=== PATIENT | female | born 1950 | race Caucasian/White ===

== ENCOUNTER 2023-01-21 09:19 | Inpatient (IN) | payer MEDICARE, MEDICAID, SELFPAY ==
[2023-01-21] VITALS (84 sets, daily range): BP systolic 131–198; BP diastolic 82–115; PULSE 90–140; RESP 11–25; TEMP 36.4–37; O2SAT 93–100; BMI 25.3
--- NOTE | 2023-01-21 | ECHO_ITS ---
Patient Info Name: Aggie Donald Age: 73 years : 1950 Gender: Female Ht: 65 in Wt: 152 lbs BSA: 1.79 m2 HR: 102 bpm BP: 196 / 101 mmHg Heart Rhythm: Sinus Rhythm, Tachycardia Technical Quality: Fair Exam Date: 01/21/2023 3:29 PM Exam Location: [facility]am Room: [facility] ED 6 Patient Status: Emergency Admit Date: 01/21/2023 Staff Ordering Physician: Trista Downey PA-C Vice President Consulting Services: Bibi Fu RDCS Attending Provider: Trista Downey PA-C Referring Physician: Shayan GALLARDO; Exam Type: CA echo doppler w bubble study Study Info Indications - RENAL INFARCT POS TROP APHASIA Complete two-dimensional, color flow and Doppler transthoracic echocardiogram is performed with agitated saline. Contrast/Agitated Saline Contrast/Ag. Saline: Agitated Saline Amount: 20.00 ml Existing IV Access: Yes IV Access Condition: patent with no signs of infiltration Summary 1. Left ventricular chamber dimension is normal. 2. Left ventricular systolic function is hyperdynamic, estimated at >70%. 3. There is mildly increased left ventricular wall thickness. 4. The left ventricular diastolic function is indeterminate. 5. No evidence for right to left shunt with color flow Doppler nor with injection of agitated saline with or without Valsalva. Left Ventricle Left ventricular chamber dimension is normal. Left ventricular systolic function is hyperdynamic, estimated at >70%. There is mildly increased left ventricular wall thickness. The left ventricular diastolic function is indeterminate. Right Ventricle Right ventricular chamber dimension is normal. Right ventricular systolic function is normal. Left Atria Left atrial chamber dimension is normal. Right Atria Right atrial chamber dimension is normal. Atrial Septum No evidence for right to left shunt with color flow Doppler nor with injection of agitated saline with or without Valsalva. Aortic Valve The aortic valve is trileaflet. There is mild aortic valve sclerosis. There is no aortic valve stenosis. There is no aortic valve regurgitation. Pulmonic Valve The pulmonic valve is not well visualized. There is trace pulmonic regurgitation. Mitral Valve The mitral valve has thickened leaflets. There is trace mitral valve regurgitation. The mitral valve annulus is moderately calcified. Tricuspid Valve The tricuspid valve leaflets are normal. There is mild tricuspid valve regurgitation. No pulmonary hypertension, estimated pulmonary arterial systolic pressure is 32 mmHg. Pericardium/Pleural The pericardium appears epicardial fat pad. There is small pericardial effusion. Left pleural effusion. Inferior Vena Cava Normal inferior vena cava with >50% collapse upon inspiration consistent with normal right atrial pressure, 5 mmHg. Aorta The aortic root size at the sinus of Valsalva is normal. Left Ventricular Outflow Tract Name Value Normal LVOT 2D LVOT Diameter 2.0 cm LVOT Doppler LVOT Peak Gradient 5 mmHg LVOT Mean Gradient 3 mmHg LVOT VTI 20 cm LVOT VTI/AV VTI Ratio
--- NOTE | ~2023-01-21 | CT_ITS ---
EXAMINATION: CT brain wo con DATE: 01/21/2023 10:20 INDICATION: Aphasia. Weakness. Altered mental status. TECHNIQUE: Computed tomography (CT) of the head was performed without intravenous contrast. The mA wa s adjusted according to patient size. Iterative reconstruction technique was employed. The dose-lengt h product was 605.33 mGy-cm. COMPARISON: None FINDINGS: There is an old infarct in right frontal lobe. There is an old infarct in posterior left fr ontal lobe. There are scattered areas of low attenuation in the cerebral white matter. There is no in tracranial hemorrhage, acute infarction, or abnormal intracranial mass lesion. The ventricles are nor mal in size. There is mucosal thickening in right sphenoid sinus. The mastoid air cells are normal. T he orbits are normal. IMPRESSION: 1. Old infarcts involving the frontal lobes. 2. Mild nonspecific cerebral white matter disease, which likely represents chronic small vessel ische danial disease. Reviewed, dictated and finalized at location A. IMPRESSION: 1. Old infarcts involving the frontal lobes. 2. 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
--- NOTE | ~2023-01-21 | CT_ITS ---
EXAMINATION: CTA brain carotid DATE: 01/21/2023 17:52 INDICATION: expressive aphasia TECHNIQUE: Computed tomographic angiography (CTA) of the head was performed with 100 mL Omnipaque-350 intravenous contrast. Automated exposure control and iterative reconstruction technique were employe d. The dose-length product was 1172.54 mGy-cm. Maximum intensity projection and volume rendered 3D-re constructions were created by the technologist on a separate workstation. COMPARISON: CT brain, 01/21/2023. FINDINGS: CTA HEAD: No large vessel occlusion, aneurysm, high flow vascular malformation, nidus or extravasation. Atheros clerotic calcification in the cavernous carotids, without significant stenosis. Patent cerebral veins CTA NECK: Aortic arch and proximal great vessels: Mild atherosclerotic calcifications at the visualized aortic arch and proximal great vessels. Right common carotid, carotid bifurcation, and internal carotid artery: No plaque.There is 0% stenosi s of the proximal right internal carotid artery relative to normal distal artery lumen diameter (NASC ET criteria). Left common carotid, carotid bifurcation, and internal carotid artery: No plaque.There is 0% stenosis of the proximal left internal carotid artery relative to normal distal artery lumen diameter (NASCET criteria). Vertebral arteries: No significant plaque or stenosis. Other findings: Upper and mid esophageal wall thickening. Paraseptal emphysematous change. Biapical p leural scar. Right sphenoid sinus mucosal thickening. Right inferior maxillary retention cyst or poly p. Multiple periapical lucencies. Standard changes in the cervical spine. IMPRESSION: No acute large vessel infarct. No severe carotid or vertebral artery stenosis. Esophageal wall thicke kanu, consider referral for endoscopy. Periodontal disease. Reviewed, dictated and finalized at location K. IMPRESSION: No acute large vessel infarct. No severe carotid or vertebral artery stenosis. Esophageal wall thickening, consider referral for endoscopy. Periodontal diseas e.
--- NOTE | ~2023-01-21 | MR_ITS ---
EXAMINATION: MR brain/brain stem wo/w con DATE: 01/22/2023 10:47 INDICATION: Expressive aphasia. Altered mental status. TECHNIQUE: Magnetic resonance imaging (MRI) of the brain and brainstem was performed without and with 13 mL MultiHance intravenous contrast. COMPARISON: Head CT 01/21/2023 FINDINGS: There is an old infarct involving right frontal lobe. There is an old infarct in left occip ital lobe. There is an old infarct involving posterior left frontal lobe. There are scattered areas o f nonspecific increased T2-weighted signal intensity in the cerebral white matter, which is within no rmal limits for the patient's age. There is no intracranial hemorrhage, acute infarction, or abnormal intracranial mass lesion. The ventricles are normal in size. There is mild mucosal thickening in sph enoid sinus. The orbits are normal. The mastoid air cells are normal. IMPRESSION: 1. Old infarcts involving the frontal lobes and left occipital lobe. Reviewed, dictated and finalized at location A.
--- NOTE | ~2023-01-21 | CT_ITS ---
EXAMINATION: CTA chest PE abdomen pel DATE: 01/21/2023 11:37 INDICATION: Low abdominal pain. Nausea and vomiting. Tachycardia. TECHNIQUE: Computed tomography angiography (CTA) of the chest was performed with 100 mL Omnipaque-350 intravenous contrast timed to evaluate the pulmonary arteries. Coronal maximum intensity projection 3D-reconstructions were created by the technologist. Computed tomography (CT) of the abdomen and pelv is was performed with intravenous contrast. Automated exposure control and iterative reconstruction t echnique were employed. The dose-length product was 691.14 mGy-cm. COMPARISON: None. FINDINGS: CTA chest: There is mild emphysema. Calcified right lung nodules and calcified right hilar lymph node s are consistent with old granulomatous disease. No pleural effusion. The heart size is normal. No pe ricardial effusion. There is no pulmonary embolus. There is mild thoracic spondylosis. CT abdomen and pelvis: The liver is normal. There is a gallstone in the gallbladder, which is normal in size. Calcifications in the spleen are consistent with old granulomatous disease. The pancreas, ad renal glands, are normal. The kidneys demonstrate striated nephrograms with associated mild volume lo ss. There is calcified atherosclerosis of the aorta and many of the other arteries. There is divertic ulosis of the colon without evidence of diverticulitis. There are no dilated loops of bowel. The appe ndix is normal. There are no pathologically enlarged lymph nodes. There is no free intraperitoneal fl uid. There is severe lower lumbar spondylosis. There is a chronic compression fracture of L1. IMPRESSION: 1. Bilateral striated nephrograms with associated mild volume loss, which may be seen with subacute p yelonephritis or subacute infarcts. 2. No pulmonary embolus. Reviewed, dictated and finalized at location A. IMPRESSION: 1. Bilateral striated nephrograms with associated mild volume loss, which may b e seen with subacute pyelonephritis or subacute infarcts. 2. No pulmonary embolus.
--- NOTE | ~2023-01-21 | XR_ITS ---
EXAMINATION: XR chest 2V DATE: 01/21/2023 10:26 INDICATION: Altered mental status. Vomiting. TECHNIQUE: Frontal and lateral views of the chest were obtained. COMPARISON: None. FINDINGS: There is mild scarring at the lung apices. No pleural effusion or pneumothorax. The heart s ize is normal. IMPRESSION: 1. Mild scarring at the lung apices. Reviewed, dictated and finalized at location A.
[2023-01-21 09:34] LABS: Glucose Point of Care > 500 mg/dl (65-105)
--- NOTE | 2023-01-21 09:41 | ECG_ITS ---
Measurements Intervals [place] Rate: 138 P: 77 MI: 146 QRS: 31 QRSD: 74 T: 80 QT: 330 QTc: 500 Interpretive Statements SINUS TACHYCARDIA NONSPECIFIC ST & T-WAVE ABNORMALITY- DIFFUSE LEADS BASELINE ARTIFACT- I, II, AVR, AVL, AVF, V1, V3, V6 ABNORMAL ECG NO PREVIOUS ECG AVAILABLE FOR COMPARISON Electronically Signed On 01-21-2023 10:19:31 CDT by Chalino Navarro D.O.
--- NOTE | 2023-01-21 09:43 | ED.WEAKNESS ---
HPI - Weakness General Chief complaint: Weakness <AMY Valerio Last Filed: 01/21/23 22:56> Stated complaint: weakness, decreased appetite <AMY Valerio Last Filed: 01/21/23 22:56> Time Seen by Provider: 01/21/23 09:25 <AMY Valerio Last Filed: 01/21/23 22:56> Source: patient and family <AMY Valerio Last Filed: 01/21/23 22:56> Mode of arrival: EMS <AMY Valerio Last Filed: 01/21/23 22:56> Limitations: altered mental status and clinical condition <AMY Valerio Last Filed: 01/21/23 22:56> History of Present Illness HPI Narrative: Patient is a 73 y/o female who presents to the ED via EMS with multiple complaints. History limited d/t patient's clinical condition, she is unable to provide much information. She complains of being cold. at bedside assisted in providing patient's information. He reports patient has been weak, somewhat lethargic, and complained of cold shaking chills for the last 3 days. He notes he has had to help her to walk and use the bathroom, which is not normal for her. He reports she has had intermittent slurred speech since yesterday afternoon. Patient does report having a few episodes of vomiting over the last 3 days, last episode this morning. reports she has not eaten in the last 2 days. She c/o nausea and pain throughout her lower abdomen currently. Denies CP, SOB, LAWS. <AMY Valerio Last Filed: 01/21/23 22:56> Related Data Allergies/Adverse reactions: Allergies Allergy/AdvReac Type Severity Reaction Status Date / Time amoxicillin [From Augmentin] Allergy Unknown Verified 01/21/23 10:04 clavulanic acid Allergy Unknown Verified 01/21/23 10:04 [From Augmentin] <AMY Valerio Last Filed: 01/21/23 22:56> Review of Systems Review of Systems: CONSTITUTIONAL: See HPI. CARDIOVASCULAR: Denies chest pain. RESPIRATORY: Denies cough or dyspnea. GASTROINTESTINAL: See HPI. GENITOURINARY: Denies dysuria or hematuria. NEUROLOGIC: See HPI. <Trista Downey PA-C - Last Filed: 01/21/23 22:56> ROS unobtainable: Yes unobtainable due to medical condition <Trista Downey PA-C - Last Filed: 01/21/23 22:56> PMFSH Past Medical History Medical History: Medical History Essential (primary) hypertension Fibromyalgia Generalized anxiety disorder <Trista Downey PA-C - Last Filed: 01/21/23 22:56> Surgical History Surgical History: Surgical History History of tubal ligation (~1989) <Trista Downey PA-C - Last Filed: 01/21/23 22:56> Family History Family History: Family History Grandparent Acute myocardial infarction Cerebrovascular accident Heart disease Mother Colon polyp Diabetes mellitus Pancreatic adenocarcinoma Other Depression Hypertension <Trista Downey PA-C - Last Filed: 01/21/23 22:56> Social History Social History: Social History Smoking status: Never smoker Second hand tobacco smoke exposure: No Smoking end date: 09/02/85 Alcohol intake: never Substance use: never Substance use type: marijuana Living arrangements: with family Occupation/Education: retired Gender identity (if verbalized by the patient): Female Spiritual care concerns: No Agree to blood products: Yes <Trista Downey PA-C - Last Filed: 01/21/23 22:56> Exam Narrative: GENERAL: Ill appearing, well-nourished, rigors. HEAD: Normocephalic, atraumatic. EYES: PERRLA/EOMI, conjunctiva clear. Mild chemosis noted to margarita conjunctiva. No nystagmus. NECK: Supple. No adenopathy, no masses. No meningeal signs. RESPIRATORY:
[2023-01-21] MEDS: SODIUM CHLORIDE 0.9% IV 1,000 ML 999 ML IV CONT ×3 (09:55→12:24)
[2023-01-21 10:02] LABS: Alveolar/Arterial O2 Gradient 31.8 mmHg; Base Excess ABG -2.1 mEq/l (+/-2.0); Carboxyhemoglobin 1.1 % THb (0-2.0); Fractional Inspired Oxygen 21 %; HCO3 ABG 16.5 mEq/l (22.0-26.0); Methemoglobin ABG 0.4 %THb (0-1.5); Oxygen Content ABG 22.7 %vol (16.0-22.0); Oxygen Saturation ABG 98.3 % (95.0-100.0); Oxyhemoglobin 96.4 % THb (90.0-100.0); PO2 ABG 96.1 mmHg (80.0-100.0); PO2 FiO2 Ratio Arterial Blood 4.58 %; Reduced Hemoglobin 2.1 %THb (0-5.0); Total Hemoglobin 16.7 g/dL (12.0-18.0)
[2023-01-21 10:04] LABS: pH ABG 7.575 (7.350-7.450)
[2023-01-21 10:05] LABS: Modified Allen's Test Pass; PCO2 ABG 18.2 mmHg (35.0-45.0); Site Drawn RIGHT RADIAL
[2023-01-21 10:23] LABS: Basophils Absolute Auto 0.1 K/mm3 (0.0-0.1); Basophils Percent Auto 0.2 % (0.2-1.2); Eosinophils Percent Auto 0.1 % (0-4.4); Hematocrit 48.1 % (37.0-47.0); Hemoglobin 17.1 g/dL (12.0-15.0); Immature Granulocyte Absolute 1.24 K/mm3 (0.00-0.031); Immature Granulocyte Percent A 3.6 % (0-0.5); Lymphocytes Absolute Auto 2.19 K/mm3 (0.9-3.2); Lymphocytes Percent Auto 6.3 % (18.3-44.2); Mean Corpuscular HGB Conc 35.6 g/dl (32-36); Mean Corpuscular Hemoglobin 29.6 pg (26-34); Mean Corpuscular Volume 83.2 fl (80-100); Mean Platelet Volume 9.7 fl (7.4-10.4); Monocytes Percent Auto 5.8 % (2.6-8.5); Neutrophils Absolute Auto 29.2 K/mm3 (1.3-6.7); Platelet Count Result 474 k/mm3 (150-375); Red Blood Count 5.78 M/mm3 (4.2-5.4); Red Cell Distribution Width 12.3 % (11.5-14.5); White Blood Count 34.7 K/mm3 (4.5-10.0)
[2023-01-21 10:33] LABS: Lipase 58 U/L (23-300); Magnesium 2.1 mg/dL (1.6-2.3); Phosphorus 2.1 mg/dL (2.5-4.5)
[2023-01-21 10:34] LABS: Alanine Aminotransferase 21 U/L (6-35); Albumin Level 4.8 g/dL (3.5-5.1); Alkaline Phosphatase 116 U/L (38-126); Anion Gap 21 mmol/L (8-16); Aspartate Amino Transferase 26 U/L (14-36); Beta-Hydroxybutyrate/Acetoacetate 3.41 mmol/L (0.02-0.27); Blood Urea Nitrogen 32 mg/dL (7-17); Calcium 9.8 mg/dL (8.4-10.2); Carbon Dioxide 16 mmol/L (22-30); Chloride 95 mmol/L (98-107); Creatine Kinase 191 U/L (30-135); Estimated CRCL calculation 32 ml/min; Estimated Glomerular Filt Rate 40; Glucose 489 mg/dL (65-110); Potassium 3.8 mmol/L (3.4-5.0); Sodium 132 mmol/L (137-145)
[2023-01-21 10:48] LABS: Troponin I 0.202 ng/mL (0.000-0.034)
[2023-01-21 11:03] LABS: Thyroid Stimulating Hormone 0.866 uIU/mL (0.465-4.680)
[2023-01-21 11:04] LABS: INR 1.1; Prothrombin Time 14.5 Seconds (11.1-14.7)
[2023-01-21 11:05] LABS: Partial Thromboplastin Time 27.3 SECONDS (22.3-36.8)
[2023-01-21 11:21] LABS: Appearance Urine Clear (Clear); Bacteria Urine None Seen /hpf; Bilirubin Urine Negative (Negative); Blood Urine 1+ (Negative); Color Urine Yellow (Yellow); Glucose Urine UA 3+ mg/dL (Negative); Granular Casts Urine Present /lpf; Hyaline Casts Urine Present /lpf; Ketones Urine 2+ mg/dL (Negative); Leukocyte Esterase Ur Negative LEU/UL (Negative); Nitrate Urine Negative (Negative); Protein Urine 1+ mg/dL (Negative); RBC Urine 0-2 /hpf (0-2); Specific Grav Ur 1.034 (1.001-1.035); Squamous Epithelial Cell Urine None seen /hpf (Few); Transitional Epi Cells Urine Present /hpf (None Seen); Urobilinogen Urine 0.2 mg/dL (<2.0); WBC Urine 0-5 /hpf; pH Urine 5.5 (5.0-9.0)
[2023-01-21 11:25] LABS: Add Urine Microscopic? YES
[2023-01-21 12:47] LABS: Hemoglobin A1C 10.7 % (<5.7)
[2023-01-21] MEDS: METOPROLOL TARTRATE INJ 5 MG/5 ML VIAL IV PUSH (12:48)
[2023-01-21 12:51] LABS: Glucose Point of Care 356 mg/dl (65-105)
[2023-01-21 13:17] LABS: Reflex Lactic Acid Yes or No Add Lactic
[2023-01-21 13:36] LABS: Lactic Acid Reflex 2.3 mmol/L (0.7-2.0)
[2023-01-21 13:40] LABS: Anion Gap 14 mmol/L (8-16); Blood Urea Nitrogen 29 mg/dL (7-17); Carbon Dioxide 18 mmol/L (22-30); Chloride 103 mmol/L (98-107); Estimated CRCL calculation 41 ml/min; Estimated Glomerular Filt Rate 55; Glucose 330 mg/dL (65-110); Potassium 3.9 mmol/L (3.4-5.0); Sodium 135 mmol/L (137-145)
[2023-01-21 13:47] LABS: Troponin I 0.203 ng/mL (0.000-0.034)
[2023-01-21] MEDS: METOPROLOL TARTRATE 50 MG TAB 100 MG PO (14:18)
[2023-01-21 17:03] LABS: Troponin I 0.349 ng/mL (0.000-0.034)
--- NOTE | 2023-01-21 17:26 | ECG_ITS ---
Measurements Intervals [place] Rate: 100 P: 56 AR: 176 QRS: 33 QRSD: 72 T: 57 QT: 339 QTc: 439 Interpretive Statements SINUS TACHYCARDIA BASELINE ARTIFACT- III BORDERLINE ECG COMPARED TO ECG 01/21/2023 09:29:35 NO SIGNIFICANT CHANGES Electronically Signed On 01-21-2023 21:34:38 CDT by Chalino Navarro D.O.
[2023-01-21 17:31] LABS: Glucose Point of Care 289 mg/dl (65-105)
[2023-01-21] MEDS: ASPIRIN 81 MG CHEWABLE TABLET 324 MG PO (18:06)
[2023-01-21] MEDS: hydrALAZINE HCL 20 MG/ML VIAL 10 MG IV PUSH (18:09)
--- NOTE | 2023-01-21 18:56 | PM.IMHP ---
H&P: HPI History of Present Illness Date/Time: 01/21/23 19:15 Chief Complaint: Weakness. Narrative: This is a 73-year-old female with history of arthritis, fibromyalgia, and hypertension who presented to the emergency department via EMS from home for evaluation of weakness. She has some expressive aphasia and thus some of the following history is supplemented via a review of her electronic medical records as well as history obtained from her . She does well when asked yes or no questions however. She has not been feeling well for several days with generalized malaise, progressive weakness, lethargy, and chills. Her appetite has been poor and she has not had much to eat the last 2 days. She complains of nausea and some generalized abdominal pain of which she is unable to further qualify. She has gotten progressively more weak and her has been assisting her with ambulation to the bathroom. Yesterday he noticed that her speech seemed to be a bit slurred and that she was not able to communicate as usual. She denies fever, headache, sinus congestion, sore throat, cough, chest pain, vomiting, diarrhea, and dysuria. She has chronic neck pain which is unchanged. She has no known sick contacts. She denies blurry vision, focal weakness, paresthesias, facial droop, and difficulty speaking and swallowing. She denies drug ingestion, fall, and syncope. In the emergency department: Blood pressure was as high as 196/101. She was given IV hydralazine and her p.o. metoprolol with minimal improvement her blood pressures. Labs were significant for white blood cell count of 34.7, hemoglobin 17.1, sodium 132, potassium 3.8, chloride 95, carbon dioxide 16, anion gap 21, BUN 32, creatinine 1.30, glucose 489, lactic acid 4.0, total CK 191, troponin 0.202, beta hydroxybutyrate 3.41. UA was positive for 1+ protein, 3+ glucose, 2+ ketones, and 1+ blood. Brain CT showed old infarcts involving the frontal lobes (unknown to the patient and her ) and mild nonspecific cerebral white matter disease. CTA of the chest, abdomen, and pelvis showed bilateral striated nephrograms with associated mild volume loss which may be seen with subacute pyelonephritis or subacute infarcts. No pulmonary embolism noted. CT of the head and neck showed no acute large vessel infarct or severe carotid or vertebral artery stenosis. Echocardiogram showed normal LV chamber size, hyperdynamic LV systolic function with an EF estimated greater than 70%, mildly increased LV wall thickness, and indeterminate LV diastolic function. There was no evidence of shunt. Review of Systems Review of Systems: Twelve systems were reviewed and are negative except for as per HPI. [facility] Past Medical History Medical History Essential (primary) hypertension Fibromyalgia Generalized anxiety disorder Surgical History Surgical History History of tubal ligation (~1989) Family History Family History Grandparent Acute myocardial infarction Cerebrovascular accident Heart disease Mother Colon polyp Diabetes mellitus Pancreatic adenocarcinoma Other Depression Hypertension Social History Social History (Updated 01/22/23 @ 21:07 by Lexie Reeder PA-C) Social History: Surrogate medical decision maker: Shravan Ramsay, spouse. Code status: Full code. Smoking status: Former smoker Second hand tobacco smoke exposure: No Smoking end date: 09/02/85 Alcohol intake: never Substance use: current Substance use type: marijuana Living arrangements: with family Occupation/Education: retired Spiritual care concerns: No Agree to blood products: Yes Meds Home Medications and Allergies Home Medications Medication Instructions Recorded Confirmed Type clonidine HCl 0.3 mg tablet 0.3 mg PO BID
--- NOTE | 2023-01-21 18:58 | ADMGEN ---
This patient, Aggie Donald, was admitted to IMU Room 205-02 on 01/21/23 at 1851. Patient/family oriented to hospital policies and general routines including ID bracelet, bed and alarms, visiting hours, pain management, procedures, bathroom and other care routines, personal items, smoking policy, room service/diet, and visiting hours. Information on how to activate the Rapid Response Team has been discussed. Patient/Family are encouraged to report perceived risks to care and to ask questions if they do not understand what they are told or what they should do.
[2023-01-21] MEDS: CEFEPIME 1 GM/NS 50 ML 1 GM/50 ML BAG IVPB (19:50)
[2023-01-21 20:12] LABS: Glucose Point of Care 304 mg/dl (65-105)
[2023-01-22] VITALS (18 sets, daily range): BP systolic 132–199; BP diastolic 54–93; PULSE 60–94; RESP 18–20; TEMP 36–36.6; O2SAT 97–100
[2023-01-22] MEDS: cloNIDine HCL 0.1 MG TABLET 0.3 MG PO ×3 (01:57→18:26)
[2023-01-22] MEDS: LACTATED RINGERS 1,000 ML 125 ML IV CONT (03:01)
[2023-01-22 03:10] LABS: Glucose Point of Care 262 mg/dl (65-105)
[2023-01-22 05:18] LABS: Basophils Absolute Auto 0.1 K/mm3 (0.0-0.1); Basophils Percent Auto 0.2 % (0.2-1.2); Hematocrit 43.7 % (37.0-47.0); Hemoglobin 15.2 g/dL (12.0-15.0); Immature Granulocyte Absolute 0.39 K/mm3 (0.00-0.031); Immature Granulocyte Percent A 1.2 % (0-0.5); Mean Corpuscular HGB Conc 34.8 g/dl (32-36); Mean Corpuscular Hemoglobin 29.6 pg (26-34); Mean Corpuscular Volume 85.2 fl (80-100); Mean Platelet Volume 9.6 fl (7.4-10.4); Monocytes Absolute Auto 1.8 K/mm3 (0.1-0.6); Monocytes Percent Auto 5.5 % (2.6-8.5); Neutrophils Absolute Auto 27.7 K/mm3 (1.3-6.7); Neutrophils Percent Auto 85.1 % (45.5-73.1); Platelet Count Result 362 k/mm3 (150-375); Red Blood Count 5.13 M/mm3 (4.2-5.4); Red Cell Distribution Width 12.4 % (11.5-14.5); White Blood Count 32.6 K/mm3 (4.5-10.0)
[2023-01-22 05:24] LABS: Estimated CRCL calculation 45 ml/min; Estimated Glomerular Filt Rate > 60
[2023-01-22 05:25] LABS: Ammonia < 9 umol/L (9-30)
[2023-01-22 05:28] LABS: Alanine Aminotransferase 17 U/L (6-35); Albumin Level 4.1 g/dL (3.5-5.1); Alkaline Phosphatase 92 U/L (38-126); Anion Gap 10 mmol/L (8-16); Aspartate Amino Transferase 34 U/L (14-36); Bilirubin,Total 0.6 mg/dL (0.2-1.3); Blood Urea Nitrogen 27 mg/dL (7-17); CRP 2.4 mg/dL (<1.0); Calcium 8.8 mg/dL (8.4-10.2); Carbon Dioxide 25 mmol/L (22-30); Chloride 102 mmol/L (98-107); Estimated CRCL calculation 45 ml/min; Estimated Glomerular Filt Rate > 60; Glucose 254 mg/dL (65-110); Potassium 3.8 mmol/L (3.4-5.0); Sodium 137 mmol/L (137-145)
[2023-01-22 06:08] LABS: Thyroid Stimulating Hormone Reflex 0.514 uIU/mL (0.465-4.68)
[2023-01-22 07:39] LABS: Platelet Estimate Adequate (Adequate); Schistocytes None Seen (NORMAL)
[2023-01-22 08:30] LABS: Glucose Point of Care 249 mg/dl (65-105)
[2023-01-22] MEDS: INSULIN GLARGINE (*BKC) 100 UNITS/ML 17 UNITS SUB-Q (09:46)
[2023-01-22] MEDS: METOPROLOL TARTRATE 50 MG TAB 100 MG PO ×2 (09:51→20:39)
--- NOTE | 2023-01-22 10:34 | WPDNEURCNPN ---
Assessment and Plan Assessment and plan (1) Hypertensive urgency: Code(s): I16.0 - Hypertensive urgency Status: Acute (2) Diabetic ketoacidosis: Code(s): E11.10 - Type 2 diabetes mellitus with ketoacidosis without coma Status: Acute (3) Expressive aphasia: Code(s): R47.01 - Aphasia Status: Acute (4) Severe sepsis: Code(s): A41.9 - Sepsis, unspecified organism; R65.20 - Severe sepsis without septic shock Status: Acute Plan Aggie Donald is a 73 year old female with a history of fibromyalgia, hypertension, anxiety presenting due to altered mental status and aphasia. MRI brain was negative for acute stroke, but did show chronic strokes in bifrontal regions. She does have multiple ongoing medical issues presently including hypertensive urgency, recent diagnosis of mild DKA, and concern for underlying infection that could be the etiology. - Given prior strokes, recommend daily aspirin 81mg - Check LDL, may need statin (goal <70) Consult date: 01/22/23 Reason for consult: Aphasia HPI: Aggie Donald is a 73 year old female with a history of fibromyalgia, hypertension, anxiety presenting due to progressive weakness and aphasia. Patient had not been feeling well for several days. She had progressive generalized weakness, lethargy, chills, poor appetite, nausea, abdominal pain. She had gotten progressively week to the point that has to assist her to go to the bathroom. On the day prior to presentation, he noted that his speech was a little slurred and that she was not able to communicate as well. She was taken to the emergency department where her blood pressure was elevated to 196/101 on presentation. She received PRN dose of hydralazine and metoprolol without significant improvement in her BP. She was noted to be in mild DKA, and was newly diagnosed with diabetes (A1c 10.7). EKG showed sinus tachycardia. She was noted to have expressive aphasia but no other focal deficits on her exam per ED provider. 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 CTA brain/carotid showed no significant stenosis or occlusion. CT chest, abdomen, pelvis showed findings suggestive of subacute pyelonephritis vs subacute infarcts. Due to concerns for embolic source of renal infarct, echocardiogram was done which showed normal LV systolic function with EF > 70% and no evidence of shunt/clot. Patient was started on cefepime and vancomycin due to concurrent concerns for sepsis and admitted. Due to concerns of aphasia, MRI brain is being done this morning which showed old infarcts in the frontal lobes and left occipital lobe. Review of Systems Constitutional: Constitutional: Reports lethargy and Reports weakness Eyes: Eyes: Reports no additional eye complaints ENT: Reports system reviewed and no additional complaints, except as documented Cardiovascular: Cardiovascular: Reports no additional cardiovascular complaints Respiratory: Respiratory: Reports no additional respiratory complaints Gastrointestinal: Gastrointestinal: Reports abdominal pain and Reports vomiting Genitourinary: Genitourinary: Reports urinary incontinence Musculoskeletal: Musculoskeletal: Reports no additional musculoskeletal complaints Integumentary/Breasts: Skin/Breast: Reports system reviewed and no additional complaints, except as docu Neurologic: Reports as per HPI Psychiatric: Psychiatric: Reports anxiety and Reports depression PMFSH Past Medical History Medical History Essential (primary) hypertension Fibromyalgia Generalized anxiety disorder Surgical History Surgical History History of tubal ligation (~1989) Family History Family History Grandparent Acute myocardial infarction Cerebrovascular accident Heart disease Mother Colon polyp Diabet
[2023-01-22] MEDS: CEFEPIME 1 GM/NS 50 ML 1 GM/50 ML BAG IVPB ×2 (10:59→20:00)
--- NOTE | 2023-01-22 11:05 | PM.IMPN ---
Progress Note: A&P Assessment and Plan (1) Diabetic ketoacidosis: Code(s): E11.10 - Type 2 diabetes mellitus with ketoacidosis without coma Status: Acute Assessment and Plan: Anion gap is improved. Blood sugars improved. (2) New onset type 2 diabetes mellitus: Code(s): E11.9 - Type 2 diabetes mellitus without complications Status: Acute Assessment and Plan: Patient has new onset diabetes with an A1c of 10.7%. She has been started on basal insulin. Initiate sliding scale insulin, Accu-Cheks, and hypoglycemic protocol. Dietitian and market specialist consulted. (3) Lactic acidosis: Code(s): E87.20 - Acidosis, unspecified Status: Acute Assessment and Plan: Improved. (4) Hypertensive urgency: Code(s): I16.0 - Hypertensive urgency Status: Acute Assessment and Plan: Continue to monitor blood pressure. Slowly reduce blood pressure with medications. (5) Encephalopathy: Code(s): G93.40 - Encephalopathy, unspecified Status: Acute Assessment and Plan: Exact etiology is not entirely clear. Differential diagnosis includes hypertensive encephalopathy, toxic metabolic encephalopathy, versus other. CVA is also a possibility given expressive aphasia. Consider LP if no improvement by morning but encephalitis/meningitis seems unlikely.. Neurology has been consulted. (6) Dehydration: Code(s): E86.0 - Dehydration Status: Acute Assessment and Plan: Will slow down IV fluids. (7) Leukocytosis: Code(s): D72.829 - Elevated white blood cell count, unspecified Status: Acute Assessment and Plan: Again, there is no clear evidence to suggest active infection. May be demargination. Continue antibiotics pending cultures. IV vanc and cefepime. (8) Non-ST elevated myocardial infarction (non-STEMI): Code(s): I21.4 - Non-ST elevation (NSTEMI) myocardial infarction Status: Acute Assessment and Plan: Troponins have been elevated but are flat. May very well be related to markedly elevated blood pressures. Continue to trend to peak. Echocardiogram ordered. (9) Abnormal computed tomography of abdomen and pelvis: Code(s): R93.5 - Abnormal findings on diagnostic imaging of other abdominal regions, including retroperitoneum Status: Acute Assessment and Plan: Bilateral striated nephrograms with associated mild volume loss on CT which may be subacute pyelonephritis or subacute infarcts. She has been started on empiric antibiotics as detailed above. Hold on anticoagulation for now as she is not having any pain and her blood pressures are significantly elevated. (10) Expressive aphasia: Code(s): R47.01 - Aphasia Status: Acute Assessment and Plan: Brain MRI ordered for a.m.. Neurology consulted for their opinion. Subjective Date/time seen: 01/22/23 11:05 Interval history: No new complaints. Labs reviewed. MRI still pending. Exam Narrative: General: Ill-appearing female in the semi-Brenner position in bed in no acute distress. Weight: 69 kg. BMI: 25.3. HEENT: Normocephalic, atraumatic. PERRL, EOMI. Sclera anicteric. Conjunctiva mildly injected. Mild chemosis. Dry mucous membranes. Neck: Supple. No lymphadenopathy, JVD, obvious thyromegaly, or nuchal rigidity. Respiratory: Respirations are nonlabored and lungs are clear to auscultation. Cardiovascular: Regular rate and rhythm with S1-S2. Gastrointestinal: Abdomen is soft, nontender, and nondistended with positive bowel sounds. No CVA tenderness. Skin: Warm and dry. No rash or lesions on limited exam. Extremities: No cyanosis, clubbing, or edema. Radial and pedal pulses intact. Neurological: Alert to name, date of , and age. She is aware that she is at the hospital but she has difficulties telling me why she was brought here today. She cannot provide me
[2023-01-22 12:00] LABS: Glucose Point of Care 255 mg/dl (65-105)
[2023-01-22 13:36] LABS: LDL Cholesterol Direct 116 mg/dL
[2023-01-22 14:28] LABS: Glucose Point of Care 238 mg/dl (65-105)
--- NOTE | 2023-01-22 14:50 | PM.CNCAR ---
Assessment and Plan Assessment and plan (1) Elevated troponin: Code(s): R77.8 - Other specified abnormalities of plasma proteins Status: Acute Assessment and Plan: Troponin levels elevated at 0.202, 0.203, 0.349. EKG with no ischemic ST or T wave abnormalities. She denies any chest pain. Elevated troponin may be secondary to hypertension. This does not represent ACS/plaque rupture. No indication for ischemic workup at this time. Echo showed hyperdynamic LVSF, EF >70%. Recommend blood pressure control. (2) Hypertensive urgency: Code(s): I16.0 - Hypertensive urgency Status: Acute Assessment and Plan: Blood pressure is uncontrolled. P.r.n. hydralazine has been added by the hospitalist as well as lisinopril. First dose of lisinopril will be given toward morning. If blood pressure remains elevated, would recommend increasing lisinopril then adding a calcium channel comfort while decreasing and eventually discontinuing metoprolol if possible (would prefer to use first line hypertensive agents especially in light of her diabetes, KENNEDY preferred over BB). Want to avoid significant rapid reduction in SBP. Cardiology will sign off. Please call with questions. History of Present Illness History of Present Illness Consult date/time: 01/22/23 14:50 Requesting physician: Trista Downey PA-C Consult reason: Other (elevated troponin) Reason For Visit: Severe Sepsis,New Onset DM,Elevated Troponin,Renal Narrative: Ms. Donald is a 73-year-old female with a history of fibromyalgia, osteoarthritis, and hypertension who presented to the emergency department yesterday for an evaluation for weakness. Patient states she was in her normal state of health prior to developing symptoms of weakness, chills, fever, and lethargy. She does not remember being brought to the hospital so some of the history was obtained from family members at the bedside. Family members also noted that she was having trouble finding words and her speech had become slurred. 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 Patient denies any known history of CVA. She was also noted to be significantly hypertensive upon arrival and has remained hypertensive with a systolic blood pressure in the 190s. Labs were significant for a white blood cell count of 34.7, anion gap 21, BUN 32, creatinine 1.3, glucose 489, lactic acid 4.0, total CK 191. Troponin levels were also drawn and have been elevated at 0.202, 0.203, and 0.349. Cardiology has been asked to see her because of the elevated troponin levels. Patient denies any known cardiac history including congestive heart failure, arrhythmias, coronary artery disease, valvular heart disease. She denies any history of chest pain and is not having any chest pain currently. Review of Systems Review of Systems: All systems reviewed & are unremarkable except as noted in HPI and below [facility] Past Medical History Medical History Essential (primary) hypertension Fibromyalgia Generalized anxiety disorder Surgical History Surgical History History of tubal ligation (~1989) Family History Family History Grandparent Acute myocardial infarction Cerebrovascular accident Heart disease Mother Colon polyp Diabetes mellitus Pancreatic adenocarcinoma Other Depression Hypertension Social History Social History Smoking status: Never smoker Second hand tobacco smoke exposure: No Smoking end date: 09/02/85 Alcohol intake: never Substance use: never Substance use type: marijuana Living arrangements: with family Occupation/Education: retired Gender identity (if verbalized by th
[2023-01-22 14:53] LABS: Alveolar/Arterial O2 Gradient 28.8 mmHg; Base Excess ABG -1.4 mEq/l (+/-2.0); Fractional Inspired Oxygen 21 %; HCO3 ABG 22.1 mEq/l (22.0-26.0); Oxygen Content ABG 20.2 %vol (16.0-22.0); Oxygen Saturation ABG 96.2 % (95.0-100.0); PCO2 ABG 34.2 mmHg (35.0-45.0); PO2 FiO2 Ratio Arterial Blood 3.81 %; Total Hemoglobin 15.1 g/dL (12.0-18.0); pH ABG 7.429 (7.350-7.450)
[2023-01-22 14:54] LABS: Device ROOM AIR; Modified Allen's Test Unable to perform; Site Drawn RIGHT RADIAL
[2023-01-22] MEDS: hydrALAZINE HCL 20 MG/ML VIAL 10 MG IV PUSH ×2 (15:12→20:38)
[2023-01-22 16:30] LABS: Glucose Point of Care 237 mg/dl (65-105)
[2023-01-22 16:45] LABS: Anion Gap 10 mmol/L (8-16); Blood Urea Nitrogen 29 mg/dL (7-17); Calcium 8.2 mg/dL (8.4-10.2); Carbon Dioxide 22 mmol/L (22-30); Chloride 103 mmol/L (98-107); Estimated CRCL calculation 51 ml/min; Estimated Glomerular Filt Rate > 60; Glucose 243 mg/dL (65-110); Potassium 3.7 mmol/L (3.4-5.0); Sodium 135 mmol/L (137-145)
[2023-01-22] MEDS: LACTATED RINGERS 1,000 ML 50 ML IV CONT (18:26)
[2023-01-22 19:56] LABS: Glucose Point of Care 216 mg/dl (65-105)
[2023-01-22] MEDS: INSULIN ASPART (*BKC) 100 UNITS/ML SUB-Q (20:38)
[2023-01-22] MEDS: VANCOMYCIN 1,250 MG/NS 250 ML 1,250 MG/250 ML BAG 166.67 MG IVPB (20:38)
[2023-01-23] VITALS (19 sets, daily range): BP systolic 101–180; BP diastolic 50–78; PULSE 56–85; RESP 18–22; TEMP 35.6–36.6; O2SAT 95–100; BMI 25.4
[2023-01-23 04:28] LABS: Amphetamine Screen Urine Negative (Negative); Barbiturate Screen Urine Negative (Negative); Benzodiazepines Screen Urine Negative (Negative); Cannabinoid Screen Urine Positive (Negative); Cocaine Screen Urine Negative (Negative); Methadone Screen Urine Negative (Negative); Opiate Screen Urine Negative (Negative); Phencyclidine Screen Urine Negative (Negative)
[2023-01-23] MEDS: hydrALAZINE HCL 20 MG/ML VIAL 10 MG IV PUSH ×2 (04:33→09:21)
[2023-01-23 05:08] LABS: Estimated CRCL calculation 51 ml/min; Estimated Glomerular Filt Rate > 60
[2023-01-23 07:53] LABS: Glucose Point of Care 190 mg/dl (65-105)
[2023-01-23] MEDS: CEFEPIME 1 GM/NS 50 ML 1 GM/50 ML BAG IVPB ×2 (09:19→20:27)
[2023-01-23] MEDS: METOPROLOL TARTRATE 50 MG TAB 100 MG PO (09:20)
[2023-01-23] MEDS: cloNIDine HCL 0.1 MG TABLET 0.3 MG PO ×2 (09:20→17:05)
[2023-01-23] MEDS: lisinopriL 5 MG TABLET PO (09:21)
[2023-01-23] MEDS: INSULIN GLARGINE (*BKC) 100 UNITS/ML 17 UNITS SUB-Q (09:21)
[2023-01-23 11:54] LABS: Glucose Point of Care 174 mg/dl (65-105)
[2023-01-23] MEDS: traMADol HCL (*CRX) 50 MG TABLET 100 MG PO ×2 (14:10→20:28)
[2023-01-23] MEDS: hydrALAZINE 10 MG TABLET PO ×3 (14:10→20:28)
--- NOTE | 2023-01-23 16:06 | PCCCNOTE ---
On 01/23/23, the student, [Caridad Lanza], provided care and completed [facility] documentation on this patient. I have reviewed the student's documentation and agree with the findings.
[2023-01-23 16:51] LABS: Glucose Point of Care 172 mg/dl (65-105)
[2023-01-23] MEDS: LACTATED RINGERS 1,000 ML 50 ML IV CONT (16:59)
--- NOTE | 2023-01-23 17:19 | WPDPN ---
Progress Note: A&P Assessment and Plan (1) Diabetic ketoacidosis: Code(s): E11.10 - Type 2 diabetes mellitus with ketoacidosis without coma Status: Acute Assessment and Plan: Patient had mild DKA on arrival to the ED with hyperglycemia, increased anion gap, elevated beta hydroxybutyrate, and ketonuria. He was aggressively hydrated with improvement in her numbers and closure of anion gap. 01/23/2023 interval history: Patient is found to have a new onset diabetes upon arrival patient blood sugar was significantly elevated and concerning for DKA, however patient was with vigorously hydrated, and her anion gap closed and sugars are trending down currently on long-acting and short-acting insulin will continue to monitor with sliding scale, upon arrival patient also had a significantly elevated blood pressure from emergency depart patient was started on metoprolol, lisinopril, and hydralazine, patient blood pressure is trending goal is to wean the patient off metoprolol and increase lisinopril for diabetic hypertension, patient with significantly elevated white count there is no obvious sign of infection patient is being treated with Cefepime, and vancomycin, will continue to monitor and further recommendation to follow. Currently patient is agitated and not cooperative. (2) New onset type 2 diabetes mellitus: Code(s): E11.9 - Type 2 diabetes mellitus without complications Status: Acute Assessment and Plan: Patient has new onset diabetes with an A1c of 10.7%. She has been started on basal insulin. Initiate sliding scale insulin, Accu-Cheks, and hypoglycemic protocol. Dietitian and clinical nurse educator consulted. (3) Lactic acidosis: Code(s): E87.20 - Acidosis, unspecified Status: Acute Assessment and Plan: Chest x-ray and urinalysis did not show evidence to suggest infection. CT of the abdomen and pelvis shows findings of possible subacute pyelonephritis or even renal infarct. Given her leukocytosis and these findings, she has been started on empiric cefepime and vancomycin until sepsis is ruled out. (4) Hypertensive urgency: Code(s): I16.0 - Hypertensive urgency Status: Acute Assessment and Plan: Blood pressures have been significantly elevated. She did not take her antihypertensives this morning and will receive both her metoprolol and clonidine at night. Continue to monitor closely and make adjustments as needed. (5) Encephalopathy: Code(s): G93.40 - Encephalopathy, unspecified Status: Acute Assessment and Plan: Exact etiology is not entirely clear. Differential diagnosis includes hypertensive encephalopathy, toxic metabolic encephalopathy, versus other. CVA is also a possibility given expressive aphasia. Consider LP if no improvement by morning but encephalitis/meningitis seems unlikely. Check urine drug screen. (6) Dehydration: Code(s): E86.0 - Dehydration Status: Acute Assessment and Plan: She looks profoundly dry on exam and by labs. Continue IV fluid rehydration. (7) Leukocytosis: Code(s): D72.829 - Elevated white blood cell count, unspecified Status: Acute Assessment and Plan: Again, there is no clear evidence to suggest active infection. May be demargination. Continue antibiotics pending cultures. (8) Non-ST elevated myocardial infarction (non-STEMI): Code(s): I21.4 - Non-ST elevation (NSTEMI) myocardial infarction Status: Acute Assessment and Plan: Troponins have been elevated but are flat. May very well be related to markedly elevated blood pressures. Continue to trend to peak. Echocardiogram ordered. (9) Abnormal computed tomography of abdomen and pelvis: Code(s): R93.5 - Abnormal findings on diagnostic imaging of other abdominal regions, including retroperitoneum Status: Acute Assessment and Plan: Bilateral striated nephrograms with associated mi
[2023-01-23 19:27] LABS: Glucose Point of Care 212 mg/dl (65-105)
[2023-01-23 19:38] LABS: Vancomycin Trough 10.5 ug/mL (10.0-20.0)
[2023-01-23] MEDS: METOPROLOL TARTRATE 50 MG TAB PO (20:28)
[2023-01-23] MEDS: INSULIN ASPART (*BKC) 100 UNITS/ML SUB-Q (20:30)
[2023-01-24] VITALS (15 sets, daily range): BP systolic 165–210; BP diastolic 76–90; PULSE 59–122; RESP 16–20; TEMP 36.2–36.7; O2SAT 94–99; BMI 25.4
[2023-01-24 04:48] LABS: Hematocrit 40.7 % (37.0-47.0); Hemoglobin 13.6 g/dL (12.0-15.0); Mean Corpuscular HGB Conc 33.4 g/dl (32-36); Mean Corpuscular Hemoglobin 28.6 pg (26-34); Mean Corpuscular Volume 85.7 fl (80-100); Platelet Count Result 343 k/mm3 (150-375); Red Blood Count 4.75 M/mm3 (4.2-5.4); Red Cell Distribution Width 12.4 % (11.5-14.5); White Blood Count 19.2 K/mm3 (4.5-10.0)
[2023-01-24 05:05] LABS: Anion Gap 6 mmol/L (8-16); Blood Urea Nitrogen 36 mg/dL (7-17); Calcium 8.1 mg/dL (8.4-10.2); Carbon Dioxide 24 mmol/L (22-30); Chloride 102 mmol/L (98-107); Estimated CRCL calculation 51 ml/min; Estimated Glomerular Filt Rate > 60; Glucose 158 mg/dL (65-110); Magnesium 2.3 mg/dL (1.6-2.3); Potassium 3.4 mmol/L (3.4-5.0); Sodium 132 mmol/L (137-145)
[2023-01-24 07:50] LABS: Glucose Point of Care 196 mg/dl (65-105)
[2023-01-24] MEDS: hydrALAZINE 10 MG TABLET PO ×4 (09:45→19:59)
[2023-01-24] MEDS: METOPROLOL TARTRATE 50 MG TAB PO ×2 (09:46→19:59)
[2023-01-24] MEDS: lisinopriL 20 MG TABLET PO (09:46)
[2023-01-24] MEDS: INSULIN GLARGINE (*BKC) 100 UNITS/ML 17 UNITS SUB-Q (09:47)
[2023-01-24] MEDS: traMADol HCL (*CRX) 50 MG TABLET 100 MG PO ×3 (09:48→19:59)
[2023-01-24] MEDS: CEFEPIME 1 GM/NS 50 ML 1 GM/50 ML BAG IVPB ×2 (09:49→19:59)
[2023-01-24] MEDS: cloNIDine HCL 0.1 MG TABLET 0.3 MG PO ×2 (09:49→17:17)
[2023-01-24 12:07] LABS: Glucose Point of Care 175 mg/dl (65-105)
--- NOTE | 2023-01-24 13:49 | PCPTNOTE ---
Attempted PT evaluation, Pt refused due to lack of sleep and having chronic pain. RN aware. Will follow.
--- NOTE | 2023-01-24 14:55 | PCOTNOTE ---
Attempted OT evaluation, Pt refused due to lack of sleep and having chronic pain. RN aware. Will follow.
[2023-01-24 16:23] LABS: Glucose Point of Care 195 mg/dl (65-105)
--- NOTE | 2023-01-24 16:57 | WPDPN ---
Progress Note: A&P Assessment and Plan (1) Diabetic ketoacidosis: Code(s): E11.10 - Type 2 diabetes mellitus with ketoacidosis without coma Status: Acute Assessment and Plan: Patient had mild DKA on arrival to the ED with hyperglycemia, increased anion gap, elevated beta hydroxybutyrate, and ketonuria. He was aggressively hydrated with improvement in her numbers and closure of anion gap. 01/24/2023 interval history: Patient is found to have a new onset diabetes upon arrival patient blood sugar was significantly elevated and concerning for DKA, however patient was with vigorously hydrated, and her anion gap closed and sugars are trending down currently on long-acting and short-acting insulin will continue to monitor with sliding scale, patient continued to complain pain will add gabapentin as patient may have diabetic neuropathy, upon arrival patient also had a significantly elevated blood pressure from emergency depart patient was started on metoprolol, lisinopril, and hydralazine, patient blood pressure is trending goal is to wean the patient off metoprolol and increase lisinopril for diabetic hypertension, patient with significantly elevated white count there is no obvious sign of infection patient is being treated with Cefepime, and vancomycin, patient white counts are trending down, urine culture is negative, culture is pending, will continue to monitor and further recommendation to follow. Currently patient is agitated and not cooperative. (2) New onset type 2 diabetes mellitus: Code(s): E11.9 - Type 2 diabetes mellitus without complications Status: Acute Assessment and Plan: Patient has new onset diabetes with an A1c of 10.7%. She has been started on basal insulin. Initiate sliding scale insulin, Accu-Cheks, and hypoglycemic protocol. Dietitian and blocker and polisher gold wheel consulted. (3) Lactic acidosis: Code(s): E87.20 - Acidosis, unspecified Status: Acute Assessment and Plan: Chest x-ray and urinalysis did not show evidence to suggest infection. CT of the abdomen and pelvis shows findings of possible subacute pyelonephritis or even renal infarct. Given her leukocytosis and these findings, she has been started on empiric cefepime and vancomycin until sepsis is ruled out. (4) Hypertensive urgency: Code(s): I16.0 - Hypertensive urgency Status: Acute Assessment and Plan: Blood pressures have been significantly elevated. She did not take her antihypertensives this morning and will receive both her metoprolol and clonidine at night. Continue to monitor closely and make adjustments as needed. (5) Encephalopathy: Code(s): G93.40 - Encephalopathy, unspecified Status: Acute Assessment and Plan: Exact etiology is not entirely clear. Differential diagnosis includes hypertensive encephalopathy, toxic metabolic encephalopathy, versus other. CVA is also a possibility given expressive aphasia. Consider LP if no improvement by morning but encephalitis/meningitis seems unlikely. Check urine drug screen. (6) Dehydration: Code(s): E86.0 - Dehydration Status: Acute Assessment and Plan: She looks profoundly dry on exam and by labs. Continue IV fluid rehydration. (7) Leukocytosis: Code(s): D72.829 - Elevated white blood cell count, unspecified Status: Acute Assessment and Plan: Again, there is no clear evidence to suggest active infection. May be demargination. Continue antibiotics pending cultures. (8) Non-ST elevated myocardial infarction (non-STEMI): Code(s): I21.4 - Non-ST elevation (NSTEMI) myocardial infarction Status: Acute Assessment and Plan: Troponins have been elevated but are flat. May very well be related to markedly elevated blood pressures. Continue to trend to peak. Echocardiogram ordered. (9) Abnormal computed tomography of abdomen and pelvis: Code(s): R93.5 - Abnorma
[2023-01-24] MEDS: LACTATED RINGERS 1,000 ML 50 ML IV CONT (17:17)
[2023-01-24 20:46] LABS: Glucose Point of Care 146 mg/dl (65-105)
--- NOTE | 2023-01-24 21:35 | PC.NURSE ---
This patient, Aggie Donald, was transferred to [[id number] ] on 01/24/23 at 2135. Personal belongings sent with patient. Report given to [Bailey santa ]. Appropriate documentation sent with patient.
[2023-01-25] VITALS (8 sets, daily range): BP systolic 144–208; BP diastolic 67–83; PULSE 55–90; RESP 14–18; TEMP 36.2–36.9; O2SAT 96–100
[2023-01-25] MEDS: hydrALAZINE HCL 20 MG/ML VIAL 10 MG IV PUSH ×3 (01:46→21:53)
[2023-01-25 06:33] LABS: Glucose Point of Care 118 mg/dl (65-105)
[2023-01-25 07:55] LABS: Hematocrit 42.5 % (37.0-47.0); Hemoglobin 14.7 g/dL (12.0-15.0); Mean Corpuscular HGB Conc 34.6 g/dl (32-36); Mean Corpuscular Hemoglobin 29.2 pg (26-34); Mean Corpuscular Volume 84.5 fl (80-100); Mean Platelet Volume 9.5 fl (7.4-10.4); Platelet Count Result 373 k/mm3 (150-375); Red Blood Count 5.03 M/mm3 (4.2-5.4); White Blood Count 20.3 K/mm3 (4.5-10.0)
[2023-01-25 08:11] LABS: Vancomycin Trough 17.1 ug/mL (10.0-20.0)
[2023-01-25 08:13] LABS: Anion Gap 4 mmol/L (8-16); Blood Urea Nitrogen 22 mg/dL (7-17); Carbon Dioxide 28 mmol/L (22-30); Chloride 101 mmol/L (98-107); Estimated CRCL calculation 57 ml/min; Estimated Glomerular Filt Rate > 60; Glucose 127 mg/dL (65-110); Magnesium 2.2 mg/dL (1.6-2.3); Potassium 3.3 mmol/L (3.4-5.0); Sodium 133 mmol/L (137-145)
[2023-01-25 08:33] LABS: Glucose Point of Care 147 mg/dl (65-105)
[2023-01-25] MEDS: cloNIDine HCL 0.1 MG TABLET 0.3 MG PO (09:33)
[2023-01-25] MEDS: METOPROLOL TARTRATE 50 MG TAB PO (09:34)
[2023-01-25] MEDS: hydrALAZINE 10 MG TABLET PO ×2 (09:36→12:38)
[2023-01-25] MEDS: CEFEPIME 1 GM/NS 50 ML 1 GM/50 ML BAG IVPB (09:36)
[2023-01-25] MEDS: lisinopriL 20 MG TABLET PO (09:36)
[2023-01-25] MEDS: INSULIN GLARGINE (*BKC) 100 UNITS/ML 17 UNITS SUB-Q (09:36)
[2023-01-25] MEDS: POTASSIUM CHLORIDE 20 MEQ TABLET 40 MEQ PO (10:58)
[2023-01-25 11:53] LABS: Glucose Point of Care 161 mg/dl (65-105)
--- NOTE | 2023-01-25 11:57 | WPDPN ---
Progress Note: A&P Assessment and Plan (1) Diabetic ketoacidosis: Code(s): E11.10 - Type 2 diabetes mellitus with ketoacidosis without coma Status: Acute Assessment and Plan: Patient had mild DKA on arrival to the ED with hyperglycemia, increased anion gap, elevated beta hydroxybutyrate, and ketonuria. He was aggressively hydrated with improvement in her numbers and closure of anion gap. 01/25/2023 interval history: Patient is found to have a new onset diabetes upon arrival patient blood sugar was significantly elevated and concerning for DKA, however patient was with vigorously hydrated, and her anion gap closed and sugars are trending down currently on long-acting and short-acting insulin will continue to monitor with sliding scale, patient continued to complain pain will add gabapentin as patient may have diabetic neuropathy, upon arrival patient also had a significantly elevated blood pressure from emergency depart patient was started on metoprolol, lisinopril, and hydralazine, patient blood pressure is trending down, goal is to wean the patient off metoprolol and increase lisinopril for diabetic hypertension, patient with significantly elevated white count there is no obvious sign of infection however CT scan of abdomen is concerning for pyelonephritis, urine culture no growth so far, blood culture is pending. patient is being treated with Cefepime, and vancomycin, patient white counts are trending down, patient with new onset diabetes uncontrolled complaints of generalized weakness and pain most likely patient is having diabetic neuropathy will start the patient on gabapentin, will continue to monitor and further recommendation to follow. Currently patient is agitated and not cooperative. (2) New onset type 2 diabetes mellitus: Code(s): E11.9 - Type 2 diabetes mellitus without complications Status: Acute Assessment and Plan: Patient has new onset diabetes with an A1c of 10.7%. She has been started on basal insulin. Initiate sliding scale insulin, Accu-Cheks, and hypoglycemic protocol. Dietitian and inclusion special educator consulted. (3) Lactic acidosis: Code(s): E87.20 - Acidosis, unspecified Status: Acute Assessment and Plan: Chest x-ray and urinalysis did not show evidence to suggest infection. CT of the abdomen and pelvis shows findings of possible subacute pyelonephritis or even renal infarct. Given her leukocytosis and these findings, she has been started on empiric cefepime and vancomycin until sepsis is ruled out. (4) Hypertensive urgency: Code(s): I16.0 - Hypertensive urgency Status: Acute Assessment and Plan: Blood pressures have been significantly elevated. She did not take her antihypertensives this morning and will receive both her metoprolol and clonidine at night. Continue to monitor closely and make adjustments as needed. (5) Encephalopathy: Code(s): G93.40 - Encephalopathy, unspecified Status: Acute Assessment and Plan: Exact etiology is not entirely clear. Differential diagnosis includes hypertensive encephalopathy, toxic metabolic encephalopathy, versus other. CVA is also a possibility given expressive aphasia. Consider LP if no improvement by morning but encephalitis/meningitis seems unlikely. Check urine drug screen. (6) Dehydration: Code(s): E86.0 - Dehydration Status: Acute Assessment and Plan: She looks profoundly dry on exam and by labs. Continue IV fluid rehydration. (7) Leukocytosis: Code(s): D72.829 - Elevated white blood cell count, unspecified Status: Acute Assessment and Plan: Again, there is no clear evidence to suggest active infection. May be demargination. Continue antibiotics pending cultures. (8) Non-ST elevated myocardial infarction (non-STEMI): Code(s): I21.4 - Non-ST elevation (NSTEMI) myocardial infarction Status: Acute Assessment and Pl
[2023-01-25] MEDS: GABAPENTIN 300 MG CAPSULE PO (12:50)
[2023-01-25 17:09] LABS: Glucose Point of Care 135 mg/dl (65-105)
--- NOTE | 2023-01-25 18:04 | PC.NURSE ---
Pt refused all medication at the 1700 med pass and would not let song writer hook her up to IV fluids. Board Certified Behavioral Analyst educated patient on plan of care and pt would only state no . Patient refused evening dinner tray.
[2023-01-25 21:51] LABS: Glucose Point of Care 117 mg/dl (65-105)
[2023-01-26] VITALS (8 sets, daily range): BP systolic 122–208; BP diastolic 80–106; PULSE 65–112; RESP 16–18; TEMP 36.2–36.6; O2SAT 95–99
[2023-01-26 06:28] LABS: Hematocrit 43.8 % (37.0-47.0); Hemoglobin 15.2 g/dL (12.0-15.0); Mean Corpuscular HGB Conc 34.7 g/dl (32-36); Mean Corpuscular Hemoglobin 29.5 pg (26-34); Mean Corpuscular Volume 84.9 fl (80-100); Mean Platelet Volume 10.2 fl (7.4-10.4); Platelet Count Result 412 k/mm3 (150-375); Red Blood Count 5.16 M/mm3 (4.2-5.4); Red Cell Distribution Width 12.3 % (11.5-14.5); White Blood Count 20.7 K/mm3 (4.5-10.0)
[2023-01-26 07:13] LABS: Anion Gap 11 mmol/L (8-16); Blood Urea Nitrogen 25 mg/dL (7-17); Calcium 8.4 mg/dL (8.4-10.2); Carbon Dioxide 23 mmol/L (22-30); Chloride 103 mmol/L (98-107); Estimated CRCL calculation 51 ml/min; Estimated Glomerular Filt Rate > 60; Glucose 139 mg/dL (65-110); Magnesium 2.3 mg/dL (1.6-2.3); Potassium 3.9 mmol/L (3.4-5.0); Sodium 137 mmol/L (137-145)
[2023-01-26 08:44] LABS: Glucose Point of Care 163 mg/dl (65-105)
[2023-01-26] MEDS: traMADol HCL (*CRX) 50 MG TABLET 100 MG PO ×3 (09:32→22:45)
[2023-01-26] MEDS: cloNIDine HCL 0.1 MG TABLET 0.3 MG PO ×2 (09:33→17:47)
[2023-01-26] MEDS: GABAPENTIN 300 MG CAPSULE PO ×3 (09:36→17:47)
[2023-01-26] MEDS: hydrALAZINE 10 MG TABLET PO ×4 (09:37→22:39)
[2023-01-26] MEDS: lisinopriL 20 MG TABLET PO (09:37)
[2023-01-26] MEDS: METOPROLOL TARTRATE 50 MG TAB PO ×2 (09:39→22:38)
[2023-01-26] MEDS: CEFEPIME 1 GM/NS 50 ML 1 GM/50 ML BAG IVPB ×2 (09:39→22:39)
[2023-01-26] MEDS: INSULIN GLARGINE (*BKC) 100 UNITS/ML 17 UNITS SUB-Q (09:57)
[2023-01-26 11:55] LABS: Glucose Point of Care 183 mg/dl (65-105)
--- NOTE | 2023-01-26 12:31 | PM.PNCARD ---
Progress Note: A&P Assessment and Plan (1) Hypertensive urgency: Code(s): I16.0 - Hypertensive urgency Status: Acute Assessment and Plan: Patient reported to be agitated. At this time she is on clonidine 0.3 mg b.i.d., metoprolol, lisinopril. Likely blood pressure is running high due to altered mental status and agitation. Use p.r.n. medications control blood pressure (2) Elevated troponin: Code(s): R77.8 - Other specified abnormalities of plasma proteins Status: Acute Assessment and Plan: Nonspecific rise in troponin most likely secondary to hypertension urgency. No ischemic changes on EKG. Echocardiogram done during this hospitalization shows normal ejection fraction and no wall motion abnormalities. Continue observation Subjective Date/time seen: Ms. Donald is a 73-year-old female with a history of fibromyalgia, osteoarthritis, and hypertension who presented to the emergency department yesterday for an evaluation for weakness.? Patient states she was in her normal state of health prior to developing symptoms of weakness, chills, fever, and lethargy.? She does not remember being brought to the hospital so some of the history was obtained from family members at the bedside.? Family members also noted that she was having trouble finding words and her speech had become slurred.? 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 Patient denies any known history of CVA.? She was also noted to be significantly hypertensive upon arrival and has remained hypertensive with a systolic blood pressure in the 190s.? Labs were significant for a white blood cell count of 34.7, anion gap 21, BUN 32, creatinine 1.3, glucose 489, lactic acid 4.0, total CK 191.? Troponin levels were also drawn and have been elevated at 0.202, 0.203, and 0.349.? Cardiology has been asked to see her because of the elevated troponin levels.? Patient denies any known cardiac history including congestive heart failure, arrhythmias, coronary artery disease, valvular heart disease.? She denies any history of chest pain and is not having any chest pain currently. Interval history: Date of service 01/26/2023-apparently has been agitated yelling she wants to be DNR wants drugs to make her sleep. Has not been cooperative and refusing IV antibiotics. Blood pressure fluctuating Exam Narrative: Resting comfortably. No acute distress Const: Other: No acute distress HENMT: Other: Normocephalic, atraumatic Eyes: Other: No discharge Neck: Other: Supple Resp: Other: Symmetric lung expansion Cardio: Other: rregular heart rhythm. Tachycardic GI: Other: No distension Neuro: Other: Sleepy at this time Extrem: Other: No edema Psych: Other: Reported to be agitated yelling wants to be DNR and wants drugs to sleep Objective Data Vital Signs Vital Signs: Vital Signs - 24 hr 01/25/23 12:52 01/25/23 20:42 01/25/23 21:35 Temperature 36.2 C L 36.9 C Pulse Rate 55 L 63 Respiratory Rate 16 14 Blood Pressure 144/67 H 208/83 H 208/83 H Pulse Oximetry 97 97 Oxygen Delivery 01/25/23 20:00 01/26/23 05:04 01/26/23 09:39 Temperature 36.6 C Pulse Rate 112 H 101 H Respiratory Rate 16 Blood Pressure 122/80 Pulse Oximetry 98 Oxygen Delivery Room Air 01/26/23 09:41 Temperature Pulse Rate Respiratory Rate Blood Pressure Pulse Oximetry 95 Oxygen Delivery Room Air Intake/Output Intake/Output: Intake & Output 01/23/23 01/24/23 01/25/23 01/26/23 23:59 23:59 23:59 23:59 Intake Total 2370 2250 270 Output Total 875 1950 1100 300 Balance 1495 300 -830 -300 Meds/Results Medications: Active Medications Generic Name Dose Route Start Last Admin Trade Name Freq PRN Reason Stop Dose Admin Acetaminophen 650 mg 01/22/23 02:24 Acetaminophe
--- NOTE | 2023-01-26 13:22 | WPDPN ---
Progress Note: A&P Assessment and Plan (1) Diabetic ketoacidosis: Code(s): E11.10 - Type 2 diabetes mellitus with ketoacidosis without coma Status: Acute Assessment and Plan: Patient had mild DKA on arrival to the ED with hyperglycemia, increased anion gap, elevated beta hydroxybutyrate, and ketonuria. He was aggressively hydrated with improvement in her numbers and closure of anion gap. 01/26/2023 interval history: Patient is found to have a new onset diabetes upon arrival patient blood sugar was significantly elevated and concerning for DKA, however patient was with vigorously hydrated, and her anion gap closed and sugars are trending down currently on long-acting and short-acting insulin will continue to monitor with sliding scale, patient continued to complain pain will add gabapentin as patient may have diabetic neuropathy, upon arrival patient also had a significantly elevated blood pressure from emergency depart patient was started on metoprolol, lisinopril, and hydralazine, patient blood pressure is trending down, goal is to wean the patient off metoprolol and increase lisinopril for diabetic hypertension, patient with significantly elevated white count there is no obvious sign of infection however CT scan of abdomen is concerning for pyelonephritis, urine and blood culture no growth so far. Patient white counts remain high 20,700 [place] [id number] [place] arrival, patient is being treated with Cefepime, and vancomycin,patient with new onset diabetes uncontrolled complaints of generalized weakness and pain most likely patient is having diabetic neuropathy will start the patient on gabapentin, again today patient agitated and wants to , resulting in elevated blood pressure seen by cardiology recommended to continue present blood pressure medication with p.r.n. as needed. (2) New onset type 2 diabetes mellitus: Code(s): E11.9 - Type 2 diabetes mellitus without complications Status: Acute Assessment and Plan: Patient has new onset diabetes with an A1c of 10.7%. She has been started on basal insulin. Initiate sliding scale insulin, Accu-Cheks, and hypoglycemic protocol. Dietitian and wood barrel reconditioner consulted. (3) Lactic acidosis: Code(s): E87.20 - Acidosis, unspecified Status: Acute Assessment and Plan: Chest x-ray and urinalysis did not show evidence to suggest infection. CT of the abdomen and pelvis shows findings of possible subacute pyelonephritis or even renal infarct. Given her leukocytosis and these findings, she has been started on empiric cefepime and vancomycin until sepsis is ruled out. (4) Hypertensive urgency: Code(s): I16.0 - Hypertensive urgency Status: Acute Assessment and Plan: Blood pressures have been significantly elevated. She did not take her antihypertensives this morning and will receive both her metoprolol and clonidine at night. Continue to monitor closely and make adjustments as needed. (5) Encephalopathy: Code(s): G93.40 - Encephalopathy, unspecified Status: Acute Assessment and Plan: Exact etiology is not entirely clear. Differential diagnosis includes hypertensive encephalopathy, toxic metabolic encephalopathy, versus other. CVA is also a possibility given expressive aphasia. Consider LP if no improvement by morning but encephalitis/meningitis seems unlikely. Check urine drug screen. (6) Dehydration: Code(s): E86.0 - Dehydration Status: Acute Assessment and Plan: She looks profoundly dry on exam and by labs. Continue IV fluid rehydration. (7) Leukocytosis: Code(s): D72.829 - Elevated white blood cell count, unspecified Status: Acute Assessment and Plan: Again, there is no clear evidence to suggest active infection. May be demargination. Continue antibiotics pending cultures. (8) Non-ST elevated myocardial infarction (non-STEMI): Code(s
[2023-01-26] MEDS: hydrALAZINE HCL 20 MG/ML VIAL 10 MG IV PUSH (13:56)
[2023-01-26 17:38] LABS: Glucose Point of Care 173 mg/dl (65-105)
[2023-01-26 20:53] LABS: Glucose Point of Care 142 mg/dl (65-105)
[2023-01-26] MEDS: hydroCHLOROthiazide 25 MG TABLET PO (22:38)
[2023-01-27] VITALS (10 sets, daily range): BP systolic 105–185; BP diastolic 55–82; PULSE 55–78; RESP 16–20; TEMP 36.1–36.6; O2SAT 99–100
[2023-01-27] MEDS: traMADol HCL (*CRX) 50 MG TABLET 100 MG PO ×2 (05:02→10:13)
[2023-01-27 06:47] LABS: Hematocrit 41.2 % (37.0-47.0); Hemoglobin 13.9 g/dL (12.0-15.0); Mean Corpuscular HGB Conc 33.7 g/dl (32-36); Mean Corpuscular Hemoglobin 29.6 pg (26-34); Mean Corpuscular Volume 87.7 fl (80-100); Mean Platelet Volume 10.2 fl (7.4-10.4); Platelet Count Result 373 k/mm3 (150-375); Red Cell Distribution Width 12.5 % (11.5-14.5); White Blood Count 18.9 K/mm3 (4.5-10.0)
[2023-01-27 07:06] LABS: Anion Gap 3 mmol/L (8-16); Blood Urea Nitrogen 25 mg/dL (7-17); Calcium 8.3 mg/dL (8.4-10.2); Carbon Dioxide 27 mmol/L (22-30); Chloride 102 mmol/L (98-107); Estimated CRCL calculation 51 ml/min; Estimated Glomerular Filt Rate > 60; Glucose 115 mg/dL (65-110); Magnesium 2.4 mg/dL (1.6-2.3); Potassium 3.6 mmol/L (3.4-5.0); Sodium 132 mmol/L (137-145)
[2023-01-27 08:36] LABS: Glucose Point of Care 120 mg/dl (65-105)
[2023-01-27] MEDS: cloNIDine HCL 0.1 MG TABLET 0.3 MG PO ×2 (10:08→17:25)
[2023-01-27] MEDS: GABAPENTIN 300 MG CAPSULE PO ×3 (10:08→17:25)
[2023-01-27] MEDS: METOPROLOL TARTRATE 50 MG TAB PO ×2 (10:09→20:23)
[2023-01-27] MEDS: lisinopriL 20 MG TABLET 40 MG PO (10:09)
[2023-01-27] MEDS: hydroCHLOROthiazide 25 MG TABLET PO (10:09)
[2023-01-27] MEDS: hydrALAZINE 10 MG TABLET 20 MG PO ×2 (10:09→12:44)
--- NOTE | 2023-01-27 10:11 | PM.IMPN ---
Progress Note: A&P Assessment and Plan (1) Diabetic ketoacidosis: Code(s): E11.10 - Type 2 diabetes mellitus with ketoacidosis without coma Status: Acute Assessment and Plan: Patient had mild DKA on arrival to the ED with hyperglycemia, increased anion gap, elevated beta hydroxybutyrate, and ketonuria. she was aggressively hydrated with improvement in her numbers and closure of anion gap. DKA has resolved (2) New onset type 2 diabetes mellitus: Code(s): E11.9 - Type 2 diabetes mellitus without complications Status: Acute Assessment and Plan: Patient has new onset diabetes with an A1c of 10.7%. She has been started on basal insulin. Initiate sliding scale insulin, Accu-Cheks, and hypoglycemic protocol. Dietitian and family educator consulted. (3) Lactic acidosis: Code(s): E87.20 - Acidosis, unspecified Status: Acute Assessment and Plan: Chest x-ray and urinalysis did not show evidence to suggest infection. CT of the abdomen and pelvis shows findings of possible subacute pyelonephritis or even renal infarct. Cultures are negative. Will discontinue antibiotics (4) Hypertensive urgency: Code(s): I16.0 - Hypertensive urgency Status: Acute Assessment and Plan: Blood pressures have been significantly elevated. patient was started on metoprolol, lisinopril, clonidine and hydralazine. Will increase lisinopril and hydralazine does (5) Encephalopathy: Code(s): G93.40 - Encephalopathy, unspecified Status: Acute Assessment and Plan: Exact etiology is not entirely clear. Differential diagnosis includes hypertensive encephalopathy, toxic metabolic encephalopathy, versus other. CVA is also a possibility given expressive aphasia. (6) Dehydration: Code(s): E86.0 - Dehydration Status: Acute Assessment and Plan: Resolved. Discontinue IV fluid (7) Leukocytosis: Code(s): D72.829 - Elevated white blood cell count, unspecified Status: Acute Assessment and Plan: Again, there is no clear evidence to suggest active infection. May be demargination. Cultures are negative. Discontinue antibiotics (8) Non-ST elevated myocardial infarction (non-STEMI): Code(s): I21.4 - Non-ST elevation (NSTEMI) myocardial infarction Status: Acute Assessment and Plan: Troponins have been elevated but are flat. May very well be related to markedly elevated blood pressures. Continue to trend to peak. Echocardiogram ordered. Subjective Date/time seen: 01/27/23 10:11 Interval history: Patient states she is feeling better today. Review of Systems Review of Systems: All systems reviewed & are unremarkable except as noted in HPI and below Exam Narrative: Patient is comfortable, NAD HEENT: eyes are clear and none icteric LUNGS: Normal respiratory ABD: Distended Lower extremities: no edema SKIN: nonjaundiced Neuro: grossly intact. Objective Data Vital Signs Vital Signs: Vital Signs - 24 hr 01/26/23 14:03 01/26/23 18:20 01/26/23 19:25 Temperature 97.2 F L 97.8 F Pulse Rate 79 65 Respiratory Rate 18 18 Blood Pressure 208/106 H 198/87 H 156/90 H Pulse Oximetry 99 97 Oxygen Delivery 01/26/23 22:38 01/26/23 20:00 01/27/23 04:47 Temperature 97.5 F L Pulse Rate 86 64 Respiratory Rate 16 Blood Pressure 185/79 H Pulse Oximetry 99 Oxygen Delivery Room Air Intake/Output Intake/Output: Intake & Output 01/24/23 01/25/23 01/26/23 01/27/23 23:59 23:59 23:59 23:59 Intake Total 2250 / 2250 270 / 270 1320 / 1320 512 / 512 Output Total 1950 / 1950 1100 / 1100 650 / 650 650 / 650 Balance 300 / 300 -830 / -830 670 / 670 -138 / -138 Meds/Results Medications: Active Medications Generic Name Dose Route Start Last Admin Trade Name Freq PRN Reason Stop Dose Admin Acetaminophen 650 mg 01/22/23 02:24 Acetaminophen 325 Mg Tablet PO
[2023-01-27] MEDS: INSULIN GLARGINE (*BKC) 100 UNITS/ML 17 UNITS SUB-Q (10:14)
[2023-01-27 12:21] LABS: Glucose Point of Care 166 mg/dl (65-105)
--- NOTE | 2023-01-27 14:02 | PM.PNCARD ---
Progress Note: A&P Assessment and Plan (1) Hypertensive urgency: Code(s): I16.0 - Hypertensive urgency Status: Acute Assessment and Plan: Pressure remains elevated. 0.3 mg b.i.d., lisinopril was increased today to 40 mg daily, metoprolol 50 mg b.i.d. patient was started HCTZ 25 mg daily. Hydralazine was increased today from 10 mg q.6 hours to 20 mg q.6 hours. Discontinue hydralazine. Start nifedipine 60 mg daily. Be evaluated blood pressure (2) Elevated troponin: Code(s): R77.8 - Other specified abnormalities of plasma proteins Status: Acute Assessment and Plan: Nonspecific rise in troponin most likely secondary to hypertension urgency. No ischemic changes on EKG. Echocardiogram done during this hospitalization shows normal ejection fraction and no wall motion abnormalities. Continue observation Subjective Date/time seen: 01/27/23 14:02 Interval history: Date of service 01/26/2023-apparently has been agitated yelling she wants to be DNR wants drugs to make her sleep. Has not been cooperative and refusing IV antibiotics. Blood pressure fluctuating Date of service 01/27/2023-resting comfortably in bed. Blood pressure remains elevated despite increasing blood pressure medicine. Review of Systems Review of Systems: All systems reviewed & are unremarkable except as noted in HPI and below Exam Narrative: Resting comfortably. No acute distress Const: General: comfortable, no acute distress, alert and awake Orientation/consciousness: patient oriented x3 Other: No acute distress HENMT: Head: normal to inspection Other: Normocephalic, atraumatic Eyes: General: appearance normal, both eyes and all related structures Pupils: Equal, round and reactive pupils present Other: No discharge Neck: Neck: normal visual inspection, supple and no JVD Carotids: normal carotid upstroke and no bruits Other: Supple Resp: Effort & Inspection: normal respiratory effort Auscultation: clear to auscultation bilaterally Other: Symmetric lung expansion Cardio: Rate: regular rate Rhythm: regular rhythm Heart sounds: S1 normal heart sound present, S2 normal heart sound present and no murmurs Other: rregular heart rhythm. Tachycardic GI: Auscultation: normal bowel sounds Other: No distension Skin: General skin exam: normal color Neuro: General: patient oriented x3 Cranial nerves: Yes Equal, round and reactive pupils present Other: Sleepy at this time Extrem: General: normal to inspection Other: No edema Psych: Appearance: grossly normal Mental Status: mental status grossly abnormal Other: Reported to be agitated yelling wants to be DNR and wants drugs to sleep Objective Data Vital Signs Vital Signs: Vital Signs - 24 hr 01/26/23 14:03 01/26/23 18:20 01/26/23 19:25 Temperature 36.2 C L 36.6 C Pulse Rate 79 65 Respiratory Rate 18 18 Blood Pressure 208/106 H 198/87 H 156/90 H Pulse Oximetry 99 97 Oxygen Delivery 01/26/23 22:38 01/26/23 20:00 01/27/23 04:47 Temperature 36.4 C L Pulse Rate 86 64 Respiratory Rate 16 Blood Pressure 185/79 H Pulse Oximetry 99 Oxygen Delivery Room Air 01/27/23 10:09 01/27/23 10:08 01/27/23 10:00 Temperature Pulse Rate 73 Respiratory Rate Blood Pressure 183/72 H Pulse Oximetry Oxygen Delivery Room Air 01/27/23 12:40 Temperature Pulse Rate Respiratory Rate Blood Pressure 184/82 H Pulse Oximetry Oxygen Delivery Intake/Output Intake/Output: Intake & Output 01/24/23 01/25/23 01/26/23 01/27/23 23:59 23:59 23:59 23:59 Intake Total 2250 270 1320 752 Output Total 1950 1100 650 650 Balance 300 -830 670 102 Meds/Results Medications: Active Medications Generic Name Dose Route Start Last Admin Trade Name Freq PRN Reason Stop Dose Admin Acetaminophen 650 mg 01/22/23 02:24 Acetaminophen 325 Mg Tablet PO
[2023-01-27 17:30] LABS: Glucose Point of Care 137 mg/dl (65-105)
[2023-01-27 20:46] LABS: Glucose Point of Care 227 mg/dl (65-105)
[2023-01-27] MEDS: INSULIN ASPART (*BKC) 100 UNITS/ML SUB-Q ×2 (20:50→20:51)
[2023-01-28] VITALS (8 sets, daily range): BP systolic 103–185; BP diastolic 52–79; PULSE 58–70; RESP 16–18; TEMP 36.4–36.8; O2SAT 99–100
[2023-01-28] MEDS: traMADol HCL (*CRX) 50 MG TABLET 100 MG PO (03:34)
[2023-01-28 05:50] LABS: Hematocrit 39.7 % (37.0-47.0); Hemoglobin 13.6 g/dL (12.0-15.0); Mean Corpuscular HGB Conc 34.3 g/dl (32-36); Mean Corpuscular Hemoglobin 29.7 pg (26-34); Mean Corpuscular Volume 86.7 fl (80-100); Mean Platelet Volume 9.9 fl (7.4-10.4); Platelet Count Result 353 k/mm3 (150-375); Red Blood Count 4.58 M/mm3 (4.2-5.4); Red Cell Distribution Width 12.6 % (11.5-14.5)
[2023-01-28 06:21] LABS: Anion Gap 6 mmol/L (8-16); Blood Urea Nitrogen 24 mg/dL (7-17); Calcium 8.3 mg/dL (8.4-10.2); Carbon Dioxide 27 mmol/L (22-30); Chloride 98 mmol/L (98-107); Estimated CRCL calculation 45 ml/min; Estimated Glomerular Filt Rate > 60; Glucose 132 mg/dL (65-110); Magnesium 2.4 mg/dL (1.6-2.3); Potassium 3.8 mmol/L (3.4-5.0); Sodium 131 mmol/L (137-145)
[2023-01-28 08:28] LABS: Glucose Point of Care 177 mg/dl (65-105)
[2023-01-28] MEDS: cloNIDine HCL 0.1 MG TABLET 0.3 MG PO ×2 (08:51→16:46)
[2023-01-28] MEDS: GABAPENTIN 300 MG CAPSULE PO ×3 (08:51→16:46)
[2023-01-28] MEDS: METOPROLOL TARTRATE 50 MG TAB PO ×2 (08:52→20:52)
[2023-01-28] MEDS: lisinopriL 20 MG TABLET 40 MG PO (08:52)
[2023-01-28] MEDS: NIFEdipine 30 MG TAB.ER.24 60 MG PO (08:52)
[2023-01-28] MEDS: INSULIN GLARGINE (*BKC) 100 UNITS/ML 17 UNITS SUB-Q (08:53)
[2023-01-28] MEDS: hydroCHLOROthiazide 25 MG TABLET 50 MG PO (09:01)
--- NOTE | 2023-01-28 11:58 | PM.IMPN ---
Progress Note: A&P Assessment and Plan (1) Diabetic ketoacidosis: Code(s): E11.10 - Type 2 diabetes mellitus with ketoacidosis without coma Status: Acute Assessment and Plan: DKA has resolved (2) New onset type 2 diabetes mellitus: Code(s): E11.9 - Type 2 diabetes mellitus without complications Status: Acute Assessment and Plan: Patient has new onset diabetes with an A1c of 10.7%. She has been started on basal insulin. Initiate sliding scale insulin, Accu-Cheks, and hypoglycemic protocol. Dietitian and grizzly worker consulted. (3) Lactic acidosis: Code(s): E87.20 - Acidosis, unspecified Status: Acute Assessment and Plan: Chest x-ray and urinalysis did not show evidence to suggest infection. CT of the abdomen and pelvis shows findings of possible subacute pyelonephritis or even renal infarct. Cultures are negative. Will discontinue antibiotics (4) Hypertensive urgency: Code(s): I16.0 - Hypertensive urgency Status: Acute Assessment and Plan: Blood pressures have been significantly elevated. patient was started on metoprolol, lisinopril, clonidine and hydralazine. Will increase lisinopril. Hydralazine discontinued per Cardiology recommendations. Increase hydrochlorothiazide dose. Nifedipine XL added per Cardiology (5) Encephalopathy: Code(s): G93.40 - Encephalopathy, unspecified Status: Acute Assessment and Plan: Exact etiology is not entirely clear. Differential diagnosis includes hypertensive encephalopathy, toxic metabolic encephalopathy, versus other. CVA is also a possibility given expressive aphasia. (6) Leukocytosis: Code(s): D72.829 - Elevated white blood cell count, unspecified Status: Acute Assessment and Plan: Again, there is no clear evidence to suggest active infection. May be demargination. Cultures are negative. Discontinue antibiotics Subjective Date/time seen: 01/28/23 11:58 Interval history: Stable. Denies any acute events. States she is feeling better Review of Systems Review of Systems: All systems reviewed & are unremarkable except as noted in HPI and below Exam Narrative: Patient is comfortable, NAD HEENT: eyes are clear and none icteric LUNGS: Normal respiratory ABD: Distended Lower extremities: no edema SKIN: nonjaundiced Neuro: grossly intact. Objective Data Vital Signs Vital Signs: Vital Signs - 24 hr 01/27/23 12:40 01/27/23 14:10 01/27/23 15:27 Temperature 97.0 F L Pulse Rate 63 Respiratory Rate 16 Blood Pressure 184/82 H 143/82 H 123/66 Pulse Oximetry 100 Oxygen Delivery 01/27/23 17:23 01/27/23 20:23 01/27/23 20:25 Temperature 98 F Pulse Rate 78 55 L Respiratory Rate 20 Blood Pressure 157/78 H 105/55 L Pulse Oximetry 99 Oxygen Delivery 01/27/23 20:00 01/28/23 05:02 01/28/23 08:52 Temperature 98.3 F Pulse Rate 55 L 62 70 Respiratory Rate 20 16 Blood Pressure 166/79 H Pulse Oximetry 99 99 Oxygen Delivery Room Air 01/28/23 08:45 01/28/23 09:39 01/28/23 08:51 Temperature Pulse Rate Respiratory Rate Blood Pressure 185/79 H Pulse Oximetry 99 Oxygen Delivery Room Air Room Air Intake/Output Intake/Output: Intake & Output 01/25/23 01/26/23 01/27/23 01/28/23 23:59 23:59 23:59 23:59 Intake Total 270 / 270 1320 / 1320 1772 / 1772 740 / 740 Output Total 1100 / 1100 650 / 650 1850 / 1850 950 / 950 Balance -830 / -830 670 / 670 -78 / -78 -210 / -210 Meds/Results Medications: Active Medications Generic Name Dose Route Start Last Admin Trade Name Uche PRN Reason Stop Dose Admin Acetaminophen 650 mg 01/22/23 02:24 Acetaminophen 325 Mg Tablet PO Q6H PRN Mild Pain (1-3) or Fever Clonidine HCl 0.3 mg 01/22/23 09:00 01/28/23 08:51 Clonidine Hcl 0.1 Mg Tablet PO 0.3 mg BID USAMA Administration Dextrose 12.5 gm 01/21/23 17
[2023-01-28 12:09] LABS: Glucose Point of Care 173 mg/dl (65-105)
[2023-01-28 17:17] LABS: Glucose Point of Care 159 mg/dl (65-105)
[2023-01-28 21:55] LABS: Glucose Point of Care 164 mg/dl (65-105)
[2023-01-29] MEDS: traMADol HCL (*CRX) 50 MG TABLET 100 MG PO (03:53)
[2023-01-29 04:12] VITALS: BP 141/67; PULSE 64; RESP 18; TEMP 36.7; O2SAT 98
[2023-01-29 05:54] LABS: Hematocrit 40.8 % (37.0-47.0); Hemoglobin 13.8 g/dL (12.0-15.0); Mean Corpuscular HGB Conc 33.8 g/dl (32-36); Mean Corpuscular Hemoglobin 29.6 pg (26-34); Mean Corpuscular Volume 87.6 fl (80-100); Platelet Count Result 342 k/mm3 (150-375); Red Blood Count 4.66 M/mm3 (4.2-5.4); Red Cell Distribution Width 12.3 % (11.5-14.5); White Blood Count 15.8 K/mm3 (4.5-10.0)
[2023-01-29 06:07] LABS: Anion Gap 8 mmol/L (8-16); Blood Urea Nitrogen 26 mg/dL (7-17); Carbon Dioxide 27 mmol/L (22-30); Chloride 97 mmol/L (98-107); Estimated CRCL calculation 41 ml/min; Estimated Glomerular Filt Rate 55; Glucose 225 mg/dL (65-110); Magnesium 2.3 mg/dL (1.6-2.3); Potassium 3.7 mmol/L (3.4-5.0); Sodium 132 mmol/L (137-145)
[2023-01-29 08:26] VITALS: BP 132/73; PULSE 62
[2023-01-29 08:27] VITALS: PULSE 62
[2023-01-29] MEDS: METOPROLOL TARTRATE 50 MG TAB PO (08:27)
[2023-01-29] MEDS: cloNIDine HCL 0.1 MG TABLET 0.3 MG PO (08:27)
[2023-01-29] MEDS: NIFEdipine 30 MG TAB.ER.24 60 MG PO (08:27)
[2023-01-29] MEDS: hydroCHLOROthiazide 25 MG TABLET 50 MG PO (08:27)
[2023-01-29] MEDS: lisinopriL 20 MG TABLET 40 MG PO (08:27)
[2023-01-29] MEDS: GABAPENTIN 300 MG CAPSULE PO ×2 (08:27→12:36)
[2023-01-29] MEDS: INSULIN GLARGINE (*BKC) 100 UNITS/ML 17 UNITS SUB-Q (08:34)
[2023-01-29 08:35] LABS: Glucose Point of Care 137 mg/dl (65-105)
--- NOTE | 2023-01-29 10:14 | PCNWS ---
Weekly nutritional screen. Patient is tolerating current diet with adequate intake. No weight loss reported. No nutritional needs at this time.
--- NOTE | 2023-01-29 11:32 | PM.DS ---
DS: Admitting Diagnosis Discharge Date 01/29/2023 Admitting Diagnosis Hypertensive urgency DKA DS: Discharge Diagnosis Discharge Diagnosis (1) Hypertensive urgency: Code(s): I16.0 - Hypertensive urgency Status: Acute (2) New onset type 2 diabetes mellitus: Code(s): E11.9 - Type 2 diabetes mellitus without complications Status: Acute (3) Encephalopathy: Code(s): G93.40 - Encephalopathy, unspecified Status: Acute DS: Summary Hospital Course Hospital Course: Aggie Donald is a 73 year old female with a history of fibromyalgia, hypertension, anxiety presenting due to progressive weakness and aphasia. Patient had not been feeling well for several days. She had progressive generalized weakness, lethargy, chills, poor appetite, nausea, abdominal pain. She had gotten progressively week to the point that has to assist her to go to the bathroom. On the day prior to presentation, he noted that his speech was a little slurred and that she was not able to communicate as well. She was taken to the emergency department where her blood pressure was elevated to 196/101 on presentation. She received PRN dose of hydralazine and metoprolol without significant improvement in her BP. She was noted to be in mild DKA, and was newly diagnosed with diabetes (A1c 10.7). EKG showed sinus tachycardia. She was noted to have expressive aphasia but no other focal deficits on her exam per ED provider. 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 CTA brain/carotid showed no significant stenosis or occlusion. CT chest, abdomen, pelvis showed findings suggestive of subacute pyelonephritis vs subacute infarcts. Due to concerns for embolic source of renal infarct, echocardiogram was done which showed normal LV systolic function with EF > 70% and no evidence of shunt/clot. Patient was started on cefepime and vancomycin due to concurrent concerns for sepsis and admitted. 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 Neurology was consulted. They recommended patient to be started on aspirin 81 mg daily. Once the patient's DKA was resolved she was started on Lantus along with sliding scale insulin. Her blood pressure continued to be elevated so the patient was started on lisinopril along with hydrochlorothiazide. Clonidine was continued. Cardiology was consulted. They started the patient on nifedipine XL. Blood pressure improved with this regimen. Since patient has mild hyponatremia hydrochlorothiazide was discontinued. We will discontinue nifedipine XL and continue her on home dose of metoprolol 100 mg p.o. b.i.d. instead of the 50 mg p.o. b.i.d. that she was receiving here. Continue clonidine at home dose. Continue lisinopril. Patient will be discharged home on insulin Lantus 15 units HS along with Humalog 5 units t.i.d. with meals Time Spent with Patient Time attestation: Total time spent providing and/or coordinating discharge services: Exam Narrative: Patient is comfortable, NAD HEENT: eyes are clear and none icteric LUNGS: Normal respiratory ABD: Distended Lower extremities: no edema SKIN: nonjaundiced Neuro: grossly intact. DS: Data Data Completed and Pending Labs on day of discharge: Labs from last 24 hours 01/29/23 01/29/23 01/28/23 08:33 05:33 21:33 WBC 15.8 H RBC 4.66 Hgb 13.8 Hct 40.8 MCV 87.6 MCH 29.6 MCHC 33.8 RDW 12.3 Plt Count 342 MPV 10.0 Sodium 132 L Potassium 3.7 Chloride 97 L Carbon Dioxide 27 Anion Gap 8 BUN 26 H Creatinine 1.00 Estim Creat Clear Calc 41 Estimated GFR 55 L Glucose 225 H POC Capillary Glucose 137 H 164 H Calcium 8.0 L Magnesium 2.3 01/28/23 01/28/23 17:11 12:04 WBC RBC Hgb Hct MCV MCH MCHC RDW Plt Count MPV Sodium Potassium Chloride Carbon Dioxide Anion Gap
[2023-01-29 12:31] LABS: Glucose Point of Care 169 mg/dl (65-105)
--- NOTE | 2023-01-29 13:39 | PC.NURSE ---
Snuff Maker reviewed patients discharge medications and called Dr. Prince to discuss the changes. Changes made are final and good for discharge verbally spoken by MD.
--- NOTE | 2023-01-29 18:31 | PC.NURSE ---
Patient called after discharging. Pharmacy is telling patient they need us to send over a prescription for insulin syringes. Manager Heavy Duty called Dr Prince and he said he would send over orders. Patient called again and pharmacy is stating they need us to switch insulins from humalog to relion novolog due to patient not having insurance and send over a prescription for insulin syringes as the patient is not on pens they are on vials of insulin. Manager Heavy Duty called Dr Prince again but Dr Prince is no longer at hospital. Dr Prince told junior technical writer to call Dr. Diamond. Called Dr. Diamond and no answer at this time. Will try again.
== END 2023-01-29 15:27 | disposition home or self-care (01) | DRG 638 ==
LOC: ANHED 17:33 → ANHIMU 18:13 → ANH3MED 01-24 21:34
PROVIDERS: Chiropractor; Family Medicine; Physician Assistant; Student in an Organized Health Care Education/Training Program; Admitting Provider Internal Medicine; Emergency Provider Physician Assistant; PCP Family Medicine Adolescent Medicine; Visit Provider Hospitalist
DX: E11.10 Type 2 diabetes mellitus with ketoacidosis without coma (principal); G93.40 Encephalopathy, unspecified; R47.01 Aphasia; E86.0 Dehydration; I16.0 Hypertensive urgency; I10 Essential (primary) hypertension; D72.829 Elevated white blood cell count, unspecified; E11.40 Type 2 diabetes mellitus with diabetic neuropathy, unspecified; R77.8 Other specified abnormalities of plasma proteins; M19.90 Unspecified osteoarthritis, unspecified site; M79.7 Fibromyalgia; F41.1 Generalized anxiety disorder; Z86.73 Personal history of transient ischemic attack (TIA), and cerebral infarction without residual deficits; Z87.891 Personal history of nicotine dependence
CPT/HCPCS: 36415; 36600; 70450; 70496; 70498; 70553; 71046; 71275; 74177; 80048; 80053; 80202; 80307; 81001; 82010; 82140; 82375; 82550; 82565; 82607; 82805; 82948; 83036; 83050; 83605; 83690; 83721; 83735; 84100; 84443; 84484; 85025; 85027; 85610; 85730; 86140; 87040; 87086; 93005; 93306; 96361; 96374; 96375; 97110; 97161; 97165; 97530; 97535; 99285; A9270; A9577; G0378; J0360; J0692; J1815; J3370; J7030; J7120; Q9967

== ENCOUNTER 2023-07-11 11:29 | Inpatient (IN) | payer MEDICARE, MEDICAID, SELFPAY ==
[2023-07-11] VITALS (56 sets, daily range): BP systolic 102–162; BP diastolic 66–88; PULSE 56–84; RESP 6–18; TEMP 36.3; O2SAT 96–100
--- NOTE | ~2023-07-11 | XR_ITS ---
EXAMINATION: XR chest 2V DATE: 07/11/2023 19:38 INDICATION: Septic. TECHNIQUE: Frontal and lateral views of the chest were obtained. COMPARISON: Chest 2 views 01/21/2023, CT abdomen and pelvis 07/11/2023 FINDINGS: There is mild scarring at the lung apices. There is no pneumonia, pleural effusion, or pneu mothorax. The heart size is normal. IMPRESSION: 1. Stable mild scarring at the lung apices. Reviewed, dictated and finalized at location E. EW RN
--- NOTE | ~2023-07-11 | CT_ITS ---
EXAMINATION: CT abdomen pelvis wo con DATE: 07/11/2023 13:29 INDICATION: Left lower quadrant pain TECHNIQUE: Computed tomography (CT) of the abdomen and pelvis was performed without intravenous contr ast. The dose-length product (DLP) was 610.15 mGy-cm. Automated exposure control and iterative recons truction technique were employed. COMPARISON: 01/21/2023 FINDINGS: Minimal dependent atelectasis and emphysema are present in the lung bases. The heart size i s normal. Calcified coronary artery atherosclerosis is noted. Punctate calcifications in an otherwise normal spleen likely represent healed granulomatous disease. The liver, pancreas, and adrenal glands are normal. Stones are present in the nondistended gallbladder. There is mild atrophy of the kidneys . There is calcified atherosclerosis of the aorta and many of the other arteries. No pathologically e nlarged abdominal or pelvic lymph nodes are identified. A moderate volume of colonic stool is present . No free intraperitoneal gas or evidence of bowel obstruction. The appendix is normal. Colonic diver ticulosis is present without evidence of diverticulitis. There is severe lumbar spondylosis. A chroni c compression fracture of L1 is again noted. IMPRESSION: 1. Constipation. Reviewed, dictated and finalized at location L. [facility] IMPRESSION: 1. Constipation.
--- NOTE | ~2023-07-11 | XR_ITS ---
EXAMINATION: XR chest 2V DATE: 07/13/2023 09:50 INDICATION: Cough. TECHNIQUE: Frontal and lateral views of the chest were obtained. COMPARISON: Chest 2 views 07/11/2023, CT abdomen and pelvis 07/11/2023 FINDINGS: There is mild scarring at the lung apices. No pleural effusion or pneumothorax. The heart s ize is normal. IMPRESSION: 1. Stable mild scarring at the lung apices. Reviewed, dictated and finalized at location A. [employer]
[2023-07-11 11:56] LABS: Hemoglobin 12.4 g/dL (12.0-15.0); Immature Platelet Fraction Pct 6.3 % (0.9-11.2); Mean Corpuscular HGB Conc 34.4 g/dl (32-36); Mean Corpuscular Hemoglobin 30.2 pg (26-34); Mean Corpuscular Volume 87.6 fl (80-100); Red Blood Count 4.11 M/mm3 (4.2-5.4); Red Cell Distribution Width 11.9 % (11.5-14.5); White Blood Count 19.4 K/mm3 (4.5-10.0)
[2023-07-11] MEDS: MORPHINE SULFATE (*CRX) 4 MG/ML INJ IV PUSH (12:09)
[2023-07-11 12:20] LABS: Band Neutrophils Percent 2 % (0-6); Eosinophils Absolute Manual 0.19 K/mm3 (0.02-0.5); Eosinophils Percent Manual 1 % (0-4); Lymphocytes Absolute Manual 5.23 K/mm3 (1.1-4.5); Lymphocytes Percent Manual 27 % (18-44); Monocytes Absolute Manual 1.35 K/mm3 (0.1-0.90); Monocytes Percent Manual 7 % (3-9); Neutrophils Absolute Manual 12.61 K/mm3 (1.7-7.2); Neutrophils Percent Manual 63 % (46-73); Total Cells Counted 100
[2023-07-11 12:23] LABS: Platelet Clumps Present; Schistocytes None Seen (NORMAL)
[2023-07-11 13:03] LABS: Alanine Aminotransferase 20 U/L (6-35); Albumin Level 4.9 g/dL (3.5-5.1); Alkaline Phosphatase 73 U/L (38-126); Anion Gap 15 mmol/L (8-16); Aspartate Amino Transferase 29 U/L (14-36); Bilirubin,Total 0.7 mg/dL (0.2-1.3); Calcium 9.8 mg/dL (8.4-10.2); Carbon Dioxide 30 mmol/L (22-30); Chloride 84 mmol/L (98-107); Estimated CRCL calculation 7 ml/min; Estimated Glomerular Filt Rate 8; Glucose 120 mg/dL (65-110); Lipase 142 U/L (23-300); Potassium 4.2 mmol/L (3.4-5.0); Sodium 129 mmol/L (137-145)
[2023-07-11 13:08] LABS: Appearance Urine Clear (Clear); Bilirubin Urine Negative (Negative); Blood Urine Negative (Negative); Color Urine Yellow (Yellow); Glucose Urine UA Negative (Negative); Ketones Urine Negative (Negative); Leukocyte Esterase Ur Negative LEU/UL (Negative); Nitrate Urine Negative (Negative); Protein Urine Negative (Negative); Specific Grav Ur 1.008 (1.001-1.035); Urobilinogen Urine 0.2 mg/dL (<2.0)
[2023-07-11 13:19] LABS: Add Urine Microscopic? NO
[2023-07-11 13:25] LABS: Blood Urea Nitrogen 133 mg/dL (7-17)
--- NOTE | 2023-07-11 13:40 | ED.ABDPAIN ---
HPI - Abdominal Pain General Chief Complaint: Abdominal Pain Stated Complaint: abd pain, N/V Time Seen by Provider: 07/11/23 11:53 History of Present Illness HPI narrative: Patient is a 73-year-old female who presents ER with weakness and abdominal pain. Abdominal pain is left-sided and sharp. Worse with any type of movement. She reports constipation but has been passing gas. She also reports decreased urination due to her weakness and inability to get up. She reports she has been eating and drinking. No fevers chills or sweats. She has nausea with vomiting. She is found no alleviating factors. She had recently been seen by her PCP who placed her on a PPI as well as Zofran and metoclopramide. Related Data Home Medications Medication Instructions Recorded Confirmed insulin glargine 100 unit/mL 10 unit subcut QPM 06/05/23 subcutaneous solution (Lantus U-100 Insulin) Allergies Allergy/AdvReac Type Severity Reaction Status Date / Time amoxicillin [From Augmentin] Allergy Unknown Verified 07/11/23 11:47 clavulanic acid Allergy Unknown Verified 07/11/23 11:47 [From Augmentin] Review of Systems Review of Systems: All systems reviewed & are unremarkable except as noted in HPI and below Constitutional: Constitutional: Denies chills, Reports fatigue and Denies fever(s) ENT: Denies nasal congestion and Denies sore throat Cardiovascular: Cardiovascular: Reports no additional cardiovascular complaints Respiratory: Respiratory: Reports no additional respiratory complaints Gastrointestinal: Gastrointestinal: Reports abdominal pain, Reports constipation, Denies diarrhea, Reports nausea and Reports vomiting Genitourinary: Genitourinary: Denies dysuria, Denies pelvic pain and Denies flank pain Comments: Decreased urination PMFSH Past Medical History Medical History Essential (primary) hypertension Fibromyalgia Generalized anxiety disorder Surgical History Surgical History History of tubal ligation (~1989) Family History Family History Grandparent Acute myocardial infarction Cerebrovascular accident Heart disease Mother Colon polyp Diabetes mellitus Pancreatic adenocarcinoma Other Depression Hypertension Social History Social History (Updated 02/01/23 @ 10:08 by Terrence Evans [facility]) Social History: Surrogate medical decision maker: Shravan Ramsay, spouse. Code status: Full code. Smoking status: Former smoker Second hand tobacco smoke exposure: No Smoking end date: 09/02/85 Alcohol intake: never Substance use: current Substance use type: marijuana Lack of Transportation: No Lack of Food: Never True Current Housing: I Have Housing Concerned About Future Housing: No Difficulty Paying Gas/Electric Bills: No Difficulty Paying for Meds: No Currently Unemployed: No Education: High School Diploma/GED Difficulty w/ Childcare or Family Care: No Living arrangements: with family Occupation/Education: retired Spiritual care concerns: No Agree to blood products: Yes Exam Narrative: GENERAL: Chronically ill and fatigued-appearing, well-nourished, and in no acute distress. HEAD: Normocephalic, atraumatic. EYES: PERRL and EOMI. ENT: Dry mucous membranes. CHEST: Clear to auscultation. No respiratory distress. HEART: Regular rate and rhythm. Normal peripheral pulses. ABDOMEN: Soft, tender palpation left lower quadrant with guarding, nondistended, normal active bowel sounds. EXTREMITIES: Normal range of motion. No edema. SKIN: Warm, dry, no rash. NEURO: Alert and oriented x3. PSYCH: Normal mood and affect. Course Course Emergency Course: Patient admitted to the hospitalist service. Patient had provided urine and then was straight cath and still had additio
[2023-07-11] MEDS: SODIUM CHLORIDE 0.9% IV 1,600 ML/1,000 ML BAG 999 ML IV CONT ×2 (13:58→14:56)
[2023-07-11 14:24] LABS: Lactic Acid Reflex 1.4 mmol/L (0.7-2.0)
[2023-07-11] MEDS: metroNIDAZOLE 500 MG/ISO 100ML 500 MG/100 ML BAG 100 MG IVPB ×2 (14:55→22:24)
--- NOTE | 2023-07-11 16:37 | PM.IMHP ---
H&P: HPI History of Present Illness Date/Time: 07/11/23 16:37 Chief Complaint: Weakness Narrative: 73 y/o F presents here with weakness, N/V, and lower abdominal pain with PMH of HTN, fibromyalgia, DM, and SHEYLA. Patient reports that she is unable to provide a detailed hx at this time due to illness and recent increase in confusion, estimates this has worsened in the last 6 months. HPI obtained through patient interview, 's additions, chart review, and ED provider report. Patient presented to her PCP on 07/03 complaining of nausea, vomiting, and retching approximately 30-60 minutes after eating. Noted to have a 10 lb weight loss over the last month. N/V accompanied by belching and epigastric pain. Treated for PUD/gastritis with 30 day trial of pantoprazole BID, zofran prn, and metoclopramide before meals. Patient recently placed on metformin prior to sick visit in office, med started due to A1C of 7 and DM1 r/o, was on insulin only - IA2 autoantibody, insulin autoantibody, and GAD65 ab negative. Here today with lower left abdominal pain, N/V, constipation and decreased urine output. Last BM believed to be before Sun, exact date unknown. Reports these symptoms have been gradually worsening over the last 2+ weeks. Endorsing chills. +rigors. No diarrhea, SOB, CP, or fever. Review of Systems Review of Systems: All systems reviewed & are unremarkable except as noted in HPI and below PMFSH Past Medical History Medical History (Updated 07/11/23 @ 23:56 by Lauren Patel APRN) Arthralgia of multiple joints Bilateral primary osteoarthritis of knee DM2 (diabetes mellitus, type 2) Essential (primary) hypertension Fibromyalgia Generalized anxiety disorder Non-ST elevated myocardial infarction (non-STEMI) Osteoarthritis Osteoarthritis of hands, bilateral Surgical History Surgical History History of tubal ligation (~1989) Family History Family History Grandparent Acute myocardial infarction Cerebrovascular accident Heart disease Mother Colon polyp Diabetes mellitus Pancreatic adenocarcinoma Other Depression Hypertension Social History Social History (Updated 07/11/23 @ 22:48 by Lauren E. Jorge, DIRECTOR COMPENSATION) Social History: Surrogate medical decision maker: Shravan Ramasy, spouse. Code status: Full code. Smoking status: Former smoker Second hand tobacco smoke exposure: No Smoking end date: 09/02/85 Alcohol intake: never Substance use: current Substance use type: marijuana Lack of Transportation: No Lack of Food: Never True Current Housing: I Have Housing Concerned About Future Housing: No Difficulty Paying Gas/Electric Bills: No Difficulty Paying for Meds: No Currently Unemployed: No Education: High School Diploma/GED Difficulty w/ Childcare or Family Care: No Living arrangements: with family Occupation/Education: retired Spiritual care concerns: No Agree to blood products: Yes Meds Home Medications and Allergies Home Medications Medication Instructions Recorded Confirmed Type lancet with blood glucose test #300 ea 01/29/23 05/20/23 Rx strips and pen needles combo pack furosemide 40 mg tablet 40 mg PO QAM #90 tabs 02/11/23 05/20/23 Rx insulin lispro 100 unit/mL 5 unit (0.05 mL) subcut TID #10 mL 03/27/23 05/20/23 Rx subcutaneous solution chlorthalidone 25 mg tablet 25 mg PO DAILY #90 tabs 04/17/23 05/20/23 Rx irbesartan 300 mg tablet 300 mg PO DAILY #90 tabs 04/29/23 05/20/23 Rx tramadol 50 mg tablet 100 mg PO QID PRN pain #240 tabs 04/29/23 05/20/23 Rx metoprolol tartrate 100 mg tablet 100 mg PO BID #180 tabs 05/07/23 05/20/23 Rx clonidine HCl 0.3 mg tablet 0.3 mg PO BID #60 tabs 05/09/23 05/20/23 Rx amlodipine 5 mg tablet 5 mg PO DAILY #90 tabs 05/20/23 05/20/23 Rx atorvastatin 20 mg tablet 20 mg PO DAILY #90 tabs 05/03
[2023-07-11] MEDS: SODIUM CHLORIDE 0.9% IV 1,000 ML 125 ML IV CONT (17:18)
--- NOTE | 2023-07-11 17:30 | PC.NURSE ---
This RN called dietary and ordered a dinner tray for pt at this time.
--- NOTE | 2023-07-11 19:20 | PC.NURSE ---
This RN assumed care of patient. THis RN took patient report from PAUL Miller.
[2023-07-11 21:11] LABS: Alanine Aminotransferase 20 U/L (6-35); Albumin Level 4.4 g/dL (3.5-5.1); Alkaline Phosphatase 70 U/L (38-126); Aspartate Amino Transferase 34 U/L (14-36); Bilirubin,Total 0.7 mg/dL (0.2-1.3); Creatine Kinase 68 U/L (30-135)
[2023-07-11 21:24] LABS: Erythrocyte Sedimentation Rate 49 mm/hr (0-20)
[2023-07-11] MEDS: polyethylene glycoL 3350 17 GM POWD.PACK PO (21:28)
[2023-07-11] MEDS: DOCUSATE SODIUM 100 MG CAPSULE PO (21:28)
[2023-07-11 21:45] LABS: Hepatitis B Surface Antigen Negative (Negative)
[2023-07-11 21:48] LABS: HIV 1/2 Ab P24 Ag Result Negative (Negative)
[2023-07-11 21:50] LABS: Hepatitis B Core IgM Result Negative (Negative)
[2023-07-11] MEDS: HYDROcodone/acetaminophen (*CRX) 5-325 MG TABLET 1 TAB PO (21:54)
[2023-07-11 22:03] LABS: Hepatitis B Surface Anti Res Negative; Hepatitis C Virus Antibody Negative (Negative)
--- NOTE | 2023-07-11 22:52 | PC.NURSE ---
This RN spoke hospitalistLauren due to pt having increased anxiety about pain, personal issues, and other issues. Pt states she usually smokes weed every night to calm her down . Pt began to cry. Hospitalist ordered morphine for patient.
[2023-07-11 23:33] LABS: Barbiturate Screen Urine Negative (Negative)
[2023-07-11 23:37] LABS: Benzodiazepines Screen Urine Negative (Negative)
[2023-07-11 23:51] LABS: Amphetamine Screen Urine Negative (Negative); Cannabinoid Screen Urine Positive (Negative); Cocaine Screen Urine Negative (Negative); Methadone Screen Urine Negative (Negative); Opiate Screen Urine Negative (Negative); Phencyclidine Screen Urine Negative (Negative)
[2023-07-12] VITALS (14 sets, daily range): BP systolic 114–156; BP diastolic 60–88; PULSE 71–111; RESP 12–20; TEMP 36.2–37; O2SAT 97–100; BMI 24.3
--- NOTE | 2023-07-12 00:29 | PC.NURSE ---
This RN did not administer hydralazine 0.20ml due to pt blood pressure being 114/63. This RN contacted hospitalist Dr. Sheridan who confirmed not to give the medication.
[2023-07-12] MEDS: SODIUM CHLORIDE 0.9% IV 1,000 ML 125 ML IV CONT ×3 (01:43→22:12)
--- NOTE | 2023-07-12 02:00 | ADMGEN ---
This patient, Aggie Donald, was admitted to IMU Room 231-01 on 07/12/2023 at 0135. Patient/family oriented to hospital policies and general routines including ID bracelet, bed and alarms, visiting hours, pain management, procedures, bathroom and other care routines, personal items, smoking policy, room service/diet, and visiting hours. Information on how to activate the Rapid Response Team has been discussed. Patient/Family are encouraged to report perceived risks to care and to ask questions if they do not understand what they are told or what they should do.
[2023-07-12 02:07] LABS: Creatinine Urine 44.2 mg/dL; Total Protein Urine Random 16 mg/dL; Ur Ttl Prot Creatinine Ratio 0.36 mg/mg (0-0.20); Urea Random Urine 524 MG/DL
[2023-07-12 02:18] LABS: Sodium Urine Random 72 meq/L
[2023-07-12 05:02] LABS: Basophils Absolute Auto 0.1 K/mm3 (0.0-0.1); Basophils Percent Auto 0.6 % (0.2-1.2); Eosinophils Absolute Auto 0.2 K/mm3 (0-0.3); Eosinophils Percent Auto 1.6 % (0-4.4); Hematocrit 31.6 % (37.0-47.0); Immature Granulocyte Absolute 0.04 K/mm3 (0.00-0.031); Immature Granulocyte Percent A 0.3 % (0-0.5); Lymphocytes Absolute Auto 3.27 K/mm3 (0.9-3.2); Lymphocytes Percent Auto 22.8 % (18.3-44.2); Mean Corpuscular HGB Conc 34.8 g/dl (32-36); Mean Corpuscular Hemoglobin 29.9 pg (26-34); Mean Corpuscular Volume 85.9 fl (80-100); Monocytes Absolute Auto 1.1 K/mm3 (0.1-0.6); Monocytes Percent Auto 7.7 % (2.6-8.5); Neutrophils Absolute Auto 9.6 K/mm3 (1.3-6.7); Platelet Count Result 304 k/mm3 (150-375); Red Blood Count 3.68 M/mm3 (4.2-5.4); Red Cell Distribution Width 11.7 % (11.5-14.5); White Blood Count 14.4 K/mm3 (4.5-10.0)
[2023-07-12 05:13] LABS: Alanine Aminotransferase 18 U/L (6-35); Alkaline Phosphatase 64 U/L (38-126); Anion Gap 10 mmol/L (8-16); Aspartate Amino Transferase 24 U/L (14-36); Bilirubin,Total 0.6 mg/dL (0.2-1.3); Blood Urea Nitrogen 100 mg/dL (7-17); Calcium 8.9 mg/dL (8.4-10.2); Carbon Dioxide 29 mmol/L (22-30); Chloride 95 mmol/L (98-107); Estimated CRCL calculation 13 ml/min; Estimated Glomerular Filt Rate 13; Glucose 142 mg/dL (65-110); Magnesium 2.3 mg/dL (1.6-2.3); Potassium 3.8 mmol/L (3.4-5.0); Sodium 134 mmol/L (137-145)
[2023-07-12] MEDS: metroNIDAZOLE 500 MG/ISO 100ML 500 MG/100 ML BAG 100 MG IVPB ×3 (06:11→21:51)
[2023-07-12] MEDS: ONDANSETRON INJ 4 MG/2 ML VIAL IV PUSH (06:25)
[2023-07-12 06:48] LABS: Glucose Point of Care 122 mg/dl (65-105)
[2023-07-12 07:32] LABS: Glucose Point of Care 131 mg/dl (65-105)
[2023-07-12] MEDS: DOCUSATE SODIUM 100 MG CAPSULE PO ×2 (09:37→21:48)
[2023-07-12] MEDS: HEPARIN SODIUM 5,000 UNITS/ML VIAL 5000 UNITS SUB-Q ×2 (09:37→21:47)
[2023-07-12] MEDS: polyethylene glycoL 3350 17 GM POWD.PACK PO (09:44)
--- NOTE | 2023-07-12 10:17 | P.PNIM_ITS ---
Progress Note: A&P Assessment and Plan (1) RENEA (acute kidney injury): Code(s): N17.9 - Acute kidney failure, unspecified Status: Acute (2) Constipation: Qualifiers: Constipation type: unspecified constipation type Qualified Code(s): K59.00 - Constipation, unspecified Code(s): K59.00 - Constipation, unspecified Status: Acute (3) Hyponatremia: Code(s): E87.1 - Hypo-osmolality and hyponatremia Status: Acute (4) Nausea & vomiting: Qualifiers: Vomiting type: bilious vomiting Qualified Code(s): R11.14 - Bilious vomiting Code(s): R11.2 - Nausea with vomiting, unspecified Status: Acute (5) Abdominal pain: Code(s): R10.9 - Unspecified abdominal pain Status: Acute Plan Problem List 1. RENEA * high suspicion for post-renal due to urinary retention/infection secondary to constipation. WBC elevated at 19.4. * does not meet SIRS criteria, given ill appearance and rigors - blood cultures sent, lactic WNL. * creatinine 5.5, previously 1.89 on 06/10/23 and 1.0 on 01/29/23 * BUN 133, ECC 7, GFR 8 * UA: unremarkable * UC pending * add hepatitis panel, CK, creatinine urine, CRP, ESR, hep B antibody/antigen, hep C reflex, HIV osmolality, sodium urine, total protein creatinine, urea random * consult - nephrology * starr placed * monitor I&Os * Fluid resuscitation: 1 L NS bolus, maintenance of 125 mL/hr following. * Creatinine trending down. 2. constipation * CT abd wo con: Constipation, mild atrophy of the kidneys. * docusate Q12 * miralax QAM * NS enema PRN 3. hyponatremia * Na 129 * hypoNa w/u urea osmosity protein to creatinine ratio urine creatinine trend creatinine * Monitor * Sodium up to 134 4. abdominal pain * CT abd - constipation, treating * pain management: tyl, norco, morphine * assoc w/nausea and vomiting - known marijuana use, add UDS otherwise remarkable * zofran prn * Start Fleet enema once 5. DM2 * Hypoglycemia protocol * POC blood glucose ACHS * home medication held - has not been verified, last glucose 122 * correct regimen ordered - low dose TIDWM and HS * A1C 7 on 06/10/23 Home Meds/Chronic Conditions - home meds all held, not verified. hydralazine 10 mg IVP PRN for BP over 180/100. Diet: clear liquid diet as tolerated GI Prophylaxis: not currently indicated DVT Prophylaxis: SCDs, heparin SQ BID Lines: pIV Code Status: Full Code Subjective Date/time seen: 07/12/23 10:17 Interval history: Patient feels better, creatinine and BUN is trending down, afebrile, blood pressure stable, leukocytosis improving, no obvious sign of infection Exam Narrative: GENERAL: Pleasant, in no acute distress. Well-nourished. - EYES: EOMI. Anicteric. - HENT: Moist mucous membranes. - LUNGS: Clear to auscultation bilateral ly, no wheezing, rhonchi, or rales. - CARDIOVASCULAR: Regular rate and rhyth m. No murmur. No JVD. - ABDOMEN: Soft, non-tender and non-dist ended. No palpable masses. - EXTREMITIES: No edema. Peripheral puls es 2+. Non-tender. - NEUROLOGIC: No focal neurological defi cits. CN II-XII grossly intact.
--- NOTE | 2023-07-12 10:17 | PM.IMPN ---
Progress Note: A&P Assessment and Plan (1) RENEA (acute kidney injury): Code(s): N17.9 - Acute kidney failure, unspecified Status: Acute (2) Constipation: Qualifiers: Constipation type: unspecified constipation type Qualified Code(s): K59.00 - Constipation, unspecified Code(s): K59.00 - Constipation, unspecified Status: Acute (3) Hyponatremia: Code(s): E87.1 - Hypo-osmolality and hyponatremia Status: Acute (4) Nausea & vomiting: Qualifiers: Vomiting type: bilious vomiting Qualified Code(s): R11.14 - Bilious vomiting Code(s): R11.2 - Nausea with vomiting, unspecified Status: Acute (5) Abdominal pain: Code(s): R10.9 - Unspecified abdominal pain Status: Acute Plan Problem List 1. RENEA high suspicion for post-renal due to urinary retention/infection secondary to constipation. WBC elevated at 19.4. does not meet SIRS criteria, given ill appearance and rigors - blood cultures sent, lactic WNL. creatinine 5.5, previously 1.89 on 06/10/23 and 1.0 on 01/29/23 BUN 133, ECC 7, GFR 8 UA: unremarkable UC pending add hepatitis panel, CK, creatinine urine, CRP, ESR, hep B antibody/antigen, hep C reflex, HIV osmolality, sodium urine, total protein creatinine, urea random consult - nephrology starr placed monitor I&Os Fluid resuscitation: 1 L NS bolus, maintenance of 125 mL/hr following. Creatinine trending down. 2. constipation CT abd wo con: Constipation, mild atrophy of the kidneys. docusate Q12 miralax QAM NS enema PRN 3. hyponatremia Na 129 hypoNa w/u urea osmosity protein to creatinine ratio urine creatinine trend creatinine Monitor Sodium up to [address] abd - constipation, treating pain management: tyl, norco, morphine assoc w/nausea and vomiting - known marijuana use, add UDS otherwise remarkable zofran prn Start Fleet enema once 5. DM2 Hypoglycemia protocol POC blood glucose ACHS home medication held - has not been verified, last glucose 122 correct regimen ordered - low dose TIDWM and HS A1C 7 on 06/10/23 Home Meds/Chronic Conditions - home meds all held, not verified. hydralazine 10 mg IVP PRN for BP over 180/100. Diet: clear liquid diet as tolerated GI Prophylaxis: not currently indicated DVT Prophylaxis: SCDs, heparin SQ BID Lines: pIV Code Status: Full Code Subjective Date/time seen: 07/12/23 10:17 Interval history: Patient feels better, creatinine and BUN is trending down, afebrile, blood pressure stable, leukocytosis improving, no obvious sign of infection Exam Narrative: GENERAL: Pleasant, in no acute distress. Well-nourished. - EYES: EOMI. Anicteric. - HENT: Moist mucous membranes. - LUNGS: Clear to auscultation bilaterally, no wheezing, rhonchi, or rales. - CARDIOVASCULAR: Regular rate and rhythm. No murmur. No JVD. - ABDOMEN: Soft, non-tender and non-distended. No palpable masses. - EXTREMITIES: No edema. Peripheral pulses 2+. Non-tender. - NEUROLOGIC: No focal neurological deficits. CN II-XII grossly intact. - PSYCHIATRIC: Awake, Alert and oriented x 3. Appropriate mood and affect. - SKIN: No rashes or lesions. Warm. - LYMPH: No cervical lymphadenopathy. Objective Data Vital Signs Vital Signs: Vital Signs - 24 hr 07/11/23 11:34 07/11/23 12:03 07/11/23 12:57 Temperature 97.4 F L Pulse Rate 57 L 56 L 60 Respiratory Rate 16 16 18 Blood Pressure 152/77 H 145/70 H 162/88 H Pulse Oximetry 98 99 100 Oxygen Delivery 07/11/23 13:59 07/11/23 15:37 07/11/23 16:37 Temperature Pulse Rate 69 74 84 Respiratory Rate 14 12 Blood Pressure 140/78 125/71 Pulse Oximetry 100 98 Oxygen Delivery 07/11/23 17:18 07/11/23 18:40 07/11/23 12:20 Temperature Pulse Rate 74 78 57 L Respiratory Rate 12 14 8 L Blood Pressure 102/69 121/70 Pulse Oximetry 100 97 98 Oxygen Delivery 07/11/23 12:30 07/11/23 12:45 1
[2023-07-12] MEDS: HYDROcodone/acetaminophen (*CRX) 5-325 MG TABLET 1 TAB PO ×2 (10:35→17:45)
--- NOTE | 2023-07-12 10:45 | PM.CNNEP ---
Assessment and Plan Assessment and plan (1) RENEA (acute kidney injury): Code(s): N17.9 - Acute kidney failure, unspecified Status: Acute Assessment and Plan: improvement noted since admission creatinine 1.89mg/dl in 06/10/23; 1.0mg/dl on 01/29/23 suspicion falls on urinary retention along with prerenal factors as etiology of RENEA/ARF straight cath in ER yielded 200cc of urine subsequent starr placement in ER with 600cc urine output exacerbated by constipation(?) evaluation to date noted: UA unremarkable urine electrolytes non-prerenal urine eosinophils pending CPK normal CT imaging with mild atrophy of the kidneys trial of IVFs follow repeat labs and UOP (2) Abdominal pain: Code(s): R10.9 - Unspecified abdominal pain Status: Acute Assessment and Plan: secondary to constipation (?) CT imaging on admission otherwise negative started on bowel regimen (3) Essential (primary) hypertension: Code(s): I10 - Essential (primary) hypertension Status: Chronic Assessment and Plan: reasonable control at this time follow trend of hemodynamics (4) DM2 (diabetes mellitus, type 2): Code(s): E11.9 - Type 2 diabetes mellitus without complications Status: Chronic Assessment and Plan: follow accu-cheks glycemic control per hospitalists I will continue follow the patient with you while she remains hospitalized make further recommendations as needed. Thank you for allowing me to participate in the care of this patient History of Present Illness Reason for Consult Consult date: 07/12/23 Reason for consult: acute renal failure Chief Complaint Chief complaint: renea,uremia,constipation History of Present Illness Narrative: The patient is a 73-year-old female with a past medical history as outlined below who presented to [facility] Emergency Room with complaints of generalized weakness.A great majority of the history is obtained from review of the electronic medical record as well as discussion with the physician/nurses involved in the patient's care as the patient seems to be somewhat confused at the time my visit. Apparently, the patient has been having issues with nausea, vomiting, lower abdominal pain in association with weakness that seems to have progressively worsened in the last several weeks. Associated symptoms included the above-mentioned confusion as well. She apparently has lost about 10 lb in the last month and the reports that he believes that she has been slowly worsening/ deteriorating in the last 6 months. She apparently has been having issues with nausea, vomiting, and retching just about every time she eats approximately 30-60 minutes later. Her primary care physician did try a trial of proton pump inhibitors and antiemetics as well as right gland but this does not seem to have improved her symptoms. As the symptoms in issues have been progressively getting worse, she presented to the emergency room for further assessment. Workup and evaluation emergency room demonstrated the patient be hemodynamically stable but in mild distress secondary to her nausea, vomiting, abdominal pain, and generalized weakness. Routine blood test demonstrated significant acute kidney injury/acute renal failure with a BUN of 133 and a creatinine of 5.5 mg/dL and, surprisingly, no critical electrolyte abnormalities. Her CBC was notable for an elevated white blood cell count as well. Given her symptoms, she had a CT scan of the abdomen pelvis which did not show any acute intra-abdominal pathology other than constipation and bilateral renal atrophy. Her urinalysis was essentially negative as well. Her CT scan did show retention of urine despite a previous straight cath so there was concern that obstructive uropathy may be playing a role with her renal dysfunction and a Starr catheter was placed in the emergency room with almost 600 cc o
[2023-07-12 12:17] LABS: Glucose Point of Care 209 mg/dl (65-105)
[2023-07-12] MEDS: INSULIN ASPART (*BKC) 100 UNITS/ML SUB-Q (12:40)
[2023-07-12] MEDS: LACTULOSE 20 GM/30 ML UDC PO (17:30)
--- NOTE | 2023-07-12 18:19 | PC.NURSE ---
This patient, Aggie Donald, was received from [facility] on 07/12/23 at 1820. Patient/family oriented to unit policies and routines
--- NOTE | 2023-07-12 18:21 | PC.NURSE ---
This patient, Aggie Donald, was transferred to [ [facility]-] on 07/12/23 at 1818. Personal belongings sent with patient. Report given to [Pavel MILLER ]. Appropriate documentation sent with patient.
[2023-07-12 18:26] LABS: Glucose Point of Care 127 mg/dl (65-105)
[2023-07-12 21:40] LABS: Glucose Point of Care 172 mg/dl (65-105)
[2023-07-12] MEDS: MORPHINE SULFATE (*CRX) 2 MG/ML INJ IV PUSH (21:48)
[2023-07-13] VITALS (12 sets, daily range): BP systolic 86–170; BP diastolic 52–84; PULSE 69–130; RESP 14–20; TEMP 36.3–36.9; O2SAT 96–98
[2023-07-13] MEDS: HYDROcodone/acetaminophen (*CRX) 5-325 MG TABLET 1 TAB PO ×2 (05:08→09:25)
[2023-07-13] MEDS: cloNIDine HCL 0.1 MG TABLET 0.3 MG PO ×2 (05:09→17:50)
[2023-07-13] MEDS: metroNIDAZOLE 500 MG/ISO 100ML 500 MG/100 ML BAG 100 MG IVPB ×3 (05:09→21:59)
[2023-07-13] MEDS: METOPROLOL TARTRATE 50 MG TAB 100 MG PO (05:09)
[2023-07-13] MEDS: MORPHINE SULFATE (*CRX) 2 MG/ML INJ IV PUSH (06:27)
--- NOTE | 2023-07-13 06:36 | ECG_ITS ---
Measurements Intervals [place] Rate: 128 P: 64 NH: 162 QRS: -12 QRSD: 85 T: 69 QT: 314 QTc: 458 Interpretive Statements SINUS TACHYCARDIA LOW QRS VOLTAGE IN PRECORDIAL LEADS INFERIOR INFARCT, AGE INDETERMINATE BORDERLINE ST ABNORMALITY- HIGH LATERAL LEADS ABNORMAL ECG COMPARED TO ECG 01/21/2023 17:23:01 HEART RATE HAS INCREASED MYOCARDIAL INFARCT FINDING NOW PRESENT ST-T WAVE ABNORMALITY NOW PRESENT Electronically Signed On 07-13-2023 7:05:58 [employer] by Chalino Navarro D.O.
[2023-07-13] MEDS: METOPROLOL TARTRATE INJ 5 MG/5 ML VIAL IV PUSH (07:15)
[2023-07-13 07:53] LABS: Glucose Point of Care 185 mg/dl (65-105)
[2023-07-13 08:14] LABS: Basophils Absolute Auto 0.2 K/mm3 (0.0-0.1); Basophils Percent Auto 0.9 % (0.2-1.2); Eosinophils Percent Auto 0.1 % (0-4.4); Hematocrit 34.2 % (37.0-47.0); Hemoglobin 11.6 g/dL (12.0-15.0); Immature Granulocyte Absolute 0.11 K/mm3 (0.00-0.031); Immature Granulocyte Percent A 0.5 % (0-0.5); Lymphocytes Absolute Auto 1.87 K/mm3 (0.9-3.2); Lymphocytes Percent Auto 9.2 % (18.3-44.2); Mean Corpuscular HGB Conc 33.9 g/dl (32-36); Mean Corpuscular Hemoglobin 30.1 pg (26-34); Mean Corpuscular Volume 88.8 fl (80-100); Mean Platelet Volume 10.8 fl (7.4-10.4); Monocytes Absolute Auto 1.9 K/mm3 (0.1-0.6); Monocytes Percent Auto 9.1 % (2.6-8.5); Neutrophils Absolute Auto 16.2 K/mm3 (1.3-6.7); Neutrophils Percent Auto 80.2 % (45.5-73.1); Platelet Count Result 370 k/mm3 (150-375); Red Blood Count 3.85 M/mm3 (4.2-5.4); White Blood Count 20.2 K/mm3 (4.5-10.0)
[2023-07-13 08:29] LABS: Phosphorus 3.8 mg/dL (2.5-4.5)
[2023-07-13 08:34] LABS: Alanine Aminotransferase 17 U/L (6-35); Albumin Level 4.2 g/dL (3.5-5.1); Alkaline Phosphatase 72 U/L (38-126); Anion Gap 17 mmol/L (8-16); Aspartate Amino Transferase 21 U/L (14-36); Bilirubin,Total 0.8 mg/dL (0.2-1.3); Blood Urea Nitrogen 49 mg/dL (7-17); Calcium 9.2 mg/dL (8.4-10.2); Carbon Dioxide 23 mmol/L (22-30); Chloride 103 mmol/L (98-107); Estimated CRCL calculation 21 ml/min; Estimated Glomerular Filt Rate 25; Glucose 193 mg/dL (65-110); Sodium 143 mmol/L (137-145)
--- NOTE | 2023-07-13 09:07 | P.PNIM_ITS ---
Progress Note: A&P Assessment and Plan (1) RENEA (acute kidney injury): Code(s): N17.9 - Acute kidney failure, unspecified Status: Acute (2) Constipation: Qualifiers: Constipation type: unspecified constipation type Qualified Code(s): K59.00 - Constipation, unspecified Code(s): K59.00 - Constipation, unspecified Status: Acute (3) Hyponatremia: Code(s): E87.1 - Hypo-osmolality and hyponatremia Status: Acute (4) Nausea & vomiting: Qualifiers: Vomiting type: bilious vomiting Qualified Code(s): R11.14 - Bilious vomiting Code(s): R11.2 - Nausea with vomiting, unspecified Status: Acute (5) Abdominal pain: Code(s): R10.9 - Unspecified abdominal pain Status: Acute Plan Problem List 1. RENEA * high suspicion for post-renal due to urinary retention/infection secondary to constipation. WBC elevated at 19.4. * does not meet SIRS criteria, given ill appearance and rigors - blood cultures sent, lactic WNL. * creatinine 5.5, previously 1.89 on 06/10/23 and 1.0 on 01/29/23 * BUN 133, ECC 7, GFR 8 * UA: unremarkable * UC pending * add hepatitis panel, CK, creatinine urine, CRP, ESR, hep B antibody/antigen, hep C reflex, HIV osmolality, sodium urine, total protein creatinine, urea random * consult - nephrology * starr placed * monitor I&Os * Fluid resuscitation: 1 L NS bolus, maintenance of 125 mL/hr following. * Creatinine trending down. 2.0 today from 3.4 yesterday 2. constipation * CT abd wo con: Constipation, mild atrophy of the kidneys. * docusate Q12 * miralax QAM * NS enema PRN 3. hyponatremia * Na 129 * hypoNa w/u urea osmosity protein to creatinine ratio urine creatinine trend creatinine * Monitor * Sodium up to 143 4. abdominal pain * CT abd - constipation, treating * pain management: tyl, norco, morphine * assoc w/nausea and vomiting - known marijuana use, add UDS otherwise remarkable * zofran prn * Start Fleet enema once Empirically treating with colitis with ceftriaxone Flagyl in the ED Leukocytosis Catapres, patient denies abdomen pain 5. DM2 * Hypoglycemia protocol * POC blood glucose ACHS * home medication held - has not been verified, last glucose 122 * correct regimen ordered - low dose TIDWM and HS * A1C 7 on 06/10/23 Home Meds/Chronic Conditions - home meds all held, not verified. hydralazine 10 mg IVP PRN for BP over 180/100. Diet: clear liquid diet as tolerated GI Prophylaxis: not currently indicated DVT Prophylaxis: SCDs, heparin SQ BID Lines: pIV Code Status: Full Code Subjective Date/time seen: 07/13/23 09:07 Interval history: Patient feels better, creatinine and BUN is trending down, afebrile, blood pressure stable, [id number] obvious sign of infection, chest x-ray shows no acute cardiopulmonary issues Exam Narrative: GENERAL: Pleasant, in no acute distress. Well-nourished. - EYES: EOMI. Anicteric. - HENT: Moist mucous membranes. - LUNGS: Clear to auscultation bilateral ly, no wheezing, rhonchi, or rales. - CARDIOVASCULAR: Regular rate and rhyth m. No murmur. No JVD. - ABDOMEN: Soft, non-tender and non-dist ended. No palpable masses. - EXTREMITIES: No edema
--- NOTE | 2023-07-13 09:07 | PM.IMPN ---
Progress Note: A&P Assessment and Plan (1) RENEA (acute kidney injury): Code(s): N17.9 - Acute kidney failure, unspecified Status: Acute (2) Constipation: Qualifiers: Constipation type: unspecified constipation type Qualified Code(s): K59.00 - Constipation, unspecified Code(s): K59.00 - Constipation, unspecified Status: Acute (3) Hyponatremia: Code(s): E87.1 - Hypo-osmolality and hyponatremia Status: Acute (4) Nausea & vomiting: Qualifiers: Vomiting type: bilious vomiting Qualified Code(s): R11.14 - Bilious vomiting Code(s): R11.2 - Nausea with vomiting, unspecified Status: Acute (5) Abdominal pain: Code(s): R10.9 - Unspecified abdominal pain Status: Acute Plan Problem List 1. RENEA high suspicion for post-renal due to urinary retention/infection secondary to constipation. WBC elevated at 19.4. does not meet SIRS criteria, given ill appearance and rigors - blood cultures sent, lactic WNL. creatinine 5.5, previously 1.89 on 06/10/23 and 1.0 on 01/29/23 BUN 133, ECC 7, GFR 8 UA: unremarkable UC pending add hepatitis panel, CK, creatinine urine, CRP, ESR, hep B antibody/antigen, hep C reflex, HIV osmolality, sodium urine, total protein creatinine, urea random consult - nephrology starr placed monitor I&Os Fluid resuscitation: 1 L NS bolus, maintenance of 125 mL/hr following. Creatinine trending down. 2.0 today from 3.[address] abd wo con: Constipation, mild atrophy of the kidneys. docusate Q12 miralax QAM NS enema PRN 3. hyponatremia Na 129 hypoNa w/u urea osmosity protein to creatinine ratio urine creatinine trend creatinine Monitor Sodium up to [address] abd - constipation, treating pain management: tyl, norco, morphine assoc w/nausea and vomiting - known marijuana use, add UDS otherwise remarkable zofran prn Start Fleet enema once Empirically treating with colitis with ceftriaxone Flagyl in the ED Leukocytosis Catapres, patient denies abdomen pain 5. DM2 Hypoglycemia protocol POC blood glucose ACHS home medication held - has not been verified, last glucose 122 correct regimen ordered - low dose TIDWM and HS A1C 7 on 06/10/23 Home Meds/Chronic Conditions - home meds all held, not verified. hydralazine 10 mg IVP PRN for BP over 180/100. Diet: clear liquid diet as tolerated GI Prophylaxis: not currently indicated DVT Prophylaxis: SCDs, heparin SQ BID Lines: pIV Code Status: Full Code Subjective Date/time seen: 07/13/23 09:07 Interval history: Patient feels better, creatinine and BUN is trending down, afebrile, blood pressure stable, [id number] obvious sign of infection, chest x-ray shows no acute cardiopulmonary issues Exam Narrative: GENERAL: Pleasant, in no acute distress. Well-nourished. - EYES: EOMI. Anicteric. - HENT: Moist mucous membranes. - LUNGS: Clear to auscultation bilaterally, no wheezing, rhonchi, or rales. - CARDIOVASCULAR: Regular rate and rhythm. No murmur. No JVD. - ABDOMEN: Soft, non-tender and non-distended. No palpable masses. - EXTREMITIES: No edema. Peripheral pulses 2+. Non-tender. - NEUROLOGIC: No focal neurological deficits. CN II-XII grossly intact. - PSYCHIATRIC: Awake, Alert and oriented x 3. Appropriate mood and affect. - SKIN: No rashes or lesions. Warm. - LYMPH: No cervical lymphadenopathy. Objective Data Vital Signs Vital Signs: Vital Signs - 24 hr 07/12/23 09:22 07/12/23 12:00 07/12/23 10:00 Temperature 97.5 F L Pulse Rate 94 97 Respiratory Rate 18 Blood Pressure 154/70 H Pulse Oximetry 99 100 Oxygen Delivery Room Air 07/12/23 12:00 07/12/23 16:00 07/12/23 16:00 Temperature 97.4 F L Pulse Rate 94 90 106 H Respiratory Rate 18 Blood Pressure 151/80 H Pulse Oximetry 97 Oxygen Delivery 07/12/23 20:52 07/12/23 20:00 07/13/23 00:00 Temper
[2023-07-13] MEDS: SODIUM CHLORIDE 0.9% IV 1,000 ML 125 ML IV CONT (09:17)
[2023-07-13] MEDS: ATORVASTATIN 20 MG TABLET PO (09:24)
[2023-07-13] MEDS: DOCUSATE SODIUM 100 MG CAPSULE PO (09:24)
[2023-07-13] MEDS: HEPARIN SODIUM 5,000 UNITS/ML VIAL 5000 UNITS SUB-Q (09:24)
[2023-07-13 12:04] LABS: Glucose Point of Care 332 mg/dl (65-105)
[2023-07-13] MEDS: INSULIN ASPART (*BKC) 100 UNITS/ML SUB-Q (12:06)
--- NOTE | 2023-07-13 13:51 | P.PNNP_ITS ---
Progress Note: A&P Assessment and Plan (1) RENEA (acute kidney injury): Code(s): N17.9 - Acute kidney failure, unspecified Status: Acute Assessment and Plan: * improvement noted since admission * creatinine 1.89mg/dl in 06/10/23; 1.0mg/dl on 01/29/23 * suspicion falls on urinary retention along with prerenal factors as etiology of RENEA/ARF * straight cath in ER yielded 200cc of urine * subsequent starr placement in ER with 600cc urine output * exacerbated by constipation(?) * evaluation to date noted: * UA unremarkable * urine electrolytes non-prerenal * urine eosinophils pending * CPK normal * CT imaging with mild atrophy of the kidneys * trial of IVFs * follow repeat labs and UOP (2) Abdominal pain: Code(s): R10.9 - Unspecified abdominal pain Status: Acute Assessment and Plan: * secondary to constipation (?) * CT imaging on admission otherwise negative * started on bowel regimen (3) Essential (primary) hypertension: Code(s): I10 - Essential (primary) hypertension Status: Chronic Assessment and Plan: * reasonable control at this time * follow trend of hemodynamics (4) DM2 (diabetes mellitus, type 2): Code(s): E11.9 - Type 2 diabetes mellitus without complications Status: Chronic Assessment and Plan: * follow accu-cheks * glycemic control per hospitalists I will continue follow the patient with you while she remains hospitalized make further recommendations as needed. Thank you for allowing me to participate in the care of this patient Subjective Date/time seen: 07/13/23 13:51 Interval history: Follow-up for acute kidney injury/acute renal failure (on chronic kidney disease?). Overall, the patient feels significantly better; continues to have good urine output (since starr catheter placed in ER) with improvement in renal function/creatinine as noted by trend of labs; no apparent distress noted at the time of my visit. Exam Narrative: General: elderly but WD/WN female in NAD Heart: normal S1 and S2; no rub Lungs: clear to auscultation Abdomen: soft, nontender, nondistended, positive bowel sounds Extremities: no cyanosis or clubbing; no edema Skin: warm and dry Objective Data Vital Signs Vital Signs: Vital Signs Temp Pulse Resp BP Pulse Ox O2 Del Method 07/13/23 13:51 98.5 F 77 14 121/58 L 98 Room Air 07/13/23 12:00 81 07/13/23 08:00 104 H 07/13/23 09:25 Room Air 07/13/23 07:15 130 H 07/13/23 04:53 97.9 F 123 H 14 170/84 H 96 07/13/23 05:09 124 H 07/13/23 04:00 120 H 07/13/23 00:00 114 H 07/12/23 20:00 107 H 07/12/23 20:52 97.5 F L 111 H 16 142/88 H 97 07/12/23 16:00 97.4 F L 106 H 18 151/80 H 97 07/12/23 16:00 90 Intake/Output Intake/Output: Intake & Output 07/10/23 07/11/23 07/12/23 07/13/23 23:59 23:59 23:59 23:59 Intake Total 1850 4170 1100 Output Total 2350 1200 1400 Balance -500 2970 -300 Meds/Results Medications: Active Medications Generic Name Dose Route Start Last Admin Trade Name Uche PRN Reaso
--- NOTE | 2023-07-13 13:51 | PM.PNNEP ---
Progress Note: A&P Assessment and Plan (1) RENEA (acute kidney injury): Code(s): N17.9 - Acute kidney failure, unspecified Status: Acute Assessment and Plan: improvement noted since admission creatinine 1.89mg/dl in 06/10/23; 1.0mg/dl on 01/29/23 suspicion falls on urinary retention along with prerenal factors as etiology of RENEA/ARF straight cath in ER yielded 200cc of urine subsequent starr placement in ER with 600cc urine output exacerbated by constipation(?) evaluation to date noted: UA unremarkable urine electrolytes non-prerenal urine eosinophils pending CPK normal CT imaging with mild atrophy of the kidneys trial of IVFs follow repeat labs and UOP (2) Abdominal pain: Code(s): R10.9 - Unspecified abdominal pain Status: Acute Assessment and Plan: secondary to constipation (?) CT imaging on admission otherwise negative started on bowel regimen (3) Essential (primary) hypertension: Code(s): I10 - Essential (primary) hypertension Status: Chronic Assessment and Plan: reasonable control at this time follow trend of hemodynamics (4) DM2 (diabetes mellitus, type 2): Code(s): E11.9 - Type 2 diabetes mellitus without complications Status: Chronic Assessment and Plan: follow accu-cheks glycemic control per hospitalists I will continue follow the patient with you while she remains hospitalized make further recommendations as needed. Thank you for allowing me to participate in the care of this patient Subjective Date/time seen: 07/13/23 13:51 Interval history: Follow-up for acute kidney injury/acute renal failure (on chronic kidney disease?). Overall, the patient feels significantly better; continues to have good urine output (since starr catheter placed in ER) with improvement in renal function/creatinine as noted by trend of labs; no apparent distress noted at the time of my visit. Exam Narrative: General: elderly but WD/WN female in NAD Heart: normal S1 and S2; no rub Lungs: clear to auscultation Abdomen: soft, nontender, nondistended, positive bowel sounds Extremities: no cyanosis or clubbing; no edema Skin: warm and dry Objective Data Vital Signs Vital Signs: Vital Signs Temp Pulse Resp BP Pulse Ox O2 Del Method 07/13/23 13:51 98.5 F 77 14 121/58 L 98 Room Air 11/11/23 12:00 81 07/13/23 08:00 104 H 07/13/23 09:25 Room Air 07/13/23 07:15 130 H 07/13/23 04:53 97.9 F 123 H 14 170/84 H 96 07/13/23 05:09 124 H 07/13/23 04:00 120 H 07/13/23 00:00 114 H 07/12/23 20:00 107 H 07/12/23 20:52 97.5 F L 111 H 16 142/88 H 97 07/12/23 16:00 97.4 F L 106 H 18 151/80 H 97 07/12/23 16:00 90 Intake/Output Intake/Output: Intake & Output 07/10/23 07/11/23 07/12/23 07/13/23 23:59 23:59 23:59 23:59 Intake Total 1850 4170 1100 Output Total 2350 1200 1400 Balance -500 2970 -300 Meds/Results Medications: Active Medications Generic Name Dose Route Start Last Admin Trade Name Gerardoq PRN Reason Stop Dose Admin Acetaminophen 650 mg 07/11/23 13:55 Acetaminophen 325 Mg Tablet PO Q4H PRN Mild Pain (1-3) or Fever Hydrocodone Bitart/Acetaminophen 1 tab 07/11/23 13:55 07/13/23 09:25 Hydrocodone/Acetaminophen (*Crx) 5-325 Mg Tablet PO 1 tab Q4H PRN Administration Pain Rated 4-6 Atorvastatin Calcium 20 mg 07/13/23 09:00 07/13/23 09:24 Atorvastatin 20 Mg Tablet PO 20 mg DAILY USAMA Administration Clonidine HCl 0.3 mg 07/13/23 04:55 07/13/23 05:09 Clonidine Hcl 0.1 Mg Tablet PO 0.3 mg BID USAMA Administration Dextrose 12.5 gm 07/11/23 23:59 Dextrose 50% 25 Gm/50 Ml Syringe IV PUSH PRN PRN Hypoglycemia Protocol Docusate Sodium 100 mg 07/11/23 21:00 07/13/23 09:24 Docusate Sodium 100 Mg Capsule PO 100 mg Q12HR USAMA
[2023-07-13 16:27] LABS: Glucose Point of Care 174 mg/dl (65-105)
[2023-07-13] MEDS: LACTULOSE 20 GM/30 ML UDC PO (17:50)
[2023-07-13 20:10] LABS: Eosinophil Urine None Seen % (None Seen)
[2023-07-13 20:11] LABS: Urine Eos QC 2nd Tech Confirmed
[2023-07-13 21:06] LABS: Glucose Point of Care 162 mg/dl (65-105)
[2023-07-14] VITALS (10 sets, daily range): BP systolic 115–138; BP diastolic 54–75; PULSE 63–115; RESP 14–20; TEMP 36.2–37.3; O2SAT 97–100
[2023-07-14] MEDS: metroNIDAZOLE 500 MG/ISO 100ML 500 MG/100 ML BAG 100 MG IVPB ×3 (06:31→21:16)
[2023-07-14 06:48] LABS: Basophils Absolute Auto 0.1 K/mm3 (0.0-0.1); Basophils Percent Auto 0.7 % (0.2-1.2); Eosinophils Absolute Auto 0.5 K/mm3 (0-0.3); Eosinophils Percent Auto 3.6 % (0-4.4); Hematocrit 29.8 % (37.0-47.0); Immature Granulocyte Absolute 0.05 K/mm3 (0.00-0.031); Immature Granulocyte Percent A 0.4 % (0-0.5); Lymphocytes Percent Auto 31.9 % (18.3-44.2); Mean Corpuscular HGB Conc 33.6 g/dl (32-36); Mean Corpuscular Hemoglobin 30.4 pg (26-34); Mean Corpuscular Volume 90.6 fl (80-100); Mean Platelet Volume 10.8 fl (7.4-10.4); Monocytes Absolute Auto 1.3 K/mm3 (0.1-0.6); Monocytes Percent Auto 9.2 % (2.6-8.5); Neutrophils Absolute Auto 7.5 K/mm3 (1.3-6.7); Neutrophils Percent Auto 54.2 % (45.5-73.1); Platelet Count Result 285 k/mm3 (150-375); Red Blood Count 3.29 M/mm3 (4.2-5.4); Red Cell Distribution Width 12.1 % (11.5-14.5); White Blood Count 13.8 K/mm3 (4.5-10.0)
[2023-07-14 06:59] LABS: Alanine Aminotransferase 13 U/L (6-35); Albumin Level 3.4 g/dL (3.5-5.1); Alkaline Phosphatase 57 U/L (38-126); Anion Gap 7 mmol/L (8-16); Aspartate Amino Transferase 19 U/L (14-36); Bilirubin,Total 0.5 mg/dL (0.2-1.3); Blood Urea Nitrogen 36 mg/dL (7-17); Calcium 8.9 mg/dL (8.4-10.2); Carbon Dioxide 27 mmol/L (22-30); Chloride 106 mmol/L (98-107); Estimated CRCL calculation 26 ml/min; Estimated Glomerular Filt Rate 32; Glucose 145 mg/dL (65-110); Magnesium 1.8 mg/dL (1.6-2.3); Phosphorus 2.2 mg/dL (2.5-4.5); Potassium 3.6 mmol/L (3.4-5.0); Sodium 140 mmol/L (137-145)
[2023-07-14 08:10] LABS: Glucose Point of Care 167 mg/dl (65-105)
--- NOTE | 2023-07-14 08:13 | P.PNIM_ITS ---
Progress Note: A&P Assessment and Plan (1) RENEA (acute kidney injury): Code(s): N17.9 - Acute kidney failure, unspecified Status: Acute (2) Constipation: Qualifiers: Constipation type: unspecified constipation type Qualified Code(s): K59.00 - Constipation, unspecified Code(s): K59.00 - Constipation, unspecified Status: Acute (3) Hyponatremia: Code(s): E87.1 - Hypo-osmolality and hyponatremia Status: Acute (4) Nausea & vomiting: Qualifiers: Vomiting type: bilious vomiting Qualified Code(s): R11.14 - Bilious vomiting Code(s): R11.2 - Nausea with vomiting, unspecified Status: Acute (5) Abdominal pain: Code(s): R10.9 - Unspecified abdominal pain Status: Acute Plan Problem List 1. RENEA * high suspicion for post-renal due to urinary retention/infection secondary to constipation. WBC elevated at 19.4. * does not meet SIRS criteria, given ill appearance and rigors - blood cultures sent, lactic WNL. * creatinine 5.5, previously 1.89 on 06/10/23 and 1.0 on 01/29/23 * BUN 133, ECC 7, GFR 8 * UA: unremarkable * UC pending * add hepatitis panel, CK, creatinine urine, CRP, ESR, hep B antibody/antigen, hep C reflex, HIV osmolality, sodium urine, total protein creatinine, urea random * consult - nephrology * starr placed * monitor I&Os * Fluid resuscitation: 1 L NS bolus, maintenance of 125 mL/hr following. * Creatinine trending down. 1.7 today 2. constipation * CT abd wo con: Constipation, mild atrophy of the kidneys. * docusate Q12 * miralax QAM * NS enema PRN 3. hyponatremia * Na 129 * hypoNa w/u urea osmosity protein to creatinine ratio urine creatinine trend creatinine * Monitor * Sodium up to 143 4. abdominal pain * CT abd - constipation, treating * pain management: tyl, norco, morphine * assoc w/nausea and vomiting - known marijuana use, add UDS otherwise remarkable * zofran prn * Start Fleet enema once Empirically treating with colitis with ceftriaxone Flagyl in the ED Leukocytosis persists, patient denies abdomen pain, patient has a cough, a scant phlegm, and doxycycline p.o. 5. DM2 * Hypoglycemia protocol * POC blood glucose ACHS * home medication held - has not been verified, last glucose 122 * correct regimen ordered - low dose TIDWM and HS * A1C 7 on 06/10/23 Home Meds/Chronic Conditions - home meds all held, not verified. hydralazine 10 mg IVP PRN for BP over 180/100. Diet: clear liquid diet as tolerated GI Prophylaxis: not currently indicated DVT Prophylaxis: SCDs, heparin SQ BID Lines: pIV Code Status: Full Code Subjective Date/time seen: 07/14/23 08:13 Interval history: Patient feels better today, mental status improving, creatinine is trending down. Patient denies nausea vomiting. Patient has some cough with phlegm. Patient denies nausea or a diarrhea Exam Narrative: GENERAL: Pleasant, in no acute distress. Well-nourished. - EYES: EOMI. Anicteric. - HENT: Moist mucous membranes. - LUNGS: Clear to auscultation bilateral ly, no wheezing, rhonchi, or rales. - CARDIOVASCULAR: Regular rate and rhyth m. No murmur. No JVD. - ABDOMEN: Soft, non-tender and non-dist ended. No palpable masses.
--- NOTE | 2023-07-14 08:13 | PM.IMPN ---
Progress Note: A&P Assessment and Plan (1) RENEA (acute kidney injury): Code(s): N17.9 - Acute kidney failure, unspecified Status: Acute (2) Constipation: Qualifiers: Constipation type: unspecified constipation type Qualified Code(s): K59.00 - Constipation, unspecified Code(s): K59.00 - Constipation, unspecified Status: Acute (3) Hyponatremia: Code(s): E87.1 - Hypo-osmolality and hyponatremia Status: Acute (4) Nausea & vomiting: Qualifiers: Vomiting type: bilious vomiting Qualified Code(s): R11.14 - Bilious vomiting Code(s): R11.2 - Nausea with vomiting, unspecified Status: Acute (5) Abdominal pain: Code(s): R10.9 - Unspecified abdominal pain Status: Acute Plan Problem List 1. RENEA high suspicion for post-renal due to urinary retention/infection secondary to constipation. WBC elevated at 19.4. does not meet SIRS criteria, given ill appearance and rigors - blood cultures sent, lactic WNL. creatinine 5.5, previously 1.89 on 06/10/23 and 1.0 on 01/29/23 BUN 133, ECC 7, GFR 8 UA: unremarkable UC pending add hepatitis panel, CK, creatinine urine, CRP, ESR, hep B antibody/antigen, hep C reflex, HIV osmolality, sodium urine, total protein creatinine, urea random consult - nephrology starr placed monitor I&Os Fluid resuscitation: 1 L NS bolus, maintenance of 125 mL/hr following. Creatinine trending down. 1.[address] abd wo con: Constipation, mild atrophy of the kidneys. docusate Q12 miralax QAM NS enema PRN 3. hyponatremia Na 129 hypoNa w/u urea osmosity protein to creatinine ratio urine creatinine trend creatinine Monitor Sodium up to [address] abd - constipation, treating pain management: tyl, norco, morphine assoc w/nausea and vomiting - known marijuana use, add UDS otherwise remarkable zofran prn Start Fleet enema once Empirically treating with colitis with ceftriaxone Flagyl in the ED Leukocytosis persists, patient denies abdomen pain, patient has a cough, a scant phlegm, and doxycycline p.o. 5. DM2 Hypoglycemia protocol POC blood glucose ACHS home medication held - has not been verified, last glucose 122 correct regimen ordered - low dose TIDWM and HS A1C 7 on 06/10/23 Home Meds/Chronic Conditions - home meds all held, not verified. hydralazine 10 mg IVP PRN for BP over 180/100. Diet: clear liquid diet as tolerated GI Prophylaxis: not currently indicated DVT Prophylaxis: SCDs, heparin SQ BID Lines: pIV Code Status: Full Code Subjective Date/time seen: 07/14/23 08:13 Interval history: Patient feels better today, mental status improving, creatinine is trending down. Patient denies nausea vomiting. Patient has some cough with phlegm. Patient denies nausea or a diarrhea Exam Narrative: GENERAL: Pleasant, in no acute distress. Well-nourished. - EYES: EOMI. Anicteric. - HENT: Moist mucous membranes. - LUNGS: Clear to auscultation bilaterally, no wheezing, rhonchi, or rales. - CARDIOVASCULAR: Regular rate and rhythm. No murmur. No JVD. - ABDOMEN: Soft, non-tender and non-distended. No palpable masses. - EXTREMITIES: No edema. Peripheral pulses 2+. Non-tender. - NEUROLOGIC: No focal neurological deficits. CN II-XII grossly intact. - PSYCHIATRIC: Awake, Alert and oriented x 3. Appropriate mood and affect. - SKIN: No rashes or lesions. Warm. - LYMPH: No cervical lymphadenopathy. Objective Data Vital Signs Vital Signs: Vital Signs - 24 hr 07/13/23 09:25 07/13/23 12:00 07/13/23 13:52 Temperature Pulse Rate 81 Respiratory Rate Blood Pressure Pulse Oximetry Oxygen Delivery Room Air Room Air 07/13/23 14:00 07/13/23 16:00 07/13/23 21:52 Temperature 98.5 F Pulse Rate 77 69 74 Respiratory Rate 14 Blood Pressure 121/58 L Pulse Oximetry 98 Oxygen Delivery 07/13/23 20:00 07/13/23 19:50 11
[2023-07-14] MEDS: METOPROLOL TARTRATE 50 MG TAB 100 MG PO ×2 (08:21→21:15)
[2023-07-14] MEDS: HYDROcodone/acetaminophen (*CRX) 5-325 MG TABLET 1 TAB PO ×2 (08:21→16:43)
[2023-07-14] MEDS: cloNIDine HCL 0.1 MG TABLET 0.3 MG PO ×2 (08:22→16:43)
[2023-07-14] MEDS: ATORVASTATIN 20 MG TABLET PO (08:22)
[2023-07-14] MEDS: SODIUM CHLORIDE 0.9% IV 1,000 ML 70 ML IV CONT (08:23)
[2023-07-14] MEDS: HEPARIN SODIUM 5,000 UNITS/ML VIAL 5000 UNITS SUB-Q ×2 (08:23→21:14)
[2023-07-14] MEDS: MORPHINE SULFATE (*CRX) 2 MG/ML INJ IV PUSH (10:44)
[2023-07-14 11:51] LABS: Glucose Point of Care 186 mg/dl (65-105)
--- NOTE | 2023-07-14 13:45 | PM.PNNEP ---
Progress Note: A&P Assessment and Plan (1) RENEA (acute kidney injury): Code(s): N17.9 - Acute kidney failure, unspecified Status: Acute Assessment and Plan: improvement noted since admission creatinine 1.89mg/dl in 06/10/23; 1.0mg/dl on 01/29/23 suspicion falls on urinary retention along with prerenal factors as etiology of RENEA/ARF straight cath in ER yielded 200cc of urine subsequent starr placement in ER with 600cc urine output exacerbated by constipation(?) evaluation to date noted: UA unremarkable urine electrolytes non-prerenal urine eosinophils pending CPK normal CT imaging with mild atrophy of the kidneys s/p trial of IVFs follow repeat labs and UOP (2) Abdominal pain: Code(s): R10.9 - Unspecified abdominal pain Status: Acute Assessment and Plan: secondary to constipation (?) CT imaging on admission otherwise negative started on bowel regimen (3) Essential (primary) hypertension: Code(s): I10 - Essential (primary) hypertension Status: Chronic Assessment and Plan: reasonable control at this time follow trend of hemodynamics (4) DM2 (diabetes mellitus, type 2): Code(s): E11.9 - Type 2 diabetes mellitus without complications Status: Chronic Assessment and Plan: follow accu-cheks glycemic control per hospitalists Will continue to follow. Subjective Date/time seen: 07/14/23 13:45 Interval history: Follow-up for acute kidney injury/acute renal failure (on chronic kidney disease?). Slow and steady improvement in renal function with current interventions/therapy to date; no issues/events overnight or earlier this morning; no apparent distress noted; at bedside and we discussed the situation. Exam Narrative: General: elderly but WD/WN female in NAD Heart: normal S1 and S2; no rub Lungs: clear to auscultation Abdomen: soft, nontender, nondistended, positive bowel sounds Extremities: no cyanosis or clubbing; no edema Skin: warm and intact Objective Data Vital Signs Vital Signs: Vital Signs Temp Pulse Resp BP Pulse Ox 07/14/23 12:00 72 07/14/23 08:00 115 H 07/14/23 06:30 98.5 F 96 14 115/75 97 07/14/23 04:00 81 07/14/23 00:00 87 07/14/23 00:40 97.6 F 83 16 138/70 97 07/13/23 19:50 97.4 F L 74 20 86/52 L 98 07/13/23 20:00 106 H 07/13/23 21:52 74 07/13/23 16:00 69 Intake/Output Intake/Output: Intake & Output 07/11/23 07/12/23 07/13/23 07/14/23 23:59 23:59 23:59 23:59 Intake Total 1850 4170 2572 490 Output Total 2350 1200 1850 650 Balance -500 2970 722 -160 Meds/Results Medications: Active Medications Generic Name Dose Route Start Last Admin Trade Name Freq PRN Reason Stop Dose Admin Acetaminophen 650 mg 07/11/23 13:55 Acetaminophen 325 Mg Tablet PO Q4H PRN Mild Pain (1-3) or Fever Hydrocodone Bitart/Acetaminophen 1 tab 07/11/23 13:55 07/14/23 08:21 Hydrocodone/Acetaminophen (*Crx) 5-325 Mg Tablet PO 1 tab Q4H PRN Administration Pain Rated 4-6 Atorvastatin Calcium 20 mg 07/13/23 09:00 07/14/23 08:22 Atorvastatin 20 Mg Tablet PO 20 mg DAILY USAMA Administration Clonidine HCl 0.3 mg 07/13/23 04:55 07/14/23 08:22 Clonidine Hcl 0.1 Mg Tablet PO 0.3 mg BID USAMA Administration Dextrose 12.5 gm 07/11/23 23:59 Dextrose 50% 25 Gm/50 Ml Syringe IV PUSH PRN PRN Hypoglycemia Protocol Docusate Sodium 100 mg 07/11/23 21:00 07/14/23 08:23 Docusate Sodium 100 Mg Capsule PO Not Given Q12HR USAMA Glucagon 1 mg 07/11/23 23:59 Glucagon For Inj 1 Mg Vial IM PRN PRN Hypoglycemia Protocol Glucose 15 gm 07/11/23 23:59 Glucose Oral Gel 15 Gm Of Glucse In 37.5 Gm Tube PO PRN PRN Hypoglycemia Protocol Heparin Sodium (Porcine) 5,000 units 07/12/23 09:00 07/14/23 08:23 Heparin Sod
--- NOTE | 2023-07-14 13:45 | P.PNNP_ITS ---
Progress Note: A&P Assessment and Plan (1) RENEA (acute kidney injury): Code(s): N17.9 - Acute kidney failure, unspecified Status: Acute Assessment and Plan: * improvement noted since admission * creatinine 1.89mg/dl in 06/10/23; 1.0mg/dl on 01/29/23 * suspicion falls on urinary retention along with prerenal factors as etiology of RENEA/ARF * straight cath in ER yielded 200cc of urine * subsequent starr placement in ER with 600cc urine output * exacerbated by constipation(?) * evaluation to date noted: * UA unremarkable * urine electrolytes non-prerenal * urine eosinophils pending * CPK normal * CT imaging with mild atrophy of the kidneys * s/p trial of IVFs * follow repeat labs and UOP (2) Abdominal pain: Code(s): R10.9 - Unspecified abdominal pain Status: Acute Assessment and Plan: * secondary to constipation (?) * CT imaging on admission otherwise negative * started on bowel regimen (3) Essential (primary) hypertension: Code(s): I10 - Essential (primary) hypertension Status: Chronic Assessment and Plan: * reasonable control at this time * follow trend of hemodynamics (4) DM2 (diabetes mellitus, type 2): Code(s): E11.9 - Type 2 diabetes mellitus without complications Status: Chronic Assessment and Plan: * follow accu-cheks * glycemic control per hospitalists Will continue to follow. Subjective Date/time seen: 07/14/23 13:45 Interval history: Follow-up for acute kidney injury/acute renal failure (on chronic kidney d isease?). Slow and steady improvement in renal function with current interventions/therapy to date; no issues/events overnight or earlier this morning; no apparent distress noted; at bedside and we discussed the situation. Exam Narrative: General: elderly but WD/WN female in NAD Heart: normal S1 and S2; no rub Lungs: clear to auscultation Abdomen: soft, nontender, nondistended, positive bowel sounds Extremities: no cyanosis or clubbing; no edema Skin: warm and intact Objective Data Vital Signs Vital Signs: Vital Signs Temp Pulse Resp BP Pulse Ox 07/14/23 12:00 72 07/14/23 08:00 115 H 07/14/23 06:30 98.5 F 96 14 115/75 97 07/14/23 04:00 81 11/12/23 00:00 87 07/14/23 00:40 97.6 F 83 16 138/70 97 07/13/23 19:50 97.4 F L 74 20 86/52 L 98 07/13/23 20:00 106 H 07/13/23 21:52 74 07/13/23 16:00 69 Intake/Output Intake/Output: Intake & Output 07/11/23 07/12/23 07/13/23 07/14/23 23:59 23:59 23:59 23:59 Intake Total 1850 4170 2572 490 Output Total 2350 1200 1850 650 Balance -500 2970 722 -160 Meds/Results Medications: Active Medications Generic Name Dose Route Start Last Admin Trade Name Freq PRN Reason Stop Dose Admin Acetaminophen 650 mg 07/11/23 13:55 Acetaminophen 325 Mg Tablet PO Q4H PRN Mild Pain (1-3) or Fever Hydrocodone Bitart/Acetaminophen 1 tab 07/11/23 13:55 07/14/23 08:21 Hydrocodone/Acetaminophen (*Crx) 5-325 Mg Tablet PO 1 tab Q4H PRN Administration
[2023-07-14 14:00] LABS: Appearance Urine Clear (Clear); Bacteria Urine None Seen /hpf; Bilirubin Urine Negative (Negative); Blood Urine Negative (Negative); Color Urine Yellow (Yellow); Glucose Urine UA 2+ mg/dL (Negative); Ketones Urine Negative (Negative); Leukocyte Esterase Ur Trace LEU/UL (Negative); Nitrate Urine Negative (Negative); Non Pathogenic Casts 0-2; Protein Urine Negative (Negative); RBC Urine 0-2 /hpf (0-2); Specific Grav Ur 1.016 (1.001-1.035); Squamous Epithelial Cell Urine None seen /hpf (Few); Urobilinogen Urine 0.2 mg/dL (<2.0); WBC Urine 0-5 /hpf
[2023-07-14 14:02] LABS: Add Urine Microscopic? YES
[2023-07-14 16:40] LABS: Glucose Point of Care 156 mg/dl (65-105)
[2023-07-14 16:44] LABS: Osmolality, Urine 358 mOsm/kg (50-1200)
[2023-07-14] MEDS: DOXYCYCLINE HYCLATE 100 MG TABLET PO (21:13)
[2023-07-14] MEDS: DOCUSATE SODIUM 100 MG CAPSULE PO (21:14)
[2023-07-14 21:17] LABS: Glucose Point of Care 142 mg/dl (65-105)
[2023-07-14] MEDS: ONDANSETRON INJ 4 MG/2 ML VIAL IV PUSH (22:14)
[2023-07-14] MEDS: MELATONIN 5 MG TABLET PO (22:41)
[2023-07-15] VITALS (8 sets, daily range): BP systolic 106–141; BP diastolic 64–77; PULSE 67–72; RESP 18; TEMP 36.1–36.3; O2SAT 99–100
[2023-07-15] MEDS: SODIUM CHLORIDE 0.9% IV 1,000 ML 70 ML IV CONT (02:00)
[2023-07-15 06:31] LABS: Basophils Absolute Auto 0.1 K/mm3 (0.0-0.1); Basophils Percent Auto 0.8 % (0.2-1.2); Eosinophils Absolute Auto 0.7 K/mm3 (0-0.3); Eosinophils Percent Auto 6.7 % (0-4.4); Hematocrit 29.5 % (37.0-47.0); Hemoglobin 9.6 g/dL (12.0-15.0); Immature Granulocyte Absolute 0.05 K/mm3 (0.00-0.031); Immature Granulocyte Percent A 0.5 % (0-0.5); Lymphocytes Absolute Auto 3.74 K/mm3 (0.9-3.2); Lymphocytes Percent Auto 35.3 % (18.3-44.2); Mean Corpuscular HGB Conc 32.5 g/dl (32-36); Mean Corpuscular Hemoglobin 30.2 pg (26-34); Mean Corpuscular Volume 92.8 fl (80-100); Mean Platelet Volume 10.8 fl (7.4-10.4); Monocytes Absolute Auto 0.7 K/mm3 (0.1-0.6); Monocytes Percent Auto 6.8 % (2.6-8.5); Neutrophils Absolute Auto 5.3 K/mm3 (1.3-6.7); Neutrophils Percent Auto 49.9 % (45.5-73.1); Platelet Count Result 258 k/mm3 (150-375); Red Blood Count 3.18 M/mm3 (4.2-5.4); Red Cell Distribution Width 11.9 % (11.5-14.5); White Blood Count 10.6 K/mm3 (4.5-10.0)
[2023-07-15] MEDS: metroNIDAZOLE 500 MG/ISO 100ML 500 MG/100 ML BAG 100 MG IVPB (06:37)
[2023-07-15] MEDS: DOXYCYCLINE HYCLATE 100 MG TABLET PO (06:37)
[2023-07-15 06:49] LABS: Alanine Aminotransferase 25 U/L (6-35); Albumin Level 3.2 g/dL (3.5-5.1); Alkaline Phosphatase 66 U/L (38-126); Anion Gap 7 mmol/L (8-16); Aspartate Amino Transferase 34 U/L (14-36); Bilirubin,Total 0.6 mg/dL (0.2-1.3); Blood Urea Nitrogen 28 mg/dL (7-17); Calcium 8.3 mg/dL (8.4-10.2); Carbon Dioxide 27 mmol/L (22-30); Chloride 106 mmol/L (98-107); Estimated CRCL calculation 30 ml/min; Estimated Glomerular Filt Rate 37; Glucose 129 mg/dL (65-110); Potassium 3.6 mmol/L (3.4-5.0); Sodium 140 mmol/L (137-145)
--- NOTE | 2023-07-15 07:19 | P.PNIM_ITS ---
Progress Note: A&P Assessment and Plan (1) RENEA (acute kidney injury): Code(s): N17.9 - Acute kidney failure, unspecified Status: Acute (2) Constipation: Qualifiers: Constipation type: unspecified constipation type Qualified Code(s): K59.00 - Constipation, unspecified Code(s): K59.00 - Constipation, unspecified Status: Acute (3) Hyponatremia: Code(s): E87.1 - Hypo-osmolality and hyponatremia Status: Acute (4) Nausea & vomiting: Qualifiers: Vomiting type: bilious vomiting Qualified Code(s): R11.14 - Bilious vomiting Code(s): R11.2 - Nausea with vomiting, unspecified Status: Acute (5) Abdominal pain: Code(s): R10.9 - Unspecified abdominal pain Status: Acute Plan Problem List 1. RENEA * high suspicion for post-renal due to urinary retention/infection secondary to constipation. WBC elevated at 19.4. * does not meet SIRS criteria, given ill appearance and rigors - blood cultures sent, lactic WNL. * creatinine 5.5, previously 1.89 on 06/10/23 and 1.0 on 01/29/23 * BUN 133, ECC 7, GFR 8 * UA: unremarkable * UC pending * add hepatitis panel, CK, creatinine urine, CRP, ESR, hep B antibody/antigen, hep C reflex, HIV osmolality, sodium urine, total protein creatinine, urea random * consult - nephrology * starr placed * monitor I&Os * Fluid resuscitation: 1 L NS bolus, maintenance of 125 mL/hr following. * Creatinine trending down. 1.4 today * Starr catheter is removed, it patient does not have urinary retention, patient will be discharged today 2. constipation * CT abd wo con: Constipation, mild atrophy of the kidneys. * docusate Q12 * miralax QAM * NS enema PRN 3. hyponatremia * Na 129 * hypoNa w/u urea osmosity protein to creatinine ratio urine creatinine trend creatinine * Monitor * Sodium up to 143 4. abdominal pain * CT abd - constipation, treating * pain management: tyl, norco, morphine * assoc w/nausea and vomiting - known marijuana use, add UDS otherwise remarkable * zofran prn * Start Fleet enema once Empirically treating with colitis with ceftriaxone Flagyl in the ED Leukocytosis persists, patient denies abdomen pain, patient has a cough, a scant phlegm, and doxycycline p.o for possible acute bacterial bronchitis 5. DM2 * Hypoglycemia protocol * POC blood glucose ACHS * home medication held - has not been verified, last glucose 122 * correct regimen ordered - low dose TIDWM and HS * A1C 7 on 06/10/23 Home Meds/Chronic Conditions hydralazine 10 mg IVP PRN for BP over 180/100. Diet: Change to diabetic diet as tolerated GI Prophylaxis: not currently indicated DVT Prophylaxis: SCDs, heparin SQ BID Lines: pIV Code Status: Full Code Subjective Date/time seen: 07/15/23 07:19 Interval history: Patient feels better today, creatinine is trending down, folic catheter is removed. Patient denies nausea vomiting. Patient denies nausea or a diarrhea Exam Narrative: GENERAL: Pleasant, in no acute distress. Well-nourished. - EYES: EOMI. Anicteric. - HENT: Moist mucous membranes. - LUNGS: Clear to auscultation bilateral ly, no wheezing, rhonchi, or rales. - CARDIOVASCULAR: Regular rate and rhyth m. No murmur. No JVD. - ABDOME
--- NOTE | 2023-07-15 07:19 | PM.IMPN ---
Progress Note: A&P Assessment and Plan (1) RENEA (acute kidney injury): Code(s): N17.9 - Acute kidney failure, unspecified Status: Acute (2) Constipation: Qualifiers: Constipation type: unspecified constipation type Qualified Code(s): K59.00 - Constipation, unspecified Code(s): K59.00 - Constipation, unspecified Status: Acute (3) Hyponatremia: Code(s): E87.1 - Hypo-osmolality and hyponatremia Status: Acute (4) Nausea & vomiting: Qualifiers: Vomiting type: bilious vomiting Qualified Code(s): R11.14 - Bilious vomiting Code(s): R11.2 - Nausea with vomiting, unspecified Status: Acute (5) Abdominal pain: Code(s): R10.9 - Unspecified abdominal pain Status: Acute Plan Problem List 1. RENEA high suspicion for post-renal due to urinary retention/infection secondary to constipation. WBC elevated at 19.4. does not meet SIRS criteria, given ill appearance and rigors - blood cultures sent, lactic WNL. creatinine 5.5, previously 1.89 on 06/10/23 and 1.0 on 01/29/23 BUN 133, ECC 7, GFR 8 UA: unremarkable UC pending add hepatitis panel, CK, creatinine urine, CRP, ESR, hep B antibody/antigen, hep C reflex, HIV osmolality, sodium urine, total protein creatinine, urea random consult - nephrology starr placed monitor I&Os Fluid resuscitation: 1 L NS bolus, maintenance of 125 mL/hr following. Creatinine trending down. 1.4 today Starr catheter is removed, it patient does not have urinary retention, patient will be discharged today 2. constipation CT abd wo con: Constipation, mild atrophy of the kidneys. docusate Q12 miralax QAM NS enema PRN 3. hyponatremia Na 129 hypoNa w/u urea osmosity protein to creatinine ratio urine creatinine trend creatinine Monitor Sodium up to [address] abd - constipation, treating pain management: tyl, norco, morphine assoc w/nausea and vomiting - known marijuana use, add UDS otherwise remarkable zofran prn Start Fleet enema once Empirically treating with colitis with ceftriaxone Flagyl in the ED Leukocytosis persists, patient denies abdomen pain, patient has a cough, a scant phlegm, and doxycycline p.o for possible acute bacterial bronchitis 5. DM2 Hypoglycemia protocol POC blood glucose ACHS home medication held - has not been verified, last glucose 122 correct regimen ordered - low dose TIDWM and HS A1C 7 on 06/10/23 Home Meds/Chronic Conditions hydralazine 10 mg IVP PRN for BP over 180/100. Diet: Change to diabetic diet as tolerated GI Prophylaxis: not currently indicated DVT Prophylaxis: SCDs, heparin SQ BID Lines: pIV Code Status: Full Code Subjective Date/time seen: 07/15/23 07:19 Interval history: Patient feels better today, creatinine is trending down, folic catheter is removed. Patient denies nausea vomiting. Patient denies nausea or a diarrhea Exam Narrative: GENERAL: Pleasant, in no acute distress. Well-nourished. - EYES: EOMI. Anicteric. - HENT: Moist mucous membranes. - LUNGS: Clear to auscultation bilaterally, no wheezing, rhonchi, or rales. - CARDIOVASCULAR: Regular rate and rhythm. No murmur. No JVD. - ABDOMEN: Soft, non-tender and non-distended. No palpable masses. - EXTREMITIES: No edema. Peripheral pulses 2+. Non-tender. - NEUROLOGIC: No focal neurological deficits. CN II-XII grossly intact. - PSYCHIATRIC: Awake, Alert and oriented x 3. Appropriate mood and affect. - SKIN: No rashes or lesions. Warm. - LYMPH: No cervical lymphadenopathy. Objective Data Vital Signs Vital Signs: Vital Signs - 24 hr 07/14/23 08:00 07/14/23 12:00 07/14/23 16:00 Temperature Pulse Rate 115 H 72 71 Respiratory Rate Blood Pressure Pulse Oximetry 07/14/23 14:00 07/14/23 21:15 07/14/23 20:55 Temperature 99.2 F 97.2 F L Pulse Rate 69 72 63 Respiratory Rate 14 20 Blood Pressure 119/54 L 122/67 Pulse
[2023-07-15 07:54] LABS: Glucose Point of Care 138 mg/dl (65-105)
[2023-07-15] MEDS: cloNIDine HCL 0.1 MG TABLET 0.3 MG PO (08:59)
[2023-07-15] MEDS: METOPROLOL TARTRATE 50 MG TAB 100 MG PO (08:59)
[2023-07-15] MEDS: DOCUSATE SODIUM 100 MG CAPSULE PO (09:00)
[2023-07-15] MEDS: HEPARIN SODIUM 5,000 UNITS/ML VIAL 5000 UNITS SUB-Q (09:00)
[2023-07-15] MEDS: ATORVASTATIN 20 MG TABLET PO (09:00)
[2023-07-15] MEDS: polyethylene glycoL 3350 17 GM POWD.PACK PO (09:00)
--- NOTE | 2023-07-15 11:26 | PM.PNNEP ---
Progress Note: A&P Assessment and Plan (1) RENEA (acute kidney injury): Code(s): N17.9 - Acute kidney failure, unspecified Status: Acute Assessment and Plan: improvement noted since admission creatinine 1.89mg/dl in 06/10/23; 1.0mg/dl on 01/29/23 suspicion falls on urinary retention along with prerenal factors as etiology of RENEA/ARF straight cath in ER yielded 200cc of urine subsequent starr placement in ER with 600cc urine output exacerbated by constipation(?) evaluation to date noted: UA unremarkable urine electrolytes non-prerenal urine eosinophils pending CPK normal CT imaging with mild atrophy of the kidneys s/p trial of IVFs follow repeat labs and UOP (2) Abdominal pain: Code(s): R10.9 - Unspecified abdominal pain Status: Acute Assessment and Plan: secondary to constipation (?) CT imaging on admission otherwise negative started on bowel regimen (3) Essential (primary) hypertension: Code(s): I10 - Essential (primary) hypertension Status: Chronic Assessment and Plan: reasonable control at this time follow trend of hemodynamics (4) DM2 (diabetes mellitus, type 2): Code(s): E11.9 - Type 2 diabetes mellitus without complications Status: Chronic Assessment and Plan: follow accu-cheks glycemic control per hospitalists Will continue to follow. Subjective Date/time seen: 07/15/23 11:26 Interval history: Follow-up for acute kidney injury/acute renal failure (on chronic kidney disease?). Kidney function/creatinine continue to improve with current intervention/therapy; overall, she states she feels better at the time of my visit; no further nausea/vomiting or abdominal pain; no events/issues overnight or earlier this morning. Exam Narrative: General: elderly but WD/WN female in NAD Heart: normal S1 and S2; no rub Lungs: clear to auscultation Abdomen: soft, nontender, nondistended, positive bowel sounds Extremities: no cyanosis or clubbing; no edema Skin: no rash or nodules Objective Data Vital Signs Vital Signs: Vital Signs Temp Pulse Resp BP Pulse Ox O2 Del Method 07/15/23 11:00 70 07/15/23 08:00 72 07/15/23 08:00 Room Air 07/15/23 08:46 99 Room Air 07/15/23 05:50 97 F L 69 18 141/77 H 99 07/15/23 04:00 72 07/15/23 00:00 68 07/14/23 20:55 97.2 F L 63 20 122/67 100 07/14/23 21:15 72 07/14/23 16:00 71 Intake/Output Intake/Output: Intake & Output 07/12/23 07/13/23 07/14/23 07/15/23 23:59 23:59 23:59 23:59 Intake Total 4170 2572 1200 1337 Output Total 1200 1850 1450 525 Balance 2970 722 -250 812 Meds/Results Medications: Active Medications Generic Name Dose Route Start Last Admin Trade Name Freq PRN Reason Stop Dose Admin Acetaminophen 650 mg 07/11/23 13:55 Acetaminophen 325 Mg Tablet PO Q4H PRN Mild Pain (1-3) or Fever Hydrocodone Bitart/Acetaminophen 1 tab 07/11/23 13:55 07/14/23 16:43 Hydrocodone/Acetaminophen (*Crx) 5-325 Mg Tablet PO 1 tab Q4H PRN Administration Pain Rated 4-6 Atorvastatin Calcium 20 mg 07/13/23 09:00 07/15/23 09:00 Atorvastatin 20 Mg Tablet PO 20 mg DAILY USAMA Administration Clonidine HCl 0.3 mg 07/13/23 04:55 07/15/23 08:59 Clonidine Hcl 0.1 Mg Tablet PO 0.3 mg BID USAMA Administration Dextrose 12.5 gm 07/11/23 23:59 Dextrose 50% 25 Gm/50 Ml Syringe IV PUSH PRN PRN Hypoglycemia Protocol Docusate Sodium 100 mg 07/11/23 21:00 07/15/23 09:00 Docusate Sodium 100 Mg Capsule PO 100 mg Q12HR USAMA Administration Doxycycline Hyclate 100 mg 07/14/23 18:00 07/15/23 06:37 Doxycycline Hyclate 100 Mg Tablet PO 100 mg Q12H USAMA Administration Glucagon 1 mg 07/11/23 23:59 Glucagon For Inj 1 Mg Vial IM PRN PRN Hypoglycemia Protocol Glucose 15 gm 07/11/23 23:5
--- NOTE | 2023-07-15 11:26 | P.PNNP_ITS ---
Progress Note: A&P Assessment and Plan (1) RENEA (acute kidney injury): Code(s): N17.9 - Acute kidney failure, unspecified Status: Acute Assessment and Plan: * improvement noted since admission * creatinine 1.89mg/dl in 06/10/23; 1.0mg/dl on 01/29/23 * suspicion falls on urinary retention along with prerenal factors as etiology of RENEA/ARF * straight cath in ER yielded 200cc of urine * subsequent starr placement in ER with 600cc urine output * exacerbated by constipation(?) * evaluation to date noted: * UA unremarkable * urine electrolytes non-prerenal * urine eosinophils pending * CPK normal * CT imaging with mild atrophy of the kidneys * s/p trial of IVFs * follow repeat labs and UOP (2) Abdominal pain: Code(s): R10.9 - Unspecified abdominal pain Status: Acute Assessment and Plan: * secondary to constipation (?) * CT imaging on admission otherwise negative * started on bowel regimen (3) Essential (primary) hypertension: Code(s): I10 - Essential (primary) hypertension Status: Chronic Assessment and Plan: * reasonable control at this time * follow trend of hemodynamics (4) DM2 (diabetes mellitus, type 2): Code(s): E11.9 - Type 2 diabetes mellitus without complications Status: Chronic Assessment and Plan: * follow accu-cheks * glycemic control per hospitalists Will continue to follow. Subjective Date/time seen: 07/15/23 11:26 Interval history: Follow-up for acute kidney injury/acute renal failure (on chronic kidney d isease?). Kidney function/creatinine continue to improve with current intervention/therapy; overall, she states she feels better at the time of my visit; no further nausea/vomiting or abdominal pain; no events/issues overnight or earlier this morning. Exam Narrative: General: elderly but WD/WN female in NAD Heart: normal S1 and S2; no rub Lungs: clear to auscultation Abdomen: soft, nontender, nondistended, positive bowel sounds Extremities: no cyanosis or clubbing; no edema Skin: no rash or nodules Objective Data Vital Signs Vital Signs: Vital Signs Temp Pulse Resp BP Pulse Ox O2 Del Method 07/15/23 11:00 70 07/15/23 08:00 72 07/15/23 08:00 Room Air 07/15/23 08:46 99 Room Air 07/15/23 05:50 97 F L 69 18 141/77 H 99 07/15/23 04:00 72 07/15/23 00:00 68 07/14/23 20:55 97.2 F L 63 20 122/67 100 07/14/23 21:15 72 07/14/23 16:00 71 Intake/Output Intake/Output: Intake & Output 07/12/23 07/13/23 07/14/23 07/15/23 23:59 23:59 23:59 23:59 Intake Total 4170 2572 1200 1337 Output Total 1200 1850 1450 525 Balance 2970 722 -250 812 Meds/Results Medications: Active Medications Generic Name Dose Route Start Last Admin Trade Name Freq PRN Reason Stop Dose Admin Acetaminophen 650 mg 07/11/23 13:55 Acetaminophen 325 Mg Tablet PO Q4H PRN Mild Pain (1-3) or Fever Hydrocodone Bitart/Acetaminophen 1 tab 07/11/23 13:55 07/14/23 16:43 Hydrocodone/Acetaminophen (*Crx) 5-325 Mg Tablet PO 1 tab
--- NOTE | 2023-07-15 16:00 | PM.DS ---
DS: Admitting Diagnosis Discharge Date 07/15/23 Admitting Diagnosis (1) RENEA (acute kidney injury): ?Code(s): N17.9 - Acute kidney failure, unspecified ?Status:?Acute (2) Constipation: ?Qualifiers: ?Constipation type:?unspecified constipation type? Qualified Code(s):?K59.00 - Constipation, unspecified ?Code(s): K59.00 - Constipation, unspecified ?Status:?Acute (3) Hyponatremia: ?Code(s): E87.1 - Hypo-osmolality and hyponatremia ?Status:?Acute (4) Nausea & vomiting: ?Qualifiers: ?Vomiting type:?bilious vomiting? Qualified Code(s):?R11.14 - Bilious vomiting ?Code(s): R11.2 - Nausea with vomiting, unspecified ?Status:?Acute (5) Abdominal pain: ?Code(s): R10.9 - Unspecified abdominal pain ?Status:?Acute DS: Discharge Diagnosis Discharge Diagnosis (1) RENEA (acute kidney injury): Code(s): N17.9 - Acute kidney failure, unspecified Status: Acute (2) Constipation: Qualifiers: Constipation type: unspecified constipation type Qualified Code(s): K59.00 - Constipation, unspecified Code(s): K59.00 - Constipation, unspecified Status: Acute (3) Hyponatremia: Code(s): E87.1 - Hypo-osmolality and hyponatremia Status: Acute (4) Nausea & vomiting: Qualifiers: Vomiting type: bilious vomiting Qualified Code(s): R11.14 - Bilious vomiting Code(s): R11.2 - Nausea with vomiting, unspecified Status: Acute (5) Abdominal pain: Code(s): R10.9 - Unspecified abdominal pain Status: Acute DS: Summary Hospital Course Hospital Course: Per patient patient be, 73 y/o F presents here with weakness, N/V, and lower abdominal pain with PMH of HTN, fibromyalgia, DM, and SHEYLA. Patient reports that she is unable to provide a detailed hx at this time due to illness and recent increase in confusion, estimates this has worsened in the last 6 months. HPI obtained through patient interview, 's additions, chart review, and ED provider report. Patient presented to her PCP on 07/03 complaining of nausea, vomiting, and retching approximately 30-60 minutes after eating.? Noted to have a 10 lb weight loss over the last month. N/V accompanied by belching and epigastric pain. Treated for PUD/gastritis with 30 day trial of pantoprazole BID, zofran prn, and metoclopramide before meals. Patient recently placed on metformin prior to sick visit in office, med started due to A1C of 7 and DM1 r/o, was on insulin only - IA2 autoantibody, insulin autoantibody, and GAD65 ab negative. Here today with lower left abdominal pain, N/V, constipation and decreased urine output. Last BM believed to be before Sun, exact date unknown. Reports these symptoms have been gradually worsening over the last 2+ weeks. Endorsing chills. +rigors. No diarrhea, SOB, CP, or fever. The following medical issues are addressed during hospitalization 1. RENEA high suspicion for post-renal due to urinary retention/infection secondary to constipation. WBC elevated at 19.4. does not meet SIRS criteria, given ill appearance and rigors - blood cultures sent, lactic WNL. creatinine 5.5, previously 1.89 on 06/10/23 and 1.0 on 01/29/23 BUN 133, ECC 7, GFR 8 UA: unremarkable UC pending add hepatitis panel, CK, creatinine urine, CRP, ESR, hep B antibody/antigen, hep C reflex, HIV osmolality, sodium urine, total protein creatinine, urea random consult - nephrology starr placed monitor I&Os Fluid resuscitation: 1 L NS bolus, maintenance of 125 mL/hr following. Creatinine trending down. 1.4 today Starr catheter is removed, it patient does not have urinary retention, patient will be discharged today 2. constipation CT abd wo con: Constipation, mild atrophy of the kidneys. docusate Q12 miralax QAM NS enema PRN Resolves 3. hyponatremia Na 129 hypoNa w/u urea osmosity protein to creatinine ratio urine creatinine
--- NOTE | 2023-07-15 20:49 | PM.PNNEP ---
Subjective Date/time seen: 07/15/23 10:49 Objective Data Vital Signs Vital Signs: Vital Signs - 24 hr 07/14/23 21:15 07/14/23 20:55 07/15/23 00:00 Temperature 97.2 F L Pulse Rate 72 63 68 Respiratory Rate 20 Blood Pressure 122/67 Pulse Oximetry 100 Oxygen Delivery 07/15/23 04:00 07/15/23 05:50 07/15/23 08:46 Temperature 97 F L Pulse Rate 72 69 Respiratory Rate 18 Blood Pressure 141/77 H Pulse Oximetry 99 99 Oxygen Delivery Room Air 07/15/23 08:00 07/15/23 08:00 07/15/23 12:00 Temperature Pulse Rate 72 70 Respiratory Rate Blood Pressure Pulse Oximetry Oxygen Delivery Room Air 07/15/23 14:00 07/15/23 16:00 Temperature 97.4 F L Pulse Rate 67 71 Respiratory Rate 18 Blood Pressure 106/64 Pulse Oximetry 100 Oxygen Delivery Intake/Output Intake/Output: Intake & Output 07/12/23 07/13/23 07/14/23 07/15/23 23:59 23:59 23:59 23:59 Intake Total 4170 2572 1200 1337 Output Total 1200 1850 1450 525 Balance 2970 722 -250 812 Meds/Results Radiology Results: ITS Impressions Abdomen/Pelvis CT 07/11/23 13:39 IMPRESSION: 1. Constipation. Chest X-Ray 07/13/23 09:52 IMPRESSION: 1. Stable mild scarring at the lung apices. Labs Labs: Laboratory Results - last 24 hr 07/14/23 07/15/23 07/15/23 20:58 05:50 07:41 WBC 10.6 H RBC 3.18 L Hgb 9.6 L Hct 29.5 L MCV 92.8 MCH 30.2 MCHC 32.5 RDW 11.9 Plt Count 258 MPV 10.8 H Immature Gran % (Auto) 0.5 Neut % (Auto) 49.9 Lymph % (Auto) 35.3 Brown % (Auto) 6.8 Eos % (Auto) 6.7 H Baso % (Auto) 0.8 Lymph # (Auto) 3.74 H Brown # (Auto) 0.7 H Eos # (Auto) 0.7 H Baso # (Auto) 0.1 Abs Immat Gran (auto) 0.05 H Absolute Neuts (auto) 5.3 Absolute Nucleated RBC 0.0 Nucleated RBC % 0.0 Sodium 140 Potassium 3.6 Chloride 106 Carbon Dioxide 27 Anion Gap 7 L BUN 28 H Creatinine 1.40 H Estim Creat Clear Calc 30 Estimated GFR 37 L Glucose 129 H POC Capillary Glucose 142 H 138 H Calcium 8.3 L Total Bilirubin 0.6 AST 34 ALT 25 Alkaline Phosphatase 66 Total Protein 6.0 L Albumin 3.2 L
[2023-07-16 06:55] LABS: Glucose Point of Care 130 mg/dl (65-105)
== END 2023-07-15 16:30 | disposition home or self-care (01) | DRG 392 ==
LOC: ANHED 12:40 → ANHIMU 14:50 → ANH3MEDSUR 07-12 17:55
PROVIDERS: Internal Medicine Nephrology; Student in an Organized Health Care Education/Training Program; Admitting Provider Internal Medicine; Emergency Provider Emergency Medicine; PCP Family Medicine Adolescent Medicine; Visit Provider Hospitalist
DX: K59.00 Constipation, unspecified (principal); N17.9 Acute kidney failure, unspecified; E87.1 Hypo-osmolality and hyponatremia; R11.14 Bilious vomiting; E10.9 Type 1 diabetes mellitus without complications; F12.90 Cannabis use, unspecified, uncomplicated; I25.2 Old myocardial infarction; I10 Essential (primary) hypertension; M79.7 Fibromyalgia; M17.0 Bilateral primary osteoarthritis of knee; Z79.4 Long term (current) use of insulin; Z79.84 Long term (current) use of oral hypoglycemic drugs
CPT/HCPCS: 36415; 71046; 74176; 80053; 80076; 80307; 81001; 81003; 82550; 82570; 82948; 83605; 83690; 83735; 83935; 84100; 84156; 84300; 84540; 85025; 85055; 85652; 85999; 86140; 86703; 86705; 86706; 86803; 87040; 87340; 93005; 96361; 96365; 96375; 97110; 97116; 97161; 97165; 97530; 97535; 99285; A9270; G0432; J0696; J1644; J1815; J1836; J2270; J2405; J7030

== ENCOUNTER 2023-07-21 08:37 | Emergency (ER) | payer OTHER, SELFPAY ==
[2023-07-21] VITALS (8 sets, daily range): BP systolic 164–195; BP diastolic 84–103; PULSE 77–100; RESP 13–20; TEMP 36.4; O2SAT 99–100
--- NOTE | ~2023-07-21 | XR_ITS ---
EXAMINATION: XR chest 2V DATE: 07/21/2023 09:29 INDICATION: Weakness. TECHNIQUE: Frontal and lateral views of the chest were obtained. COMPARISON: Chest 2 views 07/13/2023, CT abdomen and pelvis 07/11/2023 FINDINGS: There is mild scarring at the lung apices. There are chronic reticular opacities in the low er lung zones. No pleural effusion or pneumothorax. The heart size is normal. IMPRESSION: 1. Stable mild chronic interstitial lung disease. Reviewed, dictated and finalized at location A. 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
--- NOTE | 2023-07-21 08:44 | ECG_ITS ---
Measurements Intervals [place] Rate: 77 P: 24 UT: 166 QRS: -7 QRSD: 82 T: 41 QT: 360 QTc: 410 Interpretive Statements SINUS RHYTHM LOW QRS VOLTAGE IN PRECORDIAL LEADS CONSIDER INFERIOR INFARCT, AGE INDETERMINATE BASELINE ARTIFACT- AVF, V3-V6 ABNORMAL ECG COMPARED TO ECG 07/13/2023 06:47:37 SINUS RHYTHM NOW PRESENT Electronically Signed On 07-21-2023 14:26:39 MANAGER EPIC by Chalino Navarro D.O.
[2023-07-21 09:01] LABS: Basophils Absolute Auto 0.1 K/mm3 (0.0-0.1); Basophils Percent Auto 0.6 % (0.2-1.2); Eosinophils Absolute Auto 0.4 K/mm3 (0-0.3); Eosinophils Percent Auto 2.5 % (0-4.4); Hemoglobin 11.1 g/dL (12.0-15.0); Immature Granulocyte Absolute 0.07 K/mm3 (0.00-0.031); Immature Granulocyte Percent A 0.5 % (0-0.5); Lymphocytes Absolute Auto 3.01 K/mm3 (0.9-3.2); Lymphocytes Percent Auto 21.3 % (18.3-44.2); Mean Corpuscular HGB Conc 33.6 g/dl (32-36); Mean Corpuscular Hemoglobin 30.7 pg (26-34); Mean Corpuscular Volume 91.2 fl (80-100); Mean Platelet Volume 9.7 fl (7.4-10.4); Monocytes Percent Auto 6.9 % (2.6-8.5); Neutrophils Absolute Auto 9.6 K/mm3 (1.3-6.7); Neutrophils Percent Auto 68.2 % (45.5-73.1); Platelet Count Result 377 k/mm3 (150-375); Red Blood Count 3.62 M/mm3 (4.2-5.4); Red Cell Distribution Width 12.7 % (11.5-14.5); White Blood Count 14.2 K/mm3 (4.5-10.0)
[2023-07-21 09:12] LABS: Alanine Aminotransferase 34 U/L (6-35); Albumin Level 4.5 g/dL (3.5-5.1); Alkaline Phosphatase 64 U/L (38-126); Anion Gap 13 mmol/L (8-16); Aspartate Amino Transferase 28 U/L (14-36); Bilirubin,Total 0.6 mg/dL (0.2-1.3); Blood Urea Nitrogen 23 mg/dL (7-17); Carbon Dioxide 25 mmol/L (22-30); Chloride 101 mmol/L (98-107); Estimated CRCL calculation 32 ml/min; Estimated Glomerular Filt Rate 40; Glucose 148 mg/dL (65-110); Potassium 4.6 mmol/L (3.4-5.0); Sodium 139 mmol/L (137-145)
--- NOTE | 2023-07-21 09:32 | ED.GENADULT ---
HPI - General Adult General Chief complaint: Weakness Stated complaint: MULTIPLE C/O Time Seen by Provider: 07/21/23 09:31 History of Present Illness HPI narrative: Patient is [age]-year-old female who presents to the emergency department this morning complaining of generalized weakness. Patient states that she was admitted here approximately 1 week ago for the same symptoms and was noted to have an acute kidney injury. Patient then was discharged home with outpatient follow-up and she admits that she has not followed up with anyone since her discharge. Patient states her symptoms have persisted, she just feels generally weak. Patient denies any specific symptoms including chest pain, shortness of breath, nausea, vomiting, abdominal pain, dysuria, hematuria, constipation, diarrhea, melena, hematochezia, fevers or chills. Patient also denies any headaches, dizziness, lightheadedness, blurry visions, focal weakness, numbness and or tingling. There are no other modifying, alleviating, or precipitating factors at this time. Related Data Allergies Allergy/AdvReac Type Severity Reaction Status Date / Time amoxicillin [From Augmentin] Allergy Unknown Verified 07/21/23 09:00 clavulanic acid Allergy Unknown Verified 07/21/23 09:00 [From Augmentin] Review of Systems Review of Systems: All systems are reviewed and are negative unless stated otherwise in the HPI. [facility] Past Medical History Medical History Arthralgia of multiple joints Bilateral primary osteoarthritis of knee DM2 (diabetes mellitus, type 2) Essential (primary) hypertension Fibromyalgia Generalized anxiety disorder Non-ST elevated myocardial infarction (non-STEMI) Osteoarthritis Osteoarthritis of hands, bilateral Surgical History Surgical History History of tubal ligation (~1989) Family History Family History Grandparent Acute myocardial infarction Cerebrovascular accident Heart disease Mother Colon polyp Diabetes mellitus Pancreatic adenocarcinoma Other Depression Hypertension Social History Social History Social History: Surrogate medical decision maker: Shravan Ramsay, spouse. Code status: Full code. Smoking status: Former smoker Second hand tobacco smoke exposure: No Additional smoking assessment comments: current every day marijuana pipe smoker Alcohol intake: never Substance use: current Substance use type: marijuana Lack of Transportation: No Lack of Food: Never True Current Housing: I Have Housing Concerned About Future Housing: No Difficulty Paying Gas/Electric Bills: No Difficulty Paying for Meds: No Currently Unemployed: YES Education: High School Diploma/GED Difficulty w/ Childcare or Family Care: No Living arrangements: with family Occupation/Education: retired Spiritual care concerns: No Agree to blood products: Yes Exam Narrative: General: Alert, awake, afebrile, in no acute distress. HEENT: PERRL, no rhinorrhea, no post nasal drip, oropharynx clear. Neck: Trachea midline, no JVD, no lymphadenopathy. Cardiovascular: Regular rate and rhythm, no murmurs, rubs or gallops, no peripheral edema. Respiratory: Clear to auscultation bilaterally, no tachypnea, no wheezing, no rhonchi, no rubs, no respiratory distress. Abdomen: Soft, nontender, nondistended, no rebound, no guarding, no peritoneal signs. Musculoskeletal: No joint swelling or deformity, normal muscle tone. Skin: No rashes or petechia, no signs of infection. Psychiatric: Alert and oriented, normal behavior and judgment for situation. Neurological: Alert and oriented to person, place, and time. Follows all commands. No focal deficits, intact, equal and symmetrical motor strength in the bilateral upper
[2023-07-21] MEDS: SODIUM CHLORIDE 0.9% IV 1,000 ML 999 ML IV CONT (09:39)
[2023-07-21 10:17] LABS: Appearance Urine Clear (Clear); Bilirubin Urine Negative (Negative); Blood Urine Negative (Negative); Color Urine Yellow (Yellow); Glucose Urine UA Trace mg/dL (Negative); Ketones Urine Negative (Negative); Leukocyte Esterase Ur Negative LEU/UL (Negative); Nitrate Urine Negative (Negative); Protein Urine Negative (Negative); Specific Grav Ur 1.008 (1.001-1.035); Urobilinogen Urine 0.2 mg/dL (<2.0)
[2023-07-21 10:28] LABS: Add Urine Microscopic? NO
[2023-07-21 10:37] LABS: Influenza A QL RT-PCR Negative (Negative); Influenza B QL RT-PCR Negative (Negative); SARS-CoV-2 RNA PCR Negative (Negative)
[2023-07-21 11:41] LABS: Creatine Kinase 44 U/L (30-135)
== END 2023-07-21 12:55 | disposition home or self-care (01) ==
PROVIDERS: Emergency Provider Emergency Medicine; PCP Family Medicine Adolescent Medicine
DX: N17.9 Acute kidney failure, unspecified (principal); R53.1 Weakness; E86.0 Dehydration; Z20.822 Contact with and (suspected) exposure to COVID-19; E11.9 Type 2 diabetes mellitus without complications; I10 Essential (primary) hypertension; I25.2 Old myocardial infarction; M79.7 Fibromyalgia; M17.0 Bilateral primary osteoarthritis of knee; M19.042 Primary osteoarthritis, left hand; M19.041 Primary osteoarthritis, right hand; Z79.84 Long term (current) use of oral hypoglycemic drugs; R94.31 Abnormal electrocardiogram [ECG] [EKG]
CPT/HCPCS: 36415; 71046; 80053; 81003; 82550; 84436; 84443; 85025; 87636; 93005; 96360; 96361; 99284; J7030

== ENCOUNTER 2023-08-13 08:24 | Outpatient (CLI) | payer OTHER, SELFPAY ==
--- NOTE | ~2023-08-13 | US_ITS ---
Limited Abdominal Sonogram: Real-time sonographic imaging of the right upper quadrant was performed. Clinical History: Abdominal pain Findings: The liver appears normal with no evidence of mass lesion or bile duct dilatation. Main por eva vein demonstrates normal direction of flow. There is a wall echo shadow complex, consistent with gallbladder which is filled with stones. No definite gallbladder wall thickening. The common bile trent t measures 7 mm. The visualized pancreas, aorta, and IVC are unremarkable. Impression: Cholelithiasis, as detailed above. Reviewed, dictated and finalized at location M. [facility]TER Impression: Cholelithiasis, as detailed above.
[2023-08-13 09:50] LABS: Anion Gap 7 mmol/L (8-16); Blood Urea Nitrogen 49 mg/dL (7-17); Calcium 9.5 mg/dL (8.4-10.2); Carbon Dioxide 35 mmol/L (22-30); Chloride 95 mmol/L (98-107); Estimated Glomerular Filt Rate 34; Glucose 162 mg/dL (65-110); Potassium 4.3 mmol/L (3.4-5.0); Sodium 137 mmol/L (137-145)
== END 2023-08-13 08:25 | disposition home or self-care (01) ==
PROVIDERS: PCP Family Medicine Adolescent Medicine; Visit Provider Nurse Practitioner Family
DX: K80.20 Calculus of gallbladder without cholecystitis without obstruction (principal); R79.89 Other specified abnormal findings of blood chemistry
CPT/HCPCS: 36415; 76705; 80048

== ENCOUNTER 2023-08-15 14:51 | Outpatient (CLI) | payer OTHER, SELFPAY ==
[2023-08-15 15:23] LABS: Basophils Absolute Auto 0.1 K/mm3 (0.0-0.1); Basophils Percent Auto 0.7 % (0.2-1.2); Eosinophils Absolute Auto 0.5 K/mm3 (0-0.3); Eosinophils Percent Auto 4.2 % (0-4.4); Hematocrit 29.2 % (37.0-47.0); Hemoglobin 9.7 g/dL (12.0-15.0); Immature Granulocyte Absolute 0.04 K/mm3 (0.00-0.031); Immature Granulocyte Percent A 0.4 % (0-0.5); Lymphocytes Absolute Auto 3.91 K/mm3 (0.9-3.2); Lymphocytes Percent Auto 36.1 % (18.3-44.2); Mean Corpuscular HGB Conc 33.2 g/dl (32-36); Mean Corpuscular Hemoglobin 31.5 pg (26-34); Mean Corpuscular Volume 94.8 fl (80-100); Mean Platelet Volume 9.8 fl (7.4-10.4); Monocytes Absolute Auto 0.9 K/mm3 (0.1-0.6); Monocytes Percent Auto 8.6 % (2.6-8.5); Neutrophils Absolute Auto 5.4 K/mm3 (1.3-6.7); Platelet Count Result 327 k/mm3 (150-375); Red Blood Count 3.08 M/mm3 (4.2-5.4); Red Cell Distribution Width 12.2 % (11.5-14.5); White Blood Count 10.8 K/mm3 (4.5-10.0)
[2023-08-15 16:54] LABS: Alanine Aminotransferase 13 U/L (6-35); Albumin Level 4.2 g/dL (3.5-5.1); Alkaline Phosphatase 65 U/L (38-126); Anion Gap 8 mmol/L (8-16); Aspartate Amino Transferase 17 U/L (14-36); Bilirubin,Total 0.3 mg/dL (0.2-1.3); Blood Urea Nitrogen 56 mg/dL (7-17); CRP 0.6 mg/dL (<1.0); Calcium 9.4 mg/dL (8.4-10.2); Carbon Dioxide 30 mmol/L (22-30); Chloride 96 mmol/L (98-107); Estimated Glomerular Filt Rate 32; Glucose 136 mg/dL (65-110); Potassium 4.5 mmol/L (3.4-5.0); Sodium 134 mmol/L (137-145)
[2023-08-15 17:14] LABS: Erythrocyte Sedimentation Rate 78 mm/hr (0-20)
[2023-08-15 20:38] LABS: Iron 87 ug/dL (37-170)
[2023-08-15 20:50] LABS: Percent Iron Saturation 27 % (20-50)
== END 2023-08-15 14:52 | disposition home or self-care (01) ==
PROVIDERS: Nurse Practitioner Family; PCP Family Medicine Adolescent Medicine; Visit Provider Internal Medicine Hematology & Oncology
DX: D64.9 Anemia, unspecified (principal); D72.829 Elevated white blood cell count, unspecified
CPT/HCPCS: 36415; 80053; 83540; 83550; 85025; 85652; 86140

== ENCOUNTER 2023-10-03 10:48 | Outpatient (CLI) | payer MEDICARE, SELFPAY ==
[2023-10-03 11:39] LABS: Basophils Absolute Auto 0.1 K/mm3 (0.0-0.1); Basophils Percent Auto 0.7 % (0.2-1.2); Eosinophils Absolute Auto 0.9 K/mm3 (0-0.3); Eosinophils Percent Auto 5.2 % (0-4.4); Hematocrit 35.3 % (37.0-47.0); Hemoglobin 11.9 g/dL (12.0-15.0); Immature Granulocyte Absolute 0.08 K/mm3 (0.00-0.031); Immature Granulocyte Percent A 0.5 % (0-0.5); Lymphocytes Absolute Auto 3.61 K/mm3 (0.9-3.2); Lymphocytes Percent Auto 22.3 % (18.3-44.2); Mean Corpuscular HGB Conc 33.7 g/dl (32-36); Mean Corpuscular Hemoglobin 30.7 pg (26-34); Mean Corpuscular Volume 91.2 fl (80-100); Mean Platelet Volume 9.8 fl (7.4-10.4); Monocytes Percent Auto 6.4 % (2.6-8.5); Neutrophils Absolute Auto 10.5 K/mm3 (1.3-6.7); Neutrophils Percent Auto 64.9 % (45.5-73.1); Platelet Count Result 297 k/mm3 (150-375); Red Blood Count 3.87 M/mm3 (4.2-5.4); Red Cell Distribution Width 11.9 % (11.5-14.5); White Blood Count 16.2 K/mm3 (4.5-10.0)
[2023-10-07 11:00] LABS: Albumin 4.1 g/dL (3.8-4.8); Alpha 1 Globulin 0.3 g/dL (0.2-0.3); Alpha 2 Globulin 0.9 g/dL (0.5-0.9); Beta 1 Globulin 0.5 g/dL (0.4-0.6); Gamma Globulin 1.2 g/dL (0.8-1.7); Protein, Total 7.5 g/dL (6.1-8.1)
== END 2023-10-03 10:49 | disposition home or self-care (01) ==
LOC: ANHLAB 10:53
PROVIDERS: PCP Family Medicine Adolescent Medicine; Visit Provider Internal Medicine Hematology & Oncology
DX: D72.829 Elevated white blood cell count, unspecified (principal); D64.9 Anemia, unspecified
CPT/HCPCS: 36415; 84155; 84165; 85025; 88184; 88185

== ENCOUNTER 2024-04-08 11:27 | Outpatient (CLI) | payer MEDICARE, SELFPAY ==
[2024-04-08 11:46] LABS: Basophils Absolute Auto 0.1 K/mm3 (0.0-0.1); Basophils Percent Auto 0.7 % (0.2-1.2); Eosinophils Absolute Auto 0.4 K/mm3 (0-0.3); Eosinophils Percent Auto 3.1 % (0-4.4); Hematocrit 37.3 % (37.0-47.0); Hemoglobin 12.3 g/dL (12.0-15.0); Immature Granulocyte Absolute 0.05 K/mm3 (0.00-0.031); Immature Granulocyte Percent A 0.4 % (0-0.5); Lymphocytes Absolute Auto 3.48 K/mm3 (0.9-3.2); Lymphocytes Percent Auto 28.8 % (18.3-44.2); Mean Platelet Volume 9.4 fl (7.4-10.4); Monocytes Absolute Auto 0.8 K/mm3 (0.1-0.6); Monocytes Percent Auto 6.8 % (2.6-8.5); Neutrophils Absolute Auto 7.3 K/mm3 (1.3-6.7); Neutrophils Percent Auto 60.2 % (45.5-73.1); Platelet Count Result 284 k/mm3 (150-375); Red Cell Distribution Width 12.3 % (11.5-14.5); White Blood Count 12.1 K/mm3 (4.5-10.0)
[2024-04-08 11:51] LABS: Blood Urea Nitrogen 30 mg/dL (8-26); Carbon Dioxide 30 mmol/L (22-30); Chloride 98 mmol/L (98-109); Estimated Glomerular Filt Rate 37; Glucose 187 mg/dL (70-105); Ionized Calcium (POC) 1.19 mmol/L (1.11-1.31); Potassium 4.7 mmol/L (3.5-4.9); Sodium 136 mmol/L (138-146)
== END 2024-04-08 11:28 | disposition home or self-care (01) ==
LOC: ANHLAB 11:32
PROVIDERS: PCP Family Medicine Adolescent Medicine; Visit Provider Internal Medicine Hematology & Oncology
DX: D72.829 Elevated white blood cell count, unspecified (principal)
CPT/HCPCS: 36415; 80047; 85025

== ENCOUNTER 2024-10-16 06:50 | Inpatient (IN) | payer OTHER, SELFPAY ==
[2024-10-16] VITALS (14 sets, daily range): BP systolic 170–212; BP diastolic 72–123; PULSE 63–90; RESP 12–18; TEMP 36.8–37.1; O2SAT 98–100; BMI 27.5
--- NOTE | ~2024-10-16 | XR_ITS ---
EXAMINATION: XR chest 1V portable DATE: 10/16/2024 08:15 INDICATION: Chest pain. TECHNIQUE: A single frontal view of the chest was obtained. COMPARISON: Chest 2 views 07/21/2023, CT abdomen and pelvis 07/11/2023, chest CT 01/21/2023 FINDINGS: The lung volumes are normal. There is a diffuse interstitial pattern. No pleural effusion o r pneumothorax. The heart size is normal. IMPRESSION: 1. Stable chronic interstitial lung disease. Reviewed, dictated and finalized at location A. SFER COORDINATOR
--- NOTE | ~2024-10-16 | XR_ITS ---
HISTORY: diabetic foot ulcer COMPARISON: None TECHNIQUE: 2 views of the left foot were performed FINDINGS: No acute fracture or dislocation is appreciated. Possible soft tissue defect along the plantar surface of the hindfoot. No adjacent bony abnormality. Ossification of the insertion of the Achilles tendon. Periarticular osteopenia is noted. Significant degenerative disease. No radiopaque foreign body is appreciated. IMPRESSION: Soft tissue defect along the plantar surface of the hindfoot without adjacent bony abnor mality. Reviewed, dictated and finalized at location A. SHING MACHINE TENDER IMPRESSION: Soft tissue defect along the plantar surface of the hindfoot witho ut adjacent bony abnormality.
--- NOTE | ~2024-10-16 | CT_ITS ---
EXAMINATION: CT brain wo con DATE: 10/16/2024 10:56 INDICATION: Altered mental status and weakness TECHNIQUE: Computed tomography (CT) of the head was performed without intravenous contrast. Sagittal and coronal reconstructions were performed. The mA was adjusted according to patient size. Iterative reconstruction technique was employed. The dose-length product was 605.33 mGy-cm. COMPARISON: head CT and brain MR dated 01/21/2023 FINDINGS: There are some residual grade contrast evident in the vessels related to the contrast enhanced CT of the abdomen and pelvis performed an hour and a half prior. Unchanged small regions of encephalomalaci a in the bilateral frontal lobes and left occipital lobe consistent with sequela old infarcts. No acu te intracranial hemorrhage, acute infarction or abnormal extra axial fluid collection. There is mild scattered white matter hypoattenuation consistent with chronic small vessel ischemic disease. Symmetr ic prominence of the sulci consistent with mild age-appropriate diffuse cerebral volume loss. Ventric les are normal and symmetric. No mass/mass effect. Intracranial calcified cerebral atherosclerosis is noted at the carotid siphons. The orbits, paranasal sinuses and mastoid air cells are normal. IMPRESSION: 1. 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 No acute intr acranial process. 2. Age-related changes including mild diffuse volume loss and mild scattered white matter hypoattenua tion consistent with chronic small vessel ischemic disease. Reviewed, dictated and finalized at location A. E FEEDER IMPRESSION: 1. Unchanged small old infarcts in the bilateral frontal lobes and left occipit al lobe. No acute intracranial process. 2. Age-related changes including mild diffuse volume loss and mild scattered wh ite matter hypoattenuation consistent with chronic small vessel ischemic diseas e.
--- NOTE | ~2024-10-16 | CT_ITS ---
CTA brain carotid Ordering provider: Lauren Patel APRN History: . Confusion . Comparison: Reference is made to an MRI of the brain performed 3 hours earlier. Technique: CT angiogram head and neck was performed following timed intravenous injection of contrast . Thin slice axial images and reformatted coronal images were obtained. Three dimensional reformatted images of the brain were also obtained using a [employer] workstation. FINDINGS: HEAD: --ANTERIOR AND MIDDLE CEREBRAL ARTERIES AND BRANCHES: Normal caliber and contour. --INTERNAL CAROTID ARTERIES: Mild atheromatous disease but no significant stenosis. No occlusion. --BASILAR ARTERY AND BRANCHES: Normal caliber and contour. No atheromatous disease. --POSTERIOR CEREBRAL ARTERIES: Normal caliber and contour --POSTERIOR COMMUNICATING ARTERIES: Not visualized which is probably related to congenital absence or small size. --ANEURYSM: None visualized. --BRAIN: Please refer to report of CT head performed less than 24 hours earlier. --BONES AND SUPERFICIAL SOFT TISSUES: Please refer to report of CT head performed less than 24 hours earlier. --PARANASAL SINUSES AND MASTOIDS: Please refer to report of CT head done less than 24 hours earlier. NECK: --RIGHT CERVICAL CAROTID SYSTEM: Mild atheromatous disease of the carotid bulb and proximal internal carotid artery without significant stenosis. Percent stenosis per NASCET criteria is 0% No carotid d issection. --LEFT CERVICAL CAROTID SYSTEM: Mild atheromatous disease of the carotid bulb and proximal internal c arotid artery without significant stenosis. Percent stenosis per NASCET criteria is 0% No carotid di ssection. --VERTEBRAL ARTERIES: Normal caliber and contour. --VISUALIZED AORTIC ARCH AND BRANCHING VESSELS: Mild atheromatous disease but no significant stenosis . --SOFT TISSUES: Normal. --CERVICAL SPINE: Age advanced degenerative changes. IMPRESSION: 1. Normal CTA head and neck. Percent stenosis per NASCET criteria is 0% Reviewed, dictated and finalized at location A. RAM ARRANGER
--- NOTE | ~2024-10-16 | CT_ITS ---
EXAMINATION: CT abdomen pelvis w con DATE: 10/16/2024 09:05 INDICATION: Epigastric abdominal pain. TECHNIQUE: Computed tomography (CT) of the abdomen and pelvis was performed with 100 mL Omnipaque 350 intravenous contrast. Automated exposure control and iterative reconstruction technique were employe d. The dose-length product was 880.14 mGy-cm. COMPARISON: CT abdomen and pelvis 07/11/2023 FINDINGS: The visualized portions of lung bases demonstrate peripheral septal thickening and honeycom bryce. No pleural effusion. The heart size is normal. No pericardial effusion. The liver is normal. Ca lcifications in the spleen are consistent with old granulomatous disease. There is a gallstone in the gallbladder which is normal in size. The pancreas and adrenal glands are normal. There is cortical t hinning of the kidneys. There is a 4 mm cyst in right kidney. There is diverticulosis of the colon wi thout evidence of diverticulitis. There is a large volume of stool in the colon. The appendix is norm al. There is calcified atherosclerosis of the aorta and many of the other arteries. There is a chroni c calcified intimal flap in the abdominal aorta. There are no pathologically enlarged lymph nodes. Th ere is no free intraperitoneal fluid. There is severe lower lumbar spondylosis. There is mild thoraci c spondylosis. IMPRESSION: 1. Cholelithiasis. No evidence of acute cholecystitis. 2. Mild chronic interstitial lung disease in a pattern of usual interstitial pneumonia (UIP). Reviewed, dictated and finalized at location A. STRATE JUDGE IMPRESSION: 1. Cholelithiasis. No evidence of acute cholecystitis. 2. Mild chronic interstitial lung disease in a pattern of usual interstitial pn eumonia (UIP).
--- NOTE | ~2024-10-16 | MR_ITS ---
EXAMINATION: MR brain/brain stem wo con DATE: 10/17/2024 12:19 INDICATION: Metabolic encephalopathy TECHNIQUE: Magnetic resonance imaging (MRI) of the brain and brainstem was performed without intraven ous contrast. Sequences included sagittal and axial T1-weighted SE, axial diffusion-weighted FS SE, a xial T2*-weighted GRE, axial T2-weighted FLAIR, and axial T2-weighted FSE. Apparent diffusion coeffic ient (ADC) maps were created. COMPARISON: Head CT dated 10/16/2024 and brain MR dated 01/22/2023 FINDINGS: Again seen are small regions of encephalomalacia consistent with chronic infarcts in the bilateral fr ontal lobes and in the left occipital lobe. There are no areas of restricted diffusion to suggest acu te infarction. No intracranial hemorrhage or abnormal intracranial mass lesion. There are scattered a reas of nonspecific increased T2-weighted signal intensity in the cerebral white matter, predominantl y involving the deep and periventricular white matter. There are no intraparenchymal signal abnormali ties seen on the other pulse sequences. The ventricles are symmetric and normal in size. There are no abnormal extra-axial fluid collections. Flow voids are seen in the cerebral arteries on the T2-weigh [place] sequences consistent with their expected patency. Mild mucosal thickening in the bilateral ethmoi d sinuses. Visualized orbits and soft tissues are unremarkable. IMPRESSION: 1. No acute intracranial process. 2. 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 Reviewed, dictated and finalized at location A. ER FOOD PRODUCTS IMPRESSION: 1. No acute intracranial process. 2. Chronic small infarcts at the bilateral frontal lobes and left occipital lob e.
--- NOTE | 2024-10-16 07:31 | ECG_ITS ---
Test Date: 2024-10-16 07:55:50 Measurements Intervals [place] Rate: 58 P: 51 IA: 194 QRS: 0 QRSD: 81 T: 50 QT: 444 QTc: 437 Interpretive Statements SINUS BRADYCARDIA BORDERLINE ECG No previous ECG available for comparison Electronically Signed On 10-16-2024 08:09:25 MACHINE COREMAKER by Chalino Navarro D.O.
[2024-10-16] MEDS: SODIUM CHLORIDE 0.9% IV 1,000 ML 150 ML IV CONT (07:50)
[2024-10-16 08:07] LABS: Basophils Absolute Auto 0.1 K/mm3 (0.0-0.1); Basophils Percent Auto 0.6 % (0.2-1.2); Eosinophils Absolute Auto 0.2 K/mm3 (0-0.3); Eosinophils Percent Auto 1.2 % (0-4.4); Hematocrit 39.9 % (37.0-47.0); Hemoglobin 12.8 g/dL (12.0-15.0); Immature Granulocyte Absolute 0.06 K/mm3 (0.00-0.031); Immature Granulocyte Percent A 0.4 % (0-0.5); Lymphocytes Absolute Auto 1.88 K/mm3 (0.9-3.2); Lymphocytes Percent Auto 13.4 % (18.3-44.2); Mean Corpuscular HGB Conc 32.1 g/dl (32-36); Mean Corpuscular Hemoglobin 28.1 pg (26-34); Mean Corpuscular Volume 87.5 fl (80-100); Monocytes Absolute Auto 0.9 K/mm3 (0.1-0.6); Neutrophils Percent Auto 78.4 % (45.5-73.1); Platelet Count Result 301 k/mm3 (150-375); Red Blood Count 4.56 M/mm3 (4.2-5.4); White Blood Count 14.1 K/mm3 (4.5-10.0)
[2024-10-16 08:19] LABS: Lactic Acid Reflex 3.5 mmol/L (0.7-2.0)
[2024-10-16 08:21] LABS: Prothrombin Time 13.5 Seconds (11.1-14.7)
--- OUTSIDE RECORDS SUMMARY | 2024-10-16 08:24 | XMS_ITS | Clinical Summary ---
Author Organization [facility] Quirino bobby [facility] Address [address] [place] [address] Care Team Providers Care Lead Recreation Assistant Name Role Phone Mateo Alfaro MD Primary Care Provider [phone] Allergies Active Allergy Reactions Criticality Noted Date Comments Amoxicillin-Pot Clavulanate Hives High 08/15/20 23 Medications cloNIDine HCL (CATAPRES) 0.3 mg tablet Take 1 Tablet by mouth 2 times daily. 4 Active metoprolol tartrate (LOPRESSOR) 100 mg tablet Take 1 Tablet by mouth 2 times daily. 3 Active metFORMIN (GLUCOPHAGE XR) 500 mg Extended Release 24 hour tablet Take 1 Tablet by mouth 2 times daily. 4 Active glimepiride (AMARYL) 1 mg tablet TAKE 1 TABLET BY MOUTH IN THE MORNING WITH BREAKFAST 4 Active furosemide (LASIX) 40 mg tablet take 1 tablet by mouth in the morning 3 Active Invokana 300 mg tablet Take 1 Tablet by mouth daily. 4 Active dicyclomine (BENTYL) 10 mg capsule Take 10 mg by mouth Continuous as needed. 3 Active HYDROcodone-matti taminophen (NORCO) 5-325 mg tablet Take 1 Tablet by mouth every 6 hours as needed for Pain. 4 Active Active Problems Problem Noted Date Diagnosed Date Chronic anemia 08/15/2023 Encounters Date Type Department Care Team Description 09/24/2024 External Device Data [facility] ABSTRACTION Provider, Abstract 09/23/2024 External Device Data [facility] ABSTRACTION Provider, Abstract 09/22/2024 External Device Data [facility] ABSTRACTION Provider, Abstract 09/15/2024 External Device Data [facility] ABSTRACTION Provider, Abstract from Last 3 Months Family History Medical History Relation Name Comments Cancer Father Cancer Mother Cancer Sister Relation Name Status Comments Father Mother Sister Social History Tobacco Use Types Packs/Day Years Used Date Smoking Tobacco: Former Cigarettes 1 5 0 09/02/1979 - 09/02/1984 Tobacco Cessation:Counseling Given: Not Answered Alcohol Use Standard Drinks/Week Comments Never 0 (1 standard drink = 0.6 oz pur e alcohol) Comments Unknown Sex and Gender Information Value Date Recorded Sex Assigned at Not on file Legal Sex Female 9:41 AM 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 Gender Identity Not on file Sexual Orientation Not on file Last Filed Vital Signs Vital Sign Reading Time Taken Comments Blood Pressure 128/77 04/08/2024 11:49 AM CDT Pulse 71 04/08/2024 11:49 AM CDT Temperature 36.7 C (98 F) 04/08/2024 11:49 AM CDT Respiratory Rate 16 04/08/2024 11:49 AM CDT Oxygen Saturation 90% 04/08/2024 11:49 AM CDT Inhaled Oxygen Concentration - - Weight 75.3 kg (166 lb) 04/08/2024 11:49 AM CDT Height 165.1 cm (5' 5 ) 08/15/2023 1:57 PM 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 Body Mass Index 27.62 08/15/2023 1:57 PM 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 Plan of Treatment Upcoming Encounters Date Type Department Care Team (Late st Contact Info) Description 04/12/2025 10:15 AM CDT Office Visit [facility] Oncology and Hematology [facility] [address] [facility] [address] [place] [address] Emerson Souza MD [address] [place] [address] Health Maintenance Due Date Last Done Comments DTAP/TDAP/TD VACCINES (1 - Tdap) 12/31/1970 BREAST CANCER SCREENING 1992 COLORECTAL SCREENING 12/31/1996 Colorectal Cancer Screening 12/31/1996 FIT-DNA Q 3 years 12/31/1996 FIT/FOBT Q 1 year 12/31/1996 Flex Sig/CT Colonography Q 5 years 12/31/1996 PNEUMOCOCCAL VACCINE 65+ YEARS (1 of 1 - PCV) 01/01/20 02 ZOSTER VACCINE (1 of 2) 12/31/2001 RSV VACCINE (60+ or ) (1 - Risk 60-74 years 1-dose series) 2012 OSTEOPOROSIS SCREENING 12/31/2016 INFLUENZA VACCINE (#1) 2024 Insurance [employer] [place] MED[place] PART A AND B PLDT/re3D PPO [employer] [place] Care Teams Lead Recreation Assistant Relationship Specialty Start Date End Date Mateo Alfaro MD [address] [phone] PCP - General Family Practice 08/15/23
[2024-10-16 08:29] LABS: Alanine Aminotransferase 18 U/L (6-35); Albumin Level 3.9 g/dL (3.5-5.1); Alkaline Phosphatase 81 U/L (38-126); Anion Gap 14 mmol/L (4-12); Aspartate Amino Transferase 19 U/L (14-36); Bilirubin,Total 0.6 mg/dL (0.2-1.3); Blood Urea Nitrogen 21 mg/dL (7-17); Calcium 9.8 mg/dL (8.4-10.2); Carbon Dioxide 26 mmol/L (22-30); Chloride 99 mmol/L (98-107); Estimated CRCL calculation 46 ml/min; Estimated Glomerular Filt Rate 55; Glucose 178 mg/dL (65-110); NT Pro B Type Natriuretic Pept 276 pg/mL (19.9-100); Potassium 4.5 mmol/L (3.4-5.0); Sodium 139 mmol/L (137-145)
[2024-10-16 08:33] LABS: Troponin I < 0.012 ng/mL (0.000-0.034)
[2024-10-16] MEDS: cloNIDine HCL 0.2 MG TABLET PO (09:25)
[2024-10-16 10:40] LABS: Add Urine Microscopic? NO; Appearance Urine Clear (Clear); Bilirubin Urine Negative (Negative); Blood Urine Negative (Negative); Color Urine Yellow (Yellow); Glucose Urine UA 3+ mg/dL (Negative); Ketones Urine Negative (Negative); Leukocyte Esterase Ur Negative LEU/UL (Negative); Nitrate Urine Negative (Negative); Protein Urine Negative (Negative); Specific Grav Ur 1.013 (1.001-1.035); Urobilinogen Urine 0.2 mg/dL (<2.0)
[2024-10-16 11:05] LABS: Reflex Lactic Acid Yes or No Add Lactic
[2024-10-16] MEDS: hydrALAZINE HCL 20 MG/ML VIAL 10 MG IV PUSH (11:30)
--- NOTE | 2024-10-16 12:21 | PM.IMHP ---
H&P: HPI History of Present Illness Date/Time: 10/16/24 12:21 Chief Complaint: Weakness, Abdominal Pain Narrative: 74 y/o F presents here with weakness, dizziness, and abdominal pain with PMH of CVA (residual balance difficulties), diabetes, hypertension, anxiety, NSTEMI, and osteoarthritis. The patient presents here from home for further evaluation of weakness, dizziness, and abdominal pain. HPI provided by patient, patient however is currently a poor historian. She reports onset of dizziness and generalized weakness yesterday (10/15) afternoon, patient cannot report a time or if it was before/after dinner. She describes the dizziness as feeling off balance vs she is spinning/room spinning. The patient is unable to report if there are any alleviating/aggravating factors. She describes the weakness as intermittent. Unable to expand further, did report pain in buttocks. She reports she has not taken her home medications for the past couple days, may be longer. States she just forgot, not able to provide a specific reason. She denies abdominal pain, does report back pain. She describes the back pain as lower, unable to elaborate further. Unknown LBM. Per her PCP notes, she has had a chronic pressure ulcer to her left heel since January of 2024. Most recent visit on 10/09/2024 the wound did not show any signs of infection and she is currently in a Unna Boot to her LLE and has been instructed to keep pressure off wound. She currently denies any changes or new pain to this area. She also denies fever, chills, body aches. Currently lives at home alone. Initial VS at presentation: 98.7, HR 76, RR 15, 182/123, and 100% on RA. ED workup showed: WBC 14.1, no anemia, glucose 178, creatinine 0.99 and GFR 55, lactic 3.5, initial troponin negative, BNP 276, and UA showed 3+ glucose. CXR showed stable chronic interstitial lung disease. CT of the abdomen/pelvis showed cholelithiasis without evidence of acute cholecystitis and mild chronic interstitial lung disease in a pattern of unusual interstitial pneumonia (UIP). Head CT showed unchanged small old infarcts in the bilateral frontal lobes and left occipital lobe, no acute intracranial process, and age-related changes including mild diffuse volume loss and mild scattered white matter hypoattenuation. Review of Systems Review of Systems: All systems reviewed & are unremarkable except as noted in HPI and below PMFSH Past Medical History Medical History (Updated 10/16/24 @ 16:01 by Lauren Patel APRN) Eczema Osteoarthritis Venous insufficiency (chronic) (peripheral) DM2 (diabetes mellitus, type 2) Non-ST elevated myocardial infarction (non-STEMI) Osteoarthritis of hands, bilateral Bilateral primary osteoarthritis of knee Essential (primary) hypertension Fibromyalgia Generalized anxiety disorder Arthralgia of multiple joints Surgical History Surgical History History of tubal ligation (~1989) Family History Family History Grandparent Acute myocardial infarction Cerebrovascular accident Heart disease Mother Colon polyp Diabetes mellitus Pancreatic adenocarcinoma Other Depression Hypertension Neuralgia of both lower extremities Social History Social History Social History: Surrogate medical decision maker: Shravan Misandrea, spouse. Code status: Full code. Smoking status: Former smoker Second hand tobacco smoke exposure: No Additional smoking assessment comments: current every day marijuana pipe smoker Alcohol intake: never Substance use: current Substance use type: marijuana Lack of Transportation: No Lack of Food: Never True Current Housing: I Have Housing Concerned About Future Housing: No Difficulty Paying Gas/Electric Bills: No Difficulty Paying for Meds: No Currently Unemployed: YES Education: High School Diploma/GED Difficulty w/ Childcare or Family Care: No Living arrangements: with family Occupation/Education: retired Spiritual care concerns: No Agree to blood products: Yes Meds Home Medications and Allergies Home Medications ?Medication ?Instructions ?Recorded ?Confirmed ?Type lancet with blood glucose test #300 ea 01/29/23 10/16/24 Rx strips and pen needles combo pack blood sugar diagnostic (OneTouch #300 ea 05/20/23 10/16/24 Rx Verio test strips) flash glucose scanning reader #1 ea 05/20/23 10/16/24 Rx (FreeStyle Yulia 2 [place]) canagliflozin 300 mg tablet 300 mg PO DAILY #90 tabs 12/16/23 10/16/24 Rx (Invokana) baclofen 10 mg tablet 10 mg PO TID PRN muscle spasm #90 03/23/24 10/16/24 Rx tabs furosemide 40 mg tablet 40 mg PO DAILY #30 tabs 04/20/24 10/16/24 Rx flash glucose sensor (FreeStyle #2 ea 04/22/24 10/16/24 Rx Yulia 2 Sensor kit) duloxetine 60 mg capsule,delayed See Rx Instructions .Route 04/26/24 10/16/24 Rx release .COMPLEX #90 ea pantoprazole 40 mg tablet,delayed 40 mg PO DAILY #60 tabs 05/21/24 10/16/24 Rx release glimepiride 4 mg tablet 4 mg PO QAM #90 tabs 06/16/24 10/16/24 Rx gabapentin 300 mg capsule 300 mg PO BID #60 caps 06/23/24 10/16/24 Rx metoprolol tartrate 100 mg tablet See Rx Instructions .Route 07/12/24 10/16/24 Rx .COMPLEX #180 tabs atorvastatin 20 mg tablet See Rx Instructions .Route 07/24/24 10/16/24 Rx .COMPLEX #90 tabs hydrocodone 5 mg-acetaminophen 325 1 tablet PO Q6H PRN pain #120 tabs 08/24/24 10/16/24 Rx mg tablet metformin 500 mg tablet,extended See Rx Instructions .Route 09/27/24 10/16/24 Rx release 24 hr .COMPLEX #180 tabs clonidine HCl 0.3 mg tablet See Rx Instructions .Route 10/12/24 10/16/24 Rx .COMPLEX #60 tabs Allergies Allergy/AdvReac Type Severity Reaction Status Date / Time amoxicillin (From Augmentin) Allergy Unknown Verified 10/09/24 11:47 clavulanic acid (From Allergy Unknown Verified 10/09/24 11:47 Augmentin) Vital Signs Vital Signs - 24 hr 10/16/24 06:55 10/16/24 07:07 10/16/24 07:31 Temperature 98.7 F Pulse Rate 76 74 63 Respiratory Rate 15 12 Blood Pressure 182/123 H 212/98 H Pulse Oximetry 100 98 10/16/24 08:52 10/16/24 11:52 Temperature Pulse Rate 74 76 Respiratory Rate 17 12 Blood Pressure 176/93 H 177/76 H Pulse Oximetry 99 99 Exam Const: General: comfortable and no acute distress Other: , elderly, female, modestly ill-appearing HENMT: Face/Nose/Sinus: Normal nares present Mouth: Yes dry mucous membranes Other: Poor dentition Eyes: General: appearance normal, both eyes and all related structures Sclera: sclerae normal Pupils: Equal, round and reactive pupils present EOM: EOMs intact bilaterally Resp: Effort & Inspection: normal respiratory effort Auscultation: clear to auscultation bilaterally Cardio: Rate: regular rate Rhythm: regular rhythm Other: S1-S2 present without murmur, rub, ectopy GI: Other: Abdomen tender in the left upper quadrant and left lower quadrant. No distension, soft, and normoactive bowel sounds in all quadrants. Skin: General skin exam: normal color and no rashes or lesions noted Wounds: wounds noted Other: Ulceration to left heel measuring approximately 3.5 x 1.5 cm. [place] to white wound bed with purulence, white/yellow thick discharge, and small amount of eschar. Erythema, thickened skin, and significant skin flaking to bilateral calves, symmetric, and skin blanchable. no heat. Neuro: Other: +somnolent requiring multiple verbal redirections to answer questions/sustain wakefulness. A&O to self and understands she is in hospital. Provided incorrect year and place. Moving all extremities. Difficulty following commands/interacting with exam due to somnolence. Extrem: General: normal exam except as noted Other: DP 2+ bilaterally. 1+ non-pitting edema, difficult to assess due to skin thickening. Psych: Mental Status: mental status grossly normal Affect: normal affect Other: Poor insight and judgment at present, pleasant H&P: Results Labs Labs: Short CBC 10/16/24 Range/Units 08:00 WBC 14.1 H (4.5-10.0) K/mm3 Hgb 12.8 (12.0-15.0) g/dL Hct 39.9 (37.0-47.0) % Plt Count 301 (150-375) k/mm3 BMP 10/16/24 08:00 Sodium 139 Potassium 4.5 Chloride 99 Carbon Dioxide 26 BUN 21 H D Creatinine 0.99 Glucose 178 H Calcium 9.8 Cardiac Enzymes 10/16/24 Range/Units 08:00 Troponin I < 0.012 (0.000-0.034) ng/mL Liver Function 10/16/24 Range/Units 08:00 Total Bilirubin 0.6 (0.2-1.3) mg/dL AST 19 (14-36) U/L ALT 18 (6-35) U/L Alkaline Phosphatase 81 (38-126) U/L Albumin 3.9 (3.5-5.1) g/dL Urine 10/16/24 Range/Units 10:31 Urine Color Yellow (Yellow) Urine Appearance Clear (Clear) Urine pH 7.0 (5.0-9.0) Ur Specific Ferguson 1.013 (1.001-1.035) Urine Protein Negative (Negative) mg/dL Urine Glucose (UA) 3+ H (Negative) mg/dL Assessment and Plan Assessment and plan (1) Pressure ulcer, heel, left, unstageable: Code(s): L89.620 - Pressure ulcer of left heel, unstageable Status: Chronic Assessment and Plan: - follows with her PCP outpatient on a regular basis - continue Navdeep wraps bilaterally - wound RN consulted - wound culture obtained - started on cefepime, Flagyl, and vancomycin on 10/16 - Foot XR (2) Hypertension, uncontrolled: Code(s): I10 - Essential (primary) hypertension Status: Acute Assessment and Plan: initial concern dizziness/lightheadedness secondary to BP, however symptoms did not improve with reduction. - chronic, current range: 177/76 - 212/98 - current BP 177/76 - initial treatment: clonidine 0.2 mg p.o. x1, hydralazine 10 mg IV x1 - continue home medications: Clonidine 0.3 mg b.i.d. and metoprolol 100 mg b.i.d. - monitor BP (3) Light-headedness: Code(s): R42 - Dizziness and giddiness Status: Acute Assessment and Plan: Unclear last known well. Reportedly developed lightheadedness, dizziness yesterday afternoon on 10/15. Patient confused today. - head CT: 1. 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 No acute intracranial process. 2. Age-related changes including mild diffuse volume loss and mild scattered white matter hypoattenuation consistent with chronic small vessel ischemic disease. - add CTA brain/carotid, may need MRI - CXR: 1. Stable chronic interstitial lung disease. - UA: 3+ glucose - EKG, initial: Sinus bradycardia, rate 58, borderline EKG. - viral PCR ordered - somnolent on exam, hold home baclofen/gabapentin/[place] and resume when appropriate. (4) Abdominal pain: Qualifiers: Abdominal location: unspecified location Qualified Code(s): R10.9 - Unspecified abdominal pain Code(s): R10.9 - Unspecified abdominal pain Status: Acute Assessment and Plan: Denied abdominal tenderness during interview, however was able to elicit tenderness with palpation to the left upper and left lower quadrants. - CT abdomen/pelvis: 1. Cholelithiasis. No evidence of acute cholecystitis. 2. Mild chronic interstitial lung disease in a pattern of usual interstitial pneumonia (UIP). - viral PCR ordered - add lipase - antiemetics and analgesics p.r.n. (5) DM2 (diabetes mellitus, type 2): Qualifiers: Diabetes mellitus complication status: with hyperglycemia Diabetes mellitus [facility] insulin use: without rodent exterminator use Qualified Code(s): E11.65 - Type 2 diabetes mellitus with hyperglycemia Code(s): E11.9 - Type 2 diabetes mellitus without complications Status: Chronic Assessment and Plan: - hypoglycemia protocol - POC blood glucose ACHS - home medication: hold Invokana, Metformin, and Glimepiride - correct regimen ordered - moderate dose TIDWM, based off BMI - A1C 7.2 on 10/07/2023, update Plan Patient currently lives at home alone and was unable to provide when she took her medication last, concern patient is no longer safe to stay at home given current condition. Consider care coordination consultation for placement if no improvement with confusion with ABX treatment and IV fluids. Diet: heart healthy, diabetic GI Prophylaxis: not currently indicated DVT Prophylaxis: Lovenox Lines: Peripheral Code Status: full code Quality VTE Prophylaxis VTE prophylaxis: pharmacologic ordered Hospitalist [facility] Advance Care Plan I have confirmed that the patient's Advanced Care Plan is present, code status is documented, or surrogate decision maker is listed in patient medical record.: Yes Medication Reconciliation I have utilized all available resources to obtain, update and review the patients current medications (includes all prescriptions, OTC, herbals, cannabis, and nutritional supplements).: Yes
--- NOTE | 2024-10-16 12:24 | ED.GENADULT ---
HPI - General Adult General Chief complaint: Weakness Stated complaint: weakness Time Seen by Provider: 10/16/24 07:04 Source: patient Mode of arrival: EMS Limitations: no limitations History of Present Illness HPI narrative: 74-year-old with a history of hypertension, diabetes, anxiety disorder here with the complaints of feeling lightheaded for past few days. She states that she is unable to taking the medication. No history of nausea or vomiting. Complains of diffuse abdominal pain. Denies any fever or chills. Onset (ago): day(s) (2) Pain Consistency: constant Relieving factors: none Exacerbating factors: none Associated symptoms: chest pain and weakness Related Data Allergies Allergy/AdvReac Type Severity Reaction Status Date / Time amoxicillin (From Augmentin) Allergy Unknown Verified 10/09/24 11:47 clavulanic acid (From Allergy Unknown Verified 10/09/24 11:47 Augmentin) Review of Systems Review of Systems: All systems reviewed & are unremarkable except as noted in HPI and below Constitutional: Constitutional: Reports no additional constitutional complaints Eyes: Eyes: Reports no additional eye complaints ENT: Reports system reviewed and no additional complaints, except as documented Cardiovascular: Cardiovascular: Reports no additional cardiovascular complaints Respiratory: Respiratory: Reports no additional respiratory complaints Gastrointestinal: Gastrointestinal: Reports no additional gastrointestinal complaints Genitourinary: Genitourinary: Reports no additional female genitourinary complaints Musculoskeletal: Musculoskeletal: Reports no additional musculoskeletal complaints PMF Past Medical History Medical History DM2 (diabetes mellitus, type 2) Non-ST elevated myocardial infarction (non-STEMI) Osteoarthritis of hands, bilateral Bilateral primary osteoarthritis of knee Osteoarthritis Essential (primary) hypertension Fibromyalgia Generalized anxiety disorder Arthralgia of multiple joints Surgical History Surgical History History of tubal ligation (~1989) Family History Family History Grandparent Acute myocardial infarction Cerebrovascular accident Heart disease Mother Colon polyp Diabetes mellitus Pancreatic adenocarcinoma Other Depression Hypertension Neuralgia of both lower extremities Social History Social History Social History: Surrogate medical decision maker: Shravan Ramsay, spouse. Code status: Full code. Smoking status: Former smoker Second hand tobacco smoke exposure: No Additional smoking assessment comments: current every day marijuana pipe smoker Alcohol intake: never Substance use: current Substance use type: marijuana Lack of Transportation: No Lack of Food: Never True Current Housing: I Have Housing Concerned About Future Housing: No Difficulty Paying Gas/Electric Bills: No Difficulty Paying for Meds: No Currently Unemployed: YES Education: High School Diploma/GED Difficulty w/ Childcare or Family Care: No Living arrangements: with family Occupation/Education: retired Spiritual care concerns: No Agree to blood products: Yes Exam Narrative: GENERAL: Well-appearing, well-nourished, and in no acute distress. HEAD: Normocephalic, atraumatic. EYES: PERRLA and EOMI. ENT: Nares clear, no rhinorrhea or epistaxis. Mucous membranes moist. NECK: Supple. CHEST: Clear to auscultation. No respiratory distress. HEART: Regular rate and rhythm. No murmur heard. Normal peripheral pulses. ABDOMEN: Soft, nontender, nondistended, normal active bowel sounds. EXTREMITIES: Normal range of motion. No edema. SKIN: Warm, dry, no rash. NEURO: No focal deficits. Alert and oriented x3. PSYCH: Normal mood and affect. Course Course Emergency Course: Informed patient and about the lab work. She still continues to feel lightheaded. Her blood pressure is quite labile. Did give her IV hydralazine finally a pressure is now 177/75 and she is resting. I discussed with the hospitalist will accept the patient Vital Signs Vital signs: Vital Signs Temperature 37.1 C 10/16/24 06:55 Pulse Rate 76 10/16/24 06:55 Respiratory Rate 15 10/16/24 06:55 Blood Pressure 182/123 H 10/16/24 06:55 Pulse Oximetry 100 10/16/24 06:55 Temperature 37.1 C 10/16/24 06:55 Pulse Rate 76 10/16/24 11:52 Respiratory Rate 12 10/16/24 11:52 Blood Pressure 177/76 H 10/16/24 11:52 Pulse Oximetry 99 10/16/24 11:52 Medical Decision Making Vital Signs Vital Signs: Vital Signs Temperature 37.1 C 10/16/24 06:55 Pulse Rate 76 10/16/24 06:55 Respiratory Rate 15 10/16/24 06:55 Blood Pressure 182/123 H 10/16/24 06:55 Pulse Oximetry 100 10/16/24 06:55 Temperature 37.1 C 10/16/24 06:55 Pulse Rate 76 10/16/24 11:52 Respiratory Rate 12 10/16/24 11:52 Blood Pressure 177/76 H 10/16/24 11:52 Pulse Oximetry 99 10/16/24 11:52 Lab Data Lab results reviewed: Yes I reviewed the patient's lab results. 10/16/24 08:00 10/16/24 08:00 Labs: Lab Results 10/16/24 10/16/24 Range/Units 08:00 10:31 WBC 14.1 H (4.5-10.0) K/mm3 RBC 4.56 (4.2-5.4) M/mm3 Hgb 12.8 (12.0-15.0) g/dL Hct 39.9 (37.0-47.0) % MCV 87.5 (80-100) fl MCH 28.1 (26-34) pg MCHC 32.1 (32-36) g/dl RDW 13.0 (11.5-14.5) % Plt Count 301 (150-375) k/mm3 MPV 10.0 (7.4-10.4) fl Immature Gran % (Auto) 0.4 (0-0.5) % Neut % (Auto) 78.4 H (45.5-73.1) % Lymph % (Auto) 13.4 L (18.3-44.2) % [place] % (Auto) 6.0 (2.6-8.5) % Eos % (Auto) 1.2 (0-4.4) % Baso % (Auto) 0.6 (0.2-1.2) % Lymph # (Auto) 1.88 (0.9-3.2) K/mm3 [place] # (Auto) 0.9 H (0.1-0.6) K/mm3 Eos # (Auto) 0.2 (0-0.3) K/mm3 Baso # (Auto) 0.1 (0.0-0.1) K/mm3 Abs Immat Gran (auto) 0.06 H (0.00-0.031) K/mm3 Absolute Neuts (auto) 11.0 H (1.3-6.7) K/mm3 Absolute Nucleated RBC 0.000 (0.0-0.012) K/mm3 Nucleated RBC % 0.0 (0.0-0.2) % PT 13.5 (11.1-14.7) Seconds INR 1.0 Sodium 139 (137-145) mmol/L Potassium 4.5 (3.4-5.0) mmol/L Chloride 99 (98-107) mmol/L Carbon Dioxide 26 (22-30) mmol/L Anion Gap 14 H (4-12) mmol/L BUN 21 H D (7-17) mg/dL Creatinine 0.99 (0.7-1.0) mg/dL Estim Creat Clear Calc 46 ml/min Estimated GFR 55 L (59 - ) Glucose 178 H (65-110) mg/dL Lactic Acid 3.5 H (0.7-2.0) mmol/L Calcium 9.8 (8.4-10.2) mg/dL Total Bilirubin 0.6 (0.2-1.3) mg/dL AST 19 (14-36) U/L ALT 18 (6-35) U/L Alkaline Phosphatase 81 (38-126) U/L Troponin I < 0.012 (0.000-0.034) ng/mL NT-Pro-B Natriuret Pep 276 H (19.9-100) pg/mL Total Protein 8.0 (6.3-8.2) g/dL Albumin 3.9 (3.5-5.1) g/dL Urine Color Yellow (Yellow) Urine Appearance Clear (Clear) Urine pH 7.0 (5.0-9.0) Ur Specific [place] 1.013 (1.001-1.035) Urine Protein Negative (Negative) mg/dL Urine Glucose (UA) 3+ H (Negative) mg/dL Urine Ketones Negative (Negative) mg/dL Ur Blood (Man) Negative (Negative) Urine Nitrate Negative (Negative) Urine Bilirubin Negative (Negative) Urine Urobilinogen 0.2 (<2.0) mg/dL Leukocyte Esterase Rfl Negative (Negative) MI/UL Imaging Data Radiologist's impression: ITS Impressions Chest X-Ray 10/16/24 08:16 IMPRESSION: 1. Stable chronic interstitial lung disease. Abdomen/Pelvis CT 10/16/24 09:11 IMPRESSION: 1. Cholelithiasis. No evidence of acute cholecystitis. 2. Mild chronic interstitial lung disease in a pattern of usual interstitial pneumonia (UIP). Head CT 10/16/24 11:04 IMPRESSION: 1. 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 No acute intracranial process. 2. Age-related changes including mild diffuse volume loss and mild scattered white matter hypoattenuation consistent with chronic small vessel ischemic disease. ECG Data EKG #1: ECG completion date: 10/16/24 ECG completion time: 07:55 EKG Interpretation: bradycardia (58), no ectopy, no ST changes, normal QRS, normal QT and no acute changes Discharge Plan Discharge Clinical Impression: Hypertension, uncontrolled, Light-headedness Patient Disposition: Still a Patient Condition: Stable Patient Language: Greenlandic Prescriptions: No Action (DME) FreeStyle Yulia 2 [place] Misc See Rx Instructions .Route Qty: 1 0RF Rx Instructions: As directed gabapentin 300 mg capsule 300 mg PO BID Qty: 60 5RF hydrocodone-acetaminophen 5-325 mg tablet 1 tablet PO Q6H PRN (Reason: pain) Qty: 120 0RF (DME) lancet-gluc test strip-needles Combo Pack See Rx Instructions .Route Qty: 300 0RF Rx Instructions: As directed (DME) OneTouch Verio test strips Strip See Rx Instructions .Route Qty: 300 0RF Rx Instructions: use 1 tid to check blood sugar Invokana 300 mg tablet 300 mg PO DAILY Qty: 90 3RF baclofen 10 mg tablet 10 mg PO TID PRN (Reason: muscle spasm) Qty: 90 3RF furosemide 40 mg tablet 40 mg PO DAILY Qty: 30 5RF (DME) FreeStyle Yulia 2 Sensor Kit See Rx Instructions .Route Qty: 2 12RF Rx Instructions: As directed duloxetine 60 mg capsule,delayed release(DR/EC) See Rx Instructions .ROUTE .COMPLEX Qty: 90 2RF Dose Instruction: Take 1 capsule by mouth once daily Rx Instructions: Take 1 capsule by mouth once daily pantoprazole 40 mg tablet,delayed release (DR/EC) 40 mg PO DAILY Qty: 60 5RF glimepiride 4 mg tablet 4 mg PO QAM Qty: 90 1RF Rx Instructions: administer with breakfast metoprolol tartrate 100 mg tablet See Rx Instructions .ROUTE .COMPLEX Qty: 180 2RF Dose Instruction: Take 1 tablet by mouth twice daily Rx Instructions: Take 1 tablet by mouth twice daily atorvastatin 20 mg tablet See Rx Instructions .ROUTE .COMPLEX Qty: 90 2RF Dose Instruction: Take 1 tablet by mouth once daily Rx Instructions: Take 1 tablet by mouth once daily metformin 500 mg tablet extended release 24 hr See Rx Instructions .ROUTE .COMPLEX Qty: 180 1RF Dose Instruction: Take 2 tablets by mouth twice daily Rx Instructions: Take 2 tablets by mouth twice daily clonidine HCl 0.3 mg tablet See Rx Instructions .ROUTE .COMPLEX Qty: 60 2RF Dose Instruction: Take 1 tablet by mouth twice daily Rx Instructions: Take 1 tablet by mouth twice daily Follow-up/Referrals: Mateo Alfaro MD [Primary Care Provider] - Time of Disposition: 12:30
[2024-10-16 13:11] LABS: Influenza A QL RT-PCR Negative (Negative); Influenza B QL RT-PCR Negative (Negative); RSV RNA, RT-PCR Negative (Negative); SARS-CoV-2 RNA PCR Negative (Negative)
[2024-10-16 13:25] LABS: Lactic Acid 2.6 mmol/L (0.7-2.0)
[2024-10-16] MEDS: SODIUM CHLORIDE 0.9% IV 1,000 ML 125 ML IV CONT (15:51)
[2024-10-16] MEDS: VANCOMYCIN 2,000 MG/NS 500 ML 2,000 MG/500 ML BAG 250 MG IVPB (16:56)
--- OUTSIDE RECORDS SUMMARY | 2024-10-16 18:10 | XMS_ITS | Clinical Summary ---
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 MANAGER Plan of Treatment Upcoming Encounters Date Type Department Care Team (Late st Contact Info) Description 04/12/2025 10:15 AM CDT Office Visit [facility] ([facility]) Oncology and Hematology [facility] [address] [facility] [address] [place] [address] Emerson Souza MD [address] [facility] [address] [place] [address] Health Maintenance Due Date Last [...] [place] PART A AND B eMinor/Rayspan PPO [place] Care Teams Pellet Mill Operator Relationship Specialty Start Date End Date Mateo Alfaro MD [address] [id number] PCP - General Family Practice 08/15/23
[2024-10-16] MEDS: ACETAMINOPHEN 325 MG TABLET 650 MG PO (18:12)
[2024-10-16 18:13] LABS: Glucose Point of Care 144 mg/dl (65-105)
--- NOTE | 2024-10-16 18:58 | ADMGEN ---
This patient, Aggie Donald, was admitted to 3 Med Surg Room 316-02. Patient/family oriented to hospital policies and general routines including ID bracelet, bed and alarms, visiting hours, pain management, procedures, bathroom and other care routines, personal items, smoking policy, room service/diet, and visiting hours. Information on how to activate the Rapid Response Team has been discussed. Patient/Family are encouraged to report perceived risks to care and to ask questions if they do not understand what they are told or what they should do.
[2024-10-16 19:28] LABS: Lipase 31 U/L (23-300)
[2024-10-16 19:40] LABS: Troponin I < 0.012 ng/mL (0.000-0.034)
[2024-10-16] MEDS: hydrALAZINE 12.5 MG TABLET PO (20:59)
[2024-10-16] MEDS: cloNIDine HCL 0.1 MG TABLET 0.3 MG PO (21:00)
[2024-10-16] MEDS: METOPROLOL TARTRATE 50 MG TAB 100 MG PO (21:00)
[2024-10-16] MEDS: CEFEPIME 1 GM/NS 50 ML 1 GM/50 ML BAG IVPB (21:01)
[2024-10-16] MEDS: KETOROLAC 30 MG/ML VIAL (*BKC) IV PUSH (22:08)
[2024-10-16] MEDS: metroNIDAZOLE 500 MG/ISO 100ML 500 MG/100 ML BAG 100 MG IVPB (22:11)
[2024-10-16 23:09] LABS: Glucose Point of Care 140 mg/dl (65-105)
[2024-10-17] VITALS (11 sets, daily range): BP systolic 145–176; BP diastolic 67–77; PULSE 63–93; RESP 16–18; TEMP 36.4–36.8; O2SAT 96–100
[2024-10-17] MEDS: SODIUM CHLORIDE 0.9% IV 1,000 ML 125 ML IV CONT ×2 (03:03→21:35)
[2024-10-17] MEDS: metroNIDAZOLE 500 MG/ISO 100ML 500 MG/100 ML BAG 100 MG IVPB ×3 (05:07→23:02)
[2024-10-17 07:35] LABS: Basophils Absolute Auto 0.1 K/mm3 (0.0-0.1); Basophils Percent Auto 0.6 % (0.2-1.2); Eosinophils Absolute Auto 0.4 K/mm3 (0-0.3); Eosinophils Percent Auto 2.3 % (0-4.4); Hematocrit 36.2 % (37.0-47.0); Hemoglobin 11.7 g/dL (12.0-15.0); Immature Granulocyte Absolute 0.06 K/mm3 (0.00-0.031); Immature Granulocyte Percent A 0.4 % (0-0.5); Lymphocytes Absolute Auto 3.37 K/mm3 (0.9-3.2); Lymphocytes Percent Auto 20.9 % (18.3-44.2); Mean Corpuscular HGB Conc 32.3 g/dl (32-36); Mean Corpuscular Hemoglobin 27.8 pg (26-34); Mean Platelet Volume 9.9 fl (7.4-10.4); Monocytes Absolute Auto 1.4 K/mm3 (0.1-0.6); Monocytes Percent Auto 8.4 % (2.6-8.5); Neutrophils Absolute Auto 10.9 K/mm3 (1.3-6.7); Neutrophils Percent Auto 67.4 % (45.5-73.1); Platelet Count Result 314 k/mm3 (150-375); Red Blood Count 4.21 M/mm3 (4.2-5.4); Red Cell Distribution Width 13.2 % (11.5-14.5); White Blood Count 16.1 K/mm3 (4.5-10.0)
[2024-10-17 07:59] LABS: Anion Gap 10 mmol/L (4-12); Blood Urea Nitrogen 18 mg/dL (7-17); Calcium 8.6 mg/dL (8.4-10.2); Carbon Dioxide 24 mmol/L (22-30); Chloride 105 mmol/L (98-107); Estimated CRCL calculation 52 ml/min; Estimated Glomerular Filt Rate > 60; Glucose 128 mg/dL (65-110); Potassium 3.6 mmol/L (3.4-5.0); Sodium 139 mmol/L (137-145)
[2024-10-17 09:02] LABS: Glucose Point of Care 154 mg/dl (65-105)
[2024-10-17] MEDS: METOPROLOL TARTRATE 50 MG TAB 100 MG PO ×2 (09:38→21:25)
[2024-10-17] MEDS: FUROSEMIDE 40 MG TABLET PO (09:39)
[2024-10-17] MEDS: DULoxetine HCL 60 MG CAPSULE.DR PO (09:39)
[2024-10-17] MEDS: PANTOPRAZOLE 40 MG TABLET PO (09:39)
[2024-10-17] MEDS: ATORVASTATIN 20 MG TABLET PO (09:39)
[2024-10-17] MEDS: cloNIDine HCL 0.1 MG TABLET 0.3 MG PO ×2 (09:39→21:26)
[2024-10-17] MEDS: ENOXAPARIN 40 MG/0.4 ML SYRINGE SUB-Q (09:40)
[2024-10-17] MEDS: hydrALAZINE 12.5 MG TABLET PO ×4 (09:40→21:26)
[2024-10-17 10:53] LABS: Free T4 Free Thyroxine Reflex 1.29 ng/dL (0.78-2.19)
[2024-10-17 11:29] LABS: Ammonia < 9 umol/L (9-30)
[2024-10-17 12:12] LABS: Total Triiodothyronine (T3) 1.24 NG/ML (0.97-1.69)
[2024-10-17] MEDS: CEFEPIME 1 GM/NS 50 ML 1 GM/50 ML BAG IVPB ×2 (12:42→21:26)
[2024-10-17 12:45] LABS: Glucose Point of Care 154 mg/dl (65-105)
--- NOTE | 2024-10-17 14:20 | PM.IMPN ---
Progress Note: A&P Assessment and Plan (1) Pressure ulcer, heel, left, unstageable: Code(s): L89.620 - Pressure ulcer of left heel, unstageable Status: Chronic Assessment and Plan: - follows with her PCP outpatient on a regular basis - continue Navdeep wraps bilaterally - wound RN consulted - wound culture obtained - started on cefepime, Flagyl, and vancomycin on 10/16 - Foot XR (2) Hypertension, uncontrolled: Code(s): I10 - Essential (primary) hypertension Status: Acute Assessment and Plan: initial concern dizziness/lightheadedness secondary to BP, however symptoms did not improve with reduction. - chronic, current range: 177/76 - 212/98 - current BP 177/76 - initial treatment: clonidine 0.2 mg p.o. x1, hydralazine 10 mg IV x1 - continue home medications: Clonidine 0.3 mg b.i.d. and metoprolol 100 mg b.i.d. - monitor BP (3) Light-headedness: Code(s): R42 - Dizziness and giddiness Status: Acute Assessment and Plan: Unclear last known well. Reportedly developed lightheadedness, dizziness yesterday afternoon on 10/15. Patient confused today. - head CT: 1. 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 No acute intracranial process. 2. Age-related changes including mild diffuse volume loss and mild scattered white matter hypoattenuation consistent with chronic small vessel ischemic disease. - add CTA brain/carotid, may need MRI - CXR: 1. Stable chronic interstitial lung disease. - UA: 3+ glucose - EKG, initial: Sinus bradycardia, rate 58, borderline EKG. - viral PCR ordered - somnolent on exam, hold home baclofen/gabapentin/[place] and resume when appropriate. (4) Abdominal pain: Qualifiers: Abdominal location: unspecified location Qualified Code(s): R10.9 - Unspecified abdominal pain Code(s): R10.9 - Unspecified abdominal pain Status: Acute Assessment and Plan: Denied abdominal tenderness during interview, however was able to elicit tenderness with palpation to the left upper and left lower quadrants. - CT abdomen/pelvis: 1. Cholelithiasis. No evidence of acute cholecystitis. 2. Mild chronic interstitial lung disease in a pattern of usual interstitial pneumonia (UIP). - viral PCR ordered - add lipase - antiemetics and analgesics p.r.n. (5) DM2 (diabetes mellitus, type 2): Qualifiers: Diabetes mellitus complication status: with hyperglycemia Diabetes mellitus nursing home insulin use: without nursing home use Qualified Code(s): E11.65 - Type 2 diabetes mellitus with hyperglycemia Code(s): E11.9 - Type 2 diabetes mellitus without complications Status: Chronic Assessment and Plan: - hypoglycemia protocol - POC blood glucose ACHS - home medication: hold Invokana, Metformin, and Glimepiride - correct regimen ordered - moderate dose TIDWM, based off BMI - A1C 7.2 on 10/07/2023, update Plan Patient currently lives at home alone and was unable to provide when she took her medication last, concern patient is no longer safe to stay at home given current condition. Consider care coordination consultation for placement if no improvement with confusion with ABX treatment and IV fluids. Diet: heart healthy, diabetic GI Prophylaxis: not currently indicated DVT Prophylaxis: Lovenox Lines: Peripheral Code Status: full code Subjective Date/time seen: 10/17/24 14:20 Interval history: Performed MRI which shows no acute intracranial process other than chronic small infarct at bilateral frontal lobes and left occipital lobe. TSH, ammonia, vitamin B12 levels are normal. Ordered a nasal MRSA. Patient reports before her stroke she was completely doing fine. Currently she uses wheelchair at home. She was not able to recollect the events. Will discuss with her tomorrow. Review of Systems Review of Systems: All systems reviewed & are unremarkable except as noted in HPI and below Exam Narrative: +somnolent requiring multiple verbal redirections to answer questions/sustain wakefulness. 3.5 x 1.5 cm pressure wound to left heel with eschar and yellow/white purulent drainage. Erythema/skin flaking/thickened skin to bilateral calves. -heat. DP 2+ bilaterally. Const: General: comfortable and no acute distress Other: , elderly, female, modestly ill-appearing HENMT: Face/Nose/Sinus: Normal nares present Mouth: Yes dry mucous membranes Other: Poor dentition Eyes: General: appearance normal, both eyes and all related structures Sclera: sclerae normal Pupils: Equal, round and reactive pupils present EOM: EOMs intact bilaterally Resp: Effort & Inspection: normal respiratory effort Auscultation: clear to auscultation bilaterally Cardio: Rate: regular rate Rhythm: regular rhythm Other: S1-S2 present without murmur, rub, ectopy GI: Other: Abdomen tender in the left upper quadrant and left lower quadrant. No distension, soft, and normoactive bowel sounds in all quadrants. Skin: General skin exam: normal color, no rashes or lesions noted and wounds noted Wounds: wounds noted Other: Ulceration to left heel measuring approximately 3.5 x 1.5 cm. [place] to white wound bed with purulence, white/yellow thick discharge, and small amount of eschar. Erythema, thickened skin, and significant skin flaking to bilateral calves, symmetric, and skin blanchable. no heat. Neuro: Cranial nerves: Yes Equal, round and reactive pupils present Other: +somnolent requiring multiple verbal redirections to answer questions/sustain wakefulness. A&O to self and understands she is in hospital. Provided incorrect year and place. Moving all extremities. Difficulty following commands/interacting with exam due to somnolence. Extrem: General: normal exam except as noted Other: DP 2+ bilaterally. 1+ non-pitting edema, difficult to assess due to skin thickening. Psych: Mental Status: mental status grossly normal Affect: normal affect Other: Poor insight and judgment at present, pleasant Objective Data Vital Signs Vital Signs: Vital Signs - 24 hr 10/16/24 15:52 10/16/24 17:13 10/16/24 18:03 Temperature Pulse Rate 86 84 89 Respiratory Rate 12 18 12 Blood Pressure 170/72 H 175/97 H 206/92 H Pulse Oximetry 98 100 98 Oxygen Delivery 10/16/24 18:25 10/16/24 18:43 10/16/24 20:00 Temperature Pulse Rate 90 Respiratory Rate 14 Blood Pressure 199/109 H 196/108 H Pulse Oximetry 98 Oxygen Delivery Room Air 10/16/24 20:00 10/16/24 20:54 10/16/24 21:00 Temperature 98.2 F Pulse Rate 88 76 82 Respiratory Rate 16 Blood Pressure 189/72 H Pulse Oximetry 98 Oxygen Delivery 10/17/24 00:00 10/17/24 01:01 10/17/24 04:00 Temperature 97.7 F Pulse Rate 71 93 65 Respiratory Rate 16 Blood Pressure 151/75 H Pulse Oximetry 96 Oxygen Delivery 10/17/24 04:36 10/17/24 09:35 10/17/24 09:38 Temperature 97.6 F Pulse Rate 73 75 Respiratory Rate 16 Blood Pressure 160/69 H Pulse Oximetry 98 Oxygen Delivery Room Air Intake/Output Intake/Output: Intake & Output 10/14/24 10/15/24 10/16/24 10/17/24 23:59 23:59 23:59 23:59 Intake Total 2150 1070 Output Total 1000 Balance 1150 1070 Meds/Results Medications: Active Medications Generic Name Dose Route Start Last Admin Trade Name Freq PRN Reason Stop Dose Admin Acetaminophen 650 mg 10/16/24 12:34 10/16/24 18:12 Acetaminophen 325 Mg Tablet PO 650 mg Q4H PRN Administration Mild Pain (1-3) or Fever Atorvastatin Calcium 20 mg 10/17/24 09:00 10/17/24 09:39 Atorvastatin 20 Mg Tablet PO 20 mg DAILY USAMA Administration Clonidine HCl 0.3 mg 10/16/24 21:00 10/17/24 09:39 Clonidine Hcl 0.1 Mg Tablet PO 0.3 mg Q12HR USAMA Administration Dextrose 12.5 gm 10/16/24 12:46 Dextrose 50% 25 Gm/50 Ml Syringe IV PUSH PRN PRN Hypoglycemia Protocol Duloxetine HCl 60 mg 10/17/24 09:00 10/17/24 09:39 Duloxetine Hcl 60 Mg Capsule.Dr PO 60 mg DAILY USAMA Administration Enoxaparin Sodium 40 mg 10/17/24 09:00 10/17/24 09:40 Enoxaparin 40 Mg/0.4 Ml Syringe SUB-Q 40 mg DAILY USAMA Administration Furosemide 40 mg 10/17/24 09:00 10/17/24 09:39 Furosemide 40 Mg Tablet PO 40 mg DAILY USAMA Administration Glucagon 1 mg 10/16/24 12:46 Glucagon For Inj 1 Mg Vial IM PRN PRN Hypoglycemia Protocol Glucose 15 gm 10/16/24 12:46 Glucose Oral Gel 15 Gm Of Glucse In 37.5 Gm Tube PO PRN PRN Hypoglycemia Protocol Hydralazine HCl 12.5 mg 10/16/24 21:00 10/17/24 09:40 Hydralazine 12.5 Mg Tablet PO 12.5 mg QID USAMA Administration Sodium Chloride 1,000 mls @ 125 mls/hr 10/16/24 12:35 10/17/24 10:10 Normal Saline Iv IV CONT 125 mls/hr .Q8H USAMA Infusion Dextrose 1,000 mls @ 100 mls/hr 10/16/24 12:46 Dextrose 5% 1,000 Ml IVPB PRN PRN Hypoglycemia Protocol Vancomycin HCl 1,500 mg in 500 mls @ 250 mls/hr 10/17/24 17:00 Vancomycin 1,500 Mg/Ns 500 Ml IVPB Q24H [facility]AMA Cefepime HCl 1 gm in 50 mls @ 100 mls/hr 10/16/24 21:00 10/17/24 13:12 Maxipime 1 Gm/Ns 50 Ml IVPB Infused Q12H USAMA Infusion Metronidazole 500 mg in 100 mls @ 100 mls/hr 10/16/24 22:00 10/17/24 05:07 Flagyl 500 Mg/Iso Soln 100 Ml IVPB 100 mls/hr Q8H USAMA Administration Insulin Aspart 3 - 6 units 10/16/24 17:00 10/17/24 13:07 Insulin Aspart (*Bkc) 100 Units/Ml SUB-Q Not Given TIDWM [facility] Protocol Metoprolol Tartrate 100 mg 10/16/24 21:00 10/17/24 09:38 Metoprolol Tartrate 50 Mg Tab PO 100 mg Q12HR [facility]AMA Administration Ondansetron HCl 4 mg 10/16/24 12:34 Ondansetron Inj 4 Mg/2 Ml Vial IV PUSH Q4H PRN Nausea Pantoprazole Sodium 40 mg 10/17/24 09:00 10/17/24 09:39 Pantoprazole 40 Mg Tablet PO 40 mg DAILY USAMA Administration Radiology Results: ITS Impressions Chest X-Ray 10/16/24 08:16 IMPRESSION: 1. Stable chronic interstitial lung disease. Abdomen/Pelvis CT 10/16/24 09:11 IMPRESSION: 1. Cholelithiasis. No evidence of acute cholecystitis. 2. Mild chronic interstitial lung disease in a pattern of usual interstitial pneumonia (UIP). Head CT 10/16/24 11:04 IMPRESSION: 1. 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 No acute intracranial process. 2. Age-related changes including mild diffuse volume loss and mild scattered white matter hypoattenuation consistent with chronic small vessel ischemic disease. Foot X-Ray 10/16/24 16:24 IMPRESSION: Soft tissue defect along the plantar surface of the hindfoot without adjacent bony abnormality. Brain MRI 10/17/24 13:30 IMPRESSION: 1. No acute intracranial process. 2. 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 Labs Labs: Laboratory Results - last 24 hr 10/16/24 10/16/24 10/16/24 18:10 18:58 20:49 WBC RBC Hgb Hct MCV MCH MCHC RDW Plt Count MPV Immature Gran % (Auto) Neut % (Auto) Lymph % (Auto) [place] % (Auto) Eos % (Auto) Baso % (Auto) Lymph # (Auto) [place] # (Auto) Eos # (Auto) Baso # (Auto) Abs Immat Gran (auto) Absolute Neuts (auto) Absolute Nucleated RBC Nucleated RBC % Sodium Potassium Chloride Carbon Dioxide Anion Gap BUN Creatinine Estim Creat Clear Calc Estimated GFR Glucose POC Capillary Glucose 144 H 140 H Calcium Ammonia Troponin I < 0.012 Lipase 31 Vitamin B12 TSH (Reflex) Free T4 Total T3 10/17/24 10/17/24 10/17/24 06:57 06:58 08:59 WBC 16.1 H RBC 4.21 Hgb 11.7 L Hct 36.2 L MCV 86.0 MCH 27.8 MCHC 32.3 RDW 13.2 Plt Count 314 MPV 9.9 Immature Gran % (Auto) 0.4 Neut % (Auto) 67.4 Lymph % (Auto) 20.9 [place] % (Auto) 8.4 Eos % (Auto) 2.3 Baso % (Auto) 0.6 Lymph # (Auto) 3.37 H [place] # (Auto) 1.4 H Eos # (Auto) 0.4 H Baso # (Auto) 0.1 Abs Immat Gran (auto) 0.06 H Absolute Neuts (auto) 10.9 H Absolute Nucleated RBC 0.000 Nucleated RBC % 0.0 Sodium 139 Potassium 3.6 Chloride 105 Carbon Dioxide 24 Anion Gap 10 BUN 18 H Creatinine 0.86 Estim Creat Clear Calc 52 Estimated GFR > 60 Glucose 128 H POC Capillary Glucose 154 H Calcium 8.6 Ammonia Troponin I Lipase Vitamin B12 809.0 TSH (Reflex) 4.330 Free T4 1.29 Total T3 1.24 10/17/24 10/17/24 10:54 12:41 WBC RBC Hgb Hct MCV MCH MCHC RDW Plt Count MPV Immature Gran % (Auto) Neut % (Auto) Lymph % (Auto) [place] % (Auto) Eos % (Auto) Baso % (Auto) Lymph # (Auto) [place] # (Auto) Eos # (Auto) Baso # (Auto) Abs Immat Gran (auto) Absolute Neuts (auto) Absolute Nucleated RBC Nucleated RBC % Sodium Potassium Chloride Carbon Dioxide Anion Gap BUN Creatinine Estim Creat Clear Calc Estimated GFR Glucose POC Capillary Glucose 154 H Calcium Ammonia < 9 L Troponin I Lipase Vitamin B12 TSH (Reflex) Free T4 Total T3 Quality VTE Prophylaxis VTE prophylaxis: pharmacologic ordered Hospitalist MIPS Advance Care Plan I have confirmed that the patient's Advanced Care Plan is present, code status is documented, or surrogate decision maker is listed in patient medical record.: Yes Medication Reconciliation I have utilized all available resources to obtain, update and review the patients current medications (includes all prescriptions, OTC, herbals, cannabis, and nutritional supplements).: Yes
[2024-10-17] MEDS: VANCOMYCIN 1,500 MG/NS 500 ML 1,500 MG/500 ML BAG 250 MG IVPB (16:53)
[2024-10-17 17:13] LABS: Glucose Point of Care 154 mg/dl (65-105)
[2024-10-17] MEDS: HYDROcodone/acetaminophen (*CRX) 5-325 MG TABLET 1 TAB PO ×2 (18:40→23:02)
[2024-10-17 21:12] LABS: Glucose Point of Care 122 mg/dl (65-105)
[2024-10-17 21:20] LABS: MRSA (PCR) NOT DETECTED (NOT DETECTE)
[2024-10-18] VITALS (15 sets, daily range): BP systolic 117–203; BP diastolic 54–100; PULSE 65–99; RESP 16–18; TEMP 36.2–36.6; O2SAT 98–100
[2024-10-18] MEDS: HYDROcodone/acetaminophen (*CRX) 5-325 MG TABLET 1 TAB PO ×4 (02:58→20:16)
[2024-10-18] MEDS: metroNIDAZOLE 500 MG/ISO 100ML 500 MG/100 ML BAG 100 MG IVPB ×3 (06:00→21:20)
[2024-10-18 07:44] LABS: Hematocrit 34.1 % (37.0-47.0); Hemoglobin 11.1 g/dL (12.0-15.0); Mean Corpuscular HGB Conc 32.6 g/dl (32-36); Mean Corpuscular Hemoglobin 28.2 pg (26-34); Mean Corpuscular Volume 86.8 fl (80-100); Mean Platelet Volume 9.9 fl (7.4-10.4); Platelet Count Result 266 k/mm3 (150-375); Red Blood Count 3.93 M/mm3 (4.2-5.4); Red Cell Distribution Width 13.2 % (11.5-14.5); White Blood Count 11.8 K/mm3 (4.5-10.0)
[2024-10-18 08:01] LABS: Alanine Aminotransferase 13 U/L (6-35); Albumin Level 3.5 g/dL (3.5-5.1); Alkaline Phosphatase 65 U/L (38-126); Anion Gap 10 mmol/L (4-12); Aspartate Amino Transferase 19 U/L (14-36); Bilirubin,Total 0.6 mg/dL (0.2-1.3); Blood Urea Nitrogen 17 mg/dL (7-17); Calcium 8.4 mg/dL (8.4-10.2); Carbon Dioxide 23 mmol/L (22-30); Chloride 104 mmol/L (98-107); Estimated CRCL calculation 46 ml/min; Estimated Glomerular Filt Rate 55; Glucose 137 mg/dL (65-110); Potassium 3.3 mmol/L (3.4-5.0); Sodium 137 mmol/L (137-145)
[2024-10-18 08:24] LABS: Glucose Point of Care 146 mg/dl (65-105)
[2024-10-18] MEDS: cloNIDine HCL 0.1 MG TABLET 0.3 MG PO ×2 (08:28→20:16)
--- NOTE | 2024-10-18 08:28 | P.PNIM_ITS ---
Progress Note: A&P Assessment and Plan (1) Pressure ulcer, heel, left, unstageable: Code(s): L89.620 - Pressure ulcer of left heel, unstageable Status: Chronic Assessment and Plan: - follows with her PCP outpatient on a regular basis - continue Navdeep wraps bilaterally - wound RN consulted - wound culture obtained - started on cefepime, Flagyl, and vancomycin on 10/16 - Foot XR (2) Hypertension, uncontrolled: Code(s): I10 - Essential (primary) hypertension Status: Acute Assessment and Plan: initial concern dizziness/lightheadedness secondary to BP, however symptoms did not improve with reduction. - chronic, current range: 177/76 - 212/98 - current BP 177/76 - initial treatment: clonidine 0.2 mg p.o. x1, hydralazine 10 mg IV x1 - continue home medications: Clonidine 0.3 mg b.i.d. and metoprolol 100 mg b.i.d. - monitor BP (3) Light-headedness: Code(s): R42 - Dizziness and giddiness Status: Acute Assessment and Plan: Unclear last known well. Reportedly developed lightheadedness, dizziness yesterday afternoon on 10/15. Patient confused today. - head CT: 1. 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 No acute intracranial process. 2. Age-related changes including mild diffuse volume loss and mild scattered white matter hypoattenuation consistent with chronic small vessel ischemic disease. - add CTA brain/carotid, may need MRI - CXR: 1. Stable chronic interstitial lung disease. - UA: 3+ glucose - EKG, initial: Sinus bradycardia, rate 58, borderline EKG. - viral PCR ordered - somnolent on exam, hold home baclofen/gabapentin/[place] and resume when appropriate. (4) Abdominal pain: Qualifiers: Abdominal location: unspecified location Qualified Code(s): R10.9 - Unspecified abdominal pain Code(s): R10.9 - Unspecified abdominal pain Status: Acute Assessment and Plan: Denied abdominal tenderness during interview, however was able to elicit tenderness with palpation to the left upper and left lower quadrants. - CT abdomen/pelvis: 1. Cholelithiasis. No evidence of acute cholecystitis. 2. Mild chronic interstitial lung disease in a pattern of usual interstitial pneumonia (UIP). - viral PCR ordered - add lipase - antiemetics and analgesics p.r.n. (5) DM2 (diabetes mellitus, type 2): Qualifiers: Diabetes mellitus complication status: with hyperglycemia Diabetes mellitus group home insulin use: without group home use Qualified Code(s): E11.65 - Type 2 diabetes mellitus with hyperglycemia Code(s): E11.9 - Type 2 diabetes mellitus without complications Status: Chronic Assessment and Plan: - hypoglycemia protocol - POC blood glucose ACHS - home medication: hold Invokana, Metformin, and Glimepiride - correct regimen ordered - moderate dose TIDWM, based off BMI - A1C 7.2 on 10/07/2023, update Plan Patient currently lives at home alone and was unable to provide when she took her medication last, concern patient is no longer safe to stay at home given current condition. Consider care coordination consultation for placement if no improvement with confusion with ABX treatment and IV fluids. Diet: heart healthy, diabetic GI Prophylaxis: not currently indicated DVT Prophylaxis: Lovenox Lines: Peripheral Code Status: full code Subjective Date/time seen: 10/18/24 08:28 Interval history: WBC is decreased form 16.1 to 11.8.Replaced potassium 40 meq.Order orthostatic vitals. Continue cefepime and Metronidazole Review of Systems Review of Systems: All systems reviewed & are unremarkable except as noted in HPI and below Exam Narrative: +somnolent requiring multiple verbal red irections to answer questions/sustain wakefulness. 3.5 x 1.5 cm pressure wound to left heel with eschar and yellow/white purulent drainage. Erythema/skin flaking/thickened skin to bilateral calves. -heat. DP 2+ bilaterally. Const: General: comfortable and no acute distress Other: , elderly, female, modestly ill-appearing HENMT: Face/Nose/Sinus: Normal nares present Mouth: Yes dry mucous membranes Other: Poor dentition Eyes: General: appearance normal, both eyes and all related structures Sclera: sclerae normal Pupils: Equal, round and reactive pupils present EOM: EOMs intact bilaterally Resp: Effort & Inspection: normal respiratory effort Auscultation: clear to auscultation bilaterally Cardio: Rate: regular rate Rhythm: regular rhythm Other: S1-S2 present without murmur, rub, ectopy GI: Other: Abdomen tender in the left upper quadrant and left lower quadrant. No distension, soft, and normoactive bowel sounds in all quadrants. Skin: General skin exam: normal color, no rashes or lesions noted and wounds noted Wounds: wounds noted Other: Ulceration to left heel measuring approximately 3.5 x 1.5 cm. [place] to white wound bed with purulence, white/yellow thick discharge, and small amount of eschar. Erythema, thickened skin, and significant skin flaking to bilateral calves, symmetric, and skin blanchable. no heat. Neuro: Cranial nerves: Yes Equal, round and reactive pupils present Other: +somnolent requiring multiple verbal red irections to answer questions/sustain wakefulness. A&O to self and understands she is in hospital. Provided incorrect year and place. Moving all extremities. Difficulty following commands/interacting with exam due to somnolence. Extrem: General: normal exam except as noted Other: DP 2+ bilaterally. 1+ non-pitting edema, difficult to assess due to skin thickening. Psych: Mental Status: mental status grossly normal Affect: normal affect Other: Poor insight and judgment at present, pleasant Objective Data Vital Signs Vital Signs: Vital Signs - 24 hr 10/17/24 09:35 10/17/24 09:38 10/17/24 14:00 Temperature 98.1 F Pulse Rate 75 81 Respiratory Rate 18 Blood Pressure 145/67 H Pulse Oximetry 100 Oxygen Delivery Room Air 10/17/24 16:00 10/17/24 20:00 10/17/24 20:00 Temperature Pulse Rate 74 75 Respiratory Rate Blood Pressure Pulse Oximetry Oxygen Delivery Room Air 10/17/24 21:25 10/17/24 22:00 10/18/24 00:00 Temperature 98.3 F Pulse Rate 76 77 65 Respiratory Rate 18 Blood Pressure 176/77 H Pulse Oximetry 97 Oxygen Delivery 10/18/24 04:00 10/18/24 06:00 Temperature 97.4 F L Pulse Rate 70 70 Respiratory Rate 18 Blood Pressure 162/68 H Pulse Oximetry 98 Oxygen Delivery Intake/Output Intake/Output: Intake & Output 10/15/24 10/16/24 10/17/24 10/18/24 23:59 23:59 23:59 23:59 Intake Total 2150 1670 100 Output Total 1000 1100 820 Balance 1150 570 -720 Meds/Results Medications: Active Medications Generic Name Dose Route Start Last Admin Trade Name Freq PRN Reason Stop Dose Admin Acetaminophen 650 mg 10/16/24 12:34 10/16/24 18:12 Acetaminophen 325 Mg Tablet PO 650 mg Q4H PRN Administration Mild Pain (1-3) or Fever Hydrocodone Bitart/Acetaminophen 1 tab 10/17/24 17:45 10/18/24 02:58 Hydrocodone/Acetaminophen (*Crx) 5-325 Mg Tablet PO 1 tab Q4H PRN Administration Pain Rated 4-6 Atorvastatin Calcium 20 mg 10/17/24 09:00 10/17/24 09:39 Atorvastatin 20 Mg Tablet PO 20 mg DAILY USAMA Administration Clonidine HCl 0.3 mg 10/16/24 21:00 10/17/24 21:26 Clonidine Hcl 0.1 Mg Tablet PO 0.3 mg Q12HR USAMA Administration Dextrose 12.5 gm 10/17/24 15:30 Dextrose 50% 25 Gm/50 Ml Syringe IV PUSH PRN PRN Hypoglycemia Protocol Duloxetine HCl 60 mg 10/17/24 09:00 10/17/24 09:39 Duloxetine Hcl 60 Mg Capsule.Dr PO 60 mg DAILY USAMA Administration Enoxaparin Sodium 40 mg 10/17/24 09:00 10/17/24 09:40 Enoxaparin 40 Mg/0.4 Ml Syringe SUB-Q 40 mg DAILY USAMA Administration Furosemide 40 mg 10/17/24 09:00 10/17/24 09:39 Furosemide 40 Mg Tablet PO 40 mg DAILY USAMA Administration Glucagon 1 mg 10/17/24 15:30 Glucagon For Inj 1 Mg Vial IM PRN PRN Hypoglycemia Protocol Glucose 15 gm 10/17/24 15:30 Glucose Oral Gel 15 Gm Of Glucse In 37.5 Gm Tube PO PRN PRN Hypoglycemia Protocol Hydralazine HCl 12.5 mg 10/16/24 21:00 10/17/24 21:26 Hydralazine 12.5 Mg Tablet PO 12.5 mg QID USAMA Administration Sodium Chloride 1,000 mls @ 125 mls/hr 10/16/24 12:35 10/17/24 21:35 Normal Saline Iv IV CONT 125 mls/hr .Q8H USAMA Administration Vancomycin HCl 1,500 mg in 500 mls @ 250 mls/hr 10/17/24 17:00 10/17/24 16:53 Vancomycin 1,500 Mg/Ns 500 Ml IVPB 250 mls/hr Q24H USAMA Administration Cefepime HCl 1 gm in 50 mls @ 100 mls/hr 10/16/24 21:00 10/17/24 21:26 Maxipime 1 Gm/Ns 50 Ml IVPB 100 mls/hr Q12H USAMA Administration Metronidazole 500 mg in 100 mls @ 100 mls/hr 10/16/24 22:00 10/18/24 06:00 Flagyl 500 Mg/Iso Soln 100 Ml IVPB 100 mls/hr Q8H USAMA Administration Dextrose 1,000 mls @ 100 mls/hr 10/17/24 15:30 Dextrose 5% 1,000 Ml IVPB PRN PRN Hypoglycemia Protocol Insulin Aspart 2 - 5 units 10/17/24 17:00 10/17/24 18:11 Insulin Aspart (*Bkc) 100 Units/Ml SUB-Q Not Given TIDWM USAMA Protocol Metoprolol Tartrate 100 mg 10/16/24 21:00 10/17/24 21:25 Metoprolol Tartrate 50 Mg Tab PO 100 mg Q12HR USAMA Administration Ondansetron HCl 4 mg 10/16/24 12:34 Ondansetron Inj 4 Mg/2 Ml Vial IV PUSH Q4H PRN Nausea Pantoprazole Sodium 40 mg 10/17/24 09:00 10/17/24 09:39 Pantoprazole 40 Mg Tablet PO 40 mg DAILY USAMA Administration Radiology Results: ITS Impressions Chest X-Ray 10/16/24 08:16 IMPRESSION: 1. Stable chronic interstitial lung disease. Abdomen/Pelvis CT 10/16/24 09:11 IMPRESSION: 1. Cholelithiasis. No evidence of acute cholecystitis. 2. Mild chronic interstitial lung disease in a pattern of usual interstitial pneumonia (UIP). Head CT 10/16/24 11:04 IMPRESSION: 1. 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 No acute intracranial process. 2. Age-related changes including mild diffuse volume loss and mild scattered white matter hypoattenuation consistent with chronic small vessel ischemic disease. Foot X-Ray 10/16/24 16:24 IMPRESSION: Soft tissue defect along the plantar surface of the hindfoot without adjacent bony abnormality. Brain MRI 10/17/24 13:30 IMPRESSION: 1. No acute intracranial process. 2. 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 Head/Neck CTA 10/17/24 18:30 IMPRESSION: 1. Normal CTA head and neck. Percent stenosis per NASCET criteria is 0% Labs Labs: Laboratory Results - last 24 hr 10/17/24 10/17/24 10/17/24 06:57 08:59 10:54 WBC RBC Hgb Hct MCV MCH MCHC RDW Plt Count MPV Sodium Potassium Chloride Carbon Dioxide Anion Gap BUN Creatinine Estim Creat Clear Calc Estimated GFR Glucose POC Capillary Glucose 154 H Calcium Total Bilirubin AST ALT Alkaline Phosphatase Ammonia < 9 L Total Protein Albumin Vitamin B12 809.0 TSH (Reflex) 4.330 Free T4 1.29 Total T3 1.24 Nasal MRSA (PCR) 10/17/24 10/17/24 10/17/24 12:41 16:46 18:49 WBC RBC Hgb Hct MCV MCH MCHC RDW Plt Count MPV Sodium Potassium Chloride Carbon Dioxide Anion Gap BUN Creatinine Estim Creat Clear Calc Estimated GFR Glucose POC Capillary Glucose 154 H 154 H Calcium Total Bilirubin AST ALT Alkaline Phosphatase Ammonia Total Protein Albumin Vitamin B12 TSH (Reflex) Free T4 Total T3 Nasal MRSA (PCR) Not detected 10/17/24 10/18/24 10/18/24 20:40 07:15 08:07 WBC 11.8 H RBC 3.93 L Hgb 11.1 L Hct 34.1 L MCV 86.8 MCH 28.2 MCHC 32.6 RDW 13.2 Plt Count 266 MPV 9.9 Sodium 137 Potassium 3.3 L Chloride 104 Carbon Dioxide 23 Anion Gap 10 BUN 17 Creatinine 1.00 Estim Creat Clear Calc 46 Estimated GFR 55 L Glucose 137 H POC Capillary Glucose 122 H 146 H Calcium 8.4 Total Bilirubin 0.6 AST 19 ALT 13 Alkaline Phosphatase 65 Ammonia Total Protein 7.0 Albumin 3.5 Vitamin B12 TSH (Reflex) Free T4 Total T3 Nasal MRSA (PCR) Hospitalist MIPS Advance Care Plan I have confirmed that the patient's Advanced Care Plan is present, code status is documented, or surrogate decision maker is listed in patient medical record.: Yes Medication Reconciliation I have utilized all available resources to obtain, update and review the patients current medications (includes all prescriptions, OTC, herbals, cannabis, and nutritional supplements).: Yes
[2024-10-18] MEDS: METOPROLOL TARTRATE 50 MG TAB 100 MG PO ×2 (08:29→20:17)
[2024-10-18] MEDS: PANTOPRAZOLE 40 MG TABLET PO (08:29)
[2024-10-18] MEDS: hydrALAZINE 12.5 MG TABLET PO ×2 (08:30→13:29)
[2024-10-18] MEDS: ATORVASTATIN 20 MG TABLET PO (08:31)
[2024-10-18] MEDS: DULoxetine HCL 60 MG CAPSULE.DR PO (08:31)
[2024-10-18] MEDS: FUROSEMIDE 40 MG TABLET PO (08:31)
[2024-10-18] MEDS: CEFEPIME 1 GM/NS 50 ML 1 GM/50 ML BAG IVPB ×2 (08:32→20:18)
[2024-10-18] MEDS: ENOXAPARIN 40 MG/0.4 ML SYRINGE SUB-Q (08:33)
[2024-10-18] MEDS: POTASSIUM CHLORIDE 20 MEQ ER TABLET 40 MEQ PO (08:44)
[2024-10-18] MEDS: SODIUM CHLORIDE 0.9% IV 1,000 ML 125 ML IV CONT (10:13)
[2024-10-18 12:43] LABS: Glucose Point of Care 141 mg/dl (65-105)
[2024-10-18] MEDS: hydrALAZINE HCL 20 MG/ML VIAL 10 MG IV PUSH (14:47)
[2024-10-18 17:22] LABS: Glucose Point of Care 132 mg/dl (65-105)
[2024-10-18 17:35] LABS: Vancomycin Trough 13.3 ug/mL (10.0-20.0)
[2024-10-18] MEDS: ONDANSETRON INJ 4 MG/2 ML VIAL IV PUSH (18:05)
[2024-10-18] MEDS: hydrALAZINE HCL 25 MG TABLET PO ×2 (18:13→20:16)
[2024-10-18] MEDS: VANCOMYCIN 1,250 MG/NS 250 ML 1,250 MG/250 ML BAG 166.67 MG IVPB (18:49)
--- NOTE | 2024-10-18 19:00 | PC.NURSE ---
On 10/19/24, the CONCRETE FLOATER, Teresa Mims, provided care and completed [facility] health documentation on this patient. I have reviewed the CONCRETE FLOATER's documentation and agree with the findings.
[2024-10-18 22:12] LABS: Glucose Point of Care 144 mg/dl (65-105)
[2024-10-19] VITALS (17 sets, daily range): BP systolic 123–186; BP diastolic 53–115; PULSE 63–126; RESP 18; TEMP 36.2–37; O2SAT 91–98; BMI 27.5
[2024-10-19] MEDS: HYDROcodone/acetaminophen (*CRX) 5-325 MG TABLET 1 TAB PO ×3 (02:22→21:21)
[2024-10-19] MEDS: metroNIDAZOLE 500 MG/ISO 100ML 500 MG/100 ML BAG 100 MG IVPB (05:39)
[2024-10-19 08:11] LABS: Glucose Point of Care 152 mg/dl (65-105)
[2024-10-19] MEDS: METOPROLOL TARTRATE 50 MG TAB 100 MG PO ×2 (09:09→21:21)
[2024-10-19] MEDS: FUROSEMIDE 40 MG TABLET PO (09:09)
[2024-10-19] MEDS: cloNIDine HCL 0.1 MG TABLET 0.3 MG PO ×2 (09:09→21:21)
[2024-10-19] MEDS: CEFEPIME 1 GM/NS 50 ML 1 GM/50 ML BAG IVPB (09:10)
[2024-10-19] MEDS: ATORVASTATIN 20 MG TABLET PO (09:10)
[2024-10-19] MEDS: PANTOPRAZOLE 40 MG TABLET PO (09:10)
[2024-10-19] MEDS: DULoxetine HCL 60 MG CAPSULE.DR PO (09:10)
[2024-10-19] MEDS: hydrALAZINE HCL 25 MG TABLET PO ×4 (09:10→21:21)
[2024-10-19] MEDS: ENOXAPARIN 40 MG/0.4 ML SYRINGE SUB-Q (09:11)
[2024-10-19 10:39] LABS: Hemoglobin 12.1 g/dL (12.0-15.0); Mean Corpuscular HGB Conc 31.8 g/dl (32-36); Mean Corpuscular Hemoglobin 27.8 pg (26-34); Mean Corpuscular Volume 87.4 fl (80-100); Mean Platelet Volume 10.2 fl (7.4-10.4); Platelet Count Result 356 k/mm3 (150-375); Red Blood Count 4.35 M/mm3 (4.2-5.4); Red Cell Distribution Width 13.2 % (11.5-14.5); White Blood Count 12.7 K/mm3 (4.5-10.0)
[2024-10-19 11:05] LABS: Alanine Aminotransferase 18 U/L (6-35); Albumin Level 3.9 g/dL (3.5-5.1); Alkaline Phosphatase 74 U/L (38-126); Anion Gap 13 mmol/L (4-12); Aspartate Amino Transferase 24 U/L (14-36); Bilirubin,Total 0.7 mg/dL (0.2-1.3); Blood Urea Nitrogen 19 mg/dL (7-17); Calcium 8.9 mg/dL (8.4-10.2); Carbon Dioxide 25 mmol/L (22-30); Chloride 99 mmol/L (98-107); Estimated CRCL calculation 42 ml/min; Estimated Glomerular Filt Rate 49; Glucose 187 mg/dL (65-110); Potassium 4.3 mmol/L (3.4-5.0); Sodium 137 mmol/L (137-145)
[2024-10-19 12:08] LABS: Glucose Point of Care 160 mg/dl (65-105)
[2024-10-19] MEDS: VANCOMYCIN 1,250 MG/NS 250 ML 1,250 MG/250 ML BAG 166.67 MG IVPB (12:34)
[2024-10-19] MEDS: LACTIC ACID 12% LOTION 225 BTL 1 APPLIC TOPICAL (12:39)
[2024-10-19] MEDS: COLLAGENASE OINT 30 GM TUBE 1 APPLIC TOPICAL (12:39)
[2024-10-19] MEDS: metroNIDAZOLE 500 MG TABLET PO ×2 (14:26→21:21)
[2024-10-19 17:07] LABS: Glucose Point of Care 189 mg/dl (65-105)
--- NOTE | 2024-10-19 17:59 | PM.IMPN ---
Progress Note: A&P Assessment and Plan (1) Pressure ulcer, heel, left, unstageable: Code(s): L89.620 - Pressure ulcer of left heel, unstageable Status: Chronic Assessment and Plan: - follows with her PCP outpatient on a regular basis - continue Navdeep wraps bilaterally - wound RN consulted - wound culture obtained - DC cefepime,and vancomycin - In regards to wound culture started Bactrim DS and Metronidazole PO. - Foot XR (2) Hypertension, uncontrolled: Code(s): I10 - Essential (primary) hypertension Status: Acute Assessment and Plan: initial concern dizziness/lightheadedness secondary to BP, however symptoms did not improve with reduction. - chronic, current range: 177/76 - 212/98 - current BP 177/76 - initial treatment: clonidine 0.2 mg p.o. x1, hydralazine 10 mg IV x1 - continue home medications: Clonidine 0.3 mg b.i.d. and metoprolol 100 mg b.i.d. - monitor BP (3) Light-headedness: Code(s): R42 - Dizziness and giddiness Status: Acute Assessment and Plan: Unclear last known well. Reportedly developed lightheadedness, dizziness yesterday afternoon on 10/15. Patient confused today. - head CT: 1. 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 No acute intracranial process. 2. Age-related changes including mild diffuse volume loss and mild scattered white matter hypoattenuation consistent with chronic small vessel ischemic disease. - add CTA brain/carotid, may need MRI - CXR: 1. Stable chronic interstitial lung disease. - UA: 3+ glucose - EKG, initial: Sinus bradycardia, rate 58, borderline EKG. - viral PCR ordered - somnolent on exam, hold home baclofen/gabapentin/[place] and resume when appropriate. (4) Abdominal pain: Qualifiers: Abdominal location: unspecified location Qualified Code(s): R10.9 - Unspecified abdominal pain Code(s): R10.9 - Unspecified abdominal pain Status: Acute Assessment and Plan: Denied abdominal tenderness during interview, however was able to elicit tenderness with palpation to the left upper and left lower quadrants. - CT abdomen/pelvis: 1. Cholelithiasis. No evidence of acute cholecystitis. 2. Mild chronic interstitial lung disease in a pattern of usual interstitial pneumonia (UIP). - viral PCR ordered - add lipase - antiemetics and analgesics p.r.n. 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 Diabetes mellitus complication status: with hyperglycemia Qualified Code(s): E11.65 - Type 2 diabetes mellitus with hyperglycemia Code(s): E11.9 - Type 2 diabetes mellitus without complications Status: Chronic Assessment and Plan: - hypoglycemia protocol - POC blood glucose ACHS - home medication: hold Invokana, Metformin, and Glimepiride - correct regimen ordered - moderate dose TIDWM, based off BMI - A1C 7.2 on 10/07/2023, update Plan Patient currently lives at home alone and was unable to provide when she took her medication last, concern patient is no longer safe to stay at home given current condition. Consider care coordination consultation for placement if no improvement with confusion with ABX treatment and IV fluids. Diet: heart healthy, diabetic GI Prophylaxis: not currently indicated DVT Prophylaxis: Lovenox Lines: Peripheral Code Status: full code Subjective Date/time seen: 10/19/24 17:59 Interval history: In regards to wound culture started Bactrim DS and Metronidazole PO. No acute events reported. Review of Systems Review of Systems: All systems reviewed & are unremarkable except as noted in HPI and below Exam Narrative: +somnolent requiring multiple verbal redirections to answer questions/sustain wakefulness. 3.5 x 1.5 cm pressure wound to left heel with eschar and yellow/white purulent drainage. Erythema/skin flaking/thickened skin to bilateral calves. -heat. DP 2+ bilaterally. Const: General: comfortable and no acute distress Other: , elderly, female, modestly ill-appearing HENMT: Face/Nose/Sinus: Normal nares present Mouth: Yes dry mucous membranes Other: Poor dentition Eyes: General: appearance normal, both eyes and all related structures Sclera: sclerae normal Pupils: Equal, round and reactive pupils present EOM: EOMs intact bilaterally Resp: Effort & Inspection: normal respiratory effort Auscultation: clear to auscultation bilaterally Cardio: Rate: regular rate Rhythm: regular rhythm Other: S1-S2 present without murmur, rub, ectopy GI: Other: Abdomen tender in the left upper quadrant and left lower quadrant. No distension, soft, and normoactive bowel sounds in all quadrants. Skin: General skin exam: normal color, no rashes or lesions noted and wounds noted Wounds: wounds noted Other: Ulceration to left heel measuring approximately 3.5 x 1.5 cm. [place] to white wound bed with purulence, white/yellow thick discharge, and small amount of eschar. Erythema, thickened skin, and significant skin flaking to bilateral calves, symmetric, and skin blanchable. no heat. Neuro: Cranial nerves: Yes Equal, round and reactive pupils present Other: +somnolent requiring multiple verbal redirections to answer questions/sustain wakefulness. A&O to self and understands she is in hospital. Provided incorrect year and place. Moving all extremities. Difficulty following commands/interacting with exam due to somnolence. Extrem: General: normal exam except as noted Other: DP 2+ bilaterally. 1+ non-pitting edema, difficult to assess due to skin thickening. Psych: Mental Status: mental status grossly normal Affect: normal affect Other: Poor insight and judgment at present, pleasant Objective Data Vital Signs Vital Signs: Vital Signs - 24 hr 10/18/24 20:00 10/18/24 20:00 10/18/24 20:00 Temperature 97.1 F L Pulse Rate 89 90 Respiratory Rate 18 Blood Pressure 186/79 H Pulse Oximetry 100 Oxygen Delivery Room Air 10/18/24 20:17 10/18/24 22:00 10/19/24 00:00 Temperature Pulse Rate 88 69 Respiratory Rate Blood Pressure 117/54 L Pulse Oximetry Oxygen Delivery 10/19/24 04:00 10/19/24 05:23 10/19/24 08:00 Temperature 97.2 F L Pulse Rate 70 72 Respiratory Rate 18 Blood Pressure 148/61 H Pulse Oximetry 98 Oxygen Delivery Room Air 10/19/24 09:09 Temperature Pulse Rate 90 Respiratory Rate Blood Pressure Pulse Oximetry Oxygen Delivery Intake/Output Intake/Output: Intake & Output 10/16/24 10/17/24 10/18/24 10/19/24 23:59 23:59 23:59 23:59 Intake Total 2150 1720 1990 830 Output Total 1000 1100 2620 600 Balance 1150 620 -630 230 Meds/Results Medications: Active Medications Generic Name Dose Route Start Last Admin Trade Name Freq PRN Reason Stop Dose Admin Acetaminophen 650 mg 10/16/24 12:34 10/16/24 18:12 Acetaminophen 325 Mg Tablet PO 650 mg Q4H PRN Administration Mild Pain (1-3) or Fever Hydrocodone Bitart/Acetaminophen 1 tab 10/17/24 17:45 10/19/24 14:29 Hydrocodone/Acetaminophen (*Crx) 5-325 Mg Tablet PO 1 tab Q4H PRN Administration Pain Rated 4-6 Atorvastatin Calcium 20 mg 10/17/24 09:00 10/19/24 09:10 Atorvastatin 20 Mg Tablet PO 20 mg DAILY USAMA Administration Clonidine HCl 0.3 mg 10/16/24 21:00 10/19/24 09:09 Clonidine Hcl 0.1 Mg Tablet PO 0.3 mg Q12HR USAMA Administration Collagenase 1 applic 10/19/24 11:05 10/19/24 12:39 Collagenase Oint 30 Gm Tube TOPICAL 1 applic QAM USAMA Administration Dextrose 12.5 gm 10/17/24 15:30 Dextrose 50% 25 Gm/50 Ml Syringe IV PUSH PRN PRN Hypoglycemia Protocol Duloxetine HCl 60 mg 10/17/24 09:00 10/19/24 09:10 Duloxetine Hcl 60 Mg Capsule.Dr PO 60 mg DAILY USAMA Administration Enoxaparin Sodium 40 mg 10/17/24 09:00 10/19/24 09:11 Enoxaparin 40 Mg/0.4 Ml Syringe SUB-Q 40 mg DAILY USAMA Administration Furosemide 40 mg 10/17/24 09:00 10/19/24 09:09 Furosemide 40 Mg Tablet PO 40 mg DAILY USAMA Administration Glucagon 1 mg 10/17/24 15:30 Glucagon For Inj 1 Mg Vial IM PRN PRN Hypoglycemia Protocol Glucose 15 gm 10/17/24 15:30 Glucose Oral Gel 15 Gm Of Glucse In 37.5 Gm Tube PO PRN PRN Hypoglycemia Protocol Hydralazine HCl 25 mg 10/18/24 21:00 10/19/24 16:55 Hydralazine Hcl 25 Mg Tablet PO 25 mg QID USAMA Administration Dextrose 1,000 mls @ 100 mls/hr 10/17/24 15:30 Dextrose 5% 1,000 Ml IVPB PRN PRN Hypoglycemia Protocol Insulin Aspart 2 - 5 units 10/17/24 17:00 10/19/24 17:01 Insulin Aspart (*Bkc) 100 Units/Ml SUB-Q Not Given TIDWM USAMA Protocol Lactic Acid 1 applic 10/19/24 11:05 10/19/24 12:39 Lactic Acid 12% Lotion 225 Btl TOPICAL 1 applic QAM USAMA Administration Metoprolol Tartrate 100 mg 10/16/24 21:00 10/19/24 09:09 Metoprolol Tartrate 50 Mg Tab PO 100 mg Q12HR USAMA Administration Metronidazole 500 mg 10/19/24 14:20 10/19/24 14:26 Metronidazole 500 Mg Tablet PO 10/26/24 22:01 500 mg Q8HR USAMA Administration Ondansetron HCl 4 mg 10/16/24 12:34 10/18/24 18:05 Ondansetron Inj 4 Mg/2 Ml Vial IV PUSH 4 mg Q4H PRN Administration Nausea Pantoprazole Sodium 40 mg 10/17/24 09:00 10/19/24 09:10 Pantoprazole 40 Mg Tablet PO 40 mg DAILY USAMA Administration Trimethoprim/Sulfamethoxazole 1 tab 10/19/24 21:00 Sulfamethoxazole/Trimethoprim 800/160 Mg Ds Tablet PO 10/26/24 21:01 Q12HR [facility] Radiology Results: ITS Impressions Chest X-Ray 10/16/24 08:16 IMPRESSION: 1. Stable chronic interstitial lung disease. Abdomen/Pelvis CT 10/16/24 09:11 IMPRESSION: 1. Cholelithiasis. No evidence of acute cholecystitis. 2. Mild chronic interstitial lung disease in a pattern of usual interstitial pneumonia (UIP). Head CT 10/16/24 11:04 IMPRESSION: 1. 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 No acute intracranial process. 2. Age-related changes including mild diffuse volume loss and mild scattered white matter hypoattenuation consistent with chronic small vessel ischemic disease. Foot X-Ray 10/16/24 16:24 IMPRESSION: Soft tissue defect along the plantar surface of the hindfoot without adjacent bony abnormality. Brain MRI 10/17/24 13:30 IMPRESSION: 1. No acute intracranial process. 2. 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 Head/Neck CTA 10/17/24 18:30 IMPRESSION: 1. Normal CTA head and neck. Percent stenosis per NASCET criteria is 0% Labs Labs: Laboratory Results - last 24 hr 10/18/24 10/19/24 10/19/24 22:01 08:06 09:58 WBC 12.7 H RBC 4.35 Hgb 12.1 Hct 38.0 MCV 87.4 MCH 27.8 MCHC 31.8 L RDW 13.2 Plt Count 356 MPV 10.2 Sodium 137 Potassium 4.3 Chloride 99 Carbon Dioxide 25 Anion Gap 13 H BUN 19 H Creatinine 1.09 H Estim Creat Clear Calc 42 Estimated GFR 49 L Glucose 187 H POC Capillary Glucose 144 H 152 H Calcium 8.9 Total Bilirubin 0.7 AST 24 ALT 18 Alkaline Phosphatase 74 Total Protein 8.0 Albumin 3.9 10/19/24 10/19/24 11:53 17:01 WBC RBC Hgb Hct MCV MCH MCHC RDW Plt Count MPV Sodium Potassium Chloride Carbon Dioxide Anion Gap BUN Creatinine Estim Creat Clear Calc Estimated GFR Glucose POC Capillary Glucose 160 H 189 H Calcium Total Bilirubin AST ALT Alkaline Phosphatase Total Protein Albumin Quality VTE Prophylaxis VTE prophylaxis: pharmacologic ordered Hospitalist MIPS Advance Care Plan I have confirmed that the patient's Advanced Care Plan is present, code status is documented, or surrogate decision maker is listed in patient medical record.: Yes Medication Reconciliation I have utilized all available resources to obtain, update and review the patients current medications (includes all prescriptions, OTC, herbals, cannabis, and nutritional supplements).: Yes
[2024-10-19] MEDS: SULFAMETHOXAZOLE/TRIMETHOPRIM 800/160 MG DS TABLET 1 TAB PO (21:21)
[2024-10-20] VITALS (12 sets, daily range): BP systolic 136–163; BP diastolic 63–89; PULSE 57–95; RESP 12–18; TEMP 36.6–36.9; O2SAT 97–99
[2024-10-20] MEDS: HYDROcodone/acetaminophen (*CRX) 5-325 MG TABLET 1 TAB PO ×3 (00:55→20:38)
[2024-10-20] MEDS: metroNIDAZOLE 500 MG TABLET PO ×3 (05:50→21:11)
[2024-10-20 06:59] LABS: Hematocrit 35.6 % (37.0-47.0); Hemoglobin 11.2 g/dL (12.0-15.0); Mean Corpuscular HGB Conc 31.5 g/dl (32-36); Mean Corpuscular Hemoglobin 27.4 pg (26-34); Mean Platelet Volume 9.7 fl (7.4-10.4); Platelet Count Result 267 k/mm3 (150-375); Red Blood Count 4.09 M/mm3 (4.2-5.4); Red Cell Distribution Width 13.2 % (11.5-14.5); White Blood Count 10.9 K/mm3 (4.5-10.0)
[2024-10-20 07:13] LABS: Alanine Aminotransferase 20 U/L (6-35); Albumin Level 3.6 g/dL (3.5-5.1); Alkaline Phosphatase 62 U/L (38-126); Anion Gap 10 mmol/L (4-12); Aspartate Amino Transferase 29 U/L (14-36); Bilirubin,Total 0.5 mg/dL (0.2-1.3); Blood Urea Nitrogen 22 mg/dL (7-17); Calcium 8.7 mg/dL (8.4-10.2); Carbon Dioxide 24 mmol/L (22-30); Chloride 101 mmol/L (98-107); Estimated CRCL calculation 41 ml/min; Estimated Glomerular Filt Rate 48; Glucose 141 mg/dL (65-110); Potassium 3.9 mmol/L (3.4-5.0); Sodium 135 mmol/L (137-145)
[2024-10-20] MEDS: cloNIDine HCL 0.1 MG TABLET 0.3 MG PO ×2 (08:18→20:37)
[2024-10-20] MEDS: METOPROLOL TARTRATE 50 MG TAB 100 MG PO ×2 (08:18→20:37)
[2024-10-20] MEDS: DULoxetine HCL 60 MG CAPSULE.DR PO (08:19)
[2024-10-20] MEDS: FUROSEMIDE 40 MG TABLET PO (08:19)
[2024-10-20] MEDS: PANTOPRAZOLE 40 MG TABLET PO (08:19)
[2024-10-20] MEDS: SULFAMETHOXAZOLE/TRIMETHOPRIM 800/160 MG DS TABLET 1 TAB PO ×2 (08:19→20:37)
[2024-10-20] MEDS: hydrALAZINE HCL 25 MG TABLET PO ×4 (08:19→20:37)
[2024-10-20] MEDS: LACTIC ACID 12% LOTION 225 BTL 1 APPLIC TOPICAL (08:20)
[2024-10-20] MEDS: ENOXAPARIN 40 MG/0.4 ML SYRINGE SUB-Q (08:20)
[2024-10-20] MEDS: COLLAGENASE OINT 30 GM TUBE 1 APPLIC TOPICAL (08:20)
[2024-10-20] MEDS: ATORVASTATIN 20 MG TABLET PO (08:20)
[2024-10-20 08:33] LABS: Glucose Point of Care 156 mg/dl (65-105)
[2024-10-20 11:59] LABS: Glucose Point of Care 170 mg/dl (65-105)
--- NOTE | 2024-10-20 15:23 | PM.DS ---
DS: Admitting Diagnosis Discharge Date 10/20/24 Admitting Diagnosis AMS DS: Discharge Diagnosis Discharge Diagnosis (1) Encephalopathy: Code(s): G93.40 - Encephalopathy, unspecified Status: Acute DS: Summary Hospital Course Hospital Course: 74 y/o F presents here with weakness, dizziness, and abdominal pain with PMH of CVA (residual balance difficulties), diabetes, hypertension, anxiety, NSTEMI, and osteoarthritis. The patient presents here from home for further evaluation of weakness, dizziness, and abdominal pain. HPI provided by patient, patient however is currently a poor historian. She reports onset of dizziness and generalized weakness yesterday (10/15) afternoon, patient cannot report a time or if it was before/after dinner. She describes the dizziness as feeling off balance vs she is spinning/room spinning. The patient is unable to report if there are any alleviating/aggravating factors. She describes the weakness as intermittent. Unable to expand further, did report pain in buttocks. She reports she has not taken her home medications for the past couple days, may be longer. States she just forgot, not able to provide a specific reason. She denies abdominal pain, does report back pain. She describes the back pain as lower, unable to elaborate further. Unknown LBM. Per her PCP notes, she has had a chronic pressure ulcer to her left heel since January of 2024. Most recent visit on 10/09/2024 the wound did not show any signs of infection and she is currently in a Unna Boot to her LLE and has been instructed to keep pressure off wound. She currently denies any changes or new pain to this area. She also denies fever, chills, body aches. Currently lives at home alone. Initial VS at presentation: 98.7, HR 76, RR 15, 182/123, and 100% on RA. ED workup showed: WBC 14.1, no anemia, glucose 178, creatinine 0.99 and GFR 55, lactic 3.5, initial troponin negative, BNP 276, and UA showed 3+ glucose. CXR showed stable chronic interstitial lung disease. CT of the abdomen/pelvis showed cholelithiasis without evidence of acute cholecystitis and mild chronic interstitial lung disease in a pattern of unusual interstitial pneumonia (UIP). Head CT showed unchanged small old infarcts in the bilateral frontal lobes and left occipital lobe, no acute intracranial process, and age-related changes including mild diffuse volume loss and mild scattered white matter hypoattenuation. patient likely had drug related metabolic encephalopathy, CT head was unremarkable, EKG unremarkable. Patient's baclofen gabapentin and [place] was discontinued she improved markedly. Continue holding baclofen, [place]. Decrease gabapentin from 300-100 mg b.i.d.. Patient had a left heel ulcer wound Care was consulted wound culture was obtained which was unremarkable. Patient will continue wound care. Discharge in doxycycline and Flagyl for 5 days. Blood pressure controlled with patient's home medication, continue home medications. Patient was discharged to inpatient rehab at [facility]. Follow-up with PCP in 3-5 days. Continue wound care. Time Spent with Patient Time attestation: Total time spent providing and/or coordinating discharge services: DS: Data Data Completed and Pending Labs on day of discharge: Labs from last 24 hours 10/20/24 10/20/24 10/20/24 11:48 08:08 06:54 WBC 10.9 H RBC 4.09 L Hgb 11.2 L Hct 35.6 L MCV 87.0 MCH 27.4 MCHC 31.5 L RDW 13.2 Plt Count 267 MPV 9.7 Sodium 135 L Potassium 3.9 Chloride 101 Carbon Dioxide 24 Anion Gap 10 BUN 22 H Creatinine 1.11 H Estim Creat Clear Calc 41 Estimated GFR 48 L Glucose 141 H POC Capillary Glucose 170 H 156 H Calcium 8.7 Total Bilirubin 0.5 AST 29 ALT 20 Alkaline Phosphatase 62 Total Protein 7.0 Albumin 3.6 10/19/24 17:01 WBC RBC Hgb Hct MCV MCH MCHC RDW Plt Count MPV Sodium Potassium Chloride Carbon Dioxide Anion Gap BUN Creatinine Estim Creat Clear Calc Estimated GFR Glucose POC Capillary Glucose 189 H Calcium Total Bilirubin AST ALT Alkaline Phosphatase Total Protein Albumin Preliminary micro results at discharge 10/16/24 15:40 Anaerobic Culture - Preliminary Foot - Unspecified 10/17/24 10:55 Blood Culture - Preliminary Blood 10/17/24 11:02 Blood Culture - Preliminary Blood Discharge Plan Discharge Attending physician on discharge: Rony Olmos Discharging Clinician: Rony Olmos Anticipated Discharge Date/Time: 10/20/24 15:20 Patient Disposition: [facility] Activity: as tolerated Diet: as tolerated Patient Language: Greek Stand Alone Forms: General Discharge Information Follow-up/Referrals: Mateo Alfaro MD [Primary Care Provider] - (Follow PCP in 3-5 days with) Discharge Medications: New metronidazole 500 mg Tablet 500 mg PO Q8HR 5 Days Qty: 15 0RF doxycycline hyclate 100 mg capsule 100 mg PO BID 5 Days Qty: 10 0RF Continued (DME) FreeStyle Yulia 2 [place] Misc See Rx Instructions .Route Qty: 1 0RF Rx Instructions: As directed hydrocodone-acetaminophen 5-325 mg tablet 1 tablet PO Q6H PRN (Reason: pain) Qty: 120 0RF (DME) lancet-gluc test strip-needles Combo Pack See Rx Instructions .Route Qty: 300 0RF Rx Instructions: As directed (DME) OneTouch Verio test strips Strip See Rx Instructions .Route Qty: 300 0RF Rx Instructions: use 1 tid to check blood sugar Invokana 300 mg tablet 300 mg PO DAILY Qty: 90 3RF furosemide 40 mg tablet 40 mg PO DAILY Qty: 30 5RF (DME) FreeStyle Yulia 2 Sensor Kit See Rx Instructions .Route Qty: 2 12RF Rx Instructions: As directed duloxetine 60 mg capsule,delayed release(DR/EC) See Rx Instructions .ROUTE .COMPLEX Qty: 90 2RF Dose Instruction: Take 1 capsule by mouth once daily Rx Instructions: Take 1 capsule by mouth once daily pantoprazole 40 mg tablet,delayed release (DR/EC) 40 mg PO DAILY Qty: 60 5RF glimepiride 4 mg tablet 4 mg PO QAM Qty: 90 1RF Rx Instructions: administer with breakfast metoprolol tartrate 100 mg tablet See Rx Instructions .ROUTE .COMPLEX Qty: 180 2RF Dose Instruction: Take 1 tablet by mouth twice daily Rx Instructions: Take 1 tablet by mouth twice daily atorvastatin 20 mg tablet See Rx Instructions .ROUTE .COMPLEX Qty: 90 2RF Dose Instruction: Take 1 tablet by mouth once daily Rx Instructions: Take 1 tablet by mouth once daily metformin 500 mg tablet extended release 24 hr See Rx Instructions .ROUTE .COMPLEX Qty: 180 1RF Dose Instruction: Take 2 tablets by mouth twice daily Rx Instructions: Take 2 tablets by mouth twice daily clonidine HCl 0.3 mg tablet See Rx Instructions .ROUTE .COMPLEX Qty: 60 2RF Dose Instruction: Take 1 tablet by mouth twice daily Rx Instructions: Take 1 tablet by mouth twice daily Changed gabapentin 300 mg capsule 100 mg PO BID Qty: 60 5RF Discontinued baclofen 10 mg tablet 10 mg PO TID PRN (Reason: muscle spasm) Qty: 90 3RF Date of admission: 10/17/24 17:19 Primary Care Provider: Mateo Alfaro Admitting Provider: Ken Garrison Attending physician on admission: Ken Garrison Condition: Stable
[2024-10-20 17:13] LABS: Glucose Point of Care 106 mg/dl (65-105)
[2024-10-20 20:38] LABS: Glucose Point of Care 179 mg/dl (65-105)
[2024-10-21 00:02] VITALS: PULSE 55
[2024-10-21 04:02] VITALS: PULSE 73
[2024-10-21] MEDS: HYDROcodone/acetaminophen (*CRX) 5-325 MG TABLET 1 TAB PO (04:11)
[2024-10-21 04:35] VITALS: BP 145/99; PULSE 61; RESP 20; TEMP 36.4; O2SAT 97
[2024-10-21] MEDS: metroNIDAZOLE 500 MG TABLET PO ×2 (05:06→13:02)
[2024-10-21 08:00] VITALS: PULSE 72
[2024-10-21 08:22] LABS: Glucose Point of Care 165 mg/dl (65-105)
[2024-10-21 08:36] VITALS: PULSE 70
[2024-10-21] MEDS: cloNIDine HCL 0.1 MG TABLET 0.3 MG PO (08:36)
[2024-10-21] MEDS: METOPROLOL TARTRATE 50 MG TAB 100 MG PO (08:36)
[2024-10-21] MEDS: FUROSEMIDE 40 MG TABLET PO (08:37)
[2024-10-21] MEDS: SULFAMETHOXAZOLE/TRIMETHOPRIM 800/160 MG DS TABLET 1 TAB PO (08:37)
[2024-10-21] MEDS: PANTOPRAZOLE 40 MG TABLET PO (08:37)
[2024-10-21] MEDS: ATORVASTATIN 20 MG TABLET PO (08:37)
[2024-10-21] MEDS: ENOXAPARIN 40 MG/0.4 ML SYRINGE SUB-Q (08:38)
[2024-10-21] MEDS: DULoxetine HCL 60 MG CAPSULE.DR PO (08:38)
[2024-10-21] MEDS: hydrALAZINE HCL 25 MG TABLET PO ×2 (08:38→12:09)
[2024-10-21] MEDS: LACTIC ACID 12% LOTION 225 BTL 1 APPLIC TOPICAL (08:40)
[2024-10-21] MEDS: COLLAGENASE OINT 30 GM TUBE 1 APPLIC TOPICAL (08:40)
[2024-10-21] MEDS: polyethylene glycoL 3350 17 GM POWD.PACK PO (10:08)
[2024-10-21 11:21] LABS: Glucose Point of Care 207 mg/dl (65-105)
[2024-10-21 12:00] VITALS: PULSE 64
--- NOTE | 2024-10-21 12:00 | P.DS_ITS ---
DS: Admitting Diagnosis Discharge Date 10/21/24 Admitting Diagnosis AMS DS: Discharge Diagnosis Discharge Diagnosis (1) Encephalopathy: Code(s): G93.40 - Encephalopathy, unspecified Status: Acute DS: Summary Hospital Course Hospital Course: 74 y/o F presents here with weakness, dizziness, and abdominal pain with PMH of CVA (residual balance difficulties), diabetes, hypertension, anxiety, NSTEMI, and osteoarthritis. The patient presents here from home for further evaluation of weakness, dizziness, and abdominal pain. HPI provided by patient, patient however is currently a poor historian. She reports onset of dizziness and generalized weakness yesterday (10/15) afternoon, patient cannot report a time or if it was before/after dinner. She describes the dizziness as feeling off balance vs she is spinning/room spinning. The patient is unable to report if there are any alleviating/aggravating factors. She describes the weakness as intermittent. Unable to expand further, did report pain in buttocks. She reports she has not taken her home medications for the past couple days, may be longer. States she just forgot, not able to provide a specific reason. She denies abdominal pain, does report back pain. She describes the back pain as lower, unable to elaborate further. Unknown LBM. Per her PCP notes, she has had a chronic pressure ulcer to her left heel since January of 2024. Most recent visit on 10/09/2024 the wound did not show any signs of infection and she is currently in a Unna Boot to her LLE and has been instructed to keep pressure off wound. She currently denies any changes or new pain to this area. She also denies fever, chills, body aches. Currently lives at home alone. Initial VS at presentation: 98.7, HR 76, RR 15, 182/123, and 100% on RA. ED workup showed: WBC 14.1, no anemia, glucose 178, creatinine 0.99 and GFR 55, lactic 3.5, initial troponin negative, BNP 276, and UA showed 3+ glucose. CXR showed stable chronic interstitial lung disease. CT of the abdomen/pelvis showed cholelithiasis without evidence of acute cholecystitis and mild chronic interstitial lung disease in a pattern of unusual interstitial pneumonia (UIP). Head CT showed unchanged small old infarcts in the bilateral frontal lobes and left occipital lobe, no acute intracranial process, and age-related changes including mild diffuse volume loss and mild scattered white matter hypoattenuation. patient likely had drug related metabolic encephalopathy, CT head was unremarkable, EKG unremarkable. Patient's baclofen gabapentin and [place] was discontinued she improved markedly. Continue holding baclofen, [place]. Decrease gabapentin from 300 to 100 mg b.i.d.. Patient had a left heel ulcer wound Care was consulted wound culture was obtained which was unremarkable. Patient will continue wound care. Discharge in doxycycline and Flagyl for 5 days. Blood pressure controlled with patient's home medication, continue home medications. Patient was erroneously accepted to [facility] with the wrong insurance, thus discharge was cancelled yesterday. Today, her insurance would not approve her for acute rehab and patient decided to go home with Home health today Thus she was discharged home with home health Follow-up with PCP in 3-5 days. Continue wound care. Time Spent with Patient Time attestation: Total time spent providing and/or coordinating discharge services: DS: Data Data Completed and Pending Labs on day of discharge: Labs from last 24 hours 10/21/24 10/21/24 10/20/24 11:18 08:17 20:12 POC Capillary Glucose 207 H 165 H 179 H 10/20/24 17:03 POC Capillary Glucose 106 H Preliminary micro results at discharge 10/16/24 15:40 Anaerobic Culture - Preliminary Foot - Unspecified 10/17/24 10:55 Blood Culture - Preliminary Blood 10/17/24 11:02 Blood Culture - Preliminary Blood Discharge Plan Discharge Attending physician on discharge: Rony Olmos Discharging Clinician: Rony Olmos Anticipated Discharge Date/Time: 10/20/24 15:20 Patient Disposition: Home Health Service Activity: as tolerated Diet: as tolerated Patient Instructions: Antibiotic Form Patient Language: Citizen Of [place] Stand Alone Forms: General Discharge Information Follow-up/Referrals: Mateo Alfaro MD [Primary Care Provider] - (Follow PCP in 3-5 days with) Discharge Medications: New metronidazole 500 mg Tablet 500 mg PO Q8HR 5 Days Qty: 15 0RF doxycycline hyclate 100 mg capsule 100 mg PO BID 5 Days Qty: 10 0RF Continued (DME) FreeStyle Yulia 2 [place] Misc See Rx Instructions .Route Qty: 1 0RF Rx Instructions: As directed hydrocodone-acetaminophen 5-325 mg tablet 1 tablet PO Q6H PRN (Reason: pain) Qty: 120 0RF (DME) lancet-gluc test strip-needles Combo Pack See Rx Instructions .Route Qty: 300 0RF Rx Instructions: As directed ([facility]) OneTouch Verio test strips Strip See Rx Instructions .Route Qty: 300 0RF Rx Instructions: use 1 tid to check blood sugar Invokana 300 mg tablet 300 mg PO DAILY Qty: 90 3RF furosemide 40 mg tablet 40 mg PO DAILY Qty: 30 5RF (DME) FreeStyle Yulia 2 Sensor Kit See Rx Instructions .Route Qty: 2 12RF Rx Instructions: As directed duloxetine 60 mg capsule,delayed release(DR/EC) See Rx Instructions .ROUTE .COMPLEX Qty: 90 2RF Dose Instruction: Take 1 capsule by mouth once daily Rx Instructions: Take 1 capsule by mouth once daily pantoprazole 40 mg tablet,delayed release (DR/EC) 40 mg PO DAILY Qty: 60 5RF glimepiride 4 mg tablet 4 mg PO QAM Qty: 90 1RF Rx Instructions: administer with breakfast metoprolol tartrate 100 mg tablet See Rx Instructions .ROUTE .COMPLEX Qty: 180 2RF Dose Instruction: Take 1 tablet by mouth twice daily Rx Instructions: Take 1 tablet by mouth twice daily atorvastatin 20 mg tablet See Rx Instructions .ROUTE .COMPLEX Qty: 90 2RF Dose Instruction: Take 1 tablet by mouth once daily Rx Instructions: Take 1 tablet by mouth once daily metformin 500 mg tablet extended release 24 hr See Rx Instructions .ROUTE .COMPLEX Qty: 180 1RF Dose Instruction: Take 2 tablets by mouth twice daily Rx Instructions: Take 2 tablets by mouth twice daily clonidine HCl 0.3 mg tablet See Rx Instructions .ROUTE .COMPLEX Qty: 60 2RF Dose Instruction: Take 1 tablet by mouth twice daily Rx Instructions: Take 1 tablet by mouth twice daily Changed gabapentin 300 mg capsule 100 mg PO BID Qty: 60 5RF Discontinued baclofen 10 mg tablet 10 mg PO TID PRN (Reason: muscle spasm) Qty: 90 3RF Date of admission: 10/17/24 17:19 Primary Care Provider: Mateo Alfaro Admitting Provider: Ken Garrison Attending physician on admission: Ken Garrison Condition: Stable
[2024-10-21] MEDS: INSULIN ASPART (*BKC) 100 UNITS/ML SUB-Q (12:08)
--- NOTE | 2024-10-22 06:49 | P.CDI_ITS ---
CDI Query Clarification Request Encephalopathy has been documented on d/c summary but not in progress notes, please clarify if encephalopathy was present on admission. Encephalopathy has been documented. Please clarify type of encephalopathy: * Metabolic * Toxic * Hepatic * Hypertensive * Other * Unable to Determine The medical record reflects the following: History of Present Illness HPI narrative: 74-year-old with a history of hypertension, diabetes, anxiety disorder here with the complaints of feeling lightheaded for past few days. She states that she is unable to taking the medication. No history of nausea or vomiting. Complains of diffuse abdominal pain. Denies any fever or chills. (2) Hypertension, uncontrolled: Code(s): I10 - Essential (primary) hypertension Status: Acute Assessment and Plan: initial concern dizziness/lightheadedness secondary to BP, however symptoms did not improve with reduction. - chronic, current range: 177/76 - 212/98 - current BP 177/76 - initial treatment: clonidine 0.2 mg p.o. x1, hydralazine 10 mg IV x1 - continue home medications: Clonidine 0.3 mg b.i.d. and metoprolol 100 mg b.i.d. - monitor BP (3) Light-headedness: Code(s): R42 - Dizziness and giddiness Status: Acute Assessment and Plan: Unclear last known well. Reportedly developed lightheadedness, dizziness yesterday afternoon on 10/15. Patient confused today. - head CT: 1. 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 No acute intracranial process. 2. Age-related changes including mild diffuse volume loss and mild scattered white matter hypoattenuation consistent with chronic small vessel ischemic disease. - add CTA brain/carotid, may need MRI - CXR: 1. Stable chronic interstitial lung disease. - UA: 3+ glucose - EKG, initial: Sinus bradycardia, rate 58, borderline EKG. - viral PCR ordered - somnolent on exam, hold home baclofen/gabapentin/[place] and resume when appropriate. <Marietta Espino RN - Last Filed: 10/22/24 06:53> Clarified Diagnosis Clarified Diagnosis: * Toxic <Rony Olmos MD - Last Filed: 10/22/24 07:10>
== END 2024-10-21 13:35 | disposition home health service (06) | DRG 93 ==
LOC: ANHED 12:31 → ANH3MEDSUR 18:09
PROVIDERS: General Practice; Student in an Organized Health Care Education/Training Program; Admitting Provider Internal Medicine; Emergency Provider Family Medicine; PCP Family Medicine Adolescent Medicine; Visit Provider Internal Medicine
DX: G92.8 Other toxic encephalopathy (principal); T42.8X5A Adverse effect of antiparkinsonism drugs and other central muscle-tone depressants, initial encounter; E11.9 Type 2 diabetes mellitus without complications; F12.90 Cannabis use, unspecified, uncomplicated; F41.1 Generalized anxiety disorder; I10 Essential (primary) hypertension; I25.2 Old myocardial infarction; K80.20 Calculus of gallbladder without cholecystitis without obstruction; L89.629 Pressure ulcer of left heel, unspecified stage; M19.042 Primary osteoarthritis, left hand; M19.041 Primary osteoarthritis, right hand; M17.0 Bilateral primary osteoarthritis of knee; Z20.822 Contact with and (suspected) exposure to COVID-19; Z86.73 Personal history of transient ischemic attack (TIA), and cerebral infarction without residual deficits; Z79.84 Long term (current) use of oral hypoglycemic drugs; Z87.891 Personal history of nicotine dependence
CPT/HCPCS: 36415; 70450; 70496; 70498; 70551; 71045; 73620; 74177; 80048; 80053; 80202; 81003; 82140; 82607; 82948; 83605; 83690; 83880; 84439; 84443; 84480; 84484; 85025; 85027; 85610; 87040; 87070; 87075; 87086; 87205; 87637; 87641; 93005; 96361; 96365; 96366; 96367; 96368; 96372; 96375; 96376; 97162; 97165; 97535; 99285; A9270; G0378; J0360; J0692; J1650; J1815; J1836; J1885; J2405; J3370; J7030; Q9967

== ENCOUNTER 2024-11-24 10:50 | Emergency (ER) | payer OTHER, SELFPAY ==
[2024-11-24] VITALS (7 sets, daily range): BP systolic 170–189; BP diastolic 89–95; PULSE 69–92; RESP 16–22; TEMP 36.4–36.7; O2SAT 97–100
--- NOTE | ~2024-11-24 | CT_ITS ---
EXAMINATION: CT brain wo con DATE: 11/24/2024 13:24 INDICATION: Altered mental status TECHNIQUE: Computed tomography (CT) of the head was performed without intravenous contrast. Sagittal and coronal reconstructions were performed. The mA was adjusted according to patient size. Iterative reconstruction technique was employed. The dose-length product was 605.33 mGy-cm. COMPARISON: head CT dated 10/17/2024 FINDINGS: Unchanged small regions of encephalomalacia in the bilateral frontal and left occipital lobes consist ent with sequela of old infarct. No acute intracranial hemorrhage, acute infarction or abnormal extra axial fluid collection. There is mild scattered white matter hypoattenuation consistent with chronic small vessel ischemic disease. Symmetric prominence of the sulci consistent with mild age-appropriat e diffuse cerebral volume loss. Ventricles are normal and symmetric. No mass/mass effect. Intracrani al calcified cerebral atherosclerosis is noted at the bilateral carotid siphons. The orbits, paranas al sinuses and mastoid air cells are normal. IMPRESSION: 1. 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 No acute intr acranial process. 2. Age-related changes including mild diffuse volume loss and mild scattered white matter hypoattenua tion consistent with chronic small vessel ischemic disease. Reviewed, dictated and finalized at location B. IMPRESSION: 1. Unchanged small old infarcts in the bilateral frontal lobes and left occipit al lobe. No acute intracranial process. 2. Age-related changes including mild diffuse volume loss and mild scattered wh ite matter hypoattenuation consistent with chronic small vessel ischemic diseas e.
--- NOTE | 2024-11-24 11:26 | ECG_ITS ---
Test Date: 2024-11-24 11:40:15 Measurements Intervals [place] Rate: 86 P: 40 WV: 186 QRS: -3 QRSD: 78 T: 49 QT: 373 QTc: 447 Interpretive Statements SINUS RHYTHM Compared to ECG 10/16/2024 07:55:50 Sinus bradycardia no longer present Electronically Signed On 11-24-2024 16:44:39 CDT by Presley Arias M.D.
[2024-11-24 11:44] LABS: Basophils Absolute Auto 0.1 K/mm3 (0.0-0.1); Eosinophils Absolute Auto 0.1 K/mm3 (0-0.3); Eosinophils Percent Auto 1.1 % (0-4.4); Hematocrit 41.5 % (37.0-47.0); Hemoglobin 13.3 g/dL (12.0-15.0); Immature Granulocyte Absolute 0.04 K/mm3 (0.00-0.031); Immature Granulocyte Percent A 0.3 % (0-0.5); Lymphocytes Absolute Auto 2.62 K/mm3 (0.9-3.2); Lymphocytes Percent Auto 20.1 % (18.3-44.2); Mean Corpuscular Hemoglobin 27.9 pg (26-34); Mean Corpuscular Volume 87.2 fl (80-100); Mean Platelet Volume 9.9 fl (7.4-10.4); Monocytes Absolute Auto 1.1 K/mm3 (0.1-0.6); Monocytes Percent Auto 8.4 % (2.6-8.5); Neutrophils Percent Auto 69.1 % (45.5-73.1); Platelet Count Result 380 k/mm3 (150-375); Red Blood Count 4.76 M/mm3 (4.2-5.4); Red Cell Distribution Width 14.4 % (11.5-14.5)
[2024-11-24 11:56] LABS: Prothrombin Time 13.6 Seconds (11.1-14.7)
[2024-11-24 11:57] LABS: Partial Thromboplastin Time 27.8 Seconds (22.3-36.8)
[2024-11-24 11:58] LABS: Alanine Aminotransferase 19 U/L (6-35); Albumin Level 4.7 g/dL (3.5-5.1); Alkaline Phosphatase 58 U/L (38-126); Anion Gap 15 mmol/L (4-12); Aspartate Amino Transferase 25 U/L (14-36); Bilirubin,Total 0.5 mg/dL (0.2-1.3); Blood Urea Nitrogen 25 mg/dL (7-17); Carbon Dioxide 22 mmol/L (22-30); Chloride 102 mmol/L (98-107); Estimated CRCL calculation 44 ml/min; Estimated Glomerular Filt Rate 60; Glucose 243 mg/dL (65-110); Potassium 4.5 mmol/L (3.4-5.0); Sodium 139 mmol/L (137-145)
[2024-11-24 12:07] LABS: NT Pro B Type Natriuretic Pept 583 pg/mL (19.9-100)
--- OUTSIDE RECORDS SUMMARY | 2024-11-24 12:49 | XMS_ITS | Clinical Summary ---
Author Organization [facility] Quirino bobby [facility] Address [address] [place] [address] Care Team Providers Care Sales Appointment Coordinator Name Role Phone Mateo Alfaro MD Primary Care Provider [phone] Allergies Active Allergy Reactions Criticality Noted Date [...] Encounters Date Type Department Care Team Description 11/18/2024 External Device Data [facility] ABSTRACTION Provider, Abstract 11/07/2024 External Device Data [facility]STRACTION Provider, Abstract 11/06/2024 External Device Data [place]STRA[place] Provider, Abstract 11/03/2024 External Device Data [facility]STRA[place] Provider, Abstract 10/20/2024 External Device Data [facility]STRA[place] Provider, Abstract 09/24/2024 External Device Data [place]STRA[place] Provider, [...] on file 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 Gender Identity Not on file Sexual Orientation [...] cm (5' 5 ) 08/15/2023 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 Body Mass Index 27.62 08/15/2023 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 Plan of Treatment Upcoming Encounters Date Type Department Care Team (Late st Contact Info) Description 04/12/2025 10:15 AM CDT Office Visit [facility] Oncology and Hematology - [place] [address] [place] [address] Emerson Souza MD [address] [place] [address] Health Maintenance Due Date Last Done Comments DTAP/TDAP/TD VACCINES (1 - Tdap) 12/31/1970 BREAST CANCER SCREENING 1992 COLORECTAL SCREENING 12/31/1996 Colorectal Cancer Screening 12/31/1996 FIT-DNA Q 3 years 12/31/1996 FIT/FOBT Q 1 year 12/31/1996 Flex Sig/CT Colonography Q 5 years 12/31/1996 PNEUMOCOCCAL VACCINE 50+ YEARS (1 of 1 - PCV) 01/01/20 02 ZOSTER VACCINE (1 of 2) 12/31/2001 RSV VACCINE (60+ or ) (1 - Risk 60-74 years 1-dose series) 2012 OSTEOPOROSIS SCREENING 12/31/2016 INFLUENZA VACCINE (#1) 2024 Insurance [employer] [place] MEDIC[place] PART A AND [employer] ACCESS/TRUE [employer] PPO [employer] [place] Care Teams Sales Appointment Coordinator Relationship Specialty Start Date End Date Mateo Alfaro MD PCP - General Family Practice 08/15/23
--- NOTE | 2024-11-24 12:52 | ED_ITS ---
HPI - General Adult General Chief complaint: Dizziness Stated complaint: I feel really bad Time Seen by Provider: 11/24/24 11:56 History of Present Illness HPI narrative: 74-year-old female with history hypertension, cephalopathy the, diabetes presents emergency department for evaluation for worsening dizziness. Both patient and family are poor historians. Patient states she has had some increased dizziness over the course of the last few days. Patient denies any falls or injuries. Patient denies any recent coughs colds or fevers. Patient denies any nausea vomiting or diarrhea. Patient states she has had some confusion but patient is at her baseline per family currently. Related Data Home Medications ?Medication ?Instructions ?Recorded ?Confirmed ?Last Taken ?Type gabapentin 300 mg capsule 300 mg PO DAILY 10/26/24 11/21/24 Unknown History Allergies Allergy/AdvReac Type Severity Reaction Status Date / Time amoxicillin (From Augmentin) Allergy Unknown Verified 11/20/24 10:35 clavulanic acid (From Allergy Unknown Verified 11/20/24 10:35 Augmentin) Review of Systems 2 Review of Systems: All systems reviewed & are unremarkable except as noted in HPI and below PMFSH Past Medical History Medical History (Updated 11/24/24 @ 15:22 by Ole Tillman MD) Eczema Osteoarthritis Venous insufficiency (chronic) (peripheral) DM2 (diabetes mellitus, type 2) Non-ST elevated myocardial infarction (non-STEMI) Osteoarthritis of hands, bilateral Bilateral primary osteoarthritis of knee Essential (primary) hypertension Fibromyalgia Generalized anxiety disorder Arthralgia of multiple joints Surgical History Surgical History History of tubal ligation (~1989) Family History Family History Grandparent Acute myocardial infarction Cerebrovascular accident Heart disease Mother Colon polyp Diabetes mellitus Pancreatic adenocarcinoma Other Depression Hypertension Neuralgia of both lower extremities Social History Social History Social History: Surrogate medical decision maker: Shravan Ramsay, spouse. Code status: Full code. Smoking status: Former smoker Tobacco type: cigarettes Second hand tobacco smoke exposure: No Additional smoking assessment comments: current every day marijuana pipe smoker Alcohol intake: never Substance use: current Substance use type: marijuana Lack of Transportation: No Lack of Food: Never True Current Housing: I Have Housing Concerned About Future Housing: No Difficulty Paying Gas/Electric Bills: No Difficulty Paying for Meds: No Currently Unemployed: YES Education: High School Diploma/GED Difficulty w/ Childcare or Family Care: No Living arrangements: with family Occupation/Education: retired Spiritual care concerns: No Agree to blood products: Yes Exam 2 Narrative: APPEARANCE: Well-appearing HEAD: normocephalic, atraumatic. EYES: PERRLA/EOMI, conjunctivae clear. NOSE: Normal no drainage EARS:TMS clear with good light reflex. THROAT: Pharynx clear, no exudate. NECK: Supple. No adenopathy, no masses. RESPIRATORY: Airway patent, respirations nonlabored. Clear to auscultation bilaterally, no rales, rhonchi, wheezing. CARDIOVASCULAR: Regular rate and rhythm without murmurs rubs or gallops. ABDOMINAL: Soft, nontender, nondistended, normal bowel sounds MUSCULOSKELETAL: Moves all extremities. Strength/ROM intact, No edema, No calf tenderness. NEURO: Slowed speech but able to interact with neuro exam with no focal deficit noted SKIN: Healing wound on left heel Course Vital Signs Vital signs: Vital Signs Temperature 98.1 F 11/24/24 11:07 Pulse Rate 92 11/24/24 11:07 Respiratory Rate 16 11/24/24 11:07 Blood Pressure 189/90 H 11/24/24 11:07 Pulse Oximetry 99 11/24/24 11:07 Oxygen Delivery Room Air 11/24/24 11:07 Temperature 98.0 F 11/24/24 16:27 Pulse Rate 84 11/24/24 16:27 Respiratory Rate 18 11/24/24 16:27 Blood Pressure 172/89 H 11/24/24 16:27 Pulse Oximetry 98 11/24/24 16:27 Oxygen Delivery Room Air 11/24/24 11:07 Medical Decision Making [facility] Narrative Medical decision making narrative: 74-year-old female complaint of intermittent dizziness. Patient is currently afebrile but does have a leukocytosis of 13, hemoglobin of 13.3 with a platelet count of 380. Patient's INR is 1.0, no acute abnormalities on the patient's CMP, patient does have a mildly elevated glucose and a mildly elevated proBNP UA was negative for infection, patient was negative influenza RSV and for COVID. CT head shows no acute intracranial process. Patient will be started on antibiotics to help with the leg wound. Family feels that the leg wound is continuing to improve. Patient will be treated with a round of Keflex. Patient has been on Rocephin previously. Patient is able abduct her baseline and denies any complaints at time of re-evaluation. Differential Diagnosis Differential Diagnosis: TIA, CVA, UTI, COVID, RSV, influenza Vital Signs Vital Signs: Vital Signs Temperature 98.1 F 11/24/24 11:07 Pulse Rate 92 11/24/24 11:07 Respiratory Rate 16 11/24/24 11:07 Blood Pressure 189/90 H 11/24/24 11:07 Pulse Oximetry 99 11/24/24 11:07 Oxygen Delivery Room Air 11/24/24 11:07 Temperature 98.0 F 11/24/24 16:27 Pulse Rate 84 11/24/24 16:27 Respiratory Rate 18 11/24/24 16:27 Blood Pressure 172/89 H 11/24/24 16:27 Pulse Oximetry 98 11/24/24 16:27 Oxygen Delivery Room Air 11/24/24 11:07 Lab Data Lab results reviewed: Yes I reviewed the patient's lab results. 11/24/24 11:37 11/24/24 11:37 Labs: Lab Results 11/24/24 11/24/24 11/24/24 Range/Units 11:37 11:37 13:03 WBC 13.0 H (4.5-10.0) K/mm3 RBC 4.76 (4.2-5.4) M/mm3 Hgb 13.3 (12.0-15.0) g/dL Hct 41.5 (37.0-47.0) % MCV 87.2 (80-100) fl MCH 27.9 (26-34) pg MCHC 32.0 (32-36) g/dl RDW 14.4 (11.5-14.5) % Plt Count 380 H (150-375) k/mm3 MPV 9.9 (7.4-10.4) fl Immature Gran % (Auto) 0.3 (0-0.5) % Neut % (Auto) 69.1 (45.5-73.1) % Lymph % (Auto) 20.1 (18.3-44.2) % Floyd % (Auto) 8.4 (2.6-8.5) % Eos % (Auto) 1.1 (0-4.4) % Baso % (Auto) 1.0 (0.2-1.2) % Lymph # (Auto) 2.62 (0.9-3.2) K/mm3 Floyd # (Auto) 1.1 H (0.1-0.6) K/mm3 Eos # (Auto) 0.1 (0-0.3) K/mm3 Baso # (Auto) 0.1 (0.0-0.1) K/mm3 Abs Immat Gran (auto) 0.04 H (0.00-0.031) K/mm3 Absolute Neuts (auto) 9.0 H (1.3-6.7) K/mm3 Absolute Nucleated RBC 0.000 (0.0-0.012) K/mm3 Nucleated RBC % 0.0 (0.0-0.2) % PT 13.6 (11.1-14.7) Seconds INR 1.0 APTT 27.8 (22.3-36.8) Seconds Sodium 139 (137-145) mmol/L Potassium 4.5 (3.4-5.0) mmol/L Chloride 102 (98-107) mmol/L Carbon Dioxide 22 (22-30) mmol/L Anion Gap 15 H (4-12) mmol/L BUN 25 H (7-17) mg/dL Creatinine 0.92 (0.7-1.0) mg/dL Estim Creat Clear Calc 44 ml/min Estimated GFR 60 (59 - ) Glucose 243 H (65-110) mg/dL Calcium 10.0 (8.4-10.2) mg/dL Total Bilirubin 0.5 (0.2-1.3) mg/dL AST 25 (14-36) U/L ALT 19 (6-35) U/L Alkaline Phosphatase 58 (38-126) U/L NT-Pro-B Natriuret Pep 583 H Cancelled (19.9-100) pg/mL Total Protein 9.0 H (6.3-8.2) g/dL Albumin 4.7 (3.5-5.1) g/dL Urine Color (Yellow) Urine Appearance (Clear) Urine pH (5.0-9.0) Ur Specific [place] (1.001-1.035) Urine Protein (Negative) mg/dL Urine Glucose (UA) (Negative) mg/dL Urine Ketones (Negative) mg/dL Ur Blood (Man) (Negative) Urine Nitrate (Negative) Urine Bilirubin (Negative) Urine Urobilinogen (<2.0) mg/dL Leukocyte Esterase Rfl (Negative) MI/UL Urine RBC (0-2) /hpf Urine WBC (0-3) /hpf Ur Squamous Epith Cells (Few) /hpf Urine Bacteria /hpf Urine Casts Influenza A (RT-PCR) Negative (Negative) Influenza B (RT-PCR) Negative (Negative) RSV (RT-PCR) Negative (Negative) SARS-CoV-2 RNA (RT-PCR) Negative (Negative) 11/24/24 Range/Units 14:23 WBC (4.5-10.0) K/mm3 RBC (4.2-5.4) M/mm3 Hgb (12.0-15.0) g/dL Hct (37.0-47.0) % MCV (80-100) fl MCH (26-34) pg MCHC (32-36) g/dl RDW (11.5-14.5) % Plt Count (150-375) k/mm3 MPV (7.4-10.4) fl Immature Gran % (Auto) (0-0.5) % Neut % (Auto) (45.5-73.1) % Lymph % (Auto) (18.3-44.2) % Floyd % (Auto) (2.6-8.5) % Eos % (Auto) (0-4.4) % Baso % (Auto) (0.2-1.2) % Lymph # (Auto) (0.9-3.2) K/mm3 Floyd # (Auto) (0.1-0.6) K/mm3 Eos # (Auto) (0-0.3) K/mm3 Baso # (Auto) (0.0-0.1) K/mm3 Abs Immat Gran (auto) (0.00-0.031) K/mm3 Absolute Neuts (auto) (1.3-6.7) K/mm3 Absolute Nucleated RBC (0.0-0.012) K/mm3 Nucleated RBC % (0.0-0.2) % PT (11.1-14.7) Seconds INR APTT (22.3-36.8) Seconds Sodium (137-145) mmol/L Potassium (3.4-5.0) mmol/L Chloride (98-107) mmol/L Carbon Dioxide (22-30) mmol/L Anion Gap (4-12) mmol/L BUN (7-17) mg/dL Creatinine (0.7-1.0) mg/dL Estim Creat Clear Calc ml/min Estimated GFR (59 - ) Glucose (65-110) mg/dL Calcium (8.4-10.2) mg/dL Total Bilirubin (0.2-1.3) mg/dL AST (14-36) U/L ALT (6-35) U/L Alkaline Phosphatase (38-126) U/L NT-Pro-B Natriuret Pep (19.9-100) pg/mL Total Protein (6.3-8.2) g/dL Albumin (3.5-5.1) g/dL Urine Color Yellow (Yellow) Urine Appearance Clear (Clear) Urine pH 7.0 (5.0-9.0) Ur Specific [place] 1.024 (1.001-1.035) Urine Protein 2+ H (Negative) mg/dL Urine Glucose (UA) 3+ H (Negative) mg/dL Urine Ketones Trace H (Negative) mg/dL Ur Blood (Man) Negative (Negative) Urine Nitrate Negative (Negative) Urine Bilirubin Negative (Negative) Urine Urobilinogen 0.2 (<2.0) mg/dL Leukocyte Esterase Rfl Negative (Negative) MI/UL Urine RBC 0-2 (0-2) /hpf Urine WBC 0-5 (0-3) /hpf Ur Squamous Epith Cells None seen (Few) /hpf Urine Bacteria None seen /hpf Urine Casts 0-2 Influenza A (RT-PCR) (Negative) Influenza B (RT-PCR) (Negative) RSV (RT-PCR) (Negative) SARS-CoV-2 RNA (RT-PCR) (Negative) Imaging Data Radiologist's impression: Impressions Head CT 11/24/24 13:27 IMPRESSION: 1. 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 No acute intracranial process. 2. Age-related changes including mild diffuse volume loss and mild scattered white matter hypoattenuation consistent with chronic small vessel ischemic disease. Discharge Plan Discharge Clinical Impression: Dizziness, Open wound of heel Patient Disposition: Home, Self-Care Condition: Stable Instructions: Antibiotic Form, Cellulitis (ED), Dizziness (ED) Additional Instructions: Antibiotic as directed until completed. Continue have close follow-up with Wound Care. If you have any worsening symptoms and please call or return to the emergency department. Patient Language: Croatian Prescriptions: New cephalexin 500 mg capsule 500 mg PO Q12H 7 Days Qty: 14 0RF No Action (DME) FreeStyle Yulia 2 [place] Misc See Rx Instructions .Route Qty: 1 0RF Rx Instructions: As directed ammonium lactate [AmLactin] 12 % lotion 1 applic topical DAILY Qty: 225 5RF gabapentin 300 mg capsule 300 mg PO DAILY (DME) lancet-gluc test strip-needles Combo Pack See Rx Instructions .Route Qty: 300 0RF Rx Instructions: As directed (DME) OneTouch Verio test strips Strip See Rx Instructions .Route Qty: 300 0RF Rx Instructions: use 1 tid to check blood sugar (DME) FreeStyle Yulia 2 Sensor Kit See Rx Instructions .Route Qty: 2 12RF Rx Instructions: As directed duloxetine 60 mg capsule,delayed release(DR/EC) See Rx Instructions .ROUTE .COMPLEX Qty: 90 2RF Dose Instruction: Take 1 capsule by mouth once daily Rx Instructions: Take 1 capsule by mouth once daily pantoprazole 40 mg tablet,delayed release (DR/EC) 40 mg PO DAILY Qty: 60 5RF glimepiride 4 mg tablet 4 mg PO QAM Qty: 90 1RF Rx Instructions: administer with breakfast metoprolol tartrate 100 mg tablet See Rx Instructions .ROUTE .COMPLEX Qty: 180 2RF Dose Instruction: Take 1 tablet by mouth twice daily Rx Instructions: Take 1 tablet by mouth twice daily atorvastatin 20 mg tablet See Rx Instructions .ROUTE .COMPLEX Qty: 90 2RF Dose Instruction: Take 1 tablet by mouth once daily Rx Instructions: Take 1 tablet by mouth once daily metformin 500 mg tablet extended release 24 hr See Rx Instructions .ROUTE .COMPLEX Qty: 180 1RF Dose Instruction: Take 2 tablets by mouth twice daily Rx Instructions: Take 2 tablets by mouth twice daily clonidine HCl 0.3 mg tablet See Rx Instructions .ROUTE .COMPLEX Qty: 60 2RF Dose Instruction: Take 1 tablet by mouth twice daily Rx Instructions: Take 1 tablet by mouth twice daily buspirone 10 mg tablet 10 mg PO BID Qty: 60 3RF hydrocodone-acetaminophen 5-325 mg tablet 1 tablet PO Q6H PRN (Reason: pain) Qty: 120 0RF furosemide 80 mg tablet 80 mg PO DAILY Qty: 30 5RF dapagliflozin propanediol [Farxiga] 10 mg tablet 10 mg PO DAILY Qty: 90 0RF Follow-up/Referrals: Mateo Alfaro MD [Primary Care Provider] -
[2024-11-24 13:52] LABS: Influenza A QL RT-PCR Negative (Negative); Influenza B QL RT-PCR Negative (Negative); RSV RNA, RT-PCR Negative (Negative); SARS-CoV-2 RNA PCR Negative (Negative)
--- OUTSIDE RECORDS SUMMARY | 2024-11-24 14:08 | XMS_ITS | Clinical Summary ---
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 Plan of Treatment Upcoming Encounters Date Type Department Care Team (Late st Contact Info) Description 04/12/2025 10:15 AM CDT Office Visit [facility] Oncology and Hematology - [place] [address] [place] [address] Emerson Souza MD [address] [place] [address] Health Maintenance Due Date Last [...] [place] PART A AND B [employer] ACCESS/TRUE [employer] PPO [place] Care Teams Agricultural Services Director Relationship Specialty Start Date End Date Mateo Alfaro MD PCP - General Family Practice 08/15/23
[2024-11-24 14:40] LABS: Add Urine Microscopic? YES; Appearance Urine Clear (Clear); Bacteria Urine None Seen /hpf; Bilirubin Urine Negative (Negative); Blood Urine Negative (Negative); Color Urine Yellow (Yellow); Glucose Urine UA 3+ mg/dL (Negative); Ketones Urine Trace mg/dL (Negative); Leukocyte Esterase Ur Negative LEU/UL (Negative); Nitrate Urine Negative (Negative); Non Pathogenic Casts 0-2; Protein Urine 2+ mg/dL (Negative); RBC Urine 0-2 /hpf (0-2); Specific Grav Ur 1.024 (1.001-1.035); Squamous Epithelial Cell Urine None Seen /hpf (Few); Urobilinogen Urine 0.2 mg/dL (<2.0); WBC Urine 0-5 /hpf (0-3)
--- NOTE | 2024-11-24 16:05 | PC.NURSE ---
Pt presented to ER with wound to left heel. Currently under care of home health for wound care. Wound size of 1/2 dollar red in center no drainage. Telfa, gauze wrap & matti wraps reapplied. Pt ambulated with walker distance of bee & returned to room. Pt states that is about how far she walks at home. Pt tolerated well. Dr. Tillman informed
== END 2024-11-24 16:11 | disposition home or self-care (01) ==
PROVIDERS: Student in an Organized Health Care Education/Training Program; Emergency Provider Emergency Medicine; PCP Family Medicine Adolescent Medicine
DX: R42 Dizziness and giddiness (principal); S91.302A Unspecified open wound, left foot, initial encounter; Z20.822 Contact with and (suspected) exposure to COVID-19; I25.2 Old myocardial infarction; I87.2 Venous insufficiency (chronic) (peripheral); I10 Essential (primary) hypertension; E11.9 Type 2 diabetes mellitus without complications; M79.7 Fibromyalgia; M19.042 Primary osteoarthritis, left hand; M19.041 Primary osteoarthritis, right hand; F41.9 Anxiety disorder, unspecified; Z87.891 Personal history of nicotine dependence; Z79.84 Long term (current) use of oral hypoglycemic drugs; Z79.899 Other long term (current) drug therapy; X58.XXXA Exposure to other specified factors, initial encounter
CPT/HCPCS: 36415; 70450; 80053; 81001; 83880; 85025; 85610; 85730; 87637; 93005; 99284

== ENCOUNTER 2025-03-26 12:36 | Inpatient (IN) | payer OTHER, SELFPAY ==
[2025-03-26] VITALS (14 sets, daily range): BP systolic 136–162; BP diastolic 81–105; PULSE 84–108; RESP 8–20; TEMP 36.6–36.9; O2SAT 92–100; BMI 23.1
--- NOTE | ~2025-03-26 | XR_ITS ---
MODIFIED ESOPHAGRAM HISTORY: Dysphagia. TECHNIQUE: Modified barium esophagram was performed on 04/02/2018. I administered fluoroscopy and perfo rmed the exam with speech pathologist. Patient was seated for lateral fluoroscopic imaging for inges tion of thin liquids, pudding, solids and quantified amounts, followed by thin liquids in uncontrolle d amounts. This was recorded on tape. A single fluoroscopic spot image was also recorded. The DAP for this procedure was 1.227 Gycm2. The amount of fluoroscopy time used during this procedure was 1.7 mi nutes. FINDINGS: Oral stage: Adequate function. Pharyngeal stage: Reduced laryngeal elevation. There is both vallecular and piriform sinus residue. L aryngeal penetration with trace aspiration after the swallow resulting from spillage of residual cont rast in the piriform sinus. Cervical/esophageal stage: Adequate function. IMPRESSION: Laryngeal penetration with trace aspiration after the swallow. Please correlate with spe ech pathologist findings and specific feeding recommendations. Reviewed, dictated and finalized at location A. IMPRESSION: Laryngeal penetration with trace aspiration after the swallow. Ple ase correlate with speech pathologist findings and specific feeding recommendat ions.
--- NOTE | ~2025-03-26 | US_ITS ---
EXAMINATION:US venous doppler LE BI INDICATION:Lower extremity pain and swelling TECHNIQUE: Multiple grayscale, color flow and Doppler images of the right and left lower extremity de ep venous systems were obtained and reviewed. COMPARISON:No prior studies for comparison. FINDINGS: The common femoral, superficial femoral and popliteal veins demonstrate normal respiratory variation, augmentation and compressibility. Color flow is also seen within the posterior tibial, pe roneal, greater saphenous and profunda veins. IMPRESSION: 1: No lower extremity deep venous thrombosis. Reviewed, dictated and finalized at location B.
--- NOTE | ~2025-03-26 | XR_ITS ---
MODIFIED ESOPHAGRAM HISTORY: Dysphagia. TECHNIQUE: Modified barium esophagram was performed on 03/29/2025. I administered fluoroscopy and perf ormed the exam with speech pathologist. Patient was seated for lateral fluoroscopic imaging for hai stion of thin liquids, pudding, solids and quantified amounts, followed by thin liquids in uncontroll ed amounts. This was recorded on tape. A single fluoroscopic spot image was also recorded. The DAP fo r this procedure was 2.187 Gycm2. The amount of fluoroscopy time used during this procedure was 3.1 m inutes. FINDINGS: Oral stage: Adequate function. Pharyngeal stage: Mild to moderate vallecular residue. There is laryngeal penetration and small amoun t of aspiration with uncontrolled thin liquids. Cervical/esophageal stage: Adequate function. IMPRESSION: Pharyngeal dysphagia with laryngeal penetration and aspiration with uncontrolled thin liq uids. Please correlate with speech pathologist findings and specific feeding recommendations. Reviewed, dictated and finalized at location A. IMPRESSION: Pharyngeal dysphagia with laryngeal penetration and aspiration with uncontrolled thin liquids. Please correlate with speech pathologist findings and specific feeding recommendations.
--- NOTE | ~2025-03-26 | CT_ITS ---
EXAMINATION: CT brain wo con DATE: 03/26/2025 19:42 INDICATION: Altered mental status TECHNIQUE: Computed tomography (CT) of the head was performed without intravenous contrast. Sagittal and coronal reconstructions were performed. The mA was adjusted according to patient size. Iterative reconstruction technique was employed. The dose-length product was 756.67 mGy-cm. COMPARISON: head CT dated 11/24/2024 FINDINGS: Again seen are small regions of encephalomalacia consistent with chronic infarcts in the bilateral fr ontal and left occipital lobes.No acute intracranial hemorrhage, acute infarction or abnormal extra a xial fluid collection. There is mild scattered white matter hypoattenuation consistent with chronic s mall vessel ischemic disease. Symmetric prominence of the sulci and subarachnoid spaces overlying the convexities consistent with mild age-appropriate diffuse cerebral volume loss. Ventricles are normal and symmetric. No mass/mass effect. Intracranial calcified cerebral atherosclerosis is noted at the bilateral carotid siphons. The orbits, paranasal sinuses and mastoid air cells are normal. IMPRESSION: 1. 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 No acute intr acranial process. 2. Age-related changes including mild diffuse volume loss and mild scattered white matter hypoattenua tion consistent with chronic small vessel ischemic disease. Reviewed, dictated and finalized at location A. IMPRESSION: 1. Unchanged small old infarcts in the bilateral frontal lobes and left occipit al lobe. No acute intracranial process. 2. Age-related changes including mild diffuse volume loss and mild scattered wh ite matter hypoattenuation consistent with chronic small vessel ischemic diseas e.
--- NOTE | ~2025-03-26 | XR_ITS ---
CHEST RADIOGRAPH CLINICAL HISTORY: worsening leukocytosis . COMPARISON: 07/21/2023. Reference is also made to a CT examination of the chest abdomen and pelvis dated 03/26/2025. TECHNIQUE: Single portable view of the chest. FINDINGS Multiple calcified lymph nodes are identified within the mediastinum, suggesting prior granulomatous disease. The remainder of the cardiomediastinal silhouette is otherwise unremarkable. The lungs are clear. IMPRESSION: No focal infiltrate or effusion. Reviewed, dictated and finalized at location A.
--- NOTE | ~2025-03-26 | CT_ITS ---
EXAMINATION: CT chest abdomen pelvis w con DATE: 03/26/2025 19:42 INDICATION: Congestive heart failure, lower abdominal pain and acute renal insufficiency TECHNIQUE: Computed tomography (CT) of the chest, abdomen, and pelvis was performed with 100 mL Omnip aque-350 intravenous contrast. Automated exposure control and iterative reconstruction technique were employed. The dose-length product was 660.74 mGy-cm. COMPARISON: CT abdomen and pelvis dated 10/16/[address] chest dated 01/21/2023 FINDINGS: CHEST CT: Again seen are peripheral and lower lung predominant irregular septal line thickening with associated honeycombing consistent with UIP pattern chronic interstitial lung disease. Calcified right lower lo be nodules along with calcified right hilar and mediastinal lymph nodes consistent with old granuloma tous disease. No pneumonia, pulmonary edema or pleural effusion. Heart size is normal. Atheroscleroti c coronary artery calcific lesion. No pericardial effusion. Thoracic aorta is normal in caliber with scattered nonhemodynamically significant atherosclerotic plaque with no dissection. Moderate thoracic spondylosis. ABDOMEN/PELVIS CT: Large peripherally calcified gallstone at the fundus of the otherwise normal gallbladder with no gall bladder wall thickening or pericholecystic inflammatory stranding to suggest acute cholecystitis. Shaneka er, pancreas and bilateral adrenal glands are normal. Several splenic calcifications consistent with old granulomatous disease. Again seen are small regions of bilateral mild renal cortical atrophy likely sequela prior infection or infarction. There is mild bilateral hydroureteronephrosis extending to the bladder which is partia lly decompressed with a Jara catheter in place. There is diffuse mild mucosal thickening the bladder wall with mucosal hyperemia suspicious for cystitis. There is also urothelial enhancement extending cephalad lung the right ureter. Right renal pelvis consistent with associated ascending urinary tract infection. There is decreased cortical enhancement at the upper pole the right kidney suspicious for early pyelonephritis. Moderate diverticulosis along the sigmoid colon without adjacent from trace stranding to suggest dive rticular disease. There does however appear to be diffuse edematous wall thickening along the sigmoid and distal descending colon suspicious for colitis. Small bowel and appendix are normal uterus and b ilateral adnexa are unremarkable. No free intraperitoneal gas or fluid. No pathologically enlarged ab dominal or pelvic lymphadenopathy. Severe disc height loss at L5-S1 with mild spondylosis and more ce phalad lumbar spine. IMPRESSION: 1. Findings suspicious for cystitis and right-sided ascending urinary tract infection with early poly nephritis at the upper pole the right kidney. Correlate with urinalysis. 2. Mild bilateral hydronephrosis extending to the bladder which suggests either chronic outlet obstru ction or neurogenic bladder. 3. Edematous wall thickening of the sigmoid and distal descending colon suspicious for colitis. 4. Stable appearance of mild UIP pattern chronic interstitial lung disease with no pulmonary edema or other acute cardiopulmonary disease. Reviewed, dictated and finalized at location A. IMPRESSION: 1. Findings suspicious for cystitis and right-sided ascending urinary tract inf ection with early polynephritis at the upper pole the right kidney. Correlate w ith urinalysis. 2. Mild bilateral hydronephrosis extending to the bladder which suggests either chronic outlet obstruction or neurogenic bladder. 3. Edematous wall thickening of the sigmoid and distal descending colon suspici ous for colitis. 4. Stable appearance of mild UIP pattern chronic interstitial lung disease with no pulmonary edema or other acute cardiopulmonary disease.
--- OUTSIDE RECORDS SUMMARY | 2025-03-26 12:37 | XMS_ITS | Clinical Summary ---
Author Organization [facility] Address [address] [place] [address] Care Team Providers Care Wood Processing Worker Name Role Phone Mateo Alfaro MD Primary Care Provider [phone]- [phone] Allergies Active Allergy Reactions Criticality Noted Date [...] Encounters Date Type Department Care Team Description 03/17/2025 External Device Data ST[facility] ABSTRACTION Provider, Abstract 03/16/2025 External Device Data [facility] ABSTRACTION Provider, Abstract 02/23/2025 External Device Data [facility] ABSTRACTION Provider, Abstract 02/16/2025 External Device Data [facility] ABSTRACTION Provider, Abstract 01/26/2025 External Device Data [facility] ABSTRACTION Provider, Abstract 01/21/2025 External Device Data [facility] ABSTRACTION Provider, Abstract 01/20/2025 External Device Data [facility] ABSTRACTION Provider, Abstract 01/19/2025 External Device Data ST[facility] ABSTRACTION Provider, Abstract [...] on file 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 Gender Identity Not on file Sexual Orientation [...] 11:49 AM CDT Height 165.1 cm (5' 5) 08/15/2023 1:57 PM 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 TECHNICIAN Body Mass Index 27.62 08/15/2023 1:57 PM 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 TECHNICIAN Plan of Treatment Upcoming Encounters Date Type Department Care Team (Late st Contact Info) Description 04/12/2025 10:15 AM CDT Office Visit [facility] Oncology and Hematology - [place] [address] [place] [address] Emerson Souza MD [address] [place] [address] Health Maintenance Due Date Last [...] 2012 OSTEOPOROSIS SCREENING 12/31/2016 INFLUENZA VACCINE (#1) 2025 Insurance [employer] MED[place] PART A AND B [employer] PPO [place] Care Teams Wood Processing Worker Relationship Specialty Start Date End Date Mateo Alfaro MD PCP - General Family Practice 08/15/23
--- NOTE | 2025-03-26 16:53 | ED_ITS ---
HPI - Weakness General Chief complaint: Weakness Stated complaint: weakness Time Seen by Provider: 03/26/25 16:20 History of Present Illness HPI Narrative: Patient is a 75-year-old female who presents to the ER with weakness and reports ?I just do not feel well. She reports I think I am close to . Patient's cares for her at home. She reports she has not been feeling well for a while. Patient's chart indicates she has a history of dementia, high blood pressure, hyperlipidemia, diabetes and RA. She endorses pain to her pelvic area. Patient is nonspecific with her symptoms but denies chest pain, recent fevers, or urinary symptoms. Related Data Allergies Allergy/AdvReac Type Severity Reaction Status Date / Time amoxicillin (From Augmentin) Allergy Unknown Verified 03/26/25 12:36 clavulanic acid (From Allergy Unknown Verified 03/26/25 12:36 Augmentin) Review of Systems 2 Review of Systems: All systems reviewed & are unremarkable except as noted in HPI and below PMFSH Past Medical History Medical History Eczema Osteoarthritis Venous insufficiency (chronic) (peripheral) DM2 (diabetes mellitus, type 2) Non-ST elevated myocardial infarction (non-STEMI) Osteoarthritis of hands, bilateral Bilateral primary osteoarthritis of knee Essential (primary) hypertension Fibromyalgia Generalized anxiety disorder Arthralgia of multiple joints Surgical History Surgical History History of tubal ligation (~1989) Family History Family History Grandparent Acute myocardial infarction Cerebrovascular accident Heart disease Mother Colon polyp Diabetes mellitus Pancreatic adenocarcinoma Other Depression Hypertension Neuralgia of both lower extremities Social History Social History Social History: Surrogate medical decision maker: Shravan Katerynacornelius, spouse. Code status: Full code. Smoking status: Former smoker Tobacco type: cigarettes Second hand tobacco smoke exposure: No Additional smoking assessment comments: current every day marijuana pipe smoker Alcohol intake: never Substance use: current Substance use type: marijuana Lack of Transportation: No Lack of Food: Never True Current Housing: I Have Housing Concerned About Future Housing: No Difficulty Paying Gas/Electric Bills: No Difficulty Paying for Meds: No Currently Unemployed: YES Education: High School Diploma/GED Difficulty w/ Childcare or Family Care: No Living arrangements: with family Occupation/Education: retired Spiritual care concerns: No Agree to blood products: Yes Exam 2 Narrative: GENERAL: Ill-appearing, well-nourished, non-toxic, in no acute distress. HEAD: Normocephalic, atraumatic. NECK: Supple. No adenopathy, no masses. RESPIRATORY: Airway patent, respirations nonlabored. Clear to auscultation bilaterally, no rales, rhonchi, wheezing. CARDIOVASCULAR: Regular rate and rhythm without murmurs, rubs, or gallops. Peripheral pulses 2+ and equal bilaterally. ABDOMINAL: Soft, nontender, nondistended, no hepatosplenomegaly. Normoactive BS. + pelvic area MUSCULOSKELETAL: Moves all extremities. Strength/ROM intact without gross deformities. SKIN: Warm, dry, normal color. Significantly red/purple, mildly excoriated, pelvic area consistent with a vaginal yeast infection NEURO: A&O X3. Speech clear. Cranial nerves II-XII intact. No ataxic movements. PSYCHIATRIC: Appropriate mood and affect. Lethargic. Some difficulty tracking conversation. Course Vital Signs Vital signs: Vital Signs Temperature 36.9 C 03/26/25 13:19 Pulse Rate 106 H 03/26/25 13:19 Respiratory Rate 17 03/26/25 13:19 Blood Pressure 162/105 H 03/26/25 13:19 Pulse Oximetry 98 03/26/25 13:19 Oxygen Delivery Room Air 03/26/25 13:19 Temperature 36.6 C 03/26/25 16:45 Pulse Rate 84 03/26/25 16:45 Respiratory Rate 16 03/26/25 16:45 Blood Pressure 142/82 H 03/26/25 16:45 Pulse Oximetry 96 03/26/25 16:45 Oxygen Delivery Room Air 03/26/25 16:45 MDM - Weakness MDM Narrative Medical decision making narrative: Patient is a 75-year-old female who presents to the ER with weakness and reports ?I just do not feel well. She reports I think I am close to . Patient's cares for her at home. She reports she has not been feeling well for a while. Patient's chart indicates she has a history of dementia, high blood pressure, hyperlipidemia, diabetes and RA. She endorses pain to her pelvic area. Patient is nonspecific with her symptoms but denies chest pain, recent fevers, or urinary symptoms. Labs Ordered: CBC, CMP, PTT, INR, ethanol, UDS, ammonia, lactic acid, CK, proBNP, UDS Imaging Ordered: CT brain, CT chest/abdomen/pelvis Medications Ordered: 2 L normal saline IV bolus, ceftriaxone IV Results: Patient's urinalysis indicates a UTI, including a glucose of 3+, leukocytes of 3+, rbcs of 3-5, white blood cell count 50 1-100, and yeast. Her CBC indicates a white blood cell count of 19.0 and platelet count of 515. Her chemistry indicates a sodium of 135, carbon dioxide of 21, anion gap of 14, BUN of 37, creatinine of 1.30, GFR 40, and glucose of 121. Patient's ammonia is less than 9. Her CK is 28. Patient's proBNP is 2810. Her total protein is 8.6. Patient's UDS was positive for opiates and cannabinoids. Diagnosis: Urinary tract infection, acute kidney injury, congestive heart failure 1800-spoke with hospitalist, ALIDA Whitten, who was in agreement with plan for patient's admission to the hospital. She will be admitted to the med/surg floor with telemetry. Patient will be started on IV antibiotics here in the ER to treat her UTI. She will be given IV fluid to treat her RENEA. Patient was also given a 1 time dose IV Lasix 40 mg to treat her elevated pro BNP. Differential Diagnosis Differential diagnosis: Likely hypothyroidism, rhabdomyolysis, sepsis, dehydration and other (Urinary tract infection, acute kidney injury, congestive heart failure) Lab Data Attestation: I reviewed the patient's lab results. 03/26/25 17:03 03/26/25 17:03 Labs: Lab Results 03/26/25 03/26/25 03/26/25 Range/Units 17:03 17:03 17:04 WBC 19.0 H (4.5-10.0) K/mm3 RBC 4.47 (4.2-5.4) M/mm3 Hgb 12.8 (12.0-15.0) g/dL Hct 39.4 (37.0-47.0) % MCV 88.1 (80-100) fl MCH 28.6 (26-34) pg MCHC 32.5 (32-36) g/dl RDW 13.7 (11.5-14.5) % Plt Count 515 H (150-375) k/mm3 MPV 9.9 (7.4-10.4) fl Immature Gran % (Auto) 0.9 H (0-0.5) % Neut % (Auto) 74.4 H (45.5-73.1) % Lymph % (Auto) 14.8 L (18.3-44.2) % Becker % (Auto) 8.7 H (2.6-8.5) % Eos % (Auto) 0.8 (0-4.4) % Baso % (Auto) 0.4 (0.2-1.2) % Lymph # (Auto) 2.81 (0.9-3.2) K/mm3 Becker # (Auto) 1.7 H (0.1-0.6) K/mm3 Eos # (Auto) 0.2 (0-0.3) K/mm3 Baso # (Auto) 0.1 (0.0-0.1) K/mm3 Abs Immat Gran (auto) 0.17 H (0.00-0.031) K/mm3 Absolute Neuts (auto) 14.1 H (1.3-6.7) K/mm3 Absolute Nucleated RBC 0.000 (0.0-0.012) K/mm3 Nucleated RBC % 0.0 (0.0-0.2) % PT INR APTT Sodium 135 L (137-145) mmol/L Potassium 4.8 (3.4-5.0) mmol/L Chloride 100 (98-107) mmol/L Carbon Dioxide 21 L (22-30) mmol/L Anion Gap 14 H (4-12) mmol/L BUN 37 H D (7-17) mg/dL Creatinine 1.30 H (0.7-1.0) mg/dL Estim Creat Clear Calc Not Reportable Estimated GFR 40 L (59 - ) Glucose 121 H (65-110) mg/dL Lactic Acid 1.3 (0.7-2.0) mmol/L Calcium 9.9 (8.4-10.2) mg/dL Total Bilirubin 0.6 (0.2-1.3) mg/dL AST 27 (14-36) U/L ALT 16 (6-35) U/L Alkaline Phosphatase 79 (38-126) U/L Ammonia (9-30) umol/L Total Creatine Kinase 28 L Cancelled (30-135) U/L NT-Pro-B Natriuret Pep 2810 H Cancelled (19.9-100) pg/mL Total Protein 8.6 H (6.3-8.2) g/dL Albumin 4.0 (3.5-5.1) g/dL Urine Color Yellow (Yellow) Urine Appearance Cloudy H (Clear) Urine pH 5.0 (5.0-9.0) Ur Specific [place] 1.014 (1.001-1.035) Urine Protein Negative (Negative) mg/dL Urine Glucose (UA) 3+ H (Negative) mg/dL Urine Ketones Negative (Negative) mg/dL Ur Blood (Man) Non-hemolyzed trace H (Negative) Urine Nitrate Negative (Negative) Urine Bilirubin Negative (Negative) Urine Urobilinogen 0.2 (<2.0) mg/dL Leukocyte Esterase Rfl 3+ H (Negative) MI/UL Urine RBC 3-5 H (0-2) /hpf Urine WBC 51-100 H (0-3) /hpf Ur Squamous Epith Cells None seen (Few) /hpf Urine Bacteria None seen /hpf Urine Casts 0-2 Urine Yeast (Budding) Present H (None) /hpf Urine Opiates Screen (Negative) Urine Methadone Screen (Negative) Ur Barbiturates Screen (Negative) Ur Phencyclidine Scrn (Negative) Ur Amphetamine Screen (Negative) U Benzodiazepines Scrn (Negative) Urine Cocaine Screen (Negative) U Cannabinoids Screen (Negative) Ethyl Alcohol (<10) mg/dL 03/26/ Range/Units 17:05 WBC (4.5-10.0) K/mm3 RBC (4.2-5.4) M/mm3 Hgb (12.0-15.0) g/dL Hct (37.0-47.0) % MCV (80-100) fl MCH (26-34) pg MCHC (32-36) g/dl RDW (11.5-14.5) % Plt Count (150-375) k/mm3 MPV (7.4-10.4) fl Immature Gran % (Auto) (0-0.5) % Neut % (Auto) (45.5-73.1) % Lymph % (Auto) (18.3-44.2) % Becker % (Auto) (2.6-8.5) % Eos % (Auto) (0-4.4) % Baso % (Auto) (0.2-1.2) % Lymph # (Auto) (0.9-3.2) K/mm3 Becker # (Auto) (0.1-0.6) K/mm3 Eos # (Auto) (0-0.3) K/mm3 Baso # (Auto) (0.0-0.1) K/mm3 Abs Immat Gran (auto) (0.00-0.031) K/mm3 Absolute Neuts (auto) (1.3-6.7) K/mm3 Absolute Nucleated RBC (0.0-0.012) K/mm3 Nucleated RBC % (0.0-0.2) % PT Pending INR Pending APTT Pending Sodium (137-145) mmol/L Potassium (3.4-5.0) mmol/L Chloride (98-107) mmol/L Carbon Dioxide (22-30) mmol/L Anion Gap (4-12) mmol/L BUN (7-17) mg/dL Creatinine (0.7-1.0) mg/dL Estim Creat Clear Calc Estimated GFR (59 - ) Glucose (65-110) mg/dL Lactic Acid (0.7-2.0) mmol/L Calcium (8.4-10.2) mg/dL Total Bilirubin (0.2-1.3) mg/dL AST (14-36) U/L ALT (6-35) U/L Alkaline Phosphatase (38-126) U/L Ammonia < 9 L (9-30) umol/L Total Creatine Kinase (30-135) U/L NT-Pro-B Natriuret Pep (19.9-100) pg/mL Total Protein (6.3-8.2) g/dL Albumin (3.5-5.1) g/dL Urine Color (Yellow) Urine Appearance (Clear) Urine pH (5.0-9.0) Ur Specific [place] (1.001-1.035) Urine Protein (Negative) mg/dL Urine Glucose (UA) (Negative) mg/dL Urine Ketones (Negative) mg/dL Ur Blood (Man) (Negative) Urine Nitrate (Negative) Urine Bilirubin (Negative) Urine Urobilinogen (<2.0) mg/dL Leukocyte Esterase Rfl (Negative) MI/UL Urine RBC (0-2) /hpf Urine WBC (0-3) /hpf Ur Squamous Epith Cells (Few) /hpf Urine Bacteria /hpf Urine Casts Urine Yeast (Budding) (None) /hpf Urine Opiates Screen Positive A (Negative) Urine Methadone Screen Negative (Negative) Ur Barbiturates Screen Negative (Negative) Ur Phencyclidine Scrn Negative (Negative) Ur Amphetamine Screen Negative (Negative) U Benzodiazepines Scrn Negative (Negative) Urine Cocaine Screen Negative (Negative) U Cannabinoids Screen Positive A (Negative) Ethyl Alcohol < 10 (<10) mg/dL Discharge Plan Discharge Clinical Impression: RENEA (acute kidney injury), UTI (urinary tract infection), Congestive heart failure Patient Disposition: Still a Patient Condition: Stable Patient Language: Mongolian Prescriptions: No Action (DME) [facility] See Rx Instructions .Route Qty: 1 0RF Rx Instructions: As directed ammonium lactate [AmLactin] 12 % lotion 1 applic topical DAILY Qty: 225 5RF (DME) lancet-gluc test strip-needles Combo Pack See Rx Instructions .Route Qty: 300 0RF Rx Instructions: As directed (DME) OneTouch Verio test strips Strip See Rx Instructions .Route Qty: 300 0RF Rx Instructions: use 1 tid to check blood sugar pantoprazole 40 mg tablet,delayed release (DR/EC) 40 mg PO DAILY Qty: 60 5RF metoprolol tartrate 100 mg tablet See Rx Instructions .ROUTE .COMPLEX Qty: 180 2RF Dose Instruction: Take 1 tablet by mouth twice daily Rx Instructions: Take 1 tablet by mouth twice daily atorvastatin 20 mg tablet See Rx Instructions .ROUTE .COMPLEX Qty: 90 2RF Dose Instruction: Take 1 tablet by mouth once daily Rx Instructions: Take 1 tablet by mouth once daily furosemide 80 mg tablet 80 mg PO DAILY Qty: 30 5RF glimepiride 4 mg tablet 4 mg PO QAM Qty: 90 1RF Rx Instructions: administer with breakfast clonidine HCl 0.3 mg tablet See Rx Instructions .ROUTE .COMPLEX Qty: 60 5RF Dose Instruction: Take 1 tablet by mouth twice daily Rx Instructions: Take 1 tablet by mouth twice daily duloxetine 60 mg capsule,delayed release(DR/EC) See Rx Instructions .ROUTE .COMPLEX Qty: 90 0RF Dose Instruction: Take 1 capsule by mouth once daily Rx Instructions: Take 1 capsule by mouth once daily spironolactone 25 mg tablet 25 mg PO DAILY Qty: 30 3RF buspirone 10 mg tablet 10 mg PO BID Qty: 60 5RF Rybelsus 7 mg tablet 7 mg PO DAILY Qty: 30 3RF dapagliflozin propanediol [Farxiga] 10 mg tablet 10 mg PO DAILY Qty: 90 3RF oxybutynin chloride 10 mg tablet extended release 24hr 10 mg PO DAILY Qty: 30 3RF gabapentin 300 mg capsule 300 mg PO DAILY Qty: 90 1RF pioglitazone 15 mg tablet 15 mg PO DAILY Qty: 90 1RF hydrocodone-acetaminophen 5-325 mg tablet 1 tablet PO Q6H PRN (Reason: pain) Qty: 120 0RF metformin 500 mg tablet extended release 24 hr See Rx Instructions .ROUTE .COMPLEX Qty: 180 1RF Dose Instruction: Take 2 tablets by mouth twice daily Rx Instructions: Take 2 tablets by mouth twice daily (DME) FreeStyle Yulia 2 Sensor Kit See Rx Instructions .ROUTE .COMPLEX Qty: 2 0RF Dose Instruction: USE DIRECTED Rx Instructions: USE DIRECTED Follow-up/Referrals: Mateo Alfaro MD [Primary Care Provider] -
--- NOTE | 2025-03-26 16:54 | ECG_ITS ---
Test Date: 2025-03-26 17:58:28 Measurements Intervals Arverne Rate: 93 P: 39 ME: 160 QRS: 12 QRSD: 85 T: 55 QT: 380 QTc: 475 Interpretive Statements SINUS RHYTHM T-WAVE ABNORMALITIES; CONSIDER SEPTAL ISCHEMIA Compared to ECG 11/24/2024 11:40:15 No significant changes Electronically Signed On 03-27-2025 18:47:24 CDT by Amrik Rodríguez M.D.
[2025-03-26 17:17] LABS: Hematocrit 39.4 % (37.0-47.0); Hemoglobin 12.8 g/dL (12.0-15.0); Immature Granulocyte Percent A 0.9 % (0-0.5); Lymphocytes Absolute Auto 2.81 K/mm3 (0.9-3.2); Mean Corpuscular HGB Conc 32.5 g/dl (32-36); Mean Corpuscular Hemoglobin 28.6 pg (26-34); Mean Corpuscular Volume 88.1 fl (80-100); Nucleated Red Blood Cells Absolute Auto 0.000 K/mm3 (0.0-0.012); Nucleated Red Blood Cells Perc 0.0 % (0.0-0.2); Platelet Count Result 515 k/mm3 (150-375); Red Blood Count 4.47 M/mm3 (4.2-5.4); White Blood Count 19.0 K/mm3 (4.5-10.0)
[2025-03-26 17:34] LABS: Ammonia < 9 umol/L (9-30)
[2025-03-26 17:38] LABS: Alanine Aminotransferase 16 U/L (6-35); Albumin Level 4.0 g/dL (3.5-5.1); Alkaline Phosphatase 79 U/L (38-126); Anion Gap 14 mmol/L (4-12); Aspartate Amino Transferase 27 U/L (14-36); Bilirubin,Total 0.6 mg/dL (0.2-1.3); Blood Urea Nitrogen 37 mg/dL (7-17); Calcium 9.9 mg/dL (8.4-10.2); Carbon Dioxide 21 mmol/L (22-30); Chloride 100 mmol/L (98-107); Creatine Kinase 28 U/L (30-135); Estimated Glomerular Filt Rate 40; Glucose 121 mg/dL (65-110); Potassium 4.8 mmol/L (3.4-5.0); Sodium 135 mmol/L (137-145); Total Protein 8.6 g/dL (6.3-8.2)
[2025-03-26 17:46] LABS: NT Pro B Type Natriuretic Pept 2810 pg/mL (19.9-100)
[2025-03-26 17:48] LABS: Add Urine Microscopic? YES; Appearance Urine Cloudy (Clear); Budding Yeast Urine Present /hpf; Glucose Urine UA 3+ mg/dL (Negative); Leukocyte Esterase Ur 3+ LEU/UL (Negative); Nitrate Urine Negative (Negative); Non Pathogenic Casts 0-2; Specific Grav Ur 1.014 (1.001-1.035)
[2025-03-26 17:54] LABS: Cannabinoid Screen Urine Positive (Negative)
--- OUTSIDE RECORDS SUMMARY | 2025-03-26 18:02 | XMS_ITS | Clinical Summary ---
Author Organization [facility] Quirino bobby [facility] Address [address] [place] [address] Care Team Providers Care Valet Parking Attendant Name Role Phone Mateo Alfaro MD Primary Care Provider [phone] Allergies Active Allergy Reactions Criticality Noted Date [...] on file Legal Sex Female 9:41 AM INK GRINDER Gender Identity Not on file Sexual Orientation [...] 165.1 cm (5' 5) 08/15/2023 1:57 PM INK GRINDER Body Mass Index 27.62 08/15/2023 1:57 PM INK GRINDER Plan of Treatment Upcoming Encounters Date Type Department Care Team (Late st Contact Info) Description 04/12/2025 10:15 AM CDT Office Visit [facility] Oncology and Hematology - [place] [address] [facility] [place] [address] Emerson Souza MD [address] [place] [address] Health Maintenance Due Date Last [...] MEDICAID [place] MEDICARE PART A AND B [employer] P[employer] [place] Care Teams Valet Parking Attendant Relationship Specialty Start Date End Date Mateo Alfaro MD PCP - General Family Practice 08/15/23
--- NOTE | 2025-03-26 18:44 | P.HP_ITS ---
H&P: HPI History of Present Illness Date/Time: 03/26/25 18:44 Chief Complaint: Weakness Narrative: 75-year-old female past medical history of diabetes type 2, NSTEMI, hypertension, for myalgia and RA presents the hospital with increased weakness. Patient states that she is here for the same old reasons that always happen. History eyes very limited patient is a poor historian. She states she does not other medications as she is taking. She states that her takes care of her. Like patient has extremely limited mobility and is wheelchair to bedbound. Patient denies nausea or vomiting. Fever chills. Lab work in the ED shows leukocytosis at 19.0, platelets of 515, sodium 135, carbon dioxide 21, anion gap 14, BUN of 37, creatinine of 1.30 with baseline being around 1.9, GFR 40, lactic acid of 1.3, CK 28, BUN 2000 afternoon 10, UA shows 3+ leukocyte esterase negative for nitrates, 51-100 wbc's yeast present U tox positive for cannabinoids and opioids ethanol level negative. EKG shows sinus rhythm. Sounds like patient is mostly bed-bound at home and has been is having trouble caring for her. Case management consulted. Review of Systems Review of Systems: 12 systems were reviewed and are negativ e except for as per HPI. [facility] Past Medical History Medical History Eczema Osteoarthritis Venous insufficiency (chronic) (peripheral) DM2 (diabetes mellitus, type 2) Non-ST elevated myocardial infarction (non-STEMI) Osteoarthritis of hands, bilateral Bilateral primary osteoarthritis of knee Essential (primary) hypertension Fibromyalgia Generalized anxiety disorder Arthralgia of multiple joints Surgical History Surgical History History of tubal ligation (~1989) Family History Family History Grandparent Acute myocardial infarction Cerebrovascular accident Heart disease Mother Colon polyp Diabetes mellitus Pancreatic adenocarcinoma Other Depression Hypertension Neuralgia of both lower extremities Social History Social History Social History: Surrogate medical decision maker: Shravan Ramsay, spouse. Code status: Full code. Smoking status: Former smoker Tobacco type: cigarettes Second hand tobacco smoke exposure: No Additional smoking assessment comments: current every day marijuana pipe smoker Alcohol intake: never Substance use: current Substance use type: marijuana Last use: 03/26/25 Do You Feel Safe in your Home?: Yes Lack of Transportation: No Lack of Food: Never True Current Housing: I Have Housing Concerned About Future Housing: No Difficulty Paying Gas/Electric Bills: No Difficulty Paying for Meds: No Currently Unemployed: No Education: Associate Degree Difficulty w/ Childcare or Family Care: No Living arrangements: with family Occupation/Education: retired Spiritual care concerns: No Agree to blood products: Yes Meds Home Medications and Allergies Home Medications ?Medication ?Instructions ?Recorded ?Confirmed ?Type lancet with blood glucose test #300 ea 01/29/23 03/26/25 Rx strips and pen needles combo pack blood sugar diagnostic (OneTouch #300 ea 05/20/23 03/26/25 Rx Verio test strips) flash glucose scanning reader #1 ea 05/20/23 03/26/25 Rx (FreeEncapsonyle Yulia 2 [place]) pantoprazole 40 mg tablet,delayed 40 mg PO DAILY #60 tabs 05/21/24 03/26/25 Rx release metoprolol tartrate 100 mg tablet See Rx Instructions .Route 07/12/24 03/26/25 Rx .COMPLEX #180 tabs atorvastatin 20 mg tablet See Rx Instructions .Route 07/24/24 03/26/25 Rx .COMPLEX #90 tabs ammonium lactate 12 % lotion 1 applic topical DAILY #225 grams 10/26/24 03/26/25 Rx (AmLactin) clonidine HCl 0.3 mg tablet See Rx Instructions .Route 12/27/24 03/26/25 Rx .COMPLEX #60 tabs duloxetine 60 mg capsule,delayed See Rx Instructions .Route 01/11/25 03/26/25 Rx release .COMPLEX #90 ea spironolactone 25 mg tablet 25 mg PO DAILY #30 tabs 01/18/25 03/26/25 Rx buspirone 10 mg tablet 10 mg PO BID #60 tabs 02/06/25 03/26/25 Rx semaglutide 7 mg tablet (Rybelsus) 7 mg PO DAILY #30 tabs 02/15/25 03/26/25 Rx dapagliflozin propanediol 10 mg 10 mg PO DAILY #90 tabs 02/17/25 03/26/25 Rx tablet (Farxiga) oxybutynin chloride 10 mg 10 mg PO DAILY #30 tabs 03/02/25 03/26/25 Rx tablet,extended release 24 hr gabapentin 300 mg capsule 300 mg PO DAILY #90 caps 03/03/25 03/26/25 Rx hydrocodone 5 mg-acetaminophen 325 1 tablet PO Q6H PRN pain #120 tabs 03/03/25 03/26/25 Rx mg tablet pioglitazone 15 mg tablet 15 mg PO DAILY #90 tabs 03/03/25 03/26/25 Rx metformin 500 mg tablet,extended See Rx Instructions .Route 03/07/25 03/26/25 Rx release 24 hr .COMPLEX #180 tabs flash glucose sensor (FreeStyle #2 ea 03/23/25 03/26/25 Rx Yulia 2 Sensor kit) baclofen 10 mg tablet 10 mg PO TID PRN muscle spasm 03/26/25 03/26/25 History Allergies Allergy/AdvReac Type Severity Reaction Status Date / Time amoxicillin (From Augmentin) Allergy Unknown Verified 03/26/25 12:36 clavulanic acid (From Allergy Unknown Verified 03/26/25 12:36 Augmentin) Vital Signs Vital Signs - 24 hr 03/26/25 13:19 03/26/25 16:45 Temperature 98.4 F 97.8 F Pulse Rate 106 H 84 Respiratory Rate 17 16 Blood Pressure 162/105 H 142/82 H Pulse Oximetry 98 96 Oxygen Delivery Room Air Room Air Exam Narrative: General: Chronically ill no acute distress HEENT: normocephalic, atraumatic. Mucous membranes moist. EOMI, PERRLA, bilateral sclera anicteric, no conjunctival injection. Neck supple without JVD, lymphadenopathy, or bruit. Respiratory: Course to ascultation bilaterally. Cardiovascular: Regular rate and rhythm, normal S1-S2 upon ascultation. No murmurs, rubs, or clicks. PMI is nondisplaced, capillary refill less than 3 second. Abdomen: Soft, round, no pulsatile masses, nondistended and nontender. No rebound, no guarding. No CVA tenderness, no hepatosplenomegaly. Bowel sounds present to all four quadrants. No high pitch or tinkling sounds, resonant to percussion. Extremities: No cyanosis, clubbing, or edema present. Pulses are palpable 2/2. Active ROM to all four extremities. Neuro: Alert and orientated x 4. PERRLA. Cranial nerves 2-12 intact without focal deficit. Skin: Warm, dry, and intact, without rash, erythema, or lesion. Psych: pleasant, cooperative, normal speech, normal affect, no hallucinations, no dysarthia H&P: Results Labs Labs: Short CBC 03/26/25 Range/Units 17:03 WBC 19.0 H (4.5-10.0) K/mm3 Hgb 12.8 (12.0-15.0) g/dL Hct 39.4 (37.0-47.0) % Plt Count 515 H (150-375) k/mm3 BMP 03/26/25 17:03 Sodium 135 L Potassium 4.8 Chloride 100 Carbon Dioxide 21 L BUN 37 H D Creatinine 1.30 H Glucose 121 H Calcium 9.9 Cardiac Enzymes 03/26/25 03/26/25 Range/Units 17:03 17:04 Total Creatine Kinase 28 L Cancelled (30-135) U/L Liver Function 03/26/25 Range/Units 17:03 Total Bilirubin 0.6 (0.2-1.3) mg/dL AST 27 (14-36) U/L ALT 16 (6-35) U/L Alkaline Phosphatase 79 (38-126) U/L Albumin 4.0 (3.5-5.1) g/dL Urine 03/26/25 Range/Units 17:03 Urine Color Yellow (Yellow) Urine Appearance Cloudy H (Clear) Urine pH 5.0 (5.0-9.0) Ur Specific [place] 1.014 (1.001-1.035) Urine Protein Negative (Negative) mg/dL Urine Glucose (UA) 3+ H (Negative) mg/dL Assessment and Plan Assessment and plan (1) UTI (urinary tract infection): Code(s): N39.0 - Urinary tract infection, site not specified Status: Acute Assessment and Plan: IV Rocephin Culture and sensitivity pending IVF (2) RENEA (acute kidney injury): Code(s): N17.9 - Acute kidney failure, unspecified Status: Acute Assessment and Plan: IVF BMP in the morning (3) Impaired swallowing: Code(s): R13.10 - Dysphagia, unspecified Status: Acute Assessment and Plan: NPO strict Swallow eval Hold all home meds until evaluated (4) Congestive heart failure: Code(s): I50.9 - Heart failure, unspecified Status: Acute Assessment and Plan: Holding diuretics due to infection and dehydration (5) Hypoglycemia: Code(s): E16.2 - Hypoglycemia, unspecified Status: Acute Assessment and Plan: D5 NS at 40 Accu-Cheks q.6 While NPO (6) Constipation: Qualifiers: Constipation type: unspecified constipation type Qualified Code(s): K59.00 - Constipation, unspecified Code(s): K59.00 - Constipation, unspecified Status: Resolved Assessment and Plan: With slow transit time she will need aggressive bowel regiment once able to take p.o. (7) DM2 (diabetes mellitus, type 2): Qualifiers: Diabetes mellitus complication status: with hyperglycemia Diabetes mellitus penitentiary insulin use: without predatory animal exterminator use Qualified Code(s): E11.65 - Type 2 diabetes mellitus with hyperglycemia Code(s): E11.9 - Type 2 diabetes mellitus without complications Status: Chronic Assessment and Plan: Patient is NPO Hold metformin while in hospital Accu-Cheks q.6 SSI (8) Essential (primary) hypertension: Code(s): I10 - Essential (primary) hypertension Status: Chronic Assessment and Plan: Hydralazine p.r.n. (9) Pressure ulcer: Code(s): L89.90 - Pressure ulcer of unspecified site, unspecified stage Status: Acute Assessment and Plan: Wound care consulted Quality VTE Prophylaxis VTE prophylaxis: mechanical ordered and pharmacologic ordered Hospitalist MIPS Advance Care Plan I have confirmed that the patient's Advanced Care Plan is present, code status is documented, or surrogate decision maker is listed in patient medical record.: Yes Medication Reconciliation I have utilized all available resources to obtain, update and review the patients current medications (includes all prescriptions, OTC, herbals, cannabis, and nutritional supplements).: Yes
[2025-03-26] MEDS: SODIUM CHLORIDE 0.9% IV 1,000 ML 999 ML IV CONT ×2 (19:09→19:10)
[2025-03-26] MEDS: FUROSEMIDE INJ 40 MG/4 ML VIAL IV PUSH (19:10)
[2025-03-26] MEDS: cefTRIAXone 1 GM in SODIUM CHLORIDE 0.9% IV 50 ML 100 ML IVPB (19:10)
[2025-03-26] MEDS: MORPHINE SULFATE (*CRX) 4 MG/ML INJ IV PUSH (19:19)
--- NOTE | 2025-03-26 19:34 | PC.NURSE ---
pt takent to CT in stretcher by robotics technologist.
[2025-03-26 19:44] LABS: CRP 6.1 mg/dL (<1.0)
[2025-03-26] MEDS: SODIUM CHLORIDE 0.9% IV 1,000 ML 125 ML IV CONT (20:07)
--- NOTE | 2025-03-26 20:12 | PC.NURSE ---
pt provided with apple juice
[2025-03-26 20:28] LABS: INR 1.1; Partial Thromboplastin Time 34.7 Seconds (22.3-36.8); Prothrombin Time 14.6 Seconds (11.1-14.7)
--- NOTE | 2025-03-26 20:52 | PC.NURSE ---
MD Moscoso made aware BG 75, pt reports difficulty swallowing. Refer to MAR for new orders.
[2025-03-26] MEDS: DEXTROSE 5%/0.9% SOD CHL 1,000 ML 40 ML IV CONT (21:16)
--- NOTE | 2025-03-26 21:37 | ADMGEN ---
This patient, Aggie Donald, was admitted to Medical Room 254-01. Patient/family oriented to hospital policies and general routines including ID bracelet, bed and alarms, visiting hours, pain management, procedures, bathroom and other care routines, personal items, smoking policy, room service/diet, and visiting hours. Information on how to activate the Rapid Response Team has been discussed. Patient/Family are encouraged to report perceived risks to care and to ask questions if they do not understand what they are told or what they should do.
--- NOTE | 2025-03-26 22:47 | WNDPHOTO ---
PHOTO ONLY - See Nursing Notes and/ or assessments for documentation.
[2025-03-26] MEDS: METOPROLOL TARTRATE INJ 5 MG/5 ML VIAL IV PUSH (23:13)
[2025-03-27] VITALS (14 sets, daily range): BP systolic 161–193; BP diastolic 82–112; PULSE 101–140; RESP 16–20; TEMP 36.1–36.6; O2SAT 98–100
[2025-03-27 05:25] LABS: Hematocrit 39.2 % (37.0-47.0); Hemoglobin 12.3 g/dL (12.0-15.0); Immature Granulocyte Percent A 0.7 % (0-0.5); Lymphocytes Absolute Auto 3.16 K/mm3 (0.9-3.2); Mean Corpuscular HGB Conc 31.4 g/dl (32-36); Mean Corpuscular Hemoglobin 28.7 pg (26-34); Mean Corpuscular Volume 91.6 fl (80-100); Nucleated Red Blood Cells Absolute Auto 0.000 K/mm3 (0.0-0.012); Nucleated Red Blood Cells Perc 0.0 % (0.0-0.2); Platelet Count Result 482 k/mm3 (150-375); Red Blood Count 4.28 M/mm3 (4.2-5.4); White Blood Count 18.8 K/mm3 (4.5-10.0)
[2025-03-27 05:50] LABS: Anion Gap 15 mmol/L (4-12); Blood Urea Nitrogen 29 mg/dL (7-17); Calcium 9.2 mg/dL (8.4-10.2); Carbon Dioxide 20 mmol/L (22-30); Chloride 103 mmol/L (98-107); Estimated CRCL calculation 33 ml/min; Estimated Glomerular Filt Rate 44; Glucose 117 mg/dL (65-110); Potassium 3.8 mmol/L (3.4-5.0); Sodium 138 mmol/L (137-145)
[2025-03-27] MEDS: METOPROLOL TARTRATE INJ 5 MG/5 ML VIAL IV PUSH ×3 (06:08→17:33)
[2025-03-27] MEDS: SODIUM CHLORIDE 0.9% IV 1,000 ML 85 ML IV CONT (06:08)
[2025-03-27] MEDS: ENOXAPARIN 40 MG/0.4 ML SYRINGE SUB-Q (09:22)
[2025-03-27] MEDS: EUCERIN CREAM 120 GM JAR 1 APPLIC TOPICAL (09:22)
--- NOTE | 2025-03-27 10:43 | PCSTNOTE ---
Please refer to the Bedside Swallow Evaluation in the EMR. Please note, silent aspiration cannot be ruled out at bedside. This 75 year old female patient was evaluated at bedside to ensure swallowing safety during oral intake. The pt was admitted to [facility] on 03/26 d/t weakness. An oral motor exam was completed. The pt demonstrates appropriate range of mobility and strength for oral intake and has all dentition. Per PAUL Al, upon arrival to the hospital the pts verbalized that the pt had a coughing spell on thin liquids (apple juice) at home. The pt was then made NPO and a BSE was ordered. Pt verbalized that she has not had trouble swallowing in the past and denies dysphagia at this time. Trials of thin liquid (ice chips/water), mixed consistency (fruit cocktail), and pureed consistency (pudding) were administered at bedside via spoon and straw. The pt was also observed taking a pill with a straw sip of water. Throughout all trials of different consistencies, the pts vocal quality remained clear. The pt showed s/s of aspiration on thin liquids (water), the pureed consistency, and the mixed consistency. Delayed triggering and reduced laryngeal elevation were noted on thin liquid and mixed consistencies. The pt exhibited a delayed cough which continued ~5-10 minutes following oral intake trials. The pt demonstrated slight distress during the last trial of mixed consistencies so the BSE was terminated at that time. Please note that silent aspiration cannot be ruled out at bedside. Given the results of this assessment, it is recommended this pt remain NPO until the completion of a Modified Barium Swallow Study (MBSS). The MBSS is unable to be completed today, 03/27 and tomorrow, 03/28 due to no radiologist being on site. MBSS to be completed on Saturday, 03/29. Mirian Yost NP and PAUL Al were notified of BSE results and recommendations. Thank you for this referral.
--- NOTE | 2025-03-27 12:45 | P.PNIM_ITS ---
Progress Note: A&P Assessment and Plan (1) UTI (urinary tract infection): Code(s): N39.0 - Urinary tract infection, site not specified Status: Acute Assessment and Plan: IV Rocephin Culture and sensitivity pending IVF 03/27/25: * Continue IV Rocephin * Await Urine cultures. (2) RENEA (acute kidney injury): Code(s): N17.9 - Acute kidney failure, unspecified Status: Acute Assessment and Plan: IVF BMP in the morning 03/27/25: * Discontinue NS at 100 ml/hr and start D5NS at 75 ml/hr as pt was hypoglycemic at some point. * Hold oral hypoglycemics * Low dose correction for Q6 hrs as pt is NPO. * Interval improvement in renal function present w/Cr now 1.2. Continue to monitor and trend. (3) Impaired swallowing: Code(s): R13.10 - Dysphagia, unspecified Status: Acute Assessment and Plan: NPO strict Swallow eval Hold all home meds until evaluated 03/27/25: * Pt failed bedside swallow eval. * Modified Barium Swallow is ordered. * NPO until Barium swallow performed. (4) Congestive heart failure: Code(s): I50.9 - Heart failure, unspecified Status: Chronic Assessment and Plan: Holding diuretics due to infection and dehydration 03/27/25: * Pt appears to be euvolemic. No s/s of fluid overload. * Continue to hold current meds. (5) Hypoglycemia: Code(s): E16.2 - Hypoglycemia, unspecified Status: Acute Assessment and Plan: D5 NS at 40 Accu-Cheks q.6 While NPO 03/27/25: * Change D5NS rate to 75 ml/hr and discontinue NS. (6) Constipation: Qualifiers: Constipation type: unspecified constipation type Qualified Code(s): K59.00 - Constipation, unspecified Code(s): K59.00 - Constipation, unspecified Status: Resolved Assessment and Plan: With slow transit time she will need aggressive bowel regiment once able to take p.o. (7) DM2 (diabetes mellitus, type 2): Qualifiers: Diabetes mellitus long chain quiller tender insulin use: without mcc use Diabetes mellitus complication status: with hyperglycemia Qualified Code(s): E11.65 - Type 2 diabetes mellitus with hyperglycemia Code(s): E11.9 - Type 2 diabetes mellitus without complications Status: Chronic Assessment and Plan: Patient is NPO Hold metformin while in hospital Accu-Cheks q.6 SSI (8) Essential (primary) hypertension: Code(s): I10 - Essential (primary) hypertension Status: Chronic Assessment and Plan: Hydralazine p.r.n. (9) Pressure ulcer: Code(s): L89.90 - Pressure ulcer of unspecified site, unspecified stage Status: Acute Assessment and Plan: Wound care consulted Time Spent With Patient Time with patient: 15 - 25 minutes Subjective Date/time seen: 03/27/25 12:45 Interval history: This is a very pleasant, chronically ill appearing female pt lying supine in bed at this time in no acute distress. She had a swallow evaluation with Speech therapy today and they are recommending a Modified Barium swallow evaluation as pt continues to cough. This unfortunately cannot be performed until Saturday. She is being started on Rocephin for evidence of UTI and Urine culture is pending as are blood cultures. No new complaints from pt other than just feeling generally weak and unwell. Review of Systems Review of Systems: All systems reviewed & are unremarkable except as noted in HPI and below Exam Narrative: General: Chronically ill no acute distress, lying supine at this time. HEENT: normocephalic, atraumatic. Dry mucous membranes. No oral lesions. No LN. Respiratory: Diminished in bases bilaterally and coarse to auscultation. Cardiovascular: RRR, S1 and S2 present without S3, S4, m,r,g,h or displacement of PMI. No peripheral edema. Abdomen: Soft, round, no pulsatile masses, nondistended and nontender. No rebound, no guarding. No CVA tenderness, no hepatosplenomegaly. Bowel sounds present to all four quadrants. No high pitch or tinkling sounds, resonant to percussion. Extremities: No cyanosis, clubbing, or edema present. Pulses are palpable 2/2. Active ROM to all four extremities. Neuro: Alert and orientated x 4. PERRLA. Cranial nerves 2-12 intact without focal deficit. Skin: Warm, dry, and intact, there is some erythema and excess dryness to the distal BLE with some small scabs. No feel of warmth. No drainage. Psych: pleasant, cooperative, normal speech, normal affect, no hallucinations, no dysarthia Objective Data Vital Signs Vital Signs: Vital Signs - 24 hr 03/26/25 13:19 03/26/25 16:45 03/26/25 18:00 Temperature 98.4 F 97.8 F Pulse Rate 106 H 84 93 Respiratory Rate 17 16 17 Blood Pressure 162/105 H 142/82 H Pulse Oximetry 98 96 100 Oxygen Delivery Room Air Room Air 03/26/25 18:01 03/26/25 18:15 03/26/25 18:30 Temperature Pulse Rate 95 95 94 Respiratory Rate 12 12 11 L Blood Pressure 144/81 H Pulse Oximetry 100 100 Oxygen Delivery 03/26/25 18:45 03/26/25 19:02 03/26/25 19:09 Temperature 98.1 F Pulse Rate 96 95 Respiratory Rate 10 L 12 8 L Blood Pressure 136/88 157/86 H Pulse Oximetry 99 98 Oxygen Delivery 03/26/25 20:00 03/26/25 20:37 03/26/25 20:45 Temperature Pulse Rate 107 H 108 H Respiratory Rate 11 L 10 L Blood Pressure Pulse Oximetry 100 100 100 Oxygen Delivery 03/26/25 21:37 03/26/25 22:00 03/26/25 23:13 Temperature 98.1 F Pulse Rate 107 H 107 H Respiratory Rate 20 Blood Pressure 154/91 H Pulse Oximetry 92 Oxygen Delivery Room Air 03/27/25 00:00 03/27/25 04:00 03/27/25 06:00 Temperature 97.9 F Pulse Rate 102 H 101 H 102 H Respiratory Rate 20 Blood Pressure 161/82 H Pulse Oximetry 98 Oxygen Delivery 03/27/25 06:08 03/27/25 08:00 03/27/25 09:30 Temperature Pulse Rate 101 H 102 H Respiratory Rate Blood Pressure Pulse Oximetry Oxygen Delivery Room Air 03/27/25 12:04 Temperature Pulse Rate 110 H Respiratory Rate Blood Pressure Pulse Oximetry Oxygen Delivery Intake/Output Intake/Output: Intake & Output 03/24/25 03/25/25 03/26/25 03/27/25 23:59 23:59 23:59 23:59 Intake Total 1800 1204.7 Output Total 2600 1350 Balance -800 -145.3 Meds/Results Medications: Active Medications Generic Name Dose Route Start Last Admin Trade Name Freq PRN Reason Stop Dose Admin Acetaminophen 650 mg 03/26/25 18:49 Acetaminophen 325 Mg Tablet PO Q4H PRN Mild Pain (1-3) or Fever Hydrocodone Bitart/Acetaminophen 1 tab 03/26/25 18:49 Hydrocodone/Acetaminophen (*Crx) 5-325 Mg Tablet PO Q4H PRN Moderate Pain (4-6) Hydrocodone Bitart/Acetaminophen 1 tab 03/27/25 09:14 Hydrocodone/Acetaminophen (*Crx) 5-325 Mg Tablet PO Q6H PRN pain Atorvastatin Calcium 20 mg 03/27/25 09:30 03/27/25 09:35 Atorvastatin 20 Mg Tablet BY MOUTH Not Given DAILY [facility] Baclofen 10 mg 03/27/25 09:30 Baclofen 10 Mg Tablet PO TID PRN muscle spasm Buspirone HCl 10 mg 03/27/25 09:30 03/27/25 09:35 Buspirone Hcl 10 Mg Tablet PO Not Given BID [facility] Clonidine HCl 0.3 mg 03/27/25 09:30 03/27/25 12:03 Clonidine Hcl 0.1 Mg Tablet PO Not Given TID [facility] Dextrose 12.5 gm 03/26/25 18:49 Dextrose 50% 25 Gm/50 Ml Syringe IV PUSH PRN PRN Hypoglycemia Protocol Diphenhydramine HCl 12.5 mg 03/26/25 22:10 Diphenhydramine Hcl Inj 50 Mg/Ml Vial IV PUSH Q6H PRN Itching Docusate Sodium 100 mg 03/27/25 09:00 Docusate Sodium 100 Mg Capsule PO BID [facility] Duloxetine HCl 60 mg 03/27/25 09:30 03/27/25 09:35 Duloxetine Hcl 60 Mg Capsule.Dr PO Not Given DAILY [facility] Empagliflozin 25 mg 03/28/25 09:30 Empagliflozin 25 Mg Tablet BY MOUTH DAILY [facility] Enoxaparin Sodium 40 mg 03/27/25 09:00 03/27/25 09:22 Enoxaparin 40 Mg/0.4 Ml Syringe SUB-Q 40 mg DAILY [facility] Administration Gabapentin 300 mg 03/27/25 09:30 03/27/25 09:35 Gabapentin 300 Mg Capsule PO Not Given DAILY [facility] Glucagon 1 mg 03/26/25 18:49 Glucagon For Inj 1 Mg Vial IM PRN PRN Hypoglycemia Protocol Glucose 15 gm 03/26/25 18:49 Glucose Oral Gel 15 Gm Of Glucse In 37.5 Gm Tube PO PRN PRN Hypoglycemia Protocol Hydralazine HCl 10 mg 03/26/25 22:42 Hydralazine Hcl 20 Mg/Ml Vial IV PUSH Q8H PRN Blood Pressure - High Dextrose 1,000 mls @ 100 mls/hr 03/26/25 18:49 Dextrose 5% 1,000 Ml IVPB PRN PRN Hypoglycemia Protocol Dextrose/Sodium Chloride 1,000 mls @ 75 mls/hr 03/26/25 20:50 03/27/25 10:21 Dextrose 5% Sodium Chloride 0.9% IV CONT 75 mls/hr .[id number] [facility] Infusion Insulin Aspart 2 - 5 units 03/27/25 08:00 03/27/25 12:03 Insulin Aspart (*Bkc) 100 Units/Ml SUB-Q Not Given TIDWM [facility] Protocol Insulin Aspart 1 - 2 units 03/26/25 21:00 03/26/25 21:40 Insulin Aspart (*Bkc) 100 Units/Ml SUB-Q Not Given HS [facility] Protocol Metoprolol Tartrate 5 mg 03/27/25 00:00 03/27/25 12:04 Metoprolol Tartrate Inj 5 Mg/5 Ml Vial IV PUSH 5 mg Q6HR [facility] Administration Metoprolol Tartrate 50 mg 03/27/25 09:30 03/27/25 09:35 Metoprolol Tartrate 50 Mg Tab PO Not Given Q12HR [facility] Multi-Ingred Cream/Lotion/Oil/Oint 1 applic 03/27/25 09:00 03/27/25 09:22 Eucerin Cream 120 Gm Jar TOPICAL 1 applic DAILY [facility] Administration Oxybutynin Chloride 10 mg 03/27/25 09:30 03/27/25 09:35 Oxybutynin Chloride Xl 5 Mg Tab.Er.24 PO Not Given DAILY [facility] Pantoprazole Sodium 40 mg 03/27/25 09:30 03/27/25 09:35 Pantoprazole 40 Mg Tablet PO Not Given DAILY [facility] Spironolactone 25 mg 03/27/25 09:30 03/27/25 09:35 Spironolactone 25 Mg Tablet PO Not Given DAILY [facility] Radiology Results: ITS Impressions Head CT 03/26/25 19:52 IMPRESSION: 1. 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 No acute intracranial process. 2. Age-related changes including mild diffuse volume loss and mild scattered white matter hypoattenuation consistent with chronic small vessel ischemic disease. Chest/Abdomen/Pelvis CT 03/26/25 20:06 IMPRESSION: 1. Findings suspicious for cystitis and right-sided ascending urinary tract infection with early polynephritis at the upper pole the right kidney. Correlate with urinalysis. 2. Mild bilateral hydronephrosis extending to the bladder which suggests either chronic outlet obstruction or neurogenic bladder. 3. Edematous wall thickening of the sigmoid and distal descending colon suspicious for colitis. 4. Stable appearance of mild UIP pattern chronic interstitial lung disease with no pulmonary edema or other acute cardiopulmonary disease. Labs Labs: Laboratory Results - last 24 hr 03/26/25 03/26/25 03/26/25 17:03 17:03 17:04 WBC 19.0 H RBC 4.47 Hgb 12.8 Hct 39.4 MCV 88.1 MCH 28.6 MCHC 32.5 RDW 13.7 Plt Count 515 H MPV 9.9 Immature Gran % (Auto) 0.9 H Neut % (Auto) 74.4 H Lymph % (Auto) 14.8 L Emery % (Auto) 8.7 H Eos % (Auto) 0.8 Baso % (Auto) 0.4 Lymph # (Auto) 2.81 Emery # (Auto) 1.7 H Eos # (Auto) 0.2 Baso # (Auto) 0.1 Abs Immat Gran (auto) 0.17 H Absolute Neuts (auto) 14.1 H Absolute Nucleated RBC 0.000 Nucleated RBC % 0.0 PT INR APTT Sodium 135 L Potassium 4.8 Chloride 100 Carbon Dioxide 21 L Anion Gap 14 H BUN 37 H D Creatinine 1.30 H Estim Creat Clear Calc Not Reportable Estimated GFR 40 L Glucose 121 H POC Capillary Glucose Lactic Acid 1.3 Calcium 9.9 Total Bilirubin 0.6 AST 27 ALT 16 Alkaline Phosphatase 79 Ammonia Total Creatine Kinase 28 L Cancelled C-Reactive Protein 6.1 H NT-Pro-B Natriuret Pep 2810 H Cancelled Total Protein 8.6 H Albumin 4.0 Urine Color Yellow Urine Appearance Cloudy H Urine pH 5.0 Ur Specific [place] 1.014 Urine Protein Negative Urine Glucose (UA) 3+ H Urine Ketones Negative Ur Blood (Man) Non-hemolyzed trace H Urine Nitrate Negative Urine Bilirubin Negative Urine Urobilinogen 0.2 Leukocyte Esterase Rfl 3+ H Urine RBC 3-5 H Urine WBC 51-100 H Ur Squamous Epith Cells None seen Urine Bacteria None seen Urine Casts 0-2 Urine Yeast (Budding) Present H Urine Opiates Screen Urine Methadone Screen Ur Barbiturates Screen Ur Phencyclidine Scrn Ur Amphetamine Screen U Benzodiazepines Scrn Urine Cocaine Screen U Cannabinoids Screen Ethyl Alcohol 03/26/25 03/26/25 03/26/25 17:05 20:02 20:06 WBC RBC Hgb Hct MCV MCH MCHC RDW Plt Count MPV Immature Gran % (Auto) Neut % (Auto) Lymph % (Auto) Emery % (Auto) Eos % (Auto) Baso % (Auto) Lymph # (Auto) Emery # (Auto) Eos # (Auto) Baso # (Auto) Abs Immat Gran (auto) Absolute Neuts (auto) Absolute Nucleated RBC Nucleated RBC % PT 14.6 INR 1.1 APTT 34.7 Sodium Potassium Chloride Carbon Dioxide Anion Gap BUN Creatinine Estim Creat Clear Calc Estimated GFR Glucose POC Capillary Glucose 75 Lactic Acid Calcium Total Bilirubin AST ALT Alkaline Phosphatase Ammonia < 9 L Total Creatine Kinase C-Reactive Protein NT-Pro-B Natriuret Pep Total Protein Albumin Urine Color Urine Appearance Urine pH Ur Specific [place] Urine Protein Urine Glucose (UA) Urine Ketones Ur Blood (Man) Urine Nitrate Urine Bilirubin Urine Urobilinogen Leukocyte Esterase Rfl Urine RBC Urine WBC Ur Squamous Epith Cells Urine Bacteria Urine Casts Urine Yeast (Budding) Urine Opiates Screen Positive A Urine Methadone Screen Negative Ur Barbiturates Screen Negative Ur Phencyclidine Scrn Negative Ur Amphetamine Screen Negative U Benzodiazepines Scrn Negative Urine Cocaine Screen Negative U Cannabinoids Screen Positive A Ethyl Alcohol < 10 03/26/25 03/27/25 03/27/25 21:28 04:49 07:52 WBC 18.8 H RBC 4.28 Hgb 12.3 Hct 39.2 MCV 91.6 MCH 28.7 MCHC 31.4 L RDW 14.0 Plt Count 482 H MPV 9.7 Immature Gran % (Auto) 0.7 H Neut % (Auto) 70.4 Lymph % (Auto) 16.8 L Emery % (Auto) 10.1 H Eos % (Auto) 1.4 Baso % (Auto) 0.6 Lymph # (Auto) 3.16 Emery # (Auto) 1.9 H Eos # (Auto) 0.3 Baso # (Auto) 0.1 Abs Immat Gran (auto) 0.13 H Absolute Neuts (auto) 13.2 H Absolute Nucleated RBC 0.000 Nucleated RBC % 0.0 PT INR APTT Sodium 138 Potassium 3.8 Chloride 103 Carbon Dioxide 20 L Anion Gap 15 H BUN 29 H Creatinine 1.21 H Estim Creat Clear Calc 33 Estimated GFR 44 L Glucose 117 H POC Capillary Glucose 124 H 108 H Lactic Acid Calcium 9.2 Total Bilirubin AST ALT Alkaline Phosphatase Ammonia Total Creatine Kinase C-Reactive Protein NT-Pro-B Natriuret Pep Total Protein Albumin Urine Color Urine Appearance Urine pH Ur Specific [place] Urine Protein Urine Glucose (UA) Urine Ketones Ur Blood (Man) Urine Nitrate Urine Bilirubin Urine Urobilinogen Leukocyte Esterase Rfl Urine RBC Urine WBC Ur Squamous Epith Cells Urine Bacteria Urine Casts Urine Yeast (Budding) Urine Opiates Screen Urine Methadone Screen Ur Barbiturates Screen Ur Phencyclidine Scrn Ur Amphetamine Screen U Benzodiazepines Scrn Urine Cocaine Screen U Cannabinoids Screen Ethyl Alcohol 03/27/25 11:58 WBC RBC Hgb Hct MCV MCH MCHC RDW Plt Count MPV Immature Gran % (Auto) Neut % (Auto) Lymph % (Auto) Emery % (Auto) Eos % (Auto) Baso % (Auto) Lymph # (Auto) Emery # (Auto) Eos # (Auto) Baso # (Auto) Abs Immat Gran (auto) Absolute Neuts (auto) Absolute Nucleated RBC Nucleated RBC % PT INR APTT Sodium Potassium Chloride Carbon Dioxide Anion Gap BUN Creatinine Estim Creat Clear Calc Estimated GFR Glucose POC Capillary Glucose 122 H Lactic Acid Calcium Total Bilirubin AST ALT Alkaline Phosphatase Ammonia Total Creatine Kinase C-Reactive Protein NT-Pro-B Natriuret Pep Total Protein Albumin Urine Color Urine Appearance Urine pH Ur Specific [place] Urine Protein Urine Glucose (UA) Urine Ketones Ur Blood (Man) Urine Nitrate Urine Bilirubin Urine Urobilinogen Leukocyte Esterase Rfl Urine RBC Urine WBC Ur Squamous Epith Cells Urine Bacteria Urine Casts Urine Yeast (Budding) Urine Opiates Screen Urine Methadone Screen Ur Barbiturates Screen Ur Phencyclidine Scrn Ur Amphetamine Screen U Benzodiazepines Scrn Urine Cocaine Screen U Cannabinoids Screen Ethyl Alcohol Quality VTE Prophylaxis VTE prophylaxis: pharmacologic ordered
[2025-03-27] MEDS: cefTRIAXone 1 GM in SODIUM CHLORIDE 0.9% IV 50 ML 100 ML IVPB (13:09)
[2025-03-27] MEDS: MORPHINE SULFATE (*CRX) 2 MG/ML INJ IV PUSH ×2 (15:11→18:46)
[2025-03-27] MEDS: DEXTROSE 5%/0.9% SOD CHL 1,000 ML 75 ML IV CONT (17:32)
[2025-03-27] MEDS: MORPHINE SULFATE (*CRX) 4 MG/ML INJ IV PUSH (22:05)
[2025-03-28] VITALS (15 sets, daily range): BP systolic 182–188; BP diastolic 95–110; PULSE 109–138; RESP 18–20; TEMP 36.1–37; O2SAT 98–100
[2025-03-28] MEDS: METOPROLOL TARTRATE INJ 5 MG/5 ML VIAL IV PUSH ×5 (00:04→23:50)
[2025-03-28] MEDS: MORPHINE SULFATE (*CRX) 4 MG/ML INJ IV PUSH ×2 (02:24→14:22)
[2025-03-28] MEDS: DEXTROSE 5%/0.9% SOD CHL 1,000 ML 75 ML IV CONT ×2 (06:56→20:55)
--- NOTE | 2025-03-28 07:25 | P.PNIM_ITS ---
Progress Note: A&P Assessment and Plan (1) UTI (urinary tract infection): Code(s): N39.0 - Urinary tract infection, site not specified Status: Acute Assessment and Plan: WBC elevated to 19>18 IV Rocephin 03/27- Culture and sensitivity pending IVF Follow urine cultures (2) RENEA (acute kidney injury): Code(s): N17.9 - Acute kidney failure, unspecified Status: Acute Assessment and Plan: Hx RENEA with creatinine 5.5 in 2022 due to urinary retention and nausea/vomiting. Baseline creatinine 0.92 * Discontinue NS at 100 ml/hr and started D5NS at 75 ml/hr since NPO and blood sugar 75 03/26 * Hold oral hypoglycemics * Low dose correction for Q6 hrs as pt is NPO. Would also change dextrose fluids to NS * Interval improvement in renal function present w/Cr now 1.2. Continue to monitor and trend. (3) Colitis: Code(s): K52.9 - Noninfective gastroenteritis and colitis, unspecified Status: Acute Assessment and Plan: 03/26/25 CT showed 1. Findings suspicious for cystitis and right-sided ascending urinary tract infection with early pyelonephritis at the upper pole the right kidney. Correlate with urinalysis. 2. Mild bilateral hydronephrosis extending to the bladder which suggests either chronic outlet obstruction or neurogenic bladder. 3. Edematous wall thickening of the sigmoid and distal descending colon suspicious for colitis. 4. Stable appearance of mild UIP pattern chronic interstitial lung disease with no pulmonary edema or other acute cardiopulmonary disease. Consider GI consult for colitis, or could be outpatient if abdominal pain and constipation resolve Stool for c-diff/culture if having diarrhea Stool calprotectin Inflammatory markers: ESR, CRP, follow WBC (4) Impaired swallowing: Code(s): R13.10 - Dysphagia, unspecified Status: Acute Assessment and Plan: 03/27 failed bedside swallow eval. * Hold all home meds until evaluated * Modified Barium Swallow is ordered. * NPO until Barium swallow performed. (5) Congestive heart failure: Code(s): I50.9 - Heart failure, unspecified Status: Chronic Assessment and Plan: Holding diuretics due to infection and dehydration * Pt appears to be euvolemic. No s/s of fluid overload. Decreased d5 from 75>50/hr * Continue to hold current meds (6) Hypoglycemia: Code(s): E16.2 - Hypoglycemia, unspecified Status: Acute Assessment and Plan: D5 NS at 40 Accu-Cheks q.6 While NPO (7) Constipation: Qualifiers: Constipation type: unspecified constipation type Qualified Code(s): K59.00 - Constipation, unspecified Code(s): K59.00 - Constipation, unspecified Status: Resolved Assessment and Plan: With slow transit time she will need aggressive bowel regiment once able to take p.o. (8) DM2 (diabetes mellitus, type 2): Qualifiers: Diabetes mellitus complication status: with hyperglycemia Diabetes mellitus shelter insulin use: without shelter use Qualified Code(s): E11.65 - Type 2 diabetes mellitus with hyperglycemia Code(s): E11.9 - Type 2 diabetes mellitus without complications Status: Chronic Assessment and Plan: Patient is NPO Hold metformin while in hospital Accu-Cheks q.6 SSI (9) Essential (primary) hypertension: Code(s): I10 - Essential (primary) hypertension Status: Chronic Assessment and Plan: Hydralazine p.r.n. (10) Pressure ulcer: Code(s): L89.90 - Pressure ulcer of unspecified site, unspecified stage Status: Acute Assessment and Plan: Wound care consulted Time Spent With Patient Time: 59 minutes Subjective Date/time seen: 03/28/25 07:25 Interval history: Failed swallow with speech so MBS swallow pending on Saturday. Having generalized abdominal pain Started on Rocephin for UTI. Review of Systems Review of Systems: 12 systems were reviewed and are negativ e except for as per HPI. All systems reviewed & are unremarkable except as noted in HPI and below Exam Narrative: General - Awake and alert, chronically ill appearing. In no acute distress Eyes - PERRLA, EOM intact ENT - No thrush, No erythema Neck - No noticeable or palpable swelling Lymph Nodes - No lymphadenopathy Cardiovascular - RRR no m/r/g, no JVD Lungs: No wheezing, use of accessory muscles, no crackles, rare coarse breath sounds Skin - Skin warm and dry, no wounds or rashes Abdomen - Normal bowel sounds, abdomen soft, generalized tenderness Extremities - Bilateral LE small scabs.No cyanosis or clubbing Musculoskeletal - 5/5 strength, normal range of motion, no swollen or erythematous joints. Neurological ? Alert and oriented x 3, CN 2-12 grossly intact. Psych: Normal mood and affect Objective Data Vital Signs Vital Signs: Vital Signs - 24 hr 03/27/25 08:00 03/27/25 09:30 03/27/25 12:00 Temperature Pulse Rate 102 H 108 H Respiratory Rate Blood Pressure Pulse Oximetry Oxygen Delivery Room Air 03/27/25 12:04 03/27/25 13:58 03/27/25 16:00 Temperature 97 F L Pulse Rate 110 H 103 H 112 H Respiratory Rate 16 Blood Pressure 174/88 H Pulse Oximetry 99 Oxygen Delivery 03/27/25 16:01 03/27/25 17:33 03/27/25 20:00 Temperature Pulse Rate 117 H 113 H Respiratory Rate Blood Pressure Pulse Oximetry 100 Oxygen Delivery Room Air Room Air 03/27/25 20:00 03/27/25 21:42 03/27/25 22:04 Temperature 97.6 F Pulse Rate 113 H 109 H 113 H Respiratory Rate 16 Blood Pressure 189/90 H Pulse Oximetry 100 Oxygen Delivery 03/27/25 23:36 03/28/25 00:00 03/28/25 00:04 Temperature 97.7 F Pulse Rate 140 H 132 H 130 H Respiratory Rate 16 Blood Pressure 193/112 H Pulse Oximetry 100 Oxygen Delivery 03/28/25 04:00 03/28/25 06:00 03/28/25 06:16 Temperature 97 F L Pulse Rate 121 H 110 H 118 H Respiratory Rate 18 Blood Pressure 186/110 H Pulse Oximetry 100 Oxygen Delivery Intake/Output Intake/Output: Intake & Output 03/25/25 03/26/25 03/27/25 03/28/25 23:59 23:59 23:59 23:59 Intake Total 1800 1731.4 1000 Output Total 2600 2650 150 Balance -800 -918.6 850 Meds/Results Medications: Active Medications Generic Name Dose Route Start Last Admin Trade Name Freq PRN Reason Stop Dose Admin Acetaminophen 650 mg 03/26/25 18:49 Acetaminophen 325 Mg Tablet PO Q4H PRN Mild Pain (1-3) or Fever Hydrocodone Bitart/Acetaminophen 1 tab 03/26/25 18:49 Hydrocodone/Acetaminophen (*Crx) 5-325 Mg Tablet PO Q4H PRN Moderate Pain (4-6) Hydrocodone Bitart/Acetaminophen 1 tab 03/27/25 09:14 Hydrocodone/Acetaminophen (*Crx) 5-325 Mg Tablet PO Q6H PRN pain Atorvastatin Calcium 20 mg 03/27/25 09:30 03/27/25 09:35 Atorvastatin 20 Mg Tablet BY MOUTH Not Given DAILY [facility] Baclofen 10 mg 03/27/25 09:30 Baclofen 10 Mg Tablet PO TID PRN muscle spasm Buspirone HCl 10 mg 03/27/25 09:30 03/27/25 14:57 Buspirone Hcl 10 Mg Tablet PO Not Given BID [facility] Clonidine HCl 0.3 mg 03/27/25 09:30 03/27/25 14:57 Clonidine Hcl 0.1 Mg Tablet PO Not Given TID [facility] Dextrose 12.5 gm 03/26/25 18:49 Dextrose 50% 25 Gm/50 Ml Syringe IV PUSH PRN PRN Hypoglycemia Protocol Diphenhydramine HCl 12.5 mg 03/26/25 22:10 Diphenhydramine Hcl Inj 50 Mg/Ml Vial IV PUSH Q6H PRN Itching Docusate Sodium 100 mg 03/27/25 09:00 Docusate Sodium 100 Mg Capsule PO BID [facility] Duloxetine HCl 60 mg 03/27/25 09:30 03/27/25 09:35 Duloxetine Hcl 60 Mg Capsule.Dr PO Not Given DAILY [facility] Empagliflozin 25 mg 03/28/25 09:30 Empagliflozin 25 Mg Tablet BY MOUTH DAILY [facility] Enoxaparin Sodium 40 mg 03/27/25 09:00 03/27/25 09:22 Enoxaparin 40 Mg/0.4 Ml Syringe SUB-Q 40 mg DAILY [facility] Administration Gabapentin 300 mg 03/27/25 09:30 03/27/25 09:35 Gabapentin 300 Mg Capsule PO Not Given DAILY [facility] Glucagon 1 mg 03/26/25 18:49 Glucagon For Inj 1 Mg Vial IM PRN PRN Hypoglycemia Protocol Glucose 15 gm 03/26/25 18:49 Glucose Oral Gel 15 Gm Of Glucse In 37.5 Gm Tube PO PRN PRN Hypoglycemia Protocol Hydralazine HCl 10 mg 03/26/25 22:42 03/28/25 07:02 Hydralazine Hcl 20 Mg/Ml Vial IV PUSH 10 mg Q8H PRN Administration Blood Pressure - High Dextrose 1,000 mls @ 100 mls/hr 03/26/25 18:49 Dextrose 5% 1,000 Ml IVPB PRN PRN Hypoglycemia Protocol Dextrose/Sodium Chloride 1,000 mls @ 75 mls/hr 03/26/25 20:50 03/28/25 06:56 Dextrose 5% Sodium Chloride 0.9% IV CONT 75 mls/hr .[id number] [facility] Administration Ceftriaxone Sodium 1 gm/ 50 mls @ 100 mls/hr 03/27/25 13:00 03/27/25 13:39 Sodium Chloride IVPB Infused Q24H [facility] Infusion Insulin Aspart 2 - 5 units 03/27/25 08:00 03/27/25 17:10 Insulin Aspart (*Bkc) 100 Units/Ml SUB-Q Not Given TIDWM [facility] Protocol Insulin Aspart 1 - 2 units 03/26/25 21:00 03/27/25 22:04 Insulin Aspart (*Bkc) 100 Units/Ml SUB-Q Not Given HS [facility] Protocol Metoprolol Tartrate 5 mg 03/27/25 00:00 03/28/25 06:16 Metoprolol Tartrate Inj 5 Mg/5 Ml Vial IV PUSH 5 mg Q6HR [facility] Administration Metoprolol Tartrate 50 mg 03/27/25 09:30 03/27/25 22:04 Metoprolol Tartrate 50 Mg Tab PO Not Given Q12HR [facility] Morphine Sulfate 4 mg 03/27/25 21:19 03/28/25 02:24 Morphine Sulfate (*Crx) 4 Mg/Ml Inj IV PUSH 4 mg Q4H PRN Administration Pain Rated 7-10 Multi-Ingred Cream/Lotion/Oil/Oint 1 applic 03/27/25 09:00 03/27/25 09:22 Eucerin Cream 120 Gm Jar TOPICAL 1 applic DAILY [facility] Administration Oxybutynin Chloride 10 mg 03/27/25 09:30 03/27/25 09:35 Oxybutynin Chloride Xl 5 Mg Tab.Er.24 PO Not Given DAILY [facility] Pantoprazole Sodium 40 mg 03/27/25 09:30 03/27/25 09:35 Pantoprazole 40 Mg Tablet PO Not Given DAILY [facility] Spironolactone 25 mg 03/27/25 09:30 03/27/25 09:35 Spironolactone 25 Mg Tablet PO Not Given DAILY [facility] Radiology Results: ITS Impressions Head CT 03/26/25 19:52 IMPRESSION: 1. 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 No acute intracranial process. 2. Age-related changes including mild diffuse volume loss and mild scattered white matter hypoattenuation consistent with chronic small vessel ischemic disease. Chest/Abdomen/Pelvis CT 03/26/25 20:06 IMPRESSION: 1. Findings suspicious for cystitis and right-sided ascending urinary tract infection with early polynephritis at the upper pole the right kidney. Correlate with urinalysis. 2. Mild bilateral hydronephrosis extending to the bladder which suggests either chronic outlet obstruction or neurogenic bladder. 3. Edematous wall thickening of the sigmoid and distal descending colon suspicious for colitis. 4. Stable appearance of mild UIP pattern chronic interstitial lung disease with no pulmonary edema or other acute cardiopulmonary disease. Labs Labs: Laboratory Results - last 24 hr 03/27/25 03/27/25 03/27/25 07:52 11:58 16:40 POC Capillary Glucose 108 H 122 H 131 H 03/27/25 21:46 POC Capillary Glucose 128 H Quality VTE Prophylaxis VTE prophylaxis: pharmacologic ordered Hospitalist MIPS Advance Care Plan I have confirmed that the patient's Advanced Care Plan is present, code status is documented, or surrogate decision maker is listed in patient medical record.: Yes Medication Reconciliation I have utilized all available resources to obtain, update and review the patients current medications (includes all prescriptions, OTC, herbals, cannabis, and nutritional supplements).: Yes
[2025-03-28] MEDS: EUCERIN CREAM 120 GM JAR 1 APPLIC TOPICAL (09:41)
[2025-03-28] MEDS: ENOXAPARIN 40 MG/0.4 ML SYRINGE SUB-Q (09:44)
[2025-03-28] MEDS: cefTRIAXone 1 GM in SODIUM CHLORIDE 0.9% IV 50 ML 100 ML IVPB (12:25)
--- NOTE | 2025-03-28 14:39 | PCPTNOTE ---
pt refused PT eval 1350; sitting in chair, tired and unable to convince her.
[2025-03-29] VITALS (17 sets, daily range): BP systolic 131–203; BP diastolic 73–113; PULSE 88–135; RESP 14–18; TEMP 36.5–36.8; O2SAT 97–99; BMI 23.1
[2025-03-29] MEDS: METOPROLOL TARTRATE INJ 5 MG/5 ML VIAL IV PUSH ×2 (05:02→11:51)
[2025-03-29 05:21] LABS: Hematocrit 38.7 % (37.0-47.0); Hemoglobin 12.3 g/dL (12.0-15.0); Immature Granulocyte Percent A 1.5 % (0-0.5); Lymphocytes Absolute Auto 2.50 K/mm3 (0.9-3.2); Mean Corpuscular HGB Conc 31.8 g/dl (32-36); Mean Corpuscular Hemoglobin 28.7 pg (26-34); Mean Corpuscular Volume 90.2 fl (80-100); Nucleated Red Blood Cells Absolute Auto 0.000 K/mm3 (0.0-0.012); Nucleated Red Blood Cells Perc 0.0 % (0.0-0.2); Platelet Count Result 535 k/mm3 (150-375); Red Blood Count 4.29 M/mm3 (4.2-5.4); White Blood Count 20.5 K/mm3 (4.5-10.0)
[2025-03-29 05:41] LABS: Alanine Aminotransferase 12 U/L (6-35); Albumin Level 3.6 g/dL (3.5-5.1); Alkaline Phosphatase 78 U/L (38-126); Anion Gap 14 mmol/L (4-12); Aspartate Amino Transferase 21 U/L (14-36); Bilirubin,Total 0.5 mg/dL (0.2-1.3); Blood Urea Nitrogen 12 mg/dL (7-17); CRP 5.1 mg/dL (<1.0); Calcium 9.3 mg/dL (8.4-10.2); Carbon Dioxide 21 mmol/L (22-30); Chloride 108 mmol/L (98-107); Estimated CRCL calculation 50 ml/min; Estimated Glomerular Filt Rate > 60; Glucose 163 mg/dL (65-110); Potassium 3.2 mmol/L (3.4-5.0); Sodium 143 mmol/L (137-145); Total Protein 7.6 g/dL (6.3-8.2)
--- NOTE | 2025-03-29 07:02 | P.PNIM_ITS ---
Progress Note: A&P Assessment and Plan (1) Sepsis: Code(s): A41.9 - Sepsis, unspecified organism Status: Acute Assessment and Plan: - criteria met on admission with leukocytosis, tachycardia. Meeting severe sepsis criteria 03/29/25 with leukocytosis, tachycardia and lactic acidosis - BP elevated - unclear source-initially thought to be secondary to UTI however urine culture only showing urogenital ricardo. CT A/P does show concern for colitis although patient denies abdominal pain and she is not having any nausea vomiting or diarrhea. -blood cultures still pending -given increasing leukocytosis and lactic acidosis, will broaden antibiotics (cefepime and flagyl), await blood cultures - trend lactic acid (2) UTI (urinary tract infection): Code(s): N39.0 - Urinary tract infection, site not specified Status: Acute Assessment and Plan: - UA with 3+ LE, 51-100 WBC, negative nitrates, yeast present - admit CT with evidence of cystitis and right-sided ascending UTI with early pyelonephritis - UA with mixed urogenital ricardo so doubt true UTI - on cefepime as above (3) RENEA (acute kidney injury): Code(s): N17.9 - Acute kidney failure, unspecified Status: Acute Assessment and Plan: -Hx RENEA with creatinine 5.5 in 2022 due to urinary retention and nausea/vomiting. Baseline creatinine 0.92 -Discontinue NS at 100 ml/hr and started D5NS at 75 ml/hr since NPO and blood sugar 75 03/26 -Hold oral hypoglycemics -Interval improvement in renal function - monitor BMP (4) Colitis: Code(s): K52.9 - Noninfective gastroenteritis and colitis, unspecified Status: Acute Assessment and Plan: 03/26/25 CT showed 1. Findings suspicious for cystitis and right-sided ascending urinary tract infection with early pyelonephritis at the upper pole the right kidney. Correlate with urinalysis. 2. Mild bilateral hydronephrosis extending to the bladder which suggests either chronic outlet obstruction or neurogenic bladder. 3. Edematous wall thickening of the sigmoid and distal descending colon suspicious for colitis. 4. Stable appearance of mild UIP pattern chronic interstitial lung disease with no pulmonary edema or other acute cardiopulmonary disease. -Stool for c-diff/culture if having diarrhea -Stool calprotectin -Inflammatory markers: ESR, CRP, follow WBC - LA mildly elevated. Benign abdominal exam, mild diffuse pain on exam - patient with nausea, loss of appetite. - GI consulted, appreciate recs (5) Impaired swallowing: Code(s): R13.10 - Dysphagia, unspecified Status: Acute Assessment and Plan: -03/27 failed bedside swallow eval. -s/p MBS 03/29/25 - speech recommended minced and moist, moderately thick liquids - BEHAVIORAL HEALTH THERAPIST following (6) Congestive heart failure: Code(s): I50.9 - Heart failure, unspecified Status: Chronic Assessment and Plan: -echo 12/2022 with EF 70%, indeterminate diastolic function -Pt appears to be euvolemic. No s/s of fluid overload. -Holding diuretics due to infection and dehydration (7) Hypoglycemia: Code(s): E16.2 - Hypoglycemia, unspecified Status: Acute Assessment and Plan: -D5 NS at 40 -stop D5 now that patient has a diet, but continue Accu-Cheks q.6 due to decreased PO intake (8) Constipation: Qualifiers: Constipation type: unspecified constipation type Qualified Code(s): K59.00 - Constipation, unspecified Code(s): K59.00 - Constipation, unspecified Status: Resolved Assessment and Plan: - restart PO bowel regimen (9) DM2 (diabetes mellitus, type 2): Qualifiers: Diabetes mellitus complication status: with hyperglycemia Diabetes mellitus fdc insulin use: without fdc use Qualified Code(s): E11.65 - Type 2 diabetes mellitus with hyperglycemia Code(s): E11.9 - Type 2 diabetes mellitus without complications Status: Chronic Assessment and Plan: -hold metformin while in hospital -Accu-Cheks qACHS -SSI (10) Essential (primary) hypertension: Code(s): I10 - Essential (primary) hypertension Status: Chronic Assessment and Plan: - resume home metoprolol, aldactone, clonidine (11) Pressure ulcer: Code(s): L89.90 - Pressure ulcer of unspecified site, unspecified stage Status: Acute Assessment and Plan: -Wound care consulted (12) Hypokalemia: Code(s): E87.6 - Hypokalemia Status: Acute Assessment and Plan: - K+ 3.2 - IV replacement ordered (13) Cognitive impairment: Code(s): R41.89 - Other symptoms and signs involving cognitive functions and awareness Status: Acute Assessment and Plan: - reports patient has had issues with her memory for over a year. No history of formal dementia eval. - delirium precautions - recommend formal dementia eval outpatient (14) Urinary retention: Code(s): R33.9 - Retention of urine, unspecified Status: Acute Assessment and Plan: - s/p starr - urology consulted due to hydronephrosis and concern for chronic bladder outlet obstruction on CT Subjective Date/time seen: 03/29/25 07:02 Interval history: Patient seen and examined at bedside. also at bedside. Patient is complaining of vague abdominal discomfort and nausea. Having decreased appetite. Denied vomiting or diarrhea. Has reports memory issues ongoing for the last year or so. Review of Systems Review of Systems: 12 systems were reviewed and are negativ e except for as per HPI. Exam Narrative: General: NAD Eyes: EOMI ENT: neck supple Cardiovascular: tachycardia, regular rhythm Respiratory: Clear to auscultation, respirations even and unlabored on RA Gastrointestinal: Soft, non tender Genitourinary: no suprapubic tenderness Musculoskeletal: No edema Skin: warm, dry, bilateral venous stasis with multiple small superficial open wounds Neuro: Alert and oriented to self, place, knows the president, confused to month and year. Psych: Mood appropriate Objective Data Vital Signs Vital Signs: Vital Signs - 24 hr 03/28/25 08:02 03/28/25 09:44 03/28/25 12:02 Temperature Pulse Rate 123 H 133 H Respiratory Rate 18 Blood Pressure Pulse Oximetry 100 Oxygen Delivery Room Air 03/28/25 12:25 03/28/25 14:00 03/28/25 16:02 Temperature 97.9 F Pulse Rate 138 H 125 H 127 H Respiratory Rate 18 Blood Pressure 188/106 H Pulse Oximetry 98 Oxygen Delivery 03/28/25 17:06 03/28/25 20:00 03/28/25 20:00 Temperature Pulse Rate 121 H 116 H Respiratory Rate Blood Pressure Pulse Oximetry Oxygen Delivery Room Air 03/28/25 22:00 03/28/25 23:50 03/29/25 00:00 Temperature 98.6 F Pulse Rate 109 H 124 H 111 H Respiratory Rate 20 Blood Pressure 182/95 H Pulse Oximetry 100 Oxygen Delivery 03/29/25 00:00 03/29/25 04:00 03/29/25 05:02 Temperature Pulse Rate 121 H 118 H Respiratory Rate Blood Pressure 147/79 H Pulse Oximetry Oxygen Delivery 03/29/25 06:00 Temperature 98.2 F Pulse Rate 114 H Respiratory Rate 16 Blood Pressure 178/91 H Pulse Oximetry 97 Oxygen Delivery Intake/Output Intake/Output: Intake & Output 03/26/25 03/27/25 03/28/25 03/29/25 23:59 23:59 23:59 23:59 Intake Total 1800 1731.4 2050.0 Output Total 2600 2650 1775 1125 Balance -800 -918.6 275.0 -1125 Meds/Results Medications: Active Medications Generic Name Dose Route Start Last Admin Trade Name Freq PRN Reason Stop Dose Admin Acetaminophen 650 mg 03/26/25 18:49 Acetaminophen 325 Mg Tablet PO Q4H PRN Mild Pain (1-3) or Fever Acetaminophen 650 mg 03/28/25 21:44 Acetaminophen 650 Mg Suppository RECTAL Q6H PRN Mild Pain (1-3) or Fever Hydrocodone Bitart/Acetaminophen 1 tab 03/26/25 18:49 Hydrocodone/Acetaminophen (*Crx) 5-325 Mg Tablet PO Q4H PRN Moderate Pain (4-6) Hydrocodone Bitart/Acetaminophen 1 tab 03/27/25 09:14 Hydrocodone/Acetaminophen (*Crx) 5-325 Mg Tablet PO Q6H PRN pain Atorvastatin Calcium 20 mg 03/27/25 09:30 03/28/25 09:42 Atorvastatin 20 Mg Tablet BY MOUTH Not Given DAILY [facility] Baclofen 10 mg 03/27/25 09:30 Baclofen 10 Mg Tablet PO TID PRN muscle spasm Bisacodyl 10 mg 03/29/25 21:00 Bisacodyl 10 Mg Suppository RECTAL HS PRN Constipation Buspirone HCl 10 mg 03/27/25 09:30 03/28/25 16:15 Buspirone Hcl 10 Mg Tablet PO Not Given BID [facility] Clonidine HCl 0.3 mg 03/27/25 09:30 03/28/25 16:15 Clonidine Hcl 0.1 Mg Tablet PO Not Given TID [facility] Dextrose 12.5 gm 03/26/25 18:49 Dextrose 50% 25 Gm/50 Ml Syringe IV PUSH PRN PRN Hypoglycemia Protocol Diphenhydramine HCl 12.5 mg 03/26/25 22:10 Diphenhydramine Hcl Inj 50 Mg/Ml Vial IV PUSH Q6H PRN Itching Docusate Sodium 100 mg 03/27/25 09:00 Docusate Sodium 100 Mg Capsule PO BID [facility] Duloxetine HCl 60 mg 03/27/25 09:30 03/28/25 09:42 Duloxetine Hcl 60 Mg Capsule.Dr PO Not Given DAILY [facility] Empagliflozin 25 mg 03/28/25 09:30 03/28/25 09:42 Empagliflozin 25 Mg Tablet BY MOUTH Not Given DAILY [facility] Enoxaparin Sodium 40 mg 03/27/25 09:00 03/28/25 09:44 Enoxaparin 40 Mg/0.4 Ml Syringe SUB-Q 40 mg DAILY [facility] Administration Gabapentin 300 mg 03/27/25 09:30 03/28/25 09:41 Gabapentin 300 Mg Capsule PO Not Given DAILY [facility] Glucagon 1 mg 03/26/25 18:49 Glucagon For Inj 1 Mg Vial IM PRN PRN Hypoglycemia Protocol Glucose 15 gm 03/26/25 18:49 Glucose Oral Gel 15 Gm Of Glucse In 37.5 Gm Tube PO PRN PRN Hypoglycemia Protocol Hydralazine HCl 10 mg 03/26/25 22:42 03/28/25 20:56 Hydralazine Hcl 20 Mg/Ml Vial IV PUSH 10 mg Q8H PRN Administration Blood Pressure - High Dextrose 1,000 mls @ 100 mls/hr 03/26/25 18:49 Dextrose 5% 1,000 Ml IVPB PRN PRN Hypoglycemia Protocol Dextrose/Sodium Chloride 1,000 mls @ 50 mls/hr 03/26/25 20:50 03/28/25 20:55 Dextrose 5% Sodium Chloride 0.9% IV CONT 75 mls/hr .Q20H [facility] Administration Ceftriaxone Sodium 1 gm/ 50 mls @ 100 mls/hr 03/27/25 13:00 03/28/25 12:55 Sodium Chloride IVPB Infused Q24H [facility] Infusion Insulin Aspart 2 - 5 units 03/27/25 08:00 03/28/25 17:04 Insulin Aspart (*Bkc) 100 Units/Ml SUB-Q Not Given TIDWM [facility] Protocol Insulin Aspart 1 - 2 units 03/26/25 21:00 03/28/25 23:50 Insulin Aspart (*Bkc) 100 Units/Ml SUB-Q Not Given HS [facility] Protocol Metoprolol Tartrate 5 mg 03/27/25 00:00 03/29/25 05:02 Metoprolol Tartrate Inj 5 Mg/5 Ml Vial IV PUSH 5 mg Q6HR [facility] Administration Metoprolol Tartrate 50 mg 03/27/25 09:30 03/28/25 20:55 Metoprolol Tartrate 50 Mg Tab PO Not Given Q12HR [facility] Morphine Sulfate 4 mg 03/27/25 21:19 03/28/25 14:22 Morphine Sulfate (*Crx) 4 Mg/Ml Inj IV PUSH 4 mg Q4H PRN Administration Pain Rated 7-10 Multi-Ingred Cream/Lotion/Oil/Oint 1 applic 03/27/25 09:00 03/28/25 09:41 Eucerin Cream 120 Gm Jar TOPICAL 1 applic DAILY [facility] Administration Oxybutynin Chloride 10 mg 03/27/25 09:30 03/28/25 09:42 Oxybutynin Chloride Xl 5 Mg Tab.Er.24 PO Not Given DAILY [facility] Pantoprazole Sodium 40 mg 03/27/25 09:30 03/28/25 09:42 Pantoprazole 40 Mg Tablet PO Not Given DAILY [facility] Spironolactone 25 mg 03/27/25 09:30 03/28/25 09:42 Spironolactone 25 Mg Tablet PO Not Given DAILY [facility] Radiology Results: ITS Impressions Head CT 03/26/25 19:52 IMPRESSION: 1. 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 No acute intracranial process. 2. Age-related changes including mild diffuse volume loss and mild scattered white matter hypoattenuation consistent with chronic small vessel ischemic disease. Chest/Abdomen/Pelvis CT 03/26/25 20:06 IMPRESSION: 1. Findings suspicious for cystitis and right-sided ascending urinary tract infection with early polynephritis at the upper pole the right kidney. Correlate with urinalysis. 2. Mild bilateral hydronephrosis extending to the bladder which suggests either chronic outlet obstruction or neurogenic bladder. 3. Edematous wall thickening of the sigmoid and distal descending colon suspicious for colitis. 4. Stable appearance of mild UIP pattern chronic interstitial lung disease with no pulmonary edema or other acute cardiopulmonary disease. Labs Labs: Laboratory Results - last 24 hr 03/28/25 03/28/25 03/28/25 07:43 11:39 17:03 WBC RBC Hgb Hct MCV MCH MCHC RDW Plt Count MPV Immature Gran % (Auto) Neut % (Auto) Lymph % (Auto) [place] % (Auto) Eos % (Auto) Baso % (Auto) Lymph # (Auto) [place] # (Auto) Eos # (Auto) Baso # (Auto) Abs Immat Gran (auto) Absolute Neuts (auto) Absolute Nucleated RBC Nucleated RBC % Sodium Potassium Chloride Carbon Dioxide Anion Gap BUN Creatinine Estim Creat Clear Calc Estimated GFR Glucose POC Capillary Glucose 154 H 182 H 143 H Calcium Total Bilirubin Direct Bilirubin AST ALT Alkaline Phosphatase C-Reactive Protein Total Protein Albumin 03/28/25 03/29/25 21:30 04:57 WBC 20.5 H RBC 4.29 Hgb 12.3 Hct 38.7 MCV 90.2 MCH 28.7 MCHC 31.8 L RDW 14.1 Plt Count 535 H MPV 9.8 Immature Gran % (Auto) 1.5 H Neut % (Auto) 76.1 H Lymph % (Auto) 12.2 L [place] % (Auto) 8.7 H Eos % (Auto) 1.0 Baso % (Auto) 0.5 Lymph # (Auto) 2.50 [place] # (Auto) 1.8 H Eos # (Auto) 0.2 Baso # (Auto) 0.1 Abs Immat Gran (auto) 0.30 H Absolute Neuts (auto) 15.6 H Absolute Nucleated RBC 0.000 Nucleated RBC % 0.0 Sodium 143 Potassium 3.2 L Chloride 108 H Carbon Dioxide 21 L Anion Gap 14 H BUN 12 D Creatinine 0.79 Estim Creat Clear Calc 50 Estimated GFR > 60 Glucose 163 H POC Capillary Glucose 139 H Calcium 9.3 Total Bilirubin 0.5 Direct Bilirubin 0.0 AST 21 ALT 12 Alkaline Phosphatase 78 C-Reactive Protein 5.1 H Total Protein 7.6 Albumin 3.6 Quality VTE Prophylaxis VTE prophylaxis: pharmacologic ordered
[2025-03-29] MEDS: KCL 20 MEQ/SW 100 ML 100 ML 50 MEQ IVPB (07:31)
[2025-03-29] MEDS: EUCERIN CREAM 120 GM JAR 1 APPLIC TOPICAL (08:15)
[2025-03-29] MEDS: ENOXAPARIN 40 MG/0.4 ML SYRINGE SUB-Q (08:16)
[2025-03-29 08:24] LABS: Procalcitonin 0.1 ng/mL
--- NOTE | 2025-03-29 09:26 | ECG_ITS ---
Test Date: 2025-03-29 14:58:41 Measurements Intervals [place] Rate: 101 P: 43 NH: 167 QRS: 8 QRSD: 80 T: 48 QT: 369 QTc: 480 Interpretive Statements SINUS TACHYCARDIA Electronically Signed On 03-30-2025 17:08:59 CDT by Everardo Mckeon D.O
[2025-03-29] MEDS: DEXTROSE 5%/0.9% SOD CHL 1,000 ML 75 ML IV CONT (10:32)
[2025-03-29] MEDS: SODIUM CHLORIDE 0.9% IV 500 ML IV CONT (11:45)
--- NOTE | 2025-03-29 11:50 | PCSTNOTE ---
Please refer to the Modified Barium Swallow Evaluation in the EMR.
[2025-03-29] MEDS: METOPROLOL TARTRATE 50 MG TAB PO ×2 (12:16→21:33)
[2025-03-29] MEDS: DULoxetine HCL 60 MG CAPSULE.DR PO (12:16)
[2025-03-29] MEDS: SPIRONOLACTONE 25 MG TABLET PO (12:17)
[2025-03-29] MEDS: CEFEPIME 2 GM in SODIUM CHLORIDE 0.9% IV 50 ML 100 ML IVPB ×2 (12:50→23:43)
--- NOTE | 2025-03-29 12:58 | P.CDI_ITS ---
CDI Query Clarification Request 1) Please clarify if sepsis was present on admission. 2) Please clarify if UTI has been ruled in or ruled out. The medical chart reflects the following: (sepsis added to chart on 03/29) (1) Sepsis: Code(s): A41.9 - Sepsis, unspecified organism Status: Acute Assessment and Plan: - criteria met with leukocytosis, tachycardia and lactic acidosis - BP elevated - unclear source-initially thought to be secondary to UTI however urine culture only showing urogenital ricardo. CT A/P does show concern for colitis although patient denies abdominal pain and she is not having any nausea vomiting or diarrhea. -blood cultures still pending -given increasing leukocytosis and lactic acidosis, will broaden antibiotics, await blood cultures (2) UTI (urinary tract infection): Code(s): N39.0 - Urinary tract infection, site not specified Status: Acute Assessment and Plan: - UA with 3+ LE, 51-100 WBC, negative nitrates, yeast present - admit CT with evidence of cystitis and right-sided ascending UTI with early pyelonephritis - UA with mixed urogenital ricardo so doubt true UTI - on cefepime as above Urine Color Yellow Yellow ML Urine Appearance Cloudy H Clear ML Urine pH 5.0 5.0-9.0 ML Specific [place] Ur 1.014 1.001-1.035 ML Urine Protein Negative Negative mg/dL ML Urine Glucose 3+ H Negative mg/dL ML Urine Ketones Negative Negative mg/dL ML Blood Urine Non-Hemolyzed Trace H Negative ML Urine Nitrate Negative Negative ML Urine Bilirubin Negative Negative ML Urine Urobilinogen 0.2 <2.0 mg/dL ML Leukocyte Esterase Ur 3+ H Negative MI/UL ML Urine RBC 3-5 H 0-2 /hpf ML Urine WBC 51-100 H 0-3 /hpf ML Squamous Epi Ur None Seen Few /hpf ML Urine Bacteria None Seen /hpf ML Urine Budding Yeast Present H None /hpf ML Non Pathogenic Casts 0-2 FX UR CX DUE TO ABN UA R82.90 Final 03/29/25-0306 LC Mixed urogenital ricardo 50,000-100,000 colony forming units per mL Lactic acid 03/26: 1.3 03/29: 2.4 WBC 03/26: 19.0 03/27: 18.8 03/29: 20.5 IV cefepime <Marietta Espino RN - Last Filed: 03/29/25 13:08> Clarified Diagnosis Clarified Diagnosis: - sepsis present on admission - unclear if true UTI due to culture with urogenital ricardo, but patient responding to antibiotics so continuing to treat as UTI <REGLA Currie - Last Filed: 03/30/25 13:43>
--- NOTE | 2025-03-29 13:08 | WPDURCON ---
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 Other contributing factors include debility and acute colitis. The patient likely has overflow incontinence. She expresses a desire for nonoperative conservative management and her primary goal is to return home. Plan: - Continue to maintain the indwelling Jara catheter for bladder decompression while the infection is treated. - Please discontinue oxybutynin due to its side effect of urinary retention. - Continue IV antibiotics as managed by the hospitalist team to treat the possible UTI - Recommend trial of void prior to discharge, after the acute infection and inflammation have resolved. - Counseled the patient and her spouse on the potential diagnosis of diabetic cystopathy, where nerve damage from long-standing diabetes impairs bladder function and sensation. - Educated on the importance of timed voiding every 2-3 hours during the day upon catheter removal, rather than waiting for the urge to urinate, to prevent bladder overdistension and reduce UTI risk. - No plan for surgical intervention. Inpatient urology to follow peripherally. Please call with questions. Case discussed with Dr. Real Urology Consult Note HPI Date Seen: 03/29/25 Requesting Physician: Rony Olmos MD Primary Care Provider: Mateo Alfaro MD Consult Narrative Reason for consult: Acute urinary retention, Urinary tract infection Narrative: Ms. Donald is a 75-year-old female presenting for urology consultation regarding urinary retention requiring a new indwelling Jara catheter. The patient is a poor historian; per her spouse, she has had urinary incontinence for a little while, which occurs during the day and nocturnally, sometimes with awareness and sometimes without. She has no known history of hematuria or frequent urinary tract infections. She was admitted on 03/26/2025 for weakness, found to have a UTI, RENEA, and CHF. Significat home medications include oxybutynin (which was prescribed for incontinence), baclofen, gabapentin, Farxiga, NORCO. Her past medical history is significant for uncontrolled type 2 diabetes, NSTEMI, hypertension, fibromyalgia, rheumatoid arthritis, osteoarthritis, and anxiety. She is a former smoker and currently uses marijuana. -PERTINENT LABS: 03/29/2025 - WBC 20.5, HGB 12.3, Cr 0.79, Lactic Acid 2.4 03/27/2025 - WBC 18.8 03/26/2025 - WBC 19.0, Cr 1.30, GFR 40. Urinalysis: 3+ glucose, 3+ leukocytes, 3-5 RBCs, 51-100 WBCs, yeast present. Urine culture: 50,000-100,000 mixed urogenital ricardo. -PERTINENT IMAGIN03/26/2025 CT Chest/Abdomen/Pelvis (with contrast) - Findings suspicious for cystitis and right-sided ascending urinary tract infection with early pyelonephritis at the upper pole of the right kidney. Mild bilateral hydronephrosis extending to the bladder suggests chronic outlet obstruction or neurogenic bladder. Edematous wall thickening of the sigmoid and distal descending colon is suspicious for colitis. Review of Systems Constitutional: Constitutional: Reports fatigue, Reports lethargy and Reports weakness Eyes: Eyes: Reports no additional eye complaints ENT: Reports Normal hearing present Gastrointestinal: Gastrointestinal: Denies nausea and Denies vomiting Genitourinary: Genitourinary: Reports as per [facility] Past Medical History Medical History Eczema Osteoarthritis Venous insufficiency (chronic) (peripheral) DM2 (diabetes mellitus, type 2) Non-ST elevated myocardial infarction (non-STEMI) Osteoarthritis of hands, bilateral Bilateral primary osteoarthritis of knee Essential (primary) hypertension Fibromyalgia Generalized anxiety disorder Arthralgia of multiple joints Surgical History Surgical History History of tubal ligation (~1989) Family History Family History Grandparent Acute myocardial infarction Cerebrovascular accident Heart disease Mother Colon polyp Diabetes mellitus Pancreatic adenocarcinoma Other Depression Hypertension Neuralgia of both lower extremities Social History Social History Social History: Surrogate medical decision maker: Shravan Reulecke, spouse. Code status: Full code. Smoking status: Former smoker Tobacco type: cigarettes Second hand tobacco smoke exposure: No Additional smoking assessment comments: current every day marijuana pipe smoker Alcohol intake: never Substance use: current Substance use type: marijuana Last use: 03/26/25 Do You Feel Safe in your Home?: Yes Lack of Transportation: No Lack of Food: Never True Current Housing: I Have Housing Concerned About Future Housing: No Difficulty Paying Gas/Electric Bills: No Difficulty Paying for Meds: No Currently Unemployed: No Education: Associate Degree Difficulty w/ Childcare or Family Care: No Living arrangements: with family Occupation/Education: retired Spiritual care concerns: No Agree to blood products: Yes Meds Home Medications and Allergies Home Medications ?Medication ?Instructions ?Recorded ?Confirmed ?Type lancet with blood glucose test #300 ea 01/29/23 03/26/25 Rx strips and pen needles combo pack blood sugar diagnostic (OneTouch #300 ea 05/20/23 03/26/25 Rx Verio test strips) flash glucose scanning reader #1 ea 05/20/23 03/26/25 Rx (FreeStyle Yulia 2 Teller) atorvastatin 20 mg tablet See Rx Instructions .Route 07/24/24 03/26/25 Rx .COMPLEX #90 tabs ammonium lactate 12 % lotion 1 applic topical DAILY #225 grams 10/26/24 03/26/25 Rx (AmLactin) clonidine HCl 0.3 mg tablet See Rx Instructions .Route 12/27/24 03/26/25 Rx .COMPLEX #60 tabs duloxetine 60 mg capsule,delayed See Rx Instructions .Route 01/11/25 03/26/25 Rx release .COMPLEX #90 ea spironolactone 25 mg tablet 25 mg PO DAILY #30 tabs 01/18/25 03/26/25 Rx buspirone 10 mg tablet 10 mg PO BID #60 tabs 02/06/25 03/26/25 Rx semaglutide 7 mg tablet (Rybelsus) 7 mg PO DAILY #30 tabs 02/15/25 03/26/25 Rx dapagliflozin propanediol 10 mg 10 mg PO DAILY #90 tabs 02/17/25 03/26/25 Rx tablet (Farxiga) oxybutynin chloride 10 mg 10 mg PO DAILY #30 tabs 03/02/25 03/26/25 Rx tablet,extended release 24 hr gabapentin 300 mg capsule 300 mg PO DAILY #90 caps 03/03/25 03/26/25 Rx hydrocodone 5 mg-acetaminophen 325 1 tablet PO Q6H PRN pain #120 tabs 03/03/25 03/26/25 Rx mg tablet pioglitazone 15 mg tablet 15 mg PO DAILY #90 tabs 03/03/25 03/26/25 Rx metformin 500 mg tablet,extended See Rx Instructions .Route 03/07/25 03/26/25 Rx release 24 hr .COMPLEX #180 tabs flash glucose sensor (FreeStyle #2 ea 03/23/25 03/26/25 Rx Yulia 2 Sensor kit) baclofen 10 mg tablet 10 mg PO TID PRN muscle spasm 03/26/25 03/26/25 History metoprolol tartrate 100 mg tablet See Rx Instructions .Route 03/29/25 Rx .COMPLEX #180 tabs pantoprazole 40 mg tablet,delayed See Rx Instructions .Route 03/29/25 Rx release .COMPLEX #60 tabs Allergies Allergy/AdvReac Type Severity Reaction Status Date / Time amoxicillin (From Augmentin) Allergy Unknown Verified 03/26/25 12:36 clavulanic acid (From Allergy Unknown Verified 03/26/25 12:36 Augmentin) Vital Signs Vital Signs - 24 hr 03/28/25 14:00 03/28/25 16:02 03/28/25 17:06 Temperature 97.9 F Pulse Rate 125 H 127 H 121 H Respiratory Rate 18 Blood Pressure 188/106 H Pulse Oximetry 98 Oxygen Delivery 03/28/25 20:00 03/28/25 20:00 03/28/25 22:00 Temperature 98.6 F Pulse Rate 116 H 109 H Respiratory Rate 20 Blood Pressure 182/95 H Pulse Oximetry 100 Oxygen Delivery Room Air 03/28/25 23:50 03/29/25 00:00 03/29/25 00:00 Temperature Pulse Rate 124 H 111 H Respiratory Rate Blood Pressure 147/79 H Pulse Oximetry Oxygen Delivery 03/29/25 04:00 03/29/25 05:02 03/29/25 06:00 Temperature 98.2 F Pulse Rate 121 H 118 H 114 H Respiratory Rate 16 Blood Pressure 178/91 H Pulse Oximetry 97 Oxygen Delivery 03/29/25 08:02 03/29/25 08:16 03/29/25 09:25 Temperature Pulse Rate 128 H 127 H Respiratory Rate Blood Pressure Pulse Oximetry Oxygen Delivery Room Air Room Air 03/29/25 11:43 03/29/25 11:51 03/29/25 11:58 Temperature Pulse Rate 135 H 135 H 135 H Respiratory Rate Blood Pressure 203/113 H Pulse Oximetry Oxygen Delivery 03/29/25 12:03 03/29/25 12:16 Temperature Pulse Rate 134 H 135 H Respiratory Rate Blood Pressure Pulse Oximetry Oxygen Delivery Exam Const: General: comfortable and no acute distress HENMT: Face/Nose/Sinus: Normal nares present Resp: Effort & Inspection: normal respiratory effort Urinary Catheter: Urinary Catheter: patent and draining and urine clear Psych: Other: Flat affect Results Labs 03/29/25 04:57 03/29/25 04:57 Labs: Short CBC 03/29/25 Range/Units 04:57 WBC 20.5 H (4.5-10.0) K/mm3 Hgb 12.3 (12.0-15.0) g/dL Hct 38.7 (37.0-47.0) % Plt Count 535 H (150-375) k/mm3 BMP 03/29/25 04:57 Sodium 143 Potassium 3.2 L Chloride 108 H Carbon Dioxide 21 L BUN 12 D Creatinine 0.79 Glucose 163 H Calcium 9.3 Liver Function 03/29/25 Range/Units 04:57 Total Bilirubin 0.5 (0.2-1.3) mg/dL Direct Bilirubin 0.0 (0-0.3) mg/dL AST 21 (14-36) U/L ALT 12 (6-35) U/L Alkaline Phosphatase 78 (38-126) U/L Albumin 3.6 (3.5-5.1) g/dL
[2025-03-29] MEDS: BACLOFEN 10 MG TABLET PO (21:35)
[2025-03-30] VITALS (12 sets, daily range): BP systolic 110–142; BP diastolic 65–72; PULSE 89–104; RESP 16–19; TEMP 36.6–36.8; O2SAT 100
[2025-03-30 05:22] LABS: Hematocrit 33.0 % (37.0-47.0); Hemoglobin 10.6 g/dL (12.0-15.0); Immature Granulocyte Percent A 0.9 % (0-0.5); Lymphocytes Absolute Auto 3.03 K/mm3 (0.9-3.2); Mean Corpuscular HGB Conc 32.1 g/dl (32-36); Mean Corpuscular Hemoglobin 29.0 pg (26-34); Mean Corpuscular Volume 90.2 fl (80-100); Nucleated Red Blood Cells Absolute Auto 0.000 K/mm3 (0.0-0.012); Nucleated Red Blood Cells Perc 0.0 % (0.0-0.2); Platelet Count Result 404 k/mm3 (150-375); Red Blood Count 3.66 M/mm3 (4.2-5.4); White Blood Count 15.3 K/mm3 (4.5-10.0)
[2025-03-30 05:51] LABS: Alanine Aminotransferase 11 U/L (6-35); Albumin Level 3.2 g/dL (3.5-5.1); Alkaline Phosphatase 69 U/L (38-126); Anion Gap 8 mmol/L (4-12); Aspartate Amino Transferase 28 U/L (14-36); Bilirubin,Total 0.6 mg/dL (0.2-1.3); Blood Urea Nitrogen 14 mg/dL (7-17); Calcium 8.9 mg/dL (8.4-10.2); Carbon Dioxide 22 mmol/L (22-30); Chloride 104 mmol/L (98-107); Estimated CRCL calculation 45 ml/min; Estimated Glomerular Filt Rate > 60; Glucose 114 mg/dL (65-110); Lipase 34 U/L (23-300); Magnesium 1.5 mg/dL (1.6-2.3); Potassium 3.2 mmol/L (3.4-5.0); Sodium 134 mmol/L (137-145); Total Protein 6.6 g/dL (6.3-8.2)
--- NOTE | 2025-03-30 07:02 | P.PNIM_ITS ---
Progress Note: A&P Assessment and Plan (1) Sepsis: Code(s): A41.9 - Sepsis, unspecified organism Status: Acute Assessment and Plan: - criteria met on admission with leukocytosis, tachycardia. Meeting severe sep sis criteria 03/29/25 with leukocytosis, tachycardia and lactic acidosis. Now improved. Lactic acid and WBC trended down. - BP elevated - unclear source-initially thought to be secondary to UTI however urine culture only showing urogenital ricardo. CT A/P does show concern for colitis although patient denies abdominal pain and she is not having any nausea vomiting or diarrhea. -blood cultures x2 NGTD -given increasing leukocytosis and lactic acidosis, antibiotics broadened 03/29 (cefepime and flagyl) with improvement. May consider transitioning to ciprofloxacin and Flagyl tomorrow if continues to improve to cover for possible UTI and colitis. (2) UTI (urinary tract infection): Code(s): N39.0 - Urinary tract infection, site not specified Status: Acute Assessment and Plan: - UA with 3+ LE, 51-100 WBC, negative nitrates, yeast present - admit CT with evidence of cystitis and right-sided ascending UTI with early pyelonephritis - UA with mixed urogenital ricardo so doubt true UTI - on cefepime as above (3) Colitis: Code(s): K52.9 - Noninfective gastroenteritis and colitis, unspecified Status: Acute Assessment and Plan: 03/26/25 CT showed 1. Findings suspicious for cystitis and right-sided ascending urinary tract infection with early pyelonephritis at the upper pole the right kidney. Correlate with urinalysis. 2. Mild bilateral hydronephrosis extending to the bladder which suggests either chronic outlet obstruction or neurogenic bladder. 3. Edematous wall thickening of the sigmoid and distal descending colon suspicious for colitis. 4. Stable appearance of mild UIP pattern chronic interstitial lung disease with no pulmonary edema or other acute cardiopulmonary disease. -Stool for c-diff/culture initially ordered, but patient not having diarrhea. -Stool calprotectin -Inflammatory markers: ESR, CRP, follow WBC - mild diffuse pain on exam - patient with nausea, loss of appetite. - GI consulted, recommended bowel regimen. Will follow calprotectin and inflammatory markers. Recommended outpatient colonoscopy. - patient improved with cefepime and Flagyl. (4) Impaired swallowing: Code(s): R13.10 - Dysphagia, unspecified Status: Acute Assessment and Plan: -03/27 failed bedside swallow eval. 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 Recheck in AM (7) Urinary retention: Code(s): R33.9 - Retention of urine, unspecified Status: Acute Assessment and Plan: - s/p starr - urology consulted due to hydronephrosis and concern for chronic bladder outlet obstruction on CT. Recommended treatment of UTI, discontinue oxybutynin. Continue starr while treating UTI. Likely can attempt voiding trial tomorrow. Follow-up with urology as outpatient. (8) RENEA (acute kidney injury): Code(s): N17.9 - Acute kidney failure, unspecified Status: Resolved Assessment and Plan: -Admit Cr 1.3. Baseline creatinine 0.9. - likely prerenal due to decreased PO intake -s/p IV fluids with improvement - monitor BMP (9) Congestive heart failure: Code(s): I50.9 - Heart failure, unspecified Status: Chronic Assessment and Plan: -echo 12/2022 with EF 70%, indeterminate diastolic function -Pt appears to be euvolemic. No s/s of fluid overload. -Holding diuretics due to infection and dehydration, resume as able (10) Constipation: Qualifiers: Constipation type: unspecified constipation type Qualified Code(s): K59.00 - Constipation, unspecified Code(s): K59.00 - Constipation, unspecified Status: Resolved Assessment and Plan: - restart PO bowel regimen (11) Generalized weakness: Code(s): R53.1 - Weakness Status: Acute Assessment and Plan: - PT/OT recommended SNF - care coordination assisting with placement (12) Cognitive impairment: Code(s): R41.89 - Other symptoms and signs involving cognitive functions and awareness Status: Acute Assessment and Plan: - reports patient has had issues with her memory for over a year. No history of formal dementia eval. - delirium precautions - recommend formal dementia eval outpatient (13) Hypoglycemia: Code(s): E16.2 - Hypoglycemia, unspecified Status: Resolved Assessment and Plan: - s/p D5 infusion - resolved once diet restarted (14) DM2 (diabetes mellitus, type 2): Qualifiers: Diabetes mellitus complication status: with hyperglycemia Diabetes mellitus [facility] insulin use: without terminal computer operator use Qualified Code(s): E11.65 - Type 2 diabetes mellitus with hyperglycemia Code(s): E11.9 - Type 2 diabetes mellitus without complications Status: Chronic Assessment and Plan: -hold metformin while in hospital -Shashi WhaleyS -SSI (15) Essential (primary) hypertension: Code(s): I10 - Essential (primary) hypertension Status: Chronic Assessment and Plan: - resumed home metoprolol, aldactone, clonidine with improvement (16) Pressure ulcer: Code(s): L89.90 - Pressure ulcer of unspecified site, unspecified stage Status: Acute Assessment and Plan: -Wound care consulted (17) Gallstones: Code(s): K80.20 - Calculus of gallbladder without cholecystitis without obstruction Status: Acute Assessment and Plan: -CT showed large peripherally calcified gallstone at the fundus of the otherwise normal gallbladder with no gallbladder wall thickening or pericholecystic inflammatory stranding to suggest acute cholecystitis. No mention of biliary ductal dilation of obstruction. Lipase and LFT's normal. - GI recommended no further work-up given patient is asymptomatic. Subjective Date/time seen: 03/30/25 07:02 Interval history: Patient seen and examined up in chair. Doing better today, at some breakfast. Denied pain. Review of Systems Review of Systems: 12 systems were reviewed and are negativ e except for as per HPI. All systems reviewed & are unremarkable except as noted in HPI and below Exam Narrative: General: NAD Eyes: EOMI ENT: neck supple Cardiovascular: regular rate and rhythm Respiratory: Clear to auscultation, respirations even and unlabored on RA Gastrointestinal: Soft, non tender Genitourinary: no suprapubic tenderness Musculoskeletal: trace edema Skin: warm, dry, bilateral venous stasis with multiple small superficial open wounds Neuro: Alert and oriented to self, place, knows the president, confused to month and year. Psych: Mood appropriate Objective Data Vital Signs Vital Signs: Vital Signs - 24 hr 03/29/25 08:02 03/29/25 08:16 03/29/25 09:25 Temperature Pulse Rate 128 H 127 H Respiratory Rate Blood Pressure Pulse Oximetry Oxygen Delivery Room Air Room Air 03/29/25 11:43 03/29/25 11:51 03/29/25 11:58 Temperature Pulse Rate 135 H 135 H 135 H Respiratory Rate Blood Pressure 203/113 H Pulse Oximetry Oxygen Delivery 03/29/25 12:03 03/29/25 12:16 03/29/25 14:00 Temperature 97.8 F Pulse Rate 134 H 135 H 109 H Respiratory Rate 14 Blood Pressure 186/95 H Pulse Oximetry 99 Oxygen Delivery 03/29/25 16:02 03/29/25 16:51 03/29/25 19:53 Temperature 98 F 97.7 F Pulse Rate 94 94 88 Respiratory Rate 18 18 Blood Pressure 131/73 154/83 H Pulse Oximetry 99 98 Oxygen Delivery 03/29/25 20:00 03/29/25 20:00 03/29/25 21:33 Temperature Pulse Rate 101 H 105 H Respiratory Rate Blood Pressure Pulse Oximetry Oxygen Delivery Room Air 03/30/25 00:00 03/30/25 04:00 03/30/25 04:12 Temperature 97.8 F Pulse Rate 95 93 97 Respiratory Rate 18 Blood Pressure 142/72 H Pulse Oximetry 100 Oxygen Delivery Intake/Output Intake/Output: Intake & Output 03/27/25 03/28/25 03/29/25 03/30/25 23:59 23:59 23:59 23:59 Intake Total 1731.4 2050.0 1540.8 120 Output Total 2650 1775 2425 250 Balance -918.6 275.0 -884.2 -130 Meds/Results Medications: Active Medications Generic Name Dose Route Start Last Admin Trade Name Freq PRN Reason Stop Dose Admin Acetaminophen 650 mg 03/26/25 18:49 Acetaminophen 325 Mg Tablet PO Q4H PRN Mild Pain (1-3) or Fever Acetaminophen 650 mg 03/28/25 21:44 Acetaminophen 650 Mg Suppository RECTAL Q6H PRN Mild Pain (1-3) or Fever Hydrocodone Bitart/Acetaminophen 1 tab 03/26/25 18:49 Hydrocodone/Acetaminophen (*Crx) 5-325 Mg Tablet PO Q4H PRN Pain Atorvastatin Calcium 20 mg 03/27/25 09:30 03/29/25 08:12 Atorvastatin 20 Mg Tablet BY MOUTH Not Given DAILY USAMA Baclofen 10 mg 03/27/25 09:30 03/29/25 21:35 Baclofen 10 Mg Tablet PO 10 mg TID PRN Administration muscle spasm Bisacodyl 10 mg 03/29/25 21:00 Bisacodyl 10 Mg Suppository RECTAL HS PRN Constipation Buspirone HCl 10 mg 03/27/25 09:30 03/29/25 16:25 Buspirone Hcl 10 Mg Tablet PO 10 mg BID USAMA Administration Clonidine HCl 0.3 mg 03/27/25 09:30 03/29/25 16:25 Clonidine Hcl 0.1 Mg Tablet PO 0.3 mg TID USAMA Administration Dextrose 12.5 gm 03/26/25 18:49 Dextrose 50% 25 Gm/50 Ml Syringe IV PUSH PRN PRN Hypoglycemia Protocol Docusate Sodium 100 mg 03/27/25 09:00 Docusate Sodium 100 Mg Capsule PO BID USAMA Duloxetine HCl 60 mg 03/27/25 09:30 03/29/25 12:16 Duloxetine Hcl 60 Mg Capsule.Dr PO 60 mg DAILY USAMA Administration Empagliflozin 25 mg 03/28/25 09:30 03/29/25 08:13 Empagliflozin 25 Mg Tablet BY MOUTH Not Given DAILY USAMA Enoxaparin Sodium 40 mg 03/27/25 09:00 03/29/25 08:16 Enoxaparin 40 Mg/0.4 Ml Syringe SUB-Q 40 mg DAILY USAMA Administration Gabapentin 300 mg 03/27/25 09:30 03/29/25 08:13 Gabapentin 300 Mg Capsule PO Not Given DAILY USAMA Glucagon 1 mg 03/26/25 18:49 Glucagon For Inj 1 Mg Vial IM PRN PRN Hypoglycemia Protocol Glucose 15 gm 03/26/25 18:49 Glucose Oral Gel 15 Gm Of Glucse In 37.5 Gm Tube PO PRN PRN Hypoglycemia Protocol Hydralazine HCl 10 mg 03/29/25 16:06 Hydralazine Hcl 20 Mg/Ml Vial IV PUSH Q8H PRN Blood Pressure - High Dextrose 1,000 mls @ 100 mls/hr 03/26/25 18:49 Dextrose 5% 1,000 Ml IVPB PRN PRN Hypoglycemia Protocol Cefepime HCl 2 gm/ Sodium 50 mls @ 100 mls/hr 03/29/25 12:00 03/29/25 23:43 Chloride IVPB 100 mls/hr Q12H USAMA Administration Magnesium Sulfate 2 gm in 50 mls @ 25 mls/hr 03/30/25 06:55 Magnesium Sulf 2 Gm/Water 50ml IVPB 03/30/25 08:54 ONCE ONE Insulin Aspart 2 - 5 units 03/27/25 08:00 03/29/25 16:57 Insulin Aspart (*Bkc) 100 Units/Ml SUB-Q Not Given TIDWM [facility] Protocol Insulin Aspart 1 - 2 units 03/26/25 21:00 03/29/25 21:31 Insulin Aspart (*Bkc) 100 Units/Ml SUB-Q Not Given HS [facility] Protocol Metoprolol Tartrate 50 mg 03/27/25 09:30 03/29/25 21:33 Metoprolol Tartrate 50 Mg Tab PO 50 mg Q12HR USAMA Administration Metronidazole 500 mg 03/29/25 14:00 03/30/25 05:19 Metronidazole 500 Mg Tablet PO 500 mg Q8HR USAMA Administration Multi-Ingred Cream/Lotion/Oil/Oint 1 applic 03/27/25 09:00 03/29/25 08:15 Eucerin Cream 120 Gm Jar TOPICAL 1 applic DAILY USAMA Administration Ondansetron HCl 4 mg 03/29/25 13:47 Ondansetron Inj 4 Mg/2 Ml Vial IV PUSH Q6H PRN Nausea And Vomiting Pantoprazole Sodium 40 mg 03/27/25 09:30 03/29/25 08:14 Pantoprazole 40 Mg Tablet PO Not Given DAILY USAMA Spironolactone 25 mg 03/27/25 09:30 03/29/25 12:17 Spironolactone 25 Mg Tablet PO 25 mg DAILY USAMA Administration Radiology Results: ITS Impressions Head CT 03/26/25 19:52 IMPRESSION: 1. 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 No acute intracranial process. 2. Age-related changes including mild diffuse volume loss and mild scattered white matter hypoattenuation consistent with chronic small vessel ischemic disease. Chest/Abdomen/Pelvis CT 03/26/25 20:06 IMPRESSION: 1. Findings suspicious for cystitis and right-sided ascending urinary tract infection with early polynephritis at the upper pole the right kidney. Correlate with urinalysis. 2. Mild bilateral hydronephrosis extending to the bladder which suggests either chronic outlet obstruction or neurogenic bladder. 3. Edematous wall thickening of the sigmoid and distal descending colon suspicious for colitis. 4. Stable appearance of mild UIP pattern chronic interstitial lung disease with no pulmonary edema or other acute cardiopulmonary disease. Chest X-Ray 03/29/25 10:01 IMPRESSION: No focal infiltrate or effusion. Modified Barium Swallow 03/29/25 11:35 IMPRESSION: Pharyngeal dysphagia with laryngeal penetration and aspiration with uncontrolled thin liquids. Please correlate with speech pathologist findings and specific feeding recommendations. Venous Doppler Study 03/29/25 16:08 IMPRESSION: 1: No lower extremity deep venous thrombosis. Labs Labs: Laboratory Results - last 24 hr 03/29/25 03/29/25 03/29/25 04:57 08:08 10:30 WBC RBC Hgb Hct MCV MCH MCHC RDW Plt Count MPV Immature Gran % (Auto) Neut % (Auto) Lymph % (Auto) [place] % (Auto) Eos % (Auto) Baso % (Auto) Lymph # (Auto) [place] # (Auto) Eos # (Auto) Baso # (Auto) Abs Immat Gran (auto) Absolute Neuts (auto) Absolute Nucleated RBC Nucleated RBC % ESR 60 H Sodium Potassium Chloride Carbon Dioxide Anion Gap BUN Creatinine Estim Creat Clear Calc Estimated GFR Glucose POC Capillary Glucose 150 H Lactic Acid 2.4 H Calcium Magnesium Total Bilirubin AST ALT Alkaline Phosphatase Total Protein Albumin Lipase Procalcitonin 0.1 03/29/25 03/29/25 03/29/25 11:50 14:25 16:49 WBC RBC Hgb Hct MCV MCH MCHC RDW Plt Count MPV Immature Gran % (Auto) Neut % (Auto) Lymph % (Auto) [place] % (Auto) Eos % (Auto) Baso % (Auto) Lymph # (Auto) [place] # (Auto) Eos # (Auto) Baso # (Auto) Abs Immat Gran (auto) Absolute Neuts (auto) Absolute Nucleated RBC Nucleated RBC % ESR Sodium Potassium Chloride Carbon Dioxide Anion Gap BUN Creatinine Estim Creat Clear Calc Estimated GFR Glucose POC Capillary Glucose 147 H 120 H Lactic Acid 1.1 Calcium Magnesium Total Bilirubin AST ALT Alkaline Phosphatase Total Protein Albumin Lipase Procalcitonin 03/29/25 03/30/25 19:50 05:08 WBC 15.3 H RBC 3.66 L Hgb 10.6 L Hct 33.0 L MCV 90.2 MCH 29.0 MCHC 32.1 RDW 14.0 Plt Count 404 H MPV 9.6 Immature Gran % (Auto) 0.9 H Neut % (Auto) 66.7 Lymph % (Auto) 19.8 [place] % (Auto) 8.5 Eos % (Auto) 3.5 Baso % (Auto) 0.6 Lymph # (Auto) 3.03 [place] # (Auto) 1.3 H Eos # (Auto) 0.5 H Baso # (Auto) 0.1 Abs Immat Gran (auto) 0.13 H Absolute Neuts (auto) 10.2 H Absolute Nucleated RBC 0.000 Nucleated RBC % 0.0 ESR Sodium 134 L Potassium 3.2 L Chloride 104 Carbon Dioxide 22 Anion Gap 8 BUN 14 Creatinine 0.88 Estim Creat Clear Calc 45 Estimated GFR > 60 Glucose 114 H POC Capillary Glucose 97 Lactic Acid Calcium 8.9 Magnesium 1.5 L Total Bilirubin 0.6 AST 28 ALT 11 Alkaline Phosphatase 69 Total Protein 6.6 Albumin 3.2 L Lipase 34 Procalcitonin Quality VTE Prophylaxis VTE prophylaxis: pharmacologic ordered
[2025-03-30] MEDS: MAGNESIUM SULF 2 GM/WATER 50ML 2 GM/50 ML BAG IVPB (08:53)
[2025-03-30] MEDS: PANTOPRAZOLE 40 MG TABLET PO (08:54)
[2025-03-30] MEDS: GABAPENTIN 300 MG CAPSULE PO (08:54)
[2025-03-30] MEDS: DULoxetine HCL 60 MG CAPSULE.DR PO (08:54)
[2025-03-30] MEDS: METOPROLOL TARTRATE 50 MG TAB PO ×2 (08:54→21:32)
[2025-03-30] MEDS: SPIRONOLACTONE 25 MG TABLET PO (08:54)
[2025-03-30] MEDS: DOCUSATE SODIUM 100 MG CAPSULE PO ×2 (08:55→16:35)
[2025-03-30] MEDS: EMPAGLIFLOZIN 25 MG TABLET BY MOUTH (08:55)
[2025-03-30] MEDS: ATORVASTATIN 20 MG TABLET BY MOUTH (08:55)
[2025-03-30] MEDS: EUCERIN CREAM 120 GM JAR 1 APPLIC TOPICAL (08:55)
--- NOTE | 2025-03-30 08:56 | P.CONGI_ITS ---
Assessment and Plan Assessment and plan (1) Colitis: Code(s): K52.9 - Noninfective gastroenteritis and colitis, unspecified Status: Acute (2) Dysphagia: Qualifiers: Dysphagia type: pharyngeal phase Qualified Code(s): R13.13 - Dysphagia, pharyngeal phase Code(s): R13.10 - Dysphagia, unspecified Status: Acute (3) Constipation: Qualifiers: Constipation type: unspecified constipation type Qualified Code(s): K 59.00 - Constipation, unspecified Code(s): K59.00 - Constipation, unspecified Status: Resolved (4) Gallstones: Code(s): K80.20 - Calculus of gallbladder without cholecystitis without obstruction Status: Acute (5) Decreased appetite: Code(s): R63.0 - Anorexia Status: Acute Plan 1. Colitis/constipation: Patient has never had a colonoscopy. Per patient prior to her admission she was having daily bowel movements but according to records there was some mention of constipation. Patient was unable to say when her last BM was and it does not appear that she has had a BM since admission. CT showed edematous wall thickening of the sigmoid and distal descending colon suspicious for colitis. She currently denies any abdominal pain and exam was unremarkable but records show that she had been complaining of mild abdominal pain previously and on admission was complaining of pelvic pain. Pelvic pain likely secondary to UTI. * Patient is on baclofen and semaglutide [employer] and is currently also taking narcotics all of which are likely contributing to her constipation * Stool studies were previously ordered after colitis was noted in imaging. Patient made no mention of diarrhea. Will see what calprotectin and inflammatory markers show * No indication for emergent endoscopic evaluation unless there is a change clinically * continue docusate and will add Miralax daily and continue unless she starts having frequent diarrhea. If constipation persists, start Linzess 145 mcg daily and we can adjust dosing as needed * Patient to follow up in the office outpatient and we can discuss colonoscopy 2. Dysphagia/nausea/decreased appetite: Patient was previously complaining of nausea and decreased appetite. Due her visit today she denied these complaints but unclear if this was reliable. Patient failed bedside swallow study and MBS showed pharyngeal dysphagia. Patient admits to difficulty swallowing solid foods and large pills but denies any issues with liquids. * Patient is on Semaglutide which is likely a contributing factor to her nausea and decreased appetite. Prescribing provider may consider alternative treatment * Primary care team to continue supportive care with antiemetics * Continue working with speech therapy * If symptoms persist may consider outpatient EGD but we can discuss this during her follow-up visit 3. Cholelithiasis: CT showed large peripherally calcified gallstone at the fundus of the otherwise normal gallbladder with no gallbladder wall thickening or pericholecystic inflammatory stranding to suggest acute cholecystitis. No mention of biliary ductal dilation of obstruction. Lipase and LFT's normal. * Given that patient is asymptomatic no further workup required at this time Thank you very much for allowing me to share in the care of this very nice patient. This report may have been done utilizing a voice recognition system. Attempts have been made to correct errors. However, there may be uncorrected grammatical, spelling, and recognition errors present. GI Consult Note Consult date/time: 03/30/25 08:56 Reason for consult: Colitis HPI: Aggie Donald is a 75 year old female with PMSH of HTN, dementia, HLD, RA, diabetes, PVD, history of MD, fibromyalgia, anxiety, eczema, and tubal ligation. She presented to the emergency room [id number] with complaints of weakness and pelvic pain. Patient was admitted for RENEA, UTI and CHF. GI has been consulted for colitis. Please note that the patient is a poor historian so obtaining subjective information was somewhat difficult. Patient states that prior to her hospitalization she was having daily bowel movements but according to her records she has been having constipation. Patient is unable to say when her last bowel movement was. She admits to difficulty swallowing solid foods but denies any difficulty with liquids or pills that are not very large. She denies abdominal pain, nausea, vomiting, bloating, odynophagia, reflux, regurgitation, early satiety, appetite or weight loss, diarrhea, hematochezia, or melena. Denies any NSAID, aspirin, or anticoagulant use. Patient is unable to say if she has any family members with history of GI cancers or IBD. ENDOSCOPY HISTORY: Per patient she has never had an EGD or colonoscopy LABS AND STOOL STUDIES: Labs 03/30/2025: Sodium 134, potassium 3.2, BUN 14, creatinine 0.88, GFR >60, calcium 8.9 WBC 15, Hgb 11, Hct 33, MCV 90, platelets 404 Total bilirubin 0.6, AST 28, ALT 11, Alkaline Phos 69, albumin 3.2, lipase 34 Labs 03/26/2025: Sodium 135, potassium 4.8, BUN 37, creatinine 1.30, GFR 40, calcium 9.9 WBC 19, Hgb 13, Hct 39, MCV 88, platelets 515, INR 1.1 Total bilirubin 0.6, AST 27, ALT 16, Alkaline Phos 79, albumin 4.0, ammonia < 9, CK 28, CRP 6.1 IMAGING: Modified Barium Swallow 03/29/2025: IMPRESSION: Pharyngeal dysphagia with laryngeal penetration and aspiration with uncontrolled thin liquids. Please correlate with speech pathologist findings and specific feeding recommendations. CT chest/abd/pelvis w/contrast 03/26/2025: FINDINGS: CHEST CT: Again seen are peripheral and lower lung predominant irregular septal line thickening with associated honeycombing consistent with UIP pattern chronic interstitial lung disease. Calcified right lower lobe nodules along with calcified right hilar and mediastinal lymph nodes consistent with old granulomatous disease. No pneumonia, pulmonary edema or pleural effusion. Heart size is normal. Atherosclerotic coronary artery calcific lesion. No pericardial effusion. Thoracic aorta is normal in caliber with scattered nonhemodynamically significant atherosclerotic plaque with no dissection. Moderate thoracic spondylosis. ABDOMEN/PELVIS CT: Large peripherally calcified gallstone at the fundus of the otherwise normal gallbladder with no gallbladder wall thickening or pericholecystic inflammatory stranding to suggest acute cholecystitis. Liver, pancreas and bilateral adrenal glands are normal. Several splenic calcifications consistent with old granulomatous disease. Again seen are small regions of bilateral mild renal cortical atrophy likely sequela prior infection or infarction. There is mild bilateral hydroureteronephrosis extending to the bladder which is partially decompressed with a Jara catheter in place. There is diffuse mild mucosal thickening the bladder wall with mucosal hyperemia suspicious for cystitis. There is also urothelial enhancement extending cephalad lung the right ureter. Right renal pelvis consistent with associated ascending urinary tract infection. There is decreased cortical enhancement at the upper pole the right kidney suspicious for early pyelonephritis. Moderate diverticulosis along the sigmoid colon without adjacent from trace stranding to suggest diverticular disease. There does however appear to be diffuse edematous wall thickening along the sigmoid and distal descending colon suspicious for colitis. Small bowel and appendix are normal uterus and bilateral adnexa are unremarkable. No free intraperitoneal gas or fluid. No pathologically enlarged abdominal or pelvic lymphadenopathy. Severe disc height loss at L5-S1 with mild spondylosis and more cephalad lumbar spine. IMPRESSION: 1. Findings suspicious for cystitis and right-sided ascending urinary tract infection with early polynephritis at the upper pole the right kidney. Correlate with urinalysis. 2. Mild bilateral hydronephrosis extending to the bladder which suggests either chronic outlet obstruction or neurogenic bladder. 3. Edematous wall thickening of the sigmoid and distal descending colon suspicious for colitis. 4. Stable appearance of mild UIP pattern chronic interstitial lung disease with no pulmonary edema or other acute cardiopulmonary disease. CTA head/neck 10/17/2024: IMPRESSION: 1. Normal CTA head and neck. Percent stenosis per NASCET criteria is 0% Review of Systems 2 Review of Systems: ROS unobtainable: Yes unobtainable due to medical condition and unobtainable due to mental status [facility] Past Medical History Medical History Eczema Osteoarthritis Venous insufficiency (chronic) (peripheral) DM2 (diabetes mellitus, type 2) Non-ST elevated myocardial infarction (non-STEMI) Osteoarthritis of hands, bilateral Bilateral primary osteoarthritis of knee Essential (primary) hypertension Fibromyalgia Generalized anxiety disorder Arthralgia of multiple joints Surgical History Surgical History History of tubal ligation (~1989) Family History Family History Grandparent Acute myocardial infarction Cerebrovascular accident Heart disease Mother Colon polyp Diabetes mellitus Pancreatic adenocarcinoma Other Depression Hypertension Neuralgia of both lower extremities Social History Social History Social History: Surrogate medical decision maker: Shravan Ramsay, spouse. Code status: Full code. Smoking status: Former smoker Tobacco type: cigarettes Second hand tobacco smoke exposure: No Additional smoking assessment comments: current every day marijuana pipe smoker Alcohol intake: never Substance use: current Substance use type: marijuana Last use: 03/26/25 Do You Feel Safe in your Home?: Yes Lack of Transportation: No Lack of Food: Never True Current Housing: I Have Housing Concerned About Future Housing: No Difficulty Paying Gas/Electric Bills: No Difficulty Paying for Meds: No Currently Unemployed: No Education: Associate Degree Difficulty w/ Childcare or Family Care: No Living arrangements: with family Occupation/Education: retired Spiritual care concerns: No Agree to blood products: Yes Meds Home Medications and Allergies Home Medications ?Medication ?Instructions ?Recorded ?Confirmed ?Type lancet with blood glucose test #300 ea 01/29/23 03/26/25 Rx strips and pen needles combo pack blood sugar diagnostic (OneTouch #300 ea 05/20/23 03/26/25 Rx Verio test strips) flash glucose scanning reader #1 ea 05/20/23 03/26/25 Rx (FreeStyle Yulia 2 [place]) atorvastatin 20 mg tablet See Rx Instructions .Route 07/24/24 03/26/25 Rx .COMPLEX #90 tabs ammonium lactate 12 % lotion 1 applic topical DAILY #225 grams 10/26/24 03/26/25 Rx (AmLactin) clonidine HCl 0.3 mg tablet See Rx Instructions .Route 12/27/24 03/26/25 Rx .COMPLEX #60 tabs duloxetine 60 mg capsule,delayed See Rx Instructions .Route 01/11/25 03/26/25 Rx release .COMPLEX #90 ea spironolactone 25 mg tablet 25 mg PO DAILY #30 tabs 01/18/25 03/26/25 Rx buspirone 10 mg tablet 10 mg PO BID #60 tabs 02/06/25 03/26/25 Rx semaglutide 7 mg tablet (Rybelsus) 7 mg PO DAILY #30 tabs 02/15/25 03/26/25 Rx dapagliflozin propanediol 10 mg 10 mg PO DAILY #90 tabs 02/17/25 03/26/25 Rx tablet (Farxiga) oxybutynin chloride 10 mg 10 mg PO DAILY #30 tabs 03/02/25 03/26/25 Rx tablet,extended release 24 hr gabapentin 300 mg capsule 300 mg PO DAILY #90 caps 03/03/25 03/26/25 Rx hydrocodone 5 mg-acetaminophen 325 1 tablet PO Q6H PRN pain #120 tabs 03/03/25 03/26/25 Rx mg tablet pioglitazone 15 mg tablet 15 mg PO DAILY #90 tabs 03/03/25 03/26/25 Rx metformin 500 mg tablet,extended See Rx Instructions .Route 03/07/25 03/26/25 Rx release 24 hr .COMPLEX #180 tabs flash glucose sensor (FreeStyle #2 ea 03/23/25 03/26/25 Rx Yulia 2 Sensor kit) baclofen 10 mg tablet 10 mg PO TID PRN muscle spasm 03/26/25 03/26/25 History metoprolol tartrate 100 mg tablet See Rx Instructions .Route 03/29/25 Rx .COMPLEX #180 tabs pantoprazole 40 mg tablet,delayed See Rx Instructions .Route 03/29/25 Rx release .COMPLEX #60 tabs Allergies Allergy/AdvReac Type Severity Reaction Status Date / Time amoxicillin (From Augmentin) Allergy Unknown Verified 03/26/25 12:36 clavulanic acid (From Allergy Unknown Verified 03/26/25 12:36 Augmentin) Vital Signs Vital Signs - 24 hr 03/29/25 09:25 03/29/25 11:43 03/29/25 11:51 Temperature Pulse Rate 135 H 135 H Respiratory Rate Blood Pressure 203/113 H Pulse Oximetry Oxygen Delivery Room Air 03/29/25 11:58 03/29/25 12:03 03/29/25 12:16 Temperature Pulse Rate 135 H 134 H 135 H Respiratory Rate Blood Pressure Pulse Oximetry Oxygen Delivery 03/29/25 14:00 03/29/25 16:02 03/29/25 16:51 Temperature 97.8 F 98 F Pulse Rate 109 H 94 94 Respiratory Rate 14 18 Blood Pressure 186/95 H 131/73 Pulse Oximetry 99 99 Oxygen Delivery 03/29/25 19:53 03/29/25 20:00 03/29/25 20:00 Temperature 97.7 F Pulse Rate 88 101 H Respiratory Rate 18 Blood Pressure 154/83 H Pulse Oximetry 98 Oxygen Delivery Room Air 03/29/25 21:33 03/30/25 00:00 03/30/25 04:00 Temperature Pulse Rate 105 H 95 93 Respiratory Rate Blood Pressure Pulse Oximetry Oxygen Delivery 03/30/25 04:12 Temperature 97.8 F Pulse Rate 97 Respiratory Rate 18 Blood Pressure 142/72 H Pulse Oximetry 100 Oxygen Delivery Exam 2 Const: General: comfortable and no acute distress HENMT: Ears: TM's normal bilaterally Mouth: Yes moist mucous membranes and Yes Abnormal oral and palatal mucosa present Eyes: General: appearance normal, both eyes and all related structures S clera: sclerae normal Pupils: Equal, round and reactive pupils present Neck: Neck: supple Lymphatic: lymphadenopathy not noted Resp: Effort & Inspection: normal respiratory effort Cardio: Rate: regular rate Rhythm: regular rhythm GI: GI Palp: Yes Soft to palpation, No Tenderness to palpation present (GI) and No Guarding due to palpation present (GI) Auscultation: normal bowel sounds Urinary Catheter: Urinary Catheter: patent and draining Skin: General skin exam: normal color Neuro: Speech: normal speech Extrem: General: normal to inspection Psych: Mental Status: mental status grossly abnormal (having issues with memory) Results Labs 03/30/25 05:08 03/30/25 05:08 Labs: Short CBC 03/30/25 Range/Units 05:08 WBC 15.3 H (4.5-10.0) K/mm3 Hgb 10.6 L (12.0-15.0) g/dL Hct 33.0 L (37.0-47.0) % Plt Count 404 H (150-375) k/mm3 BMP 03/30/25 05:08 Sodium 134 L Potassium 3.2 L Chloride 104 Carbon Dioxide 22 BUN 14 Creatinine 0.88 Glucose 114 H Calcium 8.9 Liver Function 03/30/25 Range/Units 05:08 Total Bilirubin 0.6 (0.2-1.3) mg/dL AST 28 (14-36) U/L ALT 11 (6-35) U/L Alkaline Phosphatase 69 (38-126) U/L Albumin 3.2 L (3.5-5.1) g/dL
[2025-03-30] MEDS: ENOXAPARIN 40 MG/0.4 ML SYRINGE SUB-Q (08:58)
--- NOTE | 2025-03-30 09:04 | P.CDI_ITS ---
CDI Query Clarification Request BMI: 23.1 Nutritional Diagnostic Statement: Please refer to the comprehensive nutrition assessment for further information. If you agree with diagnosis of Moderate protein calorie malnutrition related to loss of appetite as evidenced by weight loss 11%/4 months; intakes <75% needs >1 month; moderate muscle wasting and fat loss. Please specify severity if known: * Mild * Moderate * Severe * Other/Unknown <Marietta Espino RN - Last Filed: 03/30/25 09:05> Clarified Diagnosis Clarified Diagnosis: moderate protein calorie malnutriton <REGLA Currie - Last Filed: 03/30/25 13:44>
[2025-03-30] MEDS: CEFEPIME 2 GM in SODIUM CHLORIDE 0.9% IV 50 ML 100 ML IVPB ×2 (11:26→23:21)
--- NOTE | 2025-03-30 14:01 | PC.NURSE ---
On 03/30/25, the RN, Kaylan, provided care and completed [employer] documentation on this patient. I have reviewed the RN's documentation and agree with the findings.
[2025-03-30] MEDS: POTASSIUM CHLORIDE 20 MEQ PACKET (FOR LIQUID) 40 MEQ PO (14:11)
[2025-03-30] MEDS: BACLOFEN 10 MG TABLET PO (21:59)
[2025-03-30] MEDS: HYDROcodone/acetaminophen (*CRX) 5-325 MG TABLET 1 TAB PO (22:00)
[2025-03-31] VITALS (11 sets, daily range): BP systolic 107–136; BP diastolic 60–69; PULSE 71–90; RESP 14–20; TEMP 35.8–36.5; O2SAT 98–100
[2025-03-31 05:12] LABS: Hematocrit 36.5 % (37.0-47.0); Hemoglobin 11.3 g/dL (12.0-15.0); Immature Granulocyte Percent A 0.8 % (0-0.5); Lymphocytes Absolute Auto 3.54 K/mm3 (0.9-3.2); Mean Corpuscular HGB Conc 31.0 g/dl (32-36); Mean Corpuscular Hemoglobin 28.5 pg (26-34); Mean Corpuscular Volume 91.9 fl (80-100); Nucleated Red Blood Cells Absolute Auto 0.000 K/mm3 (0.0-0.012); Nucleated Red Blood Cells Perc 0.0 % (0.0-0.2); Platelet Count Result 407 k/mm3 (150-375); Red Blood Count 3.97 M/mm3 (4.2-5.4); White Blood Count 15.6 K/mm3 (4.5-10.0)
[2025-03-31 05:50] LABS: Anion Gap 11 mmol/L (4-12); Blood Urea Nitrogen 18 mg/dL (7-17); Calcium 9.2 mg/dL (8.4-10.2); Carbon Dioxide 20 mmol/L (22-30); Chloride 105 mmol/L (98-107); Estimated CRCL calculation 39 ml/min; Estimated Glomerular Filt Rate 54; Glucose 119 mg/dL (65-110); Magnesium 2.4 mg/dL (1.6-2.3); Potassium 4.1 mmol/L (3.4-5.0); Sodium 136 mmol/L (137-145)
[2025-03-31] MEDS: GABAPENTIN 300 MG CAPSULE PO (09:14)
[2025-03-31] MEDS: DULoxetine HCL 60 MG CAPSULE.DR PO (09:14)
[2025-03-31] MEDS: SPIRONOLACTONE 25 MG TABLET PO (09:15)
[2025-03-31] MEDS: PANTOPRAZOLE 40 MG TABLET PO (09:15)
[2025-03-31] MEDS: METOPROLOL TARTRATE 50 MG TAB PO ×2 (09:15→21:06)
[2025-03-31] MEDS: ATORVASTATIN 20 MG TABLET BY MOUTH (09:15)
[2025-03-31] MEDS: ENOXAPARIN 40 MG/0.4 ML SYRINGE SUB-Q (09:15)
[2025-03-31] MEDS: EUCERIN CREAM 120 GM JAR 1 APPLIC TOPICAL (09:15)
[2025-03-31] MEDS: EMPAGLIFLOZIN 25 MG TABLET BY MOUTH (09:15)
[2025-03-31] MEDS: DOCUSATE SODIUM 100 MG CAPSULE PO ×2 (09:15→17:55)
[2025-03-31] MEDS: CEFEPIME 2 GM in SODIUM CHLORIDE 0.9% IV 50 ML 100 ML IVPB ×2 (12:23→23:58)
--- NOTE | 2025-03-31 15:53 | PM.IMPN ---
Progress Note: A&P Assessment and Plan (1) RENEA (acute kidney injury): Code(s): N17.9 - Acute kidney failure, unspecified Status: Resolved Plan (1) Sepsis: Code(s): A41.9 - Sepsis, unspecified organism Status: Acute Assessment and Plan: - criteria met on admission with leukocytosis, tachycardia. Meeting severe sepsis criteria 03/29/25 with leukocytosis, tachycardia and lactic acidosis. Now improved. Lactic acid and WBC trended down. - BP elevated - unclear source-initially thought to be secondary to UTI however urine culture only showing urogenital ricardo. CT A/P does show concern for colitis although patient denies abdominal pain and she is not having any nausea vomiting or diarrhea. -blood cultures x2 NGTD -given increasing leukocytosis and lactic acidosis, antibiotics broadened 03/29 (cefepime and flagyl) wbc 15 k UTI (urinary tract infection): Code(s): N39.0 - Urinary tract infection, site not specified Status: Acute Assessment and Plan: - UA with 3+ LE, 51-100 WBC, negative nitrates, yeast present - admit CT with evidence of cystitis and right-sided ascending UTI with early pyelonephritis - UA with mixed urogenital ricardo so doubt true UTI - on cefepime as above Colitis: Code(s): K52.9 - Noninfective gastroenteritis and colitis, unspecified Status: Acute Assessment and Plan: 03/26/25 CT showed Edematous wall thickening of the sigmoid and distal descending colon suspicious for colitis. 4. Stable appearance of mild UIP pattern chronic interstitial lung disease with no pulmonary edema or other acute cardiopulmonary disease. Stool for c-diff/culture initially ordered, but patient not having diarrhea. - GI consulted, Recommended outpatient colonoscopy. - patient improved with cefepime and Flagyl. Cellulitis of bilateral lower extremities Continue cefepime, Flagyl p.o., add vancomycin Impaired swallowing: Code(s): R13.10 - Dysphagia, unspecified Status: Acute Assessment and Plan: -03/27 failed bedside swallow eval. 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 Recheck in AM corrected (7) Urinary retention: Code(s): R33.9 - Retention of urine, unspecified Status: Acute Assessment and Plan: - s/p starr - urology consulted due to hydronephrosis and concern for chronic bladder outlet obstruction on CT. Recommended treatment of UTI, discontinue oxybutynin. Continue starr while treating UTI. attempt voiding trial Follow-up with urology as outpatient. (8) RENEA (acute kidney injury): Code(s): N17.9 - Acute kidney failure, unspecified Status: Resolved Assessment and Plan: -Admit Cr 1.3. Baseline creatinine 0.9. - likely prerenal due to decreased PO intake -s/p IV fluids with improvement - monitor BMP (9) Congestive heart failure: Code(s): I50.9 - Heart failure, unspecified Status: Chronic Assessment and Plan: -echo 12/2022 with EF 70%, indeterminate diastolic function -Pt appears to be euvolemic. No s/s of fluid overload. -Holding diuretics due to infection and dehydration, resume as able (10) Constipation: Qualifiers: Constipation type: unspecified constipation type Qualified Code(s): K59.00 - Constipation, unspecified Code(s): K59.00 - Constipation, unspecified Status: Resolved Assessment and Plan: Patient to follow up GI in the office outpatient and we can discuss colonoscopy (11) Generalized weakness: Code(s): R53.1 - Weakness Status: Acute Assessment and Plan: - PT/OT recommended SNF - care coordination assisting with placement (12) Cognitive impairment: Code(s): R41.89 - Other symptoms and signs involving cognitive functions and awareness Status: Acute Assessment and Plan: - reports patient has had issues with her memory for over a year. No history of formal dementia eval. - delirium precautions - recommend formal dementia eval outpatient (13) Hypoglycemia: Code(s): E16.2 - Hypoglycemia, unspecified Status: Resolved Assessment and Plan: - s/p D5 infusion - resolved once diet restarted (14) DM2 (diabetes mellitus, type 2): Qualifiers: Diabetes mellitus complication status: with hyperglycemia Diabetes mellitus superintendent terminal insulin use: without residential use Qualified Code(s): E11.65 - Type 2 diabetes mellitus with hyperglycemia Code(s): E11.9 - Type 2 diabetes mellitus without complications Status: Chronic Assessment and Plan: -hold metformin while in hospital -[facility]-[place] [facility] -SSI (15) Essential (primary) hypertension: Code(s): I10 - Essential (primary) hypertension Status: Chronic Assessment and Plan: - resumed home metoprolol, aldactone, clonidine with improvement (16) Pressure ulcer: Code(s): L89.90 - Pressure ulcer of unspecified site, unspecified stage Status: Acute Assessment and Plan: -Wound care consulted (17) Gallstones: Code(s): K80.20 - Calculus of gallbladder without cholecystitis without obstruction Status: Acute Assessment and Plan: -CT showed large peripherally calcified gallstone at the fundus of the otherwise normal gallbladder with no gallbladder wall thickening or pericholecystic inflammatory stranding to suggest acute cholecystitis. No mention of biliary ductal dilation of obstruction. Lipase and LFT's normal. - GI recommended no further work-up given patient is asymptomatic. Subjective Date/time seen: 03/31/25 15:53 Interval history: I saw exam patient today, patient has pain bilateral lower extremities, swelling and tender by palpation Exam Narrative: General: NAD Eyes: EOMI ENT: neck supple Cardiovascular: regular rate and rhythm Respiratory: Clear to auscultation, respirations even and unlabored on RA Gastrointestinal: Soft, non tender Genitourinary: no suprapubic tenderness Musculoskeletal: Bilateral lower extremities edema Skin: Redness, tender and warm by palpation Neuro: Alert and oriented to self, place, knows the president, confused to month and year. Psych: Mood appropriate Objective Data Vital Signs Vital Signs: Vital Signs - 24 hr 03/30/25 16:00 03/30/25 19:45 03/30/25 20:00 Temperature 98.3 F Pulse Rate 89 90 Respiratory Rate 16 Blood Pressure 119/66 Pulse Oximetry 100 Oxygen Delivery Room Air 03/30/25 20:00 03/30/25 21:32 03/31/25 00:00 Temperature Pulse Rate 92 89 73 Respiratory Rate Blood Pressure Pulse Oximetry Oxygen Delivery 03/31/25 04:00 03/31/25 04:29 03/31/25 08:00 Temperature 97.7 F Pulse Rate 71 75 71 Respiratory Rate 18 Blood Pressure 136/69 Pulse Oximetry 99 Oxygen Delivery 03/31/25 09:15 03/31/25 09:20 03/31/25 12:00 Temperature Pulse Rate 90 80 Respiratory Rate Blood Pressure Pulse Oximetry Oxygen Delivery Room Air 03/31/25 13:51 Temperature 96.5 F L Pulse Rate 78 Respiratory Rate 14 Blood Pressure 107/60 Pulse Oximetry 98 Oxygen Delivery Intake/Output Intake/Output: Intake & Output 03/28/25 03/29/25 03/30/25 03/31/25 23:59 23:59 23:59 23:59 Intake Total 2050.0 1540.8 1410 110 Output Total 1775 2425 850 500 Balance 275.0 -884.2 560 -390 Meds/Results Medications: Active Medications Generic Name Dose Route Start Last Admin Trade Name Freq PRN Reason Stop Dose Admin Acetaminophen 650 mg 03/26/25 18:49 Acetaminophen 325 Mg Tablet PO Q4H PRN Mild Pain (1-3) or Fever Acetaminophen 650 mg 03/28/25 21:44 Acetaminophen 650 Mg Suppository RECTAL Q6H PRN Mild Pain (1-3) or Fever Hydrocodone Bitart/Acetaminophen 1 tab 03/26/25 18:49 03/30/25 22:00 Hydrocodone/Acetaminophen (*Crx) 5-325 Mg Tablet PO 1 tab Q4H PRN Administration Pain Atorvastatin Calcium 20 mg 03/27/25 09:30 03/31/25 09:15 Atorvastatin 20 Mg Tablet BY MOUTH 20 mg DAILY [facility] Administration Baclofen 10 mg 03/27/25 09:30 03/30/25 21:59 Baclofen 10 Mg Tablet PO 10 mg TID PRN Administration muscle spasm Bisacodyl 10 mg 03/29/25 21:00 Bisacodyl 10 Mg Suppository RECTAL HS PRN Constipation Buspirone HCl 10 mg 03/27/25 09:30 03/31/25 09:15 Buspirone Hcl 10 Mg Tablet PO 10 mg BID USAMA Administration Clonidine HCl 0.3 mg 03/27/25 09:30 03/31/25 13:13 Clonidine Hcl 0.1 Mg Tablet PO 0.3 mg TID USAMA Administration Dextrose 12.5 gm 03/26/25 18:49 Dextrose 50% 25 Gm/50 Ml Syringe IV PUSH PRN PRN Hypoglycemia Protocol Docusate Sodium 100 mg 03/27/25 09:00 03/31/25 09:15 Docusate Sodium 100 Mg Capsule PO 100 mg BID USAMA Administration Duloxetine HCl 60 mg 03/27/25 09:30 03/31/25 09:14 Duloxetine Hcl 60 Mg Capsule. PO 60 mg DAILY [facility] Administration Empagliflozin 25 mg 03/28/25 09:30 03/31/25 09:15 Empagliflozin 25 Mg Tablet BY MOUTH 25 mg DAILY [facility] Administration Enoxaparin Sodium 40 mg 03/27/25 09:00 03/31/25 09:15 Enoxaparin 40 Mg/0.4 Ml Syringe SUB-Q 40 mg DAILY [facility]AMA Administration Gabapentin 300 mg 03/27/25 09:30 03/31/25 09:14 Gabapentin 300 Mg Capsule PO 300 mg DAILY [facility] Administration Glucagon 1 mg 03/26/25 18:49 Glucagon For Inj 1 Mg Vial IM PRN PRN Hypoglycemia Protocol Glucose 15 gm 03/26/25 18:49 Glucose Oral Gel 15 Gm Of Glucse In 37.5 Gm Tube PO PRN PRN Hypoglycemia Protocol Hydralazine HCl 10 mg 03/29/25 16:06 Hydralazine Hcl 20 Mg/Ml Vial IV PUSH Q8H PRN Blood Pressure - High Dextrose 1,000 mls @ 100 mls/hr 03/26/25 18:49 Dextrose 5% 1,000 Ml IVPB PRN PRN Hypoglycemia Protocol Cefepime HCl 2 gm/ Sodium 50 mls @ 100 mls/hr 03/29/25 12:00 03/31/25 12:23 Chloride IVPB 100 mls/hr Q12H [facility]AMA Administration Insulin Aspart 2 - 5 units 03/27/25 08:00 03/31/25 12:23 Insulin Aspart (*Bkc) 100 Units/Ml SUB-Q Not Given TIDWM [facility] Protocol Insulin Aspart 1 - 2 units 03/26/25 21:00 03/30/25 21:38 Insulin Aspart (*Bkc) 100 Units/Ml SUB-Q Not Given HS [facility] Protocol Metoprolol Tartrate 50 mg 03/27/25 09:30 03/31/25 09:15 Metoprolol Tartrate 50 Mg Tab PO 50 mg Q12HR [facility] Administration Metronidazole 500 mg 03/29/25 14:00 03/31/25 13:13 Metronidazole 500 Mg Tablet PO 500 mg Q8HR [facility]AMA Administration Multi-Ingred Cream/Lotion/Oil/Oint 1 applic 03/27/25 09:00 03/31/25 09:15 Eucerin Cream 120 Gm Jar TOPICAL 1 applic DAILY [facility] Administration Ondansetron HCl 4 mg 03/29/25 13:47 Ondansetron Inj 4 Mg/2 Ml Vial IV PUSH Q6H PRN Nausea And Vomiting Pantoprazole Sodium 40 mg 03/27/25 09:30 03/31/25 09:15 Pantoprazole 40 Mg Tablet PO 40 mg DAILY [facility] Administration Polyethylene Glycol 17 gm 03/31/25 09:00 03/31/25 09:15 Polyethylene Glycol 3350 17 Gm Powd.Pack PO 17 gm QAM [facility] Administration Spironolactone 25 mg 03/27/25 09:30 03/31/25 09:15 Spironolactone 25 Mg Tablet PO 25 mg DAILY USAMA Administration Radiology Results: ITS Impressions Head CT 03/26/25 19:52 IMPRESSION: 1. 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 No acute intracranial process. 2. Age-related changes including mild diffuse volume loss and mild scattered white matter hypoattenuation consistent with chronic small vessel ischemic disease. Chest/Abdomen/Pelvis CT 03/26/25 20:06 IMPRESSION: 1. Findings suspicious for cystitis and right-sided ascending urinary tract infection with early polynephritis at the upper pole the right kidney. Correlate with urinalysis. 2. Mild bilateral hydronephrosis extending to the bladder which suggests either chronic outlet obstruction or neurogenic bladder. 3. Edematous wall thickening of the sigmoid and distal descending colon suspicious for colitis. 4. Stable appearance of mild UIP pattern chronic interstitial lung disease with no pulmonary edema or other acute cardiopulmonary disease. Chest X-Ray 03/29/25 10:01 IMPRESSION: No focal infiltrate or effusion. Modified Barium Swallow 03/29/25 11:35 IMPRESSION: Pharyngeal dysphagia with laryngeal penetration and aspiration with uncontrolled thin liquids. Please correlate with speech pathologist findings and specific feeding recommendations. Venous Doppler Study 03/29/25 16:08 IMPRESSION: 1: No lower extremity deep venous thrombosis. Labs Labs: Laboratory Results - last 24 hr 03/30/25 03/30/25 03/31/25 16:59 19:48 04:39 WBC 15.6 H RBC 3.97 L Hgb 11.3 L Hct 36.5 L MCV 91.9 MCH 28.5 MCHC 31.0 L RDW 13.9 Plt Count 407 H MPV 10.0 Immature Gran % (Auto) 0.8 H Neut % (Auto) 63.4 Lymph % (Auto) 22.8 [place] % (Auto) 8.5 Eos % (Auto) 3.9 Baso % (Auto) 0.6 Lymph # (Auto) 3.54 H [place] # (Auto) 1.3 H Eos # (Auto) 0.6 H Baso # (Auto) 0.1 Abs Immat Gran (auto) 0.12 H Absolute Neuts (auto) 9.9 H Absolute Nucleated RBC 0.000 Nucleated RBC % 0.0 Sodium 136 L Potassium 4.1 Chloride 105 Carbon Dioxide 20 L Anion Gap 11 BUN 18 H Creatinine 1.01 H Estim Creat Clear Calc 39 Estimated GFR 54 L Glucose 119 H POC Capillary Glucose 129 H 142 H Calcium 9.2 Magnesium 2.4 H 03/31/25 03/31/25 07:58 12:06 WBC RBC Hgb Hct MCV MCH MCHC RDW Plt Count MPV Immature Gran % (Auto) Neut % (Auto) Lymph % (Auto) [place] % (Auto) Eos % (Auto) Baso % (Auto) Lymph # (Auto) [place] # (Auto) Eos # (Auto) Baso # (Auto) Abs Immat Gran (auto) Absolute Neuts (auto) Absolute Nucleated RBC Nucleated RBC % Sodium Potassium Chloride Carbon Dioxide Anion Gap BUN Creatinine Estim Creat Clear Calc Estimated GFR Glucose POC Capillary Glucose 122 H 131 H Calcium Magnesium
[2025-03-31] MEDS: VANCOMYCIN 1,500 MG/NS 500 ML 1,500 MG/500 ML BAG 250 MG IVPB (18:53)
--- NOTE | 2025-03-31 19:19 | WPDGIPROGNO ---
Progress Note: A&P Assessment and Plan (1) Sepsis: Code(s): A41.9 - Sepsis, unspecified organism Status: Acute Assessment and Plan: on abx blood cx negative ? uti less likely colitis- no diarrhea, some thickening in colon but non specific she can follow-up as outpatient and then discuss if would like to have colonoscopy will follow as needed (2) Encephalopathy: Code(s): G93.40 - Encephalopathy, unspecified Status: Acute (3) Dysphagia: Qualifiers: Dysphagia type: pharyngeal phase Qualified Code(s): R13.13 - Dysphagia, pharyngeal phase Code(s): R13.10 - Dysphagia, unspecified Status: Acute Assessment and Plan: reviewed MBS special diet to prevent aspiration (4) UTI (urinary tract infection): Code(s): N39.0 - Urinary tract infection, site not specified Status: Acute (5) Urinary retention: Code(s): R33.9 - Retention of urine, unspecified Status: Acute (6) Colitis: Code(s): K52.9 - Noninfective gastroenteritis and colitis, unspecified Status: Acute Subjective Date/time seen: 03/31/25 19:19 Interval history: no new events pain in legs no diarrhea Review of Systems Review of Systems: All systems reviewed & are unremarkable except as noted in HPI and below Exam Narrative: General: NAD Eyes: EOMI ENT: neck supple Cardiovascular: regular rate and rhythm Respiratory: Clear to auscultation, respirations even and unlabored on RA Gastrointestinal: Soft, non tender Genitourinary: no suprapubic tenderness Musculoskeletal: Bilateral lower extremities edema Skin: Redness, tender and warm by palpation Neuro: Alert and oriented to self, place, knows the president, confused to month and year. Psych: Mood appropriate Objective Data Vital Signs Vital Signs: Vital Signs - 24 hr 03/30/25 19:45 03/30/25 20:00 03/30/25 20:00 Temperature 98.3 F Pulse Rate 90 92 Respiratory Rate 16 Blood Pressure 119/66 Pulse Oximetry 100 Oxygen Delivery Room Air 03/30/25 21:32 03/31/25 00:00 03/31/25 04:00 Temperature Pulse Rate 89 73 71 Respiratory Rate Blood Pressure Pulse Oximetry Oxygen Delivery 03/31/25 04:29 03/31/25 08:00 03/31/25 09:15 Temperature 97.7 F Pulse Rate 75 71 90 Respiratory Rate 18 Blood Pressure 136/69 Pulse Oximetry 99 Oxygen Delivery 03/31/25 09:20 03/31/25 12:00 03/31/25 13:51 Temperature 96.5 F L Pulse Rate 80 78 Respiratory Rate 14 Blood Pressure 107/60 Pulse Oximetry 98 Oxygen Delivery Room Air 03/31/25 16:00 Temperature Pulse Rate 75 Respiratory Rate Blood Pressure Pulse Oximetry Oxygen Delivery Intake/Output Intake/Output: Intake & Output 03/28/25 03/29/25 03/30/25 03/31/25 23:59 23:59 23:59 23:59 Intake Total 2050.0 1540.8 1410 110 Output Total 1775 2425 850 500 Balance 275.0 -884.2 560 -390 Meds/Results Medications: Active Medications Generic Name Dose Route Start Last Admin Trade Name Freq PRN Reason Stop Dose Admin Acetaminophen 650 mg 03/26/25 18:49 Acetaminophen 325 Mg Tablet PO Q4H PRN Mild Pain (1-3) or Fever Acetaminophen 650 mg 03/28/25 21:44 Acetaminophen 650 Mg Suppository RECTAL Q6H PRN Mild Pain (1-3) or Fever Hydrocodone Bitart/Acetaminophen 1 tab 03/26/25 18:49 03/30/25 22:00 Hydrocodone/Acetaminophen (*Crx) 5-325 Mg Tablet PO 1 tab Q4H PRN Administration Pain Atorvastatin Calcium 20 mg 03/27/25 09:30 03/31/25 09:15 Atorvastatin 20 Mg Tablet BY MOUTH 20 mg DAILY [facility]AMA Administration Baclofen 10 mg 03/27/25 09:30 03/30/25 21:59 Baclofen 10 Mg Tablet PO 10 mg TID PRN Administration muscle spasm Bisacodyl 10 mg 03/29/25 21:00 Bisacodyl 10 Mg Suppository RECTAL HS PRN Constipation Buspirone HCl 10 mg 03/27/25 09:30 03/31/25 17:55 Buspirone Hcl 10 Mg Tablet PO 10 mg BID [facility]AMA Administration Clonidine HCl 0.3 mg 03/27/25 09:30 03/31/25 17:55 Clonidine Hcl 0.1 Mg Tablet PO 0.3 mg TID USAMA Administration Dextrose 12.5 gm 03/26/25 18:49 Dextrose 50% 25 Gm/50 Ml Syringe IV PUSH PRN PRN Hypoglycemia Protocol Docusate Sodium 100 mg 03/27/25 09:00 03/31/25 17:55 Docusate Sodium 100 Mg Capsule PO 100 mg BID USAMA Administration Duloxetine HCl 60 mg 03/27/25 09:30 03/31/25 09:14 Duloxetine Hcl 60 Mg Capsule.Dr PO 60 mg DAILY [facility]AMA Administration Empagliflozin 25 mg 03/28/25 09:30 03/31/25 09:15 Empagliflozin 25 Mg Tablet BY MOUTH 25 mg DAILY [facility]AMA Administration Enoxaparin Sodium 40 mg 03/27/25 09:00 03/31/25 09:15 Enoxaparin 40 Mg/0.4 Ml Syringe SUB-Q 40 mg DAILY [facility] Administration Gabapentin 300 mg 03/27/25 09:30 03/31/25 09:14 Gabapentin 300 Mg Capsule PO 300 mg DAILY [facility] Administration Glucagon 1 mg 03/26/25 18:49 Glucagon For Inj 1 Mg Vial IM PRN PRN Hypoglycemia Protocol Glucose 15 gm 03/26/25 18:49 Glucose Oral Gel 15 Gm Of Glucse In 37.5 Gm Tube PO PRN PRN Hypoglycemia Protocol Hydralazine HCl 10 mg 03/29/25 16:06 Hydralazine Hcl 20 Mg/Ml Vial IV PUSH Q8H PRN Blood Pressure - High Dextrose 1,000 mls @ 100 mls/hr 03/26/25 18:49 Dextrose 5% 1,000 Ml IVPB PRN PRN Hypoglycemia Protocol Cefepime HCl 2 gm/ Sodium 50 mls @ 100 mls/hr 03/29/25 12:00 03/31/25 12:23 Chloride IVPB 100 mls/hr Q12H [facility] Administration Vancomycin HCl 1,500 mg in 500 mls @ 250 mls/hr 03/31/25 19:00 03/31/25 18:53 Vancomycin 1,500 Mg/Ns 500 Ml IVPB 03/31/25 20:59 250 mls/hr ONCE ONE Administration Vancomycin HCl 1,250 mg in 250 mls @ 166.667 mls/hr 04/01/25 19:00 Vancomycin 1,250 Mg/Ns 250 Ml IVPB Q24H [facility] Insulin Aspart 2 - 5 units 03/27/25 08:00 03/31/25 17:09 Insulin Aspart (*Bkc) 100 Units/Ml SUB-Q Not Given TIDWM [facility] Protocol Insulin Aspart 1 - 2 units 03/26/25 21:00 03/30/25 21:38 Insulin Aspart (*Bkc) 100 Units/Ml SUB-Q Not Given HS [facility] Protocol Metoprolol Tartrate 50 mg 03/27/25 09:30 03/31/25 09:15 Metoprolol Tartrate 50 Mg Tab PO 50 mg Q12HR [facility]AMA Administration Metronidazole 500 mg 03/29/25 14:00 03/31/25 13:13 Metronidazole 500 Mg Tablet PO 500 mg Q8HR [facility]AMA Administration Multi-Ingred Cream/Lotion/Oil/Oint 1 applic 03/27/25 09:00 03/31/25 09:15 Eucerin Cream 120 Gm Jar TOPICAL 1 applic DAILY [facility]AMA Administration Ondansetron HCl 4 mg 03/29/25 13:47 Ondansetron Inj 4 Mg/2 Ml Vial IV PUSH Q6H PRN Nausea And Vomiting Pantoprazole Sodium 40 mg 03/27/25 09:30 03/31/25 09:15 Pantoprazole 40 Mg Tablet PO 40 mg DAILY [facility] Administration Polyethylene Glycol 17 gm 03/31/25 09:00 03/31/25 09:15 Polyethylene Glycol 3350 17 Gm Powd.Pack PO 17 gm QAM [facility] Administration Spironolactone 25 mg 03/27/25 09:30 03/31/25 09:15 Spironolactone 25 Mg Tablet PO 25 mg DAILY [facility] Administration Vancomycin HCl 1 each 03/31/25 18:25 Vancomycin Pharmacist To Dose IVPB PER PROTOCOL [facility] Radiology Results: ITS Impressions Head CT 03/26/25 19:52 IMPRESSION: 1. 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 No acute intracranial process. 2. Age-related changes including mild diffuse volume loss and mild scattered white matter hypoattenuation consistent with chronic small vessel ischemic disease. Chest/Abdomen/Pelvis CT 03/26/25 20:06 IMPRESSION: 1. Findings suspicious for cystitis and right-sided ascending urinary tract infection with early polynephritis at the upper pole the right kidney. Correlate with urinalysis. 2. Mild bilateral hydronephrosis extending to the bladder which suggests either chronic outlet obstruction or neurogenic bladder. 3. Edematous wall thickening of the sigmoid and distal descending colon suspicious for colitis. 4. Stable appearance of mild UIP pattern chronic interstitial lung disease with no pulmonary edema or other acute cardiopulmonary disease. Chest X-Ray 03/29/25 10:01 IMPRESSION: No focal infiltrate or effusion. Modified Barium Swallow 03/29/25 11:35 IMPRESSION: Pharyngeal dysphagia with laryngeal penetration and aspiration with uncontrolled thin liquids. Please correlate with speech pathologist findings and specific feeding recommendations. Venous Doppler Study 03/29/25 16:08 IMPRESSION: 1: No lower extremity deep venous thrombosis. Labs Labs: Laboratory Results - last 24 hr 03/30/25 03/31/25 03/31/25 19:48 04:39 07:58 WBC 15.6 H RBC 3.97 L Hgb 11.3 L Hct 36.5 L MCV 91.9 MCH 28.5 MCHC 31.0 L RDW 13.9 Plt Count 407 H MPV 10.0 Immature Gran % (Auto) 0.8 H Neut % (Auto) 63.4 Lymph % (Auto) 22.8 [place] % (Auto) 8.5 Eos % (Auto) 3.9 Baso % (Auto) 0.6 Lymph # (Auto) 3.54 H [place] # (Auto) 1.3 H Eos # (Auto) 0.6 H Baso # (Auto) 0.1 Abs Immat Gran (auto) 0.12 H Absolute Neuts (auto) 9.9 H Absolute Nucleated RBC 0.000 Nucleated RBC % 0.0 Sodium 136 L Potassium 4.1 Chloride 105 Carbon Dioxide 20 L Anion Gap 11 BUN 18 H Creatinine 1.01 H Estim Creat Clear Calc 39 Estimated GFR 54 L Glucose 119 H POC Capillary Glucose 142 H 122 H Calcium 9.2 Magnesium 2.4 H 03/31/25 03/31/25 12:06 16:58 WBC RBC Hgb Hct MCV MCH MCHC RDW Plt Count MPV Immature Gran % (Auto) Neut % (Auto) Lymph % (Auto) [place] % (Auto) Eos % (Auto) Baso % (Auto) Lymph # (Auto) [place] # (Auto) Eos # (Auto) Baso # (Auto) Abs Immat Gran (auto) Absolute Neuts (auto) Absolute Nucleated RBC Nucleated RBC % Sodium Potassium Chloride Carbon Dioxide Anion Gap BUN Creatinine Estim Creat Clear Calc Estimated GFR Glucose POC Capillary Glucose 131 H 109 H Calcium Magnesium
--- NOTE | 2025-03-31 23:43 | PC.NURSE ---
2330 PT UP TO COMMODE CANNOT URINATE, BLADDER SCAN OF [id number], [place] NOTIFIED, ORDERS RECEIVED
[2025-03-31] MEDS: TAMSULOSIN HCL 0.4 MG CAPSULE PO (23:59)
[2025-04-01] VITALS (11 sets, daily range): BP systolic 100–122; BP diastolic 62–66; PULSE 72–88; RESP 14–16; TEMP 36.2–36.6; O2SAT 98–100
[2025-04-01 04:54] LABS: Hematocrit 36.1 % (37.0-47.0); Hemoglobin 11.5 g/dL (12.0-15.0); Immature Granulocyte Percent A 0.9 % (0-0.5); Lymphocytes Absolute Auto 2.96 K/mm3 (0.9-3.2); Mean Corpuscular HGB Conc 31.9 g/dl (32-36); Mean Corpuscular Hemoglobin 29.0 pg (26-34); Mean Corpuscular Volume 90.9 fl (80-100); Nucleated Red Blood Cells Absolute Auto 0.000 K/mm3 (0.0-0.012); Nucleated Red Blood Cells Perc 0.0 % (0.0-0.2); Platelet Count Result 393 k/mm3 (150-375); Red Blood Count 3.97 M/mm3 (4.2-5.4); White Blood Count 13.0 K/mm3 (4.5-10.0)
[2025-04-01 05:08] LABS: Anion Gap 5 mmol/L (4-12); Blood Urea Nitrogen 16 mg/dL (7-17); Calcium 9.0 mg/dL (8.4-10.2); Carbon Dioxide 24 mmol/L (22-30); Chloride 105 mmol/L (98-107); Estimated CRCL calculation 37 ml/min; Estimated Glomerular Filt Rate 50; Glucose 128 mg/dL (65-110); Magnesium 2.0 mg/dL (1.6-2.3); Potassium 4.0 mmol/L (3.4-5.0); Sodium 134 mmol/L (137-145)
[2025-04-01] MEDS: SPIRONOLACTONE 25 MG TABLET PO (08:33)
[2025-04-01] MEDS: DOCUSATE SODIUM 100 MG CAPSULE PO (08:33)
[2025-04-01] MEDS: ENOXAPARIN 40 MG/0.4 ML SYRINGE SUB-Q (08:33)
[2025-04-01] MEDS: GABAPENTIN 300 MG CAPSULE PO (08:33)
[2025-04-01] MEDS: METOPROLOL TARTRATE 50 MG TAB PO ×2 (08:33→21:16)
[2025-04-01] MEDS: EMPAGLIFLOZIN 25 MG TABLET BY MOUTH (08:33)
[2025-04-01] MEDS: PANTOPRAZOLE 40 MG TABLET PO (08:33)
[2025-04-01] MEDS: DULoxetine HCL 60 MG CAPSULE.DR PO (08:33)
[2025-04-01] MEDS: ATORVASTATIN 20 MG TABLET BY MOUTH (08:33)
[2025-04-01] MEDS: EUCERIN CREAM 120 GM JAR 1 APPLIC TOPICAL (08:34)
--- NOTE | 2025-04-01 10:26 | P.PNIM_ITS ---
Progress Note: A&P Assessment and Plan (1) RENEA (acute kidney injury): Code(s): N17.9 - Acute kidney failure, unspecified Status: Resolved Plan (1) Sepsis: Code(s): A41.9 - Sepsis, unspecified organism Status: Acute Assessment and Plan: - criteria met on admission with leukocytosis, tachycardia. Meeting severe sepsis criteria 03/29/25 with leukocytosis, tachycardia and lactic acidosis. Now improved. Lactic acid and WBC trended down. - BP elevated - unclear source-initially thought to be secondary to UTI however urine culture only showing urogenital ricardo. CT A/P does show concern for colitis although patient denies abdominal pain and she is not having any nausea vomiting or diarrhea. -blood cultures x2 NGTD -given increasing leukocytosis and lactic acidosis, antibiotics broadened 03/29 (cefepime and flagyl) wbc is trending down f/u procalcitonin UTI (urinary tract infection): Code(s): N39.0 - Urinary tract infection, site not specified Status: Acute Assessment and Plan: - UA with 3+ LE, 51-100 WBC, negative nitrates, yeast present - admit CT with evidence of cystitis and right-sided ascending UTI with early pyelonephritis - UA with mixed urogenital ricardo so doubt true UTI - on cefepime as above Colitis: Code(s): K52.9 - Noninfective gastroenteritis and colitis, unspecified Status: Acute Assessment and Plan: 03/26/25 CT showed Edematous wall thickening of the sigmoid and distal descending colon suspicious for colitis. 4. Stable appearance of mild UIP pattern chronic interstitial lung disease with no pulmonary edema or other acute cardiopulmonary disease. Stool for c-diff/culture initially ordered, but patient not having diarrhea. - GI consulted, Recommended outpatient colonoscopy. patient improved with cefepime dc Flagyl. Cellulitis of bilateral lower extremities Continue cefepime, , add vancomycin Impaired swallowing: Code(s): R13.10 - Dysphagia, unspecified Status: Acute Assessment and Plan: -03/27 failed bedside swallow eval. -s/p MBS 03/29/25 - speech recommended minced and moist, moderately thick liquids - [employer] following Decreased appetite: Code(s): R63.0 - Anorexia Status: Acute Assessment and Plan: -likely multifactorial in setting of acute illness, patient is also on semaglutide (6) Hypokalemia: Code(s): E87.6 - Hypokalemia Status: Acute Assessment and Plan: - K+ 3.2, mag 1.5 - replacement ordered. Recheck in AM corrected (7) Urinary retention: Code(s): R33.9 - Retention of urine, unspecified Status: Acute Assessment and Plan: - s/p starr - urology consulted due to hydronephrosis and concern for chronic bladder outlet obstruction on CT. Recommended treatment of UTI, discontinue oxybutynin. Continue starr while treating UTI. attempt voiding trial Follow-up with urology as outpatient. (8) RENEA (acute kidney injury): Code(s): N17.9 - Acute kidney failure, unspecified Status: Resolved Assessment and Plan: -Admit Cr 1.3. Baseline creatinine 0.9. - likely prerenal due to decreased PO intake -s/p IV fluids with improvement - monitor BMP (9) Congestive heart failure: Code(s): I50.9 - Heart failure, unspecified Status: Chronic Assessment and Plan: -echo 12/2022 with EF 70%, indeterminate diastolic function -Pt appears to be euvolemic. No s/s of fluid overload. -Holding diuretics due to infection and dehydration, resume as able (10) Constipation: Qualifiers: Constipation type: unspecified constipation type Qualified Code(s): K59.00 - Constipation, unspecified Code(s): K59.00 - Constipation, unspecified Status: Resolved Assessment and Plan: Patient to follow up GI in the office outpatient and we can discuss colonoscopy (11) Generalized weakness: Code(s): R53.1 - Weakness Status: Acute Assessment and Plan: - PT/OT recommended SNF - care coordination assisting with placement (12) Cognitive impairment: Code(s): R41.89 - Other symptoms and signs involving cognitive functions and awareness Status: Acute Assessment and Plan: - reports patient has had issues with her memory for over a year. No history of formal dementia eval. - delirium precautions - recommend formal dementia eval outpatient (13) Hypoglycemia: Code(s): E16.2 - Hypoglycemia, unspecified Status: Resolved Assessment and Plan: - s/p D5 infusion - resolved once diet restarted (14) DM2 (diabetes mellitus, type 2): Qualifiers: Diabetes mellitus complication status: with hyperglycemia Diabetes mellitus usp insulin use: without usp use Qualified Code(s): E11.65 - Type 2 diabetes mellitus with hyperglycemia Code(s): E11.9 - Type 2 diabetes mellitus without complications Status: Chronic Assessment and Plan: -hold metformin while in hospital -[facility] qACHS -SSI (15) Essential (primary) hypertension: Code(s): I10 - Essential (primary) hypertension Status: Chronic Assessment and Plan: - resumed home metoprolol, aldactone, clonidine with improvement (16) Pressure ulcer: Code(s): L89.90 - Pressure ulcer of unspecified site, unspecified stage Status: Acute Assessment and Plan: -Wound care consulted (17) Gallstones: Code(s): K80.20 - Calculus of gallbladder without cholecystitis without obstruction Status: Acute Assessment and Plan: -CT showed large peripherally calcified gallstone at the fundus of the otherwise normal gallbladder with no gallbladder wall thickening or pericholecystic inflammatory stranding to suggest acute cholecystitis. No mention of biliary ductal dilation of obstruction. Lipase and LFT's normal. - GI recommended no further work-up given patient is asymptomatic. Subjective Date/time seen: 04/01/25 10:26 Interval history: I saw exam patient today, patient still has pain bilateral lower extremities, swelling and tender by palpation Exam Narrative: General: NAD Eyes: EOMI ENT: neck supple Cardiovascular: regular rate and rhythm Respiratory: Clear to auscultation, respirations even and unlabored on RA Gastrointestinal: Soft, non tender Genitourinary: no suprapubic tenderness Musculoskeletal: Bilateral lower extremities edema Skin: Redness, tender and warm by palpation Neuro: Alert and oriented to self, place, knows the president, confused to month and year. Psych: Mood appropriate Objective Data Vital Signs Vital Signs: Vital Signs - 24 hr 03/31/25 12:00 03/31/25 13:51 03/31/25 16:00 Temperature 96.5 F L Pulse Rate 80 78 75 Respiratory Rate 14 Blood Pressure 107/60 Pulse Oximetry 98 03/31/25 20:00 03/31/25 20:29 03/31/25 21:06 Temperature 97 F L Pulse Rate 75 83 72 Respiratory Rate 20 Blood Pressure 125/66 Pulse Oximetry 100 04/01/25 00:00 04/01/25 04:00 04/01/25 04:38 Temperature 97.2 F L Pulse Rate 81 79 82 Respiratory Rate 16 Blood Pressure 120/66 Pulse Oximetry 100 04/01/25 08:33 Temperature Pulse Rate 74 Respiratory Rate Blood Pressure Pulse Oximetry Intake/Output Intake/Output: Intake & Output 03/29/25 03/30/25 03/31/25 04/01/25 23:59 23:59 23:59 23:59 Intake Total 1540.8 1410 660 265 Output Total 2425 850 500 900 Balance -884.2 560 160 -635 Meds/Results Medications: Active Medications Generic Name Dose Route Start Last Admin Trade Name Freq PRN Reason Stop Dose Admin Acetaminophen 650 mg 03/26/25 18:49 Acetaminophen 325 Mg Tablet PO Q4H PRN Mild Pain (1-3) or Fever Acetaminophen 650 mg 03/28/25 21:44 Acetaminophen 650 Mg Suppository RECTAL Q6H PRN Mild Pain (1-3) or Fever Hydrocodone Bitart/Acetaminophen 1 tab 03/26/25 18:49 03/30/25 22:00 Hydrocodone/Acetaminophen (*Crx) 5-325 Mg Tablet PO 1 tab Q4H PRN Administration Pain Atorvastatin Calcium 20 mg 03/27/25 09:30 04/01/25 08:33 Atorvastatin 20 Mg Tablet BY MOUTH 20 mg DAILY USAMA Administration Baclofen 10 mg 03/27/25 09:30 03/30/25 21:59 Baclofen 10 Mg Tablet PO 10 mg TID PRN Administration muscle spasm Bisacodyl 10 mg 03/29/25 21:00 Bisacodyl 10 Mg Suppository RECTAL HS PRN Constipation Buspirone HCl 10 mg 03/27/25 09:30 04/01/25 08:33 Buspirone Hcl 10 Mg Tablet PO 10 mg BID USAMA Administration Clonidine HCl 0.3 mg 03/27/25 09:30 04/01/25 08:33 Clonidine Hcl 0.1 Mg Tablet PO 0.3 mg TID USAMA Administration Dextrose 12.5 gm 03/26/25 18:49 Dextrose 50% 25 Gm/50 Ml Syringe IV PUSH PRN PRN Hypoglycemia Protocol Docusate Sodium 100 mg 03/27/25 09:00 04/01/25 08:33 Docusate Sodium 100 Mg Capsule PO 100 mg BID USAMA Administration Duloxetine HCl 60 mg 03/27/25 09:30 04/01/25 08:33 Duloxetine Hcl 60 Mg Capsule. PO 60 mg DAILY USAMA Administration Empagliflozin 25 mg 03/28/25 09:30 04/01/25 08:33 Empagliflozin 25 Mg Tablet BY MOUTH 25 mg DAILY USAMA Administration Enoxaparin Sodium 40 mg 03/27/25 09:00 04/01/25 08:33 Enoxaparin 40 Mg/0.4 Ml Syringe SUB-Q 40 mg DAILY USAMA Administration Gabapentin 300 mg 03/27/25 09:30 04/01/25 08:33 Gabapentin 300 Mg Capsule PO 300 mg DAILY USAMA Administration Glucagon 1 mg 03/26/25 18:49 Glucagon For Inj 1 Mg Vial IM PRN PRN Hypoglycemia Protocol Glucose 15 gm 03/26/25 18:49 Glucose Oral Gel 15 Gm Of Glucse In 37.5 Gm Tube PO PRN PRN Hypoglycemia Protocol Hydralazine HCl 10 mg 03/29/25 16:06 Hydralazine Hcl 20 Mg/Ml Vial IV PUSH Q8H PRN Blood Pressure - High Dextrose 1,000 mls @ 100 mls/hr 03/26/25 18:49 Dextrose 5% 1,000 Ml IVPB PRN PRN Hypoglycemia Protocol Cefepime HCl 2 gm/ Sodium 50 mls @ 100 mls/hr 03/29/25 12:00 03/31/25 23:58 Chloride IVPB 100 mls/hr Q12H USAMA Administration Vancomycin HCl 1,250 mg in 250 mls @ 166.667 mls/hr 04/01/25 19:00 Vancomycin 1,250 Mg/Ns 250 Ml IVPB Q24H [facility]AMA Insulin Aspart 2 - 5 units 03/27/25 08:00 04/01/25 08:32 Insulin Aspart (*Bkc) 100 Units/Ml SUB-Q Not Given TIDWM [facility] Protocol Insulin Aspart 1 - 2 units 03/26/25 21:00 03/31/25 21:07 Insulin Aspart (*Bkc) 100 Units/Ml SUB-Q Not Given HS [facility] Protocol Metoprolol Tartrate 50 mg 03/27/25 09:30 04/01/25 08:33 Metoprolol Tartrate 50 Mg Tab PO 50 mg Q12HR [facility]AMA Administration Metronidazole 500 mg 03/29/25 14:00 04/01/25 06:40 Metronidazole 500 Mg Tablet PO 500 mg Q8HR USAMA Administration Multi-Ingred Cream/Lotion/Oil/Oint 1 applic 03/27/25 09:00 04/01/25 08:34 Eucerin Cream 120 Gm Jar TOPICAL 1 applic DAILY USAMA Administration Ondansetron HCl 4 mg 03/29/25 13:47 Ondansetron Inj 4 Mg/2 Ml Vial IV PUSH Q6H PRN Nausea And Vomiting Pantoprazole Sodium 40 mg 03/27/25 09:30 04/01/25 08:33 Pantoprazole 40 Mg Tablet PO 40 mg DAILY USAMA Administration Polyethylene Glycol 17 gm 03/31/25 09:00 04/01/25 08:33 Polyethylene Glycol 3350 17 Gm Powd.Pack PO 17 gm QAM [facility]AMA Administration Spironolactone 25 mg 03/27/25 09:30 04/01/25 08:33 Spironolactone 25 Mg Tablet PO 25 mg DAILY [facility]AMA Administration Tamsulosin HCl 0.4 mg 04/01/25 21:00 Tamsulosin Hcl 0.4 Mg Capsule PO QHS [facility] Radiology Results: ITS Impressions Head CT 03/26/25 19:52 IMPRESSION: 1. 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 No acute intracranial process. 2. Age-related changes including mild diffuse volume loss and mild scattered white matter hypoattenuation consistent with chronic small vessel ischemic disease. Chest/Abdomen/Pelvis CT 03/26/25 20:06 IMPRESSION: 1. Findings suspicious for cystitis and right-sided ascending urinary tract infection with early polynephritis at the upper pole the right kidney. Correlate with urinalysis. 2. Mild bilateral hydronephrosis extending to the bladder which suggests either chronic outlet obstruction or neurogenic bladder. 3. Edematous wall thickening of the sigmoid and distal descending colon suspicious for colitis. 4. Stable appearance of mild UIP pattern chronic interstitial lung disease with no pulmonary edema or other acute cardiopulmonary disease. Chest X-Ray 03/29/25 10:01 IMPRESSION: No focal infiltrate or effusion. Modified Barium Swallow 03/29/25 11:35 IMPRESSION: Pharyngeal dysphagia with laryngeal penetration and aspiration with uncontrolled thin liquids. Please correlate with speech pathologist findings and specific feeding recommendations. Venous Doppler Study 03/29/25 16:08 IMPRESSION: 1: No lower extremity deep venous thrombosis. Labs Labs: Laboratory Results - last 24 hr 03/31/25 03/31/25 03/31/25 12:06 16:58 20:34 WBC RBC Hgb Hct MCV MCH MCHC RDW Plt Count MPV Immature Gran % (Auto) Neut % (Auto) Lymph % (Auto) [place] % (Auto) Eos % (Auto) Baso % (Auto) Lymph # (Auto) [place] # (Auto) Eos # (Auto) Baso # (Auto) Abs Immat Gran (auto) Absolute Neuts (auto) Absolute Nucleated RBC Nucleated RBC % Sodium Potassium Chloride Carbon Dioxide Anion Gap BUN Creatinine Estim Creat Clear Calc Estimated GFR Glucose POC Capillary Glucose 131 H 109 H 135 H Calcium Magnesium 04/01/25 04/01/25 04:46 07:57 WBC 13.0 H RBC 3.97 L Hgb 11.5 L Hct 36.1 L MCV 90.9 MCH 29.0 MCHC 31.9 L RDW 13.9 Plt Count 393 H MPV 9.5 Immature Gran % (Auto) 0.9 H Neut % (Auto) 64.8 Lymph % (Auto) 22.7 [place] % (Auto) 7.5 Eos % (Auto) 3.5 Baso % (Auto) 0.6 Lymph # (Auto) 2.96 [place] # (Auto) 1.0 H Eos # (Auto) 0.5 H Baso # (Auto) 0.1 Abs Immat Gran (auto) 0.12 H Absolute Neuts (auto) 8.4 H Absolute Nucleated RBC 0.000 Nucleated RBC % 0.0 Sodium 134 L Potassium 4.0 Chloride 105 Carbon Dioxide 24 Anion Gap 5 BUN 16 Creatinine 1.07 H Estim Creat Clear Calc 37 Estimated GFR 50 L Glucose 128 H POC Capillary Glucose 115 H Calcium 9.0 Magnesium 2.0
[2025-04-01] MEDS: HYDROcodone/acetaminophen (*CRX) 5-325 MG TABLET 1 TAB PO ×2 (12:33→21:18)
[2025-04-01] MEDS: CEFEPIME 2 GM in SODIUM CHLORIDE 0.9% IV 50 ML 100 ML IVPB (12:34)
[2025-04-01 16:44] LABS: Procalcitonin 0.1 ng/mL
[2025-04-01] MEDS: VANCOMYCIN 1,250 MG/NS 250 ML 1,250 MG/250 ML BAG 166.67 MG IVPB (18:53)
[2025-04-01] MEDS: TAMSULOSIN HCL 0.4 MG CAPSULE PO (21:16)
[2025-04-02] VITALS (11 sets, daily range): BP systolic 112–148; BP diastolic 67–73; PULSE 77–91; RESP 14–18; TEMP 36.3–36.8; O2SAT 99–100
[2025-04-02] MEDS: CEFEPIME 2 GM in SODIUM CHLORIDE 0.9% IV 50 ML 100 ML IVPB ×2 (00:09→12:12)
[2025-04-02 05:15] LABS: Hematocrit 37.0 % (37.0-47.0); Hemoglobin 11.3 g/dL (12.0-15.0); Immature Granulocyte Percent A 1.2 % (0-0.5); Lymphocytes Absolute Auto 3.25 K/mm3 (0.9-3.2); Mean Corpuscular HGB Conc 30.5 g/dl (32-36); Mean Corpuscular Hemoglobin 28.0 pg (26-34); Mean Corpuscular Volume 91.6 fl (80-100); Nucleated Red Blood Cells Absolute Auto 0.000 K/mm3 (0.0-0.012); Nucleated Red Blood Cells Perc 0.0 % (0.0-0.2); Platelet Count Result 375 k/mm3 (150-375); Red Blood Count 4.04 M/mm3 (4.2-5.4); White Blood Count 14.0 K/mm3 (4.5-10.0)
[2025-04-02 05:35] LABS: Estimated CRCL calculation 36 ml/min; Estimated Glomerular Filt Rate 48
--- NOTE | 2025-04-02 09:31 | P.PNIM_ITS ---
Progress Note: A&P Assessment and Plan (1) RENEA (acute kidney injury): Code(s): N17.9 - Acute kidney failure, unspecified Status: Resolved Plan (1) Sepsis: Code(s): A41.9 - Sepsis, unspecified organism Status: Acute Assessment and Plan: - criteria met on admission with leukocytosis, tachycardia. Meeting severe sepsis criteria 03/29/25 with leukocytosis, tachycardia and lactic acidosis. Now improved. Lactic acid and WBC trended down. Possible due to colitis and cellulitis blood cultures x2 NGTD -given increasing leukocytosis and lactic acidosis, antibiotics broadened 03/29 (cefepime and flagyl) wbc is trending down f/u procalcitonin o.1 UTI (urinary tract infection): Code(s): N39.0 - Urinary tract infection, site not specified Status: Acute Assessment and Plan: - UA with 3+ LE, 51-100 WBC, negative nitrates, yeast present - admit CT with evidence of cystitis and right-sided ascending UTI with early pyelonephritis - UA with mixed urogenital ricardo so doubt true UTI - on cefepime as above Cellulitis of bilateral lower extremities Continue cefepime, , add vancomycin Colitis: Code(s): K52.9 - Noninfective gastroenteritis and colitis, unspecified Status: Acute Assessment and Plan: 03/26/25 CT showed Edematous wall thickening of the sigmoid and distal descending colon suspicious for colitis. 4. Stable appearance of mild UIP pattern chronic interstitial lung disease with no pulmonary edema or other acute cardiopulmonary disease. Stool for c-diff/culture initially ordered, but patient not having diarrhea. - GI consulted, Recommended outpatient colonoscopy. patient improved with cefepime dc Flagyl. Impaired swallowing: Code(s): R13.10 - Dysphagia, unspecified Status: Acute Assessment and Plan: -03/27 failed bedside swallow eval. -s/p MBS 03/29/25 - speech recommended minced and moist, moderately thick liquids Advance diet to regular diet per speech evaluation Decreased appetite: Code(s): R63.0 - Anorexia Status: Acute Assessment and Plan: likely multifactorial in setting of acute illness, patient is also on semaglutide Hypokalemia: Code(s): E87.6 - Hypokalemia Status: Acute Assessment and Plan: - K+ 3.2, mag 1.5 - replacement ordered. Recheck in AM corrected Urinary retention: Code(s): R33.9 - Retention of urine, unspecified Status: Acute Assessment and Plan: - s/p starr - urology consulted due to hydronephrosis and concern for chronic bladder outlet obstruction on CT. Recommended treatment of UTI, discontinue oxybutynin. Continue starr while treating UTI. attempt voiding trial Follow-up with urology as outpatient. RENEA (acute kidney injury): Code(s): N17.9 - Acute kidney failure, unspecified Status: Resolved Assessment and Plan: -Admit Cr 1.3. Baseline creatinine 0.9. - likely prerenal due to decreased PO intake -s/p IV fluids with improvement - monitor BMP (9) Congestive heart failure: Code(s): I50.9 - Heart failure, unspecified Status: Chronic Assessment and Plan: -echo 12/2022 with EF 70%, indeterminate diastolic function -Pt appears to be euvolemic. No s/s of fluid overload. -Holding diuretics due to infection and dehydration, resume as able Constipation: Qualifiers: Constipation type: unspecified constipation type Qualified Code(s): K59.00 - Constipation, unspecified Code(s): K59.00 - Constipation, unspecified Status: Resolved Assessment and Plan: Patient to follow up GI in the office outpatient and we can discuss colonoscopy Generalized weakness: Code(s): R53.1 - Weakness Status: Acute Assessment and Plan: - PT/OT recommended SNF - care coordination assisting with placement Cognitive impairment: Code(s): R41.89 - Other symptoms and signs involving cognitive functions and awareness Status: Acute Assessment and Plan: - reports patient has had issues with her memory for over a year. No history of formal dementia eval. - delirium precautions - recommend formal dementia eval outpatient (13) Hypoglycemia: Code(s): E16.2 - Hypoglycemia, unspecified Status: Resolved Assessment and Plan: - s/p D5 infusion - resolved once diet restarted (14) DM2 (diabetes mellitus, type 2): Qualifiers: Diabetes mellitus complication status: with hyperglycemia Diabetes mellitus half-way insulin use: without medical terminologist use Qualified Code(s): E11.65 - Type 2 diabetes mellitus with hyperglycemia Code(s): E11.9 - Type 2 diabetes mellitus without complications Status: Chronic Assessment and Plan: -hold metformin while in hospital -Accu-Cheks qACHS -SSI (15) Essential (primary) hypertension: Code(s): I10 - Essential (primary) hypertension Status: Chronic Assessment and Plan: - resumed home metoprolol, aldactone, clonidine with improvement (16) Pressure ulcer: Code(s): L89.90 - Pressure ulcer of unspecified site, unspecified stage Status: Acute Assessment and Plan: -Wound care consulted (17) Gallstones: Code(s): K80.20 - Calculus of gallbladder without cholecystitis without obstruction Status: Acute Assessment and Plan: -CT showed large peripherally calcified gallstone at the fundus of the otherwise normal gallbladder with no gallbladder wall thickening or pericholecystic inflammatory stranding to suggest acute cholecystitis. No mention of biliary ductal dilation of obstruction. Lipase and LFT's normal. - GI recommended no further work-up given patient is asymptomatic. Subjective Date/time seen: 04/02/25 09:31 Interval history: I saw exam patient today, Patient feels better today, cellulitis of lower extremities or improving Will try void trial today Exam Narrative: GENERAL: Pleasant, in no acute distress. Well-nourished. - EYES: EOMI. Anicteric. - HENT: Moist mucous membranes. - LUNGS: Clear to auscultation bilateral ly, no wheezing, rhonchi, or rales. - CARDIOVASCULAR: Regular rate and rhyth m. No murmur. No JVD. - ABDOMEN: Soft, non-tender and non-dist ended. No palpable masses. - EXTREMITIES: No edema. Peripheral puls es 2+. Non-tender. - NEUROLOGIC: No focal neurological defi cits. CN II-XII grossly intact. - PSYCHIATRIC: Awake, Alert and oriented x 3. Appropriate mood and affect. - SKIN: Swelling, redness, tender bilat eral lower extremities, suggesting cellulitis - LYMPH: No cervical lymphadenopathy. Objective Data Vital Signs Vital Signs: Vital Signs - 24 hr 04/01/25 12:00 04/01/25 14:00 04/01/25 16:00 Temperature 97.9 F Pulse Rate 88 87 72 Respiratory Rate 14 Blood Pressure 100/62 Pulse Oximetry 100 04/01/25 20:00 04/01/25 21:16 04/01/25 21:17 Temperature 97.7 F Pulse Rate 82 86 86 Respiratory Rate 16 Blood Pressure 122/65 Pulse Oximetry 98 04/02/25 00:00 04/02/25 04:00 04/02/25 05:11 Temperature 97.7 F Pulse Rate 78 81 77 Respiratory Rate 16 Blood Pressure 148/73 H Pulse Oximetry 99 Intake/Output Intake/Output: Intake & Output 03/30/25 03/31/25 04/01/25 04/02/25 23:59 23:59 23:59 23:59 Intake Total 1410 660 975 150 Output Total 693 383 2501 600 Balance 560 160 -500 -450 Meds/Results Medications: Active Medications Generic Name Dose Route Start Last Admin Trade Name Freq PRN Reason Stop Dose Admin Acetaminophen 650 mg 03/26/25 18:49 Acetaminophen 325 Mg Tablet PO Q4H PRN Mild Pain (1-3) or Fever Acetaminophen 650 mg 03/28/25 21:44 Acetaminophen 650 Mg Suppository RECTAL Q6H PRN Mild Pain (1-3) or Fever Hydrocodone Bitart/Acetaminophen 1 tab 03/26/25 18:49 04/01/25 21:18 Hydrocodone/Acetaminophen (*Crx) 5-325 Mg Tablet PO 1 tab Q4H PRN Administration Pain Atorvastatin Calcium 20 mg 03/27/25 09:30 04/01/25 08:33 Atorvastatin 20 Mg Tablet BY MOUTH 20 mg DAILY USAMA Administration Baclofen 10 mg 03/27/25 09:30 03/30/25 21:59 Baclofen 10 Mg Tablet PO 10 mg TID PRN Administration muscle spasm Bisacodyl 10 mg 03/29/25 21:00 Bisacodyl 10 Mg Suppository RECTAL HS PRN Constipation Buspirone HCl 10 mg 03/27/25 09:30 04/01/25 16:54 Buspirone Hcl 10 Mg Tablet PO 10 mg BID USAMA Administration Clonidine HCl 0.3 mg 03/27/25 09:30 04/01/25 16:54 Clonidine Hcl 0.1 Mg Tablet PO 0.3 mg TID USAMA Administration Dextrose 12.5 gm 03/26/25 18:49 Dextrose 50% 25 Gm/50 Ml Syringe IV PUSH PRN PRN Hypoglycemia Protocol Docusate Sodium 100 mg 03/27/25 09:00 04/01/25 16:54 Docusate Sodium 100 Mg Capsule PO Not Given BID USAMA Duloxetine HCl 60 mg 03/27/25 09:30 04/01/25 08:33 Duloxetine Hcl 60 Mg Capsule.Dr PO 60 mg DAILY USAMA Administration Empagliflozin 25 mg 03/28/25 09:30 04/01/25 08:33 Empagliflozin 25 Mg Tablet BY MOUTH 25 mg DAILY USAMA Administration Enoxaparin Sodium 40 mg 03/27/25 09:00 04/01/25 08:33 Enoxaparin 40 Mg/0.4 Ml Syringe SUB-Q 40 mg DAILY USAMA Administration Gabapentin 300 mg 03/27/25 09:30 04/01/25 08:33 Gabapentin 300 Mg Capsule PO 300 mg DAILY USAMA Administration Glucagon 1 mg 03/26/25 18:49 Glucagon For Inj 1 Mg Vial IM PRN PRN Hypoglycemia Protocol Glucose 15 gm 03/26/25 18:49 Glucose Oral Gel 15 Gm Of Glucse In 37.5 Gm Tube PO PRN PRN Hypoglycemia Protocol Hydralazine HCl 10 mg 03/29/25 16:06 Hydralazine Hcl 20 Mg/Ml Vial IV PUSH Q8H PRN Blood Pressure - High Dextrose 1,000 mls @ 100 mls/hr 03/26/25 18:49 Dextrose 5% 1,000 Ml IVPB PRN PRN Hypoglycemia Protocol Cefepime HCl 2 gm/ Sodium 50 mls @ 100 mls/hr 03/29/25 12:00 04/02/25 00:40 Chloride IVPB Infused Q12H [facility]AMA Infusion Vancomycin HCl 1,250 mg in 250 mls @ 166.667 mls/hr 04/01/25 19:00 04/01/25 20:45 Vancomycin 1,250 Mg/Ns 250 Ml IVPB Infused Q24H [facility] Infusion Insulin Aspart 2 - 5 units 03/27/25 08:00 04/01/25 16:52 Insulin Aspart (*Bkc) 100 Units/Ml SUB-Q Not Given TIDWM [facility] Protocol Insulin Aspart 1 - 2 units 03/26/25 21:00 04/01/25 21:21 Insulin Aspart (*Bkc) 100 Units/Ml SUB-Q Not Given HS [facility] Protocol Metoprolol Tartrate 50 mg 03/27/25 09:30 04/01/25 21:16 Metoprolol Tartrate 50 Mg Tab PO 50 mg Q12HR [facility] Administration Multi-Ingred Cream/Lotion/Oil/Oint 1 applic 03/27/25 09:00 04/01/25 08:34 Eucerin Cream 120 Gm Jar TOPICAL 1 applic DAILY [facility] Administration Ondansetron HCl 4 mg 03/29/25 13:47 Ondansetron Inj 4 Mg/2 Ml Vial IV PUSH Q6H PRN Nausea And Vomiting Pantoprazole Sodium 40 mg 03/27/25 09:30 04/01/25 08:33 Pantoprazole 40 Mg Tablet PO 40 mg DAILY [facility] Administration Polyethylene Glycol 17 gm 03/31/25 09:00 04/01/25 08:33 Polyethylene Glycol 3350 17 Gm Powd.Pack PO 17 gm QAM [facility] Administration Spironolactone 25 mg 03/27/25 09:30 04/01/25 08:33 Spironolactone 25 Mg Tablet PO 25 mg DAILY [facility] Administration Tamsulosin HCl 0.4 mg 04/01/25 21:00 04/01/25 21:16 Tamsulosin Hcl 0.4 Mg Capsule PO 0.4 mg QHS [facility] Administration Radiology Results: ITS Impressions Head CT 03/26/25 19:52 IMPRESSION: 1. 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 No acute intracranial process. 2. Age-related changes including mild diffuse volume loss and mild scattered white matter hypoattenuation consistent with chronic small vessel ischemic dis ease. Chest/Abdomen/Pelvis CT 03/26/25 20:06 IMPRESSION: 1. Findings suspicious for cystitis and right-sided ascending urinary tract in fection with early polynephritis at the upper pole the right kidney. Correlate with urinalysis. 2. Mild bilateral hydronephrosis extending to the bladder which suggests either chronic outlet obstruction or neurogenic bladder. 3. Edematous wall thickening of the sigmoid and distal descending colon suspicious for colitis. 4. Stable appearance of mild UIP pattern chronic interstitial lung disease with no pulmonary edema or other acute cardiopulmonary disease. Chest X-Ray 03/29/25 10:01 IMPRESSION: No focal infiltrate or effusion. Venous Doppler Study 03/29/25 16:08 IMPRESSION: 1: No lower extremity deep venous thrombosis. Labs Labs: Laboratory Results - last 24 hr 04/01/25 04/01/25 04/01/25 11:33 15:40 16:37 WBC RBC Hgb Hct MCV MCH MCHC RDW Plt Count MPV Immature Gran % (Auto) Neut % (Auto) Lymph % (Auto) [place] % (Auto) Eos % (Auto) Baso % (Auto) Lymph # (Auto) [place] # (Auto) Eos # (Auto) Baso # (Auto) Abs Immat Gran (auto) Absolute Neuts (auto) Absolute Nucleated RBC Nucleated RBC % Creatinine Estim Creat Clear Calc Estimated GFR POC Capillary Glucose 167 H 142 H Procalcitonin 0.1 04/01/25 04/02/25 04/02/25 21:20 04:57 07:56 WBC 14.0 H RBC 4.04 L Hgb 11.3 L Hct 37.0 MCV 91.6 MCH 28.0 MCHC 30.5 L RDW 14.1 Plt Count 375 MPV 9.7 Immature Gran % (Auto) 1.2 H Neut % (Auto) 65.4 Lymph % (Auto) 23.2 [place] % (Auto) 6.6 Eos % (Auto) 2.9 Baso % (Auto) 0.7 Lymph # (Auto) 3.25 H [place] # (Auto) 0.9 H Eos # (Auto) 0.4 H Baso # (Auto) 0.1 Abs Immat Gran (auto) 0.17 H Absolute Neuts (auto) 9.2 H Absolute Nucleated RBC 0.000 Nucleated RBC % 0.0 Creatinine 1.11 H Estim Creat Clear Calc 36 Estimated GFR 48 L POC Capillary Glucose 145 H 122 H Procalcitonin
[2025-04-02] MEDS: ENOXAPARIN 40 MG/0.4 ML SYRINGE SUB-Q (10:02)
[2025-04-02] MEDS: DULoxetine HCL 60 MG CAPSULE.DR PO (10:03)
[2025-04-02] MEDS: PANTOPRAZOLE 40 MG TABLET PO (10:03)
[2025-04-02] MEDS: EMPAGLIFLOZIN 25 MG TABLET BY MOUTH (10:03)
[2025-04-02] MEDS: ATORVASTATIN 20 MG TABLET BY MOUTH (10:03)
[2025-04-02] MEDS: SPIRONOLACTONE 25 MG TABLET PO (10:03)
[2025-04-02] MEDS: DOCUSATE SODIUM 100 MG CAPSULE PO ×2 (10:03→17:09)
[2025-04-02] MEDS: EUCERIN CREAM 120 GM JAR 1 APPLIC TOPICAL (10:04)
[2025-04-02] MEDS: METOPROLOL TARTRATE 50 MG TAB PO ×2 (10:04→20:58)
[2025-04-02] MEDS: GABAPENTIN 300 MG CAPSULE PO (10:04)
[2025-04-02] MEDS: BACLOFEN 10 MG TABLET PO (10:10)
[2025-04-02] MEDS: HYDROcodone/acetaminophen (*CRX) 5-325 MG TABLET 1 TAB PO ×2 (10:10→15:11)
--- NOTE | 2025-04-02 10:40 | REHSTMBS ---
Assessment and note entered by Amanda Ennis, [employer] Modified Barium Swallow Evaluation Feeding Type Recommended Oral Food Consistency Regular, Level 7 Liquid Consistency Thin (0) Treatment Recommendations Effortful Swallow,Laryngeal Elevation Exercise, Tongue Base Exercise ST Clinical Summary The patient is a 75 year old female who lives with her spouse at prior level of function. Admitted with a RENEA diagnosis. Recent MBS was completed with recommendations to include a minced and moist diet and mildly thick liquids. Speech services were recommended to address dysphagia exercises and a cognitive evaluation due to concerns for changes in cognition. The patient was positioned in a lateral view and provided the following consistencies: thin liquid barium 5cc/tsp, thin liquid barium via a cup, pudding mixed with barium paste, and cracker coated with barium paste. Oral Stage: Timely oral preparation and transit for all consistencies. Pharyngeal Stage: When presented 5cc/tsp amounts thin liquid barium trace aspiration was viewed following the initial swallow secondary to mild residual remaining in the pyriform sinus and vallecula. Residual in the vallecula was secondary to reduced lingual pressure and residual in the pyriform sinus was secondary to cricopharyngeal dysfunction and reduced pharyngeal contraction. The patient was able to eliminate any further viewed aspiration or penetration with maintained use of a chin tuck posture with small drinks of thin liquid and by performing a repeat swallow to reduced residual remaining in the vallecula and pyriform sinus. Additional trials of thin liquid via cup with use of a chin tuck posture and repeat swallow were completed with no laryngeal penetration or aspiration noted and reduced the residual in both the valleculae and pyriform sinus . No aspiration/penetration were viewed for pudding and cracker consistencies or residual viewed to remain n the vallecula or pyriform sinus for these consistencies.
--- NOTE | 2025-04-02 10:42 | PCSTNOTE ---
Please refer to the Modified Barium Swallow Evaluation in the EMR. The patient is a 75 year old female who lives with her spouse at prior level of function. Admitted with a RENEA diagnosis. Recent MBS was completed 03/29/25 with recommendations to include a minced and moist diet and mildly thick liquids. Speech services were recommended to address dysphagia exercises and a cognitive evaluation due to concerns for changes in cognition. The patient was positioned in a lateral view and provided the following consistencies: thin liquid barium 5cc/tsp, thin liquid barium via a cup, pudding mixed with barium paste, and cracker coated with barium paste. Oral Stage: Timely oral preparation and transit for all consistencies. Pharyngeal Stage: When presented 5cc/tsp amounts thin liquid barium trace aspiration was viewed following the initial swallow secondary to mild residual remaining in the pyriform sinus and vallecula. Residual in the vallecula was secondary to reduced lingual pressure and residual in the pyriform sinus was secondary to cricopharyngeal dysfunction and reduced pharyngeal contraction. The patient was able to eliminate any further viewed aspiration or penetration with maintained use of a chin tuck posture with small drinks of thin liquid and by performing a repeat swallow to reduced residual remaining in the vallecula and pyriform sinus. Additional trials of thin liquid via cup with use of a chin tuck posture and repeat swallow were completed with no laryngeal penetration or aspiration noted and reduced the residual in both the valleculae and pyriform sinus. No aspiration/penetration were viewed for pudding and cracker consistencies or residual viewed to remain n the vallecula or pyriform sinus for these consistencies. Recommend 1. Regular Diet/ Level 7 2. Thin liquid Level 0 3. Chin tuck with all swallows 4. Small bites and drinks 5. Upright with meals
--- NOTE | 2025-04-02 11:46 | PCNFU ---
Nutrition Follow-Up Complete: Moderate protein calorie malnutrition related to loss of appetite as evidenced by weight loss 11%/4 months; intakes <75% needs >1 month; moderate muscle wasting and fat loss. goal: Intakes >75% Patient is progressing towards goal. We will continue current goal. Pt current nutrition is Regular diet with Glucerna shake BID and Nutritional Ice Cream TID. Last recorded weight is 63 kg, stable Bowel Motility: +BM reported 04/01 Labs Reviewed: Glu 128, Cr 1.11, Alb 3.2, Na 134 Meds Noted: Protonix, Jardiance, Miralax Skin: no pressure ulcers reported. Additional Notes: Patient had repeat MBS today. Recommending: regular diet and regular consistencies. Diet order has been advanced. Diet supplements remain of Glucerna shakes BID (240 kcal and 10 gm protein) and Nutritional Ice Cream TID (300 kcal and 9 gm protein). Agree with diet orders. Monitoring intakes, weights, labs, supplement tolerance, plan of care Follow up in 5 days
[2025-04-02] MEDS: VANCOMYCIN 1,500 MG/NS 500 ML 1,500 MG/500 ML BAG 250 MG IVPB (20:08)
[2025-04-02] MEDS: TAMSULOSIN HCL 0.4 MG CAPSULE PO (20:58)
[2025-04-03] VITALS (8 sets, daily range): BP systolic 104–130; BP diastolic 65–72; PULSE 83–99; RESP 16–18; TEMP 36.2–36.7; O2SAT 98–100
[2025-04-03] MEDS: CEFEPIME 2 GM in SODIUM CHLORIDE 0.9% IV 50 ML 100 ML IVPB ×2 (00:06→13:29)
--- NOTE | 2025-04-03 02:11 | PC.NURSE ---
0115 PT UNABLE TO URINATE AFTER GARCIA REMOVED, BLADDER SCAN OF [id number] CALL OUT TO DR MOORE
[2025-04-03 05:33] LABS: Hematocrit 34.7 % (37.0-47.0); Hemoglobin 11.1 g/dL (12.0-15.0); Immature Granulocyte Percent A 1.0 % (0-0.5); Lymphocytes Absolute Auto 4.32 K/mm3 (0.9-3.2); Mean Corpuscular HGB Conc 32.0 g/dl (32-36); Mean Corpuscular Hemoglobin 28.9 pg (26-34); Mean Corpuscular Volume 90.4 fl (80-100); Nucleated Red Blood Cells Absolute Auto 0.000 K/mm3 (0.0-0.012); Nucleated Red Blood Cells Perc 0.0 % (0.0-0.2); Platelet Count Result 374 k/mm3 (150-375); Red Blood Count 3.84 M/mm3 (4.2-5.4); White Blood Count 14.8 K/mm3 (4.5-10.0)
[2025-04-03 05:44] LABS: Estimated CRCL calculation 45 ml/min; Estimated Glomerular Filt Rate > 60
[2025-04-03] MEDS: EMPAGLIFLOZIN 25 MG TABLET BY MOUTH (09:12)
[2025-04-03] MEDS: DULoxetine HCL 60 MG CAPSULE.DR PO (09:12)
[2025-04-03] MEDS: GABAPENTIN 300 MG CAPSULE PO (09:12)
[2025-04-03] MEDS: ATORVASTATIN 20 MG TABLET BY MOUTH (09:12)
[2025-04-03] MEDS: DOCUSATE SODIUM 100 MG CAPSULE PO ×2 (09:12→17:04)
[2025-04-03] MEDS: METOPROLOL TARTRATE 50 MG TAB PO (09:12)
[2025-04-03] MEDS: PANTOPRAZOLE 40 MG TABLET PO (09:12)
[2025-04-03] MEDS: SPIRONOLACTONE 25 MG TABLET PO (09:12)
[2025-04-03] MEDS: ENOXAPARIN 40 MG/0.4 ML SYRINGE SUB-Q (09:13)
[2025-04-03] MEDS: EUCERIN CREAM 120 GM JAR 1 APPLIC TOPICAL (09:13)
[2025-04-03] MEDS: HYDROcodone/acetaminophen (*CRX) 5-325 MG TABLET 1 TAB PO (09:24)
--- NOTE | 2025-04-03 09:50 | P.PNIM_ITS ---
Progress Note: A&P Assessment and Plan (1) RENEA (acute kidney injury): Code(s): N17.9 - Acute kidney failure, unspecified Status: Resolved Plan (1) Sepsis: Code(s): A41.9 - Sepsis, unspecified organism Status: Acute Assessment and Plan: - criteria met on admission with leukocytosis, tachycardia. Meeting severe sepsis criteria 03/29/25 with leukocytosis, tachycardia and lactic acidosis. Now improved. Lactic acid and WBC trended down. Possible due to colitis and cellulitis blood cultures x2 NGTD -given increasing leukocytosis and lactic acidosis, antibiotics broadened 03/29 (cefepime and flagyl) wbc is trending down f/u procalcitonin o.1 change to Levaquin p.o. 750 mg daily for 4 more days UTI (urinary tract infection): Code(s): N39.0 - Urinary tract infection, site not specified Status: Acute Assessment and Plan: - UA with 3+ LE, 51-100 WBC, negative nitrates, yeast present - admit CT with evidence of cystitis and right-sided ascending UTI with early pyelonephritis - UA with mixed urogenital ricardo so doubt true UTI - on cefepime as above Cellulitis of bilateral lower extremities Continue cefepime, , add vancomycin Improved significantly Changed to oral Levaquin p.o. Colitis: Code(s): K52.9 - Noninfective gastroenteritis and colitis, unspecified Status: Acute Assessment and Plan: 03/26/25 CT showed Edematous wall thickening of the sigmoid and distal descending colon suspicious for colitis. 4. Stable appearance of mild UIP pattern chronic interstitial lung disease with no pulmonary edema or other acute cardiopulmonary disease. Stool for c-diff/culture initially ordered, but patient not having diarrhea. - GI consulted, Recommended outpatient colonoscopy. Impaired swallowing: Code(s): R13.10 - Dysphagia, unspecified Status: Acute Assessment and Plan: -03/27 failed bedside swallow eval. -s/p MBS 03/29/25 - speech recommended minced and moist, moderately thick liquids Advance diet to regular diet per speech evaluation Decreased appetite: Code(s): R63.0 - Anorexia Status: Acute Assessment and Plan: likely multifactorial in setting of acute illness, patient is also on semaglutide Hypokalemia: Code(s): E87.6 - Hypokalemia Status: Acute Assessment and Plan: - K+ 3.2, mag 1.5 - replacement ordered. Recheck in AM corrected Urinary retention: Code(s): R33.9 - Retention of urine, unspecified Status: Acute Assessment and Plan: - s/p starr - urology consulted due to hydronephrosis and concern for chronic bladder outlet obstruction on CT. Recommended treatment of UTI, discontinue oxybutynin. Continue starr while treating UTI. attempt voiding trial, but patient has a urinary retention Follow-up with urology as outpatient. RENEA (acute kidney injury): Code(s): N17.9 - Acute kidney failure, unspecified Status: Resolved Assessment and Plan: -Admit Cr 1.3. Baseline creatinine 0.9. - likely prerenal due to decreased PO intake -s/p IV fluids with improvement Creatinine 0.8 7 today, resolved (9) Congestive heart failure: Code(s): I50.9 - Heart failure, unspecified Status: Chronic Assessment and Plan: -echo 12/2022 with EF 70%, indeterminate diastolic function -Pt appears to be euvolemic. No s/s of fluid overload. Constipation: Qualifiers: Constipation type: unspecified constipation type Qualified Code(s): K59.00 - Constipation, unspecified Code(s): K59.00 - Constipation, unspecified Status: Resolved Assessment and Plan: Patient to follow up GI in the office outpatient and we can discuss colonoscopy Generalized weakness: Code(s): R53.1 - Weakness Status: Acute Assessment and Plan: - PT/OT recommended SNF - care coordination assisting with placement Cognitive impairment: Code(s): R41.89 - Other symptoms and signs involving cognitive functions and awareness Status: Acute Assessment and Plan: - reports patient has had issues with her memory for over a year. No history of formal dementia eval. 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 Qualified Code(s): E11.65 - Type 2 diabetes mellitus with hyperglycemia Code(s): E11.9 - Type 2 diabetes mellitus without complications Status: Chronic Assessment and Plan: -hold metformin while in hospital -[facility] qACHS -SSI (15) Essential (primary) hypertension: Code(s): I10 - Essential (primary) hypertension Status: Chronic Assessment and Plan: - resumed home metoprolol, aldactone, clonidine with improvement (16) Pressure ulcer: Code(s): L89.90 - Pressure ulcer of unspecified site, unspecified stage Status: Acute Assessment and Plan: -Wound care consulted (17) Gallstones: Code(s): K80.20 - Calculus of gallbladder without cholecystitis without obstruction Status: Acute Assessment and Plan: -CT showed large peripherally calcified gallstone at the fundus of the otherwise normal gallbladder with no gallbladder wall thickening or pericholecystic inflammatory stranding to suggest acute cholecystitis. No mention of biliary ductal dilation of obstruction. Lipase and LFT's normal. GI recommended no further work-up given patient is asymptomatic. Patient requests to be discharged home. Will discharge patient home with home health Subjective Date/time seen: 04/03/25 09:50 Interval history: I saw exam patient today, Patient feels better today, cellulitis of lower extremities or improving Will try void trial today Exam Narrative: GENERAL: Pleasant, in no acute distress. Well-nourished. - EYES: EOMI. Anicteric. - HENT: Moist mucous membranes. - LUNGS: Clear to auscultation bilateral ly, no wheezing, rhonchi, or rales. - CARDIOVASCULAR: Regular rate and rhyth m. No murmur. No JVD. - ABDOMEN: Soft, non-tender and non-dist ended. No palpable masses. - EXTREMITIES: No edema. Peripheral puls es 2+. Non-tender. - NEUROLOGIC: No focal neurological defi cits. CN II-XII grossly intact. - PSYCHIATRIC: Awake, Alert and oriented x 3. Appropriate mood and affect. - SKIN: Bilateral lower extremity cellu litis resolved - LYMPH: No cervical lymphadenopathy. Objective Data Vital Signs Vital Signs: Vital Signs - 24 hr 04/02/25 10:04 04/02/25 12:00 04/02/25 14:00 Temperature 97.3 F L Pulse Rate 78 91 86 Respiratory Rate 18 Blood Pressure 112/67 Pulse Oximetry 100 04/02/25 16:00 04/02/25 20:00 04/02/25 20:58 Temperature Pulse Rate 89 89 78 Respiratory Rate Blood Pressure Pulse Oximetry 04/02/25 21:34 04/03/25 00:00 04/03/25 04:00 Temperature 98.3 F Pulse Rate 91 85 85 Respiratory Rate 14 Blood Pressure 112/70 Pulse Oximetry 100 04/03/25 06:49 04/03/25 09:12 Temperature 98.1 F Pulse Rate 99 99 Respiratory Rate 16 Blood Pressure 130/72 Pulse Oximetry 100 Intake/Output Intake/Output: Intake & Output 03/31/25 04/01/25 04/02/25 04/03/25 23:59 23:59 23:59 23:59 Intake Total 240 358 9193 290 Output Total 500 2870 097 5478 Balance 160 -500 820 -1460 Meds/Results Medications: Active Medications Generic Name Dose Route Start Last Admin Trade Name Freq PRN Reason Stop Dose Admin Acetaminophen 650 mg 03/26/25 18:49 Acetaminophen 325 Mg Tablet PO Q4H PRN Mild Pain (1-3) or Fever Acetaminophen 650 mg 03/28/25 21:44 Acetaminophen 650 Mg Suppository RECTAL Q6H PRN Mild Pain (1-3) or Fever Hydrocodone Bitart/Acetaminophen 1 tab 03/26/25 18:49 04/03/25 09:24 Hydrocodone/Acetaminophen (*Crx) 5-325 Mg Tablet PO 1 tab Q4H PRN Administration Pain Atorvastatin Calcium 20 mg 03/27/25 09:30 04/03/25 09:12 Atorvastatin 20 Mg Tablet BY MOUTH 20 mg DAILY USAMA Administration Baclofen 10 mg 03/27/25 09:30 04/02/25 10:10 Baclofen 10 Mg Tablet PO 10 mg TID PRN Administration muscle spasm Bisacodyl 10 mg 03/29/25 21:00 Bisacodyl 10 Mg Suppository RECTAL HS PRN Constipation Buspirone HCl 10 mg 03/27/25 09:30 04/03/25 09:12 Buspirone Hcl 10 Mg Tablet PO 10 mg BID USAMA Administration Clonidine HCl 0.3 mg 03/27/25 09:30 04/03/25 09:12 Clonidine Hcl 0.1 Mg Tablet PO 0.3 mg TID USAMA Administration Dextrose 12.5 gm 03/26/25 18:49 Dextrose 50% 25 Gm/50 Ml Syringe IV PUSH PRN PRN Hypoglycemia Protocol Docusate Sodium 100 mg 03/27/25 09:00 04/03/25 09:12 Docusate Sodium 100 Mg Capsule PO 100 mg BID USAMA Administration Duloxetine HCl 60 mg 03/27/25 09:30 04/03/25 09:12 Duloxetine Hcl 60 Mg Capsule.Dr PO 60 mg DAILY USAMA Administration Empagliflozin 25 mg 03/28/25 09:30 04/03/25 09:12 Empagliflozin 25 Mg Tablet BY MOUTH 25 mg DAILY USAMA Administration Enoxaparin Sodium 40 mg 03/27/25 09:00 04/03/25 09:13 Enoxaparin 40 Mg/0.4 Ml Syringe SUB-Q 40 mg DAILY USAMA Administration Gabapentin 300 mg 03/27/25 09:30 04/03/25 09:12 Gabapentin 300 Mg Capsule PO 300 mg DAILY USAMA Administration Glucagon 1 mg 03/26/25 18:49 Glucagon For Inj 1 Mg Vial IM PRN PRN Hypoglycemia Protocol Glucose 15 gm 03/26/25 18:49 Glucose Oral Gel 15 Gm Of Glucse In 37.5 Gm Tube PO PRN PRN Hypoglycemia Protocol Hydralazine HCl 10 mg 03/29/25 16:06 Hydralazine Hcl 20 Mg/Ml Vial IV PUSH Q8H PRN Blood Pressure - High Dextrose 1,000 mls @ 100 mls/hr 03/26/25 18:49 Dextrose 5% 1,000 Ml IVPB PRN PRN Hypoglycemia Protocol Cefepime HCl 2 gm/ Sodium 50 mls @ 100 mls/hr 03/29/25 12:00 04/03/25 00:35 Chloride IVPB Infused Q12H USAMA Infusion Vancomycin HCl 1,500 mg in 500 mls @ 250 mls/hr 04/02/25 20:00 04/02/25 22:51 Vancomycin 1,500 Mg/Ns 500 Ml IVPB Infused Q24H USAMA Infusion Insulin Aspart 2 - 5 units 03/27/25 08:00 04/03/25 09:09 Insulin Aspart (*Bkc) 100 Units/Ml SUB-Q Not Given [facility] Protocol Insulin Aspart 1 - 2 units 03/26/25 21:00 04/02/25 22:50 Insulin Aspart (*Bkc) 100 Units/Ml SUB-Q Not Given HS [facility] Protocol Metoprolol Tartrate 50 mg 03/27/25 09:30 04/03/25 09:12 Metoprolol Tartrate 50 Mg Tab PO 50 mg Q12HR USAMA Administration Multi-Ingred Cream/Lotion/Oil/Oint 1 applic 03/27/25 09:00 04/03/25 09:13 Eucerin Cream 120 Gm Jar TOPICAL 1 applic DAILY USAMA Administration Ondansetron HCl 4 mg 03/29/25 13:47 Ondansetron Inj 4 Mg/2 Ml Vial IV PUSH Q6H PRN Nausea And Vomiting Pantoprazole Sodium 40 mg 03/27/25 09:30 04/03/25 09:12 Pantoprazole 40 Mg Tablet PO 40 mg DAILY USAMA Administration Polyethylene Glycol 17 gm 03/31/25 09:00 04/03/25 09:13 Polyethylene Glycol 3350 17 Gm Powd.Pack PO 17 gm QAM [facility]AMA Administration Spironolactone 25 mg 03/27/25 09:30 04/03/25 09:12 Spironolactone 25 Mg Tablet PO 25 mg DAILY USAMA Administration Tamsulosin HCl 0.4 mg 04/01/25 21:00 04/02/25 20:58 Tamsulosin Hcl 0.4 Mg Capsule PO 0.4 mg QHS USAMA Administration Radiology Results: ITS Impressions Head CT 03/26/25 19:52 IMPRESSION: 1. 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 No acute intracranial process. 2. Age-related changes including mild diffuse volume loss and mild scattered white matter hypoattenuation consistent with chronic small vessel ischemic disease. Chest/Abdomen/Pelvis CT 03/26/25 20:06 IMPRESSION: 1. Findings suspicious for cystitis and right-sided ascending urinary tract infection with early polynephritis at the upper pole the right kidney. Correlate with urinalysis. 2. Mild bilateral hydronephrosis extending to the bladder which suggests either chronic outlet obstruction or neurogenic bladder. 3. Edematous wall thickening of the sigmoid and distal descending colon suspicious for colitis. 4. Stable appearance of mild UIP pattern chronic interstitial lung disease with no pulmonary edema or other acute cardiopulmonary disease. Chest X-Ray 03/29/25 10:01 IMPRESSION: No focal infiltrate or effusion. Venous Doppler Study 03/29/25 16:08 IMPRESSION: 1: No lower extremity deep venous thrombosis. Modified Barium Swallow 04/02/25 13:55 IMPRESSION: Laryngeal penetration with trace aspiration after the swallow. Please correlate with speech pathologist findings and specific feeding recommendations. Labs Labs: Laboratory Results - last 24 hr 04/02/25 04/02/25 04/02/25 12:11 16:48 18:14 WBC RBC Hgb Hct MCV MCH MCHC RDW Plt Count MPV Immature Gran % (Auto) Neut % (Auto) Lymph % (Auto) Dickinson % (Auto) Eos % (Auto) Baso % (Auto) Lymph # (Auto) Dickinson # (Auto) Eos # (Auto) Baso # (Auto) Abs Immat Gran (auto) Absolute Neuts (auto) Absolute Nucleated RBC Nucleated RBC % Creatinine Estim Creat Clear Calc Estimated GFR POC Capillary Glucose 155 H 156 H Vancomycin Trough 13.6 04/02/25 04/03/25 04/03/25 21:38 05:25 08:05 WBC 14.8 H RBC 3.84 L Hgb 11.1 L Hct 34.7 L MCV 90.4 MCH 28.9 MCHC 32.0 RDW 13.9 Plt Count 374 MPV 9.8 Immature Gran % (Auto) 1.0 H Neut % (Auto) 58.2 Lymph % (Auto) 29.2 Dickinson % (Auto) 7.9 Eos % (Auto) 3.0 Baso % (Auto) 0.7 Lymph # (Auto) 4.32 H Dickinson # (Auto) 1.2 H Eos # (Auto) 0.4 H Baso # (Auto) 0.1 Abs Immat Gran (auto) 0.15 H Absolute Neuts (auto) 8.6 H Absolute Nucleated RBC 0.000 Nucleated RBC % 0.0 Creatinine 0.87 Estim Creat Clear Calc 45 Estimated GFR > 60 POC Capillary Glucose 172 H 143 H Vancomycin Trough
--- NOTE | 2025-04-03 15:17 | PM.DS ---
DS: Admitting Diagnosis Discharge Date 04/03/25 Admitting Diagnosis (1) RENEA (acute kidney injury): Code(s): N17.9 - Acute kidney failure, unspecified Status: Resolved DS: Discharge Diagnosis Discharge Diagnosis (1) RENEA (acute kidney injury): Code(s): N17.9 - Acute kidney failure, unspecified Status: Resolved DS: Summary Hospital Course Hospital Course: H&P, 75-year-old female past medical history of diabetes type 2, NSTEMI, hypertension, for myalgia and RA presents the hospital with increased weakness. Patient states that she is here for the same old reasons that always happen. History eyes very limited patient is a poor historian. She states she does not other medications as she is taking. She states that her takes care of her. Like patient has extremely limited mobility and is wheelchair to bedbound. Patient denies nausea or vomiting. Fever chills. Lab work in the ED shows leukocytosis at 19.0, platelets of 515, sodium 135, carbon dioxide 21, anion gap 14, BUN of 37, creatinine of 1.30 with baseline being around 1.9, GFR 40, lactic acid of 1.3, CK 28, BUN 2000 afternoon 10, UA shows 3+ leukocyte esterase negative for nitrates, 51-100 wbc's yeast present U tox positive for cannabinoids and opioids ethanol level negative. EKG shows sinus rhythm. The following med issues have been addressed during hospitalization (1) Sepsis: Code(s): A41.9 - Sepsis, unspecified organism Status: Acute Assessment and Plan: - criteria met on admission with leukocytosis, tachycardia. Meeting severe sepsis criteria 03/29/25 with leukocytosis, tachycardia and lactic acidosis. Now improved. Lactic acid and WBC trended down. Possible due to colitis and cellulitis blood cultures x2 NGTD -given increasing leukocytosis and lactic acidosis, antibiotics broadened 03/29 (cefepime and flagyl) wbc is trending down f/u procalcitonin o.1 change to Levaquin p.o. 750 mg daily for 4 more days UTI (urinary tract infection): Code(s): N39.0 - Urinary tract infection, site not specified Status: Acute Assessment and Plan: - UA with 3+ LE, 51-100 WBC, negative nitrates, yeast present - admit CT with evidence of cystitis and right-sided ascending UTI with early pyelonephritis - UA with mixed urogenital ricardo so doubt true UTI - on cefepime as above Cellulitis of bilateral lower extremities Continue cefepime, , add vancomycin Improved significantly Changed to oral Levaquin p.o. Colitis: Code(s): K52.9 - Noninfective gastroenteritis and colitis, unspecified Status: Acute Assessment and Plan: 03/26/25 CT showed Edematous wall thickening of the sigmoid and distal descending colon suspicious for colitis. 4. Stable appearance of mild UIP pattern chronic interstitial lung disease with no pulmonary edema or other acute cardiopulmonary disease. Stool for c-diff/culture initially ordered, but patient not having diarrhea. - GI consulted, Recommended outpatient colonoscopy. Impaired swallowing: Code(s): R13.10 - Dysphagia, unspecified Status: Acute Assessment and Plan: -03/27 failed bedside swallow eval. -s/p MBS 03/29/25 - speech recommended minced and moist, moderately thick liquids Advance diet to regular diet per speech evaluation Decreased appetite: Code(s): R63.0 - Anorexia Status: Acute Assessment and Plan: likely multifactorial in setting of acute illness, patient is also on semaglutide Hypokalemia: Code(s): E87.6 - Hypokalemia Status: Acute Assessment and Plan: - K+ 3.2, mag 1.5 - replacement ordered. Recheck in AM corrected Urinary retention: Code(s): R33.9 - Retention of urine, unspecified Status: Acute Assessment and Plan: - s/p starr - urology consulted due to hydronephrosis and concern for chronic bladder outlet obstruction on CT. Recommended treatment of UTI, discontinue oxybutynin. Continue starr while treating UTI. attempt voiding trial, but patient has a urinary retention Follow-up with urology as outpatient. RENEA (acute kidney injury): Code(s): N17.9 - Acute kidney failure, unspecified Status: Resolved Assessment and Plan: -Admit Cr 1.3. Baseline creatinine 0.9. - likely prerenal due to decreased PO intake -s/p IV fluids with improvement Creatinine 0.8 7 today, resolved Congestive heart failure: Code(s): I50.9 - Heart failure, unspecified Status: Chronic Assessment and Plan: -echo 12/2022 with EF 70%, indeterminate diastolic function -Pt appears to be euvolemic. No s/s of fluid overload. Constipation: Qualifiers: Constipation type: unspecified constipation type Qualified Code(s): K59.00 - Constipation, unspecified Code(s): K59.00 - Constipation, unspecified Status: Resolved Assessment and Plan: Patient to follow up GI in the office outpatient and we can discuss colonoscopy Generalized weakness: Code(s): R53.1 - Weakness Status: Acute Assessment and Plan: - PT/OT recommended SNF - care coordination assisting with placement Cognitive impairment: Code(s): R41.89 - Other symptoms and signs involving cognitive functions and awareness Status: Acute Assessment and Plan: - reports patient has had issues with her memory for over a year. No history of formal dementia eval. 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: without nursing home use Qualified Code(s): E11.65 - Type 2 diabetes mellitus with hyperglycemia Code(s): E11.9 - Type 2 diabetes mellitus without complications Status: Chronic Assessment and Plan: -hold metformin while in hospital -Accu-Cheks qACHS -SSI Resume home medication on discharge Essential (primary) hypertension: Code(s): I10 - Essential (primary) hypertension Status: Chronic Assessment and Plan: - resumed home metoprolol, aldactone, clonidine with improvement (16) Pressure ulcer: Code(s): L89.90 - Pressure ulcer of unspecified site, unspecified stage Status: Acute Assessment and Plan: -Wound care consulted (17) Gallstones: Code(s): K80.20 - Calculus of gallbladder without cholecystitis without obstruction Status: Acute Assessment and Plan: -CT showed large peripherally calcified gallstone at the fundus of the otherwise normal gallbladder with no gallbladder wall thickening or pericholecystic inflammatory stranding to suggest acute cholecystitis. No mention of biliary ductal dilation of obstruction. Lipase and LFT's normal. GI recommended no further work-up given patient is asymptomatic. Patient requests to be discharged home. Will discharge patient home with home health Time Spent with Patient Time attestation: Total time spent providing and/or coordinating discharge services: Exam Narrative: GENERAL: Pleasant, in no acute distress. Well-nourished. - EYES: EOMI. Anicteric. - HENT: Moist mucous membranes. - LUNGS: Clear to auscultation bilaterally, no wheezing, rhonchi, or rales. - CARDIOVASCULAR: Regular rate and rhythm. No murmur. No JVD. - ABDOMEN: Soft, non-tender and non-distended. No palpable masses. - EXTREMITIES: No edema. Peripheral pulses 2+. Non-tender. - NEUROLOGIC: No focal neurological deficits. CN II-XII grossly intact. - PSYCHIATRIC: Awake, Alert and oriented x 3. Appropriate mood and affect. - SKIN: Bilateral lower extremity cellulitis resolved - LYMPH: No cervical lymphadenopathy. DS: Data Data Completed and Pending Labs on day of discharge: Labs from last 24 hours 04/03/25 04/03/25 04/03/25 11:56 08:05 05:25 WBC 14.8 H RBC 3.84 L Hgb 11.1 L Hct 34.7 L MCV 90.4 MCH 28.9 MCHC 32.0 RDW 13.9 Plt Count 374 MPV 9.8 Immature Gran % (Auto) 1.0 H Neut % (Auto) 58.2 Lymph % (Auto) 29.2 Ball[place] % (Auto) 7.9 Eos % (Auto) 3.0 Baso % (Auto) 0.7 Lymph # (Auto) 4.32 H Ballard # (Auto) 1.2 H Eos # (Auto) 0.4 H Baso # (Auto) 0.1 Abs Immat Gran (auto) 0.15 H Absolute Neuts (auto) 8.6 H Absolute Nucleated RBC 0.000 Nucleated RBC % 0.0 Creatinine 0.87 Estim Creat Clear Calc 45 Estimated GFR > 60 POC Capillary Glucose 138 H 143 H Vancomycin Trough 04/02/25 04/02/25 04/02/25 21:38 18:14 16:48 WBC RBC Hgb Hct MCV MCH MCHC RDW Plt Count MPV Immature Gran % (Auto) Neut % (Auto) Lymph % (Auto) Ballard % (Auto) Eos % (Auto) Baso % (Auto) Lymph # (Auto) Ballard # (Auto) Eos # (Auto) Baso # (Auto) Abs Immat Gran (auto) Absolute Neuts (auto) Absolute Nucleated RBC Nucleated RBC % Creatinine Estim Creat Clear Calc Estimated GFR POC Capillary Glucose 172 H 156 H Vancomycin Trough 13.6 Discharge Plan Discharge Attending physician on discharge: Farzana Quiroga Consulting providers: Mirian Yost; Vidya Infante; Caron Chauhan; Ike Real Discharging Clinician: Farzana Quiroga Anticipated Discharge Date/Time: 04/03/25 15:14 Patient Disposition: Home with Home Health Service Activity: as tolerated Diet: as tolerated and heart healthy Discharge Instructions: Per Care Coordination: [facility] ([phone]) has been arranged for PT/OT/ST/RN services. RN please fax discharge paperwork to [phone] Patient Instructions: Antibiotic Form Patient Language: Khmer Stand Alone Forms: General Discharge Information Follow-up/Referrals: Ike Real MD [Physician] - (Patient needs to make appointment with urologist for follow-up) Mateo Alfaro MD [Primary Care Provider] - (See primary care doctor in 1 week) Discharge Medications: New levofloxacin 750 mg tablet 750 mg PO DAILY Qty: 4 0RF Continued (DME) FreeStyle Yulia 2 [place] Misc See Rx Instructions .Route Qty: 1 0RF Rx Instructions: As directed ammonium lactate [AmLactin] 12 % lotion 1 applic topical DAILY Qty: 225 5RF Patient Comments: pt applies to legs (DME) lancet-gluc test strip-needles Combo Pack See Rx Instructions .Route Qty: 300 0RF Rx Instructions: As directed baclofen 10 mg tablet 10 mg PO TID PRN (Reason: muscle spasm) (DME) OneTouch Verio test strips Strip See Rx Instructions .Route Qty: 300 0RF Rx Instructions: use 1 tid to check blood sugar atorvastatin 20 mg tablet See Rx Instructions .ROUTE .COMPLEX Qty: 90 2RF Dose Instruction: Take 1 tablet by mouth once daily Rx Instructions: Take 1 tablet by mouth once daily clonidine HCl 0.3 mg tablet See Rx Instructions .ROUTE .COMPLEX Qty: 60 5RF Dose Instruction: Take 1 tablet by mouth twice daily Rx Instructions: Take 1 tablet by mouth twice daily duloxetine 60 mg capsule,delayed release(DR/EC) See Rx Instructions .ROUTE .COMPLEX Qty: 90 0RF Dose Instruction: Take 1 capsule by mouth once daily Rx Instructions: Take 1 capsule by mouth once daily spironolactone 25 mg tablet 25 mg PO DAILY Qty: 30 3RF buspirone 10 mg tablet 10 mg PO BID Qty: 60 5RF Rybelsus 7 mg tablet 7 mg PO DAILY Qty: 30 3RF Patient Comments: pt cannot remember which day dapagliflozin propanediol [Farxiga] 10 mg tablet 10 mg PO DAILY Qty: 90 3RF oxybutynin chloride 10 mg tablet extended release 24hr 10 mg PO DAILY Qty: 30 3RF gabapentin 300 mg capsule 300 mg PO DAILY Qty: 90 1RF pioglitazone 15 mg tablet 15 mg PO DAILY Qty: 90 1RF hydrocodone-acetaminophen 5-325 mg tablet 1 tablet PO Q6H PRN (Reason: pain) Qty: 120 0RF metformin 500 mg tablet extended release 24 hr See Rx Instructions .ROUTE .COMPLEX Qty: 180 1RF Dose Instruction: Take 2 tablets by mouth twice daily Rx Instructions: Take 2 tablets by mouth twice daily (DME) FreeStyle Yulia 2 Sensor Kit See Rx Instructions .ROUTE .COMPLEX Qty: 2 0RF Dose Instruction: USE DIRECTED Rx Instructions: USE DIRECTED pantoprazole 40 mg tablet,delayed release (DR/EC) See Rx Instructions .ROUTE .COMPLEX Qty: 60 0RF Dose Instruction: Take 1 tablet by mouth once daily Rx Instructions: Take 1 tablet by mouth once daily metoprolol tartrate 100 mg tablet See Rx Instructions .ROUTE .COMPLEX Qty: 180 0RF Dose Instruction: Take 1 tablet by mouth twice daily Rx Instructions: Take 1 tablet by mouth twice daily Date of admission: 03/26/25 19:01 Primary Care Provider: Mateo Alfaro Admitting Provider: Rony Olmos Attending physician on admission: Rony Olmos Condition: Stable
== END 2025-04-03 17:50 | disposition home health service (06) | DRG 872 ==
LOC: ANHED 19:01 → ANH2MED 03-27 08:38 → ANH3MEDSUR 04-06 11:41
PROVIDERS: Nurse Practitioner Acute Care; Nurse Practitioner Gerontology; Physician Assistant; Admitting Provider Internal Medicine; Emergency Provider Registered Nurse; PCP Family Medicine Adolescent Medicine; Visit Provider Hospitalist
DX: A41.9 Sepsis, unspecified organism (principal); N17.9 Acute kidney failure, unspecified; E44.0 Moderate protein-calorie malnutrition; N39.0 Urinary tract infection, site not specified; G93.40 Encephalopathy, unspecified; L03.116 Cellulitis of left lower limb; L03.115 Cellulitis of right lower limb; R65.20 Severe sepsis without septic shock; K52.9 Noninfective gastroenteritis and colitis, unspecified; E78.5 Hyperlipidemia, unspecified; F03.90 Unspecified dementia, unspecified severity, without behavioral disturbance, psychotic disturbance, mood disturbance, and anxiety; M19.90 Unspecified osteoarthritis, unspecified site; L30.9 Dermatitis, unspecified; I87.2 Venous insufficiency (chronic) (peripheral); F41.1 Generalized anxiety disorder; M79.7 Fibromyalgia; I11.0 Hypertensive heart disease with heart failure; I50.9 Heart failure, unspecified; R63.0 Anorexia; K59.00 Constipation, unspecified; E11.65 Type 2 diabetes mellitus with hyperglycemia; E87.6 Hypokalemia; L89.90 Pressure ulcer of unspecified site, unspecified stage; R13.13 Dysphagia, pharyngeal phase; R41.89 Other symptoms and signs involving cognitive functions and awareness; R33.9 Retention of urine, unspecified; K80.20 Calculus of gallbladder without cholecystitis without obstruction; I25.2 Old myocardial infarction; Z68.23 Body mass index [BMI] 23.0-23.9, adult
CPT/HCPCS: 36415; 70450; 71045; 71260; 74177; 74230; 80048; 80053; 80076; 80202; 80307; 81001; 82077; 82140; 82550; 82565; 82948; 83605; 83690; 83735; 83880; 84145; 85025; 85610; 85652; 85730; 86140; 87040; 87086; 92523; 92526; 92610; 92611; 93005; 93970; 96365; 96375; 97110; 97162; 97166; 97530; 97535; 99285; A9270; J0360; J0616; J0692; J0696; J1650; J1938; J2270; J3373; J3475; J3480; J7030; J7040; J7042; Q9967

== ENCOUNTER 2025-04-18 13:58 | Inpatient (IN) | payer OTHER, MEDICARE, SELFPAY ==
[2025-04-18] VITALS (7 sets, daily range): BP systolic 103–138; BP diastolic 72–85; PULSE 78–106; RESP 16–20; TEMP 36.6–36.9; O2SAT 93–98; BMI 22.7
--- NOTE | ~2025-04-18 | XR_ITS ---
CHEST RADIOGRAPH, PA AND LATERAL CLINICAL HISTORY: weakness . COMPARISON: 03/29/2025 TECHNIQUE: PA and lateral views of the chest. FINDINGS The cardiomediastinal silhouette is unremarkable. Elevation of the right hemidiaphragm with adjacent compressive atelectasis. The remainder of the lungs are clear. IMPRESSION: No focal infiltrate or effusion. Reviewed, dictated and finalized at location A.
--- OUTSIDE RECORDS SUMMARY | 2025-04-18 14:28 | XMS_ITS | Clinical Summary ---
Author Organization [facility] [employer] Address [address] [place] [address] Care Team Providers Care Jet Handler Name Role Phone Mateo Alfaro MD Primary Care Provider [phone] Allergies Active Allergy Reactions Criticality Noted Date [...] Encounters Date Type Department Care Team Description 04/09/2025 Orders Only [facility] Oncology and Hematology - [place] [address] [place] [address] Emerson Souza MD Leukocytosis, unspecified type (Primary Dx) 03/17/2025 External Device Data STL ABSTRACTION Provider, [...] on file Legal Sex Female 9:41 AM 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 OR 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 Gender Identity Not on file Sexual Orientation [...] 165.1 cm (5' 5) 08/15/2023 1:57 PM HIDE OR SKIN BUFFER Body Mass Index 27.62 08/15/2023 1:57 PM HIDE OR SKIN BUFFER Plan of Treatment Upcoming Encounters Date Type Department Care Team (Late st Contact Info) Description 06/10/2025 2:00 PM CDT Office Visit [facility] Oncology and Hematology - [place] [address] [place] [address] Emerson Souza MD [address] [place] [address] Health Maintenance Due Date Last Done Comments [...] MED[place] PART A AND B [place] BLUE ACCESS/TRUE BLUE PPO [place] Care Teams Jet Handler Relationship Specialty Start Date End Date Mateo Alfaro MD PCP - General Family Practice 08/15/23
--- OUTSIDE RECORDS SUMMARY | 2025-04-18 14:28 | XMS_ITS | Clinical Summary ---
Author Organization Unknown Care Team Providers Care Life Insurance Specialist Name Role Phone YULISA ANASTASIYA Unavailable Unavailable [employer] PHYSICAL THERAPIST, STEVEN Unavailable Unavailable RICARDO DIRECTOR OF MARKETING [employer] PER[employer]MANCE ADS, KATEY Unav ailable Unavailable AMANDA REGISTERED NURSE ATOMIC SPECTROSCOPIST, ROSITA Tiana vailable Unavailable TONG OCCUPATIONAL THERAPIST, ELINA Unavailable Unavailable Payers Payer Name Policy Type Policy Number Effective Date Expira tion Date [employer] MEDICARE - EPISODIC Problems Condition Name Condition Details Condition Category Status Onset Date Resolution Date Last Treatment Date Treating Clinician Comments TUBULO-INTER STITIAL NEPHRITIS, NOT SPCF ACUTE OR CHRONIC Active 09-02 00:00: 00 DYSPHAGIA, PHARYNGEAL PHASE Active 09-02 00:00: 00 HYPERTENSIVE HEART DISEASE WITH HEART FAILURE Active 09-02 00:00: 00 HEART FAILURE, UNSPECIFIED Active 09-02 00:00: 00 TYPE 2 DIABETES MELLITUS WITHOUT COMPLICATION S Active 09-02 00:00: 00 DEPRESSION, UNSPECIFIED Active 09-02 00:00: 00 ANXIETY DISORDER, UNSPECIFIED Active - 00:00: 00 ANOREXIA Active 09-02 00:00: 00 CALCULUS OF GALLBLADDER W/O CHOLECYSTITI 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/O OBSTRUCTION Active 09-02 00:00: 00 ENCOUNTER FOR FITTING AND ADJUSTMENT OF URINARY DEVICE Active - 00:00: 00 RETENTION OF URINE, UNSPECIFIED Active - 00:00: 00 OTH SYMPTOMS AND SIGNS W COGNITIVE FUNCTIONS AND AWARENESS Active 09-02 00:00: 00 CUSTODIAL (CURRENT) USE OF ORAL HYPOGLYCEMIC DRUGS Active - 00:00: 00 Allergies, Adverse Reactions, Alerts Allergy Name Allergy Type Status Severity Reaction(s) Onset Date Inactive Date Treating Clinician Comments NO KNOWN ALLERGIES Propensity to adverse reactions Active 8-05 16:03: 01 Medications Ordered Medication Name Filled Medication Name Start Date Stop Date Current Medication? Ordering Clinician Indication Dosage Frequency Signature (SIG) Comments Components atorvastati n 20 mg tablet 04-05 00:00: 00 Yes [id number] HIGH CHOLESTEROL 1 tablet DAILY 1 tablet DAILY (route: oral) Med Classific ation: Cardiovas cular Therapy Agents baclofen 10 mg tablet 04-05 00:00: 00 Yes [id number] MUSCLE SPASMS 1 tablet 3 TIMES DAILY 1 tablet 3 TIMES DAILY (route: oral) Med Classific ation: Locomotor System buspirone 10 mg tablet 04-05 00:00: 00 Yes [id number] ANXIETY 1 tablet 2 TIMES DAILY 1 tablet 2 TIMES DAILY (route: oral) Med Classific ation: Central Nervous System Agents clonidine HCl 0.3 mg tablet 04-05 00:00: 00 Yes [id number] HTN 1 tablet 2 TIMES DAILY 1 tablet 2 TIMES DAILY (route: oral) Med Classific ation: Cardiovas cular Therapy Agents dapaglifloz in propanediol 10 mg tablet 04-05 00:00: 00 Yes [id number] DM2 1 tablet DAILY 1 tablet DAILY (route: oral) Med Classific ation: Endocrine duloxetine 60 mg capsule,del ayed release 04-05 00:00: 00 Yes [id number] DEPRESSION 1 capsule DAILY 1 capsule DAILY (route: oral) Med Classific ation: Central Nervous System Agents gabapentin 300 mg capsule 04-05 00:00: 00 Yes [id number] NEUROPATHY 1 capsule DAILY 1 capsule DAILY (route: oral) Med Classific ation: Central Nervous System Agents hydrocodone 5 mg-acetamin ophen 325 mg tablet 04-05 00:00: 00 Yes [id number] PAIN 1 tablet EVERY 6 HOURS 1 tablet EVERY 6 HOURS (route: oral) Med Classific ation: Analgesic , Anti-infl ammatory or Antipyret ic levofloxaci n 750 mg tablet 04-05 00:00: 00 04-08 23:59 :00 No [id number] UTILITIES 1 tablet DAILY 1 tablet DAILY (route: oral) Med Classific ation: Anti-Infe ctive Agents metformin 500 mg tablet 04-05 00:00: 00 Yes [id number] DM2 2 tablet 2 TIMES DAILY 2 tablet 2 TIMES DAILY (route: oral) Med Classific ation: Endocrine metoprolol succinate ER 100 mg tablet,exte nded release 24 hr 04-05 00:00: 00 Yes [id number] HTN 1 tablet 2 TIMES DAILY 1 tablet 2 TIMES DAILY (route: oral) Med Classific ation: Cardiovas cular Therapy Agents pantoprazol e 40 mg tablet,jayme yed release 04-05 00:00: 00 Yes [id number] INDIGESTION 1 tablet DAILY 1 tablet DAILY (route: oral) Med Classific ation: Gastroint estinal Therapy Agents pioglitazon e 15 mg tablet 04-05 00:00: 00 Yes [id number] DM2 1 tablet DAILY 1 tablet DAILY (route: oral) Med Classific ation: Endocrine Rybelsus 7 mg tablet 04-05 00:00: 00 Yes [id number] DM2 1 tablet DAILY 1 tablet DAILY (route: oral) Med Classific ation: Endocrine spironolact one 25 mg tablet 04-05 00:00: 00 Yes [id number] FLUID RETENTION 1 tablet DAILY 1 tablet DAILY (route: oral) Med Classific ation: Cardiovas cular Therapy Agents Immunizations Ordered Immunization Name Filled Immunization Name Date Status Comments Refusal Reason INFLUENZA OFFERED AND DECLINED, TIV (INACTIVATED) 2025-04-06 00:00:00 PNEUMOCOCCAL - DISCUSSED AND DECLINED, PPV 2025-04-06 00:00:00 Vital Signs Vital Name Observation Time Observation Value Commen ts Temperature 2025-04-15 12:28:00.000 97.4 [degF] Temperature 2025-04-14 12:04:00.000 97.8 [degF] Temperature 2025-04-13 14:32:00.000 98 [degF] Temperature 2025-04-12 13:10:00.000 97.7 [degF] Temperature 2025-04-07 13:36:00.000 97.5 [degF] Temperature 2025-04-07 13:06:00.000 97 [degF] Temperature 2025-04-06 15:57:00.000 97.4 [degF] BMI (%) 2025-04-06 15:57:00.000 27 kg/m2 Height 2025-04-06 15:57:00.000 65 [in_us] Pulse 2025-04-15 12:28:00.000 94 /min Pulse 2025-04-14 12:04:00.000 94 /min Pulse 2025-04-13 14:32:00.000 90 /min Pulse 2025-04-12 13:10:00.000 99 /min Pulse 2025-04-07 13:36:00.000 82 /min Pulse 2025-04-07 13:06:00.000 82 /min Pulse 2025-04-06 15:57:00.000 85 /min O2 Saturation (%) 2025-04-15 12:28:00.000 97 % O2 Saturation (%) 2025-04-14 12:04:00.000 98 % O2 Saturation (%) 2025-04-13 14:32:00.000 98 % O2 Saturation (%) 2025-04-12 13:10:00.000 98 % O2 Saturation (%) 2025-04-07 13:36:00.000 98 % O2 Saturation (%) 2025-04-07 13:06:00.000 98 % O2 Saturation (%) 2025-04-06 15:57:00.000 97 % Respirations 2025-04-15 12:28:00.000 16 /min Respirations 2025-04-14 12:04:00.000 18 /min Respirations 2025-04-13 14:32:00.000 20 /min Respirations 2025-04-12 13:10:00.000 16 /min Respirations 2025-04-07 13:36:00.000 18 /min Respirations 2025-04-07 13:06:00.000 18 /min Respirations 2025-04-06 15:57:00.000 18 /min Weight (lbs) 2025-04-06 15:57:00.000 165 [lb_av] Systolic Blood Pressure 2025-04-15 12:28:00.000 112 mm [Hg] Systolic Blood Pressure 2025-04-14 12:36:00.000 108 mm [Hg] Systolic Blood Pressure 2025-04-13 14:32:00.000 102 mm [Hg] Systolic Blood Pressure 2025-04-12 13:10:00.000 104 mm [Hg] Systolic Blood Pressure 2025-04-07 13:36:00.000 100 mm [Hg] Systolic Blood Pressure 2025-04-07 13:06:00.000 100 mm [Hg] Systolic Blood Pressure 2025-04-06 15:57:00.000 134 mm [Hg] Diastolic Blood Pressure 2025-04-15 12:28:00.000 62 mm [Hg] Diastolic Blood Pressure 2025-04-14 12:36:00.000 68 mm [Hg] Diastolic Blood Pressure 2025-04-13 14:32:00.000 70 mm [Hg] Diastolic Blood Pressure 2025-04-12 13:10:00.000 68 mm [Hg] Diastolic Blood Pressure 2025-04-07 13:36:00.000 54 mm [Hg] Diastolic Blood Pressure 2025-04-07 13:06:00.000 54 mm [Hg] Diastolic Blood Pressure 2025-04-06 15:57:00.000 76 mm [Hg] Plan of Treatment Planned Activity Planned Date Details Comments Future Scheduled Test THE CER TIFYING PHYSICIAN, ASSOCIATED PHYSICIAN, NPP OR PA WITHIN THE SAME GROUP MAY APPROVE AND SIGN THE ORDER (ON ANY PAGE) ATTESTING THAT THE COMPREHENSIVE OUTCOME ASSESSMENTS, EVALUATIONS, AND HOME HEALTH CERTIFICATION PLANS SUPPORT HOMEBOUND STATUS. HOME HEALTH WEB-PORTAL DOCUMENTATION ACCESSED BY THE PHYSICIAN MUST BE INCORPORATED INTO THE MEDICAL RECORD TO CORROBORATE THE PHYSICIAN, NPP, OR PAS F2F ENCOUNTER TO SUPPORT ELIGIBILITY FOR HOME HEALTH SERVICES. [code = THE CERTIFYING PHYSICIAN, ASSOCIATED PHYSICIAN, NPP OR PA WITHIN THE SAME GROUP MAY APPROVE AND SIGN THE ORDER (ON ANY PAGE) ATTESTING THAT THE COMPREHENSIVE OUTCOME ASSESSMENTS, EVALUATIONS, AND HOME HEALTH CERTIFICATION PLANS SUPPORT HOMEBOUND STATUS. HOME HEALTH WEB-PORTAL DOCUMENTATION ACCESSED BY THE PHYSICIAN MUST BE INCORPORATED INTO THE MEDICAL RECORD TO CORROBORATE THE PHYSICIAN, NPP, OR PAS F2F ENCOUNTER TO SUPPORT ELIGIBILITY FOR HOME HEALTH SERVICES.] Future Scheduled Test EACH ORDER ED IN-HOME OR TELEHEALTH VISIT, THE SKILLED NURSE WILL CONDUCT A COMPREHENSIVE ASSESSMENT INCLUDING VITAL SIGNS, PAIN, SAFETY, MENTAL/COGNITIVE/PSYCHOSOCIAL STATUS, MED MANAGEMENT, NUTRITION, SKIN INTEGRITY, PRESSURE ULCER PREVENTION, AND PATIENT/CAREGIVER ABILITY TO SUPPORT ORDERED CARE. SKILLED NURSE WILL INSTRUCT ON DISEASE PROCESS, MED MGMT., FALL PREVENTION AND SAFETY, INFECTION CONTROL AND PREVENTION, WARNING SIGNS, ADDRESS RESULTS OUTSIDE OF ORDERED PARAMETERS LISTED ON CARE PLAN, AND COORDINATE DISCHARGE WITH THE TREATING PROVIDER. MAY ACCEPT ORDERS FROM THE FOLLOWING PROVIDER(S) WHO WILL BE CONSULTING ON THE CERTIFIED CARE PLAN: DR. SIMEON, DR. ARREGUIN [code = EACH ORDERED IN-HOME OR TELEHEALTH VISIT, THE SKILLED NURSE WILL CONDUCT A COMPREHENSIVE ASSESSMENT INCLUDING VITAL SIGNS, PAIN, SAFETY, MENTAL/COGNITIVE/PSYCHOSOCIAL STATUS, MED MANAGEMENT, NUTRITION, SKIN INTEGRITY, PRESSURE ULCER PREVENTION, AND PATIENT/CAREGIVER ABILITY TO SUPPORT ORDERED CARE. SKILLED NURSE WILL INSTRUCT ON DISEASE PROCESS, MED MGMT., FALL PREVENTION AND SAFETY, INFECTION CONTROL AND PREVENTION, WARNING SIGNS, ADDRESS RESULTS OUTSIDE OF ORDERED PARAMETERS LISTED ON CARE PLAN, AND COORDINATE DISCHARGE WITH THE TREATING PROVIDER. MAY ACCEPT ORDERS FROM THE FOLLOWING PROVIDER(S) WHO WILL BE CONSULTING ON THE CERTIFIED CARE PLAN: DR. SIMEON, DR. ARREGUIN] Future Scheduled Test PATIENT RE QUIRED A DELAY IN THE HOME HEALTH START OF CARE/RESUMPTION OF CARE. THE DELAY(S) REQUIRED A NOTIFICATION AND APPROVAL BY THE PHYSICIAN OR ALLOWABLE PRACTITIONER WHICH WAS DONE ON 04/05/2025 THE NEW PHYSICIAN ORDERED START OF CARE/RESUMPTION OF CARE DATE(S) 04/06/2025 PATIENTS REASON(S) TO DELAY HOME HEALTH INCLUDED PATIENT REQUEST [code = PATIENT REQUIRED A DELAY IN THE HOME HEALTH START OF CARE/RESUMPTION OF CARE. THE DELAY(S) REQUIRED A NOTIFICATION AND APPROVAL BY THE PHYSICIAN OR ALLOWABLE PRACTITIONER WHICH WAS DONE ON 04/05/2025 THE NEW PHYSICIAN ORDERED START OF CARE/RESUMPTION OF CARE DATE(S) 04/06/2025 PATIENTS REASON(S) TO DELAY HOME HEALTH INCLUDED PATIENT REQUEST ] Future Scheduled Test HOME HEALT H NURSE WILL TEACH PATIENT/CAREGIVER ABOUT HEART FAILURE, EDEMA, AND HOW TO WEIGH DAILY AT THE SAME TIME EVERY MORNING AFTER URINATING AND BEFORE BREAKFAST. INSTRUCT PATIENT TO CHECK FOR WEIGHT GAIN CAUSED BY INCREASED FLUID AND CONTACT THE PHYSICIAN IF 2LBS WEIGHT GAIN IN 1 DAY OR 5LBS WEIGHT GAIN IN 1 WEEK. HOME HEALTH RN TO TEACH PATIENT ABOUT WARNING SIGNS TO CONTACT THE AGENCY, PHYSICIAN, OR 911. MAY ADD 2 PRN VISITS PER MONTH FOR SIGNS/SYMPTOMS OF EXACERBATION SUCH INCREASED EDEMA, WEIGHT GAIN, SHORTNESS OF BREATH, OR FATIGUE. [code = HOME HEALTH NURSE WILL TEACH PATIENT/CAREGIVER ABOUT HEART FAILURE, EDEMA, AND HOW TO WEIGH DAILY AT THE SAME TIME EVERY MORNING AFTER URINATING AND BEFORE BREAKFAST. INSTRUCT PATIENT TO CHECK FOR WEIGHT GAIN CAUSED BY INCREASED FLUID AND CONTACT THE PHYSICIAN IF 2LBS WEIGHT GAIN IN 1 DAY OR 5LBS WEIGHT GAIN IN 1 WEEK. HOME HEALTH RN TO TEACH PATIENT ABOUT WARNING SIGNS TO CONTACT THE AGENCY, PHYSICIAN, OR 911. MAY ADD 2 PRN VISITS PER MONTH FOR SIGNS/SYMPTOMS OF EXACERBATION SUCH INCREASED EDEMA, WEIGHT GAIN, SHORTNESS OF BREATH, OR FATIGUE.] Future Scheduled Test SKILLED NU RSE TO OBSERVE AND ASSESS PATIENT WITH GENERALIZED DEPRESSION AND TEACH DEPRESSIVE SYMPTOMS. [code = SKILLED NURSE TO OBSERVE AND ASSESS PATIENT WITH GENERALIZED DEPRESSION AND TEACH DEPRESSIVE SYMPTOMS.] Future Scheduled Test SKILLED NU RSE TO ASSESS PATIENT WITH ANXIETY DISORDER AND TEACH SYMPTOMS OF ANXIETY. [code = SKILLED NURSE TO ASSESS PATIENT WITH ANXIETY DISORDER AND TEACH SYMPTOMS OF ANXIETY.] Future Scheduled Test HOME HEALT H NURSE WILL INSTRUCT PATIENT/CAREGIVER ON TYPE 2 DIABETES DISEASE PROCESS, HOW TO CREATE A DIABETIC TOOLKIT TO MANAGE INVENTORY OF SUPPLIES, HOW TO PLAN FOR A SICK-DAY, AND WARNING SIGNS WHEN THE PATIENT EXPERIENCES LOW BLOOD SUGAR. [code = HOME HEALTH NURSE WILL INSTRUCT PATIENT/CAREGIVER ON TYPE 2 DIABETES DISEASE PROCESS, HOW TO CREATE A DIABETIC TOOLKIT TO MANAGE INVENTORY OF SUPPLIES, HOW TO PLAN FOR A SICK-DAY, AND WARNING SIGNS WHEN THE PATIENT EXPERIENCES LOW BLOOD SUGAR.] Future Scheduled Test HOME HEALT H NURSE WILL INSTRUCT AND VERIFY APPROPRIATE STEPS ON HOW THE PATIENT CHECKS OWN BLOOD GLUCOSE AND IMPORTANCE TO TRACK BLOOD RESULTS ON A DAILY LOG OR NOTEBOOK TO MONITOR TRENDS. PATIENT/CAREGIVER OR HOME HEALTH RN WILL PERFORM BLOOD GLUCOSE CHECKS. BLOOD GLUCOSE MONITORING WILL OCCUR 3-4 NUMBER OF TIMES PER DAY. [code = HOME HEALTH NURSE WILL INSTRUCT AND VERIFY APPROPRIATE STEPS ON HOW THE PATIENT CHECKS OWN BLOOD GLUCOSE AND IMPORTANCE TO TRACK BLOOD RESULTS ON A DAILY LOG OR NOTEBOOK TO MONITOR TRENDS. PATIENT/CAREGIVER OR HOME HEALTH RN WILL PERFORM BLOOD GLUCOSE CHECKS. BLOOD GLUCOSE MONITORING WILL OCCUR 3-4 NUMBER OF TIMES PER DAY.] Future Scheduled Test HOME HEALT H NURSE TO INSTRUCT ON URINARY TRACT INFECTION, PREVENTION, SYMPTOMS AND WHEN TO REPORT TO THE AGENCY, PHYSICIAN, OR 911. [code = HOME HEALTH NURSE TO INSTRUCT ON URINARY TRACT INFECTION, PREVENTION, SYMPTOMS AND WHEN TO REPORT TO THE AGENCY, PHYSICIAN, OR 911.] Future Scheduled Test PATIENT LAWS S A 18FR 10ML GARCIA CATHETER THAT CURRENTLY BEING MANAGED BY UROLOGY [code = PATIENT HAS A 18FR 10ML GARCIA CATHETER THAT CURRENTLY BEING MANAGED BY UROLOGY] Future Scheduled Test PHYSICAL T HERAPIST TO EVALUATE AND TREAT [code = PHYSICAL THERAPIST TO EVALUATE AND TREAT] Future Scheduled Test OCCUPATION AL THERAPIST TO EVALUATE AND TREAT [code = OCCUPATIONAL THERAPIST TO EVALUATE AND TREAT] Future Scheduled Test SPEECH NUHA GUAGE PATHOLOGIST TO EVALUATE AND TREAT. [code = SPEECH LANGUAGE PATHOLOGIST TO EVALUATE AND TREAT.] Goal Patient Goal - S OC- 04/06/25- GET STRONGER AND GET RID OF GARCIA CATHETER Goal Provider Goal - A PLAN OF CARE WILL BE ESTABLISHED THAT MEETS ALL PATIENT'S JAIL NEEDS AND COUNTER SIGNED BY PHYSICIAN. Goal Provider Goal - PATIENT WILL BE FREE OF FALLS AND HOSPITALIZATIONS THROUGHOUT EPISODE OF CARE. PATIENT/CAREGIVER WILL UNDERSTAND AND ADHERE TO ORDERED DIET. PATIENT/CAREGIVER WILL INDEPENDENTLY MANAGE MEDICATIONS, UNDERSTAND ANY CHANGES, SIDE EFFECTS TO REPORT BY DISCHARGE. PATIENT WILL BE FREE OF INFECTION AND UNDERSTAND MEASURES OF PREVENTION. PATIENT/CAREGIVER WILL COLLABORATE WITH SKILLED NURSE TO DEVELOP POC AT SOC AND ON AN ONGOING BASIS UPDATES ARE NEEDED. UNDERSTAND PROGRESS MADE/DISCHARGE PLANNING. ADDITIONAL ORDERS WILL BE RECEIVED FROM ALTERNATE PHYSICIANS IN A TIMELY MANNER. Goal Provider Goal - PATIENT WILL RECEIVE HOME HEALTH SERVICES ON ORDERED START DATE. Goal Provider Goal - PATIENT/CAREGIVER WILL DEMONSTRATE AND ADHERE TO WEIGHING DAILY WITH THE USE OF TRACKING LOG. PATIENT WILL VERBALIZE WAYS TO MONITOR FLUID OVERLOAD FROM OWN QUALITY OF SLEEP, EDEMA, TIGHT-FITTING CLOTHES, QUALITY OF BREATHING, AND CHANGES IN FEELING MORE TIRED OR WEEK BY THE END OF HOME HEALTH SERVICES. Goal Provider Goal - PATIENT/CAREGIVER WILL VERBALIZE UNDERSTANDING OF THE CONTRIBUTING FACTORS AND SYMPTOMS OF DEPRESSION. Goal Provider Goal - PATIENT/CAREGIVER WILL VERBALIZE UNDERSTANDING OF THE CONTRIBUTING FACTORS AND SYMPTOMS OF ANXIETY. Goal Provider Goal - PATIENT/CAREGIVER WILL VERBALIZE UNDERSTANDING OF TYPE 2 DIABETES AND THE IMPORTANCE OF MANAGING THE BLOOD SUGAR WITHIN THE EXPECTED RANGE. PATIENT/CAREGIVER WILL ESTABLISH A DIABETIC TOOLKIT AND A SICK-DAY PLAN TO PREPARE FOR POTENTIAL CHANGES WITH BLOOD SUGARS RANGES. PATIENT/CAREGIVER WILL VERBALIZE WARNING SIGNS OF LOW BLOOD SUGAR AND WHAT ACTIONS TO TAKE. Goal Provider Goal - PATIENT/CAREGIVER WILL DEMONSTRATE PROPER TECHNIQUE WHEN CHECKING OWN BLOOD GLUCOSE, DEMONSTRATES ADHERES TO WRITING DOWN RESULTS USING A LOGBOOK, FOLLOWS THE PRESCRIBED FREQUENCY OF BLOOD SUGAR CHECKS PRIOR TO DISCHARGING FROM HOME HEALTH SERVICES. Goal Provider Goal - PATIENT/CAREGIVER WILL INDEPENDENTLY VERBALIZE WAYS TO PREVENT A UTI AND VERBALIZE SYMPTOMS TO REPORT TO THE PHYSICIAN BY THE END OF HOME HEALTH SERVICES. Goal Provider Goal - Goal Provider Goal - Goal Provider Goal - Progress Notes Progress Notes <paragraph>[Visit Date: 2024 by KATEY SILVA DIRECTOR OF MARKETING [employer]S]:</paragraph><paragraph>PATIENT SEEN FOR SKILLED THERAPY DUE TO PRIMARY DX OF UTI/SEPSIS WITH PMHX OF CAD, CHF, DM, GARCIA CATHETER, CELLULITIES AND DYSPHAGIA REQUIRING ASSISTANCE FROM SPOUSE WITH ALL FUNCTIONAL TASKS DUE TO OVERALL WEAKNESS, DECONDITIONING, AND HIGH FALL RISK. PROGRESS LIMITED DUE TO PTNT HAVING AN APPT WITH PCP LATER TODAY AND PTNT/SPOUSE NOT WANTING HER TO BE TO FATIGUED WHEN LEAVING HOME DUE TO REQUIRING EXTENSIVE ASSIST. PTNT WAS AGREEABLE TO PERFORM SEATED LE HEP BUT POOR TOLERANCE OBSERVED DUE TO WEAKNESS, FATIGUE, AND REPORTS OF PAIN. THERAPIST PROVIDED EDUCATION TO PTNT/CG ON BENEFITS OF HEP COMPLETION TO ASSIST WITH STRENGTH ALONG WITH FALL PREVENTION STRATEGIES AND ASSISTANCE WITH ALL TASKS AT THIS TIME. PTNT/SPOUSE AGREE AND V/U OF ALL. ONGOING THERAPY RECOMMENDED TO ASSESS CARRYOVER OF NEWLY FACILITATED HEP AND IMPROVE PTNT/CG TECHNIQUE WITH TRANSFERS/AMB TO DECREASE FALL RISK AND IMPROVE FUNCTIONAL INDEPENDENCE</paragraph> <paragraph>[Visit Date: 2024 by OZ ABARCA LICENSED PRACTICAL NURSE]:</paragraph><paragraph>SNV FOR UTI/SEPSIS. GARCIA: SHE USES A WALKER FOR AMBULATION. DENIES FALLS, ER VISITS OR DR VISITS SINCE LAST SN VISIT. UPON ARRIVAL, GREETED BY PATIENT'S SPOUSE AT THE DOOR. PATIENT SITTING IN RECLINER. APPEAR IN NO ACUTE DISTRESS. VSS. ASSESSMENT COMPLETE. REPORTS GOOD PO INTAKE AND REGULAR BOWEL HABITS. PATIENT WITH GARCIA CATH IN PLACE FROM HOSPITAL STAY DUE TO RETENTION. SPOUSE TO CALL IN THE MORNING TO SCHEDULE FOLLOW UP VISIT WITH UROLOGY. PATIENT RATES PAIN TO JOINTS 6/10. LUNG SOUNDS CLEAR. DENIES COUGH/SOB WITH REST/FALLS/CHEST PAIN. SKIN CHECK PERFORMED. PATIENT WITH 1+ EDEMA TO BILAT LOWER EXTREM. ENCOURAGED TO ELEVATED LEGS. PATIENT VERBALIZED UNDERSTANDING. PATIENT WEARS GCM- RBS DURING VISIT WAS 153. PATIENT STATES SHE HAS TROUBLE WITH MEMORY. AOX3 AT VISIT. WILL HAVE ST EVAL NEXT WEEK. REPORTS HAVING WEAKNESS. USES WALKER FOR AMBULATION. WILL HAVE PT EVAL THIS WEEK. EDUCATION PROVIDED ON UTI PREVENTION, GARCIA CATH CARE, MEDICATIONS, HOSPITAL DC INSTRUCTIONS, INFECTION CONTROL, DM2, CARDIAC PRECAUTIONS, NUTRITION, FALL PRECAUTIONS, AGENCY BOOKLET, AND S/S TO REPORT. PATIENT VERBALIZED UNDERSTANDING. DENIES ANY OTHER QUESTIONS/CONCERNS. UPON NURSE DEPARTURE, PATIENT STABLE</paragraph> Encounters Start Date/Time End Date/Time Encounter Type Admission Type Attending [facility] Care Department Encounter ID Discharge Date Discharge Status Discharge Condition Discharge Reason Percent Goals Met 2025-04-06 00:00:00 2025-06-04 00:00:00 Outpatient NEW ADMISSION [facility]ITA [facility] [id number] 45.83
--- OUTSIDE RECORDS SUMMARY | 2025-04-18 14:29 | XMS_ITS | Clinical Summary ---
Author Organization Unknown Care Team Providers Care Thermostat Maker Name Role Phone YULISA ANASTASIYA Unavailable Unavailable [employer] PHYSICAL THERAPIST, STEVEN Unavailable Unavailable RICARDO ROOFING LAYER, KATEY Unav ailable Unavailable AMANDA REGISTERED NURSE COMMUNICATIONS CONTROLLER, ROSITA Tiana vailable Unavailable TONG OCCUPATIONAL THERAPIST, [...] FUNCTIONS AND AWARENESS Active 09-02 00:00: 00 RETIREMENT (CURRENT) USE OF ORAL HYPOGLYCEMIC DRUGS Active [...] 20 mg tablet 04-05 00:00: 00 Yes [id number] HIGH CHOLESTEROL 1 tablet DAILY 1 tablet DAILY (route: oral) Med Classific ation: Cardiovas cular Therapy Agents baclofen 10 mg tablet 04-05 00:00: 00 Yes [id number] MUSCLE SPASMS 1 tablet 3 TIMES DAILY 1 tablet 3 TIMES DAILY (route: oral) Med Classific ation: Locomotor System buspirone 10 mg tablet 04-05 00:00: 00 Yes [id number] ANXIETY 1 tablet 2 TIMES DAILY 1 tablet 2 TIMES DAILY (route: oral) Med Classific ation: Central Nervous System Agents clonidine HCl 0.3 mg tablet 04-05 00:00: 00 Yes [id number] HTN 1 tablet 2 TIMES DAILY 1 tablet 2 TIMES DAILY (route: oral) Med Classific ation: Cardiovas cular Therapy Agents dapaglifloz in propanediol 10 mg tablet 04-05 00:00: 00 Yes [id number] DM2 1 tablet DAILY 1 tablet DAILY (route: oral) Med Classific ation: Endocrine duloxetine 60 mg capsule,del ayed release 04-05 00:00: 00 Yes [id number] DEPRESSION 1 capsule DAILY 1 capsule DAILY (route: oral) Med Classific ation: Central Nervous System Agents gabapentin 300 mg capsule 04-05 00:00: 00 Yes [id number] NEUROPATHY 1 capsule DAILY 1 capsule DAILY (route: oral) Med Classific ation: Central Nervous System Agents hydrocodone 5 mg-acetamin ophen 325 mg tablet 04-05 00:00: 00 Yes [id number] PAIN 1 tablet EVERY 6 HOURS 1 tablet EVERY 6 HOURS (route: oral) Med Classific ation: Analgesic , Anti-infl ammatory or Antipyret ic levofloxaci n 750 mg tablet 04-05 00:00: 00 04-08 23:59 :00 No [id number] UTILITIES 1 tablet DAILY 1 tablet DAILY (route: oral) Med Classific ation: Anti-Infe ctive Agents metformin 500 mg tablet 04-05 00:00: 00 Yes [id number] DM2 2 tablet 2 TIMES DAILY 2 tablet 2 TIMES DAILY (route: oral) Med Classific ation: Endocrine metoprolol succinate ER 100 mg tablet,exte nded release 24 hr 04-05 00:00: 00 Yes [id number] HTN 1 tablet 2 TIMES DAILY 1 tablet 2 TIMES DAILY (route: oral) Med Classific ation: Cardiovas cular Therapy Agents pantoprazol e 40 mg tablet,jayme yed release 04-05 00:00: 00 Yes [id number] INDIGESTION 1 tablet DAILY 1 tablet DAILY (route: oral) Med Classific ation: Gastroint estinal Therapy Agents pioglitazon e 15 mg tablet 04-05 00:00: 00 Yes [id number] DM2 1 tablet DAILY 1 tablet DAILY (route: oral) Med Classific ation: Endocrine Rybelsus 7 mg tablet 04-05 00:00: 00 Yes [id number] DM2 1 tablet DAILY 1 tablet DAILY (route: oral) Med Classific ation: Endocrine spironolact one 25 mg tablet 04-05 00:00: 00 Yes [id number] FLUID RETENTION 1 tablet DAILY 1 tablet [...] WILL BE ESTABLISHED THAT MEETS ALL PATIENT'S INTERMEDIATE NEEDS AND COUNTER SIGNED BY PHYSICIAN. Goal [...] Notes <paragraph>[Visit Date: 2024 by KATEY SILVA ROOFING LAYER]:</paragraph><paragraph>PATIENT SEEN FOR SKILLED THERAPY DUE TO PRIMARY [...] OZ ABARCA LICENSED PRACTICAL NURSE]:</paragraph><paragraph>SNV FOR UTI/SEPSIS. GRACIA: SHE USES A WALKER FOR AMBULATION. DENIES [...] End Date/Time Encounter Type Admission Type Attending [facility] Care Department Encounter ID Discharge Date Discharge Status Discharge Condition Discharge Reason Percent Goals Met 2025-04-06 00:00:00 2025-06-04 00:00:00 Outpatient NEW ADMISSION ROSITA [facility] [id number] 45.83
[2025-04-18 16:20] LABS: Hematocrit 37.3 % (37.0-47.0); Hemoglobin 11.8 g/dL (12.0-15.0); Immature Granulocyte Percent A 0.3 % (0-0.5); Lymphocytes Absolute Auto 3.09 K/mm3 (0.9-3.2); Mean Corpuscular HGB Conc 31.6 g/dl (32-36); Mean Corpuscular Hemoglobin 28.4 pg (26-34); Mean Corpuscular Volume 89.7 fl (80-100); Nucleated Red Blood Cells Absolute Auto 0.000 K/mm3 (0.0-0.012); Nucleated Red Blood Cells Perc 0.0 % (0.0-0.2); Platelet Count Result 280 k/mm3 (150-375); Red Blood Count 4.16 M/mm3 (4.2-5.4); White Blood Count 14.9 K/mm3 (4.5-10.0)
[2025-04-18 16:36] LABS: Alanine Aminotransferase 13 U/L (6-35); Albumin Level 3.9 g/dL (3.5-5.1); Alkaline Phosphatase 64 U/L (38-126); Anion Gap 8 mmol/L (4-12); Aspartate Amino Transferase 21 U/L (14-36); Bilirubin,Total 0.5 mg/dL (0.2-1.3); Blood Urea Nitrogen 37 mg/dL (7-17); Calcium 9.4 mg/dL (8.4-10.2); Carbon Dioxide 31 mmol/L (22-30); Chloride 94 mmol/L (98-107); Estimated CRCL calculation 29 ml/min; Estimated Glomerular Filt Rate 37; Glucose 113 mg/dL (65-110); Potassium 4.6 mmol/L (3.4-5.0); Sodium 133 mmol/L (137-145); Total Protein 7.4 g/dL (6.3-8.2)
[2025-04-18] MEDS: SODIUM CHLORIDE 0.9% IV 1,000 ML 999 ML IV CONT (16:45)
[2025-04-18 16:54] LABS: Add Urine Microscopic? YES; Appearance Urine Cloudy (Clear); Budding Yeast Urine Present /hpf; Glucose Urine UA 2+ mg/dL (Negative); Leukocyte Esterase Ur 3+ LEU/UL (Negative); Nitrate Urine Negative (Negative); Non Pathogenic Casts 0-2; Specific Grav Ur 1.013 (1.001-1.035)
[2025-04-18 17:13] LABS: Influenza A QL RT-PCR Negative (Negative); Influenza B QL RT-PCR Negative (Negative); RSV RNA, RT-PCR Negative (Negative); SARS-CoV-2 RNA PCR Negative (Negative)
--- NOTE | 2025-04-18 17:40 | ED.WEAKNESS ---
HPI - Weakness General Chief complaint: Weakness Stated complaint: gen. weakness, UTI? Time Seen by Provider: 04/18/25 14:07 History of Present Illness HPI Narrative: Patient is a 75-year-old female who presents ER with reports of progressive weakness over last 1-2 weeks. She has started having burning urination. She does have a catheter. No fevers or chills. No chest pain or chest pressure. No vomiting but poor oral intake of food. Related Data Home Medications ?Medication ?Instructions ?Recorded ?Confirmed ?Last Taken ?Type baclofen 10 mg tablet 10 mg PO TID PRN muscle spasm 03/26/25 04/14/25 Unknown History Allergies Allergy/AdvReac Type Severity Reaction Status Date / Time amoxicillin (From Augmentin) Allergy Unknown Verified 04/18/25 14:08 clavulanic acid (From Allergy Unknown Verified 04/18/25 14:08 Augmentin) Review of Systems Review of Systems: All systems reviewed & are unremarkable except as noted in HPI and below Constitutional: Constitutional: Reports no additional constitutional complaints Cardiovascular: Cardiovascular: Reports no additional cardiovascular complaints Respiratory: Respiratory: Reports no additional respiratory complaints Gastrointestinal: Gastrointestinal: Reports no additional gastrointestinal complaints [facility] Past Medical History Medical History Eczema Osteoarthritis Venous insufficiency (chronic) (peripheral) DM2 (diabetes mellitus, type 2) Non-ST elevated myocardial infarction (non-STEMI) Osteoarthritis of hands, bilateral Bilateral primary osteoarthritis of knee Essential (primary) hypertension Fibromyalgia Generalized anxiety disorder Arthralgia of multiple joints Surgical History Surgical History History of tubal ligation (~1989) Family History Family History Grandparent Acute myocardial infarction Cerebrovascular accident Heart disease Mother Colon polyp Diabetes mellitus Pancreatic adenocarcinoma Other Depression Hypertension Neuralgia of both lower extremities Social History Social History Social History: Surrogate medical decision maker: Shravan Ramsay, spouse. Code status: Full code. Smoking status: Former smoker Tobacco type: cigarettes Second hand tobacco smoke exposure: No Additional smoking assessment comments: current every day marijuana pipe smoker Alcohol intake: never Substance use: current Substance use type: marijuana Last use: 03/26/25 Do You Feel Safe in your Home?: Yes Lack of Transportation: No Lack of Food: Never True Current Housing: I Have Housing Concerned About Future Housing: No Difficulty Paying Gas/Electric Bills: No Difficulty Paying for Meds: No Currently Unemployed: No Education: Associate Degree Difficulty w/ Childcare or Family Care: No Living arrangements: with family Occupation/Education: retired Spiritual care concerns: No Agree to blood products: Yes Exam Narrative: GENERAL: Well-appearing, well-nourished, and in no acute distress. HEAD: Normocephalic, atraumatic. ENT: Mucous membranes moist. CHEST: Clear to auscultation. No respiratory distress. HEART: Regular rate and rhythm. Normal peripheral pulses. ABDOMEN: Soft, nontender, nondistended. EXTREMITIES: Normal range of motion. No edema. SKIN: Warm, dry, no rash. NEURO: Alert and oriented x3. PSYCH: Normal mood and affect. Course Course Emergency Course: Patient resting comfortably. His acute kidney injury as well as UTI. Ceftriaxone ordered. Will plan admission for observation. Vital Signs Vital signs: Vital Signs Temperature 98.3 F 04/18/25 14:02 Pulse Rate 100 04/18/25 14:02 Respiratory Rate 20 04/18/25 14:02 Blood Pressure 103/83 04/18/25 14:02 Pulse Oximetry 96 04/18/25 14:02 Oxygen Delivery Room Air 04/18/25 14:02 Temperature 98.3 F 04/18/25 14:02 Pulse Rate 106 H 04/18/25 19:25 Respiratory Rate 18 04/18/25 19:25 Blood Pressure 123/72 04/18/25 19:25 Pulse Oximetry 93 04/18/25 19:25 Oxygen Delivery Room Air 04/18/25 14:02 MDM - Weakness Lab Data 04/18/25 16:13 04/18/25 16:13 Labs: Lab Results 04/18/25 Range/Units 16:13 WBC 14.9 H (4.5-10.0) K/mm3 RBC 4.16 L (4.2-5.4) M/mm3 Hgb 11.8 L (12.0-15.0) g/dL Hct 37.3 (37.0-47.0) % MCV 89.7 (80-100) fl MCH 28.4 (26-34) pg MCHC 31.6 L (32-36) g/dl RDW 14.7 H (11.5-14.5) % Plt Count 280 (150-375) k/mm3 MPV 10.0 (7.4-10.4) fl Immature Gran % (Auto) 0.3 (0-0.5) % Neut % (Auto) 67.4 (45.5-73.1) % Lymph % (Auto) 20.8 (18.3-44.2) % [place] % (Auto) 7.4 (2.6-8.5) % Eos % (Auto) 3.7 (0-4.4) % Baso % (Auto) 0.4 (0.2-1.2) % Lymph # (Auto) 3.09 (0.9-3.2) K/mm3 [place] # (Auto) 1.1 H (0.1-0.6) K/mm3 Eos # (Auto) 0.6 H (0-0.3) K/mm3 Baso # (Auto) 0.1 (0.0-0.1) K/mm3 Abs Immat Gran (auto) 0.04 H (0.00-0.031) K/mm3 Absolute Neuts (auto) 10.0 H (1.3-6.7) K/mm3 Absolute Nucleated RBC 0.000 (0.0-0.012) K/mm3 Nucleated RBC % 0.0 (0.0-0.2) % Sodium 133 L (137-145) mmol/L Potassium 4.6 (3.4-5.0) mmol/L Chloride 94 L (98-107) mmol/L Carbon Dioxide 31 H (22-30) mmol/L Anion Gap 8 (4-12) mmol/L BUN 37 H D (7-17) mg/dL Creatinine 1.38 H (0.7-1.0) mg/dL Estim Creat Clear Calc 29 ml/min Estimated GFR 37 L (59 - ) Glucose 113 H (65-110) mg/dL Calcium 9.4 (8.4-10.2) mg/dL Total Bilirubin 0.5 (0.2-1.3) mg/dL AST 21 (14-36) U/L ALT 13 (6-35) U/L Alkaline Phosphatase 64 (38-126) U/L Total Protein 7.4 (6.3-8.2) g/dL Albumin 3.9 (3.5-5.1) g/dL Urine Color Yellow (Yellow) Urine Appearance Cloudy H (Clear) Urine pH 6.5 (5.0-9.0) Ur Specific [place] 1.013 (1.001-1.035) Urine Protein Negative (Negative) mg/dL Urine Glucose (UA) 2+ H (Negative) mg/dL Urine Ketones Negative (Negative) mg/dL Ur Blood (Man) Negative (Negative) Urine Nitrate Negative (Negative) Urine Bilirubin Negative (Negative) Urine Urobilinogen 0.2 (<2.0) mg/dL Leukocyte Esterase Rfl 3+ H (Negative) MI/UL Urine RBC 21-50 H (0-2) /hpf Urine WBC >100 H (0-3) /hpf Ur Squamous Epith Cells None seen (Few) /hpf Urine Bacteria None seen /hpf Urine Casts 0-2 Urine Yeast (Budding) Present H (None) /hpf Influenza A (RT-PCR) Negative (Negative) Influenza B (RT-PCR) Negative (Negative) RSV (RT-PCR) Negative (Negative) SARS-CoV-2 RNA (RT-PCR) Negative (Negative) Discharge Plan Discharge Clinical Impression: RENEA (acute kidney injury), Acute UTI Patient Disposition: Still a Patient Condition: Stable
--- NOTE | 2025-04-18 17:48 | P.HP_ITS ---
H&P: HPI History of Present Illness Date/Time: 04/18/25 17:48 Chief Complaint: Generalized Weakness Narrative: 75 y/o F with PMH of type 2 diabetes, NSTEMI, osteoarthritis, fibromyalgia, generalized anxiety disorder, and hypertension presents here with weakness. The patient presents here from home via EMS for further evaluation of generalized weakness. She reports onset approximately 1-2 weeks ago. It is accompanied by a dysuria and poor appetite. She denies fever, chills, body aches, hematuria, abdominal pain. Of note, the patient was recently admitted from 03/26/25 - 04/03/25. She was seen for weakness, sepsis, colitis, cellulitis, RENEA, and UTI. She was discharged on Levaquin, recommended to complete a outpatient colonoscopy, and to follow-up with urology (planned for 04/22) due to concerns for chronic bladder outlet obstruction/urinary retention. She was discharged with a Jara. Initial VS at presentation: 98.3? F, HR 100, RR 20, 103/83, and 96% on RA. ED workup showed: WBC 14.9 (14.8 on 04/03), sodium 133, creatinine 1.38 and GFR 37 (0.87 and GFR >60 on 04/03), glucose 113, and UA suspicious for UTI. Viral PCR negative. CXR showed no focal infiltrate or effusion. Review of Systems Review of Systems: All systems reviewed & are unremarkable except as noted in HPI and below PMFSH Past Medical History Medical History Eczema Osteoarthritis Venous insufficiency (chronic) (peripheral) DM2 (diabetes mellitus, type 2) Non-ST elevated myocardial infarction (non-STEMI) Osteoarthritis of hands, bilateral Bilateral primary osteoarthritis of knee Essential (primary) hypertension Fibromyalgia Generalized anxiety disorder Arthralgia of multiple joints Surgical History Surgical History History of tubal ligation (~1989) Family History Family History Grandparent Acute myocardial infarction Cerebrovascular accident Heart disease Mother Colon polyp Diabetes mellitus Pancreatic adenocarcinoma Other Depression Hypertension Neuralgia of both lower extremities Social History Social History Social History: Surrogate medical decision maker: Shravan Ramsay, spouse. Code status: Full code. Smoking status: Former smoker Second hand tobacco smoke exposure: No Additional smoking assessment comments: current every day marijuana pipe smoker Alcohol intake: never Substance use: never Substance use type: does not use Last use: 03/26/25 Do You Feel Safe in your Home?: Yes Lack of Transportation: No Lack of Food: Never True Current Housing: I Have Housing Concerned About Future Housing: No Difficulty Paying Gas/Electric Bills: No Difficulty Paying for Meds: No Currently Unemployed: No Education: Associate Degree Difficulty w/ Childcare or Family Care: No Living arrangements: with family Occupation/Education: retired Spiritual care concerns: No Agree to blood products: Yes Meds Home Medications and Allergies Home Medications ?Medication ?Instructions ?Recorded ?Confirmed ?Type lancet with blood glucose test #300 ea 01/29/23 04/18/25 Rx strips and pen needles combo pack blood sugar diagnostic (OneTouch #300 ea 05/20/23 04/18/25 Rx Verio test strips) flash glucose scanning reader #1 ea 05/20/23 04/18/25 Rx (FreeStyle Yulia 2 [place]) ammonium lactate 12 % lotion 1 applic topical DAILY #225 grams 10/26/24 04/18/25 Rx (AmLactin) clonidine HCl 0.3 mg tablet See Rx Instructions .Route 12/27/24 04/18/25 Rx .COMPLEX #60 tabs spironolactone 25 mg tablet 25 mg PO DAILY #30 tabs 01/18/25 04/18/25 Rx buspirone 10 mg tablet 10 mg PO BID #60 tabs 02/06/25 04/18/25 Rx semaglutide 7 mg tablet (Rybelsus) 7 mg PO DAILY #30 tabs 02/15/25 04/18/25 Rx dapagliflozin propanediol 10 mg 10 mg PO DAILY #90 tabs 02/17/25 04/18/25 Rx tablet (Farxiga) gabapentin 300 mg capsule 300 mg PO DAILY #90 caps 03/03/25 04/18/25 Rx hydrocodone 5 mg-acetaminophen 325 1 tablet PO Q6H PRN pain #120 tabs 03/03/25 04/18/25 Rx mg tablet pioglitazone 15 mg tablet 15 mg PO DAILY #90 tabs 03/03/25 04/18/25 Rx metformin 500 mg tablet,extended See Rx Instructions .Route 03/07/25 04/18/25 Rx release 24 hr .COMPLEX #180 tabs baclofen 10 mg tablet 10 mg PO TID PRN muscle spasm 03/26/25 04/18/25 History metoprolol tartrate 100 mg tablet See Rx Instructions .Route 03/29/25 04/18/25 Rx .COMPLEX #180 tabs pantoprazole 40 mg tablet,delayed See Rx Instructions .Route 03/29/25 04/18/25 Rx release .COMPLEX #60 tabs atorvastatin 20 mg tablet See Rx Instructions .Route 04/07/25 04/18/25 Rx .COMPLEX #90 tabs duloxetine 60 mg capsule,delayed See Rx Instructions .Route 04/07/25 04/18/25 Rx release .COMPLEX #90 ea flash glucose sensor (FreeStyle #2 ea 04/12/25 04/18/25 Rx Yulia 2 Sensor kit) Allergies Allergy/AdvReac Type Severity Reaction Status Date / Time amoxicillin (From Augmentin) Allergy Unknown Verified 04/18/25 14:08 clavulanic acid (From Allergy Unknown Verified 04/18/25 14:08 Augmentin) Vital Signs Vital Signs - 24 hr 04/18/25 14:02 04/18/25 17:15 Temperature 98.3 F Pulse Rate 100 78 Respiratory Rate 20 16 Blood Pressure 103/83 117/72 Pulse Oximetry 96 98 Oxygen Delivery Room Air Exam Const: General: comfortable and no acute distress Other: , female, chronically ill-appearing, nontoxic appearance HENMT: Face/Nose/Sinus: Normal nares present Mouth: Yes moist mucous membranes Eyes: General: appearance normal, both eyes and all related structures Sclera: sclerae normal Pupils: Equal, round and reactive pupils present EOM: EOMs intact bilaterally Resp: Effort & Inspection: normal respiratory effort Auscultation: clear to auscultation bilaterally Cardio: Rate: regular rate Rhythm: regular rhythm Other: S1-S2 present without murmur, rub, ectopy GI: Other: Abdomen soft, nondistended, nontender. Normoactive bowel sounds in all quadrants. Skin: Other: erythema to bilateral lower extremities, dimpling from wraps to BLE. Small less than 1 cm open wound to left anterior burton with no signs of infection. Neuro: Speech: normal speech Motor exam (neuro): 5/5 motor strength present throughout Sensory Exam: normal sensation Other: A&O x4 Extrem: Other: Dimpling secondary to Navdeep wraps, mild tenderness. Psych: Mental Status: mental status grossly normal Affect: normal affect Other: Good insight and judgment, pleasant H&P: Results Labs Labs: Short CBC 04/18/25 Range/Units 16:13 WBC 14.9 H (4.5-10.0) K/mm3 Hgb 11.8 L (12.0-15.0) g/dL Hct 37.3 (37.0-47.0) % Plt Count 280 (150-375) k/mm3 BMP 04/18/25 16:13 Sodium 133 L Potassium 4.6 Chloride 94 L Carbon Dioxide 31 H BUN 37 H D Creatinine 1.38 H Glucose 113 H Calcium 9.4 Liver Function 04/18/25 Range/Units 16:13 Total Bilirubin 0.5 (0.2-1.3) mg/dL AST 21 (14-36) U/L ALT 13 (6-35) U/L Alkaline Phosphatase 64 (38-126) U/L Albumin 3.9 (3.5-5.1) g/dL Urine 04/18/25 Range/Units 16:13 Urine Color Yellow (Yellow) Urine Appearance Cloudy H (Clear) Urine pH 6.5 (5.0-9.0) Ur Specific [place] 1.013 (1.001-1.035) Urine Protein Negative (Negative) mg/dL Urine Glucose (UA) 2+ H (Negative) mg/dL Assessment and Plan Assessment and plan (1) RENEA (acute kidney injury): Code(s): N17.9 - Acute kidney failure, unspecified Status: Resolved Assessment and Plan: - creatinine 1.38, BUN 37, GFR 37 upon admission on 04/18 - baseline creatinine: 0.7 - 0.9 - hx of recent RENEA that responded well to fluids and was suspected secondary to dehydration - IV fluids: 1L bolus -> 125 mL/hour - hold Farxiga and spironolactone, resume when appropriate - trend renal function - trend electrolytes, correct as needed - consider further workup and nephrology consultation if no improvement in the next 24 hours (2) UTI (urinary tract infection): Code(s): N39.0 - Urinary tract infection, site not specified Status: Acute Assessment and Plan: - UA: Cloudy, 2+ glucose, 3+ leuk esterase, 21-50 RBC, greater than 100 WBC, no epithelial cells or bacteria, yeast present - UC pending, obtained on 04/18 - previous micro reviewed and no resistance is noted - started on Ceftriaxone on 04/18 - IV fluids (3) Urinary retention: Code(s): R33.9 - Retention of urine, unspecified Status: Acute Assessment and Plan: - Jara placed during previous admission from 03/26/25 - 04/03/25 - outpatient follow-up with Urology on 04/22 - exchanged Jara today, 04/18, due to concerns for UTI (4) DM2 (diabetes mellitus, type 2): Qualifiers: Diabetes mellitus complication status: with hyperglycemia Diabetes mellitus senior care insulin use: without long term care social worker use Qualified Code(s): E11.65 - Type 2 diabetes mellitus with hyperglycemia Code(s): E11.9 - Type 2 diabetes mellitus without complications Status: Chronic Assessment and Plan: - hypoglycemia protocol - POC blood glucose ACHS - home medication: Hold Farxiga and metformin. Continue semaglutide p.o.. - correct regimen ordered - low dose TIDWM, based off BMI - A1C 7.2% in 2023 (5) Essential (primary) hypertension: Code(s): I10 - Essential (primary) hypertension Status: Chronic Assessment and Plan: - chronic, currently 138/85 - continue home medications: Metoprolol, clonidine. Hold spironolactone. - monitor Plan Erythema noted to bilateral lower extremities, however has significant dimpling in place secondary to Navdeep wraps. Difficult to discern if here with EMS secondary to tightness of Navdeep wraps verses cellulitis. Will need reassessment. Diet: Diabetic GI Prophylaxis: N/a DVT Prophylaxis: SCDs IV fluids: 1L bolus -> 125 mL/hour Lines/Tubes: Peripheral IV, Jara catheter Code Status: Full code Quality VTE Prophylaxis VTE prophylaxis: mechanical ordered Hospitalist [facility] Advance Care Plan I have confirmed that the patient's Advanced Care Plan is present, code status is documented, or surrogate decision maker is listed in patient medical record.: Yes Medication Reconciliation I have utilized all available resources to obtain, update and review the patients current medications (includes all prescriptions, OTC, herbals, cannabis, and nutritional supplements).: Yes
[2025-04-18] MEDS: cefTRIAXone 1 GM in SODIUM CHLORIDE 0.9% IV 50 ML 100 ML IVPB (17:55)
[2025-04-18] MEDS: SODIUM CHLORIDE 0.9% IV 1,000 ML 125 ML IV CONT (20:33)
--- NOTE | 2025-04-18 22:07 | ADMGEN ---
This patient, Aggie Donald, was admitted to 3 Med Surg Room 321-01. Patient/family oriented to hospital policies and general routines including ID bracelet, bed and alarms, visiting hours, pain management, procedures, bathroom and other care routines, personal items, smoking policy, room service/diet, and visiting hours. Information on how to activate the Rapid Response Team has been discussed. Patient/Family are encouraged to report perceived risks to care and to ask questions if they do not understand what they are told or what they should do.
--- NOTE | 2025-04-18 23:43 | PC.NURSE ---
Left lower buttocks Left lower buttocks
[2025-04-19] VITALS (8 sets, daily range): BP systolic 98–140; BP diastolic 55–82; PULSE 87–107; RESP 12–20; TEMP 36.1–36.6; O2SAT 93–97; BMI 22.7
[2025-04-19] MEDS: METOPROLOL TARTRATE 50 MG TAB 100 MG PO ×3 (00:34→22:08)
[2025-04-19] MEDS: HYDROcodone/acetaminophen (*CRX) 5-325 MG TABLET 1 TAB PO ×4 (00:34→22:15)
[2025-04-19] MEDS: SODIUM CHLORIDE 0.9% IV 1,000 ML 125 ML IV CONT ×3 (04:37→23:10)
[2025-04-19 05:56] LABS: Hematocrit 36.0 % (37.0-47.0); Hemoglobin 11.4 g/dL (12.0-15.0); Immature Granulocyte Percent A 0.3 % (0-0.5); Lymphocytes Absolute Auto 3.85 K/mm3 (0.9-3.2); Mean Corpuscular HGB Conc 31.7 g/dl (32-36); Mean Corpuscular Hemoglobin 29.3 pg (26-34); Mean Corpuscular Volume 92.5 fl (80-100); Nucleated Red Blood Cells Absolute Auto 0.000 K/mm3 (0.0-0.012); Nucleated Red Blood Cells Perc 0.0 % (0.0-0.2); Platelet Count Result 263 k/mm3 (150-375); Red Blood Count 3.89 M/mm3 (4.2-5.4); White Blood Count 11.8 K/mm3 (4.5-10.0)
[2025-04-19 06:27] LABS: Anion Gap 9 mmol/L (4-12); Blood Urea Nitrogen 30 mg/dL (7-17); Calcium 8.6 mg/dL (8.4-10.2); Carbon Dioxide 31 mmol/L (22-30); Chloride 96 mmol/L (98-107); Estimated CRCL calculation 34 ml/min; Estimated Glomerular Filt Rate 45; Glucose 89 mg/dL (65-110); Potassium 3.7 mmol/L (3.4-5.0); Sodium 136 mmol/L (137-145)
[2025-04-19] MEDS: PANTOPRAZOLE 40 MG TABLET PO (09:50)
[2025-04-19] MEDS: PIOGLITAZONE HCL 15 MG TAB PO (09:50)
[2025-04-19] MEDS: GABAPENTIN 300 MG CAPSULE PO (09:50)
[2025-04-19] MEDS: ATORVASTATIN 20 MG TABLET PO (09:50)
[2025-04-19] MEDS: DULoxetine HCL 60 MG CAPSULE.DR PO (09:50)
[2025-04-19] MEDS: LACTIC ACID 12% LOTION 225 BTL 1 APPLIC TOPICAL (09:51)
--- NOTE | 2025-04-19 12:17 | P.PNIM_ITS ---
Progress Note: A&P Assessment and Plan (1) RENEA (acute kidney injury): Code(s): N17.9 - Acute kidney failure, unspecified Status: Resolved Assessment and Plan: - creatinine 1.38, BUN 37, GFR 37 upon admission on 04/18 - baseline creatinine: 0.7 - 0.9 - hx of recent RENEA that responded well to fluids and was suspected secondary to dehydration - IV fluids: 1L bolus -> 125 mL/hour - hold Farxiga and spironolactone, resume when appropriate - trend renal function - trend electrolytes, correct as needed - consider further workup and nephrology consultation if no improvement in the next 24 hours (2) UTI (urinary tract infection): Code(s): N39.0 - Urinary tract infection, site not specified Status: Acute Assessment and Plan: - UA: Cloudy, 2+ glucose, 3+ leuk esterase, 21-50 RBC, greater than 100 WBC, no epithelial cells or bacteria, yeast present - UC pending, obtained on 04/18 - previous micro reviewed and no resistance is noted - started on Ceftriaxone on 04/18 - IV fluids (3) Urinary retention: Code(s): R33.9 - Retention of urine, unspecified Status: Acute Assessment and Plan: - Jara placed during previous admission from 03/26/25 - 04/03/25 - outpatient follow-up with Urology on 04/22 - exchanged Jara today, 04/18, due to concerns for UTI (4) DM2 (diabetes mellitus, type 2): Qualifiers: Diabetes mellitus half-way insulin use: without half-way use Diabetes mellitus complication status: with hyperglycemia Qualified Code(s): E11.65 - Type 2 diabetes mellitus with hyperglycemia Code(s): E11.9 - Type 2 diabetes mellitus without complications Status: Chronic Assessment and Plan: - hypoglycemia protocol - POC blood glucose ACHS - home medication: Hold Farxiga and metformin. Continue semaglutide p.o.. - correct regimen ordered - low dose TIDWM, based off BMI - A1C 7.2% in 2023 (5) Essential (primary) hypertension: Code(s): I10 - Essential (primary) hypertension Status: Chronic Assessment and Plan: - chronic, currently 138/85 - continue home medications: Metoprolol, clonidine. Hold spironolactone. - monitor Plan Erythema noted to bilateral lower extremities, however has significant dimpling in place secondary to Navdeep wraps. Difficult to discern if here with EMS secondary to tightness of Navdeep wraps verses cellulitis. Will need reassessment. Diet: Diabetic GI Prophylaxis: N/a DVT Prophylaxis: SCDs IV fluids: 1L bolus -> 125 mL/hour Lines/Tubes: Peripheral IV, Jara catheter Code Status: Full code Subjective Date/time seen: 04/19/25 12:17 Interval history: Patient denies any urinary complaint. Patient denies drinking water at home. Review of Systems Review of Systems: All systems reviewed & are unremarkable except as noted in HPI and below Exam Const: General: comfortable and no acute distress Other: , female, chronically ill-appearing, nontoxic appearance HENMT: Face/Nose/Sinus: Normal nares present Mouth: Yes moist mucous membranes Eyes: General: appearance normal, both eyes and all related structures Sclera: sclerae normal Pupils: Equal, round and reactive pupils present EOM: EOMs intact bilaterally Resp: Effort & Inspection: normal respiratory effort Auscultation: clear to auscultation bilaterally Cardio: Rate: regular rate Rhythm: regular rhythm Other: S1-S2 present without murmur, rub, ectopy GI: Other: Abdomen soft, nondistended, nontender. Normoactive bowel sounds in all quadrants. Skin: Other: erythema to bilateral lower extremities, dimpling from wraps to BLE. Small l ess than 1 cm open wound to left anterior burton with no signs of infection. Neuro: Cranial nerves: Yes Equal, round and reactive pupils present Speech: normal speech Motor exam (neuro): 5/5 motor strength present throughout Sensory Exam: normal sensation Other: A&O x4 Extrem: Other: Dimpling secondary to Navdeep wraps, mild tenderness. Psych: Mental Status: mental status grossly normal Affect: normal affect Other: Good insight and judgment, pleasant Objective Data Vital Signs Vital Signs: Vital Signs - 24 hr 04/18/25 14:02 04/18/25 17:15 04/18/25 17:56 Temperature 98.3 F Pulse Rate 100 78 99 Respiratory Rate 20 16 17 Blood Pressure 103/83 117/72 138/85 Pulse Oximetry 96 98 95 Oxygen Delivery Room Air 04/18/25 19:25 04/18/25 20:18 04/18/25 22:00 Temperature 98.4 F 97.8 F Pulse Rate 106 H 106 H 106 H Respiratory Rate 18 18 18 Blood Pressure 123/72 123/72 119/78 Pulse Oximetry 93 93 95 Oxygen Delivery 04/18/25 23:50 04/19/25 00:22 04/19/25 00:28 Temperature 97.9 F Pulse Rate 105 H 107 H Respiratory Rate 18 20 Blood Pressure 98/55 L 101/59 L Pulse Oximetry 96 96 Oxygen Delivery Room Air 04/19/25 00:34 04/19/25 06:00 04/19/25 09:50 Temperature 97.0 F L Pulse Rate 107 H 97 97 Respiratory Rate 18 Blood Pressure 122/72 Pulse Oximetry 95 Oxygen Delivery 04/19/25 09:55 Temperature Pulse Rate Respiratory Rate Blood Pressure Pulse Oximetry Oxygen Delivery Room Air Intake/Output Intake/Output: Intake & Output 04/16/25 04/17/25 04/18/25 04/19/25 23:59 23:59 23:59 23:59 Intake Total 1050 1240 Output Total 2850 Balance 1050 -1610 Meds/Results Medications: Active Medications Generic Name Dose Route Start Last Admin Trade Name Freq PRN Reason Stop Dose Admin Acetaminophen 650 mg 04/18/25 17:46 Acetaminophen 325 Mg Tablet PO Q4H PRN Mild Pain (1-3) or Fever Hydrocodone Bitart/Acetaminophen 1 tab 04/18/25 17:46 04/19/25 10:01 Hydrocodone/Acetaminophen (*Crx) 5-325 Mg Tablet PO 1 tab Q4H PRN Administration Pain Rated 4-6 Hydrocodone Bitart/Acetaminophen 1 tab 04/18/25 22:47 Hydrocodone/Acetaminophen (*Crx) 5-325 Mg Tablet PO Q6H PRN PAIN RATED 4-6 Atorvastatin Calcium 20 mg 04/19/25 09:00 04/19/25 09:50 Atorvastatin 20 Mg Tablet PO 20 mg DAILY USAMA Administration Baclofen 10 mg 04/18/25 22:47 Baclofen 10 Mg Tablet PO TID PRN muscle spasm Buspirone HCl 10 mg 04/18/25 22:55 04/19/25 09:50 Buspirone Hcl 10 Mg Tablet PO 10 mg BID USAMA Administration Clonidine HCl 0.3 mg 04/18/25 22:50 04/19/25 09:50 Clonidine Hcl 0.1 Mg Tablet PO 0.3 mg Q12HR [facility]AMA Administration Dextrose 12.5 gm 04/18/25 17:57 Dextrose 50% 25 Gm/50 Ml Syringe IV PUSH PRN PRN Hypoglycemia Protocol Duloxetine HCl 60 mg 04/19/25 09:00 04/19/25 09:50 Duloxetine Hcl 60 Mg Capsule.Dr PO 60 mg DAILY USAMA Administration Gabapentin 300 mg 04/19/25 09:00 04/19/25 09:50 Gabapentin 300 Mg Capsule PO 300 mg DAILY USAMA Administration Glucagon 1 mg 04/18/25 17:57 Glucagon For Inj 1 Mg Vial IM PRN PRN Hypoglycemia Protocol Glucose 15 gm 04/18/25 17:57 Glucose Oral Gel 15 Gm Of Glucse In 37.5 Gm Tube PO PRN PRN Hypoglycemia Protocol Ceftriaxone Sodium 1 gm/ 50 mls @ 100 mls/hr 04/19/25 18:00 Sodium Chloride IVPB Q24H USAMA Sodium Chloride 1,000 mls @ 125 mls/hr 04/18/25 17:50 04/19/25 04:37 Normal Saline Iv IV CONT 125 mls/hr .Q8H USAMA Administration Dextrose 1,000 mls @ 100 mls/hr 04/18/25 17:57 Dextrose 5% 1,000 Ml IVPB PRN PRN Hypoglycemia Protocol Insulin Aspart 2 - 5 units 04/19/25 08:00 04/19/25 11:54 Insulin Aspart (*Bkc) 100 Units/Ml SUB-Q Not Given TIDWM [facility] Protocol Lactic Acid 1 applic 04/19/25 09:00 04/19/25 09:51 Lactic Acid 12% Lotion 225 Btl TOPICAL 1 applic DAILY USAMA Administration Metoprolol Tartrate 100 mg 04/18/25 22:50 04/19/25 09:50 Metoprolol Tartrate 50 Mg Tab PO 100 mg Q12HR USAMA Administration Miscellaneous Information 1 each 04/18/25 00:01 Semaglutide [Rybelsus] 7 Mg Tablet Is Nonform, Can Pt Bring From Home? XX 05/18/25 00:00 CLARIFY USAMA Non-Formulary Medication 7 mg 04/19/25 09:00 Semaglutide [Rybelsus] PO 05/19/25 08:59 DAILY [facility]AMA Ondansetron HCl 4 mg 04/18/25 17:46 Ondansetron Inj 4 Mg/2 Ml Vial IV PUSH Q4H PRN Nausea Pantoprazole Sodium 40 mg 04/19/25 09:00 04/19/25 09:50 Pantoprazole 40 Mg Tablet PO 40 mg DAILY USAMA Administration Pioglitazone HCl 15 mg 04/19/25 09:00 04/19/25 09:50 Pioglitazone Hcl 15 Mg Tab PO 15 mg DAILY USAMA Administration Radiology Results: ITS Impressions Chest X-Ray 04/18/25 16:09 IMPRESSION: No focal infiltrate or effusion. Labs Labs: Laboratory Results - last 24 hr 04/18/25 04/18/25 04/19/25 16:13 20:50 05:23 WBC 14.9 H 11.8 H RBC 4.16 L 3.89 L Hgb 11.8 L 11.4 L Hct 37.3 36.0 L MCV 89.7 92.5 MCH 28.4 29.3 MCHC 31.6 L 31.7 L RDW 14.7 H 14.6 H Plt Count 280 263 MPV 10.0 10.2 Immature Gran % (Auto) 0.3 0.3 Neut % (Auto) 67.4 53.8 Lymph % (Auto) 20.8 32.6 [place] % (Auto) 7.4 6.8 Eos % (Auto) 3.7 5.9 H Baso % (Auto) 0.4 0.6 Lymph # (Auto) 3.09 3.85 H [place] # (Auto) 1.1 H 0.8 H Eos # (Auto) 0.6 H 0.7 H Baso # (Auto) 0.1 0.1 Abs Immat Gran (auto) 0.04 H 0.03 Absolute Neuts (auto) 10.0 H 6.4 Absolute Nucleated RBC 0.000 0.000 Nucleated RBC % 0.0 0.0 Sodium 133 L 136 L Potassium 4.6 3.7 Chloride 94 L 96 L Carbon Dioxide 31 H 31 H Anion Gap 8 9 BUN 37 H D 30 H Creatinine 1.38 H 1.17 H Estim Creat Clear Calc 29 34 Estimated GFR 37 L 45 L Glucose 113 H 89 POC Capillary Glucose 94 Calcium 9.4 8.6 Total Bilirubin 0.5 AST 21 ALT 13 Alkaline Phosphatase 64 Total Protein 7.4 Albumin 3.9 Urine Color Yellow Urine Appearance Cloudy H Urine pH 6.5 Ur Specific [place] 1.013 Urine Protein Negative Urine Glucose (UA) 2+ H Urine Ketones Negative Ur Blood (Man) Negative Urine Nitrate Negative Urine Bilirubin Negative Urine Urobilinogen 0.2 Leukocyte Esterase Rfl 3+ H Urine RBC 21-50 H Urine WBC >100 H Ur Squamous Epith Cells None seen Urine Bacteria None seen Urine Casts 0-2 Urine Yeast (Budding) Present H Influenza A (RT-PCR) Negative Influenza B (RT-PCR) Negative RSV (RT-PCR) Negative SARS-CoV-2 RNA (RT-PCR) Negative 04/19/25 04/19/25 07:38 11:43 WBC RBC Hgb Hct MCV MCH MCHC RDW Plt Count MPV Immature Gran % (Auto) Neut % (Auto) Lymph % (Auto) [place] % (Auto) Eos % (Auto) Baso % (Auto) Lymph # (Auto) [place] # (Auto) Eos # (Auto) Baso # (Auto) Abs Immat Gran (auto) Absolute Neuts (auto) Absolute Nucleated RBC Nucleated RBC % Sodium Potassium Chloride Carbon Dioxide Anion Gap BUN Creatinine Estim Creat Clear Calc Estimated GFR Glucose POC Capillary Glucose 94 116 H Calcium Total Bilirubin AST ALT Alkaline Phosphatase Total Protein Albumin Urine Color Urine Appearance Urine pH Ur Specific [place] Urine Protein Urine Glucose (UA) Urine Ketones Ur Blood (Man) Urine Nitrate Urine Bilirubin Urine Urobilinogen Leukocyte Esterase Rfl Urine RBC Urine WBC Ur Squamous Epith Cells Urine Bacteria Urine Casts Urine Yeast (Budding) Influenza A (RT-PCR) Influenza B (RT-PCR) RSV (RT-PCR) SARS-CoV-2 RNA (RT-PCR) Quality VTE Prophylaxis VTE prophylaxis: mechanical ordered Hospitalist MIPS Advance Care Plan I have confirmed that the patient's Advanced Care Plan is present, code status is documented, or surrogate decision maker is listed in patient medical record.: Yes Medication Reconciliation I have utilized all available resources to obtain, update and review the patients current medications (includes all prescriptions, OTC, herbals, cannabis, and nutritional supplements).: Yes
[2025-04-19] MEDS: cefTRIAXone 1 GM in SODIUM CHLORIDE 0.9% IV 50 ML 100 ML IVPB (17:29)
[2025-04-19] MEDS: BACLOFEN 10 MG TABLET PO (22:14)
[2025-04-20] VITALS (7 sets, daily range): BP systolic 104–148; BP diastolic 77–90; PULSE 65–92; RESP 12–20; TEMP 35.8–36.8; O2SAT 95–100
[2025-04-20] MEDS: HYDROcodone/acetaminophen (*CRX) 5-325 MG TABLET 1 TAB PO ×2 (02:35→17:00)
[2025-04-20 06:16] LABS: Hematocrit 36.8 % (37.0-47.0); Hemoglobin 11.3 g/dL (12.0-15.0); Mean Corpuscular HGB Conc 30.7 g/dl (32-36); Mean Corpuscular Hemoglobin 29.4 pg (26-34); Mean Corpuscular Volume 95.6 fl (80-100); Platelet Count Result 270 k/mm3 (150-375); Red Blood Count 3.85 M/mm3 (4.2-5.4); White Blood Count 10.2 K/mm3 (4.5-10.0)
[2025-04-20 07:04] LABS: Alanine Aminotransferase 12 U/L (6-35); Albumin Level 3.2 g/dL (3.5-5.1); Alkaline Phosphatase 53 U/L (38-126); Anion Gap 8 mmol/L (4-12); Aspartate Amino Transferase 17 U/L (14-36); Bilirubin,Total 0.2 mg/dL (0.2-1.3); Blood Urea Nitrogen 20 mg/dL (7-17); Calcium 8.7 mg/dL (8.4-10.2); Carbon Dioxide 28 mmol/L (22-30); Chloride 101 mmol/L (98-107); Estimated CRCL calculation 40 ml/min; Estimated Glomerular Filt Rate 54; Glucose 113 mg/dL (65-110); Potassium 4.0 mmol/L (3.4-5.0); Sodium 137 mmol/L (137-145); Total Protein 6.2 g/dL (6.3-8.2)
[2025-04-20] MEDS: METOPROLOL TARTRATE 50 MG TAB 100 MG PO ×2 (08:37→20:36)
[2025-04-20] MEDS: GABAPENTIN 300 MG CAPSULE PO (08:37)
[2025-04-20] MEDS: PANTOPRAZOLE 40 MG TABLET PO (08:38)
[2025-04-20] MEDS: DULoxetine HCL 60 MG CAPSULE.DR PO (08:38)
[2025-04-20] MEDS: ATORVASTATIN 20 MG TABLET PO (08:38)
[2025-04-20] MEDS: PIOGLITAZONE HCL 15 MG TAB PO (08:38)
[2025-04-20] MEDS: LACTIC ACID 12% LOTION 225 BTL 1 APPLIC TOPICAL (08:39)
[2025-04-20] MEDS: SODIUM CHLORIDE 0.9% IV 1,000 ML 125 ML IV CONT (08:45)
--- NOTE | 2025-04-20 10:34 | P.CDI_ITS ---
CDI Query Clarification Request 1) Clarification request - UTI has been documented, chronic indwelling starr catheter documented. Please clarify if UTI is: * due to/associated with chronic indwelling starr catheter * not due to/associated with chronic indwelling starr catheter * unable to determine 2) Please clarify if cellulitis has been ruled in or ruled out. 3) The wound care nurse has documented a stage II pressure ulcer to left ischium. Please clarify if this should be documented in the patients problem list. The medical chart reflects the following: Patient is a 75-year-old female who presents ER with reports of progressive weakness over last 1-2 weeks. She has started having burning urination. She does have a catheter. No fevers or chills. No chest pain or chest pressure. No vomiting but poor oral intake of food. The patient presents here from home via EMS for further evaluation of generalized weakness. She reports onset approximately 1-2 weeks ago. It is accompanied by a dysuria and poor appetite. She denies fever, chills, body aches, hematuria, abdominal pain. Of note, the patient was recently admitted from 03/26/25 - 04/03/25. She was seen for weakness, sepsis, colitis, cellulitis, RENEA, and UTI. She was discharged on Levaquin, recommended to complete a outpatient colonoscopy, and to follow-up with urology (planned for 04/22) due to concerns for chronic bladder outlet obstruction/urinary retention. She was discharged with a Starr. 2) UTI (urinary tract infection): Code(s): N39.0 - Urinary tract infection, site not specified Status: Acute Assessment and Plan: - UA: Cloudy, 2+ glucose, 3+ leuk esterase, 21-50 RBC, greater than 100 WBC, no epithelial cells or bacteria, yeast present - UC pending, obtained on 04/18 - previous micro reviewed and no resistance is noted - started on Ceftriaxone on 04/18 - IV fluids Plan Erythema noted to bilateral lower extremities, however has significant dimpling in place secondary to Navdeep wraps. Difficult to discern if here with EMS secondary to tightness of Navdeep wraps verses cellulitis. Will need reassessment. IV ceftriaxone <Marietta Espino RN - Last Filed: 04/20/25 10:51> 1) Clarification request - UTI has been documented, chronic indwelling starr catheter documented. Please clarify if UTI is: * due to/associated with chronic indwelling starr catheter * not due to/associated with chronic indwelling starr catheter * unable to determine 2) Please clarify if cellulitis has been ruled in or ruled out. 3) The wound care nurse has documented a stage II pressure ulcer to left ischium. Please clarify if this should be documented in the patients problem list. The medical chart reflects the following: Patient is a 75-year-old female who presents ER with reports of progressive weakness over last 1-2 weeks. She has started having burning urination. She does have a catheter. No fevers or chills. No chest pain or chest pressure. No vomiting but poor oral intake of food. The patient presents here from home via EMS for further evaluation of generalized weakness. She reports onset approximately 1-2 weeks ago. It is accompanied by a dysuria and poor appetite. She denies fever, chills, body aches, hematuria, abdominal pain. Of note, the patient was recently admitted from 03/26/25 - 04/03/25. She was seen for weakness, sepsis, colitis, cellulitis, RENEA, and UTI. She was discharged on Levaquin, recommended to complete a outpatient colonoscopy, and to follow-up with urology (planned for 04/22) due to concerns for chronic bladder outlet obstruction/urinary retention. She was discharged with a Starr. 2) UTI (urinary tract infection): Code(s): N39.0 - Urinary tract infection, site not specified Status: Acute Assessment and Plan: - UA: Cloudy, 2+ glucose, 3+ leuk esterase, 21-50 RBC, greater than 100 WBC, no epithelial cells or bacteria, yeast present - UC pending, obtained on 04/18 - previous micro reviewed and no resistance is noted - started on Ceftriaxone on 04/18 - IV fluids Plan Erythema noted to bilateral lower extremities, however has significant dimpling in place secondary to Navdeep wraps. Difficult to discern if here with EMS secondary to tightness of Navdeep wraps verses cellulitis. Will need reassessment. IV ceftriaxone <Rony Olmos MD - Last Filed: 04/20/25 11:28> Clarified Diagnosis Clarified Diagnosis: UTI due to/associated with chronic indwelling starr catheter Cellulitis ruled out Please document stage II pressure ulcer to left ischium <Rony Olmos MD - Last Filed: 04/20/25 11:28>
[2025-04-20] MEDS: SODIUM CHLORIDE 0.9% IV 1,000 ML 75 ML IV CONT (11:28)
--- NOTE | 2025-04-20 16:33 | P.PNIM_ITS ---
Progress Note: A&P Assessment and Plan (1) RENEA (acute kidney injury): Code(s): N17.9 - Acute kidney failure, unspecified Status: Resolved Assessment and Plan: - creatinine 1.38, BUN 37, GFR 37 upon admission on 04/18 - baseline creatinine: 0.7 - 0.9 - hx of recent RENEA that responded well to fluids and was suspected secondary to dehydration - IV fluids: 1L bolus -> 125 mL/hour - hold Farxiga and spironolactone, resume when appropriate resolved monitor (2) UTI (urinary tract infection): Code(s): N39.0 - Urinary tract infection, site not specified Status: Acute Assessment and Plan: - UA: Cloudy, 2+ glucose, 3+ leuk esterase, 21-50 RBC, greater than 100 WBC, no epithelial cells or bacteria, yeast present - UC pending, obtained on 04/18 - previous micro reviewed and no resistance is noted - started on Ceftriaxone on 04/18 - IV fluids (3) Urinary retention: Code(s): R33.9 - Retention of urine, unspecified Status: Acute Assessment and Plan: - Jara placed during previous admission from 03/26/25 - 04/03/25 - outpatient follow-up with Urology on 04/22 - exchanged Jara today, 04/18, due to concerns for UTI (4) DM2 (diabetes mellitus, type 2): Qualifiers: 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 Continue semaglutide p.o.. - correct regimen ordered - low dose TIDWM, based off BMI - A1C 7.2% in 2023 (5) Essential (primary) hypertension: Code(s): I10 - Essential (primary) hypertension Status: Chronic Assessment and Plan: - chronic, currently 138/85 - continue home medications: Metoprolol, clonidine. Hold spironolactone. - monitor Plan Erythema noted to bilateral lower extremities, however has significant dimpling in place secondary to Navdeep wraps. Difficult to discern if here with EMS secondary to tightness of Navdeep wraps verses cellulitis. Will need reassessment. Diet: Diabetic GI Prophylaxis: N/a DVT Prophylaxis: SCDs IV fluids: 1L bolus -> 125 mL/hour Lines/Tubes: Peripheral IV, Jara catheter Code Status: Full code Subjective Date/time seen: 04/20/25 16:33 Interval history: Comfortable at bedside Review of Systems Review of Systems: All systems reviewed & are unremarkable except as noted in HPI and below Exam Const: General: comfortable and no acute distress Other: , female, chronically ill-appearing, nontoxic appearance HENMT: Face/Nose/Sinus: Normal nares present Mouth: Yes moist mucous membranes Eyes: General: appearance normal, both eyes and all related structures Sclera: sclerae normal Pupils: Equal, round and reactive pupils present EOM: EOMs intact bilaterally Resp: Effort & Inspection: normal respiratory effort Auscultation: clear to auscultation bilaterally Cardio: Rate: regular rate Rhythm: regular rhythm Other: S1-S2 present without murmur, rub, ectopy GI: Other: Abdomen soft, nondistended, nontender. Normoactive bowel sounds in all quadrants. Skin: Other: erythema to bilateral lower extremities, dimpling from wraps to BLE. Small less than 1 cm open wound to left anterior burton with no signs of infection. Neuro: Cranial nerves: Yes Equal, round and reactive pupils present Speech: normal speech Motor exam (neuro): 5/5 motor strength present throughout Sensory Exam: normal sensation Other: A&O x4 Extrem: Other: Dimpling secondary to Navdeep wraps, mild tenderness. Psych: Mental Status: mental status grossly normal Affect: normal affect Other: Good insight and judgment, pleasant Objective Data Vital Signs Vital Signs: Vital Signs - 24 hr 04/19/25 21:04 04/19/25 22:08 04/19/25 22:08 Temperature 96.9 F L Pulse Rate 90 87 Respiratory Rate 12 Blood Pressure 140/73 Pulse Oximetry 93 Oxygen Delivery Room Air 04/20/25 06:00 04/20/25 08:00 04/20/25 08:37 Temperature 96.9 F L Pulse Rate 83 85 Respiratory Rate 12 Blood Pressure 146/77 H Pulse Oximetry 100 100 Oxygen Delivery Room Air 04/20/25 14:00 Temperature 96.5 F L Pulse Rate 92 Respiratory Rate 18 Blood Pressure 104/90 Pulse Oximetry 100 Oxygen Delivery Intake/Output Intake/Output: Intake & Output 04/17/25 04/18/25 04/19/25 04/20/25 23:59 23:59 23:59 23:59 Intake Total 1050 3720 1951.6 Output Total 4150 2300 Balance 1050 -430 -348.4 Meds/Results Medications: Active Medications Generic Name Dose Route Start Last Admin Trade Name Freq PRN Reason Stop Dose Admin Acetaminophen 650 mg 04/18/25 17:46 Acetaminophen 325 Mg Tablet PO Q4H PRN Mild Pain (1-3) or Fever Hydrocodone Bitart/Acetaminophen 1 tab 04/18/25 17:46 04/20/25 02:35 Hydrocodone/Acetaminophen (*Crx) 5-325 Mg Tablet PO 1 tab Q4H PRN Administration Pain Rated 4-6 Atorvastatin Calcium 20 mg 04/19/25 09:00 04/20/25 08:38 Atorvastatin 20 Mg Tablet PO 20 mg DAILY USAMA Administration Baclofen 10 mg 04/18/25 22:47 04/19/25 22:14 Baclofen 10 Mg Tablet PO 10 mg TID PRN Administration muscle spasm Buspirone HCl 10 mg 04/18/25 22:55 04/20/25 08:38 Buspirone Hcl 10 Mg Tablet PO 10 mg BID USAMA Administration Clonidine HCl 0.3 mg 04/18/25 22:50 04/20/25 08:37 Clonidine Hcl 0.1 Mg Tablet PO 0.3 mg Q12HR USAMA Administration Dextrose 12.5 gm 04/18/25 17:57 Dextrose 50% 25 Gm/50 Ml Syringe IV PUSH PRN PRN Hypoglycemia Protocol Duloxetine HCl 60 mg 04/19/25 09:00 04/20/25 08:38 Duloxetine Hcl 60 Mg Capsule.Dr PO 60 mg DAILY USAMA Administration Gabapentin 300 mg 04/19/25 09:00 04/20/25 08:37 Gabapentin 300 Mg Capsule PO 300 mg DAILY USAMA Administration Glucagon 1 mg 04/18/25 17:57 Glucagon For Inj 1 Mg Vial IM PRN PRN Hypoglycemia Protocol Glucose 15 gm 04/18/25 17:57 Glucose Oral Gel 15 Gm Of Glucse In 37.5 Gm Tube PO PRN PRN Hypoglycemia Protocol Ceftriaxone Sodium 1 gm/ 50 mls @ 100 mls/hr 04/19/25 18:00 04/19/25 17:29 Sodium Chloride IVPB 100 mls/hr Q24H USAMA Administration Sodium Chloride 1,000 mls @ 75 mls/hr 04/18/25 17:50 04/20/25 11:28 Normal Saline Iv IV CONT 75 mls/hr .[id number] USAMA Administration Dextrose 1,000 mls @ 100 mls/hr 04/18/25 17:57 Dextrose 5% 1,000 Ml IVPB PRN PRN Hypoglycemia Protocol Insulin Aspart 2 - 5 units 04/19/25 08:00 04/20/25 12:12 Insulin Aspart (*Bkc) 100 Units/Ml SUB-Q Not Given TIDWM USAMA Protocol Lactic Acid 1 applic 04/19/25 09:00 04/20/25 08:39 Lactic Acid 12% Lotion 225 Btl TOPICAL 1 applic DAILY USAMA Administration Metoprolol Tartrate 100 mg 04/18/25 22:50 04/20/25 08:37 Metoprolol Tartrate 50 Mg Tab PO 100 mg Q12HR USAMA Administration Ondansetron HCl 4 mg 04/18/25 17:46 Ondansetron Inj 4 Mg/2 Ml Vial IV PUSH Q4H PRN Nausea Pantoprazole Sodium 40 mg 04/19/25 09:00 04/20/25 08:38 Pantoprazole 40 Mg Tablet PO 40 mg DAILY USAMA Administration Pioglitazone HCl 15 mg 04/19/25 09:00 04/20/25 08:38 Pioglitazone Hcl 15 Mg Tab PO 15 mg DAILY USAMA Administration Radiology Results: ITS Impressions Chest X-Ray 04/18/25 16:09 IMPRESSION: No focal infiltrate or effusion. Labs Labs: Laboratory Results - last 24 hr 04/19/25 04/19/25 04/20/25 16:52 19:26 05:45 WBC 10.2 H RBC 3.85 L Hgb 11.3 L Hct 36.8 L MCV 95.6 MCH 29.4 MCHC 30.7 L RDW 14.5 Plt Count 270 MPV 10.1 Sodium 137 Potassium 4.0 Chloride 101 Carbon Dioxide 28 Anion Gap 8 BUN 20 H D Creatinine 1.00 Estim Creat Clear Calc 40 Estimated GFR 54 L Glucose 113 H POC Capillary Glucose 109 H 119 H Calcium 8.7 Total Bilirubin 0.2 AST 17 ALT 12 Alkaline Phosphatase 53 Total Protein 6.2 L Albumin 3.2 L 04/20/25 04/20/25 08:11 11:21 WBC RBC Hgb Hct MCV MCH MCHC RDW Plt Count MPV Sodium Potassium Chloride Carbon Dioxide Anion Gap BUN Creatinine Estim Creat Clear Calc Estimated GFR Glucose POC Capillary Glucose 132 H 130 H Calcium Total Bilirubin AST ALT Alkaline Phosphatase Total Protein Albumin Quality VTE Prophylaxis VTE prophylaxis: mechanical ordered
[2025-04-20] MEDS: cefTRIAXone 1 GM in SODIUM CHLORIDE 0.9% IV 50 ML 100 ML IVPB (17:01)
[2025-04-21] MEDS: SODIUM CHLORIDE 0.9% IV 1,000 ML 75 ML IV CONT ×2 (05:14→15:36)
[2025-04-21 05:29] VITALS: BP 154/89; PULSE 99; RESP 19; TEMP 36.5; O2SAT 98
[2025-04-21 06:06] LABS: Hematocrit 35.7 % (37.0-47.0); Hemoglobin 11.4 g/dL (12.0-15.0); Immature Granulocyte Percent A 0.5 % (0-0.5); Lymphocytes Absolute Auto 2.93 K/mm3 (0.9-3.2); Mean Corpuscular HGB Conc 31.9 g/dl (32-36); Mean Corpuscular Hemoglobin 29.2 pg (26-34); Mean Corpuscular Volume 91.5 fl (80-100); Nucleated Red Blood Cells Absolute Auto 0.000 K/mm3 (0.0-0.012); Nucleated Red Blood Cells Perc 0.0 % (0.0-0.2); Platelet Count Result 293 k/mm3 (150-375); Red Blood Count 3.90 M/mm3 (4.2-5.4); White Blood Count 10.6 K/mm3 (4.5-10.0)
[2025-04-21 06:25] LABS: Alanine Aminotransferase 9 U/L (6-35); Albumin Level 3.3 g/dL (3.5-5.1); Alkaline Phosphatase 54 U/L (38-126); Anion Gap 4 mmol/L (4-12); Aspartate Amino Transferase 25 U/L (14-36); Bilirubin,Total 0.3 mg/dL (0.2-1.3); Blood Urea Nitrogen 11 mg/dL (7-17); Calcium 8.6 mg/dL (8.4-10.2); Carbon Dioxide 27 mmol/L (22-30); Chloride 106 mmol/L (98-107); Estimated CRCL calculation 44 ml/min; Estimated Glomerular Filt Rate > 60; Glucose 124 mg/dL (65-110); Magnesium 1.5 mg/dL (1.6-2.3); Potassium 3.2 mmol/L (3.4-5.0); Sodium 137 mmol/L (137-145); Total Protein 6.3 g/dL (6.3-8.2)
[2025-04-21 08:38] VITALS: PULSE 99
[2025-04-21] MEDS: PIOGLITAZONE HCL 15 MG TAB PO (08:38)
[2025-04-21] MEDS: METOPROLOL TARTRATE 50 MG TAB 100 MG PO ×2 (08:38→21:23)
[2025-04-21] MEDS: DULoxetine HCL 60 MG CAPSULE.DR PO (08:38)
[2025-04-21] MEDS: GABAPENTIN 300 MG CAPSULE PO (08:39)
[2025-04-21] MEDS: ATORVASTATIN 20 MG TABLET PO (08:39)
[2025-04-21] MEDS: PANTOPRAZOLE 40 MG TABLET PO (08:40)
[2025-04-21] MEDS: HYDROcodone/acetaminophen (*CRX) 5-325 MG TABLET 1 TAB PO ×2 (08:54→21:44)
[2025-04-21] MEDS: MAGNESIUM SULF 2 GM/WATER 50ML 2 GM/50 ML BAG IVPB (08:55)
[2025-04-21] MEDS: LACTIC ACID 12% LOTION 225 BTL 1 APPLIC TOPICAL (08:59)
[2025-04-21] MEDS: SODIUM CHLORIDE 0.9% IV 500 ML IV CONT (09:25)
[2025-04-21 14:00] VITALS: BP 126/72; PULSE 87; RESP 16; TEMP 36.6; O2SAT 100
--- NOTE | 2025-04-21 14:14 | PM.IMPN ---
Progress Note: A&P Assessment and Plan (1) RENEA (acute kidney injury): Code(s): N17.9 - Acute kidney failure, unspecified Status: Resolved Assessment and Plan: - creatinine 1.38, BUN 37, GFR 37 upon admission on 04/18 - baseline creatinine: 0.7 - 0.9 - hx of recent RENEA that responded well to fluids and was suspected secondary to dehydration - IV fluids: 1L bolus -> 125 mL/hour - hold Farxiga and spironolactone, resume when appropriate resolved monitor (2) UTI (urinary tract infection): Code(s): N39.0 - Urinary tract infection, site not specified Status: Acute Assessment and Plan: - UA: Cloudy, 2+ glucose, 3+ leuk esterase, 21-50 RBC, greater than 100 WBC, no epithelial cells or bacteria, yeast present urine culture negative, UTI ruled out - previous micro reviewed and no resistance is noted - IV fluids (3) Urinary retention: Code(s): R33.9 - Retention of urine, unspecified Status: Acute Assessment and Plan: - Jara placed during previous admission from 03/26/25 - 04/03/25 - outpatient follow-up with Urology on 04/22 - exchanged Jara today, 04/18, due to concerns for UTI (4) DM2 (diabetes mellitus, type 2): Qualifiers: 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 Continue semaglutide p.o.. - correct regimen ordered - low dose TIDWM, based off BMI - A1C 7.2% in 2023 (5) Essential (primary) hypertension: Code(s): I10 - Essential (primary) hypertension Status: Chronic Assessment and Plan: - chronic, currently 138/85 - continue home medications: Metoprolol, clonidine. Hold spironolactone. - monitor Plan Bilateral cellulitis Patient has bilateral leg erythema with warmth noted those were new contnue Rocephin and doxycycline Monitor blood culture DVT Prophylaxis: SQ Lovenox Lines/Tubes: Peripheral IV, Jara catheter Code Status: Full code PT/OT consulted, dietitian consulted for nutrition intake eval Subjective Date/time seen: 04/21/25 14:14 Interval history: Comfortable at bedside Review of Systems Review of Systems: All systems reviewed & are unremarkable except as noted in HPI and below Exam Const: General: comfortable and no acute distress Other: , female, chronically ill-appearing, nontoxic appearance HENMT: Face/Nose/Sinus: Normal nares present Mouth: Yes moist mucous membranes Eyes: General: appearance normal, both eyes and all related structures Sclera: sclerae normal Pupils: Equal, round and reactive pupils present EOM: EOMs intact bilaterally Resp: Effort & Inspection: normal respiratory effort Auscultation: clear to auscultation bilaterally Cardio: Rate: regular rate Rhythm: regular rhythm Other: S1-S2 present without murmur, rub, ectopy GI: Other: Abdomen soft, nondistended, nontender. Normoactive bowel sounds in all quadrants. Skin: Other: erythema to bilateral lower extremities, dimpling from wraps to BLE. Small less than 1 cm open wound to left anterior burton with no signs of infection. Neuro: Cranial nerves: Yes Equal, round and reactive pupils present Speech: normal speech Motor exam (neuro): 5/5 motor strength present throughout Sensory Exam: normal sensation Other: A&O x4 Extrem: Other: Dimpling secondary to Navdeep wraps, mild tenderness. Psych: Mental Status: mental status grossly normal Affect: normal affect Other: Good insight and judgment, pleasant Objective Data Vital Signs Vital Signs: Vital Signs - 24 hr 04/20/25 20:36 04/20/25 22:00 04/20/25 22:36 Temperature 98.2 F Pulse Rate 84 82 85 Respiratory Rate 16 20 Blood Pressure 148/80 H Pulse Oximetry 98 96 Oxygen Delivery Room Air Fraction of Inspired Oxygen 21 04/20/25 22:36 04/21/25 05:29 04/21/25 08:38 Temperature 97.7 F Pulse Rate 65 99 99 Respiratory Rate 20 19 Blood Pressure 154/89 H Pulse Oximetry 95 98 Oxygen Delivery Room Air Fraction of Inspired Oxygen 21 Intake/Output Intake/Output: Intake & Output 04/18/25 04/19/25 04/20/25 04/21/25 23:59 23:59 23:59 23:59 Intake Total 1050 3770 2173.6 1518 Output Total 4150 3350 2075 Balance 1050 -380 -1176.4 -557 Meds/Results Medications: Active Medications Generic Name Dose Route Start Last Admin Trade Name Uche PRN Reason Stop Dose Admin Acetaminophen 650 mg 04/18/25 17:46 Acetaminophen 325 Mg Tablet PO Q4H PRN Mild Pain (1-3) or Fever Hydrocodone Bitart/Acetaminophen 1 tab 04/18/25 17:46 04/21/25 08:54 Hydrocodone/Acetaminophen (*Crx) 5-325 Mg Tablet PO 1 tab Q4H PRN Administration Pain Rated 4-6 Atorvastatin Calcium 20 mg 04/19/25 09:00 04/21/25 08:39 Atorvastatin 20 Mg Tablet PO 20 mg DAILY USAMA Administration Baclofen 10 mg 04/18/25 22:47 04/19/25 22:14 Baclofen 10 Mg Tablet PO 10 mg TID PRN Administration muscle spasm Buspirone HCl 10 mg 04/18/25 22:55 04/21/25 08:40 Buspirone Hcl 10 Mg Tablet PO 10 mg BID USAMA Administration Clonidine HCl 0.3 mg 04/18/25 22:50 04/21/25 08:40 Clonidine Hcl 0.1 Mg Tablet PO 0.3 mg Q12HR USAMA Administration Dextrose 12.5 gm 04/18/25 17:57 Dextrose 50% 25 Gm/50 Ml Syringe IV PUSH PRN PRN Hypoglycemia Protocol Duloxetine HCl 60 mg 04/19/25 09:00 04/21/25 08:38 Duloxetine Hcl 60 Mg Capsule.Dr PO 60 mg DAILY USAMA Administration Gabapentin 300 mg 04/19/25 09:00 04/21/25 08:39 Gabapentin 300 Mg Capsule PO 300 mg DAILY USAMA Administration Glucagon 1 mg 04/18/25 17:57 Glucagon For Inj 1 Mg Vial IM PRN PRN Hypoglycemia Protocol Glucose 15 gm 04/18/25 17:57 Glucose Oral Gel 15 Gm Of Glucse In 37.5 Gm Tube PO PRN PRN Hypoglycemia Protocol Ceftriaxone Sodium 1 gm/ 50 mls @ 100 mls/hr 04/19/25 18:00 04/20/25 17:01 Sodium Chloride IVPB 100 mls/hr Q24H USAMA Administration Sodium Chloride 1,000 mls @ 75 mls/hr 04/18/25 17:50 04/21/25 05:14 Normal Saline Iv IV CONT 75 mls/hr .[id number] USAMA Administration Dextrose 1,000 mls @ 100 mls/hr 04/18/25 17:57 Dextrose 5% 1,000 Ml IVPB PRN PRN Hypoglycemia Protocol Insulin Aspart 2 - 5 units 04/19/25 08:00 04/21/25 08:42 Insulin Aspart (*Bkc) 100 Units/Ml SUB-Q Not Given TIDWM USAMA Protocol Lactic Acid 1 applic 04/19/25 09:00 04/21/25 08:59 Lactic Acid 12% Lotion 225 Btl TOPICAL 1 applic DAILY USAMA Administration Metoprolol Tartrate 100 mg 04/18/25 22:50 04/21/25 08:38 Metoprolol Tartrate 50 Mg Tab PO 100 mg Q12HR USAMA Administration Ondansetron HCl 4 mg 04/18/25 17:46 Ondansetron Inj 4 Mg/2 Ml Vial IV PUSH Q4H PRN Nausea Pantoprazole Sodium 40 mg 04/19/25 09:00 04/21/25 08:40 Pantoprazole 40 Mg Tablet PO 40 mg DAILY USAMA Administration Pioglitazone HCl 15 mg 04/19/25 09:00 04/21/25 08:38 Pioglitazone Hcl 15 Mg Tab PO 15 mg DAILY USAMA Administration Radiology Results: ITS Impressions Chest X-Ray 04/18/25 16:09 IMPRESSION: No focal infiltrate or effusion. Labs Labs: Laboratory Results - last 24 hr 04/20/25 04/20/25 04/21/25 16:28 21:53 05:37 WBC 10.6 H RBC 3.90 L Hgb 11.4 L Hct 35.7 L MCV 91.5 MCH 29.2 MCHC 31.9 L RDW 14.6 H Plt Count 293 MPV 9.9 Immature Gran % (Auto) 0.5 Neut % (Auto) 55.7 Lymph % (Auto) 27.6 [place] % (Auto) 8.6 H Eos % (Auto) 7.0 H Baso % (Auto) 0.6 Lymph # (Auto) 2.93 [place] # (Auto) 0.9 H Eos # (Auto) 0.7 H Baso # (Auto) 0.1 Abs Immat Gran (auto) 0.05 H Absolute Neuts (auto) 5.9 Absolute Nucleated RBC 0.000 Nucleated RBC % 0.0 Sodium 137 Potassium 3.2 L Chloride 106 Carbon Dioxide 27 Anion Gap 4 BUN 11 D Creatinine 0.90 Estim Creat Clear Calc 44 Estimated GFR > 60 Glucose 124 H POC Capillary Glucose 107 H 150 H Lactic Acid Calcium 8.6 Magnesium 1.5 L Total Bilirubin 0.3 AST 25 ALT 9 Alkaline Phosphatase 54 Total Protein 6.3 Albumin 3.3 L 04/21/25 04/21/25 04/21/25 07:50 10:09 11:50 WBC RBC Hgb Hct MCV MCH MCHC RDW Plt Count MPV Immature Gran % (Auto) Neut % (Auto) Lymph % (Auto) [place] % (Auto) Eos % (Auto) Baso % (Auto) Lymph # (Auto) [place] # (Auto) Eos # (Auto) Baso # (Auto) Abs Immat Gran (auto) Absolute Neuts (auto) Absolute Nucleated RBC Nucleated RBC % Sodium Potassium Chloride Carbon Dioxide Anion Gap BUN Creatinine Estim Creat Clear Calc Estimated GFR Glucose POC Capillary Glucose 137 H 133 H Lactic Acid 0.9 Calcium Magnesium Total Bilirubin AST ALT Alkaline Phosphatase Total Protein Albumin Quality VTE Prophylaxis VTE prophylaxis: mechanical ordered
[2025-04-21] MEDS: DOXYCYCLINE IV 100 MG in SODIUM CHLORIDE 0.9% IV 100 ML IVPB (15:33)
[2025-04-21] MEDS: cefTRIAXone 1 GM in SODIUM CHLORIDE 0.9% IV 50 ML 100 ML IVPB (17:15)
[2025-04-21 21:23] VITALS: PULSE 68
[2025-04-21 21:36] VITALS: PULSE 84; RESP 20; O2SAT 90
[2025-04-21 21:49] VITALS: BP 114/62; PULSE 82; RESP 18; TEMP 36.9; O2SAT 99
[2025-04-22] MEDS: DOXYCYCLINE IV 100 MG in SODIUM CHLORIDE 0.9% IV 100 ML IVPB (02:04)
[2025-04-22] MEDS: SODIUM CHLORIDE 0.9% IV 1,000 ML 75 ML IV CONT ×2 (02:08→09:00)
[2025-04-22] MEDS: HYDROcodone/acetaminophen (*CRX) 5-325 MG TABLET 1 TAB PO ×3 (03:45→14:26)
[2025-04-22 06:00] VITALS: BP 156/81; PULSE 77; RESP 18; TEMP 36.6; O2SAT 97
[2025-04-22 06:07] LABS: Hematocrit 34.5 % (37.0-47.0); Hemoglobin 10.9 g/dL (12.0-15.0); Immature Granulocyte Percent A 0.4 % (0-0.5); Lymphocytes Absolute Auto 3.13 K/mm3 (0.9-3.2); Mean Corpuscular HGB Conc 31.6 g/dl (32-36); Mean Corpuscular Hemoglobin 29.1 pg (26-34); Mean Corpuscular Volume 92.2 fl (80-100); Nucleated Red Blood Cells Absolute Auto 0.000 K/mm3 (0.0-0.012); Nucleated Red Blood Cells Perc 0.0 % (0.0-0.2); Platelet Count Result 289 k/mm3 (150-375); Red Blood Count 3.74 M/mm3 (4.2-5.4); White Blood Count 10.8 K/mm3 (4.5-10.0)
[2025-04-22 06:33] LABS: Alanine Aminotransferase 9 U/L (6-35); Albumin Level 3.1 g/dL (3.5-5.1); Alkaline Phosphatase 54 U/L (38-126); Anion Gap 4 mmol/L (4-12); Aspartate Amino Transferase 18 U/L (14-36); Bilirubin,Total 0.2 mg/dL (0.2-1.3); Blood Urea Nitrogen 10 mg/dL (7-17); Calcium 8.5 mg/dL (8.4-10.2); Carbon Dioxide 25 mmol/L (22-30); Chloride 107 mmol/L (98-107); Estimated CRCL calculation 46 ml/min; Estimated Glomerular Filt Rate > 60; Glucose 136 mg/dL (65-110); Magnesium 1.8 mg/dL (1.6-2.3); Potassium 3.6 mmol/L (3.4-5.0); Sodium 136 mmol/L (137-145); Total Protein 6.1 g/dL (6.3-8.2)
[2025-04-22] MEDS: ENOXAPARIN 40 MG/0.4 ML SYRINGE SUB-Q (09:00)
[2025-04-22] MEDS: DULoxetine HCL 60 MG CAPSULE.DR PO (09:00)
[2025-04-22 09:01] VITALS: PULSE 84
[2025-04-22] MEDS: METOPROLOL TARTRATE 50 MG TAB 100 MG PO (09:01)
[2025-04-22] MEDS: ATORVASTATIN 20 MG TABLET PO (09:01)
[2025-04-22] MEDS: PIOGLITAZONE HCL 15 MG TAB PO (09:01)
[2025-04-22] MEDS: GABAPENTIN 300 MG CAPSULE PO (09:01)
[2025-04-22] MEDS: PANTOPRAZOLE 40 MG TABLET PO (09:01)
[2025-04-22] MEDS: LACTIC ACID 12% LOTION 225 BTL 1 APPLIC TOPICAL (09:01)
--- NOTE | 2025-04-22 09:25 | PCNFU ---
Nutrition Follow-Up Complete: Increased nutrient needs related to altered skin integrity as evidenced by a stage II pressure wound to ischium PO intake 75% - Goal is being met. Goal: Pt current nutrition is Diabetic consistent carbs. Glucerna BID (220 kcal, 10 g protein). Nutrition recommendation: No new nutrition recommendations. Continue current nutrition care plan and orders. Agree with orders Last recorded weight is 62 kg. Bowel Motility: No BMS are being charted Labs Reviewed: Hgb 10.9, Hct 34.5, Alb 3.1, Na 136, Glu 136 Meds Noted: Insulin, protonix, zofran Skin:Stage II pressure ischium Additional Notes: Pt had 1 instance of 5% yesterday at lunch, otherwise intakes are 75-100%. Continue to follow up every 7 days Monitor intake, wt, labs. Follow up in 7 days.
[2025-04-22] MEDS: DOXYCYCLINE HYCLATE 100 MG TABLET PO (14:26)
[2025-04-22 15:04] VITALS: BP 143/99; PULSE 87; RESP 18; TEMP 36.7; O2SAT 99
--- NOTE | 2025-04-22 15:28 | P.DS_ITS ---
DS: Admitting Diagnosis Discharge Date 04/22/25 Admitting Diagnosis Generalized Weakness DS: Discharge Diagnosis Discharge Diagnosis (1) Sepsis: Code(s): A41.9 - Sepsis, unspecified organism Status: Acute DS: Summary Hospital Course Hospital Course: HPI per admitting provider on 04/18/25 75 y/o F with PMH of type 2 diabetes, NSTEMI, osteoarthritis, fibromyalgia, generalized anxiety disorder, and hypertension presents here with weakness. The patient presents here from home via EMS for further evaluation of generalized weakness. She reports onset approximately 1-2 weeks ago. It is accompanied by a dysuria and poor appetite. She denies fever, chills, body aches, hematuria, abdominal pain. Of note, the patient was recently admitted from 03/26/25 - 04/03/25. She was seen for weakness, sepsis, colitis, cellulitis, RENEA, and UTI. She was discharged on Levaquin, recommended to complete a outpatient colonoscopy, and to follow-up with urology (planned for 04/22) due to concerns for chronic bladder outlet obstruction/urinary retention. She was discharged with a Jara. Initial VS at presentation: 98.3? F, HR 100, RR 20, 103/83, and 96% on RA. ED workup showed: WBC 14.9 (14.8 on 04/03), sodium 133, creatinine 1.38 and GFR 37 (0.87 and GFR >60 on 04/03), glucose 113, and UA suspicious for UTI. Viral PCR negative. CXR showed no focal infiltrate or effusion. Patient was initially was managed for CAUTI however urine cultre came back n egative. Patient was eventually managed for Cellulitis bilateral legs. Sepsis resolved on Rocephin and she is discharged today on 10 days of Cefdinir and Doxycycline. Patient noted her symptoms has markedly improved and her appetite has returned. F/u with PCP in 3-5 days Time Spent with Patient Time attestation: Total time spent providing and/or coordinating discharge services: DS: Data Data Completed and Pending Labs on day of discharge: Labs from last 24 hours 04/22/25 04/22/25 04/22/25 11:49 07:40 05:46 WBC 10.8 H RBC 3.74 L Hgb 10.9 L Hct 34.5 L MCV 92.2 MCH 29.1 MCHC 31.6 L RDW 14.5 Plt Count 289 MPV 10.0 Immature Gran % (Auto) 0.4 Neut % (Auto) 53.5 Lymph % (Auto) 29.1 [place] % (Auto) 7.6 Eos % (Auto) 8.7 H Baso % (Auto) 0.7 Lymph # (Auto) 3.13 [place] # (Auto) 0.8 H Eos # (Auto) 0.9 H Baso # (Auto) 0.1 Abs Immat Gran (auto) 0.04 H Absolute Neuts (auto) 5.8 Absolute Nucleated RBC 0.000 Nucleated RBC % 0.0 Sodium 136 L Potassium 3.6 Chloride 107 Carbon Dioxide 25 Anion Gap 4 BUN 10 Creatinine 0.86 Estim Creat Clear Calc 46 Estimated GFR > 60 Glucose 136 H POC Capillary Glucose 162 H 122 H Lactic Acid 1.0 Calcium 8.5 Magnesium 1.8 Total Bilirubin 0.2 AST 18 ALT 9 Alkaline Phosphatase 54 Total Protein 6.1 L Albumin 3.1 L 04/21/25 04/21/25 20:00 17:16 WBC RBC Hgb Hct MCV MCH MCHC RDW Plt Count MPV Immature Gran % (Auto) Neut % (Auto) Lymph % (Auto) [place] % (Auto) Eos % (Auto) Baso % (Auto) Lymph # (Auto) [place] # (Auto) Eos # (Auto) Baso # (Auto) Abs Immat Gran (auto) Absolute Neuts (auto) Absolute Nucleated RBC Nucleated RBC % Sodium Potassium Chloride Carbon Dioxide Anion Gap BUN Creatinine Estim Creat Clear Calc Estimated GFR Glucose POC Capillary Glucose 135 H 127 H Lactic Acid Calcium Magnesium Total Bilirubin AST ALT Alkaline Phosphatase Total Protein Albumin Discharge Plan Discharge Attending physician on discharge: Rony Olmos Discharging Clinician: Rony Olmos Anticipated Discharge Date/Time: 04/22/25 15:24 Patient Disposition: Home with Home Health Service Activity: as tolerated Diet: as tolerated and diabetic Discharge Instructions: Per Care Coordination:Patient to resume services with [facility] for RN/PT/OT services. Office will call patient to arrange for appointment. Office . RN please fax discharge instructions and medication sheets to [phone]. thanks. Patient Instructions: Antibiotic Form Patient Language: Turkmen Stand Alone Forms: General Discharge Information Follow-up/Referrals: Mateo Alfaro MD [Primary Care Provider, [facility]] Referral Note: F/u with PCP in 3-5 days Discharge Medications: New doxycycline hyclate 100 mg Tablet 100 mg PO Q12HR 10 Days Qty: 20 0RF cefdinir 300 mg Capsule 300 mg PO Q12HR 10 Days Qty: 20 0RF Continued (DME) FreeStyle Yulia 2 [place] Misc See Rx Instructions .Route Qty: 1 0RF Rx Instructions: As directed ammonium lactate [AmLactin] 12 % lotion 1 applic topical DAILY Qty: 225 5RF Patient Comments: pt applies to legs (DME) lancet-gluc test strip-needles Combo Pack See Rx Instructions .Route Qty: 300 0RF Rx Instructions: As directed baclofen 10 mg tablet 10 mg PO TID PRN (Reason: muscle spasm) (DME) OneTouch Verio test strips Strip See Rx Instructions .Route Qty: 300 0RF Rx Instructions: use 1 tid to check blood sugar clonidine HCl 0.3 mg tablet See Rx Instructions .ROUTE .COMPLEX Qty: 60 5RF Dose Instruction: Take 1 tablet by mouth twice daily Rx Instructions: Take 1 tablet by mouth twice daily spironolactone 25 mg tablet 25 mg PO DAILY Qty: 30 3RF buspirone 10 mg tablet 10 mg PO BID Qty: 60 5RF Rybelsus 7 mg tablet 7 mg PO DAILY Qty: 30 3RF Patient Comments: pt cannot remember which day dapagliflozin propanediol [Farxiga] 10 mg tablet 10 mg PO DAILY Qty: 90 3RF gabapentin 300 mg capsule 300 mg PO DAILY Qty: 90 1RF pioglitazone 15 mg tablet 15 mg PO DAILY Qty: 90 1RF hydrocodone-acetaminophen 5-325 mg tablet 1 tablet PO Q6H PRN (Reason: pain) Qty: 120 0RF metformin 500 mg tablet extended release 24 hr See Rx Instructions .ROUTE .COMPLEX Qty: 180 1RF Dose Instruction: Take 2 tablets by mouth twice daily Rx Instructions: Take 2 tablets by mouth twice daily pantoprazole 40 mg tablet,delayed release (DR/EC) See Rx Instructions .ROUTE .COMPLEX Qty: 60 0RF Dose Instruction: Take 1 tablet by mouth once daily Rx Instructions: Take 1 tablet by mouth once daily metoprolol tartrate 100 mg tablet See Rx Instructions .ROUTE .COMPLEX Qty: 180 0RF Dose Instruction: Take 1 tablet by mouth twice daily Rx Instructions: Take 1 tablet by mouth twice daily duloxetine 60 mg capsule,delayed release(DR/EC) See Rx Instructions .ROUTE .COMPLEX Qty: 90 0RF Dose Instruction: Take 1 capsule by mouth once daily Rx Instructions: Take 1 capsule by mouth once daily atorvastatin 20 mg tablet See Rx Instructions .ROUTE .COMPLEX Qty: 90 0RF Dose Instruction: Take 1 tablet by mouth once daily Rx Instructions: Take 1 tablet by mouth once daily (DME) FreeStyle Yulia 2 Sensor Kit See Rx Instructions .ROUTE .COMPLEX Qty: 2 3RF Dose Instruction: USE DIRECTED Rx Instructions: USE DIRECTED Date of admission: 04/19/25 10:56 Primary Care Provider: Mateo Alfaro Admitting Provider: Roman Richmond Attending physician on admission: Roman Richmond Condition: Stable
--- NOTE | 2025-04-22 15:40 | WNDPHOTO ---
PHOTO ONLY - See Nursing Notes and/ or assessments for documentation.
--- NOTE | 2025-04-22 18:05 | PC.NURSE ---
Pt strongly educated on skin integrity and the importance of Q2 turning and repositioning. During dressing change today, pt coccyx, sacrum, and bilateral buttocks were all purple but still blachanble. Pt and pt educated on need for reposiitoning every two hours. Pt given waffle chair pad mattress, as well as bilateral heel protectors. Pt and pt educated on usage of these to maintain pt skin integrity.
== END 2025-04-22 18:30 | disposition home health service (06) | DRG 872 ==
LOC: ANHED 14:27 → ANH3MEDSUR 18:41
PROVIDERS: General Practice; Student in an Organized Health Care Education/Training Program; Admitting Provider Family Medicine; Emergency Provider Emergency Medicine; PCP Family Medicine Adolescent Medicine; Visit Provider Internal Medicine
DX: A41.9 Sepsis, unspecified organism (principal); N17.9 Acute kidney failure, unspecified; L89.322 Pressure ulcer of left buttock, stage 2; E11.65 Type 2 diabetes mellitus with hyperglycemia; F41.1 Generalized anxiety disorder; I25.2 Old myocardial infarction; I10 Essential (primary) hypertension; M79.7 Fibromyalgia; M15.9 Polyosteoarthritis, unspecified; R30.0 Dysuria; R33.9 Retention of urine, unspecified; Z87.891 Personal history of nicotine dependence; Z20.822 Contact with and (suspected) exposure to COVID-19; Z79.84 Long term (current) use of oral hypoglycemic drugs; Z79.85 Long-term (current) use of injectable non-insulin antidiabetic drugs
CPT/HCPCS: 36415; 71046; 80048; 80053; 81001; 82948; 83605; 83735; 85025; 85027; 87086; 87637; 99285; A9270; G0378; J0696; J1650; J3475; J7030; J7040

== ENCOUNTER 2025-04-25 12:22 | Inpatient (IN) | payer OTHER, MEDICARE, SELFPAY ==
[2025-04-25] VITALS (11 sets, daily range): BP systolic 112–157; BP diastolic 64–81; PULSE 83–113; RESP 12–20; TEMP 36.4–36.8; O2SAT 93–100; BMI 24.0
--- NOTE | ~2025-04-25 | XR_ITS ---
XR abdomen/kub 1V 04/26/2025 14:59 INDICATION: Constipation TECHNIQUE: KUB COMPARISON: CT dated 03/26/2025 FINDINGS: Bowel gas pattern is normal. There is a porcelain gallbladder. There is residual contrast within colonic diverticula. Moderate colonic fecal loading. There is no evidence of free air, mass, organomegaly, ascites or obstruction. No abnormal calculi are seen. The bones appear intact. IMPRESSION: 1: No acute abdominal abnormality identified. 2: Porcelain gallbladder. Reviewed, dictated and finalized at location O.
--- NOTE | ~2025-04-25 | US_ITS ---
US renal BI 04/27/2025 15:22 Procedure: Realtime transabdominal ultrasound of the kidneys and bladder. Indication: Hematuria Comparison: CT dated 03/26/2025 Findings: Renal echotexture is normal bilaterally without hydronephrosis, contour deforming mass or renal calculus. The right kidney measures 10.9 cm and left kidney measures 11.3 cm. Bladder wall appears mildly trabeculated and thickened, suspicious for cystitis. There is focal thickening superiorly on the right in the bladder. Malignancy is not excluded. Impression: 1: Trabeculated bladder appearance with thickening. Focal thickening more prominent superiorly on the right. Cannot exclude transitional cell carcinoma possibly superimposed on cystitis. Recommend urology consultation. Reviewed, dictated and finalized at location O. Impression: 1: Trabeculated bladder appearance with thickening. Focal thickening more promi nent superiorly on the right. Cannot exclude transitional cell carcinoma possib ly superimposed on cystitis. Recommend urology consultation.
--- NOTE | ~2025-04-25 | US_ITS ---
EXAMINATION:US venous doppler LE BI INDICATION:Swelling and redness TECHNIQUE: Multiple grayscale, color flow and Doppler images of the right and left lower extremity deep venous systems were obtained and reviewed. COMPARISON:No prior studies for comparison. FINDINGS: The common femoral, superficial femoral and popliteal veins demonstrate normal respiratory variation, augmentation and compressibility. Color flow is also seen within the posterior tibial, peroneal, greater saphenous and profunda veins. IMPRESSION: 1: No lower extremity deep venous thrombosis. Reviewed, dictated and finalized at location O.
--- NOTE | ~2025-04-25 | XR_ITS ---
EXAMINATION: XR chest 2V 04/25/2025 13:19 INDICATION: Weakness PROCEDURE: 2 view chest COMPARISON: Comparison to multiple prior studies sequentially, with oldest reviewed study dated 07/21/2023. FINDINGS: The lungs are clear. The cardiomediastinal silhouette is within normal limits. There are no pleural effusions. There is no pneumothorax suspected. IMPRESSION: 1: NO ACUTE CARDIOPULMONARY DISEASE. Reviewed, dictated and finalized at location O.
--- NOTE | 2025-04-25 12:39 | ECG_ITS ---
Test Date: 2025-04-25 12:30:07 Measurements Intervals Mcdonald Rate: 84 P: 122 GA: 208 QRS: 181 QRSD: 79 T: 129 QT: 354 QTc: 419 Interpretive Statements SINUS RHYTHM WITH FIRST DEGREE AV BLOCK ARM LEADS REVERSED ATYPICAL ECG Compared to ECG 03/29/2025 14:58:41 HEART RATE HAS DECREASED FIRST DEGREE AV BLOCK NOW PRESENT Electronically Signed On 04-25-2025 15:10:32 CDT by Chalino Navarro D.O.
[2025-04-25 12:57] LABS: Hematocrit 39.3 % (37.0-47.0); Hemoglobin 12.7 g/dL (12.0-15.0); Immature Granulocyte Percent A 0.5 % (0-0.5); Lymphocytes Absolute Auto 4.28 K/mm3 (0.9-3.2); Mean Corpuscular HGB Conc 32.3 g/dl (32-36); Mean Corpuscular Hemoglobin 29.3 pg (26-34); Mean Corpuscular Volume 90.8 fl (80-100); Nucleated Red Blood Cells Absolute Auto 0.000 K/mm3 (0.0-0.012); Nucleated Red Blood Cells Perc 0.0 % (0.0-0.2); Platelet Count Result 413 k/mm3 (150-375); Red Blood Count 4.33 M/mm3 (4.2-5.4); White Blood Count 16.2 K/mm3 (4.5-10.0)
[2025-04-25 13:22] LABS: Alanine Aminotransferase 12 U/L (6-35); Albumin Level 3.8 g/dL (3.5-5.1); Alkaline Phosphatase 59 U/L (38-126); Anion Gap 7 mmol/L (4-12); Aspartate Amino Transferase 23 U/L (14-36); Bilirubin,Total 0.4 mg/dL (0.2-1.3); Blood Urea Nitrogen 33 mg/dL (7-17); Calcium 10.3 mg/dL (8.4-10.2); Carbon Dioxide 27 mmol/L (22-30); Chloride 102 mmol/L (98-107); Estimated CRCL calculation 38 ml/min; Estimated Glomerular Filt Rate 52; Glucose 110 mg/dL (65-110); Potassium 4.5 mmol/L (3.4-5.0); Sodium 136 mmol/L (137-145); Total Protein 7.4 g/dL (6.3-8.2)
[2025-04-25 14:40] LABS: Add Urine Microscopic? YES; Appearance Urine Turbid (Clear); Budding Yeast Urine Present /hpf; Glucose Urine UA 2+ mg/dL (Negative); Leukocyte Esterase Ur 3+ LEU/UL (Negative); Need Manual Microscopic Reviewed; Nitrate Urine Negative (Negative); Specific Grav Ur 1.012 (1.001-1.035)
--- NOTE | 2025-04-25 14:59 | ED_ITS ---
HPI - General Adult General Chief complaint: Weakness Stated complaint: weakness Time Seen by Provider: 04/25/25 13:12 History of Present Illness HPI narrative: Patient 75-year-old female who presents emergency department with chief complaint of generalized weakness. Patient was just in the hospital and was diagnosed with UTI the patient has prior history of diabetes and also prior history of stroke patient denies chest pain denies shortness of breath reports that she just generally feels unwell the patient also reports she had leakage around her catheter today Related Data Home Medications ?Medication ?Instructions ?Recorded ?Confirmed ?Last Taken ?Type baclofen 10 mg tablet 10 mg PO TID PRN muscle spas m 03/26/25 04/18/25 04/17/25 History Allergies Allergy/AdvReac Type Severity Reaction Status Date / Time amoxicillin (From Augmentin) Allergy Unknown Verified 04/25/25 12:42 clavulanic acid (From Allergy Unknown Verified 04/25/25 12:42 Augmentin) Review of Systems 2 Review of Systems: A 10 system review of systems was completed on the patient and is negative except for what is stated in the HPI. Nursing and ancillary documentation was reviewed. ON LICENSE OF [facility] Past Medical History Medical History Eczema Osteoarthritis Venous insufficiency (chronic) (peripheral) DM2 (diabetes mellitus, type 2) Non-ST elevated myocardial infarction (non-STEMI) Osteoarthritis of hands, bilateral Bilateral primary osteoarthritis of knee Essential (primary) hypertension Fibromyalgia Generalized anxiety disorder Arthralgia of multiple joints Surgical History Surgical History History of tubal ligation (~1989) Family History Family History Grandparent Acute myocardial infarction Cerebrovascular accident Heart disease Mother Colon polyp Diabetes mellitus Pancreatic adenocarcinoma Other Depression Hypertension Neuralgia of both lower extremities Social History Social History Social History: Surrogate medical decision maker: Shravan Avendañotoritoandrea, spouse. Code status: Full code. Smoking status: Former smoker Second hand tobacco smoke exposure: No Additional smoking assessment comments: current every day marijuana pipe smoker Alcohol intake: never Substance use: never Substance use type: does not use Last use: 03/26/25 Do You Feel Safe in your Home?: Yes Lack of Transportation: No Lack of Food: Never True Current Housing: I Have Housing Concerned About Future Housing: No Difficulty Paying Gas/Electric Bills: No Difficulty Paying for Meds: No Currently Unemployed: No Education: Associate Degree Difficulty w/ Childcare or Family Care: No Living arrangements: with family Occupation/Education: retired Spiritual care concerns: No Agree to blood products: Yes Exam 2 Narrative: GENERAL: Well-appearing, well-nourished, and in no acute distress. HEAD: Normocephalic, atraumatic. EYES: PERRLA and EOMI. ENT: Nares clear, no rhinorrhea or epistaxis. Mucous membranes moist. NECK: Supple. CHEST: Clear to auscultation. No respiratory distress. HEART: Regular rate and rhythm. No murmur heard. Normal peripheral pulses. ABDOMEN: Soft, nontender, nondistended, normal active bowel sounds. EXTREMITIES: Normal range of motion. Plus one edema. SKIN: Warm, dry, no rash. Redness present to bilateral lower extremities with the right being greater than the left NEURO: No focal deficits. Alert and oriented x3. PSYCH: Normal mood and affect. Course Vital Signs Vital signs: Vital Signs Temperature 36.4 C L 04/25/25 12:20 Pulse Rate 87 04/25/25 12:20 Respiratory Rate 12 04/25/25 12:20 Blood Pressure 157/81 H 04/25/25 12:20 Pulse Oximetry 99 04/25/25 12:20 Oxygen Delivery Room Air 04/25/25 12:20 Temperature 36.4 C L 04/25/25 12:20 Pulse Rate 84 04/25/25 14:27 Respiratory Rate 13 04/25/25 14:27 Blood Pressure 117/64 04/25/25 14:27 Pulse Oximetry 96 04/25/25 14:27 Oxygen Delivery Room Air 04/25/25 12:20 Medical Decision Making [facility] Narrative Medical decision making narrative: Differential diagnosis includes UTI, failed outpatient therapy, Laboratory studies were obtained showed a white count of 16.2 electrolytes showed a BUN of 33 and creatinine 1.04 troponin was negative pro callus 0.1 urinalysis was turbid 3+ leukocyte esterase 51-100 white blood cells and budding yeast Chest x-ray showed no focal infiltrate Troponin was negative EKG showed no acute ischemic changes Case was discussed with the hospitalist the patient was started on Rocephin Vital Signs Vital Signs: Vital Signs Temperature 36.4 C L 04/25/25 12:20 Pulse Rate 87 04/25/25 12:20 Respiratory Rate 12 04/25/25 12:20 Blood Pressure 157/81 H 04/25/25 12:20 Pulse Oximetry 99 04/25/25 12:20 Oxygen Delivery Room Air 04/25/25 12:20 Temperature 36.4 C L 04/25/25 12:20 Pulse Rate 84 04/25/25 14:27 Respiratory Rate 13 04/25/25 14:27 Blood Pressure 117/64 04/25/25 14:27 Pulse Oximetry 96 04/25/25 14:27 Oxygen Delivery Room Air 04/25/25 12:20 Lab Data 04/25/25 12:41 04/25/25 12:41 Labs: Lab Results 04/25/25 04/25/25 04/25/25 Range/Units 12:41 14:27 15:30 WBC 16.2 H (4.5-10.0) K/mm3 RBC 4.33 (4.2-5.4) M/mm3 Hgb 12.7 (12.0-15.0) g/dL Hct 39.3 (37.0-47.0) % MCV 90.8 (80-100) fl MCH 29.3 (26-34) pg MCHC 32.3 (32-36) g/dl RDW 14.6 H (11.5-14.5) % Plt Count 413 H (150-375) k/mm3 MPV 10.1 (7.4-10.4) fl Immature Gran % (Auto) 0.5 (0-0.5) % Neut % (Auto) 58.3 (45.5-73.1) % Lymph % (Auto) 26.5 (18.3-44.2) % [place] % (Auto) 6.1 (2.6-8.5) % Eos % (Auto) 7.9 H (0-4.4) % Baso % (Auto) 0.7 (0.2-1.2) % Lymph # (Auto) 4.28 H (0.9-3.2) K/mm3 [place] # (Auto) 1.0 H (0.1-0.6) K/mm3 Eos # (Auto) 1.3 H (0-0.3) K/mm3 Baso # (Auto) 0.1 (0.0-0.1) K/mm3 Abs Immat Gran (auto) 0.08 H (0.00-0.031) K/mm3 Absolute Neuts (auto) 9.4 H (1.3-6.7) K/mm3 Absolute Nucleated RBC 0.000 (0.0-0.012) K/mm3 Nucleated RBC % 0.0 (0.0-0.2) % Sodium 136 L (137-145) mmol/L Potassium 4.5 (3.4-5.0) mmol/L Chloride 102 (98-107) mmol/L Carbon Dioxide 27 (22-30) mmol/L Anion Gap 7 (4-12) mmol/L BUN 33 H D (7-17) mg/dL Creatinine 1.04 H (0.7-1.0) mg/dL Estim Creat Clear Calc 38 ml/min Estimated GFR 52 L (59 - ) Glucose 110 (65-110) mg/dL Lactic Acid 1.8 (0.7-2.0) mmol/L Calcium 10.3 H (8.4-10.2) mg/dL Total Bilirubin 0.4 (0.2-1.3) mg/dL AST 23 (14-36) U/L ALT 12 (6-35) U/L Alkaline Phosphatase 59 (38-126) U/L Troponin I < 0.012 (0.000-0.034) ng/mL Total Protein 7.4 (6.3-8.2) g/dL Albumin 3.8 (3.5-5.1) g/dL Procalcitonin 0.1 ng/mL Urine Color Yellow (Yellow) Urine Appearance Turbid H (Clear) Urine pH 5.5 (5.0-9.0) Ur Specific [place] 1.012 (1.001-1.035) Urine Protein Negative (Negative) mg/dL Urine Glucose (UA) 2+ H (Negative) mg/dL Urine Ketones Negative (Negative) mg/dL Ur Blood (Man) Trace (Negative) Urine Nitrate Negative (Negative) Urine Bilirubin Negative (Negative) Urine Urobilinogen 0.2 (<2.0) mg/dL Add Ur Microanalysis Reviewed Leukocyte Esterase Rfl 3+ H (Negative) MI/UL Urine RBC 3-5 H (0-2) /hpf Urine WBC 51-100 H (0-3) /hpf Ur Squamous Epith Cells None seen (Few) /hpf Urine Bacteria None seen /hpf Urine Casts 3-5 Urine Yeast (Budding) Present H (None) /hpf Discharge Plan Discharge Clinical Impression: Acute UTI, Edema of both lower legs, Generalized weakness Patient Disposition: Still a Patient Condition: Stable Patient Language: Nigerien Prescriptions: No Action (DME) [facility] See Rx Instructions .Route Qty: 1 0RF Rx Instructions: As directed ammonium lactate [AmLactin] 12 % lotion 1 applic topical DAILY Qty: 225 5RF Patient Comments: pt applies to legs cefdinir 300 mg Capsule 300 mg PO Q12HR 10 Days Qty: 20 0RF doxycycline hyclate 100 mg Tablet 100 mg PO Q12HR 10 Days Qty: 20 0RF (DME) lancet-gluc test strip-needles Combo Pack See Rx Instructions .Route Qty: 300 0RF Rx Instructions: As directed baclofen 10 mg tablet 10 mg PO TID PRN (Reason: muscle spasm) (DME) OneTouch Verio test strips Strip See Rx Instructions .Route Qty: 300 0RF Rx Instructions: use 1 tid to check blood sugar clonidine HCl 0.3 mg tablet See Rx Instructions .ROUTE .COMPLEX Qty: 60 5RF Dose Instruction: Take 1 tablet by mouth twice daily Rx Instructions: Take 1 tablet by mouth twice daily spironolactone 25 mg tablet 25 mg PO DAILY Qty: 30 3RF buspirone 10 mg tablet 10 mg PO BID Qty: 60 5RF Rybelsus 7 mg tablet 7 mg PO DAILY Qty: 30 3RF Patient Comments: pt cannot remember which day dapagliflozin propanediol [Farxiga] 10 mg tablet 10 mg PO DAILY Qty: 90 3RF gabapentin 300 mg capsule 300 mg PO DAILY Qty: 90 1RF pioglitazone 15 mg tablet 15 mg PO DAILY Qty: 90 1RF hydrocodone-acetaminophen 5-325 mg tablet 1 tablet PO Q6H PRN (Reason: pain) Qty: 120 0RF metformin 500 mg tablet extended release 24 hr See Rx Instructions .ROUTE .COMPLEX Qty: 180 1RF Dose Instruction: Take 2 tablets by mouth twice daily Rx Instructions: Take 2 tablets by mouth twice daily pantoprazole 40 mg tablet,delayed release (DR/EC) See Rx Instructions .ROUTE .COMPLEX Qty: 60 0RF Dose Instruction: Take 1 tablet by mouth once daily Rx Instructions: Take 1 tablet by mouth once daily metoprolol tartrate 100 mg tablet See Rx Instructions .ROUTE .COMPLEX Qty: 180 0RF Dose Instruction: Take 1 tablet by mouth twice daily Rx Instructions: Take 1 tablet by mouth twice daily duloxetine 60 mg capsule,delayed release(DR/EC) See Rx Instructions .ROUTE .COMPLEX Qty: 90 0RF Dose Instruction: Take 1 capsule by mouth once daily Rx Instructions: Take 1 capsule by mouth once daily atorvastatin 20 mg tablet See Rx Instructions .ROUTE .COMPLEX Qty: 90 0RF Dose Instruction: Take 1 tablet by mouth once daily Rx Instructions: Take 1 tablet by mouth once daily (DME) FreeStyle Yulia 2 Sensor Kit See Rx Instructions .ROUTE .COMPLEX Qty: 2 3RF Dose Instruction: USE DIRECTED Rx Instructions: USE DIRECTED Follow-up/Referrals: Mateo Alfaro MD [Primary Care Provider, Family Practice] Time of Disposition: 16:11
[2025-04-25 16:01] LABS: Troponin I < 0.012 ng/mL (0.000-0.034)
[2025-04-25 16:05] LABS: Procalcitonin 0.1 ng/mL
--- NOTE | 2025-04-25 16:14 | PM.IMHP ---
H&P: HPI History of Present Illness Date/Time: 04/25/25 16:14 Chief Complaint: Generalized weakness Narrative: 75-year-old female with a PMHx: of type 2 diabetes, NSTEMI, OA, fibromyalgia, generalized anxiety disorder and HTN presented here with the complaint of generalized weakness. Patient presented to the emergency room today via EMS for further evaluation of ongoing generalized weakness she reported inability to stand which had recurred after recent hospital discharges from 03/26/25 - 04/03/25, and then 04/19/25-04/22/2025 Patient reported having a Jara catheter in which she noticed has been leaking since she has been at home. Per chart review pt was discharged on Levaquin, recommended to complete a outpatient colonoscopy, and to follow-up with urology (planned for 04/22) due to concerns for chronic bladder outlet obstruction/urinary retention. She was discharged with a Jara. Patient was initially managed for CAUTI however urine cultre came back negative. Patient was eventually managed for Cellulitis bilateral legs. Recently she was discharged home with 10 days of Cefdinir and Doxycycline. ED workup revealed: Laboratory studies were obtained showed a white count of 16.2 electrolytes showed a BUN of 33 and creatinine 1.04 troponin was negative pro callus 0.1 urinalysis was turbid 3+ leukocyte esterase 51-100 white blood cells and budding yeast Chest x-ray showed no focal infiltrate Troponin was negative EKG showed no acute ischemic changes PMFSH Past Medical History Medical History Eczema Osteoarthritis Venous insufficiency (chronic) (peripheral) DM2 (diabetes mellitus, type 2) Non-ST elevated myocardial infarction (non-STEMI) Osteoarthritis of hands, bilateral Bilateral primary osteoarthritis of knee Essential (primary) hypertension Fibromyalgia Generalized anxiety disorder Arthralgia of multiple joints Surgical History Surgical History History of tubal ligation (~1989) Family History Family History Grandparent Acute myocardial infarction Cerebrovascular accident Heart disease Mother Colon polyp Diabetes mellitus Pancreatic adenocarcinoma Other Depression Hypertension Neuralgia of both lower extremities Social History Social History Social History: Surrogate medical decision maker: Shravan Ramsay, spouse. Code status: Full code. Smoking status: Former smoker Second hand tobacco smoke exposure: No Alcohol intake: never Substance use: never Substance use type: former substance user and marijuana Last use: 03/26/25 Do You Feel Safe in your Home?: Yes Lack of Transportation: No Lack of Food: Never True Current Housing: I Have Housing Concerned About Future Housing: No Difficulty Paying Gas/Electric Bills: No Difficulty Paying for Meds: No Currently Unemployed: No Education: Associate Degree Difficulty w/ Childcare or Family Care: No Living arrangements: with family Occupation/Education: retired Spiritual care concerns: No Agree to blood products: Yes Meds Home Medications and Allergies Home Medications ?Medication ?Instructions ?Recorded ?Confirmed ?Type lancet with blood glucose test #300 ea 01/29/23 04/25/25 Rx strips and pen needles combo pack blood sugar diagnostic (OneTouch #300 ea 05/20/23 04/25/25 Rx Verio test strips) flash glucose scanning reader #1 ea 05/20/23 04/25/25 Rx (FreeStyle Yulia 2 [place]) ammonium lactate 12 % lotion 1 applic topical DAILY #225 grams 10/26/24 04/25/25 Rx (AmLactin) clonidine HCl 0.3 mg tablet See Rx Instructions .Route 12/27/24 04/25/25 Rx .COMPLEX #60 tabs spironolactone 25 mg tablet 25 mg PO DAILY #30 tabs 01/18/25 04/25/25 Rx buspirone 10 mg tablet 10 mg PO BID #60 tabs 02/06/25 04/25/25 Rx semaglutide 7 mg tablet (Rybelsus) 7 mg PO DAILY #30 tabs 02/15/25 04/25/25 Rx dapagliflozin propanediol 10 mg 10 mg PO DAILY #90 tabs 02/17/25 04/25/25 Rx tablet (Farxiga) gabapentin 300 mg capsule 300 mg PO DAILY #90 caps 03/03/25 04/25/25 Rx hydrocodone 5 mg-acetaminophen 325 1 tablet PO Q6H PRN pain #120 tabs 03/03/25 04/25/25 Rx mg tablet pioglitazone 15 mg tablet 15 mg PO DAILY #90 tabs 03/03/25 04/25/25 Rx metformin 500 mg tablet,extended See Rx Instructions .Route 03/07/25 04/25/25 Rx release 24 hr .COMPLEX #180 tabs baclofen 10 mg tablet 10 mg PO TID PRN muscle spasm 03/26/25 04/25/25 History metoprolol tartrate 100 mg tablet See Rx Instructions .Route 03/29/25 04/25/25 Rx .COMPLEX #180 tabs pantoprazole 40 mg tablet,delayed See Rx Instructions .Route 03/29/25 04/25/25 Rx release .COMPLEX #60 tabs atorvastatin 20 mg tablet See Rx Instructions .Route 04/07/25 04/25/25 Rx .COMPLEX #90 tabs duloxetine 60 mg capsule,delayed See Rx Instructions .Route 04/07/25 04/25/25 Rx release .COMPLEX #90 ea flash glucose sensor (FreeStyle #2 ea 04/12/25 04/25/25 Rx Yulia 2 Sensor kit) cefdinir 300 mg capsule 300 mg PO Q12HR 10 days #20 caps 04/22/25 04/25/25 Rx doxycycline hyclate 100 mg tablet 100 mg PO Q12HR 10 days #20 tabs 04/22/25 04/25/25 Rx Allergies Allergy/AdvReac Type Severity Reaction Status Date / Time amoxicillin (From Augmentin) Allergy Unknown Verified 04/25/25 12:42 clavulanic acid (From Allergy Unknown Verified 04/25/25 12:42 Augmentin) Vital Signs Vital Signs - 24 hr 04/25/25 12:20 04/25/25 12:41 04/25/25 13:29 Temperature 97.5 F L Pulse Rate 87 88 83 Respiratory Rate 12 14 Blood Pressure 157/81 H 131/77 Pulse Oximetry 99 98 Oxygen Delivery Room Air 04/25/25 14:27 Temperature Pulse Rate 84 Respiratory Rate 13 Blood Pressure 117/64 Pulse Oximetry 96 Oxygen Delivery Exam Narrative: GENERAL: Ill appearing, and in no acute distress resting on stretcher HEAD: Normocephalic, atraumatic. EYES: PERRLA and EOMI. ENT: Nares clear, no rhinorrhea or epistaxis. Mucous membranes moist. NECK: Supple. CHEST: Clear to auscultation. No respiratory distress. HEART: Regular rate and rhythm. No murmur heard. Normal peripheral pulses. ABDOMEN: Soft, nontender, nondistended, normal active bowel sounds. EXTREMITIES: Normal range of motion. Plus one edema. SKIN: Warm, dry, no rash. Redness present to bilateral lower extremities with the right being greater than the left NEURO: No focal deficits. Alert and oriented x3. PSYCH: Normal mood and affect. H&P: Results Labs Labs: Short CBC 04/25/25 Range/Units 12:41 WBC 16.2 H (4.5-10.0) K/mm3 Hgb 12.7 (12.0-15.0) g/dL Hct 39.3 (37.0-47.0) % Plt Count 413 H (150-375) k/mm3 BMP 04/25/25 12:41 Sodium 136 L Potassium 4.5 Chloride 102 Carbon Dioxide 27 BUN 33 H D Creatinine 1.04 H Glucose 110 Calcium 10.3 H Cardiac Enzymes 04/25/25 Range/Units 15:30 Troponin I < 0.012 (0.000-0.034) ng/mL Liver Function 04/25/25 Range/Units 12:41 Total Bilirubin 0.4 (0.2-1.3) mg/dL AST 23 (14-36) U/L ALT 12 (6-35) U/L Alkaline Phosphatase 59 (38-126) U/L Albumin 3.8 (3.5-5.1) g/dL Urine 04/25/25 Range/Units 14:27 Urine Color Yellow (Yellow) Urine Appearance Turbid H (Clear) Urine pH 5.5 (5.0-9.0) Ur Specific [place] 1.012 (1.001-1.035) Urine Protein Negative (Negative) mg/dL Urine Glucose (UA) 2+ H (Negative) mg/dL ECG ECG completion date: 04/25/25 ECG completion time: 12:30 Interpretation: Test Date: 2025-04-25 12:30:07 Measurements Intervals [place] Rate: 84 P: 122 WI: 208 QRS: 181 QRSD: 79 T: 129 QT: 354 QTc: 419 Interpretive Statements SINUS RHYTHM WITH FIRST DEGREE AV BLOCK ARM LEADS REVERSED ATYPICAL ECG Compared to ECG 03/29/2025 14:58:41 HEART RATE HAS DECREASED FIRST DEGREE AV BLOCK NOW PRESENT Electronically Signed On 04-25-2025 15:10:32 CDT by Chalino Navarro D.O. Imaging Venous Doppler study: Radiologist's impression: EXAMINATION:US venous doppler LE BI INDICATION:Swelling and redness TECHNIQUE: Multiple grayscale, color flow and Doppler images of the right and left lower extremity deep venous systems were obtained and reviewed. COMPARISON:No prior studies for comparison. FINDINGS: The common femoral, superficial femoral and popliteal veins demonstrate normal respiratory variation, augmentation and compressibility. Color flow is also seen within the posterior tibial, peroneal, greater saphenous and profunda veins. IMPRESSION: 1: No lower extremity deep venous thrombosis. Chest x-ray: Radiologist's impression: EXAMINATION: XR chest 2V 04/25/2025 13:19 INDICATION: Weakness PROCEDURE: 2 view chest COMPARISON: Comparison to multiple prior studies sequentially, with oldest reviewed study dated 07/21/2023. FINDINGS: The lungs are clear. The cardiomediastinal silhouette is within normal limits. There are no pleural effusions. There is no pneumothorax suspected. IMPRESSION: 1: NO ACUTE CARDIOPULMONARY DISEASE. Assessment and Plan Assessment and plan (1) UTI (urinary tract infection): Code(s): N39.0 - Urinary tract infection, site not specified Status: Acute Assessment and Plan: -blood cultures pending - UA: Cloudy, 2+ glucose, 3+ leuk esterase, 21-50 RBC, greater than 100 WBC, no epithelial cells or bacteria, yeast present - UC pending, obtained on 04/25 - previous micro reviewed and no resistance is noted - started on Ceftriaxone on 04/25 - IV fluids (2) Edema of both lower legs: Code(s): R60.0 - Localized edema Status: Acute Assessment and Plan: -bilateral swelling, right larger than left -hx of venous stasis ulcer -check venous duplex ultrasound bilateral rule out DVT (3) Jara catheter in place on admission: Code(s): Z97.8 - Presence of other specified devices Status: Acute Assessment and Plan: -in place during admission -consider consult urology/ pt last seen urology 03/29/2025, has not followed up. 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 Qualified Code(s): E11.65 - Type 2 diabetes mellitus with hyperglycemia Code(s): E11.9 - Type 2 diabetes mellitus without complications Status: Chronic Assessment and Plan: -hold home medication for Farxiga -bedside glucose management -bedside hypoglycemia protocol (7) Generalized weakness: Code(s): R53.1 - Weakness Status: Acute Assessment and Plan: -unable to ambulate or stand at home s/p most recent discharge to home (8) Chronic kidney disease (CKD) stage G3a/A1, moderately decreased glomerular filtration rate (GFR) between 45-59 mL/min/1.73 square meter and albuminuria creatinine ratio less than 30 mg/g: Code(s): N18.31 - Chronic kidney disease, stage 3a Status: Acute Assessment and Plan: As evidence by BUN 33, creatinine 1.04, GFR 52 -consider consult nephrology - baseline creatinine: 0.7 - 0.9 - hx of recent RENEA that responded well to fluids and was suspected secondary to dehydration - IV fluids: 1L bolus -> 125 mL/hour - hold Farxiga and spironolactone, resume when appropriate - trend renal function - trend electrolytes, correct as needed - consider further workup and nephrology consultation if no improvement in the next 24 hours (9) Hyponatremia: Code(s): E87.1 - Hypo-osmolality and hyponatremia Status: Acute Assessment and Plan: -chronic s/s CKD continue to monitor BMP daily (10) Urinary retention: Code(s): R33.9 - Retention of urine, unspecified Status: Acute Assessment and Plan: Jara placed during previous admission from 03/26/25 - 04/03/25 - outpatient follow-up with Urology on 04/22, pt did not make apt - exchanged Jara today, 04/25, due to concerns for UTI -pt will need new apt with urology (11) Yeast UTI: Code(s): B37.49 - Other urogenital candidiasis Status: Acute Assessment and Plan: -could be secondary to medication Farxiga -hold home medication at this time -fluconazole 150 mg p.o. once, may repeat dose in 72 hours Plan Continue home medications: VTE Prophylaxis: DIET: Heart healthy Anticipated hospital stay: > 2 days Code Status: Full Quality VTE Prophylaxis VTE prophylaxis: pharmacologic ordered
[2025-04-25] MEDS: cefTRIAXone 1 GM in SODIUM CHLORIDE 0.9% IV 50 ML 100 ML IVPB (16:15)
--- NOTE | 2025-04-25 17:53 | ADMGEN ---
This patient, Aggie Donald, was admitted to Medical Room 255-01. Patient/family oriented to hospital policies and general routines including ID bracelet, bed and alarms, visiting hours, pain management, procedures, bathroom and other care routines, personal items, smoking policy, room service/diet, and visiting hours. Information on how to activate the Rapid Response Team has been discussed. Patient/Family are encouraged to report perceived risks to care and to ask questions if they do not understand what they are told or what they should do.
[2025-04-25] MEDS: ATORVASTATIN 20 MG TABLET PO (21:19)
[2025-04-25] MEDS: FLUCONAZOLE 150 MG TABLET PO (21:19)
[2025-04-25] MEDS: KETOROLAC 30 MG/ML VIAL (*BKC) IV PUSH (23:41)
[2025-04-26] VITALS (8 sets, daily range): BP systolic 106–150; BP diastolic 54–77; PULSE 85–108; RESP 16–20; TEMP 36.2–36.7; O2SAT 98–100; BMI 24.3
[2025-04-26 05:05] LABS: Hematocrit 33.5 % (37.0-47.0); Hemoglobin 10.6 g/dL (12.0-15.0); Immature Granulocyte Percent A 0.4 % (0-0.5); Lymphocytes Absolute Auto 4.34 K/mm3 (0.9-3.2); Mean Corpuscular HGB Conc 31.6 g/dl (32-36); Mean Corpuscular Hemoglobin 28.9 pg (26-34); Mean Corpuscular Volume 91.3 fl (80-100); Nucleated Red Blood Cells Absolute Auto 0.000 K/mm3 (0.0-0.012); Nucleated Red Blood Cells Perc 0.0 % (0.0-0.2); Platelet Count Result 379 k/mm3 (150-375); Red Blood Count 3.67 M/mm3 (4.2-5.4); White Blood Count 14.0 K/mm3 (4.5-10.0)
[2025-04-26 05:19] LABS: Alanine Aminotransferase 8 U/L (6-35); Albumin Level 3.3 g/dL (3.5-5.1); Alkaline Phosphatase 57 U/L (38-126); Anion Gap 8 mmol/L (4-12); Aspartate Amino Transferase 16 U/L (14-36); Bilirubin,Total 0.3 mg/dL (0.2-1.3); Blood Urea Nitrogen 31 mg/dL (7-17); Calcium 9.5 mg/dL (8.4-10.2); Carbon Dioxide 27 mmol/L (22-30); Chloride 101 mmol/L (98-107); Estimated CRCL calculation 34 ml/min; Estimated Glomerular Filt Rate 44; Glucose 110 mg/dL (65-110); Potassium 3.4 mmol/L (3.4-5.0); Sodium 136 mmol/L (137-145); Total Protein 6.4 g/dL (6.3-8.2)
[2025-04-26] MEDS: ACETAMINOPHEN 325 MG TABLET 650 MG PO (08:32)
[2025-04-26] MEDS: DULoxetine HCL 60 MG CAPSULE.DR PO (08:32)
[2025-04-26] MEDS: METOPROLOL TARTRATE 50 MG TAB 100 MG PO ×2 (08:33→19:59)
[2025-04-26] MEDS: PANTOPRAZOLE 40 MG TABLET PO (08:33)
[2025-04-26] MEDS: GABAPENTIN 300 MG CAPSULE PO (08:33)
[2025-04-26] MEDS: ENOXAPARIN 40 MG/0.4 ML SYRINGE SUB-Q (08:33)
--- NOTE | 2025-04-26 12:11 | PM.IMPN ---
Progress Note: A&P Assessment and Plan (1) UTI (urinary tract infection): Code(s): N39.0 - Urinary tract infection, site not specified Status: Acute Assessment and Plan: Recurrent UTI associated with catheter Leukocytosis noted - UA: Cloudy, 2+ glucose, 3+ leuk esterase, 21-50 RBC, greater than 100 WBC, no epithelial cells or bacteria, yeast present - UC pending, obtained on 04/25 Patient was on Cefdinir and Doxycycline after discharged despite which she presented again for UTI Thus will change abx to Levaquin pending urine culture and ID eval (2) Edema of both lower legs: Code(s): R60.0 - Localized edema Status: Acute Assessment and Plan: -bilateral swelling, right larger than left -hx of venous stasis ulcer -venous duplex ultrasound bilateral negative for DVT (3) Jara catheter in place on admission: Code(s): Z97.8 - Presence of other specified devices Status: Acute Assessment and Plan: -in place during admission -new Jara exchange completed in the ED -continue to assess current need for Jara Urology consulted (4) Failure to thrive: Status: Acute Assessment and Plan: -pt with several past admissions -could be secondary to caregiver strain -consult care coordination for LTC information PT/OT (5) Essential (primary) hypertension: Code(s): I10 - Essential (primary) hypertension Status: Chronic Assessment and Plan: titrate home meds with clinical course (6) DM2 (diabetes mellitus, type 2): Qualifiers: Diabetes mellitus senior care insulin use: without extermination inspector use Diabetes mellitus complication status: with hyperglycemia Qualified Code(s): E11.65 - Type 2 diabetes mellitus with hyperglycemia Code(s): E11.9 - Type 2 diabetes mellitus without complications Status: Chronic Assessment and Plan: -hold home medication for [facility] -bedside glucose management -bedside hypoglycemia protocol (7) Generalized weakness: Code(s): R53.1 - Weakness Status: Acute Assessment and Plan: -unable to ambulate or stand at home s/p most recent discharge to home PT/OT consulted (8) Chronic kidney disease (CKD) stage G3a/A1, moderately decreased glomerular filtration rate (GFR) between 45-59 mL/min/1.73 square meter and albuminuria creatinine ratio less than 30 mg/g: Code(s): N18.31 - Chronic kidney disease, stage 3a Status: Acute Assessment and Plan: As evidence by BUN 33, creatinine 1.04, GFR 52 -consider consult nephrology - baseline creatinine: 0.7 - 0.9 - hx of recent RENEA that responded well to fluids and was suspected secondary to dehydration - IV fluids: 1L bolus -> 125 mL/hour - hold Farxiga and spironolactone, resume when appropriate - trend renal function - trend electrolytes, correct as needed (9) Hyponatremia: Code(s): E87.1 - Hypo-osmolality and hyponatremia Status: Acute Assessment and Plan: -chronic s/s CKD continue to monitor BMP daily (10) Urinary retention: Code(s): R33.9 - Retention of urine, unspecified Status: Acute Assessment and Plan: Jara placed during previous admission from 03/26/25 - 04/03/25 - outpatient follow-up with Urology on 04/22, pt did not make apt - exchanged Jara today, 04/25, due to concerns for UTI -pt will need new apt with urology (11) Yeast UTI: Code(s): B37.49 - Other urogenital candidiasis Status: Acute Assessment and Plan: -could be secondary to medication Farxiga -hold home medication at this time -fluconazole 150 mg p.o. once, may repeat dose in 72 hours Plan VTE Prophylaxis: Sq Lovenox Code Status: Full Subjective Date/time seen: 04/26/25 12:11 Interval history: Comfortable at bedside patient noted she presented with generalized weakness, ER eval noted leukocytosis and positive leukocyte esterase ID consulted this time. Exam Narrative: GENERAL: Ill appearing, and in no acute distress resting on stretcher HEAD: Normocephalic, atraumatic. EYES: PERRLA and EOMI. ENT: Nares clear, no rhinorrhea or epistaxis. Mucous membranes moist. NECK: Supple. CHEST: Clear to auscultation. No respiratory distress. HEART: Regular rate and rhythm. No murmur heard. Normal peripheral pulses. ABDOMEN: Soft, nontender, nondistended, normal active bowel sounds. EXTREMITIES: Normal range of motion. Plus one edema. SKIN: Warm, dry, no rash. Redness present to bilateral lower extremities with the right being greater than the left NEURO: No focal deficits. Alert and oriented x3. PSYCH: Normal mood and affect. Objective Data Vital Signs Vital Signs: Vital Signs - 24 hr 04/25/25 12:20 04/25/25 12:41 04/25/25 13:29 Temperature 97.5 F L Pulse Rate 87 88 83 Respiratory Rate 12 14 Blood Pressure 157/81 H 131/77 Pulse Oximetry 99 98 Oxygen Delivery Room Air Fraction of Inspired Oxygen 04/25/25 14:27 04/25/25 16:15 04/25/25 16:48 Temperature Pulse Rate 84 91 94 Respiratory Rate 13 13 13 Blood Pressure 117/64 124/77 112/74 Pulse Oximetry 96 98 98 Oxygen Delivery Fraction of Inspired Oxygen 04/25/25 17:12 04/25/25 17:56 04/25/25 20:00 Temperature 98 F Pulse Rate 98 98 Respiratory Rate 13 13 Blood Pressure 132/74 Pulse Oximetry 97 97 98 Oxygen Delivery Room Air Room Air Fraction of Inspired Oxygen 04/25/25 20:00 04/25/25 21:24 04/25/25 23:30 Temperature 97.7 F 98.2 F Pulse Rate 113 H 111 H 113 H Respiratory Rate 16 20 16 Blood Pressure 145/78 H 127/66 Pulse Oximetry 100 93 98 Oxygen Delivery Room Air Fraction of Inspired Oxygen 04/26/25 04:00 04/26/25 08:16 04/26/25 08:33 Temperature 97.8 F 98.1 F Pulse Rate 108 H 106 H 88 Respiratory Rate 16 16 Blood Pressure 146/72 H 130/54 L Pulse Oximetry 98 98 Oxygen Delivery Fraction of Inspired Oxygen 04/26/25 11:22 04/26/25 12:01 Temperature 98.1 F Pulse Rate 92 Respiratory Rate 16 Blood Pressure 106/72 Pulse Oximetry 100 Oxygen Delivery Room Air Fraction of Inspired Oxygen Intake/Output Intake/Output: Intake & Output 04/23/25 04/24/25 04/25/25 04/26/25 23:59 23:59 23:59 23:59 Intake Total 50 540 Output Total 500 Balance 50 40 Meds/Results Medications: Active Medications Generic Name Dose Route Start Last Admin Trade Name Freq PRN Reason Stop Dose Admin Acetaminophen 650 mg 04/25/25 20:45 04/26/25 08:32 Acetaminophen 325 Mg Tablet PO 650 mg Q6H PRN Administration Mild Pain (1-3) or Fever Atorvastatin Calcium 20 mg 04/25/25 21:00 04/25/25 21:19 Atorvastatin 20 Mg Tablet PO 20 mg HS USAMA Administration Buspirone HCl 10 mg 04/26/25 09:00 04/26/25 08:33 Buspirone Hcl 10 Mg Tablet PO 10 mg BID USAMA Administration Clonidine HCl 0.3 mg 04/26/25 09:00 04/26/25 08:32 Clonidine Hcl 0.1 Mg Tablet PO 0.3 mg BID USAMA Administration Dextrose 12.5 gm 04/25/25 19:17 Dextrose 50% 25 Gm/50 Ml Syringe IV PUSH PRN PRN Hypoglycemia Protocol Duloxetine HCl 60 mg 04/26/25 09:00 04/26/25 08:32 Duloxetine Hcl 60 Mg Capsule.Dr PO 60 mg DAILY USAMA Administration Enoxaparin Sodium 40 mg 04/26/25 09:00 04/26/25 08:33 Enoxaparin 40 Mg/0.4 Ml Syringe SUB-Q 40 mg DAILY USAMA Administration Gabapentin 300 mg 04/26/25 09:00 04/26/25 08:33 Gabapentin 300 Mg Capsule PO 300 mg DAILY USAMA Administration Glucagon 1 mg 04/25/25 19:17 Glucagon For Inj 1 Mg Vial IM PRN PRN Hypoglycemia Protocol Glucose 15 gm 04/25/25 19:17 Glucose Oral Gel 15 Gm Of Glucse In 37.5 Gm Tube PO PRN PRN Hypoglycemia Protocol Dextrose 1,000 mls @ 100 mls/hr 04/25/25 19:17 Dextrose 5% 1,000 Ml IVPB PRN PRN Hypoglycemia Protocol Ceftriaxone Sodium 1 gm/ 50 mls @ 100 mls/hr 04/26/25 16:00 Sodium Chloride IVPB Q24H USAMA Metoprolol Tartrate 100 mg 04/26/25 09:00 04/26/25 08:33 Metoprolol Tartrate 50 Mg Tab PO 100 mg Q12HR USAMA Administration Pantoprazole Sodium 40 mg 04/26/25 09:00 04/26/25 08:33 Pantoprazole 40 Mg Tablet PO 40 mg DAILY USAMA Administration Radiology Results: ITS Impressions Chest X-Ray 04/25/25 13:20 IMPRESSION: 1: NO ACUTE CARDIOPULMONARY DISEASE. Venous Doppler Study 04/25/25 17:33 IMPRESSION: 1: No lower extremity deep venous thrombosis. Labs Labs: Laboratory Results - last 24 hr 04/25/25 04/25/25 04/25/25 12:41 14:27 15:30 WBC 16.2 H RBC 4.33 Hgb 12.7 Hct 39.3 MCV 90.8 MCH 29.3 MCHC 32.3 RDW 14.6 H Plt Count 413 H MPV 10.1 Immature Gran % (Auto) 0.5 Neut % (Auto) 58.3 Lymph % (Auto) 26.5 Kings % (Auto) 6.1 Eos % (Auto) 7.9 H Baso % (Auto) 0.7 Lymph # (Auto) 4.28 H Kings # (Auto) 1.0 H Eos # (Auto) 1.3 H Baso # (Auto) 0.1 Abs Immat Gran (auto) 0.08 H Absolute Neuts (auto) 9.4 H Absolute Nucleated RBC 0.000 Nucleated RBC % 0.0 Sodium 136 L Potassium 4.5 Chloride 102 Carbon Dioxide 27 Anion Gap 7 BUN 33 H D Creatinine 1.04 H Estim Creat Clear Calc 38 Estimated GFR 52 L Glucose 110 POC Capillary Glucose Lactic Acid 1.8 Calcium 10.3 H Total Bilirubin 0.4 AST 23 ALT 12 Alkaline Phosphatase 59 Troponin I < 0.012 Total Protein 7.4 Albumin 3.8 Procalcitonin 0.1 Urine Color Yellow Urine Appearance Turbid H Urine pH 5.5 Ur Specific [place] 1.012 Urine Protein Negative Urine Glucose (UA) 2+ H Urine Ketones Negative Ur Blood (Man) Trace Urine Nitrate Negative Urine Bilirubin Negative Urine Urobilinogen 0.2 Add Ur Microanalysis Reviewed Leukocyte Esterase Rfl 3+ H Urine RBC 3-5 H Urine WBC 51-100 H Ur Squamous Epith Cells None seen Urine Bacteria None seen Urine Casts 3-5 Urine Yeast (Budding) Present H 04/25/25 04/26/25 04/26/25 20:46 04:19 08:19 WBC 14.0 H RBC 3.67 L Hgb 10.6 L Hct 33.5 L MCV 91.3 MCH 28.9 MCHC 31.6 L RDW 14.7 H Plt Count 379 H MPV 10.4 Immature Gran % (Auto) 0.4 Neut % (Auto) 54.1 Lymph % (Auto) 31.0 Kings % (Auto) 6.9 Eos % (Auto) 7.1 H Baso % (Auto) 0.5 Lymph # (Auto) 4.34 H Kings # (Auto) 1.0 H Eos # (Auto) 1.0 H Baso # (Auto) 0.1 Abs Immat Gran (auto) 0.06 H Absolute Neuts (auto) 7.6 H Absolute Nucleated RBC 0.000 Nucleated RBC % 0.0 Sodium 136 L Potassium 3.4 Chloride 101 Carbon Dioxide 27 Anion Gap 8 BUN 31 H Creatinine 1.20 H Estim Creat Clear Calc 34 Estimated GFR 44 L Glucose 110 POC Capillary Glucose 128 H 127 H Lactic Acid Calcium 9.5 Total Bilirubin 0.3 AST 16 ALT 8 Alkaline Phosphatase 57 Troponin I Total Protein 6.4 Albumin 3.3 L Procalcitonin Urine Color Urine Appearance Urine pH Ur Specific [place] Urine Protein Urine Glucose (UA) Urine Ketones Ur Blood (Man) Urine Nitrate Urine Bilirubin Urine Urobilinogen Add Ur Microanalysis Leukocyte Esterase Rfl Urine RBC Urine WBC Ur Squamous Epith Cells Urine Bacteria Urine Casts Urine Yeast (Budding) Quality VTE Prophylaxis VTE prophylaxis: pharmacologic ordered
[2025-04-26] MEDS: CEFEPIME 1 GM in SODIUM CHLORIDE 0.9% IV 50 ML 100 ML IVPB ×2 (14:57→23:40)
--- NOTE | 2025-04-26 15:05 | WPDURCON ---
Assessment and Plan Assessment and plan (1) Urinary retention: Onset Date: ~03/2025 Code(s): R33.9 - Retention of urine, unspecified Status: Acute (2) UTI (urinary tract infection): Qualifiers: Indwelling urinary catheter type: indwelling urethral catheter Urinary tract infection type: catheter-associated UTI Encounter type: initial encounter Qualified Code(s): T83.511A - Infection and inflammatory reaction due to indwelling urethral catheter, initial encounter; N39.0 - Urinary tract infection, site not specified Code(s): N39.0 - Urinary tract infection, site not specified Status: Acute Plan Ms. Donald is a 75-year-old female with urinary retention and recurrent UTIs, currently admitted for weakness. 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 Current lab work is concerning for a urinary tract infection, and she is being treated with IV antibiotics while blood and urine cultures are pending. - Will attempt a trial of void prior to discharge, once constipation is ruled out - If the trial of void is successful, she is counseled to perform timed voids every 3 hours during the day using a clock, rather than relying on the sensation of bladder fullness. - Instructed that for the best chance of success with the voiding trial, she should use a toilet or bedside commode to utilize gravity to help relax the pelvic floor. - She is to continue IV antibiotics as managed by the hospitalist team for the presumed UTI. ID has been consulted. - Will check a KUB to assess for constipation, as this can contribute to urinary retention. Recommend scheduled bowel regimen. - No acute urologic surgical intervention is indicated at this time. Urology Consult Note HPI Date Seen: 04/26/25 Requesting Physician: Rony Olmos MD Primary Care Provider: Mateo Alfaro MD Consult Narrative Reason for consult: Urinary retention, possible UTI Narrative: Ms. Donald is a 75-year-old female admitted on 04/25/2025 with generalized weakness and leakage around her indwelling Jara catheter. This admission follows two recent hospitalizations in the past month for similar issues including sepsis, UTI, and weakness. A Jara catheter was placed during her admission on 03/26/2025 for acute urinary retention, and she was discharged with it in place. She reports a history of urinary incontinence occurring both diurnally and nocturnally. Significant medical history includes type 2 diabetes mellitus, NSTEMI, hypertension, fibromyalgia, and dementia. She missed her scheduled outpatient urology appointment on 04/22/2025 due to her hospitalization. Her home medications include dapagliflozin, gabapentin, and baclofen. PERTINENT LABS: - 04/26/2025 - WBC 14.0, HGB 10.6, Plt 379, Cr 1.2 - 04/25/2025 - WBC 16.2, BUN 33, Cr 1.04. Urinalysis: Cloudy, 3+ leukocyte esterase, trace blood, 3-5 RBC, 51-100 WBC, yeast present. Urine culture pending. Review of Systems Constitutional: Constitutional: Reports weakness Cardiovascular: Cardiovascular: Denies chest pain Respiratory: Respiratory: Denies dyspnea Gastrointestinal: Gastrointestinal: Reports constipation Genitourinary: Genitourinary: Reports as per [facility] Past Medical History Medical History Eczema Osteoarthritis Venous insufficiency (chronic) (peripheral) DM2 (diabetes mellitus, type 2) Non-ST elevated myocardial infarction (non-STEMI) Osteoarthritis of hands, bilateral Bilateral primary osteoarthritis of knee Essential (primary) hypertension Fibromyalgia Generalized anxiety disorder Arthralgia of multiple joints Surgical History Surgical History History of tubal ligation (~1989) Family History Family History Grandparent Acute myocardial infarction Cerebrovascular accident Heart disease Mother Colon polyp Diabetes mellitus Pancreatic adenocarcinoma Other Depression Hypertension Neuralgia of both lower extremities Social History Social History Social History: Surrogate medical decision maker: Shravan Abebeandrea, spouse. Code status: Full code. Smoking status: Former smoker Second hand tobacco smoke exposure: No Alcohol intake: never Substance use: never Substance use type: former substance user and marijuana Last use: 03/26/25 Do You Feel Safe in your Home?: Yes Lack of Transportation: No Lack of Food: Never True Current Housing: I Have Housing Concerned About Future Housing: No Difficulty Paying Gas/Electric Bills: No Difficulty Paying for Meds: No Currently Unemployed: No Education: Associate Degree Difficulty w/ Childcare or Family Care: No Living arrangements: with family Occupation/Education: retired Spiritual care concerns: No Agree to blood products: Yes Meds Home Medications and Allergies Home Medications ?Medication ?Instructions ?Recorded ?Confirmed ?Type lancet with blood glucose test #300 ea 01/29/23 04/25/25 Rx strips and pen needles combo pack blood sugar diagnostic (OneTouch #300 ea 05/20/23 04/25/25 Rx Verio test strips) flash glucose scanning reader #1 ea 05/20/23 04/25/25 Rx (FreeStyle Yulia 2 [place]) ammonium lactate 12 % lotion 1 applic topical DAILY #225 grams 10/26/24 04/25/25 Rx (AmLactin) clonidine HCl 0.3 mg tablet See Rx Instructions .Route 12/27/24 04/25/25 Rx .COMPLEX #60 tabs spironolactone 25 mg tablet 25 mg PO DAILY #30 tabs 01/18/25 04/25/25 Rx buspirone 10 mg tablet 10 mg PO BID #60 tabs 02/06/25 04/25/25 Rx semaglutide 7 mg tablet (Rybelsus) 7 mg PO DAILY #30 tabs 02/15/25 04/25/25 Rx dapagliflozin propanediol 10 mg 10 mg PO DAILY #90 tabs 02/17/25 04/25/25 Rx tablet (Farxiga) gabapentin 300 mg capsule 300 mg PO DAILY #90 caps 03/03/25 04/25/25 Rx hydrocodone 5 mg-acetaminophen 325 1 tablet PO Q6H PRN pain #120 tabs 03/03/25 04/25/25 Rx mg tablet pioglitazone 15 mg tablet 15 mg PO DAILY #90 tabs 03/03/25 04/25/25 Rx metformin 500 mg tablet,extended See Rx Instructions .Route 03/07/25 04/25/25 Rx release 24 hr .COMPLEX #180 tabs baclofen 10 mg tablet 10 mg PO TID PRN muscle spasm 03/26/25 04/25/25 History metoprolol tartrate 100 mg tablet See Rx Instructions .Route 03/29/25 04/25/25 Rx .COMPLEX #180 tabs pantoprazole 40 mg tablet,delayed See Rx Instructions .Route 03/29/25 04/25/25 Rx release .COMPLEX #60 tabs atorvastatin 20 mg tablet See Rx Instructions .Route 04/07/25 04/25/25 Rx .COMPLEX #90 tabs duloxetine 60 mg capsule,delayed See Rx Instructions .Route 04/07/25 04/25/25 Rx release .COMPLEX #90 ea flash glucose sensor (FreeStyle #2 ea 04/12/25 04/25/25 Rx Yulia 2 Sensor kit) cefdinir 300 mg capsule 300 mg PO Q12HR 10 days #20 caps 04/22/25 04/25/25 Rx doxycycline hyclate 100 mg tablet 100 mg PO Q12HR 10 days #20 tabs 04/22/25 04/25/25 Rx Allergies Allergy/AdvReac Type Severity Reaction Status Date / Time amoxicillin (From Augmentin) Allergy Unknown Verified 04/25/25 12:42 clavulanic acid (From Allergy Unknown Verified 04/25/25 12:42 Augmentin) Vital Signs Vital Signs - 24 hr 04/25/25 16:15 04/25/25 16:48 04/25/25 17:12 Temperature 98 F Pulse Rate 91 94 98 Respiratory Rate 13 13 13 Blood Pressure 124/77 112/74 132/74 Pulse Oximetry 98 98 97 Oxygen Delivery Fraction of Inspired Oxygen 04/25/25 17:56 04/25/25 20:00 04/25/25 20:00 Temperature 97.7 F Pulse Rate 98 113 H Respiratory Rate 13 16 Blood Pressure 145/78 H Pulse Oximetry 97 98 100 Oxygen Delivery Room Air Room Air Fraction of Inspired Oxygen 04/25/25 21:24 04/25/25 23:30 04/26/25 04:00 Temperature 98.2 F 97.8 F Pulse Rate 111 H 113 H 108 H Respiratory Rate 20 16 16 Blood Pressure 127/66 146/72 H Pulse Oximetry 93 98 98 Oxygen Delivery Room Air Fraction of Inspired Oxygen 21 04/26/25 08:00 04/26/25 08:16 04/26/25 08:33 Temperature 98.1 F Pulse Rate 106 H 88 Respiratory Rate 16 Blood Pressure 130/54 L Pulse Oximetry 98 Oxygen Delivery Room Air Fraction of Inspired Oxygen 04/26/25 11:04 04/26/25 11:22 04/26/25 12:01 Temperature 98.1 F Pulse Rate 92 Respiratory Rate 16 Blood Pressure 106/72 Pulse Oximetry 100 Oxygen Delivery Room Air Room Air Fraction of Inspired Oxygen Exam Narrative: General: The patient is well-developed in no acute distress. Comfortable on exam. HEENT: Normocephalic, normal ear and nose structures Skin: Warm, dry, with no lesions seen on visible skin Lungs: Normal respiratory effort Heart: Appears well perfused Abdomen: Nondistended, nontender Back: No CVA tenderness Suprapubic area: Nondistended Genitourinary: Jara draining clear urine Extremities: Upper with no deformities. Neurologic: The patient is oriented to person, place. Normal mood and affect. Results Labs 04/26/25 04:19 04/26/25 04:19 Labs: Short CBC 04/26/25 Range/Units 04:19 WBC 14.0 H (4.5-10.0) K/mm3 Hgb 10.6 L (12.0-15.0) g/dL Hct 33.5 L (37.0-47.0) % Plt Count 379 H (150-375) k/mm3 BMP 04/26/25 04:19 Sodium 136 L Potassium 3.4 Chloride 101 Carbon Dioxide 27 BUN 31 H Creatinine 1.20 H Glucose 110 Calcium 9.5 Cardiac Enzymes 04/25/25 Range/Units 15:30 Troponin I < 0.012 (0.000-0.034) ng/mL Liver Function 04/26/25 Range/Units 04:19 Total Bilirubin 0.3 (0.2-1.3) mg/dL AST 16 (14-36) U/L ALT 8 (6-35) U/L Alkaline Phosphatase 57 (38-126) U/L Albumin 3.3 L (3.5-5.1) g/dL
--- NOTE | 2025-04-26 17:59 | WPDIDCN ---
Assessment and Plan Assessment and plan (1) Jara catheter in place on admission: Code(s): Z97.8 - Presence of other specified devices Status: Acute (2) Catheter-associated urinary tract infection: Code(s): T83.511A - Infection and inflammatory reaction due to indwelling urethral catheter, initial encounter; N39.0 - Urinary tract infection, site not specified Status: Acute Plan # Chronic Jara catheter recently placed for urinary retention. # Reactive urinary sediment with pyuria suggestive of UTI. However, while patient has leukocytosis she is without fever or suprapubic/flank tenderness. Recent urine culture only with mixed organism growth. Be that as it may, consider recurrent CAUTI. # Chronic kidney disease. Plan: -- while awaiting current urine culture recommend changing antibiotics to cefepime 2 g IV q.12 hours. -- further recommendations to follow. Thank you for the consult. HPI Data of Consult Date/Time: 04/26/25 17:59 Requesting Physician: Rony Olmos MD Primary Care Provider: Mateo Alfaro MD Consult Narrative Reason for consult: Evaluation of recurrent CAUTI. Narrative: Aggie Donald is a 75 year old female past medical history significant for diabetes, hypertension, fibromyalgia, osteoarthritis, anxiety, and urinary retention possibly from diabetics cystopathy. For the latter she has had placement of chronic Jara catheter. She has had recurrent urinary tract infections. Several recent hospitalizations whereby she received treatment for UTI and bilateral leg cellulitis. 04/18 urine culture during last hospitalization only significant for mixed organism growth. Discharge to home after this hospitalization 04/22 on cefdinir plus doxycycline for 10 days. Now admitted 04/25 with generalized weakness and Jara catheter leak. Catheter changed upon presentation and no longer leaking. Urinalysis was reactive with pyuria and suggestive of UTI; urine culture is pending. She denies distal abdominal or pelvic pain, fever, or chills. Reports hives allergy to Augmentin. Placed on ceftriaxone and levofloxacin. Review of Systems Review of Systems: All systems reviewed & are unremarkable except as noted in HPI and below PMFSH Past Medical History Medical History Eczema Osteoarthritis Venous insufficiency (chronic) (peripheral) DM2 (diabetes mellitus, type 2) Non-ST elevated myocardial infarction (non-STEMI) Osteoarthritis of hands, bilateral Bilateral primary osteoarthritis of knee Essential (primary) hypertension Fibromyalgia Generalized anxiety disorder Arthralgia of multiple joints Surgical History Surgical History History of tubal ligation (~1989) Family History Family History Grandparent Acute myocardial infarction Cerebrovascular accident Heart disease Mother Colon polyp Diabetes mellitus Pancreatic adenocarcinoma Other Depression Hypertension Neuralgia of both lower extremities Social History Social History Social History: Surrogate medical decision maker: Shravan Ramsay, spouse. Code status: Full code. Smoking status: Former smoker Second hand tobacco smoke exposure: No Alcohol intake: never Substance use: never Substance use type: former substance user and marijuana Last use: 03/26/25 Do You Feel Safe in your Home?: Yes Lack of Transportation: No Lack of Food: Never True Current Housing: I Have Housing Concerned About Future Housing: No Difficulty Paying Gas/Electric Bills: No Difficulty Paying for Meds: No Currently Unemployed: No Education: Associate Degree Difficulty w/ Childcare or Family Care: No Living arrangements: with family Occupation/Education: retired Spiritual care concerns: No Agree to blood products: Yes Meds Home Medications and Allergies Home Medications ?Medication ?Instructions ?Recorded ?Confirmed ?Type lancet with blood glucose test #300 ea 01/29/23 04/25/25 Rx strips and pen needles combo pack blood sugar diagnostic (OneTouch #300 ea 05/20/23 04/25/25 Rx Verio test strips) flash glucose scanning reader #1 ea 05/20/23 04/25/25 Rx (FreeStyle Yulia 2 [place]) ammonium lactate 12 % lotion 1 applic topical DAILY #225 grams 10/26/24 04/25/25 Rx (AmLactin) clonidine HCl 0.3 mg tablet See Rx Instructions .Route 12/27/24 04/25/25 Rx .COMPLEX #60 tabs spironolactone 25 mg tablet 25 mg PO DAILY #30 tabs 01/18/25 04/25/25 Rx buspirone 10 mg tablet 10 mg PO BID #60 tabs 02/06/25 04/25/25 Rx semaglutide 7 mg tablet (Rybelsus) 7 mg PO DAILY #30 tabs 02/15/25 04/25/25 Rx dapagliflozin propanediol 10 mg 10 mg PO DAILY #90 tabs 02/17/25 04/25/25 Rx tablet (Farxiga) gabapentin 300 mg capsule 300 mg PO DAILY #90 caps 03/03/25 04/25/25 Rx hydrocodone 5 mg-acetaminophen 325 1 tablet PO Q6H PRN pain #120 tabs 03/03/25 04/25/25 Rx mg tablet pioglitazone 15 mg tablet 15 mg PO DAILY #90 tabs 03/03/25 04/25/25 Rx metformin 500 mg tablet,extended See Rx Instructions .Route 03/07/25 04/25/25 Rx release 24 hr .COMPLEX #180 tabs baclofen 10 mg tablet 10 mg PO TID PRN muscle spasm 03/26/25 04/25/25 History metoprolol tartrate 100 mg tablet See Rx Instructions .Route 03/29/25 04/25/25 Rx .COMPLEX #180 tabs pantoprazole 40 mg tablet,delayed See Rx Instructions .Route 03/29/25 04/25/25 Rx release .COMPLEX #60 tabs atorvastatin 20 mg tablet See Rx Instructions .Route 04/07/25 04/25/25 Rx .COMPLEX #90 tabs duloxetine 60 mg capsule,delayed See Rx Instructions .Route 04/07/25 04/25/25 Rx release .COMPLEX #90 ea flash glucose sensor (FreeStyle #2 ea 04/12/25 04/25/25 Rx Yulia 2 Sensor kit) cefdinir 300 mg capsule 300 mg PO Q12HR 10 days #20 caps 04/22/25 04/25/25 Rx doxycycline hyclate 100 mg tablet 100 mg PO Q12HR 10 days #20 tabs 04/22/25 04/25/25 Rx Allergies Allergy/AdvReac Type Severity Reaction Status Date / Time amoxicillin (From Augmentin) Allergy Unknown Verified 04/25/25 12:42 clavulanic acid (From Allergy Unknown Verified 04/25/25 12:42 Augmentin) Vital Signs Vital Signs - 24 hr 04/25/25 20:00 04/25/25 20:00 04/25/25 21:24 Temperature 97.7 F Pulse Rate 113 H 111 H Respiratory Rate 16 20 Blood Pressure 145/78 H Pulse Oximetry 98 100 93 Oxygen Delivery Room Air Room Air Fraction of Inspired Oxygen 21 04/25/25 23:30 04/26/25 04:00 04/26/25 08:00 Temperature 98.2 F 97.8 F Pulse Rate 113 H 108 H Respiratory Rate 16 16 Blood Pressure 127/66 146/72 H Pulse Oximetry 98 98 Oxygen Delivery Room Air Fraction of Inspired Oxygen 04/26/25 08:16 04/26/25 08:33 04/26/25 11:04 Temperature 98.1 F Pulse Rate 106 H 88 Respiratory Rate 16 Blood Pressure 130/54 L Pulse Oximetry 98 Oxygen Delivery Room Air Fraction of Inspired Oxygen 04/26/25 11:22 04/26/25 12:01 04/26/25 17:07 Temperature 98.1 F 97.2 F L Pulse Rate 92 90 Respiratory Rate 16 16 Blood Pressure 106/72 150/77 H Pulse Oximetry 100 100 Oxygen Delivery Room Air Fraction of Inspired Oxygen Exam Narrative: Awake and alert and interactive. No distress. Normocephalic without conjunctivitis. No respiratory distress. Abdomen without significant distention. No suprapubic or flank tenderness. Jara catheter in place. No rash. Results Labs 04/26/25 04:19 04/26/25 04:19 Labs: Short CBC 04/26/25 Range/Units 04:19 WBC 14.0 H (4.5-10.0) K/mm3 Hgb 10.6 L (12.0-15.0) g/dL Hct 33.5 L (37.0-47.0) % Plt Count 379 H (150-375) k/mm3 BMP 04/26/25 04:19 Sodium 136 L Potassium 3.4 Chloride 101 Carbon Dioxide 27 BUN 31 H Creatinine 1.20 H Glucose 110 Calcium 9.5 Liver Function 04/26/25 Range/Units 04:19 Total Bilirubin 0.3 (0.2-1.3) mg/dL AST 16 (14-36) U/L ALT 8 (6-35) U/L Alkaline Phosphatase 57 (38-126) U/L Albumin 3.3 L (3.5-5.1) g/dL
[2025-04-26] MEDS: ATORVASTATIN 20 MG TABLET PO (19:59)
[2025-04-26] MEDS: HYDROcodone/acetaminophen (*CRX) 5-325 MG TABLET 1 TAB PO (19:59)
[2025-04-27] MEDS: HYDROcodone/acetaminophen (*CRX) 5-325 MG TABLET 1 TAB PO ×2 (01:57→20:05)
[2025-04-27 04:00] VITALS: BP 141/74; PULSE 86; RESP 20; TEMP 36.6; O2SAT 94
[2025-04-27 04:54] LABS: Hematocrit 32.0 % (37.0-47.0); Hemoglobin 10.2 g/dL (12.0-15.0); Immature Granulocyte Percent A 0.3 % (0-0.5); Lymphocytes Absolute Auto 3.84 K/mm3 (0.9-3.2); Mean Corpuscular HGB Conc 31.9 g/dl (32-36); Mean Corpuscular Hemoglobin 29.1 pg (26-34); Mean Corpuscular Volume 91.4 fl (80-100); Nucleated Red Blood Cells Absolute Auto 0.000 K/mm3 (0.0-0.012); Nucleated Red Blood Cells Perc 0.0 % (0.0-0.2); Platelet Count Result 335 k/mm3 (150-375); Red Blood Count 3.50 M/mm3 (4.2-5.4); White Blood Count 10.5 K/mm3 (4.5-10.0)
[2025-04-27 05:28] LABS: Alanine Aminotransferase 10 U/L (6-35); Albumin Level 3.2 g/dL (3.5-5.1); Alkaline Phosphatase 52 U/L (38-126); Anion Gap 7 mmol/L (4-12); Aspartate Amino Transferase 16 U/L (14-36); Bilirubin,Total 0.2 mg/dL (0.2-1.3); Blood Urea Nitrogen 32 mg/dL (7-17); Calcium 9.1 mg/dL (8.4-10.2); Carbon Dioxide 27 mmol/L (22-30); Chloride 102 mmol/L (98-107); Estimated CRCL calculation 34 ml/min; Estimated Glomerular Filt Rate 45; Glucose 150 mg/dL (65-110); Magnesium 1.5 mg/dL (1.6-2.3); Potassium 3.8 mmol/L (3.4-5.0); Sodium 136 mmol/L (137-145); Total Protein 6.3 g/dL (6.3-8.2)
--- NOTE | 2025-04-27 07:59 | P.CDI_ITS ---
CDI Query Clarification Request BMI: 23.7 Nutritional Diagnostic Statement: Please refer to the comprehensive nutrition assessment for further information. If you agree with diagnosis of Severe protein calorie malnutrition related to chronic loss of appetite, increased needs from wounds as evidenced by intakes <75% needs >1 month; weight loss -13%/5 months; moderate muscle wasting and fat loss. Please specify severity if known: * Mild * Moderate * Severe * Other/Unknown <Marietta Espino RN - Last Filed: 04/27/25 07:59> Clarified Diagnosis Clarified Diagnosis: Severe <Rony Olmos MD - Last Filed: 04/27/25 08:43>
[2025-04-27 08:22] VITALS: BP 162/101; PULSE 93; O2SAT 98
[2025-04-27 08:23] VITALS: PULSE 93
[2025-04-27] MEDS: GABAPENTIN 300 MG CAPSULE PO (08:23)
[2025-04-27] MEDS: ENOXAPARIN 40 MG/0.4 ML SYRINGE SUB-Q (08:23)
[2025-04-27] MEDS: DULoxetine HCL 60 MG CAPSULE.DR PO (08:23)
[2025-04-27] MEDS: PANTOPRAZOLE 40 MG TABLET PO (08:23)
[2025-04-27] MEDS: METOPROLOL TARTRATE 50 MG TAB 100 MG PO ×2 (08:23→20:05)
[2025-04-27] MEDS: CEFEPIME 1 GM in SODIUM CHLORIDE 0.9% IV 50 ML 100 ML IVPB ×2 (08:24→20:04)
--- NOTE | 2025-04-27 10:11 | P.PNINF_ITS ---
Progress Note: A&P Assessment and Plan (1) Jara catheter in place on admission: Code(s): Z97.8 - Presence of other specified devices Status: Acute (2) Catheter-associated urinary tract infection: Code(s): T83.511A - Infection and inflammatory reaction due to indwelling urethral catheter, initial encounter; N39.0 - Urinary tract infection, site not specified Status: Acute Plan # Chronic Jara catheter recently placed for urinary retention. # Reactive urinary sediment with pyuria suggestive of UTI. However, while patient has leukocytosis she is without fever or suprapubic/flank tenderness. Recent urine culture only with mixed organism growth. Be that as it may, consider recurrent CAUTI. # Chronic kidney disease. Plan: -- while awaiting current urine culture have recommended changing antibiotics to cefepime 2 g IV q.12 hours. -- further recommendations to follow. Thank you for the consult. Subjective Date/time seen: 04/27/25 10:11 Interval history: 04/27/2025: afebrile with normal leukocytosis. Energy improved. Presentation blood and urine cultures remain pending. Blood culture 04/25: Pending Urine culture 04/25: Pending Review of Systems Review of Systems: All systems reviewed & are unremarkable except as noted in HPI and below Exam Narrative: Awake and alert and interactive. No distress. Normocephalic without conjunctivitis. No respiratory distress. Abdomen without significant distention. No suprapubic or flank tenderness. Jara catheter in place. No rash. Objective Data Vital Signs Vital Signs: Vital Signs - 24 hr 04/26/25 11:04 04/26/25 11:22 04/26/25 12:01 Temperature 98.1 F Pulse Rate 92 Respiratory Rate 16 Blood Pressure 106/72 Pulse Oximetry 100 Oxygen Delivery Room Air Room Air 04/26/25 17:07 04/26/25 19:57 04/26/25 19:59 Temperature 97.2 F L 97.7 F Pulse Rate 90 94 95 Respiratory Rate 16 20 Blood Pressure 150/77 H 115/54 L Pulse Oximetry 100 99 Oxygen Delivery 04/26/25 23:44 04/27/25 04:00 04/27/25 08:22 Temperature 97.6 F 97.8 F Pulse Rate 85 86 93 Respiratory Rate 20 20 Blood Pressure 114/59 L 141/74 H 162/101 H Pulse Oximetry 98 94 98 Oxygen Delivery 04/27/25 08:23 Temperature Pulse Rate 93 Respiratory Rate Blood Pressure Pulse Oximetry Oxygen Delivery Intake/Output Intake/Output: Intake & Output 04/24/25 04/25/25 04/26/25 04/27/25 23:59 23:59 23:59 23:59 Intake Total 50 1420 540 Output Total 1100 400 Balance 50 320 140 Meds/Results Medications: Active Medications Generic Name Dose Route Start Last Admin Trade Name Freq PRN Reason Stop Dose Admin Acetaminophen 650 mg 04/25/25 20:45 04/26/25 08:32 Acetaminophen 325 Mg Tablet PO 650 mg Q6H PRN Administration Mild Pain (1-3) or Fever Hydrocodone Bitart/Acetaminophen 1 tab 04/26/25 19:47 04/27/25 01:57 Hydrocodone/Acetaminophen (*Crx) 5-325 Mg Tablet PO 1 tab Q6H PRN Administration Pain Rated 4-10 Atorvastatin Calcium 20 mg 04/25/25 21:00 04/26/25 19:59 Atorvastatin 20 Mg Tablet PO 20 mg HS USAMA Administration Buspirone HCl 10 mg 04/26/25 09:00 04/27/25 08:23 Buspirone Hcl 10 Mg Tablet PO 10 mg BID USAMA Administration Clonidine HCl 0.3 mg 04/26/25 09:00 04/27/25 08:23 Clonidine Hcl 0.1 Mg Tablet PO 0.3 mg BID USAMA Administration Dextrose 12.5 gm 04/25/25 19:17 Dextrose 50% 25 Gm/50 Ml Syringe IV PUSH PRN PRN Hypoglycemia Protocol Duloxetine HCl 60 mg 04/26/25 09:00 04/27/25 08:23 Duloxetine Hcl 60 Mg Capsule.Dr PO 60 mg DAILY USAMA Administration Enoxaparin Sodium 40 mg 04/26/25 09:00 04/27/25 08:23 Enoxaparin 40 Mg/0.4 Ml Syringe SUB-Q 40 mg DAILY USAMA Administration Gabapentin 300 mg 04/26/25 09:00 04/27/25 08:23 Gabapentin 300 Mg Capsule PO 300 mg DAILY USAMA Administration Glucagon 1 mg 04/25/25 19:17 Glucagon For Inj 1 Mg Vial IM PRN PRN Hypoglycemia Protocol Glucose 15 gm 04/25/25 19:17 Glucose Oral Gel 15 Gm Of Glucse In 37.5 Gm Tube PO PRN PRN Hypoglycemia Protocol Dextrose 1,000 mls @ 100 mls/hr 04/25/25 19:17 Dextrose 5% 1,000 Ml IVPB PRN PRN Hypoglycemia Protocol Cefepime HCl 1 gm/ Sodium 50 mls @ 100 mls/hr 04/26/25 14:00 04/27/25 08:24 Chloride IVPB 100 mls/hr Q12HR USAMA Administration Metoprolol Tartrate 100 mg 04/26/25 09:00 04/27/25 08:23 Metoprolol Tartrate 50 Mg Tab PO 100 mg Q12HR USAMA Administration Pantoprazole Sodium 40 mg 04/26/25 09:00 04/27/25 08:23 Pantoprazole 40 Mg Tablet PO 40 mg DAILY USAMA Administration Radiology Results: ITS Impressions Chest X-Ray 04/25/25 13:20 IMPRESSION: 1: NO ACUTE CARDIOPULMONARY DISEASE. Venous Doppler Study 04/25/25 17:33 IMPRESSION: 1: No lower extremity deep venous thrombosis. Abdomen X-Ray 04/26/25 15:19 IMPRESSION: 1: No acute abdominal abnormality identified. 2: Porcelain gallbladder. Labs Labs: Laboratory Results - last 24 hr 04/26/25 04/26/25 04/26/25 12:03 17:09 20:26 WBC RBC Hgb Hct MCV MCH MCHC RDW Plt Count MPV Immature Gran % (Auto) Neut % (Auto) Lymph % (Auto) [place] % (Auto) Eos % (Auto) Baso % (Auto) Lymph # (Auto) [place] # (Auto) Eos # (Auto) Baso # (Auto) Abs Immat Gran (auto) Absolute Neuts (auto) Absolute Nucleated RBC Nucleated RBC % Sodium Potassium Chloride Carbon Dioxide Anion Gap BUN Creatinine Estim Creat Clear Calc Estimated GFR Glucose POC Capillary Glucose 155 H 115 H 166 H Calcium Magnesium Total Bilirubin AST ALT Alkaline Phosphatase Total Protein Albumin 04/27/25 04/27/25 04:47 07:54 WBC 10.5 H RBC 3.50 L Hgb 10.2 L Hct 32.0 L MCV 91.4 MCH 29.1 MCHC 31.9 L RDW 14.8 H Plt Count 335 MPV 9.6 Immature Gran % (Auto) 0.3 Neut % (Auto) 46.2 Lymph % (Auto) 36.6 [place] % (Auto) 7.9 Eos % (Auto) 8.4 H Baso % (Auto) 0.6 Lymph # (Auto) 3.84 H [place] # (Auto) 0.8 H Eos # (Auto) 0.9 H Baso # (Auto) 0.1 Abs Immat Gran (auto) 0.03 Absolute Neuts (auto) 4.8 Absolute Nucleated RBC 0.000 Nucleated RBC % 0.0 Sodium 136 L Potassium 3.8 Chloride 102 Carbon Dioxide 27 Anion Gap 7 BUN 32 H Creatinine 1.17 H Estim Creat Clear Calc 34 Estimated GFR 45 L Glucose 150 H POC Capillary Glucose 136 H Calcium 9.1 Magnesium 1.5 L Total Bilirubin 0.2 AST 16 ALT 10 Alkaline Phosphatase 52 Total Protein 6.3 Albumin 3.2 L
--- NOTE | 2025-04-27 11:37 | P.PNIM_ITS ---
Progress Note: A&P Assessment and Plan (1) UTI (urinary tract infection): Qualifiers: Encounter type: initial encounter Indwelling urinary catheter type: indwelling urethral catheter Urinary tract infection type: catheter-associated UTI Qualified Code(s): T83.511A - Infection and inflammatory reaction due to indwelling urethral catheter, initial encounter; N39.0 - Urinary tract inf ection, site not specified Code(s): N39.0 - Urinary tract infection, site not specified Status: Acute Assessment and Plan: Recurrent UTI associated with catheter Leukocytosis noted - UA: Cloudy, 2+ glucose, 3+ leuk esterase, 21-50 RBC, greater than 100 WBC, no epithelial cells or bacteria, yeast present - UC pending, obtained on 04/25 Patient was on Cefdinir and Doxycycline after discharged despite which she presented again for UTI ID evaluated and started patient on Cefepime pending urine and blood culture (2) Edema of both lower legs: Code(s): R60.0 - Localized edema Status: Acute Assessment and Plan: -bilateral swelling, right larger than left -hx of venous stasis ulcer -venous duplex ultrasound bilateral negative for DVT (3) Jara catheter in place on admission: Code(s): Z97.8 - Presence of other specified devices Status: Acute Assessment and Plan: -in place during admission -new Jara exchange completed in the ED -continue to assess current need for Jara Urology consulted (4) Failure to thrive: Status: Acute Assessment and Plan: -pt with several past admissions -could be secondary to caregiver strain -consult care coordination for LTC information PT/OT (5) Essential (primary) hypertension: Code(s): I10 - Essential (primary) hypertension Status: Chronic Assessment and Plan: titrate home meds with clinical course (6) DM2 (diabetes mellitus, type 2): Qualifiers: Diabetes mellitus director long term care insulin use: without senior care use Diabetes mellitus complication status: with hyperglycemia Qualified Code(s): E11.65 - Type 2 diabetes mellitus with hyperglycemia Code(s): E11.9 - Type 2 diabetes mellitus without complications Status: Chronic Assessment and Plan: -hold home medication for Farxiga -bedside glucose management -bedside hypoglycemia protocol (7) Generalized weakness: Code(s): R53.1 - Weakness Status: Acute Assessment and Plan: -unable to ambulate or stand at home s/p most recent discharge to home PT/OT consulted (8) Chronic kidney disease (CKD) stage G3a/A1, moderately decreased glomerular filtration rate (GFR) between 45-59 mL/min/1.73 square meter and albuminuria creatinine ratio less than 30 mg/g: Code(s): N18.31 - Chronic kidney disease, stage 3a Status: Acute Assessment and Plan: Cr 1.17 today Patient having adequate oral intake - baseline creatinine: 0.7 - 0.9 - hx of recent RENEA that responded well to fluids and was suspected secondary to dehydration -s/p IVF - hold Farxiga and spironolactone, resume when appropriate monitor renal function (9) Hyponatremia: Code(s): E87.1 - Hypo-osmolality and hyponatremia Status: Acute Assessment and Plan: -chronic s/s CKD resolved, Na 136 (10) Urinary retention: Onset Date: ~03/2025 Code(s): R33.9 - Retention of urine, unspecified Status: Acute Assessment and Plan: Jara placed during previous admission from 03/26/25 - 04/03/25 - outpatient follow-up with Urology on 04/22, pt did not make apt - exchanged Jara today, 04/25, due to concerns for UTI -pt will need new apt with urology (11) Yeast UTI: Code(s): B37.49 - Other urogenital candidiasis Status: Acute Assessment and Plan: -could be secondary to medication Farxiga -hold home medication at this time -fluconazole 150 mg p.o. once, may repeat dose in 72 hours Plan Hematuria US renal ordered Urology consulted Urinalysis monitor VTE Prophylaxis: SVDs, Lovenox on hold due to hematuria Subjective Date/time seen: 04/27/25 11:37 Interval history: Comfortable at bedside Nurse noted she has bloody urine this morning urology consulted Exam Narrative: GENERAL: Ill appearing, and in no acute distress resting on stretcher HEAD: Normocephalic, atraumatic. EYES: PERRLA and EOMI. ENT: Nares clear, no rhinorrhea or epistaxis. Mucous membranes moist. NECK: Supple. CHEST: Clear to auscultation. No respiratory distress. HEART: Regular rate and rhythm. No murmur heard. Normal peripheral pulses. ABDOMEN: Soft, nontender, nondistended, normal active bowel sounds. EXTREMITIES: Normal range of motion. Plus one edema. SKIN: Warm, dry, no rash. Redness present to bilateral lower extremities with the right being greater than the left NEURO: No focal deficits. Alert and oriented x3. PSYCH: Normal mood and affect. Objective Data Vital Signs Vital Signs: Vital Signs - 24 hr 04/26/25 12:01 04/26/25 17:07 04/26/25 19:57 Temperature 98.1 F 97.2 F L 97.7 F Pulse Rate 92 90 94 Respiratory Rate 16 16 20 Blood Pressure 106/72 150/77 H 115/54 L Pulse Oximetry 100 100 99 Oxygen Delivery 04/26/25 19:59 04/26/25 23:44 04/27/25 04:00 Temperature 97.6 F 97.8 F Pulse Rate 95 85 86 Respiratory Rate 20 20 Blood Pressure 114/59 L 141/74 H Pulse Oximetry 98 94 Oxygen Delivery 04/27/25 08:20 04/27/25 08:22 04/27/25 08:23 Temperature Pulse Rate 93 93 Respiratory Rate Blood Pressure 162/101 H Pulse Oximetry 98 Oxygen Delivery Room Air Intake/Output Intake/Output: Intake & Output 04/24/25 04/25/25 04/26/25 04/27/25 23:59 23:59 23:59 23:59 Intake Total 50 1420 540 Output Total 1100 400 Balance 50 320 140 Meds/Results Medications: Active Medications Generic Name Dose Route Start Last Admin Trade Name Freq PRN Reason Stop Dose Admin Acetaminophen 650 mg 04/25/25 20:45 04/26/25 08:32 Acetaminophen 325 Mg Tablet PO 650 mg Q6H PRN Administration Mild Pain (1-3) or Fever Hydrocodone Bitart/Acetaminophen 1 tab 04/26/25 19:47 04/27/25 01:57 Hydrocodone/Acetaminophen (*Crx) 5-325 Mg Tablet PO 1 tab Q6H PRN Administration Pain Rated 4-10 Atorvastatin Calcium 20 mg 04/25/25 21:00 04/26/25 19:59 Atorvastatin 20 Mg Tablet PO 20 mg HS USAMA Administration Buspirone HCl 10 mg 04/26/25 09:00 04/27/25 08:23 Buspirone Hcl 10 Mg Tablet PO 10 mg BID USAMA Administration Clonidine HCl 0.3 mg 04/26/25 09:00 04/27/25 08:23 Clonidine Hcl 0.1 Mg Tablet PO 0.3 mg BID USAMA Administration Dextrose 12.5 gm 04/25/25 19:17 Dextrose 50% 25 Gm/50 Ml Syringe IV PUSH PRN PRN Hypoglycemia Protocol Duloxetine HCl 60 mg 04/26/25 09:00 04/27/25 08:23 Duloxetine Hcl 60 Mg Capsule.Dr PO 60 mg DAILY USAMA Administration Enoxaparin Sodium 40 mg 04/26/25 09:00 04/27/25 08:23 Enoxaparin 40 Mg/0.4 Ml Syringe SUB-Q 40 mg DAILY USAMA Administration Gabapentin 300 mg 04/26/25 09:00 04/27/25 08:23 Gabapentin 300 Mg Capsule PO 300 mg DAILY USMAA Administration Glucagon 1 mg 04/25/25 19:17 Glucagon For Inj 1 Mg Vial IM PRN PRN Hypoglycemia Protocol Glucose 15 gm 04/25/25 19:17 Glucose Oral Gel 15 Gm Of Glucse In 37.5 Gm Tube PO PRN PRN Hypoglycemia Protocol Dextrose 1,000 mls @ 100 mls/hr 04/25/25 19:17 Dextrose 5% 1,000 Ml IVPB PRN PRN Hypoglycemia Protocol Cefepime HCl 1 gm/ Sodium 50 mls @ 100 mls/hr 04/26/25 14:00 04/27/25 08:24 Chloride IVPB 100 mls/hr Q12HR USAMA Administration Metoprolol Tartrate 100 mg 04/26/25 09:00 04/27/25 08:23 Metoprolol Tartrate 50 Mg Tab PO 100 mg Q12HR USAMA Administration Pantoprazole Sodium 40 mg 04/26/25 09:00 04/27/25 08:23 Pantoprazole 40 Mg Tablet PO 40 mg DAILY USAMA Administration Radiology Results: ITS Impressions Chest X-Ray 04/25/25 13:20 IMPRESSION: 1: NO ACUTE CARDIOPULMONARY DISEASE. Venous Doppler Study 04/25/25 17:33 IMPRESSION: 1: No lower extremity deep venous thrombosis. Abdomen X-Ray 04/26/25 15:19 IMPRESSION: 1: No acute abdominal abnormality identified. 2: Porcelain gallbladder. Labs Labs: Laboratory Results - last 24 hr 04/26/25 04/26/25 04/26/25 12:03 17:09 20:26 WBC RBC Hgb Hct MCV MCH MCHC RDW Plt Count MPV Immature Gran % (Auto) Neut % (Auto) Lymph % (Auto) [place] % (Auto) Eos % (Auto) Baso % (Auto) Lymph # (Auto) [place] # (Auto) Eos # (Auto) Baso # (Auto) Abs Immat Gran (auto) Absolute Neuts (auto) Absolute Nucleated RBC Nucleated RBC % Sodium Potassium Chloride Carbon Dioxide Anion Gap BUN Creatinine Estim Creat Clear Calc Estimated GFR Glucose POC Capillary Glucose 155 H 115 H 166 H Calcium Magnesium Total Bilirubin AST ALT Alkaline Phosphatase Total Protein Albumin 04/27/25 04/27/25 04/27/25 04:47 07:54 11:20 WBC 10.5 H RBC 3.50 L Hgb 10.2 L Hct 32.0 L MCV 91.4 MCH 29.1 MCHC 31.9 L RDW 14.8 H Plt Count 335 MPV 9.6 Immature Gran % (Auto) 0.3 Neut % (Auto) 46.2 Lymph % (Auto) 36.6 [place] % (Auto) 7.9 Eos % (Auto) 8.4 H Baso % (Auto) 0.6 Lymph # (Auto) 3.84 H [place] # (Auto) 0.8 H Eos # (Auto) 0.9 H Baso # (Auto) 0.1 Abs Immat Gran (auto) 0.03 Absolute Neuts (auto) 4.8 Absolute Nucleated RBC 0.000 Nucleated RBC % 0.0 Sodium 136 L Potassium 3.8 Chloride 102 Carbon Dioxide 27 Anion Gap 7 BUN 32 H Creatinine 1.17 H Estim Creat Clear Calc 34 Estimated GFR 45 L Glucose 150 H POC Capillary Glucose 136 H 153 H Calcium 9.1 Magnesium 1.5 L Total Bilirubin 0.2 AST 16 ALT 10 Alkaline Phosphatase 52 Total Protein 6.3 Albumin 3.2 L Quality VTE Prophylaxis VTE prophylaxis: pharmacologic ordered
[2025-04-27] MEDS: MAGNESIUM SULF 2 GM/WATER 50ML 2 GM/50 ML BAG IVPB (12:59)
--- NOTE | 2025-04-27 14:30 | WPDUROPN2 ---
Progress Note: A&P Assessment and Plan (1) Urinary retention: Onset Date: ~03/2025 Code(s): R33.9 - Retention of urine, unspecified Status: Acute (2) Catheter-associated urinary tract infection: Qualifiers: Encounter type: subsequent encounter Indwelling urinary catheter type: indwelling urethral catheter Qualified Code(s): T83.511D - Infection and inflammatory reaction due to indwelling urethral catheter, subsequent encounter; N39.0 - Urinary tract infection, site not specified Code(s): T83.511A - Infection and inflammatory reaction due to indwelling urethral catheter, initial encounter; N39.0 - Urinary tract infection, site not specified Status: Acute Plan Ms. Donald is a 75-year-old female with urinary retention and recurrent UTIs, currently admitted for weakness. 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 Current lab work is concerning for a urinary tract infection. Blood and urine cultures are pending. - Jara removed 04/27/25 AM for trial of void. Per nursing staff, she was able to void spontaneously this morning on BSC - Continue to perform timed voids every 3 hours during the day using a clock, rather than relying on the sensation of bladder fullness. Caregivers/nursing staff will need to assist her with this. - She should use a toilet or bedside commode to utilize gravity to help relax the pelvic floor. - Continue culture-directed antibiotics for suspected UTI. ID has been consulted. - 04/26/25 KUB --> Moderate colonic fecal loading. Likely contributing to urinary retention episodes. Recommend scheduled bowel regimen. No acute urologic surgical intervention is indicated. Inpatient urology to follow peripherally. Please call with questions. Subjective Subjective Date/Time Seen: 04/27/25 14:30 Interval history: NAEO, afebrile Jara was removed early this morning for void trial She was able to void spontaneously She has had some hematuria, likely 2/2 catheter cystitis but denies any pain or spasm Exam Narrative: General: The patient is well-developed in no acute distress. Comfortable on exam. HEENT: Normocephalic, normal ear and nose structures Skin: Warm, dry, with no lesions seen on visible skin Lungs: Normal respiratory effort Heart: Appears well perfused Abdomen: Nondistended, nontender Back: No CVA tenderness Suprapubic area: Nondistended Extremities: Upper with no deformities. Neurologic: The patient is oriented to person, place. Normal mood and affect. Objective Data Vital Signs Vital Signs: Vital Signs - 24 hr 04/26/25 17:07 04/26/25 19:57 04/26/25 19:59 Temperature 97.2 F L 97.7 F Pulse Rate 90 94 95 Respiratory Rate 16 20 Blood Pressure 150/77 H 115/54 L Pulse Oximetry 100 99 Oxygen Delivery 04/26/25 23:44 04/27/25 04:00 04/27/25 08:20 Temperature 97.6 F 97.8 F Pulse Rate 85 86 Respiratory Rate 20 20 Blood Pressure 114/59 L 141/74 H Pulse Oximetry 98 94 Oxygen Delivery Room Air 04/27/25 08:22 04/27/25 08:23 Temperature Pulse Rate 93 93 Respiratory Rate Blood Pressure 162/101 H Pulse Oximetry 98 Oxygen Delivery Intake/Output Intake/Output: Intake & Output 04/24/25 04/25/25 04/26/25 04/27/25 23:59 23:59 23:59 23:59 Intake Total 50 1420 540 Output Total 1100 400 Balance 50 320 140 Meds/Results Medications: Active Medications Generic Name Dose Route Start Last Admin Trade Name Freq PRN Reason Stop Dose Admin Acetaminophen 650 mg 04/25/25 20:45 04/26/25 08:32 Acetaminophen 325 Mg Tablet PO 650 mg Q6H PRN Administration Mild Pain (1-3) or Fever Hydrocodone Bitart/Acetaminophen 1 tab 04/26/25 19:47 04/27/25 01:57 Hydrocodone/Acetaminophen (*Crx) 5-325 Mg Tablet PO 1 tab Q6H PRN Administration Pain Rated 4-10 Atorvastatin Calcium 20 mg 04/25/25 21:00 04/26/25 19:59 Atorvastatin 20 Mg Tablet PO 20 mg HS USAMA Administration Buspirone HCl 10 mg 04/26/25 09:00 04/27/25 08:23 Buspirone Hcl 10 Mg Tablet PO 10 mg BID USAMA Administration Clonidine HCl 0.3 mg 04/26/25 09:00 04/27/25 08:23 Clonidine Hcl 0.1 Mg Tablet PO 0.3 mg BID USAMA Administration Dextrose 12.5 gm 04/25/25 19:17 Dextrose 50% 25 Gm/50 Ml Syringe IV PUSH PRN PRN Hypoglycemia Protocol Duloxetine HCl 60 mg 04/26/25 09:00 04/27/25 08:23 Duloxetine Hcl 60 Mg Capsule.Dr PO 60 mg DAILY USAMA Administration Gabapentin 300 mg 04/26/25 09:00 04/27/25 08:23 Gabapentin 300 Mg Capsule PO 300 mg DAILY USAMA Administration Glucagon 1 mg 04/25/25 19:17 Glucagon For Inj 1 Mg Vial IM PRN PRN Hypoglycemia Protocol Glucose 15 gm 04/25/25 19:17 Glucose Oral Gel 15 Gm Of Glucse In 37.5 Gm Tube PO PRN PRN Hypoglycemia Protocol Dextrose 1,000 mls @ 100 mls/hr 04/25/25 19:17 Dextrose 5% 1,000 Ml IVPB PRN PRN Hypoglycemia Protocol Cefepime HCl 1 gm/ Sodium 50 mls @ 100 mls/hr 04/26/25 14:00 04/27/25 08:24 Chloride IVPB 100 mls/hr Q12HR USAMA Administration Magnesium Sulfate 2 gm in 50 mls @ 25 mls/hr 04/27/25 12:45 04/27/25 12:59 Magnesium Sulf 2 Gm/Water 50ml IVPB 04/27/25 14:44 25 mls/hr ONCE ONE Administration Metoprolol Tartrate 100 mg 04/26/25 09:00 04/27/25 08:23 Metoprolol Tartrate 50 Mg Tab PO 100 mg Q12HR USAMA Administration Pantoprazole Sodium 40 mg 04/26/25 09:00 04/27/25 08:23 Pantoprazole 40 Mg Tablet PO 40 mg DAILY USAMA Administration Radiology Results: ITS Impressions Chest X-Ray 04/25/25 13:20 IMPRESSION: 1: NO ACUTE CARDIOPULMONARY DISEASE. Venous Doppler Study 04/25/25 17:33 IMPRESSION: 1: No lower extremity deep venous thrombosis. Abdomen X-Ray 04/26/25 15:19 IMPRESSION: 1: No acute abdominal abnormality identified. 2: Porcelain gallbladder. Labs Labs: Laboratory Results - last 24 hr 04/26/25 04/26/25 04/27/25 17:09 20:26 04:47 WBC 10.5 H RBC 3.50 L Hgb 10.2 L Hct 32.0 L MCV 91.4 MCH 29.1 MCHC 31.9 L RDW 14.8 H Plt Count 335 MPV 9.6 Immature Gran % (Auto) 0.3 Neut % (Auto) 46.2 Lymph % (Auto) 36.6 [place] % (Auto) 7.9 Eos % (Auto) 8.4 H Baso % (Auto) 0.6 Lymph # (Auto) 3.84 H [place] # (Auto) 0.8 H Eos # (Auto) 0.9 H Baso # (Auto) 0.1 Abs Immat Gran (auto) 0.03 Absolute Neuts (auto) 4.8 Absolute Nucleated RBC 0.000 Nucleated RBC % 0.0 Sodium 136 L Potassium 3.8 Chloride 102 Carbon Dioxide 27 Anion Gap 7 BUN 32 H Creatinine 1.17 H Estim Creat Clear Calc 34 Estimated GFR 45 L Glucose 150 H POC Capillary Glucose 115 H 166 H Calcium 9.1 Magnesium 1.5 L Total Bilirubin 0.2 AST 16 ALT 10 Alkaline Phosphatase 52 Total Protein 6.3 Albumin 3.2 L 04/27/25 04/27/25 07:54 11:20 WBC RBC Hgb Hct MCV MCH MCHC RDW Plt Count MPV Immature Gran % (Auto) Neut % (Auto) Lymph % (Auto) [place] % (Auto) Eos % (Auto) Baso % (Auto) Lymph # (Auto) [place] # (Auto) Eos # (Auto) Baso # (Auto) Abs Immat Gran (auto) Absolute Neuts (auto) Absolute Nucleated RBC Nucleated RBC % Sodium Potassium Chloride Carbon Dioxide Anion Gap BUN Creatinine Estim Creat Clear Calc Estimated GFR Glucose POC Capillary Glucose 136 H 153 H Calcium Magnesium Total Bilirubin AST ALT Alkaline Phosphatase Total Protein Albumin
[2025-04-27 15:47] VITALS: BP 157/78; PULSE 94; RESP 16; TEMP 37; O2SAT 100
[2025-04-27 19:28] VITALS: BP 116/62; PULSE 88; RESP 18; TEMP 36.4; O2SAT 97
[2025-04-27 20:05] VITALS: PULSE 88
[2025-04-27] MEDS: ATORVASTATIN 20 MG TABLET PO (20:05)
[2025-04-27 22:10] LABS: Add Urine Microscopic? YES; Appearance Urine Clear (Clear); Glucose Urine UA 2+ mg/dL (Negative); Leukocyte Esterase Ur 1+ LEU/UL (Negative); Nitrate Urine Negative (Negative); Non Pathogenic Casts 0-2; Specific Grav Ur 1.012 (1.001-1.035)
[2025-04-28] VITALS (9 sets, daily range): BP systolic 97–167; BP diastolic 61–88; PULSE 83–89; RESP 12–18; TEMP 36.3–36.6; O2SAT 95–100
[2025-04-28 05:25] LABS: Hematocrit 35.5 % (37.0-47.0); Hemoglobin 11.2 g/dL (12.0-15.0); Immature Granulocyte Percent A 0.3 % (0-0.5); Lymphocytes Absolute Auto 3.84 K/mm3 (0.9-3.2); Mean Corpuscular HGB Conc 31.5 g/dl (32-36); Mean Corpuscular Hemoglobin 29.0 pg (26-34); Mean Corpuscular Volume 92.0 fl (80-100); Nucleated Red Blood Cells Absolute Auto 0.000 K/mm3 (0.0-0.012); Nucleated Red Blood Cells Perc 0.0 % (0.0-0.2); Platelet Count Result 380 k/mm3 (150-375); Red Blood Count 3.86 M/mm3 (4.2-5.4); White Blood Count 11.6 K/mm3 (4.5-10.0)
[2025-04-28 05:47] LABS: Alanine Aminotransferase 12 U/L (6-35); Albumin Level 3.3 g/dL (3.5-5.1); Alkaline Phosphatase 51 U/L (38-126); Anion Gap 7 mmol/L (4-12); Aspartate Amino Transferase 24 U/L (14-36); Bilirubin,Total 0.4 mg/dL (0.2-1.3); Blood Urea Nitrogen 19 mg/dL (7-17); Calcium 9.3 mg/dL (8.4-10.2); Carbon Dioxide 27 mmol/L (22-30); Chloride 104 mmol/L (98-107); Estimated CRCL calculation 40 ml/min; Estimated Glomerular Filt Rate 55; Glucose 122 mg/dL (65-110); Magnesium 1.9 mg/dL (1.6-2.3); Potassium 3.8 mmol/L (3.4-5.0); Sodium 138 mmol/L (137-145); Total Protein 6.6 g/dL (6.3-8.2)
[2025-04-28] MEDS: CEFEPIME 1 GM in SODIUM CHLORIDE 0.9% IV 50 ML 100 ML IVPB ×2 (08:09→21:00)
[2025-04-28] MEDS: DULoxetine HCL 60 MG CAPSULE.DR PO (08:09)
[2025-04-28] MEDS: METOPROLOL TARTRATE 50 MG TAB 100 MG PO (08:09)
[2025-04-28] MEDS: GABAPENTIN 300 MG CAPSULE PO (08:09)
[2025-04-28] MEDS: PANTOPRAZOLE 40 MG TABLET PO (08:09)
--- NOTE | 2025-04-28 10:39 | WPDINFPN2 ---
Progress Note: A&P Assessment and Plan (1) Jara catheter in place on admission: Code(s): Z97.8 - Presence of other specified devices Status: Acute (2) Catheter-associated urinary tract infection: Qualifiers: Indwelling urinary catheter type: indwelling urethral catheter Encounter type: subsequent encounter Qualified Code(s): T83.511D - Infection and inflammatory reaction due to indwelling urethral catheter, subsequent encounter; N39.0 - Urinary tract infection, site not specified Code(s): T83.511A - Infection and inflammatory reaction due to indwelling urethral catheter, initial encounter; N39.0 - Urinary tract infection, site not specified Status: Acute Plan # Chronic Jara catheter recently placed for urinary retention. # Reactive urinary sediment with pyuria suggestive of UTI. However, while patient has leukocytosis she is without fever or suprapubic/flank tenderness. Recent urine culture only with mixed organism growth. Be that as it may, consider recurrent CAUTI. -- urine culture reported as early growth. # Chronic kidney disease. Plan: -- while awaiting current urine culture have recommended changing antibiotics to cefepime 2 g IV q.12 hours. -- further recommendations to follow. Thank you for the consult. Subjective Date/time seen: 04/28/25 10:39 Interval history: 04/27/2025: afebrile with normal leukocytosis. Energy improved. Presentation blood and urine cultures remain pending. 04/28/2025: Afebrile and clinically doing well. Feels stronger today. Urine culture reported with early growth. Blood culture 04/25: Pending Urine culture 04/25: Early growth. Review of Systems Review of Systems: All systems reviewed & are unremarkable except as noted in HPI and below Exam Narrative: Awake and alert and interactive. No distress. Feels stronger. Normocephalic without conjunctivitis. No respiratory distress. Abdomen without significant distention. No suprapubic or flank tenderness. Jara catheter in place. No rash. Objective Data Vital Signs Vital Signs: Vital Signs - 24 hr 04/27/25 15:47 04/27/25 19:28 04/27/25 20:05 Temperature 98.6 F 97.6 F Pulse Rate 94 88 88 Respiratory Rate 16 18 Blood Pressure 157/78 H 116/62 Pulse Oximetry 100 97 04/28/25 00:00 04/28/25 04:00 04/28/25 08:07 Temperature 97.6 F 97.7 F 97.8 F Pulse Rate 83 88 89 Respiratory Rate 18 18 16 Blood Pressure 132/61 167/72 H 142/88 H Pulse Oximetry 97 100 96 04/28/25 08:09 Temperature Pulse Rate 89 Respiratory Rate Blood Pressure Pulse Oximetry Intake/Output Intake/Output: Intake & Output 04/25/25 04/26/25 04/27/25 04/28/25 23:59 23:59 23:59 23:59 Intake Total 50 1420 2100 580 Output Total 1100 400 Balance 50 320 1700 580 Meds/Results Medications: Active Medications Generic Name Dose Route Start Last Admin Trade Name Freq PRN Reason Stop Dose Admin Acetaminophen 650 mg 04/25/25 20:45 04/26/25 08:32 Acetaminophen 325 Mg Tablet PO 650 mg Q6H PRN Administration Mild Pain (1-3) or Fever Hydrocodone Bitart/Acetaminophen 1 tab 04/26/25 19:47 04/27/25 20:05 Hydrocodone/Acetaminophen (*Crx) 5-325 Mg Tablet PO 1 tab Q6H PRN Administration Pain Rated 4-10 Atorvastatin Calcium 20 mg 04/25/25 21:00 04/27/25 20:05 Atorvastatin 20 Mg Tablet PO 20 mg HS USAMA Administration Buspirone HCl 10 mg 04/26/25 09:00 04/28/25 08:09 Buspirone Hcl 10 Mg Tablet PO 10 mg BID USAMA Administration Clonidine HCl 0.3 mg 04/26/25 09:00 04/28/25 08:09 Clonidine Hcl 0.1 Mg Tablet PO 0.3 mg BID USAMA Administration Dextrose 12.5 gm 04/25/25 19:17 Dextrose 50% 25 Gm/50 Ml Syringe IV PUSH PRN PRN Hypoglycemia Protocol Duloxetine HCl 60 mg 04/26/25 09:00 04/28/25 08:09 Duloxetine Hcl 60 Mg Capsule.Dr PO 60 mg DAILY USAMA Administration Gabapentin 300 mg 04/26/25 09:00 04/28/25 08:09 Gabapentin 300 Mg Capsule PO 300 mg DAILY USAMA Administration Glucagon 1 mg 04/25/25 19:17 Glucagon For Inj 1 Mg Vial IM PRN PRN Hypoglycemia Protocol Glucose 15 gm 04/25/25 19:17 Glucose Oral Gel 15 Gm Of Glucse In 37.5 Gm Tube PO PRN PRN Hypoglycemia Protocol Dextrose 1,000 mls @ 100 mls/hr 04/25/25 19:17 Dextrose 5% 1,000 Ml IVPB PRN PRN Hypoglycemia Protocol Cefepime HCl 1 gm/ Sodium 50 mls @ 100 mls/hr 04/26/25 14:00 04/28/25 08:09 Chloride IVPB 100 mls/hr Q12HR USAMA Administration Metoprolol Tartrate 100 mg 04/26/25 09:00 04/28/25 08:09 Metoprolol Tartrate 50 Mg Tab PO 100 mg Q12HR USAMA Administration Pantoprazole Sodium 40 mg 04/26/25 09:00 04/28/25 08:09 Pantoprazole 40 Mg Tablet PO 40 mg DAILY USAMA Administration Radiology Results: ITS Impressions Chest X-Ray 04/25/25 13:20 IMPRESSION: 1: NO ACUTE CARDIOPULMONARY DISEASE. Venous Doppler Study 04/25/25 17:33 IMPRESSION: 1: No lower extremity deep venous thrombosis. Abdomen X-Ray 04/26/25 15:19 IMPRESSION: 1: No acute abdominal abnormality identified. 2: Porcelain gallbladder. Renal Ultrasound 04/27/25 15:41 Impression: 1: Trabeculated bladder appearance with thickening. Focal thickening more prominent superiorly on the right. Cannot exclude transitional cell carcinoma possibly superimposed on cystitis. Recommend urology consultation. Labs Labs: Laboratory Results - last 24 hr 04/27/25 04/27/25 04/27/25 11:20 16:48 19:36 WBC RBC Hgb Hct MCV MCH MCHC RDW Plt Count MPV Immature Gran % (Auto) Neut % (Auto) Lymph % (Auto) [place] % (Auto) Eos % (Auto) Baso % (Auto) Lymph # (Auto) [place] # (Auto) Eos # (Auto) Baso # (Auto) Abs Immat Gran (auto) Absolute Neuts (auto) Absolute Nucleated RBC Nucleated RBC % Sodium Potassium Chloride Carbon Dioxide Anion Gap BUN Creatinine Estim Creat Clear Calc Estimated GFR Glucose POC Capillary Glucose 153 H 121 H 163 H Calcium Magnesium Total Bilirubin AST ALT Alkaline Phosphatase Total Protein Albumin Urine Color Urine Appearance Urine pH Ur Specific [place] Urine Protein Urine Glucose (UA) Urine Ketones Ur Blood (Man) Urine Nitrate Urine Bilirubin Urine Urobilinogen Ur Leukocyte Esterase Urine RBC Urine WBC Ur Squamous Epith Cells Urine Bacteria Urine Casts 04/27/25 04/28/25 04/28/25 21:59 04:51 07:57 WBC 11.6 H RBC 3.86 L Hgb 11.2 L Hct 35.5 L MCV 92.0 MCH 29.0 MCHC 31.5 L RDW 14.6 H Plt Count 380 H MPV 10.0 Immature Gran % (Auto) 0.3 Neut % (Auto) 48.8 Lymph % (Auto) 33.2 [place] % (Auto) 9.2 H Eos % (Auto) 7.8 H Baso % (Auto) 0.7 Lymph # (Auto) 3.84 H [place] # (Auto) 1.1 H Eos # (Auto) 0.9 H Baso # (Auto) 0.1 Abs Immat Gran (auto) 0.04 H Absolute Neuts (auto) 5.7 Absolute Nucleated RBC 0.000 Nucleated RBC % 0.0 Sodium 138 Potassium 3.8 Chloride 104 Carbon Dioxide 27 Anion Gap 7 BUN 19 H D Creatinine 0.99 Estim Creat Clear Calc 40 Estimated GFR 55 L Glucose 122 H POC Capillary Glucose 139 H Calcium 9.3 Magnesium 1.9 Total Bilirubin 0.4 AST 24 ALT 12 Alkaline Phosphatase 51 Total Protein 6.6 Albumin 3.3 L Urine Color Yellow Urine Appearance Clear Urine pH 6.5 Ur Specific [place] 1.012 Urine Protein Negative Urine Glucose (UA) 2+ H Urine Ketones Negative Ur Blood (Man) 2+ H Urine Nitrate Negative Urine Bilirubin Negative Urine Urobilinogen 0.2 Ur Leukocyte Esterase 1+ H Urine RBC >100 H Urine WBC 11-20 H Ur Squamous Epith Cells None seen Urine Bacteria None seen Urine Casts 0-2
--- NOTE | 2025-04-28 11:10 | P.PNIM_ITS ---
Progress Note: A&P Assessment and Plan (1) UTI (urinary tract infection): Qualifiers: Encounter type: initial encounter Indwelling urinary catheter type: indwelling urethral catheter Urinary tract infection type: catheter-associated UTI Qualified Code(s): T83.511A - Infection and inflammatory reaction due to indwelling urethral catheter, initial encounter; N39.0 - Urinary tract inf ection, site not specified Code(s): N39.0 - Urinary tract infection, site not specified Status: Acute Assessment and Plan: Recurrent UTI associated with catheter Leukocytosis noted - UA: Cloudy, 2+ glucose, 3+ leuk esterase, 21-50 RBC, greater than 100 WBC, no epithelial cells or bacteria, yeast present - UC pending, obtained on 04/25 Patient was on Cefdinir and Doxycycline after discharged despite which she presented again for UTI ID evaluated and started patient on Cefepime pending urine and blood culture 04/28/25: * Continue Cefepime as per ID recommendation. * Await results of urine culture and blood cultures. (2) Edema of both lower legs: Code(s): R60.0 - Localized edema Status: Acute Assessment and Plan: -bilateral swelling, right larger than left -hx of venous stasis ulcer -venous duplex ultrasound bilateral negative for DVT 04/28/25: * Elevate legs for edema. (3) Jara catheter in place on admission: Code(s): Z97.8 - Presence of other specified devices Status: Acute Assessment and Plan: -in place during admission -new Jara exchange completed in the ED -continue to assess current need for Jara Urology consulted 04/28/25: * Pt's catheter was changed out on 04/25/25. * Urology evaluated and recommend continuing timed voids every3 hours during the day and await culture directed abx. (4) Failure to thrive: Status: Acute Assessment and Plan: -pt with several past admissions -could be secondary to caregiver strain -consult care coordination for LTC information PT/OT 04/28/25: * Pt is accepted at [facility] at discharge (5) Essential (primary) hypertension: Code(s): I10 - Essential (primary) hypertension Status: Chronic Assessment and Plan: titrate home meds with clinical course 04/28/25: * Stable BP's * Continue current regimen. (6) DM2 (diabetes mellitus, type 2): Qualifiers: Diabetes mellitus penitentiary insulin use: without penitentiary use Diabetes mellitus complication status: with hyperglycemia Qualified Code(s): E11.65 - Type 2 diabetes mellitus with hyperglycemia Code(s): E11.9 - Type 2 diabetes mellitus without complications Status: Chronic Assessment and Plan: -hold home medication for Farxiga -bedside glucose management -bedside hypoglycemia protocol 04/28/25: * Continue all current regimen treatments. (7) Generalized weakness: Code(s): R53.1 - Weakness Status: Acute Assessment and Plan: -unable to ambulate or stand at home s/p most recent discharge to home PT/OT consulted 04/28/25: * Pt to discharge to [facility]. (8) Chronic kidney disease (CKD) stage G3a/A1, moderately decreased glomerular filtration rate (GFR) between 45-59 mL/min/1.73 square meter and albuminuria creatinine ratio less than 30 mg/g: Code(s): N18.31 - Chronic kidney disease, stage 3a Status: Acute Assessment and Plan: Cr 1.17 today Patient having adequate oral intake - baseline creatinine: 0.7 - 0.9 - hx of recent RENEA that responded well to fluids and was suspected secondary to dehydration -s/p IVF - hold Farxiga and spironolactone, resume when appropriate monitor renal function 04/28/25: * At baseline with normal renal function of 0.99/19. (9) Hyponatremia: Code(s): E87.1 - Hypo-osmolality and hyponatremia Status: Resolved Assessment and Plan: -chronic s/s CKD resolved, Na 136 (10) Urinary retention: Onset Date: ~03/2025 Code(s): R33.9 - Retention of urine, unspecified Status: Acute Assessment and Plan: Jara placed during previous admission from 03/26/25 - 04/03/25 - outpatient follow-up with Urology on 04/22, pt did not make apt - exchanged Jara today, 04/25, due to concerns for UTI -pt will need new apt with urology (11) Yeast UTI: Code(s): B37.49 - Other urogenital candidiasis Status: Acute Assessment and Plan: -could be secondary to medication Farxiga -hold home medication at this time -fluconazole 150 mg p.o. once, may repeat dose in 72 hours Plan Time Spent With Patient Time with patient: 15 - 25 minutes Subjective Date/time seen: 04/28/25 11:10 Interval history: This pt is examined at the bedside today in interval assessment. She has no acute complaints and due to her chronic indwelling catheter and her repeat UTI's we are currently awaiting her Urine culture results. VSS and no new complaints or symptoms to report. Review of Systems Review of Systems: All systems reviewed & are unremarkable except as noted in HPI and below Exam Narrative: GENERAL: Ill appearing, and in no acute distress resting on stretcher HEAD: Normocephalic, atraumatic. EYES: PERRLA and EOMI. ENT: Nares clear, no rhinorrhea or epistaxis. Mucous membranes moist. NECK: Supple. CHEST: Clear to auscultation. No respiratory distress. HEART: Regular rate and rhythm. No murmur heard. Normal peripheral pulses. ABDOMEN: Soft, nontender, nondistended, normal active bowel sounds. EXTREMITIES: Normal range of motion. Plus one edema. SKIN: Warm, dry, no rash. Redness present to bilateral lower extremities with the right being greater than the left NEURO: No focal deficits. Alert and oriented x3. PSYCH: Normal mood and affect. Objective Data Vital Signs Vital Signs: Vital Signs - 24 hr 04/27/25 15:47 04/27/25 19:28 04/27/25 20:05 Temperature 98.6 F 97.6 F Pulse Rate 94 88 88 Respiratory Rate 16 18 Blood Pressure 157/78 H 116/62 Pulse Oximetry 100 97 04/28/25 00:00 04/28/25 04:00 04/28/25 08:07 Temperature 97.6 F 97.7 F 97.8 F Pulse Rate 83 88 89 Respiratory Rate 18 18 16 Blood Pressure 132/61 167/72 H 142/88 H Pulse Oximetry 97 100 96 04/28/25 08:09 Temperature Pulse Rate 89 Respiratory Rate Blood Pressure Pulse Oximetry Intake/Output Intake/Output: Intake & Output 04/25/25 04/26/25 04/27/25 04/28/25 23:59 23:59 23:59 23:59 Intake Total 50 1420 2100 580 Output Total 1100 400 Balance 50 320 1700 580 Meds/Results Medications: Active Medications Generic Name Dose Route Start Last Admin Trade Name Freq PRN Reason Stop Dose Admin Acetaminophen 650 mg 04/25/25 20:45 04/26/25 08:32 Acetaminophen 325 Mg Tablet PO 650 mg Q6H PRN Administration Mild Pain (1-3) or Fever Hydrocodone Bitart/Acetaminophen 1 tab 04/26/25 19:47 04/27/25 20:05 Hydrocodone/Acetaminophen (*Crx) 5-325 Mg Tablet PO 1 tab Q6H PRN Administration Pain Rated 4-10 Atorvastatin Calcium 20 mg 04/25/25 21:00 04/27/25 20:05 Atorvastatin 20 Mg Tablet PO 20 mg HS USAMA Administration Buspirone HCl 10 mg 04/26/25 09:00 04/28/25 08:09 Buspirone Hcl 10 Mg Tablet PO 10 mg BID USAMA Administration Clonidine HCl 0.3 mg 04/26/25 09:00 04/28/25 08:09 Clonidine Hcl 0.1 Mg Tablet PO 0.3 mg BID USAMA Administration Dextrose 12.5 gm 04/25/25 19:17 Dextrose 50% 25 Gm/50 Ml Syringe IV PUSH PRN PRN Hypoglycemia Protocol Duloxetine HCl 60 mg 04/26/25 09:00 04/28/25 08:09 Duloxetine Hcl 60 Mg Capsule.Dr PO 60 mg DAILY USAMA Administration Gabapentin 300 mg 04/26/25 09:00 04/28/25 08:09 Gabapentin 300 Mg Capsule PO 300 mg DAILY USAMA Administration Glucagon 1 mg 04/25/25 19:17 Glucagon For Inj 1 Mg Vial IM PRN PRN Hypoglycemia Protocol Glucose 15 gm 04/25/25 19:17 Glucose Oral Gel 15 Gm Of Glucse In 37.5 Gm Tube PO PRN PRN Hypoglycemia Protocol Dextrose 1,000 mls @ 100 mls/hr 04/25/25 19:17 Dextrose 5% 1,000 Ml IVPB PRN PRN Hypoglycemia Protocol Cefepime HCl 1 gm/ Sodium 50 mls @ 100 mls/hr 04/26/25 14:00 04/28/25 08:09 Chloride IVPB 100 mls/hr Q12HR USAMA Administration Metoprolol Tartrate 100 mg 04/26/25 09:00 04/28/25 08:09 Metoprolol Tartrate 50 Mg Tab PO 100 mg Q12HR USAMA Administration Pantoprazole Sodium 40 mg 04/26/25 09:00 04/28/25 08:09 Pantoprazole 40 Mg Tablet PO 40 mg DAILY USAMA Administration Radiology Results: ITS Impressions Chest X-Ray 04/25/25 13:20 IMPRESSION: 1: NO ACUTE CARDIOPULMONARY DISEASE. Venous Doppler Study 04/25/25 17:33 IMPRESSION: 1: No lower extremity deep venous thrombosis. Abdomen X-Ray 04/26/25 15:19 IMPRESSION: 1: No acute abdominal abnormality identified. 2: Porcelain gallbladder. Renal Ultrasound 04/27/25 15:41 Impression: 1: Trabeculated bladder appearance with thickening. Focal thickening more prominent superiorly on the right. Cannot exclude transitional cell carcinoma possibly superimposed on cystitis. Recommend urology consultation. Labs Labs: Laboratory Results - last 24 hr 04/27/25 04/27/25 04/27/25 11:20 16:48 19:36 WBC RBC Hgb Hct MCV MCH MCHC RDW Plt Count MPV Immature Gran % (Auto) Neut % (Auto) Lymph % (Auto) [place] % (Auto) Eos % (Auto) Baso % (Auto) Lymph # (Auto) [place] # (Auto) Eos # (Auto) Baso # (Auto) Abs Immat Gran (auto) Absolute Neuts (auto) Absolute Nucleated RBC Nucleated RBC % Sodium Potassium Chloride Carbon Dioxide Anion Gap BUN Creatinine Estim Creat Clear Calc Estimated GFR Glucose POC Capillary Glucose 153 H 121 H 163 H Calcium Magnesium Total Bilirubin AST ALT Alkaline Phosphatase Total Protein Albumin Urine Color Urine Appearance Urine pH Ur Specific [place] Urine Protein Urine Glucose (UA) Urine Ketones Ur Blood (Man) Urine Nitrate Urine Bilirubin Urine Urobilinogen Ur Leukocyte Esterase Urine RBC Urine WBC Ur Squamous Epith Cells Urine Bacteria Urine Casts 04/27/25 04/28/25 04/28/25 21:59 04:51 07:57 WBC 11.6 H RBC 3.86 L Hgb 11.2 L Hct 35.5 L MCV 92.0 MCH 29.0 MCHC 31.5 L RDW 14.6 H Plt Count 380 H MPV 10.0 Immature Gran % (Auto) 0.3 Neut % (Auto) 48.8 Lymph % (Auto) 33.2 [place] % (Auto) 9.2 H Eos % (Auto) 7.8 H Baso % (Auto) 0.7 Lymph # (Auto) 3.84 H [place] # (Auto) 1.1 H Eos # (Auto) 0.9 H Baso # (Auto) 0.1 Abs Immat Gran (auto) 0.04 H Absolute Neuts (auto) 5.7 Absolute Nucleated RBC 0.000 Nucleated RBC % 0.0 Sodium 138 Potassium 3.8 Chloride 104 Carbon Dioxide 27 Anion Gap 7 BUN 19 H D Creatinine 0.99 Estim Creat Clear Calc 40 Estimated GFR 55 L Glucose 122 H POC Capillary Glucose 139 H Calcium 9.3 Magnesium 1.9 Total Bilirubin 0.4 AST 24 ALT 12 Alkaline Phosphatase 51 Total Protein 6.6 Albumin 3.3 L Urine Color Yellow Urine Appearance Clear Urine pH 6.5 Ur Specific [place] 1.012 Urine Protein Negative Urine Glucose (UA) 2+ H Urine Ketones Negative Ur Blood (Man) 2+ H Urine Nitrate Negative Urine Bilirubin Negative Urine Urobilinogen 0.2 Ur Leukocyte Esterase 1+ H Urine RBC >100 H Urine WBC 11-20 H Ur Squamous Epith Cells None seen Urine Bacteria None seen Urine Casts 0-2 Quality VTE Prophylaxis VTE prophylaxis: pharmacologic ordered
[2025-04-28] MEDS: HYDROcodone/acetaminophen (*CRX) 5-325 MG TABLET 1 TAB PO (16:21)
[2025-04-28] MEDS: ATORVASTATIN 20 MG TABLET PO (21:00)
[2025-04-29] VITALS (7 sets, daily range): BP systolic 104–160; BP diastolic 56–79; PULSE 78–89; RESP 16–20; TEMP 36.1–36.8; O2SAT 99–100
[2025-04-29 05:30] LABS: Hematocrit 32.1 % (37.0-47.0); Hemoglobin 10.4 g/dL (12.0-15.0); Immature Granulocyte Percent A 0.4 % (0-0.5); Lymphocytes Absolute Auto 3.60 K/mm3 (0.9-3.2); Mean Corpuscular HGB Conc 32.4 g/dl (32-36); Mean Corpuscular Hemoglobin 29.3 pg (26-34); Mean Corpuscular Volume 90.4 fl (80-100); Nucleated Red Blood Cells Absolute Auto 0.000 K/mm3 (0.0-0.012); Nucleated Red Blood Cells Perc 0.0 % (0.0-0.2); Platelet Count Result 348 k/mm3 (150-375); Red Blood Count 3.55 M/mm3 (4.2-5.4); White Blood Count 11.8 K/mm3 (4.5-10.0)
[2025-04-29 05:41] LABS: Alanine Aminotransferase 9 U/L (6-35); Albumin Level 3.3 g/dL (3.5-5.1); Alkaline Phosphatase 49 U/L (38-126); Anion Gap 6 mmol/L (4-12); Aspartate Amino Transferase 18 U/L (14-36); Bilirubin,Total 0.3 mg/dL (0.2-1.3); Blood Urea Nitrogen 28 mg/dL (7-17); Calcium 9.1 mg/dL (8.4-10.2); Carbon Dioxide 27 mmol/L (22-30); Chloride 103 mmol/L (98-107); Estimated CRCL calculation 41 ml/min; Estimated Glomerular Filt Rate 57; Glucose 162 mg/dL (65-110); Potassium 4.1 mmol/L (3.4-5.0); Sodium 136 mmol/L (137-145); Total Protein 6.3 g/dL (6.3-8.2)
[2025-04-29] MEDS: GABAPENTIN 300 MG CAPSULE PO (08:16)
[2025-04-29] MEDS: DULoxetine HCL 60 MG CAPSULE.DR PO (08:16)
[2025-04-29] MEDS: METOPROLOL TARTRATE 50 MG TAB 100 MG PO ×2 (08:16→21:25)
[2025-04-29] MEDS: ENOXAPARIN 40 MG/0.4 ML SYRINGE SUB-Q (08:17)
[2025-04-29] MEDS: PANTOPRAZOLE 40 MG TABLET PO (08:17)
[2025-04-29] MEDS: CEFEPIME 1 GM in SODIUM CHLORIDE 0.9% IV 50 ML 100 ML IVPB ×2 (08:17→21:25)
--- NOTE | 2025-04-29 10:56 | WPDINFPN2 ---
Progress Note: A&P Assessment and Plan (1) Jara catheter in place on admission: Code(s): Z97.8 - Presence of other specified devices Status: Acute (2) Catheter-associated urinary tract infection: Qualifiers: Encounter type: subsequent encounter Indwelling urinary catheter type: indwelling urethral catheter Qualified Code(s): T83.511D - Infection and inflammatory reaction due to indwelling urethral catheter, subsequent encounter; N39.0 - Urinary tract infection, site not specified Code(s): T83.511A - Infection and inflammatory reaction due to indwelling urethral catheter, initial encounter; N39.0 - Urinary tract infection, site not specified Status: Acute Plan # Chronic Jara catheter recently placed for urinary retention. # Reactive urinary sediment with pyuria suggestive of UTI. However, while patient has leukocytosis she is without fever or suprapubic/flank tenderness. Recent urine culture only with mixed organism growth. Be that as it may, consider recurrent CAUTI. -- urine culture positive for Claudia albicans. Typically this represents Jara collecting system colonization; however, may be associated with active UTI and would treat. # Chronic kidney disease. Plan: --on cefepime 2 g IV q.12 hours, now day 4. plan to complete 7 days. -- would add oral fluconazole 100 mg p.o. Q 24 hours x14 days Patient was seen via video telehealth consultation with the assistance of staff. Chart, data, and patient independently reviewed. Patient was located at [facility] while I was located in my [place] office. Received verbal consent from patient. Subjective Date/time seen: 04/29/25 10:56 Interval history: 04/27/2025: afebrile with normal leukocytosis. Energy improved. Presentation blood and urine cultures remain pending. 04/28/2025: Afebrile and clinically doing well. Feels stronger today. Urine culture reported with early growth. 04/29/2025: Afebrile with essentially normal white blood cell count. States she feels stronger every day. Urine culture finalized as positive for Claudia albicans. Blood culture 04/25: Negative at 24 hours Urine culture 04/25: Claudia albicans Review of Systems Review of Systems: All systems reviewed & are unremarkable except as noted in HPI and below Exam Narrative: Awake and alert and interactive. No distress. Feels stronger. Normocephalic without conjunctivitis. No respiratory distress. Abdomen without significant distention. No suprapubic or flank tenderness. Jara catheter in place. No rash. Objective Data Vital Signs Vital Signs: Vital Signs - 24 hr 04/28/25 12:00 04/28/25 16:00 04/28/25 20:00 Temperature 97.8 F Pulse Rate 85 84 Respiratory Rate 12 16 Blood Pressure 115/64 114/80 Pulse Oximetry 95 100 Oxygen Delivery Room Air Fraction of Inspired Oxygen 04/28/25 20:00 04/28/25 20:03 04/28/25 23:44 Temperature 97.4 F L Pulse Rate 85 85 84 Respiratory Rate 18 Blood Pressure 97/66 L Pulse Oximetry 100 100 Oxygen Delivery Room Air Fraction of Inspired Oxygen 21 04/29/25 00:00 04/29/25 04:00 04/29/25 08:10 Temperature 97.2 F L 97.8 F Pulse Rate 83 88 Respiratory Rate 20 18 Blood Pressure 104/56 L 125/66 Pulse Oximetry 99 99 Oxygen Delivery Room Air Fraction of Inspired Oxygen 04/29/25 08:15 04/29/25 08:16 Temperature 97.0 F L Pulse Rate 89 89 Respiratory Rate 16 Blood Pressure 140/71 Pulse Oximetry 99 Oxygen Delivery Fraction of Inspired Oxygen Intake/Output Intake/Output: Intake & Output 04/26/25 04/27/25 04/28/25 04/29/25 23:59 23:59 23:59 23:59 Intake Total 1420 2100 2050 540 Output Total 1100 400 Balance 320 1700 2050 540 Meds/Results Medications: Active Medications Generic Name Dose Route Start Last Admin Trade Name Freq PRN Reason Stop Dose Admin Acetaminophen 650 mg 04/25/25 20:45 04/26/25 08:32 Acetaminophen 325 Mg Tablet PO 650 mg Q6H PRN Administration Mild Pain (1-3) or Fever Hydrocodone Bitart/Acetaminophen 1 tab 04/26/25 19:47 04/28/25 16:21 Hydrocodone/Acetaminophen (*Crx) 5-325 Mg Tablet PO 1 tab Q6H PRN Administration Pain Rated 4-10 Atorvastatin Calcium 20 mg 04/25/25 21:00 04/28/25 21:00 Atorvastatin 20 Mg Tablet PO 20 mg HS USAMA Administration Buspirone HCl 10 mg 04/26/25 09:00 04/29/25 08:17 Buspirone Hcl 10 Mg Tablet PO 10 mg BID USAMA Administration Clonidine HCl 0.3 mg 04/26/25 09:00 04/29/25 08:17 Clonidine Hcl 0.1 Mg Tablet PO 0.3 mg BID USAMA Administration Dextrose 12.5 gm 04/25/25 19:17 Dextrose 50% 25 Gm/50 Ml Syringe IV PUSH PRN PRN Hypoglycemia Protocol Duloxetine HCl 60 mg 04/26/25 09:00 04/29/25 08:16 Duloxetine Hcl 60 Mg Capsule.Dr PO 60 mg DAILY USAMA Administration Enoxaparin Sodium 40 mg 04/29/25 09:00 04/29/25 08:17 Enoxaparin 40 Mg/0.4 Ml Syringe SUB-Q 40 mg DAILY USAMA Administration Gabapentin 300 mg 04/26/25 09:00 04/29/25 08:16 Gabapentin 300 Mg Capsule PO 300 mg DAILY USAMA Administration Glucagon 1 mg 04/25/25 19:17 Glucagon For Inj 1 Mg Vial IM PRN PRN Hypoglycemia Protocol Glucose 15 gm 04/25/25 19:17 Glucose Oral Gel 15 Gm Of Glucse In 37.5 Gm Tube PO PRN PRN Hypoglycemia Protocol Dextrose 1,000 mls @ 100 mls/hr 04/25/25 19:17 Dextrose 5% 1,000 Ml IVPB PRN PRN Hypoglycemia Protocol Cefepime HCl 1 gm/ Sodium 50 mls @ 100 mls/hr 04/26/25 14:00 04/29/25 08:17 Chloride IVPB 100 mls/hr Q12HR USAMA Administration Metoprolol Tartrate 100 mg 04/26/25 09:00 04/29/25 08:16 Metoprolol Tartrate 50 Mg Tab PO 100 mg Q12HR USAMA Administration Pantoprazole Sodium 40 mg 04/26/25 09:00 04/29/25 08:17 Pantoprazole 40 Mg Tablet PO 40 mg DAILY USAMA Administration Radiology Results: ITS Impressions Chest X-Ray 04/25/25 13:20 IMPRESSION: 1: NO ACUTE CARDIOPULMONARY DISEASE. Venous Doppler Study 04/25/25 17:33 IMPRESSION: 1: No lower extremity deep venous thrombosis. Abdomen X-Ray 04/26/25 15:19 IMPRESSION: 1: No acute abdominal abnormality identified. 2: Porcelain gallbladder. Renal Ultrasound 04/27/25 15:41 Impression: 1: Trabeculated bladder appearance with thickening. Focal thickening more prominent superiorly on the right. Cannot exclude transitional cell carcinoma possibly superimposed on cystitis. Recommend urology consultation. Labs Labs: Laboratory Results - last 24 hr 04/28/25 04/28/25 04/28/25 11:18 16:35 20:26 WBC RBC Hgb Hct MCV MCH MCHC RDW Plt Count MPV Immature Gran % (Auto) Neut % (Auto) Lymph % (Auto) [place] % (Auto) Eos % (Auto) Baso % (Auto) Lymph # (Auto) [place] # (Auto) Eos # (Auto) Baso # (Auto) Abs Immat Gran (auto) Absolute Neuts (auto) Absolute Nucleated RBC Nucleated RBC % Sodium Potassium Chloride Carbon Dioxide Anion Gap BUN Creatinine Estim Creat Clear Calc Estimated GFR Glucose POC Capillary Glucose 161 H 139 H 155 H Calcium Total Bilirubin AST ALT Alkaline Phosphatase Total Protein Albumin 04/29/25 04/29/25 05:06 08:17 WBC 11.8 H RBC 3.55 L Hgb 10.4 L Hct 32.1 L MCV 90.4 MCH 29.3 MCHC 32.4 RDW 14.5 Plt Count 348 MPV 10.7 H Immature Gran % (Auto) 0.4 Neut % (Auto) 51.5 Lymph % (Auto) 30.5 [place] % (Auto) 9.2 H Eos % (Auto) 7.7 H Baso % (Auto) 0.7 Lymph # (Auto) 3.60 H [place] # (Auto) 1.1 H Eos # (Auto) 0.9 H Baso # (Auto) 0.1 Abs Immat Gran (auto) 0.05 H Absolute Neuts (auto) 6.1 Absolute Nucleated RBC 0.000 Nucleated RBC % 0.0 Sodium 136 L Potassium 4.1 Chloride 103 Carbon Dioxide 27 Anion Gap 6 BUN 28 H Creatinine 0.96 Estim Creat Clear Calc 41 Estimated GFR 57 L Glucose 162 H POC Capillary Glucose 161 H Calcium 9.1 Total Bilirubin 0.3 AST 18 ALT 9 Alkaline Phosphatase 49 Total Protein 6.3 Albumin 3.3 L
[2025-04-29] MEDS: FLUCONAZOLE 100 MG TABLET PO (13:38)
--- NOTE | 2025-04-29 13:52 | P.PNIM_ITS ---
Progress Note: A&P Assessment and Plan (1) UTI (urinary tract infection): Qualifiers: Encounter type: initial encounter Indwelling urinary catheter type: indwelling urethral catheter Urinary tract infection type: catheter-associated UTI Qualified Code(s): T83.511A - Infection and inflammatory reaction due to indwelling urethral catheter, initial encounter; N39.0 - Urinary tract inf ection, site not specified Code(s): N39.0 - Urinary tract infection, site not specified Status: Acute Assessment and Plan: Recurrent UTI associated with catheter Leukocytosis-persistented UA: Cloudy, 2+ glucose, 3+ leuk esterase, 21-50 RBC, greater than 100 WBC, no epithelial cells or bacteria, yeast present - UCx pre to Claudia albicans, blood culture no growth to date -continue cefepime 2 mg IV q.2 hours, 12/07, to complete 7 days -start fluconazole 100 mg p.o. daily for 2 weeks -EKG 04/25 shows sinus rhythm with first-degree AV block (2) Edema of both lower legs: Code(s): R60.0 - Localized edema Status: Acute Assessment and Plan: -bilateral swelling, right larger than left -hx of venous stasis ulcer -venous duplex ultrasound bilateral negative for DVT -compression stocking, elevate legs at night on the chest lives (3) Jara catheter in place on admission: Code(s): Z97.8 - Presence of other specified devices Status: Acute Assessment and Plan: -in place during admission,removed on 04/25/2025 -new Jara exchange completed in the ED -continue to assess current need for Jara -Urology consulted, recommend voids every 3 hours during the day -timed voiding trail (4) Failure to thrive: Status: Acute Assessment and Plan: -pt with several past admissions -could be secondary to caregiver strain -consult care coordination for LTC information -Continue PT/OT Pt is accepted at [facility] at discharge (5) Essential (primary) hypertension: Code(s): I10 - Essential (primary) hypertension Status: Chronic Assessment and Plan: titrate home meds with clinical course BP goal<130/80 Continue clonidine 0.3 mg p.o. b.i.d. and metoprolol titrate 100 mg p.o. b.i.d. * Continue current regimen. (6) DM2 (diabetes mellitus, type 2): Qualifiers: Diabetes mellitus prison insulin use: without prison use Diabetes mellitus complication status: with hyperglycemia Qualified Code(s): E11.65 - Type 2 diabetes mellitus with hyperglycemia Code(s): E11.9 - Type 2 diabetes mellitus without complications Status: Chronic Assessment and Plan: -hold home medication for Farxiga -bedside SSI, POCT, hypoglycemia protocol (7) Generalized weakness: Code(s): R53.1 - Weakness Status: Acute Assessment and Plan: -unable to ambulate or stand at home s/p most recent discharge to home PT/OT consulted 04/28/25: * Pt to discharge to [facility]. (8) Chronic kidney disease (CKD) stage G3a/A1, moderately decreased glomerular filtration rate (GFR) between 45-59 mL/min/1.73 square meter and albuminuria creatinine ratio less than 30 mg/g: Code(s): N18.31 - Chronic kidney disease, stage 3a Status: Acute Assessment and Plan: Cr 1.17 today Patient having adequate oral intake - baseline creatinine: 0.7 - 0.9 - hx of recent RENEA that responded well to fluids and was suspected secondary to dehydration -s/p IVF - hold Farxiga and spironolactone, resume when appropriate monitor renal function 04/28/25: * At baseline with normal renal function of 0.99/19. (9) Hyponatremia: Code(s): E87.1 - Hypo-osmolality and hyponatremia Status: Resolved Assessment and Plan: -chronic s/s CKD resolved, Na 136 (10) Urinary retention: Onset Date: ~03/2025 Code(s): R33.9 - Retention of urine, unspecified Status: Acute Assessment and Plan: Jara placed during previous admission from 03/26/25 - 04/03/25 - outpatient follow-up with Urology on 04/22, pt did not make apt - exchanged Jara today, 04/25, due to concerns for UTI -pt will need new apt with urology (11) Yeast UTI: Code(s): B37.49 - Other urogenital candidiasis Status: Acute Assessment and Plan: -could be secondary to medication Farxiga -hold home medication at this time -fluconazole 150 mg p.o. once, may repeat dose in 72 hours Plan Subjective Date/time seen: 04/29/25 13:52 Interval history: No acute event overnight. She reports she is feeling better, has more energy, appetite is better. She denies fever/chills/abdominal pain/burning pain/frequency or urgency of urination. Exam Narrative: APPEARANCE: Comfortable in bed, pleasant to talk EYES: EOMI HEENT: MMM RESPIRATORY: No respiratory distress Clear to auscultation bilaterally with no rhonchi wheezing or rales. CARDIOVASCULAR: RRR, S1 and S2 without murmurs rubs or gallops. ABDOMINAL: Soft, nontender, nondistended, no rebound or guarding MSK: 5/5 motor strength throughout 4 extremities NEURO: Awake and alert. Following commands, speech normal, no focal deficits SKIN:: Warm, dry. No rashes lesions or abrasions PSYCHIATRIC: Normal affect/mood, Objective Data Vital Signs Vital Signs: Vital Signs - 24 hr 04/28/25 16:00 04/28/25 20:00 04/28/25 20:00 Temperature 36.3 C L Pulse Rate 84 85 Respiratory Rate 16 18 Blood Pressure 114/80 97/66 L Pulse Oximetry 100 100 Oxygen Delivery Room Air Fraction of Inspired Oxygen 04/28/25 20:03 04/28/25 23:44 04/29/25 00:00 Temperature 36.2 C L Pulse Rate 85 84 83 Respiratory Rate 20 Blood Pressure 104/56 L Pulse Oximetry 100 99 Oxygen Delivery Room Air Fraction of Inspired Oxygen 21 04/29/25 04:00 04/29/25 08:10 04/29/25 08:15 Temperature 36.6 C 36.1 C L Pulse Rate 88 89 Respiratory Rate 18 16 Blood Pressure 125/66 140/71 Pulse Oximetry 99 99 Oxygen Delivery Room Air Fraction of Inspired Oxygen 04/29/25 08:16 Temperature Pulse Rate 89 Respiratory Rate Blood Pressure Pulse Oximetry Oxygen Delivery Fraction of Inspired Oxygen Intake/Output Intake/Output: Intake & Output 04/26/25 04/27/25 04/28/25 04/29/25 23:59 23:59 23:59 23:59 Intake Total 1420 2100 2050 540 Output Total 1100 400 Balance 320 1700 2050 540 Meds/Results Medications: Active Medications Generic Name Dose Route Start Last Admin Trade Name Freq PRN Reason Stop Dose Admin Acetaminophen 650 mg 04/25/25 20:45 04/26/25 08:32 Acetaminophen 325 Mg Tablet PO 650 mg Q6H PRN Administration Mild Pain (1-3) or Fever Hydrocodone Bitart/Acetaminophen 1 tab 04/26/25 19:47 04/28/25 16:21 Hydrocodone/Acetaminophen (*Crx) 5-325 Mg Tablet PO 1 tab Q6H PRN Administration Pain Rated 4-10 Atorvastatin Calcium 20 mg 04/25/25 21:00 04/28/25 21:00 Atorvastatin 20 Mg Tablet PO 20 mg HS USAMA Administration Buspirone HCl 10 mg 04/26/25 09:00 04/29/25 08:17 Buspirone Hcl 10 Mg Tablet PO 10 mg BID USAMA Administration Clonidine HCl 0.3 mg 04/26/25 09:00 04/29/25 08:17 Clonidine Hcl 0.1 Mg Tablet PO 0.3 mg BID USAMA Administration Dextrose 12.5 gm 04/25/25 19:17 Dextrose 50% 25 Gm/50 Ml Syringe IV PUSH PRN PRN Hypoglycemia Protocol Duloxetine HCl 60 mg 04/26/25 09:00 04/29/25 08:16 Duloxetine Hcl 60 Mg Capsule.Dr PO 60 mg DAILY USAMA Administration Enoxaparin Sodium 40 mg 04/29/25 09:00 04/29/25 08:17 Enoxaparin 40 Mg/0.4 Ml Syringe SUB-Q 40 mg DAILY USAMA Administration Fluconazole 100 mg 04/29/25 14:00 04/29/25 13:38 Fluconazole 100 Mg Tablet PO 05/12/25 09:01 100 mg QAM USAMA Administration Gabapentin 300 mg 04/26/25 09:00 04/29/25 08:16 Gabapentin 300 Mg Capsule PO 300 mg DAILY USAMA Administration Glucagon 1 mg 04/25/25 19:17 Glucagon For Inj 1 Mg Vial IM PRN PRN Hypoglycemia Protocol Glucose 15 gm 04/25/25 19:17 Glucose Oral Gel 15 Gm Of Glucse In 37.5 Gm Tube PO PRN PRN Hypoglycemia Protocol Dextrose 1,000 mls @ 100 mls/hr 04/25/25 19:17 Dextrose 5% 1,000 Ml IVPB PRN PRN Hypoglycemia Protocol Cefepime HCl 1 gm/ Sodium 50 mls @ 100 mls/hr 04/26/25 14:00 04/29/25 08:17 Chloride IVPB 05/02/25 21:29 100 mls/hr Q12HR USAMA Administration Metoprolol Tartrate 100 mg 04/26/25 09:00 04/29/25 08:16 Metoprolol Tartrate 50 Mg Tab PO 100 mg Q12HR USAMA Administration Pantoprazole Sodium 40 mg 04/26/25 09:00 04/29/25 08:17 Pantoprazole 40 Mg Tablet PO 40 mg DAILY USAMA Administration Radiology Results: ITS Impressions Chest X-Ray 04/25/25 13:20 IMPRESSION: 1: NO ACUTE CARDIOPULMONARY DISEASE. Venous Doppler Study 04/25/25 17:33 IMPRESSION: 1: No lower extremity deep venous thrombosis. Abdomen X-Ray 04/26/25 15:19 IMPRESSION: 1: No acute abdominal abnormality identified. 2: Porcelain gallbladder. Renal Ultrasound 04/27/25 15:41 Impression: 1: Trabeculated bladder appearance with thickening. Focal thickening more prominent superiorly on the right. Cannot exclude transitional cell carcinoma possibly superimposed on cystitis. Recommend urology consultation. Labs Labs: Laboratory Results - last 24 hr 04/28/25 04/28/25 04/29/25 16:35 20:26 05:06 WBC 11.8 H RBC 3.55 L Hgb 10.4 L Hct 32.1 L MCV 90.4 MCH 29.3 MCHC 32.4 RDW 14.5 Plt Count 348 MPV 10.7 H Immature Gran % (Auto) 0.4 Neut % (Auto) 51.5 Lymph % (Auto) 30.5 [place] % (Auto) 9.2 H Eos % (Auto) 7.7 H Baso % (Auto) 0.7 Lymph # (Auto) 3.60 H [place] # (Auto) 1.1 H Eos # (Auto) 0.9 H Baso # (Auto) 0.1 Abs Immat Gran (auto) 0.05 H Absolute Neuts (auto) 6.1 Absolute Nucleated RBC 0.000 Nucleated RBC % 0.0 Sodium 136 L Potassium 4.1 Chloride 103 Carbon Dioxide 27 Anion Gap 6 BUN 28 H Creatinine 0.96 Estim Creat Clear Calc 41 Estimated GFR 57 L Glucose 162 H POC Capillary Glucose 139 H 155 H Calcium 9.1 Total Bilirubin 0.3 AST 18 ALT 9 Alkaline Phosphatase 49 Total Protein 6.3 Albumin 3.3 L 04/29/25 04/29/25 08:17 11:55 WBC RBC Hgb Hct MCV MCH MCHC RDW Plt Count MPV Immature Gran % (Auto) Neut % (Auto) Lymph % (Auto) [place] % (Auto) Eos % (Auto) Baso % (Auto) Lymph # (Auto) [place] # (Auto) Eos # (Auto) Baso # (Auto) Abs Immat Gran (auto) Absolute Neuts (auto) Absolute Nucleated RBC Nucleated RBC % Sodium Potassium Chloride Carbon Dioxide Anion Gap BUN Creatinine Estim Creat Clear Calc Estimated GFR Glucose POC Capillary Glucose 161 H 156 H Calcium Total Bilirubin AST ALT Alkaline Phosphatase Total Protein Albumin
[2025-04-29] MEDS: HYDROcodone/acetaminophen (*CRX) 5-325 MG TABLET 1 TAB PO (15:04)
[2025-04-29] MEDS: ATORVASTATIN 20 MG TABLET PO (21:26)
[2025-04-30 04:00] VITALS: BP 156/77; PULSE 83; RESP 16; TEMP 36.3; O2SAT 100
[2025-04-30 04:54] LABS: Hematocrit 33.1 % (37.0-47.0); Hemoglobin 10.6 g/dL (12.0-15.0); Immature Granulocyte Percent A 0.4 % (0-0.5); Lymphocytes Absolute Auto 4.19 K/mm3 (0.9-3.2); Mean Corpuscular HGB Conc 32.0 g/dl (32-36); Mean Corpuscular Hemoglobin 29.4 pg (26-34); Mean Corpuscular Volume 91.7 fl (80-100); Nucleated Red Blood Cells Absolute Auto 0.000 K/mm3 (0.0-0.012); Nucleated Red Blood Cells Perc 0.0 % (0.0-0.2); Platelet Count Result 344 k/mm3 (150-375); Red Blood Count 3.61 M/mm3 (4.2-5.4); White Blood Count 13.0 K/mm3 (4.5-10.0)
[2025-04-30 05:15] LABS: Alanine Aminotransferase 8 U/L (6-35); Albumin Level 3.3 g/dL (3.5-5.1); Alkaline Phosphatase 40 U/L (38-126); Anion Gap 6 mmol/L (4-12); Aspartate Amino Transferase 20 U/L (14-36); Bilirubin,Total 0.4 mg/dL (0.2-1.3); Blood Urea Nitrogen 28 mg/dL (7-17); Calcium 9.0 mg/dL (8.4-10.2); Carbon Dioxide 24 mmol/L (22-30); Chloride 104 mmol/L (98-107); Estimated CRCL calculation 39 ml/min; Estimated Glomerular Filt Rate 53; Glucose 165 mg/dL (65-110); Potassium 4.0 mmol/L (3.4-5.0); Sodium 134 mmol/L (137-145); Total Protein 6.5 g/dL (6.3-8.2)
[2025-04-30] MEDS: LIDOCAINE 1% LOCAL INJ 2 ML AMPUL 5 ML INFILTRATE (07:05)
[2025-04-30 08:10] VITALS: BP 163/86; PULSE 85; O2SAT 100
[2025-04-30] MEDS: CEFEPIME 1 GM in SODIUM CHLORIDE 0.9% IV 50 ML 100 ML IVPB (08:11)
[2025-04-30 08:12] VITALS: PULSE 85
[2025-04-30] MEDS: FLUCONAZOLE 100 MG TABLET PO (08:12)
[2025-04-30] MEDS: DULoxetine HCL 60 MG CAPSULE.DR PO (08:12)
[2025-04-30] MEDS: GABAPENTIN 300 MG CAPSULE PO (08:12)
[2025-04-30] MEDS: METOPROLOL TARTRATE 50 MG TAB 100 MG PO (08:12)
[2025-04-30] MEDS: HYDROcodone/acetaminophen (*CRX) 5-325 MG TABLET 1 TAB PO (08:13)
[2025-04-30] MEDS: PANTOPRAZOLE 40 MG TABLET PO (08:13)
[2025-04-30 08:15] VITALS: O2SAT 100
[2025-04-30] MEDS: ENOXAPARIN 40 MG/0.4 ML SYRINGE SUB-Q (08:16)
--- NOTE | 2025-04-30 11:10 | WPDINFPN2 ---
Progress Note: A&P Assessment and Plan (1) Jara catheter in place on admission: Code(s): Z97.8 - Presence of other specified devices Status: Acute (2) Catheter-associated urinary tract infection: Qualifiers: Encounter type: subsequent encounter Indwelling urinary catheter type: indwelling urethral catheter Qualified Code(s): T83.511D - Infection and inflammatory reaction due to indwelling urethral catheter, subsequent encounter; N39.0 - Urinary tract infection, site not specified Code(s): T83.511A - Infection and inflammatory reaction due to indwelling urethral catheter, initial encounter; N39.0 - Urinary tract infection, site not specified Status: Acute Plan # Chronic Jara catheter recently placed for urinary retention. -- now removed. # Reactive urinary sediment with pyuria suggestive of UTI. However, while patient has leukocytosis she is without fever or suprapubic/flank tenderness. Recent urine culture only with mixed organism growth. Be that as it may, consider recurrent CAUTI. -- urine culture positive for Claudia albicans. Typically this represents Jara collecting system colonization; however, may be associated with active UTI and would treat. -- on cefepime and oral fluconazole. # Chronic kidney disease. Plan: -- on cefepime 2 g IV q.12 hours, now day 5. Plan to complete 7 days. -- on oral fluconazole 100 mg p.o. Q 24 hours x14 days. -- okay for discharge to SNF to complete IV cefepime and continue with oral fluconazole. Patient was seen via video telehealth consultation with the assistance of staff. Chart, data, and patient independently reviewed. Patient was located at [facility] while I was located in my [place] office. Received verbal consent from patient. Subjective Date/time seen: 04/30/25 11:10 Interval history: 04/27/2025: afebrile with normal leukocytosis. Energy improved. Presentation blood and urine cultures remain pending. 04/28/2025: Afebrile and clinically doing well. Feels stronger today. Urine culture reported with early growth. 04/29/2025: Afebrile with essentially normal white blood cell count. States she feels stronger every day. Urine culture finalized as positive for Claudia albicans. 04/30/2025: Afebrile. Slight increase in white blood cell count he but continues to feel better. Possible discharge to SNF. Blood culture 8/24: Negative at 48 hours Urine culture 04/25: Claudia albicans Review of Systems Review of Systems: All systems reviewed & are unremarkable except as noted in HPI and below Exam Narrative: Awake and alert and interactive. No distress. Feels stronger. Normocephalic without conjunctivitis. No respiratory distress. Abdomen without significant distention. No suprapubic or flank tenderness. Jara catheter Now removed. Peripheral IV site okay. No rash. Objective Data Vital Signs Vital Signs: Vital Signs - 24 hr 04/29/25 16:00 04/29/25 20:00 04/29/25 20:00 Temperature 98.2 F 97.6 F Pulse Rate 87 87 78 Respiratory Rate 17 17 18 Blood Pressure 115/59 L 157/75 H Pulse Oximetry 100 100 100 Oxygen Delivery Room Air Fraction of Inspired Oxygen 21 04/29/25 23:53 04/30/25 04:00 04/30/25 08:10 Temperature 97.7 F 97.4 F L Pulse Rate 82 83 85 Respiratory Rate 20 16 Blood Pressure 160/79 H 156/77 H 163/86 H Pulse Oximetry 100 100 100 Oxygen Delivery Fraction of Inspired Oxygen 04/30/25 08:12 Temperature Pulse Rate 85 Respiratory Rate Blood Pressure Pulse Oximetry Oxygen Delivery Fraction of Inspired Oxygen Intake/Output Intake/Output: Intake & Output 04/27/25 04/28/25 04/29/25 04/30/25 23:59 23:59 23:59 23:59 Intake Total 2100 2050 1080 610 Output Total 400 Balance 1700 2050 1080 610 Meds/Results Medications: Active Medications Generic Name Dose Route Start Last Admin Trade Name Freq PRN Reason Stop Dose Admin Acetaminophen 650 mg 04/25/25 20:45 04/26/25 08:32 Acetaminophen 325 Mg Tablet PO 650 mg Q6H PRN Administration Mild Pain (1-3) or Fever Hydrocodone Bitart/Acetaminophen 1 tab 04/26/25 19:47 04/30/25 08:13 Hydrocodone/Acetaminophen (*Crx) 5-325 Mg Tablet PO 1 tab Q6H PRN Administration Pain Rated 4-10 Atorvastatin Calcium 20 mg 04/25/25 21:00 04/29/25 21:26 Atorvastatin 20 Mg Tablet PO 20 mg HS USAMA Administration Buspirone HCl 10 mg 04/26/25 09:00 04/30/25 08:11 Buspirone Hcl 10 Mg Tablet PO 10 mg BID USAMA Administration Clonidine HCl 0.3 mg 04/26/25 09:00 04/30/25 08:12 Clonidine Hcl 0.1 Mg Tablet PO 0.3 mg BID USAMA Administration Dextrose 12.5 gm 04/25/25 19:17 Dextrose 50% 25 Gm/50 Ml Syringe IV PUSH PRN PRN Hypoglycemia Protocol Duloxetine HCl 60 mg 04/26/25 09:00 04/30/25 08:12 Duloxetine Hcl 60 Mg Capsule.Dr PO 60 mg DAILY USAMA Administration Enoxaparin Sodium 40 mg 04/29/25 09:00 04/30/25 08:16 Enoxaparin 40 Mg/0.4 Ml Syringe SUB-Q 40 mg DAILY USAMA Administration Fluconazole 100 mg 04/29/25 14:00 04/30/25 08:12 Fluconazole 100 Mg Tablet PO 05/12/25 09:01 100 mg QAM USAMA Administration Gabapentin 300 mg 04/26/25 09:00 04/30/25 08:12 Gabapentin 300 Mg Capsule PO 300 mg DAILY USAMA Administration Glucagon 1 mg 04/25/25 19:17 Glucagon For Inj 1 Mg Vial IM PRN PRN Hypoglycemia Protocol Glucose 15 gm 04/25/25 19:17 Glucose Oral Gel 15 Gm Of Glucse In 37.5 Gm Tube PO PRN PRN Hypoglycemia Protocol Dextrose 1,000 mls @ 100 mls/hr 04/25/25 19:17 Dextrose 5% 1,000 Ml IVPB PRN PRN Hypoglycemia Protocol Cefepime HCl 1 gm/ Sodium 50 mls @ 100 mls/hr 04/26/25 14:00 04/30/25 08:11 Chloride IVPB 05/02/25 21:29 100 mls/hr Q12HR USAMA Administration Metoprolol Tartrate 100 mg 04/26/25 09:00 04/30/25 08:12 Metoprolol Tartrate 50 Mg Tab PO 100 mg Q12HR USAMA Administration Pantoprazole Sodium 40 mg 04/26/25 09:00 04/30/25 08:13 Pantoprazole 40 Mg Tablet PO 40 mg DAILY USAMA Administration Sodium Chloride 10 ml 04/30/25 14:00 Saline Lock Flush IV PUSH Q8HR USAMA Sodium Chloride 10 ml 04/30/25 07:35 Saline Lock Flush IV PUSH PRN PRN Flush Sodium Chloride 20 ml 04/30/25 07:35 Saline Lock Flush IV PUSH PRN PRN after blood draws Radiology Results: ITS Impressions Chest X-Ray 04/25/25 13:20 IMPRESSION: 1: NO ACUTE CARDIOPULMONARY DISEASE. Venous Doppler Study 04/25/25 17:33 IMPRESSION: 1: No lower extremity deep venous thrombosis. Abdomen X-Ray 04/26/25 15:19 IMPRESSION: 1: No acute abdominal abnormality identified. 2: Porcelain gallbladder. Renal Ultrasound 04/27/25 15:41 Impression: 1: Trabeculated bladder appearance with thickening. Focal thickening more prominent superiorly on the right. Cannot exclude transitional cell carcinoma possibly superimposed on cystitis. Recommend urology consultation. Labs Labs: Laboratory Results - last 24 hr 04/29/25 04/29/25 04/29/25 11:55 17:01 20:57 WBC RBC Hgb Hct MCV MCH MCHC RDW Plt Count MPV Immature Gran % (Auto) Neut % (Auto) Lymph % (Auto) [place] % (Auto) Eos % (Auto) Baso % (Auto) Lymph # (Auto) [place] # (Auto) Eos # (Auto) Baso # (Auto) Abs Immat Gran (auto) Absolute Neuts (auto) Absolute Nucleated RBC Nucleated RBC % Sodium Potassium Chloride Carbon Dioxide Anion Gap BUN Creatinine Estim Creat Clear Calc Estimated GFR Glucose POC Capillary Glucose 156 H 187 H 146 H Calcium Total Bilirubin AST ALT Alkaline Phosphatase Total Protein Albumin 04/30/25 04/30/25 04:44 07:48 WBC 13.0 H RBC 3.61 L Hgb 10.6 L Hct 33.1 L MCV 91.7 MCH 29.4 MCHC 32.0 RDW 14.2 Plt Count 344 MPV 9.9 Immature Gran % (Auto) 0.4 Neut % (Auto) 49.5 Lymph % (Auto) 32.2 [place] % (Auto) 8.8 H Eos % (Auto) 8.4 H Baso % (Auto) 0.7 Lymph # (Auto) 4.19 H [place] # (Auto) 1.2 H Eos # (Auto) 1.1 H Baso # (Auto) 0.1 Abs Immat Gran (auto) 0.05 H Absolute Neuts (auto) 6.4 Absolute Nucleated RBC 0.000 Nucleated RBC % 0.0 Sodium 134 L Potassium 4.0 Chloride 104 Carbon Dioxide 24 Anion Gap 6 BUN 28 H Creatinine 1.02 H Estim Creat Clear Calc 39 Estimated GFR 53 L Glucose 165 H POC Capillary Glucose 170 H Calcium 9.0 Total Bilirubin 0.4 AST 20 ALT 8 Alkaline Phosphatase 40 Total Protein 6.5 Albumin 3.3 L
--- NOTE | 2025-04-30 13:00 | PCNFU ---
Nutrition Follow-Up Complete: Severe protein calorie malnutrition related to chronic loss of appetite, increased needs from wounds as evidenced by intakes <75% needs >1 month; weight loss -13%/5 months; moderate muscle wasting and fat loss Adequate PO intake >75% to support wound healing - Slow progress with goal. Continue with same goal Goal: Pt current nutrition is Diabetic consistent carb diet, Ensure +HP BID (350 kcal, 20 g protein) and Saji BID (90 kcal, 2.5 g protein, arginine and glutamine for wound healing). Nutrition recommendation: No new recommendations. Continue current nutrition care plan and orders. Agree with orders Last recorded weight is 66.3 kg. Bowel Motility: No BMs are recorded. May benefit from bowel regimen Labs Reviewed: Hgb 10.6, Hct 33.1, Alb 3.3, Na 134, BUN 28, Cre 1.02, Glu 165 Meds Noted: Lovenox, protonix Skin: Stage 2 pressure injury L ischium Additional Notes: Intakes fair to good. Overall improvement. Wound is stable. Discharge to SNF. Agree with current orders. Monitoring skin, weights, labs, intakes, supplement tolerance, plan of care Follow up in 5 days
[2025-04-30 13:56] VITALS: BP 139/71; PULSE 57; RESP 18; TEMP 36.3; O2SAT 97
[2025-04-30] MEDS: SALINE LOCK FLUSH 10 ML IV PUSH (14:18)
[2025-04-30 14:26] LABS: Hemoglobin A1C 6.0 % (<5.7)
--- NOTE | 2025-04-30 14:44 | PM.DS ---
DS: Admitting Diagnosis Discharge Date 04/30/2025 Admitting Diagnosis Generalized weakness DS: Discharge Diagnosis Discharge Diagnosis (1) Catheter-associated urinary tract infection: Qualifiers: Encounter type: subsequent encounter Indwelling urinary catheter type: indwelling urethral catheter Qualified Code(s): T83.511D - Infection and inflammatory reaction due to indwelling urethral catheter, subsequent encounter; N39.0 - Urinary tract infection, site not specified Code(s): T83.511A - Infection and inflammatory reaction due to indwelling urethral catheter, initial encounter; N39.0 - Urinary tract infection, site not specified Status: Acute (2) Yeast UTI: Code(s): B37.49 - Other urogenital candidiasis Status: Acute (3) Claudia infection of genital region: Code(s): B37.49 - Other urogenital candidiasis Status: Acute (4) Jara catheter in place on admission: Code(s): Z97.8 - Presence of other specified devices Status: Acute (5) Chronic kidney disease (CKD) stage G3a/A1, moderately decreased glomerular filtration rate (GFR) between 45-59 mL/min/1.73 square meter and albuminuria creatinine ratio less than 30 mg/g: Code(s): N18.31 - Chronic kidney disease, stage 3a Status: Acute (6) Failure to thrive: Status: Acute (7) Generalized weakness: Code(s): R53.1 - Weakness Status: Acute (8) Edema of both lower legs: Code(s): R60.0 - Localized edema Status: Acute (9) Acute UTI: Code(s): N39.0 - Urinary tract infection, site not specified Status: Acute (10) RENEA (acute kidney injury): Code(s): N17.9 - Acute kidney failure, unspecified Status: Acute (11) Unsteady gait: Code(s): R26.81 - Unsteadiness on feet Status: Acute (12) Back pain: Code(s): M54.9 - Dorsalgia, unspecified Status: Acute DS: Summary Hospital Course Reason for hospitalization: Generalized weakness Hospital Course: Aggie Donald is a 75 year old female with pmhx of [id number] T2DM, hypertension, hyperlipidemia, anxiety/depression, Alzheimer disease, Fibromyalgia, RA and CHF who was here for generalized weakness. Patient was also diagnosed with early sepsis, elevated lactic acid and cystitis. UA shows leukocyte esterase 1+, negative for nitrate and bacteria. Blood culture negative to date. Urine culture grew Claudia albicans. Patient was treated with cefepime for 7 days and fluconazole for [address] scan also noted possible colitis but no diarrhea in the setting of history of IBS. Semaglutide diet was discontinued while inpatient for possible etiology for constipation. Patient started having regular bowel movement with bowel regiment. GI consulted for dysphagia and colitis. They recommended medical therapy. Urology consulted for urinary retention. Indwelling catheter placed. Oxybutynin discontinued for possible side effect. PT/ OT was following and recommended against assisted facility. Status at Discharge Functional status at discharge: uses cane/walker Time Spent with Patient Time attestation: Total time spent providing and/or coordinating discharge services: Exam Narrative: APPEARANCE: Comfortable in bed, pleasant to talk EYES: EOMI HEENT: MMM RESPIRATORY: No respiratory distress Clear to auscultation bilaterally with no rhonchi wheezing or rales. CARDIOVASCULAR: RRR, S1 and S2 without murmurs rubs or gallops. ABDOMINAL: Soft, nontender, nondistended, no rebound or guarding MSK: 5/5 motor strength throughout 4 extremities NEURO: Awake and alert. Following commands, speech normal, no focal deficits SKIN:: Warm, dry. No rashes lesions or abrasions PSYCHIATRIC: Normal affect/mood, DS: Data Data Completed and Pending Labs on day of discharge: Labs from last 24 hours 04/30/25 04/30/25 04/30/25 11:59 07:48 04:44 WBC 13.0 H RBC 3.61 L Hgb 10.6 L Hct 33.1 L MCV 91.7 MCH 29.4 MCHC 32.0 RDW 14.2 Plt Count 344 MPV 9.9 Immature Gran % (Auto) 0.4 Neut % (Auto) 49.5 Lymph % (Auto) 32.2 [place] % (Auto) 8.8 H Eos % (Auto) 8.4 H Baso % (Auto) 0.7 Lymph # (Auto) 4.19 H [place] # (Auto) 1.2 H Eos # (Auto) 1.1 H Baso # (Auto) 0.1 Abs Immat Gran (auto) 0.05 H Absolute Neuts (auto) 6.4 Absolute Nucleated RBC 0.000 Nucleated RBC % 0.0 Sodium 134 L Potassium 4.0 Chloride 104 Carbon Dioxide 24 Anion Gap 6 BUN 28 H Creatinine 1.02 H Estim Creat Clear Calc 39 Estimated GFR 53 L Glucose 165 H POC Capillary Glucose 197 H 170 H Hemoglobin A1c Calcium 9.0 Total Bilirubin 0.4 AST 20 ALT 8 Alkaline Phosphatase 40 Total Protein 6.5 Albumin 3.3 L 04/30/25 04/29/25 04/29/25 04:41 20:57 17:01 WBC RBC Hgb Hct MCV MCH MCHC RDW Plt Count MPV Immature Gran % (Auto) Neut % (Auto) Lymph % (Auto) [place] % (Auto) Eos % (Auto) Baso % (Auto) Lymph # (Auto) [place] # (Auto) Eos # (Auto) Baso # (Auto) Abs Immat Gran (auto) Absolute Neuts (auto) Absolute Nucleated RBC Nucleated RBC % Sodium Potassium Chloride Carbon Dioxide Anion Gap BUN Creatinine Estim Creat Clear Calc Estimated GFR Glucose POC Capillary Glucose 146 H 187 H Hemoglobin A1c 6.0 H Calcium Total Bilirubin AST ALT Alkaline Phosphatase Total Protein Albumin Preliminary micro results at discharge 04/25/25 14:43 Blood Culture - Preliminary Blood 04/25/25 14:59 Blood Culture - Preliminary Blood Discharge Plan Discharge Attending physician on discharge: Rony Olmos Consulting providers: Ike Real; Christian Chandler; Christian Plasencia; Mirian Yost Discharging Clinician: Debbi Restrepo Anticipated Discharge Date/Time: 04/30/25 14:01 Patient Disposition: SNF Activity: december shower and unlimited Diet: regular Discharge Instructions: Continue oral fluconazole for 14 days total Continue cefepime 7 days total Patient Instructions: How to Care for Your Midline Catheter (DC), Midline Catheter (DC) Patient Language: Libyan Stand Alone Forms: General Discharge Information Follow-up/Referrals: Rosa Foreman, [facility] [Physician Supervisor [employer], Urology] - Call for Appointment Problems: Urinary retention Discharge Medications: New cefepime 2 gram recon soln 1 g IV Q12H fluconazole 100 mg tablet 100 mg PO DAILY Qty: 10 0RF hydrocodone-acetaminophen 5-325 mg tablet 1 tablet PO Q6H PRN (Reason: pain) Qty: 20 0RF Continued (DME) FreeStyle Yulia 2 Clarence Misc See Rx Instructions .Route Qty: 1 0RF Rx Instructions: As directed ammonium lactate [AmLactin] 12 % lotion 1 applic topical DAILY Qty: 225 5RF Patient Comments: [place] [place] lancet-gluc test strip-needles Combo Pack See Rx Instructions .Route Qty: 300 0RF Rx Instructions: As directed baclofen 10 mg tablet 10 mg PO TID PRN (Reason: muscle spasm) [place] [place] OneTouch Verio test strips Strip See Rx Instructions .Route Qty: 300 0RF Rx Instructions: use 1 tid to check blood sugar clonidine HCl 0.3 mg tablet See Rx Instructions .ROUTE .COMPLEX Qty: 60 5RF Dose Instruction: Take 1 tablet by mouth twice daily Rx Instructions: Take 1 tablet by mouth twice daily buspirone 10 mg tablet 10 mg PO BID Qty: 60 5RF Rybelsus 7 mg tablet 7 mg PO DAILY Qty: 30 3RF Patient Comments: pt cannot remember which day gabapentin 300 mg capsule 300 mg PO DAILY Qty: 90 1RF pantoprazole 40 mg tablet,delayed release (DR/EC) See Rx Instructions .ROUTE .COMPLEX Qty: 60 0RF Dose Instruction: Take 1 tablet by mouth once daily Rx Instructions: Take 1 tablet by mouth once daily metoprolol tartrate 100 mg tablet See Rx Instructions .ROUTE .COMPLEX Qty: 180 0RF Dose Instruction: Take 1 tablet by mouth twice daily Rx Instructions: Take 1 tablet by mouth twice daily duloxetine 60 mg capsule,delayed release(DR/EC) See Rx Instructions .ROUTE .COMPLEX Qty: 90 0RF Dose Instruction: Take 1 capsule by mouth once daily Rx Instructions: Take 1 capsule by mouth once daily atorvastatin 20 mg tablet See Rx Instructions .ROUTE .COMPLEX Qty: 90 0RF Dose Instruction: Take 1 tablet by mouth once daily Rx Instructions: Take 1 tablet by mouth once daily (DME) FreeStyle Yulia 2 Sensor Kit See Rx Instructions .ROUTE .COMPLEX Qty: 2 3RF Dose Instruction: USE DIRECTED Rx Instructions: USE DIRECTED Held spironolactone 25 mg tablet See Rx Instructions .ROUTE .COMPLEX Qty: 30 3RF Hold Instructions: Resume on 05/08/25. Please see your PCP and check your blood pressure If blood pressure is high, continue Aldactone Dose Instruction: Take 1 tablet by mouth once daily Rx Instructions: Take 1 tablet by mouth once daily Discontinued cefdinir 300 mg Capsule 300 mg PO Q12HR 10 Days Qty: 20 0RF doxycycline hyclate 100 mg Tablet 100 mg PO Q12HR 10 Days Qty: 20 0RF dapagliflozin propanediol [Farxiga] 10 mg tablet 10 mg PO DAILY Qty: 90 3RF pioglitazone 15 mg tablet 15 mg PO DAILY Qty: 90 1RF metformin 500 mg tablet extended release 24 hr See Rx Instructions .ROUTE .COMPLEX Qty: 180 1RF Dose Instruction: Take 2 tablets by mouth twice daily Rx Instructions: Take 2 tablets by mouth twice daily Date of admission: 04/27/25 13:24 Primary Care Provider: Mateo Alfaro Admitting Provider: Rony Olmos Attending physician on admission: Rony Olmos Condition: Stable
--- NOTE | 2025-04-30 15:54 | WNDPHOTO ---
PHOTO ONLY - See Nursing Notes and/ or assessments for documentation.
== END 2025-04-30 18:20 | DRG 698 ==
LOC: ANHED 16:11 → ANH2MED 17:10
PROVIDERS: Emergency Medicine; Nurse Practitioner; Admitting Provider Internal Medicine; Emergency Provider Emergency Medicine; PCP Family Medicine Adolescent Medicine; Visit Provider Student in an Organized Health Care Education/Training Program
DX: T83.511A Infection and inflammatory reaction due to indwelling urethral catheter, initial encounter (principal); E43 Unspecified severe protein-calorie malnutrition; B37.49 Other urogenital candidiasis; E87.1 Hypo-osmolality and hyponatremia; N17.9 Acute kidney failure, unspecified; E11.65 Type 2 diabetes mellitus with hyperglycemia; E11.22 Type 2 diabetes mellitus with diabetic chronic kidney disease; F41.1 Generalized anxiety disorder; F02.80 Dementia in other diseases classified elsewhere, unspecified severity, without behavioral disturbance, psychotic disturbance, mood disturbance, and anxiety; G30.9 Alzheimer's disease, unspecified; I12.9 Hypertensive chronic kidney disease with stage 1 through stage 4 chronic kidney disease, or unspecified chronic kidney disease; I25.2 Old myocardial infarction; K58.9 Irritable bowel syndrome, unspecified; M19.90 Unspecified osteoarthritis, unspecified site; M79.7 Fibromyalgia; N18.31 Chronic kidney disease, stage 3a; R62.7 Adult failure to thrive; R33.9 Retention of urine, unspecified; R60.0 Localized edema; Z79.85 Long-term (current) use of injectable non-insulin antidiabetic drugs; Z87.891 Personal history of nicotine dependence; Z68.23 Body mass index [BMI] 23.0-23.9, adult
CPT/HCPCS: 36415; 36569; 71046; 74018; 76770; 80053; 81001; 82948; 83036; 83605; 83735; 84145; 84484; 85025; 87040; 87086; 93005; 93970; 96365; 96367; 96372; 96375; 97110; 97116; 97162; 97166; 97530; 97535; 99212; 99285; A9270; C1751; G0378; G0379; G0463; J0692; J0696; J1650; J1885; J2003; J3475

== ENCOUNTER 2025-06-01 15:10 | Inpatient (IN) | payer OTHER, MEDICARE, SELFPAY ==
[2025-06-01] VITALS (49 sets, daily range): BP systolic 140–188; BP diastolic 76–98; PULSE 112–126; RESP 12–19; TEMP 36.5–37.1; O2SAT 93–98; BMI 22.6
--- NOTE | ~2025-06-01 | CT_ITS ---
EXAMINATION: CT chest abdomen pelvis wo con DATE: 06/08/2025 15:29 INDICATION: Occult sepsis with persistent leukocytosis TECHNIQUE: Computed tomography (CT) of the chest, abdomen, and pelvis was performed with 100 mL Omnipaque-350 intravenous contrast. Automated exposure control and iterative reconstruction technique were employed. The dose-length product was 752.52 mGy-cm. COMPARISON: 06/01/2025 FINDINGS: CHEST CT: Again seen are peripheral and lower lung predominant irregular septal line thickening with associated honeycombing consistent with UIP pattern chronic interstitial lung disease. Calcified right lower lobe nodules along with calcified right hilar and mediastinal lymph nodes consistent with old granuloma tous disease. No pneumonia, pulmonary edema or pleural effusion. Heart size is normal. Atherosclerotic coronary artery calcifications. No pericardial effusion. Thoracic aorta is normal in caliber with scattered nonhemodynamically significant atherosclerotic plaque. Moderate thoracic spondylosis. ABDOMEN/PELVIS CT: Large peripherally calcified gallstone at the fundus of the otherwise normal gallbladder with no gallbladder wall thickening or pericholecystic inflammatory stranding to suggest acute cholecystitis. Liver, pancreas, bilateral adrenal glands and kidneys are normal. Several splenic calcifications consistent with old granulomatous disease. There is diffuse mild mucosal thickening the bladder wall with mucosal hyperemia suspicious for cystitis. There is also urothelial enhancement extending cephalad lung the right ureter. Right renal pelvis consistent with associated ascending urinary tract infection. There is decreased cortical enhancement at the upper pole the right kidney suspicious for early pyelonephritis. Small amount of gas and a Jara catheter in the decompressed bladder. There is haziness to the fat surrounding the bladder suspicious for cystitis. Moderate diverticulosis along the sigmoid colon without adjacent inflammatory stranding to suggest diverticulitis. Moderate amount stool scatter ed throughout the colon most prominent at the rectum where there is an 8.4 x 7.3 cm ball of stool suspicious for constipation with fecal impaction. There is mild stranding in the perirectal/presacral fat which could be seen with stercoral colitis. Small bowel and appendix are normal. Uterus and bilateral adnexa are unremarkable. No free intraperitoneal gas or fluid. No pathologically enlarged abdominal or pelvic lymphadenopathy. Severe disc height loss at L5-S1 with mild spondylosis in the more cephalad lumbar spine. IMPRESSION: 1. Stable appearance of mild UIP pattern chronic interstitial lung disease with no acute cardiopulmonary disease. 2. Large ball of stool at rectum suspicious for constipation with fecal impaction. Mild stranding in the perirectal/presacral fat suggesting possible secondary stercoral colitis. 3. Mild haziness to the fat surrounding the decompressed bladder suspicious for cystitis. Correlate with urinalysis. Reviewed, dictated and finalized at location A. IMPRESSION: 1. Stable appearance of mild UIP pattern chronic interstitial lung disease with no acute cardiopulmonary disease. 2. Large ball of stool at rectum suspicious for constipation with fecal impacti on. Mild stranding in the perirectal/presacral fat suggesting possible secondar y stercoral colitis. 3. Mild haziness to the fat surrounding the decompressed bladder suspicious for cystitis. Correlate with urinalysis.
--- NOTE | ~2025-06-01 | XR_ITS ---
EXAMINATION: XR fl guide central line place DATE: 06/03/2025 16:25 INDICATION: Insertion of tunneled dialysis catheter TECHNIQUE: 2 fluoroscopic images of the central chest were obtained during procedure performed by Dr. Dean. Radiologist was not present for the imaging or procedure. The amount of fluoroscopy time used during this procedure was 1.1 minutes. Total DAP was 1.28 Gycm^2. COMPARISON: None. FINDINGS/IMPRESSION: Images demonstrate a dual-lumen left internal jugular central venous catheter which extends into the cephalad superior vena cava and beyond the inferior margin of the field of imaging. See procedure note for further detail. Reviewed, dictated and finalized at location A.
--- NOTE | ~2025-06-01 | XR_ITS ---
EXAMINATION: XR chest 1V portable COMPARISON: No comparisons available. HISTORY: AMS FINDINGS: The lungs are clear, no effusion. No pneumothorax. Heart is normal size. Mediastinal and hilar contours are within normal limits. Bony thorax no acute abnormality. Miscellaneous: None Impression: No acute cardiopulmonary abnormality. Reviewed, dictated and finalized at location P. Impression: No acute cardiopulmonary abnormality.
--- NOTE | ~2025-06-01 | CT_ITS ---
CT HEAD NON-CONTRAST Clinical History: confusion Comparison: 03/26/2025 Technique: Unenhanced axial images skull base to vertex Coronal, sagittal reformats CT images acquired with automatic exposure control for dose reduction DLP: 681 mGy-cm Findings: Severe global atrophy. Chronic infarcts bifrontal and left occipital. White matter changes typically chronic microvascular ischemic disease. Sulci, ventricles: Unremarkable. No intracerebral hemorrhage. No evidence acute territorial infarct. No mass effect, midline shift. Bony calvarium intact. Visualized paranasal sinuses: Clear. Mastoid air cells: Clear. IMPRESSION: 1. No acute intracranial findings or change from prior exam. Reviewed, dictated and finalized at location R.
--- NOTE | ~2025-06-01 | CT_ITS ---
EXAMINATION: CT abdomen pelvis wo con DATE: 06/15/2025 11:36 INDICATION: Abdominal pain. Leukocytosis. TECHNIQUE: Computed tomography (CT) of the abdomen and pelvis was performed without intravenous contrast. Automated exposure control and iterative reconstruction technique were employed. The dose-length product was 577.50 mGy-cm. COMPARISON: CT 06/08/2025 FINDINGS: The visualized portions of lung bases demonstrate chronic interstitial lung disease. A calcified right lung nodule is consistent with old edematous disease. There are trace pleural effusions. The heart size is normal. There are coronary artery calcifications. No pericardial effusion. The liver is normal. Calcifications in the spleen are consistent with old granulomatous disease. There are gallstones in the gallbladder, which is normal in size. The pancreas, adrenal glands, and kidneys are normal. There is diverticulosis of the colon without evidence of diverticulitis. There is a large volume of stool in the colon with distention of the rectosigmoid. There is fat stranding around the rectum, consistent with stercoral colitis. The appendix is normal. There is fat stranding at the root of the small bowel mesentery. There are no pathologically enlarged lymph nodes. There is no free intraperitoneal fluid. There is severe lumbar spondylosis. There is a chronic compression fracture of L1. IMPRESSION: 1. Stercoral colitis. 2. 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 3. Chronic interstitial lung disease. Reviewed, dictated and finalized at location E. IMPRESSION: 1. Stercoral colitis. 2. Fat stranding at the root of the small bowel mesentery, consistent with solitario a versus inflammation (mesenteric panniculitis). 3. Chronic interstitial lung disease.
--- NOTE | ~2025-06-01 | XR_ITS ---
EXAMINATION: XR chest port-a-cath/central COMPARISON: No comparisons available. HISTORY: POST INSERTION TUNNELED DIALYSIS CATH FINDINGS: The lungs are clear, no effusion. No pneumothorax. Heart is normal size. Mediastinal and hilar contours are within normal limits. Bony thorax no acute abnormality. Miscellaneous: Left central line terminates in the SVC. Impression: Line placement as above. No pneumothorax Reviewed, dictated and finalized at location P. Impression: Line placement as above. No pneumothorax
--- NOTE | ~2025-06-01 | US_ITS ---
BILATERAL LOWER EXTREMITY VENOUS DUPLEX Clinical History: new onset leg pain . Comparison: None. Technique: Grayscale, color, duplex/spectral Doppler sonography bilateral lower extremities. Findings: Bilateral common femoral, femoral, popliteal, and calf veins compressible and color Doppler patent. Normal augmentation with distal compression. No internal echoes. IMPRESSION: 1. No DVT either leg. Reviewed, dictated and finalized at location R. IMPRESSION: 1. No DVT either leg.
--- NOTE | ~2025-06-01 | CT_ITS ---
CHEST ABDOMEN PELVIS WITHOUT CONTRAST CLINICAL HISTORY: AMS, renal failure, poss infection . COMPARISON: CT chest abdomen and pelvis 03/26/2025 TECHNIQUE: Helical CT performed from thoracic inlet to symphysis pubis Coronal, sagittal reformats CT images acquired with automatic exposure control for dose reduction DLP: 582 mGy-cm FINDINGS: CHEST- Lungs/Pleura: Mild basilar predominant subpleural reticulation and honeycombing. Thoracic Aorta: No aneurysm. Mild atherosclerotic disease. Pulmonary arteries: Normal caliber. Heart: Coronary artery calcifications. Tracheobronchial tree: Patent. Nodes: No enlarged nodes. Mediastinal and right hilar calcifications Bones: No acute bony abnormality. Soft tissues: Unremarkable. ABDOMEN/PELVIS- Liver: Unremarkable. 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 Spleen: Unremarkable. Pancreas: Atrophic. Adrenal glands: Unremarkable. Kidneys: Right kidney- No hydronephrosis. No renal stones. Left kidney- No hydronephrosis. No renal stones. Distal esophagus/stomach: Unremarkable. Small bowel loops: Normal caliber and wall thickness. Colon: Diverticula. Mild wall thickening just ascites. Normal RLQ appendix. Nodes: No enlarged nodes. Peritoneum: No ascites. No free air. Urinary bladder: Wall thickening. Uterus: Unremarkable. Adnexa: No masses Bones: No acute bony abnormality. Soft tissues: Unremarkable. Aorta: No aneurysm. Atherosclerotic disease. IVC: Unremarkable. IMPRESSION: CHEST- 1. No acute findings. ABDOMEN/PELVIS- 1. Cystitis not excluded. 2. Mild colitis not excluded. 3. Otherwise no acute abnormality given noncontrast technique. Reviewed, dictated and finalized at location R.
--- NOTE | ~2025-06-01 | XR_ITS ---
EXAMINATION: XR chest 1V portable COMPARISON: No comparisons available. HISTORY: persistent leukocytosis ?Pneumonia FINDINGS: The lungs are clear, no effusion. No pneumothorax. Heart is normal size. Mediastinal and hilar contours are within normal limits. Bony thorax no acute abnormality. Miscellaneous: Left central line terminates in the SVC. Impression: No acute cardiopulmonary abnormality. Reviewed, dictated and finalized at location P. Impression: No acute cardiopulmonary abnormality.
--- NOTE | 2025-06-01 15:31 | ECG_ITS ---
Test Date: 2025-06-01 15:35:28 Measurements Intervals [place] Rate: 124 P: 54 IA: 164 QRS: 12 QRSD: 76 T: 63 QT: 307 QTc: 442 Interpretive Statements SINUS TACHYCARDIA NONSPECIFIC ST & T-WAVE ABNORMALITY ABNORMAL RHYTHM ECG Electronically Signed On 06-01-2025 16:58:14 CDT by Joshua Marsh M.D.
[2025-06-01 16:07] LABS: Hematocrit 43.6 % (37.0-47.0); Hemoglobin 14.3 g/dL (12.0-15.0); Immature Granulocyte Percent A 0.5 % (0-0.5); Lymphocytes Absolute Auto 2.23 K/mm3 (0.9-3.2); Mean Corpuscular HGB Conc 32.8 g/dl (32-36); Mean Corpuscular Hemoglobin 28.4 pg (26-34); Mean Corpuscular Volume 86.5 fl (80-100); Nucleated Red Blood Cells Absolute Auto 0.000 K/mm3 (0.0-0.012); Nucleated Red Blood Cells Perc 0.0 % (0.0-0.2); Platelet Count Result 630 k/mm3 (150-375); Red Blood Count 5.04 M/mm3 (4.2-5.4); White Blood Count 26.0 K/mm3 (4.5-10.0)
[2025-06-01 16:16] LABS: Alanine Aminotransferase 14 U/L (6-35); Albumin Level 4.7 g/dL (3.5-5.1); Alkaline Phosphatase 91 U/L (38-126); Anion Gap 26 mmol/L (4-12); Aspartate Amino Transferase 24 U/L (14-36); Bilirubin,Total 0.6 mg/dL (0.2-1.3); Blood Urea Nitrogen 94 mg/dL (7-17); Calcium 9.1 mg/dL (8.4-10.2); Carbon Dioxide 18 mmol/L (22-30); Chloride 91 mmol/L (98-107); Estimated CRCL calculation 6 ml/min; Estimated Glomerular Filt Rate 6; Glucose 169 mg/dL (65-110); Potassium 5.3 mmol/L (3.4-5.0); Sodium 135 mmol/L (137-145); Total Protein 9.4 g/dL (6.3-8.2)
[2025-06-01 16:19] LABS: INR 1.2; Prothrombin Time 15.2 Seconds (11.1-14.7)
[2025-06-01 16:20] LABS: Partial Thromboplastin Time 31.1 Seconds (22.3-36.8)
[2025-06-01 16:23] LABS: Add Urine Microscopic? YES; Appearance Urine Clear (Clear); Glucose Urine UA 3+ mg/dL (Negative); Leukocyte Esterase Ur Negative LEU/UL (Negative); Need Manual Microscopic Reviewed; Nitrate Urine Negative (Negative); Specific Grav Ur 1.024 (1.001-1.035)
--- NOTE | 2025-06-01 16:44 | ED_ITS ---
HPI - Altered Mental Status General Chief Complaint: Altered Mental Status Stated Complaint: ams Time Seen by Provider: 06/01/25 15:23 Source: patient and family Mode of arrival: EMS Limitations: altered mental status and clinical condition History of Present Illness HPI narrative: This is a 75-year-old female history of diabetes, hypothyroidism, hypertension, recent fungal UTI who [facility] for altered mental status and generalized weakness. Patient reports that she has felt increasingly weak over the last few days. at bedside reports that she has had a tenuous last few weeks due to recurrent UTIs. She was apparently diagnosed with a fungal UTI and had several doses of the medication for that that he is unsure of. Patient does report some mild diffuse abdominal pain. HPI is otherwise limited patient's somnolence. Related Data Home Medications ?Medication ?Instructions ?Recorded ?Confirmed ?Last Taken ?Type baclofen 10 mg tablet 10 mg PO TID PRN muscle spas m 03/26/25 04/25/25 04/17/25 History Allergies Allergy/AdvReac Type Severity Reaction Status Date / Time amoxicillin (From Augmentin) Allergy Unknown Verified 06/01/25 16:03 clavulanic acid (From Allergy Unknown Verified 06/01/25 16:03 Augmentin) Review of Systems 2 Review of Systems: ROS unobtainable: Yes unobtainable due to medical condition PMFSH Past Medical History Medical History Back pain Eczema Osteoarthritis Venous insufficiency (chronic) (peripheral) DM2 (diabetes mellitus, type 2) Non-ST elevated myocardial infarction (non-STEMI) Osteoarthritis of hands, bilateral Bilateral primary osteoarthritis of knee Essential (primary) hypertension Fibromyalgia Generalized anxiety disorder Arthralgia of multiple joints Surgical History Surgical History History of tubal ligation (~1989) Family History Family History Grandparent Acute myocardial infarction Cerebrovascular accident Heart disease Mother Colon polyp Diabetes mellitus Pancreatic adenocarcinoma Other Depression Hypertension Neuralgia of both lower extremities Social History Social History Social History: Surrogate medical decision maker: Shravan Ramsay, spouse. Code status: Full code. Smoking status: Former smoker Second hand tobacco smoke exposure: No Alcohol intake: never Substance use: never Substance use type: former substance user and marijuana Last use: 03/26/25 Do You Feel Safe in your Home?: Yes Lack of Transportation: No Lack of Food: Never True Current Housing: I Have Housing Concerned About Future Housing: No Difficulty Paying Gas/Electric Bills: No Difficulty Paying for Meds: No Currently Unemployed: No Education: Associate Degree Difficulty w/ Childcare or Family Care: No Living arrangements: with family Occupation/Education: retired Spiritual care concerns: No Agree to blood products: Yes Exam 2 Narrative: APPEARANCE: Somnolent, ill-appearing EYES: EOMI, no scleral icterus HEENT: Normocephalic, atraumatic, mucous membranes dry RESPIRATORY: No respiratory distress Clear to auscultation bilaterally with no rhonchi wheezing or rales. CARDIOVASCULAR: Tachycardic with regular rhythm without murmurs rubs or gallops. ABDOMINAL: Soft, mild diffuse tenderness to palpation without rebound or guarding MUSCULOSKELETAl: Trace edema NEURO: Somnolent, occasionally answers questions and follows commands SKIN:: Warm, dry. No rashes lesions or abrasions Course Vital Signs Vital signs: Vital Signs Temperature 98.0 F 06/01/25 15:10 Pulse Rate 124 H 06/01/25 15:10 Respiratory Rate 17 06/01/25 15:10 Blood Pressure 172/92 H 06/01/25 15:10 Pulse Oximetry 96 06/01/25 15:10 Oxygen Delivery Room Air 06/01/25 15:10 Temperature 98.7 F 06/01/25 16:01 Pulse Rate 116 H 06/01/25 21:32 Respiratory Rate 17 06/01/25 21:32 Blood Pressure 174/85 H 06/01/25 21:32 Pulse Oximetry 96 06/01/25 21:32 Oxygen Delivery Room Air 06/01/25 16:03 MDM - Altered Mental Status MDM Narrative Medical decision making narrative: 75-year-old female presenting for altered mental status and abdominal pain. On initial evaluation, patient was somnolent, intermittently following commands. She was afebrile. Tachycardic to the 120s. Hypertensive to 170s/90s. Abdomen was diffusely tender without peritoneal signs. She had a leukocytosis at 26 and thrombocytosis at 630. She was mildly hyperkalemic at 5.3. Creatinine elevated at 6.31 from baseline of 1 from a few months ago. BUN elevated at 90 for. UA consistent with mild dehydration no UTI. COVID/flu/RSV negative. CT head showed no acute process. CT chest/abdomen/pelvis was limited due to being in noncontrast but potentially showed concerns for possible cystitis or colitis. Given the patient is in severe sepsis and acute renal failure, she was given IV fluids. She was given Lokelma. I did discuss the case with Dr. Villa, nephrology, who will see the patient as a consult. Case discussed with hospitalist who will admit the patient. CRITICAL CARE Indication: Severe sepsis, acute renal failure Time type: intermittent I provided a total of 35 minutes of critical care excluding separately billable procedures. This includes time w/ EMS, initial bedside evaluation, reviewing old records, review of testing done while under my care, discussion w/ the family, nurses, home energy consultant supervisor and guiding the patient?s care while in the emergency department. Differential Diagnosis Differential diagnosis: Likely altered mental status, hyponatremia, subarachnoid hemorrhage, sepsis and other (Electrolyte abnormality, UTI, CVA, pneumonia) Lab Data 06/01/25 15:58 06/01/25 15:58 Labs: Lab Results 06/01/25 06/01/25 06/01/25 Range/Units 15:21 15:58 16:28 WBC 26.0 H (4.5-10.0) K/mm3 RBC 5.04 (4.2-5.4) M/mm3 Hgb 14.3 D (12.0-15.0) g/dL Hct 43.6 (37.0-47.0) % MCV 86.5 (80-100) fl MCH 28.4 (26-34) pg MCHC 32.8 (32-36) g/dl RDW 13.3 (11.5-14.5) % Plt Count 630 H D (150-375) k/mm3 MPV 10.0 (7.4-10.4) fl Immature Gran % (Auto) 0.5 (0-0.5) % Neut % (Auto) 84.3 H (45.5-73.1) % Lymph % (Auto) 8.6 L (18.3-44.2) % [place] % (Auto) 6.2 (2.6-8.5) % Eos % (Auto) 0.1 (0-4.4) % Baso % (Auto) 0.3 (0.2-1.2) % Lymph # (Auto) 2.23 (0.9-3.2) K/mm3 [place] # (Auto) 1.6 H (0.1-0.6) K/mm3 Eos # (Auto) 0.0 (0-0.3) K/mm3 Baso # (Auto) 0.1 (0.0-0.1) K/mm3 Abs Immat Gran (auto) 0.13 H (0.00-0.031) K/mm3 Absolute Neuts (auto) 21.9 H (1.3-6.7) K/mm3 Absolute Nucleated RBC 0.000 (0.0-0.012) K/mm3 Nucleated RBC % 0.0 (0.0-0.2) % PT 15.2 H (11.1-14.7) Seconds INR 1.2 APTT 31.1 (22.3-36.8) Seconds Sodium 135 L (137-145) mmol/L Potassium 5.3 H (3.4-5.0) mmol/L Chloride 91 L (98-107) mmol/L Carbon Dioxide 18 L (22-30) mmol/L Anion Gap 26 H (4-12) mmol/L BUN 94 H D (7-17) mg/dL Creatinine 6.31 H (0.7-1.0) mg/dL Estim Creat Clear Calc 6 ml/min Estimated GFR 6 L (59 - ) Glucose 169 H (65-110) mg/dL POC Capillary Glucose 163 H (65-105) mg/dl Lactic Acid 2.6 H (0.7-2.0) mmol/L Calcium 9.1 (8.4-10.2) mg/dL Total Bilirubin 0.6 (0.2-1.3) mg/dL AST 24 (14-36) U/L ALT 14 (6-35) U/L Alkaline Phosphatase 91 (38-126) U/L Total Protein 9.4 H (6.3-8.2) g/dL Albumin 4.7 (3.5-5.1) g/dL Urine Color Yellow (Yellow) Urine Appearance Clear (Clear) Urine pH 5.0 (5.0-9.0) Ur Specific [place] 1.024 (1.001-1.035) Urine Protein 2+ H (Negative) mg/dL Urine Glucose (UA) 3+ H (Negative) mg/dL Urine Ketones Trace H (Negative) mg/dL Ur Blood (Man) Negative (Negative) Urine Nitrate Negative (Negative) Urine Bilirubin Negative (Negative) Urine Urobilinogen 0.2 (<2.0) mg/dL Add Ur Microanalysis Reviewed Leukocyte Esterase Rfl Negative (Negative) MI/UL Urine RBC 0-2 (0-2) /hpf Urine WBC 0-5 (0-3) /hpf Ur Squamous Epith Cells None seen (Few) /hpf Urine Bacteria None seen /hpf Urine Casts 6-10 Influenza A (RT-PCR) Negative (Negative) Influenza B (RT-PCR) Negative (Negative) RSV (RT-PCR) Negative (Negative) SARS-CoV-2 RNA (RT-PCR) Negative (Negative) Imaging Data Attestation: I personally reviewed and interpreted this imaging study as follows: Radiologist's impression: Impressions Chest/Abdomen/Pelvis CT 06/01/25 17:56 IMPRESSION: CHEST- 1. No acute findings. ABDOMEN/PELVIS- 1. Cystitis not excluded. 2. Mild colitis not excluded. 3. Otherwise no acute abnormality given noncontrast technique. ECG Data EKG #1: Attestation: I personally reviewed and interpreted this ECG as follows: ECG completion date: 06/01/25 ECG completion time: 15:35 Prior ECG tracings: available for review Interpretation: Sinus tachycardia rate of 124, normal axis, normal intervals, no ST changes, nonspecific T-wave changes. Comparison 03/29/2025: Nonspecific T changes are new Discharge Plan Discharge Clinical Impression: Severe sepsis, Acute hyperkalemia, Acute hyponatremia, Metabolic acidosis Acute renal failure Qualifiers: Acute renal failure type: unspecified Qualified Code(s): N17.9 - Acute kidney failure, unspecified Patient Disposition: Still a Patient Condition: Serious
[2025-06-01] MEDS: SODIUM CHLORIDE 0.9% IV 1,000 ML 999 ML IV CONT (16:50)
[2025-06-01 17:08] LABS: Influenza A QL RT-PCR Negative (Negative); Influenza B QL RT-PCR Negative (Negative); RSV RNA, RT-PCR Negative (Negative); SARS-CoV-2 RNA PCR Negative (Negative)
[2025-06-01] MEDS: CEFEPIME 2 GM in SODIUM CHLORIDE 0.9% IV 50 ML 100 ML IVPB (18:44)
--- NOTE | 2025-06-01 20:02 | PM.IMHP ---
H&P: HPI History of Present Illness Date/Time: 06/01/25 20:02 Chief Complaint: Altered mental status Narrative: This is a 75-year-old female patient who has a history of hypothyroidism, fungal UTI and diabetes. The patient came to the emergency room today with confusion and generalized weakness. Her white count is now 26.0 up from 13.0. Her platelet count is 630. Her sodium was slightly low at 135, potassium is 5.3, chloride 91, anion gap is 26, BUN is 94 and creatinine is 6.31. Her blood sugar was 169. Her lactic acid was 2.6 now 1.8. Her urinalysis has 2+ protein, 3+ glucose, trace ketones. Her head CT shows no acute intracranial findings or change from prior exam. Chest abdominal pelvis CT was read as the following iMPRESSION: CHEST- 1. No acute findings. ABDOMEN/PELVIS- 1. Cystitis not excluded. 2. Mild colitis not excluded. 3. Otherwise no acute abnormality given noncontrast technique. The patient was started on normal saline, Lokelma and cefepime. The patient is being admitted to inpatient status on the date of service of 06/01/2025. * the patient was recently discharged from here on 04/30/2025 with catheter associated urinary tract infection and yeast UTI. Review of Systems Review of Systems: ROS unobtainable: Yes unobtainable due to medical condition PMFSH Past Medical History Medical History (Updated 06/02/25 @ 17:26 by Mariela Villa MD) Hyperlipidemia Back pain Eczema Osteoarthritis Venous insufficiency (chronic) (peripheral) DM2 (diabetes mellitus, type 2) Non-ST elevated myocardial infarction (non-STEMI) Osteoarthritis of hands, bilateral Bilateral primary osteoarthritis of knee Essential (primary) hypertension Fibromyalgia Generalized anxiety disorder Arthralgia of multiple joints Surgical History Surgical History History of tubal ligation (~1989) Family History Family History Grandparent Acute myocardial infarction Cerebrovascular accident Heart disease Mother Colon polyp Diabetes mellitus Pancreatic adenocarcinoma Other Depression Hypertension Neuralgia of both lower extremities Social History Social History Social History: Surrogate medical decision maker: Shravan Ramsay, spouse. Code status: Full code. Smoking status: Former smoker Second hand tobacco smoke exposure: No Alcohol intake: never Substance use: never Substance use type: former substance user and marijuana Last use: 03/26/25 Do You Feel Safe in your Home?: Yes Lack of Transportation: No Lack of Food: Never True Current Housing: I Have Housing Concerned About Future Housing: No Difficulty Paying Gas/Electric Bills: No Difficulty Paying for Meds: No Currently Unemployed: No Education: Associate Degree Difficulty w/ Childcare or Family Care: No Living arrangements: with family Occupation/Education: retired Spiritual care concerns: No Agree to blood products: Yes Meds Home Medications and Allergies Home Medications ?Medication ?Instructions ?Recorded ?Confirmed ?Type lancet with blood glucose test #300 ea 01/29/23 06/01/25 Rx strips and pen needles combo pack blood sugar diagnostic (OneTouch #300 ea 05/20/23 06/01/25 Rx Verio test strips) flash glucose scanning reader #1 ea 05/20/23 06/01/25 Rx ([facility] Yulia 2 [place]) ammonium lactate 12 % lotion 1 applic topical DAILY #225 grams 10/26/24 06/01/25 Rx (AmLactin) clonidine HCl 0.3 mg tablet See Rx Instructions .Route 12/27/24 06/01/25 Rx .COMPLEX #60 tabs buspirone 10 mg tablet 10 mg PO BID #60 tabs 02/06/25 06/01/25 Rx semaglutide 7 mg tablet (Rybelsus) 7 mg PO DAILY #30 tabs 02/15/25 06/01/25 Rx gabapentin 300 mg capsule 300 mg PO DAILY #90 caps 03/03/25 06/01/25 Rx baclofen 10 mg tablet 10 mg PO TID muscle spasm 03/26/25 06/01/25 History metoprolol tartrate 100 mg tablet See Rx Instructions .Route 03/29/25 06/01/25 Rx .COMPLEX #180 tabs atorvastatin 20 mg tablet See Rx Instructions .Route 04/07/25 06/01/25 Rx .COMPLEX #90 tabs duloxetine 60 mg capsule,delayed See Rx Instructions .Route 04/07/25 06/01/25 Rx release .COMPLEX #90 ea flash glucose sensor (FreeStyle #2 ea 04/12/25 06/01/25 Rx Yulia 2 Sensor kit) spironolactone 25 mg tablet See Rx Instructions .Route 04/28/25 06/01/25 Rx .COMPLEX #30 tabs hydrocodone 5 mg-acetaminophen 325 1 tablet PO Q6H PRN pain #20 tabs 04/30/25 06/01/25 Rx mg tablet pantoprazole 40 mg tablet,delayed 40 mg PO DAILY #60 tabs 05/27/25 06/01/25 Rx release bisacodyl 10 mg rectal suppository 10 mg RECTAL DAILY PRN constipation 06/01/25 06/01/25 History cholecalciferol (vitamin D3) 25 1,000 unit PO DAILY 06/01/25 06/01/25 History mcg (1,000 unit) tablet dapagliflozin propanediol 10 mg 10 mg PO DAILY 06/01/25 06/01/25 History tablet (Farxiga) fenofibrate 50 mg capsule 50 mg PO DAILY 06/01/25 06/01/25 History magnesium citrate (Citroma oral 296 ml PO DAILY PRN constipation 06/01/25 06/01/25 History solution) magnesium hydroxide 400 mg/5 mL 30 ml PO HS PRN constipation 06/01/25 06/01/25 History oral suspension metformin 500 mg tablet,extended 1,000 mg PO BID 06/01/25 06/01/25 History release 24 hr pioglitazone 15 mg tablet 15 mg PO QAM 06/01/25 06/01/25 History Allergies Allergy/AdvReac Type Severity Reaction Status Date / Time amoxicillin (From Augmentin) Allergy Unknown Verified 06/01/25 16:03 clavulanic acid (From Allergy Unknown Verified 06/01/25 16:03 Augmentin) Vital Signs Vital Signs - 24 hr 06/01/25 15:10 06/01/25 15:18 06/01/25 15:21 Temperature 98.0 F Pulse Rate 124 H 124 H 124 H Respiratory Rate 17 16 16 Blood Pressure 172/92 H 172/92 H Pulse Oximetry 96 96 Oxygen Delivery Room Air 06/01/25 15:30 06/01/25 15:31 06/01/25 15:45 Temperature Pulse Rate 124 H 124 H 126 H Respiratory Rate 18 16 17 Blood Pressure 170/90 H Pulse Oximetry 96 96 95 Oxygen Delivery 06/01/25 15:46 06/01/25 15:47 06/01/25 16:00 Temperature Pulse Rate 126 H 126 H 125 H Respiratory Rate 15 15 16 Blood Pressure 161/87 H Pulse Oximetry 95 95 96 Oxygen Delivery 06/01/25 16:01 06/01/25 16:01 06/01/25 16:01 Temperature 98.7 F Pulse Rate 126 H 126 H Respiratory Rate 16 Blood Pressure 167/91 H Pulse Oximetry 96 96 Oxygen Delivery Room Air 06/01/25 16:02 06/01/25 16:03 06/01/25 16:15 Temperature Pulse Rate 126 H 125 H Respiratory Rate 17 18 Blood Pressure Pulse Oximetry 96 96 96 Oxygen Delivery Room Air 06/01/25 16:16 06/01/25 16:30 06/01/25 16:31 Temperature Pulse Rate 125 H 124 H 124 H Respiratory Rate 18 17 17 Blood Pressure 160/88 H 156/88 H Pulse Oximetry 96 96 96 Oxygen Delivery 06/01/25 16:32 06/01/25 16:45 06/01/25 16:46 Temperature Pulse Rate 124 H 125 H 126 H Respiratory Rate 18 18 17 Blood Pressure 168/92 H Pulse Oximetry 96 96 96 Oxygen Delivery 06/01/25 17:00 06/01/25 17:01 06/01/25 17:15 Temperature Pulse Rate 116 H 115 H 114 H Respiratory Rate 17 16 16 Blood Pressure 169/78 H Pulse Oximetry 95 95 96 Oxygen Delivery 06/01/25 17:16 06/01/25 17:17 06/01/25 17:30 Temperature Pulse Rate 116 H 116 H 121 H Respiratory Rate 17 16 16 Blood Pressure 174/78 H Pulse Oximetry 96 96 96 Oxygen Delivery 06/01/25 17:31 06/01/25 17:48 06/01/25 17:49 Temperature Pulse Rate 121 H 120 H 115 H Respiratory Rate 17 17 Blood Pressure 168/84 H 163/83 H Pulse Oximetry 96 95 96 Oxygen Delivery 06/01/25 18:00 06/01/25 18:01 06/01/25 18:15 Temperature Pulse Rate 116 H 117 H 113 H Respiratory Rate 17 16 16 Blood Pressure 140/76 Pulse Oximetry 93 95 98 Oxygen Delivery 06/01/25 18:16 06/01/25 18:30 06/01/25 18:31 Temperature Pulse Rate 114 H 113 H 113 H Respiratory Rate 17 19 18 Blood Pressure 140/80 157/80 H Pulse Oximetry 97 95 95 Oxygen Delivery Exam Const: General: cooperative, no acute distress, well developed, awake, Physically active and average body habitus Nutritional Appearance: well nourished Orientation/consciousness: oriented to person HENMT: Head: normal to inspection, No palpable skull fracture present, normocephalic and atraumatic Ears: hearing grossly normal bilaterally Eyes: General: appearance normal, both eyes and all related structures Alignment and Position: alignment normal Periorbital: periorbital findings normal Eyelids: eyelids normal Neck: Neck: normal visual inspection and full ROM Chest: Chest palpation & inspection: normal inspection of the chest Resp: Effort & Inspection: normal respiratory effort Auscultation: clear to auscultation bilaterally Cardio: Palpation: normal PMI Rate: regular rate Rhythm: regular rhythm Heart sounds: S1 normal heart sound present and S2 normal heart sound present Peripheral pulses: Peripheral pulses 2+ throughout GI: Inspection: normal to inspection Auscultation: normal bowel sounds Rectal Exam: deferred Skin: General skin exam: normal color Lesions: no lesions Rashes: no rashes Trauma: no lacerations or abrasions Wounds: no wounds Hair: normal Nails: normal Neuro: General: oriented to person, oriented to place, oriented to time and patient oriented x3 Cranial nerves: Yes Equal, round and reactive pupils present and Yes Normal hearing present Cognition (Neuro): normal cognition Speech: normal speech Motor exam (neuro): 5/5 motor strength present throughout Sensory Exam: normal sensation Extrem: General: normal to inspection Right upper extremity: normal to inspection and shoulder/upper arm Left upper extremity: normal to inspection and shoulder/upper arm Right lower extremity: normal to inspection Left lower extremity: normal to inspection Psych: Mental Status: other Affect: normal affect Attitude: cooperative H&P: Results Labs Labs: Short CBC 06/01/25 Range/Units 15:58 WBC 26.0 H (4.5-10.0) K/mm3 Hgb 14.3 D (12.0-15.0) g/dL Hct 43.6 (37.0-47.0) % Plt Count 630 H D (150-375) k/mm3 BMP 06/01/25 15:58 Sodium 135 L Potassium 5.3 H Chloride 91 L Carbon Dioxide 18 L BUN 94 H D Creatinine 6.31 H Glucose 169 H Calcium 9.1 Liver Function 06/01/25 Range/Units 15:58 Total Bilirubin 0.6 (0.2-1.3) mg/dL AST 24 (14-36) U/L ALT 14 (6-35) U/L Alkaline Phosphatase 91 (38-126) U/L Albumin 4.7 (3.5-5.1) g/dL Urine 06/01/25 Range/Units 15:58 Urine Color Yellow (Yellow) Urine Appearance Clear (Clear) Urine pH 5.0 (5.0-9.0) Ur Specific [place] 1.024 (1.001-1.035) Urine Protein 2+ H (Negative) mg/dL Urine Glucose (UA) 3+ H (Negative) mg/dL ECG Interpretation: SINUS TACHYCARDIA NONSPECIFIC ST & T-WAVE ABNORMALITY ABNORMAL RHYTHM ECG Electronically Signed On 06-01-2025 16:58:14 CDT by Joshua Marsh M.D Imaging CT scan - abdomen: Radiologist's impression: Impressions Chest/Abdomen/Pelvis CT 06/01/25 17:56 IMPRESSION: CHEST- 1. No acute findings. ABDOMEN/PELVIS- 1. Cystitis not excluded. 2. Mild colitis not excluded. 3. Otherwise no acute abnormality given noncontrast technique. Head CT 06/01/25 19:30 IMPRESSION: 1. No acute intracranial findings or change from prior exam. Assessment and Plan Assessment and plan (1) RENEA (acute kidney injury): Code(s): N17.9 - Acute kidney failure, unspecified Status: Resolved Assessment and Plan: -the patient has acute on chronic renal failure. -patient had a renal ultrasound on 04/27/2025: Trabeculated bladder appearance with thickening. Focal thickening more prominent superiorly on the right. Cannot exclude transitional cell carcinoma possibly superimposed on cystitis. Recommend urology consultation. -urology saw the patient on 04/27/2025 and noted no acute urological surgical intervention is indicated. It was noted that they will follow her peripherally. -urology consult was placed once again. -continue with IV fluid -monitor BMP -her BUN is 94 and creatinine 6.31. Her BUN on 04/30/2025 was 28 with a creatinine 1.02. Her GFR 6 where was previously 53 on 04/30/2025 -nephrology consult greatly appreciate -avoid nephrotoxic medication. -she had been on metformin which is now on hold. -daily electrolyte monitoring. (2) DM2 (diabetes mellitus, type 2): Qualifiers: Diabetes mellitus complication status: with hyperglycemia Diabetes mellitus technician terminal and repeater insulin use: without care home use Qualified Code(s): E11.65 - Type 2 diabetes mellitus with hyperglycemia Code(s): E11.9 - Type 2 diabetes mellitus without complications Status: Chronic Assessment and Plan: -I am holding her p.o. medication. -sliding scale insulin -last A1c a couple days ago was 6.0. -her blood sugar was 169. (3) Essential (primary) hypertension: Code(s): I10 - Essential (primary) hypertension Status: Chronic Assessment and Plan: -blood pressure 161/80. -continue with clonidine if blood pressure allows -continue with metoprolol F blood pressure allow (4) Congestive heart failure: Code(s): I50.9 - Heart failure, unspecified Status: Chronic Assessment and Plan: -continue with metoprolol -[place] [facility] is currently on hold due to her acute renal failure. -last echo performed was in 2022. -echo ordered -spironolactone on hold at this time. (5) Hyperlipidemia: Code(s): E78.5 - Hyperlipidemia, unspecified Status: Acute Assessment and Plan: -continue without atorvastatin and monitor liver enzymes (6) Generalized anxiety disorder: Code(s): F41.1 - Generalized anxiety disorder Status: Inactive (7) Hyperkalemia: Code(s): E87.5 - Hyperkalemia Status: Acute Assessment and Plan: -most likely secondary to the acute kidney injury -she has also been on spironolactone which is now on hold. -the patient was given Lokelma in the emergency room. -daily BMPs. -her potassium was 5.3. Plan Pain medication and muscle relaxers held at this time due to her acute altered mental status. Quality VTE Prophylaxis VTE prophylaxis: pharmacologic ordered
--- NOTE | 2025-06-01 21:02 | PC.NURSE ---
This RN spoke with [facility] and spoke with the RN to update them about pt admission
--- NOTE | 2025-06-01 21:52 | ADMGEN ---
This patient, Aggie Donald, was admitted to IMU Room 205-01. Patient/family oriented to hospital policies and general routines including ID bracelet, bed and alarms, visiting hours, pain management, procedures, bathroom and other care routines, personal items, smoking policy, room service/diet, and visiting hours. Information on how to activate the Rapid Response Team has been discussed. Patient/Family are encouraged to report perceived risks to care and to ask questions if they do not understand what they are told or what they should do.
[2025-06-02] VITALS (19 sets, daily range): BP systolic 111–161; BP diastolic 52–80; PULSE 98–126; RESP 16–20; TEMP 36.7–37.2; O2SAT 95–97; BMI 22.6
--- NOTE | 2025-06-02 | ECHO_ITS ---
Patient Info Name: Aggie Donald Age: 75 years : 1950 Gender: Female Ht: 65 in Wt: 135 lbs BSA: 1.68 m2 HR: 108 bpm BP: 153 / 75 mmHg Heart Rhythm: Sinus Rhythm Technical Quality: Good Exam Date: 06/02/2025 9:20 AM Patient Status: I Admit Date: 06/01/2025 Exam Type: CA echo dop color flow w con Complete two-dimensional, color flow and Doppler transthoracic echocardiogram is performed with contrast to opacify the left ventricle and to improve the deliniation of the left ventricle endocardial borders. Staff Referring Physician: Maria Dolores Moscoso Project Designer: Katrin Campa Attending Provider: Eladio Diamond MD Contrast/Agitated Saline Contrast/Ag. Saline: Definity Amount: 2.00 ml Summary 1. Concentric left ventricular hypertrophy with hyperdynamic systolic function. 2. Mildly sclerotic aortic valve with well maintained leaflet excursion. 3. Heavily calcified mitral valve annulus. Left Ventricle Left ventricular chamber dimension is normal. Left ventricular systolic function is hyperdynamic, estimated at >70. There is mild concentric increased left ventricular wall thickness. The left ventricular diastolic function is grade I diastolic dysfunction. Right Ventricle Right ventricular chamber dimension is normal. Left Atria Left atrial chamber dimension is normal. Right Atria Right atrial chamber dimension is normal. Aortic Valve The aortic valve is trileaflet. There is mild aortic valve sclerosis. Pulmonic Valve The pulmonic valve is normal. Mitral Valve The mitral valve has normal leaflets. The mitral valve annulus is severely calcified. Tricuspid Valve The tricuspid valve leaflets are normal. There is mild tricuspid valve regurgitation. Pericardium/Pleural The pericardium appears normal. Aorta The aortic root size at the sinus of Valsalva is normal. Left Ventricular Outflow Tract Name Value Normal LVOT 2D LVOT Diameter 2.0 cm LVOT Doppler LVOT Peak Velocity 128 cm/s LVOT Peak Gradient 7 mmHg LVOT Mean Gradient 3 mmHg LVOT VTI 22 cm LVOT Stroke Volume 68 ml LVOT CO 7.3 l/min LVOT CI 4.4 l/min/m2 Pulmonic Valve Name Value Normal RVOT Doppler RVOT Peak Velocity 118 cm/s RVOT Peak Gradient 6 mmHg RVOT Mean Gradient 3 mmHg PV Doppler PV Peak Velocity 145 cm/s PV Peak Gradient 8 mmHg Mitral Valve Name Value Normal MV Diastolic Function MV E Peak Velocity 66 cm/s MV A Peak Velocity 129 cm/s MV E/A 0.5 MV Decel Time (PW) 192 ms MV Annular TDI MV E/e' (Septal) 15.0 MV E/e' (Lateral) 10.0 MV E/e' (Average) 12.5 Tricuspid Valve Name Value Normal TV Regurgitation Doppler TR Peak Velocity 310 cm/s TR Peak Gradient 32 mmHg Aortic Valve Name Value Normal AV Doppler AV Peak Velocity 160 cm/s AV Peak Gradient 10 mmHg AV Area (Cont Eq Devan) 2.5 cm2 AV DI (Devan) 0.80 AV Regurgitation 2D LVOT Area 3.1 cm2 Ventricles Name Value Normal LV Dimensions 2D/MM IVS Diastolic Thickness (2D) 1.2 cm 0.6-1.0 LVID Diastole (2D) 2.6 cm 3.8-5.2 LVIW Diastolic Thickness (2D) 1.3 cm 0.6-0.9 LVID Systole (2D) 1.8 cm 2.2-3.5 LVOT Diameter 2.0 cm LV Mass (2D Cubed) 99.48 g 67.00-162.00 LV Mass Index (2D Cubed) 59 g/m2 43-95 Relative Wall Thickness (2D) 0.97 <=0.42 LV Fractional Shortening/Ejection Fraction 2D/MM LV Fractional Shortening (2D) 32 % 27-45 LV EF (2D Teichholz) 62 % LV Diastolic Volume (4C MOD) 64 ml LV EF (4C MOD) 71 % LV Diastolic Volume (2C MOD) 66 ml LV EF (2C MOD) 72 % LV Diastolic Volume (BP MOD) 66 ml 46-106 LV Diastolic Volume Index (BP MOD) 39 ml/m2 29-61 LV Systolic Volume (BP MOD) 19 ml 14-42 LV Systolic Volume Index (BP MOD) 11 ml/m2 8-24 LV EF (BP MOD) 71 % 54-74 LV Diastolic Length (4C) 7.4 cm LV Systolic Length (4C) 5.8 cm LV Stroke Volume (4C MOD) 45 ml Atria Name Value Normal LA Dimensions LA Volume (4C A-L) 21 ml LA Volume (BP A-L) 18 ml RA Dimensions RA Systolic Major Edmonson Length (4C) 4.0 cm 2.2-2.8 RA Area (4C) 6.8 cm2 <=18.0 Report Signatures
[2025-06-02] MEDS: SODIUM CHLORIDE 0.9% IV 1,000 ML 75 ML IV CONT (04:14)
--- NOTE | 2025-06-02 06:53 | P.PNIM_ITS ---
Progress Note: A&P Assessment and Plan (1) Altered mental status: Qualifiers: Altered mental status type: unspecified Qualified Code(s): R41.82 - Altered mental status, unspecified Code(s): R41.82 - Altered mental status, unspecified Status: Resolved Assessment and Plan: Patient AOx0-1 on assessment, per chart review patient AOx3 during previous hospitalization AMS related to uremic encephalopathy vs infection vs other See plan below (2) Sepsis: Code(s): A41.9 - Sepsis, unspecified organism Status: Acute Assessment and Plan: Meets SIRS criteria: Tachycardic, leukocytosis, lactic acidosis - lactic acid: 2.6 >> 1.8 - blood cultures drawn on 06/01: pending - UA nonconcerning for infection, will repeat urine culture as unsure where le ukocytosis coming from however low suspicioin given recent treatment for UTI and yeast infection - Chest/abdomen/pelvis CT: cystitis and colitis otherwise no acute abnormality given noncontrast technique - Will obtain a ciff if possible however per RN no diarrhea noted - ID reconsulted given worsening leukocytosis and no clear source at this time. -Await blood cultures -Await urine culture although low suspicion for UTI -Monitor for diarrhea indicative of C.difficile infection -Continue Cefepime and started Metronidazole IV empirically given mild colitis changes on CT scan (3) RENEA (acute kidney injury): Code(s): N17.9 - Acute kidney failure, unspecified Status: Resolved Assessment and Plan: Acute on chronic renal failure, baseline appears WNL-1.4 Previously diagnosed with UTI during previous admission from 04/25-04/30, Ucx grew migue. Seen by ID and given 7 days cefe and 14 days fluconazole to complete the course. - BUN/Cr 94/6.31 on admission, previously Cr 1.02 on 05/31 - Monitor I/O. PRN bladder scan showing minimal urine. - Renal ultrasound on 04/27/2025: Trabeculated bladder appearance with thickening. Focal thickening more prominent superiorly on the right. Cannot exclude transitional cell carcinoma possibly superimposed on cystitis. - Previously receiving IV fluids with minimal improvement, patient now having coarse lung bases. Fluids discontinued. Nephrology aware. - Avoid nephrotoxic medication - Renally dose medications - Nephrology consult greatly appreciate Discussed with nephrology, possible dialysis - Urology saw the patient on 04/27/2025 and noted no acute urological surgical intervention is indicated. It was noted that they will follow her peripherally. (4) Hyperkalemia: Code(s): E87.5 - Hyperkalemia Status: Acute Assessment and Plan: -most likely secondary to the acute kidney injury - K 5.3 on admission, given Lokelma in the emergency room. Repeat K 5.2. -she has also been on spironolactone which is now on hold. -daily BMPs. (5) DM2 (diabetes mellitus, type 2): Qualifiers: Diabetes mellitus complication status: with hyperglycemia Diabetes mellitus senior living insulin use: without termite treater helper use Qualified Code(s): E11.65 - Type 2 diabetes mellitus with hyperglycemia Code(s): E11.9 - Type 2 diabetes mellitus without complications Status: Chronic Assessment and Plan: - hypoglycemia protocol - POC blood glucose ACHS - home medication - farxiga 10 mg daily, metformin 1000 mg BID, pioglitazone 15 mg daily, semaglutide 7 mg daily - correct regimen ordered - low dose TIDWM - A1C 6 Glucose reviewed and stable, continue to monitor. (6) Essential (primary) hypertension: Code(s): I10 - Essential (primary) hypertension Status: Chronic Assessment and Plan: Chronic, continue home medications - clonidine 0.3 mg BID and metoprolol 100 mg BID currently on hold given mental status - continue metoprolol 5 mg IV q6H PRN for tachycardia > 100 - blood pressures reviewed and remain stable, continue to monitor (7) Congestive heart failure: Code(s): I50.9 - Heart failure, unspecified Status: Chronic Assessment and Plan: Does not appear in acute exacerbation - Current medications: metoprolol 100 mg BID and spironolactone 25 mg daily spironolactone currently on hold for RENEA - Chest CT: No acute cardiopulmonary findings - Echo: LVEF > 70% with indeterminate diastolic function - Monitor vital signs, I&Os, BUN/creatinine, daily weights, neuro status and patient is a fall risk - Monitor serum electrolytes, Keep serum Potassium>4 and serum Magnesium>2 and CBC (8) Hyperlipidemia: Code(s): E78.5 - Hyperlipidemia, unspecified Status: Acute Assessment and Plan: -continue atorvastatin 20 mg daily and monitor liver enzymes Time Spent With Patient Time with patient: Greater than 35 minutes Subjective Date/time seen: 06/02/25 06:53 Interval history: 75-year-old female history of diabetes, hypothyroidism, hypertension, recent fungal UTI who presents to the hospital from group home for altered mental status and generalized weakness. Patient seen lying in bed. On assessment she is alert to voice, not speaking but following some commands. Returned to patients room and she is AOx1 but is not answering questions. Discussed patient with nephrology Dr. Villa who plans to discuss possibly starting dialysis with patients family. Waiting further recommendations. Review of Systems Review of Systems: ROS unobtainable: Yes unobtainable due to mental status Exam Narrative: AF HR 98 RR 18 SpO2 97 BP 122/66 General: female in no acute respiratory distress who is nontoxic appearing, lying semi recumbent in bed. HEENT: Normocephalic. Atraumatic. Extraocular movement intact. Sclera clear and anicteric. No facial asymmetry. Chest: Lungs are coarse to auscultation bilaterally. CV: Heart was regular rate and rhythm. Abd: Abdomen was soft. Nontender. Nondistended. Positive bowel sounds. Ext: No clubbing, cyanosis, or edema. DP pulses bilaterally. Neuro: Patient is alert to voice and upon return able AOx1 (person), following some commands. 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 Skin: Warm and dry. No rashes or ulcers noted. Objective Data Vital Signs Vital Signs: Vital Signs - 24 hr 06/01/25 15:10 06/01/25 15:18 06/01/25 15:21 Temperature 98.0 F Pulse Rate 124 H 124 H 124 H Respiratory Rate 17 16 16 Blood Pressure 172/92 H 172/92 H Pulse Oximetry 96 96 Oxygen Delivery Room Air 06/01/25 15:30 06/01/25 15:31 06/01/25 15:45 Temperature Pulse Rate 124 H 124 H 126 H Respiratory Rate 18 16 17 Blood Pressure 170/90 H Pulse Oximetry 96 96 95 Oxygen Delivery 06/01/25 15:46 06/01/25 15:47 06/01/25 16:00 Temperature Pulse Rate 126 H 126 H 125 H Respiratory Rate 15 15 16 Blood Pressure 161/87 H Pulse Oximetry 95 95 96 Oxygen Delivery 06/01/25 16:01 06/01/25 16:01 06/01/25 16:01 Temperature 98.7 F Pulse Rate 126 H 126 H Respiratory Rate 16 Blood Pressure 167/91 H Pulse Oximetry 96 96 Oxygen Delivery Room Air 06/01/25 16:02 06/01/25 16:03 06/01/25 16:15 Temperature Pulse Rate 126 H 125 H Respiratory Rate 17 18 Blood Pressure Pulse Oximetry 96 96 96 Oxygen Delivery Room Air 06/01/25 16:16 06/01/25 16:30 06/01/25 16:31 Temperature Pulse Rate 125 H 124 H 124 H Respiratory Rate 18 17 17 Blood Pressure 160/88 H 156/88 H Pulse Oximetry 96 96 96 Oxygen Delivery 06/01/25 16:32 06/01/25 16:45 06/01/25 16:46 Temperature Pulse Rate 124 H 125 H 126 H Respiratory Rate 18 18 17 Blood Pressure 168/92 H Pulse Oximetry 96 96 96 Oxygen Delivery 06/01/25 17:00 06/01/25 17:01 06/01/25 17:15 Temperature Pulse Rate 116 H 115 H 114 H Respiratory Rate 17 16 16 Blood Pressure 169/78 H Pulse Oximetry 95 95 96 Oxygen Delivery 06/01/25 17:16 06/01/25 17:17 06/01/25 17:30 Temperature Pulse Rate 116 H 116 H 121 H Respiratory Rate 17 16 16 Blood Pressure 174/78 H Pulse Oximetry 96 96 96 Oxygen Delivery 06/01/25 17:31 06/01/25 17:48 06/01/25 17:49 Temperature Pulse Rate 121 H 120 H 115 H Respiratory Rate 17 17 Blood Pressure 168/84 H 163/83 H Pulse Oximetry 96 95 96 Oxygen Delivery 06/01/25 18:00 06/01/25 18:01 06/01/25 18:15 Temperature Pulse Rate 116 H 117 H 113 H Respiratory Rate 17 16 16 Blood Pressure 140/76 Pulse Oximetry 93 95 98 Oxygen Delivery 06/01/25 18:16 06/01/25 18:30 06/01/25 18:31 Temperature Pulse Rate 114 H 113 H 113 H Respiratory Rate 17 19 18 Blood Pressure 140/80 157/80 H Pulse Oximetry 97 95 95 Oxygen Delivery 06/01/25 18:32 06/01/25 18:45 06/01/25 18:46 Temperature Pulse Rate 112 H 114 H 115 H Respiratory Rate 19 19 12 Blood Pressure 150/84 H Pulse Oximetry 94 94 97 Oxygen Delivery 06/01/25 19:00 06/01/25 19:01 06/01/25 19:40 Temperature Pulse Rate 119 H 119 H 117 H Respiratory Rate 16 18 16 Blood Pressure 185/98 H 171/85 H Pulse Oximetry 96 95 95 Oxygen Delivery 06/01/25 19:47 06/01/25 20:00 06/01/25 20:15 Temperature Pulse Rate 118 H 119 H 118 H Respiratory Rate 14 18 15 Blood Pressure Pulse Oximetry Oxygen Delivery 06/01/25 20:30 06/01/25 20:31 06/01/25 20:45 Temperature Pulse Rate 120 H 120 H 116 H Respiratory Rate 19 15 17 Blood Pressure 171/82 H 174/85 H Pulse Oximetry 97 96 96 Oxygen Delivery 06/01/25 21:28 06/01/25 21:32 06/01/25 22:00 Temperature 97.7 F Pulse Rate 119 H 116 H 119 H Respiratory Rate 16 17 Blood Pressure 188/89 H 174/85 H Pulse Oximetry 97 96 Oxygen Delivery 06/02/25 00:00 06/02/25 00:00 06/02/25 00:09 Temperature 98.1 F Pulse Rate 126 H 125 H Respiratory Rate 16 Blood Pressure 161/80 H Pulse Oximetry 96 Oxygen Delivery Room Air 06/02/25 02:44 06/02/25 04:00 06/02/25 04:00 Temperature Pulse Rate 126 H 123 H Respiratory Rate Blood Pressure Pulse Oximetry Oxygen Delivery Room Air 06/02/25 04:00 06/02/25 06:20 Temperature 98.2 F Pulse Rate 123 H 115 H Respiratory Rate 20 Blood Pressure 153/75 H Pulse Oximetry 95 Oxygen Delivery Intake/Output Intake/Output: Intake & Output 05/30/25 05/31/25 06/01/25 06/02/25 23:59 23:59 23:59 23:59 Intake Total 1050 Output Total 150 Balance 900 Meds/Results Medications: Active Medications Generic Name Dose Route Start Last Admin Trade Name Freq PRN Reason Stop Dose Admin Atorvastatin Calcium 20 mg 06/02/25 09:00 Atorvastatin 20 Mg Tablet BY MOUTH DAILY [facility] Bisacodyl 10 mg 06/02/25 03:32 Bisacodyl 10 Mg Suppository RECTAL DAILY PRN Constipation Clonidine HCl 0.3 mg 06/02/25 09:00 Clonidine Hcl 0.1 Mg Tablet BY MOUTH BID [facility] Dextrose 12.5 gm 06/02/25 03:31 Dextrose 50% 25 Gm/50 Ml Syringe IV PUSH PRN PRN Hypoglycemia Protocol Gabapentin 300 mg 06/02/25 09:00 Gabapentin 300 Mg Capsule PO DAILY [facility] Glucagon 1 mg 06/02/25 03:31 Glucagon For Inj 1 Mg Vial IM PRN PRN Hypoglycemia Protocol Glucose 15 gm 06/02/25 03:31 Glucose Oral Gel 15 Gm Of Glucse In 37.5 Gm Tube PO PRN PRN Hypoglycemia Protocol Sodium Chloride 1,000 mls @ 75 mls/hr 06/02/25 03:30 06/02/25 04:14 Normal Saline Iv IV CONT 75 mls/hr .[id number] [facility] Administration Dextrose 1,000 mls @ 100 mls/hr 06/02/25 03:31 Dextrose 5% 1,000 Ml IVPB PRN PRN Hypoglycemia Protocol Cefepime HCl 1 gm/ Sodium 50 mls @ 100 mls/hr 06/02/25 19:00 Chloride IVPB Q24H [facility] Insulin Aspart 2 - 5 units 06/02/25 08:00 Insulin Aspart (*Bkc) 100 Units/Ml SUB-Q TIDWM [facility] Protocol Metoprolol Tartrate 100 mg 06/02/25 09:00 Metoprolol Tartrate 50 Mg Tab BY MOUTH Q12HR [facility] Pantoprazole Sodium 40 mg 06/02/25 09:00 Pantoprazole 40 Mg Tablet PO DAILY [facility] Perflutren Lipid Microsphere 0 ml 06/02/25 03:37 Perflutren Lipid Microspheres 1.5 Ml Vial Diluted To 10 Ml Total Volume IV PUSH 06/05/25 03:37 ONCE PRN adequate visualization Protocol Radiology Results: ITS Impressions Chest/Abdomen/Pelvis CT 06/01/25 17:56 IMPRESSION: CHEST- 1. No acute findings. ABDOMEN/PELVIS- 1. Cystitis not excluded. 2. Mild colitis not excluded. 3. Otherwise no acute abnormality given noncontrast technique. Head CT 06/01/25 19:30 IMPRESSION: 1. No acute intracranial findings or change from prior exam. Labs Labs: Laboratory Results - last 24 hr 06/01/25 06/01/25 06/01/25 15:21 15:58 16:28 WBC 26.0 H RBC 5.04 Hgb 14.3 D Hct 43.6 MCV 86.5 MCH 28.4 MCHC 32.8 RDW 13.3 Plt Count 630 H D MPV 10.0 Immature Gran % (Auto) 0.5 Neut % (Auto) 84.3 H Lymph % (Auto) 8.6 L [place] % (Auto) 6.2 Eos % (Auto) 0.1 Baso % (Auto) 0.3 Lymph # (Auto) 2.23 [place] # (Auto) 1.6 H Eos # (Auto) 0.0 Baso # (Auto) 0.1 Abs Immat Gran (auto) 0.13 H Absolute Neuts (auto) 21.9 H Absolute Nucleated RBC 0.000 Nucleated RBC % 0.0 PT 15.2 H INR 1.2 APTT 31.1 Sodium 135 L Potassium 5.3 H Chloride 91 L Carbon Dioxide 18 L Anion Gap 26 H BUN 94 H D Creatinine 6.31 H Estim Creat Clear Calc 6 Estimated GFR 6 L Glucose 169 H POC Capillary Glucose 163 H Lactic Acid 2.6 H Calcium 9.1 Total Bilirubin 0.6 AST 24 ALT 14 Alkaline Phosphatase 91 Total Protein 9.4 H Albumin 4.7 Urine Color Yellow Urine Appearance Clear Urine pH 5.0 Ur Specific [place] 1.024 Urine Protein 2+ H Urine Glucose (UA) 3+ H Urine Ketones Trace H Ur Blood (Man) Negative Urine Nitrate Negative Urine Bilirubin Negative Urine Urobilinogen 0.2 Add Ur Microanalysis Reviewed Leukocyte Esterase Rfl Negative Urine RBC 0-2 Urine WBC 0-5 Ur Squamous Epith Cells None seen Urine Bacteria None seen Urine Casts 6-10 Influenza A (RT-PCR) Negative Influenza B (RT-PCR) Negative RSV (RT-PCR) Negative SARS-CoV-2 RNA (RT-PCR) Negative 06/01/25 18:32 WBC RBC Hgb Hct MCV MCH MCHC RDW Plt Count MPV Immature Gran % (Auto) Neut % (Auto) Lymph % (Auto) [place] % (Auto) Eos % (Auto) Baso % (Auto) Lymph # (Auto) [place] # (Auto) Eos # (Auto) Baso # (Auto) Abs Immat Gran (auto) Absolute Neuts (auto) Absolute Nucleated RBC Nucleated RBC % PT INR APTT Sodium Potassium Chloride Carbon Dioxide Anion Gap BUN Creatinine Estim Creat Clear Calc Estimated GFR Glucose POC Capillary Glucose Lactic Acid 1.8 Calcium Total Bilirubin AST ALT Alkaline Phosphatase Total Protein Albumin Urine Color Urine Appearance Urine pH Ur Specific [place] Urine Protein Urine Glucose (UA) Urine Ketones Ur Blood (Man) Urine Nitrate Urine Bilirubin Urine Urobilinogen Add Ur Microanalysis Leukocyte Esterase Rfl Urine RBC Urine WBC Ur Squamous Epith Cells Urine Bacteria Urine Casts Influenza A (RT-PCR) Influenza B (RT-PCR) RSV (RT-PCR) SARS-CoV-2 RNA (RT-PCR) Quality VTE Prophylaxis VTE prophylaxis: pharmacologic ordered
[2025-06-02 07:41] LABS: Hematocrit 38.2 % (37.0-47.0); Hemoglobin 12.5 g/dL (12.0-15.0); Mean Corpuscular HGB Conc 32.7 g/dl (32-36); Mean Corpuscular Hemoglobin 28.7 pg (26-34); Mean Corpuscular Volume 87.8 fl (80-100); Platelet Count Result 475 k/mm3 (150-375); Red Blood Count 4.35 M/mm3 (4.2-5.4); White Blood Count 35.5 K/mm3 (4.5-10.0)
[2025-06-02 08:24] LABS: Alanine Aminotransferase 12 U/L (6-35); Albumin Level 4.0 g/dL (3.5-5.1); Alkaline Phosphatase 71 U/L (38-126); Anion Gap 24 mmol/L (4-12); Aspartate Amino Transferase 21 U/L (14-36); Bilirubin,Total 0.6 mg/dL (0.2-1.3); Blood Urea Nitrogen 111 mg/dL (7-17); Calcium 8.3 mg/dL (8.4-10.2); Carbon Dioxide 16 mmol/L (22-30); Chloride 96 mmol/L (98-107); Estimated CRCL calculation 7 ml/min; Estimated Glomerular Filt Rate 7; Glucose 181 mg/dL (65-110); Potassium 5.2 mmol/L (3.4-5.0); Sodium 136 mmol/L (137-145); Total Protein 7.6 g/dL (6.3-8.2)
--- NOTE | 2025-06-02 08:59 | WPDURCON ---
Assessment and Plan Assessment and plan (1) Acute renal failure: Qualifiers: Acute renal failure type: unspecified Qualified Code(s): N17.9 - Acute kidney failure, unspecified Code(s): N17.9 - Acute kidney failure, unspecified Status: Acute (2) Starr catheter in place on admission: Code(s): Z97.8 - Presence of other specified devices Status: Acute Plan 75y old female with bladder wall thickening on ct with previous recent fungal uti -CT AP reveals Right kidney- No hydronephrosis. No renal stones.Left kidney- No hydronephrosis. No renal stones. Urinary bladder: Wall thickening. -ua was unremarkable for infection or blood. previous uti was fungal. Can obtain Urine cx. -WBC 35.5 today from yesterday it was 26.0. ID has been consulted. -cr 6.10 from 6.31 yesterday. consult nephrology -random bladder scans reveal less than 150ml. UOP is low however she hasnt been eating or drinking and IVF's were stopped. -No urologic surgical intervention at this time. -Could consider outpatient cystoscopy to evaluate bladder wall thickening. -We will follow peripherally. Call if needed. Urology Consult Note HPI Date Seen: 06/02/25 Requesting Physician: Melvin Diamond MD Primary Care Provider: Mateo Alfaro MD Consult Narrative Narrative: Aggie Donald is a 75 year old female history of diabetes, hypothyroidism, hypertension, recent fungal UTI who [facility] for altered mental status and generalized weakness. She had a starr on admit that was leaking around the meatus. Review of Systems Review of Systems: ROS unobtainable: Yes unobtainable due to mental status [facility] Past Medical History Medical History (Updated 06/02/25 @ 03:39 by Sirisha Purvis APRN) Hyperlipidemia Back pain Eczema Osteoarthritis Venous insufficiency (chronic) (peripheral) DM2 (diabetes mellitus, type 2) Non-ST elevated myocardial infarction (non-STEMI) Osteoarthritis of hands, bilateral Bilateral primary osteoarthritis of knee Essential (primary) hypertension Fibromyalgia Generalized anxiety disorder Arthralgia of multiple joints Surgical History Surgical History History of tubal ligation (~1989) Family History Family History Grandparent Acute myocardial infarction Cerebrovascular accident Heart disease Mother Colon polyp Diabetes mellitus Pancreatic adenocarcinoma Other Depression Hypertension Neuralgia of both lower extremities Social History Social History Social History: Surrogate medical decision maker: Shravan Ramsay, spouse. Code status: Full code. Smoking status: Former smoker Second hand tobacco smoke exposure: No Alcohol intake: never Substance use: never Substance use type: former substance user and marijuana Last use: 03/26/25 Do You Feel Safe in your Home?: Yes Lack of Transportation: No Lack of Food: Never True Current Housing: I Have Housing Concerned About Future Housing: No Difficulty Paying Gas/Electric Bills: No Difficulty Paying for Meds: No Currently Unemployed: No Education: Associate Degree Difficulty w/ Childcare or Family Care: No Living arrangements: with family Occupation/Education: retired Spiritual care concerns: No Agree to blood products: Yes Meds Home Medications and Allergies Home Medications ?Medication ?Instructions ?Recorded ?Confirmed ?Type lancet with blood glucose test #300 ea 01/29/23 06/01/25 Rx strips and pen needles combo pack blood sugar diagnostic (OneTouch #300 ea 05/20/23 06/01/25 Rx Verio test strips) flash glucose scanning reader #1 ea 05/20/23 06/01/25 Rx (FreeStyle Yulia 2 [place]) ammonium lactate 12 % lotion 1 applic topical DAILY #225 grams 10/26/24 06/01/25 Rx (AmLactin) clonidine HCl 0.3 mg tablet See Rx Instructions .Route 12/27/24 06/01/25 Rx .COMPLEX #60 tabs buspirone 10 mg tablet 10 mg PO BID #60 tabs 02/06/25 06/01/25 Rx semaglutide 7 mg tablet (Rybelsus) 7 mg PO DAILY #30 tabs 02/15/25 06/01/25 Rx gabapentin 300 mg capsule 300 mg PO DAILY #90 caps 03/03/25 06/01/25 Rx baclofen 10 mg tablet 10 mg PO TID muscle spasm 03/26/25 06/01/25 History metoprolol tartrate 100 mg tablet See Rx Instructions .Route 03/29/25 06/01/25 Rx .COMPLEX #180 tabs atorvastatin 20 mg tablet See Rx Instructions .Route 04/07/25 06/01/25 Rx .COMPLEX #90 tabs duloxetine 60 mg capsule,delayed See Rx Instructions .Route 04/07/25 06/01/25 Rx release .COMPLEX #90 ea flash glucose sensor (FreeStyle #2 ea 04/12/25 06/01/25 Rx Yulia 2 Sensor kit) spironolactone 25 mg tablet See Rx Instructions .Route 04/28/25 06/01/25 Rx .COMPLEX #30 tabs hydrocodone 5 mg-acetaminophen 325 1 tablet PO Q6H PRN pain #20 tabs 04/30/25 06/01/25 Rx mg tablet pantoprazole 40 mg tablet,delayed 40 mg PO DAILY #60 tabs 05/27/25 06/01/25 Rx release bisacodyl 10 mg rectal suppository 10 mg RECTAL DAILY PRN constipation 06/01/25 06/01/25 History cholecalciferol (vitamin D3) 25 1,000 unit PO DAILY 06/01/25 06/01/25 History mcg (1,000 unit) tablet dapagliflozin propanediol 10 mg 10 mg PO DAILY 06/01/25 06/01/25 History tablet (Farxiga) fenofibrate 50 mg capsule 50 mg PO DAILY 06/01/25 06/01/25 History magnesium citrate (Citroma oral 296 ml PO DAILY PRN constipation 06/01/25 06/01/25 History solution) magnesium hydroxide 400 mg/5 mL 30 ml PO HS PRN constipation 06/01/25 06/01/25 History oral suspension metformin 500 mg tablet,extended 1,000 mg PO BID 06/01/25 06/01/25 History release 24 hr pioglitazone 15 mg tablet 15 mg PO QAM 06/01/25 06/01/25 History Allergies Allergy/AdvReac Type Severity Reaction Status Date / Time amoxicillin (From Augmentin) Allergy Unknown Verified 06/01/25 16:03 clavulanic acid (From Allergy Unknown Verified 06/01/25 16:03 Augmentin) Vital Signs Vital Signs - 24 hr 06/01/25 15:10 06/01/25 15:18 06/01/25 15:21 Temperature 98.0 F Pulse Rate 124 H 124 H 124 H Respiratory Rate 17 16 16 Blood Pressure 172/92 H 172/92 H Pulse Oximetry 96 96 Oxygen Delivery Room Air 06/01/25 15:30 06/01/25 15:31 06/01/25 15:45 Temperature Pulse Rate 124 H 124 H 126 H Respiratory Rate 18 16 17 Blood Pressure 170/90 H Pulse Oximetry 96 96 95 Oxygen Delivery 06/01/25 15:46 06/01/25 15:47 06/01/25 16:00 Temperature Pulse Rate 126 H 126 H 125 H Respiratory Rate 15 15 16 Blood Pressure 161/87 H Pulse Oximetry 95 95 96 Oxygen Delivery 06/01/25 16:01 06/01/25 16:01 06/01/25 16:01 Temperature 98.7 F Pulse Rate 126 H 126 H Respiratory Rate 16 Blood Pressure 167/91 H Pulse Oximetry 96 96 Oxygen Delivery Room Air 06/01/25 16:02 06/01/25 16:03 06/01/25 16:15 Temperature Pulse Rate 126 H 125 H Respiratory Rate 17 18 Blood Pressure Pulse Oximetry 96 96 96 Oxygen Delivery Room Air 06/01/25 16:16 06/01/25 16:30 06/01/25 16:31 Temperature Pulse Rate 125 H 124 H 124 H Respiratory Rate 18 17 17 Blood Pressure 160/88 H 156/88 H Pulse Oximetry 96 96 96 Oxygen Delivery 06/01/25 16:32 06/01/25 16:45 06/01/25 16:46 Temperature Pulse Rate 124 H 125 H 126 H Respiratory Rate 18 18 17 Blood Pressure 168/92 H Pulse Oximetry 96 96 96 Oxygen Delivery 06/01/25 17:00 06/01/25 17:01 06/01/25 17:15 Temperature Pulse Rate 116 H 115 H 114 H Respiratory Rate 17 16 16 Blood Pressure 169/78 H Pulse Oximetry 95 95 96 Oxygen Delivery 06/01/25 17:16 06/01/25 17:17 06/01/25 17:30 Temperature Pulse Rate 116 H 116 H 121 H Respiratory Rate 17 16 16 Blood Pressure 174/78 H Pulse Oximetry 96 96 96 Oxygen Delivery 06/01/25 17:31 06/01/25 17:48 06/01/25 17:49 Temperature Pulse Rate 121 H 120 H 115 H Respiratory Rate 17 17 Blood Pressure 168/84 H 163/83 H Pulse Oximetry 96 95 96 Oxygen Delivery 06/01/25 18:00 06/01/25 18:01 06/01/25 18:15 Temperature Pulse Rate 116 H 117 H 113 H Respiratory Rate 17 16 16 Blood Pressure 140/76 Pulse Oximetry 93 95 98 Oxygen Delivery 06/01/25 18:16 06/01/25 18:30 06/01/25 18:31 Temperature Pulse Rate 114 H 113 H 113 H Respiratory Rate 17 19 18 Blood Pressure 140/80 157/80 H Pulse Oximetry 97 95 95 Oxygen Delivery 06/01/25 18:32 06/01/25 18:45 06/01/25 18:46 Temperature Pulse Rate 112 H 114 H 115 H Respiratory Rate 19 19 12 Blood Pressure 150/84 H Pulse Oximetry 94 94 97 Oxygen Delivery 06/01/25 19:00 06/01/25 19:01 06/01/25 19:40 Temperature Pulse Rate 119 H 119 H 117 H Respiratory Rate 16 18 16 Blood Pressure 185/98 H 171/85 H Pulse Oximetry 96 95 95 Oxygen Delivery 06/01/25 19:47 06/01/25 20:00 06/01/25 20:15 Temperature Pulse Rate 118 H 119 H 118 H Respiratory Rate 14 18 15 Blood Pressure Pulse Oximetry Oxygen Delivery 06/01/25 20:30 06/01/25 20:31 06/01/25 20:45 Temperature Pulse Rate 120 H 120 H 116 H Respiratory Rate 19 15 17 Blood Pressure 171/82 H 174/85 H Pulse Oximetry 97 96 96 Oxygen Delivery 06/01/25 21:28 06/01/25 21:32 06/01/25 22:00 Temperature 97.7 F Pulse Rate 119 H 116 H 119 H Respiratory Rate 16 17 Blood Pressure 188/89 H 174/85 H Pulse Oximetry 97 96 Oxygen Delivery 06/02/25 00:00 06/02/25 00:00 06/02/25 00:09 Temperature 98.1 F Pulse Rate 126 H 125 H Respiratory Rate 16 Blood Pressure 161/80 H Pulse Oximetry 96 Oxygen Delivery Room Air 06/02/25 02:44 06/02/25 04:00 06/02/25 04:00 Temperature Pulse Rate 126 H 123 H Respiratory Rate Blood Pressure Pulse Oximetry Oxygen Delivery Room Air 06/02/25 04:00 06/02/25 06:20 06/02/25 07:48 Temperature 98.2 F Pulse Rate 123 H 115 H 111 H Respiratory Rate 20 18 Blood Pressure 153/75 H 142/74 H Pulse Oximetry 95 96 Oxygen Delivery Exam Const: General: no acute distress Eyes: General: appearance normal, both eyes and all related structures Resp: Effort & Inspection: normal respiratory effort : Bimanual exam- vagina & uterus: bladder normal to palpation Other: random bladder scan less than 150ml Skin: General skin exam: normal color Neuro: Other: she does not speak or follow directions. she is moaning Results Labs 06/02/25 07:36 06/02/25 07:36 Labs: Short CBC 06/01/25 06/02/25 Range/Units 15:58 07:36 WBC 26.0 H 35.5 H (4.5-10.0) K/mm3 Hgb 14.3 D 12.5 (12.0-15.0) g/dL Hct 43.6 38.2 (37.0-47.0) % Plt Count 630 H D 475 H (150-375) k/mm3 BMP 06/01/25 06/02/25 15:58 07:36 Sodium 135 L 136 L Potassium 5.3 H 5.2 H Chloride 91 L 96 L Carbon Dioxide 18 L 16 L BUN 94 H D 111 H* D Creatinine 6.31 H 6.10 H Glucose 169 H 181 H Calcium 9.1 8.3 L Liver Function 06/01/25 06/02/25 Range/Units 15:58 07:36 Total Bilirubin 0.6 0.6 (0.2-1.3) mg/dL AST 24 21 (14-36) U/L ALT 14 12 (6-35) U/L Alkaline Phosphatase 91 71 (38-126) U/L Albumin 4.7 4.0 (3.5-5.1) g/dL Urine 06/01/25 Range/Units 15:58 Urine Color Yellow (Yellow) Urine Appearance Clear (Clear) Urine pH 5.0 (5.0-9.0) Ur Specific [place] 1.024 (1.001-1.035) Urine Protein 2+ H (Negative) mg/dL Urine Glucose (UA) 3+ H (Negative) mg/dL
--- NOTE | 2025-06-02 10:50 | WPDIDCN ---
Assessment and Plan Assessment and plan (1) Sepsis: Code(s): A41.9 - Sepsis, unspecified organism Status: Acute Assessment and Plan: -DDX includes septicemia vs. early HCAP vs. early prodrome of C.difficile colitis vs. other (2) Leukocytosis: Code(s): D72.829 - Elevated white blood cell count, unspecified Status: Resolved Assessment and Plan: -Reactive leukocytosis from possible infection Plan -Await blood cultures -Await urine culture although low suspicion for UTI -Monitor for diarrhea indicative of C.difficile infection -Continue Cefepime day 2 -Add Metronidazole IV empirically given mild colitis changes on CT scan Discussed with patient and at bedside. All questions answered. Patient was seen via video telehealth consultation with the assistance of staff. Chart, data, and patient independently reviewed. Patient was located at [facility] while I was located in my [place] office. Received verbal consent from patient. HPI Data of Consult Date/Time: 06/02/25 10:50 Requesting Physician: Melvin Diamond MD Primary Care Provider: Mateo Alfaro MD Consult Narrative Reason for consult: Suspected sepsis Narrative: Aggie Donald is a 75 year old female admitted from [facility] with weakness. She was admitted one month ago and treated for UTI. She is feeling weak and tired and unable to answer questions in detail. She denies sputum production, cough, dysuria, and diarrhea. CT scan shows possible mild colitis changes. No diarrhea noted on admission Review of Systems Review of Systems: All systems reviewed & are unremarkable except as noted in HPI and below PMFSH Past Medical History Medical History (Updated 06/02/25 @ 03:39 by Sirisha Purvis APRN) Hyperlipidemia Back pain Eczema Osteoarthritis Venous insufficiency (chronic) (peripheral) DM2 (diabetes mellitus, type 2) Non-ST elevated myocardial infarction (non-STEMI) Osteoarthritis of hands, bilateral Bilateral primary osteoarthritis of knee Essential (primary) hypertension Fibromyalgia Generalized anxiety disorder Arthralgia of multiple joints Surgical History Surgical History History of tubal ligation (~1989) Family History Family History Grandparent Acute myocardial infarction Cerebrovascular accident Heart disease Mother Colon polyp Diabetes mellitus Pancreatic adenocarcinoma Other Depression Hypertension Neuralgia of both lower extremities Social History Social History Social History: Surrogate medical decision maker: Shravan Ramsay, spouse. Code status: Full code. Smoking status: Former smoker Second hand tobacco smoke exposure: No Alcohol intake: never Substance use: never Substance use type: former substance user and marijuana Last use: 03/26/25 Do You Feel Safe in your Home?: Yes Lack of Transportation: No Lack of Food: Never True Current Housing: I Have Housing Concerned About Future Housing: No Difficulty Paying Gas/Electric Bills: No Difficulty Paying for Meds: No Currently Unemployed: No Education: Associate Degree Difficulty w/ Childcare or Family Care: No Living arrangements: with family Occupation/Education: retired Spiritual care concerns: No Agree to blood products: Yes Meds Home Medications and Allergies Home Medications ?Medication ?Instructions ?Recorded ?Confirmed ?Type lancet with blood glucose test #300 ea 01/29/23 06/01/25 Rx strips and pen needles combo pack blood sugar diagnostic (OneTouch #300 ea 05/20/23 06/01/25 Rx Verio test strips) flash glucose scanning reader #1 ea 05/20/23 06/01/25 Rx (TrackVia Yulia 2 [place]) ammonium lactate 12 % lotion 1 applic topical DAILY #225 grams 10/26/24 06/01/25 Rx (AmLactin) clonidine HCl 0.3 mg tablet See Rx Instructions .Route 12/27/24 06/01/25 Rx .COMPLEX #60 tabs buspirone 10 mg tablet 10 mg PO BID #60 tabs 02/06/25 06/01/25 Rx semaglutide 7 mg tablet (Rybelsus) 7 mg PO DAILY #30 tabs 02/15/25 06/01/25 Rx gabapentin 300 mg capsule 300 mg PO DAILY #90 caps 03/03/25 06/01/25 Rx baclofen 10 mg tablet 10 mg PO TID muscle spasm 03/26/25 06/01/25 History metoprolol tartrate 100 mg tablet See Rx Instructions .Route 03/29/25 06/01/25 Rx .COMPLEX #180 tabs atorvastatin 20 mg tablet See Rx Instructions .Route 04/07/25 06/01/25 Rx .COMPLEX #90 tabs duloxetine 60 mg capsule,delayed See Rx Instructions .Route 04/07/25 06/01/25 Rx release .COMPLEX #90 ea flash glucose sensor (FreeStyle #2 ea 04/12/25 06/01/25 Rx Yulia 2 Sensor kit) spironolactone 25 mg tablet See Rx Instructions .Route 04/28/25 06/01/25 Rx .COMPLEX #30 tabs hydrocodone 5 mg-acetaminophen 325 1 tablet PO Q6H PRN pain #20 tabs 04/30/25 06/01/25 Rx mg tablet pantoprazole 40 mg tablet,delayed 40 mg PO DAILY #60 tabs 05/27/25 06/01/25 Rx release bisacodyl 10 mg rectal suppository 10 mg RECTAL DAILY PRN constipation 06/01/25 06/01/25 History cholecalciferol (vitamin D3) 25 1,000 unit PO DAILY 06/01/25 06/01/25 History mcg (1,000 unit) tablet dapagliflozin propanediol 10 mg 10 mg PO DAILY 06/01/25 06/01/25 History tablet (Farxiga) fenofibrate 50 mg capsule 50 mg PO DAILY 06/01/25 06/01/25 History magnesium citrate (Citroma oral 296 ml PO DAILY PRN constipation 06/01/25 06/01/25 History solution) magnesium hydroxide 400 mg/5 mL 30 ml PO HS PRN constipation 06/01/25 06/01/25 History oral suspension metformin 500 mg tablet,extended 1,000 mg PO BID 06/01/25 06/01/25 History release 24 hr pioglitazone 15 mg tablet 15 mg PO QAM 06/01/25 06/01/25 History Allergies Allergy/AdvReac Type Severity Reaction Status Date / Time amoxicillin (From Augmentin) Allergy Unknown Verified 06/01/25 16:03 clavulanic acid (From Allergy Unknown Verified 06/01/25 16:03 Augmentin) Vital Signs Vital Signs - 24 hr 06/01/25 15:10 06/01/25 15:18 06/01/25 15:21 Temperature 98.0 F Pulse Rate 124 H 124 H 124 H Respiratory Rate 17 16 16 Blood Pressure 172/92 H 172/92 H Pulse Oximetry 96 96 Oxygen Delivery Room Air 06/01/25 15:30 06/01/25 15:31 06/01/25 15:45 Temperature Pulse Rate 124 H 124 H 126 H Respiratory Rate 18 16 17 Blood Pressure 170/90 H Pulse Oximetry 96 96 95 Oxygen Delivery 06/01/25 15:46 06/01/25 15:47 06/01/25 16:00 Temperature Pulse Rate 126 H 126 H 125 H Respiratory Rate 15 15 16 Blood Pressure 161/87 H Pulse Oximetry 95 95 96 Oxygen Delivery 06/01/25 16:01 06/01/25 16:01 06/01/25 16:01 Temperature 98.7 F Pulse Rate 126 H 126 H Respiratory Rate 16 Blood Pressure 167/91 H Pulse Oximetry 96 96 Oxygen Delivery Room Air 06/01/25 16:02 06/01/25 16:03 06/01/25 16:15 Temperature Pulse Rate 126 H 125 H Respiratory Rate 17 18 Blood Pressure Pulse Oximetry 96 96 96 Oxygen Delivery Room Air 06/01/25 16:16 06/01/25 16:30 06/01/25 16:31 Temperature Pulse Rate 125 H 124 H 124 H Respiratory Rate 18 17 17 Blood Pressure 160/88 H 156/88 H Pulse Oximetry 96 96 96 Oxygen Delivery 06/01/25 16:32 06/01/25 16:45 06/01/25 16:46 Temperature Pulse Rate 124 H 125 H 126 H Respiratory Rate 18 18 17 Blood Pressure 168/92 H Pulse Oximetry 96 96 96 Oxygen Delivery 06/01/25 17:00 06/01/25 17:01 06/01/25 17:15 Temperature Pulse Rate 116 H 115 H 114 H Respiratory Rate 17 16 16 Blood Pressure 169/78 H Pulse Oximetry 95 95 96 Oxygen Delivery 06/01/25 17:16 06/01/25 17:17 06/01/25 17:30 Temperature Pulse Rate 116 H 116 H 121 H Respiratory Rate 17 16 16 Blood Pressure 174/78 H Pulse Oximetry 96 96 96 Oxygen Delivery 06/01/25 17:31 06/01/25 17:48 06/01/25 17:49 Temperature Pulse Rate 121 H 120 H 115 H Respiratory Rate 17 17 Blood Pressure 168/84 H 163/83 H Pulse Oximetry 96 95 96 Oxygen Delivery 06/01/25 18:00 06/01/25 18:01 06/01/25 18:15 Temperature Pulse Rate 116 H 117 H 113 H Respiratory Rate 17 16 16 Blood Pressure 140/76 Pulse Oximetry 93 95 98 Oxygen Delivery 06/01/25 18:16 06/01/25 18:30 06/01/25 18:31 Temperature Pulse Rate 114 H 113 H 113 H Respiratory Rate 17 19 18 Blood Pressure 140/80 157/80 H Pulse Oximetry 97 95 95 Oxygen Delivery 06/01/25 18:32 06/01/25 18:45 06/01/25 18:46 Temperature Pulse Rate 112 H 114 H 115 H Respiratory Rate 19 19 12 Blood Pressure 150/84 H Pulse Oximetry 94 94 97 Oxygen Delivery 06/01/25 19:00 06/01/25 19:01 06/01/25 19:40 Temperature Pulse Rate 119 H 119 H 117 H Respiratory Rate 16 18 16 Blood Pressure 185/98 H 171/85 H Pulse Oximetry 96 95 95 Oxygen Delivery 06/01/25 19:47 06/01/25 20:00 06/01/25 20:15 Temperature Pulse Rate 118 H 119 H 118 H Respiratory Rate 14 18 15 Blood Pressure Pulse Oximetry Oxygen Delivery 06/01/25 20:30 06/01/25 20:31 06/01/25 20:45 Temperature Pulse Rate 120 H 120 H 116 H Respiratory Rate 19 15 17 Blood Pressure 171/82 H 174/85 H Pulse Oximetry 97 96 96 Oxygen Delivery 06/01/25 21:28 06/01/25 21:32 06/01/25 22:00 Temperature 97.7 F Pulse Rate 119 H 116 H 119 H Respiratory Rate 16 17 Blood Pressure 188/89 H 174/85 H Pulse Oximetry 97 96 Oxygen Delivery 06/02/25 00:00 06/02/25 00:00 06/02/25 00:09 Temperature 98.1 F Pulse Rate 126 H 125 H Respiratory Rate 16 Blood Pressure 161/80 H Pulse Oximetry 96 Oxygen Delivery Room Air 06/02/25 02:44 06/02/25 04:00 06/02/25 04:00 Temperature Pulse Rate 126 H 123 H Respiratory Rate Blood Pressure Pulse Oximetry Oxygen Delivery Room Air 06/02/25 04:00 06/02/25 06:20 06/02/25 07:48 Temperature 98.2 F Pulse Rate 123 H 115 H 111 H Respiratory Rate 20 18 Blood Pressure 153/75 H 142/74 H Pulse Oximetry 95 96 Oxygen Delivery 06/02/25 08:00 06/02/25 08:00 06/02/25 10:00 Temperature Pulse Rate 117 H 107 H Respiratory Rate Blood Pressure Pulse Oximetry Oxygen Delivery Room Air 06/02/25 10:24 Temperature Pulse Rate Respiratory Rate Blood Pressure Pulse Oximetry 95 Oxygen Delivery Room Air Exam Narrative: Gen: alert, fatigued Pulm: normal chest excursion, no accessory muscle use Abd: soft, nontender Ext: minimal edema Derm: no rash Lines:PIVs intact Results Labs 06/02/25 07:36 06/02/25 07:36 Labs: Short CBC 06/01/25 06/02/25 Range/Units 15:58 07:36 WBC 26.0 H 35.5 H (4.5-10.0) K/mm3 Hgb 14.3 D 12.5 (12.0-15.0) g/dL Hct 43.6 38.2 (37.0-47.0) % Plt Count 630 H D 475 H (150-375) k/mm3 BMP 06/01/25 06/02/25 15:58 07:36 Sodium 135 L 136 L Potassium 5.3 H 5.2 H Chloride 91 L 96 L Carbon Dioxide 18 L 16 L BUN 94 H D 111 H* D Creatinine 6.31 H 6.10 H Glucose 169 H 181 H Calcium 9.1 8.3 L Liver Function 06/01/25 06/02/25 Range/Units 15:58 07:36 Total Bilirubin 0.6 0.6 (0.2-1.3) mg/dL AST 24 21 (14-36) U/L ALT 14 12 (6-35) U/L Alkaline Phosphatase 91 71 (38-126) U/L Albumin 4.7 4.0 (3.5-5.1) g/dL Urine 06/01/25 Range/Units 15:58 Urine Color Yellow (Yellow) Urine Appearance Clear (Clear) Urine pH 5.0 (5.0-9.0) Ur Specific [place] 1.024 (1.001-1.035) Urine Protein 2+ H (Negative) mg/dL Urine Glucose (UA) 3+ H (Negative) mg/dL
[2025-06-02] MEDS: PERFLUTREN LIPID MICROSPHERES 1.5 ML VIAL DILUTED TO 10 ML TOTAL VOLUME IV PUSH (10:57)
--- NOTE | 2025-06-02 10:57 | IVDEFINITY ---
Prior to administration of IV Definity the patient was educated on the risks and benefits of the imaging enhancing agent including potential adverse side effects. The patient verbalized understanding. Allergies were verified. No exclusion criteria were identified and at least one of the following inclusion criteria were met: 1) physician request, 2) patient technically difficult to image (per the [place] [employer] guidelines of two or more segments not discernable within the apical view), or 3) questionable left ventricular function. ?
--- NOTE | 2025-06-02 12:22 | P.CONNP_ITS ---
Assessment and Plan Assessment and plan (1) Acute kidney injury: Code(s): N17.9 - Acute kidney failure, unspecified Status: Acute Assessment and Plan: * as noted by admission creatinine (6.31mg/dl) * creatinine 1.02mg/dl on discharge on 04/30/25 * etiology not clear -- infection/sepsis/SIRS, prerenal factors, other(?) * check urine studies and CPK * renal ultrasound a month ago noted * CT of A/P with no hydronephrosis * limited urine output noted * concern that altered mental status/encephalopathy may be due to uremia (BUN quite elevated)... * remains at risk for ELECTRONIC PAGINATION SYSTEM OPERATOR/dialysis * discussed with by phone in detail * follow trend of repeat lab and UOP (2) Hyperkalemia: Code(s): E87.5 - Hyperkalemia Status: Acute Assessment and Plan: * presumably due to RENEA in the context of spironolactone use and associated acidosis * s/p medical management * follow trend of K+ (3) Altered mental status: Qualifiers: Altered mental status type: unspecified Qualified Code(s): R41.82 - Altered mental status, unspecified Code(s): R41.82 - Altered mental status, unspecified Status: Acute Assessment and Plan: * apparently normal mentation at baseline (as noted by progress notes from last hospitalization) * possibly secondary to uremia versus underlying infecton (given elevated WBC) versus other(?) * follow mentation (4) Leukocytosis: Code(s): D72.829 - Elevated white blood cell count, unspecified Status: Acute Assessment and Plan: * concern is for possible infection/sepsis * no clear source at this time * follow culture data * Infectious Disease recommendations noted * on antibiotics (5) Metabolic acidosis: Code(s): E87.20 - Acidosis, unspecified Status: Acute Assessment and Plan: * due to RENEA/ARF * initial lactic acidosis on admission likely contributing as well * lactic acid has normalized * consider bicarb gtt if respiratory status allows... * follow trend of CO2 (6) Congestive heart failure: Code(s): I50.9 - Heart failure, unspecified Status: Chronic Assessment and Plan: * reported history * appears compensated at this time * Echo (on 06/02) noted: * left ventricular systolic function is hyperdynamic, estimated at >70. There is mild concentric increased * left ventricular diastolic function is grade I diastolic dysfunction * mild aortic valve sclerosis * mitral valve annulus is severely calcified * mild tricuspid valve regurgitation * follow volume status (7) Essential (primary) hypertension: Code(s): I10 - Essential (primary) hypertension Status: Chronic Assessment and Plan: * running a bit on the high side * restart home BP medications gradually * holding spironolactone * follow trend of hemodynamics (8) DM2 (diabetes mellitus, type 2): Qualifiers: Diabetes mellitus complication status: with hyperglycemia Diabetes mellitus intermediate project manager insulin use: without intermediate project manager use Qualified Code(s): E11.65 - Type 2 diabetes mellitus with hyperglycemia Code(s): E11.9 - Type 2 diabetes mellitus without complications Status: Chronic Assessment and Plan: * follow accu-cheks * glycemic control per hospitalist Long and extensive discussion (> 20 minutes) with the patient's by phone regarding her acute kidney injury/acute renal failure along with the concerns that uremia may be a potential reason for her current encephalopathy. I voiced my concerns that the patient may need/require renal replacement therapy/dialysis if her kidney function and/or mental status continues to deteriorate. He appeared to voice understanding and would be willing to proceed with ELECTRONIC PAGINATION SYSTEM OPERATOR/dialysis if needed. I will continue to follow the patient with you while she remains hospitalized and make further recommendations as deemed necessary. Thank you for allowing me to participate in the care of this patient. L History of Present Illness Reason for Consult Consult date: 06/02/25 Reason for consult: acute renal failure Chief Complaint Chief complaint: Acute renal failure,hyperkalemia,sepsis,possible U History of Present Illness Narrative: All the information that I have obtained is from review of the electronic medical record as well as discussion with the physician/nurses involved in the patient's care as I am unable to get any history from the patient due to her altered mental status/encephalopathy. The patient is a 75-year-old female with a past medical history as outlined below who presented to [facility] Emergency Room via EMS from her nursing facility due to altered mental status and generalized weakness. I am not entirely sure or clear exactly how long her mentation has been altered or for that matter how long the patient has been weak but apparently, according to the patient's , she has been having on and off issues with recurrent urinary tract infections for last few weeks including a recent hospitalization here at [facility] in late April 2025 for a fungal UTI. From my discussion with the ER physician, she apparently also had some mild abdominal pain but I am unable to elicit this history from the patient. In any case, due to these constellation of findings, her nursing facility called EMS and she was subsequently transported to the emergency room for further assessment. Workup and evaluation emergency room demonstrated the patient to be hemodynamically stable (if not hypertensive) and tachycardic but afebrile. According to the ER physician, the patient was somnolent/ lethargic but did follow commands intermittently when given. Subsequent testing was notable for a white blood cell count of 26,000, hemoglobin 14.3, platelet count 630, sodium 135, potassium 5.3, bicarb 18 BUN 94, creatinine 6.31, glucose 169 lactic acid 2.6, calcium 9.1, normal LFTs, albumin 4.7. Viral testing for influenza, RSV, and COVID were negative and her urinalysis was significant for 2+ protein, 3+ glucose trace ketones but negative nitrite and negative leukocyte esterase. Given her abdominal pain, a CT scan of the chest, abdomen, and pelvis was done which showed no acute findings in her chest but with possible cystitis and mild colitis in her abdomen/pelvis. She received medical management for hyperkalemia as well as IV fluids and was initiated on empiric IV antibiotic therapy after appropriate cultures were obtained due to her significant leukocytosis. Since her admission, she has been seen in consultation by Urology as well as Infectious Disease with no planned intervention from a urological perspective and the addition of IV Flagyl in conjunction with her IV cefepime given the concern for early sepsis/infection from an infectious disease perspective. Renal consultation was requested due to her acute kidney injury/acute renal failure. From review her records, it would seem the patient's baseline renal function/ creatinine is well within normal limits running around 0.86 - 0.90 mg/dL a couple of months ago. However, it should be noted that during her last hospitalization here in late April of 2025, her renal function was fluctuating anywhere from 0.96-1.20 mg/dL with a discharge creatinine of 1.02 mg/dL although these fluctuations in her kidney function were in the context of catheter associated urinary tract infection which was placed due to evidence of urinary retention with her urine culture growing out Claudia albicans and was treated with a combination of IV antibiotics and oral antifungal therapy. as mentioned above, on presentation to the emergency room on this hospitalization her creatinine was up to 6.3 mg/dL which is a marked change from her discharge creatinine. Given the limited history provided by the patient and her along with her nursing facility, the exact etiology of her decline in kidney function is not entirely clear but the concern is that of sepsis given her markedly elevated white blood cell count in conjunction with her altered mentation. Currently, at the time my evaluation, the patient is altered/encephalopathic and is not answering my questions consistently. Review of Systems 2 Review of Systems: As per HPI. [facility] Past Medical History Medical History (Updated 06/04/25 @ 17:59 by Charlene Albright APRN) Depression Hyperlipidemia Back pain Venous insufficiency (chronic) (peripheral) Eczema DM2 (diabetes mellitus, type 2) Non-ST elevated myocardial infarction (non-STEMI) Osteoarthritis of hands, bilateral Bilateral primary osteoarthritis of knee Osteoarthritis Essential (primary) hypertension Fibromyalgia Generalized anxiety disorder Arthralgia of multiple joints Surgical History Surgical History History of tubal ligation (~1989) Family History Family History Grandparent Acute myocardial infarction Cerebrovascular accident Heart disease Mother Colon polyp Diabetes mellitus Pancreatic adenocarcinoma Other Depression Hypertension Neuralgia of both lower extremities Social History Social History Social History: Surrogate medical decision maker: Shravan Abebeandrea, spouse. Code status: Full code. Smoking status: Former smoker Second hand tobacco smoke exposure: No Alcohol intake: never Substance use: never Substance use type: former substance user and marijuana Last use: 03/26/25 Do You Feel Safe in your Home?: Yes Lack of Transportation: No Lack of Food: Never True Current Housing: I Have Housing Concerned About Future Housing: No Difficulty Paying Gas/Electric Bills: No Difficulty Paying for Meds: No Currently Unemployed: No Education: Associate Degree Difficulty w/ Childcare or Family Care: No Living arrangements: with family Occupation/Education: retired Spiritual care concerns: No Agree to blood products: Yes Meds Home Medications and Allergies Home Medications ?Medication ?Instructions ?Recorded ?Confirmed ?Type lancet with blood glucose test #300 ea 01/29/23 Rx strips and pen needles combo pack blood sugar diagnostic (OneTouch #300 ea 05/20/2305/05 Rx Verio test strips) flash glucose scanning reader #1 ea 05/20/23 06/01/25 Rx (FreeStyle Yulia 2 Bigfoot) ammonium lactate 12 % lotion 1 applic topical DAILY #2 25 grams 10/26/24 06/01/25 Rx (AmLactin) clonidine HCl 0.3 mg tablet See Rx Instructions .Route 12/27/24 06/01/25 Rx .COMPLEX #60 tabs buspirone 10 mg tablet 10 mg PO BID #60 tabs 06/01/25 Rx gabapentin 300 mg capsule 300 mg PO DAILY #90 caps 10/2706/01/25 Rx baclofen 10 mg tablet 10 mg PO TID muscle spasm 06/01/25 History metoprolol tartrate 100 mg tablet See Rx Instructions .Route 03/29/25 06/01/25 Rx .COMPLEX #180 tabs atorvastatin 20 mg tablet See Rx Instructions .Route 0 04/07/25 06/01/25 Rx .COMPLEX #90 tabs duloxetine 60 mg capsule,delayed See Rx Instructions . Route 04/07/25 06/01/25 Rx release .COMPLEX #90 ea flash glucose sensor (FreeStyle #2 ea 04/12/25 5 Rx Yulia 2 Sensor kit) spironolactone 25 mg tablet See Rx Instructions .Route 04/28/25 06/01/25 Rx .COMPLEX #30 tabs hydrocodone 5 mg-acetaminophen 325 1 tablet PO Q6H PRN pain #20 tabs 04/30/25 06/01/25 Rx mg tablet pantoprazole 40 mg tablet,delayed 40 mg PO DAILY #60 t abs 05/27/25 06/01/25 Rx release bisacodyl 10 mg rectal suppository 10 mg RECTAL DAILY PRN constipation 06/01/25 06/01/25 History cholecalciferol (vitamin D3) 25 1,000 unit PO DAILY 06/01/25 History mcg (1,000 unit) tablet dapagliflozin propanediol 10 mg 10 mg PO DAILY 5 06/01/25 History tablet (Farxiga) fenofibrate 50 mg capsule 50 mg PO DAILY 06/01/25/ History magnesium citrate (Citroma oral 296 ml PO DAILY PRN co nstipation 06/01/25 06/01/25 History solution) magnesium hydroxide 400 mg/5 mL 30 ml PO HS PRN consti pation 06/01/25 06/01/25 History oral suspension metformin 500 mg tablet,extended 1,000 mg PO BID 06/0106/01/25 History release 24 hr pioglitazone 15 mg tablet 15 mg PO QAM 06/01/25 History semaglutide 7 mg tablet (Rybelsus) See Rx Instructions .Route 06/03/25 Rx .COMPLEX #30 tabs Allergies Allergy/AdvReac Type Severity Reaction Status Date / Time amoxicillin (From Augmentin) Allergy Unknown Verified 06/03/25 15:06 clavulanic acid (From Allergy Unknown Verified 06/03/25 15:06 Augmentin) Vital Signs Vital Signs Temp Pulse Resp BP Pulse Ox O2 Del Method 06/02/25 12:00 102 H Room Air 06/02/25 11:50 103 H 18 122/66 97 06/02/25 10:24 95 Room Air 06/02/25 10:00 107 H 06/02/25 08:00 117 H 06/02/25 08:00 Room Air 06/02/25 07:48 111 H 18 142/74 H 96 06/02/25 06:20 115 H 06/02/25 04:00 98.2 F 123 H 20 153/75 H 95 06/02/25 04:00 123 H 06/02/25 04:00 Room Air 06/02/25 02:44 126 H 06/02/25 00:09 98.1 F 125 H 16 161/80 H 96 06/02/25 00:00 Room Air 06/02/25 00:00 126 H 06/01/25 22:00 119 H 06/01/25 21:32 116 H 17 174/85 H 96 06/01/25 21:28 97.7 F 119 H 16 188/89 H 97 06/01/25 20:45 116 H 17 174/85 H 96 06/01/25 20:31 120 H 15 171/82 H 96 06/01/25 20:30 120 H 19 97 06/01/25 20:15 118 H 15 06/01/25 20:00 119 H 18 06/01/25 19:47 118 H 14 06/01/25 19:40 117 H 16 171/85 H 95 06/01/25 19:01 119 H 18 185/98 H 95 06/01/25 19:00 119 H 16 96 06/01/25 18:46 115 H 12 150/84 H 97 06/01/25 18:45 114 H 19 94 06/01/25 18:32 112 H 19 94 06/01/25 18:31 113 H 18 157/80 H 95 06/01/25 18:30 113 H 19 95 06/01/25 18:16 114 H 17 140/80 97 06/01/25 18:15 113 H 16 98 06/01/25 18:01 117 H 16 140/76 95 06/01/25 18:00 116 H 17 93 06/01/25 17:49 115 H 17 163/83 H 96 06/01/25 17:48 120 H 95 06/01/25 17:31 121 H 17 168/84 H 96 06/01/25 17:30 121 H 16 96 06/01/25 17:17 116 H 16 96 06/01/25 17:16 116 H 17 174/78 H 96 06/01/25 17:15 114 H 16 96 Exam 2 Narrative: GENERAL APPEARANCE: elderly but well developed well nourished female in no acute distress HEENT: normocephalic, atraumatic, normal conjunctiva and sclera, nares patient NECK: no lymphadenopathy, thyromegaly, or JVD MOUTH: normal lips, teeth, and gums CARDIOVASCULAR: RRR, normal S1 and S2, no rub RESPIRATORY: coarse breath sounds ABDOMEN: soft, nontender, nondistended, positive bowel sounds present EXTREMITIES: no evidence of cyanosis, clubbing, or edema NEUROLOGICAL: confused but awake and speaks a few words; no focal deficits noted Results Lab Results 06/05/25 05:10 06/05/25 05:10 Lab results: Most recent lab results Calcium 8.3 mg/dL (8.4-10.2) L 06/02/25 07:36
--- NOTE | 2025-06-02 15:18 | PC.NURSE ---
On 06/02/25, the student, Tisha, provided care and completed [facility] documentation on this patient. I have reviewed the student's documentation and agree with the findings.
[2025-06-02] MEDS: metroNIDAZOLE 500 MG/ISO 100ML 500 MG/100 ML BAG 100 MG IVPB ×2 (16:37→21:39)
[2025-06-02] MEDS: CEFEPIME 1 GM in SODIUM CHLORIDE 0.9% IV 50 ML 100 ML IVPB (18:34)
[2025-06-02 23:46] LABS: Urine Eos QC 2nd Tech Confirmed
[2025-06-02 23:49] LABS: Urea Random Urine 265 MG/DL
[2025-06-03] VITALS (26 sets, daily range): BP systolic 93–182; BP diastolic 64–100; PULSE 103–131; RESP 15–22; TEMP 35.9–37.3; O2SAT 96–100
[2025-06-03 00:18] LABS: Total Protein Urine Random 276 mg/dL; Ur Ttl Prot Creatinine Ratio 4.85 mg/mg (0-0.20)
[2025-06-03 00:19] LABS: Total Protein Urine Random 276 mg/dL
[2025-06-03 04:28] LABS: Hematocrit 37.8 % (37.0-47.0); Hemoglobin 12.3 g/dL (12.0-15.0); Mean Corpuscular HGB Conc 32.5 g/dl (32-36); Mean Corpuscular Hemoglobin 28.8 pg (26-34); Mean Corpuscular Volume 88.5 fl (80-100); Platelet Count Result 388 k/mm3 (150-375); Red Blood Count 4.27 M/mm3 (4.2-5.4); White Blood Count 22.6 K/mm3 (4.5-10.0)
[2025-06-03 04:38] LABS: Partial Thromboplastin Time 31.7 Seconds (22.3-36.8)
[2025-06-03 04:57] LABS: Alanine Aminotransferase 7 U/L (6-35); Albumin Level 3.9 g/dL (3.5-5.1); Alkaline Phosphatase 76 U/L (38-126); Anion Gap 25 mmol/L (4-12); Aspartate Amino Transferase 26 U/L (14-36); Bilirubin,Total 0.6 mg/dL (0.2-1.3); Calcium 8.3 mg/dL (8.4-10.2); Carbon Dioxide 13 mmol/L (22-30); Chloride 96 mmol/L (98-107); Creatine Kinase < 20 U/L (30-135); Estimated CRCL calculation 6 ml/min; Estimated Glomerular Filt Rate 6; Glucose 121 mg/dL (65-110); Magnesium 2.3 mg/dL (1.6-2.3); Potassium 5.4 mmol/L (3.4-5.0); Sodium 134 mmol/L (137-145); Total Protein 7.7 g/dL (6.3-8.2)
[2025-06-03 04:59] LABS: Blood Urea Nitrogen 123 mg/dL (7-17)
[2025-06-03 05:19] LABS: Hepatitis B Surface Antigen Negative (Negative)
[2025-06-03 05:31] LABS: Hepatitis B Core IgM Result Negative (Negative)
[2025-06-03 05:36] LABS: Hepatitis B Surface Anti Res Negative
[2025-06-03] MEDS: metroNIDAZOLE 500 MG/ISO 100ML 500 MG/100 ML BAG 100 MG IVPB ×3 (05:38→21:36)
[2025-06-03] MEDS: SODIUM ZIRCONIUM CYCLOSILICATE 10 GM POWD.PACK PO (06:35)
[2025-06-03] MEDS: SODIUM BICARBONATE 8.4% 75 MEQ in SODIUM CHLORIDE 0.45% 1,000 ML IV CONT (06:58)
--- NOTE | 2025-06-03 08:04 | P.CDI_ITS ---
CDI Query Clarification Request BMI: 24.0 Nutritional Diagnostic Statement: Please refer to the comprehensive nutrition assessment for further information. If you agree with diagnosis of Severe protein calorie malnutrition related to chronic loss of appetite as evidenced by weight loss 13%/7 months, 7%/1 month; intakes <75% needs >1 month; moderate fat loss; severe muscle wasting. Please specify severity if known: * Mild * Moderate * Severe * Other/Unknown <Marietta Espino RN - Last Filed: 06/03/25 08:04> Clarified Diagnosis Clarified Diagnosis: * Severe <Rony Olmos MD - Last Filed: 06/03/25 08:36>
--- NOTE | 2025-06-03 08:06 | PM.CNGS ---
Assessment and Plan Assessment and plan (1) Sepsis: Code(s): A41.9 - Sepsis, unspecified organism Status: Acute (2) RENEA (acute kidney injury): Code(s): N17.9 - Acute kidney failure, unspecified Status: Acute (3) Encounter for central line placement: Code(s): Z45.2 - Encounter for adjustment and management of vascular access device Status: Acute Assessment and Plan: Plan to place temporary dialysis catheter using ultrasound and under fluoroscopy in the operating room this afternoon. History of Present Illness Consult details Consult date: 06/03/25 Requesting physician: Mariela Villa MD Narrative: Patient has uremia and sepsis. Requested to place temporary dialysis catheter. [facility] Past Medical History Medical History (Updated 06/03/25 @ 08:08 by Law Dean MD) Hyperlipidemia Back pain Eczema Osteoarthritis Venous insufficiency (chronic) (peripheral) DM2 (diabetes mellitus, type 2) Non-ST elevated myocardial infarction (non-STEMI) Osteoarthritis of hands, bilateral Bilateral primary osteoarthritis of knee Essential (primary) hypertension Fibromyalgia Generalized anxiety disorder Arthralgia of multiple joints Surgical History Surgical History History of tubal ligation (~1989) Family History Family History Grandparent Acute myocardial infarction Cerebrovascular accident Heart disease Mother Colon polyp Diabetes mellitus Pancreatic adenocarcinoma Other Depression Hypertension Neuralgia of both lower extremities Social History Social History Social History: Surrogate medical decision maker: Shravan Ramsay, spouse. Code status: Full code. Smoking status: Former smoker Second hand tobacco smoke exposure: No Alcohol intake: never Substance use: never Substance use type: former substance user and marijuana Last use: 03/26/25 Do You Feel Safe in your Home?: Yes Lack of Transportation: No Lack of Food: Never True Current Housing: I Have Housing Concerned About Future Housing: No Difficulty Paying Gas/Electric Bills: No Difficulty Paying for Meds: No Currently Unemployed: No Education: Associate Degree Difficulty w/ Childcare or Family Care: No Living arrangements: with family Occupation/Education: retired Spiritual care concerns: No Agree to blood products: Yes Meds Home Medications and Allergies Home Medications ?Medication ?Instructions ?Recorded ?Confirmed ?Type lancet with blood glucose test #300 ea 01/29/23 06/01/25 Rx strips and pen needles combo pack blood sugar diagnostic (OneTouch #300 ea 05/20/23 06/01/25 Rx Verio test strips) flash glucose scanning reader #1 ea 05/20/23 06/01/25 Rx (FreeStyle Yulia 2 [place]) ammonium lactate 12 % lotion 1 applic topical DAILY #225 grams 10/26/24 06/01/25 Rx (AmLactin) clonidine HCl 0.3 mg tablet See Rx Instructions .Route 12/27/24 06/01/25 Rx .COMPLEX #60 tabs buspirone 10 mg tablet 10 mg PO BID #60 tabs 02/06/25 06/01/25 Rx gabapentin 300 mg capsule 300 mg PO DAILY #90 caps 03/03/25 06/01/25 Rx baclofen 10 mg tablet 10 mg PO TID muscle spasm 03/26/25 06/01/25 History metoprolol tartrate 100 mg tablet See Rx Instructions .Route 03/29/25 06/01/25 Rx .COMPLEX #180 tabs atorvastatin 20 mg tablet See Rx Instructions .Route 04/07/25 06/01/25 Rx .COMPLEX #90 tabs duloxetine 60 mg capsule,delayed See Rx Instructions .Route 04/07/25 06/01/25 Rx release .COMPLEX #90 ea flash glucose sensor (FreeStyle #2 ea 04/12/25 06/01/25 Rx Yulia 2 Sensor kit) spironolactone 25 mg tablet See Rx Instructions .Route 04/28/25 06/01/25 Rx .COMPLEX #30 tabs hydrocodone 5 mg-acetaminophen 325 1 tablet PO Q6H PRN pain #20 tabs 04/30/25 06/01/25 Rx mg tablet pantoprazole 40 mg tablet,delayed 40 mg PO DAILY #60 tabs 05/27/25 06/01/25 Rx release bisacodyl 10 mg rectal suppository 10 mg RECTAL DAILY PRN constipation 06/01/25 06/01/25 History cholecalciferol (vitamin D3) 25 1,000 unit PO DAILY 06/01/25 06/01/25 History mcg (1,000 unit) tablet dapagliflozin propanediol 10 mg 10 mg PO DAILY 06/01/25 06/01/25 History tablet (Farxiga) fenofibrate 50 mg capsule 50 mg PO DAILY 06/01/25 06/01/25 History magnesium citrate (Citroma oral 296 ml PO DAILY PRN constipation 06/01/25 06/01/25 History solution) magnesium hydroxide 400 mg/5 mL 30 ml PO HS PRN constipation 06/01/25 06/01/25 History oral suspension metformin 500 mg tablet,extended 1,000 mg PO BID 06/01/25 06/01/25 History release 24 hr pioglitazone 15 mg tablet 15 mg PO QAM 06/01/25 06/01/25 History semaglutide 7 mg tablet (Rybelsus) See Rx Instructions .Route 06/03/25 Rx .COMPLEX #30 tabs Allergies Allergy/AdvReac Type Severity Reaction Status Date / Time amoxicillin (From Augmentin) Allergy Unknown Verified 06/01/25 16:03 clavulanic acid (From Allergy Unknown Verified 06/01/25 16:03 Augmentin) Vital Signs Vital Signs - 24 hr 06/02/25 10:00 06/02/25 10:24 06/02/25 11:50 Temperature Pulse Rate 107 H 103 H Respiratory Rate 18 Blood Pressure 122/66 Pulse Oximetry 95 97 Oxygen Delivery Room Air Fraction of Inspired Oxygen 06/02/25 12:00 06/02/25 12:00 06/02/25 14:00 Temperature Pulse Rate 102 H 98 Respiratory Rate Blood Pressure Pulse Oximetry Oxygen Delivery Room Air Fraction of Inspired Oxygen 06/02/25 15:33 06/02/25 15:34 06/02/25 16:00 Temperature 36.8 C Pulse Rate 101 H 102 H Respiratory Rate 16 Blood Pressure 143/56 H Pulse Oximetry 95 Oxygen Delivery Room Air Fraction of Inspired Oxygen 06/02/25 18:00 06/02/25 20:00 06/02/25 20:00 Temperature 37.2 C Pulse Rate 108 H 111 H Respiratory Rate 16 Blood Pressure 161/66 H Pulse Oximetry 95 Oxygen Delivery Room Air Fraction of Inspired Oxygen 06/02/25 20:00 06/02/25 20:16 06/02/25 22:00 Temperature Pulse Rate 111 H 110 H 108 H Respiratory Rate 20 Blood Pressure Pulse Oximetry 95 Oxygen Delivery Room Air Fraction of Inspired Oxygen 21 06/02/25 23:38 06/03/25 00:00 06/03/25 00:00 Temperature 36.7 C Pulse Rate 105 H 106 H Respiratory Rate 16 Blood Pressure 111/52 L Pulse Oximetry 97 Oxygen Delivery Room Air Fraction of Inspired Oxygen 06/03/25 02:00 06/03/25 04:00 06/03/25 04:00 Temperature Pulse Rate 103 H 112 H Respiratory Rate Blood Pressure Pulse Oximetry Oxygen Delivery Room Air Fraction of Inspired Oxygen 06/03/25 04:00 06/03/25 05:54 06/03/25 07:52 Temperature 37.0 C Pulse Rate 113 H 109 H Respiratory Rate 16 Blood Pressure 162/70 H Pulse Oximetry 96 Oxygen Delivery Room Air Fraction of Inspired Oxygen Results Labs 06/03/25 04:08 06/03/25 04:08 Labs: Abnormal lab results 06/02/25 06/02/25 06/02/25 Range/Units 07:36 11:40 16:21 WBC (4.5-10.0) K/mm3 Plt Count (150-375) k/mm3 Sodium 136 L (137-145) mmol/L Potassium 5.2 H (3.4-5.0) mmol/L Chloride 96 L (98-107) mmol/L Carbon Dioxide 16 L (22-30) mmol/L Anion Gap 24 H (4-12) mmol/L BUN 111 H* D (7-17) mg/dL Creatinine 6.10 H (0.7-1.0) mg/dL Estimated GFR 7 L (59 - ) Glucose 181 H (65-110) mg/dL POC Capillary Glucose 137 H 115 H (65-105) mg/dl Calcium 8.3 L (8.4-10.2) mg/dL Phosphorus (2.5-4.5) mg/dL Total Creatine Kinase (30-135) U/L Protein/Creat Ratio 2 (0-0.20) mg/mg 06/02/25 06/02/25 06/03/25 Range/Units 20:11 22:33 04:08 WBC 22.6 H (4.5-10.0) K/mm3 Plt Count 388 H (150-375) k/mm3 Sodium 134 L (137-145) mmol/L Potassium 5.4 H (3.4-5.0) mmol/L Chloride 96 L (98-107) mmol/L Carbon Dioxide 13 L (22-30) mmol/L Anion Gap 25 H (4-12) mmol/L BUN 123 H* D (7-17) mg/dL Creatinine 6.69 H (0.7-1.0) mg/dL Estimated GFR 6 L (59 - ) Glucose 121 H (65-110) mg/dL POC Capillary Glucose 136 H (65-105) mg/dl Calcium 8.3 L (8.4-10.2) mg/dL Phosphorus 12.0 H (2.5-4.5) mg/dL Total Creatine Kinase < 20 L (30-135) U/L Protein/Creat Ratio 2 4.85 H (0-0.20) mg/mg 06/03/25 Range/Units 07:46 WBC (4.5-10.0) K/mm3 Plt Count (150-375) k/mm3 Sodium (137-145) mmol/L Potassium (3.4-5.0) mmol/L Chloride (98-107) mmol/L Carbon Dioxide (22-30) mmol/L Anion Gap (4-12) mmol/L BUN (7-17) mg/dL Creatinine (0.7-1.0) mg/dL Estimated GFR (59 - ) Glucose (65-110) mg/dL POC Capillary Glucose 113 H (65-105) mg/dl Calcium (8.4-10.2) mg/dL Phosphorus (2.5-4.5) mg/dL Total Creatine Kinase (30-135) U/L Protein/Creat Ratio 2 (0-0.20) mg/mg Diabetes panel 06/02/25 06/03/25 Range/Units 07:36 04:08 Sodium 136 L 134 L (137-145) mmol/L Potassium 5.2 H 5.4 H (3.4-5.0) mmol/L Chloride 96 L 96 L (98-107) mmol/L Carbon Dioxide 16 L 13 L (22-30) mmol/L BUN 111 H* D 123 H* D (7-17) mg/dL Creatinine 6.10 H 6.69 H (0.7-1.0) mg/dL Glucose 181 H 121 H (65-110) mg/dL Calcium 8.3 L 8.3 L (8.4-10.2) mg/dL AST 21 26 (14-36) U/L ALT 12 7 (6-35) U/L Alkaline Phosphatase 71 76 (38-126) U/L Total Protein 7.6 7.7 (6.3-8.2) g/dL Albumin 4.0 3.9 (3.5-5.1) g/dL Calcium panel 06/02/25 06/03/25 Range/Units 07:36 04:08 Calcium 8.3 L 8.3 L (8.4-10.2) mg/dL Phosphorus 12.0 H (2.5-4.5) mg/dL Albumin 4.0 3.9 (3.5-5.1) g/dL Pituitary panel 06/02/25 06/03/25 Range/Units 07:36 04:08 Sodium 136 L 134 L (137-145) mmol/L Potassium 5.2 H 5.4 H (3.4-5.0) mmol/L Chloride 96 L 96 L (98-107) mmol/L Carbon Dioxide 16 L 13 L (22-30) mmol/L BUN 111 H* D 123 H* D (7-17) mg/dL Creatinine 6.10 H 6.69 H (0.7-1.0) mg/dL Glucose 181 H 121 H (65-110) mg/dL Calcium 8.3 L 8.3 L (8.4-10.2) mg/dL Adrenal panel 06/02/25 06/03/25 Range/Units 07:36 04:08 Sodium 136 L 134 L (137-145) mmol/L Potassium 5.2 H 5.4 H (3.4-5.0) mmol/L Chloride 96 L 96 L (98-107) mmol/L Carbon Dioxide 16 L 13 L (22-30) mmol/L BUN 111 H* D 123 H* D (7-17) mg/dL Creatinine 6.10 H 6.69 H (0.7-1.0) mg/dL Glucose 181 H 121 H (65-110) mg/dL Calcium 8.3 L 8.3 L (8.4-10.2) mg/dL Total Bilirubin 0.6 0.6 (0.2-1.3) mg/dL AST 21 26 (14-36) U/L ALT 12 7 (6-35) U/L Alkaline Phosphatase 71 76 (38-126) U/L Total Protein 7.6 7.7 (6.3-8.2) g/dL Albumin 4.0 3.9 (3.5-5.1) g/dL All other labs normal.
--- NOTE | 2025-06-03 08:42 | WPDINFPN2 ---
Progress Note: A&P Assessment and Plan (1) Severe sepsis: Code(s): A41.9 - Sepsis, unspecified organism; R65.20 - Severe sepsis without septic shock Status: Acute (2) Acute kidney injury: Code(s): N17.9 - Acute kidney failure, unspecified Status: Acute (3) Colitis: Code(s): K52.9 - Noninfective gastroenteritis and colitis, unspecified Status: Acute (4) Leukocytosis: Code(s): D72.829 - Elevated white blood cell count, unspecified Status: Resolved Plan -Await blood cultures -Await urine culture although low suspicion for UTI -Monitor for diarrhea indicative of C.difficile infection -Change Cefepime to Ceftriaxone as no clear evidence of current Pseudomonas infection and to avoid potential neurotoxicity in patient with RENEA with uremic encephalopathy on admission -Continue Metronidazole IV day 2 empirically given mild colitis changes on CT scan Discussed with patient and at bedside. All questions answered. Patient was seen via video telehealth consultation with the assistance of staff. Chart, data, and patient independently reviewed. Patient was located at [facility] while I was located in my [place] office. Received verbal consent from patient. Subjective Date/time seen: 06/03/25 08:42 Interval history: Patient afebrile. More alert today. Still feeling fatigued. Cultures pending. WBC down to 22.6. Renal failure persists. Nephrology is following Review of Systems Review of Systems: All systems reviewed & are unremarkable except as noted in HPI and below Exam Narrative: Gen: alert, fatigued Pulm: normal chest excursion, no accessory muscle use Abd: soft, nontender Ext: minimal edema Derm: no rash Lines:PIVs intact Objective Data Vital Signs Vital Signs: Vital Signs - 24 hr 06/02/25 10:00 06/02/25 10:24 06/02/25 11:50 Temperature Pulse Rate 107 H 103 H Respiratory Rate 18 Blood Pressure 122/66 Pulse Oximetry 95 97 Oxygen Delivery Room Air Fraction of Inspired Oxygen 06/02/25 12:00 06/02/25 12:00 06/02/25 14:00 Temperature Pulse Rate 102 H 98 Respiratory Rate Blood Pressure Pulse Oximetry Oxygen Delivery Room Air Fraction of Inspired Oxygen 06/02/25 15:33 06/02/25 15:34 06/02/25 16:00 Temperature 98.3 F Pulse Rate 101 H 102 H Respiratory Rate 16 Blood Pressure 143/56 H Pulse Oximetry 95 Oxygen Delivery Room Air Fraction of Inspired Oxygen 06/02/25 18:00 06/02/25 20:00 06/02/25 20:00 Temperature 98.9 F Pulse Rate 108 H 111 H Respiratory Rate 16 Blood Pressure 161/66 H Pulse Oximetry 95 Oxygen Delivery Room Air Fraction of Inspired Oxygen 06/02/25 20:00 06/02/25 20:16 06/02/25 22:00 Temperature Pulse Rate 111 H 110 H 108 H Respiratory Rate 20 Blood Pressure Pulse Oximetry 95 Oxygen Delivery Room Air Fraction of Inspired Oxygen 21 06/02/25 23:38 06/03/25 00:00 06/03/25 00:00 Temperature 98.1 F Pulse Rate 105 H 106 H Respiratory Rate 16 Blood Pressure 111/52 L Pulse Oximetry 97 Oxygen Delivery Room Air Fraction of Inspired Oxygen 06/03/25 02:00 06/03/25 04:00 06/03/25 04:00 Temperature Pulse Rate 103 H 112 H Respiratory Rate Blood Pressure Pulse Oximetry Oxygen Delivery Room Air Fraction of Inspired Oxygen 06/03/25 04:00 06/03/25 05:54 06/03/25 07:52 Temperature 98.6 F Pulse Rate 113 H 109 H Respiratory Rate 16 Blood Pressure 162/70 H Pulse Oximetry 96 Oxygen Delivery Room Air Fraction of Inspired Oxygen 06/03/25 08:00 Temperature 97.9 F Pulse Rate 114 H Respiratory Rate 16 Blood Pressure 168/78 H Pulse Oximetry 96 Oxygen Delivery Fraction of Inspired Oxygen Intake/Output Intake/Output: Intake & Output 05/31/25 06/01/25 06/02/25 06/03/25 23:59 23:59 23:59 23:59 Intake Total 1050 440 280 Output Total 150 0 660 Balance 900 440 -380 Meds/Results Medications: Active Medications Generic Name Dose Route Start Last Admin Trade Name Freq PRN Reason Stop Dose Admin Atorvastatin Calcium 20 mg 06/02/25 09:00 06/02/25 10:07 Atorvastatin 20 Mg Tablet BY MOUTH Not Given On Hold: 06/02/25 14:42 DAILY USAMA Bisacodyl 10 mg 06/02/25 03:32 Bisacodyl 10 Mg Suppository RECTAL DAILY PRN Constipation Clonidine HCl 0.3 mg 06/02/25 09:00 06/02/25 11:58 Clonidine Hcl 0.1 Mg Tablet BY MOUTH Not Given On Hold: 06/02/25 14:42 BID USAMA Dextrose 12.5 gm 06/02/25 03:31 Dextrose 50% 25 Gm/50 Ml Syringe IV PUSH PRN PRN Hypoglycemia Protocol Gabapentin 300 mg 06/02/25 09:00 06/02/25 10:07 Gabapentin 300 Mg Capsule PO Not Given On Hold: 06/02/25 14:42 DAILY USAMA Glucagon 1 mg 06/02/25 03:31 Glucagon For Inj 1 Mg Vial IM PRN PRN Hypoglycemia Protocol Glucose 15 gm 06/02/25 03:31 Glucose Oral Gel 15 Gm Of Glucse In 37.5 Gm Tube PO PRN PRN Hypoglycemia Protocol Heparin Sodium (Porcine) 5,000 units 06/02/25 22:00 06/03/25 05:40 Heparin Sodium 5,000 Units/Ml Vial SUB-Q 5,000 units Q8HR USAMA Administration Sodium Chloride 1,000 mls @ 75 mls/hr 06/02/25 03:30 06/02/25 04:14 Normal Saline Iv IV CONT 75 mls/hr On Hold: 06/02/25 10:04 .[id number] USAMA Administration Dextrose 1,000 mls @ 100 mls/hr 06/02/25 03:31 Dextrose 5% 1,000 Ml IVPB PRN PRN Hypoglycemia Protocol Cefepime HCl 1 gm/ Sodium 50 mls @ 100 mls/hr 06/02/25 19:00 06/02/25 18:34 Chloride IVPB 100 mls/hr Q24H USAMA Administration Metronidazole 500 mg in 100 mls @ 100 mls/hr 06/02/25 15:30 06/03/25 05:38 Flagyl 500 Mg/Iso Soln 100 Ml IVPB 100 mls/hr Q8HR USAMA Administration Sodium Bicarbonate 75 meq/ 1,075 mls @ 75 mls/hr 06/03/25 06:20 06/03/25 06:58 Sodium Chloride IV CONT 75 mls/hr .[id number] USAMA Administration Albumin Human 50 mls @ 999 mls/hr 06/03/25 08:37 Albutein IVPB 07/03/25 08:36 Q10M PRN HYPOTENSION Sodium Chloride 1,000 mls @ 999 mls/hr 06/03/25 08:37 Normal Saline Iv IV CONT 06/03/25 09:37 .Q1H1M ONE Sodium Chloride 1,000 mls @ 0 mls/hr 06/03/25 08:37 Normal Saline Iv IV CONT 06/03/25 08:38 .Q0M ONE Per Protocol Insulin Aspart 2 - 5 units 06/02/25 08:00 06/03/25 07:55 Insulin Aspart (*Bkc) 100 Units/Ml SUB-Q Not Given TIDWM [facility] Protocol Metoprolol Tartrate 100 mg 06/02/25 09:00 06/02/25 10:07 Metoprolol Tartrate 50 Mg Tab BY MOUTH Not Given On Hold: 06/02/25 14:42 Q12HR [facility] Metoprolol Tartrate 5 mg 06/02/25 09:43 Metoprolol Tartrate Inj 5 Mg/5 Ml Vial IV PUSH Q6H PRN tachycardia >100 Pantoprazole Sodium 40 mg 06/02/25 09:00 06/02/25 10:07 Pantoprazole 40 Mg Tablet PO Not Given On Hold: 06/02/25 14:42 DAILY [facility] Radiology Results: ITS Impressions Chest/Abdomen/Pelvis CT 06/01/25 17:56 IMPRESSION: CHEST- 1. No acute findings. ABDOMEN/PELVIS- 1. Cystitis not excluded. 2. Mild colitis not excluded. 3. Otherwise no acute abnormality given noncontrast technique. Head CT 06/01/25 19:30 IMPRESSION: 1. No acute intracranial findings or change from prior exam. Chest X-Ray 06/02/25 17:39 Impression: No acute cardiopulmonary abnormality. Labs Labs: Laboratory Results - last 24 hr 06/02/25 06/02/25 06/02/25 11:40 16:21 20:11 WBC RBC Hgb Hct MCV MCH MCHC RDW Plt Count MPV APTT Sodium Potassium Chloride Carbon Dioxide Anion Gap BUN Creatinine Estim Creat Clear Calc Estimated GFR Glucose POC Capillary Glucose 137 H 115 H 136 H Lactic Acid Calcium Phosphorus Magnesium Total Bilirubin AST ALT Alkaline Phosphatase Total Creatine Kinase Total Protein Albumin Urine Eosinophils U Random Total Protein Ur Random Sodium Ur Random Urea Urine Creatinine Protein/Creat Ratio 2 Hep Bs Antigen Hep Bs Antibody Hep B Core Total Ab Hep B Core IgM Ab 06/02/25 06/02/25 06/02/25 22:33 22:33 22:33 WBC RBC Hgb Hct MCV MCH MCHC RDW Plt Count MPV APTT Sodium Potassium Chloride Carbon Dioxide Anion Gap BUN Creatinine Estim Creat Clear Calc Estimated GFR Glucose POC Capillary Glucose Lactic Acid Calcium Phosphorus Magnesium Total Bilirubin AST ALT Alkaline Phosphatase Total Creatine Kinase Total Protein Albumin Urine Eosinophils None seen U Random Total Protein 276 276 Ur Random Sodium 55 Ur Random Urea 265 Urine Creatinine 56.9 57.5 Protein/Creat Ratio 2 4.85 H Hep Bs Antigen Hep Bs Antibody Hep B Core Total Ab Hep B Core IgM Ab 06/03/25 06/03/25 04:08 07:46 WBC 22.6 H RBC 4.27 Hgb 12.3 Hct 37.8 MCV 88.5 MCH 28.8 MCHC 32.5 RDW 13.4 Plt Count 388 H MPV 10.1 APTT 31.7 Sodium 134 L Potassium 5.4 H Chloride 96 L Carbon Dioxide 13 L Anion Gap 25 H BUN 123 H* D Creatinine 6.69 H Estim Creat Clear Calc 6 Estimated GFR 6 L Glucose 121 H POC Capillary Glucose 113 H Lactic Acid 0.9 Calcium 8.3 L Phosphorus 12.0 H Magnesium 2.3 Total Bilirubin 0.6 AST 26 ALT 7 Alkaline Phosphatase 76 Total Creatine Kinase < 20 L Total Protein 7.7 Albumin 3.9 Urine Eosinophils U Random Total Protein Ur Random Sodium Ur Random Urea Urine Creatinine Protein/Creat Ratio 2 Hep Bs Antigen Negative Hep Bs Antibody Negative Hep B Core Total Ab Cancelled Hep B Core IgM Ab Negative
[2025-06-03] MEDS: cefTRIAXone 1 GM in SODIUM CHLORIDE 0.9% IV 50 ML 100 ML IVPB (10:06)
--- NOTE | 2025-06-03 14:05 | PM.IMPN ---
Progress Note: A&P Assessment and Plan (1) RENEA (acute kidney injury): Code(s): N17.9 - Acute kidney failure, unspecified Status: Resolved Assessment and Plan: -the patient has acute on chronic renal failure with uremia -patient had a renal ultrasound on 04/27/2025: Trabeculated bladder appearance with thickening. Focal thickening more prominent superiorly on the right. Cannot exclude transitional cell carcinoma possibly superimposed on cystitis. Recommend urology consultation. -urology saw the patient on 04/27/2025 and noted no acute urological surgical intervention is indicated. It was noted that they will follow her peripherally. -continue with IV fluid -monitor BMP -her BUN is 123 and creatinine 6.69. Her BUN on 04/30/2025 was 28 with a creatinine 1.02. For dialysis Nephrology following (2) DM2 (diabetes mellitus, type 2): Qualifiers: Diabetes mellitus ocean transportation intermediary insulin use: without fpc use Diabetes mellitus complication status: with hyperglycemia Qualified Code(s): E11.65 - Type 2 diabetes mellitus with hyperglycemia Code(s): E11.9 - Type 2 diabetes mellitus without complications Status: Chronic Assessment and Plan: -I am holding her p.o. medication. -sliding scale insulin -last A1c a couple days ago was 6.0. -her blood sugar was 169. (3) Essential (primary) hypertension: Code(s): I10 - Essential (primary) hypertension Status: Chronic Assessment and Plan: -blood pressure 161/80. -continue with clonidine if blood pressure allows -continue with metoprolol F blood pressure allow (4) Congestive heart failure: Code(s): I50.9 - Heart failure, unspecified Status: Chronic Assessment and Plan: -continue with metoprolol -patient for [place] is currently on hold due to her acute renal failure. -last echo performed was in 2022. -echo showed left ventricular hypertrophy with hyperdynamic systolic -spironolactone on hold at this time. (5) Hyperlipidemia: Code(s): E78.5 - Hyperlipidemia, unspecified Status: Acute Assessment and Plan: -continue without atorvastatin and monitor liver enzymes (6) Generalized anxiety disorder: Code(s): F41.1 - Generalized anxiety disorder Status: Inactive (7) Hyperkalemia: Code(s): E87.5 - Hyperkalemia Status: Acute Assessment and Plan: -most likely secondary to the acute kidney injury -she has also been on spironolactone which is now on hold. -the patient was given Lokelma in the emergency room. -daily BMPs. -her potassium was 5.3. Plan Pain medication and muscle relaxers held at this time due to her acute altered mental status. Subjective Date/time seen: 06/03/25 14:05 Interval history: Patient lethargic, awake but not responding awaiting dialysis Review of Systems Review of Systems: ROS unobtainable: Yes unobtainable due to medical condition and unobtainable due to mental status ENT: Reports Normal hearing present Neurologic: Reports Normal hearing present Exam Narrative: General: lethargic HEENT: Normocephalic. Atraumatic. Extraocular movement intact. Sclera clear and anicteric. No facial asymmetry. Chest: Lungs are coarse to auscultation bilaterally. CV: Heart was regular rate and rhythm. Abd: Abdomen was soft. Nontender. Nondistended. Positive bowel sounds. Ext: No clubbing, cyanosis, or edema. DP pulses bilaterally. Neuro: Patient is alert to voice and upon return able AOx1 (person), following some commands. Symmetrical cooker chip strength and wiggles toes. Skin: Warm and dry. No rashes or ulcers noted. Const: General: cooperative, no acute distress, well developed, awake, Physically active, average body habitus and well nourished Nutritional Appearance: average body habitus and well nourished Orientation/consciousness: oriented to person, oriented to place, oriented to time and patient oriented x3 HENMT: Head: normal to inspection, No palpable skull fracture present, normocephalic and atraumatic Ears: hearing grossly normal bilaterally Eyes: General: appearance normal, both eyes and all related structures Alignment and Position: alignment normal Periorbital: periorbital findings normal Eyelids: eyelids normal Pupils: Equal, round and reactive pupils present Neck: Neck: normal visual inspection and full ROM Chest: Chest palpation & inspection: normal inspection of the chest Resp: Effort & Inspection: normal respiratory effort Auscultation: clear to auscultation bilaterally Cardio: Palpation: normal PMI Rate: regular rate Rhythm: regular rhythm Heart sounds: S1 normal heart sound present and S2 normal heart sound present Peripheral pulses: Peripheral pulses 2+ throughout GI: Inspection: normal to inspection Auscultation: normal bowel sounds Rectal Exam: deferred Skin: General skin exam: normal color Lesions: no lesions Rashes: no rashes Trauma: no lacerations or abrasions Wounds: no wounds Hair: normal Nails: normal Neuro: General: oriented to person, oriented to place, oriented to time and patient oriented x3 Cranial nerves: Yes Equal, round and reactive pupils present and Yes Normal hearing present Cognition (Neuro): normal cognition Speech: normal speech Motor exam (neuro): 5/5 motor strength present throughout Sensory Exam: normal sensation Extrem: General: normal to inspection Right upper extremity: normal to inspection and shoulder/upper arm Left upper extremity: normal to inspection and shoulder/upper arm Right lower extremity: normal to inspection Left lower extremity: normal to inspection Psych: Mental Status: other Affect: normal affect Attitude: cooperative Objective Data Vital Signs Vital Signs: Vital Signs - 24 hr 06/02/25 15:33 06/02/25 15:34 06/02/25 16:00 Temperature 98.3 F Pulse Rate 101 H 102 H Respiratory Rate 16 Blood Pressure 143/56 H Pulse Oximetry 95 Oxygen Delivery Room Air Fraction of Inspired Oxygen 06/02/25 18:00 06/02/25 20:00 06/02/25 20:00 Temperature 98.9 F Pulse Rate 108 H 111 H Respiratory Rate 16 Blood Pressure 161/66 H Pulse Oximetry 95 Oxygen Delivery Room Air Fraction of Inspired Oxygen 06/02/25 20:00 06/02/25 20:16 06/02/25 22:00 Temperature Pulse Rate 111 H 110 H 108 H Respiratory Rate 20 Blood Pressure Pulse Oximetry 95 Oxygen Delivery Room Air Fraction of Inspired Oxygen 21 06/02/25 23:38 06/03/25 00:00 06/03/25 00:00 Temperature 98.1 F Pulse Rate 105 H 106 H Respiratory Rate 16 Blood Pressure 111/52 L Pulse Oximetry 97 Oxygen Delivery Room Air Fraction of Inspired Oxygen 06/03/25 02:00 06/03/25 04:00 06/03/25 04:00 Temperature Pulse Rate 103 H 112 H Respiratory Rate Blood Pressure Pulse Oximetry Oxygen Delivery Room Air Fraction of Inspired Oxygen 06/03/25 04:00 06/03/25 05:54 06/03/25 07:52 Temperature 98.6 F Pulse Rate 113 H 109 H Respiratory Rate 16 Blood Pressure 162/70 H Pulse Oximetry 96 Oxygen Delivery Room Air Fraction of Inspired Oxygen 06/03/25 08:00 06/03/25 08:00 06/03/25 11:21 Temperature 97.9 F Pulse Rate 114 H 112 H 114 H Respiratory Rate 16 Blood Pressure 168/78 H Pulse Oximetry 96 Oxygen Delivery Fraction of Inspired Oxygen 06/03/25 12:00 06/03/25 12:00 06/03/25 12:00 Temperature 98.2 F Pulse Rate 114 H 113 H Respiratory Rate 16 Blood Pressure 168/75 H Pulse Oximetry 98 Oxygen Delivery Room Air Fraction of Inspired Oxygen Intake/Output Intake/Output: Intake & Output 05/31/25 06/01/25 06/02/25 06/03/25 23:59 23:59 23:59 23:59 Intake Total 1050 440 380 Output Total 150 0 660 Balance 900 440 -280 Meds/Results Medications: Active Medications Generic Name Dose Route Start Last Admin Trade Name Freq PRN Reason Stop Dose Admin Atorvastatin Calcium 20 mg 06/02/25 09:00 06/02/25 10:07 Atorvastatin 20 Mg Tablet BY MOUTH Not Given On Hold: 06/02/25 14:42 DAILY USAMA Bisacodyl 10 mg 06/02/25 03:32 Bisacodyl 10 Mg Suppository RECTAL DAILY PRN Constipation Clonidine HCl 0.3 mg 06/02/25 09:00 06/02/25 11:58 Clonidine Hcl 0.1 Mg Tablet BY MOUTH Not Given On Hold: 06/02/25 14:42 BID USAMA Dextrose 12.5 gm 06/02/25 03:31 Dextrose 50% 25 Gm/50 Ml Syringe IV PUSH PRN PRN Hypoglycemia Protocol Gabapentin 300 mg 06/02/25 09:00 06/02/25 10:07 Gabapentin 300 Mg Capsule PO Not Given On Hold: 06/02/25 14:42 DAILY USAMA Glucagon 1 mg 06/02/25 03:31 Glucagon For Inj 1 Mg Vial IM PRN PRN Hypoglycemia Protocol Glucose 15 gm 06/02/25 03:31 Glucose Oral Gel 15 Gm Of Glucse In 37.5 Gm Tube PO PRN PRN Hypoglycemia Protocol Heparin Sodium (Porcine) 5,000 units 06/02/25 22:00 06/03/25 13:23 Heparin Sodium 5,000 Units/Ml Vial SUB-Q Not Given Q8HR USAMA Sodium Chloride 1,000 mls @ 75 mls/hr 06/02/25 03:30 06/02/25 04:14 Normal Saline Iv IV CONT 75 mls/hr On Hold: 06/02/25 10:04 .[id number] USAMA Administration Dextrose 1,000 mls @ 100 mls/hr 06/02/25 03:31 Dextrose 5% 1,000 Ml IVPB PRN PRN Hypoglycemia Protocol Metronidazole 500 mg in 100 mls @ 100 mls/hr 06/02/25 15:30 06/03/25 13:31 Flagyl 500 Mg/Iso Soln 100 Ml IVPB 100 mls/hr Q8HR USAMA Administration Sodium Bicarbonate 75 meq/ 1,075 mls @ 75 mls/hr 06/03/25 06:20 06/03/25 06:58 Sodium Chloride IV CONT 75 mls/hr .[id number] USAMA Administration Albumin Human 50 mls @ 999 mls/hr 06/03/25 08:37 Albutein IVPB 07/03/25 08:36 Q10M PRN HYPOTENSION Ceftriaxone Sodium 1 gm/ 50 mls @ 100 mls/hr 06/03/25 09:00 06/03/25 10:06 Sodium Chloride IVPB 100 mls/hr Q24H USAMA Administration Insulin Aspart 2 - 5 units 06/02/25 08:00 06/03/25 11:17 Insulin Aspart (*Bkc) 100 Units/Ml SUB-Q Not Given TIDWM [facility] Protocol Metoprolol Tartrate 100 mg 06/02/25 09:00 06/02/25 10:07 Metoprolol Tartrate 50 Mg Tab BY MOUTH Not Given On Hold: 06/02/25 14:42 Q12HR [facility] Metoprolol Tartrate 5 mg 06/02/25 09:43 Metoprolol Tartrate Inj 5 Mg/5 Ml Vial IV PUSH Q6H PRN tachycardia >100 Pantoprazole Sodium 40 mg 06/02/25 09:00 06/02/25 10:07 Pantoprazole 40 Mg Tablet PO Not Given On Hold: 06/02/25 14:42 DAILY [facility] Radiology Results: ITS Impressions Chest/Abdomen/Pelvis CT 06/01/25 17:56 IMPRESSION: CHEST- 1. No acute findings. ABDOMEN/PELVIS- 1. Cystitis not excluded. 2. Mild colitis not excluded. 3. Otherwise no acute abnormality given noncontrast technique. Head CT 06/01/25 19:30 IMPRESSION: 1. No acute intracranial findings or change from prior exam. Chest X-Ray 06/02/25 17:39 Impression: No acute cardiopulmonary abnormality. Labs Labs: Laboratory Results - last 24 hr 06/02/25 06/02/25 06/02/25 16:21 20:11 22:33 WBC RBC Hgb Hct MCV MCH MCHC RDW Plt Count MPV APTT Sodium Potassium Chloride Carbon Dioxide Anion Gap BUN Creatinine Estim Creat Clear Calc Estimated GFR Glucose POC Capillary Glucose 115 H 136 H Lactic Acid Calcium Phosphorus Magnesium Total Bilirubin AST ALT Alkaline Phosphatase Total Creatine Kinase Total Protein Albumin Urine Eosinophils None seen U Random Total Protein 276 Ur Random Sodium Ur Random Urea Urine Creatinine Protein/Creat Ratio 2 Hep Bs Antigen Hep Bs Antibody Hep B Core Total Ab Hep B Core IgM Ab 06/02/25 06/02/25 06/03/25 22:33 22:33 04:08 WBC 22.6 H RBC 4.27 Hgb 12.3 Hct 37.8 MCV 88.5 MCH 28.8 MCHC 32.5 RDW 13.4 Plt Count 388 H MPV 10.1 APTT 31.7 Sodium 134 L Potassium 5.4 H Chloride 96 L Carbon Dioxide 13 L Anion Gap 25 H BUN 123 H* D Creatinine 6.69 H Estim Creat Clear Calc 6 Estimated GFR 6 L Glucose 121 H POC Capillary Glucose Lactic Acid 0.9 Calcium 8.3 L Phosphorus 12.0 H Magnesium 2.3 Total Bilirubin 0.6 AST 26 ALT 7 Alkaline Phosphatase 76 Total Creatine Kinase < 20 L Total Protein 7.7 Albumin 3.9 Urine Eosinophils U Random Total Protein 276 Ur Random Sodium 55 Ur Random Urea 265 Urine Creatinine 56.9 57.5 Protein/Creat Ratio 2 4.85 H Hep Bs Antigen Negative Hep Bs Antibody Negative Hep B Core Total Ab Cancelled Hep B Core IgM Ab Negative 06/03/25 06/03/25 07:46 11:27 WBC RBC Hgb Hct MCV MCH MCHC RDW Plt Count MPV APTT Sodium Potassium Chloride Carbon Dioxide Anion Gap BUN Creatinine Estim Creat Clear Calc Estimated GFR Glucose POC Capillary Glucose 113 H 120 H Lactic Acid Calcium Phosphorus Magnesium Total Bilirubin AST ALT Alkaline Phosphatase Total Creatine Kinase Total Protein Albumin Urine Eosinophils U Random Total Protein Ur Random Sodium Ur Random Urea Urine Creatinine Protein/Creat Ratio 2 Hep Bs Antigen Hep Bs Antibody Hep B Core Total Ab Hep B Core IgM Ab Quality VTE Prophylaxis VTE prophylaxis: pharmacologic ordered
--- NOTE | 2025-06-03 14:05 | PC.NURSE ---
pt taken for surgery at 1400
[2025-06-03] MEDS: SODIUM CHLORIDE 0.9% IV 500 ML 30 ML IV CONT (14:30)
--- NOTE | 2025-06-03 14:33 | P.HPUP_ITS ---
History and Physical Update Update Date/Time: 06/03/25 14:[address] temporary central venous catheter for dialysis using fluoroscopy and U/S as requested by Analytics Consultant. History and Physical has been reviewed, including an updated exam of the patient. There are NO changes in the patient's condition. Risks, benefits, and alternatives have been discussed and questions answered. Patient agrees to proceed with procedure.
--- NOTE | 2025-06-03 14:38 | WPDANESEPPF ---
Anes - Initial Pre Proc Eval Procedure: Operation Date: 06/03/25 15:00 Proposed Procedures p Insertion Tunneled Dialysis Catheter - Law Dean MD Date/Time: 06/03/25 14:38 Surgeon: Melvin Diamond MD Pre Op Diagnosis: Acute renal failure,hyperkalemia,sepsis,possible U Patient Data Age: 75 Gender: F Height: 1.65 m Weight: 65.3 kg Last Vital Signs Temp 36.8 C 06/03/25 12:00 Pulse 113 H 06/03/25 12:00 Resp 16 06/03/25 12:00 BP 168/75 H 06/03/25 12:00 Pulse Ox 98 06/03/25 12:00 O2 Del Method Room Air 06/03/25 12:00 FiO2 21 06/02/25 20:16 Allergies Allergy/AdvReac Type Severity Reaction Status Date / Time amoxicillin (From Augmentin) Allergy Unknown Verified 06/01/25 16:03 clavulanic acid (From Allergy Unknown Verified 06/01/25 16:03 Augmentin) Home Medications ?Medication ?Instructions ?Recorded ?Confirmed ?Type lancet with blood glucose test #300 ea 01/29/23 06/01/25 Rx strips and pen needles combo pack blood sugar diagnostic (OneTouch #300 ea 05/20/23 06/01/25 Rx Verio test strips) flash glucose scanning reader #1 ea 05/20/23 06/01/25 Rx (FreeStyle Yulia 2 [place]) ammonium lactate 12 % lotion 1 applic topical DAILY #225 grams 10/26/24 06/01/25 Rx (AmLactin) clonidine HCl 0.3 mg tablet See Rx Instructions .Route 12/27/24 06/01/25 Rx .COMPLEX #60 tabs buspirone 10 mg tablet 10 mg PO BID #60 tabs 02/06/25 06/01/25 Rx gabapentin 300 mg capsule 300 mg PO DAILY #90 caps 03/03/25 06/01/25 Rx baclofen 10 mg tablet 10 mg PO TID muscle spasm 03/26/25 06/01/25 History metoprolol tartrate 100 mg tablet See Rx Instructions .Route 03/29/25 06/01/25 Rx .COMPLEX #180 tabs atorvastatin 20 mg tablet See Rx Instructions .Route 04/07/25 06/01/25 Rx .COMPLEX #90 tabs duloxetine 60 mg capsule,delayed See Rx Instructions .Route 04/07/25 06/01/25 Rx release .COMPLEX #90 ea flash glucose sensor (FreeStyle #2 ea 04/12/25 06/01/25 Rx Yulia 2 Sensor kit) spironolactone 25 mg tablet See Rx Instructions .Route 04/28/25 06/01/25 Rx .COMPLEX #30 tabs hydrocodone 5 mg-acetaminophen 325 1 tablet PO Q6H PRN pain #20 tabs 04/30/25 06/01/25 Rx mg tablet pantoprazole 40 mg tablet,delayed 40 mg PO DAILY #60 tabs 05/27/25 06/01/25 Rx release bisacodyl 10 mg rectal suppository 10 mg RECTAL DAILY PRN constipation 06/01/25 06/01/25 History cholecalciferol (vitamin D3) 25 1,000 unit PO DAILY 06/01/25 06/01/25 History mcg (1,000 unit) tablet dapagliflozin propanediol 10 mg 10 mg PO DAILY 06/01/25 06/01/25 History tablet (Farxiga) fenofibrate 50 mg capsule 50 mg PO DAILY 06/01/25 06/01/25 History magnesium citrate (Citroma oral 296 ml PO DAILY PRN constipation 06/01/25 06/01/25 History solution) magnesium hydroxide 400 mg/5 mL 30 ml PO HS PRN constipation 06/01/25 06/01/25 History oral suspension metformin 500 mg tablet,extended 1,000 mg PO BID 06/01/25 06/01/25 History release 24 hr pioglitazone 15 mg tablet 15 mg PO QAM 06/01/25 06/01/25 History semaglutide 7 mg tablet (Rybelsus) See Rx Instructions .Route 06/03/25 Rx .COMPLEX #30 tabs Laboratory Tests 06/02/25 06/02/25 06/02/25 16:21 20:11 22:33 WBC RBC Hgb Hct MCV MCH MCHC RDW Plt Count MPV APTT Sodium Potassium Chloride Carbon Dioxide Anion Gap BUN Creatinine Estim Creat Clear Calc Estimated GFR Glucose POC Capillary Glucose 115 H mg/dl 136 H mg/dl (65-105) (65-105) Lactic Acid Calcium Phosphorus Magnesium Total Bilirubin AST ALT Alkaline Phosphatase Total Creatine Kinase Total Protein Albumin Urine Eosinophils None seen % (None Seen) U Random Total Protein 276 mg/dL Ur Random Sodium Ur Random Urea Urine Creatinine Protein/Creat Ratio 2 Hep Bs Antigen Hep Bs Antibody Hep B Core Total Ab Hep B Core IgM Ab 06/02/25 06/02/25 06/03/25 22:33 22:33 04:08 WBC 22.6 H K/mm3 (4.5-10.0) RBC 4.27 M/mm3 (4.2-5.4) Hgb 12.3 g/dL (12.0-15.0) Hct 37.8 % (37.0-47.0) MCV 88.5 fl (80-100) MCH 28.8 pg (26-34) MCHC 32.5 g/dl (32-36) RDW 13.4 % (11.5-14.5) Plt Count 388 H k/mm3 (150-375) MPV 10.1 fl (7.4-10.4) APTT 31.7 Seconds (22.3-36.8) Sodium 134 L mmol/L (137-145) Potassium 5.4 H mmol/L (3.4-5.0) Chloride 96 L mmol/L (98-107) Carbon Dioxide 13 L mmol/L (22-30) Anion Gap 25 H mmol/L (4-12) BUN 123 H* D mg/dL (7-17) Creatinine 6.69 H mg/dL (0.7-1.0) Estim Creat Clear Calc 6 ml/min Estimated GFR 6 L (59 - ) Glucose 121 H mg/dL (65-110) POC Capillary Glucose Lactic Acid 0.9 mmol/L (0.7-2.0) Calcium 8.3 L mg/dL (8.4-10.2) Phosphorus 12.0 H mg/dL (2.5-4.5) Magnesium 2.3 mg/dL (1.6-2.3) Total Bilirubin 0.6 mg/dL (0.2-1.3) AST 26 U/L (14-36) ALT 7 U/L (6-35) Alkaline Phosphatase 76 U/L (38-126) Total Creatine Kinase < 20 L U/L (30-135) Total Protein 7.7 g/dL (6.3-8.2) Albumin 3.9 g/dL (3.5-5.1) Urine Eosinophils U Random Total Protein 276 mg/dL Ur Random Sodium 55 meq/L Ur Random Urea 265 MG/DL Urine Creatinine 56.9 mg/dL 57.5 mg/dL Protein/Creat Ratio 2 4.85 H mg/mg (0-0.20) Hep Bs Antigen Negative (Negative) Hep Bs Antibody Negative Hep B Core Total Ab Cancelled Hep B Core IgM Ab Negative (Negative) 06/03/25 06/03/25 07:46 11:27 WBC RBC Hgb Hct MCV MCH MCHC RDW Plt Count MPV APTT Sodium Potassium Chloride Carbon Dioxide Anion Gap BUN Creatinine Estim Creat Clear Calc Estimated GFR Glucose POC Capillary Glucose 113 H mg/dl 120 H mg/dl (65-105) (65-105) Lactic Acid Calcium Phosphorus Magnesium Total Bilirubin AST ALT Alkaline Phosphatase Total Creatine Kinase Total Protein Albumin Urine Eosinophils U Random Total Protein Ur Random Sodium Ur Random Urea Urine Creatinine Protein/Creat Ratio 2 Hep Bs Antigen Hep Bs Antibody Hep B Core Total Ab Hep B Core IgM Ab Patient hx anesthesia problems: none Family hx anesthesia problems: none Results Review: All pre-operative results and documents have been reviewed as part of the pre-operative evaluation. [facility] Past Medical History Medical History (Updated 06/03/25 @ 08:08 by Law Dean MD) Hyperlipidemia Back pain Eczema Osteoarthritis Venous insufficiency (chronic) (peripheral) DM2 (diabetes mellitus, type 2) Non-ST elevated myocardial infarction (non-STEMI) Osteoarthritis of hands, bilateral Bilateral primary osteoarthritis of knee Essential (primary) hypertension Fibromyalgia Generalized anxiety disorder Arthralgia of multiple joints Surgical History Surgical History History of tubal ligation (~1989) Family History Family History Grandparent Acute myocardial infarction Cerebrovascular accident Heart disease Mother Colon polyp Diabetes mellitus Pancreatic adenocarcinoma Other Depression Hypertension Neuralgia of both lower extremities Social History Social History Social History: Surrogate medical decision maker: Shravan Katerynacornelius, spouse. Code status: Full code. Smoking status: Former smoker Second hand tobacco smoke exposure: No Alcohol intake: never Substance use: never Substance use type: former substance user and marijuana Last use: 03/26/25 Do You Feel Safe in your Home?: Yes Lack of Transportation: No Lack of Food: Never True Current Housing: I Have Housing Concerned About Future Housing: No Difficulty Paying Gas/Electric Bills: No Difficulty Paying for Meds: No Currently Unemployed: No Education: Associate Degree Difficulty w/ Childcare or Family Care: No Living arrangements: with family Occupation/Education: retired Spiritual care concerns: No Agree to blood products: Yes Anes - Eval Final PreProcedure Day of Procedure 06/03/25 14:38 Patient weight: normal Heart: regular rate and rhythm Lungs: clear to auscultation and normal air movement Airway: Mallampati scale class II Neurological: alert and oriented Last oral intake: >/= 8 hours ASA classification: IV Emergent: no Anesthetic plan: proceed Anesthesia type and monitoring: general GIVS and standard monitoring Results Review: All pre-operative results and documents have been reviewed as part of the pre-operative evaluation. Informed Consent: The patient's anesthetic plan and its attendant risks and benefits were discussed with the patient/family/POA. Questions were solicited and answers provided to the satisfaction of the patient/family/POA.
[2025-06-03] MEDS: ceFAZolin 2 GM in SODIUM CHLORIDE 0.9% IV 50 ML 100 ML IVPB (15:42)
[2025-06-03] MEDS: HEPARIN SODIUM, PORCINE 10,000 UNITS/10 ML VIAL 2000 UNITS IV PUSH (16:11)
[2025-06-03] MEDS: LIDO 1%/EPINEPHRINE 1:100,000 20 ML VIAL 10 ML INFILTRATE (16:13)
--- NOTE | 2025-06-03 16:45 | P.OP_ITS ---
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 She is quite uremic and has mental status changes. Been requested by Nephrology to place a non tunneled central venous catheter for acute dialysis. Patient is taken to surgery now for this purpose. Findings None significant, tip of the catheter in the distal SVC right atrial junction. Description of Procedure Patient was taken to the operating room and placed in the supine position. She had trouble turning her head to the left and it tends to be generally turned to the right. We prepped and draped the left neck and left subclavian areas. Using ultrasound, the left internal jugular vein was cannulated. A guidewire was passed into the superior vena cava. C-arm fluoroscopy verified the position of the guidewire. A small stab incision was made at the exit site of the guidewire. Serial dilators were passed over the guidewire. Then a 19 cm length dual-lumen central venous catheter for dialysis was passed over the guidewire and into the distal SVC, right atrial junction. The guidewire was removed. Both ports aspirated blood and flushed easily with heparin. Final flush was she given in each port. Each port was capped. Local was infiltrated under the flange. Stat seal was placed at the skin incision. 3-0 nylon suture was used and the catheter was sutured to the skin using the openings in the flange. A sandwich type dressing was then placed over the central venous catheter. Patient was then awakened and taken to recovery. Portable chest x-ray in recovery was reviewed by me and shows no pneumothorax and the tip of the catheter to be in the distal superior vena cava, right atrial junction which is appropriate. Implants Non tunneled dual lumen central venous catheter for dialysis Estimated Blood Loss -5 Urine Output 0 Drains No Packing No Pathology None sent Complications None Condition Stable Disposition PACU [facility] Billing Surgery - Charge Forward: Surgery Billing (Placement non-tunneled central venous catheter, left internal jugular position, under fluoroscopy and using ultrasoun d, for acute dialysis.)
--- NOTE | 2025-06-03 18:20 | P.PNNP_ITS ---
Progress Note: A&P Assessment and Plan (1) Acute kidney injury: Code(s): N17.9 - Acute kidney failure, unspecified Status: Acute Assessment and Plan: * as noted by admission creatinine (6.31mg/dl) * creatinine 1.02mg/dl on discharge on 04/30/25 * etiology not clear -- infection/sepsis/SIRS, prerenal factors, other(?) * evaluation noted: * renal ultrasound a month ago noted * CT of A/P on this admission with no hydronephrosis * urine electrolytes prerenal (by FeUrea) * urine eosinophils negative * nephrotic range proteinuria (question validity since from starr catheter) * CPK low * questionable infection by UA * reasonable urine output noted * concern that altered mental status/encephalopathy may be due to uremia (BUN quite elevated)... * initiated on [employer] today (06/03) * likely plan HD tomorrow and day after * follow trend of repeat labs and UOP (2) Hyperkalemia: Code(s): E87.5 - Hyperkalemia Status: Acute Assessment and Plan: * presumably due to JOSHUA in the context of spironolactone use and associated acidosis * s/p medical management * follow trend of K+ * dialysis should help stabilize/correct as well (3) Altered mental status: Qualifiers: Altered mental status type: unspecified Qualified Code(s): R41.82 - Altered mental status, unspecified Code(s): R41.82 - Altered mental status, unspecified Status: Acute Assessment and Plan: * apparently normal mentation at baseline (as noted by progress notes from last hospitalization) * possibly secondary to uremia versus underlying infecton (given elevated WBC) versus other(?) * if related to uremia, mentation should improve with dialysis (4) Leukocytosis: Code(s): D72.829 - Elevated white blood cell count, unspecified Status: Acute Assessment and Plan: * concern is for possible infection/sepsis * no clear source at this time * follow culture data * Infectious Disease following * on antibiotics (5) Metabolic acidosis: Code(s): E87.20 - Acidosis, unspecified Status: Acute Assessment and Plan: * due to Joshua/ARF * initial lactic acidosis on admission likely contributing as well * lactic acid has normalized * dialysis should help correct/stabilize * follow trend of CO2 (6) Congestive heart failure: Code(s): I50.9 - Heart failure, unspecified Status: Chronic Assessment and Plan: * reported history * appears compensated at this time * Echo (on 06/02) noted: * left ventricular systolic function is hyperdynamic, estimated at >70. There is mild concentric increased * left ventricular diastolic function is grade I diastolic dysfunction * mild aortic valve sclerosis * mitral valve annulus is severely calcified * mild tricuspid valve regurgitation * follow volume status (7) Essential (primary) hypertension: Code(s): I10 - Essential (primary) hypertension Status: Chronic Assessment and Plan: * running a bit on the high side * restart home BP medications gradually * holding spironolactone * follow trend of hemodynamics (8) DM2 (diabetes mellitus, type 2): Qualifiers: Diabetes mellitus complication status: with hyperglycemia Diabetes mellitus snf insulin use: without snf use Qualified Code(s): E11.65 - Type 2 diabetes mellitus with hyperglycemia Code(s): E11.9 - Type 2 diabetes mellitus without complications Status: Chronic Assessment and Plan: * follow accu-cheks * glycemic control per hospitalist Will continue to follow. L Subjective Date/time seen: 06/03/25 18:20 Interval history: Follow-up for acute kidney injury/acute renal failure. Worsening renal function/creatinine/BUN by AM labs in association with continued AMS/encephalopathy earlier this morning although some urine output noted overnight; s/p temporary HD catheter placement this afternoon; tolerating dialysis treatment at the time of my visit (seen on HD at 6:10pm). Exam 2 Narrative: General: elderly but WD/WN female in NAD but confused Heart: normal S1 and S2; no rub Lungs: clear anteriorly Abdomen: soft, nontender, nondistended, positive bowel sounds Extremities: no cyanosis or clubbing; no edema Skin: warm and dry Objective Data Vital Signs Vital Signs: Vital Signs Temp Pulse Resp BP Pulse Ox O2 Del Method O2 Flow Rate 06/03/25 18:16 126 H 160/90 H 06/03/25 18:00 127 H 177/100 H 06/03/25 17:44 121 H 181/91 H 06/03/25 17:30 06/03/25 17:30 96.7 F L 124 H 16 166/91 H 96 06/03/25 17:25 124 H 17 168/75 H 97 Room Air 06/03/25 17:10 125 H 17 174/76 H 99 Room Air 06/03/25 16:55 124 H 22 H 170/75 H 100 Simple Face Mask 6 06/03/25 16:40 125 H 17 165/74 H 100 Simple Face Mask 6 06/03/25 16:26 97.7 F 123 H 20 163/74 H 100 Simple Face Mask 6 06/03/25 14:42 99.2 F 113 H 18 174/84 H 98 Simple Face Mask 10 06/03/25 12:00 113 H 06/03/25 12:00 98.2 F 114 H 16 168/75 H 98 06/03/25 12:00 Room Air 06/03/25 11:21 114 H 06/03/25 08:00 112 H 06/03/25 08:00 97.9 F 114 H 16 168/78 H 96 06/03/25 07:52 Room Air 06/03/25 05:54 109 H 06/03/25 04:00 98.6 F 113 H 16 162/70 H 96 06/03/25 04:00 112 H 06/03/25 04:00 Room Air 06/03/25 02:00 103 H 06/03/25 00:00 106 H 06/03/25 00:00 Room Air 06/02/25 23:38 98.1 F 105 H 16 111/52 L 97 06/02/25 22:00 108 H 06/02/25 20:16 110 H 20 95 Room Air 06/02/25 20:00 111 H 06/02/25 20:00 Room Air 06/02/25 20:00 98.9 F 111 H 16 161/66 H 95 Intake/Output Intake/Output: Intake & Output 05/31/25 06/01/25 06/02/25 06/03/25 23:59 23:59 23:59 23:59 Intake Total 1050 440 510 Output Total 150 0 1560 Balance 900 440 -1050 Meds/Results Medications: Active Medications Generic Name Dose Route Start Last Admin Trade Name Freq PRN Reason Stop Dose Admin Atorvastatin Calcium 20 mg 06/02/25 09:00 06/02/25 10:07 Atorvastatin 20 Mg Tablet BY MOUTH Not Given On Hold: 06/02/25 14:42 DAILY [facility] Bisacodyl 10 mg 06/02/25 03:32 Bisacodyl 10 Mg Suppository RECTAL DAILY PRN Constipation Clonidine HCl 0.3 mg 06/02/25 09:00 06/02/25 11:58 Clonidine Hcl 0.1 Mg Tablet BY MOUTH Not Given On Hold: 06/02/25 14:42 BID [facility] Dextrose 12.5 gm 06/02/25 03:31 Dextrose 50% 25 Gm/50 Ml Syringe IV PUSH PRN PRN Hypoglycemia Protocol Gabapentin 300 mg 06/02/25 09:00 06/02/25 10:07 Gabapentin 300 Mg Capsule PO Not Given On Hold: 06/02/25 14:42 DAILY [facility] Glucagon 1 mg 06/02/25 03:31 Glucagon For Inj 1 Mg Vial IM PRN PRN Hypoglycemia Protocol Glucose 15 gm 06/02/25 03:31 Glucose Oral Gel 15 Gm Of Glucse In 37.5 Gm Tube PO PRN PRN Hypoglycemia Protocol Heparin Sodium (Porcine) 5,000 units 06/02/25 22:00 06/03/25 13:23 Heparin Sodium 5,000 Units/Ml Vial SUB-Q Not Given Q8HR [facility] Sodium Chloride 1,000 mls @ 75 mls/hr 06/02/25 03:30 06/02/25 04:14 Normal Saline Iv IV CONT 75 mls/hr On Hold: 06/02/25 10:04 .[id number] [facility] Administration Dextrose 1,000 mls @ 100 mls/hr 06/02/25 03:31 Dextrose 5% 1,000 Ml IVPB PRN PRN Hypoglycemia Protocol Metronidazole 500 mg in 100 mls @ 100 mls/hr 06/02/25 15:30 06/03/25 15:02 Flagyl 500 Mg/Iso Soln 100 Ml IVPB Infused Q8HR [facility] Infusion Albumin Human 50 mls @ 999 mls/hr 06/03/25 08:37 Albutein IVPB 07/03/25 08:36 Q10M PRN HYPOTENSION Ceftriaxone Sodium 1 gm/ 50 mls @ 100 mls/hr 06/03/25 09:00 06/03/25 10:06 Sodium Chloride IVPB 100 mls/hr Q24H [facility] Administration Insulin Aspart 2 - 5 units 06/02/25 08:00 06/03/25 16:07 Insulin Aspart (*Bkc) 100 Units/Ml SUB-Q Not Given TIDWM [facility] Protocol Metoprolol Tartrate 100 mg 06/02/25 09:00 06/02/25 10:07 Metoprolol Tartrate 50 Mg Tab BY MOUTH Not Given On Hold: 06/02/25 14:42 Q12HR [facility] Metoprolol Tartrate 5 mg 06/02/25 09:43 Metoprolol Tartrate Inj 5 Mg/5 Ml Vial IV PUSH Q6H PRN tachycardia >100 Pantoprazole Sodium 40 mg 06/02/25 09:00 06/02/25 10:07 Pantoprazole 40 Mg Tablet PO Not Given On Hold: 06/02/25 14:42 DAILY [facility] Radiology Results: ITS Impressions Chest/Abdomen/Pelvis CT 06/01/25 17:56 IMPRESSION: CHEST- 1. No acute findings. ABDOMEN/PELVIS- 1. Cystitis not excluded. 2. Mild colitis not excluded. 3. Otherwise no acute abnormality given noncontrast technique. Head CT 06/01/25 19:30 IMPRESSION: 1. No acute intracranial findings or change from prior exam. Chest X-Ray 06/03/25 16:52 Impression: Line placement as above. No pneumothorax Labs Labs: Laboratory Tests 06/03/25 04:08 06/03/25 04:08 Lactic Acid 0.9 Calcium 8.3 L Phosphorus 12.0 H Magnesium 2.3 Total Bilirubin 0.6 AST 26 ALT 7 Alkaline Phosphatase 76 Total Creatine Kinase < 20 L Total Protein 7.7 Albumin 3.9 Microbiology 06/01/25 16:14 Blood Blood Culture - Preliminary 06/01/25 16:17 Blood Blood Culture - Preliminary
--- NOTE | 2025-06-03 18:25 | PC.NURSE ---
Pt taken immediately from pacu to hemodialysis. Pacu nurse came up to floor to give report and handed me pacu report sheet.
[2025-06-03] MEDS: HYDROcodone/acetaminophen (*CRX) 5-325 MG TABLET 1 TAB PO (21:35)
[2025-06-04] VITALS (23 sets, daily range): BP systolic 103–189; BP diastolic 56–95; PULSE 74–138; RESP 18–22; TEMP 36.4–37.5; O2SAT 96–100
[2025-06-04] MEDS: METOPROLOL TARTRATE INJ 5 MG/5 ML VIAL IV PUSH (00:19)
[2025-06-04] MEDS: HYDROcodone/acetaminophen (*CRX) 5-325 MG TABLET 1 TAB PO ×3 (01:10→11:31)
[2025-06-04 04:15] LABS: Hematocrit 37.2 % (37.0-47.0); Hemoglobin 12.2 g/dL (12.0-15.0); Immature Granulocyte Percent A 0.8 % (0-0.5); Lymphocytes Absolute Auto 1.84 K/mm3 (0.9-3.2); Mean Corpuscular HGB Conc 32.8 g/dl (32-36); Mean Corpuscular Hemoglobin 28.8 pg (26-34); Mean Corpuscular Volume 87.7 fl (80-100); Nucleated Red Blood Cells Absolute Auto 0.000 K/mm3 (0.0-0.012); Nucleated Red Blood Cells Perc 0.0 % (0.0-0.2); Platelet Count Result 446 k/mm3 (150-375); Red Blood Count 4.24 M/mm3 (4.2-5.4); White Blood Count 22.0 K/mm3 (4.5-10.0)
[2025-06-04 04:30] LABS: Alanine Aminotransferase 9 U/L (6-35); Albumin Level 4.3 g/dL (3.5-5.1); Alkaline Phosphatase 92 U/L (38-126); Anion Gap 21 mmol/L (4-12); Aspartate Amino Transferase 23 U/L (14-36); Bilirubin,Total 0.7 mg/dL (0.2-1.3); Blood Urea Nitrogen 63 mg/dL (7-17); Calcium 9.2 mg/dL (8.4-10.2); Carbon Dioxide 17 mmol/L (22-30); Chloride 100 mmol/L (98-107); Estimated CRCL calculation 11 ml/min; Estimated Glomerular Filt Rate 12; Glucose 149 mg/dL (65-110); Magnesium 2.3 mg/dL (1.6-2.3); Potassium 4.5 mmol/L (3.4-5.0); Sodium 138 mmol/L (137-145); Total Protein 8.5 g/dL (6.3-8.2)
[2025-06-04] MEDS: metroNIDAZOLE 500 MG/ISO 100ML 500 MG/100 ML BAG 100 MG IVPB ×2 (05:12→21:39)
--- NOTE | 2025-06-04 06:44 | P.PNCROSS_ITS ---
Event Note Event Note Event Note: The patient stated that she was an immense pain and she is tired of being in pa in all the time. She stated that she does not want to go to hemodialysis this morning are ever again. She stated that she would like to be a DNR. We discussed hospice. Three people have spoke with her about her code status and she stated that she would like to be a DNR. I explained to her that she can change her mind at any time if she feels that she does not want to be a DNR. laboratory operations coordinator will be consulted for possible hospice.
--- NOTE | 2025-06-04 07:46 | PC.NURSE ---
Patient expressed her desire to be placed on hospice during change of shift. While rounding on the patient with off going RN, the patient stated that I do not want to go to dialysis, I want to . This RN informed the patient that we would get our housekeeper child care involved this morning and do what we can to abide by her wishes.
--- NOTE | 2025-06-04 11:26 | PC.NURSE ---
Called Dr Olmos and Dr Villa to inform them that the patient has decided that she wants to try and do hemodialysis (HD). Both verbalized understanding. Dr Villa is getting in touch with his HD nurse at this time.
--- NOTE | 2025-06-04 12:41 | P.PNINF_ITS ---
Progress Note: A&P Assessment and Plan (1) Severe sepsis: Code(s): A41.9 - Sepsis, unspecified organism; R65.20 - Severe sepsis without septic shock Status: Acute (2) Acute kidney injury: Code(s): N17.9 - Acute kidney failure, unspecified Status: Acute Assessment and Plan: -HD catheter placed on 06/03/25 -Acute HD management as per Nephrology service (3) Colitis: Code(s): K52.9 - Noninfective gastroenteritis and colitis, unspecified Status: Acute (4) Leukocytosis: Code(s): D72.829 - Elevated white blood cell count, unspecified Status: Acute Plan -Await blood cultures -Await urine culture although low suspicion for UTI -Monitor for diarrhea indicative of C.difficile infection -Continue Ceftriaxone day 2 -Continue Metronidazole IV day 3 empirically given mild colitis changes on CT scan Discussed with patient and at bedside. All questions answered. Patient was seen via video telehealth consultation with the assistance of staff. Chart, data, and patient independently reviewed. Patient was located at [facility] while I was located in my [place] office. Received verbal consent from patient. Subjective Date/time seen: 06/04/25 12:41 Interval history: Patient afebrile. Had left IJV non-tunneled HD catheter placed yesterday. Review of Systems Review of Systems: All systems reviewed & are unremarkable except as noted in HPI and below Exam Narrative: Gen: alert, fatigued Pulm: normal chest excursion, no accessory muscle use Abd: soft, nontender Ext: minimal edema Derm: no rash Lines:PIVs intact; left IJV non-tunneled IJV HD catheter intact (06/03/25) Objective Data Vital Signs Vital Signs: Vital Signs - 24 hr 06/03/25 14:42 06/03/25 16:26 06/03/25 16:40 Temperature 99.2 F 97.7 F Pulse Rate 113 H 123 H 125 H Respiratory Rate 18 20 17 Blood Pressure 174/84 H 163/74 H 165/74 H Pulse Oximetry 98 100 100 Oxygen Delivery Simple Face Mask Simple Face Mask Simple Face Mask Oxygen Flow Rate 10 6 6 Fraction of Inspired Oxygen 06/03/25 16:55 06/03/25 17:10 06/03/25 17:25 Temperature Pulse Rate 124 H 125 H 124 H Respiratory Rate 22 H 17 17 Blood Pressure 170/75 H 174/76 H 168/75 H Pulse Oximetry 100 99 97 Oxygen Delivery Simple Face Mask Room Air Room Air Oxygen Flow Rate 6 Fraction of Inspired Oxygen 06/03/25 17:30 06/03/25 17:30 06/03/25 17:44 Temperature 96.7 F L Pulse Rate 124 H 121 H Respiratory Rate 16 Blood Pressure 166/91 H 181/91 H Pulse Oximetry 96 Oxygen Delivery Oxygen Flow Rate Fraction of Inspired Oxygen 96 06/03/25 18:00 06/03/25 18:16 06/03/25 18:31 Temperature Pulse Rate 127 H 126 H 125 H Respiratory Rate Blood Pressure 177/100 H 160/90 H 159/93 H Pulse Oximetry Oxygen Delivery Oxygen Flow Rate Fraction of Inspired Oxygen 06/03/25 18:45 06/03/25 19:00 06/03/25 19:15 Temperature Pulse Rate 128 H 127 H 126 H Respiratory Rate Blood Pressure 93/64 L 145/87 H 160/95 H Pulse Oximetry Oxygen Delivery Oxygen Flow Rate Fraction of Inspired Oxygen 06/03/25 19:30 06/03/25 19:44 06/03/25 19:49 Temperature 97.4 F L Pulse Rate 129 H 124 H 124 H Respiratory Rate 16 Blood Pressure 178/100 H 164/92 H 182/92 H Pulse Oximetry 96 Oxygen Delivery Oxygen Flow Rate Fraction of Inspired Oxygen 06/03/25 20:44 06/03/25 22:00 06/04/25 00:00 Temperature 97.6 F 98.2 F Pulse Rate 125 H 131 H 134 H Respiratory Rate 15 19 Blood Pressure 160/86 H 173/84 H Pulse Oximetry 98 97 Oxygen Delivery Oxygen Flow Rate Fraction of Inspired Oxygen 06/04/25 00:00 06/04/25 00:19 06/04/25 02:00 Temperature Pulse Rate 132 H 135 H 111 H Respiratory Rate Blood Pressure Pulse Oximetry Oxygen Delivery Oxygen Flow Rate Fraction of Inspired Oxygen 06/04/25 04:00 06/04/25 04:00 06/04/25 06:00 Temperature 98.0 F Pulse Rate 115 H 109 H 118 H Respiratory Rate 18 Blood Pressure 185/87 H Pulse Oximetry 96 Oxygen Delivery Oxygen Flow Rate Fraction of Inspired Oxygen 06/04/25 08:00 Temperature 98.4 F Pulse Rate 117 H Respiratory Rate 22 H Blood Pressure 189/95 H Pulse Oximetry 98 Oxygen Delivery Oxygen Flow Rate Fraction of Inspired Oxygen Intake/Output Intake/Output: Intake & Output 06/01/25 06/02/25 06/03/25 06/04/25 23:59 23:59 23:59 23:59 Intake Total 1050 440 610 100 Output Total 150 0 1592 1325 Balance 900 440 -577 -1220 Meds/Results Medications: Active Medications Generic Name Dose Route Start Last Admin Trade Name Freq PRN Reason Stop Dose Admin Acetaminophen 650 mg 06/03/25 20:21 Acetaminophen 325 Mg Tablet PO Q6H PRN Mild Pain (1-3) or Fever Hydrocodone Bitart/Acetaminophen 1 tab 06/03/25 20:21 06/04/25 11:31 Hydrocodone/Acetaminophen (*Crx) 5-325 Mg Tablet PO 1 tab Q4H PRN Administration Pain Rated 4-6 Atorvastatin Calcium 20 mg 06/02/25 09:00 06/02/25 10:07 Atorvastatin 20 Mg Tablet BY MOUTH Not Given On Hold: 06/02/25 14:42 DAILY [facility] Bisacodyl 10 mg 06/02/25 03:32 Bisacodyl 10 Mg Suppository RECTAL DAILY PRN Constipation Clonidine HCl 0.3 mg 06/02/25 09:00 06/02/25 11:58 Clonidine Hcl 0.1 Mg Tablet BY MOUTH Not Given On Hold: 06/02/25 14:42 BID [facility] Dextrose 12.5 gm 06/02/25 03:31 Dextrose 50% 25 Gm/50 Ml Syringe IV PUSH PRN PRN Hypoglycemia Protocol Gabapentin 300 mg 06/02/25 09:00 06/02/25 10:07 Gabapentin 300 Mg Capsule PO Not Given On Hold: 06/02/25 14:42 DAILY [facility] Glucagon 1 mg 06/02/25 03:31 Glucagon For Inj 1 Mg Vial IM PRN PRN Hypoglycemia Protocol Glucose 15 gm 06/02/25 03:31 Glucose Oral Gel 15 Gm Of Glucse In 37.5 Gm Tube PO PRN PRN Hypoglycemia Protocol Heparin Sodium (Porcine) 5,000 units 06/02/25 22:00 06/04/25 05:12 Heparin Sodium 5,000 Units/Ml Vial SUB-Q 5,000 units Q8HR [facility] Administration Hydralazine HCl 25 mg 06/04/25 09:20 06/04/25 09:38 Hydralazine Hcl 25 Mg Tablet PO Not Given Q6HR [facility] Sodium Chloride 1,000 mls @ 75 mls/hr 06/02/25 03:30 06/02/25 04:14 Normal Saline Iv IV CONT 75 mls/hr On Hold: 06/02/25 10:04 .[id number] [facility] Administration Dextrose 1,000 mls @ 100 mls/hr 06/02/25 03:31 Dextrose 5% 1,000 Ml IVPB PRN PRN Hypoglycemia Protocol Metronidazole 500 mg in 100 mls @ 100 mls/hr 06/02/25 15:30 06/04/25 05:12 Flagyl 500 Mg/Iso Soln 100 Ml IVPB 100 mls/hr Q8HR [facility] Administration Albumin Human 50 mls @ 999 mls/hr 06/03/25 08:37 Albutein IVPB 07/03/25 08:36 Q10M PRN HYPOTENSION Ceftriaxone Sodium 1 gm/ 50 mls @ 100 mls/hr 06/03/25 09:00 06/04/25 09:38 Sodium Chloride IVPB Not Given Q24H [facility] Insulin Aspart 2 - 5 units 06/02/25 08:00 06/03/25 16:07 Insulin Aspart (*Bkc) 100 Units/Ml SUB-Q Not Given TIDWM [facility] Protocol Isosorbide Mononitrate 30 mg 06/04/25 09:20 06/04/25 09:38 Isosorbide Mononitrate 30 Mg Tab.Er.24h PO Not Given QAM [facility] Metoprolol Tartrate 100 mg 06/02/25 09:00 06/02/25 10:07 Metoprolol Tartrate 50 Mg Tab BY MOUTH Not Given On Hold: 06/02/25 14:42 Q12HR [facility] Metoprolol Tartrate 5 mg 06/02/25 09:43 06/04/25 00:19 Metoprolol Tartrate Inj 5 Mg/5 Ml Vial IV PUSH 5 mg Q6H PRN Administration tachycardia >100 Pantoprazole Sodium 40 mg 06/02/25 09:00 06/02/25 10:07 Pantoprazole 40 Mg Tablet PO Not Given On Hold: 06/02/25 14:42 DAILY [facility] Radiology Results: ITS Impressions Chest/Abdomen/Pelvis CT 06/01/25 17:56 IMPRESSION: CHEST- 1. No acute findings. ABDOMEN/PELVIS- 1. Cystitis not excluded. 2. Mild colitis not excluded. 3. Otherwise no acute abnormality given noncontrast technique. Head CT 06/01/25 19:30 IMPRESSION: 1. No acute intracranial findings or change from prior exam. Chest X-Ray 06/03/25 16:52 Impression: Line placement as above. No pneumothorax Labs Labs: Laboratory Results - last 24 hr 06/03/25 06/03/25 06/03/25 14:38 16:32 21:06 WBC RBC Hgb Hct MCV MCH MCHC RDW Plt Count MPV Immature Gran % (Auto) Neut % (Auto) Lymph % (Auto) Bartholomew % (Auto) Eos % (Auto) Baso % (Auto) Lymph # (Auto) Bartholomew # (Auto) Eos # (Auto) Baso # (Auto) Abs Immat Gran (auto) Absolute Neuts (auto) Absolute Nucleated RBC Nucleated RBC % Sodium Potassium Chloride Carbon Dioxide Anion Gap BUN Creatinine Estim Creat Clear Calc Estimated GFR Glucose POC Capillary Glucose 110 H 129 H 121 H Lactic Acid Calcium Phosphorus Magnesium Total Bilirubin AST ALT Alkaline Phosphatase Total Protein Albumin Hep B Core Total Ab 06/04/25 06/04/25 06/04/25 04:03 07:15 11:58 WBC 22.0 H RBC 4.24 Hgb 12.2 Hct 37.2 MCV 87.7 MCH 28.8 MCHC 32.8 RDW 13.7 Plt Count 446 H MPV 10.0 Immature Gran % (Auto) 0.8 H Neut % (Auto) 82.7 H Lymph % (Auto) 8.4 L Bartholomew % (Auto) 7.7 Eos % (Auto) 0.0 Baso % (Auto) 0.4 Lymph # (Auto) 1.84 Bartholomew # (Auto) 1.7 H Eos # (Auto) 0.0 Baso # (Auto) 0.1 Abs Immat Gran (auto) 0.18 H Absolute Neuts (auto) 18.2 H Absolute Nucleated RBC 0.000 Nucleated RBC % 0.0 Sodium 138 Potassium 4.5 Chloride 100 Carbon Dioxide 17 L Anion Gap 21 H BUN 63 H D Creatinine 3.73 H Estim Creat Clear Calc 11 Estimated GFR 12 L Glucose 149 H POC Capillary Glucose 148 H 127 H Lactic Acid 1.0 Calcium 9.2 Phosphorus 7.2 H Magnesium 2.3 Total Bilirubin 0.7 AST 23 ALT 9 Alkaline Phosphatase 92 Total Protein 8.5 H Albumin 4.3 Hep B Core Total Ab Cancelled
--- NOTE | 2025-06-04 13:02 | P.PNIM_ITS ---
Progress Note: A&P Assessment and Plan (1) RENEA (acute kidney injury): Code(s): N17.9 - Acute kidney failure, unspecified Status: Resolved Assessment and Plan: -the patient has acute on chronic renal failure with uremia -patient had a renal ultrasound on 04/27/2025: Trabeculated bladder appearance with thickening. Focal thickening more prominent superiorly on the right. Cannot exclude transitional cell carcinoma possibly superimposed on cystitis. Recommend urology consultation. -urology saw the patient on 04/27/2025 and noted no acute urological surgical intervention is indicated. It was noted that they will follow her peripherally. -continue with IV fluid -monitor BMP -today BUN is 63 and creatinine 3.73. Her BUN on 04/30/2025 was 28 with a creatinine 1.02. Continue dialysis Nephrology following (2) DM2 (diabetes mellitus, type 2): Qualifiers: Diabetes mellitus usp insulin use: without intermodal truck driver use Diabetes mellitus complication status: with hyperglycemia Qualified Code(s): E11.65 - Type 2 diabetes mellitus with hyperglycemia Code(s): E11.9 - Type 2 diabetes mellitus without complications Status: Chronic Assessment and Plan: -I am holding her p.o. medication. -sliding scale insulin -last A1c a couple days ago was 6.0. -her blood sugar was 169. (3) Essential (primary) hypertension: Code(s): I10 - Essential (primary) hypertension Status: Chronic Assessment and Plan: -blood pressure 161/80. -continue with clonidine if blood pressure allows -continue with metoprolol F blood pressure allow (4) Congestive heart failure: Code(s): I50.9 - Heart failure, unspecified Status: Chronic Assessment and Plan: -continue with metoprolol -[place] is currently on hold due to her acute renal failure. -last echo performed was in 2022. -echo showed left ventricular hypertrophy with hyperdynamic systolic -spironolactone on hold at this time. (5) Hyperlipidemia: Code(s): E78.5 - Hyperlipidemia, unspecified Status: Acute Assessment and Plan: -continue without atorvastatin and monitor liver enzymes (6) Generalized anxiety disorder: Code(s): F41.1 - Generalized anxiety disorder Status: Inactive (7) Hyperkalemia: Code(s): E87.5 - Hyperkalemia Status: Acute Assessment and Plan: -most likely secondary to the acute kidney injury -she has also been on spironolactone which is now on hold. -the patient was given Lokelma in the emergency room. -daily BMPs. -her potassium was 5.3. Plan AMS from uremia improving with dialysis Pain medication and muscle relaxers held at this time due to her acute altered mental status. monitor Colitis CT AP reviewed contineu Rocpehin and Flagyl Leukocytosis improving monitor Cystitis per CT AP urine culture pending on Rocephin montior DVT prophylaxis on Sq heparin Subjective Date/time seen: 06/04/25 13:02 Interval history: Comfortable at bedside Review of Systems Review of Systems: ROS unobtainable: Yes unobtainable due to medical condition and unobtainable due to mental status ENT: Reports Normal hearing present Neurologic: Reports Normal hearing present Exam Narrative: General: lethargic HEENT: Normocephalic. Atraumatic. Extraocular movement intact. Sclera clear and anicteric. No facial asymmetry. Chest: Lungs are coarse to auscultation bilaterally. CV: Heart was regular rate and rhythm. Abd: Abdomen was soft. Nontender. Nondistended. Positive bowel sounds. Ext: No clubbing, cyanosis, or edema. DP pulses bilaterally. Neuro: Patient is alert to voice and upon return able AOx1 (person), following some commands. Symmetrical bacon skinner strength and wiggles toes. Skin: Warm and dry. No rashes or ulcers noted. Const: General: cooperative, no acute distress, well developed, awake, Physically active, average body habitus and well nourished Nutritional Appearance: average body habitus and well nourished Orientation/consciousness: oriented to person, oriented to place, oriented to time and patient oriented x3 HENMT: Head: normal to inspection, No palpable skull fracture present, normocephalic and atraumatic Ears: hearing grossly normal bilaterally Eyes: General: appearance normal, both eyes and all related structures Alignment and Position: alignment normal Periorbital: periorbital findings normal Eyelids: eyelids normal Pupils: Equal, round and reactive pupils present Neck: Neck: normal visual inspection and full ROM Chest: Chest palpation & inspection: normal inspection of the chest Resp: Effort & Inspection: normal respiratory effort Auscultation: clear to auscultation bilaterally Cardio: Palpation: normal PMI Rate: regular rate Rhythm: regular rhythm Heart sounds: S1 normal heart sound present and S2 normal heart sound present Peripheral pulses: Peripheral pulses 2+ throughout GI: Inspection: normal to inspection Auscultation: normal bowel sounds Rectal Exam: deferred Skin: General skin exam: normal color Lesions: no lesions Rashes: no rashes Trauma: no lacerations or abrasions Wounds: no wounds Hair: normal Nails: normal Neuro: General: oriented to person, oriented to place, oriented to time and patient oriented x3 Cranial nerves: Yes Equal, round and reactive pupils present and Yes Normal hearing present Cognition (Neuro): normal cognition Speech: normal speech Motor exam (neuro): 5/5 motor strength present throughout Sensory Exam: normal sensation Extrem: General: normal to inspection Right upper extremity: normal to inspection and shoulder/upper arm Left upper extremity: normal to inspection and shoulder/upper arm Right lower extremity: normal to inspection Left lower extremity: normal to inspection Psych: Mental Status: other Affect: normal affect Attitude: cooperative Objective Data Vital Signs Vital Signs: Vital Signs - 24 hr 06/03/25 14:42 06/03/25 16:26 06/03/25 16:40 Temperature 99.2 F 97.7 F Pulse Rate 113 H 123 H 125 H Respiratory Rate 18 20 17 Blood Pressure 174/84 H 163/74 H 165/74 H Pulse Oximetry 98 100 100 Oxygen Delivery Simple Face Mask Simple Face Mask Simple Face Mask Oxygen Flow Rate 10 6 6 Fraction of Inspired Oxygen 06/03/25 16:55 06/03/25 17:10 06/03/25 17:25 Temperature Pulse Rate 124 H 125 H 124 H Respiratory Rate 22 H 17 17 Blood Pressure 170/75 H 174/76 H 168/75 H Pulse Oximetry 100 99 97 Oxygen Delivery Simple Face Mask Room Air Room Air Oxygen Flow Rate 6 Fraction of Inspired Oxygen 06/03/25 17:30 06/03/25 17:30 06/03/25 17:44 Temperature 96.7 F L Pulse Rate 124 H 121 H Respiratory Rate 16 Blood Pressure 166/91 H 181/91 H Pulse Oximetry 96 Oxygen Delivery Oxygen Flow Rate Fraction of Inspired Oxygen 96 06/03/25 18:00 06/03/25 18:16 06/03/25 18:31 Temperature Pulse Rate 127 H 126 H 125 H Respiratory Rate Blood Pressure 177/100 H 160/90 H 159/93 H Pulse Oximetry Oxygen Delivery Oxygen Flow Rate Fraction of Inspired Oxygen 06/03/25 18:45 06/03/25 19:00 06/03/25 19:15 Temperature Pulse Rate 128 H 127 H 126 H Respiratory Rate Blood Pressure 93/64 L 145/87 H 160/95 H Pulse Oximetry Oxygen Delivery Oxygen Flow Rate Fraction of Inspired Oxygen 06/03/25 19:30 06/03/25 19:44 06/03/25 19:49 Temperature 97.4 F L Pulse Rate 129 H 124 H 124 H Respiratory Rate 16 Blood Pressure 178/100 H 164/92 H 182/92 H Pulse Oximetry 96 Oxygen Delivery Oxygen Flow Rate Fraction of Inspired Oxygen 06/03/25 20:44 06/03/25 22:00 06/04/25 00:00 Temperature 97.6 F 98.2 F Pulse Rate 125 H 131 H 134 H Respiratory Rate 15 19 Blood Pressure 160/86 H 173/84 H Pulse Oximetry 98 97 Oxygen Delivery Oxygen Flow Rate Fraction of Inspired Oxygen 06/04/25 00:00 06/04/25 00:19 06/04/25 02:00 Temperature Pulse Rate 132 H 135 H 111 H Respiratory Rate Blood Pressure Pulse Oximetry Oxygen Delivery Oxygen Flow Rate Fraction of Inspired Oxygen 06/04/25 04:00 06/04/25 04:00 06/04/25 06:00 Temperature 98.0 F Pulse Rate 115 H 109 H 118 H Respiratory Rate 18 Blood Pressure 185/87 H Pulse Oximetry 96 Oxygen Delivery Oxygen Flow Rate Fraction of Inspired Oxygen 06/04/25 08:00 Temperature 98.4 F Pulse Rate 117 H Respiratory Rate 22 H Blood Pressure 189/95 H Pulse Oximetry 98 Oxygen Delivery Oxygen Flow Rate Fraction of Inspired Oxygen Intake/Output Intake/Output: Intake & Output 06/01/25 06/02/25 06/03/25 06/04/25 23:59 23:59 23:59 23:59 Intake Total 1050 440 610 100 Output Total 150 0 1592 1325 Balance 900 440 -982 -1225 Meds/Results Medications: Active Medications Generic Name Dose Route Start Last Admin Trade Name Freq PRN Reason Stop Dose Admin Acetaminophen 650 mg 06/03/25 20:21 Acetaminophen 325 Mg Tablet PO Q6H PRN Mild Pain (1-3) or Fever Hydrocodone Bitart/Acetaminophen 1 tab 06/03/25 20:21 06/04/25 11:31 Hydrocodone/Acetaminophen (*Crx) 5-325 Mg Tablet PO 1 tab Q4H PRN Administration Pain Rated 4-6 Atorvastatin Calcium 20 mg 06/02/25 09:00 06/02/25 10:07 Atorvastatin 20 Mg Tablet BY MOUTH Not Given On Hold: 06/02/25 14:42 DAILY [facility] Bisacodyl 10 mg 06/02/25 03:32 Bisacodyl 10 Mg Suppository RECTAL DAILY PRN Constipation Clonidine HCl 0.3 mg 06/02/25 09:00 06/02/25 11:58 Clonidine Hcl 0.1 Mg Tablet BY MOUTH Not Given On Hold: 06/02/25 14:42 BID USAMA Dextrose 12.5 gm 06/02/25 03:31 Dextrose 50% 25 Gm/50 Ml Syringe IV PUSH PRN PRN Hypoglycemia Protocol Gabapentin 300 mg 06/02/25 09:00 06/02/25 10:07 Gabapentin 300 Mg Capsule PO Not Given On Hold: 06/02/25 14:42 DAILY UASMA Glucagon 1 mg 06/02/25 03:31 Glucagon For Inj 1 Mg Vial IM PRN PRN Hypoglycemia Protocol Glucose 15 gm 06/02/25 03:31 Glucose Oral Gel 15 Gm Of Glucse In 37.5 Gm Tube PO PRN PRN Hypoglycemia Protocol Heparin Sodium (Porcine) 5,000 units 06/02/25 22:00 06/04/25 05:12 Heparin Sodium 5,000 Units/Ml Vial SUB-Q 5,000 units Q8HR USAMA Administration Hydralazine HCl 25 mg 06/04/25 09:20 06/04/25 09:38 Hydralazine Hcl 25 Mg Tablet PO Not Given Q6HR USAMA Sodium Chloride 1,000 mls @ 75 mls/hr 06/02/25 03:30 06/02/25 04:14 Normal Saline Iv IV CONT 75 mls/hr On Hold: 06/02/25 10:04 .[id number] USAMA Administration Dextrose 1,000 mls @ 100 mls/hr 06/02/25 03:31 Dextrose 5% 1,000 Ml IVPB PRN PRN Hypoglycemia Protocol Metronidazole 500 mg in 100 mls @ 100 mls/hr 06/02/25 15:30 06/04/25 05:12 Flagyl 500 Mg/Iso Soln 100 Ml IVPB 100 mls/hr Q8HR [facility] Administration Albumin Human 50 mls @ 999 mls/hr 06/03/25 08:37 Albutein IVPB 07/03/25 08:36 Q10M PRN HYPOTENSION Ceftriaxone Sodium 1 gm/ 50 mls @ 100 mls/hr 06/03/25 09:00 06/04/25 09:38 Sodium Chloride IVPB Not Given Q24H [facility] Insulin Aspart 2 - 5 units 06/02/25 08:00 06/03/25 16:07 Insulin Aspart (*Bkc) 100 Units/Ml SUB-Q Not Given TIDWM [facility] Protocol Isosorbide Mononitrate 30 mg 06/04/25 09:20 06/04/25 09:38 Isosorbide Mononitrate 30 Mg Tab.Er.24h PO Not Given QAM [facility] Metoprolol Tartrate 100 mg 06/02/25 09:00 06/02/25 10:07 Metoprolol Tartrate 50 Mg Tab BY MOUTH Not Given On Hold: 06/02/25 14:42 Q12HR [facility] Metoprolol Tartrate 5 mg 06/02/25 09:43 06/04/25 00:19 Metoprolol Tartrate Inj 5 Mg/5 Ml Vial IV PUSH 5 mg Q6H PRN Administration tachycardia >100 Pantoprazole Sodium 40 mg 06/02/25 09:00 06/02/25 10:07 Pantoprazole 40 Mg Tablet PO Not Given On Hold: 06/02/25 14:42 DAILY [facility] Radiology Results: ITS Impressions Chest/Abdomen/Pelvis CT 06/01/25 17:56 IMPRESSION: CHEST- 1. No acute findings. ABDOMEN/PELVIS- 1. Cystitis not excluded. 2. Mild colitis not excluded. 3. Otherwise no acute abnormality given noncontrast technique. Head CT 06/01/25 19:30 IMPRESSION: 1. No acute intracranial findings or change from prior exam. Chest X-Ray 06/03/25 16:52 Impression: Line placement as above. No pneumothorax Labs Labs: Laboratory Results - last 24 hr 06/03/25 06/03/25 06/03/25 14:38 16:32 21:06 WBC RBC Hgb Hct MCV MCH MCHC RDW Plt Count MPV Immature Gran % (Auto) Neut % (Auto) Lymph % (Auto) [place] % (Auto) Eos % (Auto) Baso % (Auto) Lymph # (Auto) [place] # (Auto) Eos # (Auto) Baso # (Auto) Abs Immat Gran (auto) Absolute Neuts (auto) Absolute Nucleated RBC Nucleated RBC % Sodium Potassium Chloride Carbon Dioxide Anion Gap BUN Creatinine Estim Creat Clear Calc Estimated GFR Glucose POC Capillary Glucose 110 H 129 H 121 H Lactic Acid Calcium Phosphorus Magnesium Total Bilirubin AST ALT Alkaline Phosphatase Total Protein Albumin Hep B Core Total Ab 06/04/25 06/04/25 06/04/25 04:03 07:15 11:58 WBC 22.0 H RBC 4.24 Hgb 12.2 Hct 37.2 MCV 87.7 MCH 28.8 MCHC 32.8 RDW 13.7 Plt Count 446 H MPV 10.0 Immature Gran % (Auto) 0.8 H Neut % (Auto) 82.7 H Lymph % (Auto) 8.4 L [place] % (Auto) 7.7 Eos % (Auto) 0.0 Baso % (Auto) 0.4 Lymph # (Auto) 1.84 [place] # (Auto) 1.7 H Eos # (Auto) 0.0 Baso # (Auto) 0.1 Abs Immat Gran (auto) 0.18 H Absolute Neuts (auto) 18.2 H Absolute Nucleated RBC 0.000 Nucleated RBC % 0.0 Sodium 138 Potassium 4.5 Chloride 100 Carbon Dioxide 17 L Anion Gap 21 H BUN 63 H D Creatinine 3.73 H Estim Creat Clear Calc 11 Estimated GFR 12 L Glucose 149 H POC Capillary Glucose 148 H 127 H Lactic Acid 1.0 Calcium 9.2 Phosphorus 7.2 H Magnesium 2.3 Total Bilirubin 0.7 AST 23 ALT 9 Alkaline Phosphatase 92 Total Protein 8.5 H Albumin 4.3 Hep B Core Total Ab Cancelled Quality VTE Prophylaxis VTE prophylaxis: pharmacologic ordered
--- NOTE | 2025-06-04 13:56 | P.PNNP_ITS ---
Progress Note: A&P Assessment and Plan (1) Acute kidney injury: Code(s): N17.9 - Acute kidney failure, unspecified Status: Acute Assessment and Plan: * as noted by admission creatinine (6.31mg/dl) * creatinine 1.02mg/dl on discharge on 04/30/25 * etiology not clear -- infection/sepsis/SIRS, prerenal factors, other(?) * evaluation noted: * renal ultrasound a month ago noted * CT of A/P on this admission with no hydronephrosis * urine electrolytes prerenal (by FeUrea) * urine eosinophils negative * nephrotic range proteinuria (question validity since from starr catheter) * CPK low * questionable infection by UA * reasonable urine output noted * concern that altered mental status/encephalopathy may be due to uremia (BUN quite elevated)... * initiated on SOFA BACK UPHOLSTERER on 06/03 * HD today * likely plan HD tomorrow * follow trend of repeat labs and UOP (2) Hyperkalemia: Code(s): E87.5 - Hyperkalemia Status: Acute Assessment and Plan: * presumably due to JOSHUA in the context of spironolactone use and associated acidosis * s/p medical management * follow trend of K+ * dialysis should help stabilize/correct as well (3) Altered mental status: Qualifiers: Altered mental status type: unspecified Qualified Code(s): R41.82 - Altered mental status, unspecified Code(s): R41.82 - Altered mental status, unspecified Status: Acute Assessment and Plan: * slow improvement * apparently normal mentation at baseline (as noted by progress notes from last hospitalization) * possibly secondary to uremia versus underlying infecton (given elevated WBC) versus other(?) * follow mentation (4) Leukocytosis: Code(s): D72.829 - Elevated white blood cell count, unspecified Status: Acute Assessment and Plan: * concern is for possible infection/sepsis * no clear source at this time * follow culture data * Infectious Disease following * on antibiotics (5) Metabolic acidosis: Code(s): E87.20 - Acidosis, unspecified Status: Acute Assessment and Plan: * due to Joshua/ARF * initial lactic acidosis on admission likely contributing as well * lactic acid has normalized * dialysis should help correct/stabilize * follow trend of CO2 (6) Congestive heart failure: Code(s): I50.9 - Heart failure, unspecified Status: Chronic Assessment and Plan: * reported history * appears compensated at this time * Echo (on 06/02) noted: * left ventricular systolic function is hyperdynamic, estimated at >70. There is mild concentric increased * left ventricular diastolic function is grade I diastolic dysfunction * mild aortic valve sclerosis * mitral valve annulus is severely calcified * mild tricuspid valve regurgitation * follow volume status (7) Essential (primary) hypertension: Code(s): I10 - Essential (primary) hypertension Status: Chronic Assessment and Plan: * running a bit on the high side * restart home BP medications gradually * holding spironolactone * follow trend of hemodynamics (8) DM2 (diabetes mellitus, type 2): Qualifiers: Diabetes mellitus complication status: with hyperglycemia 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 L Subjective Date/time seen: 06/04/25 13:56 Interval history: Follow-up for acute kidney injury/acute renal failure. Refused dialysis earlier today and make statements to overnight staff and physicians that she tired of being pain and wanted to be DNR; hospice was discussed as well; subsequently, her visited her and convinced her to continue with dialysis; tolerating dialysis treatment at the time of my visit (seen on HD at 1:45pm). Exam 2 Narrative: General: elderly but WD/WN female in NAD but confused Heart: normal S1 and S2; no rub Lungs: clear anteriorly Abdomen: soft, nontender, nondistended, positive bowel sounds Extremities: no cyanosis or clubbing; no edema Skin: warm and intact Objective Data Vital Signs Vital Signs: Vital Signs Temp Pulse Resp BP Pulse Ox O2 Del Method FiO2 06/04/25 13:45 136 H 162/87 H 06/04/25 13:30 120 H 163/95 H 06/04/25 13:23 97.6 F 122 H 18 187/94 H 97 06/04/25 12:00 97.7 F 74 20 162/66 H 100 06/04/25 12:00 121 H 18 97 Room Air 96 06/04/25 12:00 121 H 06/04/25 08:00 121 H 06/04/25 08:00 121 H 22 H 98 Room Air 96 06/04/25 08:00 98.4 F 117 H 22 H 189/95 H 98 06/04/25 06:00 118 H 06/04/25 04:00 109 H 06/04/25 04:00 98.0 F 115 H 18 185/87 H 96 06/04/25 02:00 111 H 06/04/25 00:19 135 H 06/04/25 00:00 132 H 06/04/25 00:00 98.2 F 134 H 19 173/84 H 97 06/03/25 22:00 131 H 06/03/25 20:44 97.6 F 125 H 15 160/86 H 98 06/03/25 19:49 97.4 F L 124 H 16 182/92 H 96 06/03/25 19:44 124 H 164/92 H 06/03/25 19:30 129 H 178/100 H 06/03/25 19:15 126 H 160/95 H 06/03/25 19:00 127 H 145/87 H 06/03/25 18:45 128 H 93/64 L 06/03/25 18:31 125 H 159/93 H 06/03/25 18:16 126 H 160/90 H 06/03/25 18:00 127 H 177/100 H 06/03/25 17:44 121 H 181/91 H Intake/Output Intake/Output: Intake & Output 06/01/25 06/02/25 06/03/25 06/04/25 23:59 23:59 23:59 23:59 Intake Total 1050 440 610 235 Output Total 150 0 1592 1325 Balance 900 440 -982 -1090 Meds/Results Medications: Active Medications Generic Name Dose Route Start Last Admin Trade Name Freq PRN Reason Stop Dose Admin Acetaminophen 650 mg 06/03/25 20:21 Acetaminophen 325 Mg Tablet PO Q6H PRN Mild Pain (1-3) or Fever Hydrocodone Bitart/Acetaminophen 1 tab 06/03/25 20:21 06/04/25 11:31 Hydrocodone/Acetaminophen (*Crx) 5-325 Mg Tablet PO 1 tab Q4H PRN Administration Pain Rated 4-6 Atorvastatin Calcium 20 mg 06/02/25 09:00 06/02/25 10:07 Atorvastatin 20 Mg Tablet BY MOUTH Not Given On Hold: 06/02/25 14:42 DAILY [facility] Bisacodyl 10 mg 06/02/25 03:32 Bisacodyl 10 Mg Suppository RECTAL DAILY PRN Constipation Clonidine HCl 0.3 mg 06/02/25 09:00 06/02/25 11:58 Clonidine Hcl 0.1 Mg Tablet BY MOUTH Not Given On Hold: 06/02/25 14:42 BID USAMA Dextrose 12.5 gm 06/02/25 03:31 Dextrose 50% 25 Gm/50 Ml Syringe IV PUSH PRN PRN Hypoglycemia Protocol Gabapentin 300 mg 06/02/25 09:00 06/02/25 10:07 Gabapentin 300 Mg Capsule PO Not Given On Hold: 06/02/25 14:42 DAILY [facility] Glucagon 1 mg 06/02/25 03:31 Glucagon For Inj 1 Mg Vial IM PRN PRN Hypoglycemia Protocol Glucose 15 gm 06/02/25 03:31 Glucose Oral Gel 15 Gm Of Glucse In 37.5 Gm Tube PO PRN PRN Hypoglycemia Protocol Heparin Sodium (Porcine) 5,000 units 06/02/25 22:00 06/04/25 16:48 Heparin Sodium 5,000 Units/Ml Vial SUB-Q Not Given Q8HR [facility] Hydralazine HCl 25 mg 06/04/25 09:20 06/04/25 16:47 Hydralazine Hcl 25 Mg Tablet PO Not Given Q6HR [facility] Sodium Chloride 1,000 mls @ 75 mls/hr 06/02/25 03:30 06/02/25 04:14 Normal Saline Iv IV CONT 75 mls/hr On Hold: 06/02/25 10:04 .[id number] [facility] Administration Dextrose 1,000 mls @ 100 mls/hr 06/02/25 03:31 Dextrose 5% 1,000 Ml IVPB PRN PRN Hypoglycemia Protocol Metronidazole 500 mg in 100 mls @ 100 mls/hr 06/02/25 15:30 06/04/25 16:48 Flagyl 500 Mg/Iso Soln 100 Ml IVPB Not Given Q8HR [facility] Albumin Human 50 mls @ 999 mls/hr 06/03/25 08:37 Albutein IVPB 07/03/25 08:36 Q10M PRN HYPOTENSION Ceftriaxone Sodium 1 gm/ 50 mls @ 100 mls/hr 06/03/25 09:00 06/04/25 09:38 Sodium Chloride IVPB Not Given Q24H [facility] Insulin Aspart 2 - 5 units 06/02/25 08:00 06/04/25 16:47 Insulin Aspart (*Bkc) 100 Units/Ml SUB-Q Not Given TIDWM [facility] Protocol Isosorbide Mononitrate 30 mg 06/04/25 09:20 06/04/25 09:38 Isosorbide Mononitrate 30 Mg Tab.Er.24h PO Not Given QAM [facility] Metoprolol Tartrate 100 mg 06/02/25 09:00 06/02/25 10:07 Metoprolol Tartrate 50 Mg Tab BY MOUTH Not Given On Hold: 06/02/25 14:42 Q12HR [facility] Metoprolol Tartrate 5 mg 06/02/25 09:43 06/04/25 00:19 Metoprolol Tartrate Inj 5 Mg/5 Ml Vial IV PUSH 5 mg Q6H PRN Administration tachycardia >100 Pantoprazole Sodium 40 mg 06/02/25 09:00 06/02/25 10:07 Pantoprazole 40 Mg Tablet PO Not Given On Hold: 06/02/25 14:42 DAILY [facility] Radiology Results: ITS Impressions Chest/Abdomen/Pelvis CT 06/01/25 17:56 IMPRESSION: CHEST- 1. No acute findings. ABDOMEN/PELVIS- 1. Cystitis not excluded. 2. Mild colitis not excluded. 3. Otherwise no acute abnormality given noncontrast technique. Head CT 06/01/25 19:30 IMPRESSION: 1. No acute intracranial findings or change from prior exam. Chest X-Ray 06/03/25 16:52 Impression: Line placement as above. No pneumothorax Labs Labs: Laboratory Tests 06/04/25 04:03 06/04/25 04:03 Lactic Acid 1.0 Calcium 9.2 Phosphorus 7.2 H Magnesium 2.3 Total Bilirubin 0.7 AST 23 ALT 9 Alkaline Phosphatase 92 Total Protein 8.5 H Albumin 4.3 Microbiology 06/01/25 16:14 Blood Blood Culture - Preliminary 06/01/25 16:17 Blood Blood Culture - Preliminary
--- NOTE | 2025-06-04 14:27 | WPDANESPN ---
Anes - Prog Note Post-Op Date/Time: 06/04/25 14:27 Cardiovascular status: normal Respiratory status: normal Airway patency: baseline Mental status: baseline Post-Op hydration status: normal Vital Signs: Last Vital Signs Temp 36.4 C 06/04/25 13:23 Pulse 120 H 06/04/25 13:30 Resp 18 06/04/25 13:23 BP 163/95 H 06/04/25 13:30 Pulse Ox 97 06/04/25 13:23 O2 Del Method Room Air 06/04/25 12:00 O2 Flow Rate 6 06/03/25 16:55 FiO2 96 06/04/25 12:00 Pain Score (VAS): 2 I/O: Intake & Output 06/03/25 06/04/25 06/04/25 23:59 07:59 15:59 Intake Total 130 100 135 Output Total 932 1325 Balance -802 -1225 135 Laboratory Tests 06/04/25 04:03 06/04/25 04:03 06/03/25 06/03/25 06/03/25 14:38 16:32 21:06 WBC RBC Hgb Hct MCV MCH MCHC RDW Plt Count MPV Immature Gran % (Auto) Neut % (Auto) Lymph % (Auto) [place] % (Auto) Eos % (Auto) Baso % (Auto) Lymph # (Auto) [place] # (Auto) Eos # (Auto) Baso # (Auto) Abs Immat Gran (auto) Absolute Neuts (auto) Absolute Nucleated RBC Nucleated RBC % Sodium Potassium Chloride Carbon Dioxide Anion Gap BUN Creatinine Estim Creat Clear Calc Estimated GFR Glucose POC Capillary Glucose 110 H 129 H 121 H Lactic Acid Calcium Phosphorus Magnesium Total Bilirubin AST ALT Alkaline Phosphatase Total Protein Albumin Hep B Core Total Ab 06/04/25 06/04/25 06/04/25 04:03 04:12 07:15 WBC 22.0 H RBC 4.24 Hgb 12.2 Hct 37.2 MCV 87.7 MCH 28.8 MCHC 32.8 RDW 13.7 Plt Count 446 H MPV 10.0 Immature Gran % (Auto) 0.8 H Neut % (Auto) 82.7 H Lymph % (Auto) 8.4 L [place] % (Auto) 7.7 Eos % (Auto) 0.0 Baso % (Auto) 0.4 Lymph # (Auto) 1.84 [place] # (Auto) 1.7 H Eos # (Auto) 0.0 Baso # (Auto) 0.1 Abs Immat Gran (auto) 0.18 H Absolute Neuts (auto) 18.2 H Absolute Nucleated RBC 0.000 Nucleated RBC % 0.0 Sodium 138 Potassium 4.5 Chloride 100 Carbon Dioxide 17 L Anion Gap 21 H BUN 63 H D Creatinine 3.73 H Estim Creat Clear Calc 11 Estimated GFR 12 L Glucose 149 H POC Capillary Glucose 148 H Lactic Acid 1.0 Calcium 9.2 Phosphorus 7.2 H Magnesium 2.3 Total Bilirubin 0.7 AST 23 ALT 9 Alkaline Phosphatase 92 Total Protein 8.5 H Albumin 4.3 Hep B Core Total Ab Cancelled Pending 06/04/25 11:58 WBC RBC Hgb Hct MCV MCH MCHC RDW Plt Count MPV Immature Gran % (Auto) Neut % (Auto) Lymph % (Auto) [place] % (Auto) Eos % (Auto) Baso % (Auto) Lymph # (Auto) [place] # (Auto) Eos # (Auto) Baso # (Auto) Abs Immat Gran (auto) Absolute Neuts (auto) Absolute Nucleated RBC Nucleated RBC % Sodium Potassium Chloride Carbon Dioxide Anion Gap BUN Creatinine Estim Creat Clear Calc Estimated GFR Glucose POC Capillary Glucose 127 H Lactic Acid Calcium Phosphorus Magnesium Total Bilirubin AST ALT Alkaline Phosphatase Total Protein Albumin Hep B Core Total Ab Microbiology 06/01/25 16:14 Blood Blood Culture - Preliminary 06/01/25 16:17 Blood Blood Culture - Preliminary Post-procedural complaints: none Patient Feedback: Patient satisfied with anesthetic care.
[2025-06-04] MEDS: SODIUM CHLORIDE 0.9% IV 1,000 ML 999 ML IV CONT (14:48)
--- NOTE | 2025-06-04 16:24 | PC.NURSE ---
Patient just back from hemodialysis. Oriented at this time. When asked if she tolerated dialysis? She answered yes. Affect remains very flat at this time.
--- NOTE | 2025-06-04 17:49 | WPDCNPSYCH ---
Assessment and Plan Assessment and plan (1) Altered mental status: Qualifiers: Altered mental status type: unspecified Qualified Code(s): R41.82 - Altered mental status, unspecified Code(s): R41.82 - Altered mental status, unspecified Status: Acute (2) Generalized anxiety disorder: Code(s): F41.1 - Generalized anxiety disorder Status: Acute (3) Depression: Code(s): F32.A - Depression, unspecified Status: Acute Plan Patient seen and examined at bedside today, significant other not available for collateral information. Psychiatric history significant for generalized anxiety disorder and depression, which are managed by PCP on outpatient basis with duloxetine and buspar- both which have been held this admission. Unclear of her mental functioning at baseline, but suspect she is altered at the moment given her lack of participation and did not appear to have logical thought processing during interview this evening. No notable agitation was reported or observed today. Recommend to continue to hold duloxetine, buspar and continue to assess for improvement in mental status. Agree that altered status exacerbated by current uremia. Continue to monitor for improvement in mental status with serial labs, continued dialysis treatment. Please do not hesitate to reconsult psychiatry with questions or change in patient status. HPI Data of Consult Date/Time: 06/04/25 17:49 Requesting Physician: Melvin Diamond MD Primary Care Provider: Mateo Alfaro MD Consult Narrative Narrative: Aggie Donald is a 75 year old female admitted on 06/01/2025 for acute on chronic renal failure. Psychiatry was consulted for evaluation of decreased/altered mental status. Additionally, it appears she has a psychiatry history of anxiety and depression, which she is prescribed duloxetine 60mg daily and buspar 10mg twice daily for outpatient management. Upon interview this evening, she is minimally interactive. She is able to answer simple yes or no questions and maintains appropriate eye contact. She does endorse the documented history of anxiety and depression, which she takes medication at home for prescribed by her primary care provider, does not follow with an outpatient psychiatrist or counselor/therapist. She denies an increase in depression or anxiety since admission to the hospital. Denies feeling suicidal or admitting to thoughts of wanting to end her own life. She is rather slow to answer questions with a delayed thought process and appears to not answer the questions that are more complex or she is unure of. Review of Systems Psychiatric: Psychiatric: Reports confusion and Reports difficulty concentrating PMFSH Past Medical History Medical History (Updated 06/04/25 @ 17:59 by Charlene Albright APRN) Generalized anxiety disorder Depression Hyperlipidemia Back pain Eczema Osteoarthritis Venous insufficiency (chronic) (peripheral) DM2 (diabetes mellitus, type 2) Non-ST elevated myocardial infarction (non-STEMI) Osteoarthritis of hands, bilateral Bilateral primary osteoarthritis of knee Essential (primary) hypertension Fibromyalgia Arthralgia of multiple joints Surgical History Surgical History History of tubal ligation (~1989) Family History Family History Grandparent Acute myocardial infarction Cerebrovascular accident Heart disease Mother Colon polyp Diabetes mellitus Pancreatic adenocarcinoma Other Depression Hypertension Neuralgia of both lower extremities Social History Social History Social History: Surrogate medical decision maker: Shravan Ramsay, spouse. Code status: Full code. Smoking status: Former smoker Second hand tobacco smoke exposure: No Alcohol intake: never Substance use: never Substance use type: former substance user and marijuana Last use: 03/26/25 Do You Feel Safe in your Home?: Yes Lack of Transportation: No Lack of Food: Never True Current Housing: I Have Housing Concerned About Future Housing: No Difficulty Paying Gas/Electric Bills: No Difficulty Paying for Meds: No Currently Unemployed: No Education: Associate Degree Difficulty w/ Childcare or Family Care: No Living arrangements: with family Occupation/Education: retired Spiritual care concerns: No Agree to blood products: Yes Meds Home Medications and Allergies Home Medications ?Medication ?Instructions ?Recorded ?Confirmed ?Type lancet with blood glucose test #300 ea 01/29/23 06/01/25 Rx strips and pen needles combo pack blood sugar diagnostic (OneTouch #300 ea 05/20/23 06/01/25 Rx Verio test strips) flash glucose scanning reader #1 ea 05/20/23 06/01/25 Rx (FreeStyle Yulia 2 [place]) ammonium lactate 12 % lotion 1 applic topical DAILY #225 grams 10/26/24 06/01/25 Rx (AmLactin) clonidine HCl 0.3 mg tablet See Rx Instructions .Route 12/27/24 06/01/25 Rx .COMPLEX #60 tabs buspirone 10 mg tablet 10 mg PO BID #60 tabs 02/06/25 06/01/25 Rx gabapentin 300 mg capsule 300 mg PO DAILY #90 caps 03/03/25 06/01/25 Rx baclofen 10 mg tablet 10 mg PO TID muscle spasm 03/26/25 06/01/25 History metoprolol tartrate 100 mg tablet See Rx Instructions .Route 03/29/25 06/01/25 Rx .COMPLEX #180 tabs atorvastatin 20 mg tablet See Rx Instructions .Route 04/07/25 06/01/25 Rx .COMPLEX #90 tabs duloxetine 60 mg capsule,delayed See Rx Instructions .Route 04/07/25 06/01/25 Rx release .COMPLEX #90 ea flash glucose sensor (FreeStyle #2 ea 04/12/25 06/01/25 Rx Yulia 2 Sensor kit) spironolactone 25 mg tablet See Rx Instructions .Route 04/28/25 06/01/25 Rx .COMPLEX #30 tabs hydrocodone 5 mg-acetaminophen 325 1 tablet PO Q6H PRN pain #20 tabs 04/30/25 06/01/25 Rx mg tablet pantoprazole 40 mg tablet,delayed 40 mg PO DAILY #60 tabs 05/27/25 06/01/25 Rx release bisacodyl 10 mg rectal suppository 10 mg RECTAL DAILY PRN constipation 06/01/25 06/01/25 History cholecalciferol (vitamin D3) 25 1,000 unit PO DAILY 06/01/25 06/01/25 History mcg (1,000 unit) tablet dapagliflozin propanediol 10 mg 10 mg PO DAILY 06/01/25 06/01/25 History tablet (Farxiga) fenofibrate 50 mg capsule 50 mg PO DAILY 06/01/25 06/01/25 History magnesium citrate (Citroma oral 296 ml PO DAILY PRN constipation 06/01/25 06/01/25 History solution) magnesium hydroxide 400 mg/5 mL 30 ml PO HS PRN constipation 06/01/25 06/01/25 History oral suspension metformin 500 mg tablet,extended 1,000 mg PO BID 06/01/25 06/01/25 History release 24 hr pioglitazone 15 mg tablet 15 mg PO QAM 06/01/25 06/01/25 History semaglutide 7 mg tablet (Rybelsus) See Rx Instructions .Route 06/03/25 Rx .COMPLEX #30 tabs Allergies Allergy/AdvReac Type Severity Reaction Status Date / Time amoxicillin (From Augmentin) Allergy Unknown Verified 06/03/25 15:06 clavulanic acid (From Allergy Unknown Verified 06/03/25 15:06 Augmentin) Vital Signs Vital Signs - 24 hr 06/03/25 18:00 06/03/25 18:16 06/03/25 18:31 Temperature Pulse Rate 127 H 126 H 125 H Respiratory Rate Blood Pressure 177/100 H 160/90 H 159/93 H Pulse Oximetry Oxygen Delivery Fraction of Inspired Oxygen 06/03/25 18:45 06/03/25 19:00 06/03/25 19:15 Temperature Pulse Rate 128 H 127 H 126 H Respiratory Rate Blood Pressure 93/64 L 145/87 H 160/95 H Pulse Oximetry Oxygen Delivery Fraction of Inspired Oxygen 06/03/25 19:30 06/03/25 19:44 06/03/25 19:49 Temperature 97.4 F L Pulse Rate 129 H 124 H 124 H Respiratory Rate 16 Blood Pressure 178/100 H 164/92 H 182/92 H Pulse Oximetry 96 Oxygen Delivery Fraction of Inspired Oxygen 06/03/25 20:44 06/03/25 22:00 06/04/25 00:00 Temperature 97.6 F 98.2 F Pulse Rate 125 H 131 H 134 H Respiratory Rate 15 19 Blood Pressure 160/86 H 173/84 H Pulse Oximetry 98 97 Oxygen Delivery Fraction of Inspired Oxygen 06/04/25 00:00 06/04/25 00:19 06/04/25 02:00 Temperature Pulse Rate 132 H 135 H 111 H Respiratory Rate Blood Pressure Pulse Oximetry Oxygen Delivery Fraction of Inspired Oxygen 06/04/25 04:00 06/04/25 04:00 06/04/25 06:00 Temperature 98.0 F Pulse Rate 115 H 109 H 118 H Respiratory Rate 18 Blood Pressure 185/87 H Pulse Oximetry 96 Oxygen Delivery Fraction of Inspired Oxygen 06/04/25 08:00 06/04/25 08:00 06/04/25 08:00 Temperature 98.4 F Pulse Rate 117 H 121 H 121 H Respiratory Rate 22 H 22 H Blood Pressure 189/95 H Pulse Oximetry 98 98 Oxygen Delivery Room Air Fraction of Inspired Oxygen 96 06/04/25 12:00 06/04/25 12:00 06/04/25 12:00 Temperature 97.7 F Pulse Rate 121 H 121 H 74 Respiratory Rate 18 20 Blood Pressure 162/66 H Pulse Oximetry 97 100 Oxygen Delivery Room Air Fraction of Inspired Oxygen 96 06/04/25 13:23 06/04/25 13:30 06/04/25 13:45 Temperature 97.6 F Pulse Rate 122 H 120 H 136 H Respiratory Rate 18 Blood Pressure 187/94 H 163/95 H 162/87 H Pulse Oximetry 97 Oxygen Delivery Fraction of Inspired Oxygen 06/04/25 14:00 06/04/25 14:15 06/04/25 14:30 Temperature Pulse Rate 133 H 136 H 129 H Respiratory Rate Blood Pressure 110/67 109/59 L 116/64 Pulse Oximetry Oxygen Delivery Fraction of Inspired Oxygen 06/04/25 14:45 06/04/25 15:00 06/04/25 15:15 Temperature Pulse Rate 128 H 126 H 132 H Respiratory Rate Blood Pressure 121/65 103/65 114/62 Pulse Oximetry Oxygen Delivery Fraction of Inspired Oxygen 06/04/25 15:30 06/04/25 15:45 06/04/25 16:00 Temperature Pulse Rate 132 H 121 H 129 H Respiratory Rate Blood Pressure 108/56 L 108/58 L 141/76 H Pulse Oximetry Oxygen Delivery Fraction of Inspired Oxygen 06/04/25 16:05 Temperature 97.8 F Pulse Rate 129 H Respiratory Rate 18 Blood Pressure 141/76 H Pulse Oximetry 96 Oxygen Delivery Fraction of Inspired Oxygen Exam Psych: Appearance: grossly normal Mental Status: other (slowed cognition ) Speech and movement: Slowed speech present (Psych) and Slowed movement present (Neuro) Affect: Indifferent affect present and Blunted affect present Attitude: Other attitude/behavior findings present (Psych) (indifferent ) Thought process: Impoverished thought process present Thought content: Yes Normal thought content present Insight: Limited insight present (Psych) Judgement: Limited judgement present (Psych) Results Labs 06/04/25 04:03 06/04/25 04:03 Labs: Short CBC 06/04/25 Range/Units 04:03 WBC 22.0 H (4.5-10.0) K/mm3 Hgb 12.2 (12.0-15.0) g/dL Hct 37.2 (37.0-47.0) % Plt Count 446 H (150-375) k/mm3 BMP 06/04/25 04:03 Sodium 138 Potassium 4.5 Chloride 100 Carbon Dioxide 17 L BUN 63 H D Creatinine 3.73 H Glucose 149 H Calcium 9.2 Liver Function 06/04/25 Range/Units 04:03 Total Bilirubin 0.7 (0.2-1.3) mg/dL AST 23 (14-36) U/L ALT 9 (6-35) U/L Alkaline Phosphatase 92 (38-126) U/L Albumin 4.3 (3.5-5.1) g/dL
--- NOTE | 2025-06-04 18:55 | PC.NURSE ---
Patient called this RN to the room because she states I don't know what to do. This RN asked the patient what her wishes are. She states I am ready to . Patient asked this RN to call her significant other for her. This RN did infact call Shravan the patient's significant other and expressed to him the patient's wishes. He states that he will come to the hospital in the morning to talk to her.
[2025-06-05] VITALS (27 sets, daily range): BP systolic 93–162; BP diastolic 55–88; PULSE 0–136; RESP 18–20; TEMP 36.1–37.4; O2SAT 93–98
[2025-06-05] MEDS: METOPROLOL TARTRATE INJ 5 MG/5 ML VIAL IV PUSH ×2 (01:29→21:15)
[2025-06-05 05:08] LABS: Hep B Core Ab, Total Negative (Negative)
[2025-06-05 05:22] LABS: Hematocrit 40.2 % (37.0-47.0); Hemoglobin 12.7 g/dL (12.0-15.0); Immature Granulocyte Percent A 1.2 % (0-0.5); Lymphocytes Absolute Auto 2.83 K/mm3 (0.9-3.2); Mean Corpuscular HGB Conc 31.6 g/dl (32-36); Mean Corpuscular Hemoglobin 28.9 pg (26-34); Mean Corpuscular Volume 91.4 fl (80-100); Nucleated Red Blood Cells Absolute Auto 0.000 K/mm3 (0.0-0.012); Nucleated Red Blood Cells Perc 0.0 % (0.0-0.2); Platelet Count Result 393 k/mm3 (150-375); Red Blood Count 4.40 M/mm3 (4.2-5.4); White Blood Count 28.3 K/mm3 (4.5-10.0)
[2025-06-05] MEDS: metroNIDAZOLE 500 MG/ISO 100ML 500 MG/100 ML BAG 100 MG IVPB ×3 (05:35→21:16)
[2025-06-05 05:44] LABS: Alanine Aminotransferase 12 U/L (6-35); Albumin Level 4.1 g/dL (3.5-5.1); Alkaline Phosphatase 92 U/L (38-126); Anion Gap 18 mmol/L (4-12); Aspartate Amino Transferase 34 U/L (14-36); Bilirubin,Total 0.7 mg/dL (0.2-1.3); Blood Urea Nitrogen 53 mg/dL (7-17); Calcium 9.2 mg/dL (8.4-10.2); Carbon Dioxide 19 mmol/L (22-30); Chloride 94 mmol/L (98-107); Estimated CRCL calculation 18 ml/min; Estimated Glomerular Filt Rate 21; Glucose 152 mg/dL (65-110); Magnesium 2.4 mg/dL (1.6-2.3); Potassium 3.9 mmol/L (3.4-5.0); Sodium 131 mmol/L (137-145); Total Protein 7.9 g/dL (6.3-8.2)
[2025-06-05] MEDS: ALTEPLASE 2 MG VIAL (CATHFLO) IV PUSH ×3 (09:26→09:27)
--- NOTE | 2025-06-05 10:28 | P.PNIM_ITS ---
Progress Note: A&P Assessment and Plan (1) RENEA (acute kidney injury): Code(s): N17.9 - Acute kidney failure, unspecified Status: Resolved Assessment and Plan: -the patient has acute on chronic renal failure with uremia -patient had a renal ultrasound on 04/27/2025: Trabeculated bladder appearance with thickening. Focal thickening more prominent superiorly on the right. Cannot exclude transitional cell carcinoma possibly superimposed on cystitis. Recommend urology consultation. -urology saw the patient on 04/27/2025 and noted no acute urological surgical intervention is indicated. It was noted that they will follow her peripherally. -continue with IV fluid -monitor BMP -today BUN is 53 and creatinine 2.28. Her BUN on 04/30/2025 was 28 with a creatinine 1.02. Continue dialysis Nephrology following (2) DM2 (diabetes mellitus, type 2): Qualifiers: Diabetes mellitus [facility] insulin use: without intermediate designer use Diabetes mellitus complication status: with hyperglycemia Qualified Code(s): E11.65 - Type 2 diabetes mellitus with hyperglycemia Code(s): E11.9 - Type 2 diabetes mellitus without complications Status: Chronic Assessment and Plan: -I am holding her p.o. medication. -sliding scale insulin -last A1c a couple days ago was 6.0. -her blood sugar was 169. (3) Essential (primary) hypertension: Code(s): I10 - Essential (primary) hypertension Status: Chronic Assessment and Plan: -blood pressure 161/80. -continue with clonidine if blood pressure allows -continue with metoprolol F blood pressure allow (4) Congestive heart failure: Code(s): I50.9 - Heart failure, unspecified Status: Chronic Assessment and Plan: -continue with metoprolol -[place] is currently on hold due to her acute renal failure. -last echo performed was in 2022. -echo showed left ventricular hypertrophy with hyperdynamic systolic -spironolactone on hold at this time. (5) Hyperlipidemia: Code(s): E78.5 - Hyperlipidemia, unspecified Status: Acute Assessment and Plan: -continue without atorvastatin and monitor liver enzymes (6) Generalized anxiety disorder: Code(s): F41.1 - Generalized anxiety disorder Status: Acute (7) Hyperkalemia: Code(s): E87.5 - Hyperkalemia Status: Acute Assessment and Plan: -most likely secondary to the acute kidney injury -she has also been on spironolactone which is now on hold. -the patient was given Lokelma in the emergency room. -daily BMPs. -her potassium was 5.3. Plan AMS from uremia, resolving improving with dialysis Pain medication and muscle relaxers held at this time due to her acute altered mental status. monitor Colitis CT AP reviewed continue Rocephin and Flagyl Leukocytosis improving monitor Cystitis per CT AP urine culture pending on Rocephin monitor DVT prophylaxis on Sq heparin PT/OT eval for discharge planning Subjective Date/time seen: 06/05/25 10:28 Interval history: Comfortable at bedside Continue Dialysis Review of Systems Review of Systems: ROS unobtainable: Yes unobtainable due to medical condition and unobtainable due to mental status ENT: Reports Normal hearing present Neurologic: Reports Normal hearing present Exam Narrative: General: lethargic HEENT: Normocephalic. Atraumatic. Extraocular movement intact. Sclera clear and anicteric. No facial asymmetry. Chest: Lungs are coarse to auscultation bilaterally. CV: Heart was regular rate and rhythm. Abd: Abdomen was soft. Nontender. Nondistended. Positive bowel sounds. Ext: No clubbing, cyanosis, or edema. DP pulses bilaterally. Neuro: Patient is alert to voice and upon return able AOx1 (person), following some commands. Symmetrical certified nurses aide strength and wiggles toes. Skin: Warm and dry. No rashes or ulcers noted. Const: General: cooperative, no acute distress, well developed, awake, Physically active, average body habitus and well nourished Nutritional Appearance: average body habitus and well nourished Orientati on/consciousness: oriented to person, oriented to place, oriented to time and patient oriented x3 HENMT: Head: normal to inspection, No palpable skull fracture present, normocephalic and atraumatic Ears: hearing grossly normal bilaterally Eyes: General: appearance normal, both eyes and all related structures Alignment and Position: alignment normal Periorbital: periorbital findings normal Eyelids: eyelids normal Pupils: Equal, round and reactive pupils present Neck: Neck: normal visual inspection and full ROM Chest: Chest palpation & inspection: normal inspection of the chest Resp: Effort & Inspection: normal respiratory effort Auscultation: clear to auscultation bilaterally Cardio: Palpation: normal PMI Rate: regular rate Rhythm: regular rhythm Heart sounds: S1 normal heart sound present and S2 normal heart sound present Peripheral pulses: Peripheral pulses 2+ throughout GI: Inspection: normal to inspection Auscultation: normal bowel sounds Rectal Exam: deferred Skin: General skin exam: normal color Lesions: no lesions Rashes: no rashes Trauma: no lacerations or abrasions Wounds: no wounds Hair: normal Nails: normal Neuro: General: oriented to person, oriented to place, oriented to time and patient oriented x3 Cranial nerves: Yes Equal, round and reactive pupils present and Yes Normal hearing present Cognition (Neuro): normal cognition Speech: normal speech Motor exam (neuro): 5/5 motor strength present throughout Sensory Exam: normal sensation Extrem: General: normal to inspection Right upper extremity: normal to inspection and shoulder/upper arm Left upper extremity: normal to inspection and shoulder/upper arm Right lower extremity: normal to inspection Left lower extremity: normal to inspection Psych: Mental Status: other Affect: normal affect Attitude: cooperative Objective Data Vital Signs Vital Signs: Vital Signs - 24 hr 06/04/25 12:00 06/04/25 12:00 06/04/25 12:00 Temperature 97.7 F Pulse Rate 121 H 121 H 74 Respiratory Rate 18 20 Blood Pressure 162/66 H Pulse Oximetry 97 100 Oxygen Delivery Room Air Fraction of Inspired Oxygen 96 06/04/25 13:23 06/04/25 13:30 06/04/25 13:45 Temperature 97.6 F Pulse Rate 122 H 120 H 136 H Respiratory Rate 18 Blood Pressure 187/94 H 163/95 H 162/87 H Pulse Oximetry 97 Oxygen Delivery Fraction of Inspired Oxygen 06/04/25 14:00 06/04/25 14:15 06/04/25 14:30 Temperature Pulse Rate 133 H 136 H 129 H Respiratory Rate Blood Pressure 110/67 109/59 L 116/64 Pulse Oximetry Oxygen Delivery Fraction of Inspired Oxygen 06/04/25 14:45 06/04/25 15:00 06/04/25 15:15 Temperature Pulse Rate 128 H 126 H 132 H Respiratory Rate Blood Pressure 121/65 103/65 114/62 Pulse Oximetry Oxygen Delivery Fraction of Inspired Oxygen 06/04/25 15:30 06/04/25 15:45 06/04/25 16:00 Temperature Pulse Rate 132 H 121 H 129 H Respiratory Rate Blood Pressure 108/56 L 108/58 L 141/76 H Pulse Oximetry Oxygen Delivery Fraction of Inspired Oxygen 06/04/25 16:05 06/04/25 18:00 06/04/25 20:00 Temperature 97.8 F 98.2 F Pulse Rate 129 H 129 H 138 H Respiratory Rate 18 21 H Blood Pressure 141/76 H 113/63 Pulse Oximetry 96 97 Oxygen Delivery Fraction of Inspired Oxygen 06/04/25 23:44 06/05/25 01:29 06/05/25 01:56 Temperature 99.5 F 98.2 F Pulse Rate 130 H 133 H 136 H Respiratory Rate 21 H 20 Blood Pressure 127/73 126/71 Pulse Oximetry 96 95 Oxygen Delivery Fraction of Inspired Oxygen 06/05/25 04:09 06/05/25 04:25 06/05/25 08:00 Temperature 97 F L 97.4 F L Pulse Rate 60 110 H 119 H Respiratory Rate 20 18 Blood Pressure 137/68 141/65 H Pulse Oximetry 93 97 Oxygen Delivery Fraction of Inspired Oxygen 06/05/25 08:16 06/05/25 08:22 06/05/25 08:30 Temperature 97.8 F Pulse Rate 120 H 118 H 119 H Respiratory Rate 18 Blood Pressure 156/78 H 143/76 H 142/78 H Pulse Oximetry 97 Oxygen Delivery Fraction of Inspired Oxygen 06/05/25 08:45 06/05/25 09:00 Temperature Pulse Rate 127 H 132 H Respiratory Rate Blood Pressure 102/55 L 93/56 L Pulse Oximetry Oxygen Delivery Fraction of Inspired Oxygen Intake/Output Intake/Output: Intake & Output 06/02/25 06/03/25 06/04/25 06/05/25 23:59 23:59 23:59 23:59 Intake Total 440 610 535 450 Output Total 0 1592 2325 250 Balance 440 -442 -7999 200 Meds/Results Medications: Active Medications Generic Name Dose Route Start Last Admin Trade Name Freq PRN Reason Stop Dose Admin Acetaminophen 650 mg 06/03/25 20:21 Acetaminophen 325 Mg Tablet PO Q6H PRN Mild Pain (1-3) or Fever Hydrocodone Bitart/Acetaminophen 1 tab 06/03/25 20:21 06/04/25 11:31 Hydrocodone/Acetaminophen (*Crx) 5-325 Mg Tablet PO 1 tab Q4H PRN Administration Pain Rated 4-6 Alteplase, Recombinant 2 mg 06/05/25 09:03 06/05/25 09:27 Alteplase 2 Mg Vial (Cathflo) IV PUSH 2 mg ONCE PRN Administration Line Occlusion Alteplase, Recombinant 2 mg 06/05/25 09:04 06/05/25 09:27 Alteplase 2 Mg Vial (Cathflo) IV PUSH 2 mg ONCE PRN Administration Line Occlusion Atorvastatin Calcium 20 mg 06/02/25 09:00 06/02/25 10:07 Atorvastatin 20 Mg Tablet BY MOUTH Not Given On Hold: 06/02/25 14:42 DAILY [facility] Bisacodyl 10 mg 06/02/25 03:32 Bisacodyl 10 Mg Suppository RECTAL DAILY PRN Constipation Clonidine HCl 0.3 mg 06/02/25 09:00 06/02/25 11:58 Clonidine Hcl 0.1 Mg Tablet BY MOUTH Not Given On Hold: 06/02/25 14:42 BID [facility] Dextrose 12.5 gm 06/02/25 03:31 Dextrose 50% 25 Gm/50 Ml Syringe IV PUSH PRN PRN Hypoglycemia Protocol Gabapentin 300 mg 06/02/25 09:00 06/02/25 10:07 Gabapentin 300 Mg Capsule PO Not Given On Hold: 06/02/25 14:42 DAILY [facility] Glucagon 1 mg 06/02/25 03:31 Glucagon For Inj 1 Mg Vial IM PRN PRN Hypoglycemia Protocol Glucose 15 gm 06/02/25 03:31 Glucose Oral Gel 15 Gm Of Glucse In 37.5 Gm Tube PO PRN PRN Hypoglycemia Protocol Heparin Sodium (Porcine) 5,000 units 06/02/25 22:00 06/05/25 05:35 Heparin Sodium 5,000 Units/Ml Vial SUB-Q 5,000 units Q8HR [facility] Administration Hydralazine HCl 25 mg 06/04/25 09:20 06/05/25 05:36 Hydralazine Hcl 25 Mg Tablet PO 25 mg Q6HR [facility] Administration Sodium Chloride 1,000 mls @ 75 mls/hr 06/02/25 03:30 06/02/25 04:14 Normal Saline Iv IV CONT 75 mls/hr On Hold: 06/02/25 10:04 .[id number] [facility] Administration Dextrose 1,000 mls @ 100 mls/hr 06/02/25 03:31 Dextrose 5% 1,000 Ml IVPB PRN PRN Hypoglycemia Protocol Metronidazole 500 mg in 100 mls @ 100 mls/hr 06/02/25 15:30 06/05/25 06:35 Flagyl 500 Mg/Iso Soln 100 Ml IVPB Infused Q8HR [facility] Infusion Albumin Human 50 mls @ 999 mls/hr 06/03/25 08:37 Albutein IVPB 07/03/25 08:36 Q10M PRN HYPOTENSION Ceftriaxone Sodium 1 gm/ 50 mls @ 100 mls/hr 06/03/25 09:00 06/04/25 09:38 Sodium Chloride IVPB Not Given Q24H [facility] Insulin Aspart 2 - 5 units 06/02/25 08:00 06/05/25 08:03 Insulin Aspart (*Bkc) 100 Units/Ml SUB-Q Not Given TIDWM [facility] Protocol Isosorbide Mononitrate 30 mg 06/04/25 09:20 06/04/25 09:38 Isosorbide Mononitrate 30 Mg Tab.Er.24h PO Not Given QAM [facility] Metoprolol Tartrate 100 mg 06/02/25 09:00 06/02/25 10:07 Metoprolol Tartrate 50 Mg Tab BY MOUTH Not Given On Hold: 06/02/25 14:42 Q12HR [facility] Metoprolol Tartrate 5 mg 06/02/25 09:43 06/05/25 01:29 Metoprolol Tartrate Inj 5 Mg/5 Ml Vial IV PUSH 5 mg Q6H PRN Administration tachycardia >100 Pantoprazole Sodium 40 mg 06/02/25 09:00 06/02/25 10:07 Pantoprazole 40 Mg Tablet PO Not Given On Hold: 06/02/25 14:42 DAILY [facility] Radiology Results: ITS Impressions Chest/Abdomen/Pelvis CT 06/01/25 17:56 IMPRESSION: CHEST- 1. No acute findings. ABDOMEN/PELVIS- 1. Cystitis not excluded. 2. Mild colitis not excluded. 3. Otherwise no acute abnormality given noncontrast technique. Head CT 06/01/25 19:30 IMPRESSION: 1. No acute intracranial findings or change from prior exam. Chest X-Ray 06/03/25 16:52 Impression: Line placement as above. No pneumothorax Labs Labs: Laboratory Results - last 24 hr 06/04/25 06/04/25 06/04/25 04:12 11:58 20:32 WBC RBC Hgb Hct MCV MCH MCHC RDW Plt Count MPV Immature Gran % (Auto) Neut % (Auto) Lymph % (Auto) [place] % (Auto) Eos % (Auto) Baso % (Auto) Lymph # (Auto) [place] # (Auto) Eos # (Auto) Baso # (Auto) Abs Immat Gran (auto) Absolute Neuts (auto) Absolute Nucleated RBC Nucleated RBC % Sodium Potassium Chloride Carbon Dioxide Anion Gap BUN Creatinine Estim Creat Clear Calc Estimated GFR Glucose POC Capillary Glucose 127 H 184 H Lactic Acid Calcium Phosphorus Magnesium Total Bilirubin AST ALT Alkaline Phosphatase Total Protein Albumin Hep B Core Total Ab Negative 06/05/25 06/05/25 05:10 08:03 WBC 28.3 H RBC 4.40 Hgb 12.7 Hct 40.2 MCV 91.4 MCH 28.9 MCHC 31.6 L RDW 14.0 Plt Count 393 H MPV 10.3 Immature Gran % (Auto) 1.2 H Neut % (Auto) 76.6 H Lymph % (Auto) 10.0 L [place] % (Auto) 11.7 H Eos % (Auto) 0.0 Baso % (Auto) 0.5 Lymph # (Auto) 2.83 [place] # (Auto) 3.3 H Eos # (Auto) 0.0 Baso # (Auto) 0.1 Abs Immat Gran (auto) 0.33 H Absolute Neuts (auto) 21.7 H Absolute Nucleated RBC 0.000 Nucleated RBC % 0.0 Sodium 131 L Potassium 3.9 Chloride 94 L Carbon Dioxide 19 L Anion Gap 18 H BUN 53 H D Creatinine 2.28 H Estim Creat Clear Calc 18 Estimated GFR 21 L Glucose 152 H POC Capillary Glucose 196 H Lactic Acid 1.4 Calcium 9.2 Phosphorus 5.3 H Magnesium 2.4 H Total Bilirubin 0.7 AST 34 ALT 12 Alkaline Phosphatase 92 Total Protein 7.9 Albumin 4.1 Hep B Core Total Ab Quality VTE Prophylaxis VTE prophylaxis: pharmacologic ordered
--- NOTE | 2025-06-05 11:15 | P.PNNP_ITS ---
Progress Note: A&P Assessment and Plan (1) Acute kidney injury: Code(s): N17.9 - Acute kidney failure, unspecified Status: Acute Assessment and Plan: * as noted by admission creatinine (6.31mg/dl) * creatinine 1.02mg/dl on discharge on 04/30/25 * etiology not clear -- infection/sepsis/SIRS, prerenal factors, other(?) * evaluation noted: * renal ultrasound a month ago noted * CT of A/P on this admission with no hydronephrosis * urine electrolytes prerenal (by FeUrea) * urine eosinophils negative * nephrotic range proteinuria (question validity since from starr catheter) * CPK low * questionable infection by UA * reasonable urine output noted * concern that altered mental status/encephalopathy may be due to uremia (BUN quite elevated)... * initiated on [employer] on 06/03 * HD yesterday * HD today * follow trend of repeat labs and UOP (2) Hyperkalemia: Code(s): E87.5 - Hyperkalemia Status: Acute Assessment and Plan: * stable * presumably due to JOSHUA in the context of spironolactone use and associated acidosis * s/p medical management * follow trend of K+ (3) Altered mental status: Qualifiers: Altered mental status type: unspecified Qualified Code(s): R41.82 - Altered mental status, unspecified Code(s): R41.82 - Altered mental status, unspecified Status: Acute Assessment and Plan: * slow improvement * apparently normal mentation at baseline (as noted by progress notes from last hospitalization) * possibly secondary to uremia versus underlying infecton (given elevated WBC) versus other(?) * follow mentation (4) Leukocytosis: Code(s): D72.829 - Elevated white blood cell count, unspecified Status: Acute Assessment and Plan: * concern is for possible infection/sepsis * no clear source at this time * follow culture data * Infectious Disease following * on antibiotics (5) Metabolic acidosis: Code(s): E87.20 - Acidosis, unspecified Status: Acute Assessment and Plan: * due to Joshua/ARF * initial lactic acidosis on admission likely contributing as well * lactic acid has normalized * resolving with dialysis * follow trend of CO2 (6) Congestive heart failure: Code(s): I50.9 - Heart failure, unspecified Status: Chronic Assessment and Plan: * reported history * appears compensated at this time * Echo (on 06/02) noted: * left ventricular systolic function is hyperdynamic, estimated at >70. There is mild concentric increased * left ventricular diastolic function is grade I diastolic dysfunction * mild aortic valve sclerosis * mitral valve annulus is severely calcified * mild tricuspid valve regurgitation * follow volume status (7) Essential (primary) hypertension: Code(s): I10 - Essential (primary) hypertension Status: Chronic Assessment and Plan: * running a bit on the high side * restart home BP medications gradually * holding spironolactone * follow trend of hemodynamics (8) DM2 (diabetes mellitus, type 2): Qualifiers: Diabetes mellitus halfway insulin use: without halfway use Diabetes mellitus complication status: with hyperglycemia Qualified Code(s): E11.65 - Type 2 diabetes mellitus with hyperglycemia Code(s): E11.9 - Type 2 diabetes mellitus without complications Status: Chronic Assessment and Plan: * follow accu-cheks * glycemic control per hospitalist Will continue to follow. L Subjective Date/time seen: 06/05/25 11:15 Interval history: Follow-up for acute kidney injury/acute renal failure. Mentation continues to improve with ongoing therapy/interventions; tolerated dialysis treatment yesterday and tolerating dialysis treatment at the time of my visit (seen on HD at 11:05am) -- some issues with HD catheter flow earlier but appears to have resolved with use a Activase; continues to make good urine output at this time; no apparent distress noted when seen. Exam 2 Narrative: General: elderly but WD/WN female in NAD Heart: normal S1 and S2; no rub Lungs: clear anteriorly Abdomen: soft, nontender, nondistended, positive bowel sounds Extremities: no cyanosis or clubbing; no edema Skin: no rash Objective Data Vital Signs Vital Signs: Vital Signs Temp Pulse Resp BP Pulse Ox 06/05/25 11:15 128 H 156/74 H 06/05/25 11:00 122 H 156/86 H 06/05/25 10:45 122 H 158/88 H 06/05/25 10:30 114 H 154/76 H 06/05/25 10:15 122 H 151/84 H 06/05/25 10:00 117 H 162/85 H 06/05/25 09:50 122 H 136/61 06/05/25 09:00 132 H 93/56 L 06/05/25 08:45 127 H 102/55 L 06/05/25 08:30 119 H 142/78 H 06/05/25 08:22 118 H 143/76 H 06/05/25 08:16 97.8 F 120 H 18 156/78 H 97 06/05/25 08:00 97.4 F L 119 H 18 141/65 H 97 06/05/25 04:25 97 F L 110 H 20 137/68 93 06/05/25 04:09 60 06/05/25 01:56 98.2 F 136 H 20 126/71 95 06/05/25 01:29 133 H 06/04/25 23:44 99.5 F 130 H 21 H 127/73 96 06/04/25 20:00 98.2 F 138 H 21 H 113/63 97 06/04/25 18:00 129 H 06/04/25 16:05 97.8 F 129 H 18 141/76 H 96 06/04/25 16:00 129 H 141/76 H 06/04/25 15:45 121 H 108/58 L 06/04/25 15:30 132 H 108/56 L 06/04/25 15:15 132 H 114/62 06/04/25 15:00 126 H 103/65 06/04/25 14:45 128 H 121/65 Intake/Output Intake/Output: Intake & Output 06/02/25 06/03/25 06/04/25 06/05/25 23:59 23:59 23:59 23:59 Intake Total 440 660 535 620 Output Total 0 1592 2325 250 Balance 440 -460 -5666 370 Meds/Results Medications: Active Medications Generic Name Dose Route Start Last Admin Trade Name Freq PRN Reason Stop Dose Admin Acetaminophen 650 mg 06/03/25 20:21 Acetaminophen 325 Mg Tablet PO Q6H PRN Mild Pain (1-3) or Fever Hydrocodone Bitart/Acetaminophen 1 tab 06/03/25 20:21 06/04/25 11:31 Hydrocodone/Acetaminophen (*Crx) 5-325 Mg Tablet PO 1 tab Q4H PRN Administration Pain Rated 4-6 Alteplase, Recombinant 2 mg 06/05/25 09:03 06/05/25 09:27 Alteplase 2 Mg Vial (Cathflo) IV PUSH 2 mg ONCE PRN Administration Line Occlusion Alteplase, Recombinant 2 mg 06/05/25 09:04 06/05/25 09:27 Alteplase 2 Mg Vial (Cathflo) IV PUSH 2 mg ONCE PRN Administration Line Occlusion Atorvastatin Calcium 20 mg 06/02/25 09:00 06/02/25 10:07 Atorvastatin 20 Mg Tablet BY MOUTH Not Given On Hold: 06/02/25 14:42 DAILY [facility] Bisacodyl 10 mg 06/02/25 03:32 Bisacodyl 10 Mg Suppository RECTAL DAILY PRN Constipation Clonidine HCl 0.3 mg 06/02/25 09:00 06/02/25 11:58 Clonidine Hcl 0.1 Mg Tablet BY MOUTH Not Given On Hold: 06/02/25 14:42 BID [facility] Dextrose 12.5 gm 06/02/25 03:31 Dextrose 50% 25 Gm/50 Ml Syringe IV PUSH PRN PRN Hypoglycemia Protocol Gabapentin 300 mg 06/02/25 09:00 06/02/25 10:07 Gabapentin 300 Mg Capsule PO Not Given On Hold: 06/02/25 14:42 DAILY [facility] Glucagon 1 mg 06/02/25 03:31 Glucagon For Inj 1 Mg Vial IM PRN PRN Hypoglycemia Protocol Glucose 15 gm 06/02/25 03:31 Glucose Oral Gel 15 Gm Of Glucse In 37.5 Gm Tube PO PRN PRN Hypoglycemia Protocol Heparin Sodium (Porcine) 5,000 units 06/02/25 22:00 06/05/25 05:35 Heparin Sodium 5,000 Units/Ml Vial SUB-Q 5,000 units Q8HR [facility] Administration Hydralazine HCl 25 mg 06/04/25 09:20 06/05/25 13:00 Hydralazine Hcl 25 Mg Tablet PO 25 mg Q6HR [facility] Administration Sodium Chloride 1,000 mls @ 75 mls/hr 06/02/25 03:30 06/02/25 04:14 Normal Saline Iv IV CONT 75 mls/hr On Hold: 06/02/25 10:04 .[id number] [facility] Administration Dextrose 1,000 mls @ 100 mls/hr 06/02/25 03:31 Dextrose 5% 1,000 Ml IVPB PRN PRN Hypoglycemia Protocol Metronidazole 500 mg in 100 mls @ 100 mls/hr 06/02/25 15:30 06/05/25 13:39 Flagyl 500 Mg/Iso Soln 100 Ml IVPB 100 mls/hr Q8HR [facility] Administration Albumin Human 50 mls @ 999 mls/hr 06/03/25 08:37 Albutein IVPB 07/03/25 08:36 Q10M PRN HYPOTENSION Ceftriaxone Sodium 1 gm/ 50 mls @ 100 mls/hr 06/03/25 09:00 06/05/25 13:28 Sodium Chloride IVPB Infused Q24H [facility] Infusion Insulin Aspart 2 - 5 units 06/02/25 08:00 06/05/25 13:01 Insulin Aspart (*Bkc) 100 Units/Ml SUB-Q Not Given TIDWM [facility] Protocol Isosorbide Mononitrate 30 mg 06/04/25 09:20 06/05/25 12:59 Isosorbide Mononitrate 30 Mg Tab.Er.24h PO 30 mg QAM [facility] Administration Metoprolol Tartrate 100 mg 06/02/25 09:00 06/02/25 10:07 Metoprolol Tartrate 50 Mg Tab BY MOUTH Not Given On Hold: 06/02/25 14:42 Q12HR [facility] Metoprolol Tartrate 5 mg 06/02/25 09:43 06/05/25 01:29 Metoprolol Tartrate Inj 5 Mg/5 Ml Vial IV PUSH 5 mg Q6H PRN Administration tachycardia >100 Pantoprazole Sodium 40 mg 06/02/25 09:00 06/02/25 10:07 Pantoprazole 40 Mg Tablet PO Not Given On Hold: 06/02/25 14:42 DAILY [facility] Radiology Results: ITS Impressions Chest/Abdomen/Pelvis CT 06/01/25 17:56 IMPRESSION: CHEST- 1. No acute findings. ABDOMEN/PELVIS- 1. Cystitis not excluded. 2. Mild colitis not excluded. 3. Otherwise no acute abnormality given noncontrast technique. Head CT 06/01/25 19:30 IMPRESSION: 1. No acute intracranial findings or change from prior exam. Chest X-Ray 06/05/25 14:07 Impression: No acute cardiopulmonary abnormality. Labs Labs: Laboratory Tests 06/05/25 05:10 06/05/25 05:10 Lactic Acid 1.4 Calcium 9.2 Phosphorus 5.3 H Magnesium 2.4 H Total Bilirubin 0.7 AST 34 ALT 12 Alkaline Phosphatase 92 Total Protein 7.9 Albumin 4.1 Microbiology 06/01/25 16:14 Blood Blood Culture - Preliminary 06/01/25 16:17 Blood Blood Culture - Preliminary
[2025-06-05] MEDS: cefTRIAXone 1 GM in SODIUM CHLORIDE 0.9% IV 50 ML 100 ML IVPB (12:58)
[2025-06-05] MEDS: ISOSORBIDE MONONITRATE 30 MG TAB.ER.24H PO (12:59)
--- NOTE | 2025-06-05 14:51 | PCPTNOTE ---
Attempted to discuss prior level of function with patient at 1458- patient is long term from [facility] per cc notes. Patient not fully answering questions appropriately. When asked if staff uses a jose f to transfer her at [facility], patient states I assume so. Will attempt to further determine prior level.
[2025-06-05] MEDS: SODIUM CHLORIDE 0.9% IV 1,000 ML 75 ML IV CONT (17:24)
[2025-06-06] VITALS (7 sets, daily range): BP systolic 130–164; BP diastolic 67–90; PULSE 117–133; RESP 18–20; TEMP 36.3–36.8; O2SAT 97–100
[2025-06-06] MEDS: metroNIDAZOLE 500 MG/ISO 100ML 500 MG/100 ML BAG 100 MG IVPB ×3 (05:26→21:27)
[2025-06-06 05:28] LABS: Hematocrit 34.8 % (37.0-47.0); Hemoglobin 11.1 g/dL (12.0-15.0); Immature Granulocyte Percent A 1.3 % (0-0.5); Lymphocytes Absolute Auto 3.60 K/mm3 (0.9-3.2); Mean Corpuscular HGB Conc 31.9 g/dl (32-36); Mean Corpuscular Hemoglobin 28.8 pg (26-34); Mean Corpuscular Volume 90.2 fl (80-100); Nucleated Red Blood Cells Absolute Auto 0.000 K/mm3 (0.0-0.012); Nucleated Red Blood Cells Perc 0.0 % (0.0-0.2); Platelet Count Result 253 k/mm3 (150-375); Red Blood Count 3.86 M/mm3 (4.2-5.4); White Blood Count 23.9 K/mm3 (4.5-10.0)
[2025-06-06 06:26] LABS: Alanine Aminotransferase 8 U/L (6-35); Albumin Level 3.5 g/dL (3.5-5.1); Alkaline Phosphatase 94 U/L (38-126); Anion Gap 13 mmol/L (4-12); Aspartate Amino Transferase 19 U/L (14-36); Bilirubin,Total 0.5 mg/dL (0.2-1.3); Blood Urea Nitrogen 43 mg/dL (7-17); Calcium 8.8 mg/dL (8.4-10.2); Carbon Dioxide 23 mmol/L (22-30); Chloride 99 mmol/L (98-107); Estimated CRCL calculation 27 ml/min; Estimated Glomerular Filt Rate 34; Glucose 154 mg/dL (65-110); Magnesium 2.1 mg/dL (1.6-2.3); Potassium 2.7 mmol/L (3.4-5.0); Sodium 135 mmol/L (137-145); Total Protein 7.1 g/dL (6.3-8.2)
[2025-06-06] MEDS: cefTRIAXone 1 GM in SODIUM CHLORIDE 0.9% IV 50 ML 100 ML IVPB (09:25)
[2025-06-06] MEDS: POTASSIUM CHLORIDE 20 MEQ PACKET (FOR LIQUID) PO (09:27)
[2025-06-06] MEDS: ISOSORBIDE MONONITRATE 30 MG TAB.ER.24H PO (09:27)
[2025-06-06] MEDS: HYDROcodone/acetaminophen (*CRX) 5-325 MG TABLET 1 TAB PO ×2 (10:39→21:24)
--- NOTE | 2025-06-06 12:01 | P.PNNP_ITS ---
Progress Note: A&P Assessment and Plan (1) Acute kidney injury: Code(s): N17.9 - Acute kidney failure, unspecified Status: Acute Assessment and Plan: * as noted by admission creatinine (6.31mg/dl) * creatinine 1.02mg/dl on discharge on 04/30/25 * etiology not clear -- infection/sepsis/SIRS, prerenal factors, other(?) * evaluation noted: * renal ultrasound a month ago noted * CT of A/P on this admission with no hydronephrosis * urine electrolytes prerenal (by FeUrea) * urine eosinophils negative * nephrotic range proteinuria (question validity since from starr catheter) * CPK low * questionable infection by UA * reasonable urine output noted * concern that altered mental status/encephalopathy may be due to uremia (BUN quite elevated)... * initiated on [facility] CLASS[facility] on 06/03 * received HD on 06/03, 06/04, and 06/05 (more so for clearance of uremic toxins) * follow trend of repeat labs and UOP (2) Hyperkalemia: Code(s): E87.5 - Hyperkalemia Status: Acute Assessment and Plan: * resolved (now with low K+) * presumably due to JOSHUA in the context of spironolactone use and associated acidosis * s/p medical management * follow trend of K+ (3) Altered mental status: Qualifiers: Altered mental status type: unspecified Qualified Code(s): R41.82 - Altered mental status, unspecified Code(s): R41.82 - Altered mental status, unspecified Status: Acute Assessment and Plan: * slow improvement * apparently normal mentation at baseline (as noted by progress notes from last hospitalization) * possibly secondary to uremia versus underlying infecton (given elevated WBC) versus other(?) * follow mentation (4) Leukocytosis: Code(s): D72.829 - Elevated white blood cell count, unspecified Status: Acute Assessment and Plan: * concern is for possible infection/sepsis * no clear source at this time * colitis versus UTI? * follow culture data * Infectious Disease following * on antibiotics (5) Metabolic acidosis: Code(s): E87.20 - Acidosis, unspecified Status: Acute Assessment and Plan: * resolved * due to Joshua/ARF * initial lactic acidosis on admission likely contributing as well * lactic acid has normalized * corrected with dialysis * follow trend of CO2 (6) Congestive heart failure: Code(s): I50.9 - Heart failure, unspecified Status: Chronic Assessment and Plan: * reported history * appears compensated at this time * Echo (on 06/02) noted: * left ventricular systolic function is hyperdynamic, estimated at >70. There is mild concentric increased * left ventricular diastolic function is grade I diastolic dysfunction * mild aortic valve sclerosis * mitral valve annulus is severely calcified * mild tricuspid valve regurgitation * follow volume status (7) Essential (primary) hypertension: Code(s): I10 - Essential (primary) hypertension Status: Chronic Assessment and Plan: * better control * restarted on home BP medications * holding spironolactone * follow trend of hemodynamics (8) DM2 (diabetes mellitus, type 2): Qualifiers: Diabetes mellitus remote computer terminal operator insulin use: without remote computer terminal operator use Diabetes mellitus complication status: with hyperglycemia Qualified Code(s): E11.65 - Type 2 diabetes mellitus with hyperglycemia Code(s): E11.9 - Type 2 diabetes mellitus without complications Status: Chronic Assessment and Plan: * follow accu-cheks * glycemic control per hospitalist Will continue to follow. Subjective Date/time seen: 06/06/25 12:01 Interval history: Follow-up for acute kidney injury/acute renal failure. Tolerated dialysis treatment yesterday without any issues or problems; mentation continues to improve if not stabilize; low K+ noted by AM labs and receiving replacement; no apparent distress noted at the time of my visit. Exam Narrative: General: elderly but WD/WN female in NAD Heart: normal S1 and S2; no rub Lungs: clear anteriorly Abdomen: soft, nontender, nondistended, positive bowel sounds Extremities: no cyanosis or clubbing; no edema Skin: no nodules Objective Data Vital Signs Vital Signs: Vital Signs Temp Pulse Resp BP Pulse Ox O2 Del Method 06/06/25 12:00 98.2 F 132 H 18 130/82 98 06/06/25 09:36 Room Air 10/05/25 08:00 Room Air 06/06/25 07:59 97.5 F L 130 H 18 140/90 98 06/06/25 04:00 97.5 F L 120 H 20 164/80 H 97 06/05/25 23:32 97.8 F 118 H 18 151/73 H 96 06/05/25 21:15 130 H 06/05/25 20:00 Room Air 06/05/25 20:00 98.4 F 133 H 20 133/65 97 Intake/Output Intake/Output: Intake & Output 06/03/25 06/04/25 06/05/25 06/06/25 23:59 23:59 23:59 23:59 Intake Total 401 934 0209 1210 Output Total 1592 2325 700 550 Balance -932 -1790 692 660 Meds/Results Medications: Active Medications Generic Name Dose Route Start Last Admin Trade Name Freq PRN Reason Stop Dose Admin Acetaminophen 650 mg 06/03/25 20:21 Acetaminophen 325 Mg Tablet PO Q6H PRN Mild Pain (1-3) or Fever Hydrocodone Bitart/Acetaminophen 1 tab 06/03/25 20:21 06/06/25 10:39 Hydrocodone/Acetaminophen (*Crx) 5-325 Mg Tablet PO 1 tab Q4H PRN Administration Pain Rated 4-6 Alteplase, Recombinant 2 mg 06/05/25 09:03 06/05/25 09:27 Alteplase 2 Mg Vial (Cathflo) IV PUSH 2 mg ONCE PRN Administration Line Occlusion Alteplase, Recombinant 2 mg 06/05/25 09:04 06/05/25 09:27 Alteplase 2 Mg Vial (Cathflo) IV PUSH 2 mg ONCE PRN Administration Line Occlusion Atorvastatin Calcium 20 mg 06/02/25 09:00 06/02/25 10:07 Atorvastatin 20 Mg Tablet BY MOUTH Not Given On Hold: 06/02/25 14:42 DAILY [facility] Bisacodyl 10 mg 06/02/25 03:32 Bisacodyl 10 Mg Suppository RECTAL DAILY PRN Constipation Clonidine HCl 0.3 mg 06/02/25 09:00 06/02/25 11:58 Clonidine Hcl 0.1 Mg Tablet BY MOUTH Not Given On Hold: 06/02/25 14:42 BID [facility]AMA Dextrose 12.5 gm 06/02/25 03:31 Dextrose 50% 25 Gm/50 Ml Syringe IV PUSH PRN PRN Hypoglycemia Protocol Gabapentin 300 mg 06/02/25 09:00 06/02/25 10:07 Gabapentin 300 Mg Capsule PO Not Given On Hold: 06/02/25 14:42 DAILY [facility] Glucagon 1 mg 06/02/25 03:31 Glucagon For Inj 1 Mg Vial IM PRN PRN Hypoglycemia Protocol Glucose 15 gm 06/02/25 03:31 Glucose Oral Gel 15 Gm Of Glucse In 37.5 Gm Tube PO PRN PRN Hypoglycemia Protocol Heparin Sodium (Porcine) 5,000 units 06/02/25 22:00 06/06/25 13:00 Heparin Sodium 5,000 Units/Ml Vial SUB-Q 5,000 units Q8HR [facility] Administration Hydralazine HCl 25 mg 06/04/25 09:20 06/06/25 17:47 Hydralazine Hcl 25 Mg Tablet PO 25 mg Q6HR USAMA Administration Sodium Chloride 1,000 mls @ 75 mls/hr 06/02/25 03:30 06/02/25 04:14 Normal Saline Iv IV CONT 75 mls/hr On Hold: 06/02/25 10:04 .[id number] USAMA Administration Dextrose 1,000 mls @ 100 mls/hr 06/02/25 03:31 Dextrose 5% 1,000 Ml IVPB PRN PRN Hypoglycemia Protocol Metronidazole 500 mg in 100 mls @ 100 mls/hr 06/02/25 15:30 06/06/25 14:00 Flagyl 500 Mg/Iso Soln 100 Ml IVPB Infused Q8HR USAMA Infusion Albumin Human 50 mls @ 999 mls/hr 06/03/25 08:37 Albutein IVPB 07/03/25 08:36 Q10M PRN HYPOTENSION Ceftriaxone Sodium 1 gm/ 50 mls @ 100 mls/hr 06/03/25 09:00 06/06/25 09:55 Sodium Chloride IVPB Infused Q24H USAMA Infusion Insulin Aspart 2 - 5 units 06/02/25 08:00 06/06/25 17:48 Insulin Aspart (*Bkc) 100 Units/Ml SUB-Q 3 units TIDWM USAMA Administration Protocol Isosorbide Mononitrate 30 mg 06/04/25 09:20 06/06/25 09:27 Isosorbide Mononitrate 30 Mg Tab.Er.24h PO 30 mg QAM USAMA Administration Metoprolol Tartrate 100 mg 06/02/25 09:00 06/02/25 10:07 Metoprolol Tartrate 50 Mg Tab BY MOUTH Not Given Q12HR [facility] Metoprolol Tartrate 5 mg 06/02/25 09:43 06/06/25 12:56 Metoprolol Tartrate Inj 5 Mg/5 Ml Vial IV PUSH 5 mg Q6H PRN Administration tachycardia >100 Pantoprazole Sodium 40 mg 06/02/25 09:00 06/02/25 10:07 Pantoprazole 40 Mg Tablet PO Not Given On Hold: 06/02/25 14:42 DAILY [facility] Radiology Results: ITS Impressions Chest/Abdomen/Pelvis CT 06/01/25 17:56 IMPRESSION: CHEST- 1. No acute findings. ABDOMEN/PELVIS- 1. Cystitis not excluded. 2. Mild colitis not excluded. 3. Otherwise no acute abnormality given noncontrast technique. Head CT 06/01/25 19:30 IMPRESSION: 1. No acute intracranial findings or change from prior exam. Chest X-Ray 06/05/25 14:07 Impression: No acute cardiopulmonary abnormality. Labs Labs: Laboratory Tests 06/06/25 05:06 WBC 23.9 H Hgb 11.1 L Hct 34.8 L Plt Count 253 Sodium 135 L Potassium 2.7 L* Chloride 99 Carbon Dioxide 23 Anion Gap 13 H BUN 43 H D Creatinine 1.49 H Estim Creat Clear Calc 27 Estimated GFR 34 L Glucose 154 H Lactic Acid 1.1 Calcium 8.8 Phosphorus 2.1 L Magnesium 2.1 Total Bilirubin 0.5 AST 19 ALT 8 Alkaline Phosphatase 94 Total Protein 7.1 Albumin 3.5
[2025-06-06] MEDS: INSULIN ASPART (*BKC) 100 UNITS/ML SUB-Q ×2 (12:21→17:48)
--- NOTE | 2025-06-06 12:25 | ECG_ITS ---
Test Date: 2025-06-06 12:48:27 Measurements Intervals [place] Rate: 133 P: 37 MS: 197 QRS: -1 QRSD: 86 T: 65 QT: 351 QTc: 523 Interpretive Statements SINUS TACHYCARDIA BORDERLINE R WAVE PROGRESSION, ANTERIOR LEADS LEFT VENTRICULAR HYPERTROPHY AND ST-T CHANGE BASELINE WANDER- V4-V5 ABNORMAL ECG Compared to ECG 06/01/2025 15:35:28 HEART RATE HAS INCREASED Electronically Signed On 06-06-2025 13:55:37 CDT by Chalino Navarro D.O.
[2025-06-06 12:40] LABS: Anion Gap 12 mmol/L (4-12); Blood Urea Nitrogen 45 mg/dL (7-17); Calcium 8.8 mg/dL (8.4-10.2); Carbon Dioxide 25 mmol/L (22-30); Chloride 98 mmol/L (98-107); Estimated CRCL calculation 28 ml/min; Estimated Glomerular Filt Rate 35; Glucose 334 mg/dL (65-110); Potassium 3.0 mmol/L (3.4-5.0); Sodium 135 mmol/L (137-145)
[2025-06-06] MEDS: METOPROLOL TARTRATE INJ 5 MG/5 ML VIAL IV PUSH (12:56)
--- NOTE | 2025-06-06 14:04 | P.PNIM_ITS ---
Progress Note: A&P Assessment and Plan (1) RENEA (acute kidney injury): Code(s): N17.9 - Acute kidney failure, unspecified Status: Resolved Assessment and Plan: -the patient has acute on chronic renal failure with uremia -patient had a renal ultrasound on 04/27/2025: Trabeculated bladder appearance with thickening. Focal thickening more prominent superiorly on the right. Cannot exclude transitional cell carcinoma possibly superimposed on cystitis. Recommend urology consultation. -urology saw the patient on 04/27/2025 and noted no acute urological surgical intervention is indicated. It was noted that they will follow her peripherally. -continue with IV fluid -monitor BMP -today BUN is 43 and creatinine 1.49. Her BUN on 04/30/2025 was 28 with a creatinine 1.02. Continue dialysis Nephrology following (2) DM2 (diabetes mellitus, type 2): Qualifiers: Diabetes mellitus nursing home insulin use: without remote computer terminal operator use Diabetes mellitus complication status: with hyperglycemia Qualified Code(s): E11.65 - Type 2 diabetes mellitus with hyperglycemia Code(s): E11.9 - Type 2 diabetes mellitus without complications Status: Chronic Assessment and Plan: -I am holding her p.o. medication. -sliding scale insulin -last A1c a couple days ago was 6.0. -her blood sugar was 169. (3) Essential (primary) hypertension: Code(s): I10 - Essential (primary) hypertension Status: Chronic Assessment and Plan: -blood pressure 140/90 -continue with clonidine if blood pressure allows -continue with metoprolol F blood pressure allow (4) Congestive heart failure: Code(s): I50.9 - Heart failure, unspecified Status: Chronic Assessment and Plan: -continue with metoprolol -[place] [facility] is currently on hold due to her acute renal failure. -echo showed left ventricular hypertrophy with hyperdynamic systolic -spironolactone on hold at this time. (5) Hyperlipidemia: Code(s): E78.5 - Hyperlipidemia, unspecified Status: Acute Assessment and Plan: -continue without atorvastatin and monitor liver enzymes (6) Generalized anxiety disorder: Code(s): F41.1 - Generalized anxiety disorder Status: Acute (7) Hyperkalemia: Code(s): E87.5 - Hyperkalemia Status: Acute Assessment and Plan: -most likely secondary to the acute kidney injury -she has also been on spironolactone which is now on hold. -the patient was given Lokelma in the emergency room. -daily BMPs. -her potassium was 5.3. Plan AMS from uremia, resolving improving with dialysis Pain medication and muscle relaxers held at this time due to her acute altered mental status. monitor Colitis CT AP reviewed Day 4 Rocephin and Flagyl Leukocytosis improving 23.9 from [address] AP urine culture pending on Rocephin monitor tachycardia started back on her home Metoprolol monitor DVT prophylaxis on Sq heparin PT/OT eval for discharge planning Subjective Date/time seen: 06/06/25 14:05 Interval history: Comfortable at bedside Review of Systems Review of Systems: ROS unobtainable: Yes unobtainable due to medical condition and unobtainable due to mental status ENT: Reports Normal hearing present Neurologic: Reports Normal hearing present Exam Narrative: General: lethargic HEENT: Normocephalic. Atraumatic. Extraocular movement intact. Sclera clear and anicteric. No facial asymmetry. Chest: Lungs are coarse to auscultation bilaterally. CV: Heart was regular rate and rhythm. Abd: Abdomen was soft. Nontender. Nondistended. Positive bowel sounds. Ext: No clubbing, cyanosis, or edema. DP pulses bilaterally. Neuro: Patient is alert to voice and upon return able AOx1 (person), following some commands. Symmetrical cell stripper final strength and wiggles toes. Skin: Warm and dry. No rashes or ulcers noted. Const: General: cooperative, no acute distress, well developed, awake, Physically active, average body habitus and well nourished Nutritional Appearance: average body habitus and well nourished Orientation/consciousness: oriented to person, oriented to place, oriented to time and patient oriented x3 HENMT: Head: normal to inspection, No palpable skull fracture present, normocephalic and atraumatic Ears: hearing grossly normal bilaterally Eyes: General: appearance normal, both eyes and all related structures Alignment and Position: alignment normal Periorbital: periorbital findings no rmal Eyelids: eyelids normal Pupils: Equal, round and reactive pupils present Neck: Neck: normal visual inspection and full ROM Chest: Chest palpation & inspection: normal inspection of the chest Resp: Effort & Inspection: normal respiratory effort Auscultation: clear to auscultation bilaterally Cardio: Palpation: normal PMI Rate: regular rate Rhythm: regular rhythm Heart sounds: S1 normal heart sound present and S2 normal heart sound present Peripheral pulses: Peripheral pulses 2+ throughout GI: Inspection: normal to inspection Auscultation: normal bowel sounds Rectal Exam: deferred Skin: General skin exam: normal color Lesions: no lesions Rashes: no rashes Trauma: no lacerations or abrasions Wounds: no wounds Hair: normal Nails: normal Neuro: General: oriented to person, oriented to place, oriented to time and patient oriented x3 Cranial nerves: Yes Equal, round and reactive pupils present and Yes Normal hearing present Cognition (Neuro): normal cognition Speech: normal speech Motor exam (neuro): 5/5 motor strength present throughout Sensory Exam: normal sensation Extrem: General: normal to inspection Right upper extremity: normal to inspection and shoulder/upper arm Left upper extremity: normal to inspection and shoulder/upper arm Right lower extremity: normal to inspection Left lower extremity: normal to inspection Psych: Mental Status: other Affect: normal affect Attitude: cooperative Objective Data Vital Signs Vital Signs: Vital Signs - 24 hr 06/05/25 15:59 06/05/25 20:00 06/05/25 20:00 Temperature 99.3 F 98.4 F Pulse Rate 130 H 133 H Respiratory Rate 20 20 Blood Pressure 125/75 133/65 Pulse Oximetry 97 97 Oxygen Delivery Room Air 06/05/25 21:15 06/05/25 23:32 06/06/25 04:00 Temperature 97.8 F 97.5 F L Pulse Rate 130 H 118 H 120 H Respiratory Rate 18 20 Blood Pressure 151/73 H 164/80 H Pulse Oximetry 96 97 Oxygen Delivery 06/06/25 07:59 06/06/25 08:00 06/06/25 09:36 Temperature 97.5 F L Pulse Rate 130 H Respiratory Rate 18 Blood Pressure 140/90 Pulse Oximetry 98 Oxygen Delivery Room Air Room Air 06/06/25 12:00 06/06/25 12:56 Temperature 98.2 F Pulse Rate 132 H 133 H Respiratory Rate 18 Blood Pressure 130/82 Pulse Oximetry 98 Oxygen Delivery Intake/Output Intake/Output: Intake & Output 06/03/25 06/04/25 06/05/25 06/06/25 23:59 23:59 23:59 23:59 Intake Total 188 946 9696 870 Output Total 3077 2838 700 550 Balance -932 -8850 692 320 Meds/Results Medications: Active Medications Generic Name Dose Route Start Last Admin Trade Name Freq PRN Reason Stop Dose Admin Acetaminophen 650 mg 06/03/25 20:21 Acetaminophen 325 Mg Tablet PO Q6H PRN Mild Pain (1-3) or Fever Hydrocodone Bitart/Acetaminophen 1 tab 06/03/25 20:21 06/06/25 10:39 Hydrocodone/Acetaminophen (*Crx) 5-325 Mg Tablet PO 1 tab Q4H PRN Administration Pain Rated 4-6 Alteplase, Recombinant 2 mg 06/05/25 09:03 06/05/25 09:27 Alteplase 2 Mg Vial (Cathflo) IV PUSH 2 mg ONCE PRN Administration Line Occlusion Alteplase, Recombinant 2 mg 06/05/25 09:04 06/05/25 09:27 Alteplase 2 Mg Vial (Cathflo) IV PUSH 2 mg ONCE PRN Administration Line Occlusion Atorvastatin Calcium 20 mg 06/02/25 09:00 06/02/25 10:07 Atorvastatin 20 Mg Tablet BY MOUTH Not Given On Hold: 06/02/25 14:42 DAILY [facility] Bisacodyl 10 mg 06/02/25 03:32 Bisacodyl 10 Mg Suppository RECTAL DAILY PRN Constipation Clonidine HCl 0.3 mg 06/02/25 09:00 06/02/25 11:58 Clonidine Hcl 0.1 Mg Tablet BY MOUTH Not Given On Hold: 06/02/25 14:42 BID [facility] Dextrose 12.5 gm 06/02/25 03:31 Dextrose 50% 25 Gm/50 Ml Syringe IV PUSH PRN PRN Hypoglycemia Protocol Gabapentin 300 mg 06/02/25 09:00 06/02/25 10:07 Gabapentin 300 Mg Capsule PO Not Given On Hold: 06/02/25 14:42 DAILY [facility] Glucagon 1 mg 06/02/25 03:31 Glucagon For Inj 1 Mg Vial IM PRN PRN Hypoglycemia Protocol Glucose 15 gm 06/02/25 03:31 Glucose Oral Gel 15 Gm Of Glucse In 37.5 Gm Tube PO PRN PRN Hypoglycemia Protocol Heparin Sodium (Porcine) 5,000 units 06/02/25 22:00 06/06/25 13:00 Heparin Sodium 5,000 Units/Ml Vial SUB-Q 5,000 units Q8HR [facility] Administration Hydralazine HCl 25 mg 06/04/25 09:20 06/06/25 12:22 Hydralazine Hcl 25 Mg Tablet PO 25 mg Q6HR [facility] Administration Sodium Chloride 1,000 mls @ 75 mls/hr 06/02/25 03:30 06/02/25 04:14 Normal Saline Iv IV CONT 75 mls/hr On Hold: 06/02/25 10:04 .[id number] USAMA Administration Dextrose 1,000 mls @ 100 mls/hr 06/02/25 03:31 Dextrose 5% 1,000 Ml IVPB PRN PRN Hypoglycemia Protocol Metronidazole 500 mg in 100 mls @ 100 mls/hr 06/02/25 15:30 06/06/25 13:00 Flagyl 500 Mg/Iso Soln 100 Ml IVPB 100 mls/hr Q8HR [facility] Administration Albumin Human 50 mls @ 999 mls/hr 06/03/25 08:37 Albutein IVPB 07/03/25 08:36 Q10M PRN HYPOTENSION Ceftriaxone Sodium 1 gm/ 50 mls @ 100 mls/hr 06/03/25 09:00 06/06/25 09:55 Sodium Chloride IVPB Infused Q24H [facility] Infusion Insulin Aspart 2 - 5 units 06/02/25 08:00 06/06/25 12:21 Insulin Aspart (*Bkc) 100 Units/Ml SUB-Q 4 units TIDWM USAMA Administration Protocol Isosorbide Mononitrate 30 mg 06/04/25 09:20 06/06/25 09:27 Isosorbide Mononitrate 30 Mg Tab.Er.24h PO 30 mg QAM [facility]AMA Administration Metoprolol Tartrate 100 mg 06/02/25 09:00 06/02/25 10:07 Metoprolol Tartrate 50 Mg Tab BY MOUTH Not Given On Hold: 06/02/25 14:42 Q12HR [facility] Metoprolol Tartrate 5 mg 06/02/25 09:43 06/06/25 12:56 Metoprolol Tartrate Inj 5 Mg/5 Ml Vial IV PUSH 5 mg Q6H PRN Administration tachycardia >100 Pantoprazole Sodium 40 mg 06/02/25 09:00 06/02/25 10:07 Pantoprazole 40 Mg Tablet PO Not Given On Hold: 06/02/25 14:42 DAILY [facility] Radiology Results: ITS Impressions Chest/Abdomen/Pelvis CT 06/01/25 17:56 IMPRESSION: CHEST- 1. No acute findings. ABDOMEN/PELVIS- 1. Cystitis not excluded. 2. Mild colitis not excluded. 3. Otherwise no acute abnormality given noncontrast technique. Head CT 06/01/25 19:30 IMPRESSION: 1. No acute intracranial findings or change from prior exam. Chest X-Ray 06/05/25 14:07 Impression: No acute cardiopulmonary abnormality. Labs Labs: Laboratory Results - last 24 hr 06/05/25 06/05/25 06/06/25 16:30 20:42 05:06 WBC 23.9 H RBC 3.86 L Hgb 11.1 L Hct 34.8 L MCV 90.2 MCH 28.8 MCHC 31.9 L RDW 13.8 Plt Count 253 MPV 10.5 H Immature Gran % (Auto) 1.3 H Neut % (Auto) 71.5 Lymph % (Auto) 15.1 L [place] % (Auto) 11.5 H Eos % (Auto) 0.2 Baso % (Auto) 0.4 Lymph # (Auto) 3.60 H [place] # (Auto) 2.7 H Eos # (Auto) 0.1 Baso # (Auto) 0.1 Abs Immat Gran (auto) 0.31 H Absolute Neuts (auto) 17.1 H Absolute Nucleated RBC 0.000 Nucleated RBC % 0.0 Sodium 135 L Potassium 2.7 L* Chloride 99 Carbon Dioxide 23 Anion Gap 13 H BUN 43 H D Creatinine 1.49 H Estim Creat Clear Calc 27 Estimated GFR 34 L Glucose 154 H POC Capillary Glucose 186 H 278 H Lactic Acid 1.1 Calcium 8.8 Phosphorus 2.1 L Magnesium 2.1 Total Bilirubin 0.5 AST 19 ALT 8 Alkaline Phosphatase 94 Total Protein 7.1 Albumin 3.5 06/06/25 06/06/25 06/06/25 07:49 11:50 12:18 WBC RBC Hgb Hct MCV MCH MCHC RDW Plt Count MPV Immature Gran % (Auto) Neut % (Auto) Lymph % (Auto) [place] % (Auto) Eos % (Auto) Baso % (Auto) Lymph # (Auto) [place] # (Auto) Eos # (Auto) Baso # (Auto) Abs Immat Gran (auto) Absolute Neuts (auto) Absolute Nucleated RBC Nucleated RBC % Sodium 135 L Potassium 3.0 L Chloride 98 Carbon Dioxide 25 Anion Gap 12 BUN 45 H Creatinine 1.46 H Estim Creat Clear Calc 28 Estimated GFR 35 L Glucose 334 H POC Capillary Glucose 181 H 311 H Lactic Acid Calcium 8.8 Phosphorus Magnesium Total Bilirubin AST ALT Alkaline Phosphatase Total Protein Albumin Quality VTE Prophylaxis VTE prophylaxis: pharmacologic ordered
[2025-06-06] MEDS: POTASSIUM CHLORIDE 20 MEQ PACKET (FOR LIQUID) 40 MEQ PO ×2 (15:49→17:48)
[2025-06-06 17:59] LABS: Potassium 3.8 mmol/L (3.4-5.0)
[2025-06-06] MEDS: METOPROLOL TARTRATE 50 MG TAB 100 MG BY MOUTH (21:24)
[2025-06-07] VITALS (11 sets, daily range): BP systolic 140–200; BP diastolic 71–99; PULSE 53–98; RESP 16–20; TEMP 36.2–36.8; O2SAT 96–100
[2025-06-07 05:33] LABS: Hematocrit 37.4 % (37.0-47.0); Hemoglobin 11.7 g/dL (12.0-15.0); Immature Granulocyte Percent A 1.7 % (0-0.5); Lymphocytes Absolute Auto 4.21 K/mm3 (0.9-3.2); Mean Corpuscular HGB Conc 31.3 g/dl (32-36); Mean Corpuscular Hemoglobin 28.6 pg (26-34); Mean Corpuscular Volume 91.4 fl (80-100); Nucleated Red Blood Cells Absolute Auto 0.000 K/mm3 (0.0-0.012); Nucleated Red Blood Cells Perc 0.0 % (0.0-0.2); Platelet Count Result 276 k/mm3 (150-375); Red Blood Count 4.09 M/mm3 (4.2-5.4); White Blood Count 23.1 K/mm3 (4.5-10.0)
[2025-06-07 05:55] LABS: Alanine Aminotransferase 9 U/L (6-35); Albumin Level 3.5 g/dL (3.5-5.1); Alkaline Phosphatase 87 U/L (38-126); Anion Gap 10 mmol/L (4-12); Aspartate Amino Transferase 19 U/L (14-36); Bilirubin,Total 0.5 mg/dL (0.2-1.3); Blood Urea Nitrogen 42 mg/dL (7-17); Calcium 8.8 mg/dL (8.4-10.2); Carbon Dioxide 23 mmol/L (22-30); Chloride 104 mmol/L (98-107); Estimated CRCL calculation 32 ml/min; Estimated Glomerular Filt Rate 42; Glucose 159 mg/dL (65-110); Magnesium 1.9 mg/dL (1.6-2.3); Potassium 3.9 mmol/L (3.4-5.0); Sodium 137 mmol/L (137-145); Total Protein 7.0 g/dL (6.3-8.2)
[2025-06-07] MEDS: metroNIDAZOLE 500 MG/ISO 100ML 500 MG/100 ML BAG 100 MG IVPB ×3 (06:30→21:01)
--- NOTE | 2025-06-07 10:09 | P.PNIM_ITS ---
Progress Note: A&P Assessment and Plan (1) RENEA (acute kidney injury): Code(s): N17.9 - Acute kidney failure, unspecified Status: Resolved Assessment and Plan: -the patient has acute on chronic renal failure with uremia -patient had a renal ultrasound on 04/27/2025: Trabeculated bladder appearance with thickening. Focal thickening more prominent superiorly on the right. Cannot exclude transitional cell carcinoma possibly superimposed on cystitis. Recommend urology consultation. -urology saw the patient on 04/27/2025 and noted no acute urological surgical intervention is indicated. It was noted that they will follow her peripherally. -continue with IV fluid -monitor BMP -today BUN is 42 and creatinine 1.25. Her BUN on 04/30/2025 was 28 with a creatinine 1.02. Continue dialysis per Nephrology Nephrology following (2) DM2 (diabetes mellitus, type 2): Qualifiers: Diabetes mellitus terminal clerk insulin use: without half-way use Diabetes mellitus complication status: with hyperglycemia Qualified Code(s): E11.65 - Type 2 diabetes mellitus with hyperglycemia Code(s): E11.9 - Type 2 diabetes mellitus without complications Status: Chronic Assessment and Plan: -I am holding her p.o. medication. -sliding scale insulin -last A1c a couple days ago was 6.0. -her blood sugar was 169. (3) Essential (primary) hypertension: Code(s): I10 - Essential (primary) hypertension Status: Chronic Assessment and Plan: -blood pressure 170/90 -continue Metoprolol, Isosorbide mononitrate, Hydralazine and started on Nifedipinie today monitor (4) Congestive heart failure: Code(s): I50.9 - Heart failure, unspecified Status: Chronic Assessment and Plan: -continue with metoprolol -patient for josafatdc is currently on hold due to her acute renal failure. -echo showed left ventricular hypertrophy with hyperdynamic systolic -spironolactone on hold at this time. (5) Hyperlipidemia: Code(s): E78.5 - Hyperlipidemia, unspecified Status: Acute Assessment and Plan: -continue without atorvastatin and monitor liver enzymes (6) Generalized anxiety disorder: Code(s): F41.1 - Generalized anxiety disorder Status: Acute (7) Hyperkalemia: Code(s): E87.5 - Hyperkalemia Status: Acute Assessment and Plan: -most likely secondary to the acute kidney injury -she has also been on spironolactone which is now on hold. -the patient was given Lokelma in the emergency room. resolved Plan AMS from uremia, resolved improving with dialysis Pain medication and muscle relaxers held at this time due to her acute altered mental status. monitor Colitis CT AP reviewed Day 5 Rocephin and Flagyl Leukocytosis improving 23.1 from 29 500 cc NS to be given at 75cc/hr and monitor WBC monitor Cystitis per CT AP urine culture pending on Rocephin monitor Tachycardia, Resolved with restarting patient's home Metoprolol 100mg bid monitor Kidney failure resolving, resolution of Leukocytosis and possibel placement DVT prophylaxis on Sq heparin PT/OT eval for discharge planning Subjective Date/time seen: 06/07/25 10:09 Interval history: Comfortable at bedside Leukocytosis still elevated, likely for poor oral intake vs infection blood and urine cultures negative Review of Systems Review of Systems: ROS unobtainable: Yes unobtainable due to medical condition and unobtainable due to mental status ENT: Reports Normal hearing present Neurologic: Reports Normal hearing present Exam Narrative: General: lethargic HEENT: Normocephalic. Atraumatic. Extraocular movement intact. Sclera clear and anicteric. No facial asymmetry. Chest: Lungs are coarse to auscultation bilaterally. CV: Heart was regular rate and rhythm. Abd: Abdomen was soft. Nontender. Nondistended. Positive bowel sounds. Ext: No clubbing, cyanosis, or edema. DP pulses bilaterally. Neuro: Patient is alert to voice and upon return able AOx1 (person), following some commands. 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 Skin: Warm and dry. No rashes or ulcers noted. Const: General: cooperative, no acute distress, well developed, awake, Physically active, average body habitus and well nourished Nutritional Appearance: average body habitus and well nourished Orientation/consciousness: oriented to person, oriented to place, oriented to time and patient oriented x3 HENMT: Head: normal to inspection, No palpable skull fracture present, normocephalic and atraumatic Ears: hearing grossly normal bilaterally Eyes: General: appearance normal, both eyes and all related structures Alignment and Position: alignment normal Periorbital: periorbital findings normal Eyelids: eyelids normal Pupils: Equal, round and reactive pupils present Neck: Neck: normal visual inspection and full ROM Chest: Chest palpation & inspection: normal inspection of the chest Resp: Effort & Inspection: normal respiratory effort Auscultation: clear to auscultation bilaterally Cardio: Palpation: normal PMI Rate: regular rate Rhythm: regular rhythm Heart sounds: S1 normal heart sound present and S2 normal heart sound present Peripheral pulses: Peripheral pulses 2+ throughout GI: Inspection: normal to inspection Auscultation: normal bowel sounds Rectal Exam: deferred Skin: General skin exam: normal color Lesions: no lesions Rashes: no rashes Trauma: no lacerations or abrasions Wounds: no wounds Hair: normal Nails: normal Neuro: General: oriented to person, oriented to place, oriented to time and patient oriented x3 Cranial nerves: Yes Equal, round and reactive pupils present and Yes Normal hearing present Cognition (Neuro): normal cognition Speech: normal speech Motor exam (neuro): 5/5 motor strength present throughout Sensory Exam: normal sensation Extrem: General: normal to inspection Right upper extremity: normal to inspection and shoulder/upper arm Left upper extremity: normal to inspection and shoulder/upper arm Right lower extremity: normal to inspection Left lower extremity: normal to inspection Psych: Mental Status: other Affect: normal affect Attitude: cooperative Objective Data Vital Signs Vital Signs: Vital Signs - 24 hr 06/06/25 12:00 06/06/25 12:56 06/06/25 16:00 Temperature 98.2 F 97.6 F Pulse Rate 132 H 133 H 122 H Respiratory Rate 18 18 Blood Pressure 130/82 143/88 H Pulse Oximetry 98 98 Oxygen Delivery 06/06/25 20:00 06/06/25 20:00 06/06/25 21:24 Temperature 97.4 F L Pulse Rate 117 H 117 H Respiratory Rate 18 Blood Pressure 137/67 Pulse Oximetry 100 Oxygen Delivery Room Air 06/07/25 00:00 06/07/25 03:07 06/07/25 03:44 Temperature 97.2 F L 97.6 F Pulse Rate 64 98 Respiratory Rate 20 18 Blood Pressure 200/90 H 180/90 H 168/99 H Pulse Oximetry 96 97 Oxygen Delivery 06/07/25 08:00 Temperature 97.3 F L Pulse Rate 94 Respiratory Rate Blood Pressure 170/90 H Pulse Oximetry 99 Oxygen Delivery Intake/Output Intake/Output: Intake & Output 06/04/25 06/05/25 06/06/25 06/07/25 23:59 23:59 23:59 23:59 Intake Total 535 1392 1410 200 Output Total 2325 700 1450 700 Balance -1790 002 -49 -777 Meds/Results Medications: Active Medications Generic Name Dose Route Start Last Admin Trade Name Freq PRN Reason Stop Dose Admin Acetaminophen 650 mg 06/03/25 20:21 Acetaminophen 325 Mg Tablet PO Q6H PRN Mild Pain (1-3) or Fever Hydrocodone Bitart/Acetaminophen 1 tab 06/03/25 20:21 06/06/25 21:24 Hydrocodone/Acetaminophen (*Crx) 5-325 Mg Tablet PO 1 tab Q4H PRN Administration Pain Rated 4-6 Alteplase, Recombinant 2 mg 06/05/25 09:03 06/05/25 09:27 Alteplase 2 Mg Vial (Cathflo) IV PUSH 2 mg ONCE PRN Administration Line Occlusion Alteplase, Recombinant 2 mg 06/05/25 09:04 06/05/25 09:27 Alteplase 2 Mg Vial (Cathflo) IV PUSH 2 mg ONCE PRN Administration Line Occlusion Atorvastatin Calcium 20 mg 06/02/25 09:00 06/02/25 10:07 Atorvastatin 20 Mg Tablet BY MOUTH Not Given On Hold: 06/02/25 14:42 DAILY [facility] Bisacodyl 10 mg 06/02/25 03:32 Bisacodyl 10 Mg Suppository RECTAL DAILY PRN Constipation Clonidine HCl 0.3 mg 06/02/25 09:00 06/02/25 11:58 Clonidine Hcl 0.1 Mg Tablet BY MOUTH Not Given On Hold: 06/02/25 14:42 BID USAMA Dextrose 12.5 gm 06/02/25 03:31 Dextrose 50% 25 Gm/50 Ml Syringe IV PUSH PRN PRN Hypoglycemia Protocol Gabapentin 300 mg 06/02/25 09:00 06/02/25 10:07 Gabapentin 300 Mg Capsule PO Not Given On Hold: 06/02/25 14:42 DAILY [facility] Glucagon 1 mg 06/02/25 03:31 Glucagon For Inj 1 Mg Vial IM PRN PRN Hypoglycemia Protocol Glucose 15 gm 06/02/25 03:31 Glucose Oral Gel 15 Gm Of Glucse In 37.5 Gm Tube PO PRN PRN Hypoglycemia Protocol Heparin Sodium (Porcine) 5,000 units 06/02/25 22:00 06/07/25 06:29 Heparin Sodium 5,000 Units/Ml Vial SUB-Q 5,000 units Q8HR USAMA Administration Hydralazine HCl 25 mg 06/04/25 09:20 06/07/25 06:29 Hydralazine Hcl 25 Mg Tablet PO 25 mg Q6HR USAMA Administration Sodium Chloride 1,000 mls @ 75 mls/hr 06/02/25 03:30 06/02/25 04:14 Normal Saline Iv IV CONT 75 mls/hr On Hold: 06/02/25 10:04 .[id number] USAMA Administration Dextrose 1,000 mls @ 100 mls/hr 06/02/25 03:31 Dextrose 5% 1,000 Ml IVPB PRN PRN Hypoglycemia Protocol Metronidazole 500 mg in 100 mls @ 100 mls/hr 06/02/25 15:30 06/07/25 06:30 Flagyl 500 Mg/Iso Soln 100 Ml IVPB 100 mls/hr Q8HR USAMA Administration Albumin Human 50 mls @ 999 mls/hr 06/03/25 08:37 Albutein IVPB 07/03/25 08:36 Q10M PRN HYPOTENSION Ceftriaxone Sodium 1 gm/ 50 mls @ 100 mls/hr 06/03/25 09:00 06/06/25 09:55 Sodium Chloride IVPB Infused Q24H USAMA Infusion Insulin Aspart 2 - 5 units 06/02/25 08:00 06/07/25 10:04 Insulin Aspart (*Bkc) 100 Units/Ml SUB-Q Not Given TIDWM USAMA Protocol Isosorbide Mononitrate 30 mg 06/04/25 09:20 06/06/25 09:27 Isosorbide Mononitrate 30 Mg Tab.Er.24h PO 30 mg QAM USAMA Administration Metoprolol Tartrate 100 mg 06/02/25 09:00 06/06/25 21:24 Metoprolol Tartrate 50 Mg Tab BY MOUTH 100 mg Q12HR USAMA Administration Metoprolol Tartrate 5 mg 06/02/25 09:43 06/06/25 12:56 Metoprolol Tartrate Inj 5 Mg/5 Ml Vial IV PUSH 5 mg Q6H PRN Administration tachycardia >100 Nifedipine 30 mg 06/07/25 09:00 Nifedipine 30 Mg Tab.Er.24 PO QAM [facility] Pantoprazole Sodium 40 mg 06/02/25 09:00 06/02/25 10:07 Pantoprazole 40 Mg Tablet PO Not Given On Hold: 06/02/25 14:42 DAILY [facility] Radiology Results: ITS Impressions Chest/Abdomen/Pelvis CT 06/01/25 17:56 IMPRESSION: CHEST- 1. No acute findings. ABDOMEN/PELVIS- 1. Cystitis not excluded. 2. Mild colitis not excluded. 3. Otherwise no acute abnormality given noncontrast technique. Head CT 06/01/25 19:30 IMPRESSION: 1. No acute intracranial findings or change from prior exam. Chest X-Ray 06/05/25 14:07 Impression: No acute cardiopulmonary abnormality. Labs Labs: Laboratory Results - last 24 hr 06/06/25 06/06/25 06/06/25 11:50 12:18 17:09 WBC RBC Hgb Hct MCV MCH MCHC RDW Plt Count MPV Immature Gran % (Auto) Neut % (Auto) Lymph % (Auto) Lawrence % (Auto) Eos % (Auto) Baso % (Auto) Lymph # (Auto) Lawrence # (Auto) Eos # (Auto) Baso # (Auto) Abs Immat Gran (auto) Absolute Neuts (auto) Absolute Nucleated RBC Nucleated RBC % Sodium 135 L Potassium 3.0 L Chloride 98 Carbon Dioxide 25 Anion Gap 12 BUN 45 H Creatinine 1.46 H Estim Creat Clear Calc 28 Estimated GFR 35 L Glucose 334 H POC Capillary Glucose 311 H 268 H Calcium 8.8 Phosphorus Magnesium Total Bilirubin AST ALT Alkaline Phosphatase Total Protein Albumin 06/06/25 06/06/25 06/07/25 17:47 20:14 05:26 WBC 23.1 H RBC 4.09 L Hgb 11.7 L Hct 37.4 MCV 91.4 MCH 28.6 MCHC 31.3 L RDW 13.9 Plt Count 276 MPV 10.7 H Immature Gran % (Auto) 1.7 H Neut % (Auto) 69.7 Lymph % (Auto) 18.3 Lawrence % (Auto) 9.1 H Eos % (Auto) 0.5 Baso % (Auto) 0.7 Lymph # (Auto) 4.21 H Lawrence # (Auto) 2.1 H Eos # (Auto) 0.1 Baso # (Auto) 0.2 H Abs Immat Gran (auto) 0.39 H Absolute Neuts (auto) 16.1 H Absolute Nucleated RBC 0.000 Nucleated RBC % 0.0 Sodium 137 Potassium 3.8 3.9 Chloride 104 Carbon Dioxide 23 Anion Gap 10 BUN 42 H Creatinine 1.25 H Estim Creat Clear Calc 32 Estimated GFR 42 L Glucose 159 H POC Capillary Glucose 146 H Calcium 8.8 Phosphorus 1.9 L Magnesium 1.9 Total Bilirubin 0.5 AST 19 ALT 9 Alkaline Phosphatase 87 Total Protein 7.0 Albumin 3.5 06/07/25 08:18 WBC RBC Hgb Hct MCV MCH MCHC RDW Plt Count MPV Immature Gran % (Auto) Neut % (Auto) Lymph % (Auto) Lawrence % (Auto) Eos % (Auto) Baso % (Auto) Lymph # (Auto) Lawrence # (Auto) Eos # (Auto) Baso # (Auto) Abs Immat Gran (auto) Absolute Neuts (auto) Absolute Nucleated RBC Nucleated RBC % Sodium Potassium Chloride Carbon Dioxide Anion Gap BUN Creatinine Estim Creat Clear Calc Estimated GFR Glucose POC Capillary Glucose 161 H Calcium Phosphorus Magnesium Total Bilirubin AST ALT Alkaline Phosphatase Total Protein Albumin Quality VTE Prophylaxis VTE prophylaxis: pharmacologic ordered
--- NOTE | 2025-06-07 10:25 | P.PNNP_ITS ---
Progress Note: A&P Assessment and Plan (1) Acute kidney injury: Code(s): N17.9 - Acute kidney failure, unspecified Status: Acute Assessment and Plan: * improvement noted * as noted by admission creatinine (6.31mg/dl) * creatinine 1.02mg/dl on discharge on 04/30/25 * etiology not clear -- infection/sepsis/SIRS, prerenal factors, other(?) * evaluation noted: * renal ultrasound a month ago noted * CT of A/P on this admission with no hydronephrosis * urine electrolytes prerenal (by FeUrea) * urine eosinophils negative * nephrotic range proteinuria (question validity since from starr catheter) * CPK low * questionable infection by UA * reasonable urine output noted * concern that altered mental status/encephalopathy may be due to uremia (BUN quite elevated)... * initiated on TANK SETTER on 06/03 * received HD on 06/03, 06/04, and 06/05 (more so for clearance of uremic toxins) * HOLD dialysis for now * follow trend of repeat labs and UOP (2) Hyperkalemia: Code(s): E87.5 - Hyperkalemia Status: Acute Assessment and Plan: * resolved * presumably due to JOSHUA in the context of spironolactone use and associated acidosis * s/p medical management * follow trend of K+ (3) Altered mental status: Qualifiers: Altered mental status type: unspecified Qualified Code(s): R41.82 - Altered mental status, unspecified Code(s): R41.82 - Altered mental status, unspecified Status: Acute Assessment and Plan: * slow improvement * apparently normal mentation at baseline (as noted by progress notes from last hospitalization) * possibly secondary to uremia versus underlying infecton (given elevated WBC) versus other(?) * follow mentation (4) Leukocytosis: Code(s): D72.829 - Elevated white blood cell count, unspecified Status: Acute Assessment and Plan: * concern is for possible infection/sepsis * no clear source at this time * colitis versus UTI? * follow culture data * Infectious Disease following * on antibiotics (5) Metabolic acidosis: Code(s): E87.20 - Acidosis, unspecified Status: Acute Assessment and Plan: * resolved * due to Joshua/ARF * initial lactic acidosis on admission likely contributing as well * lactic acid has normalized * corrected with dialysis * follow trend of CO2 (6) Congestive heart failure: Code(s): I50.9 - Heart failure, unspecified Status: Chronic Assessment and Plan: * reported history * appears compensated at this time * Echo (on 06/02) noted: * left ventricular systolic function is hyperdynamic, estimated at >70. There is mild concentric increased * left ventricular diastolic function is grade I diastolic dysfunction * mild aortic valve sclerosis * mitral valve annulus is severely calcified * mild tricuspid valve regurgitation * follow volume status (7) Essential (primary) hypertension: Code(s): I10 - Essential (primary) hypertension Status: Chronic Assessment and Plan: * fluctuating * restarted on home BP medications * holding spironolactone * follow trend of hemodynamics (8) DM2 (diabetes mellitus, type 2): Qualifiers: Diabetes mellitus detention insulin use: without intermediate card tender use Diabetes mellitus complication status: with hyperglycemia Qualified Code(s): E11.65 - Type 2 diabetes mellitus with hyperglycemia Code(s): E11.9 - Type 2 diabetes mellitus without complications Status: Chronic Assessment and Plan: * follow accu-cheks * glycemic control per hospitalist Will continue to follow. L Subjective Date/time seen: 06/07/25 10:25 Interval history: Follow-up for acute kidney injury/acute renal failure. Renal function/creatinine stable if not better as noted by trend of labs with adequate urine output noted; still appears somewhat tired/weak at the time of my visit; flat affect still present/remains; no reported issues/events overnight or earlier this morning. Exam 2 Narrative: General: elderly but WD/WN female in NAD Heart: normal S1 and S2; no rub Lungs: clear anteriorly Abdomen: soft, nontender, nondistended, positive bowel sounds Extremities: no cyanosis or clubbing; no edema Skin: warm and dry Objective Data Vital Signs Vital Signs: Vital Signs Temp Pulse Resp BP Pulse Ox O2 Del Method 06/07/25 08:00 97.3 F L 94 170/90 H 99 Room Air 06/07/25 03:44 97.6 F 98 18 168/99 H 97 06/07/25 03:07 180/90 H 06/07/25 00:00 97.2 F L 64 20 200/90 H 96 06/06/25 21:24 117 H 06/06/25 20:00 Room Air 06/06/25 20:00 97.4 F L 117 H 18 137/67 100 Intake/Output Intake/Output: Intake & Output 06/04/25 06/05/25 06/06/25 06/07/25 23:59 23:59 23:59 23:59 Intake Total 535 1392 1410 870 Output Total 2325 700 1450 1400 Balance -1790 692 -40 -530 Meds/Results Medications: Active Medications Generic Name Dose Route Start Last Admin Trade Name Freq PRN Reason Stop Dose Admin Acetaminophen 650 mg 06/03/25 20:21 Acetaminophen 325 Mg Tablet PO Q6H PRN Mild Pain (1-3) or Fever Hydrocodone Bitart/Acetaminophen 1 tab 06/03/25 20:21 06/07/25 12:01 Hydrocodone/Acetaminophen (*Crx) 5-325 Mg Tablet PO 1 tab Q4H PRN Administration Pain Rated 4-6 Alteplase, Recombinant 2 mg 06/05/25 09:03 06/05/25 09:27 Alteplase 2 Mg Vial (Cathflo) IV PUSH 2 mg ONCE PRN Administration Line Occlusion Alteplase, Recombinant 2 mg 06/05/25 09:04 06/05/25 09:27 Alteplase 2 Mg Vial (Cathflo) IV PUSH 2 mg ONCE PRN Administration Line Occlusion Atorvastatin Calcium 20 mg 06/02/25 09:00 06/02/25 10:07 Atorvastatin 20 Mg Tablet BY MOUTH Not Given On Hold: 06/02/25 14:42 DAILY [facility] Bisacodyl 10 mg 06/02/25 03:32 Bisacodyl 10 Mg Suppository RECTAL DAILY PRN Constipation Clonidine HCl 0.3 mg 06/02/25 09:00 06/02/25 11:58 Clonidine Hcl 0.1 Mg Tablet BY MOUTH Not Given On Hold: 06/02/25 14:42 BID USAMA Dextrose 12.5 gm 06/02/25 03:31 Dextrose 50% 25 Gm/50 Ml Syringe IV PUSH PRN PRN Hypoglycemia Protocol Gabapentin 300 mg 06/02/25 09:00 06/02/25 10:07 Gabapentin 300 Mg Capsule PO Not Given On Hold: 06/02/25 14:42 DAILY [facility] Glucagon 1 mg 06/02/25 03:31 Glucagon For Inj 1 Mg Vial IM PRN PRN Hypoglycemia Protocol Glucose 15 gm 06/02/25 03:31 Glucose Oral Gel 15 Gm Of Glucse In 37.5 Gm Tube PO PRN PRN Hypoglycemia Protocol Heparin Sodium (Porcine) 5,000 units 06/02/25 22:00 06/07/25 14:41 Heparin Sodium 5,000 Units/Ml Vial SUB-Q 5,000 units Q8HR USAMA Administration Hydralazine HCl 25 mg 06/04/25 09:20 06/07/25 17:19 Hydralazine Hcl 25 Mg Tablet PO 25 mg Q6HR USAMA Administration Sodium Chloride 1,000 mls @ 75 mls/hr 06/02/25 03:30 06/02/25 04:14 Normal Saline Iv IV CONT 75 mls/hr On Hold: 06/02/25 10:04 .[id number] USAMA Administration Dextrose 1,000 mls @ 100 mls/hr 06/02/25 03:31 Dextrose 5% 1,000 Ml IVPB PRN PRN Hypoglycemia Protocol Metronidazole 500 mg in 100 mls @ 100 mls/hr 06/02/25 15:30 06/07/25 15:38 Flagyl 500 Mg/Iso Soln 100 Ml IVPB Infused Q8HR US[facility] Infusion Albumin Human 50 mls @ 999 mls/hr 06/03/25 08:37 Albutein IVPB 07/03/25 08:36 Q10M PRN HYPOTENSION Ceftriaxone Sodium 1 gm/ 50 mls @ 100 mls/hr 06/03/25 09:00 06/07/25 10:32 Sodium Chloride IVPB 100 mls/hr Q24H USAMA Administration Insulin Aspart 2 - 5 units 06/02/25 08:00 06/07/25 17:19 Insulin Aspart (*Bkc) 100 Units/Ml SUB-Q 4 units TIDWM USAMA Administration Protocol Isosorbide Mononitrate 30 mg 06/04/25 09:20 06/07/25 11:12 Isosorbide Mononitrate 30 Mg Tab.Er.24h PO Not Given QAM [facility] Metoprolol Tartrate 100 mg 06/02/25 09:00 06/07/25 12:01 Metoprolol Tartrate 50 Mg Tab BY MOUTH 100 mg Q12HR USAMA Administration Metoprolol Tartrate 5 mg 06/02/25 09:43 06/06/25 12:56 Metoprolol Tartrate Inj 5 Mg/5 Ml Vial IV PUSH 5 mg Q6H PRN Administration tachycardia >100 Nifedipine 30 mg 06/07/25 09:00 06/07/25 11:12 Nifedipine 30 Mg Tab.Er.24 PO Not Given [facility] [place] Pantoprazole Sodium 40 mg 06/02/25 09:00 06/02/25 10:07 Pantoprazole 40 Mg Tablet PO Not Given On Hold: 06/02/25 14:42 DAILY [facility] Radiology Results: ITS Impressions Chest/Abdomen/Pelvis CT 06/01/25 17:56 IMPRESSION: CHEST- 1. No acute findings. ABDOMEN/PELVIS- 1. Cystitis not excluded. 2. Mild colitis not excluded. 3. Otherwise no acute abnormality given noncontrast technique. Head CT 06/01/25 19:30 IMPRESSION: 1. No acute intracranial findings or change from prior exam. Chest X-Ray 06/05/25 14:07 Impression: No acute cardiopulmonary abnormality. Labs Labs: Laboratory Tests 06/07/25 05:26 06/07/25 05:26 Calcium 8.8 Phosphorus 1.9 L Magnesium 1.9 Total Bilirubin 0.5 AST 19 ALT 9 Alkaline Phosphatase 87 Total Protein 7.0 Albumin 3.5 Microbiology 06/01/25 16:14 Blood Blood Culture - Final 06/01/25 16:17 Blood Blood Culture - Final
[2025-06-07] MEDS: SODIUM CHLORIDE 0.9% IV 1,000 ML 75 ML IV CONT (10:30)
[2025-06-07] MEDS: cefTRIAXone 1 GM in SODIUM CHLORIDE 0.9% IV 50 ML 100 ML IVPB (10:32)
--- NOTE | 2025-06-07 11:05 | PC.NURSE ---
Patient refusing morning medication. Spitting them at me when attempting to administer. Unable to assess orientation as patient is being uncooperative. When attempting to educate patient she states, Leave me alone and Fuck you. Provider notified. IV hydralazine ordered 10mg one time since patient is not taking oral nifedipine.
[2025-06-07] MEDS: HYDROcodone/acetaminophen (*CRX) 5-325 MG TABLET 1 TAB PO ×2 (12:01→21:00)
[2025-06-07] MEDS: METOPROLOL TARTRATE 50 MG TAB 100 MG BY MOUTH ×2 (12:01→20:55)
--- NOTE | 2025-06-07 12:16 | PCNFU ---
Nutrition Follow-Up Complete: Severe protein calorie malnutrition related to chronic loss of appetite as evidenced by weight loss 13%/7 months, 7%/1 month; intakes <75% needs >1 month; moderate fat loss; severe muscle wasting Intakes >50% - Slow progress with goal. Continue with same goal Goal: Pt current nutrition is Diabetic consistent carb diet. Nepro BID (420 kcal, 19 g protein each). Nutrition recommendation: Consider liberalizing diet to Regular to encourage intake, change supplement to Ensure + HP BID Last recorded weight is 65.5 kg. Bowel Motility: No BMs are charted Labs Reviewed: Hgb 11.7, BUN 42, Cre 1.25, Glu 159, PO4 1.9 Meds Noted: NS, flagyl, protonix Skin: No skin issues Additional Notes: Intakes remain poor, 0-90%. Pt is refusing food and meds today. Had dialysis yesterday, labs are improving. May consider appetite stimulant medication if medically appropriate. Monitoring intakes, weights, labs, supplement intake, output, plan of care Follow up in 5 days
--- NOTE | 2025-06-07 14:51 | WPDINFPN2 ---
Progress Note: A&P Assessment and Plan (1) Severe sepsis: Code(s): A41.9 - Sepsis, unspecified organism; R65.20 - Severe sepsis without septic shock Status: Acute (2) Acute kidney injury: Code(s): N17.9 - Acute kidney failure, unspecified Status: Acute Assessment and Plan: -HD catheter placed on 06/03/25 -Acute HD management as per Nephrology service (3) Colitis: Code(s): K52.9 - Noninfective gastroenteritis and colitis, unspecified Status: Acute (4) Leukocytosis: Code(s): D72.829 - Elevated white blood cell count, unspecified Status: Acute Plan Continue ceftriaxone and Flagyl for now. Follow abdominal exam and white count trend. If no improvement or worsening WBC, consider repeat CT abdomen pelvis and also CT chest noncontrast. Monitor respiratory status. Discussed With at bedside. Will follow with any decisions regarding direction of care. Monitor for aspiration. Discussed with Nursing. - Patient was seen via video telehealth consultation with the assistance of staff. Chart, data, and patient independently reviewed. Patient was located at [facility] while I was located in my [place] office. Received verbal consent from patient. Subjective Date/time seen: 06/07/25 14:51 Interval history: Still fairly fatigued. Trial did do physical therapy earlier today. White blood cell count static. No witnessed aspiration. Was able to eat some lunch including some potato chips. at bedside. Exam Narrative: Awake. Flat affect. No accessory muscles for breathing noted. 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 Objective Data Vital Signs Vital Signs: Vital Signs - 24 hr 06/06/25 16:00 06/06/25 20:00 06/06/25 20:00 Temperature 36.4 C 36.3 C L Pulse Rate 122 H 117 H Respiratory Rate 18 18 Blood Pressure 143/88 H 137/67 Pulse Oximetry 98 100 Oxygen Delivery Room Air 06/06/25 21:24 06/07/25 00:00 06/07/25 03:07 Temperature 36.2 C L Pulse Rate 117 H 64 Respiratory Rate 20 Blood Pressure 200/90 H 180/90 H Pulse Oximetry 96 Oxygen Delivery 06/07/25 03:44 06/07/25 08:00 06/07/25 08:00 Temperature 36.4 C 36.3 C L Pulse Rate 98 94 Respiratory Rate 18 Blood Pressure 168/99 H 170/90 H Pulse Oximetry 97 99 Oxygen Delivery Room Air 06/07/25 11:18 06/07/25 12:01 Temperature 36.3 C L Pulse Rate 53 L 96 Respiratory Rate 16 Blood Pressure 172/86 H Pulse Oximetry 98 Oxygen Delivery Intake/Output Intake/Output: Intake & Output 06/04/25 06/05/25 06/06/25 06/07/25 23:59 23:59 23:59 23:59 Intake Total 535 1392 1410 420 Output Total 2325 700 1450 700 Balance -1790 692 -40 -280 Meds/Results Medications: Active Medications Generic Name Dose Route Start Last Admin Trade Name Freq PRN Reason Stop Dose Admin Acetaminophen 650 mg 06/03/25 20:21 Acetaminophen 325 Mg Tablet PO Q6H PRN Mild Pain (1-3) or Fever Hydrocodone Bitart/Acetaminophen 1 tab 06/03/25 20:21 06/07/25 12:01 Hydrocodone/Acetaminophen (*Crx) 5-325 Mg Tablet PO 1 tab Q4H PRN Administration Pain Rated 4-6 Alteplase, Recombinant 2 mg 06/05/25 09:03 06/05/25 09:27 Alteplase 2 Mg Vial (Cathflo) IV PUSH 2 mg ONCE PRN Administration Line Occlusion Alteplase, Recombinant 2 mg 06/05/25 09:04 06/05/25 09:27 Alteplase 2 Mg Vial (Cathflo) IV PUSH 2 mg ONCE PRN Administration Line Occlusion Atorvastatin Calcium 20 mg 06/02/25 09:00 06/02/25 10:07 Atorvastatin 20 Mg Tablet BY MOUTH Not Given On Hold: 06/02/25 14:42 DAILY USAMA Bisacodyl 10 mg 06/02/25 03:32 Bisacodyl 10 Mg Suppository RECTAL DAILY PRN Constipation Clonidine HCl 0.3 mg 06/02/25 09:00 06/02/25 11:58 Clonidine Hcl 0.1 Mg Tablet BY MOUTH Not Given On Hold: 06/02/25 14:42 BID USAMA Dextrose 12.5 gm 06/02/25 03:31 Dextrose 50% 25 Gm/50 Ml Syringe IV PUSH PRN PRN Hypoglycemia Protocol Gabapentin 300 mg 06/02/25 09:00 06/02/25 10:07 Gabapentin 300 Mg Capsule PO Not Given On Hold: 06/02/25 14:42 DAILY USAMA Glucagon 1 mg 06/02/25 03:31 Glucagon For Inj 1 Mg Vial IM PRN PRN Hypoglycemia Protocol Glucose 15 gm 06/02/25 03:31 Glucose Oral Gel 15 Gm Of Glucse In 37.5 Gm Tube PO PRN PRN Hypoglycemia Protocol Heparin Sodium (Porcine) 5,000 units 06/02/25 22:00 06/07/25 14:41 Heparin Sodium 5,000 Units/Ml Vial SUB-Q 5,000 units Q8HR USAMA Administration Hydralazine HCl 25 mg 06/04/25 09:20 06/07/25 12:00 Hydralazine Hcl 25 Mg Tablet PO Not Given Q6HR USAMA Sodium Chloride 1,000 mls @ 75 mls/hr 06/02/25 03:30 06/02/25 04:14 Normal Saline Iv IV CONT 75 mls/hr On Hold: 06/02/25 10:04 .[id number] USAMA Administration Dextrose 1,000 mls @ 100 mls/hr 06/02/25 03:31 Dextrose 5% 1,000 Ml IVPB PRN PRN Hypoglycemia Protocol Metronidazole 500 mg in 100 mls @ 100 mls/hr 06/02/25 15:30 06/07/25 14:38 Flagyl 500 Mg/Iso Soln 100 Ml IVPB 100 mls/hr Q8HR USAMA Administration Albumin Human 50 mls @ 999 mls/hr 06/03/25 08:37 Albutein IVPB 07/03/25 08:36 Q10M PRN HYPOTENSION Ceftriaxone Sodium 1 gm/ 50 mls @ 100 mls/hr 06/03/25 09:00 06/07/25 10:32 Sodium Chloride IVPB 100 mls/hr Q24H USAMA Administration Sodium Chloride 1,000 mls @ 75 mls/hr 06/07/25 10:15 06/07/25 10:30 Normal Saline Iv IV CONT 06/07/25 16:54 75 mls/hr .[id number] USAMA Administration Insulin Aspart 2 - 5 units 06/02/25 08:00 06/07/25 12:02 Insulin Aspart (*Bkc) 100 Units/Ml SUB-Q Not Given TIDWM USAMA Protocol Isosorbide Mononitrate 30 mg 06/04/25 09:20 10/06/25 11:12 Isosorbide Mononitrate 30 Mg Tab.Er.24h PO Not Given QAM [facility] Metoprolol Tartrate 100 mg 06/02/25 09:00 06/07/25 12:01 Metoprolol Tartrate 50 Mg Tab BY MOUTH 100 mg Q12HR USAMA Administration Metoprolol Tartrate 5 mg 06/02/25 09:43 06/06/25 12:56 Metoprolol Tartrate Inj 5 Mg/5 Ml Vial IV PUSH 5 mg Q6H PRN Administration tachycardia >100 Nifedipine 30 mg 06/07/25 09:00 06/07/25 11:12 Nifedipine 30 Mg Tab.Er.24 PO Not Given QAM [facility] Pantoprazole Sodium 40 mg 06/02/25 09:00 06/02/25 10:07 Pantoprazole 40 Mg Tablet PO Not Given On Hold: 06/02/25 14:42 DAILY [facility] Radiology Results: ITS Impressions Chest/Abdomen/Pelvis CT 06/01/25 17:56 IMPRESSION: CHEST- 1. No acute findings. ABDOMEN/PELVIS- 1. Cystitis not excluded. 2. Mild colitis not excluded. 3. Otherwise no acute abnormality given noncontrast technique. Head CT 06/01/25 19:30 IMPRESSION: 1. No acute intracranial findings or change from prior exam. Chest X-Ray 06/05/25 14:07 Impression: No acute cardiopulmonary abnormality. Labs Labs: Laboratory Results - last 24 hr 06/06/25 06/06/25 06/06/25 17:09 17:47 20:14 WBC RBC Hgb Hct MCV MCH MCHC RDW Plt Count MPV Immature Gran % (Auto) Neut % (Auto) Lymph % (Auto) [place] % (Auto) Eos % (Auto) Baso % (Auto) Lymph # (Auto) [place] # (Auto) Eos # (Auto) Baso # (Auto) Abs Immat Gran (auto) Absolute Neuts (auto) Absolute Nucleated RBC Nucleated RBC % Sodium Potassium 3.8 Chloride Carbon Dioxide Anion Gap BUN Creatinine Estim Creat Clear Calc Estimated GFR Glucose POC Capillary Glucose 268 H 146 H Calcium Phosphorus Magnesium Total Bilirubin AST ALT Alkaline Phosphatase Total Protein Albumin 06/07/25 06/07/25 06/07/25 05:26 08:18 11:29 WBC 23.1 H RBC 4.09 L Hgb 11.7 L Hct 37.4 MCV 91.4 MCH 28.6 MCHC 31.3 L RDW 13.9 Plt Count 276 MPV 10.7 H Immature Gran % (Auto) 1.7 H Neut % (Auto) 69.7 Lymph % (Auto) 18.3 [place] % (Auto) 9.1 H Eos % (Auto) 0.5 Baso % (Auto) 0.7 Lymph # (Auto) 4.21 H [place] # (Auto) 2.1 H Eos # (Auto) 0.1 Baso # (Auto) 0.2 H Abs Immat Gran (auto) 0.39 H Absolute Neuts (auto) 16.1 H Absolute Nucleated RBC 0.000 Nucleated RBC % 0.0 Sodium 137 Potassium 3.9 Chloride 104 Carbon Dioxide 23 Anion Gap 10 BUN 42 H Creatinine 1.25 H Estim Creat Clear Calc 32 Estimated GFR 42 L Glucose 159 H POC Capillary Glucose 161 H 169 H Calcium 8.8 Phosphorus 1.9 L Magnesium 1.9 Total Bilirubin 0.5 AST 19 ALT 9 Alkaline Phosphatase 87 Total Protein 7.0 Albumin 3.5
--- NOTE | 2025-06-07 15:23 | PCOTNOTE ---
Pt is lethargic and fatigued. Needs repeated cues to keep her eyes open. Pt declines any activity or attempt to get OOB at this time. Will continue to follow for OT evaluation.
[2025-06-07] MEDS: INSULIN ASPART (*BKC) 100 UNITS/ML SUB-Q (17:19)
[2025-06-08] VITALS (12 sets, daily range): BP systolic 107–192; BP diastolic 52–96; PULSE 70–84; RESP 14–20; TEMP 36.3–36.8; O2SAT 97–100
[2025-06-08 05:10] LABS: Hematocrit 35.5 % (37.0-47.0); Hemoglobin 11.1 g/dL (12.0-15.0); Mean Corpuscular HGB Conc 31.3 g/dl (32-36); Mean Corpuscular Hemoglobin 28.4 pg (26-34); Mean Corpuscular Volume 90.8 fl (80-100); Platelet Count Result 276 k/mm3 (150-375); Red Blood Count 3.91 M/mm3 (4.2-5.4); White Blood Count 22.6 K/mm3 (4.5-10.0)
[2025-06-08 05:40] LABS: Band Neutrophils Percent 2 % (0-6); Eosinophils Absolute Manual 0.67 K/mm3 (0.02-0.50); Eosinophils Percent Manual 3 % (0-4); Lymphocytes Absolute Manual 3.84 K/mm3 (1.1-4.5); Lymphocytes Percent Manual 17.0 % (18-44); Metamyelocytes Percent 1 %; Monocytes Absolute Manual 1.58 K/mm3 (0.1-0.90); Monocytes Percent Manual 7 % (3-9); Neutrophils Absolute Manual 16.27 K/mm3 (1.3-6.7); Neutrophils Percent Manual 70 % (46-73); Smudge Cells PRESENT; Total Cells Counted 100
[2025-06-08 05:41] LABS: Schistocytes None Seen
[2025-06-08 05:43] LABS: Alanine Aminotransferase 12 U/L (6-35); Albumin Level 3.3 g/dL (3.5-5.1); Alkaline Phosphatase 93 U/L (38-126); Anion Gap 7 mmol/L (4-12); Aspartate Amino Transferase 46 U/L (14-36); Bilirubin,Total 0.4 mg/dL (0.2-1.3); Blood Urea Nitrogen 45 mg/dL (7-17); Calcium 8.6 mg/dL (8.4-10.2); Carbon Dioxide 25 mmol/L (22-30); Chloride 102 mmol/L (98-107); Estimated CRCL calculation 35 ml/min; Estimated Glomerular Filt Rate 46; Glucose 208 mg/dL (65-110); Magnesium 1.7 mg/dL (1.6-2.3); Potassium 4.0 mmol/L (3.4-5.0); Sodium 134 mmol/L (137-145); Total Protein 6.7 g/dL (6.3-8.2)
[2025-06-08] MEDS: metroNIDAZOLE 500 MG/ISO 100ML 500 MG/100 ML BAG 100 MG IVPB (06:08)
[2025-06-08] MEDS: METOPROLOL TARTRATE 50 MG TAB 100 MG BY MOUTH ×2 (08:28→21:59)
[2025-06-08] MEDS: ISOSORBIDE MONONITRATE 30 MG TAB.ER.24H PO (08:28)
[2025-06-08] MEDS: cefTRIAXone 1 GM in SODIUM CHLORIDE 0.9% IV 50 ML 100 ML IVPB (08:29)
--- NOTE | 2025-06-08 08:44 | P.PNIM_ITS ---
Progress Note: A&P Assessment and Plan (1) RENEA (acute kidney injury): Code(s): N17.9 - Acute kidney failure, unspecified Status: Resolved Assessment and Plan: -the patient has acute on chronic renal failure with uremia -patient had a renal ultrasound on 04/27/2025: Trabeculated bladder appearance with thickening. Focal thickening more prominent superiorly on the right. Cannot exclude transitional cell carcinoma possibly superimposed on cystitis. Recommend urology consultation. -urology saw the patient on 04/27/2025 and noted no acute urological surgical intervention is indicated. It was noted that they will follow her peripherally. -continue with IV fluid -monitor BMP -today BUN is 42 and creatinine 1.25. Her BUN on 04/30/2025 was 28 with a creatinine 1.02. Continue dialysis per Nephrology Nephrology following (2) DM2 (diabetes mellitus, type 2): Qualifiers: Diabetes mellitus joint terminal attack controller insulin use: without senior care use Diabetes mellitus complication status: with hyperglycemia Qualified Code(s): E11.65 - Type 2 diabetes mellitus with hyperglycemia Code(s): E11.9 - Type 2 diabetes mellitus without complications Status: Chronic Assessment and Plan: -I am holding her p.o. medication. -sliding scale insulin -last A1c a couple days ago was 6.0. -her blood sugar was 169. (3) Essential (primary) hypertension: Code(s): I10 - Essential (primary) hypertension Status: Chronic Assessment and Plan: -blood pressure 170/90 -continue Metoprolol, Isosorbide mononitrate, Hydralazine and started on Nifedipinie today monitor (4) Congestive heart failure: Code(s): I50.9 - Heart failure, unspecified Status: Chronic Assessment and Plan: -continue with metoprolol -patient for josafatwv is currently on hold due to her acute renal failure. -echo showed left ventricular hypertrophy with hyperdynamic systolic -spironolactone on hold at this time. (5) Hyperlipidemia: Code(s): E78.5 - Hyperlipidemia, unspecified Status: Acute Assessment and Plan: -continue without atorvastatin and monitor liver enzymes (6) Generalized anxiety disorder: Code(s): F41.1 - Generalized anxiety disorder Status: Acute (7) Hyperkalemia: Code(s): E87.5 - Hyperkalemia Status: Acute Assessment and Plan: -most likely secondary to the acute kidney injury -she has also been on spironolactone which is now on hold. -the patient was given Lokelma in the emergency room. resolved Plan AMS from uremia, resolved improving with dialysis Pain medication and muscle relaxers held at this time due to her acute altered mental status. monitor Colitis CT AP reviewed Day 5 Rocephin and Flagyl Leukocytosis improving 23.1 from 29 500 cc NS to be given at 75cc/hr and monitor WBC monitor Cystitis per CT AP urine culture pending on Rocephin monitor Tachycardia, Resolved with restarting patient's home Metoprolol 100mg bid monitor Kidney failure resolving, resolution of Leukocytosis and possibel placement DVT prophylaxis on Sq heparin PT/OT eval for discharge planning Subjective Date/time seen: 06/08/25 08:44 Review of Systems Review of Systems: ROS unobtainable: Yes unobtainable due to medical condition and unobtainable due to mental status ENT: Reports Normal hearing present Neurologic: Reports Normal hearing present Exam Narrative: General: lethargic HEENT: Normocephalic. Atraumatic. Extraocular movement intact. Sclera clear and anicteric. No facial asymmetry. Chest: Lungs are coarse to auscultation bilaterally. CV: Heart was regular rate and rhythm. Abd: Abdomen was soft. Nontender. Nondistended. Positive bowel sounds. Ext: No clubbing, cyanosis, or edema. DP pulses bilaterally. Neuro: Patient is alert to voice and upon return able AOx1 (person), following some commands. 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 Skin: Warm and dry. No rashes or ulcers noted. Const: General: cooperative, no acute distress, well developed, awake, Physically active, average body habitus and well nourished Nutritional Appearance: average body habitus and well nourished Orientation/consciousness: oriented to person, oriented to place, oriented to time and patient oriented x3 HENMT: Head: normal to inspection, No palpable skull fracture present, normocephalic and atraumatic Ears: hearing grossly normal bilaterally Eyes: General: appearance normal, both eyes and all related structures Alignment and Position: alignment normal Periorbital: periorbital findings normal Eyelids: eyelids normal Pupils: Equal, round and reactive pupils present Neck: Neck: normal visual inspection and full ROM Chest: Chest palpation & inspection: normal inspection of the chest Resp: Effort & Inspection: normal respiratory effort Auscultation: clear to auscultation bilaterally Cardio: Palpation: normal PMI Rate: regular rate Rhythm: regular rhythm Heart sounds: S1 normal heart sound present and S2 normal heart sound present Peripheral pulses: Peripheral pulses 2+ throughout GI: Inspection: normal to inspection Auscultation: normal bowel sounds Rectal Exam: deferred Skin: General skin exam: normal color Lesions: no lesions Rashes: no rashes Trauma: no lacerations or abrasions Wounds: no wounds Hair: normal Nails: normal Neuro: General: oriented to person, oriented to place, oriented to time and patient oriented x3 Cranial nerves: Yes Equal, round and reactive pupils present and Yes Normal hearing present Cognition (Neuro): normal cognition Speech: normal speech Motor exam (neuro): 5/5 motor strength present throughout Sensory Exam: normal sensation Extrem: General: normal to inspection Right upper extremity: normal to inspection and shoulder/upper arm Left upper extremity: normal to inspection and shoulder/upper arm Right lower extremity: normal to inspection Left lower extremity: normal to inspection Psych: Mental Status: other Affect: normal affect Attitude: cooperative Objective Data Vital Signs Vital Signs: Vital Signs - 24 hr 06/07/25 11:18 06/07/25 12:01 06/07/25 16:00 Temperature 97.3 F L Pulse Rate 53 L 96 89 Respiratory Rate 16 Blood Pressure 172/86 H 140/71 Pulse Oximetry 98 100 Oxygen Delivery Fraction of Inspired Oxygen 06/07/25 20:00 06/07/25 20:00 06/07/25 20:55 Temperature 98.3 F Pulse Rate 85 85 Respiratory Rate 18 Blood Pressure 150/75 H Pulse Oximetry 98 Oxygen Delivery Room Air Fraction of Inspired Oxygen 06/07/25 21:30 06/07/25 23:51 06/08/25 04:00 Temperature 98.3 F 98.2 F Pulse Rate 79 83 Respiratory Rate 18 18 Blood Pressure 158/79 H 172/96 H Pulse Oximetry 97 97 97 Oxygen Delivery Room Air Fraction of Inspired Oxygen 21 06/08/25 06:09 06/08/25 08:00 06/08/25 08:28 Temperature 98.2 F 97.9 F Pulse Rate 80 84 84 Respiratory Rate 18 14 Blood Pressure 186/69 H 192/86 H Pulse Oximetry 99 99 Oxygen Delivery Fraction of Inspired Oxygen Intake/Output Intake/Output: Intake & Output 06/05/25 06/06/25 06/07/25 06/08/25 23:59 23:59 23:59 23:59 Intake Total 1392 1410 1520 Output Total 700 1450 1400 750 Balance 692 -40 120 -750 Meds/Results Medications: Active Medications Generic Name Dose Route Start Last Admin Trade Name Freq PRN Reason Stop Dose Admin Acetaminophen 650 mg 06/03/25 20:21 Acetaminophen 325 Mg Tablet PO Q6H PRN Mild Pain (1-3) or Fever Hydrocodone Bitart/Acetaminophen 1 tab 06/03/25 20:21 06/07/25 21:00 Hydrocodone/Acetaminophen (*Crx) 5-325 Mg Tablet PO 1 tab Q4H PRN Administration Pain Rated 4-6 Alteplase, Recombinant 2 mg 06/05/25 09:03 06/05/25 09:27 Alteplase 2 Mg Vial (Cathflo) IV PUSH 2 mg ONCE PRN Administration Line Occlusion Alteplase, Recombinant 2 mg 06/05/25 09:04 06/05/25 09:27 Alteplase 2 Mg Vial (Cathflo) IV PUSH 2 mg ONCE PRN Administration Line Occlusion Atorvastatin Calcium 20 mg 06/02/25 09:00 06/02/25 10:07 Atorvastatin 20 Mg Tablet BY MOUTH Not Given On Hold: 06/02/25 14:42 DAILY USAMA Bisacodyl 10 mg 06/02/25 03:32 Bisacodyl 10 Mg Suppository RECTAL DAILY PRN Constipation Clonidine HCl 0.3 mg 06/02/25 09:00 06/02/25 11:58 Clonidine Hcl 0.1 Mg Tablet BY MOUTH Not Given On Hold: 06/02/25 14:42 BID USAMA Dextrose 12.5 gm 06/02/25 03:31 Dextrose 50% 25 Gm/50 Ml Syringe IV PUSH PRN PRN Hypoglycemia Protocol Gabapentin 300 mg 06/02/25 09:00 06/02/25 10:07 Gabapentin 300 Mg Capsule PO Not Given On Hold: 06/02/25 14:42 DAILY USAMA Glucagon 1 mg 06/02/25 03:31 Glucagon For Inj 1 Mg Vial IM PRN PRN Hypoglycemia Protocol Glucose 15 gm 06/02/25 03:31 Glucose Oral Gel 15 Gm Of Glucse In 37.5 Gm Tube PO PRN PRN Hypoglycemia Protocol Heparin Sodium (Porcine) 5,000 units 06/02/25 22:00 06/08/25 06:08 Heparin Sodium 5,000 Units/Ml Vial SUB-Q 5,000 units Q8HR USAMA Administration Hydralazine HCl 25 mg 06/04/25 09:20 06/08/25 06:07 Hydralazine Hcl 25 Mg Tablet PO 25 mg Q6HR USAMA Administration Sodium Chloride 1,000 mls @ 75 mls/hr 06/02/25 03:30 06/02/25 04:14 Normal Saline Iv IV CONT 75 mls/hr On Hold: 06/02/25 10:04 .[id number] USAMA Administration Dextrose 1,000 mls @ 100 mls/hr 06/02/25 03:31 Dextrose 5% 1,000 Ml IVPB PRN PRN Hypoglycemia Protocol Metronidazole 500 mg in 100 mls @ 100 mls/hr 06/02/25 15:30 06/08/25 06:08 Flagyl 500 Mg/Iso Soln 100 Ml IVPB 100 mls/hr Q8HR USAMA Administration Albumin Human 50 mls @ 999 mls/hr 06/03/25 08:37 Albutein IVPB 07/03/25 08:36 Q10M PRN HYPOTENSION Ceftriaxone Sodium 1 gm/ 50 mls @ 100 mls/hr 06/03/25 09:00 06/08/25 08:29 Sodium Chloride IVPB 100 mls/hr Q24H USAMA Administration Insulin Aspart 2 - 5 units 06/02/25 08:00 06/08/25 08:25 Insulin Aspart (*Bkc) 100 Units/Ml SUB-Q Not Given TIDWM USAMA Protocol Isosorbide Mononitrate 30 mg 06/04/25 09:20 06/08/25 08:28 Isosorbide Mononitrate 30 Mg Tab.Er.24h PO 30 mg QAM USAMA Administration Metoprolol Tartrate 100 mg 06/02/25 09:00 06/08/25 08:28 Metoprolol Tartrate 50 Mg Tab BY MOUTH 100 mg Q12HR USAMA Administration Metoprolol Tartrate 5 mg 06/02/25 09:43 06/06/25 12:56 Metoprolol Tartrate Inj 5 Mg/5 Ml Vial IV PUSH 5 mg Q6H PRN Administration tachycardia >100 Nifedipine 30 mg 06/07/25 09:00 06/08/25 08:28 Nifedipine 30 Mg Tab.Er.24 PO 30 mg QAM USAMA Administration Pantoprazole Sodium 40 mg 06/02/25 09:00 06/02/25 10:07 Pantoprazole 40 Mg Tablet PO Not Given On Hold: 06/02/25 14:42 DAILY [facility] Radiology Results: ITS Impressions Chest/Abdomen/Pelvis CT 06/01/25 17:56 IMPRESSION: CHEST- 1. No acute findings. ABDOMEN/PELVIS- 1. Cystitis not excluded. 2. Mild colitis not excluded. 3. Otherwise no acute abnormality given noncontrast technique. Head CT 06/01/25 19:30 IMPRESSION: 1. No acute intracranial findings or change from prior exam. Chest X-Ray 06/05/25 14:07 Impression: No acute cardiopulmonary abnormality. Labs Labs: Laboratory Results - last 24 hr 06/07/25 06/07/25 06/07/25 11:29 16:27 19:41 WBC RBC Hgb Hct MCV MCH MCHC RDW Plt Count MPV Immature Gran % (Auto) Neut % (Auto) Lymph % (Auto) [place] % (Auto) Eos % (Auto) Baso % (Auto) Lymph # (Auto) [place] # (Auto) Eos # (Auto) Baso # (Auto) Abs Immat Gran (auto) Absolute Neuts (auto) Absolute Nucleated RBC Total Counted Neutrophils % (Manual) Band Neutrophils % Lymphocytes % (Manual) Monocytes % (Manual) Eosinophils % (Manual) Metamyelocytes % Nucleated RBC % Abs Neuts (Manual) Abs Lymphs (Manual) Abs Monocytes (Manual) Absolute Eos (Manual) Smudge Cells Platelet Estimate Schistocytes Sodium Potassium Chloride Carbon Dioxide Anion Gap BUN Creatinine Estim Creat Clear Calc Estimated GFR Glucose POC Capillary Glucose 169 H 307 H 284 H Calcium Magnesium Total Bilirubin AST ALT Alkaline Phosphatase Total Protein Albumin 06/08/25 05:00 WBC 22.6 H RBC 3.91 L Hgb 11.1 L Hct 35.5 L MCV 90.8 MCH 28.4 MCHC 31.3 L RDW 14.0 Plt Count 276 MPV 10.7 H Immature Gran % (Auto) Not Reportable Neut % (Auto) Not Reportable Lymph % (Auto) Not Reportable [place] % (Auto) Not Reportable Eos % (Auto) Not Reportable Baso % (Auto) Not Reportable Lymph # (Auto) Not Reportable [place] # (Auto) Not Reportable Eos # (Auto) Not Reportable Baso # (Auto) Not Reportable Abs Immat Gran (auto) Not Reportable Absolute Neuts (auto) Not Reportable Absolute Nucleated RBC Not Reportable Total Counted 100 Neutrophils % (Manual) 70 Band Neutrophils % 2 Lymphocytes % (Manual) 17.0 L Monocytes % (Manual) 7 Eosinophils % (Manual) 3 Metamyelocytes % 1 Nucleated RBC % Not Reportable Abs Neuts (Manual) 16.27 H Abs Lymphs (Manual) 3.84 Abs Monocytes (Manual) 1.58 H Absolute Eos (Manual) 0.67 H Smudge Cells Present Platelet Estimate Adequate Schistocytes None seen Sodium 134 L Potassium 4.0 Chloride 102 Carbon Dioxide 25 Anion Gap 7 BUN 45 H Creatinine 1.16 H Estim Creat Clear Calc 35 Estimated GFR 46 L Glucose 208 H POC Capillary Glucose Calcium 8.6 Magnesium 1.7 Total Bilirubin 0.4 AST 46 H ALT 12 Alkaline Phosphatase 93 Total Protein 6.7 Albumin 3.3 L Quality VTE Prophylaxis VTE prophylaxis: pharmacologic ordered
--- NOTE | 2025-06-08 10:16 | P.PNNP_ITS ---
Progress Note: A&P Assessment and Plan (1) Acute kidney injury: Code(s): N17.9 - Acute kidney failure, unspecified Status: Acute Assessment and Plan: * improvement noted/resolving * as noted by admission creatinine (6.31mg/dl) * creatinine 1.02mg/dl on discharge on 04/30/25 * etiology not clear -- infection/sepsis/SIRS, prerenal factors, other(?) * evaluation noted: * renal ultrasound a month ago noted * CT of A/P on this admission with no hydronephrosis * urine electrolytes prerenal (by FeUrea) * urine eosinophils negative * nephrotic range proteinuria (question validity since from starr catheter) * CPK low * questionable infection by UA * reasonable urine output noted * concern that altered mental status/encephalopathy may be due to uremia (BUN quite elevated)... * initiated on [facility] on 06/03 * received HD on 06/03, 06/04, and 06/05 (more so for clearance of uremic toxins) * HOLD dialysis for now * ok to remove temporary HD catheter from my perspective * follow trend of repeat labs and UOP (2) Hyperkalemia: Code(s): E87.5 - Hyperkalemia Status: Acute Assessment and Plan: * resolved * presumably due to JOSHUA in the context of spironolactone use and associated acidosis * s/p medical management * follow trend of K+ (3) Altered mental status: Qualifiers: Altered mental status type: unspecified Qualified Code(s): R41.82 - Altered mental status, unspecified Code(s): R41.82 - Altered mental status, unspecified Status: Acute Assessment and Plan: * slow improvement * apparently normal mentation at baseline (as noted by progress notes from last hospitalization) * possibly secondary to uremia versus underlying infecton (given elevated WBC) versus other(?) * follow mentation (4) Leukocytosis: Code(s): D72.829 - Elevated white blood cell count, unspecified Status: Acute Assessment and Plan: * concern is for possible infection/sepsis * no clear source at this time * colitis versus UTI? * follow culture data * Infectious Disease following * on antibiotics (5) Metabolic acidosis: Code(s): E87.20 - Acidosis, unspecified Status: Acute Assessment and Plan: * resolved * due to Joshua/ARF * initial lactic acidosis on admission likely contributing as well * lactic acid has normalized * corrected with dialysis * follow trend of CO2 (6) Congestive heart failure: Code(s): I50.9 - Heart failure, unspecified Status: Chronic Assessment and Plan: * reported history * appears compensated at this time * Echo (on 06/02) noted: * left ventricular systolic function is hyperdynamic, estimated at >70. There is mild concentric increased * left ventricular diastolic function is grade I diastolic dysfunction * mild aortic valve sclerosis * mitral valve annulus is severely calcified * mild tricuspid valve regurgitation * follow volume status (7) Essential (primary) hypertension: Code(s): I10 - Essential (primary) hypertension Status: Chronic Assessment and Plan: * fluctuating * restarted on home BP medications * holding spironolactone * follow trend of hemodynamics (8) DM2 (diabetes mellitus, type 2): Qualifiers: Diabetes mellitus complication status: with hyperglycemia Diabetes mellitus technical documentation specialist insulin use: without technical documentation specialist use Qualified Code(s): E11.65 - Type 2 diabetes mellitus with hyperglycemia Code(s): E11.9 - Type 2 diabetes mellitus without complications Status: Chronic Assessment and Plan: * follow accu-cheks * glycemic control per hospitalist Not much else to add - will continue to follow from a distance. L Subjective Date/time seen: 06/08/25 10:16 Interval history: Follow-up for acute kidney injury/acute renal failure. Renal function/creatinine continues to improve as noted by trend of labs with adequate urine output noted; still with noted leukocytosis; no apparent distress noted at the time of my visit. Exam 2 Narrative: General: elderly but WD/WN female in NAD Heart: normal S1 and S2; no rub Lungs: clear anteriorly Abdomen: soft, nontender, nondistended, positive bowel sounds Extremities: no cyanosis or clubbing; no edema Skin: warm and intact Objective Data Vital Signs Vital Signs: Vital Signs Temp Pulse Resp BP Pulse Ox O2 Del Method FiO2 06/08/25 08:33 Room Air 06/08/25 08:30 100 Room Air 06/08/25 08:28 84 06/08/25 08:00 97.9 F 84 14 192/86 H 99 06/08/25 06:09 98.2 F 80 18 186/69 H 99 06/08/25 04:00 98.2 F 83 18 172/96 H 97 06/07/25 23:51 98.3 F 79 18 158/79 H 97 06/07/25 21:30 97 Room Air 21 06/07/25 20:55 85 06/07/25 20:00 Room Air 06/07/25 20:00 98.3 F 85 18 150/75 H 98 06/07/25 16:00 89 140/71 100 Intake/Output Intake/Output: Intake & Output 06/05/25 06/06/25 06/07/25 06/08/25 23:59 23:59 23:59 23:59 Intake Total 1392 1410 1520 390 Output Total 700 1450 1400 1450 Balance 692 -40 120 -1060 Meds/Results Medications: Active Medications Generic Name Dose Route Start Last Admin Trade Name Freq PRN Reason Stop Dose Admin Acetaminophen 650 mg 06/03/25 20:21 Acetaminophen 325 Mg Tablet PO Q6H PRN Mild Pain (1-3) or Fever Hydrocodone Bitart/Acetaminophen 1 tab 06/03/25 20:21 06/08/25 12:36 Hydrocodone/Acetaminophen (*Crx) 5-325 Mg Tablet PO 1 tab Q4H PRN Administration Pain Rated 4-6 Alteplase, Recombinant 2 mg 06/05/25 09:03 06/05/25 09:27 Alteplase 2 Mg Vial (Cathflo) IV PUSH 2 mg ONCE PRN Administration Line Occlusion Alteplase, Recombinant 2 mg 06/05/25 09:04 06/05/25 09:27 Alteplase 2 Mg Vial (Cathflo) IV PUSH 2 mg ONCE PRN Administration Line Occlusion Atorvastatin Calcium 20 mg 06/02/25 09:00 06/02/25 10:07 Atorvastatin 20 Mg Tablet BY MOUTH Not Given On Hold: 06/02/25 14:42 DAILY USAMA Bisacodyl 10 mg 06/02/25 03:32 Bisacodyl 10 Mg Suppository RECTAL DAILY PRN Constipation Clonidine HCl 0.3 mg 06/02/25 09:00 06/02/25 11:58 Clonidine Hcl 0.1 Mg Tablet BY MOUTH Not Given On Hold: 06/02/25 14:42 BID USAMA Dextrose 12.5 gm 06/02/25 03:31 Dextrose 50% 25 Gm/50 Ml Syringe IV PUSH PRN PRN Hypoglycemia Protocol Gabapentin 300 mg 06/02/25 09:00 06/02/25 10:07 Gabapentin 300 Mg Capsule PO Not Given On Hold: 06/02/25 14:42 DAILY US[facility] Glucagon 1 mg 06/02/25 03:31 Glucagon For Inj 1 Mg Vial IM PRN PRN Hypoglycemia Protocol Glucose 15 gm 06/02/25 03:31 Glucose Oral Gel 15 Gm Of Glucse In 37.5 Gm Tube PO PRN PRN Hypoglycemia Protocol Heparin Sodium (Porcine) 5,000 units 06/02/25 22:00 06/08/25 06:08 Heparin Sodium 5,000 Units/Ml Vial SUB-Q 5,000 units Q8HR USAMA Administration Hydralazine HCl 25 mg 06/04/25 09:20 06/08/25 12:08 Hydralazine Hcl 25 Mg Tablet PO 25 mg Q6HR USAMA Administration Sodium Chloride 1,000 mls @ 75 mls/hr 06/02/25 03:30 06/02/25 04:14 Normal Saline Iv IV CONT 75 mls/hr On Hold: 06/02/25 10:04 .[id number] USAMA Administration Dextrose 1,000 mls @ 100 mls/hr 06/02/25 03:31 Dextrose 5% 1,000 Ml IVPB PRN PRN Hypoglycemia Protocol Metronidazole 500 mg in 100 mls @ 100 mls/hr 06/02/25 15:30 06/08/25 07:10 Flagyl 500 Mg/Iso Soln 100 Ml IVPB Infused Q8HR USAMA Infusion Albumin Human 50 mls @ 999 mls/hr 06/03/25 08:37 Albutein IVPB 07/03/25 08:36 Q10M PRN HYPOTENSION Ceftriaxone Sodium 1 gm/ 50 mls @ 100 mls/hr 06/03/25 09:00 06/08/25 09:00 Sodium Chloride IVPB Infused Q24H USAMA Infusion Insulin Aspart 2 - 5 units 06/02/25 08:00 06/08/25 12:09 Insulin Aspart (*Bkc) 100 Units/Ml SUB-Q 4 units TIDWM USAMA Administration Protocol Isosorbide Mononitrate 30 mg 06/04/25 09:20 06/08/25 08:28 Isosorbide Mononitrate 30 Mg Tab.Er.24h PO 30 mg QAM USAMA Administration Metoprolol Tartrate 100 mg 06/02/25 09:00 06/08/25 08:28 Metoprolol Tartrate 50 Mg Tab BY MOUTH 100 mg Q12HR USAMA Administration Metoprolol Tartrate 5 mg 06/02/25 09:43 06/06/25 12:56 Metoprolol Tartrate Inj 5 Mg/5 Ml Vial IV PUSH 5 mg Q6H PRN Administration tachycardia >100 Nifedipine 30 mg 06/07/25 09:00 06/08/25 08:28 Nifedipine 30 Mg Tab.Er.24 PO 30 mg QAM USAMA Administration Pantoprazole Sodium 40 mg 06/02/25 09:00 06/02/25 10:07 Pantoprazole 40 Mg Tablet PO Not Given On Hold: 06/02/25 14:42 DAILY [facility] Radiology Results: ITS Impressions Chest/Abdomen/Pelvis CT 06/01/25 17:56 IMPRESSION: CHEST- 1. No acute findings. ABDOMEN/PELVIS- 1. Cystitis not excluded. 2. Mild colitis not excluded. 3. Otherwise no acute abnormality given noncontrast technique. Head CT 06/01/25 19:30 IMPRESSION: 1. No acute intracranial findings or change from prior exam. Chest X-Ray 06/05/25 14:07 Impression: No acute cardiopulmonary abnormality. Labs Labs: Laboratory Tests 06/08/25 05:00 06/08/25 05:00 Calcium 8.6 Magnesium 1.7 Total Bilirubin 0.4 AST 46 H ALT 12 Alkaline Phosphatase 93 Total Protein 6.7 Albumin 3.3 L Microbiology 06/01/25 16:14 Blood Blood Culture - Final 06/01/25 16:17 Blood Blood Culture - Final
--- NOTE | 2025-06-08 11:01 | P.PNINF_ITS ---
Progress Note: A&P Assessment and Plan (1) Severe sepsis: Code(s): A41.9 - Sepsis, unspecified organism; R65.20 - Severe sepsis without septic shock Status: Acute (2) Acute kidney injury: Code(s): N17.9 - Acute kidney failure, unspecified Status: Acute Assessment and Plan: -HD catheter placed on 06/03/25 -Acute HD management as per Nephrology service (3) Colitis: Code(s): K52.9 - Noninfective gastroenteritis and colitis, unspecified Status: Acute (4) Leukocytosis: Code(s): D72.829 - Elevated white blood cell count, unspecified Status: Acute Plan Continue ceftriaxone and Flagyl for now. With minimal improvement in leukocytosis would proceed with repeating CT abdomen / pelvis as well as CT of chest, noncontrast. Will follow with any decisions regarding direction of care. Patient was seen via video telehealth consultation with the assistance of staff. Chart, data, and patient independently reviewed. Patient was located at [facility] while I was located in my [place] office. Received verbal consent from patient. Subjective Date/time seen: 06/08/25 11:01 Interval history: 06/08/2025: Afebrile and without tachycardia, tachypnea, or hypotension. Tolerating room air. Little change in the white blood cell count which currently is 22.6. Creatinine slightly decreased to 1.16. Complaining that her bilateral leg sequential compression devices are not allowing her to skin to breathe. Also complaining of right arm Kerlix wrap irritation. Overall, improved today. Review of Systems Review of Systems: All systems reviewed & are unremarkable except as noted in HPI and below Exam Narrative: Awake. Slightly more animated today and less altered. No accessory muscles for breathing noted. She denies diarrhea. No rash. Objective Data Vital Signs Vital Signs: Vital Signs - 24 hr 06/07/25 11:18 06/07/25 12:01 06/07/25 16:00 Temperature 97.3 F L Pulse Rate 53 L 96 89 Respiratory Rate 16 Blood Pressure 172/86 H 140/71 Pulse Oximetry 98 100 Oxygen Delivery Fraction of Inspired Oxygen 06/07/25 20:00 06/07/25 20:00 06/07/25 20:55 Temperature 98.3 F Pulse Rate 85 85 Respiratory Rate 18 Blood Pressure 150/75 H Pulse Oximetry 98 Oxygen Delivery Room Air Fraction of Inspired Oxygen 06/07/25 21:30 06/07/25 23:51 06/08/25 04:00 Temperature 98.3 F 98.2 F Pulse Rate 79 83 Respiratory Rate 18 18 Blood Pressure 158/79 H 172/96 H Pulse Oximetry 97 97 97 Oxygen Delivery Room Air Fraction of Inspired Oxygen 21 06/08/25 06:09 06/08/25 08:00 06/08/25 08:28 Temperature 98.2 F 97.9 F Pulse Rate 80 84 84 Respiratory Rate 18 14 Blood Pressure 186/69 H 192/86 H Pulse Oximetry 99 99 Oxygen Delivery Fraction of Inspired Oxygen 06/08/25 08:33 Temperature Pulse Rate Respiratory Rate Blood Pressure Pulse Oximetry Oxygen Delivery Room Air Fraction of Inspired Oxygen Intake/Output Intake/Output: Intake & Output 06/05/25 06/06/25 06/07/25 06/08/25 23:59 23:59 23:59 23:59 Intake Total 1392 1410 1520 390 Output Total 700 1450 1400 1450 Balance 692 -40 120 -1060 Meds/Results Medications: Active Medications Generic Name Dose Route Start Last Admin Trade Name Freq PRN Reason Stop Dose Admin Acetaminophen 650 mg 06/03/25 20:21 Acetaminophen 325 Mg Tablet PO Q6H PRN Mild Pain (1-3) or Fever Hydrocodone Bitart/Acetaminophen 1 tab 06/03/25 20:21 06/07/25 21:00 Hydrocodone/Acetaminophen (*Crx) 5-325 Mg Tablet PO 1 tab Q4H PRN Administration Pain Rated 4-6 Alteplase, Recombinant 2 mg 06/05/25 09:03 06/05/25 09:27 Alteplase 2 Mg Vial (Cathflo) IV PUSH 2 mg ONCE PRN Administration Line Occlusion Alteplase, Recombinant 2 mg 06/05/25 09:04 06/05/25 09:27 Alteplase 2 Mg Vial (Cathflo) IV PUSH 2 mg ONCE PRN Administration Line Occlusion Atorvastatin Calcium 20 mg 06/02/25 09:00 06/02/25 10:07 Atorvastatin 20 Mg Tablet BY MOUTH Not Given On Hold: 06/02/25 14:42 DAILY [facility] Bisacodyl 10 mg 06/02/25 03:32 Bisacodyl 10 Mg Suppository RECTAL DAILY PRN Constipation Clonidine HCl 0.3 mg 06/02/25 09:00 06/02/25 11:58 Clonidine Hcl 0.1 Mg Tablet BY MOUTH Not Given On Hold: 06/02/25 14:42 BID USAMA Dextrose 12.5 gm 06/02/25 03:31 Dextrose 50% 25 Gm/50 Ml Syringe IV PUSH PRN PRN Hypoglycemia Protocol Gabapentin 300 mg 06/02/25 09:00 06/02/25 10:07 Gabapentin 300 Mg Capsule PO Not Given On Hold: 06/02/25 14:42 DAILY [facility] Glucagon 1 mg 06/02/25 03:31 Glucagon For Inj 1 Mg Vial IM PRN PRN Hypoglycemia Protocol Glucose 15 gm 06/02/25 03:31 Glucose Oral Gel 15 Gm Of Glucse In 37.5 Gm Tube PO PRN PRN Hypoglycemia Protocol Heparin Sodium (Porcine) 5,000 units 06/02/25 22:00 06/08/25 06:08 Heparin Sodium 5,000 Units/Ml Vial SUB-Q 5,000 units Q8HR USAMA Administration Hydralazine HCl 25 mg 06/04/25 09:20 06/08/25 06:07 Hydralazine Hcl 25 Mg Tablet PO 25 mg Q6HR USAMA Administration Sodium Chloride 1,000 mls @ 75 mls/hr 06/02/25 03:30 06/02/25 04:14 Normal Saline Iv IV CONT 75 mls/hr On Hold: 06/02/25 10:04 .[id number] USAMA Administration Dextrose 1,000 mls @ 100 mls/hr 06/02/25 03:31 Dextrose 5% 1,000 Ml IVPB PRN PRN Hypoglycemia Protocol Metronidazole 500 mg in 100 mls @ 100 mls/hr 06/02/25 15:30 06/08/25 07:10 Flagyl 500 Mg/Iso Soln 100 Ml IVPB Infused Q8HR US[facility] Infusion Albumin Human 50 mls @ 999 mls/hr 06/03/25 08:37 Albutein IVPB 07/03/25 08:36 Q10M PRN HYPOTENSION Ceftriaxone Sodium 1 gm/ 50 mls @ 100 mls/hr 06/03/25 09:00 06/08/25 09:00 Sodium Chloride IVPB Infused Q24H USAMA Infusion Insulin Aspart 2 - 5 units 06/02/25 08:00 06/08/25 08:25 Insulin Aspart (*Bkc) 100 Units/Ml SUB-Q Not Given TIDWM [facility] Protocol Isosorbide Mononitrate 30 mg 06/04/25 09:20 06/08/25 08:28 Isosorbide Mononitrate 30 Mg Tab.Er.24h PO 30 mg QAM USAMA Administration Metoprolol Tartrate 100 mg 06/02/25 09:00 06/08/25 08:28 Metoprolol Tartrate 50 Mg Tab BY MOUTH 100 mg Q12HR USAMA Administration Metoprolol Tartrate 5 mg 06/02/25 09:43 06/06/25 12:56 Metoprolol Tartrate Inj 5 Mg/5 Ml Vial IV PUSH 5 mg Q6H PRN Administration tachycardia >100 Nifedipine 30 mg 06/07/25 09:00 06/08/25 08:28 Nifedipine 30 Mg Tab.Er.24 PO 30 mg QAM [facility] Administration Pantoprazole Sodium 40 mg 06/02/25 09:00 06/02/25 10:07 Pantoprazole 40 Mg Tablet PO Not Given On Hold: 06/02/25 14:42 DAILY [facility] Radiology Results: ITS Impressions Chest/Abdomen/Pelvis CT 06/01/25 17:56 IMPRESSION: CHEST- 1. No acute findings. ABDOMEN/PELVIS- 1. Cystitis not excluded. 2. Mild colitis not excluded. 3. Otherwise no acute abnormality given noncontrast technique. Head CT 06/01/25 19:30 IMPRESSION: 1. No acute intracranial findings or change from prior exam. Chest X-Ray 06/05/25 14:07 Impression: No acute cardiopulmonary abnormality. Labs Labs: Laboratory Results - last 24 hr 06/07/25 06/07/25 06/07/25 11:29 16:27 19:41 WBC RBC Hgb Hct MCV MCH MCHC RDW Plt Count MPV Immature Gran % (Auto) Neut % (Auto) Lymph % (Auto) Starke % (Auto) Eos % (Auto) Baso % (Auto) Lymph # (Auto) Starke # (Auto) Eos # (Auto) Baso # (Auto) Abs Immat Gran (auto) Absolute Neuts (auto) Absolute Nucleated RBC Total Counted Neutrophils % (Manual) Band Neutrophils % Lymphocytes % (Manual) Monocytes % (Manual) Eosinophils % (Manual) Metamyelocytes % Nucleated RBC % Abs Neuts (Manual) Abs Lymphs (Manual) Abs Monocytes (Manual) Absolute Eos (Manual) Smudge Cells Platelet Estimate Schistocytes Sodium Potassium Chloride Carbon Dioxide Anion Gap BUN Creatinine Estim Creat Clear Calc Estimated GFR Glucose POC Capillary Glucose 169 H 307 H 284 H Calcium Magnesium Total Bilirubin AST ALT Alkaline Phosphatase Total Protein Albumin 06/08/25 05:00 WBC 22.6 H RBC 3.91 L Hgb 11.1 L Hct 35.5 L MCV 90.8 MCH 28.4 MCHC 31.3 L RDW 14.0 Plt Count 276 MPV 10.7 H Immature Gran % (Auto) Not Reportable Neut % (Auto) Not Reportable Lymph % (Auto) Not Reportable Starke % (Auto) Not Reportable Eos % (Auto) Not Reportable Baso % (Auto) Not Reportable Lymph # (Auto) Not Reportable Starke # (Auto) Not Reportable Eos # (Auto) Not Reportable Baso # (Auto) Not Reportable Abs Immat Gran (auto) Not Reportable Absolute Neuts (auto) Not Reportable Absolute Nucleated RBC Not Reportable Total Counted 100 Neutrophils % (Manual) 70 Band Neutrophils % 2 Lymphocytes % (Manual) 17.0 L Monocytes % (Manual) 7 Eosinophils % (Manual) 3 Metamyelocytes % 1 Nucleated RBC % Not Reportable Abs Neuts (Manual) 16.27 H Abs Lymphs (Manual) 3.84 Abs Monocytes (Manual) 1.58 H Absolute Eos (Manual) 0.67 H Smudge Cells Present Platelet Estimate Adequate Schistocytes None seen Sodium 134 L Potassium 4.0 Chloride 102 Carbon Dioxide 25 Anion Gap 7 BUN 45 H Creatinine 1.16 H Estim Creat Clear Calc 35 Estimated GFR 46 L Glucose 208 H POC Capillary Glucose Calcium 8.6 Magnesium 1.7 Total Bilirubin 0.4 AST 46 H ALT 12 Alkaline Phosphatase 93 Total Protein 6.7 Albumin 3.3 L
[2025-06-08] MEDS: INSULIN ASPART (*BKC) 100 UNITS/ML SUB-Q ×2 (12:09→22:00)
[2025-06-08] MEDS: HYDROcodone/acetaminophen (*CRX) 5-325 MG TABLET 1 TAB PO (12:36)
[2025-06-08] MEDS: MEROPENEM 1 GM in SODIUM CHLORIDE 0.9% IV 100 ML 200 ML IVPB (14:41)
--- NOTE | 2025-06-08 15:05 | P.PNIM_ITS ---
Progress Note: A&P Assessment and Plan (1) RENEA (acute kidney injury): Code(s): N17.9 - Acute kidney failure, unspecified Status: Resolved Assessment and Plan: -the patient has acute on chronic renal failure with uremia -patient had a renal ultrasound on 04/27/2025: Trabeculated bladder appearance with thickening. Focal thickening more prominent superiorly on the right. Cannot exclude transitional cell carcinoma possibly superimposed on cystitis. Recommend urology consultation. -urology saw the patient on 04/27/2025 and noted no acute urological surgical intervention is indicated. It was noted that they will follow her peripherally. -continue with IV fluid -monitor BMP -today BUN/Cr is 45/1.16 . Her BUN on 06/07/25 was 42 and creatinine 1.25 Dialysis on hold per Nephrology - Cr improving. Dialysis catheter ok to be removed with following of daily labs per nephrology. Sepsis or prerenal causes being considered as etiology of RENEA. Associated metabolic acidosis has also resolved. 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 medication. -sliding scale insulin -last A1c a couple days ago was 6.0. -her blood sugar was 208 at 0500 today. (3) Essential (primary) hypertension: Code(s): I10 - Essential (primary) hypertension Status: Chronic Assessment and Plan: -blood pressure 170/70 -continue Metoprolol, Isosorbide mononitrate, Hydralazine and Nifedipine monitor (4) Congestive heart failure: Code(s): I50.9 - Heart failure, unspecified Status: Chronic Assessment and Plan: -continue with metoprolol -[place] is currently on hold due to her acute renal failure. -echo showed left ventricular hypertrophy with hyperdynamic systolic -spironolactone on hold at this time. (5) Hyperlipidemia: Code(s): E78.5 - Hyperlipidemia, unspecified Status: Acute Assessment and Plan: -continue without atorvastatin and monitor liver enzymes (6) Generalized anxiety disorder: Code(s): F41.1 - Generalized anxiety disorder Status: Acute (7) Hyperkalemia: Code(s): E87.5 - Hyperkalemia Status: Acute Assessment and Plan: -most likely secondary to the acute kidney injury -she has also been on spironolactone which is now on hold. -the patient was given Lokelma in the emergency room. resolved (8) Leukocytosis: Code(s): D72.829 - Elevated white blood cell count, unspecified Status: Acute Assessment and Plan: In setting of severe sepsis w/o septic shock Seen by ID- Leukocytosis minimally improved, repeat CT A/P recommended with CT Chest w/o contrast. (9) Altered mental status: Qualifiers: Altered mental status type: unspecified Qualified Code(s): R41.82 - Altered mental status, unspecified Code(s): R41.82 - Altered mental status, unspecified Status: Acute Assessment and Plan: Suspected to be secondary to sepsis/RENEA- still not fully alert and oriented, but this appears to be improving. Continuing to monitor in association with improvement of suspected etiologies. Plan AMS from uremia, resolved improving with dialysis Pain medication and muscle relaxers held at this time due to her acute altered mental status. monitor Colitis CT AP reviewed Rocephin and Flagyl discontinued 06/08, meropenem started 06/08 Leukocytosis improving 22.6 from 29 500 cc NS to be given at 75cc/hr and monitor WBC monitor Cystitis per CT AP urine culture (06/02) pending off Rocephin, on meropenem monitor Tachycardia Resolved with restarting patient's home Metoprolol 100mg bid monitor Kidney failure resolving, resolution of Leukocytosis and possible placement DVT prophylaxis on Sq heparin PT/OT eval for discharge planning Subjective Date/time seen: 06/08/25 15:05 Review of Systems Review of Systems: ROS unobtainable: Yes unobtainable due to medical condition and unobtainable due to mental status ENT: Reports Normal hearing present Neurologic: Reports Normal hearing present Exam Narrative: General: lethargic HEENT: Normocephalic. Atraumatic. Extraocular movement intact. Sclera clear and anicteric. No facial asymmetry. Chest: Lungs are coarse to auscultation bilaterally. CV: Heart was regular rate and rhythm. Abd: Abdomen was soft. Nontender. Nondistended. Positive bowel sounds. Ext: No clubbing, cyanosis, or edema. DP pulses bilaterally. Neuro: Patient is alert to voice and upon return able AOx1 (person), following some commands. 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 Skin: Warm and dry. No rashes or ulcers noted. Const: General: cooperative, no acute distress, well developed, awake, Physically active, average body habitus and well nourished Nutritional Appearance: average body habitus and well nourished Orientation/consciousness: oriented to person, oriented to place, oriented to time and patient oriented x3 HENMT: Head: normal to inspection, No palpable skull fracture present, normocephalic and atraumatic Ears: hearing grossly normal bilaterally Eyes: General: appearance normal, both eyes and all related structures Alignment and Position: alignment normal Periorbital: periorbital findings normal Eyelids: eyelids normal Pupils: Equal, round and reactive pupils present Neck: Neck: normal visual inspection and full ROM Chest: Chest palpation & inspection: normal inspection of the chest Resp: Effort & Inspection: normal respiratory effort Auscultation: clear to auscultation bilaterally Cardio: Palpation: normal PMI Rate: regular rate Rhythm: regular rhythm Heart sounds: S1 normal heart sound present and S2 normal heart sound present Peripheral pulses: Peripheral pulses 2+ throughout GI: Inspection: normal to inspection Auscultation: normal bowel sounds Rectal Exam: deferred Skin: General skin exam: normal color Lesions: no lesions Rashes: no rashes Trauma: no lacerations or abrasions Wounds: no wounds Hair: normal Nails: normal Neuro: General: oriented to person, oriented to place, oriented to time and patient oriented x3 Cranial nerves: Yes Equal, round and reactive pupils present and Yes Normal hearing present Cognition (Neuro): normal cognition Speech: normal speech Motor exam (neuro): 5/5 motor strength present throughout Sensory Exam: normal sensation Extrem: General: normal to inspection Right upper extremity: normal to inspection and shoulder/upper arm Left upper extremity: normal to inspection and shoulder/upper arm Right lower extremity: normal to inspection Left lower extremity: normal to inspection Psych: Mental Status: other Affect: normal affect Attitude: cooperative Objective Data Vital Signs Vital Signs: Vital Signs - 24 hr 06/07/25 16:00 06/07/25 20:00 06/07/25 20:00 Temperature 98.3 F Pulse Rate 89 85 Respiratory Rate 18 Blood Pressure 140/71 150/75 H Pulse Oximetry 100 98 Oxygen Delivery Room Air Fraction of Inspired Oxygen 06/07/25 20:55 06/07/25 21:30 06/07/25 23:51 Temperature 98.3 F Pulse Rate 85 79 Respiratory Rate 18 Blood Pressure 158/79 H Pulse Oximetry 97 97 Oxygen Delivery Room Air Fraction of Inspired Oxygen 21 06/08/25 04:00 06/08/25 06:09 06/08/25 08:00 Temperature 98.2 F 98.2 F 97.9 F Pulse Rate 83 80 84 Respiratory Rate 18 18 14 Blood Pressure 172/96 H 186/69 H 192/86 H Pulse Oximetry 97 99 99 Oxygen Delivery Fraction of Inspired Oxygen 06/08/25 08:28 06/08/25 08:30 06/08/25 08:33 Temperature Pulse Rate 84 Respiratory Rate Blood Pressure Pulse Oximetry 100 Oxygen Delivery Room Air Room Air Fraction of Inspired Oxygen 06/08/25 12:00 Temperature 97.7 F Pulse Rate 71 Respiratory Rate 14 Blood Pressure 170/71 H Pulse Oximetry 99 Oxygen Delivery Fraction of Inspired Oxygen Intake/Output Intake/Output: Intake & Output 06/05/25 06/06/25 06/07/25 06/08/25 23:59 23:59 23:59 23:59 Intake Total 1392 1410 1520 390 Output Total 700 1450 1400 1450 Balance 692 -40 120 -1060 Meds/Results Medications: Active Medications Generic Name Dose Route Start Last Admin Trade Name Freq PRN Reason Stop Dose Admin Acetaminophen 650 mg 06/03/25 20:21 Acetaminophen 325 Mg Tablet PO Q6H PRN Mild Pain (1-3) or Fever Hydrocodone Bitart/Acetaminophen 1 tab 06/03/25 20:21 06/08/25 12:36 Hydrocodone/Acetaminophen (*Crx) 5-325 Mg Tablet PO 1 tab Q4H PRN Administration Pain Rated 4-6 Alteplase, Recombinant 2 mg 06/05/25 09:03 06/05/25 09:27 Alteplase 2 Mg Vial (Cathflo) IV PUSH 2 mg ONCE PRN Administration Line Occlusion Alteplase, Recombinant 2 mg 06/05/25 09:04 06/05/25 09:27 Alteplase 2 Mg Vial (Cathflo) IV PUSH 2 mg ONCE PRN Administration Line Occlusion Atorvastatin Calcium 20 mg 06/02/25 09:00 06/02/25 10:07 Atorvastatin 20 Mg Tablet BY MOUTH Not Given On Hold: 06/02/25 14:42 DAILY USAMA Bisacodyl 10 mg 06/02/25 03:32 Bisacodyl 10 Mg Suppository RECTAL DAILY PRN Constipation Clonidine HCl 0.3 mg 06/02/25 09:00 06/02/25 11:58 Clonidine Hcl 0.1 Mg Tablet BY MOUTH Not Given On Hold: 06/02/25 14:42 BID USAMA Dextrose 12.5 gm 06/02/25 03:31 Dextrose 50% 25 Gm/50 Ml Syringe IV PUSH PRN PRN Hypoglycemia Protocol Gabapentin 300 mg 06/02/25 09:00 06/02/25 10:07 Gabapentin 300 Mg Capsule PO Not Given On Hold: 06/02/25 14:42 DAILY USAMA Glucagon 1 mg 06/02/25 03:31 Glucagon For Inj 1 Mg Vial IM PRN PRN Hypoglycemia Protocol Glucose 15 gm 06/02/25 03:31 Glucose Oral Gel 15 Gm Of Glucse In 37.5 Gm Tube PO PRN PRN Hypoglycemia Protocol Heparin Sodium (Porcine) 5,000 units 06/02/25 22:00 06/08/25 14:46 Heparin Sodium 5,000 Units/Ml Vial SUB-Q 5,000 units Q8HR USAMA Administration Hydralazine HCl 25 mg 06/04/25 09:20 06/08/25 12:08 Hydralazine Hcl 25 Mg Tablet PO 25 mg Q6HR USAMA Administration Sodium Chloride 1,000 mls @ 75 mls/hr 06/02/25 03:30 06/02/25 04:14 Normal Saline Iv IV CONT 75 mls/hr On Hold: 06/02/25 10:04 .[id number] USAMA Administration Dextrose 1,000 mls @ 100 mls/hr 06/02/25 03:31 Dextrose 5% 1,000 Ml IVPB PRN PRN Hypoglycemia Protocol Albumin Human 50 mls @ 999 mls/hr 06/03/25 08:37 Albutein IVPB 07/03/25 08:36 Q10M PRN HYPOTENSION Meropenem 1 gm/ Sodium 100 mls @ 200 mls/hr 06/08/25 14:00 06/08/25 14:41 Chloride IVPB 200 mls/hr DAILY@1400 USAMA Administration Insulin Aspart 2 - 5 units 06/02/25 08:00 06/08/25 12:09 Insulin Aspart (*Bkc) 100 Units/Ml SUB-Q 4 units TIDWM USAMA Administration Protocol Isosorbide Mononitrate 30 mg 06/04/25 09:20 06/08/25 08:28 Isosorbide Mononitrate 30 Mg Tab.Er.24h PO 30 mg QAM USAMA Administration Metoprolol Tartrate 100 mg 06/02/25 09:00 06/08/25 08:28 Metoprolol Tartrate 50 Mg Tab BY MOUTH 100 mg Q12HR USAMA Administration Metoprolol Tartrate 5 mg 06/02/25 09:43 06/06/25 12:56 Metoprolol Tartrate Inj 5 Mg/5 Ml Vial IV PUSH 5 mg Q6H PRN Administration tachycardia >100 Nifedipine 30 mg 06/07/25 09:00 06/08/25 08:28 Nifedipine 30 Mg Tab.Er.24 PO 30 mg QAM USAMA Administration Pantoprazole Sodium 40 mg 06/02/25 09:00 06/02/25 10:07 Pantoprazole 40 Mg Tablet PO Not Given On Hold: 06/02/25 14:42 DAILY [facility] Radiology Results: ITS Impressions Chest/Abdomen/Pelvis CT 06/01/25 17:56 IMPRESSION: CHEST- 1. No acute findings. ABDOMEN/PELVIS- 1. Cystitis not excluded. 2. Mild colitis not excluded. 3. Otherwise no acute abnormality given noncontrast technique. Head CT 06/01/25 19:30 IMPRESSION: 1. No acute intracranial findings or change from prior exam. Chest X-Ray 06/05/25 14:07 Impression: No acute cardiopulmonary abnormality. Labs Labs: Laboratory Results - last 24 hr 06/07/25 06/07/25 06/08/25 16:27 19:41 05:00 WBC 22.6 H RBC 3.91 L Hgb 11.1 L Hct 35.5 L MCV 90.8 MCH 28.4 MCHC 31.3 L RDW 14.0 Plt Count 276 MPV 10.7 H Immature Gran % (Auto) Not Reportable Neut % (Auto) Not Reportable Lymph % (Auto) Not Reportable [place] % (Auto) Not Reportable Eos % (Auto) Not Reportable Baso % (Auto) Not Reportable Lymph # (Auto) Not Reportable [place] # (Auto) Not Reportable Eos # (Auto) Not Reportable Baso # (Auto) Not Reportable Abs Immat Gran (auto) Not Reportable Absolute Neuts (auto) Not Reportable Absolute Nucleated RBC Not Reportable Total Counted 100 Neutrophils % (Manual) 70 Band Neutrophils % 2 Lymphocytes % (Manual) 17.0 L Monocytes % (Manual) 7 Eosinophils % (Manual) 3 Metamyelocytes % 1 Nucleated RBC % Not Reportable Abs Neuts (Manual) 16.27 H Abs Lymphs (Manual) 3.84 Abs Monocytes (Manual) 1.58 H Absolute Eos (Manual) 0.67 H Smudge Cells Present Platelet Estimate Adequate Schistocytes None seen Sodium 134 L Potassium 4.0 Chloride 102 Carbon Dioxide 25 Anion Gap 7 BUN 45 H Creatinine 1.16 H Estim Creat Clear Calc 35 Estimated GFR 46 L Glucose 208 H POC Capillary Glucose 307 H 284 H Calcium 8.6 Magnesium 1.7 Total Bilirubin 0.4 AST 46 H ALT 12 Alkaline Phosphatase 93 Total Protein 6.7 Albumin 3.3 L 06/08/25 11:37 WBC RBC Hgb Hct MCV MCH MCHC RDW Plt Count MPV Immature Gran % (Auto) Neut % (Auto) Lymph % (Auto) [place] % (Auto) Eos % (Auto) Baso % (Auto) Lymph # (Auto) [place] # (Auto) Eos # (Auto) Baso # (Auto) Abs Immat Gran (auto) Absolute Neuts (auto) Absolute Nucleated RBC Total Counted Neutrophils % (Manual) Band Neutrophils % Lymphocytes % (Manual) Monocytes % (Manual) Eosinophils % (Manual) Metamyelocytes % Nucleated RBC % Abs Neuts (Manual) Abs Lymphs (Manual) Abs Monocytes (Manual) Absolute Eos (Manual) Smudge Cells Platelet Estimate Schistocytes Sodium Potassium Chloride Carbon Dioxide Anion Gap BUN Creatinine Estim Creat Clear Calc Estimated GFR Glucose POC Capillary Glucose 335 H Calcium Magnesium Total Bilirubin AST ALT Alkaline Phosphatase Total Protein Albumin Quality VTE Prophylaxis VTE prophylaxis: pharmacologic ordered Hospitalist MIPS Advance Care Plan I have confirmed that the patient's Advanced Care Plan is present, code status is documented, or surrogate decision maker is listed in patient medical record.: Yes Medication Reconciliation I have utilized all available resources to obtain, update and review the patients current medications (includes all prescriptions, OTC, herbals, cannabis, and nutritional supplements).: Yes
[2025-06-08 15:11] LABS: Add Urine Microscopic? YES
[2025-06-08 15:27] LABS: Budding Yeast Urine Present /hpf
[2025-06-08 15:28] LABS: Appearance Urine Clear (Clear); Glucose Urine UA 2+ mg/dL (Negative); Nitrate Urine Negative (Negative); Specific Grav Ur 1.005 (1.001-1.035)
[2025-06-08 15:29] LABS: Leukocyte Esterase Ur Negative LEU/UL (Negative)
[2025-06-09] VITALS (7 sets, daily range): BP systolic 117–149; BP diastolic 57–68; PULSE 60–82; RESP 12–20; TEMP 35.8–37; O2SAT 95–100
[2025-06-09 06:48] LABS: Hematocrit 34.9 % (37.0-47.0); Hemoglobin 11.1 g/dL (12.0-15.0); Mean Corpuscular HGB Conc 31.8 g/dl (32-36); Mean Corpuscular Hemoglobin 28.3 pg (26-34); Mean Corpuscular Volume 89.0 fl (80-100); Platelet Count Result 263 k/mm3 (150-375); Red Blood Count 3.92 M/mm3 (4.2-5.4); White Blood Count 24.0 K/mm3 (4.5-10.0)
--- NOTE | 2025-06-09 07:08 | P.PNIM_ITS ---
Progress Note: A&P Assessment and Plan (1) RENEA (acute kidney injury): Code(s): N17.9 - Acute kidney failure, unspecified Status: Resolved Assessment and Plan: -the patient has acute on chronic renal failure with uremia -patient had a renal ultrasound on 04/27/2025: Trabeculated bladder appearance with thickening. Focal thickening more prominent superiorly on the right. Cannot exclude transitional cell carcinoma possibly superimposed on cystitis. Recommend urology consultation. -urology saw the patient on 04/27/2025 and noted no acute urological surgical intervention is indicated. It was noted that they will follow her peripherally. -continue with IV fluid -monitor BMP -BUN/Cr 45/1.16 > 39/0.95 Dialysis discontinued per Nephrology - Cr improving. Dialysis catheter to be removed tonight as heparin p.m. dose was held with following of daily labs per nephrology. Sepsis or prerenal causes being considered as etiology of RENEA. Associated metabolic acidosis has also resolved. Nephrology following (2) DM2 (diabetes mellitus, type 2): Qualifiers: Diabetes mellitus complication status: with hyperglycemia Diabetes mellitus oysterman insulin use: without jail use Qualified Code(s): E11.65 - Type 2 diabetes mellitus with hyperglycemia Code(s): E11.9 - Type 2 diabetes mellitus without complications Status: Chronic Assessment and Plan: -I am holding her p.o. medication. -sliding scale insulin -last A1c a couple days ago was 6.0. -her blood sugar was 208 at 0500 today. (3) Essential (primary) hypertension: Code(s): I10 - Essential (primary) hypertension Status: Chronic Assessment and Plan: -blood pressure 170/70 -continue Metoprolol, Isosorbide mononitrate, Hydralazine and Nifedipine monitor (4) Congestive heart failure: Code(s): I50.9 - Heart failure, unspecified Status: Chronic Assessment and Plan: -continue with metoprolol -patient for [place] is currently on hold due to her acute renal failure. -echo showed left ventricular hypertrophy with hyperdynamic systolic -spironolactone on hold at this time. (5) Hyperlipidemia: Code(s): E78.5 - Hyperlipidemia, unspecified Status: Acute Assessment and Plan: -continue without atorvastatin and monitor liver enzymes (6) Generalized anxiety disorder: Code(s): F41.1 - Generalized anxiety disorder Status: Acute (7) Hyperkalemia: Code(s): E87.5 - Hyperkalemia Status: Acute Assessment and Plan: -most likely secondary to the acute kidney injury -she has also been on spironolactone which is now on hold. -the patient was given Lokelma in the emergency room. resolved (8) Leukocytosis: Code(s): D72.829 - Elevated white blood cell count, unspecified Status: Acute Assessment and Plan: In setting of severe sepsis w/o septic shock Seen by ID- WBC worsening, CT A/P and chest reviewed- Chronic interstitial lung disease with old granulomatous disease on the chest, cystitis with urothelial enhancement extending proximally up the right ureter, early pyelonephritis, as well as constipation / fecal impaction on abdominal CT. However, patient is producing stools actively though 1 dose of lactulose was given to facilitate bowel movements. Patient is only using opioids may be once a day, within not have any today for example so not likely direct cause of CT findings. ID has switched patient back to ceftriaxone/metronidazole from meropenem at this time. Urinary catheter also has been removed today, will be trending white blood cell count in the morning and repeating urine culture at their request if still trending up. (9) Altered mental status: Qualifiers: Altered mental status type: unspecified Qualified Code(s): R41.82 - Altered mental status, unspecified Code(s): R41.82 - Altered mental status, unspecified Status: Acute Assessment and Plan: Suspected to be secondary to sepsis/RENEA- still not fully alert and oriented, but this appears to be improving. Continuing to monitor in association with improvement of suspected etiologies. Plan AMS from uremia, resolved improving with dialysis Pain medication and muscle relaxers held at this time due to her acute altered mental status. monitor Colitis CT AP reviewed Rocephin and Flagyl restarted 06/09, meropenem stopped 06/09 Leukocytosis 22.6 > 24 500 cc NS to be given at 75cc/hr and monitor WBC monitor Cystitis per CT AP urine culture (06/02) pending Rocephin and Flagyl restarted 06/09, meropenem stopped 06/09 monitor Tachycardia Resolved with restarting patient's home Metoprolol 100mg bid monitor Kidney failure resolving, possible placement DVT prophylaxis on Sq heparin PT/OT eval for discharge planning Subjective Date/time seen: 06/09/25 07:08 Interval history: Follow-up for acute kidney injury/acute renal failure. Renal function/creatinine continues to improve as noted by trend of labs with adequate urine output noted; still with noted leukocytosis; no apparent distress noted at the time of my visit. Review of Systems Review of Systems: ROS unobtainable: Yes unobtainable due to medical condition and unobtainable due to mental status ENT: Reports Normal hearing present Neurologic: Reports Normal hearing present Exam Narrative: General: awake HEENT: Normocephalic. Atraumatic. Extraocular movement intact. Sclera clear and anicteric. No facial asymmetry. Chest: Lungs are coarse to auscultation bilaterally. CV: Heart was regular rate and rhythm. Abd: Abdomen was soft. Nontender. Nondistended. Positive bowel sounds. Ext: No clubbing, cyanosis, or edema. DP pulses bilaterally. Neuro: Patient is alert to voice and upon return able AOx1 (person), following some commands. 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 Skin: Warm and dry. No rashes or ulcers noted. Const: General: cooperative, no acute distress, well developed, awake, Physically active, average body habitus and well nourished Nutritional Appearance: average body habitus and well nourished HENMT: Head: normal to inspection, No palpable skull fracture present, normocephalic and atraumatic Ears: hearing grossly normal bilaterally Eyes: General: appearance normal, both eyes and all related structures Alignment and Position: alignment normal Periorbital: periorbital findings normal Eyelids: eyelids normal Pupils: Equal, round and reactive pupils present Neck: Neck: normal visual inspection and full ROM Chest: Chest palpation & inspection: normal inspection of the chest Resp: Effort & Inspection: normal respiratory effort Auscultation: clear to auscultation bilaterally Cardio: Palpation: normal PMI Rate: regular rate Rhythm: regular rhythm Heart sounds: S1 normal heart sound present and S2 normal heart sound present Peripheral pulses: Peripheral pulses 2+ throughout GI: Inspection: normal to inspection Auscultation: normal bowel sounds Rectal Exam: deferred Skin: General skin exam: normal color Lesions: no lesions Rashes: no rashes Trauma: no lacerations or abrasions Wounds: no wounds Hair: normal Nails: normal Neuro: General: oriented to person, oriented to place, oriented to time and patient oriented x3 Cranial nerves: Yes Equal, round and reactive pupils present and Yes Normal hearing present Cognition (Neuro): normal cognition Speech: normal speech Motor exam (neuro): 5/5 motor strength present throughout Sensory Exam: normal sensation Extrem: General: normal to inspection Right upper extremity: normal to inspection and shoulder/upper arm Left upper extremity: normal to inspection and shoulder/upper arm Right lower extremity: normal to inspection Left lower extremity: normal to inspection Psych: Mental Status: other Affect: normal affect Attitude: cooperative Objective Data Vital Signs Vital Signs: Vital Signs - 24 hr 06/08/25 08:00 06/08/25 08:28 06/08/25 08:30 Temperature 97.9 F Pulse Rate 84 84 Respiratory Rate 14 Blood Pressure 192/86 H Pulse Oximetry 99 100 Oxygen Delivery Room Air Fraction of Inspired Oxygen 06/08/25 08:33 06/08/25 12:00 06/08/25 15:46 Temperature 97.7 F 97.4 F L Pulse Rate 71 70 Respiratory Rate 14 14 Blood Pressure 170/71 H 112/54 L Pulse Oximetry 99 99 Oxygen Delivery Room Air Fraction of Inspired Oxygen 06/08/25 17:00 06/08/25 19:39 06/08/25 20:00 Temperature 97.6 F Pulse Rate 72 79 Respiratory Rate 18 Blood Pressure 118/58 L 107/52 L Pulse Oximetry 99 97 Oxygen Delivery Room Air Fraction of Inspired Oxygen 06/08/25 20:08 06/08/25 21:59 06/08/25 23:54 Temperature 97.6 F Pulse Rate 76 80 71 Respiratory Rate 20 18 Blood Pressure 138/70 Pulse Oximetry 98 99 Oxygen Delivery Room Air Fraction of Inspired Oxygen 06/09/25 04:00 Temperature 97.6 F Pulse Rate 82 Respiratory Rate 18 Blood Pressure 149/68 H Pulse Oximetry 95 Oxygen Delivery Fraction of Inspired Oxygen Intake/Output Intake/Output: Intake & Output 06/06/25 06/07/25 06/08/25 06/09/25 23:59 23:59 23:59 23:59 Intake Total 1410 1520 1230 340 Output Total 1450 1400 2025 850 Balance -40 120 -456 -749 Meds/Results Medications: Active Medications Generic Name Dose Route Start Last Admin Trade Name Freq PRN Reason Stop Dose Admin Acetaminophen 650 mg 06/03/25 20:21 Acetaminophen 325 Mg Tablet PO Q6H PRN Mild Pain (1-3) or Fever Hydrocodone Bitart/Acetaminophen 1 tab 06/03/25 20:21 06/08/25 12:36 Hydrocodone/Acetaminophen (*Crx) 5-325 Mg Tablet PO 1 tab Q4H PRN Administration Pain Rated 4-6 Alteplase, Recombinant 2 mg 06/05/25 09:03 06/05/25 09:27 Alteplase 2 Mg Vial (Cathflo) IV PUSH 2 mg ONCE PRN Administration Line Occlusion Alteplase, Recombinant 2 mg 06/05/25 09:04 06/05/25 09:27 Alteplase 2 Mg Vial (Cathflo) IV PUSH 2 mg ONCE PRN Administration Line Occlusion Atorvastatin Calcium 20 mg 06/02/25 09:00 06/02/25 10:07 Atorvastatin 20 Mg Tablet BY MOUTH Not Given On Hold: 06/02/25 14:42 DAILY [facility] Bisacodyl 10 mg 06/02/25 03:32 Bisacodyl 10 Mg Suppository RECTAL DAILY PRN Constipation Clonidine HCl 0.3 mg 06/02/25 09:00 06/02/25 11:58 Clonidine Hcl 0.1 Mg Tablet BY MOUTH Not Given On Hold: 06/02/25 14:42 BID USAMA Dextrose 12.5 gm 06/02/25 03:31 Dextrose 50% 25 Gm/50 Ml Syringe IV PUSH PRN PRN Hypoglycemia Protocol Gabapentin 300 mg 06/02/25 09:00 06/02/25 10:07 Gabapentin 300 Mg Capsule PO Not Given On Hold: 06/02/25 14:42 DAILY [facility] Glucagon 1 mg 06/02/25 03:31 Glucagon For Inj 1 Mg Vial IM PRN PRN Hypoglycemia Protocol Glucose 15 gm 06/02/25 03:31 Glucose Oral Gel 15 Gm Of Glucse In 37.5 Gm Tube PO PRN PRN Hypoglycemia Protocol Heparin Sodium (Porcine) 5,000 units 06/02/25 22:00 06/09/25 05:24 Heparin Sodium 5,000 Units/Ml Vial SUB-Q 5,000 units Q8HR USAMA Administration Hydralazine HCl 25 mg 06/04/25 09:20 06/09/25 05:24 Hydralazine Hcl 25 Mg Tablet PO 25 mg Q6HR USAMA Administration Sodium Chloride 1,000 mls @ 75 mls/hr 06/02/25 03:30 06/02/25 04:14 Normal Saline Iv IV CONT 75 mls/hr On Hold: 06/02/25 10:04 .[id number] USAMA Administration Dextrose 1,000 mls @ 100 mls/hr 06/02/25 03:31 Dextrose 5% 1,000 Ml IVPB PRN PRN Hypoglycemia Protocol Albumin Human 50 mls @ 999 mls/hr 06/03/25 08:37 Albutein IVPB 07/03/25 08:36 Q10M PRN HYPOTENSION Meropenem 1 gm/ Sodium 100 mls @ 200 mls/hr 06/08/25 14:00 06/08/25 15:10 Chloride IVPB Infused DAILY@1400 USAMA Infusion Insulin Aspart 2 - 5 units 06/02/25 08:00 06/08/25 16:56 Insulin Aspart (*Bkc) 100 Units/Ml SUB-Q Not Given TIDWM USAMA Protocol Isosorbide Mononitrate 30 mg 06/04/25 09:20 06/08/25 08:28 Isosorbide Mononitrate 30 Mg Tab.Er.24h PO 30 mg QAM USAMA Administration Metoprolol Tartrate 100 mg 06/02/25 09:00 06/08/25 21:59 Metoprolol Tartrate 50 Mg Tab BY MOUTH 100 mg Q12HR USAMA Administration Metoprolol Tartrate 5 mg 06/02/25 09:43 06/06/25 12:56 Metoprolol Tartrate Inj 5 Mg/5 Ml Vial IV PUSH 5 mg Q6H PRN Administration tachycardia >100 Nifedipine 30 mg 06/07/25 09:00 06/08/25 08:28 Nifedipine 30 Mg Tab.Er.24 PO 30 mg QAM USAMA Administration Pantoprazole Sodium 40 mg 06/02/25 09:00 06/02/25 10:07 Pantoprazole 40 Mg Tablet PO Not Given On Hold: 06/02/25 14:42 DAILY [facility] Radiology Results: ITS Impressions Head CT 06/01/25 19:30 IMPRESSION: 1. No acute intracranial findings or change from prior exam. Chest X-Ray 06/05/25 14:07 Impression: No acute cardiopulmonary abnormality. Chest/Abdomen/Pelvis CT 06/08/25 20:11 IMPRESSION: 1. Stable appearance of mild UIP pattern chronic interstitial lung disease with no acute cardiopulmonary disease. 2. Large ball of stool at rectum suspicious for constipation with fecal impac tion. Mild stranding in the perirectal/presacral fat suggesting possible secondary stercoral colitis. 3. Mild haziness to the fat surrounding the decompressed bladder suspicious for cystitis. Correlate with urinalysis. Labs Labs: Laboratory Results - last 24 hr 06/08/25 06/08/25 06/08/25 11:37 14:56 16:37 POC Capillary Glucose 335 H 171 H Urine Color Yellow Urine Appearance Clear Urine pH 5.5 Ur Specific [place] 1.005 Urine Protein 1+ H Urine Glucose (UA) 2+ H Urine Ketones Negative Ur Blood (Man) Negative Urine Nitrate Negative Urine Bilirubin Negative Urine Urobilinogen 0.2 Leukocyte Esterase Rfl Negative Urine RBC 0-2 Urine WBC 0-5 Ur Squamous Epith Cells Rare Urine Bacteria Trace Urine Yeast (Budding) Present H 06/08/25 06/09/25 19:41 01:07 POC Capillary Glucose 349 H 146 H Urine Color Urine Appearance Urine pH Ur Specific [place] Urine Protein Urine Glucose (UA) Urine Ketones Ur Blood (Man) Urine Nitrate Urine Bilirubin Urine Urobilinogen Leukocyte Esterase Rfl Urine RBC Urine WBC Ur Squamous Epith Cells Urine Bacteria Urine Yeast (Budding) Quality VTE Prophylaxis VTE prophylaxis: pharmacologic ordered Hospitalist MIPS Advance Care Plan I have confirmed that the patient's Advanced Care Plan is present, code status is documented, or surrogate decision maker is listed in patient medical record.: Yes Medication Reconciliation I have utilized all available resources to obtain, update and review the patients current medications (includes all prescriptions, OTC, herbals, cannabis, and nutritional supplements).: Yes
[2025-06-09 07:11] LABS: Alanine Aminotransferase 10 U/L (6-35); Albumin Level 3.2 g/dL (3.5-5.1); Alkaline Phosphatase 77 U/L (38-126); Anion Gap 4 mmol/L (4-12); Aspartate Amino Transferase 23 U/L (14-36); Bilirubin,Total 0.3 mg/dL (0.2-1.3); Blood Urea Nitrogen 39 mg/dL (7-17); Calcium 8.6 mg/dL (8.4-10.2); Carbon Dioxide 28 mmol/L (22-30); Chloride 102 mmol/L (98-107); Estimated CRCL calculation 42 ml/min; Estimated Glomerular Filt Rate 58; Glucose 167 mg/dL (65-110); Potassium 3.7 mmol/L (3.4-5.0); Sodium 134 mmol/L (137-145); Total Protein 6.5 g/dL (6.3-8.2)
[2025-06-09 07:35] LABS: Band Neutrophils Percent 0 % (0-6); Basophils Absolute Manual 0.00 K/mm3 (0.0-0.1); Basophils Percent Manual 0 % (0-1); Eosinophils Absolute Manual 0.24 K/mm3 (0.02-0.50); Eosinophils Percent Manual 1 % (0-4); Lymphocytes Absolute Manual 2.64 K/mm3 (1.1-4.5); Lymphocytes Percent Manual 11 % (18-44); Monocytes Absolute Manual 0.72 K/mm3 (0.1-0.90); Monocytes Percent Manual 3 % (3-9); Neutrophils Absolute Manual 20.40 K/mm3 (1.3-6.7); Neutrophils Percent Manual 85 % (46-73); Schistocytes None Seen; Total Cells Counted 100
[2025-06-09] MEDS: ISOSORBIDE MONONITRATE 30 MG TAB.ER.24H PO (08:17)
[2025-06-09] MEDS: METOPROLOL TARTRATE 50 MG TAB 100 MG BY MOUTH ×2 (08:17→22:40)
[2025-06-09] MEDS: MEROPENEM 1 GM in SODIUM CHLORIDE 0.9% IV 100 ML 200 ML IVPB (14:04)
[2025-06-09] MEDS: LACTULOSE 20 GM/30 ML UDC PO (14:04)
[2025-06-09] MEDS: metroNIDAZOLE 500 MG/ISO 100ML 500 MG/100 ML BAG 100 MG IVPB ×2 (14:47→22:36)
--- NOTE | 2025-06-09 16:15 | P.PNINF_ITS ---
Progress Note: A&P Assessment and Plan (1) Severe sepsis: Code(s): A41.9 - Sepsis, unspecified organism; R65.20 - Severe sepsis without septic shock Status: Acute (2) Acute kidney injury: Code(s): N17.9 - Acute kidney failure, unspecified Status: Acute Assessment and Plan: -HD catheter placed on 06/03/25 -Acute HD management as per Nephrology service (3) Colitis: Code(s): K52.9 - Noninfective gastroenteritis and colitis, unspecified Status: Acute (4) Leukocytosis: Code(s): D72.829 - Elevated white blood cell count, unspecified Status: Acute Plan Switch antibiotics to cefepime plus Flagyl. HD catheter out. Okay to remove Jara catheter. If increasing white blood cell count, we will consider urine culture after removal of Jara catheter. Next item monitor abdominal exam. Patient was seen via video telehealth consultation with the assistance of staff. Chart, data, and patient independently reviewed. Patient was located at [facility] while I was located in my [place] office. Received verbal consent from patient. Subjective Date/time seen: 06/09/25 16:15 Interval history: More fatigued today compared to yesterday according to the source rounder. No new fevers. White count static. Repeat CT noted. Exam Narrative: More obtunded today. Will open eyes especially when rounder talks to her. She falls asleep very quickly. Some grimace with palpation on all quadrants of the abdomen. No rash. Objective Data Vital Signs Vital Signs: Vital Signs - 24 hr 06/08/25 17:00 06/08/25 19:39 06/08/25 20:00 Temperature 36.4 C Pulse Rate 72 79 Respiratory Rate 18 Blood Pressure 118/58 L 107/52 L Pulse Oximetry 99 97 Oxygen Delivery Room Air Fraction of Inspired Oxygen 06/08/25 20:08 06/08/25 21:59 06/08/25 23:54 Temperature 36.4 C Pulse Rate 76 80 71 Respiratory Rate 20 18 Blood Pressure 138/70 Pulse Oximetry 98 99 Oxygen Delivery Room Air Fraction of Inspired Oxygen 21 06/09/25 04:00 06/09/25 08:00 06/09/25 08:17 Temperature 36.4 C 37.0 C Pulse Rate 82 60 80 Respiratory Rate 18 12 Blood Pressure 149/68 H 119/65 Pulse Oximetry 95 99 Oxygen Delivery Fraction of Inspired Oxygen 06/09/25 12:00 Temperature 35.8 C L Pulse Rate 61 Respiratory Rate 12 Blood Pressure 121/59 L Pulse Oximetry 100 Oxygen Delivery Fraction of Inspired Oxygen Intake/Output Intake/Output: Intake & Output 06/06/25 06/07/25 06/08/25 06/09/25 23:59 23:59 23:59 23:59 Intake Total 1410 1520 1230 340 Output Total 1450 1400 2024 850 Balance -40 120 -948 -445 Meds/Results Medications: Active Medications Generic Name Dose Route Start Last Admin Trade Name Freq PRN Reason Stop Dose Admin Acetaminophen 650 mg 06/03/25 20:21 Acetaminophen 325 Mg Tablet PO Q6H PRN Mild Pain (1-3) or Fever Hydrocodone Bitart/Acetaminophen 1 tab 06/03/25 20:21 06/08/25 12:36 Hydrocodone/Acetaminophen (*Crx) 5-325 Mg Tablet PO 1 tab Q4H PRN Administration Pain Rated 4-6 Alteplase, Recombinant 2 mg 06/05/25 09:03 06/05/25 09:27 Alteplase 2 Mg Vial (Cathflo) IV PUSH 2 mg ONCE PRN Administration Line Occlusion Alteplase, Recombinant 2 mg 06/05/25 09:04 06/05/25 09:27 Alteplase 2 Mg Vial (Cathflo) IV PUSH 2 mg ONCE PRN Administration Line Occlusion Atorvastatin Calcium 20 mg 06/02/25 09:00 06/02/25 10:07 Atorvastatin 20 Mg Tablet BY MOUTH Not Given On Hold: 06/02/25 14:42 DAILY [facility] Bisacodyl 10 mg 06/02/25 03:32 Bisacodyl 10 Mg Suppository RECTAL DAILY PRN Constipation Clonidine HCl 0.3 mg 06/02/25 09:00 06/02/25 11:58 Clonidine Hcl 0.1 Mg Tablet BY MOUTH Not Given On Hold: 06/02/25 14:42 BID [facility] Dextrose 12.5 gm 06/02/25 03:31 Dextrose 50% 25 Gm/50 Ml Syringe IV PUSH PRN PRN Hypoglycemia Protocol Gabapentin 300 mg 06/02/25 09:00 06/02/25 10:07 Gabapentin 300 Mg Capsule PO Not Given On Hold: 06/02/25 14:42 DAILY [facility] Glucagon 1 mg 06/02/25 03:31 Glucagon For Inj 1 Mg Vial IM PRN PRN Hypoglycemia Protocol Glucose 15 gm 06/02/25 03:31 Glucose Oral Gel 15 Gm Of Glucse In 37.5 Gm Tube PO PRN PRN Hypoglycemia Protocol Heparin Sodium (Porcine) 5,000 units 06/02/25 22:00 06/09/25 09:55 Heparin Sodium 5,000 Units/Ml Vial SUB-Q Not Given Q8HR USAMA Hydralazine HCl 25 mg 06/04/25 09:20 06/09/25 11:49 Hydralazine Hcl 25 Mg Tablet PO 25 mg Q6HR USAMA Administration Sodium Chloride 1,000 mls @ 75 mls/hr 06/02/25 03:30 06/02/25 04:14 Normal Saline Iv IV CONT 75 mls/hr On Hold: 06/02/25 10:04 .[id number] USAMA Administration Dextrose 1,000 mls @ 100 mls/hr 06/02/25 03:31 Dextrose 5% 1,000 Ml IVPB PRN PRN Hypoglycemia Protocol Albumin Human 50 mls @ 999 mls/hr 06/03/25 08:37 Albutein IVPB 07/03/25 08:36 Q10M PRN HYPOTENSION Metronidazole 500 mg in 100 mls @ 100 mls/hr 06/09/25 14:00 06/09/25 14:47 Flagyl 500 Mg/Iso Soln 100 Ml IVPB 100 mls/hr Q8H USAMA Administration Cefepime HCl 2 gm/ Sodium 50 mls @ 100 mls/hr 06/09/25 18:00 Chloride IVPB Q12H US[facility] Insulin Aspart 2 - 5 units 06/02/25 08:00 06/09/25 11:47 Insulin Aspart (*Bkc) 100 Units/Ml SUB-Q Not Given TIDWM US[facility] Protocol Isosorbide Mononitrate 30 mg 06/04/25 09:20 06/09/25 08:17 Isosorbide Mononitrate 30 Mg Tab.Er.24h PO 30 mg QAM USAMA Administration Metoprolol Tartrate 100 mg 06/02/25 09:00 06/09/25 08:17 Metoprolol Tartrate 50 Mg Tab BY MOUTH 100 mg Q12HR USAMA Administration Metoprolol Tartrate 5 mg 06/02/25 09:43 06/06/25 12:56 Metoprolol Tartrate Inj 5 Mg/5 Ml Vial IV PUSH 5 mg Q6H PRN Administration tachycardia >100 Nifedipine 30 mg 06/07/25 09:00 06/09/25 08:17 Nifedipine 30 Mg Tab.Er.24 PO 30 mg QAM USAMA Administration Pantoprazole Sodium 40 mg 06/02/25 09:00 06/02/25 10:07 Pantoprazole 40 Mg Tablet PO Not Given On Hold: 06/02/25 14:42 DAILY [facility] Radiology Results: ITS Impressions Head CT 06/01/25 19:30 IMPRESSION: 1. No acute intracranial findings or change from prior exam. Chest X-Ray 06/05/25 14:07 Impression: No acute cardiopulmonary abnormality. Chest/Abdomen/Pelvis CT 06/08/25 20:11 IMPRESSION: 1. Stable appearance of mild UIP pattern chronic interstitial lung disease with no acute cardiopulmonary disease. 2. Large ball of stool at rectum suspicious for constipation with fecal impaction. Mild stranding in the perirectal/presacral fat suggesting possible secondary stercoral colitis. 3. Mild haziness to the fat surrounding the decompressed bladder suspicious for cystitis. Correlate with urinalysis. Labs Labs: Laboratory Results - last 24 hr 06/08/25 06/08/25 06/09/25 16:37 19:41 01:07 WBC RBC Hgb Hct MCV MCH MCHC RDW Plt Count MPV Immature Gran % (Auto) Neut % (Auto) Lymph % (Auto) [place] % (Auto) Eos % (Auto) Baso % (Auto) Lymph # (Auto) [place] # (Auto) Eos # (Auto) Baso # (Auto) Abs Immat Gran (auto) Absolute Neuts (auto) Absolute Nucleated RBC Total Counted Neutrophils % (Manual) Band Neutrophils % Lymphocytes % (Manual) Monocytes % (Manual) Eosinophils % (Manual) Basophils % (Manual) Nucleated RBC % Abs Neuts (Manual) Abs Lymphs (Manual) Abs Monocytes (Manual) Absolute Eos (Manual) Abs Basophils (Manual) Platelet Estimate Schistocytes Sodium Potassium Chloride Carbon Dioxide Anion Gap BUN Creatinine Estim Creat Clear Calc Estimated GFR Glucose POC Capillary Glucose 171 H 349 H 146 H Calcium Total Bilirubin AST ALT Alkaline Phosphatase Total Protein Albumin 06/09/25 06/09/25 06/09/25 06:41 07:36 11:32 WBC 24.0 H RBC 3.92 L Hgb 11.1 L Hct 34.9 L MCV 89.0 MCH 28.3 MCHC 31.8 L RDW 13.8 Plt Count 263 MPV 10.5 H Immature Gran % (Auto) Not Reportable Neut % (Auto) Not Reportable Lymph % (Auto) Not Reportable [place] % (Auto) Not Reportable Eos % (Auto) Not Reportable Baso % (Auto) Not Reportable Lymph # (Auto) Not Reportable [place] # (Auto) Not Reportable Eos # (Auto) Not Reportable Baso # (Auto) Not Reportable Abs Immat Gran (auto) Not Reportable Absolute Neuts (auto) Not Reportable Absolute Nucleated RBC Not Reportable Total Counted 100 Neutrophils % (Manual) 85 H Band Neutrophils % 0 Lymphocytes % (Manual) 11 L Monocytes % (Manual) 3 Eosinophils % (Manual) 1 Basophils % (Manual) 0 Nucleated RBC % Not Reportable Abs Neuts (Manual) 20.40 H Abs Lymphs (Manual) 2.64 Abs Monocytes (Manual) 0.72 Absolute Eos (Manual) 0.24 Abs Basophils (Manual) 0.00 Platelet Estimate Adequate Schistocytes None seen Sodium 134 L Potassium 3.7 Chloride 102 Carbon Dioxide 28 Anion Gap 4 BUN 39 H Creatinine 0.95 Estim Creat Clear Calc 42 Estimated GFR 58 L Glucose 167 H POC Capillary Glucose 193 H 200 H Calcium 8.6 Total Bilirubin 0.3 AST 23 ALT 10 Alkaline Phosphatase 77 Total Protein 6.5 Albumin 3.2 L
[2025-06-09] MEDS: INSULIN ASPART (*BKC) 100 UNITS/ML SUB-Q (17:26)
[2025-06-09] MEDS: CEFEPIME 2 GM in SODIUM CHLORIDE 0.9% IV 50 ML 100 ML IVPB (17:27)
[2025-06-09] MEDS: HYDROcodone/acetaminophen (*CRX) 5-325 MG TABLET 1 TAB PO (20:54)
[2025-06-09] MEDS: NEOMYCIN/POLYMYXIN/BACITRACIN OINTMENT 15 GM TUBE 1 APPLIC TOPICAL (20:55)
[2025-06-10] VITALS (9 sets, daily range): BP systolic 100–140; BP diastolic 49–74; PULSE 60–75; RESP 18; TEMP 36.4; O2SAT 96–100
[2025-06-10] MEDS: TAMSULOSIN HCL 0.4 MG CAPSULE PO ×2 (00:13→21:33)
--- NOTE | 2025-06-10 00:21 | PC.NURSE ---
Pt unable to void post-starr removal. Starr catheter used for one time straight cath, catheter left in place for 1hr after initial emptying to assess urine output over one hour. 75ml/hr urine output.
[2025-06-10 04:28] LABS: Hematocrit 36.3 % (37.0-47.0); Hemoglobin 11.6 g/dL (12.0-15.0); Mean Corpuscular HGB Conc 32.0 g/dl (32-36); Mean Corpuscular Hemoglobin 28.8 pg (26-34); Mean Corpuscular Volume 90.1 fl (80-100); Platelet Count Result 180 k/mm3 (150-375); Red Blood Count 4.03 M/mm3 (4.2-5.4); White Blood Count 24.8 K/mm3 (4.5-10.0)
[2025-06-10 04:39] LABS: Alanine Aminotransferase 14 U/L (6-35); Albumin Level 3.2 g/dL (3.5-5.1); Alkaline Phosphatase 93 U/L (38-126); Anion Gap 7 mmol/L (4-12); Aspartate Amino Transferase 29 U/L (14-36); Bilirubin,Total 0.3 mg/dL (0.2-1.3); Blood Urea Nitrogen 36 mg/dL (7-17); Calcium 8.8 mg/dL (8.4-10.2); Carbon Dioxide 26 mmol/L (22-30); Chloride 104 mmol/L (98-107); Estimated CRCL calculation 43 ml/min; Estimated Glomerular Filt Rate 60; Glucose 167 mg/dL (65-110); Magnesium 1.6 mg/dL (1.6-2.3); Potassium 3.7 mmol/L (3.4-5.0); Sodium 137 mmol/L (137-145); Total Protein 6.7 g/dL (6.3-8.2)
[2025-06-10 05:11] LABS: Band Neutrophils Percent 1 % (0-6); Eosinophils Absolute Manual 0.49 K/mm3 (0.02-0.50); Eosinophils Percent Manual 2 % (0-4); Lymphocytes Absolute Manual 1.98 K/mm3 (1.1-4.5); Lymphocytes Percent Manual 8 % (18-44); Monocytes Absolute Manual 0.24 K/mm3 (0.1-0.90); Monocytes Percent Manual 1 % (3-9); Neutrophils Absolute Manual 22.07 K/mm3 (1.3-6.7); Neutrophils Percent Manual 88 % (46-73); Schistocytes None Seen; Total Cells Counted 100
[2025-06-10] MEDS: CEFEPIME 2 GM in SODIUM CHLORIDE 0.9% IV 50 ML 100 ML IVPB ×2 (06:30→17:40)
[2025-06-10] MEDS: metroNIDAZOLE 500 MG/ISO 100ML 500 MG/100 ML BAG 100 MG IVPB ×3 (07:06→21:32)
[2025-06-10] MEDS: HYDROcodone/acetaminophen (*CRX) 5-325 MG TABLET 1 TAB PO ×3 (07:09→17:39)
[2025-06-10] MEDS: INSULIN ASPART (*BKC) 100 UNITS/ML SUB-Q ×2 (08:39→12:12)
[2025-06-10] MEDS: METOPROLOL TARTRATE 50 MG TAB 100 MG BY MOUTH (08:43)
[2025-06-10] MEDS: ISOSORBIDE MONONITRATE 30 MG TAB.ER.24H PO (08:43)
[2025-06-10 14:15] LABS: Add Urine Microscopic? YES; Appearance Urine Cloudy (Clear); Budding Yeast Urine Present /hpf; Glucose Urine UA 3+ mg/dL (Negative); Leukocyte Esterase Ur Negative LEU/UL (Negative); Need Manual Microscopic Reviewed; Nitrate Urine Negative (Negative); Non Pathogenic Casts 0-2; Specific Grav Ur 1.030 (1.001-1.035)
--- NOTE | 2025-06-10 15:47 | P.PNIM_ITS ---
Progress Note: A&P Assessment and Plan (1) RENEA (acute kidney injury): Code(s): N17.9 - Acute kidney failure, unspecified Status: Resolved Assessment and Plan: -the patient has acute on chronic renal failure with uremia -patient had a renal ultrasound on 04/27/2025: Trabeculated bladder appearance with thickening. Focal thickening more prominent superiorly on the right. Cannot exclude transitional cell carcinoma possibly superimposed on cystitis. Recommend urology consultation. -urology saw the patient on 04/27/2025 and noted no acute urological surgical intervention is indicated. It was noted that they will follow her peripherally. -BUN/Cr 39/0.95 > 36/0.92 Dialysis discontinued per Nephrology - Cr improving. Dialysis catheter removed. Associated metabolic acidosis has also resolved. -monitor BMP daily (2) DM2 (diabetes mellitus, type 2): Qualifiers: Diabetes mellitus correction insulin use: without intermediate designer use Diabetes mellitus complication status: with hyperglycemia Qualified Code(s): E11.65 - Type 2 diabetes mellitus with hyperglycemia Code(s): E11.9 - Type 2 diabetes mellitus without complications Status: Chronic Assessment and Plan: -p.o. medications on hold -sliding scale insulin -last A1c was 6.0. -her blood sugar was 308 at 0500 today. (3) Essential (primary) hypertension: Code(s): I10 - Essential (primary) hypertension Status: Chronic Assessment and Plan: -blood pressure has been improving from high in the past several days -continue Metoprolol, Isosorbide mononitrate, Hydralazine prn and Nifedipine monitor (4) Congestive heart failure: Code(s): I50.9 - Heart failure, unspecified Status: Chronic Assessment and Plan: -continue with metoprolol -echo showed left ventricular hypertrophy with hyperdynamic systolic -spironolactone, Farxiga on hold at this time. (5) Hyperlipidemia: Code(s): E78.5 - Hyperlipidemia, unspecified Status: Acute Assessment and Plan: -continue with atorvastatin and monitor liver enzymes (6) Generalized anxiety disorder: Code(s): F41.1 - Generalized anxiety disorder Status: Acute (7) Hyperkalemia: Code(s): E87.5 - Hyperkalemia Status: Acute Assessment and Plan: -most likely secondary to the acute kidney injury -she has also been on spironolactone which is now on hold. -the patient was given Lokelma in the emergency room. resolved (8) Leukocytosis: Code(s): D72.829 - Elevated white blood cell count, unspecified Status: Acute Assessment and Plan: -In setting of severe sepsis w/o septic shock -Seen by ID- WBC worsening -CT A/P and chest reviewed- Chronic interstitial lung disease with old granulomatous disease on the chest, cystitis with urothelial enhancement ext ending proximally up the right ureter, early pyelonephritis, as well as constipation / fecal impaction. -However, patient is producing stools actively though 1 dose of lactulose was given to facilitate bowel movements. -ID has switched patient back to ceftriaxone/metronidazole from meropenem at this time. Urinary catheter also has been removed today, will be trending white blood cell count in the morning and repeating urine culture at their request if still trending up. -Cultures still pending-catheter tip culture from June 09 and urine culture from June 02 -Urine culture ordered today given continued increase of white blood cell count (9) Altered mental status: Qualifiers: Altered mental status type: unspecified Qualified Code(s): R41.82 - Altered mental status, unspecified Code(s): R41.82 - Altered mental status, unspecified Status: Acute Assessment and Plan: Suspected to be secondary to sepsis/RENEA- still not fully alert and oriented, but this appears to be improving. Continuing to monitor in association with improvement of suspected etiologies. Plan AMS from uremia, resolved improving with dialysis Pain medication and muscle relaxers held at this time due to her acute altered mental status. monitor Colitis CT AP reviewed Rocephin and Flagyl restarted 06/09, meropenem stopped 06/09 Leukocytosis 22.6 > 24 500 cc NS to be given at 75cc/hr and monitor WBC monitor Cystitis per CT AP urine culture (06/02) pending Rocephin and Flagyl restarted 06/09, meropenem stopped 06/09 monitor Tachycardia Resolved with restarting patient's home Metoprolol 100mg bid monitor Kidney failure resolving, possible placement DVT prophylaxis on Sq heparin PT/OT eval for discharge planning Subjective Date/time seen: 06/10/25 15:47 Interval history: More fatigued today compared to yesterday according to the source rounder. No new fevers. White count static. Repeat CT noted. Review of Systems ENT: Reports Normal hearing present Neurologic: Reports as per HPI and Reports Normal hearing present Exam Narrative: General: awake HEENT: Normocephalic. Atraumatic. Extraocular movement intact. Sclera clear and anicteric. No facial asymmetry. Chest: Lungs are coarse to auscultation bilaterally. CV: Heart was regular rate and rhythm. Abd: Abdomen was soft. Nontender. Nondistended. Positive bowel sounds. Ext: No clubbing, cyanosis, or edema. DP pulses bilaterally. Neuro: Patient is alert to voice and upon return able AOx2, following some commands. Symmetrical health plan specialist strength and wiggles toes. Skin: Warm and dry. No rashes or ulcers noted. Const: General: cooperative, no acute distress, well developed, awake, Physically active, average body habitus and well nourished Nutritional Appearance: average body habitus and well nourished Orientation/consciousness: oriented to person, oriented to place, oriented to time and patient oriented x3 HENMT: Head: normal to inspection, No palpable skull fracture present, normocephalic and atraumatic Ears: hearing grossly normal bilaterally Eyes: General: appearance normal, both eyes and all related structures Alignment and Position: alignment normal Periorbital: periorbital findings normal Eyelids: eyelids normal Pupils: Equal, round and reactive pupils present Neck: Neck: normal visual inspection and full ROM Chest: Chest palpation & inspection: normal inspection of the chest Resp: Effort & Inspection: normal respiratory effort Auscultation: clear to auscultation bilaterally Cardio: Palpation: normal PMI Rate: regular rate Rhythm: regular rhythm Heart sounds: S1 normal heart sound present and S2 normal heart sound present Peripheral pulses: Peripheral pulses 2+ throughout GI: Inspection: normal to inspection Auscultation: normal bowel sounds Rectal Exam: deferred Skin: General skin exam: normal color Lesions: no lesions Rashes: no rashes Trauma: no lacerations or abrasions Wounds: no wounds Hair: normal Nails: normal Neuro: General: oriented to person, oriented to place, oriented to time and patient oriented x3 Cranial nerves: Yes Equal, round and reactive pupils present and Yes Normal hearing present Cognition (Neuro): normal cognition Speech: normal speech Motor exam (neuro): 5/5 motor strength present throughout Sensory Exam: normal sensation Extrem: General: normal to inspection Right upper extremity: normal to inspection and shoulder/upper arm Left upper extremity: normal to inspection and shoulder/upper arm Right lower extremity: normal to inspection Left lower extremity: normal to inspection Psych: Mental Status: other Affect: normal affect Attitude: cooperative Objective Data Vital Signs Vital Signs: Vital Signs - 24 hr 06/09/25 16:00 06/09/25 19:45 06/09/25 21:00 Temperature 97.2 F L 97.7 F Pulse Rate 69 68 Respiratory Rate 13 20 Blood Pressure 122/57 L 117/66 Pulse Oximetry 100 97 Oxygen Delivery Room Air 06/09/25 22:40 06/10/25 00:00 06/10/25 03:28 Temperature 97.6 F 97.6 F Pulse Rate 80 70 68 Respiratory Rate 18 18 Blood Pressure 136/57 L 140/74 Pulse Oximetry 96 99 Oxygen Delivery 06/10/25 08:30 06/10/25 08:43 06/10/25 10:52 Temperature 97.6 F Pulse Rate 74 75 Respiratory Rate 18 Blood Pressure 103/56 L Pulse Oximetry 98 Oxygen Delivery Room Air 06/10/25 14:36 Temperature 97.6 F Pulse Rate 60 Respiratory Rate 18 Blood Pressure 117/58 L Pulse Oximetry 100 Oxygen Delivery Intake/Output Intake/Output: Intake & Output 06/07/25 06/08/25 06/09/25 06/10/25 23:59 23:59 23:59 23:59 Intake Total 1520 1230 1330 1110 Output Total 1400 2025 1250 1150 Balance 120 -795 80 -40 Meds/Results Medications: Active Medications Generic Name Dose Route Start Last Admin Trade Name Freq PRN Reason Stop Dose Admin Acetaminophen 650 mg 06/03/25 20:21 Acetaminophen 325 Mg Tablet PO Q6H PRN Mild Pain (1-3) or Fever Hydrocodone Bitart/Acetaminophen 1 tab 06/03/25 20:21 06/10/25 12:29 Hydrocodone/Acetaminophen (*Crx) 5-325 Mg Tablet PO 1 tab Q4H PRN Administration Pain Rated 4-6 Alteplase, Recombinant 2 mg 06/05/25 09:03 06/05/25 09:27 Alteplase 2 Mg Vial (Cathflo) IV PUSH 2 mg ONCE PRN Administration Line Occlusion Alteplase, Recombinant 2 mg 06/05/25 09:04 06/05/25 09:27 Alteplase 2 Mg Vial (Cathflo) IV PUSH 2 mg ONCE PRN Administration Line Occlusion Atorvastatin Calcium 20 mg 06/02/25 09:00 06/02/25 10:07 Atorvastatin 20 Mg Tablet BY MOUTH Not Given On Hold: 06/02/25 14:42 DAILY USAMA Bisacodyl 10 mg 06/02/25 03:32 Bisacodyl 10 Mg Suppository RECTAL DAILY PRN Constipation Clonidine HCl 0.3 mg 06/02/25 09:00 06/02/25 11:58 Clonidine Hcl 0.1 Mg Tablet BY MOUTH Not Given On Hold: 06/02/25 14:42 BID USAMA Dextrose 12.5 gm 06/02/25 03:31 Dextrose 50% 25 Gm/50 Ml Syringe IV PUSH PRN PRN Hypoglycemia Protocol Gabapentin 300 mg 06/02/25 09:00 06/02/25 10:07 Gabapentin 300 Mg Capsule PO Not Given On Hold: 06/02/25 14:42 DAILY USAMA Glucagon 1 mg 06/02/25 03:31 Glucagon For Inj 1 Mg Vial IM PRN PRN Hypoglycemia Protocol Glucose 15 gm 06/02/25 03:31 Glucose Oral Gel 15 Gm Of Glucse In 37.5 Gm Tube PO PRN PRN Hypoglycemia Protocol Heparin Sodium (Porcine) 5,000 units 06/10/25 07:00 06/10/25 14:41 Heparin Sodium 5,000 Units/Ml Vial SUB-Q 5,000 units Q8HR USAMA Administration Hydralazine HCl 25 mg 06/04/25 09:20 06/10/25 12:12 Hydralazine Hcl 25 Mg Tablet PO 25 mg Q6HR USAMA Administration Sodium Chloride 1,000 mls @ 75 mls/hr 06/02/25 03:30 06/02/25 04:14 Normal Saline Iv IV CONT 75 mls/hr On Hold: 06/02/25 10:04 .[id number] USAMA Administration Dextrose 1,000 mls @ 100 mls/hr 06/02/25 03:31 Dextrose 5% 1,000 Ml IVPB PRN PRN Hypoglycemia Protocol Albumin Human 50 mls @ 999 mls/hr 06/03/25 08:37 Albutein IVPB 07/03/25 08:36 Q10M PRN HYPOTENSION Metronidazole 500 mg in 100 mls @ 100 mls/hr 06/09/25 14:00 06/10/25 14:41 Flagyl 500 Mg/Iso Soln 100 Ml IVPB 100 mls/hr Q8H USAMA Administration Cefepime HCl 2 gm/ Sodium 50 mls @ 100 mls/hr 06/09/25 18:00 06/10/25 06:58 Chloride IVPB Infused Q12H USAMA Infusion Insulin Aspart 2 - 5 units 06/02/25 08:00 06/10/25 12:12 Insulin Aspart (*Bkc) 100 Units/Ml SUB-Q 4 units TIDWM USAMA Administration Protocol Isosorbide Mononitrate 30 mg 06/04/25 09:20 06/10/25 08:43 Isosorbide Mononitrate 30 Mg Tab.Er.24h PO 30 mg QAM USAMA Administration Metoprolol Tartrate 100 mg 06/02/25 09:00 06/10/25 08:43 Metoprolol Tartrate 50 Mg Tab BY MOUTH 100 mg Q12HR USAMA Administration Metoprolol Tartrate 5 mg 06/02/25 09:43 06/06/25 12:56 Metoprolol Tartrate Inj 5 Mg/5 Ml Vial IV PUSH 5 mg Q6H PRN Administration tachycardia >100 Nifedipine 30 mg 06/07/25 09:00 06/10/25 08:43 Nifedipine 30 Mg Tab.Er.24 PO 30 mg QAM USAMA Administration Pantoprazole Sodium 40 mg 06/02/25 09:00 06/02/25 10:07 Pantoprazole 40 Mg Tablet PO Not Given On Hold: 06/02/25 14:42 DAILY USAMA Tamsulosin HCl 0.4 mg 06/10/25 21:00 Tamsulosin Hcl 0.4 Mg Capsule PO QHS [facility] Radiology Results: ITS Impressions Head CT 06/01/25 19:30 IMPRESSION: 1. No acute intracranial findings or change from prior exam. Chest X-Ray 06/05/25 14:07 Impression: No acute cardiopulmonary abnormality. Chest/Abdomen/Pelvis CT 06/08/25 20:11 IMPRESSION: 1. Stable appearance of mild UIP pattern chronic interstitial lung disease with no acute cardiopulmonary disease. 2. Large ball of stool at rectum suspicious for constipation with fecal impaction. Mild stranding in the perirectal/presacral fat suggesting possible secondary stercoral colitis. 3. Mild haziness to the fat surrounding the decompressed bladder suspicious for cystitis. Correlate with urinalysis. Labs Labs: Laboratory Results - last 24 hr 06/09/25 06/09/25 06/10/25 16:41 19:47 04:08 WBC 24.8 H RBC 4.03 L Hgb 11.6 L Hct 36.3 L MCV 90.1 MCH 28.8 MCHC 32.0 RDW 13.9 Plt Count 180 MPV 10.1 Immature Gran % (Auto) Not Reportable Neut % (Auto) Not Reportable Lymph % (Auto) Not Reportable [place] % (Auto) Not Reportable Eos % (Auto) Not Reportable Baso % (Auto) Not Reportable Lymph # (Auto) Not Reportable [place] # (Auto) Not Reportable Eos # (Auto) Not Reportable Baso # (Auto) Not Reportable Abs Immat Gran (auto) Not Reportable Absolute Neuts (auto) Not Reportable Absolute Nucleated RBC Not Reportable Total Counted 100 Neutrophils % (Manual) 88 H Band Neutrophils % 1 Lymphocytes % (Manual) 8 L Monocytes % (Manual) 1 L Eosinophils % (Manual) 2 Nucleated RBC % Not Reportable Abs Neuts (Manual) 22.07 H Abs Lymphs (Manual) 1.98 Abs Monocytes (Manual) 0.24 Absolute Eos (Manual) 0.49 Platelet Estimate Adequate Schistocytes None seen Sodium 137 Potassium 3.7 Chloride 104 Carbon Dioxide 26 Anion Gap 7 BUN 36 H Creatinine 0.92 Estim Creat Clear Calc 43 Estimated GFR 60 Glucose 167 H POC Capillary Glucose 268 H 199 H Calcium 8.8 Phosphorus 2.3 L Magnesium 1.6 Total Bilirubin 0.3 AST 29 ALT 14 Alkaline Phosphatase 93 Total Protein 6.7 Albumin 3.2 L Urine Color Urine Appearance Urine pH Ur Specific [place] Urine Protein Urine Glucose (UA) Urine Ketones Ur Blood (Man) Urine Nitrate Urine Bilirubin Urine Urobilinogen Ur Leukocyte Esterase Add Ur Microanalysis Urine RBC Urine WBC Ur Squamous Epith Cells Urine Bacteria Urine Casts Urine Yeast (Budding) 06/10/25 06/10/25 06/10/25 08:06 11:47 13:50 WBC RBC Hgb Hct MCV MCH MCHC RDW Plt Count MPV Immature Gran % (Auto) Neut % (Auto) Lymph % (Auto) [place] % (Auto) Eos % (Auto) Baso % (Auto) Lymph # (Auto) [place] # (Auto) Eos # (Auto) Baso # (Auto) Abs Immat Gran (auto) Absolute Neuts (auto) Absolute Nucleated RBC Total Counted Neutrophils % (Manual) Band Neutrophils % Lymphocytes % (Manual) Monocytes % (Manual) Eosinophils % (Manual) Nucleated RBC % Abs Neuts (Manual) Abs Lymphs (Manual) Abs Monocytes (Manual) Absolute Eos (Manual) Platelet Estimate Schistocytes Sodium Potassium Chloride Carbon Dioxide Anion Gap BUN Creatinine Estim Creat Clear Calc Estimated GFR Glucose POC Capillary Glucose 226 H 308 H Calcium Phosphorus Magnesium Total Bilirubin AST ALT Alkaline Phosphatase Total Protein Albumin Urine Color Yellow Urine Appearance Cloudy H Urine pH 6.0 Ur Specific [place] 1.030 Urine Protein 1+ H Urine Glucose (UA) 3+ H Urine Ketones Negative Ur Blood (Man) Negative Urine Nitrate Negative Urine Bilirubin Negative Urine Urobilinogen 0.2 Ur Leukocyte Esterase Negative Add Ur Microanalysis Reviewed Urine RBC 0-2 Urine WBC 11-20 H Ur Squamous Epith Cells None seen Urine Bacteria None seen Urine Casts 0-2 Urine Yeast (Budding) Present H Hospitalist MIPS Advance Care Plan I have confirmed that the patient's Advanced Care Plan is present, code status is documented, or surrogate decision maker is listed in patient medical record.: Yes Medication Reconciliation I have utilized all available resources to obtain, update and review the patients current medications (includes all prescriptions, OTC, herbals, cannabis, and nutritional supplements).: Yes
--- NOTE | 2025-06-10 20:56 | P.PNINF_ITS ---
Progress Note: A&P Assessment and Plan (1) Severe sepsis: Code(s): A41.9 - Sepsis, unspecified organism; R65.20 - Severe sepsis without septic shock Status: Acute (2) Acute kidney injury: Code(s): N17.9 - Acute kidney failure, unspecified Status: Acute Assessment and Plan: -HD catheter placed on 06/03/25 -Acute HD management as per Nephrology service (3) Colitis: Code(s): K52.9 - Noninfective gastroenteritis and colitis, unspecified Status: Acute (4) Leukocytosis: Code(s): D72.829 - Elevated white blood cell count, unspecified Status: Acute Plan Continue cefepime/flagyl Plan to replace starr with urinary retention. Follow wbc trend. may expect continued static leukocytosis based on trend but monitor for trend up. Will anticipate keeping on current abx course for at least 5 days based on clinical status. Will send UA with reflex to [facility]. Patient was seen via video telehealth consultation with the assistance of staff. Chart, data, and patient independently reviewed. Patient was located at [facility] while I was located in my [place] office. Received verbal consent from patient. Subjective Date/time seen: 06/10/25 20:56 Interval history: a bit more alert today. did smile at times. baseline flat affect. denies abd pain today--states is better overall. Exam Narrative: flat affect but more alert today. more engaged in converstation no rash abd protuberant. no peritoneal signs. Objective Data Vital Signs Vital Signs: Vital Signs - 24 hr 06/09/25 21:00 06/09/25 22:40 06/10/25 00:00 Temperature 36.4 C Pulse Rate 80 70 Respiratory Rate 18 Blood Pressure 136/57 L Pulse Oximetry 96 Oxygen Delivery Room Air 06/10/25 03:28 06/10/25 08:30 06/10/25 08:43 Temperature 36.4 C Pulse Rate 68 74 Respiratory Rate 18 Blood Pressure 140/74 Pulse Oximetry 99 Oxygen Delivery Room Air 06/10/25 10:52 06/10/25 14:36 06/10/25 16:00 Temperature 36.4 C 36.4 C 36.4 C L Pulse Rate 75 60 67 Respiratory Rate 18 18 18 Blood Pressure 103/56 L 117/58 L 124/60 Pulse Oximetry 98 100 99 Oxygen Delivery 06/10/25 19:42 Temperature 36.4 C Pulse Rate 71 Respiratory Rate 18 Blood Pressure 102/49 L Pulse Oximetry 100 Oxygen Delivery Intake/Output Intake/Output: Intake & Output 06/07/25 06/08/25 06/09/25 06/10/25 23:59 23:59 23:59 23:59 Intake Total 1520 1230 1330 1700 Output Total 1400 2025 1250 1300 Balance 120 -795 80 400 Meds/Results Medications: Active Medications Generic Name Dose Route Start Last Admin Trade Name Freq PRN Reason Stop Dose Admin Acetaminophen 650 mg 06/03/25 20:21 Acetaminophen 325 Mg Tablet PO Q6H PRN Mild Pain (1-3) or Fever Hydrocodone Bitart/Acetaminophen 1 tab 06/03/25 20:21 06/10/25 17:39 Hydrocodone/Acetaminophen (*Crx) 5-325 Mg Tablet PO 1 tab Q4H PRN Administration Pain Rated 4-6 Alteplase, Recombinant 2 mg 06/05/25 09:03 06/05/25 09:27 Alteplase 2 Mg Vial (Cathflo) IV PUSH 2 mg ONCE PRN Administration Line Occlusion Alteplase, Recombinant 2 mg 06/05/25 09:04 06/05/25 09:27 Alteplase 2 Mg Vial (Cathflo) IV PUSH 2 mg ONCE PRN Administration Line Occlusion Atorvastatin Calcium 20 mg 06/02/25 09:00 06/02/25 10:07 Atorvastatin 20 Mg Tablet BY MOUTH Not Given On Hold: 06/02/25 14:42 DAILY [facility] Bisacodyl 10 mg 06/02/25 03:32 Bisacodyl 10 Mg Suppository RECTAL DAILY PRN Constipation Clonidine HCl 0.3 mg 06/02/25 09:00 06/02/25 11:58 Clonidine Hcl 0.1 Mg Tablet BY MOUTH Not Given On Hold: 06/02/25 14:42 BID [facility] Dextrose 12.5 gm 06/02/25 03:31 Dextrose 50% 25 Gm/50 Ml Syringe IV PUSH PRN PRN Hypoglycemia Protocol Gabapentin 300 mg 06/02/25 09:00 06/02/25 10:07 Gabapentin 300 Mg Capsule PO Not Given On Hold: 06/02/25 14:42 DAILY [facility] Glucagon 1 mg 06/02/25 03:31 Glucagon For Inj 1 Mg Vial IM PRN PRN Hypoglycemia Protocol Glucose 15 gm 06/02/25 03:31 Glucose Oral Gel 15 Gm Of Glucse In 37.5 Gm Tube PO PRN PRN Hypoglycemia Protocol Heparin Sodium (Porcine) 5,000 units 06/10/25 07:00 06/10/25 14:41 Heparin Sodium 5,000 Units/Ml Vial SUB-Q 5,000 units Q8HR [facility] Administration Hydralazine HCl 25 mg 06/04/25 09:20 06/10/25 17:40 Hydralazine Hcl 25 Mg Tablet PO 25 mg Q6HR [facility] Administration Sodium Chloride 1,000 mls @ 75 mls/hr 06/02/25 03:30 06/02/25 04:14 Normal Saline Iv IV CONT 75 mls/hr On Hold: 06/02/25 10:04 .[id number] [facility]AMA Administration Dextrose 1,000 mls @ 100 mls/hr 06/02/25 03:31 Dextrose 5% 1,000 Ml IVPB PRN PRN Hypoglycemia Protocol Albumin Human 50 mls @ 999 mls/hr 06/03/25 08:37 Albutein IVPB 07/03/25 08:36 Q10M PRN HYPOTENSION Metronidazole 500 mg in 100 mls @ 100 mls/hr 06/09/25 14:00 06/10/25 15:41 Flagyl 500 Mg/Iso Soln 100 Ml IVPB Infused Q8H [facility] Infusion Cefepime HCl 2 gm/ Sodium 50 mls @ 100 mls/hr 06/09/25 18:00 06/10/25 18:10 Chloride IVPB Infused Q12H [facility] Infusion Insulin Aspart 2 - 5 units 06/02/25 08:00 06/10/25 17:39 Insulin Aspart (*Bkc) 100 Units/Ml SUB-Q Not Given TIDWM [facility] Protocol Isosorbide Mononitrate 30 mg 06/04/25 09:20 06/10/25 08:43 Isosorbide Mononitrate 30 Mg Tab.Er.24h PO 30 mg QAM [facility] Administration Metoprolol Tartrate 100 mg 06/02/25 09:00 06/10/25 08:43 Metoprolol Tartrate 50 Mg Tab BY MOUTH 100 mg Q12HR [facility] Administration Metoprolol Tartrate 5 mg 06/02/25 09:43 06/06/25 12:56 Metoprolol Tartrate Inj 5 Mg/5 Ml Vial IV PUSH 5 mg Q6H PRN Administration tachycardia >100 Nifedipine 30 mg 06/07/25 09:00 06/10/25 08:43 Nifedipine 30 Mg Tab.Er.24 PO 30 mg QAM [facility] Administration Pantoprazole Sodium 40 mg 06/02/25 09:00 06/02/25 10:07 Pantoprazole 40 Mg Tablet PO Not Given On Hold: 06/02/25 14:42 DAILY [facility] Tamsulosin HCl 0.4 mg 06/10/25 21:00 Tamsulosin Hcl 0.4 Mg Capsule PO QHS [facility] Radiology Results: ITS Impressions Head CT 06/01/25 19:30 IMPRESSION: 1. No acute intracranial findings or change from prior exam. Chest X-Ray 06/05/25 14:07 Impression: No acute cardiopulmonary abnormality. Chest/Abdomen/Pelvis CT 06/08/25 20:11 IMPRESSION: 1. Stable appearance of mild UIP pattern chronic interstitial lung disease with no acute cardiopulmonary disease. 2. Large ball of stool at rectum suspicious for constipation with fecal impaction. Mild stranding in the perirectal/presacral fat suggesting possible secondary stercoral colitis. 3. Mild haziness to the fat surrounding the decompressed bladder suspicious for cystitis. Correlate with urinalysis. Labs Labs: Laboratory Results - last 24 hr 06/09/25 06/10/25 06/10/25 19:47 04:08 08:06 WBC 24.8 H RBC 4.03 L Hgb 11.6 L Hct 36.3 L MCV 90.1 MCH 28.8 MCHC 32.0 RDW 13.9 Plt Count 180 MPV 10.1 Immature Gran % (Auto) Not Reportable Neut % (Auto) Not Reportable Lymph % (Auto) Not Reportable [place] % (Auto) Not Reportable Eos % (Auto) Not Reportable Baso % (Auto) Not Reportable Lymph # (Auto) Not Reportable [place] # (Auto) Not Reportable Eos # (Auto) Not Reportable Baso # (Auto) Not Reportable Abs Immat Gran (auto) Not Reportable Absolute Neuts (auto) Not Reportable Absolute Nucleated RBC Not Reportable Total Counted 100 Neutrophils % (Manual) 88 H Band Neutrophils % 1 Lymphocytes % (Manual) 8 L Monocytes % (Manual) 1 L Eosinophils % (Manual) 2 Nucleated RBC % Not Reportable Abs Neuts (Manual) 22.07 H Abs Lymphs (Manual) 1.98 Abs Monocytes (Manual) 0.24 Absolute Eos (Manual) 0.49 Platelet Estimate Adequate Schistocytes None seen Sodium 137 Potassium 3.7 Chloride 104 Carbon Dioxide 26 Anion Gap 7 BUN 36 H Creatinine 0.92 Estim Creat Clear Calc 43 Estimated GFR 60 Glucose 167 H POC Capillary Glucose 199 H 226 H Calcium 8.8 Phosphorus 2.3 L Magnesium 1.6 Total Bilirubin 0.3 AST 29 ALT 14 Alkaline Phosphatase 93 Total Protein 6.7 Albumin 3.2 L Urine Color Urine Appearance Urine pH Ur Specific [place] Urine Protein Urine Glucose (UA) Urine Ketones Ur Blood (Man) Urine Nitrate Urine Bilirubin Urine Urobilinogen Ur Leukocyte Esterase Add Ur Microanalysis Urine RBC Urine WBC Ur Squamous Epith Cells Urine Bacteria Urine Casts Urine Yeast (Budding) 06/10/25 06/10/25 06/10/25 11:47 13:50 16:21 WBC RBC Hgb Hct MCV MCH MCHC RDW Plt Count MPV Immature Gran % (Auto) Neut % (Auto) Lymph % (Auto) [place] % (Auto) Eos % (Auto) Baso % (Auto) Lymph # (Auto) [place] # (Auto) Eos # (Auto) Baso # (Auto) Abs Immat Gran (auto) Absolute Neuts (auto) Absolute Nucleated RBC Total Counted Neutrophils % (Manual) Band Neutrophils % Lymphocytes % (Manual) Monocytes % (Manual) Eosinophils % (Manual) Nucleated RBC % Abs Neuts (Manual) Abs Lymphs (Manual) Abs Monocytes (Manual) Absolute Eos (Manual) Platelet Estimate Schistocytes Sodium Potassium Chloride Carbon Dioxide Anion Gap BUN Creatinine Estim Creat Clear Calc Estimated GFR Glucose POC Capillary Glucose 308 H 171 H Calcium Phosphorus Magnesium Total Bilirubin AST ALT Alkaline Phosphatase Total Protein Albumin Urine Color Yellow Urine Appearance Cloudy H Urine pH 6.0 Ur Specific [place] 1.030 Urine Protein 1+ H Urine Glucose (UA) 3+ H Urine Ketones Negative Ur Blood (Man) Negative Urine Nitrate Negative Urine Bilirubin Negative Urine Urobilinogen 0.2 Ur Leukocyte Esterase Negative Add Ur Microanalysis Reviewed Urine RBC 0-2 Urine WBC 11-20 H Ur Squamous Epith Cells None seen Urine Bacteria None seen Urine Casts 0-2 Urine Yeast (Budding) Present H
[2025-06-11] VITALS (11 sets, daily range): BP systolic 112–150; BP diastolic 51–73; PULSE 67–85; RESP 18–20; TEMP 36–36.8; O2SAT 93–100
[2025-06-11] MEDS: METOPROLOL TARTRATE 50 MG TAB PO ×3 (03:44→21:07)
[2025-06-11] MEDS: CALCIUM CARBONATE (TUMS) 500 MG (200 MG ELEMENTAL) PO (03:45)
[2025-06-11] MEDS: CEFEPIME 2 GM in SODIUM CHLORIDE 0.9% IV 50 ML 100 ML IVPB ×2 (05:49→17:41)
[2025-06-11 05:53] LABS: Hematocrit 35.2 % (37.0-47.0); Hemoglobin 11.2 g/dL (12.0-15.0); Immature Granulocyte Percent A 2.5 % (0-0.5); Immature Platelet Fraction Pct 5.2 % (0.9-11.2); Lymphocytes Absolute Auto 2.39 K/mm3 (0.9-3.2); Mean Corpuscular HGB Conc 31.8 g/dl (32-36); Mean Corpuscular Hemoglobin 29.1 pg (26-34); Mean Corpuscular Volume 91.4 fl (80-100); Nucleated Red Blood Cells Absolute Auto 0.000 K/mm3 (0.0-0.012); Nucleated Red Blood Cells Perc 0.0 % (0.0-0.2); Platelet Count Result 139 k/mm3 (150-375); Red Blood Count 3.85 M/mm3 (4.2-5.4); White Blood Count 26.7 K/mm3 (4.5-10.0)
[2025-06-11] MEDS: HYDROcodone/acetaminophen (*CRX) 5-325 MG TABLET 1 TAB PO ×4 (05:59→23:02)
[2025-06-11 06:16] LABS: Alanine Aminotransferase 15 U/L (6-35); Albumin Level 3.3 g/dL (3.5-5.1); Alkaline Phosphatase 91 U/L (38-126); Anion Gap 6 mmol/L (4-12); Aspartate Amino Transferase 30 U/L (14-36); Bilirubin,Total 0.3 mg/dL (0.2-1.3); Blood Urea Nitrogen 31 mg/dL (7-17); Calcium 8.7 mg/dL (8.4-10.2); Carbon Dioxide 25 mmol/L (22-30); Chloride 104 mmol/L (98-107); Estimated CRCL calculation 49 ml/min; Estimated Glomerular Filt Rate > 60; Glucose 180 mg/dL (65-110); Potassium 3.7 mmol/L (3.4-5.0); Sodium 135 mmol/L (137-145); Total Protein 6.6 g/dL (6.3-8.2)
[2025-06-11] MEDS: metroNIDAZOLE 500 MG/ISO 100ML 500 MG/100 ML BAG 100 MG IVPB ×3 (06:18→21:08)
[2025-06-11] MEDS: ISOSORBIDE MONONITRATE 30 MG TAB.ER.24H PO (09:45)
--- NOTE | 2025-06-11 09:49 | P.PNIM_ITS ---
Progress Note: A&P Assessment and Plan (1) RENEA (acute kidney injury): Code(s): N17.9 - Acute kidney failure, unspecified Status: Resolved Assessment and Plan: -the patient has acute on chronic renal failure with uremia -patient had a renal ultrasound on 04/27/2025: Trabeculated bladder appearance with thickening. Focal thickening more prominent superiorly on the right. Cannot exclude transitional cell carcinoma possibly superimposed on cystitis. Recommend urology consultation. -urology saw the patient on 04/27/2025 and noted no acute urological surgical intervention is indicated. It was noted that they will follow her peripherally. -BUN/Cr 39/0.95 > 36/0.92 Dialysis discontinued per Nephrology - Cr improving. Dialysis catheter removed. Associated metabolic acidosis has also resolved. -monitor BMP daily 06/11/2025 Stable, will repeat CMP tomorrow. Continue current treatment. (2) DM2 (diabetes mellitus, type 2): Qualifiers: Diabetes mellitus manager nc insulin use: without manager nc use Diabetes mellitus complication status: with hyperglycemia Qualified Code(s): E11.65 - Type 2 diabetes mellitus with hyperglycemia Code(s): E11.9 - Type 2 diabetes mellitus without complications Status: Chronic Assessment and Plan: Stable on current medication, will continue current treatment. (3) Essential (primary) hypertension: Code(s): I10 - Essential (primary) hypertension Status: Chronic Assessment and Plan: Stable on current medication, will continue current treatment. (4) Congestive heart failure: Code(s): I50.9 - Heart failure, unspecified Status: Chronic Assessment and Plan: -continue with metoprolol -echo showed left ventricular hypertrophy with hyperdynamic systolic -spironolactone, Rohanxiga on hold at this time. (5) Hyperlipidemia: Code(s): E78.5 - Hyperlipidemia, unspecified Status: Acute Assessment and Plan: -continue with atorvastatin and monitor liver enzymes (6) Generalized anxiety disorder: Code(s): F41.1 - Generalized anxiety disorder Status: Acute Assessment and Plan: Stable on current medication, will continue current treatment. (7) Hyperkalemia: Code(s): E87.5 - Hyperkalemia Status: Acute Assessment and Plan: -most likely secondary to the acute kidney injury -she has also been on spironolactone which is now on hold. -the patient was given Lokelma in the emergency room. resolved (8) Leukocytosis: Code(s): D72.829 - Elevated white blood cell count, unspecified Status: Acute Assessment and Plan: -In setting of severe sepsis w/o septic shock -Seen by ID- WBC worsening -CT A/P and chest reviewed- Chronic interstitial lung disease with old granulomatous disease on the chest, cystitis with urothelial enhancement extending proximally up the right ureter, early pyelonephritis, as well as constipation / fecal impaction. -However, patient is producing stools actively though 1 dose of lactulose was given to facilitate bowel movements. -ID has switched patient back to ceftriaxone/metronidazole from meropenem at this time. Urinary catheter also has been removed today, will be trending white blood cell count in the morning and repeating urine culture at their request if still trending up. -Cultures still pending-catheter tip culture from June 09 and urine culture from June 02 -Urine culture ordered today given continued increase of white blood cell count (9) Altered mental status: Qualifiers: Altered mental status type: unspecified Qualified Code(s): R41.82 - Altered mental status, unspecified Code(s): R41.82 - Altered mental status, unspecified Status: Acute Assessment and Plan: Suspected to be secondary to sepsis/RENEA- still not fully alert and oriented, but this appears to be improving. Continuing to monitor in association with improvement of suspected etiologies. Plan AMS from uremia, resolved improving with dialysis Pain medication and muscle relaxers held at this time due to her acute altered mental status. monitor Colitis CT AP reviewed Rocephin and Flagyl restarted 06/09, meropenem stopped 06/09 Leukocytosis 22.6 > 24 500 cc NS to be given at 75cc/hr and monitor WBC monitor Cystitis per CT AP urine culture (06/02) pending Rocephin and Flagyl restarted 06/09, meropenem stopped 06/09 monitor Tachycardia Resolved with restarting patient's home Metoprolol 100mg bid monitor Kidney failure resolving, possible placement DVT prophylaxis on Sq heparin PT/OT eval for discharge planning Subjective Date/time seen: 06/11/25 09:49 Interval history: Patient was seen during the morning rounds today. Patient is slightly more alert today. No shortness of breath or chest pain. No abdominal pain, nausea no vomiting. Review of Systems Review of Systems: ROS unobtainable: Yes unobtainable due to medical condition and unobtainable due to mental status ENT: Reports Normal hearing present Neurologic: Reports as per HPI and Reports Normal hearing present Exam Narrative: General: awake HEENT: Normocephalic. Atraumatic. Extraocular movement intact. Sclera clear and anicteric. No facial asymmetry. Chest: Lungs are coarse to auscultation bilaterally. CV: Heart was regular rate and rhythm. Abd: Abdomen was soft. Nontender. Nondistended. Positive bowel sounds. Ext: No clubbing, cyanosis, or edema. DP pulses bilaterally. Neuro: Patient is alert to voice and upon return able AOx2, following some commands. Symmetrical esters and emulsifiers supervisor strength and wiggles toes. Skin: Warm and dry. No rashes or ulcers noted. Const: General: cooperative, no acute distress, well developed, awake, Physically active, average body habitus and well nourished Nutritional Appearance: average body habitus and well nourished Orientation/consciousness: oriented to person, oriented to place, oriented to time and patient oriented x3 HENMT: Head: normal to inspection, No palpable skull fracture present, normocephalic and atraumatic Ears: hearing grossly normal bilaterally Eyes: General: appearance normal, both eyes and all related structures Al ignment and Position: alignment normal Periorbital: periorbital findings normal Eyelids: eyelids normal Pupils: Equal, round and reactive pupils present Neck: Neck: normal visual inspection and full ROM Chest: Chest palpation & inspection: normal inspection of the chest Resp: Effort & Inspection: normal respiratory effort Auscultation: clear to auscultation bilaterally Cardio: Palpation: normal PMI Rate: regular rate Rhythm: regular rhythm Heart sounds: S1 normal heart sound present and S2 normal heart sound present Peripheral pulses: Peripheral pulses 2+ throughout GI: Inspection: normal to inspection Auscultation: normal bowel sounds Rectal Exam: deferred Skin: General skin exam: normal color Lesions: no lesions Rashes: no rashes Trauma: no lacerations or abrasions Wounds: no wounds Hair: normal Nails: normal Neuro: General: oriented to person, oriented to place, oriented to time and patient oriented x3 Cranial nerves: Yes Equal, round and reactive pupils present and Yes Normal hearing present Cognition (Neuro): normal cognition Speech: normal speech Motor exam (neuro): 5/5 motor strength present throughout Sensory Exam: normal sensation Extrem: General: normal to inspection Right upper extremity: normal to inspection and shoulder/upper arm Left upper extremity: normal to inspection and shoulder/upper arm Right lower extremity: normal to inspection Left lower extremity: normal to inspection Psych: Mental Status: other Affect: normal affect Attitude: cooperative Objective Data Vital Signs Vital Signs: Vital Signs - 24 hr 06/10/25 10:52 06/10/25 14:36 06/10/25 16:00 Temperature 36.4 C 36.4 C 36.4 C L Pulse Rate 75 60 67 Respiratory Rate 18 18 18 Blood Pressure 103/56 L 117/58 L 124/60 Pulse Oximetry 98 100 99 Oxygen Delivery 06/10/25 19:42 06/10/25 21:00 06/10/25 21:20 Temperature 36.4 C Pulse Rate 71 Respiratory Rate 18 Blood Pressure 102/49 L 100/50 L Pulse Oximetry 100 Oxygen Delivery Room Air 06/10/25 21:23 06/11/25 00:00 06/11/25 03:07 Temperature 36.5 C 36.4 C L Pulse Rate 72 79 85 Respiratory Rate 18 18 Blood Pressure 128/66 141/62 H Pulse Oximetry 100 99 Oxygen Delivery 06/11/25 03:44 06/11/25 05:37 06/11/25 08:47 Temperature 36.4 C L Pulse Rate 85 67 Respiratory Rate 20 Blood Pressure 150/73 H 138/69 Pulse Oximetry 100 Oxygen Delivery 06/11/25 09:45 Temperature Pulse Rate 67 Respiratory Rate Blood Pressure Pulse Oximetry Oxygen Delivery Intake/Output Intake/Output: Intake & Output 06/08/25 06/09/25 06/10/25 06/11/25 23:59 23:59 23:59 23:59 Intake Total 1230 1330 1800 440 Output Total 2024 1250 1300 700 Balance -795 80 500 -260 Meds/Results Medications: Active Medications Generic Name Dose Route Start Last Admin Trade Name Freq PRN Reason Stop Dose Admin Acetaminophen 650 mg 06/03/25 20:21 Acetaminophen 325 Mg Tablet PO Q6H PRN Mild Pain (1-3) or Fever Hydrocodone Bitart/Acetaminophen 1 tab 06/03/25 20:21 06/11/25 09:44 Hydrocodone/Acetaminophen (*Crx) 5-325 Mg Tablet PO 1 tab Q4H PRN Administration Pain Rated 4-6 Atorvastatin Calcium 20 mg 06/02/25 09:00 06/02/25 10:07 Atorvastatin 20 Mg Tablet BY MOUTH Not Given On Hold: 06/02/25 14:42 DAILY [facility] Bisacodyl 10 mg 06/02/25 03:32 Bisacodyl 10 Mg Suppository RECTAL DAILY PRN Constipation Clonidine HCl 0.3 mg 06/02/25 09:00 06/02/25 11:58 Clonidine Hcl 0.1 Mg Tablet BY MOUTH Not Given On Hold: 06/02/25 14:42 BID USAMA Dextrose 12.5 gm 06/02/25 03:31 Dextrose 50% 25 Gm/50 Ml Syringe IV PUSH PRN PRN Hypoglycemia Protocol Gabapentin 300 mg 06/02/25 09:00 06/02/25 10:07 Gabapentin 300 Mg Capsule PO Not Given On Hold: 06/02/25 14:42 DAILY [facility] Glucagon 1 mg 06/02/25 03:31 Glucagon For Inj 1 Mg Vial IM PRN PRN Hypoglycemia Protocol Glucose 15 gm 06/02/25 03:31 Glucose Oral Gel 15 Gm Of Glucse In 37.5 Gm Tube PO PRN PRN Hypoglycemia Protocol Heparin Sodium (Porcine) 5,000 units 06/10/25 07:00 06/11/25 05:49 Heparin Sodium 5,000 Units/Ml Vial SUB-Q 5,000 units Q8HR [facility] Administration Hydralazine HCl 25 mg 06/04/25 09:20 06/11/25 05:49 Hydralazine Hcl 25 Mg Tablet PO 25 mg Q6HR [facility] Administration Sodium Chloride 1,000 mls @ 75 mls/hr 06/02/25 03:30 06/02/25 04:14 Normal Saline Iv IV CONT 75 mls/hr On Hold: 06/02/25 10:04 .[id number] US[facility] Administration Dextrose 1,000 mls @ 100 mls/hr 06/02/25 03:31 Dextrose 5% 1,000 Ml IVPB PRN PRN Hypoglycemia Protocol Albumin Human 50 mls @ 999 mls/hr 06/03/25 08:37 Albutein IVPB 07/03/25 08:36 Q10M PRN HYPOTENSION Metronidazole 500 mg in 100 mls @ 100 mls/hr 06/09/25 14:00 06/11/25 09:46 Flagyl 500 Mg/Iso Soln 100 Ml IVPB Infused Q8H [facility] Infusion Cefepime HCl 2 gm/ Sodium 50 mls @ 100 mls/hr 06/09/25 18:00 06/11/25 06:17 Chloride IVPB Infused Q12H [facility] Infusion Insulin Aspart 2 - 5 units 06/02/25 08:00 06/11/25 09:46 Insulin Aspart (*Bkc) 100 Units/Ml SUB-Q Not Given TIDWM [facility] Protocol Isosorbide Mononitrate 30 mg 06/04/25 09:20 06/11/25 09:45 Isosorbide Mononitrate 30 Mg Tab.Er.24h PO 30 mg QAM [facility] Administration Metoprolol Tartrate 5 mg 06/02/25 09:43 06/06/25 12:56 Metoprolol Tartrate Inj 5 Mg/5 Ml Vial IV PUSH 5 mg Q6H PRN Administration tachycardia >100 Metoprolol Tartrate 50 mg 06/11/25 09:15 06/11/25 09:45 Metoprolol Tartrate 50 Mg Tab PO 50 mg Q12HR [facility] Administration Nifedipine 30 mg 06/07/25 09:00 06/11/25 09:45 Nifedipine 30 Mg Tab.Er.24 PO 30 mg QAM [facility] Administration Pantoprazole Sodium 40 mg 06/02/25 09:00 06/02/25 10:07 Pantoprazole 40 Mg Tablet PO Not Given On Hold: 06/02/25 14:42 DAILY [facility] Tamsulosin HCl 0.4 mg 06/10/25 21:00 06/10/25 21:33 Tamsulosin Hcl 0.4 Mg Capsule PO 0.4 mg QHS [facility] Administration Radiology Results: ITS Impressions Head CT 06/01/25 19:30 IMPRESSION: 1. No acute intracranial findings or change from prior exam. Chest X-Ray 06/05/25 14:07 Impression: No acute cardiopulmonary abnormality. Chest/Abdomen/Pelvis CT 06/08/25 20:11 IMPRESSION: 1. Stable appearance of mild UIP pattern chronic interstitial lung disease with no acute cardiopulmonary disease. 2. Large ball of stool at rectum suspicious for constipation with fecal impaction. Mild stranding in the perirectal/presacral fat suggesting possible secondary stercoral colitis. 3. Mild haziness to the fat surrounding the decompressed bladder suspicious for cystitis. Correlate with urinalysis. Labs Labs: Laboratory Results - last 24 hr 06/10/25 06/10/25 06/10/25 11:47 13:50 16:21 WBC RBC Hgb Hct MCV MCH MCHC RDW Plt Count MPV Immature Gran % (Auto) Neut % (Auto) Lymph % (Auto) [place] % (Auto) Eos % (Auto) Baso % (Auto) Lymph # (Auto) [place] # (Auto) Eos # (Auto) Baso # (Auto) Abs Immat Gran (auto) Absolute Neuts (auto) Absolute Nucleated RBC Nucleated RBC % % Immature Plt Fraction Sodium Potassium Chloride Carbon Dioxide Anion Gap BUN Creatinine Estim Creat Clear Calc Estimated GFR Glucose POC Capillary Glucose 308 H 171 H Calcium Total Bilirubin AST ALT Alkaline Phosphatase Total Protein Albumin Urine Color Yellow Urine Appearance Cloudy H Urine pH 6.0 Ur Specific [place] 1.030 Urine Protein 1+ H Urine Glucose (UA) 3+ H Urine Ketones Negative Ur Blood (Man) Negative Urine Nitrate Negative Urine Bilirubin Negative Urine Urobilinogen 0.2 Ur Leukocyte Esterase Negative Add Ur Microanalysis Reviewed Urine RBC 0-2 Urine WBC 11-20 H Ur Squamous Epith Cells None seen Urine Bacteria None seen Urine Casts 0-2 Urine Yeast (Budding) Present H 06/10/25 06/11/25 06/11/25 19:47 05:14 07:48 WBC 26.7 H RBC 3.85 L Hgb 11.2 L Hct 35.2 L MCV 91.4 MCH 29.1 MCHC 31.8 L RDW 13.9 Plt Count 139 L MPV 10.4 Immature Gran % (Auto) 2.5 H Neut % (Auto) 81.9 H Lymph % (Auto) 8.9 L [place] % (Auto) 5.4 Eos % (Auto) 0.9 Baso % (Auto) 0.4 Lymph # (Auto) 2.39 [place] # (Auto) 1.4 H Eos # (Auto) 0.2 Baso # (Auto) 0.1 Abs Immat Gran (auto) 0.66 H Absolute Neuts (auto) 21.9 H Absolute Nucleated RBC 0.000 Nucleated RBC % 0.0 % Immature Plt Fraction 5.2 Sodium 135 L Potassium 3.7 Chloride 104 Carbon Dioxide 25 Anion Gap 6 BUN 31 H Creatinine 0.81 Estim Creat Clear Calc 49 Estimated GFR > 60 Glucose 180 H POC Capillary Glucose 298 H 160 H Calcium 8.7 Total Bilirubin 0.3 AST 30 ALT 15 Alkaline Phosphatase 91 Total Protein 6.6 Albumin 3.3 L Urine Color Urine Appearance Urine pH Ur Specific [place] Urine Protein Urine Glucose (UA) Urine Ketones Ur Blood (Man) Urine Nitrate Urine Bilirubin Urine Urobilinogen Ur Leukocyte Esterase Add Ur Microanalysis Urine RBC Urine WBC Ur Squamous Epith Cells Urine Bacteria Urine Casts Urine Yeast (Budding) Quality VTE Prophylaxis VTE prophylaxis: pharmacologic ordered
--- NOTE | 2025-06-11 10:50 | PCNFU ---
Nutrition Follow-Up Complete: Severe protein calorie malnutrition related to chronic loss of appetite as evidenced by weight loss 13%/7 months, 7%/1 month; intakes <75% needs >1 month; moderate fat loss; severe muscle wasting Goal:Intakes >50% Patient will continue current goal. Pt current nutrition is DBCC with Nepro BID. Last recorded weight is 66.3 kg, up from 61.6 kg on admit. Bowel Motility: Last reported BM 06/11 Labs Reviewed: Glu 180, Na 135, Alb 11.2, Hct 35.2, Hgb 11.2, BUN 31 Meds Noted: Protonix, Flagyl Skin: WNL Additional Notes: Patient remains on a DBCC diet with Nepro shakes BID. Tolerating current diet order. Diet supplements are being consumed and providing an additional 420 kcal and 19 gm protein. Agree with diet orders. Monitoring intakes, weights, labs, supplement intake, output, plan of care Follow up in 5 days
--- NOTE | 2025-06-11 11:36 | PCPTNOTE ---
Patient refused treatment this session. Educated patient on the importance of participating in PT to improve strength and mobility. Patient continues to refuse.
[2025-06-11] MEDS: INSULIN ASPART (*BKC) 100 UNITS/ML SUB-Q (12:18)
[2025-06-11] MEDS: FLUCONAZOLE 100 MG TABLET PO (12:21)
--- NOTE | 2025-06-11 18:10 | WPDINFPN2 ---
Progress Note: A&P Assessment and Plan (1) Severe sepsis: Code(s): A41.9 - Sepsis, unspecified organism; R65.20 - Severe sepsis without septic shock Status: Acute (2) Acute kidney injury: Code(s): N17.9 - Acute kidney failure, unspecified Status: Acute Assessment and Plan: -HD catheter placed on 06/03/25 -Acute HD management as per Nephrology service (3) Colitis: Code(s): K52.9 - Noninfective gastroenteritis and colitis, unspecified Status: Acute (4) Leukocytosis: Code(s): D72.829 - Elevated white blood cell count, unspecified Status: Acute Plan Continue cefepime/flagyl . Brief trial of fluconazole in patient with possible neurogenic process/ inflammatory bladder process and funguria. Will follow white count trend. Recent imaging so I do not see indication to reimage without clear focal signs. Follow wbc trend. may expect continued static leukocytosis based on trend but monitor for trend up. Monitor for phlebitis. Follow for aspiration. Patient was seen via video telehealth consultation with the assistance of staff. Chart, data, and patient independently reviewed. Patient was located at [facility] while I was located in my [place] office. Received verbal consent from patient. Subjective Date/time seen: 06/11/25 18:10 Interval history: complains of back and neck pain. Chronic issue. Seems to improve with repositioning. No neuro changes. Otherwise no nausea or vomiting. White count continues to trend up. Exam Narrative: She does describe some discomfort although there is no meningeal signs. She is fully alert. Engaged in conversation. Again more engaged towards the end of the week then earlier in the week. Full range of motion of her extremities. Follows all commands. no rash abd protuberant. no peritoneal signs. Objective Data Vital Signs Vital Signs: Vital Signs - 24 hr 06/10/25 19:42 06/10/25 21:00 06/10/25 21:20 Temperature 36.4 C Pulse Rate 71 Respiratory Rate 18 Blood Pressure 102/49 L 100/50 L Pulse Oximetry 100 Oxygen Delivery Room Air 06/10/25 21:23 06/11/25 00:00 06/11/25 03:07 Temperature 36.5 C 36.4 C L Pulse Rate 72 79 85 Respiratory Rate 18 18 Blood Pressure 128/66 141/62 H Pulse Oximetry 100 99 Oxygen Delivery 10/10/25 03:44 06/11/25 05:37 06/11/25 08:35 Temperature Pulse Rate 85 Respiratory Rate Blood Pressure 150/73 H Pulse Oximetry Oxygen Delivery Room Air 06/11/25 08:47 06/11/25 09:45 06/11/25 12:00 Temperature 36.4 C L 36.8 C Pulse Rate 67 67 69 Respiratory Rate 20 18 Blood Pressure 138/69 125/59 L Pulse Oximetry 100 99 Oxygen Delivery 06/11/25 15:45 Temperature 36.1 C L Pulse Rate 72 Respiratory Rate 18 Blood Pressure 117/51 L Pulse Oximetry 100 Oxygen Delivery Intake/Output Intake/Output: Intake & Output 06/08/25 06/09/25 06/10/25 06/11/25 23:59 23:59 23:59 23:59 Intake Total 1230 1330 1800 900 Output Total 2024 125 1300 700 Balance -795 80 500 200 Meds/Results Medications: Active Medications Generic Name Dose Route Start Last Admin Trade Name Freq PRN Reason Stop Dose Admin Acetaminophen 650 mg 06/03/25 20:21 Acetaminophen 325 Mg Tablet PO Q6H PRN Mild Pain (1-3) or Fever Hydrocodone Bitart/Acetaminophen 1 tab 06/03/25 20:21 06/11/25 14:28 Hydrocodone/Acetaminophen (*Crx) 5-325 Mg Tablet PO 1 tab Q4H PRN Administration Pain Rated 4-6 Atorvastatin Calcium 20 mg 06/02/25 09:00 06/02/25 10:07 Atorvastatin 20 Mg Tablet BY MOUTH Not Given On Hold: 06/02/25 14:42 DAILY USAMA Bisacodyl 10 mg 06/02/25 03:32 Bisacodyl 10 Mg Suppository RECTAL DAILY PRN Constipation Clonidine HCl 0.3 mg 06/02/25 09:00 06/02/25 11:58 Clonidine Hcl 0.1 Mg Tablet BY MOUTH Not Given On Hold: 06/02/25 14:42 BID USAMA Dextrose 12.5 gm 06/02/25 03:31 Dextrose 50% 25 Gm/50 Ml Syringe IV PUSH PRN PRN Hypoglycemia Protocol Fluconazole 100 mg 06/11/25 12:00 06/11/25 12:21 Fluconazole 100 Mg Tablet PO 06/15/25 09:01 100 mg QAM USAMA Administration Gabapentin 300 mg 06/02/25 09:00 06/02/25 10:07 Gabapentin 300 Mg Capsule PO Not Given On Hold: 06/02/25 14:42 DAILY USAMA Glucagon 1 mg 06/02/25 03:31 Glucagon For Inj 1 Mg Vial IM PRN PRN Hypoglycemia Protocol Glucose 15 gm 06/02/25 03:31 Glucose Oral Gel 15 Gm Of Glucse In 37.5 Gm Tube PO PRN PRN Hypoglycemia Protocol Heparin Sodium (Porcine) 5,000 units 06/10/25 07:00 06/11/25 14:17 Heparin Sodium 5,000 Units/Ml Vial SUB-Q 5,000 units Q8HR USAMA Administration Hydralazine HCl 25 mg 06/04/25 09:20 06/11/25 17:46 Hydralazine Hcl 25 Mg Tablet PO 25 mg Q6HR USAMA Administration Sodium Chloride 1,000 mls @ 75 mls/hr 06/02/25 03:30 06/02/25 04:14 Normal Saline Iv IV CONT 75 mls/hr On Hold: 06/02/25 10:04 .[id number] USAMA Administration Dextrose 1,000 mls @ 100 mls/hr 06/02/25 03:31 Dextrose 5% 1,000 Ml IVPB PRN PRN Hypoglycemia Protocol Albumin Human 50 mls @ 999 mls/hr 06/03/25 08:37 Albutein IVPB 07/03/25 08:36 Q10M PRN HYPOTENSION Metronidazole 500 mg in 100 mls @ 100 mls/hr 06/09/25 14:00 06/11/25 15:16 Flagyl 500 Mg/Iso Soln 100 Ml IVPB Infused Q8H USAMA Infusion Cefepime HCl 2 gm/ Sodium 50 mls @ 100 mls/hr 06/09/25 18:00 06/11/25 17:41 Chloride IVPB 100 mls/hr Q12H USAMA Administration Insulin Aspart 2 - 5 units 06/02/25 08:00 06/11/25 17:38 Insulin Aspart (*Bkc) 100 Units/Ml SUB-Q Not Given TIDWM USAMA Protocol Isosorbide Mononitrate 30 mg 06/04/25 09:20 06/11/25 09:45 Isosorbide Mononitrate 30 Mg Tab.Er.24h PO 30 mg QAM USAMA Administration Metoprolol Tartrate 5 mg 06/02/25 09:43 06/06/25 12:56 Metoprolol Tartrate Inj 5 Mg/5 Ml Vial IV PUSH 5 mg Q6H PRN Administration tachycardia >100 Metoprolol Tartrate 50 mg 06/11/25 09:15 06/11/25 09:45 Metoprolol Tartrate 50 Mg Tab PO 50 mg Q12HR USAMA Administration Nifedipine 30 mg 06/07/25 09:00 06/11/25 09:45 Nifedipine 30 Mg Tab.Er.24 PO 30 mg QAM USAMA Administration Pantoprazole Sodium 40 mg 06/02/25 09:00 06/02/25 10:07 Pantoprazole 40 Mg Tablet PO Not Given On Hold: 06/02/25 14:42 DAILY USAMA Tamsulosin HCl 0.4 mg 06/10/25 21:00 06/10/25 21:33 Tamsulosin Hcl 0.4 Mg Capsule PO 0.4 mg QHS USAMA Administration Radiology Results: ITS Impressions Head CT 06/01/25 19:30 IMPRESSION: 1. No acute intracranial findings or change from prior exam. Chest X-Ray 06/05/25 14:07 Impression: No acute cardiopulmonary abnormality. Chest/Abdomen/Pelvis CT 06/08/25 20:11 IMPRESSION: 1. Stable appearance of mild UIP pattern chronic interstitial lung disease with no acute cardiopulmonary disease. 2. Large ball of stool at rectum suspicious for constipation with fecal impaction. Mild stranding in the perirectal/presacral fat suggesting possible secondary stercoral colitis. 3. Mild haziness to the fat surrounding the decompressed bladder suspicious for cystitis. Correlate with urinalysis. Labs Labs: Laboratory Results - last 24 hr 06/10/25 06/11/25 06/11/25 19:47 05:14 07:48 WBC 26.7 H RBC 3.85 L Hgb 11.2 L Hct 35.2 L MCV 91.4 MCH 29.1 MCHC 31.8 L RDW 13.9 Plt Count 139 L MPV 10.4 Immature Gran % (Auto) 2.5 H Neut % (Auto) 81.9 H Lymph % (Auto) 8.9 L [place] % (Auto) 5.4 Eos % (Auto) 0.9 Baso % (Auto) 0.4 Lymph # (Auto) 2.39 [place] # (Auto) 1.4 H Eos # (Auto) 0.2 Baso # (Auto) 0.1 Abs Immat Gran (auto) 0.66 H Absolute Neuts (auto) 21.9 H Absolute Nucleated RBC 0.000 Nucleated RBC % 0.0 % Immature Plt Fraction 5.2 Sodium 135 L Potassium 3.7 Chloride 104 Carbon Dioxide 25 Anion Gap 6 BUN 31 H Creatinine 0.81 Estim Creat Clear Calc 49 Estimated GFR > 60 Glucose 180 H POC Capillary Glucose 298 H 160 H Calcium 8.7 Total Bilirubin 0.3 AST 30 ALT 15 Alkaline Phosphatase 91 Total Protein 6.6 Albumin 3.3 L 06/11/25 06/11/25 11:39 16:34 WBC RBC Hgb Hct MCV MCH MCHC RDW Plt Count MPV Immature Gran % (Auto) Neut % (Auto) Lymph % (Auto) [place] % (Auto) Eos % (Auto) Baso % (Auto) Lymph # (Auto) [place] # (Auto) Eos # (Auto) Baso # (Auto) Abs Immat Gran (auto) Absolute Neuts (auto) Absolute Nucleated RBC Nucleated RBC % % Immature Plt Fraction Sodium Potassium Chloride Carbon Dioxide Anion Gap BUN Creatinine Estim Creat Clear Calc Estimated GFR Glucose POC Capillary Glucose 281 H 157 H Calcium Total Bilirubin AST ALT Alkaline Phosphatase Total Protein Albumin
[2025-06-11] MEDS: TAMSULOSIN HCL 0.4 MG CAPSULE PO (21:08)
[2025-06-12] VITALS (9 sets, daily range): BP systolic 102–135; BP diastolic 50–65; PULSE 71–83; RESP 16–18; TEMP 36.2–36.4; O2SAT 96–99
[2025-06-12 05:09] LABS: Hematocrit 31.4 % (37.0-47.0); Hemoglobin 10.0 g/dL (12.0-15.0); Immature Granulocyte Percent A 2.5 % (0-0.5); Immature Platelet Fraction Pct 5.0 % (0.9-11.2); Lymphocytes Absolute Auto 3.09 K/mm3 (0.9-3.2); Mean Corpuscular HGB Conc 31.8 g/dl (32-36); Mean Corpuscular Hemoglobin 28.9 pg (26-34); Mean Corpuscular Volume 90.8 fl (80-100); Nucleated Red Blood Cells Absolute Auto 0.000 K/mm3 (0.0-0.012); Nucleated Red Blood Cells Perc 0.0 % (0.0-0.2); Platelet Count Result 118 k/mm3 (150-375); Red Blood Count 3.46 M/mm3 (4.2-5.4); White Blood Count 18.2 K/mm3 (4.5-10.0)
[2025-06-12] MEDS: CEFEPIME 2 GM in SODIUM CHLORIDE 0.9% IV 50 ML 100 ML IVPB ×2 (05:16→18:31)
[2025-06-12] MEDS: metroNIDAZOLE 500 MG/ISO 100ML 500 MG/100 ML BAG 100 MG IVPB ×3 (05:21→21:42)
[2025-06-12 05:35] LABS: Alanine Aminotransferase 17 U/L (6-35); Albumin Level 3.0 g/dL (3.5-5.1); Alkaline Phosphatase 87 U/L (38-126); Anion Gap 4 mmol/L (4-12); Aspartate Amino Transferase 32 U/L (14-36); Bilirubin,Total 0.3 mg/dL (0.2-1.3); Blood Urea Nitrogen 32 mg/dL (7-17); Calcium 8.4 mg/dL (8.4-10.2); Carbon Dioxide 25 mmol/L (22-30); Chloride 105 mmol/L (98-107); Estimated CRCL calculation 57 ml/min; Estimated Glomerular Filt Rate > 60; Glucose 151 mg/dL (65-110); Potassium 3.9 mmol/L (3.4-5.0); Sodium 134 mmol/L (137-145); Total Protein 6.2 g/dL (6.3-8.2)
[2025-06-12] MEDS: FLUCONAZOLE 100 MG TABLET PO (09:42)
[2025-06-12] MEDS: METOPROLOL TARTRATE 50 MG TAB PO ×2 (09:42→21:52)
[2025-06-12] MEDS: ISOSORBIDE MONONITRATE 30 MG TAB.ER.24H PO (09:42)
[2025-06-12 11:06] LABS: Potassium 4.0 mmol/L (3.4-5.0)
[2025-06-12] MEDS: INSULIN ASPART (*BKC) 100 UNITS/ML SUB-Q (12:21)
--- NOTE | 2025-06-12 14:50 | P.PNIM_ITS ---
Progress Note: A&P Assessment and Plan (1) RENEA (acute kidney injury): Code(s): N17.9 - Acute kidney failure, unspecified Status: Resolved Assessment and Plan: -the patient has acute on chronic renal failure with uremia -patient had a renal ultrasound on 04/27/2025: Trabeculated bladder appearance with thickening. Focal thickening more prominent superiorly on the right. Cannot exclude transitional cell carcinoma possibly superimposed on cystitis. Recommend urology consultation. -urology saw the patient on 04/27/2025 and noted no acute urological surgical intervention is indicated. It was noted that they will follow her peripherally. -BUN/Cr 39/0.95 > 36/0.92 Dialysis discontinued per Nephrology - Cr improving. Dialysis catheter removed. Associated metabolic acidosis has also resolved. -monitor BMP daily 06/11/2025 Stable, will repeat CMP daily Continue current treatment. (2) DM2 (diabetes mellitus, type 2): Qualifiers: Diabetes mellitus intermediate insulin use: without intermediate use Diabetes mellitus complication status: with hyperglycemia Qualified Code(s): E11.65 - Type 2 diabetes mellitus with hyperglycemia Code(s): E11.9 - Type 2 diabetes mellitus without complications Status: Chronic Assessment and Plan: Stable on current medication, will continue current treatment. (3) Essential (primary) hypertension: Code(s): I10 - Essential (primary) hypertension Status: Chronic Assessment and Plan: Stable on current medication, will continue current treatment. (4) Congestive heart failure: Code(s): I50.9 - Heart failure, unspecified Status: Chronic Assessment and Plan: -continue with metoprolol -echo showed left ventricular hypertrophy with hyperdynamic systolic -spironolactoneEllisga on hold at this time. (5) Hyperlipidemia: Code(s): E78.5 - Hyperlipidemia, unspecified Status: Acute Assessment and Plan: -continue with atorvastatin and monitor liver enzymes (6) Generalized anxiety disorder: Code(s): F41.1 - Generalized anxiety disorder Status: Acute Assessment and Plan: Stable on current medication, will continue current treatment. (7) Hyperkalemia: Code(s): E87.5 - Hyperkalemia Status: Acute Assessment and Plan: -most likely secondary to the acute kidney injury -she has also been on spironolactone which is now on hold. -the patient was given Lokelma in the emergency room. resolved (8) Leukocytosis: Code(s): D72.829 - Elevated white blood cell count, unspecified Status: Acute Assessment and Plan: -In setting of severe sepsis w/o septic shock -Seen by ID- WBC starting to improve, on cefepime/metronidazole/fluconazole -CT A/P and chest reviewed- Chronic interstitial lung disease with old granulomatous disease on the chest, cystitis with urothelial enhancement extending proximally up the right ureter, early pyelonephritis, as well as constipation / fecal impaction. -However, patient is producing stools actively though 1 dose of lactulose was given to facilitate bowel movements. -ID has switched patient back to ceftriaxone/metronidazole from meropenem at this time. Urinary catheter also has been removed today, will be trending white blood cell count in the morning and repeating urine culture at their request if still trending up. -Cultures still pending-catheter tip culture from June 09 and urine culture from June 02 -Urine culture ordered given continued increase of white blood cell count (9) Altered mental status: Qualifiers: Altered mental status type: unspecified Qualified Code(s): R41.82 - Altered mental status, unspecified Code(s): R41.82 - Altered mental status, unspecified Status: Acute Assessment and Plan: Suspected to be secondary to sepsis/RENEA- still not fully alert and oriented, but this appears to be improving. Continuing to monitor in association with improvement of suspected etiologies. (10) Urinary retention: Onset Date: ~03/2025 Code(s): R33.9 - Retention of urine, unspecified Status: Acute Assessment and Plan: Requiring starr catheter due to persistent retention with void trials Void trial tomorrow 06/13- urology consult if still no voiding Plan AMS from uremia, resolved improving with dialysis Pain medication and muscle relaxers held at this time due to her acute altered mental status. monitor Colitis CT AP reviewed Rocephin and Flagyl restarted 06/09, meropenem stopped 06/09 Leukocytosis 22.6 > 24 500 cc NS to be given at 75cc/hr and monitor WBC monitor Cystitis per CT AP urine culture (06/02) pending Rocephin and Flagyl restarted 06/09, meropenem stopped 06/09 monitor Tachycardia Resolved with restarting patient's home Metoprolol 100mg bid monitor Kidney failure resolving, possible placement DVT prophylaxis on Sq heparin PT/OT eval for discharge planning Subjective Date/time seen: 06/12/25 14:50 Review of Systems Review of Systems: All systems reviewed & are unremarkable except as noted in HPI and below Exam Narrative: General: awake HEENT: Normocephalic. Atraumatic. Extraocular movement intact. Sclera clear and anicteric. No facial asymmetry. Chest: Lungs are coarse to auscultation bilaterally. CV: Heart was regular rate and rhythm. Abd: Abdomen was soft. Nontender. Nondistended. Positive bowel sounds. Ext: No clubbing, cyanosis, or edema. DP pulses bilaterally. Neuro: Patient is alert to voice and upon return able AOx2, following some commands. 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 Skin: Warm and dry. No rashes or ulcers noted. Const: General: cooperative, no acute distress, well developed, awake, Physically active, average body habitus and well nourished Nutritional Appearance: average body habitus and well nourished Orientation/consciousness: oriented to person, oriented to place, oriented to time and patient oriented x3 HENMT: Head: normal to inspection, No palpable skull fracture present, normocephalic and atraumatic Ears: hearing grossly normal bilaterally Eyes: General: appearance normal, both eyes and all related structures Alignment and Position: alignment normal Periorbital: periorbital findings normal Eyelids: eyelids normal Pupils: Equal, round and reactive pupils present Neck: Neck: normal visual inspection and full ROM Chest: Chest palpation & inspection: normal inspection of the chest Resp: Effort & Inspection: normal respiratory effort Auscultation: clear to auscultation bilaterally Cardio: Palpation: normal PMI Rate: regular rate Rhythm: regular rhythm Heart sounds: S1 normal heart sound present and S2 normal heart sound present Peripheral pulses: Peripheral pulses 2+ throughout GI: Inspection: normal to inspection Auscultation: normal bowel sounds Rectal Exam: deferred Skin: General skin exam: normal color Lesions: no lesions Rashes: no rashes Trauma: no lacerations or abrasions Wounds: no wounds Hair: normal Nails: normal Neuro: General: oriented to person, oriented to place, oriented to time and patient oriented x3 Cranial nerves: Yes Equal, round and reactive pupils present and Yes Normal hearing present Cognition (Neuro): normal cognition Speech: normal speech Sensory Exam: normal sensation Extrem: General: normal to inspection Right upper extremity: normal to inspection and shoulder/upper arm Left upper extremity: normal to inspection and shoulder/upper arm Right lower extremity: normal to inspection Left lower extremity: normal to inspection Psych: Mental Status: other Affect: normal affect Attitude: cooperative Objective Data Vital Signs Vital Signs: Vital Signs - 24 hr 06/11/25 15:45 06/11/25 20:00 06/11/25 20:00 Temperature 97 F L 96.8 F L Pulse Rate 72 80 Respiratory Rate 18 18 Blood Pressure 117/51 L 112/56 L Pulse Oximetry 100 93 Oxygen Delivery Room Air 06/11/25 21:07 06/11/25 21:27 06/12/25 00:00 Temperature 97.6 F Pulse Rate 70 74 Respiratory Rate 18 Blood Pressure 111/57 L Pulse Oximetry 98 98 Oxygen Delivery Room Air 06/12/25 03:40 06/12/25 08:00 06/12/25 08:00 Temperature 97.6 F 97.6 F Pulse Rate 83 72 Respiratory Rate 18 17 Blood Pressure 135/63 130/62 Pulse Oximetry 96 96 Oxygen Delivery Room Air 06/12/25 09:42 06/12/25 11:58 Temperature Pulse Rate 76 Respiratory Rate Blood Pressure 127/65 Pulse Oximetry Oxygen Delivery Intake/Output Intake/Output: Intake & Output 06/09/25 06/10/25 06/11/25 06/12/25 23:59 23:59 23:59 23:59 Intake Total 1330 1800 1050 630 Output Total 1250 1300 1700 700 Balance 80 500 -650 -70 Meds/Results Medications: Active Medications Generic Name Dose Route Start Last Admin Trade Name Freq PRN Reason Stop Dose Admin Acetaminophen 650 mg 06/03/25 20:21 Acetaminophen 325 Mg Tablet PO Q6H PRN Mild Pain (1-3) or Fever Hydrocodone Bitart/Acetaminophen 1 tab 06/03/25 20:21 06/11/25 23:02 Hydrocodone/Acetaminophen (*Crx) 5-325 Mg Tablet PO 1 tab Q4H PRN Administration Pain Rated 4-6 Atorvastatin Calcium 20 mg 06/02/25 09:00 06/02/25 10:07 Atorvastatin 20 Mg Tablet BY MOUTH Not Given On Hold: 06/02/25 14:42 DAILY USAMA Bisacodyl 10 mg 06/02/25 03:32 Bisacodyl 10 Mg Suppository RECTAL DAILY PRN Constipation Clonidine HCl 0.3 mg 06/02/25 09:00 06/02/25 11:58 Clonidine Hcl 0.1 Mg Tablet BY MOUTH Not Given On Hold: 06/02/25 14:42 BID USAMA Dextrose 12.5 gm 06/02/25 03:31 Dextrose 50% 25 Gm/50 Ml Syringe IV PUSH PRN PRN Hypoglycemia Protocol Fluconazole 100 mg 06/11/25 12:00 06/12/25 09:42 Fluconazole 100 Mg Tablet PO 06/15/25 09:01 100 mg QAM USAMA Administration Gabapentin 300 mg 06/02/25 09:00 06/02/25 10:07 Gabapentin 300 Mg Capsule PO Not Given On Hold: 06/02/25 14:42 DAILY USAMA Glucagon 1 mg 06/02/25 03:31 Glucagon For Inj 1 Mg Vial IM PRN PRN Hypoglycemia Protocol Glucose 15 gm 06/02/25 03:31 Glucose Oral Gel 15 Gm Of Glucse In 37.5 Gm Tube PO PRN PRN Hypoglycemia Protocol Heparin Sodium (Porcine) 5,000 units 06/10/25 07:00 06/12/25 14:31 Heparin Sodium 5,000 Units/Ml Vial SUB-Q 5,000 units Q8HR USAMA Administration Hydralazine HCl 25 mg 06/04/25 09:20 06/12/25 11:51 Hydralazine Hcl 25 Mg Tablet PO 25 mg Q6HR USAMA Administration Sodium Chloride 1,000 mls @ 75 mls/hr 06/02/25 03:30 06/02/25 04:14 Normal Saline Iv IV CONT 75 mls/hr On Hold: 06/02/25 10:04 .[id number] USAMA Administration Dextrose 1,000 mls @ 100 mls/hr 06/02/25 03:31 Dextrose 5% 1,000 Ml IVPB PRN PRN Hypoglycemia Protocol Albumin Human 50 mls @ 999 mls/hr 06/03/25 08:37 Albutein IVPB 07/03/25 08:36 Q10M PRN HYPOTENSION Metronidazole 500 mg in 100 mls @ 100 mls/hr 06/09/25 14:00 06/12/25 14:31 Flagyl 500 Mg/Iso Soln 100 Ml IVPB 100 mls/hr Q8H USAMA Administration Cefepime HCl 2 gm/ Sodium 50 mls @ 100 mls/hr 06/09/25 18:00 06/12/25 05:16 Chloride IVPB 100 mls/hr Q12H USAMA Administration Insulin Aspart 2 - 5 units 06/02/25 08:00 06/12/25 12:21 Insulin Aspart (*Bkc) 100 Units/Ml SUB-Q 2 units TIDWM USAMA Administration Protocol Isosorbide Mononitrate 30 mg 06/04/25 09:20 06/12/25 09:42 Isosorbide Mononitrate 30 Mg Tab.Er.24h PO 30 mg QAM USAMA Administration Metoprolol Tartrate 5 mg 06/02/25 09:43 06/06/25 12:56 Metoprolol Tartrate Inj 5 Mg/5 Ml Vial IV PUSH 5 mg Q6H PRN Administration tachycardia >100 Metoprolol Tartrate 50 mg 06/11/25 09:15 06/12/25 09:42 Metoprolol Tartrate 50 Mg Tab PO 50 mg Q12HR USAMA Administration Nifedipine 30 mg 06/07/25 09:00 06/12/25 09:42 Nifedipine 30 Mg Tab.Er.24 PO 30 mg QAM USAMA Administration Pantoprazole Sodium 40 mg 06/02/25 09:00 06/02/25 10:07 Pantoprazole 40 Mg Tablet PO Not Given On Hold: 06/02/25 14:42 DAILY [facility] Tamsulosin HCl 0.4 mg 06/10/25 21:00 06/11/25 21:08 Tamsulosin Hcl 0.4 Mg Capsule PO 0.4 mg QHS USAMA Administration Radiology Results: ITS Impressions Head CT 06/01/25 19:30 IMPRESSION: 1. No acute intracranial findings or change from prior exam. Chest X-Ray 06/05/25 14:07 Impression: No acute cardiopulmonary abnormality. Chest/Abdomen/Pelvis CT 06/08/25 20:11 IMPRESSION: 1. Stable appearance of mild UIP pattern chronic interstitial lung disease with no acute cardiopulmonary disease. 2. Large ball of stool at rectum suspicious for constipation with fecal impaction. Mild stranding in the perirectal/presacral fat suggesting possible secondary stercoral colitis. 3. Mild haziness to the fat surrounding the decompressed bladder suspicious for cystitis. Correlate with urinalysis. Labs Labs: Laboratory Results - last 24 hr 06/08/25 06/11/25 06/11/25 07:39 16:34 20:38 WBC RBC Hgb Hct MCV MCH MCHC RDW Plt Count MPV Immature Gran % (Auto) Neut % (Auto) Lymph % (Auto) [place] % (Auto) Eos % (Auto) Baso % (Auto) Lymph # (Auto) [place] # (Auto) Eos # (Auto) Baso # (Auto) Abs Immat Gran (auto) Absolute Neuts (auto) Absolute Nucleated RBC Nucleated RBC % % Immature Plt Fraction Sodium Potassium Chloride Carbon Dioxide Anion Gap BUN Creatinine Estim Creat Clear Calc Estimated GFR Glucose POC Capillary Glucose 181 H 157 H 304 H Calcium Total Bilirubin AST ALT Alkaline Phosphatase Total Protein Albumin 06/12/25 06/12/25 06/12/25 04:45 07:50 10:52 WBC 18.2 H RBC 3.46 L Hgb 10.0 L Hct 31.4 L MCV 90.8 MCH 28.9 MCHC 31.8 L RDW 14.2 Plt Count 118 L MPV 10.3 Immature Gran % (Auto) 2.5 H Neut % (Auto) 71.4 Lymph % (Auto) 17.0 L [place] % (Auto) 6.4 Eos % (Auto) 2.3 Baso % (Auto) 0.4 Lymph # (Auto) 3.09 [place] # (Auto) 1.2 H Eos # (Auto) 0.4 H Baso # (Auto) 0.1 Abs Immat Gran (auto) 0.45 H Absolute Neuts (auto) 13.0 H Absolute Nucleated RBC 0.000 Nucleated RBC % 0.0 % Immature Plt Fraction 5.0 Sodium 134 L Potassium 3.9 4.0 Chloride 105 Carbon Dioxide 25 Anion Gap 4 BUN 32 H Creatinine 0.77 Estim Creat Clear Calc 57 Estimated GFR > 60 Glucose 151 H POC Capillary Glucose 181 H Calcium 8.4 Total Bilirubin 0.3 AST 32 ALT 17 Alkaline Phosphatase 87 Total Protein 6.2 L Albumin 3.0 L 06/12/25 11:59 WBC RBC Hgb Hct MCV MCH MCHC RDW Plt Count MPV Immature Gran % (Auto) Neut % (Auto) Lymph % (Auto) [place] % (Auto) Eos % (Auto) Baso % (Auto) Lymph # (Auto) [place] # (Auto) Eos # (Auto) Baso # (Auto) Abs Immat Gran (auto) Absolute Neuts (auto) Absolute Nucleated RBC Nucleated RBC % % Immature Plt Fraction Sodium Potassium Chloride Carbon Dioxide Anion Gap BUN Creatinine Estim Creat Clear Calc Estimated GFR Glucose POC Capillary Glucose 205 H Calcium Total Bilirubin AST ALT Alkaline Phosphatase Total Protein Albumin Quality VTE Prophylaxis VTE prophylaxis: pharmacologic ordered Hospitalist MIPS Advance Care Plan I have confirmed that the patient's Advanced Care Plan is present, code status is documented, or surrogate decision maker is listed in patient medical record.: Yes Medication Reconciliation I have utilized all available resources to obtain, update and review the patients current medications (includes all prescriptions, OTC, herbals, cannabis, and nutritional supplements).: Yes
[2025-06-12] MEDS: TAMSULOSIN HCL 0.4 MG CAPSULE PO (21:41)
[2025-06-12] MEDS: HYDROcodone/acetaminophen (*CRX) 5-325 MG TABLET 1 TAB PO (21:54)
[2025-06-13] VITALS (10 sets, daily range): BP systolic 102–144; BP diastolic 50–77; PULSE 69–114; RESP 16–18; TEMP 36.1–36.6; O2SAT 98–99
[2025-06-13 05:20] LABS: Hematocrit 30.6 % (37.0-47.0); Hemoglobin 9.8 g/dL (12.0-15.0); Immature Granulocyte Percent A 2.1 % (0-0.5); Immature Platelet Fraction Pct 6.9 % (0.9-11.2); Lymphocytes Absolute Auto 3.40 K/mm3 (0.9-3.2); Mean Corpuscular HGB Conc 32.0 g/dl (32-36); Mean Corpuscular Hemoglobin 28.8 pg (26-34); Mean Corpuscular Volume 90.0 fl (80-100); Nucleated Red Blood Cells Absolute Auto 0.000 K/mm3 (0.0-0.012); Nucleated Red Blood Cells Perc 0.0 % (0.0-0.2); Platelet Count Result 100 k/mm3 (150-375); Red Blood Count 3.40 M/mm3 (4.2-5.4); White Blood Count 16.2 K/mm3 (4.5-10.0)
[2025-06-13] MEDS: CEFEPIME 2 GM in SODIUM CHLORIDE 0.9% IV 50 ML 100 ML IVPB ×2 (05:27→18:16)
[2025-06-13] MEDS: metroNIDAZOLE 500 MG/ISO 100ML 500 MG/100 ML BAG 100 MG IVPB ×3 (05:27→21:13)
[2025-06-13 05:43] LABS: Alanine Aminotransferase 27 U/L (6-35); Albumin Level 2.9 g/dL (3.5-5.1); Alkaline Phosphatase 76 U/L (38-126); Anion Gap 4 mmol/L (4-12); Aspartate Amino Transferase 51 U/L (14-36); Bilirubin,Total 0.4 mg/dL (0.2-1.3); Blood Urea Nitrogen 27 mg/dL (7-17); Calcium 8.2 mg/dL (8.4-10.2); Carbon Dioxide 24 mmol/L (22-30); Chloride 107 mmol/L (98-107); Estimated CRCL calculation 50 ml/min; Estimated Glomerular Filt Rate > 60; Glucose 134 mg/dL (65-110); Potassium 3.8 mmol/L (3.4-5.0); Sodium 135 mmol/L (137-145); Total Protein 6.1 g/dL (6.3-8.2)
[2025-06-13] MEDS: INSULIN ASPART (*BKC) 100 UNITS/ML SUB-Q (08:54)
[2025-06-13] MEDS: FLUCONAZOLE 100 MG TABLET PO (08:55)
[2025-06-13] MEDS: ACETAMINOPHEN 325 MG TABLET 650 MG PO (10:33)
--- NOTE | 2025-06-13 12:59 | P.PNIM_ITS ---
Progress Note: A&P Assessment and Plan (1) RENEA (acute kidney injury): Code(s): N17.9 - Acute kidney failure, unspecified Status: Resolved Assessment and Plan: -the patient has acute on chronic renal failure with uremia -patient had a renal ultrasound on 04/27/2025: Trabeculated bladder appearance with thickening. Focal thickening more prominent superiorly on the right. Cannot exclude transitional cell carcinoma possibly superimposed on cystitis. Recommend urology consultation. -urology saw the patient on 04/27/2025 and noted no acute urological surgical intervention is indicated. It was noted that they will follow her peripherally. -BUN/Cr 39/0.95 > 36/0.92 Dialysis discontinued per Nephrology - Cr improving. Dialysis catheter removed. Associated metabolic acidosis has also resolved. -monitor BMP daily 06/11/2025 Stable, will repeat CMP daily Continue current treatment. (2) DM2 (diabetes mellitus, type 2): Qualifiers: Diabetes mellitus prison insulin use: without prison use Diabetes mellitus complication status: with hyperglycemia Qualified Code(s): E11.65 - Type 2 diabetes mellitus with hyperglycemia Code(s): E11.9 - Type 2 diabetes mellitus without complications Status: Chronic Assessment and Plan: Stable on current medication, will continue current treatment. (3) Essential (primary) hypertension: Code(s): I10 - Essential (primary) hypertension Status: Chronic Assessment and Plan: Stable on current medication, will continue current treatment. (4) Congestive heart failure: Code(s): I50.9 - Heart failure, unspecified Status: Chronic Assessment and Plan: -continue with metoprolol -echo showed left ventricular hypertrophy with hyperdynamic systolic -spironolactoneEllisga on hold at this time. (5) Hyperlipidemia: Code(s): E78.5 - Hyperlipidemia, unspecified Status: Acute Assessment and Plan: -continue with atorvastatin and monitor liver enzymes (6) Generalized anxiety disorder: Code(s): F41.1 - Generalized anxiety disorder Status: Acute Assessment and Plan: Stable on current medication, will continue current treatment. (7) Hyperkalemia: Code(s): E87.5 - Hyperkalemia Status: Acute Assessment and Plan: -most likely secondary to the acute kidney injury -she has also been on spironolactone which is now on hold. -the patient was given Lokelma in the emergency room. resolved (8) Leukocytosis: Code(s): D72.829 - Elevated white blood cell count, unspecified Status: Acute Assessment and Plan: -In setting of severe sepsis w/o septic shock -Seen by ID- WBC starting to improve, on cefepime/metronidazole/fluconazole -CT A/P and chest reviewed- Chronic interstitial lung disease with old granulomatous disease on the chest, cystitis with urothelial enhancement extending proximally up the right ureter, early pyelonephritis, as well as constipation / fecal impaction. -However, patient is producing stools actively though 1 dose of lactulose was given to facilitate bowel movements. -ID has switched patient back to ceftriaxone/metronidazole from meropenem at this time. Urinary catheter also has been removed today, will be trending white blood cell count in the morning and repeating urine culture at their request if still trending up. -Cultures still pending-catheter tip culture from June 09 and urine culture from June 02 -Urine culture ordered given continued increase of white blood cell count, white blood cell count is starting to downtrend now (9) Altered mental status: Qualifiers: Altered mental status type: unspecified Qualified Code(s): R41.82 - Altered mental status, unspecified Code(s): R41.82 - Altered mental status, unspecified Status: Acute Assessment and Plan: Suspected to be secondary to sepsis/RENEA-mental status appears to be improving. Continuing to monitor in association with improvement of suspected etiologies. (10) Urinary retention: Onset Date: ~03/2025 Code(s): R33.9 - Retention of urine, unspecified Status: Acute Assessment and Plan: Requiring starr catheter due to persistent retention with void trials Void trial- urology recommends to replace Starr if still having retention at this time (11) Leg pain, bilateral: Code(s): M79.604 - Pain in right leg; M79.605 - Pain in left leg Status: Acute Assessment and Plan: Patient reports pain in bilateral legs today, no significant changes from venous insufficiency. No edema, cellulitis, noted on exam. Ultrasound bilateral lower extremities to rule out DVT conducted-negative for DVT Pain control for now Reassess in the morning Plan AMS from uremia, resolved improving with dialysis Pain medication and muscle relaxers held at this time due to her acute altered mental status. monitor Colitis CT AP reviewed Rocephin and Flagyl restarted 06/09, meropenem stopped 06/09 Leukocytosis 22.6 > 24 500 cc NS to be given at 75cc/hr and monitor WBC monitor Cystitis per CT AP urine culture (06/02) pending Rocephin and Flagyl restarted 06/09, meropenem stopped 06/09 monitor Tachycardia Resolved with restarting patient's home Metoprolol 100mg bid monitor Kidney failure resolving, possible placement DVT prophylaxis on Sq heparin PT/OT eval for discharge planning Subjective Date/time seen: 06/13/25 12:59 Review of Systems Review of Systems: All systems reviewed & are unremarkable except as noted in HPI and below ROS unobtainable: Yes unobtainable due to medical condition and unobtainable due to mental status ENT: Reports Normal hearing present Neurologic: Reports as per HPI and Reports Normal hearing present Exam Narrative: General: awake HEENT: Normocephalic. Atraumatic. Extraocular movement intact. Sclera clear and anicteric. No facial asymmetry. Chest: Lungs are coarse to auscultation bilaterally. CV: Heart was regular rate and rhythm. Abd: Abdomen was soft. Nontender. Nondistended. Positive bowel sounds. Ext: No clubbing, cyanosis, or edema. DP pulses bilaterally. Neuro: Patient is alert to voice and upon return able AOx2, following some commands. 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 Skin: Warm and dry. No rashes or ulcers noted. Const: General: cooperative, no acute distress, well developed, awake, Physically active, average body habitus and well nourished Nutritional Appearance: average body habitus and well nourished Orientation/consciousness: oriented to person, oriented to place, oriented to time and patient oriented x3 HENMT: Head: normal to inspection, No palpable skull fracture present, normocephalic and atraumatic Ears: hearing grossly normal bilaterally Eyes: General: appearance normal, both eyes and all related structures Alignment and Position: alignment normal Periorbital: periorbital findings normal Eyelids: eyelids normal Pupils: Equal, round and reactive pupils present Neck: Neck: normal visual inspection and full ROM Chest: Chest palpation & inspection: normal inspection of the chest Resp: Effort & Inspection: normal respiratory effort Auscultation: clear to auscultation bilaterally Cardio: Palpation: normal PMI Rate: regular rate Rhythm: regular rhythm Heart sounds: S1 normal heart sound present and S2 normal heart sound present Peripheral pulses: Peripheral pulses 2+ throughout GI: Inspection: normal to inspection Auscultation: normal bowel sounds Rectal Exam: deferred Skin: General skin exam: normal color Lesions: no lesions Rashes: no rashes Trauma: no lacerations or abrasions Wounds: no wounds Hair: normal Nails: normal Neuro: General: oriented to person, oriented to place, oriented to time and patient oriented x3 Cranial nerves: Yes Equal, round and reactive pupils present and Yes Normal hearing present Cognition (Neuro): normal cognition Speech: normal speech Motor exam (neuro): 5/5 motor strength present throughout Sensory Exam: normal sensation Extrem: General: normal to inspection Right upper extremity: normal to inspection and shoulder/upper arm Left upper extremity: normal to inspection and shoulder/upper arm Right lower extremity: normal to inspection Left lower extremity: normal to inspection Psych: Mental Status: other Affect: normal affect Attitude: cooperative Objective Data Vital Signs Vital Signs: Vital Signs - 24 hr 06/12/25 16:00 06/12/25 18:26 06/12/25 20:00 Temperature 97.6 F 97.2 F L Pulse Rate 71 77 78 Respiratory Rate 16 16 Blood Pressure 102/58 L 114/52 L 115/50 L Pulse Oximetry 99 99 98 Oxygen Delivery 06/12/25 20:00 06/12/25 21:52 06/13/25 00:00 Temperature 97 F L Pulse Rate 78 72 Respiratory Rate 18 Blood Pressure 116/60 Pulse Oximetry 98 Oxygen Delivery Room Air 06/13/25 04:21 06/13/25 08:00 06/13/25 09:19 Temperature 97.1 F L Pulse Rate 69 75 Respiratory Rate 16 Blood Pressure 104/50 L Pulse Oximetry 98 Oxygen Delivery Room Air Intake/Output Intake/Output: Intake & Output 06/10/25 06/11/25 06/12/25 06/13/25 23:59 23:59 23:59 23:59 Intake Total 1800 1050 1020 410 Output Total 1300 1700 1600 850 Balance 500 -650 -580 -440 Meds/Results Medications: Active Medications Generic Name Dose Route Start Last Admin Trade Name Gerardoq PRN Reason Stop Dose Admin Acetaminophen 650 mg 06/03/25 20:21 06/13/25 10:33 Acetaminophen 325 Mg Tablet PO 650 mg Q6H PRN Administration Mild Pain (1-3) or Fever Hydrocodone Bitart/Acetaminophen 1 tab 06/03/25 20:21 06/12/25 21:54 Hydrocodone/Acetaminophen (*Crx) 5-325 Mg Tablet PO 1 tab Q4H PRN Administration Pain Rated 4-6 Atorvastatin Calcium 20 mg 06/02/25 09:00 06/02/25 10:07 Atorvastatin 20 Mg Tablet BY MOUTH Not Given On Hold: 06/02/25 14:42 DAILY USAMA Bisacodyl 10 mg 06/02/25 03:32 Bisacodyl 10 Mg Suppository RECTAL DAILY PRN Constipation Clonidine HCl 0.3 mg 06/02/25 09:00 06/02/25 11:58 Clonidine Hcl 0.1 Mg Tablet BY MOUTH Not Given On Hold: 06/02/25 14:42 BID USAMA Dextrose 12.5 gm 06/13/25 10:25 Dextrose 50% 25 Gm/50 Ml Syringe IV PUSH PRN PRN Hypoglycemia Protocol Fluconazole 100 mg 06/11/25 12:00 06/13/25 08:55 Fluconazole 100 Mg Tablet PO 06/15/25 09:01 100 mg QAM USAMA Administration Gabapentin 300 mg 06/02/25 09:00 06/02/25 10:07 Gabapentin 300 Mg Capsule PO Not Given On Hold: 06/02/25 14:42 DAILY USAMA Glucagon 1 mg 06/13/25 10:25 Glucagon For Inj 1 Mg Vial IM PRN PRN Hypoglycemia Protocol Glucose 15 gm 06/13/25 10:25 Glucose Oral Gel 15 Gm Of Glucse In 37.5 Gm Tube PO PRN PRN Hypoglycemia Protocol Heparin Sodium (Porcine) 5,000 units 06/10/25 07:00 06/13/25 06:04 Heparin Sodium 5,000 Units/Ml Vial SUB-Q 5,000 units Q8HR USAMA Administration Hydralazine HCl 25 mg 06/04/25 09:20 06/13/25 06:04 Hydralazine Hcl 25 Mg Tablet PO 25 mg Q6HR USAMA Administration Sodium Chloride 1,000 mls @ 75 mls/hr 06/02/25 03:30 06/02/25 04:14 Normal Saline Iv IV CONT 75 mls/hr On Hold: 06/02/25 10:04 .[id number] USAMA Administration Albumin Human 50 mls @ 999 mls/hr 06/03/25 08:37 Albutein IVPB 07/03/25 08:36 Q10M PRN HYPOTENSION Metronidazole 500 mg in 100 mls @ 100 mls/hr 06/09/25 14:00 06/13/25 05:27 Flagyl 500 Mg/Iso Soln 100 Ml IVPB 100 mls/hr Q8H USAMA Administration Cefepime HCl 2 gm/ Sodium 50 mls @ 100 mls/hr 06/09/25 18:00 06/13/25 05:27 Chloride IVPB 100 mls/hr Q12H USAMA Administration Dextrose 1,000 mls @ 100 mls/hr 06/13/25 10:25 Dextrose 5% 1,000 Ml IVPB PRN PRN Hypoglycemia Protocol Insulin Aspart 3 - 6 units 06/13/25 12:00 Insulin Aspart (*Bkc) 100 Units/Ml SUB-Q TIDWM USAMA Protocol Isosorbide Mononitrate 30 mg 06/04/25 09:20 06/13/25 09:19 Isosorbide Mononitrate 30 Mg Tab.Er.24h PO Not Given QAM USAMA Metoprolol Tartrate 5 mg 06/02/25 09:43 06/06/25 12:56 Metoprolol Tartrate Inj 5 Mg/5 Ml Vial IV PUSH 5 mg Q6H PRN Administration tachycardia >100 Metoprolol Tartrate 50 mg 06/11/25 09:15 06/13/25 09:19 Metoprolol Tartrate 50 Mg Tab PO Not Given Q12HR [facility] Miscellaneous Information 1 each 06/13/25 00:01 [place] Needs To Be Renewed Or It Will Automatically Discontinue. XX 07/13/25 00:00 CLARIFY USAMA Nifedipine 30 mg 06/07/25 09:00 06/13/25 09:19 Nifedipine 30 Mg Tab.Er.24 PO Not Given QAM USAMA Pantoprazole Sodium 40 mg 06/02/25 09:00 06/02/25 10:07 Pantoprazole 40 Mg Tablet PO Not Given On Hold: 06/02/25 14:42 DAILY USAMA Tamsulosin HCl 0.4 mg 06/10/25 21:00 06/12/25 21:41 Tamsulosin Hcl 0.4 Mg Capsule PO 0.4 mg QHS USAMA Administration Radiology Results: ITS Impressions Head CT 06/01/25 19:30 IMPRESSION: 1. No acute intracranial findings or change from prior exam. Chest X-Ray 06/05/25 14:07 Impression: No acute cardiopulmonary abnormality. Chest/Abdomen/Pelvis CT 06/08/25 20:11 IMPRESSION: 1. Stable appearance of mild UIP pattern chronic interstitial lung disease with no acute cardiopulmonary disease. 2. Large ball of stool at rectum suspicious for constipation with fecal impaction. Mild stranding in the perirectal/presacral fat suggesting possible secondary stercoral colitis. 3. Mild haziness to the fat surrounding the decompressed bladder suspicious for cystitis. Correlate with urinalysis. Venous Doppler Study 06/13/25 11:09 IMPRESSION: 1. No DVT either leg. Labs Labs: Laboratory Results - last 24 hr 06/12/25 06/12/25 06/13/25 17:05 20:22 05:08 WBC 16.2 H RBC 3.40 L Hgb 9.8 L Hct 30.6 L MCV 90.0 MCH 28.8 MCHC 32.0 RDW 14.6 H Plt Count 100 L MPV 11.1 H Immature Gran % (Auto) 2.1 H Neut % (Auto) 67.1 Lymph % (Auto) 21.0 Holmes % (Auto) 7.7 Eos % (Auto) 1.5 Baso % (Auto) 0.6 Lymph # (Auto) 3.40 H Holmes # (Auto) 1.3 H Eos # (Auto) 0.2 Baso # (Auto) 0.1 Abs Immat Gran (auto) 0.34 H Absolute Neuts (auto) 10.9 H Absolute Nucleated RBC 0.000 Nucleated RBC % 0.0 % Immature Plt Fraction 6.9 Sodium 135 L Potassium 3.8 Chloride 107 Carbon Dioxide 24 Anion Gap 4 BUN 27 H Creatinine 0.79 Estim Creat Clear Calc 50 Estimated GFR > 60 Glucose 134 H POC Capillary Glucose 166 H 138 H Calcium 8.2 L Total Bilirubin 0.4 AST 51 H ALT 27 Alkaline Phosphatase 76 Total Protein 6.1 L Albumin 2.9 L 06/13/25 06/13/25 07:59 11:33 WBC RBC Hgb Hct MCV MCH MCHC RDW Plt Count MPV Immature Gran % (Auto) Neut % (Auto) Lymph % (Auto) Holmes % (Auto) Eos % (Auto) Baso % (Auto) Lymph # (Auto) Holmes # (Auto) Eos # (Auto) Baso # (Auto) Abs Immat Gran (auto) Absolute Neuts (auto) Absolute Nucleated RBC Nucleated RBC % % Immature Plt Fraction Sodium Potassium Chloride Carbon Dioxide Anion Gap BUN Creatinine Estim Creat Clear Calc Estimated GFR Glucose POC Capillary Glucose 245 H 193 H Calcium Total Bilirubin AST ALT Alkaline Phosphatase Total Protein Albumin Quality VTE Prophylaxis VTE prophylaxis: pharmacologic ordered Hospitalist MIPS Advance Care Plan I have confirmed that the patient's Advanced Care Plan is present, code status is documented, or surrogate decision maker is listed in patient medical record.: Yes Medication Reconciliation I have utilized all available resources to obtain, update and review the patients current medications (includes all prescriptions, OTC, herbals, cannabis, and nutritional supplements).: Yes
[2025-06-13] MEDS: HYDROcodone/acetaminophen (*CRX) 5-325 MG TABLET 1 TAB PO ×2 (13:28→21:14)
[2025-06-13] MEDS: TAMSULOSIN HCL 0.4 MG CAPSULE PO (21:12)
[2025-06-13] MEDS: METOPROLOL TARTRATE 50 MG TAB PO (21:12)
[2025-06-13] MEDS: diazePAM (*CRX) 2 MG TABLET 1 MG PO (21:12)
[2025-06-14] VITALS (10 sets, daily range): BP systolic 106–152; BP diastolic 49–69; PULSE 73–99; RESP 16–18; TEMP 36.2–36.6; O2SAT 97–99
[2025-06-14] MEDS: metroNIDAZOLE 500 MG/ISO 100ML 500 MG/100 ML BAG 100 MG IVPB ×3 (05:08→21:39)
[2025-06-14] MEDS: CEFEPIME 2 GM in SODIUM CHLORIDE 0.9% IV 50 ML 100 ML IVPB ×2 (05:08→18:40)
[2025-06-14 08:41] LABS: Hematocrit 33.3 % (37.0-47.0); Hemoglobin 10.6 g/dL (12.0-15.0); Immature Granulocyte Percent A 1.4 % (0-0.5); Immature Platelet Fraction Pct 6.4 % (0.9-11.2); Lymphocytes Absolute Auto 3.39 K/mm3 (0.9-3.2); Mean Corpuscular HGB Conc 31.8 g/dl (32-36); Mean Corpuscular Hemoglobin 28.9 pg (26-34); Mean Corpuscular Volume 90.7 fl (80-100); Nucleated Red Blood Cells Absolute Auto 0.000 K/mm3 (0.0-0.012); Nucleated Red Blood Cells Perc 0.0 % (0.0-0.2); Platelet Count Result 98 k/mm3 (150-375); Red Blood Count 3.67 M/mm3 (4.2-5.4); White Blood Count 18.0 K/mm3 (4.5-10.0)
[2025-06-14] MEDS: HYDROcodone/acetaminophen (*CRX) 5-325 MG TABLET 1 TAB PO ×3 (09:30→21:43)
[2025-06-14] MEDS: ISOSORBIDE MONONITRATE 30 MG TAB.ER.24H PO (09:30)
[2025-06-14] MEDS: METOPROLOL TARTRATE 50 MG TAB PO ×2 (09:31→21:39)
[2025-06-14] MEDS: FLUCONAZOLE 100 MG TABLET PO (09:31)
--- NOTE | 2025-06-14 12:26 | P.PNIM_ITS ---
Progress Note: A&P Assessment and Plan (1) RENEA (acute kidney injury): Code(s): N17.9 - Acute kidney failure, unspecified Status: Resolved Assessment and Plan: -the patient has acute on chronic renal failure with uremia -patient had a renal ultrasound on 04/27/2025: Trabeculated bladder appearance with thickening. Focal thickening more prominent superiorly on the right. Cannot exclude transitional cell carcinoma possibly superimposed on cystitis. Recommend urology consultation. -urology saw the patient on 04/27/2025 and noted no acute urological surgical intervention is indicated. It was noted that they will follow her peripherally. -BUN/Cr 39/0.95 > 36/0.92 Dialysis discontinued per Nephrology - Cr improving. Dialysis catheter removed. Associated metabolic acidosis has also resolved. -monitor BMP daily 06/11/2025 Stable, will repeat CMP daily Continue current treatment. (2) DM2 (diabetes mellitus, type 2): Qualifiers: Diabetes mellitus alf insulin use: without alf use Diabetes mellitus complication status: with hyperglycemia Qualified Code(s): E11.65 - Type 2 diabetes mellitus with hyperglycemia Code(s): E11.9 - Type 2 diabetes mellitus without complications Status: Chronic Assessment and Plan: Stable on current medication, will continue current treatment. (3) Essential (primary) hypertension: Code(s): I10 - Essential (primary) hypertension Status: Chronic Assessment and Plan: Stable on current medication, will continue current treatment. (4) Congestive heart failure: Code(s): I50.9 - Heart failure, unspecified Status: Chronic Assessment and Plan: -continue with metoprolol -echo showed left ventricular hypertrophy with hyperdynamic systolic -spironolactoneEllisga on hold at this time. (5) Hyperlipidemia: Code(s): E78.5 - Hyperlipidemia, unspecified Status: Acute Assessment and Plan: -continue with atorvastatin and monitor liver enzymes (6) Generalized anxiety disorder: Code(s): F41.1 - Generalized anxiety disorder Status: Acute Assessment and Plan: Stable on current medication, will continue current treatment. (7) Hyperkalemia: Code(s): E87.5 - Hyperkalemia Status: Acute Assessment and Plan: -most likely secondary to the acute kidney injury -she has also been on spironolactone which is now on hold. -the patient was given Lokelma in the emergency room. resolved (8) Leukocytosis: Code(s): D72.829 - Elevated white blood cell count, unspecified Status: Acute Assessment and Plan: -In setting of severe sepsis w/o septic shock -Seen by ID- WBC starting to improve, on cefepime/metronidazole/fluconazole -CT A/P and chest reviewed- Chronic interstitial lung disease with old granulomatous disease on the chest, cystitis with urothelial enhancement extending proximally up the right ureter, early pyelonephritis, as well as constipation / fecal impaction. -However, patient is producing stools actively though 1 dose of lactulose was given to facilitate bowel movements. -ID has switched patient back to ceftriaxone/metronidazole from meropenem at this time. Urinary catheter also has been removed today, will be trending white blood cell count in the morning and repeating urine culture at their request if still trending up. -Cultures still pending-catheter tip culture from June 09 and urine culture from June 02 -Urine culture ordered given continued increase of white blood cell count-final result no growth -white blood cell count is trending up again, will have ID re-evaluate patient. Blood culture ordered (9) Altered mental status: Qualifiers: Altered mental status type: unspecified Qualified Code(s): R41.82 - Altered mental status, unspecified Code(s): R41.82 - Altered mental status, unspecified Status: Acute Assessment and Plan: Suspected to be secondary to sepsis/RENEA-mental status appears to be improving. Memory is still very limited, patient does not recall things that occurred the night before Continuing to monitor in association with improvement of suspected etiologies. (10) Urinary retention: Onset Date: ~03/2025 Code(s): R33.9 - Retention of urine, unspecified Status: Acute Assessment and Plan: Requiring starr catheter due to persistent retention with void trials Void trial-successful, patient is voiding without catheter at this time (11) Leg pain, bilateral: Code(s): M79.604 - Pain in right leg; M79.605 - Pain in left leg Status: Acute Assessment and Plan: Patient reports pain in bilateral legs today, no significant changes from venous insufficiency. No edema, cellulitis, noted on exam. Ultrasound bilateral lower extremities to rule out DVT conducted-negative for DVT Pain control for now (12) Thrombocytopenia: Code(s): D69.6 - Thrombocytopenia, unspecified Status: Acute Assessment and Plan: Patient initially presented during acute disease course with elevated platelet count that normalized on June 06. On June 09 platelet count was 263 with dropped to 180 on the . From there platelet count has been dropping daily basis and is currently 98. She has been on heparin subQ for DVT pr ophylaxis. Plan: Discontinued heparin this time Ordered heparin induced thrombocytopenia panel Ordered hematology evaluation Apixaban 2.5 mg b.i.d. for DVT prophylaxis until otherwise specified by He matology Plan AMS from uremia, resolved improving with dialysis Pain medication and muscle relaxers held at this time due to her acute altered mental status. monitor Colitis CT AP reviewed Rocephin and Flagyl restarted 06/09, meropenem stopped 06/09 Leukocytosis 22.6 > 24 500 cc NS to be given at 75cc/hr and monitor WBC monitor Cystitis per CT AP urine culture (06/02) pending Rocephin and Flagyl restarted 06/09, meropenem stopped 06/09 monitor Tachycardia Resolved with restarting patient's home Metoprolol 100mg bid monitor Kidney failure resolving, possible placement DVT prophylaxis on Sq heparin PT/OT eval for discharge planning Subjective Date/time seen: 06/14/25 12:26 Review of Systems Review of Systems: All systems reviewed & are unremarkable except as noted in HPI and below ROS unobtainable: Yes unobtainable due to medical condition and unobtainable due to mental status ENT: Reports Normal hearing present Neurologic: Reports as per HPI and Reports Normal hearing present Exam Narrative: General: awake HEENT: Normocephalic. Atraumatic. Extraocular movement intact. Sclera clear and anicteric. No facial asymmetry. Chest: Lungs are coarse to auscultation bilaterally. CV: Heart was regular rate and rhythm. Abd: Abdomen was soft. Nontender. Nondistended. Positive bowel sounds. Ext: No clubbing, cyanosis, or edema. DP pulses bilaterally. Neuro: Patient is alert to voice and upon return able AOx2, following some commands. Short-term memory is limited though. 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 Skin: Warm and dry. No rashes or ulcers noted. Const: General: cooperative, no acute distress, well developed, awake, Physically active, average body habitus and well nourished Nutritional Appearance: average body habitus and well nourished Orientation/consciousn ess: oriented to person, oriented to place, oriented to time and patient oriented x3 HENMT: Head: normal to inspection, No palpable skull fracture present, normocephalic and atraumatic Ears: hearing grossly normal bilaterally Eyes: General: appearance normal, both eyes and all related structures Alignment and Position: alignment normal Periorbital: periorbital findings normal Eyelids: eyelids normal Pupils: Equal, round and reactive pupils present Neck: Neck: normal visual inspection and full ROM Chest: Chest palpation & inspection: normal inspection of the chest Resp: Effort & Inspection: normal respiratory effort Auscultation: clear to auscultation bilaterally Cardio: Palpation: normal PMI Rate: regular rate Rhythm: regular rhythm Heart sounds: S1 normal heart sound present and S2 normal heart sound present Peripheral pulses: Peripheral pulses 2+ throughout GI: Inspection: normal to inspection Auscultation: normal bowel sounds Rectal Exam: deferred Skin: General skin exam: normal color Lesions: no lesions Rashes: no rashes Trauma: no lacerations or abrasions Wounds: no wounds Hair: normal Nails: normal Neuro: General: oriented to person, oriented to place, oriented to time and patient oriented x3 Cranial nerves: Yes Equal, round and reactive pupils present and Yes Normal hearing present Cognition (Neuro): normal cognition Speech: normal speech Motor exam (neuro): 5/5 motor strength present throughout Sensory Exam: normal sensation Extrem: General: normal to inspection Right upper extremity: normal to inspection and shoulder/upper arm Left upper extremity: normal to inspection and shoulder/upper arm Right lower extremity: normal to inspection Left lower extremity: normal to inspection Psych: Mental Status: other Affect: normal affect Attitude: cooperative Objective Data Vital Signs Vital Signs: Vital Signs - 24 hr 06/13/25 14:02 06/13/25 15:48 06/13/25 17:49 Temperature 97.2 F L 97.1 F L Pulse Rate 90 91 109 H Respiratory Rate 16 Blood Pressure 144/70 H 139/66 137/77 Pulse Oximetry 99 99 99 Oxygen Delivery 06/13/25 19:52 06/13/25 20:00 06/13/25 21:12 Temperature 97.7 F Pulse Rate 114 H 73 Respiratory Rate 18 Blood Pressure 128/50 L Pulse Oximetry 98 Oxygen Delivery Room Air 06/13/25 23:39 06/14/25 03:31 06/14/25 07:59 Temperature 98 F 97.1 F L Pulse Rate 84 78 85 Respiratory Rate 17 18 16 Blood Pressure 127/70 152/62 H 126/69 Pulse Oximetry 99 99 97 Oxygen Delivery 06/14/25 09:31 06/14/25 09:36 Temperature 97.8 F Pulse Rate 99 99 Respiratory Rate Blood Pressure 131/61 Pulse Oximetry 98 Oxygen Delivery Intake/Output Intake/Output: Intake & Output 06/11/25 06/12/25 06/13/25 06/14/25 23:59 23:59 23:59 23:59 Intake Total 1050 1020 1490 720 Output Total 1700 1600 1350 600 Balance -650 -580 140 120 Meds/Results Medications: Active Medications Generic Name Dose Route Start Last Admin Trade Name Freq PRN Reason Stop Dose Admin Acetaminophen 650 mg 06/03/25 20:21 06/13/25 10:33 Acetaminophen 325 Mg Tablet PO 650 mg Q6H PRN Administration Mild Pain (1-3) or Fever Hydrocodone Bitart/Acetaminophen 1 tab 06/03/25 20:21 06/14/25 09:30 Hydrocodone/Acetaminophen (*Crx) 5-325 Mg Tablet PO 1 tab Q4H PRN Administration Pain Rated 4-6 Apixaban 2.5 mg 06/14/25 21:00 Apixaban 2.5 Mg Tablet PO Q12HR USAMA Atorvastatin Calcium 20 mg 06/02/25 09:00 06/02/25 10:07 Atorvastatin 20 Mg Tablet BY MOUTH Not Given On Hold: 06/02/25 14:42 DAILY USAMA Bisacodyl 10 mg 06/02/25 03:32 Bisacodyl 10 Mg Suppository RECTAL DAILY PRN Constipation Buspirone HCl 10 mg 06/13/25 21:00 06/14/25 09:30 Buspirone Hcl 10 Mg Tablet PO 10 mg Q12HR USAMA Administration Clonidine HCl 0.3 mg 06/02/25 09:00 06/02/25 11:58 Clonidine Hcl 0.1 Mg Tablet BY MOUTH Not Given On Hold: 06/02/25 14:42 BID USAMA Dextrose 12.5 gm 06/13/25 10:25 Dextrose 50% 25 Gm/50 Ml Syringe IV PUSH PRN PRN Hypoglycemia Protocol Fluconazole 100 mg 06/11/25 12:00 06/14/25 09:31 Fluconazole 100 Mg Tablet PO 06/15/25 09:01 100 mg QAM USAMA Administration Gabapentin 300 mg 06/02/25 09:00 06/02/25 10:07 Gabapentin 300 Mg Capsule PO Not Given On Hold: 06/02/25 14:42 DAILY USAMA Glucagon 1 mg 06/13/25 10: Glucagon For Inj 1 Mg Vial IM PRN PRN Hypoglycemia Protocol Glucose 15 gm 06/13/25 10:25 Glucose Oral Gel 15 Gm Of Glucse In 37.5 Gm Tube PO PRN PRN Hypoglycemia Protocol Heparin Sodium (Porcine) 5,000 units 06/10/25 07:00 06/14/25 05:08 Heparin Sodium 5,000 Units/Ml Vial SUB-Q 5,000 units On Hold: 06/14/25 10:44 Q8HR USAMA Administration Hydralazine HCl 25 mg 06/04/25 09:20 06/14/25 05:09 Hydralazine Hcl 25 Mg Tablet PO 25 mg Q6HR USAMA Administration Sodium Chloride 1,000 mls @ 75 mls/hr 06/02/25 03:30 06/02/25 04:14 Normal Saline Iv IV CONT 75 mls/hr On Hold: 06/02/25 10:04 .[id number] USAMA Administration Albumin Human 50 mls @ 999 mls/hr 06/03/25 08:37 Albutein IVPB 07/03/25 08:36 Q10M PRN HYPOTENSION Metronidazole 500 mg in 100 mls @ 100 mls/hr 06/09/25 14:00 06/14/25 05:08 Flagyl 500 Mg/Iso Soln 100 Ml IVPB 100 mls/hr Q8H USAMA Administration Cefepime HCl 2 gm/ Sodium 50 mls @ 100 mls/hr 06/09/25 18:00 06/14/25 05:08 Chloride IVPB 100 mls/hr Q12H USAMA Administration Dextrose 1,000 mls @ 100 mls/hr 06/13/25 10:25 Dextrose 5% 1,000 Ml IVPB PRN PRN Hypoglycemia Protocol Insulin Aspart 3 - 6 units 06/13/25 12:00 06/14/25 09:36 Insulin Aspart (*Bkc) 100 Units/Ml SUB-Q Not Given TIDWM [facility] Protocol Isosorbide Mononitrate 30 mg 06/04/25 09:20 06/14/25 09:30 Isosorbide Mononitrate 30 Mg Tab.Er.24h PO 30 mg QAM USAMA Administration Metoprolol Tartrate 5 mg 06/02/25 09:43 06/06/25 12:56 Metoprolol Tartrate Inj 5 Mg/5 Ml Vial IV PUSH 5 mg Q6H PRN Administration tachycardia >100 Metoprolol Tartrate 50 mg 06/11/25 09:15 06/14/25 09:31 Metoprolol Tartrate 50 Mg Tab PO 50 mg Q12HR USAMA Administration Miscellaneous Information 1 each 06/13/25 00:01 Armour Needs To Be Renewed Or It Will Automatically Discontinue. XX 07/13/25 00:00 CLARIFY USAMA Nifedipine 30 mg 06/07/25 09:00 06/14/25 09:30 Nifedipine 30 Mg Tab.Er.24 PO 30 mg QAM USAMA Administration Pantoprazole Sodium 40 mg 06/02/25 09:00 06/02/25 10:07 Pantoprazole 40 Mg Tablet PO Not Given On Hold: 06/02/25 14:42 DAILY USAMA Tamsulosin HCl 0.4 mg 06/10/25 21:00 06/13/25 21:12 Tamsulosin Hcl 0.4 Mg Capsule PO 0.4 mg QHS USAMA Administration Radiology Results: ITS Impressions Head CT 06/01/25 19:30 IMPRESSION: 1. No acute intracranial findings or change from prior exam. Chest X-Ray 06/05/25 14:07 Impression: No acute cardiopulmonary abnormality. Chest/Abdomen/Pelvis CT 06/08/25 20:11 IMPRESSION: 1. Stable appearance of mild UIP pattern chronic interstitial lung disease with no acute cardiopulmonary disease. 2. Large ball of stool at rectum suspicious for constipation with fecal impac tion. Mild stranding in the perirectal/presacral fat suggesting possible secondary stercoral colitis. 3. Mild haziness to the fat surrounding the decompressed bladder suspicious for cystitis. Correlate with urinalysis. Venous Doppler Study 06/13/25 11:09 IMPRESSION: 1. No DVT either leg. Labs Labs: Laboratory Results - last 24 hr 06/13/25 06/13/25 06/14/25 16:48 19:56 07:57 WBC RBC Hgb Hct MCV MCH MCHC RDW Plt Count MPV Immature Gran % (Auto) Neut % (Auto) Lymph % (Auto) Gladwin % (Auto) Eos % (Auto) Baso % (Auto) Lymph # (Auto) Gladwin # (Auto) Eos # (Auto) Baso # (Auto) Abs Immat Gran (auto) Absolute Neuts (auto) Absolute Nucleated RBC Nucleated RBC % % Immature Plt Fraction POC Capillary Glucose 119 H 239 H 197 H 06/14/25 06/14/25 08:14 12:03 WBC 18.0 H RBC 3.67 L Hgb 10.6 L Hct 33.3 L MCV 90.7 MCH 28.9 MCHC 31.8 L RDW 15.2 H Plt Count 98 L MPV 11.3 H Immature Gran % (Auto) 1.4 H Neut % (Auto) 70.9 Lymph % (Auto) 18.9 Gladwin % (Auto) 7.3 Eos % (Auto) 1.1 Baso % (Auto) 0.4 Lymph # (Auto) 3.39 H Gladwin # (Auto) 1.3 H Eos # (Auto) 0.2 Baso # (Auto) 0.1 Abs Immat Gran (auto) 0.26 H Absolute Neuts (auto) 12.7 H Absolute Nucleated RBC 0.000 Nucleated RBC % 0.0 % Immature Plt Fraction 6.4 POC Capillary Glucose 159 H Quality VTE Prophylaxis VTE prophylaxis: mechanical ordered and pharmacologic ordered Hospitalist MIPS Advance Care Plan I have confirmed that the patient's Advanced Care Plan is present, code status is documented, or surrogate decision maker is listed in patient medical record.: Yes Medication Reconciliation I have utilized all available resources to obtain, update and review the patients current medications (includes all prescriptions, OTC, herbals, cannabis, and nutritional supplements).: Yes
[2025-06-14 13:04] LABS: Alanine Aminotransferase 43 U/L (6-35); Albumin Level 3.3 g/dL (3.5-5.1); Alkaline Phosphatase 99 U/L (38-126); Anion Gap 10 mmol/L (4-12); Aspartate Amino Transferase 62 U/L (14-36); Bilirubin,Total 0.4 mg/dL (0.2-1.3); Blood Urea Nitrogen 23 mg/dL (7-17); Calcium 8.6 mg/dL (8.4-10.2); Carbon Dioxide 18 mmol/L (22-30); Chloride 110 mmol/L (98-107); Estimated CRCL calculation 51 ml/min; Estimated Glomerular Filt Rate > 60; Glucose 171 mg/dL (65-110); Potassium 4.1 mmol/L (3.4-5.0); Sodium 138 mmol/L (137-145); Total Protein 6.9 g/dL (6.3-8.2)
--- NOTE | 2025-06-14 16:07 | PCPTNOTE ---
Patient refused treatment 3x today.
--- NOTE | 2025-06-14 18:28 | WPDONCCN ---
Assessment and Plan Assessment and plan (1) Thrombocytopenia: Code(s): D69.6 - Thrombocytopenia, unspecified Status: Acute Assessment and Plan: This is a pleasant female with history of hypothyroidism and diabetes admitted to the hospital with generalized weakness and diagnosed with UTI and sepsis. She also developed acute renal insufficiency. CT chest also showed mild interstitial lung disease. CT abdomen showed colitis and cystitis. Doppler study showed no evidence of DVT. Platelet count were normal on admission. Her thrombocytopenia secondary to sepsis and infection along with medications induced. Other possibilities include hit and autoimmune thrombocytopenia. Leukocytosis is also secondary to sepsis and infection. WBC count is slowly improving. I do not see any need for bone marrow biopsy testing. I will order C-reactive protein and sedimentation rate. I will also order platelet antibodies for ITP and hit antibodies. Have answered all the questions to patient's satisfaction. HPI Data of Consult Date/Time: 06/14/25 18:28 Requesting Physician: Melvin Diamond MD Primary Care Provider: Jose Lugo Consult Narrative Narrative: Aggie Donald is a 75 year old female 3 of hypothyroidism diabetes and UTI came into the hospital with generalized weakness and found to have elevated WBC count and the [place] [id number]. CT scan abdomen pelvis was performed that showed cystitis with mild colitis. Patient also developed acute renal insufficiency with uremia in sepsis. Platelet count dropped to 98,000. WBC count was as high as 35,000 but now has come down to 18,000. She denies any night sweats. Denies any new lung sounds are lymphadenopathy. Denies any bleeding. She denies any previous history of hematological disorders. No other new complaints. Review of Systems Review of Systems: Twelve point review of system was reviewed [facility] Past Medical History Medical History (Updated 06/14/25 @ 13:06 by Simon decker Oca, MD) Leukocytosis Generalized anxiety disorder Depression Hyperlipidemia Back pain Eczema Osteoarthritis Venous insufficiency (chronic) (peripheral) DM2 (diabetes mellitus, type 2) Non-ST elevated myocardial infarction (non-STEMI) Osteoarthritis of hands, bilateral Bilateral primary osteoarthritis of knee Essential (primary) hypertension Fibromyalgia Arthralgia of multiple joints Surgical History Surgical History History of tubal ligation (~1989) Family History Family History Grandparent Acute myocardial infarction Cerebrovascular accident Heart disease Mother Colon polyp Diabetes mellitus Pancreatic adenocarcinoma Other Depression Hypertension Neuralgia of both lower extremities Social History Social History Social History: Surrogate medical decision maker: Shravan Ramsay, spouse. Code status: Full code. Smoking status: Former smoker Second hand tobacco smoke exposure: No Alcohol intake: never Substance use: never Substance use type: former substance user and marijuana Last use: 03/26/25 Do You Feel Safe in your Home?: Yes Lack of Transportation: No Lack of Food: Never True Current Housing: I Have Housing Concerned About Future Housing: No Difficulty Paying Gas/Electric Bills: No Difficulty Paying for Meds: No Currently Unemployed: No Education: Associate Degree Difficulty w/ Childcare or Family Care: No Living arrangements: with family Occupation/Education: retired Spiritual care concerns: No Agree to blood products: Yes Meds Home Medications and Allergies Home Medications ?Medication ?Instructions ?Recorded ?Confirmed ?Type lancet with blood glucose test #300 ea 01/29/23 06/01/25 Rx strips and pen needles combo pack blood sugar diagnostic (OneTouch #300 ea 05/20/23 06/01/25 Rx Verio test strips) flash glucose scanning reader #1 ea 05/20/23 06/01/25 Rx (FreeStyle Yulia 2 [place]) ammonium lactate 12 % lotion 1 applic topical DAILY #225 grams 10/26/24 06/01/25 Rx (AmLactin) clonidine HCl 0.3 mg tablet See Rx Instructions .Route 12/27/24 06/01/25 Rx .COMPLEX #60 tabs buspirone 10 mg tablet 10 mg PO BID #60 tabs 02/06/25 06/01/25 Rx gabapentin 300 mg capsule 300 mg PO DAILY #90 caps 03/03/25 06/01/25 Rx baclofen 10 mg tablet 10 mg PO TID muscle spasm 03/26/25 06/01/25 History metoprolol tartrate 100 mg tablet See Rx Instructions .Route 03/29/25 06/01/25 Rx .COMPLEX #180 tabs atorvastatin 20 mg tablet See Rx Instructions .Route 04/07/25 06/01/25 Rx .COMPLEX #90 tabs duloxetine 60 mg capsule,delayed See Rx Instructions .Route 04/07/25 06/01/25 Rx release .COMPLEX #90 ea flash glucose sensor (FreeStyle #2 ea 04/12/25 06/01/25 Rx Yulia 2 Sensor kit) spironolactone 25 mg tablet See Rx Instructions .Route 04/28/25 06/01/25 Rx .COMPLEX #30 tabs hydrocodone 5 mg-acetaminophen 325 1 tablet PO Q6H PRN pain #20 tabs 04/30/25 06/01/25 Rx mg tablet pantoprazole 40 mg tablet,delayed 40 mg PO DAILY #60 tabs 05/27/25 06/01/25 Rx release bisacodyl 10 mg rectal suppository 10 mg RECTAL DAILY PRN constipation 06/01/25 06/01/25 History cholecalciferol (vitamin D3) 25 1,000 unit PO DAILY 06/01/25 06/01/25 History mcg (1,000 unit) tablet dapagliflozin propanediol 10 mg 10 mg PO DAILY 06/01/25 06/01/25 History tablet (Farxiga) fenofibrate 50 mg capsule 50 mg PO DAILY 06/01/25 06/01/25 History magnesium citrate (Citroma oral 296 ml PO DAILY PRN constipation 06/01/25 06/01/25 History solution) magnesium hydroxide 400 mg/5 mL 30 ml PO HS PRN constipation 06/01/25 06/01/25 History oral suspension pioglitazone 15 mg tablet 15 mg PO QAM 06/01/25 06/01/25 History semaglutide 7 mg tablet (Rybelsus) See Rx Instructions .Route 06/03/25 Rx .COMPLEX #30 tabs metformin 500 mg tablet,extended 1,000 mg (2 x 500 mg) PO BID #120 06/08/25 Rx release 24 hr tabs Allergies Allergy/AdvReac Type Severity Reaction Status Date / Time amoxicillin (From Augmentin) Allergy Unknown Verified 06/03/25 15:06 clavulanic acid (From Allergy Unknown Verified 06/03/25 15:06 Augmentin) Vital Signs Vital Signs - 24 hr 06/13/25 19:52 06/13/25 20:00 06/13/25 21:12 Temperature 36.5 C Pulse Rate 114 H 73 Respiratory Rate 18 Blood Pressure 128/50 L Pulse Oximetry 98 Oxygen Delivery Room Air 06/13/25 23:39 06/14/25 03:31 06/14/25 07:59 Temperature 36.6 C 36.2 C L Pulse Rate 84 78 85 Respiratory Rate 17 18 16 Blood Pressure 127/70 152/62 H 126/69 Pulse Oximetry 99 99 97 Oxygen Delivery 06/14/25 08:00 06/14/25 09:31 06/14/25 09:36 Temperature 36.6 C Pulse Rate 99 99 Respiratory Rate Blood Pressure 131/61 Pulse Oximetry 98 Oxygen Delivery Room Air 06/14/25 12:00 06/14/25 13:05 Temperature Pulse Rate 81 86 Respiratory Rate 16 Blood Pressure 123/59 L 109/49 L Pulse Oximetry 99 Oxygen Delivery Exam Narrative: Lungs are clear to auscultation bilaterally Cardiovascular regular rate rhythm no murmurs Abdomen is slightly distended bowel sounds are positive Extremities no edema Results Labs 06/14/25 08:14 06/14/25 08:14 Labs: Short CBC 06/14/25 Range/Units 08:14 WBC 18.0 H (4.5-10.0) K/mm3 Hgb 10.6 L (12.0-15.0) g/dL Hct 33.3 L (37.0-47.0) % Plt Count 98 L (150-375) k/mm3 BMP 06/14/25 08:14 Sodium 138 Potassium 4.1 Chloride 110 H Carbon Dioxide 18 L BUN 23 H Creatinine 0.77 Glucose 171 H Calcium 8.6 Liver Function 06/14/25 Range/Units 08:14 Total Bilirubin 0.4 (0.2-1.3) mg/dL AST 62 H (14-36) U/L ALT 43 H (6-35) U/L Alkaline Phosphatase 99 (38-126) U/L Albumin 3.3 L (3.5-5.1) g/dL
--- NOTE | 2025-06-14 19:07 | P.PNINF_ITS ---
Progress Note: A&P Assessment and Plan (1) Severe sepsis: Code(s): A41.9 - Sepsis, unspecified organism; R65.20 - Severe sepsis without septic shock Status: Acute (2) Acute kidney injury: Code(s): N17.9 - Acute kidney failure, unspecified Status: Acute Assessment and Plan: -HD catheter placed on 06/03/25 -Acute HD management as per Nephrology service (3) Colitis: Code(s): K52.9 - Noninfective gastroenteritis and colitis, unspecified Status: Acute (4) Leukocytosis: Code(s): D72.829 - Elevated white blood cell count, unspecified Status: Acute Plan Continue cefepime/flagyl . Continue fluconazole Serial CT with leukocytosis and abd pain. chronic colitis. no diarrhea for C diff. d/w Dr Núñez Follow wbc trend. may expect continued static leukocytosis based on trend but monitor for trend up. Monitor for phlebitis. Follow for aspiration. Patient was seen via video telehealth consultation with the assistance of staff. Chart, data, and patient independently reviewed. Patient was located at [facility] while I was located in my [place] office. Received verbal consent from patient. Subjective Date/time seen: 06/14/25 19:07 Interval history: feels terrible Pain all over. reviewed previous adimission with abd pain and GI evals. no fever. no LAWS. no neck pain today. Exam Narrative: Flat affect. She is fully alert. Engaged in conversation. . Full range of motion of her extremities. Follows all commands. no rash abd protuberant. still diffusely tender. no peritoneal signs. Objective Data Vital Signs Vital Signs: Vital Signs - 24 hr 06/13/25 19:52 06/13/25 20:00 06/13/25 21:12 Temperature 36.5 C Pulse Rate 114 H 73 Respiratory Rate 18 Blood Pressure 128/50 L Pulse Oximetry 98 Oxygen Delivery Room Air 06/13/25 23:39 06/14/25 03:31 06/14/25 07:59 Temperature 36.6 C 36.2 C L Pulse Rate 84 78 85 Respiratory Rate 17 18 16 Blood Pressure 127/70 152/62 H 126/69 Pulse Oximetry 99 99 97 Oxygen Delivery 06/14/25 08:00 06/14/25 09:31 06/14/25 09:36 Temperature 36.6 C Pulse Rate 99 99 Respiratory Rate Blood Pressure 131/61 Pulse Oximetry 98 Oxygen Delivery Room Air 06/14/25 12:00 06/14/25 13:05 06/14/25 16:00 Temperature 36.4 C L Pulse Rate 81 86 89 Respiratory Rate 16 16 Blood Pressure 123/59 L 109/49 L 113/53 L Pulse Oximetry 99 99 Oxygen Delivery 06/14/25 18:38 Temperature Pulse Rate 85 Respiratory Rate Blood Pressure 106/51 L Pulse Oximetry 99 Oxygen Delivery Intake/Output Intake/Output: Intake & Output 06/11/25 06/12/25 06/13/25 06/14/25 23:59 23:59 23:59 23:59 Intake Total 1050 1020 1490 1350 Output Total 1700 1600 1350 1000 Balance -650 -580 140 350 Meds/Results Medications: Active Medications Generic Name Dose Route Start Last Admin Trade Name Freq PRN Reason Stop Dose Admin Acetaminophen 650 mg 06/03/25 20:21 06/13/25 10:33 Acetaminophen 325 Mg Tablet PO 650 mg Q6H PRN Administration Mild Pain (1-3) or Fever Hydrocodone Bitart/Acetaminophen 1 tab 06/03/25 20:21 06/14/25 15:50 Hydrocodone/Acetaminophen (*Crx) 5-325 Mg Tablet PO 1 tab Q4H PRN Administration Pain Rated 4-6 Apixaban 2.5 mg 06/14/25 21:00 Apixaban 2.5 Mg Tablet PO Q12HR USAMA Atorvastatin Calcium 20 mg 06/02/25 09:00 06/02/25 10:07 Atorvastatin 20 Mg Tablet BY MOUTH Not Given On Hold: 06/02/25 14:42 DAILY USAMA Bisacodyl 10 mg 06/02/25 03:32 Bisacodyl 10 Mg Suppository RECTAL DAILY PRN Constipation Buspirone HCl 10 mg 06/13/25 21:00 06/14/25 09:30 Buspirone Hcl 10 Mg Tablet PO 10 mg Q12HR USAMA Administration Clonidine HCl 0.3 mg 06/02/25 09:00 06/02/25 11:58 Clonidine Hcl 0.1 Mg Tablet BY MOUTH Not Given On Hold: 06/02/25 14:42 BID USAMA Dextrose 12.5 gm 06/13/25 10:25 Dextrose 50% 25 Gm/50 Ml Syringe IV PUSH PRN PRN Hypoglycemia Protocol Fluconazole 100 mg 06/11/25 12:00 06/14/25 09:31 Fluconazole 100 Mg Tablet PO 06/15/25 09:01 100 mg QAM USAMA Administration Gabapentin 300 mg 06/02/25 09:00 06/02/25 10:07 Gabapentin 300 Mg Capsule PO Not Given On Hold: 06/02/25 14:42 DAILY USAMA Glucagon 1 mg 06/13/25 10:25 Glucagon For Inj 1 Mg Vial IM PRN PRN Hypoglycemia Protocol Glucose 15 gm 06/13/25 10:25 Glucose Oral Gel 15 Gm Of Glucse In 37.5 Gm Tube PO PRN PRN Hypoglycemia Protocol Heparin Sodium (Porcine) 5,000 units 06/10/25 07:00 06/14/25 05:08 Heparin Sodium 5,000 Units/Ml Vial SUB-Q 5,000 units On Hold: 06/14/25 10:44 Q8HR USAMA Administration Hydralazine HCl 25 mg 06/04/25 09:20 06/14/25 18:40 Hydralazine Hcl 25 Mg Tablet PO Not Given Q6HR USAMA Sodium Chloride 1,000 mls @ 75 mls/hr 06/02/25 03:30 06/02/25 04:14 Normal Saline Iv IV CONT 75 mls/hr On Hold: 06/02/25 10:04 .[id number] USAMA Administration Albumin Human 50 mls @ 999 mls/hr 06/03/25 08:37 Albutein IVPB 07/03/25 08:36 Q10M PRN HYPOTENSION Metronidazole 500 mg in 100 mls @ 100 mls/hr 06/09/25 14:00 06/14/25 15:49 Flagyl 500 Mg/Iso Soln 100 Ml IVPB 100 mls/hr Q8H USAMA Administration Cefepime HCl 2 gm/ Sodium 50 mls @ 100 mls/hr 06/09/25 18:00 06/14/25 18:40 Chloride IVPB 100 mls/hr Q12H USAMA Administration Dextrose 1,000 mls @ 100 mls/hr 06/13/25 10:25 Dextrose 5% 1,000 Ml IVPB PRN PRN Hypoglycemia Protocol Insulin Aspart 3 - 6 units 06/13/25 12:00 06/14/25 16:59 Insulin Aspart (*Bkc) 100 Units/Ml SUB-Q Not Given TIDWM USAMA Protocol Isosorbide Mononitrate 30 mg 06/04/25 09:20 06/14/25 09:30 Isosorbide Mononitrate 30 Mg Tab.Er.24h PO 30 mg QAM USAMA Administration Metoprolol Tartrate 5 mg 06/02/25 09:43 06/06/25 12:56 Metoprolol Tartrate Inj 5 Mg/5 Ml Vial IV PUSH 5 mg Q6H PRN Administration tachycardia >100 Metoprolol Tartrate 50 mg 06/11/25 09:15 06/14/25 09:31 Metoprolol Tartrate 50 Mg Tab PO 50 mg Q12HR USAMA Administration Miscellaneous Information 1 each 06/13/25 00:01 [place] Needs To Be Renewed Or It Will Automatically Discontinue. XX 07/13/25 00:00 CLARIFY USAMA Nifedipine 30 mg 06/07/25 09:00 06/14/25 09:30 Nifedipine 30 Mg Tab.Er.24 PO 30 mg QAM USAMA Administration Pantoprazole Sodium 40 mg 06/02/25 09:00 06/02/25 10:07 Pantoprazole 40 Mg Tablet PO Not Given On Hold: 06/02/25 14:42 DAILY USAMA Tamsulosin HCl 0.4 mg 06/10/25 21:00 06/13/25 21:12 Tamsulosin Hcl 0.4 Mg Capsule PO 0.4 mg QHS USAMA Administration Radiology Results: ITS Impressions Head CT 06/01/25 19:30 IMPRESSION: 1. No acute intracranial findings or change from prior exam. Chest X-Ray 06/05/25 14:07 Impression: No acute cardiopulmonary abnormality. Chest/Abdomen/Pelvis CT 06/08/25 20:11 IMPRESSION: 1. Stable appearance of mild UIP pattern chronic interstitial lung disease with no acute cardiopulmonary disease. 2. Large ball of stool at rectum suspicious for constipation with fecal impaction. Mild stranding in the perirectal/presacral fat suggesting possible secondary stercoral colitis. 3. Mild haziness to the fat surrounding the decompressed bladder suspicious for cystitis. Correlate with urinalysis. Venous Doppler Study 06/13/25 11:09 IMPRESSION: 1. No DVT either leg. Labs Labs: Laboratory Results - last 24 hr 06/13/25 06/14/25 06/14/25 19:56 07:57 08:14 WBC 18.0 H RBC 3.67 L Hgb 10.6 L Hct 33.3 L MCV 90.7 MCH 28.9 MCHC 31.8 L RDW 15.2 H Plt Count 98 L MPV 11.3 H Immature Gran % (Auto) 1.4 H Neut % (Auto) 70.9 Lymph % (Auto) 18.9 [place] % (Auto) 7.3 Eos % (Auto) 1.1 Baso % (Auto) 0.4 Lymph # (Auto) 3.39 H [place] # (Auto) 1.3 H Eos # (Auto) 0.2 Baso # (Auto) 0.1 Abs Immat Gran (auto) 0.26 H Absolute Neuts (auto) 12.7 H Absolute Nucleated RBC 0.000 Nucleated RBC % 0.0 % Immature Plt Fraction 6.4 Sodium 138 Potassium 4.1 Chloride 110 H Carbon Dioxide 18 L Anion Gap 10 BUN 23 H Creatinine 0.77 Estim Creat Clear Calc 51 Estimated GFR > 60 Glucose 171 H POC Capillary Glucose 239 H 197 H Calcium 8.6 Total Bilirubin 0.4 AST 62 H ALT 43 H Alkaline Phosphatase 99 Total Protein 6.9 Albumin 3.3 L 06/14/25 06/14/25 12:03 16:49 WBC RBC Hgb Hct MCV MCH MCHC RDW Plt Count MPV Immature Gran % (Auto) Neut % (Auto) Lymph % (Auto) [place] % (Auto) Eos % (Auto) Baso % (Auto) Lymph # (Auto) [place] # (Auto) Eos # (Auto) Baso # (Auto) Abs Immat Gran (auto) Absolute Neuts (auto) Absolute Nucleated RBC Nucleated RBC % % Immature Plt Fraction Sodium Potassium Chloride Carbon Dioxide Anion Gap BUN Creatinine Estim Creat Clear Calc Estimated GFR Glucose POC Capillary Glucose 159 H 166 H Calcium Total Bilirubin AST ALT Alkaline Phosphatase Total Protein Albumin
[2025-06-14 20:38] LABS: CRP 1.2 mg/dL (<1.0)
[2025-06-14] MEDS: APIXABAN 2.5 MG TABLET PO (21:39)
[2025-06-14] MEDS: TAMSULOSIN HCL 0.4 MG CAPSULE PO (21:39)
[2025-06-15] VITALS (10 sets, daily range): BP systolic 101–134; BP diastolic 53–77; PULSE 76–110; RESP 17–18; TEMP 36.4–36.7; O2SAT 91–99
[2025-06-15 05:33] LABS: Hematocrit 27.9 % (37.0-47.0); Hemoglobin 8.8 g/dL (12.0-15.0); Immature Granulocyte Percent A 1.4 % (0-0.5); Immature Platelet Fraction Pct 6.1 % (0.9-11.2); Lymphocytes Absolute Auto 3.76 K/mm3 (0.9-3.2); Mean Corpuscular HGB Conc 31.5 g/dl (32-36); Mean Corpuscular Hemoglobin 28.7 pg (26-34); Mean Corpuscular Volume 90.9 fl (80-100); Nucleated Red Blood Cells Absolute Auto 0.000 K/mm3 (0.0-0.012); Nucleated Red Blood Cells Perc 0.0 % (0.0-0.2); Platelet Count Result 100 k/mm3 (150-375); Red Blood Count 3.07 M/mm3 (4.2-5.4); White Blood Count 16.3 K/mm3 (4.5-10.0)
[2025-06-15] MEDS: metroNIDAZOLE 500 MG/ISO 100ML 500 MG/100 ML BAG 100 MG IVPB ×3 (05:35→21:41)
[2025-06-15] MEDS: CEFEPIME 2 GM in SODIUM CHLORIDE 0.9% IV 50 ML 100 ML IVPB ×2 (05:35→17:16)
[2025-06-15 05:44] LABS: Alanine Aminotransferase 35 U/L (6-35); Albumin Level 3.0 g/dL (3.5-5.1); Alkaline Phosphatase 75 U/L (38-126); Anion Gap 6 mmol/L (4-12); Aspartate Amino Transferase 36 U/L (14-36); Bilirubin,Total 0.3 mg/dL (0.2-1.3); Blood Urea Nitrogen 25 mg/dL (7-17); Calcium 8.6 mg/dL (8.4-10.2); Carbon Dioxide 21 mmol/L (22-30); Chloride 110 mmol/L (98-107); Estimated CRCL calculation 49 ml/min; Estimated Glomerular Filt Rate > 60; Glucose 127 mg/dL (65-110); Potassium 4.0 mmol/L (3.4-5.0); Sodium 137 mmol/L (137-145); Total Protein 6.2 g/dL (6.3-8.2)
[2025-06-15 08:44] LABS: Iron 51 ug/dL (37-170)
[2025-06-15 08:53] LABS: Percent Iron Saturation 21 % (20-50)
[2025-06-15] MEDS: METOPROLOL TARTRATE 50 MG TAB PO ×2 (09:17→21:41)
[2025-06-15] MEDS: APIXABAN 2.5 MG TABLET PO ×2 (09:17→21:41)
[2025-06-15] MEDS: FLUCONAZOLE 100 MG TABLET PO (09:17)
[2025-06-15] MEDS: ISOSORBIDE MONONITRATE 30 MG TAB.ER.24H PO (09:18)
[2025-06-15 09:25] LABS: Ferritin 52.20 ng/mL (11.1-264)
--- NOTE | 2025-06-15 11:50 | WPDINFPN2 ---
Progress Note: A&P Assessment and Plan (1) Severe sepsis: Code(s): A41.9 - Sepsis, unspecified organism; R65.20 - Severe sepsis without septic shock Status: Acute (2) Acute kidney injury: Code(s): N17.9 - Acute kidney failure, unspecified Status: Acute Assessment and Plan: -HD catheter placed on 06/03/25 -Acute HD management as per Nephrology service (3) Colitis: Code(s): K52.9 - Noninfective gastroenteritis and colitis, unspecified Status: Acute (4) Leukocytosis: Code(s): D72.829 - Elevated white blood cell count, unspecified Status: Acute Plan Continue cefepime/flagyl . stop fluconazole--abx day about [address] abd has chronic colitis. no diarrhea for C diff.--formed stool today Follow wbc trend. may expect continued static leukocytosis based on trend but monitor for trend up. BCx 06/14 in process Follow for aspiration. d/w pharmacy staff Patient was seen via video telehealth consultation with the assistance of staff. Chart, data, and patient independently reviewed. Patient was located at [facility] while I was located in my [place] office. Received verbal consent from patient. Subjective Date/time seen: 06/15/25 11:50 Interval history: no fevers WBC count down a bit feels better no nausea Exam Narrative: NAD, on room air abd soft ND, mild tenderness Objective Data Vital Signs Vital Signs: Vital Signs - 24 hr 06/14/25 12:00 06/14/25 13:05 06/14/25 16:00 Temperature 97.5 F L Pulse Rate 81 86 89 Respiratory Rate 16 16 Blood Pressure 123/59 L 109/49 L 113/53 L Pulse Oximetry 99 99 Oxygen Delivery 06/14/25 18:38 06/14/25 19:36 06/14/25 20:00 Temperature 97.3 F L Pulse Rate 85 89 Respiratory Rate 18 Blood Pressure 106/51 L 107/53 L Pulse Oximetry 99 98 Oxygen Delivery Room Air 06/14/25 21:39 06/15/25 00:00 06/15/25 03:10 Temperature 97.6 F 98.1 F Pulse Rate 73 76 88 Respiratory Rate 18 18 Blood Pressure 101/57 L 109/53 L Pulse Oximetry 99 91 Oxygen Delivery 06/15/25 08:00 06/15/25 09:17 06/15/25 09:20 Temperature Pulse Rate 98 98 Respiratory Rate Blood Pressure 110/54 L Pulse Oximetry 98 Oxygen Delivery Room Air 06/15/25 11:02 Temperature 97.8 F Pulse Rate 78 Respiratory Rate 18 Blood Pressure 117/59 L Pulse Oximetry 98 Oxygen Delivery Intake/Output Intake/Output: Intake & Output 06/12/25 06/13/25 06/14/25 06/15/25 23:59 23:59 23:59 23:59 Intake Total 1020 1490 1600 650 Output Total 1600 1350 1000 1400 Balance -580 140 600 -750 Meds/Results Medications: Active Medications Generic Name Dose Route Start Last Admin Trade Name Freq PRN Reason Stop Dose Admin Acetaminophen 650 mg 06/03/25 20:21 06/13/25 10:33 Acetaminophen 325 Mg Tablet PO 650 mg Q6H PRN Administration Mild Pain (1-3) or Fever Hydrocodone Bitart/Acetaminophen 1 tab 06/03/25 20:21 06/14/25 21:43 Hydrocodone/Acetaminophen (*Crx) 5-325 Mg Tablet PO 1 tab Q4H PRN Administration Pain Rated 4-6 Apixaban 2.5 mg 06/14/25 21:00 06/15/25 09:17 Apixaban 2.5 Mg Tablet PO 2.5 mg Q12HR USAMA Administration Atorvastatin Calcium 20 mg 06/02/25 09:00 06/02/25 10:07 Atorvastatin 20 Mg Tablet BY MOUTH Not Given On Hold: 06/02/25 14:42 DAILY USAMA Bisacodyl 10 mg 06/02/25 03:32 Bisacodyl 10 Mg Suppository RECTAL DAILY PRN Constipation Buspirone HCl 10 mg 06/13/25 21:00 06/15/25 09:17 Buspirone Hcl 10 Mg Tablet PO 10 mg Q12HR USAMA Administration Clonidine HCl 0.3 mg 06/02/25 09:00 06/02/25 11:58 Clonidine Hcl 0.1 Mg Tablet BY MOUTH Not Given On Hold: 06/02/25 14:42 BID USAMA Dextrose 12.5 gm 06/13/25 10:25 Dextrose 50% 25 Gm/50 Ml Syringe IV PUSH PRN PRN Hypoglycemia Protocol Gabapentin 300 mg 06/02/25 09:00 06/02/25 10:07 Gabapentin 300 Mg Capsule PO Not Given On Hold: 06/02/25 14:42 DAILY USAMA Glucagon 1 mg 06/13/25 10:25 Glucagon For Inj 1 Mg Vial IM PRN PRN Hypoglycemia Protocol Glucose 15 gm 06/13/25 10:25 Glucose Oral Gel 15 Gm Of Glucse In 37.5 Gm Tube PO PRN PRN Hypoglycemia Protocol Heparin Sodium (Porcine) 5,000 units 06/10/25 07:00 06/14/25 05:08 Heparin Sodium 5,000 Units/Ml Vial SUB-Q 5,000 units On Hold: 06/14/25 10:44 Q8HR USAMA Administration Hydralazine HCl 25 mg 06/04/25 09:20 06/15/25 05:36 Hydralazine Hcl 25 Mg Tablet PO 25 mg Q6HR USAMA Administration Sodium Chloride 1,000 mls @ 75 mls/hr 06/02/25 03:30 06/02/25 04:14 Normal Saline Iv IV CONT 75 mls/hr On Hold: 06/02/25 10:04 .[id number] USAMA Administration Albumin Human 50 mls @ 999 mls/hr 06/03/25 08:37 Albutein IVPB 07/03/25 08:36 Q10M PRN HYPOTENSION Metronidazole 500 mg in 100 mls @ 100 mls/hr 06/09/25 14:00 06/15/25 05:35 Flagyl 500 Mg/Iso Soln 100 Ml IVPB 100 mls/hr Q8H USAMA Administration Cefepime HCl 2 gm/ Sodium 50 mls @ 100 mls/hr 06/09/25 18:00 06/15/25 05:35 Chloride IVPB 100 mls/hr Q12H USAMA Administration Dextrose 1,000 mls @ 100 mls/hr 06/13/25 10:25 Dextrose 5% 1,000 Ml IVPB PRN PRN Hypoglycemia Protocol Insulin Aspart 3 - 6 units 06/13/25 12:00 06/15/25 08:19 Insulin Aspart (*Bkc) 100 Units/Ml SUB-Q Not Given TIDWM USAMA Protocol Isosorbide Mononitrate 30 mg 06/04/25 09:20 06/15/25 09:18 Isosorbide Mononitrate 30 Mg Tab.Er.24h PO 30 mg QAM USAMA Administration Metoprolol Tartrate 5 mg 06/02/25 09:43 06/06/25 12:56 Metoprolol Tartrate Inj 5 Mg/5 Ml Vial IV PUSH 5 mg Q6H PRN Administration tachycardia >100 Metoprolol Tartrate 50 mg 06/11/25 09:15 06/15/25 09:17 Metoprolol Tartrate 50 Mg Tab PO 50 mg Q12HR USAMA Administration Miscellaneous Information 1 each 06/13/25 00:01 [place] Needs To Be Renewed Or It Will Automatically Discontinue. XX 07/13/25 00:00 CLARIFY USAMA Nifedipine 30 mg 06/07/25 09:00 06/15/25 09:18 Nifedipine 30 Mg Tab.Er.24 PO 30 mg QAM USAMA Administration Pantoprazole Sodium 40 mg 06/02/25 09:00 06/02/25 10:07 Pantoprazole 40 Mg Tablet PO Not Given On Hold: 06/02/25 14:42 DAILY USAMA Tamsulosin HCl 0.4 mg 06/10/25 21:00 06/14/25 21:39 Tamsulosin Hcl 0.4 Mg Capsule PO 0.4 mg QHS USAMA Administration Radiology Results: ITS Impressions Head CT 06/01/25 19:30 IMPRESSION: 1. No acute intracranial findings or change from prior exam. Chest X-Ray 06/05/25 14:07 Impression: No acute cardiopulmonary abnormality. Chest/Abdomen/Pelvis CT 06/08/25 20:11 IMPRESSION: 1. Stable appearance of mild UIP pattern chronic interstitial lung disease with no acute cardiopulmonary disease. 2. Large ball of stool at rectum suspicious for constipation with fecal impaction. Mild stranding in the perirectal/presacral fat suggesting possible secondary stercoral colitis. 3. Mild haziness to the fat surrounding the decompressed bladder suspicious for cystitis. Correlate with urinalysis. Venous Doppler Study 06/13/25 11:09 IMPRESSION: 1. No DVT either leg. Labs Labs: Laboratory Results - last 24 hr 06/14/25 06/14/25 06/14/25 08:09 08:14 12:03 WBC RBC Hgb Hct MCV MCH MCHC RDW Plt Count MPV Immature Gran % (Auto) Neut % (Auto) Lymph % (Auto) [place] % (Auto) Eos % (Auto) Baso % (Auto) Lymph # (Auto) [place] # (Auto) Eos # (Auto) Baso # (Auto) Abs Immat Gran (auto) Absolute Neuts (auto) Absolute Nucleated RBC Nucleated RBC % % Immature Plt Fraction ESR 5 Sodium 138 Potassium 4.1 Chloride 110 H Carbon Dioxide 18 L Anion Gap 10 BUN 23 H Creatinine 0.77 Estim Creat Clear Calc 51 Estimated GFR > 60 Glucose 171 H POC Capillary Glucose 159 H Calcium 8.6 Iron TIBC % Saturation Ferritin Total Bilirubin 0.4 AST 62 H ALT 43 H Alkaline Phosphatase 99 C-Reactive Protein 1.2 H Total Protein 6.9 Albumin 3.3 L 06/14/25 06/14/25 06/15/25 16:49 19:39 05:16 WBC RBC Hgb Hct MCV MCH MCHC RDW Plt Count MPV Immature Gran % (Auto) Neut % (Auto) Lymph % (Auto) [place] % (Auto) Eos % (Auto) Baso % (Auto) Lymph # (Auto) [place] # (Auto) Eos # (Auto) Baso # (Auto) Abs Immat Gran (auto) Absolute Neuts (auto) Absolute Nucleated RBC Nucleated RBC % % Immature Plt Fraction ESR Sodium Potassium Chloride Carbon Dioxide Anion Gap BUN Creatinine Estim Creat Clear Calc Estimated GFR Glucose POC Capillary Glucose 166 H 254 H Calcium Iron 51 TIBC 243 L % Saturation 21 Ferritin 52.20 Total Bilirubin AST ALT Alkaline Phosphatase C-Reactive Protein Total Protein Albumin 06/15/25 06/15/25 06/15/25 05:18 07:54 11:46 WBC 16.3 H RBC 3.07 L Hgb 8.8 L Hct 27.9 L MCV 90.9 MCH 28.7 MCHC 31.5 L RDW 15.4 H Plt Count 100 L MPV 10.9 H Immature Gran % (Auto) 1.4 H Neut % (Auto) 64.5 Lymph % (Auto) 23.0 [place] % (Auto) 8.8 H Eos % (Auto) 1.8 Baso % (Auto) 0.5 Lymph # (Auto) 3.76 H [place] # (Auto) 1.4 H Eos # (Auto) 0.3 Baso # (Auto) 0.1 Abs Immat Gran (auto) 0.23 H Absolute Neuts (auto) 10.5 H Absolute Nucleated RBC 0.000 Nucleated RBC % 0.0 % Immature Plt Fraction 6.1 ESR Sodium 137 Potassium 4.0 Chloride 110 H Carbon Dioxide 21 L Anion Gap 6 BUN 25 H Creatinine 0.81 Estim Creat Clear Calc 49 Estimated GFR > 60 Glucose 127 H POC Capillary Glucose 138 H 171 H Calcium 8.6 Iron TIBC % Saturation Ferritin Total Bilirubin 0.3 AST 36 ALT 35 Alkaline Phosphatase 75 C-Reactive Protein Total Protein 6.2 L Albumin 3.0 L
[2025-06-15] MEDS: HYDROcodone/acetaminophen (*CRX) 5-325 MG TABLET 1 TAB PO (11:57)
--- NOTE | 2025-06-15 11:58 | P.PNIM_ITS ---
Progress Note: A&P Assessment and Plan (1) RENEA (acute kidney injury): Code(s): N17.9 - Acute kidney failure, unspecified Status: Resolved Assessment and Plan: -the patient has acute on chronic renal failure with uremia -patient had a renal ultrasound on 04/27/2025: Trabeculated bladder appearance with thickening. Focal thickening more prominent superiorly on the right. Cannot exclude transitional cell carcinoma possibly superimposed on cystitis. Recommend urology consultation. -urology saw the patient on 04/27/2025 and noted no acute urological surgical intervention is indicated. It was noted that they will follow her peripherally. -BUN/Cr 39/0.95 > 36/0.92 Dialysis discontinued per Nephrology - Cr improving. Dialysis catheter removed. Associated metabolic acidosis has also resolved. -monitor BMP daily 06/11/2025 Stable, will repeat CMP daily Continue current treatment. (2) DM2 (diabetes mellitus, type 2): Qualifiers: Diabetes mellitus group home insulin use: without group home use Diabetes mellitus complication status: with hyperglycemia Qualified Code(s): E11.65 - Type 2 diabetes mellitus with hyperglycemia Code(s): E11.9 - Type 2 diabetes mellitus without complications Status: Chronic Assessment and Plan: Stable on current medication, will continue current treatment. (3) Essential (primary) hypertension: Code(s): I10 - Essential (primary) hypertension Status: Chronic Assessment and Plan: Stable on current medication, will continue current treatment. (4) Congestive heart failure: Code(s): I50.9 - Heart failure, unspecified Status: Chronic Assessment and Plan: -continue with metoprolol -echo showed left ventricular hypertrophy with hyperdynamic systolic -spironolactoneEllisga on hold at this time. (5) Hyperlipidemia: Code(s): E78.5 - Hyperlipidemia, unspecified Status: Acute Assessment and Plan: -continue with atorvastatin and monitor liver enzymes (6) Generalized anxiety disorder: Code(s): F41.1 - Generalized anxiety disorder Status: Acute Assessment and Plan: Stable on current medication, will continue current treatment. (7) Hyperkalemia: Code(s): E87.5 - Hyperkalemia Status: Acute Assessment and Plan: -most likely secondary to the acute kidney injury -she has also been on spironolactone which is now on hold. -the patient was given Lokelma in the emergency room. resolved (8) Leukocytosis: Code(s): D72.829 - Elevated white blood cell count, unspecified Status: Acute Assessment and Plan: -In setting of severe sepsis w/o septic shock -Seen by ID- WBC starting to improve, on cefepime/metronidazole/fluconazole -CT A/P and chest reviewed- Chronic interstitial lung disease with old granulomatous disease on the chest, cystitis with urothelial enhancement extending proximally up the right ureter, early pyelonephritis, as well as constipation / fecal impaction. -However, patient is producing stools actively though 1 dose of lactulose was given to facilitate bowel movements. -ID has switched patient back to ceftriaxone/metronidazole from meropenem at this time. Urinary catheter also has been removed today, will be trending white blood cell count in the morning and repeating urine culture at their request if still trending up. -Cultures still pending-catheter tip culture from June 09 and urine culture from June 02 -Urine culture ordered given continued increase of white blood cell count-final result no growth -WBC 16 from , inproving ocntinue Cefepime, Fluconazole and Flagyl per ID CT AP adn chest today, cultures still negative (9) Altered mental status: Qualifiers: Altered mental status type: unspecified Qualified Code(s): R41.82 - Altered mental status, unspecified Code(s): R41.82 - Altered mental status, unspecified Status: Acute Assessment and Plan: Suspected to be secondary to sepsis/RENEA-mental status appears to be improving. Memory is still very limited, patient does not recall things that occurred the night before Continuing to monitor in association with improvement of suspected etiologies. (10) Urinary retention: Onset Date: ~03/2025 Code(s): R33.9 - Retention of urine, unspecified Status: Acute Assessment and Plan: Requiring starr catheter due to persistent retention with void trials Void trial-successful, patient is voiding without catheter at this time (11) Leg pain, bilateral: Code(s): M79.604 - Pain in right leg; M79.605 - Pain in left leg Status: Acute Assessment and Plan: Patient reports pain in bilateral legs today, no significant changes from venous insufficiency. No edema, cellulitis, noted on exam. Ultrasound bilateral lower extremities to rule out DVT conducted-negative for DVT Pain control for now (12) Thrombocytopenia: Code(s): D69.6 - Thrombocytopenia, unspecified Status: Acute Assessment and Plan: Patient initially presented during acute disease course with elevated platelet count that normalized on June 06. On June 09 platelet count was 263 with dropped to 180 on the . From there platelet count has been dropping daily basis and is currently 98. She has been on heparin subQ for DVT prophylaxis. Plan: Discontinued heparin this time Ordered heparin induced thrombocytopenia panel Ordered hematology evaluation Apixaban 2.5 mg b.i.d. for DVT prophylaxis until otherwise specified by Hematology Plan AMS from uremia, resolved improving with dialysis Pain medication and muscle relaxers held at this time due to her acute altered mental status. monitor Colitis CT AP reviewed Rocephin and Flagyl restarted 06/09, meropenem stopped 06/09 Leukocytosis 22.6 > 24 500 cc NS to be given at 75cc/hr and monitor WBC monitor Cystitis per CT AP urine culture (06/02) pending Rocephin and Flagyl restarted 06/09, meropenem stopped 06/09 monitor Tachycardia, resovled Resolved with restarting patient's home Metoprolol 100mg bid monitor Kidney failure resolved Failure to thrive/protein energy malnutrition Poor appetite and generalized weakness Started on Dronabinol after discussing with Patient Dietitian consulted DVT prophylaxis on Sq heparin PT/OT eval for discharge planning Subjective Date/time seen: 06/15/25 11:58 Interval history: Comfortable at bedside complained of poro appetite and generalized weakness Patient was okay with Dronabinol trial. Review of Systems Review of Systems: All systems reviewed & are unremarkable except as noted in HPI and below ROS unobtainable: Yes unobtainable due to medical condition and unobtainable due to mental status ENT: Reports Normal hearing present Neurologic: Reports as per HPI and Reports Normal hearing present Exam Narrative: General: awake HEENT: Normocephalic. Atraumatic. Extraocular movement intact. Sclera clear and anicteric. No facial asymmetry. Chest: Lungs are coarse to auscultation bilaterally. CV: Heart was regular rate and rhythm. Abd: Abdomen was soft. Nontender. Nondistended. Positive bowel sounds. Ext: No clubbing, cyanosis, or edema. DP pulses bilaterally. Neuro: Patient is alert to voice and upon return able AOx2, following some commands. Short-term memory is limited though. 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 Skin: Warm and dry. No rashes or ulcers noted. Const: General: cooperative, no acute distress, well developed, awake, Physically active, average body habitus and well nourished Nutritional Appearance: average body habitus and well nourished Orientation/consciousness: oriented to person, oriented to place, oriented to time and patient oriented x3 HENMT: Head: normal to inspection, No palpable skull fracture present, normocephalic and atraumatic Ears: hearing grossly normal bilaterally Eyes: General: appearance normal, both eyes and all related structures Alignment and Position: alignment normal Periorbital: periorbital findings normal Eyelids: eyelids normal Pupils: Equal, round and reactive pupils present Neck: Neck: normal visual inspection and full ROM Chest: Chest palpation & inspection: normal inspection of the chest Resp: Effort & Inspection: normal respiratory effort Auscultation: clear to auscultation bilaterally Cardio: Palpation: normal PMI Rate: regular rate Rhythm: regular rhythm Heart sounds: S1 normal heart sound present and S2 normal heart sound present Peripheral pulses: Peripheral pulses 2+ throughout GI: Inspection: normal to inspection Auscultation: normal bowel sounds Rectal Exam: deferred Skin: General skin exam: normal color Lesions: no lesions Rashes: no rashes Trauma: no lacerations or abrasions Wounds: no wounds Hair: normal Nails: normal Neuro: General: oriented to person, oriented to place, oriented to time and patient oriented x3 Cranial nerves: Yes Equal, round and reactive pupils present and Yes Normal hearing present Cognition (Neuro): normal cognition Speech: normal speech Motor exam (neuro): 5/5 motor strength present throughout Sensory Exam: normal sensation Extrem: General: normal to inspection Right upper extremity: normal to inspection and shoulder/upper arm Left upper extremity: normal to inspection and shoulder/upper arm Right lower extremity: normal to inspection Left lower extremity: normal to inspection Psych: Mental Status: other Affect: normal affect Attitude: cooperative Objective Data Vital Signs Vital Signs: Vital Signs - 24 hr 06/14/25 12:00 06/14/25 13:05 06/14/25 16:00 Temperature 97.5 F L Pulse Rate 81 86 89 Respiratory Rate 16 16 Blood Pressure 123/59 L 109/49 L 113/53 L Pulse Oximetry 99 99 Oxygen Delivery 06/14/25 18:38 06/14/25 19:36 06/14/25 20:00 Temperature 97.3 F L Pulse Rate 85 89 Respiratory Rate 18 Blood Pressure 106/51 L 107/53 L Pulse Oximetry 99 98 Oxygen Delivery Room Air 06/14/25 21:39 06/15/25 00:00 06/15/25 03:10 Temperature 97.6 F 98.1 F Pulse Rate 73 76 88 Respiratory Rate 18 18 Blood Pressure 101/57 L 109/53 L Pulse Oximetry 99 91 Oxygen Delivery 06/15/25 08:00 06/15/25 09:17 06/15/25 09:20 Temperature Pulse Rate 98 98 Respiratory Rate Blood Pressure 110/54 L Pulse Oximetry 98 Oxygen Delivery Room Air 06/15/25 11:02 Temperature 97.8 F Pulse Rate 78 Respiratory Rate 18 Blood Pressure 117/59 L Pulse Oximetry 98 Oxygen Delivery Intake/Output Intake/Output: Intake & Output 06/12/25 06/13/25 06/14/25 06/15/25 23:59 23:59 23:59 23:59 Intake Total 1020 1490 1600 650 Output Total 1600 1350 1000 1400 Balance -580 140 600 -750 Meds/Results Medications: Active Medications Generic Name Dose Route Start Last Admin Trade Name Freq PRN Reason Stop Dose Admin Acetaminophen 650 mg 06/03/25 20:21 06/13/25 10:33 Acetaminophen 325 Mg Tablet PO 650 mg Q6H PRN Administration Mild Pain (1-3) or Fever Hydrocodone Bitart/Acetaminophen 1 tab 06/03/25 20:21 06/15/25 11:57 Hydrocodone/Acetaminophen (*Crx) 5-325 Mg Tablet PO 1 tab Q4H PRN Administration Pain Rated 4-6 Apixaban 2.5 mg 06/14/25 21:00 06/15/25 09:17 Apixaban 2.5 Mg Tablet PO 2.5 mg Q12HR USAMA Administration Atorvastatin Calcium 20 mg 06/02/25 09:00 06/02/25 10:07 Atorvastatin 20 Mg Tablet BY MOUTH Not Given On Hold: 06/02/25 14:42 DAILY USAMA Bisacodyl 10 mg 06/02/25 03:32 Bisacodyl 10 Mg Suppository RECTAL DAILY PRN Constipation Buspirone HCl 10 mg 06/13/25 21:00 06/15/25 09:17 Buspirone Hcl 10 Mg Tablet PO 10 mg Q12HR USAMA Administration Clonidine HCl 0.3 mg 06/02/25 09:00 06/02/25 11:58 Clonidine Hcl 0.1 Mg Tablet BY MOUTH Not Given On Hold: 06/02/25 14:42 BID USAMA Dextrose 12.5 gm 06/13/25 10:25 Dextrose 50% 25 Gm/50 Ml Syringe IV PUSH PRN PRN Hypoglycemia Protocol Gabapentin 300 mg 06/02/25 09:00 06/02/25 10:07 Gabapentin 300 Mg Capsule PO Not Given On Hold: 06/02/25 14:42 DAILY USAMA Glucagon 1 mg 06/13/25 10:25 Glucagon For Inj 1 Mg Vial IM PRN PRN Hypoglycemia Protocol Glucose 15 gm 06/13/25 10:25 Glucose Oral Gel 15 Gm Of Glucse In 37.5 Gm Tube PO PRN PRN Hypoglycemia Protocol Heparin Sodium (Porcine) 5,000 units 06/10/25 07:00 06/14/25 05:08 Heparin Sodium 5,000 Units/Ml Vial SUB-Q 5,000 units On Hold: 06/14/25 10:44 Q8HR USAMA Administration Hydralazine HCl 25 mg 06/04/25 09:20 06/15/25 11:57 Hydralazine Hcl 25 Mg Tablet PO Not Given Q6HR USAMA Sodium Chloride 1,000 mls @ 75 mls/hr 06/02/25 03:30 06/02/25 04:14 Normal Saline Iv IV CONT 75 mls/hr On Hold: 06/02/25 10:04 .[id number] USAMA Administration Albumin Human 50 mls @ 999 mls/hr 06/03/25 08:37 Albutein IVPB 07/03/25 08:36 Q10M PRN HYPOTENSION Metronidazole 500 mg in 100 mls @ 100 mls/hr 06/09/25 14:00 06/15/25 05:35 Flagyl 500 Mg/Iso Soln 100 Ml IVPB 100 mls/hr Q8H USAMA Administration Cefepime HCl 2 gm/ Sodium 50 mls @ 100 mls/hr 06/09/25 18:00 06/15/25 05:35 Chloride IVPB 100 mls/hr Q12H USAMA Administration Dextrose 1,000 mls @ 100 mls/hr 06/13/25 10:25 Dextrose 5% 1,000 Ml IVPB PRN PRN Hypoglycemia Protocol Insulin Aspart 3 - 6 units 06/13/25 12:00 06/15/25 11:53 Insulin Aspart (*Bkc) 100 Units/Ml SUB-Q Not Given TIDWM USAMA Protocol Isosorbide Mononitrate 30 mg 06/04/25 09:20 06/15/25 09:18 Isosorbide Mononitrate 30 Mg Tab.Er.24h PO 30 mg QAM USAMA Administration Metoprolol Tartrate 5 mg 06/02/25 09:43 06/06/25 12:56 Metoprolol Tartrate Inj 5 Mg/5 Ml Vial IV PUSH 5 mg Q6H PRN Administration tachycardia >100 Metoprolol Tartrate 50 mg 06/11/25 09:15 06/15/25 09:17 Metoprolol Tartrate 50 Mg Tab PO 50 mg Q12HR USAMA Administration Miscellaneous Information 1 each 06/13/25 00:01 [place] Needs To Be Renewed Or It Will Automatically Discontinue. XX 07/13/25 00:00 CLARIFY USAMA Nifedipine 30 mg 06/07/25 09:00 06/15/25 09:18 Nifedipine 30 Mg Tab.Er.24 PO 30 mg QAM USAMA Administration Pantoprazole Sodium 40 mg 06/02/25 09:00 06/02/25 10:07 Pantoprazole 40 Mg Tablet PO Not Given On Hold: 06/02/25 14:42 DAILY USAMA Tamsulosin HCl 0.4 mg 06/10/25 21:00 06/14/25 21:39 Tamsulosin Hcl 0.4 Mg Capsule PO 0.4 mg QHS USAMA Administration Radiology Results: ITS Impressions Head CT 06/01/25 19:30 IMPRESSION: 1. No acute intracranial findings or change from prior exam. Chest X-Ray 06/05/25 14:07 Impression: No acute cardiopulmonary abnormality. Chest/Abdomen/Pelvis CT 06/08/25 20:11 IMPRESSION: 1. Stable appearance of mild UIP pattern chronic interstitial lung disease with no acute cardiopulmonary disease. 2. Large ball of stool at rectum suspicious for constipation with fecal impaction. Mild stranding in the perirectal/presacral fat suggesting possible secondary stercoral colitis. 3. Mild haziness to the fat surrounding the decompressed bladder suspicious for cystitis. Correlate with urinalysis. Venous Doppler Study 06/13/25 11:09 IMPRESSION: 1. No DVT either leg. Labs Labs: Laboratory Results - last 24 hr 06/14/25 06/14/25 06/14/25 08:09 08:14 12:03 WBC RBC Hgb Hct MCV MCH MCHC RDW Plt Count MPV Immature Gran % (Auto) Neut % (Auto) Lymph % (Auto) [place] % (Auto) Eos % (Auto) Baso % (Auto) Lymph # (Auto) [place] # (Auto) Eos # (Auto) Baso # (Auto) Abs Immat Gran (auto) Absolute Neuts (auto) Absolute Nucleated RBC Nucleated RBC % % Immature Plt Fraction ESR 5 Sodium 138 Potassium 4.1 Chloride 110 H Carbon Dioxide 18 L Anion Gap 10 BUN 23 H Creatinine 0.77 Estim Creat Clear Calc 51 Estimated GFR > 60 Glucose 171 H POC Capillary Glucose 159 H Calcium 8.6 Iron TIBC % Saturation Ferritin Total Bilirubin 0.4 AST 62 H ALT 43 H Alkaline Phosphatase 99 C-Reactive Protein 1.2 H Total Protein 6.9 Albumin 3.3 L 06/14/25 06/14/25 06/15/25 16:49 19:39 05:16 WBC RBC Hgb Hct MCV MCH MCHC RDW Plt Count MPV Immature Gran % (Auto) Neut % (Auto) Lymph % (Auto) [place] % (Auto) Eos % (Auto) Baso % (Auto) Lymph # (Auto) [place] # (Auto) Eos # (Auto) Baso # (Auto) Abs Immat Gran (auto) Absolute Neuts (auto) Absolute Nucleated RBC Nucleated RBC % % Immature Plt Fraction ESR Sodium Potassium Chloride Carbon Dioxide Anion Gap BUN Creatinine Estim Creat Clear Calc Estimated GFR Glucose POC Capillary Glucose 166 H 254 H Calcium Iron 51 TIBC 243 L % Saturation 21 Ferritin 52.20 Total Bilirubin AST ALT Alkaline Phosphatase C-Reactive Protein Total Protein Albumin 06/15/25 06/15/25 06/15/25 05:18 07:54 11:46 WBC 16.3 H RBC 3.07 L Hgb 8.8 L Hct 27.9 L MCV 90.9 MCH 28.7 MCHC 31.5 L RDW 15.4 H Plt Count 100 L MPV 10.9 H Immature Gran % (Auto) 1.4 H Neut % (Auto) 64.5 Lymph % (Auto) 23.0 [place] % (Auto) 8.8 H Eos % (Auto) 1.8 Baso % (Auto) 0.5 Lymph # (Auto) 3.[address] [place] # (Auto) 1.4 H Eos # (Auto) 0.3 Baso # (Auto) 0.1 Abs Immat Gran (auto) 0.23 H Absolute Neuts (auto) 10.5 H Absolute Nucleated RBC 0.000 Nucleated RBC % 0.0 % Immature Plt Fraction 6.1 ESR Sodium 137 Potassium 4.0 Chloride 110 H Carbon Dioxide 21 L Anion Gap 6 BUN 25 H Creatinine 0.81 Estim Creat Clear Calc 49 Estimated GFR > 60 Glucose 127 H POC Capillary Glucose 138 H 171 H Calcium 8.6 Iron TIBC % Saturation Ferritin Total Bilirubin 0.3 AST 36 ALT 35 Alkaline Phosphatase 75 C-Reactive Protein Total Protein 6.2 L Albumin 3.0 L Quality VTE Prophylaxis VTE prophylaxis: mechanical ordered and pharmacologic ordered
[2025-06-15] MEDS: droNABinol (*CRX) 2.5 MG CAPSULE 5 MG PO ×2 (12:06→17:15)
[2025-06-15] MEDS: INSULIN ASPART (*BKC) 100 UNITS/ML SUB-Q (17:15)
[2025-06-15] MEDS: TAMSULOSIN HCL 0.4 MG CAPSULE PO (21:41)
[2025-06-16] VITALS (8 sets, daily range): BP systolic 111–114; BP diastolic 53–60; PULSE 83–101; RESP 16–18; TEMP 36.1–36.8; O2SAT 93–98
[2025-06-16] MEDS: metroNIDAZOLE 500 MG/ISO 100ML 500 MG/100 ML BAG 100 MG IVPB ×2 (06:06→13:44)
[2025-06-16] MEDS: CEFEPIME 2 GM in SODIUM CHLORIDE 0.9% IV 50 ML 100 ML IVPB (06:07)
[2025-06-16 07:56] LABS: Hematocrit 29.0 % (37.0-47.0); Hemoglobin 9.1 g/dL (12.0-15.0); Immature Granulocyte Percent A 0.8 % (0-0.5); Lymphocytes Absolute Auto 2.79 K/mm3 (0.9-3.2); Mean Corpuscular HGB Conc 31.4 g/dl (32-36); Mean Corpuscular Hemoglobin 28.6 pg (26-34); Mean Corpuscular Volume 91.2 fl (80-100); Nucleated Red Blood Cells Absolute Auto 0.000 K/mm3 (0.0-0.012); Nucleated Red Blood Cells Perc 0.0 % (0.0-0.2); Platelet Count Result 112 k/mm3 (150-375); Red Blood Count 3.18 M/mm3 (4.2-5.4); White Blood Count 20.9 K/mm3 (4.5-10.0)
--- NOTE | 2025-06-16 08:03 | WPDINFPN2 ---
Progress Note: A&P Assessment and Plan (1) Severe sepsis: Code(s): A41.9 - Sepsis, unspecified organism; R65.20 - Severe sepsis without septic shock Status: Acute (2) Acute kidney injury: Code(s): N17.9 - Acute kidney failure, unspecified Status: Acute Assessment and Plan: -HD catheter placed on 06/03/25 -Acute HD management as per Nephrology service (3) Colitis: Code(s): K52.9 - Noninfective gastroenteritis and colitis, unspecified Status: Acute (4) Leukocytosis: Code(s): D72.829 - Elevated white blood cell count, unspecified Status: Acute Plan CT abd report reviewed has chronic colitis. stop abx and monitor Follow wbc trend. may expect continued static leukocytosis based on trend but monitor for trend up. BCx 06/14 in process d/w pharmacy staff Patient was seen via video telehealth consultation with the assistance of staff. Chart, data, and patient independently reviewed. Patient was located at [facility] while I was located in my [place] office. Received verbal consent from patient. Subjective Date/time seen: 06/16/25 08:03 Interval history: no fevers not much abd pain +diarrhea Exam Narrative: NAD, on rooom air, non-toxic abd soft with a little guarding Objective Data Vital Signs Vital Signs: Vital Signs - 24 hr 06/15/25 09:17 06/15/25 09:20 06/15/25 11:02 Temperature 97.8 F Pulse Rate 98 78 Respiratory Rate 18 Blood Pressure 117/59 L Pulse Oximetry 98 Oxygen Delivery Room Air 06/15/25 16:42 06/15/25 18:07 06/15/25 19:48 Temperature 97.5 F L 97.5 F L Pulse Rate 92 101 H 110 H Respiratory Rate 18 17 Blood Pressure 113/55 L 120/60 134/58 L Pulse Oximetry 95 98 Oxygen Delivery 06/15/25 20:00 06/15/25 20:08 06/15/25 21:41 Temperature 97.5 F L Pulse Rate 89 76 Respiratory Rate 17 Blood Pressure 107/77 Pulse Oximetry 99 Oxygen Delivery Room Air 06/16/25 04:00 Temperature 98.1 F Pulse Rate 83 Respiratory Rate 18 Blood Pressure 112/54 L Pulse Oximetry 95 Oxygen Delivery Intake/Output Intake/Output: Intake & Output 06/13/25 06/14/25 06/15/25 06/16/25 23:59 23:59 23:59 23:59 Intake Total 1490 1600 1510 Output Total 1350 1000 1400 900 Balance 140 600 110 -900 Meds/Results Medications: Active Medications Generic Name Dose Route Start Last Admin Trade Name Freq PRN Reason Stop Dose Admin Acetaminophen 650 mg 06/03/25 20:21 06/13/25 10:33 Acetaminophen 325 Mg Tablet PO 650 mg Q6H PRN Administration Mild Pain (1-3) or Fever Hydrocodone Bitart/Acetaminophen 1 tab 06/03/25 20:21 06/15/25 11:57 Hydrocodone/Acetaminophen (*Crx) 5-325 Mg Tablet PO 1 tab Q4H PRN Administration Pain Rated 4-6 Apixaban 2.5 mg 06/14/25 21:00 06/15/25 21:41 Apixaban 2.5 Mg Tablet PO 2.5 mg Q12HR USAMA Administration Atorvastatin Calcium 20 mg 06/02/25 09:00 06/02/25 10:07 Atorvastatin 20 Mg Tablet BY MOUTH Not Given On Hold: 06/02/25 14:42 DAILY USAMA Bisacodyl 10 mg 06/02/25 03:32 Bisacodyl 10 Mg Suppository RECTAL DAILY PRN Constipation Buspirone HCl 10 mg 06/13/25 21:00 06/15/25 21:41 Buspirone Hcl 10 Mg Tablet PO 10 mg Q12HR USAMA Administration Clonidine HCl 0.3 mg 06/02/25 09:00 06/02/25 11:58 Clonidine Hcl 0.1 Mg Tablet BY MOUTH Not Given On Hold: 06/02/25 14:42 BID USAMA Dextrose 12.5 gm 06/13/25 10:25 Dextrose 50% 25 Gm/50 Ml Syringe IV PUSH PRN PRN Hypoglycemia Protocol Dronabinol 5 mg 06/15/25 12:00 06/15/25 17:15 Dronabinol (*Crx) 2.5 Mg Capsule PO 5 mg BID USAMA Administration Gabapentin 300 mg 06/02/25 09:00 06/02/25 10:07 Gabapentin 300 Mg Capsule PO Not Given On Hold: 06/02/25 14:42 DAILY USAMA Glucagon 1 mg 06/13/25 10:25 Glucagon For Inj 1 Mg Vial IM PRN PRN Hypoglycemia Protocol Glucose 15 gm 06/13/25 10:25 Glucose Oral Gel 15 Gm Of Glucse In 37.5 Gm Tube PO PRN PRN Hypoglycemia Protocol Heparin Sodium (Porcine) 5,000 units 06/10/25 07:00 06/14/25 05:08 Heparin Sodium 5,000 Units/Ml Vial SUB-Q 5,000 units On Hold: 06/14/25 10:44 Q8HR USAMA Administration Hydralazine HCl 25 mg 06/04/25 09:20 06/16/25 06:07 Hydralazine Hcl 25 Mg Tablet PO 25 mg Q6HR USAMA Administration Sodium Chloride 1,000 mls @ 75 mls/hr 06/02/25 03:30 06/02/25 04:14 Normal Saline Iv IV CONT 75 mls/hr On Hold: 06/02/25 10:04 .[id number] USAMA Administration Albumin Human 50 mls @ 999 mls/hr 06/03/25 08:37 Albutein IVPB 07/03/25 08:36 Q10M PRN HYPOTENSION Metronidazole 500 mg in 100 mls @ 100 mls/hr 06/09/25 14:00 06/16/25 06:06 Flagyl 500 Mg/Iso Soln 100 Ml IVPB 100 mls/hr Q8H USAMA Administration Cefepime HCl 2 gm/ Sodium 50 mls @ 100 mls/hr 06/09/25 18:00 06/16/25 06:07 Chloride IVPB 100 mls/hr Q12H USAMA Administration Dextrose 1,000 mls @ 100 mls/hr 06/13/25 10:25 Dextrose 5% 1,000 Ml IVPB PRN PRN Hypoglycemia Protocol Insulin Aspart 3 - 6 units 06/13/25 12:00 06/15/25 17:15 Insulin Aspart (*Bkc) 100 Units/Ml SUB-Q 3 units TIDWM USAMA Administration Protocol Isosorbide Mononitrate 30 mg 06/04/25 09:20 06/15/25 09:18 Isosorbide Mononitrate 30 Mg Tab.Er.24h PO 30 mg QAM USAMA Administration Metoprolol Tartrate 5 mg 06/02/25 09:43 06/06/25 12:56 Metoprolol Tartrate Inj 5 Mg/5 Ml Vial IV PUSH 5 mg Q6H PRN Administration tachycardia >100 Metoprolol Tartrate 50 mg 06/11/25 09:15 06/15/25 21:41 Metoprolol Tartrate 50 Mg Tab PO 50 mg Q12HR USAMA Administration Miscellaneous Information 1 each 06/13/25 00:01 [place] Needs To Be Renewed Or It Will Automatically Discontinue. XX 07/13/25 00:00 CLARIFY USAMA Nifedipine 30 mg 06/07/25 09:00 06/15/25 09:18 Nifedipine 30 Mg Tab.Er.24 PO 30 mg QAM USAMA Administration Pantoprazole Sodium 40 mg 06/02/25 09:00 06/02/25 10:07 Pantoprazole 40 Mg Tablet PO Not Given On Hold: 06/02/25 14:42 DAILY USAMA Tamsulosin HCl 0.4 mg 06/10/25 21:00 06/15/25 21:41 Tamsulosin Hcl 0.4 Mg Capsule PO 0.4 mg QHS USAMA Administration Radiology Results: ITS Impressions Head CT 06/01/25 19:30 IMPRESSION: 1. No acute intracranial findings or change from prior exam. Chest X-Ray 06/05/25 14:07 Impression: No acute cardiopulmonary abnormality. Chest/Abdomen/Pelvis CT 06/08/25 20:11 IMPRESSION: 1. Stable appearance of mild UIP pattern chronic interstitial lung disease with no acute cardiopulmonary disease. 2. Large ball of stool at rectum suspicious for constipation with fecal impaction. Mild stranding in the perirectal/presacral fat suggesting possible secondary stercoral colitis. 3. Mild haziness to the fat surrounding the decompressed bladder suspicious for cystitis. Correlate with urinalysis. Venous Doppler Study 06/13/25 11:09 IMPRESSION: 1. No DVT either leg. Abdomen/Pelvis CT 06/15/25 12:32 IMPRESSION: 1. Stercoral colitis. 2. 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 3. Chronic interstitial lung disease. Labs Labs: Laboratory Results - last 24 hr 06/15/25 06/15/25 06/15/25 05:16 11:46 16:39 POC Capillary Glucose 171 H 222 H Iron 51 TIBC 243 L % Saturation 21 Ferritin 52.20 06/15/25 19:47 POC Capillary Glucose 229 H Iron TIBC % Saturation Ferritin
[2025-06-16] MEDS: droNABinol (*CRX) 2.5 MG CAPSULE 5 MG PO (08:48)
[2025-06-16] MEDS: ISOSORBIDE MONONITRATE 30 MG TAB.ER.24H PO (08:49)
[2025-06-16] MEDS: APIXABAN 2.5 MG TABLET PO ×2 (08:49→20:30)
[2025-06-16] MEDS: BISACODYL 5 MG TABLET EC PO (08:49)
[2025-06-16] MEDS: METOPROLOL TARTRATE 50 MG TAB PO ×2 (08:49→20:30)
--- NOTE | 2025-06-16 10:43 | P.PNIM_ITS ---
Progress Note: A&P Assessment and Plan (1) RENEA (acute kidney injury): Code(s): N17.9 - Acute kidney failure, unspecified Status: Resolved Assessment and Plan: -the patient has acute on chronic renal failure with uremia -patient had a renal ultrasound on 04/27/2025: Trabeculated bladder appearance with thickening. Focal thickening more prominent superiorly on the right. Cannot exclude transitional cell carcinoma possibly superimposed on cystitis. Recommend urology consultation. -urology saw the patient on 04/27/2025 and noted no acute urological surgical intervention is indicated. It was noted that they will follow her peripherally. -BUN/Cr 39/0.95 > 36/0.92 Dialysis discontinued per Nephrology - Cr improving. Dialysis catheter removed. Associated metabolic acidosis has also resolved. renal insufficiency resolved, creatinine normal monitor (2) DM2 (diabetes mellitus, type 2): Qualifiers: Diabetes mellitus penitentiary insulin use: without penitentiary use Diabetes mellitus complication status: with hyperglycemia Qualified Code(s): E11.65 - Type 2 diabetes mellitus with hyperglycemia Code(s): E11.9 - Type 2 diabetes mellitus without complications Status: Chronic Assessment and Plan: Stable on current medication, will continue current treatment. (3) Essential (primary) hypertension: Code(s): I10 - Essential (primary) hypertension Status: Chronic Assessment and Plan: Stable on current medication, will continue current treatment. (4) Congestive heart failure: Code(s): I50.9 - Heart failure, unspecified Status: Chronic Assessment and Plan: -continue with metoprolol -echo showed left ventricular hypertrophy with hyperdynamic systolic -spironolactone, Farxiga on hold at this time. (5) Hyperlipidemia: Code(s): E78.5 - Hyperlipidemia, unspecified Status: Acute Assessment and Plan: -continue with atorvastatin and monitor liver enzymes (6) Generalized anxiety disorder: Code(s): F41.1 - Generalized anxiety disorder Status: Acute Assessment and Plan: Stable on current medication, will continue current treatment. (7) Hyperkalemia: Code(s): E87.5 - Hyperkalemia Status: Acute Assessment and Plan: -most likely secondary to the acute kidney injury -she has also been on spironolactone which is now on hold. -the patient was given Lokelma in the emergency room. resolved (8) Leukocytosis: Code(s): D72.829 - Elevated white blood cell count, unspecified Status: Acute Assessment and Plan: -In setting of severe sepsis w/o septic shock -Seen by ID- WBC starting to improve, on cefepime/metronidazole/fluconazole -CT A/P and chest reviewed- Chronic interstitial lung disease with old granulomatous disease on the chest, cystitis with urothelial enhancement extending proximally up the right ureter, early pyelonephritis, as well as constipation / fecal impaction. -However, patient is producing stools actively though 1 dose of lactulose was given to facilitate bowel movements. -ID has switched patient back to ceftriaxone/metronidazole from meropenem at thi s time. Urinary catheter also has been removed today, will be trending white blood cell count in the morning and repeating urine culture at their request if still trending up. -Cultures still pending-catheter tip culture from June 09 and urine culture from June 02 -Urine culture ordered given continued increase of white blood cell count-final result no growth -WBC 20.9 from , inching up CT AP showed stercoral colitis Continue Cefepime, Fluconazole and Flagyl per ID one dose of Dulcolax and PRN miralax (9) Altered mental status: Qualifiers: Altered mental status type: unspecified Qualified Code(s): R41.82 - Altered mental status, unspecified Code(s): R41.82 - Altered mental status, unspecified Status: Acute Assessment and Plan: Suspected to be secondary to sepsis/RENEA-mental status appears to be improving. Memory is still very limited, patient does not recall things that occurred the night before Continuing to monitor in association with improvement of suspected etiologies. (10) Urinary retention: Onset Date: ~03/2025 Code(s): R33.9 - Retention of urine, unspecified Status: Acute Assessment and Plan: Requiring starr catheter due to persistent retention with void trials Void trial-successful, patient is voiding without catheter at this time (11) Leg pain, bilateral: Code(s): M79.604 - Pain in right leg; M79.605 - Pain in left leg Status: Acute Assessment and Plan: Patient reports pain in bilateral legs today, no significant changes from venous insufficiency. No edema, cellulitis, noted on exam. Ultrasound bilateral lower extremities to rule out DVT conducted-negative for DVT Pain control for now (12) Thrombocytopenia: Code(s): D69.6 - Thrombocytopenia, unspecified Status: Acute Assessment and Plan: Patient initially presented during acute disease course with elevated platelet count that normalized on June 06. On June 09 platelet count was 263 with dropped to 180 on the . She has been on heparin subQ for DVT prophylaxis. Platelets 112 today from 98 Plan: Discontinued heparin this time Ordered heparin induced thrombocytopenia panel Ordered hematology evaluation Apixaban 2.5 mg b.i.d. for DVT prophylaxis until otherwise specified by Hematology Plan AMS from uremia, resolved improving with dialysis Pain medication and muscle relaxers held at this time due to her acute altered mental status. monitor Colitis CT AP reviewed Continue Abx per ID Leukocytosis 20.9 up from 16 yesterday 500 cc NS today and monitor Dulcolax and PRN Miralax monitor Cystitis per CT AP urine culture (06/02) pending Patient now on Cefepime and Flagyl managed by ID monitor Tachycardia, resovled Resolved with restarting patient's home Metoprolol 100mg bid monitor Kidney failure resolved Failure to thrive/protein energy malnutrition Poor appetite and generalized weakness Started on Dronabinol after discussing with Patient Mirtazapine added, give 500 cc normal saline today Dietitian consulted DVT prophylaxis on Eliquis PT/OT eval for discharge planning Subjective Date/time seen: 06/16/25 10:43 Interval history: Comfortable at bedside Still having poor oral intake and masked facie Review of Systems Review of Systems: All systems reviewed & are unremarkable except as noted in HPI and below ROS unobtainable: Yes unobtainable due to medical condition and unobtainable due to mental status ENT: Reports Normal hearing present Neurologic: Reports as per HPI and Reports Normal hearing present Exam Narrative: General: awake HEENT: Normocephalic. Atraumatic. Extraocular movement intact. Sclera clear and anicteric. No facial asymmetry. Chest: Lungs are coarse to auscultation bilaterally. CV: Heart was regular rate and rhythm. Abd: Abdomen was soft. Nontender. Nondistended. Positive bowel sounds. Ext: No clubbing, cyanosis, or edema. DP pulses bilaterally. Neuro: Patient is alert to voice and upon return able AOx2, following some commands. Short-term memory is limited though. 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 Skin: Warm and dry. No rashes or ulcers noted. Const: General: cooperative, no acute distress, well developed, awake, Physically active, average body habitus and well nourished Nutritional Appearance: average body habitus and well nourished Orientation/consciousness: oriented to person, oriented to place, oriented to time and patient oriented x3 HENMT: Head: normal to inspection, No palpable skull fracture present, normocephalic and atraumatic Ears: hearing grossly normal bilaterally Eyes: General: appearance normal, both eyes and all related structures Alignment and Position: alignment normal Periorbital: periorbital findings normal Eyelids: eyelids normal Pupils: Equal, round and reactive pupils present Neck: Neck: normal visual inspection and full ROM Chest: Chest palpation & inspection: normal inspection of the chest Resp: Effort & Inspection: normal respiratory effort Auscultation: clear to auscultation bilaterally Cardio: Palpation: normal PMI Rate: regular rate Rhythm: regular rhythm Heart sounds: S1 normal heart sound present and S2 normal heart sound present Peripheral pulses: Peripheral pulses 2+ throughout GI: Inspection: normal to inspection Auscultation: normal bowel sounds Rectal Exam: deferred Skin: General skin exam: normal color Lesions: no lesions Rashes: no rashes Trauma: no lacerations or abrasions Wounds: no wounds Hair: normal Nails: normal Neuro: General: oriented to person, oriented to place, oriented to time and patient oriented x3 Cranial nerves: Yes Equal, round and reactive pupils present and Yes Normal hearing present Cognition (Neuro): normal cognition Speech: normal speech Motor exam (neuro): 5/5 motor strength present througho ut Sensory Exam: normal sensation Extrem: General: normal to inspection Right upper extremity: normal to inspection and shoulder/upper arm Left upper extremity: normal to inspection and shoulder/upper arm Right lower extremity: normal to inspection Left lower extremity: normal to inspection Psych: Mental Status: other Affect: normal affect Attitude: cooperative Objective Data Vital Signs Vital Signs: Vital Signs - 24 hr 06/15/25 11:02 06/15/25 16:42 06/15/25 18:07 Temperature 97.8 F 97.5 F L Pulse Rate 78 92 101 H Respiratory Rate 18 18 Blood Pressure 117/59 L 113/55 L 120/60 Pulse Oximetry 98 95 Oxygen Delivery 06/15/25 19:48 06/15/25 20:00 06/15/25 20:08 Temperature 97.5 F L 97.5 F L Pulse Rate 110 H 89 Respiratory Rate 17 17 Blood Pressure 134/58 L 107/77 Pulse Oximetry 98 99 Oxygen Delivery Room Air 06/15/25 21:41 06/16/25 04:00 06/16/25 08:00 Temperature 98.1 F 97.0 F L Pulse Rate 76 83 85 Respiratory Rate 18 18 Blood Pressure 112/54 L 112/60 Pulse Oximetry 95 93 Oxygen Delivery 06/16/25 08:49 Temperature Pulse Rate 85 Respiratory Rate Blood Pressure Pulse Oximetry Oxygen Delivery Intake/Output Intake/Output: Intake & Output 06/13/25 06/14/25 06/15/25 06/16/25 23:59 23:59 23:59 23:59 Intake Total 1490 1600 1510 120 Output Total 1350 1000 1400 900 Balance 140 600 110 -780 Meds/Results Medications: Active Medications Generic Name Dose Route Start Last Admin Trade Name Freq PRN Reason Stop Dose Admin Acetaminophen 650 mg 06/03/25 20:21 06/13/25 10:33 Acetaminophen 325 Mg Tablet PO 650 mg Q6H PRN Administration Mild Pain (1-3) or Fever Hydrocodone Bitart/Acetaminophen 1 tab 06/03/25 20:21 06/15/25 11:57 Hydrocodone/Acetaminophen (*Crx) 5-325 Mg Tablet PO 1 tab Q4H PRN Administration Pain Rated 4-6 Apixaban 2.5 mg 06/14/25 21:00 06/16/25 08:49 Apixaban 2.5 Mg Tablet PO 2.5 mg Q12HR USAMA Administration Atorvastatin Calcium 20 mg 06/02/25 09:00 06/02/25 10:07 Atorvastatin 20 Mg Tablet BY MOUTH Not Given On Hold: 06/02/25 14:42 DAILY USAMA Bisacodyl 10 mg 06/02/25 03:32 Bisacodyl 10 Mg Suppository RECTAL DAILY PRN Constipation Buspirone HCl 10 mg 06/13/25 21:00 06/16/25 08:49 Buspirone Hcl 10 Mg Tablet PO 10 mg Q12HR USAMA Administration Clonidine HCl 0.3 mg 06/02/25 09:00 06/02/25 11:58 Clonidine Hcl 0.1 Mg Tablet BY MOUTH Not Given On Hold: 06/02/25 14:42 BID USAMA Dextrose 12.5 gm 06/13/25 10:25 Dextrose 50% 25 Gm/50 Ml Syringe IV PUSH PRN PRN Hypoglycemia Protocol Dronabinol 5 mg 06/15/25 12:00 06/16/25 08:48 Dronabinol (*Crx) 2.5 Mg Capsule PO 5 mg BID USAMA Administration Gabapentin 300 mg 06/02/25 09:00 06/02/25 10:07 Gabapentin 300 Mg Capsule PO Not Given On Hold: 06/02/25 14:42 DAILY USAMA Glucagon 1 mg 06/13/25 10:25 Glucagon For Inj 1 Mg Vial IM PRN PRN Hypoglycemia Protocol Glucose 15 gm 06/13/25 10:25 Glucose Oral Gel 15 Gm Of Glucse In 37.5 Gm Tube PO PRN PRN Hypoglycemia Protocol Heparin Sodium (Porcine) 5,000 units 06/10/25 07:00 06/14/25 05:08 Heparin Sodium 5,000 Units/Ml Vial SUB-Q 5,000 units On Hold: 06/14/25 10:44 Q8HR USAMA Administration Hydralazine HCl 25 mg 06/04/25 09:20 06/16/25 06:07 Hydralazine Hcl 25 Mg Tablet PO 25 mg Q6HR USAMA Administration Sodium Chloride 1,000 mls @ 75 mls/hr 06/02/25 03:30 06/02/25 04:14 Normal Saline Iv IV CONT 75 mls/hr On Hold: 06/02/25 10:04 .[id number] USAMA Administration Albumin Human 50 mls @ 999 mls/hr 06/03/25 08:37 Albutein IVPB 07/03/25 08:36 Q10M PRN HYPOTENSION Metronidazole 500 mg in 100 mls @ 100 mls/hr 06/09/25 14:00 06/16/25 06:06 Flagyl 500 Mg/Iso Soln 100 Ml IVPB 100 mls/hr Q8H USAMA Administration Cefepime HCl 2 gm/ Sodium 50 mls @ 100 mls/hr 06/09/25 18:00 06/16/25 06:07 Chloride IVPB 100 mls/hr Q12H USAMA Administration Dextrose 1,000 mls @ 100 mls/hr 06/13/25 10:25 Dextrose 5% 1,000 Ml IVPB PRN PRN Hypoglycemia Protocol Insulin Aspart 3 - 6 units 06/13/25 12:00 06/16/25 08:44 Insulin Aspart (*Bkc) 100 Units/Ml SUB-Q Not Given TIDWM USAMA Protocol Isosorbide Mononitrate 30 mg 06/04/25 09:20 06/16/25 08:49 Isosorbide Mononitrate 30 Mg Tab.Er.24h PO 30 mg QAM USAMA Administration Metoprolol Tartrate 5 mg 06/02/25 09:43 06/06/25 12:56 Metoprolol Tartrate Inj 5 Mg/5 Ml Vial IV PUSH 5 mg Q6H PRN Administration tachycardia >100 Metoprolol Tartrate 50 mg 06/11/25 09:15 06/16/25 08:49 Metoprolol Tartrate 50 Mg Tab PO 50 mg Q12HR USAMA Administration Miscellaneous Information 1 each 06/13/25 00:01 [place] Needs To Be Renewed Or It Will Automatically Discontinue. XX 07/13/25 00:00 CLARIFY USAMA Nifedipine 30 mg 06/07/25 09:00 06/16/25 08:49 Nifedipine 30 Mg Tab.Er.24 PO 30 mg QAM USAMA Administration Pantoprazole Sodium 40 mg 06/02/25 09:00 06/02/25 10:07 Pantoprazole 40 Mg Tablet PO Not Given On Hold: 06/02/25 14:42 DAILY USAMA Tamsulosin HCl 0.4 mg 06/10/25 21:00 06/15/25 21:41 Tamsulosin Hcl 0.4 Mg Capsule PO 0.4 mg QHS USAMA Administration Radiology Results: ITS Impressions Head CT 06/01/25 19:30 IMPRESSION: 1. No acute intracranial findings or change from prior exam. Chest X-Ray 06/05/25 14:07 Impression: No acute cardiopulmonary abnormality. Chest/Abdomen/Pelvis CT 06/08/25 20:11 IMPRESSION: 1. Stable appearance of mild UIP pattern chronic interstitial lung disease with no acute cardiopulmonary disease. 2. Large ball of stool at rectum suspicious for constipation with fecal impaction. Mild stranding in the perirectal/presacral fat suggesting possible secondary stercoral colitis. 3. Mild haziness to the fat surrounding the decompressed bladder suspicious for cystitis. Correlate with urinalysis. Venous Doppler Study 06/13/25 11:09 IMPRESSION: 1. No DVT either leg. Abdomen/Pelvis CT 06/15/25 12:32 IMPRESSION: 1. Stercoral colitis. 2. 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 3. Chronic interstitial lung disease. Labs Labs: Laboratory Results - last 24 hr 06/15/25 06/15/25 06/15/25 11:46 16:39 19:47 WBC RBC Hgb Hct MCV MCH MCHC RDW Plt Count MPV Immature Gran % (Auto) Neut % (Auto) Lymph % (Auto) [place] % (Auto) Eos % (Auto) Baso % (Auto) Lymph # (Auto) [place] # (Auto) Eos # (Auto) Baso # (Auto) Abs Immat Gran (auto) Absolute Neuts (auto) Absolute Nucleated RBC Nucleated RBC % POC Capillary Glucose 171 H 222 H 229 H 06/16/25 06/16/25 07:51 07:56 WBC 20.9 H RBC 3.18 L Hgb 9.1 L Hct 29.0 L MCV 91.2 MCH 28.6 MCHC 31.4 L RDW 15.9 H Plt Count 112 L MPV 11.0 H Immature Gran % (Auto) 0.8 H Neut % (Auto) 77.2 H Lymph % (Auto) 13.4 L [place] % (Auto) 7.1 Eos % (Auto) 1.1 Baso % (Auto) 0.4 Lymph # (Auto) 2.79 [place] # (Auto) 1.5 H Eos # (Auto) 0.2 Baso # (Auto) 0.1 Abs Immat Gran (auto) 0.16 H Absolute Neuts (auto) 16.1 H Absolute Nucleated RBC 0.000 Nucleated RBC % 0.0 POC Capillary Glucose 153 H Quality VTE Prophylaxis VTE prophylaxis: mechanical ordered and pharmacologic ordered
[2025-06-16] MEDS: INSULIN ASPART (*BKC) 100 UNITS/ML SUB-Q ×2 (12:38→20:25)
[2025-06-16] MEDS: SODIUM CHLORIDE 0.9% IV 500 ML IV CONT (12:38)
[2025-06-16] MEDS: HYDROcodone/acetaminophen (*CRX) 5-325 MG TABLET 1 TAB PO ×2 (13:44→20:29)
--- NOTE | 2025-06-16 13:55 | PCNFU ---
Nutrition Follow-Up Complete: Severe protein calorie malnutrition related to chronic loss of appetite as evidenced by weight loss 13%/7 months, 7%/1 month; intakes <75% needs >1 month; moderate fat loss; severe muscle wasting Goal:Intakes >50% Pt progressing towards goal, continue with same goal Pt current nutrition is Diabetic, Nepro shakes BID. Nutrition recommendation: change supplement to Glucerna, increase to TID Last recorded weight is 66.2 kg. Bowel Motility: +BM 06/15 Labs Reviewed: BUN:25, Glu:269 Meds Noted: protonix, novolog, eliquis, remeron, marinol Skin: WNL Additional Notes: Pt continues on a diabetic diet, pt started on marinol and appetite has picked up, pt stating she is hungry between meals. Recommend to change supplement to Glucerna shakes and increased to TID for an additional 220kcals, 10g protein per shake Monitoring intakes, weights, labs, supplement intake, output, plan of care Follow up in 5 days
[2025-06-16] MEDS: droNABinol (*CRX) 2.5 MG CAPSULE 10 MG PO (17:43)
[2025-06-16] MEDS: TAMSULOSIN HCL 0.4 MG CAPSULE PO (20:30)
[2025-06-16] MEDS: MIRTAZAPINE 15 MG TABLET PO (20:30)
[2025-06-17] VITALS (7 sets, daily range): BP systolic 119–139; BP diastolic 55–66; PULSE 94–106; RESP 16–20; TEMP 36.6–37.1; O2SAT 90–93
[2025-06-17 04:17] LABS: Hematocrit 30.9 % (37.0-47.0); Hemoglobin 9.7 g/dL (12.0-15.0); Immature Granulocyte Percent A 0.9 % (0-0.5); Lymphocytes Absolute Auto 2.79 K/mm3 (0.9-3.2); Mean Corpuscular HGB Conc 31.4 g/dl (32-36); Mean Corpuscular Hemoglobin 28.8 pg (26-34); Mean Corpuscular Volume 91.7 fl (80-100); Nucleated Red Blood Cells Absolute Auto 0.000 K/mm3 (0.0-0.012); Nucleated Red Blood Cells Perc 0.0 % (0.0-0.2); Platelet Count Result 156 k/mm3 (150-375); Red Blood Count 3.37 M/mm3 (4.2-5.4); White Blood Count 22.8 K/mm3 (4.5-10.0)
[2025-06-17 04:41] LABS: Alanine Aminotransferase 26 U/L (6-35); Albumin Level 3.2 g/dL (3.5-5.1); Alkaline Phosphatase 82 U/L (38-126); Anion Gap 7 mmol/L (4-12); Aspartate Amino Transferase 22 U/L (14-36); Bilirubin,Total 0.3 mg/dL (0.2-1.3); Blood Urea Nitrogen 30 mg/dL (7-17); Calcium 8.9 mg/dL (8.4-10.2); Carbon Dioxide 19 mmol/L (22-30); Chloride 110 mmol/L (98-107); Estimated CRCL calculation 42 ml/min; Estimated Glomerular Filt Rate 58; Glucose 153 mg/dL (65-110); Magnesium 1.8 mg/dL (1.6-2.3); Potassium 4.5 mmol/L (3.4-5.0); Sodium 136 mmol/L (137-145); Total Protein 6.6 g/dL (6.3-8.2)
[2025-06-17] MEDS: HYDROcodone/acetaminophen (*CRX) 5-325 MG TABLET 1 TAB PO ×2 (05:40→20:43)
[2025-06-17] MEDS: droNABinol (*CRX) 2.5 MG CAPSULE 10 MG PO ×2 (08:54→17:11)
[2025-06-17] MEDS: APIXABAN 2.5 MG TABLET PO ×2 (08:55→20:43)
[2025-06-17] MEDS: ISOSORBIDE MONONITRATE 30 MG TAB.ER.24H PO (08:55)
[2025-06-17] MEDS: METOPROLOL TARTRATE 50 MG TAB PO ×2 (08:55→20:43)
[2025-06-17] MEDS: INSULIN ASPART (*BKC) 100 UNITS/ML SUB-Q ×3 (12:13→20:50)
[2025-06-17] MEDS: MIRTAZAPINE 15 MG TABLET PO (20:43)
[2025-06-17] MEDS: TAMSULOSIN HCL 0.4 MG CAPSULE PO (20:43)
[2025-06-18] VITALS: BP 144/74; PULSE 98; RESP 18; TEMP 37.3; O2SAT 91
[2025-06-18 04:00] VITALS: BP 143/67; PULSE 99; RESP 18; TEMP 37.3; O2SAT 90
[2025-06-18] MEDS: HYDROcodone/acetaminophen (*CRX) 5-325 MG TABLET 1 TAB PO ×3 (05:48→12:54)
[2025-06-18 06:33] VITALS: BP 137/67; PULSE 88; RESP 18; TEMP 36.8; O2SAT 90
[2025-06-18 08:00] VITALS: BP 141/69; PULSE 101; RESP 14; O2SAT 92
--- NOTE | 2025-06-18 08:09 | P.PNIM_ITS ---
Progress Note: A&P Assessment and Plan (1) RENEA (acute kidney injury): Code(s): N17.9 - Acute kidney failure, unspecified Status: Resolved Assessment and Plan: -the patient has acute on chronic renal failure with uremia -patient had a renal ultrasound on 04/27/2025: Trabeculated bladder appearance with thickening. Focal thickening more prominent superiorly on the right. Cannot exclude transitional cell carcinoma possibly superimposed on cystitis. Recommend urology consultation. -urology saw the patient on 04/27/2025 and noted no acute urological surgical intervention is indicated. It was noted that they will follow her peripherally. -BUN/Cr 39/0.95 > 36/0.92 Dialysis discontinued per Nephrology - Cr improving. Dialysis catheter removed. Associated metabolic acidosis has also resolved. renal insufficiency resolved, creatinine normal monitor (2) DM2 (diabetes mellitus, type 2): Qualifiers: Diabetes mellitus usp insulin use: without usp use Diabetes mellitus complication status: with hyperglycemia Qualified Code(s): E11.65 - Type 2 diabetes mellitus with hyperglycemia Code(s): E11.9 - Type 2 diabetes mellitus without complications Status: Chronic Assessment and Plan: Stable on current medication, will continue current treatment. (3) Essential (primary) hypertension: Code(s): I10 - Essential (primary) hypertension Status: Chronic Assessment and Plan: Stable on current medication, will continue current treatment. (4) Congestive heart failure: Code(s): I50.9 - Heart failure, unspecified Status: Chronic Assessment and Plan: -continue with metoprolol -echo showed left ventricular hypertrophy with hyperdynamic systolic -spironolactone, Farxiga on hold at this time. (5) Hyperlipidemia: Code(s): E78.5 - Hyperlipidemia, unspecified Status: Acute Assessment and Plan: -continue with atorvastatin and monitor liver enzymes (6) Generalized anxiety disorder: Code(s): F41.1 - Generalized anxiety disorder Status: Acute Assessment and Plan: Stable on current medication, will continue current treatment. (7) Hyperkalemia: Code(s): E87.5 - Hyperkalemia Status: Acute Assessment and Plan: -most likely secondary to the acute kidney injury -she has also been on spironolactone which is now on hold. -the patient was given Lokelma in the emergency room. resolved (8) Leukocytosis: Code(s): D72.829 - Elevated white blood cell count, unspecified Status: Acute Assessment and Plan: -In setting of severe sepsis w/o septic shock -Seen by ID- WBC starting to improve, on cefepime/metronidazole/fluconazole -CT A/P and chest reviewed- Chronic interstitial lung disease with old granulomatous disease on the chest, cystitis with urothelial enhancement extending proximally up the right ureter, early pyelonephritis, as well as constipation / fecal impaction. -However, patient is producing stools actively though 1 dose of lactulose was given to facilitate bowel movements. -ID has switched patient back to ceftriaxone/metronidazole from meropenem at thi s time. Urinary catheter also has been removed today, will be trending white blood cell count in the morning and repeating urine culture at their request if still trending up. -Cultures still pending-catheter tip culture from June 09 and urine culture from June 02 -Urine culture ordered given continued increase of white blood cell count-final result no growth -WBC 20.9 from , inching up CT AP showed stercoral colitis Continue Cefepime, Fluconazole and Flagyl per ID one dose of Dulcolax and PRN miralax (9) Altered mental status: Qualifiers: Altered mental status type: unspecified Qualified Code(s): R41.82 - Altered mental status, unspecified Code(s): R41.82 - Altered mental status, unspecified Status: Acute Assessment and Plan: Suspected to be secondary to sepsis/RENEA-mental status appears to be improving. Memory is still very limited, patient does not recall things that occurred the night before Continuing to monitor in association with improvement of suspected etiologies. (10) Urinary retention: Onset Date: ~03/2025 Code(s): R33.9 - Retention of urine, unspecified Status: Acute Assessment and Plan: Requiring starr catheter due to persistent retention with void trials Void trial-successful, patient is voiding without catheter at this time (11) Leg pain, bilateral: Code(s): M79.604 - Pain in right leg; M79.605 - Pain in left leg Status: Acute Assessment and Plan: Patient reports pain in bilateral legs today, no significant changes from venous insufficiency. No edema, cellulitis, noted on exam. Ultrasound bilateral lower extremities to rule out DVT conducted-negative for DVT Pain control for now (12) Thrombocytopenia: Code(s): D69.6 - Thrombocytopenia, unspecified Status: Acute Assessment and Plan: Patient initially presented during acute disease course with elevated platelet count that normalized on June 06. On June 09 platelet count was 263 with dropped to 180 on the . She has been on heparin subQ for DVT prophylaxis. Platelets 112 today from 98 Plan: Discontinued heparin this time Ordered heparin induced thrombocytopenia panel Ordered hematology evaluation Apixaban 2.5 mg b.i.d. for DVT prophylaxis until otherwise specified by Hematology Plan AMS from uremia, resolved improving with dialysis Pain medication and muscle relaxers held at this time due to her acute altered mental status. monitor Colitis CT AP reviewed Continue Abx per ID Leukocytosis 20.9 up from 16 yesterday 500 cc NS today and monitor Dulcolax and PRN Miralax monitor Cystitis per CT AP urine culture (06/02) pending Patient now on Cefepime and Flagyl managed by ID monitor Tachycardia, resovled Resolved with restarting patient's home Metoprolol 100mg bid monitor Kidney failure resolved Failure to thrive/protein energy malnutrition Poor appetite and generalized weakness Started on Dronabinol after discussing with Patient Mirtazapine added, give 500 cc normal saline today Dietitian consulted DVT prophylaxis on Eliquis PT/OT eval for discharge planning Subjective Date/time seen: 06/17/25 08:09 Interval history: Comfortable at bedside Review of Systems Review of Systems: All systems reviewed & are unremarkable except as noted in HPI and below ROS unobtainable: Yes unobtainable due to medical condition and unobtainable due to mental status ENT: Reports Normal hearing present Neurologic: Reports as per HPI and Reports Normal hearing present Exam Narrative: General: awake HEENT: Normocephalic. Atraumatic. Extraocular movement intact. Sclera clear and anicteric. No facial asymmetry. Chest: Lungs are coarse to auscultation bilaterally. CV: Heart was regular rate and rhythm. Abd: Abdomen was soft. Nontender. Nondistended. Positive bowel sounds. Ext: No clubbing, cyanosis, or edema. DP pulses bilaterally. Neuro: Patient is alert to voice and upon return able AOx2, following some commands. Short-term memory is limited though. Symmetrical burlapper strength and wiggles toes. Skin: Warm and dry. No rashes or ulcers noted. Const: General: cooperative, no acute distress, well developed, awake, Physically active, average body habitus and well nourished Nutritional Appearance: average body habitus and well nourished Orientation/consciousness: oriented to person, oriented to place, oriented to time and patient oriented x3 HENMT: Head: normal to inspection, No palpable skull fracture present, normocephalic and atraumatic Ears: hearing grossly normal bilaterally Eyes: General: appearance normal, both eyes and all related structures Alignment and Position: alignment normal Periorbital: periorbital findings normal Eyelids: eyelids normal Pupils: Equal, round and reactive pupils present Neck: Neck: normal visual inspection and full ROM Chest: Chest palpation & inspection: normal inspection of the chest Resp: Effort & Inspection: normal respiratory effort Auscultation: clear to auscultation bilaterally Cardio: Palpation: normal PMI Rate: regular rate Rhythm: regular rhythm Heart sounds: S1 normal heart sound present and S2 normal heart sound present Peripheral pulses: Peripheral pulses 2+ throughout GI: Inspection: normal to inspection Auscultation: normal bowel sounds Rectal Exam: deferred Skin: General skin exam: normal color Lesions: no lesions Rashes: no rashes Trauma: no lacerations or abrasions Wounds: no wounds Hair: normal Nails: normal Neuro: General: oriented to person, oriented to place, oriented to time and patient oriented x3 Cranial nerves: Yes Equal, round and reactive pupils present and Yes Normal hearing present Cognition (Neuro): normal cognition Speech: normal speech Motor exam (neuro): 5/5 motor strength present throughout Sensory Exam: normal sensation Extrem: General: normal to inspection Right upper extremity: normal to inspection and shoulder/upper arm Left upper extremity: normal to inspection and shoulder/upper arm Right lower extremity: normal to inspection Left lower extremity: normal to inspection Psych: Mental Status: other Affect: normal affect Attitude: cooperative Objective Data Vital Signs Vital Signs: Vital Signs - 24 hr 06/17/25 08:55 06/17/25 08:55 06/17/25 12:00 Temperature 98.7 F Pulse Rate 94 100 Respiratory Rate 20 18 Blood Pressure 119/55 L Pulse Oximetry 93 92 Oxygen Delivery Room Air Fraction of Inspired Oxygen 21 06/17/25 16:00 06/17/25 20:00 06/17/25 20:00 Temperature 97.9 F 97.9 F Pulse Rate 106 H 106 H Respiratory Rate 18 18 Blood Pressure 137/65 132/60 Pulse Oximetry 93 91 Oxygen Delivery Room Air Fraction of Inspired Oxygen 06/17/25 20:43 06/18/25 00:00 06/18/25 04:00 Temperature 99.2 F 99.2 F Pulse Rate 106 H 98 99 Respiratory Rate 18 18 Blood Pressure 144/74 H 143/67 H Pulse Oximetry 91 90 Oxygen Delivery Fraction of Inspired Oxygen 06/18/25 06:33 Temperature 98.2 F Pulse Rate 88 Respiratory Rate 18 Blood Pressure 137/67 Pulse Oximetry 90 Oxygen Delivery Fraction of Inspired Oxygen Intake/Output Intake/Output: Intake & Output 06/15/25 06/16/25 06/17/25 06/18/25 23:59 23:59 23:59 23:59 Intake Total 8238 299 5286 Output Total 1400 1500 1750 2400 Balance 110 -1040 -4 -2400 Meds/Results Medications: Active Medications Generic Name Dose Route Start Last Admin Trade Name Freq PRN Reason Stop Dose Admin Acetaminophen 650 mg 06/03/25 20:21 06/13/25 10:33 Acetaminophen 325 Mg Tablet PO 650 mg Q6H PRN Administration Mild Pain (1-3) or Fever Hydrocodone Bitart/Acetaminophen 1 tab 06/03/25 20:21 06/18/25 05:48 Hydrocodone/Acetaminophen (*Crx) 5-325 Mg Tablet PO 1 tab Q4H PRN Administration Pain Rated 4-6 Apixaban 2.5 mg 06/14/25 21:00 06/17/25 20:43 Apixaban 2.5 Mg Tablet PO 2.5 mg Q12HR USAMA Administration Atorvastatin Calcium 20 mg 06/02/25 09:00 06/02/25 10:07 Atorvastatin 20 Mg Tablet BY MOUTH Not Given On Hold: 06/02/25 14:42 DAILY USAMA Bisacodyl 10 mg 06/02/25 03:32 Bisacodyl 10 Mg Suppository RECTAL DAILY PRN Constipation Buspirone HCl 10 mg 06/13/25 21:00 06/17/25 20:43 Buspirone Hcl 10 Mg Tablet PO 10 mg Q12HR USAMA Administration Clonidine HCl 0.3 mg 06/02/25 09:00 06/02/25 11:58 Clonidine Hcl 0.1 Mg Tablet BY MOUTH Not Given On Hold: 06/02/25 14:42 BID USAMA Dextrose 12.5 gm 06/13/25 10:25 Dextrose 50% 25 Gm/50 Ml Syringe IV PUSH PRN PRN Hypoglycemia Protocol Dronabinol 10 mg 06/16/25 17:00 06/17/25 17:11 Dronabinol (*Crx) 2.5 Mg Capsule PO 10 mg BID USAMA Administration Gabapentin 300 mg 06/02/25 09:00 06/02/25 10:07 Gabapentin 300 Mg Capsule PO Not Given On Hold: 06/02/25 14:42 DAILY USAMA Glucagon 1 mg 06/13/25 10: Glucagon For Inj 1 Mg Vial IM PRN PRN Hypoglycemia Protocol Glucose 15 gm 06/13/25 10:25 Glucose Oral Gel 15 Gm Of Glucse In 37.5 Gm Tube PO PRN PRN Hypoglycemia Protocol Heparin Sodium (Porcine) 5,000 units 06/10/25 07:00 06/14/25 05:08 Heparin Sodium 5,000 Units/Ml Vial SUB-Q 5,000 units On Hold: 06/14/25 10:44 Q8HR USAMA Administration Hydralazine HCl 25 mg 06/04/25 09:20 06/18/25 05:48 Hydralazine Hcl 25 Mg Tablet PO 25 mg Q6HR USAMA Administration Sodium Chloride 1,000 mls @ 75 mls/hr 06/02/25 03:30 06/02/25 04:14 Normal Saline Iv IV CONT 75 mls/hr On Hold: 06/02/25 10:04 .[id number] USAMA Administration Albumin Human 50 mls @ 999 mls/hr 06/03/25 08:37 Albutein IVPB 07/03/25 08:36 Q10M PRN HYPOTENSION Dextrose 1,000 mls @ 100 mls/hr 06/13/25 10:25 Dextrose 5% 1,000 Ml IVPB PRN PRN Hypoglycemia Protocol Insulin Aspart 3 - 6 units 06/13/25 12:00 06/17/25 17:09 Insulin Aspart (*Bkc) 100 Units/Ml SUB-Q 3 units TIDWM USAMA Administration Protocol Isosorbide Mononitrate 30 mg 06/04/25 09:20 06/17/25 08:55 Isosorbide Mononitrate 30 Mg Tab.Er.24h PO 30 mg QAM USAMA Administration Metoprolol Tartrate 5 mg 06/02/25 09:43 06/06/25 12:56 Metoprolol Tartrate Inj 5 Mg/5 Ml Vial IV PUSH 5 mg Q6H PRN Administration tachycardia >100 Metoprolol Tartrate 50 mg 06/11/25 09:15 06/17/25 20:43 Metoprolol Tartrate 50 Mg Tab PO 50 mg Q12HR USAMA Administration Mirtazapine 15 mg 06/16/25 21:00 06/17/25 20:43 Mirtazapine 15 Mg Tablet PO 15 mg HS USAMA Administration Nifedipine 30 mg 06/07/25 09:00 06/17/25 08:55 Nifedipine 30 Mg Tab.Er.24 PO 30 mg QAM USAMA Administration Pantoprazole Sodium 40 mg 06/02/25 09:00 06/02/25 10:07 Pantoprazole 40 Mg Tablet PO Not Given On Hold: 06/02/25 14:42 DAILY USAMA Tamsulosin HCl 0.4 mg 06/10/25 21:00 06/17/25 20:43 Tamsulosin Hcl 0.4 Mg Capsule PO 0.4 mg QHS USAMA Administration Radiology Results: ITS Impressions Head CT 06/01/25 19:30 IMPRESSION: 1. No acute intracranial findings or change from prior exam. Chest X-Ray 06/05/25 14:07 Impression: No acute cardiopulmonary abnormality. Chest/Abdomen/Pelvis CT 06/08/25 20:11 IMPRESSION: 1. Stable appearance of mild UIP pattern chronic interstitial lung disease with no acute cardiopulmonary disease. 2. Large ball of stool at rectum suspicious for constipation with fecal impaction. Mild stranding in the perirectal/presacral fat suggesting possible secondary stercoral colitis. 3. Mild haziness to the fat surrounding the decompressed bladder suspicious for cystitis. Correlate with urinalysis. Venous Doppler Study 06/13/25 11:09 IMPRESSION: 1. No DVT either leg. Abdomen/Pelvis CT 06/15/25 12:32 IMPRESSION: 1. Stercoral colitis. 2. 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 3. Chronic interstitial lung disease. Labs Labs: Laboratory Results - last 24 hr 06/17/25 06/17/25 06/17/25 11:49 16:32 20:41 POC Capillary Glucose 248 H 204 H 331 H 06/18/25 07:51 POC Capillary Glucose 156 H Quality VTE Prophylaxis VTE prophylaxis: mechanical ordered and pharmacologic ordered
[2025-06-18 08:29] LABS: Hematocrit 27.0 % (37.0-47.0); Hemoglobin 8.5 g/dL (12.0-15.0); Immature Granulocyte Percent A 0.9 % (0-0.5); Lymphocytes Absolute Auto 3.14 K/mm3 (0.9-3.2); Mean Corpuscular HGB Conc 31.5 g/dl (32-36); Mean Corpuscular Hemoglobin 29.0 pg (26-34); Mean Corpuscular Volume 92.2 fl (80-100); Nucleated Red Blood Cells Absolute Auto 0.000 K/mm3 (0.0-0.012); Nucleated Red Blood Cells Perc 0.0 % (0.0-0.2); Platelet Count Result 177 k/mm3 (150-375); Red Blood Count 2.93 M/mm3 (4.2-5.4); White Blood Count 20.5 K/mm3 (4.5-10.0)
[2025-06-18 08:51] LABS: Anion Gap 6 mmol/L (4-12); Blood Urea Nitrogen 25 mg/dL (7-17); Calcium 8.6 mg/dL (8.4-10.2); Carbon Dioxide 20 mmol/L (22-30); Chloride 110 mmol/L (98-107); Estimated CRCL calculation 49 ml/min; Estimated Glomerular Filt Rate > 60; Glucose 142 mg/dL (65-110); Potassium 4.4 mmol/L (3.4-5.0); Sodium 136 mmol/L (137-145)
[2025-06-18 08:56] LABS: Alanine Aminotransferase 25 U/L (6-35); Albumin Level 2.9 g/dL (3.5-5.1); Alkaline Phosphatase 75 U/L (38-126); Anion Gap 6 mmol/L (4-12); Aspartate Amino Transferase 23 U/L (14-36); Bilirubin,Total 0.3 mg/dL (0.2-1.3); Blood Urea Nitrogen 25 mg/dL (7-17); Calcium 8.6 mg/dL (8.4-10.2); Carbon Dioxide 20 mmol/L (22-30); Chloride 110 mmol/L (98-107); Estimated CRCL calculation 48 ml/min; Estimated Glomerular Filt Rate > 60; Glucose 143 mg/dL (65-110); Magnesium 2.0 mg/dL (1.6-2.3); Potassium 4.4 mmol/L (3.4-5.0); Sodium 136 mmol/L (137-145); Total Protein 6.2 g/dL (6.3-8.2)
[2025-06-18 09:04] VITALS: PULSE 101
[2025-06-18] MEDS: METOPROLOL TARTRATE 50 MG TAB PO (09:04)
[2025-06-18] MEDS: ISOSORBIDE MONONITRATE 30 MG TAB.ER.24H PO (09:04)
[2025-06-18] MEDS: droNABinol (*CRX) 2.5 MG CAPSULE 10 MG PO (09:04)
[2025-06-18] MEDS: APIXABAN 2.5 MG TABLET PO (09:06)
[2025-06-18 11:45] VITALS: BP 106/63; PULSE 87; RESP 14; O2SAT 92
--- NOTE | 2025-06-18 12:43 | P.DS_ITS ---
DS: Admitting Diagnosis Discharge Date 06/18/2025 Admitting Diagnosis Altered mental status DS: Discharge Diagnosis Discharge Diagnosis (1) RENAE (acute kidney injury): Code(s): N17.9 - Acute kidney failure, unspecified Status: Resolved DS: Summary Hospital Course Hospital Course: Discharge Diagnosis: * Severe sepsis (A41.9, R65.20) * Acute kidney injury, resolved (N17.9) * Colitis (K52.9) * Leukocytosis, resolved (D72.829) * Type 2 diabetes mellitus with hyperglycemia (E11.65) * Essential hypertension (I10) * Congestive heart failure (I50.9) * Hyperlipidemia (E78.5) * Generalized anxiety disorder (F41.1) * Thrombocytopenia (D69.6) * Urinary retention, resolved (R33.9) * Bilateral leg pain (M79.604, M79.605) * Depression (F32.A) * History of non-STEMI, osteoarthritis, venous insufficiency, fibromyalgia Hospital Course Presentation: 75-year-old female with history of diabetes, hypertension, CHF, hypothyroidism, and recent fungal UTI, presented from shelter with confusion, generalized weakness, and altered mental status. Labs notable for leukocytosis (WBC 26?35K), severe RENEA (Cr 6.3, BUN 94), hyperkalemia, metabolic acidosis, and evidence of uremia. Imaging showed no acute intracranial findings, possible cystitis/co litis, and no acute chest findings. Hospital Course: * Altered Mental Status:?Initially AOx0-1, likely multifactorial (uremia, sepsis, metabolic derangements). Resolved with treatment of underlying causes and initiation of hemodialysis. * Sepsis:?Met SIRS criteria. No clear infectious source identified; treated empirically with cefepime, later transitioned to ceftriaxone and metronidazole per ID. Blood and urine cultures negative. Monitored for C. difficile; no evidence of infection. * Acute Kidney Injury:?Severe RENEA on admission, likely multifactorial (sepsis, prerenal factors, possible obstruction). Nephrology consulted; initiated hemodialysis on 06/03 due to uremic encephalopathy and persistent renal failure. Renal function resolved, dialysis discontinued prior to discharge. * Colitis:?Mild colitis on CT, managed with metronidazole. No evidence of C. difficile. * Leukocytosis:?Reactive, improved with sepsis management. * Thrombocytopenia:?Developed during admission, likely secondary to sepsis and medications. Platelet count trended up with clinical improvement to normal. HIT panel sent, hematology consulted. * Urinary Retention:?Jara catheter placed on admission, later removed after avelar ccessful voiding trial. * CHF/Hypertension:?No acute exacerbation. Medications adjusted for renal function and mental status. * Diabetes:?Oral agents held during RENEA; managed with sliding scale insulin. Glycemic control stable. * Psychiatric:?History of anxiety and depression. Outpatient medications (duloxetine, buspirone) held during admission due to altered mental status. Psychiatry consulted; recommended continued monitoring and reassessment as mental status improved. discharged on Mirtazapine 15mg to also help with appetite * Nutrition:?Poor appetite and weight loss addressed with dronabinol and mirtazapine. Dietitian consulted. * DVT Prophylaxis:?Initially on heparin, switched to apixaban due to thrombocytopenia. * Chronic colitis, ID discontinued all Antibiotics and patient will continue follow up for WBC monitoring Procedures/Consults * Hemodialysis catheter placement?(temporary, removed prior to discharge) * Hemodialysis?(initiated 06/03, discontinued after renal recovery) * Echocardiogram:?LVH with hyperdynamic systolic function, grade I diastolic dysfunction, severe mitral annular calcification, mild tricuspid regurgitation * Urology:?No acute intervention; outpatient cystoscopy recommended for bladder wall thickening * Infectious Disease, Nephrology, Psychiatry, Hematology?consulted Discharge Medications * Resume home medications as tolerated and as renal function allows (see reconciled med list) * Atorvastatin, metoprolol 50mg bid down from 100mg, clonidine, diabetes medications (as per glycemic control and renal function) * Continue apixaban for DVT prophylaxis until further hematology guidance * Hold spironolactone and Farxiga until renal function stable * Continue mirtazapine and dronabinol for appetite * Resume psychiatric medications if mental status at baseline * Held Pioglitazone and Rybelsus and follow up with PCP for resumption Condition at Discharge * Alert, improved mentation, hemodynamically stable * Renal function normalized, off dialysis * No evidence of ongoing infection * Tolerating oral intake, appetite improved * Voiding independently Discharge Instructions & Follow-up * Primary Care:?Within 1 week * Nephrology:?For ongoing renal function monitoring * Urology:?Outpatient cystoscopy for bladder wall thickening * Hematology:?For thrombocytopenia follow-up and anticoagulation management * Infectious Disease:?As needed * Psychiatry/Behavioral Health:?As needed if mental status changes or for medication management * Dietitian:?Continue nutritional support as needed * Monitor:?Renal function, CBC, electrolytes, mental status, and signs of infection Time Spent with Patient Time attestation: Total time spent providing and/or coordinating discharge services: DS: Data Data Completed and Pending Labs on day of discharge: Labs from last 24 hours 06/18/25 06/18/25 06/18/25 08:20 08:20 08:20 WBC RBC Hgb Hct MCV MCH MCHC RDW Plt Count MPV Immature Gran % (Auto) Neut % (Auto) Lymph % (Auto) [place] % (Auto) Eos % (Auto) Baso % (Auto) Lymph # (Auto) [place] # (Auto) Eos # (Auto) Baso # (Auto) Abs Immat Gran (auto) Absolute Neuts (auto) Absolute Nucleated RBC Nucleated RBC % Sodium Potassium Chloride Carbon Dioxide Anion Gap BUN Creatinine Estim Creat Clear Calc Estimated GFR > 60 Glucose 143 H 142 H POC Capillary Glucose Calcium 8.6 8.6 Magnesium 2.0 Total Bilirubin 0.3 AST 23 ALT 25 Alkaline Phosphatase 75 Total Protein 6.2 L Albumin 2.9 L 06/18/25 06/18/25 06/18/25 08:20 08:20 08:20 WBC RBC Hgb Hct MCV MCH MCHC RDW Plt Count MPV Immature Gran % (Auto) Neut % (Auto) Lymph % (Auto) [place] % (Auto) Eos % (Auto) Baso % (Auto) Lymph # (Auto) [place] # (Auto) Eos # (Auto) Baso # (Auto) Abs Immat Gran (auto) Absolute Neuts (auto) Absolute Nucleated RBC Nucleated RBC % Sodium Potassium Chloride Carbon Dioxide Anion Gap BUN 25 H Creatinine 0.82 0.80 Estim Creat Clear Calc 48 49 Estimated GFR > 60 Glucose POC Capillary Glucose Calcium Magnesium Total Bilirubin AST ALT Alkaline Phosphatase Total Protein Albumin 06/18/25 06/18/25 06/18/25 08:20 08:20 08:20 WBC RBC Hgb Hct MCV MCH MCHC RDW Plt Count MPV Immature Gran % (Auto) Neut % (Auto) Lymph % (Auto) [place] % (Auto) Eos % (Auto) Baso % (Auto) Lymph # (Auto) [place] # (Auto) Eos # (Auto) Baso # (Auto) Abs Immat Gran (auto) Absolute Neuts (auto) Absolute Nucleated RBC Nucleated RBC % Sodium Potassium Chloride 110 H Carbon Dioxide 20 L 20 L Anion Gap 6 6 BUN 25 H Creatinine Estim Creat Clear Calc Estimated GFR Glucose POC Capillary Glucose Calcium Magnesium Total Bilirubin AST ALT Alkaline Phosphatase Total Protein Albumin 06/18/25 06/18/25 06/18/25 08:20 08:20 08:20 WBC 20.5 H RBC 2.93 L Hgb 8.5 L Hct 27.0 L MCV 92.2 MCH 29.0 MCHC 31.5 L RDW 16.6 H Plt Count 177 MPV 10.7 H Immature Gran % (Auto) 0.9 H Neut % (Auto) 76.2 H Lymph % (Auto) 15.4 L [place] % (Auto) 6.6 Eos % (Auto) 0.6 Baso % (Auto) 0.3 Lymph # (Auto) 3.14 [place] # (Auto) 1.3 H Eos # (Auto) 0.1 Baso # (Auto) 0.1 Abs Immat Gran (auto) 0.18 H Absolute Neuts (auto) 15.6 H Absolute Nucleated RBC 0.000 Nucleated RBC % 0.0 Sodium 136 L 136 L Potassium 4.4 4.4 Chloride 110 H Carbon Dioxide Anion Gap BUN Creatinine Estim Creat Clear Calc Estimated GFR Glucose POC Capillary Glucose Calcium Magnesium Total Bilirubin AST ALT Alkaline Phosphatase Total Protein Albumin 06/18/25 06/17/25 06/17/25 07:51 20:41 16:32 WBC RBC Hgb Hct MCV MCH MCHC RDW Plt Count MPV Immature Gran % (Auto) Neut % (Auto) Lymph % (Auto) [place] % (Auto) Eos % (Auto) Baso % (Auto) Lymph # (Auto) [place] # (Auto) Eos # (Auto) Baso # (Auto) Abs Immat Gran (auto) Absolute Neuts (auto) Absolute Nucleated RBC Nucleated RBC % Sodium Potassium Chloride Carbon Dioxide Anion Gap BUN Creatinine Estim Creat Clear Calc Estimated GFR Glucose POC Capillary Glucose 156 H 331 H 204 H Calcium Magnesium Total Bilirubin AST ALT Alkaline Phosphatase Total Protein Albumin Preliminary micro results at discharge 06/14/25 11:01 Blood Culture - Preliminary Blood 06/14/25 11:04 Blood Culture - Preliminary Blood 06/09/25 20:39 Anaerobic Culture Extend Incubation - Preliminary Catheter Tip Sterile Body Fluid Culture - Preliminary Discharge Plan Discharge Attending physician on discharge: Rony Olmos Consulting providers: Yulissa Sanabria; Mariela Villa; Sha Rahman; Jose Antonio García; Jay Valerio; Anthony Kern; Emerson Souza Discharging Clinician: Rony Olmos Anticipated Discharge Date/Time: 06/18/25 12:26 Patient Disposition: SNF Activity: as tolerated Diet: as tolerated and regular Patient Instructions: Apixaban (By mouth) Patient Language: Welsh Stand Alone Forms: General Discharge Information Follow-up/Referrals: Mariela Villa MD [Physician, Nephrology] Referral Note: F/u with Nephrology as in structed Jose Antonio García MD [Physician, Infectious Disease] Referral Note: F/u with ID as instructed Brad Lopez PA [Physician [employer], Urology] - 3 Weeks Referral Note: UTI w/ bladder wall thickening; Hx of hematuria Sha Rahman MD [Physician, Urology] Referral Note: F/u with urology as instructed Discharge Medications: New dronabinol [Marinol] 2.5 mg Capsule 10 mg PO BID 14 Days Qty: 112 0RF nifedipine [Procardia XL] 30 mg Tablet Extended Release 24hr 30 mg PO QAM 30 Days Qty: 30 0RF ProMod Protein Liquid 1 ea PO TID 30 Days Qty: 5676 0RF isosorbide mononitrate 30 mg Tablet Extended Release 24 Hr 30 mg PO QAM 30 Days Qty: 30 1RF metoprolol tartrate 50 mg Tablet 50 mg PO Q12HR 30 Days Qty: 60 1RF mirtazapine [Remeron] 15 mg Tablet 15 mg PO HS 30 Days Qty: 30 0RF Continued (DME) FreeStyle Yulia 2 [place] Misc See Rx Instructions .Route Qty: 1 0RF Rx Instructions: As directed ammonium lactate [AmLactin] 12 % lotion 1 applic topical DAILY Qty: 225 5RF Patient Comments: pt applies to legs hydrocodone-acetaminophen 5-325 mg tablet 1 tablet PO Q6H PRN (Reason: pain) Qty: 20 0RF bisacodyl 10 mg suppository 10 mg RECTAL DAILY PRN (Reason: constipation) Rx Instructions: if no results from mom cholecalciferol (vitamin D3) 25 mcg (1,000 unit) tablet 1,000 unit PO DAILY magnesium citrate [Citroma] Solution 296 ml PO DAILY PRN (Reason: constipation) Rx Instructions: if no results from enema dapagliflozin propanediol [Farxiga] 10 mg tablet 10 mg PO DAILY fenofibrate 50 mg capsule 50 mg PO DAILY Rx Instructions: current dose 48 mg magnesium hydroxide 400 mg/5 mL suspension 30 ml PO HS PRN (Reason: constipation) ([facility]) lancet-gluc test strip-needles Combo Pack See Rx Instructions .Route Qty: 300 0RF Rx Instructions: As directed ([facility]) OneTouch Verio test strips Strip See Rx Instructions .Route Qty: 300 0RF Rx Instructions: use 1 tid to check blood sugar clonidine HCl 0.3 mg tablet See Rx Instructions .ROUTE .COMPLEX Qty: 60 5RF Dose Instruction: Take 1 tablet by mouth twice daily Rx Instructions: Take 1 tablet by mouth twice daily gabapentin 300 mg capsule 300 mg PO DAILY Qty: 90 1RF atorvastatin 20 mg tablet See Rx Instructions .ROUTE .COMPLEX Qty: 90 0RF Dose Instruction: Take 1 tablet by mouth once daily Rx Instructions: Take 1 tablet by mouth once daily ([facility]) FreeStyle Yulia 2 Sensor Kit See Rx Instructions .ROUTE .COMPLEX Qty: 2 3RF Dose Instruction: USE DIRECTED Rx Instructions: USE DIRECTED pantoprazole 40 mg tablet,delayed release (DR/EC) 40 mg PO DAILY Qty: 60 5RF metformin 500 mg tablet extended release 24 hr 1,000 mg PO BID Qty: 120 3RF Changed baclofen 10 mg tablet 10 mg PO TID PRN (Reason: muscle spasm) 30 Days Qty: 30 0RF Held pioglitazone 15 mg tablet 15 mg PO QAM Hold Instructions: Resume on 07/03/25. Hold until follow up with PCP Rybelsus 7 mg tablet See Rx Instructions .ROUTE .COMPLEX Qty: 30 0RF Hold Instructions: Resume on 07/03/25. Hold until follow up with PCP Dose Instruction: Take 1 tablet by mouth once daily Rx Instructions: Take 1 tablet by mouth once daily Discontinued buspirone 10 mg tablet 10 mg PO BID Qty: 60 5RF metoprolol tartrate 100 mg tablet See Rx Instructions .ROUTE .COMPLEX Qty: 180 0RF Dose Instruction: Take 1 tablet by mouth twice daily Rx Instructions: Take 1 tablet by mouth twice daily duloxetine 60 mg capsule,delayed release(DR/EC) See Rx Instructions .ROUTE .COMPLEX Qty: 90 0RF Dose Instruction: Take 1 capsule by mouth once daily Rx Instructions: Take 1 capsule by mouth once daily spironolactone 25 mg tablet See Rx Instructions .ROUTE .COMPLEX Qty: 30 3RF Dose Instruction: Take 1 tablet by mouth once daily Rx Instructions: Take 1 tablet by mouth once daily Date of admission: 06/01/25 18:22 Primary Care Provider: Parish,Jose Admitting Provider: Eladio Diamond Attending physician on admission: Eladio Diamond Condition: Serious
== END 2025-06-18 14:50 | DRG 871 ==
LOC: ANHED 15:58 → ANHIMU 19:29 → ANH2MED 06-05 05:52 → ANHIMU 06-21 08:40
PROVIDERS: Internal Medicine; Internal Medicine Hematology & Oncology; Internal Medicine Infectious Disease; Internal Medicine Nephrology; Nurse Practitioner; Student in an Organized Health Care Education/Training Program; Surgery; Admitting Provider Internal Medicine; Emergency Provider Student in an Organized Health Care Education/Training Program; Visit Provider Internal Medicine
PROC: 02HV33Z Insertion of Infusion Device into Superior Vena Cava, Percutaneous Approach (ICD-10-PCS; CPT 36908; principal; 2025-06-03 15:00)
DX: A41.9 Sepsis, unspecified organism (principal); E43 Unspecified severe protein-calorie malnutrition; N17.9 Acute kidney failure, unspecified; K52.9 Noninfective gastroenteritis and colitis, unspecified; D72.829 Elevated white blood cell count, unspecified; R65.20 Severe sepsis without septic shock; I11.0 Hypertensive heart disease with heart failure; I50.9 Heart failure, unspecified; I87.2 Venous insufficiency (chronic) (peripheral); E87.6 Hypokalemia; E87.5 Hyperkalemia; E78.5 Hyperlipidemia, unspecified; E03.9 Hypothyroidism, unspecified; E11.9 Type 2 diabetes mellitus without complications; D69.6 Thrombocytopenia, unspecified; K56.41 Fecal impaction; N30.90 Cystitis, unspecified without hematuria; R00.0 Tachycardia, unspecified; R33.9 Retention of urine, unspecified; Z20.822 Contact with and (suspected) exposure to COVID-19; M79.604 Pain in right leg; M15.9 Polyosteoarthritis, unspecified; M79.7 Fibromyalgia; F41.1 Generalized anxiety disorder; F32.A Depression, unspecified; I25.2 Old myocardial infarction; Z68.24 Body mass index [BMI] 24.0-24.9, adult
CPT/HCPCS: 36415; 70450; 71045; 71250; 74176; 77001; 80048; 80053; 81001; 81050; 82550; 82570; 82728; 82948; 83540; 83550; 83605; 83735; 84100; 84132; 84156; 84300; 84540; 85025; 85027; 85055; 85610; 85652; 85730; 85999; 86022; 86140; 86704; 86705; 86706; 87040; 87086; 87340; 87637; 93005; 93970; 96360; 97110; 97162; 97166; 97530; 97535; 99291; J0690; A9270; C1752; C8929; G0257; J0360; J0616; J0692; J0696; J1644; J1815; J1836; J2004; J2185; J2704; J2997; J7030; J7040; Q9957

== ENCOUNTER 2025-06-18 23:05 | Inpatient (IN) | payer MEDICARE, MEDICAID, SELFPAY ==
[2025-06-18] VITALS (15 sets, daily range): BP systolic 88–125; BP diastolic 51–73; PULSE 69–147; RESP 16–25; TEMP 36.7; O2SAT 92–95
--- NOTE | ~2025-06-18 | CT_ITS ---
EXAMINATION: CT chest abdomen pelvis w con DATE: 06/19/2025 00:17 INDICATION: Sepsis. TECHNIQUE: Computed tomography (CT) of the chest, abdomen, and pelvis was performed with 100 mL Omnipaque 350 intravenous contrast. Automated exposure control and iterative reconstruction technique were employed. The dose-length product was 980.89 mGy-cm. COMPARISON: CT abdomen and pelvis 06/15/2025 FINDINGS: CHEST CT: There is peripheral honeycombing in the lungs. There is a diffuse interstitial pattern in the lungs. There are airspace and groundglass opacities in all lobes. Calcified right lung nodules and calcified right hilar and mediastinal lymph nodes are consistent with old granulomatous disease. There are small pleural effusions. The heart size is normal. There are coronary artery calcifications. No pericardial effusion. There is moderate thoracic spondylosis. ABDOMEN/PELVIS CT: The liver is normal. Calcifications in the spleen are consistent with old granulomatous disease. There is a gallstone in the gallbladder, which is normal in size. The pancreas, and adrenal glands are normal. There is cortical thinning of the kidneys. The bladder is distended. The rectosigmoid is distended and stool-filled with wall thickening, consistent with stercoral colitis. There is diverticulosis of the colon without evidence of diverticulitis. There is a large volume of stool in the colon. The appendix is normal. There is calcified atherosclerosis of the aorta and many of the other arteries. There is moderate stenosis of infrarenal aorta. There is moderate stenosis of left common iliac artery. There are no pathologically enlarged lymph nodes. There is no free intraperitoneal fluid. There is severe lumbar spondylosis. There are chronic compression fracture of L1. IMPRESSION: 1. Diffuse lung disease, consistent with pulmonary edema versus pneumonia superimposed on chronic interstitial lung disease. 2. Small pleural effusions. 3. 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 4. Stercoral colitis. Reviewed, dictated and finalized at location E. IMPRESSION: 1. Diffuse lung disease, consistent with pulmonary edema versus pneumonia super imposed on chronic interstitial lung disease. 2. Small pleural effusions. 3. 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 4. Stercoral colitis.
--- NOTE | ~2025-06-18 | CT_ITS ---
EXAMINATION: CT brain wo con DATE: 06/19/2025 00:17 INDICATION: Altered mental status. TECHNIQUE: Computed tomography (CT) of the head was performed without intravenous contrast. The mA was adjusted according to patient size. Iterative reconstruction technique was employed. The dose-length product was 681.00 mGy-cm. 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 There is an old infarct in left frontal lobe. There is an old infarct in right frontal lobe. There is no intracranial hemorrhage, acute infarction, or abnormal intracranial mass lesion. The ventricles are normal in size. There is mild mucosal thickening in the paranasal sinuses. The mastoid air cells are normal. The orbits are normal. IMPRESSION: 1. 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 Reviewed, dictated and finalized at location E.
--- NOTE | 2025-06-18 23:07 | ECG_ITS ---
Test Date: 2025-06-18 23:12:44 Measurements Intervals [place] Rate: 72 P: 46 [place]: 191 QRS: 11 QRSD: 81 T: 41 QT: 367 QTc: 404 Interpretive Statements SINUS RHYTHM CONSIDER INFERIOR INFARCT, AGE INDETERMINATE ABNORMAL ECG Compared to ECG 06/06/2025 12:48:27 HEART RATE HAS DECREASED Electronically Signed On 06-19-2025 07:24:25 CDT by Chalino Navarro D.O.
--- NOTE | 2025-06-18 23:08 | PC.NURSE ---
Narcan 2mg given to patient via IV per MD orders.
--- NOTE | 2025-06-18 23:21 | ED.AMS ---
HPI - Altered Mental Status General Chief Complaint: Altered Mental Status Stated Complaint: LOW O2 SAT, HYPOTENSIE, RESPONSIVE TO VERBAL Time Seen by Provider: 06/18/25 23:13 History of Present Illness HPI narrative: 75-year-old female with history of diabetes, hypertension, CHF, hypothyroidism. Recent admission to the hospital for urinary tract infection, severe sepsis, mental status changes and confusion. She required emergent dialysis temporarily for renal dysfunction and failure. Was treated with antibiotics and was discharged today around noon. retirement were patient was discharged to found the patient minimally responsive tonight after administering her last round medications around 3:00 p.m. she got some metoprolol and clonidine but no opiates or any other additional agents. EMS found the patient hypotensive, hypopnea, hypoxic, minimally responsive. Patient received fluid bolus and was minimally responsive to verbal stimuli and painful stimuli. Currently responsive to sternal rub and able to answer questions before dozing off. No obvious traumatic injuries. Does appear very dehydrated with dry tongue and deep respirations concerning for respiratory failure/recurrence of her severe sepsis and renal failure. Placed in the room 10 for evaluation and treatment. Related Data Home Medications ?Medication ?Instructions ?Recorded ?Confirmed ?Last Taken ?Type bisacodyl 10 mg rectal suppository 10 mg RECTAL DAILY PRN constipation 06/01/25 06/19/25 Unknown History cholecalciferol (vitamin D3) 25 1,000 unit PO DAILY 06/01/25 06/19/25 Unknown History mcg (1,000 unit) tablet dapagliflozin propanediol 10 mg 10 mg PO DAILY 06/01/25 06/19/25 Unknown History tablet (Farxiga) fenofibrate 50 mg capsule 50 mg PO DAILY 06/01/25 06/19/25 Unknown History magnesium citrate (Citroma oral 296 ml PO DAILY PRN constipation 06/01/25 06/19/25 Unknown History solution) magnesium hydroxide 400 mg/5 mL 30 ml PO HS PRN constipation 06/01/25 06/19/25 Unknown History oral suspension pioglitazone 15 mg tablet 15 mg PO QAM 06/01/25 06/19/25 Unknown History Held on 06/18/25. Instructions: Resume on 07/03/25. Hold until follow up with PCP Allergies Allergy/AdvReac Type Severity Reaction Status Date / Time amoxicillin (From Augmentin) Allergy Unknown Verified 06/19/25 17:39 clavulanic acid (From Allergy Unknown Verified 06/19/25 17:39 Augmentin) Review of Systems Review of Systems: ROS unobtainable: Yes unobtainable due to medical condition and unobtainable due to mental status [facility] Past Medical History Medical History Leukocytosis Generalized anxiety disorder Depression Hyperlipidemia Back pain Eczema Osteoarthritis Venous insufficiency (chronic) (peripheral) DM2 (diabetes mellitus, type 2) Non-ST elevated myocardial infarction (non-STEMI) Osteoarthritis of hands, bilateral Bilateral primary osteoarthritis of knee Essential (primary) hypertension Fibromyalgia Arthralgia of multiple joints Surgical History Surgical History History of tubal ligation (~1989) Family History Family History Grandparent Acute myocardial infarction Cerebrovascular accident Heart disease Mother Colon polyp Diabetes mellitus Pancreatic adenocarcinoma Other Depression Hypertension Neuralgia of both lower extremities Social History Social History Social History: Surrogate medical decision maker: Shravan Ramsay, spouse. Code status: Full code. Smoking status: Never smoker Second hand tobacco smoke exposure: No Alcohol intake: never Substance use: never Substance use type: former substance user and marijuana Last use: 03/26/25 Do You Feel Safe in your Home?: Yes Lack of Transportation: No Lack of Food: Never True Current Housing: I Have Housing Concerned About Future Housing: No Difficulty Paying Gas/Electric Bills: No Difficulty Paying for Meds: No Currently Unemployed: No Education: Decline to Answer Difficulty w/ Childcare or Family Care: No Living arrangements: with family Occupation/Education: retired Spiritual care concerns: No Agree to blood products: Yes Exam Narrative: GENERAL: Ill-appearing, deep respirations, dehydrated appearance HEAD: [Normocephalic, atraumatic.] EYES: [PERRLA and EOMI.] ENT: Nares clear, no rhinorrhea or epistaxis. Mucous membranes dry. NECK: Supple. CHEST: Deep respirations and tachypnea. No crepitus with palpation, some mild coarse breath sounds. No wheezing or retractions. HEART: [Regular rate and rhythm]. No murmur heard. [Normal peripheral pulses.] ABDOMEN: Soft and nondistended, tender to palpation in the right lower quadrant, no overlying skin changes, no rigidity or guarding EXTREMITIES: Normal range of motion. No edema SKIN: Warm, dry, no rash. NEURO: A&O times 0-1 with sternal rubbing. Able to maintain her airway. Cough and gag intact. When aroused she is able to answer a question and verbalize with clear speech and then goes back this sleep PSYCH: Unable to assess Course Vital Signs Vital signs: Vital Signs Respiratory Rate 25 H 06/18/25 23:09 Pulse Oximetry 95 06/18/25 23:09 Temperature 37.3 C 06/19/25 17:46 Pulse Rate 128 H 06/19/25 17:46 Respiratory Rate 44 H 06/19/25 17:46 Blood Pressure 156/77 H 06/19/25 17:46 Pulse Oximetry 91 06/19/25 17:46 Oxygen Delivery High Flow Therapy with Nasal Cannula 06/19/25 17:53 Oxygen Flow Rate 60 06/19/25 17:53 Fraction of Inspired Oxygen 90 06/19/25 17:27 MDM - Altered Mental Status MDM Narrative Medical decision making narrative: 75-year-old female with history of diabetes, hypertension, CHF, hypothyroidism. Recent admission to the hospital for urinary tract infection, severe sepsis, mental status changes and confusion. She required emergent dialysis temporarily for renal dysfunction and failure. Was treated with antibiotics and was discharged today around noon. retirement were patient was discharged to found the patient minimally responsive tonight after administering her last round medications around 3:00 p.m. she got some metoprolol and clonidine but no opiates or any other additional agents. EMS found the patient hypotensive, hypopnea, hypoxic, minimally responsive. Patient received fluid bolus and was minimally responsive to verbal stimuli and painful stimuli. Currently responsive to sternal rub and able to answer questions before dozing off. No obvious traumatic injuries. Does appear very dehydrated with dry tongue and deep respirations concerning for respiratory failure/recurrence of her severe sepsis and renal failure. Placed in the room 10 for evaluation and treatment. Patient has deep respirations tachycardia, hypotensive, tachypneic and hypoxic requiring supplemental oxygen. Improved to 95% on 2 L nasal cannula. Afebrile. Does appear very dry and dehydrated. Recently admitted for sepsis and renal failure. Suspect recurrence of her sepsis, renal failure, intracranial process such as stroke not excluded yet but she has no focal appreciable deficits aside from her mental status changes which improved with verbal and physical stimuli but not back to baseline. Protecting her own airway at this time. Patient placed on belt machine operator and pulse oximetry. Septic bundle initiated. ABG obtained. Blood cultures lactic acid drawn. Empirically started on vancomycin and cefepime. Recent cultures were unremarkable. Urinalysis with straight catheterization and toxicological screenings obtained. CT of the head ordered. CT chest abdomen pelvis obtained. Patient's mentation markedly improved with rehydration. Blood pressure improved as well as her tachycardia being resolved. Still hypoxic requiring supplemental oxygen at this time. High flow started as NC not going above 85%. Patient is DNR/DNI. CT scans were independently reviewed and interpreted by radiology. She has bilateral pleural effusions that are new since last scan as well as hazy opacities bilaterally. Possibility of pulmonary edema versus CHF versus pneumonia. No pneumothorax. Abdomen pelvis shows fecal impaction but no inflammatory changes or obstruction. No evidence of pulmonary embolism. Suspect component of third spacing with the effusions, given 25%albumin boluses x4 ordered. Patient remains hemodynamically stable. At this time given hypoxic respiratory failure, persist concern for sepsis rebounding with fluids she will require admission to the hospital for further evaluation and treatment. Spoke to the hospitalist Dr. Nieves who accepted the patient to the IMU at this time. Patient updated on plan of care. Will remain on antibiotics and additional supplemental oxygen. Medical Records Attestation: I reviewed the patient's medical records. Lab Data Attestation: I reviewed the patient's lab results. 06/18/25 23:25 06/18/25 23:24 Labs: Lab Results 06/18/25 06/18/25 06/18/25 Range/Units 23:16 23:24 23:25 WBC 17.1 H (4.5-10.0) K/mm3 RBC 2.65 L (4.2-5.4) M/mm3 Hgb 7.7 L (12.0-15.0) g/dL Hct 24.4 L (37.0-47.0) % MCV 92.1 (80-100) fl MCH 29.1 (26-34) pg MCHC 31.6 L (32-36) g/dl RDW 16.4 H (11.5-14.5) % Plt Count 175 (150-375) k/mm3 MPV 11.0 H (7.4-10.4) fl Immature Gran % (Auto) 0.8 H (0-0.5) % Neut % (Auto) 73.3 H (45.5-73.1) % Lymph % (Auto) 18.4 (18.3-44.2) % [place] % (Auto) 6.0 (2.6-8.5) % Eos % (Auto) 1.1 (0-4.4) % Baso % (Auto) 0.4 (0.2-1.2) % Lymph # (Auto) 3.15 (0.9-3.2) K/mm3 [place] # (Auto) 1.0 H (0.1-0.6) K/mm3 Eos # (Auto) 0.2 (0-0.3) K/mm3 Baso # (Auto) 0.1 (0.0-0.1) K/mm3 Abs Immat Gran (auto) 0.13 H (0.00-0.031) K/mm3 Absolute Neuts (auto) 12.6 H (1.3-6.7) K/mm3 Absolute Nucleated RBC 0.000 (0.0-0.012) K/mm3 Nucleated RBC % 0.0 (0.0-0.2) % ESR > 140 H (0-20) mm/hr PT 17.8 H (11.1-14.7) Seconds INR 1.5 APTT 44.8 H (22.3-36.8) Seconds Methemoglobin 0.2 (0-1.5) %THb Sodium 135 L (137-145) mmol/L Potassium 4.3 (3.4-5.0) mmol/L Chloride 111 H (98-107) mmol/L Carbon Dioxide 19 L (22-30) mmol/L Anion Gap 5 (4-12) mmol/L BUN 31 H (7-17) mg/dL Creatinine 0.89 (0.7-1.0) mg/dL Estim Creat Clear Calc Not Reportable Estimated GFR > 60 (59 - ) Glucose 146 H (65-110) mg/dL Lactic Acid 1.3 (0.7-2.0) mmol/L Calcium 8.0 L (8.4-10.2) mg/dL Total Bilirubin 0.3 (0.2-1.3) mg/dL AST 48 H (14-36) U/L ALT 37 H (6-35) U/L Alkaline Phosphatase 67 (38-126) U/L C-Reactive Protein 13.8 H (<1.0) mg/dL Total Protein 5.7 L (6.3-8.2) g/dL Albumin 2.6 L (3.5-5.1) g/dL Procalcitonin 0.3 ng/mL TSH (Reflex) 1.040 (0.465-4.68) uIU/mL Salicylates < 1.0 L (2-20) mg/dL Acetaminophen < 10 L (10-30) ug/mL ABG Data ABG results: 06/18/25 23:24 ABG pH 7.475 H ABG pCO2 25.9 L ABG pO2 64.2 L ABG PO2/FiO2 Ratio 2.29 ABG HCO3 18.6 L ABG O2 Saturation 94.2 L ABG O2 Content 11.1 L ABG Base Excess -4.1 A-a Gradient 104.9 Oxyhemoglobin 91.2 Carboxyhemoglobin 0.3 Reduced Hemoglobin 8.3 H Total Hemoglobin 8.6 L FiO2 28 Critical Care Time Critical Care Time Critical Care Time: Yes Total Critical Care Time: 45 Discharge Plan Discharge Clinical Impression: Encephalopathy, Acute hypoxemic respiratory failure, Hypoxemia requiring supplemental oxygen, Low serum albumin, Pleural effusion, Acute hypotension, Leukocytosis Patient Disposition: Still a Patient Condition: Guarded Prognosis
[2025-06-18] MEDS: LACTATED RINGERS 100 ML 999 ML IV CONT (23:36)
[2025-06-18] MEDS: CEFEPIME 2 GM in SODIUM CHLORIDE 0.9% IV 50 ML 100 ML IVPB (23:37)
[2025-06-18] MEDS: LACTATED RINGERS 1,000 ML 999 ML IV CONT ×2 (23:37)
[2025-06-18 23:38] LABS: Hematocrit 24.4 % (37.0-47.0); Hemoglobin 7.7 g/dL (12.0-15.0); Immature Granulocyte Percent A 0.8 % (0-0.5); Lymphocytes Absolute Auto 3.15 K/mm3 (0.9-3.2); Mean Corpuscular HGB Conc 31.6 g/dl (32-36); Mean Corpuscular Hemoglobin 29.1 pg (26-34); Mean Corpuscular Volume 92.1 fl (80-100); Nucleated Red Blood Cells Absolute Auto 0.000 K/mm3 (0.0-0.012); Nucleated Red Blood Cells Perc 0.0 % (0.0-0.2); Platelet Count Result 175 k/mm3 (150-375); Red Blood Count 2.65 M/mm3 (4.2-5.4); White Blood Count 17.1 K/mm3 (4.5-10.0)
[2025-06-18 23:40] LABS: Alveolar/Arterial O2 Gradient 104.9 mmHg; Carboxyhemoglobin 0.3 % THb (0-2.0); Fractional Inspired Oxygen 28 %; HCO3 ABG 18.6 mEq/l (22.0-26.0); Methemoglobin ABG 0.2 %THb (0-1.5); Oxygen Content ABG 11.1 %vol (16.0-22.0); Oxygen Saturation ABG 94.2 % (95.0-100.0); PCO2 ABG 25.9 mmHg (35.0-45.0); PO2 ABG 64.2 mmHg (80.0-100.0); PO2 FiO2 Ratio Arterial Blood 2.29 %; Reduced Hemoglobin 8.3 %THb (0-5.0)
[2025-06-18 23:48] LABS: Acetaminophen < 10 ug/mL (10-30); Salicylate < 1.0 mg/dL (2-20)
[2025-06-18 23:53] LABS: Alanine Aminotransferase 37 U/L (6-35); Albumin Level 2.6 g/dL (3.5-5.1); Alkaline Phosphatase 67 U/L (38-126); Anion Gap 5 mmol/L (4-12); Aspartate Amino Transferase 48 U/L (14-36); Bilirubin,Total 0.3 mg/dL (0.2-1.3); Blood Urea Nitrogen 31 mg/dL (7-17); Calcium 8.0 mg/dL (8.4-10.2); Carbon Dioxide 19 mmol/L (22-30); Chloride 111 mmol/L (98-107); Estimated Glomerular Filt Rate > 60; Glucose 146 mg/dL (65-110); Potassium 4.3 mmol/L (3.4-5.0); Sodium 135 mmol/L (137-145); Total Protein 5.7 g/dL (6.3-8.2)
[2025-06-19] VITALS (246 sets, daily range): BP systolic 94–165; BP diastolic 48–103; PULSE 69–128; RESP 10–44; TEMP 36.9–37.3; O2SAT 82–100; BMI 25.6
[2025-06-19] MEDS: NALOXONE HCL INJ 2 MG/2 ML AMP IV PUSH (00:01)
[2025-06-19 00:04] LABS: CRP 13.8 mg/dL (<1.0)
[2025-06-19 00:11] LABS: Procalcitonin 0.3 ng/mL
[2025-06-19 00:24] LABS: Thyroid Stimulating Hormone Reflex 1.040 uIU/mL (0.465-4.68)
[2025-06-19 00:26] LABS: INR 1.5; Prothrombin Time 17.8 Seconds (11.1-14.7)
[2025-06-19 00:27] LABS: Partial Thromboplastin Time 44.8 Seconds (22.3-36.8)
[2025-06-19] MEDS: Please enter patient height and weight for medication dosing 1 EACH XX (00:36)
[2025-06-19] MEDS: ALBUMIN HUMAN 25% 25 GM/100 ML 100 ML IVPB ×3 (01:52→15:03)
[2025-06-19] MEDS: LACTATED RINGERS 1,000 ML 100 ML IV CONT (02:02)
[2025-06-19] MEDS: VANCOMYCIN 1,750 MG/NS 500 ML 1,750 MG/500 ML BAG 250 MG IVPB (02:39)
[2025-06-19 03:49] LABS: Add Urine Microscopic? YES; Appearance Urine Cloudy (Clear); Glucose Urine UA 2+ mg/dL (Negative); Leukocyte Esterase Ur 3+ LEU/UL (Negative); Need Manual Microscopic Reviewed; Nitrate Urine Negative (Negative); Specific Grav Ur 1.018 (1.001-1.035)
--- NOTE | 2025-06-19 08:15 | PC.NURSE ---
NRB removed at 0730- maintained 100% foi2 on airvo. maintained spo2 of 98%
--- NOTE | 2025-06-19 09:42 | PC.NURSE ---
pt calling out for help, stating that she can't breathe- patient spo2 - 87% on 51% 55L airvo. patient getting increasingly restless. nrb placed over airvo to help oxygenation. respiratory called at this time and called to come to bedside
--- NOTE | 2025-06-19 09:56 | PC.NURSE ---
respiratory discussed bipap with the patient, patient stated that she did not want bipap states absolutely not
[2025-06-19] MEDS: LACTATED RINGERS 1,000 ML 60 ML IV CONT (13:05)
[2025-06-19] MEDS: MEGESTROL ACETATE (*CHEMO) ORAL SUSP 40 MG/ML UD 400 MG PO (13:42)
--- NOTE | 2025-06-19 17:33 | P.RRN_ITS ---
Critical Care Event Note Summary Code activated: No Narrative: Called to bedside by nursing because patient would like to be a comfort care patient. On assessment patient is in mild distress, tachypneic, tachycardic, and hypoxic on Vapotherm. Presents are extremely course. Patient is A&O x4. Patient's chart reviewed with several comorbidities including acute CHF and end- stage renal disease on dialysis. We will offer the patient a dignified in on her wishes being comfort care only. Her code status has been updated and family has been informed. Although the has been disagrees with thick was status change he will respect her wishes. Patient informed of this. She states that he does not know what is likely here out being older breathe. She is firm in her decision of being comfort care only. Medications have been ordered. Critical Care Time Critical Care Time: Yes Total Critical Care Time: 35 minutes Due to a high probability of clinically significant, life threatening deterioration, the patient required my highest level of preparedness to intervene emergently and I personally spent this critical care time directly and personally managing the patient. This critical care time included obtaining a history; examining the patient; pulse oximetry; ordering and review of studies; arranging urgent treatment with development of a management plan; evaluation of patient's response to treatment; frequent reassessment; and discussions with other providers. It was exclusive of separately billable procedures and treating other patients and teaching time. Please see Assessment and Plan section and the rest of the note for further information on patient assessment and treatment. This case had a high probability of a clinically significant, sudden, or life threatening deterioration of this patient's condition which required my full and direct attention, intervention and personal management. Critical care time: 30 - 74 mins
--- NOTE | 2025-06-19 17:37 | ADMGEN ---
This patient, Aggie Donald, was admitted to IMU Room 231-01. Patient/family oriented to hospital policies and general routines including ID bracelet, bed and alarms, visiting hours, pain management, procedures, bathroom and other care routines, personal items, smoking policy, room service/diet, and visiting hours. Information on how to activate the Rapid Response Team has been discussed. Patient/Family are encouraged to report perceived risks to care and to ask questions if they do not understand what they are told or what they should do.
[2025-06-19] MEDS: MORPHINE SULFATE INJ (*CRX) 10 MG/ML AMP 5 MG IV PUSH (17:46)
[2025-06-19] MEDS: GLYCOPYRROLATE INJ (*SP) 0.2 MG/ML VIAL IV PUSH (17:57)
--- NOTE | 2025-06-19 18:33 | PM.IMHP ---
H&P: HPI History of Present Illness Date/Time: 06/19/25 18:33 Chief Complaint: Altered mental status respiratory failure hypertension. Narrative: Insert 5-year-old female past medical history of diabetes type 2, hypertension, CHF, hypothyroidism who was recently managed for severe sepsis, acute renal failure, colitis, leukocytosis, and discharged yesterday from the hospital return this morning after she was found with altered mental status mostly unresponsive also found to be hypotensive, was brought to ER by EMS. At the time of this encounter patient was alert and oriented x3, hypertension was brought to the ER because of shortness of breath. Otherwise patient was noncommittal with flat affect. ER about notable for heart rates 101, respiratory 24, saturation 96% high-flow nasal cannula oxygen 90% and 55 flow rate Labs notable for WBC 17.1, improvement from yesterday of 20.5, hemoglobin 7.7, ESR 150, ABG 7.475/25.9/64.2/18.6. CT head no acute changes. CT chest and abdomen pelvis showed diffuse lung disease consistent with pulmonary edema versus pneumonia superimposed on chronic interstitial lung disease, small pleural effusions, a stercoral colitis. Patient started antibiotics and IV fluid prior to admission. Shortly after admission patient was made comfort care. Review of Systems Review of Systems: Patient was noncommittal uncooperative unable to do review of systems a. [facility] Past Medical History Medical History Leukocytosis Generalized anxiety disorder Depression Hyperlipidemia Back pain Eczema Osteoarthritis Venous insufficiency (chronic) (peripheral) DM2 (diabetes mellitus, type 2) Non-ST elevated myocardial infarction (non-STEMI) Osteoarthritis of hands, bilateral Bilateral primary osteoarthritis of knee Essential (primary) hypertension Fibromyalgia Arthralgia of multiple joints Surgical History Surgical History History of tubal ligation (~1989) Family History Family History Grandparent Acute myocardial infarction Cerebrovascular accident Heart disease Mother Colon polyp Diabetes mellitus Pancreatic adenocarcinoma Other Depression Hypertension Neuralgia of both lower extremities Social History Social History Social History: Surrogate medical decision maker: Shravan Ramsay, spouse. Code status: Full code. Smoking status: Never smoker Second hand tobacco smoke exposure: No Alcohol intake: never Substance use: never Substance use type: former substance user and marijuana Last use: 03/26/25 Do You Feel Safe in your Home?: Yes Lack of Transportation: No Lack of Food: Never True Current Housing: I Have Housing Concerned About Future Housing: No Difficulty Paying Gas/Electric Bills: No Difficulty Paying for Meds: No Currently Unemployed: No Education: Decline to Answer Difficulty w/ Childcare or Family Care: No Living arrangements: with family Occupation/Education: retired Spiritual care concerns: No Agree to blood products: Yes Meds Home Medications and Allergies Home Medications ?Medication ?Instructions ?Recorded ?Confirmed ?Type lancet with blood glucose test #300 ea 01/29/23 06/19/25 Rx strips and pen needles combo pack blood sugar diagnostic (OneTouch #300 ea 05/20/23 06/19/25 Rx Verio test strips) flash glucose scanning reader #1 ea 05/20/23 06/19/25 Rx (FreeStyle Yulia 2 [place]) ammonium lactate 12 % lotion 1 applic topical DAILY #225 grams 10/26/24 06/19/25 Rx (AmLactin) clonidine HCl 0.3 mg tablet See Rx Instructions .Route 12/27/24 06/19/25 Rx .COMPLEX #60 tabs gabapentin 300 mg capsule 300 mg PO DAILY #90 caps 03/03/25 06/19/25 Rx atorvastatin 20 mg tablet See Rx Instructions .Route 04/07/25 06/19/25 Rx .COMPLEX #90 tabs flash glucose sensor (FreeStyle #2 ea 04/12/25 06/19/25 Rx Yulia 2 Sensor kit) hydrocodone 5 mg-acetaminophen 325 1 tablet PO Q6H PRN pain #20 tabs 04/30/25 06/19/25 Rx mg tablet pantoprazole 40 mg tablet,delayed 40 mg PO DAILY #60 tabs 05/27/25 06/19/25 Rx release bisacodyl 10 mg rectal suppository 10 mg RECTAL DAILY PRN constipation 06/01/25 06/19/25 History cholecalciferol (vitamin D3) 25 1,000 unit PO DAILY 06/01/25 06/19/25 History mcg (1,000 unit) tablet dapagliflozin propanediol 10 mg 10 mg PO DAILY 06/01/25 06/19/25 History tablet (Farxiga) fenofibrate 50 mg capsule 50 mg PO DAILY 06/01/25 06/19/25 History magnesium citrate (Citroma oral 296 ml PO DAILY PRN constipation 06/01/25 06/19/25 History solution) magnesium hydroxide 400 mg/5 mL 30 ml PO HS PRN constipation 06/01/25 06/19/25 History oral suspension pioglitazone 15 mg tablet 15 mg PO QAM 06/01/25 06/19/25 History Held on 06/18/25. Instructions: Resume on 07/03/25. Hold until follow up with PCP semaglutide 7 mg tablet (Rybelsus) See Rx Instructions .Route 06/03/25 06/19/25 Rx Held on 06/18/25. .COMPLEX #30 tabs Instructions: Resume on 07/03/25. Hold until follow up with PCP metformin 500 mg tablet,extended 1,000 mg (2 x 500 mg) PO BID #120 06/08/25 06/19/25 Rx release 24 hr tabs baclofen 10 mg tablet 10 mg PO TID PRN muscle spasm 30 06/18/25 06/19/25 Rx days #30 tabs dronabinol 2.5 mg capsule (Marinol) 10 mg (4 x 2.5 mg) PO BID 14 days 06/18/25 06/19/25 Rx #112 caps isosorbide mononitrate 30 mg 30 mg PO QAM 30 days #30 tabs 06/18/25 06/19/25 Rx tablet,extended release 24 hr metoprolol tartrate 50 mg tablet 50 mg PO Q12HR 30 days #60 tabs 06/18/25 06/19/25 Rx mirtazapine 15 mg tablet (Remeron) 15 mg PO HS 30 days #30 tabs 06/18/25 06/19/25 Rx nifedipine 30 mg tablet,extended 30 mg PO QAM 30 days #30 tabs 06/18/25 06/19/25 Rx release 24 hr (Procardia XL) protein supplement (ProMod Protein 1 ea PO TID 30 days #5,676 mL 06/18/25 06/19/25 Rx oral liquid) Allergies Allergy/AdvReac Type Severity Reaction Status Date / Time amoxicillin (From Augmentin) Allergy Unknown Verified 06/19/25 17:39 clavulanic acid (From Allergy Unknown Verified 06/19/25 17:39 Augmentin) Vital Signs Vital Signs - 24 hr 06/18/25 23:09 06/18/25 23:10 06/18/25 23:11 Temperature Pulse Rate 108 H 147 H Respiratory Rate 25 H 19 24 H Blood Pressure 99/51 L 90/55 L Pulse Oximetry 95 94 93 Oxygen Delivery Oxygen Flow Rate Fraction of Inspired Oxygen 06/18/25 23:13 06/18/25 23:15 06/18/25 23:16 Temperature 98.0 F Pulse Rate 72 75 69 Respiratory Rate 22 H 23 H 22 H Blood Pressure 93/56 L 88/54 L Pulse Oximetry 94 94 94 Oxygen Delivery Nasal Cannula Oxygen Flow Rate 2 Fraction of Inspired Oxygen 06/18/25 23:17 06/18/25 23:29 06/18/25 23:30 Temperature Pulse Rate 72 83 80 Respiratory Rate 23 H 16 20 Blood Pressure 114/67 Pulse Oximetry 95 95 93 Oxygen Delivery Oxygen Flow Rate Fraction of Inspired Oxygen 06/18/25 23:31 06/18/25 23:36 06/18/25 23:41 Temperature Pulse Rate 78 78 77 Respiratory Rate 18 16 19 Blood Pressure 114/65 112/65 114/73 Pulse Oximetry 92 95 Oxygen Delivery Oxygen Flow Rate Fraction of Inspired Oxygen 06/18/25 23:45 06/18/25 23:46 06/18/25 23:47 Temperature Pulse Rate 81 80 82 Respiratory Rate 19 20 17 Blood Pressure 125/71 Pulse Oximetry 94 94 94 Oxygen Delivery Oxygen Flow Rate Fraction of Inspired Oxygen 06/19/25 00:17 06/19/25 00:30 06/19/25 00:38 Temperature Pulse Rate 82 78 84 Respiratory Rate 20 17 17 Blood Pressure 102/53 L Pulse Oximetry 90 92 Oxygen Delivery Oxygen Flow Rate Fraction of Inspired Oxygen 06/19/25 00:41 06/19/25 00:45 06/19/25 00:46 Temperature Pulse Rate 81 82 80 Respiratory Rate 19 21 H 20 Blood Pressure 119/62 127/99 H Pulse Oximetry Oxygen Delivery Oxygen Flow Rate Fraction of Inspired Oxygen 06/19/25 00:47 06/19/25 00:51 06/19/25 00:56 Temperature Pulse Rate 79 76 73 Respiratory Rate 17 20 19 Blood Pressure 94/55 L 101/58 L Pulse Oximetry Oxygen Delivery Oxygen Flow Rate Fraction of Inspired Oxygen 06/19/25 01:00 06/19/25 01:01 06/19/25 01:06 Temperature Pulse Rate 74 78 74 Respiratory Rate 16 19 18 Blood Pressure 103/63 111/64 Pulse Oximetry Oxygen Delivery Oxygen Flow Rate Fraction of Inspired Oxygen 06/19/25 01:11 06/19/25 01:15 06/19/25 01:16 Temperature Pulse Rate 71 75 76 Respiratory Rate 19 18 19 Blood Pressure 108/58 L 103/62 Pulse Oximetry Oxygen Delivery Oxygen Flow Rate Fraction of Inspired Oxygen 06/19/25 01:21 06/19/25 01:26 06/19/25 01:30 Temperature Pulse Rate 73 74 74 Respiratory Rate 17 15 22 H Blood Pressure 104/59 L 105/60 Pulse Oximetry Oxygen Delivery Oxygen Flow Rate Fraction of Inspired Oxygen 06/19/25 01:31 06/19/25 01:36 06/19/25 01:41 Temperature Pulse Rate 70 73 71 Respiratory Rate 15 20 24 H Blood Pressure 105/60 104/62 101/58 L Pulse Oximetry Oxygen Delivery Oxygen Flow Rate Fraction of Inspired Oxygen 06/19/25 01:45 06/19/25 01:46 06/19/25 01:51 Temperature Pulse Rate 69 70 71 Respiratory Rate 15 10 L 19 Blood Pressure 105/57 L 107/59 L Pulse Oximetry Oxygen Delivery Oxygen Flow Rate Fraction of Inspired Oxygen 06/19/25 01:56 06/19/25 02:00 06/19/25 02:01 Temperature Pulse Rate 70 72 76 Respiratory Rate 18 15 16 Blood Pressure 110/62 108/63 Pulse Oximetry Oxygen Delivery Oxygen Flow Rate Fraction of Inspired Oxygen 06/19/25 02:06 06/19/25 02:07 06/19/25 02:11 Temperature Pulse Rate 85 90 Respiratory Rate 19 20 Blood Pressure 130/73 Pulse Oximetry 84 L 85 L 99 Oxygen Delivery Non-Rebreather Mask Oxygen Flow Rate 15 Fraction of Inspired Oxygen 06/19/25 02:11 06/19/25 02:15 06/19/25 02:16 Temperature Pulse Rate 91 90 90 Respiratory Rate 20 21 H 21 H Blood Pressure 151/76 H 148/99 H Pulse Oximetry 99 100 100 Oxygen Delivery Oxygen Flow Rate Fraction of Inspired Oxygen 06/19/25 02:21 06/19/25 02:26 06/19/25 02:30 Temperature Pulse Rate 93 93 93 Respiratory Rate 22 H 22 H 25 H Blood Pressure 139/64 134/98 H Pulse Oximetry 100 100 100 Oxygen Delivery Oxygen Flow Rate Fraction of Inspired Oxygen 06/19/25 02:31 06/19/25 02:36 06/19/25 02:41 Temperature Pulse Rate 90 88 92 Respiratory Rate 30 H 21 H 19 Blood Pressure 138/67 132/65 137/60 Pulse Oximetry 100 93 93 Oxygen Delivery Oxygen Flow Rate Fraction of Inspired Oxygen 06/19/25 02:45 06/19/25 02:46 06/19/25 02:51 Temperature Pulse Rate 89 88 89 Respiratory Rate 22 H 22 H 21 H Blood Pressure 129/67 133/69 Pulse Oximetry 93 94 92 Oxygen Delivery Oxygen Flow Rate Fraction of Inspired Oxygen 06/19/25 03:15 06/19/25 03:16 06/19/25 03:30 Temperature Pulse Rate 87 Respiratory Rate 23 H Blood Pressure 145/75 H Pulse Oximetry 90 90 90 Oxygen Delivery Oxygen Flow Rate Fraction of Inspired Oxygen 06/19/25 03:34 06/19/25 03:36 06/19/25 03:41 Temperature Pulse Rate 90 91 92 Respiratory Rate 23 H 24 H 21 H Blood Pressure 108/70 108/60 110/61 Pulse Oximetry 91 90 90 Oxygen Delivery Oxygen Flow Rate Fraction of Inspired Oxygen 06/19/25 03:45 06/19/25 03:46 06/19/25 03:51 Temperature Pulse Rate 93 91 90 Respiratory Rate 21 H 23 H 23 H Blood Pressure 118/66 111/63 Pulse Oximetry 90 91 89 L Oxygen Delivery Oxygen Flow Rate Fraction of Inspired Oxygen 06/19/25 03:56 06/19/25 04:00 06/19/25 04:01 Temperature Pulse Rate 89 89 90 Respiratory Rate 17 24 H 23 H Blood Pressure 109/67 110/61 Pulse Oximetry 90 89 L 90 Oxygen Delivery Oxygen Flow Rate Fraction of Inspired Oxygen 06/19/25 04:06 06/19/25 04:11 06/19/25 04:15 Temperature Pulse Rate 88 85 90 Respiratory Rate 22 H 16 20 Blood Pressure 113/61 111/59 L Pulse Oximetry 89 L 85 L 86 L Oxygen Delivery Oxygen Flow Rate Fraction of Inspired Oxygen 06/19/25 04:16 06/19/25 04:21 06/19/25 04:26 Temperature Pulse Rate 85 81 83 Respiratory Rate 21 H 19 18 Blood Pressure 116/62 104/58 L 103/59 L Pulse Oximetry 84 L 88 L 88 L Oxygen Delivery Oxygen Flow Rate Fraction of Inspired Oxygen 06/19/25 04:30 06/19/25 04:31 06/19/25 04:36 Temperature Pulse Rate 84 88 84 Respiratory Rate 18 21 H 23 H Blood Pressure 102/60 105/60 Pulse Oximetry 89 L 88 L 89 L Oxygen Delivery Oxygen Flow Rate Fraction of Inspired Oxygen 06/19/25 04:41 06/19/25 04:45 06/19/25 04:46 Temperature Pulse Rate 80 80 74 Respiratory Rate 19 25 H 19 Blood Pressure 103/57 L 97/59 L Pulse Oximetry 88 L 89 L 89 L Oxygen Delivery Oxygen Flow Rate Fraction of Inspired Oxygen 06/19/25 04:51 06/19/25 04:56 06/19/25 05:00 Temperature Pulse Rate 80 80 79 Respiratory Rate 25 H 23 H 22 H Blood Pressure 103/58 L 99/54 L Pulse Oximetry 88 L 88 L 88 L Oxygen Delivery Oxygen Flow Rate Fraction of Inspired Oxygen 06/19/25 05:01 06/19/25 05:06 06/19/25 05:11 Temperature Pulse Rate 78 78 84 Respiratory Rate 22 H 25 H 22 H Blood Pressure 98/58 L 102/56 L 115/66 Pulse Oximetry 88 L 88 L 86 L Oxygen Delivery Oxygen Flow Rate Fraction of Inspired Oxygen 06/19/25 05:15 06/19/25 05:16 06/19/25 05:21 Temperature Pulse Rate 82 80 79 Respiratory Rate 25 H 25 H 26 H Blood Pressure 112/59 L 101/58 L Pulse Oximetry 84 L 84 L 84 L Oxygen Delivery Oxygen Flow Rate Fraction of Inspired Oxygen 06/19/25 05:26 06/19/25 05:30 06/19/25 05:31 Temperature Pulse Rate 77 75 74 Respiratory Rate 21 H 21 H 20 Blood Pressure 100/59 L 101/59 L Pulse Oximetry 89 L 89 L 88 L Oxygen Delivery Oxygen Flow Rate Fraction of Inspired Oxygen 06/19/25 05:36 06/19/25 05:41 06/19/25 05:45 Temperature Pulse Rate 77 78 78 Respiratory Rate 24 H 18 24 H Blood Pressure 110/58 L 108/58 L Pulse Oximetry 86 L 89 L 90 Oxygen Delivery Oxygen Flow Rate Fraction of Inspired Oxygen 06/19/25 05:46 06/19/25 05:51 06/19/25 05:56 Temperature Pulse Rate 76 77 78 Respiratory Rate 21 H 24 H 24 H Blood Pressure 105/59 L 106/58 L 102/64 Pulse Oximetry 92 88 L 88 L Oxygen Delivery Oxygen Flow Rate Fraction of Inspired Oxygen 06/19/25 06:00 06/19/25 06:01 06/19/25 06:06 Temperature Pulse Rate 78 77 87 Respiratory Rate 26 H 26 H 23 H Blood Pressure 107/62 104/61 Pulse Oximetry 89 L 89 L 88 L Oxygen Delivery Oxygen Flow Rate Fraction of Inspired Oxygen 06/19/25 06:10 06/19/25 06:15 06/19/25 06:16 Temperature Pulse Rate 92 98 99 Respiratory Rate 19 29 H 23 H Blood Pressure 125/80 127/55 L Pulse Oximetry 85 L 82 L 84 L Oxygen Delivery Oxygen Flow Rate Fraction of Inspired Oxygen 06/19/25 06:21 06/19/25 06:26 06/19/25 06:27 Temperature Pulse Rate 99 97 99 Respiratory Rate 24 H 28 H 28 H Blood Pressure 140/74 140/71 Pulse Oximetry 94 96 97 Oxygen Delivery Oxygen Flow Rate Fraction of Inspired Oxygen 06/19/25 06:30 06/19/25 06:31 06/19/25 06:36 Temperature Pulse Rate 100 96 98 Respiratory Rate 28 H 28 H 24 H Blood Pressure 136/76 134/67 Pulse Oximetry 97 95 85 L Oxygen Delivery Oxygen Flow Rate Fraction of Inspired Oxygen 06/19/25 06:41 06/19/25 06:45 06/19/25 06:46 Temperature Pulse Rate 98 100 Respiratory Rate 21 H 24 H Blood Pressure 133/67 Pulse Oximetry 85 L 94 95 Oxygen Delivery High Flow Therapy with Na Oxygen Flow Rate 55 Fraction of Inspired Oxygen 90 06/19/25 06:46 06/19/25 06:51 06/19/25 07:00 Temperature Pulse Rate 101 H 100 97 Respiratory Rate 24 H 25 H 24 H Blood Pressure 129/61 139/66 Pulse Oximetry 96 97 98 Oxygen Delivery Oxygen Flow Rate Fraction of Inspired Oxygen 06/19/25 07:01 06/19/25 07:06 06/19/25 07:11 Temperature Pulse Rate 97 96 95 Respiratory Rate 18 26 H 24 H Blood Pressure 122/71 110/61 121/64 Pulse Oximetry 98 100 100 Oxygen Delivery Oxygen Flow Rate Fraction of Inspired Oxygen 06/19/25 07:15 06/19/25 07:16 06/19/25 07:17 Temperature Pulse Rate 90 89 88 Respiratory Rate 25 H 19 22 H Blood Pressure 115/62 Pulse Oximetry 100 100 100 Oxygen Delivery Oxygen Flow Rate Fraction of Inspired Oxygen 06/19/25 07:21 06/19/25 07:26 06/19/25 07:30 Temperature Pulse Rate 87 84 87 Respiratory Rate 22 H 26 H 23 H Blood Pressure 117/67 112/60 Pulse Oximetry 100 100 100 Oxygen Delivery Oxygen Flow Rate Fraction of Inspired Oxygen 06/19/25 07:31 06/19/25 07:31 06/19/25 07:36 Temperature Pulse Rate 83 88 Respiratory Rate 27 H 24 H Blood Pressure 114/60 119/63 Pulse Oximetry 100 100 Oxygen Delivery Room Air Oxygen Flow Rate Fraction of Inspired Oxygen 06/19/25 07:41 06/19/25 07:45 06/19/25 07:46 Temperature Pulse Rate 82 83 82 Respiratory Rate 28 H 26 H 24 H Blood Pressure 110/61 108/60 Pulse Oximetry 100 100 100 Oxygen Delivery Oxygen Flow Rate Fraction of Inspired Oxygen 06/19/25 07:51 06/19/25 07:56 06/19/25 07:57 Temperature Pulse Rate 79 81 Respiratory Rate 25 H 26 H Blood Pressure 106/58 L 106/58 L Pulse Oximetry 100 100 97 Oxygen Delivery High Flow Therapy with Na Oxygen Flow Rate 55 Fraction of Inspired Oxygen 55 06/19/25 08:00 06/19/25 08:01 06/19/25 08:06 Temperature Pulse Rate 80 85 92 Respiratory Rate 27 H 22 H 31 H Blood Pressure 102/61 125/63 Pulse Oximetry 96 98 93 Oxygen Delivery Oxygen Flow Rate Fraction of Inspired Oxygen 06/19/25 08:11 06/19/25 08:15 06/19/25 08:16 Temperature Pulse Rate 85 93 87 Respiratory Rate 32 H 31 H 34 H Blood Pressure 116/56 L 129/65 Pulse Oximetry 93 91 90 Oxygen Delivery Oxygen Flow Rate Fraction of Inspired Oxygen 06/19/25 08:17 06/19/25 08:21 06/19/25 08:25 Temperature Pulse Rate 86 92 Respiratory Rate 29 H 24 H Blood Pressure 103/61 118/68 Pulse Oximetry 90 93 92 Oxygen Delivery High Flow Therapy with Na Oxygen Flow Rate 55 Fraction of Inspired Oxygen 06/19/25 08:30 06/19/25 08:31 06/19/25 08:36 Temperature Pulse Rate 86 91 89 Respiratory Rate 31 H 21 H 24 H Blood Pressure 109/57 L 117/58 L Pulse Oximetry 91 92 92 Oxygen Delivery Oxygen Flow Rate Fraction of Inspired Oxygen 06/19/25 08:41 06/19/25 08:45 06/19/25 08:46 Temperature Pulse Rate 86 87 84 Respiratory Rate 30 H 29 H 25 H Blood Pressure 120/65 112/56 L Pulse Oximetry 91 92 92 Oxygen Delivery Oxygen Flow Rate Fraction of Inspired Oxygen 06/19/25 08:51 06/19/25 08:56 06/19/25 09:00 Temperature Pulse Rate 82 88 96 Respiratory Rate 28 H 29 H 26 H Blood Pressure 106/55 L 112/54 L 125/65 Pulse Oximetry 93 94 89 L Oxygen Delivery Oxygen Flow Rate Fraction of Inspired Oxygen 06/19/25 09:01 06/19/25 09:06 06/19/25 09:11 Temperature Pulse Rate 100 97 88 Respiratory Rate 24 H 25 H 27 H Blood Pressure 120/66 114/58 L Pulse Oximetry 90 92 94 Oxygen Delivery Oxygen Flow Rate Fraction of Inspired Oxygen 06/19/25 09:15 06/19/25 09:16 06/19/25 09:26 Temperature Pulse Rate 83 83 85 Respiratory Rate 28 H 25 H 28 H Blood Pressure 107/55 L 110/59 L Pulse Oximetry 95 95 95 Oxygen Delivery Oxygen Flow Rate Fraction of Inspired Oxygen 06/19/25 09:30 06/19/25 09:31 06/19/25 09:36 Temperature Pulse Rate 92 91 91 Respiratory Rate 19 24 H 23 H Blood Pressure 115/66 116/63 Pulse Oximetry 94 94 95 Oxygen Delivery Oxygen Flow Rate Fraction of Inspired Oxygen 06/19/25 09:41 06/19/25 09:42 06/19/25 09:45 Temperature Pulse Rate 101 H 102 H 102 H Respiratory Rate 22 H 30 H 29 H Blood Pressure 145/78 H Pulse Oximetry 90 93 93 Oxygen Delivery Oxygen Flow Rate Fraction of Inspired Oxygen 06/19/25 09:46 06/19/25 09:47 06/19/25 09:51 Temperature Pulse Rate 102 H 100 Respiratory Rate 26 H 27 H Blood Pressure 127/55 L 125/53 L Pulse Oximetry 93 94 93 Oxygen Delivery Oxymizer Oxygen Flow Rate 55 Fraction of Inspired Oxygen 74 06/19/25 09:53 06/19/25 09:56 06/19/25 10:00 Temperature Pulse Rate 98 97 Respiratory Rate 16 27 H Blood Pressure 116/50 L Pulse Oximetry 94 93 91 Oxygen Delivery High Flow Therapy with Na Oxygen Flow Rate 55 Fraction of Inspired Oxygen 8 06/19/25 10:01 06/19/25 10:06 06/19/25 10:11 Temperature Pulse Rate 98 96 93 Respiratory Rate 21 H 23 H 20 Blood Pressure 115/48 L 110/49 L 100/49 L Pulse Oximetry 91 93 96 Oxygen Delivery Oxygen Flow Rate Fraction of Inspired Oxygen 06/19/25 10:15 06/19/25 10:16 06/19/25 10:21 Temperature Pulse Rate 104 H 101 H 95 Respiratory Rate 30 H 28 H 25 H Blood Pressure 135/58 L 117/54 L Pulse Oximetry 94 92 95 Oxygen Delivery Oxygen Flow Rate Fraction of Inspired Oxygen 06/19/25 10:25 06/19/25 10:30 06/19/25 10:31 Temperature Pulse Rate 101 H 101 H 97 Respiratory Rate 31 H 28 H 29 H Blood Pressure 129/60 128/56 L Pulse Oximetry 92 93 94 Oxygen Delivery Oxygen Flow Rate Fraction of Inspired Oxygen 06/19/25 10:36 06/19/25 10:41 06/19/25 10:45 Temperature Pulse Rate 95 93 97 Respiratory Rate 29 H 22 H 28 H Blood Pressure 112/60 113/53 L Pulse Oximetry 96 97 97 Oxygen Delivery Oxygen Flow Rate Fraction of Inspired Oxygen 06/19/25 10:46 06/19/25 11:01 06/19/25 11:06 Temperature Pulse Rate 95 101 H 102 H Respiratory Rate 30 H 25 H 22 H Blood Pressure 115/59 L 130/64 131/62 Pulse Oximetry 98 94 96 Oxygen Delivery Oxygen Flow Rate Fraction of Inspired Oxygen 06/19/25 11:10 06/19/25 11:15 06/19/25 11:20 Temperature Pulse Rate 105 H 103 H 107 H Respiratory Rate 29 H 30 H 30 H Blood Pressure 131/103 H 136/70 143/66 H Pulse Oximetry 92 94 94 Oxygen Delivery Oxygen Flow Rate Fraction of Inspired Oxygen 06/19/25 11:26 06/19/25 11:30 06/19/25 11:35 Temperature Pulse Rate 100 105 H 112 H Respiratory Rate 21 H 24 H 26 H Blood Pressure 130/63 137/70 148/74 H Pulse Oximetry 94 93 90 Oxygen Delivery Oxygen Flow Rate Fraction of Inspired Oxygen 06/19/25 11:41 06/19/25 11:45 06/19/25 11:46 Temperature Pulse Rate 104 H 103 H 102 H Respiratory Rate 26 H 21 H 11 L Blood Pressure 139/67 116/94 H Pulse Oximetry 92 94 95 Oxygen Delivery Oxygen Flow Rate Fraction of Inspired Oxygen 06/19/25 11:50 06/19/25 11:55 06/19/25 12:00 Temperature Pulse Rate 100 100 104 H Respiratory Rate 30 H 26 H 30 H Blood Pressure 131/65 128/66 139/69 Pulse Oximetry 97 96 91 Oxygen Delivery Oxygen Flow Rate Fraction of Inspired Oxygen 06/19/25 12:06 06/19/25 12:11 06/19/25 12:15 Temperature Pulse Rate 99 98 100 Respiratory Rate 24 H 26 H 34 H Blood Pressure 135/64 130/76 134/62 Pulse Oximetry 95 97 93 Oxygen Delivery Oxygen Flow Rate Fraction of Inspired Oxygen 06/19/25 12:21 06/19/25 12:26 06/19/25 12:30 Temperature Pulse Rate 96 104 H 112 H Respiratory Rate 25 H 24 H 33 H Blood Pressure 124/60 153/72 H Pulse Oximetry 96 90 89 L Oxygen Delivery Oxygen Flow Rate Fraction of Inspired Oxygen 06/19/25 12:31 06/19/25 12:36 06/19/25 12:40 Temperature Pulse Rate 108 H 106 H 110 H Respiratory Rate 28 H 31 H 33 H Blood Pressure 141/59 H 123/58 L 137/75 Pulse Oximetry 92 92 90 Oxygen Delivery Oxygen Flow Rate Fraction of Inspired Oxygen 06/19/25 12:45 06/19/25 12:50 06/19/25 12:56 Temperature Pulse Rate 112 H 113 H 112 H Respiratory Rate 33 H 30 H 34 H Blood Pressure 141/72 H 141/66 H 143/67 H Pulse Oximetry 91 93 92 Oxygen Delivery Oxygen Flow Rate Fraction of Inspired Oxygen 06/19/25 13:01 06/19/25 13:05 06/19/25 13:10 Temperature Pulse Rate 112 H 113 H 110 H Respiratory Rate 35 H 37 H 29 H Blood Pressure 137/68 139/69 137/67 Pulse Oximetry 94 91 93 Oxygen Delivery Oxygen Flow Rate Fraction of Inspired Oxygen 06/19/25 13:15 06/19/25 13:16 06/19/25 13:21 Temperature Pulse Rate 106 H 104 H 102 H Respiratory Rate 34 H 35 H 33 H Blood Pressure 124/75 130/62 Pulse Oximetry 97 98 98 Oxygen Delivery Oxygen Flow Rate Fraction of Inspired Oxygen 06/19/25 13:25 06/19/25 13:30 06/19/25 13:36 Temperature Pulse Rate 112 H 108 H 104 H Respiratory Rate 31 H 33 H 29 H Blood Pressure 147/72 H 138/67 131/61 Pulse Oximetry 91 95 97 Oxygen Delivery Oxygen Flow Rate Fraction of Inspired Oxygen 06/19/25 13:40 06/19/25 13:45 06/19/25 13:50 Temperature Pulse Rate 105 H 106 H 111 H Respiratory Rate 36 H 26 H 32 H Blood Pressure 137/70 141/70 H 148/67 H Pulse Oximetry 93 97 91 Oxygen Delivery Oxygen Flow Rate Fraction of Inspired Oxygen 06/19/25 13:56 06/19/25 14:01 06/19/25 14:06 Temperature Pulse Rate 103 H 101 H 103 H Respiratory Rate 28 H 28 H 37 H Blood Pressure 131/58 L 132/62 128/64 Pulse Oximetry 98 99 99 Oxygen Delivery Oxygen Flow Rate Fraction of Inspired Oxygen 06/19/25 14:11 06/19/25 14:16 06/19/25 14:21 Temperature Pulse Rate 101 H 100 103 H Respiratory Rate 27 H 27 H 27 H Blood Pressure 136/67 142/65 H 140/68 Pulse Oximetry 98 98 95 Oxygen Delivery Oxygen Flow Rate Fraction of Inspired Oxygen 06/19/25 14:26 06/19/25 14:31 06/19/25 14:36 Temperature Pulse Rate 100 107 H 100 Respiratory Rate 31 H 25 H 30 H Blood Pressure 132/68 154/71 H 128/70 Pulse Oximetry 98 91 99 Oxygen Delivery Oxygen Flow Rate Fraction of Inspired Oxygen 06/19/25 14:41 06/19/25 14:45 06/19/25 14:50 Temperature Pulse Rate 101 H 101 H 106 H Respiratory Rate 28 H 33 H 36 H Blood Pressure 137/65 139/69 161/73 H Pulse Oximetry 99 95 91 Oxygen Delivery Oxygen Flow Rate Fraction of Inspired Oxygen 06/19/25 14:56 06/19/25 15:00 06/19/25 15:01 Temperature Pulse Rate 109 H 106 H 105 H Respiratory Rate 28 H 32 H 32 H Blood Pressure 149/68 H 143/69 H Pulse Oximetry 91 Oxygen Delivery Oxygen Flow Rate Fraction of Inspired Oxygen 06/19/25 15:06 06/19/25 15:10 06/19/25 15:15 Temperature Pulse Rate 110 H 113 H 112 H Respiratory Rate 31 H 26 H 29 H Blood Pressure 146/68 H 154/77 H Pulse Oximetry 91 89 L Oxygen Delivery Oxygen Flow Rate Fraction of Inspired Oxygen 06/19/25 15:16 06/19/25 15:21 06/19/25 15:25 Temperature Pulse Rate 117 H 116 H 110 H Respiratory Rate 32 H 36 H 29 H Blood Pressure 155/73 H 148/76 H 148/70 H Pulse Oximetry 92 88 L 92 Oxygen Delivery Oxygen Flow Rate Fraction of Inspired Oxygen 06/19/25 15:31 06/19/25 15:36 06/19/25 15:40 Temperature Pulse Rate 106 H 104 H 103 H Respiratory Rate 31 H 27 H 33 H Blood Pressure 145/68 H 140/71 138/71 Pulse Oximetry 97 99 98 Oxygen Delivery Oxygen Flow Rate Fraction of Inspired Oxygen 06/19/25 15:46 06/19/25 15:50 06/19/25 15:56 Temperature Pulse Rate 107 H 105 H 108 H Respiratory Rate 23 H 27 H 35 H Blood Pressure 136/68 138/67 142/72 H Pulse Oximetry 98 93 92 Oxygen Delivery Oxygen Flow Rate Fraction of Inspired Oxygen 06/19/25 16:00 06/19/25 16:05 06/19/25 16:11 Temperature Pulse Rate 115 H 118 H 119 H Respiratory Rate 42 H 28 H 26 H Blood Pressure 153/78 H 158/81 H 158/84 H Pulse Oximetry 91 92 91 Oxygen Delivery Oxygen Flow Rate Fraction of Inspired Oxygen 06/19/25 16:15 06/19/25 16:16 06/19/25 16:21 Temperature Pulse Rate 120 H 120 H 122 H Respiratory Rate 29 H 25 H 31 H Blood Pressure 155/72 H 156/73 H Pulse Oximetry 86 L 87 L 84 L Oxygen Delivery Oxygen Flow Rate Fraction of Inspired Oxygen 06/19/25 16:25 06/19/25 16:30 06/19/25 16:30 Temperature Pulse Rate 122 H 122 H Respiratory Rate 36 H 29 H Blood Pressure 165/75 H Pulse Oximetry 89 L 92 90 Oxygen Delivery High Flow Therapy with Na Oxygen Flow Rate 60 Fraction of Inspired Oxygen 100 06/19/25 16:31 06/19/25 17:27 06/19/25 17:46 Temperature 99.1 F Pulse Rate 122 H 128 H Respiratory Rate 23 H 44 H Blood Pressure 158/72 H 156/77 H Pulse Oximetry 89 L 91 91 Oxygen Delivery High Flow Therapy with Na Oxygen Flow Rate 60 Fraction of Inspired Oxygen 90 06/19/25 17:53 Temperature Pulse Rate Respiratory Rate Blood Pressure Pulse Oximetry Oxygen Delivery High Flow Therapy with Na Oxygen Flow Rate 60 Fraction of Inspired Oxygen Exam Narrative: General: alert and comfortable , on HFNC oxygen Eyes: EOMI, PERRLA ENNT External ears normal, Neck is supple, no masses, Respiratory systems: Clear to auscultation Cardiovascular S1, S2, normal rhythm, no murmur, rub, or gallop; no thrill or palpable murmurs on palpation. Gastrointestinal: soft, non-tender, and non-distended abdomen with no masses; BS present Skin: no rash, lesions, ulcerations, subcutaneous nodules or induration Musculoskeletal: no abnormality and no tenderness, normal ROM Neurologic: Alert and oriented x3, non focal Mental Status Exam: normal affect H&P: Results Labs Labs: Short CBC 06/18/25 Range/Units 23:25 WBC 17.1 H (4.5-10.0) K/mm3 Hgb 7.7 L (12.0-15.0) g/dL Hct 24.4 L (37.0-47.0) % Plt Count 175 (150-375) k/mm3 BMP 06/18/25 23:24 Sodium 135 L Potassium 4.3 Chloride 111 H Carbon Dioxide 19 L BUN 31 H Creatinine 0.89 Glucose 146 H Calcium 8.0 L Liver Function 06/18/25 Range/Units 23:24 Total Bilirubin 0.3 (0.2-1.3) mg/dL AST 48 H (14-36) U/L ALT 37 H (6-35) U/L Alkaline Phosphatase 67 (38-126) U/L Albumin 2.6 L (3.5-5.1) g/dL Urine 06/19/25 Range/Units 03:09 Urine Color Yellow (Yellow) Urine Appearance Cloudy H (Clear) Urine pH 6.0 (5.0-9.0) Ur Specific [place] 1.018 (1.001-1.035) Urine Protein 1+ H (Negative) mg/dL Urine Glucose (UA) 2+ H (Negative) mg/dL Assessment and Plan Assessment and plan (1) Pulmonary edema: Code(s): J81.1 - Chronic pulmonary edema Status: Acute Plan Acute hypoxemic respiratory failure Pulm edema Type 2 diabetes mellitus with hyperglycemia (E11.65) Essential hypertension (I10) Congestive heart failure (I50.9) Hyperlipidemia (E78.5) Generalized anxiety disorder (F41.1) Bilateral leg pain (M79.604, M79.605) Depression (F32.A) History of non-STEMI, osteoarthritis, venous insufficiency, fibromyalgia Colitis (K52.9) Patient transitioned to Comfort care per her wishes, discussed with as well Contineu IV Morphine, Diazepam, Tylenol, Atropine animal care taker consulted Hospitalist MIPS Advance Care Plan I have confirmed that the patient's Advanced Care Plan is present, code status is documented, or surrogate decision maker is listed in patient medical record.: Yes Medication Reconciliation I have utilized all available resources to obtain, update and review the patients current medications (includes all prescriptions, OTC, herbals, cannabis, and nutritional supplements).: Yes
--- NOTE | 2025-06-19 18:34 | PC.NURSE ---
Pt brought up to the floor from ED by respiratory and ED pct. Patient is maxed out on Airvo and still struggling to breath. Patient stated why is Cecy doing this to me why wont cecy just let me rest I don't want to do this anymore. Patient was able to answer all orientation questions appropriately. Code status in chart is DNR. Spoke with patient and confirmed code status. Spoke with patient and asked if patient would like to be intubated to which patient stated no. Heart rate elevated, respiratory rate elevated. Maria Dolores Moscoso was called and asked to come to room to evaluate patient. Maria Dolores Moscoso spoke with patient and patient stated what her wishes were. Comfort orders placed. Admission and med rec completed to the best of my abilities due to patient's respiratory status.
[2025-06-19] MEDS: MORPHINE SULFATE (*CRX) 4 MG/ML INJ 2 MG IV PUSH ×4 (19:20→22:45)
--- NOTE | 2025-06-19 19:46 | PC.NURSE ---
Requested IV medication for anxiety; order received to make current diazepam order IV and to give for anxiety as well. Patient is medical comfort measures.
--- NOTE | 2025-06-19 20:13 | PC.NURSE ---
Spoke with family and patient and offered nasal cannula vs airvo. Pt states she does not wants anything in her nose. Then gave patient requested diazepam. Spoke with family that airvo will prolong things and I could place a nonrebreather on pt instead. Family considering.
[2025-06-19] MEDS: diazePAM INJ (*CRX) 10 MG/2 ML SYRINGE 5 MG IV PUSH ×3 (20:17→22:45)
--- NOTE | 2025-06-19 22:30 | PC.NURSE ---
2119 This nurse asked again if this nurse could remove airvo and place on nonrebreather. Patient refuses at this time. Maria Dolores Moscoso DIE CAST OPERATOR aware and states I told her she can do whatever makes her comfortable
--- NOTE | 2025-06-19 22:59 | PC.NURSE ---
Spoke with Maria Dolores Moscoso HEALTH INFORMATION TECHNICIAN-patient requiring frequent morphine pushes due to pain, last pain rating was 6. This nurse asked if morphine drip was possible and order was received for 4mh morphine per hour. Patient still alert and oriented and refusing to have airvo removed. Current RR 36 and 88% on 60L 90%.
[2025-06-19] MEDS: MORPHINE 50 MG/NS 100ML (*CRX) 50 MG/100 ML BAG 8 MG IV CONT (23:32)
[2025-06-20] VITALS (11 sets, daily range): BP systolic 137; BP diastolic 87; PULSE 100–122; RESP 20–28; TEMP 36.6; O2SAT 60–89
[2025-06-20] MEDS: diazePAM INJ (*CRX) 10 MG/2 ML SYRINGE 5 MG IV PUSH ×3 (03:50→09:18)
--- NOTE | 2025-06-20 09:48 | PC.NURSE ---
This patient, Aggie Donald, was transferred to [facility] on 06/20/25 at 0937. Personal belongings sent with patient. Report given to Teresa. Appropriate documentation sent with patient. Pt's called and notified of new room number.
[2025-06-20] MEDS: MORPHINE 50 MG/NS 100ML (*CRX) 50 MG/100 ML BAG 8 MG IV CONT (10:41)
[2025-06-20] MEDS: MORPHINE SULFATE (*CRX) 4 MG/ML INJ 2 MG IV PUSH (11:31)
--- NOTE | 2025-06-20 11:52 | P.PNIM_ITS ---
Progress Note: A&P Assessment and Plan (1) Pulmonary edema: Code(s): J81.1 - Chronic pulmonary edema Status: Acute Plan * Acute hypoxemic respiratory failure * Pulm edema * Type 2 diabetes mellitus with hyperglycemia (E11.65) * Essential hypertension (I10) * Congestive heart failure (I50.9) * Hyperlipidemia (E78.5) * Generalized anxiety disorder (F41.1) * Bilateral leg pain (M79.604, M79.605) * Depression (F32.A) * History of non-STEMI, osteoarthritis, venous insufficiency, fibromyalgia * Colitis (K52.9) Continue comfort care Contineu IV Morphine, Diazepam, Tylenol, Atropine manager career consulted for hospice eval Subjective Date/time seen: 06/20/25 11:52 Interval history: COmfortable at bedside Review of Systems Review of Systems: Patient was noncommittal uncooperative unable to do review of systems a. Exam Narrative: General: alert and comfortable , on HFNC oxygen Eyes: EOMI, PERRLA ENNT External ears normal, Neck is supple, no masses, Respiratory systems: Clear to auscultation Cardiovascular S1, S2, normal rhythm, no murmur, rub, or gallop; no thrill or palpable murmurs on palpation. Gastrointestinal: soft, non-tender, and non-distended abdomen with no masses; BS present Skin: no rash, lesions, ulcerations, subcutaneous nodules or induration Musculoskeletal: no abnormality and no tenderness, normal ROM Neurologic: Alert and oriented x3, non focal Mental Status Exam: normal affect Objective Data Vital Signs Vital Signs: Vital Signs - 24 hr 06/19/25 11:55 06/19/25 12:00 06/19/25 12:06 Temperature Pulse Rate 100 104 H 99 Respiratory Rate 26 H 30 H 24 H Blood Pressure 128/66 139/69 135/64 Pulse Oximetry 96 91 95 Oxygen Delivery Oxygen Flow Rate Fraction of Inspired Oxygen 06/19/25 12:11 06/19/25 12:15 06/19/25 12:21 Temperature Pulse Rate 98 100 96 Respiratory Rate 26 H 34 H 25 H Blood Pressure 130/76 134/62 124/60 Pulse Oximetry 97 93 96 Oxygen Delivery Oxygen Flow Rate Fraction of Inspired Oxygen 06/19/25 12:26 06/19/25 12:30 06/19/25 12:31 Temperature Pulse Rate 104 H 112 H 108 H Respiratory Rate 24 H 33 H 28 H Blood Pressure 153/72 H 141/59 H Pulse Oximetry 90 89 L 92 Oxygen Delivery Oxygen Flow Rate Fraction of Inspired Oxygen 06/19/25 12:36 06/19/25 12:40 06/19/25 12:45 Temperature Pulse Rate 106 H 110 H 112 H Respiratory Rate 31 H 33 H 33 H Blood Pressure 123/58 L 137/75 141/72 H Pulse Oximetry 92 90 91 Oxygen Delivery Oxygen Flow Rate Fraction of Inspired Oxygen 06/19/25 12:50 06/19/25 12:56 06/19/25 13:01 Temperature Pulse Rate 113 H 112 H 112 H Respiratory Rate 30 H 34 H 35 H Blood Pressure 141/66 H 143/67 H 137/68 Pulse Oximetry 93 92 94 Oxygen Delivery Oxygen Flow Rate Fraction of Inspired Oxygen 06/19/25 13:05 06/19/25 13:10 06/19/25 13:15 Temperature Pulse Rate 113 H 110 H 106 H Respiratory Rate 37 H 29 H 34 H Blood Pressure 139/69 137/67 Pulse Oximetry 91 93 97 Oxygen Delivery Oxygen Flow Rate Fraction of Inspired Oxygen 06/19/25 13:16 06/19/25 13:21 06/19/25 13:25 Temperature Pulse Rate 104 H 102 H 112 H Respiratory Rate 35 H 33 H 31 H Blood Pressure 124/75 130/62 147/72 H Pulse Oximetry 98 98 91 Oxygen Delivery Oxygen Flow Rate Fraction of Inspired Oxygen 06/19/25 13:30 06/19/25 13:36 06/19/25 13:40 Temperature Pulse Rate 108 H 104 H 105 H Respiratory Rate 33 H 29 H 36 H Blood Pressure 138/67 131/61 137/70 Pulse Oximetry 95 97 93 Oxygen Delivery Oxygen Flow Rate Fraction of Inspired Oxygen 06/19/25 13:45 06/19/25 13:50 06/19/25 13:56 Temperature Pulse Rate 106 H 111 H 103 H Respiratory Rate 26 H 32 H 28 H Blood Pressure 141/70 H 148/67 H 131/58 L Pulse Oximetry 97 91 98 Oxygen Delivery Oxygen Flow Rate Fraction of Inspired Oxygen 06/19/25 14:01 06/19/25 14:06 06/19/25 14:11 Temperature Pulse Rate 101 H 103 H 101 H Respiratory Rate 28 H 37 H 27 H Blood Pressure 132/62 128/64 136/67 Pulse Oximetry 99 99 98 Oxygen Delivery Oxygen Flow Rate Fraction of Inspired Oxygen 06/19/25 14:16 06/19/25 14:21 06/19/25 14:26 Temperature Pulse Rate 100 103 H 100 Respiratory Rate 27 H 27 H 31 H Blood Pressure 142/65 H 140/68 132/68 Pulse Oximetry 98 95 98 Oxygen Delivery Oxygen Flow Rate Fraction of Inspired Oxygen 06/19/25 14:31 06/19/25 14:36 06/19/25 14:41 Temperature Pulse Rate 107 H 100 101 H Respiratory Rate 25 H 30 H 28 H Blood Pressure 154/71 H 128/70 137/65 Pulse Oximetry 91 99 99 Oxygen Delivery Oxygen Flow Rate Fraction of Inspired Oxygen 06/19/25 14:45 06/19/25 14:50 06/19/25 14:56 Temperature Pulse Rate 101 H 106 H 109 H Respiratory Rate 33 H 36 H 28 H Blood Pressure 139/69 161/73 H 149/68 H Pulse Oximetry 95 91 91 Oxygen Delivery Oxygen Flow Rate Fraction of Inspired Oxygen 06/19/25 15:00 06/19/25 15:01 06/19/25 15:06 Temperature Pulse Rate 106 H 105 H 110 H Respiratory Rate 32 H 32 H 31 H Blood Pressure 143/69 H 146/68 H Pulse Oximetry Oxygen Delivery Oxygen Flow Rate Fraction of Inspired Oxygen 06/19/25 15:10 06/19/25 15:15 06/19/25 15:16 Temperature Pulse Rate 113 H 112 H 117 H Respiratory Rate 26 H 29 H 32 H Blood Pressure 154/77 H 155/73 H Pulse Oximetry 91 89 L 92 Oxygen Delivery Oxygen Flow Rate Fraction of Inspired Oxygen 06/19/25 15:21 06/19/25 15:25 06/19/25 15:31 Temperature Pulse Rate 116 H 110 H 106 H Respiratory Rate 36 H 29 H 31 H Blood Pressure 148/76 H 148/70 H 145/68 H Pulse Oximetry 88 L 92 97 Oxygen Delivery Oxygen Flow Rate Fraction of Inspired Oxygen 06/19/25 15:36 06/19/25 15:40 06/19/25 15:46 Temperature Pulse Rate 104 H 103 H 107 H Respiratory Rate 27 H 33 H 23 H Blood Pressure 140/71 138/71 136/68 Pulse Oximetry 99 98 98 Oxygen Delivery Oxygen Flow Rate Fraction of Inspired Oxygen 06/19/25 15:50 06/19/25 15:56 06/19/25 16:00 Temperature Pulse Rate 105 H 108 H 115 H Respiratory Rate 27 H 35 H 42 H Blood Pressure 138/67 142/72 H 153/78 H Pulse Oximetry 93 92 91 Oxygen Delivery Oxygen Flow Rate Fraction of Inspired Oxygen 06/19/25 16:05 06/19/25 16:11 06/19/25 16:15 Temperature Pulse Rate 118 H 119 H 120 H Respiratory Rate 28 H 26 H 29 H Blood Pressure 158/81 H 158/84 H Pulse Oximetry 92 91 86 L Oxygen Delivery Oxygen Flow Rate Fraction of Inspired Oxygen 06/19/25 16:16 06/19/25 16:21 06/19/25 16:25 Temperature Pulse Rate 120 H 122 H 122 H Respiratory Rate 25 H 31 H 36 H Blood Pressure 155/72 H 156/73 H 165/75 H Pulse Oximetry 87 L 84 L 89 L Oxygen Delivery Oxygen Flow Rate Fraction of Inspired Oxygen 06/19/25 16:30 06/19/25 16:30 06/19/25 16:31 Temperature Pulse Rate 122 H 122 H Respiratory Rate 29 H 23 H Blood Pressure 158/72 H Pulse Oximetry 92 90 89 L Oxygen Delivery High Flow Therapy with Na Oxygen Flow Rate 60 Fraction of Inspired Oxygen 100 06/19/25 17:27 06/19/25 17:46 06/19/25 17:53 Temperature 99.1 F Pulse Rate 128 H Respiratory Rate 44 H Blood Pressure 156/77 H Pulse Oximetry 91 91 Oxygen Delivery High Flow Therapy with Na High Flow Therapy with Na Oxygen Flow Rate 60 60 Fraction of Inspired Oxygen 90 06/19/25 20:00 06/19/25 20:00 06/19/25 20:00 Temperature 98.4 F Pulse Rate 116 H 107 H Respiratory Rate 36 H Blood Pressure 129/60 Pulse Oximetry 89 L 89 L Oxygen Delivery High Flow Therapy with Na Oxygen Flow Rate 60 Fraction of Inspired Oxygen 90 06/19/25 22:00 06/19/25 22:00 06/19/25 22:49 Temperature Pulse Rate 97 113 H Respiratory Rate 36 H Blood Pressure Pulse Oximetry 88 L 88 L Oxygen Delivery High Flow Therapy with Na Oxygen Flow Rate 60 Fraction of Inspired Oxygen 90 06/19/25 23:32 06/20/25 00:30 06/20/25 00:30 Temperature Pulse Rate 97 100 100 Respiratory Rate 32 H 28 H 28 H Blood Pressure Pulse Oximetry 89 L Oxygen Delivery Oxygen Flow Rate Fraction of Inspired Oxygen 10/19/25 00:42 06/20/25 02:00 06/20/25 02:13 Temperature Pulse Rate 105 H Respiratory Rate 20 20 Blood Pressure Pulse Oximetry 89 L 67 L Oxygen Delivery High Flow Therapy with Na Oxygen Flow Rate 30 Fraction of Inspired Oxygen 30 06/20/25 04:00 06/20/25 04:05 06/20/25 04:05 Temperature Pulse Rate 113 H 113 H Respiratory Rate 28 H 28 H Blood Pressure Pulse Oximetry 65 L 65 L Oxygen Delivery Nasal Cannula Oxygen Flow Rate 2 Fraction of Inspired Oxygen 06/20/25 04:57 06/20/25 06:00 06/20/25 06:14 Temperature Pulse Rate 113 H 115 H 115 H Respiratory Rate 28 H 24 H 24 H Blood Pressure Pulse Oximetry 60 L 69 L Oxygen Delivery Oxygen Flow Rate Fraction of Inspired Oxygen 06/20/25 07:59 06/20/25 08:00 06/20/25 08:02 Temperature 97.8 F Pulse Rate 122 H Respiratory Rate 20 Blood Pressure 137/87 Pulse Oximetry 71 L 71 L Oxygen Delivery Nasal Cannula Nasal Cannula Oxygen Flow Rate 2 2 Fraction of Inspired Oxygen Intake/Output Intake/Output: Intake & Output 06/17/25 06/18/25 06/19/25 06/20/25 23:59 23:59 23:59 23:59 Intake Total 3950 389.2 Output Total 900 Balance 3950 -510.8 Meds/Results Medications: Active Medications Generic Name Dose Route Start Last Admin Trade Name Freq PRN Reason Stop Dose Admin Acetaminophen 650 mg 06/19/25 01:30 Acetaminophen 325 Mg Tablet PO Q4H PRN Mild Pain (1-3) or Fever Atropine Sulfate 1 - 2 drop 06/19/25 17:33 06/20/25 04:52 Atropine Sulfate 1% Ophth Soln 5 Ml Bottle SUBLINGUAL 1 drop Q4H PRN Administration Secretions Diazepam 5 mg 06/19/25 19:46 06/20/25 09:18 Diazepam Inj (*Crx) 10 Mg/2 Ml Syringe IV PUSH 5 mg Q1HR PRN Administration air hunger Morphine Sulfate 50 mg in 100 mls @ 8 mls/hr 06/19/25 23:00 06/20/25 10:41 IV CONT 4 mg/hr .[id number] USAMA 8 mls/hr 4 MG/HR Administration Morphine Sulfate 2 mg 06/19/25 17:33 06/20/25 11:31 Morphine Sulfate (*Crx) 4 Mg/Ml Inj IV PUSH 2 mg Q30M PRN Administration COMFORT Ondansetron HCl 4 mg 06/19/25 01:30 Ondansetron Inj 4 Mg/2 Ml Vial IV PUSH Q4H PRN Nausea Radiology Results: ITS Impressions Chest/Abdomen/Pelvis CT 06/19/25 07:18 IMPRESSION: 1. Diffuse lung disease, consistent with pulmonary edema versus pneumonia superimposed on chronic interstitial lung disease. 2. Small pleural effusions. 3. 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 4. Stercoral colitis. Head CT 06/19/25 07:32 IMPRESSION: 1. 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
--- NOTE | 2025-06-20 17:20 | PC.NURSE ---
Patient at 1720.
--- NOTE | 2025-06-21 14:17 | PM.DDS ---
Discharge Summary Date and Time Date of : 06/20/25 Time of : 17:20 Provider Pronounced By: 2 RNs Name of First RN That Pronounced: Ale Loja RN Name of Second RN That Pronounced: Teresa Mims RN Probable Cause of Probable Cause of : Acute hypoxemic respiratory failure Congestive heart failure exacerbation Colitis Summary Hospital Course: 75-year-old female past medical history of diabetes type 2, hypertension, CHF, hypothyroidism who was recently managed for severe sepsis, acute renal failure, colitis, leukocytosis, and discharged yesterday from the hospital return this morning after she was found with altered mental status mostly unresponsive also found to be hypotensive, was brought to ER by EMS. At the time of this encounter patient was alert and oriented x3, hypertension was brought to the ER because of shortness of breath. Otherwise patient was noncommittal with flat affect. ER about notable for heart rates 101, respiratory 24, saturation 96% high-flow nasal cannula oxygen 90% and 55 flow rate Labs notable for WBC 17.1, improvement from yesterday of 20.5, hemoglobin 7.7, ESR 150, ABG 7.475/25.9/64.2/18.6. CT head no acute changes. CT chest and abdomen pelvis showed diffuse lung disease consistent with pulmonary edema versus pneumonia superimposed on chronic interstitial lung disease, small pleural effusions, a stercoral colitis. Patient started antibiotics and IV fluid prior to admission. Patient was transitioned to comfort care according to her wishes. Family was informed She finally and peacefully passed at 1720. Family informed. Additional Data Confirmation of as documented by pronouncing clinician: Pupillary Reflex, Palpable Pulses, Response to Stimuli, Heart Tones and Breath Sounds Name of Provider Notified: [place] Time Provider Notified: 17:30 Health Promotion Educator Notified: Yes Date [facility] Notified of : 06/20/25 Time [facility] Notified of : 17:34
[2025-06-23 11:41] LABS: Liters per Minute 2.0 LPM
== END 2025-06-20 17:20 | disposition expired | DRG 189 ==
LOC: ANHED 23:31 → ANHIMU 06-19 04:24 → ANH3MEDSUR 06-22 15:29 → ANHIMU 06-22 15:29
PROVIDERS: Admitting Provider Internal Medicine; Emergency Provider Student in an Organized Health Care Education/Training Program; Visit Provider Internal Medicine
DX: J96.01 Acute respiratory failure with hypoxia (principal); I50.1 Left ventricular failure, unspecified; K52.9 Noninfective gastroenteritis and colitis, unspecified; I11.0 Hypertensive heart disease with heart failure; E11.65 Type 2 diabetes mellitus with hyperglycemia; E78.5 Hyperlipidemia, unspecified; F41.1 Generalized anxiety disorder; M79.605 Pain in left leg; M79.604 Pain in right leg; F32.A Depression, unspecified; I25.2 Old myocardial infarction; E03.9 Hypothyroidism, unspecified; R41.82 Altered mental status, unspecified; I87.2 Venous insufficiency (chronic) (peripheral); Z66 Do not resuscitate
CPT/HCPCS: 36415; 36600; 70450; 71260; 74177; 80053; 80143; 80179; 81001; 82375; 82805; 83050; 83605; 84145; 84443; 85018; 85025; 85610; 85652; 85730; 86140; 87040; 87086; 93005; 96365; 96375; 99291; A9270; J0692; J1596; J2270; J2312; J3360; J3373; J7120; P9047; Q9967